=== PATIENT | female | born 1975 | race Caucasian/White ===

== ENCOUNTER 2022-04-11 17:15 | Observation (INO) | payer BC, SELFPAY ==
[2022-04-08 12:44] LABS: Magnesium 2.2 mg/dL (1.6-2.6)
--- NOTE | 2022-04-10 22:09 | PCM.HP.BLA ---
History and Physical Date of Admission: 04/11/22 HISTORY OF PRESENT ILLNESS 46 year old woman presents for evaluation of her breasts after having genetic testing done in 2019.? The testing was done because of a family history of breast cancer (Grandmother and Aunt).? The genes tested were DEISY, BRCA1, BRCA2, CDH1, CHEK2, PALB2, PTEN, and TP53.? The testing was done by [employer] 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 The conclusion was high risk for female breast cancer and elevated risk for pancreatic cancer.? Before deciding on having any surgery to her breasts, she wanted to due her own due diligence.? Then COVID hit.? Earlier this year she was told she was at high risk for ovarian cancer due to this mutation and she underwent removal of both ovaries.? She already had a hysterectomy.? Because of this, she is concerned about getting breast cancer and has developed cancerphobia.? She comes in today to further discuss her genetic testing results and to discuss surgical options for treatment.? Her last mammogram was in May,, in [place].? Patient states it was normal.? It showed very dense breast parenchyma bilaterally.? No obvious mass lesion.? Palpable nodule left breast 2 olock position in subcutaneous tissue such as sebaceous cyst.? Benign, no evidence malignancy.? We have received medical approval for her breast reconstruction surgery.? She has decided on proceeding with bilateral prophylactic mastectomy with prepectoral breast implant reconstruction possible placement saline tissue street railway line installer and acellular dermal matrix graft.? Initially she wanted simple mastectomies which would include the nipple because of the higher risk of developing breast cancer.? After thinking it over, she would like to proceed with subcutaneous mastectomies which would keep the nipples.? Some breast tissue is needed to preserve the blood supply to the nipple.? She would need to get mammograms because of that.? Patient voiced understanding. PAST MEDICAL HISTORY Acquired absence of bilateral breasts and nipples Alcohol use Cancer phobia Disproportion of reconstructed breast Family history of breast cancer Former smoker Frequent headaches Gastric reflux Genetic 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 Migraine headache Monoallelic mutation of DEISY gene Pneumonia Prophylactic ovary removal Ptosis of both breasts Wears contact lenses Wears glasses PAST SURGICAL HISTORY History of bilateral oophorectomy History of bladder surgery History of hysterectomy ALLERGIES Penicillins [PCN] MEDICATIONS ibuprofen omeprazole sumatriptan succinate valacyclovir FAMILY HISTORY Grandmother - Breast cancer Aunt - Breast cancer Father - Diabetes SOCIAL HISTORY Smoking Status:? Former smoker alcohol intake:? current substance use type:? does not use REVIEW OF SYSTEMS General - Denies fever, fatigue, and weight loss. Eyes - Denies cataracts and glaucoma. ENT - Denies nasal congestion and sore throat. Endocrine - Denies excessive thirst and urination.? Has family history of breast cancer (Grandmother and Aunt).? She had genetic testing which showed an abnormal DEISY mutation.? Had hysterectomy and earlier this year, she had bilateral oophorectomy. Skin - Denies suspicious lesions and skin cancer. Musculoskeletal - Denies joint pain, joint stiffness, weakness of muscles and joints, back pain, and arthritis. Neuro - Has headaches. Cardiovascular - Denies chest pain, fatigue, and shortness of breath with exertion. Psych - Denies anxiety and depression. Respiratory - Denies chronic cough and shortness of breath.? Patient is a former smoker. Gastrointestinal - Denies nausea, vomiting, diarrhea.? Has constipation. Hematologic - Denies abnormal bruising and bleeding. Genitourinary - Denies hematuria and urinary frequency. PHYSICAL EXAMINATION General - Alert and Oriented.? Her bra size is 36 D. HEENT - PERRL. EOMI.? Throat is clear. Neck - Supple and nontender.? No cervical adenopathy. Breasts - soft and symmetrical.? No breast masses palpable.? No axillary adenopathy.? She has decreased superior pole fullness bilaterally.? ? Nipple is located at the inframammary fold.? She states the decreased superior pole fullness started after her .? The also decreased her shape as well with decreased projection.? She has pseudoptosis with the breast tissue ptotic but the nipple is not.? The horizontal width of the breasts are 15 cm bilaterally.? The distance from the nipple to the inframammary fold is 8 cm on the left and 7 cm on the right.? She has good skin elasticity.? There are no stretch ferro.? The nipple areolar complex diameter is 5 cm bilaterally. Lungs - Clear to auscultation. Heart - Regular rate and rhythm. Abdomen - Soft and nondistended. Extremities - FROM. No axillary adenopathy.? Radial pulses are palpable. Neuro - CN II-XII grossly intact. Psych - Normal mood and affect. ASSESSMENT 1.? 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 2.? Genetic susceptibility to breast cancer. 3.? Cancer phobia. 4.? Family history of breast cancer. 5.? History of prophylactic bilateral oophorectomy. 6.? Planned acquired absence bilateral breasts and nipples. 7.? Planned disproportion reconstructed breasts. 8.? Planned prophylactic bilateral breast removal. 9.? Pseudoptosis bilateral breasts. 10.? Former smoker. PLAN Genetic testing result reviewed.? It states she is at high risk for developing breast cancer.? High risk is defined as the absolute risk of cancer is approximately 5% or higher and the increase in risk over the general population is approximately 3-fold or higher and there is significant data from multiple studies supporting this cancer risk estimate.? For patients up to age 50 (she is 46), the cancer risk is up to 9% and the cancer risk for the general population is 1.9%.? After her recent prophylactic bilateral oophorectomy, she started to become nervous about the increased risk of developing breast cancer.? This led to her developing cancer phobia. With this degree of high risk severity for developing breast cancer, I recommend prophylactic mastectomy followed by reconstruction.? Prophylactic mastectomy can be either simple or subcutaneous (which includes the nipple).? Because of this high risk, I recommended simple mastectomies.? We can reconstruct her nipples later.? If we leave the nipples there will be more breast tissue preserved to maintain blood supply to the nipple.? Therefore she would still need mammograms and she would still be at higher risk.? Initially she was in agreement to proceed with the simple mastectomies.? After further thought, she has decided to keep the nipples, so would proceed with subcutaneous mastectomies.? She understands that some breast tissue is still present and mammograms would be necessary.? She voiced understanding and wishes to proceed. She is interested in a one stage breast reconstruction if possible. The two stage breast reconstruction is a two stage placement of a saline tissue street railway line installer (smooth) followed by removal of the street railway line installer with replacement cohesive gel implant and placement of acellular dermal matrix graft. The timing for the second procedure is about 3 months.? This option is safer because at the time of the implant replacement, the breast skin flaps have already healed so there is much less risk of a wound healing problem that could lead to exposure of the implant. A single stage placement of a cohesive gel implant is also possible which would be done on top of the muscle (prepectoral position) and covered completely by acellular dermal matrix graft.? The benefit is the patient wakes up with a breast.? She would be flat if a tissue street railway line installer was placed.? For a single stage procedure, we sometimes combine the mastectomy incision into a breast lift incision if there is some ptosis because the nipple is excised with the specimen.? This usually entails a horizontal and vertical incision and the creation of the Tzone.? This is a weak spot that can cause wound healing issues especially if a implant is placed at the same time since in order to have projection, there will be some pressure from the implant on the Tzone area.? One way to minimize this risk is to decide what the best size implant is based on the breast pocket, then go down to the next smallest implant for the final size.? The smaller implant would have less pressure on the Tzone area.? That decision is made in the operating room.? The patient is a D cup and would like to stay as a D cup. ? The mastopexy, if needed, would help to shape the skin around the implant.? However, she is now wishing to keep the nipples with a subcutaneous mastectomy.? Moving the nipple in a breast lift would increase the risk of vascular issues with the nipple.? So during surgery, I will place the biggest sizer that fits the pocket until the maximize size is reached.? If there is good draping of the skin around the implant, then there would be no need for a breast lift as well.? If it appears that there is residual loose skin draping that would benefit from a breast lift, then would proceed with the placement of a saline tissue street railway line installer.? With the expansion, the nipple may elevate enough that? no breast lift would be necessary when the final cohesive gel implant is placed.? A breast lift mastectomy incision removes some loose skin thus making the skin envelope smaller and leading to a less ptotic, perkier breast.? Before surgery, when the patient states her bra size, a lot of that is excess skin filling the bra.? A breast lift makes the breast firmer and elevates the breast giving it better shape and contour.? This sometimes leads to a smaller bra size but a better looking breast.? So at the time of surgery, if the largest implant placed doesn't give her a D cup when she is sat upright, then I would proceed with placement of a saline tissue street railway line installer.? This would expand the skin and breast pocket so a larger implant can be placed after the street railway line installer is removed. She understands that she may or may not wake up with a breast mound.? If a saline tissue street railway line installer is placed, then additional surgery would be necessary to replace the street railway line installer with a cohesive gel implant.? The chance of waking up with a breast mound is higher if the nipple is excised with the mastectomy since there would be no worries about the vascularity of the nipple.? The major change in her decision making is the desire to keep the nipples.? We have received medical approval for the bilateral prophylactic mastectomies followed by reconstruction with prepectoral cohesive gel implants or placement of a saline tissue street railway line installer and subsequent tissue street railway line installer removal with replacement cohesive gel implant.? It is scheduled for 04/11/22. Surgery would be done under general anesthesia with a surgical observation overnight stay in the hospital. She will have drains in for 10-14 days and be maintained on antibiotics until the drains are removed. Tissue that is removed at surgery will be sent to Pathology for analysis to rule out carcinoma. Her last mammogram was done in [place] in May,.? It showed dense breast parenchyma bilaterally.? No obvious mass lesion.? Palpable nodule left breast 2 oclock position in subcutaneous tissue such as sebaceous cyst.? Benign, no evidence malignancy. I thought she was receiving mammograms every 6 months, but it was every 12 months.? Instead she was having PAP smears every 6 months because of abnormal cells. Patient was informed of the risks and complications of the procedure including alternatives to surgery.? These were discussed with the patient personally.? Patient voices understanding and wishes to proceed. Some of the risks and complications were included in a form from the [employer]. Potential risks and complications included but not inclusive of bleeding, infection seroma, hematoma, bruising, swelling, prolonged need for drains, loss of sensation to skin, partial or complete loss of skin flap and/or nipple graft, wound breakdown, need for wound care, poor scarring, poor aesthetic outcome, intra operative cardiac or neurologic events, DVT, PE, and reaction to anesthesia. After further thought, I had another discussion with the patient a few days ago. The patient's biggest priority is one stage procedure. This priority can be more easily achieved if the nipples are removed. Reshaping the breast over the implant is easier especially using a mastopexy type incision for the mastectomy because there is no worry where the nipple is located after the placement of the implant since the nipples would be removed. The breast tissue would be removed from the undersurface of the nipple, and the nipple can be placed back on the breast in the appropriate position as a free nipple graft. The healed nipple graft would look more real because of the texture difference between the smooth skin and the rougher areolar complex. The patient may be interested in the free nipple graft and will let me know the morning of surgery. And if there is some healing discoloration, then intradermal tattooing can be done to help smooth out the coloration. Assessment & Plan Assessment/Plan (1) Monoallelic mutation of DEISY gene: (2) Genetic 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: (3) Cancer phobia: (4) Family history of breast cancer: (5) Prophylactic ovary removal: (6) Acquired absence of bilateral breasts and nipples: (7) Disproportion of reconstructed breast: (8) Prophylactic breast removal: (9) Ptosis of both breasts: (10) Former smoker:
[2022-04-11] VITALS (9 sets, daily range): BP systolic 104–133; BP diastolic 44–76; PULSE 81–106; RESP 16–18; TEMP 36.4–37.3; O2SAT 92–98; BMI 27.3
[2022-04-11] MEDS: Scopolamine 1mg/72hr Patch 1 PATCH TD (06:51)
[2022-04-11] MEDS: Lactated Ringers 1,000 ML 40 ML IV ×3 (06:51→10:36)
[2022-04-11] MEDS: Gabapentin 600 MG Tablet PO (06:52)
[2022-04-11] MEDS: Acetaminophen 500 MG Tablet 1000 MG PO ×2 (06:52→19:05)
[2022-04-11 07:20] LABS: Bedside Glucose 105 mg/dL (74-106)
--- NOTE | 2022-04-11 07:30 | BR_PTH ---
PATIENT: SANG MAIN LOC: MS3 U#:[id number] AGE/SX: 46/F ROOM: [facility] [place] RE04/11/[address]: Dr. Jarret Barrett MD : 1975 BED: 1 DIS: 04/14/2022 SPEC #: [id number] RECD: 04/11/22 19:06 STATUS: RYLAND GREY #: [id number] SHIRA: 04/11/22 07:[address]: Jarret Barrett DEPT: SURGICAL PATHOLOGY RECD BY: Swathi Altman ENTERED: 04/14/22 08:43 SP TYPE: MAMOPLASTY OTHR DR: Dr. Amanda Hyatt MD Tissues: A - Right breast, NOS B - Left breast, NOS Procedures: Surgery Specimen Level V HEADER OPERATION: Prophylactic mastectomy, immediate breast reconstruction PRE-OP DIAGNOSIS: DEISY mutation from breast genetic testing TISSUE SUBMITTED: A ? Right breast tissue, B ? Left breast tissue MICROSCOPIC DIAGNOSIS A. Right breast, partial mastectomy: Involutional change. Mild non-proliferative fibrocystic change. B. Left breast, partial mastectomy: Involutional change. Mild non-proliferative fibrocystic change. Focal benign microcalcifications. AM:daylin 04/15/2022 MICROSCOPIC DESCRIPTION Slides are reviewed. GROSS DESCRIPTION A - Received in fixative is one container labeled with the patient's name and designated right breast tissue. The specimen consists of multiple irregular fragments of bagley-yellow fatty tissue ranging in size from 1 to 18 cm and in aggregate weighing 810 gm. Unremarkable fragments of skin are present on several pieces. Serial sections reveal yellow to white cut surfaces. No distinct mass lesion is identified. Learning Support Assistant sections are submitted in five cassettes. B - Received in fixative is one container labeled with the patient's name and designated left breast tissue. The specimen consists of multiple irregular fragments of bagley-yellow fatty tissue ranging in size from 1 to 12 cm and in aggregate weighing 430 gm. Unremarkable fragments of skin are present on several pieces. Serial sections reveal yellow to white cut surfaces. No distinct mass lesion is identified. Learning Support Assistant sections are submitted in five cassettes. / AM:daylin 04/14/2022 TC:5 CPT: 73485 x2
[2022-04-11] MEDS: Cefazolin 2 GM in 0.9% Normal Saline 100 ML IV (07:44)
[2022-04-11] MEDS: Lidocaine 1% /Epi 1:100 (20ml) 20 ML Vial (08:23)
[2022-04-11] MEDS: Lactated Ringers 1,000 ML 60 ML IV ×2 (16:00→20:26)
[2022-04-11] MEDS: Mupirocin Ointment 22gm Tube 1 APPLIC (16:22)
--- NOTE | 2022-04-11 16:36 | OP.PCM_ITS ---
Problems Associated Problem List Diagnoses (1) Monoallelic mutation of DEISY gene: (2) Genetic 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: (3) Cancer phobia: (4) Family history of breast cancer: (5) Prophylactic ovary removal: (6) Acquired absence of bilateral breasts and nipples: (7) Disproportion of reconstructed breast: (8) Prophylactic breast removal: (9) Ptosis of both breasts: (10) Former smoker: Report of Operation Date of Procedure: 04/11/22 Pre-Operative Diagnosis: 1. 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 2. Genetic susceptibility to breast cancer. 3. Cancer phobia. 4. Family history of breast cancer. 5. History of prophylactic bilateral oophorectomy. 6. Planned acquired absence bilateral breasts and nipples. 7. Planned disproportion reconstructed breasts. 8. Planned prophylactic bilateral breast removal. 9. Pseudoptosis bilateral breasts. 10. Former smoker. Post-Operative Diagnosis: Same. Surgery/Procedure Performed:: 1. Prophylactic mastectomy right breast. 2. Immediate right breast reconstruction with placement prepectoral cohesive gel implant (700 ml) and placement FlexHD acellular dermal matrix graft (23 x 26 cm) and mastopexy. 3. Right nipple reconstruction with placement of free nipple graft. 4. Prophylactic mastectomy left breast. 5. Immediate left breast reconstruction with placement prepectoral cohesive gel implant (700 ml) and placement FlexHD acellular dermal matrix graft (23 x 26 cm) and mastopexy. 6. Left nipple reconstruction with placement of free nipple graft. Description of Surgical Findings:: 46 year old woman presents for evaluation of her breasts after having genetic testing done in 2019.? The testing was done because of a family history of breast cancer (Grandmother and Aunt).? The genes tested were DEISY, BRCA1, BRCA2, CDH1, CHEK2, PALB2, PTEN, and TP53.? The testing was done by [email or web address] 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 The conclusion was high risk for female breast cancer and elevated risk for pancreatic cancer.? Before deciding on having any surgery to her breasts, she wanted to due her own due diligence.? Then COVID hit.? Earlier this year she was told she was at high risk for ovarian cancer due to this mutation and she underwent removal of both ovaries.? She already had a hysterectomy.? Because of this, she is concerned about getting breast cancer and has developed cancerphobia.? She comes in today to further discuss her genetic testing results and to discuss surgical options for treatment.? Her last mammogram was in May,, in [place].? Patient states it was normal.? It showed very dense breast parenchyma bilaterally.? No obvious mass lesion.? Palpable nodule left breast 2 olock position in subcutaneous tissue such as sebaceous cyst.? Benign, no evidence malignancy.? We have received medical approval for her breast reconstruction surgery.? She has decided on proceeding with bilateral prophylactic mastectomy with pre pectoral breast implant reconstruction possible placement saline tissue flexographic press set up operator and acellular dermal matrix graft.? Initially she wanted simple mastectomies which would include the nipple because of the higher risk of developing breast cancer.? After thinking it over, she would like to proceed with subcutaneous mastectomies which would keep the nipples.? Some breast tissue is needed to preserve the blood supply to the nipple.? She would need to get mammograms because of that.? Patient voiced understanding. She understands that if a mastopexy is needed for shape and contour of the breast, then the nipples would be removed with the mastectomy. Free nipple grafts can then be placed. She voiced understanding and wished to proceed. Patient was informed of the risks and complications of the procedure including alternatives to surgery. These were discussed with the patient personally. Patient voices understanding and wishes to proceed. Some of the risks and complications were included in a form from the [employer]. Potential risks and complications included but not inclusive of bleeding, infection, seroma, hematoma, bruising, swelling, prolonged need for drains, loss of sensation to skin, partial or complete loss of skin flap and/or nipple graft, wound breakdown, need for wound care, poor scarring, poor aesthetic outcome, intra operative cardiac or neurologic events, DVT, PE, and reaction to anesthesia. IV Fluids - 3500 ml. Urine Output - 1300 ml. I used [place] MemoryGel Smooth High Profile Xtra Breast Implant, (700 ml). Reference Number - [id number]. Lot Number - [id number]. Serial Number - [id number]. Expiration - September 08, 2023, (in the Right Breast). I used [place] MemoryGel Smooth High Profile Xtra Breast Implant, (700 ml). Reference Number - [id number]. Lot Number - [id number]. Serial Number - [id number]. Expiration - December 28, 2026, (in the Left Breast). I used MTF FlexHD Acellular Dermal Matrix Graft, Pliable PRE, X-Large, Thin (23 x 26 cm, one in each breast) Catalog Number - [id number]. Serial Number - [id number]. Expiration - May 15, 2023, (in the Right Breast). Catalog Number - [id number]. Serial Number - [id number]. Expiration - August 01, 2024, (in the Left Breast). I used AxioFill Placental Connective Tissue Powder, (500 mg x2, one in each breast). Catalog Number - [id number]. Lot Number - [id number]. Expiration - November 14, 2026, (in the Right Breast). Catalog Number - [id number]. Lot Number - [id number]. Expiration - November 14, 2026, (in the Left Breast). I used Maryana absorbable hemostat, (I used 4 vials, 2 in each breast). Reference Number - [id number]. Lot Number - [id number]. Expiration - November 10, 2026, (in the Right Breast). Reference Number - [id number]. Lot Number - [id number]. Expiration - October 10, 2026, (one in the Right Breast and 2 in the Left Breast). Surgeon: Jarret Barrett MD selling specialist: Frank Maher RNFA. selling specialist: Anne-Marie Andino RNFA Type of Anesthesia: General Anesthesiologist: Giancarlo Reece MD and Manuel Fuller MD and Yani Gramajo CRNA Specimen's removed: 1. Left breast tissue to Pathology. 2. Right breast tissue to Pathology. Drains: Anjel x4 (2 in each breast). Estimated Blood Loss (mL): 150. Fluids Replaced: 4800 ml (IV fluids 3500 ml, Urine Output 1300 ml). Description of Procedure: In the preop area, the patient was placed in the sitting position and preoperative markings were made.? The sternum midline was marked down to the umbilicus.? The inframammary folds were marked bilaterally.? The midclavicular line was then marked down to the nipple, then from the nipple to the inframammary fold.?? The patient was then placed in the supine position and taken to the operating room and placed under general anesthesia and her breasts were prepped and draped in usual fashion.? Ioban draping was also used.? SCDs were placed for DVT prophylaxis.? Perioperative antibiotics were given intravenously.? A White catheter was also placed. The preoperative markings were tattooed with Methylene Blue and a 25 gauge needle. Using Xylocaine with epinephrine, the horizontal marking 1 cm above the inframammary folds were infiltrated. I started on the right breast and then went to the left breast. I made an incision into the subcutaneous tissue. Putting the breast skin flap on stretch, I proceeded with the prophylactic mastectomy by dissecting the breast tissue superiorly at the clavicle and medially at the sternum and inferiorly at the inframammary fold and laterally at the anterior axillary line. A small cuff of breast tissue was left underneath the nipple to maintain viability. I then placed an 800 ml [place] Ultra High Profile sizer into the right breast pocket and temporarily sutured the incision with 3-0 Vicryl running suture. I sat the patient up and the right breast showed good shape and contour with the nipple in a good position. The patient was placed back in the supine position. I then proceeded with the prophylactic mastectomy on the left. I made an incision into the subcutaneous tissue. Putting the breast skin flap on stretch, I proceeded with the prophylactic mastectomy by dissecting the breast tissue superiorly at the clavicle and medially at the sternum and inferiorly at the inframammary fold and laterally at the anterior axillary line. A small cuff of breast tissue was left underneath the nipple to maintain viability. I then placed an 800 ml [place] Ultra High Profile sizer into the left breast pocket and temporarily sutured the incision with 3-0 Vicryl running suture. I sat the patient up and the left breast showed more ptosis as the breast pocket was bigger. The left breast looked larger than the right. I then placed a 750 ml [place] Ultra High Profile sizer into the left breast pocket and temporarily sutured the incision with 3-0 Vicryl running suture. The patient was placed in the sitting position again, and the ptosis looked worse with the smaller sizer. It was decided that a mastopexy would be needed on the left breast. The patient was placed back in the supine position and the sizer was removed. A 45 mm template was placed on the nipple and two circular incisions were made around the nipple's edge and around the inner template marking. The nipple was sharply removed from the breast as a full thickness free nipple graft. It was placed in saline. A vertical incision was made down to the horizontal incision. The underlying cuff of breast tissue that was left to supply vascularity to the nipple was then excised and sent with the rest of the left breast to Pathology. I temporarily closed the vertical incision with 3-0 Vicryl interrupted sutures. A 3-0 Vicryl suture was used to secure the medial and lateral breast flaps to the midline of the horizontal incision. The excess skin from the breast flaps were excised and the horizontal incision was then temporarily closed with 3-0 Vicryl simple running suture. Markings were made to aid in wound closure at the end of the procedure. The sutures were removed from the horizontal incision and I first place [place] High Profile sizers and then [place] High Profile Xtra sizers into the left breast pocket and temporarily closed the incision with 3-0 Vicryl suture. Sitting the patient up, the 750 ml sizer was too tight and the 650 ml sizer was a good fit without too much tension. I then tried the 700 ml High Profile Xtra sizer which was also a good fit without too much tension and provi ded slightly more projection. It was decided that the 700 ml High Profile Xtra cohesive gel implant would be used. The High Profile sizers were a little flatter with a little more fullness laterally and slightly less projection. I then went to the right breast to do the mastopexy. A 45 mm template was placed on the nipple and two circular incisions were made around the nipple's edge and around the inner template marking. The nipple was sharply removed from the breast as a full thickness free nipple graft. It was placed in saline. A vertical incision was made down to the horizontal incision. The underlying cuff of breast tissue that was left to supply vascularity to the nipple was then excised and sent with the rest of the right breast to Pathology. I temporarily closed the vertical incision with 3-0 Vicryl interrupted sutures. A 3-0 Vicryl suture was used to secure the medial and lateral breast flaps to the midline of the horizontal incision. The excess skin from the breast flaps were excised and the horizontal incision was then temporarily closed with 3-0 Vicryl simple running suture. Markings were made to aid in wound closure at the end of the procedure. The sutures were removed from the horizontal incision and I placed the 700 ml High Profile Xtra sizer into the right breast and temporarily closed the horizontal incision with 3-0 Vicryl suture. I marked out a vertical pedicle of 5 cm and placed the new location of the nipple with the 45 mm template. The patient was placed in the sitting position. Good breast shape and contour was noted. Good placement of the nipple location was noted. Patient was placed back in supine position. The sutures were removed and the sizers were removed. The breast wounds were irrigated with Irrisept 0.05% Chlorhexidine followed by saline irrigation. Hemostasis was obtained with electrocautery. I sprayed Maryana absorbable hemostat into both breast pockets to minimize seroma formation. I used 2 vials in each breast. I then placed two size 15 Anjel drains into each breast through separate stab incisions laterally and secured to the skin with 3-0 Nylon suture. The vertical incision was then closed with 3-0 Monocryl interrupted sutures. I changed my gloves and the [place] MemoryGel Smooth Round High Profile Xtra breast implant, 700 ml, was placed on the back table and covered with Betadine. The FlexHD acellular dermal matrix graft Pliable PRE, X-Large, Thin, sized 23 x 26 cm was placed on the back table. I covered the implant with the biologic graft and secured with a 3-0 Vicryl purse string suture using a malleable to protect the implant. This was done for both the left breast implant and the right breast implant. I placed the implants back in the Betadine. I placed 3-0 Vicryl sutures in the biologic graft to secure to the chest wall, 4 in each biologic graft. The implant and biologic graft covering were placed in the breast pockets bilaterally in a prepectoral position. The 3-0 Vicryl sutures were then secured to the chest wall inferiorly and laterally. The horizontal incision was then closed by using 2-0 Vicryl from the vertical incision to the midline of the horizontal incision in the deep subcutaneous tissue and Carlyn's fascia for added support. I also placed a few deeper sutures on either side of the Tzone area as well. I then placed AxioFill placental connective tissue powder into the Tzone area of each breast to aid in wound healing. I used 500 mg in each breast. I then closed the deep dermis and subcutaneous tissue with 3-0 Monocryl interrupted sutures. The horizontal incision was then closed with 4-0 V lock unidirectional barbed running subcuticular suture. The vertical incision skin was approximated with 4-0 Prolene simple interrupted sutures. 4-0 Prolene vertical mattress interrupted sutures were also placed next to ther Tzone area on the horizontal incision. Using a vertical limb length of 5 cm, I marked out the new location for the nipple grafts. Incisions were made and the skin was de-epithelialized to maintain a vascular dermal bed for the free nipple grafts. The free nipple grafts were then placed on the dermal beds and secured to the skin edge with 4-0 Chromic simple interrupted sutures. 4-0 Chromic sutures were also used for central quilting stabilization. The needle was placed into the dermal bed superficially under direct visualization. The patient was placed in the sitting position and good shape and contour was noted. Good breast symmetry was noted. No vascular compromise was noted on the breast skin flaps. Good positioning of the nipples were noted. The patient was placed back down in the supine position. Antibiotic ointment was placed on the nipple grafts followed by Xeroform gauze and cotton balls soaked in saline and secured to the skin edge with 4-0 Nylon tie over stent suture dressing. Histoacryl skin tissue adhesive was then placed on the vertical and horizontal incisions. Kerlix gauze was placed on the breasts followed by a surgical bra. Patient tolerated the procedure well and was sent to PACU in satisfactory condition. Patient will be sent upstairs for continued postop care. Grafts/Implants Used: [place] MemoryGel implants x2, FlexHD ADM graft x2, AxioFill x2, Maryana x4 Procedure Start Time: 08:23 Procedure Stop Time: 16:33 Complications None. Admit VTE Documentation VTE Present on Admission: No VTE Mechan Device Prophylaxis: SCD's VTE Pharm Prophylaxis ordered?: Yes Addendum Addendum: Surgery Charges CPT - 32981 ICD-10 - Z15.89, Z15.01, F40.298, Z80.3, Z40.02, Z90.13, N65.1, Z40.01, N64.81, Z87.891 [id number] Z15.89, Z15.01, F40.298, Z80.3, Z40.02, Z90.13, N65.1, Z40.01, N64.81, Z87.891 [id number] Z15.89, Z15.01, F40.298, Z80.3, Z40.02, Z90.13, N65.1, Z40.01, N64.81, Z87.891 [id number] Z15.89, Z15.01, F40.298, Z80.3, Z40.02, Z90.13, N65.1, Z40.01, N64.81, Z87.891 13773 Z15.89, Z15.01, F40.298, Z80.3, Z40.02, Z90.13, N65.1, Z40.01, N64.81, Z87.891 [id number] Z15.89, Z15.01, F40.298, Z80.3, Z40.02, Z90.13, N65.1, Z40.01, N64.81, Z87.891 [id number] Z15.89, Z15.01, F40.298, Z80.3, Z40.02, Z90.13, N65.1, Z40.01, N64.81, Z87.891 [id number] Z15.89, Z15.01, F40.298, Z80.3, Z40.02, Z90.13, N65.1, Z40.01, N64.81, Z87.891
[2022-04-11] MEDS: oxyCODONE 5 MG Tablet PO (20:52)
[2022-04-11] MEDS: Cefazolin 1 GM/50 ML BAG IV (20:53)
[2022-04-11] MEDS: Acyclovir 200 MG Capsule 400 MG PO (20:53)
[2022-04-11] MEDS: Docusate Sodium 100 MG Capsule PO (20:53)
[2022-04-11] MEDS: Heparin Injection (Vial) 5,000 UNIT/ML VIAL 5000 UNIT SC (20:53)
[2022-04-12] VITALS (8 sets, daily range): BP systolic 95–126; BP diastolic 53–75; PULSE 61–93; RESP 14–18; TEMP 36.8–37.3; O2SAT 94–98
[2022-04-12] MEDS: Acetaminophen 500 MG Tablet 1000 MG PO ×5 (00:22→23:38)
[2022-04-12] MEDS: Cefazolin 1 GM/50 ML BAG IV ×3 (05:36→22:29)
[2022-04-12 06:51] LABS: Hematocrit 28.7 % (37-47); Hemoglobin 9.4 g/dL (12.0-15.0); Mean Corp Hgb Conc 32.8 g/dL (32-36); Mean Corpuscular Hgb 32.2 pg (27.0-32.0); Mean Corpuscular Volume 98.3 fL (81-99); Mean Platelet Vol. 10.3 fl (6.2-12.0); Platelet Count 158 K/mm3 (150-450); RBC Distribution Width CV 12.9 % (11.6-14.6); RBC Distribution Width SD 46.1 fl (35.1-43.9); Red Blood Count 2.92 M/mm3 (4.2-5.4)
[2022-04-12] MEDS: oxyCODONE 5 MG Tablet PO ×3 (07:40→16:19)
[2022-04-12] MEDS: Gabapentin 100 MG Capsule 200 MG PO ×3 (08:23→16:19)
[2022-04-12] MEDS: Acyclovir 200 MG Capsule 400 MG PO ×2 (08:23→21:03)
[2022-04-12] MEDS: Docusate Sodium 100 MG Capsule PO ×2 (08:23→21:03)
[2022-04-12] MEDS: Pantoprazole Sodium 40 MG Tablet PO (08:23)
[2022-04-12] MEDS: Heparin Injection (Vial) 5,000 UNIT/ML VIAL 5000 UNIT SC ×2 (08:24→21:02)
[2022-04-12] MEDS: Ensure Surgery 237 ML LIQUID PO ×3 (08:25→16:24)
[2022-04-12 08:35] LABS: Anion Gap 4 (5-15); BUN 10 mg/dL (7-18); BUN/Creat Ratio 13.3 RATIO (10-20); Calcium,Total 8.4 mg/dL (8.5-10.1); Chloride 108 mmol/L (98-107); Creatinine, Serum 0.75 mg/dL (0.55-1.02); EST Glomerular Filtration Rate 87 mL/min (>60); Est Glom Filt Rate - Afr Amer 106 mL/min (>60); Estimated Creatinine Clearance 85.88 ml/min; Glucose 123 mg/dL (74-106); Potassium 4.1 mmol/L (3.5-5.1); Prealbumin 18.4 mg/dL (20.0-40.0); Sodium Level 143 mmol/L (136-145)
[2022-04-12] MEDS: Lactated Ringers 1,000 ML 60 ML IV (14:07)
[2022-04-12] MEDS: diazePAM 5 MG Tablet PO (16:19)
--- NOTE | 2022-04-12 20:24 | PCM.PN.SRG ---
Subjective Subjective Postop #1 Patient has incisional pain. White catheter was removed. She is voiding without difficulty. Objective Data Objective Data Vital Signs: Vital Signs Temp Pulse Resp BP Pulse Ox O2 Del Method O2 Flow Rate 98.2 F 82 18 126/75 H 95 Nasal Cannula 3 04/12/22 16:35 04/12/22 16:35 04/12/22 16:35 04/12/22 16:35 04/12/22 16:35 04/12/22 16:35 04/12/22 16:35 Oxygen Flow Rate (L/min) 3 Oxygen Delivery Method Nasal Cannula Weight: 169 lb 12.095 oz Body Mass Index (BMI) 27.3 Intake & Output: Intake and Output for Last 24 Hours 04/10/22 04/11/22 04/12/22 23:59 23:59 23:59 Intake Total 3442 / 3442 1800 / 1800 Output Total 1650 / 2415 1582 / 1582 Balance 1792 / 1027 218 / 218 Drainage 130 ml yesterday, 60 ml today. Prealbumin is 18.4. Encourage nutritional supplementation with protein to help the healing process. Lab / Micro Data Attestation: I reviewed the patient's lab results. Result Diagrams: 04/12/22 06:30 04/12/22 06:30 Labs: Laboratory Results - last 24 hr 04/12/22 06:30: WBC 10.0, RBC 2.92 L, Hgb 9.4 L, Hct 28.7 L, MCV 98.3, MCH 32.2 H, MCHC 32.8, RDW Std Deviation 46.1 H, RDW Coeff of Khushi 12.9, Plt Count 158, MPV 10.3 04/12/22 06:30: Sodium 143, Potassium 4.1, Chloride 108 H, Carbon Dioxide 31.0, Anion Gap 4 L, BUN 10, Creatinine 0.75, Estim Creat Clear Calc 85.88, Est GFR (MDRD) Af Amer 106, Est GFR (MDRD) Non-Af 87, BUN/Creatinine Ratio 13.3, Glucose 123 H, Calcium 8.4 L, Prealbumin 18.4 L Physical Exam Narrative General - Alert and Oriented HEENT - PERRL. EOMI. Neck - Supple and nontender. Breasts - Incisions are dry and intact. Breasts are symmetrical. No vascular compromise on the breast skin flaps. No clinical evidence of hematoma. Abdomen - Soft and nondistended. Neuro - CN II-XII grossly intact. Psych - Normal mood and affect. Assessment & Plan Assessment/Plan (1) Monoallelic mutation of DEISY gene: (2) Genetic 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: (3) Cancer phobia: (4) History of bilateral oophorectomy: (5) Acquired absence of bilateral breasts and nipples: (6) Disproportion of reconstructed breast: (7) Prophylactic breast removal: (8) Acute postoperative anemia due to expected blood loss: (9) Ptosis of both breasts: (10) Family history of breast cancer: (11) Former smoker: PLAN: Plan Patient has incisional pain. Breasts are symmetrical. No clinical evidence of hematoma. Incisions are dry and intact. Hgb is 9.4. She has anemia due to expected blood loss. Had 150 ml operative blood loss. Also has IV fluid dilution with I's/O's positive 2 liters. Will recheck a Hgb. Will start Iron supplementation. Prealbumin 18.4. Encourage nutritional supplementation with protein to help the healing process. White was removed. She is voiding without difficulty. Still needs occasional IV analgesia. Will have her stay another day until she is tolerating po analgesia. Ambulate with assist.
[2022-04-12] MEDS: HYDROmorphone 1 MG/ML Syringe IV (21:03)
[2022-04-13 04:00] VITALS: BP 120/57; PULSE 93; RESP 16; TEMP 37.2; O2SAT 92
[2022-04-13] MEDS: oxyCODONE 5 MG Tablet PO ×2 (04:24→08:33)
[2022-04-13] MEDS: Lactated Ringers 1,000 ML 40 ML IV (04:25)
[2022-04-13] MEDS: Ondansetron ODT 4 MG Tablet PO ×2 (04:48→12:43)
[2022-04-13] MEDS: Acetaminophen 500 MG Tablet 1000 MG PO ×3 (05:00→18:41)
[2022-04-13] MEDS: Cefazolin 1 GM/50 ML BAG IV ×3 (05:00→20:30)
[2022-04-13 07:45] VITALS: O2SAT 93
[2022-04-13] MEDS: Gabapentin 100 MG Capsule 200 MG PO ×3 (08:01→18:40)
[2022-04-13] MEDS: Ensure Surgery 237 ML LIQUID PO ×2 (08:01→12:10)
[2022-04-13] MEDS: Pantoprazole Sodium 40 MG Tablet PO (08:01)
[2022-04-13] MEDS: Acyclovir 200 MG Capsule 400 MG PO ×2 (08:01→21:38)
[2022-04-13] MEDS: Docusate Sodium 100 MG Capsule PO ×2 (08:02→21:38)
[2022-04-13] MEDS: Heparin Injection (Vial) 5,000 UNIT/ML VIAL 5000 UNIT SC ×2 (08:02→21:38)
[2022-04-13 10:00] VITALS: BP 113/55; PULSE 90; RESP 18; TEMP 36.6; O2SAT 96
--- NOTE | 2022-04-13 13:01 | NURSING ---
pt nauseated given zofran. pt had approx. 200 mls emesis about 5 min after taking zofran.
[2022-04-13] MEDS: 0.9% Saline Lock 10 ML Syringe IV ×2 (13:04→17:48)
[2022-04-13] MEDS: HYDROmorphone 1 MG/ML Syringe IV ×2 (13:05→18:36)
[2022-04-13 17:30] VITALS: BP 130/70; PULSE 90; RESP 18; TEMP 37.1; O2SAT 94
[2022-04-13] MEDS: proCHLORPERazine 10 MG/2 ML Vial IV (17:48)
[2022-04-13] MEDS: Rizatriptan Benzoate 10 MG Tablet PO (18:43)
[2022-04-13 20:19] VITALS: BP 106/57; PULSE 71; RESP 16; TEMP 37.1; O2SAT 95
[2022-04-13 20:37] VITALS: O2SAT 95
--- NOTE | 2022-04-13 20:38 | PN.SURG_ITS ---
Subjective Subjective Postop #2 Patient having some nausea and vomiting today. Also has a headache. Objective Data Objective Data Vital Signs: Vital Signs Temp Pulse Resp BP Pulse Ox O2 Del Method O2 Flow Rate 98.7 F 71 16 106/57 L 95 Nasal Cannula 2 04/13/22 20:19 04/13/22 20:19 04/13/22 20:19 04/13/22 20:19 04/13/22 20:19 04/13/22 20:19 04/13/22 20:19 Oxygen Flow Rate (L/min) 2 Oxygen Delivery Method Nasal Cannula Weight: 169 lb 12.095 oz Body Mass Index (BMI) 27.3 Intake & Output: Intake and Output for Last 24 Hours 04/11/22 04/12/22 04/13/22 23:59 23:59 23:59 Intake Total 3442 / 3442 1850 / 2110 1958 / 1958 Output Total 1650 / 2415 1612 / 1642 115 / 115 DrBalance 1792 / 1027 238 / 468 1844 / 1844 Drainage 247 ml yesterday, 115 ml today Lab / Micro Data Attestation: I reviewed the patient's lab results. Result Diagrams: 04/12/22 06:30 04/12/22 06:30 Physical Exam Narrative General - Alert and Oriented. HEENT - PERRL. EOMI. Neck - Supple and nontender. Breasts - Incisions are dry and intact. Breasts are symmetrical. No clinical evidence of hematoma. No vascular compromise noted on the breast skin flaps. Abdomen - Soft and nondistended. Neuro - CN II-XII grossly intact. Psych - Normal mood and affect. Assessment & Plan Assessment/Plan (1) Monoallelic mutation of DEISY gene: (2) Genetic 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: (3) Cancer phobia: (4) Acquired absence of bilateral breasts and nipples: (5) Disproportion of reconstructed breast: (6) Ptosis of both breasts: (7) Acute postoperative anemia due to expected blood loss: (8) Prophylactic breast removal: (9) Family history of breast cancer: (10) Former smoker: (11) History of bilateral oophorectomy: (12) PONV (postoperative nausea and vomiting): PLAN: Plan Patient having postop nausea and vomiting today. Will add Compazine IV along with Zofran IV if necessary. Breasts are symmetrical. Incisions are dry and intact. No clinical evidence of hematoma. No vascular compromise noted on the breast skin flaps. Hgb is 9.4. She has anemia due to expected blood loss. Had 150 ml operative blood loss. Also has IV Fluid dilution with I's/O's positive 3.8 liters. Will recheck a Hgb in the morning. On Iron supplementation. Prealbumin was 18.4. Encourage nutritional supplementation with protein to help the healing process. Will keep her one more day to get her PONV under better control with po anti- emetics. She takes Imitrex at home for her headaches. Will order a triptan equivalent. Ambulate with assist.
[2022-04-14] MEDS: Acetaminophen 500 MG Tablet 1000 MG PO ×3 (00:09→11:46)
[2022-04-14] MEDS: oxyCODONE 5 MG Tablet PO ×3 (00:11→16:13)
[2022-04-14 02:19] VITALS: BP 105/66; PULSE 64; RESP 16; TEMP 36.8; O2SAT 96
[2022-04-14] MEDS: HYDROmorphone 1 MG/ML Syringe IV (04:24)
[2022-04-14] MEDS: Lactated Ringers 1,000 ML 40 ML IV (04:28)
[2022-04-14] MEDS: Cefazolin 1 GM/50 ML BAG IV ×2 (04:55→14:09)
[2022-04-14] MEDS: Gabapentin 100 MG Capsule 200 MG PO ×3 (07:40→17:01)
[2022-04-14] MEDS: Ensure Surgery 237 ML LIQUID PO ×3 (07:42→17:00)
[2022-04-14 08:01] VITALS: BP 93/48; PULSE 68; RESP 18; TEMP 36.8; O2SAT 97
[2022-04-14] MEDS: Docusate Sodium 100 MG Capsule PO (09:09)
[2022-04-14] MEDS: Acyclovir 200 MG Capsule 400 MG PO (09:10)
[2022-04-14] MEDS: Pantoprazole Sodium 40 MG Tablet PO (09:10)
[2022-04-14] MEDS: Heparin Injection (Vial) 5,000 UNIT/ML VIAL 5000 UNIT SC (09:10)
[2022-04-14 11:21] LABS: Hematocrit 27.7 % (37-47); Hemoglobin 8.6 g/dL (12.0-15.0); Mean Corpuscular Hgb 31.6 pg (27.0-32.0); Mean Corpuscular Volume 101.8 fL (81-99); Mean Platelet Vol. 9.9 fl (6.2-12.0); Platelet Count 156 K/mm3 (150-450); RBC Distribution Width CV 12.6 % (11.6-14.6); Red Blood Count 2.72 M/mm3 (4.2-5.4); White Blood Count 6.5 K/mm3 (4.4-11.0)
[2022-04-14 11:25] LABS: Scan Indicated on CBC? Y/N NO
[2022-04-14 11:41] LABS: Anion Gap 3 (5-15); BUN 13 mg/dL (7-18); BUN/Creat Ratio 19.1 RATIO (10-20); Calcium,Total 8.6 mg/dL (8.5-10.1); Chloride 105 mmol/L (98-107); Creatinine, Serum 0.68 mg/dL (0.55-1.02); EST Glomerular Filtration Rate 98 mL/min (>60); Est Glom Filt Rate - Afr Amer 119 mL/min (>60); Estimated Creatinine Clearance 94.72 ml/min; Glucose 171 mg/dL (74-106); Potassium 4.2 mmol/L (3.5-5.1); Sodium Level 141 mmol/L (136-145)
[2022-04-14] MEDS: Iron Polysaccharide Complex 150 MG CAPSULE PO (11:46)
[2022-04-14 14:06] VITALS: BP 108/46; PULSE 75; RESP 18; TEMP 36.9; O2SAT 95
--- NOTE | 2022-04-14 15:47 | CHAPLAIN ---
Type of Pastoral Visit _x__ Initial Visit ___ Follow-up Visit ___ On-call Visit ___ General Patient Visit ___ Spiritual Assessment ___ Family Conference ___ Bereavement ___ Rapid Response ___ Code Blue ___ Other (describe below) Pastoral Care Referral From _x__ Patient ___ Family ___ Nurse ___ Physician ___ Telephony Engineer ___ Back Wedger ___ Other (describe below) Sacrament/Intervention _x__ Active listening ___ Anointing ___ Jew ___ Bereavement ___ Communion ___ Gracie exploration ___ ___ Life review _x__ Prayer ___ Reconciliation ___ Sacrament of Sick ___ Supportive presence ___ Wedding ___ Other (describe below) Pastoral Comments patient states she is starting to feel better; pt has support from a man with unknown relationship to pt; pt states that I am Synagogue but don't have a particular druze and welcomes a prayer with we all can use a prayer; pt goal is to get through recovery and states she has no other worries at this time
--- NOTE | 2022-04-14 16:36 | DCINST_ITS ---
Discharge Instructions Diet Discharge Diet: No restrictions Activity Discharge Activity: May Not Drive May resume sexual activity in: 10-14 days Dressing / Incision Call your doctor if your incision/area has: Continuous Slow Oozing, Sudden Increased Bleeding, Increased Pain/ Swelling, Increased Redness, Foul Smelling Discharge and Swelling at the incision site Call your doctor if you observe: Fever of 101 or Higher, Inability to urinate, Inability to have a bowel movement, Shortness of breath, Dizziness, Chest pain, Calf discomfort and Uncontrolled pain Change Dressing in: do not change dressing Remove Dressing in: do not remove dressing Drain: Suction Additional Dressing/Incision Instructions:: Keep track of drainage from drains and bring into office Follow Up Care Please Follow Up With: Jarret Barrett MD When: Thursday04/15/22 at 4:00 pm at [facility] [phone]. Test Results: Test results from this visit will be discussed in further detail at your follow- up appointment, if applicable. Discharge Plan Admission Admit Date/Time: 04/11/22 17:15 Primary Reason for Your Visit: bilateral prophylactic mastectomy with reconstruction Attending Provider: Jarret Barrett Primary Care Provider: Amanda Hyatt Discharge Orders/Prescriptions Prescriptions: New polysaccharide iron complex [Ferrex 150] 150 mg iron Capsule 150 mg PO DAILY 30 Days Qty: 30 1RF docusate sodium [Colace] 100 mg capsule 100 mg PO DAILY 30 Days Qty: 30 0RF ondansetron 4 mg tablet,disintegrating 4 mg PO Q8H PRN (Reason: nausea and vomiting) 5 Days Qty: 15 0RF oxycodone-acetaminophen [Percocet] 5-325 mg tablet 1 tab PO Q4H PRN (Reason: pain (scale score 7-10)) 7 Days Qty: 40 0RF diazepam [Valium] 5 mg tablet 5 mg PO BID PRN (Reason: muscle spasm) 7 Days Qty: 14 0RF cefadroxil 500 mg capsule 500 mg PO BID 14 Days Qty: 28 0RF L.acidoph,saliva-B.bif-S.therm [Acidophilus Probiotic Blend] 175 mg capsule 1 cap PO DAILY 14 Days Qty: 14 0RF Continued ibuprofen 800 mg tablet 800 mg PO Q12H PRN PRN (Reason: Migraine Headache) Label Comments: TAKE 1 TABLET BY MOUTH THREE TIMES A DAY NEEDED sumatriptan succinate 100 mg tablet 100 mg PO PRN PRN (Reason: MIGRAINE) Label Comments: TAKE 1 TABLET FOR MIGRAINE RELIEF. MAY REPEAT 2 HOURS LATER. MAXIMUM 200MG/DAY. valacyclovir 500 mg tablet 500 mg PO DAILY Label Comments: TAKE 1 TABLET BY MOUTH EVERY DAY omeprazole 40 mg capsule,delayed release(DR/EC) 40 mg PO DAILY Label Comments: TAKE 1 CAPSULE BY MOUTH EVERY DAY Referrals / Follow Up: Amanda Hyatt MD [Primary Care Provider] - Disposition Disposition (needs filled in before D/C Order can be placed): Home, Self Care
--- NOTE | 2022-04-14 19:26 | PCM.DC.SUM ---
Providers Date of Admission: 04/11/22 Date of Discharge: 04/14/22 Primary Care Physician: Dr. 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 Code(s): Z15.89 - Genetic susceptibility to other disease; Z15.01 - Genetic 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; Z15.09 - Genetic susceptibility to other malignant neoplasm (2) 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 Code(s): Z15.01 - Genetic 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 (3) Cancer phobia: Status: Chronic Code(s): F40.298 - Other specified phobia (4) Acquired absence of bilateral breasts and nipples: Status: Acute Code(s): Z90.13 - Acquired absence of bilateral breasts and nipples (5) Disproportion of reconstructed breast: Status: Acute Code(s): N65.1 - Disproportion of reconstructed breast (6) Ptosis of both breasts: Status: Chronic Code(s): N64.81 - Ptosis of breast (7) Acute postoperative anemia due to expected blood loss: Status: Acute Code(s): D62 - Acute posthemorrhagic anemia (8) Prophylactic breast removal: Status: Acute Code(s): Z40.01 - Encounter for prophylactic removal of breast (9) Family history of breast cancer: Status: Chronic Code(s): Z80.3 - Family history of malignant neoplasm of breast (10) Former smoker: Status: Chronic Code(s): Z87.891 - Personal history of nicotine dependence (11) History of bilateral oophorectomy: Status: Chronic Code(s): Z90.722 - Acquired absence of ovaries, bilateral (12) PONV (postoperative nausea and vomiting): Status: Resolved Code(s): R11.2 - Nausea with vomiting, unspecified; Z98.890 - Other specified postprocedural states Medications at Discharge Home Medications ibuprofen 800 mg tablet 800 mg PO Q12H PRN PRN Migraine Headache 03/28/22 omeprazole 40 mg capsule,delayed release 40 mg PO DAILY 03/28/22 sumatriptan succinate 100 mg tablet 100 mg PO PRN PRN MIGRAINE 03/28/22 valacyclovir 500 mg tablet 500 mg PO DAILY 03/28/22 L.acidophil,salivari-Bifido bifidum-Strep thermoph 175 mg capsule (Acidophilus Probiotic Blend) 1 cap PO DAILY 14 days #14 caps 04/14/22 cefadroxil 500 mg capsule 500 mg PO BID 14 days #28 caps 04/14/22 diazepam 5 mg tablet (Valium) 5 mg PO BID PRN muscle spasm 7 days #14 tabs 04/14/22 docusate sodium 100 mg capsule (Colace) 100 mg PO DAILY 30 days #30 caps 04/14/22 ondansetron 4 mg disintegrating tablet 4 mg PO Q8H PRN nausea and vomiting 5 days #15 tabs 04/14/22 oxycodone-acetaminophen 5 mg-325 mg tablet (Percocet) 1 tab PO Q4H PRN pain (scale score 7-10) 7 days #40 tabs 04/14/22 polysaccharide iron complex 150 mg iron capsule (Ferrex) 150 mg PO DAILY 30 days #30 caps 04/14/22 Hospital Course Operations - (04/11/22 - 1. Prophylactic mastectomy right breast. 2. Immediate right breast reconstruction with placement prepectoral cohesive gel implant (700 ml) and placement FlexHD acellular dermal matrix graft (23 x 26 cm) and mastopexy. 3. Right nipple reconstruction with placement of free nipple graft. 4) Procedures None Summary of Care Provided Minutes Spent on Discharge: 35 Hospital Course: 46 year old woman presents for evaluation of her breasts after having genetic testing done in 2019.? The testing was done because of a family history of breast cancer (Grandmother and Aunt).? The genes tested were DEISY, BRCA1, BRCA2, CDH1, CHEK2, PALB2, PTEN, and TP53.? The testing was done by [employer] 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 The conclusion was high risk for female breast cancer and elevated risk for pancreatic cancer.? Before deciding on having any surgery to her breasts, she wanted to due her own due diligence.? Then COVID hit.? Earlier this year she was told she was at high risk for ovarian cancer due to this mutation and she underwent removal of both ovaries.? She already had a hysterectomy.? Because of this, she is concerned about getting breast cancer and has developed cancerphobia.? She comes in today to further discuss her genetic testing results and to discuss surgical options for treatment.? Her last mammogram was in May,, in [place].? Patient states it was normal.? It showed very dense breast parenchyma bilaterally.? No obvious mass lesion.? Palpable nodule left breast 2 olock position in subcutaneous tissue such as sebaceous cyst.? Benign, no evidence malignancy.? We have received medical approval for her breast reconstruction surgery.? She has decided on proceeding with bilateral prophylactic mastectomy with prepectoral breast implant reconstruction possible placement saline tissue pressure testing technician and acellular dermal matrix graft.? Initially she wanted simple mastectomies which would include the nipple because of the higher risk of developing breast cancer.? After thinking it over, she would like to proceed with subcutaneous mastectomies which would keep the nipples.? Some breast tissue is needed to preserve the blood supply to the nipple.? She would need to get mammograms because of that.? Patient voiced understanding. After further discussion with the patient, if a breast lift becomes necessary because of nipple placement too low and loose skin inferiorly, then would proceed with mastectomy including the nipple. We can then put the nipples back on as a free nipple graft after determining the best placement for the nipple graft after the implants have been placed. She is aware of that possibility and wished to proceed. On 04/11/22, the patient was taken to the operating room where she underwent prophylactic mastectomy right breast and immediate right breast reconstruction with placement prepectoral cohesive gel implant (700 ml) and placement FlexHD acellular dermal matrix graft (23 x 26 cm) and mastopexy and right nipple reconstruction with placement of free nipple graft. She also underwent prophylactic mastectomy left breast and immediate left breast reconstruction with placement prepectoral cohesive gel implant (700 ml) and placement FlexHD acellular dermal matrix graft (23 x 26 cm) and mastopexy and left nipple reconstruction with placement of free nipple graft. She tolerated the procedure well. On the first postoperative day, she had incisional pain and still needed IV analgesia. Her breasts were soft and symmetrical during her hospital stay. There was no clinical evidence of hematoma. There was no vascular compromise with the breast skin flaps except for a small area (about 1 cm) of epidermolysis just beneath the nipple on the right. The underlying dermis appeared healthy. Antibiotic ointment was applied. The Tzones were intact during her hospital stay. We kept her one more day in order to wean to po analgesia in preparation for discharge. On the second postoperative day, patient had postop nausea and vomiting (PONV). The oral antiemetics were not effective, and we changed to IV dose. I think what triggered the PONV was developing a headache probably from the IV Dilaudid. She has a history of migraines and this then triggered the PONV. She was given Maxalt for her headache and the PONV resolved. Because of the PONV, she stayed one more day and on the third postoperative day, she felt much better. Her drainage from her Anjel drains ranged from 312 ml on the first day to 58 ml at discharge. Hgb was 9.4 after surgery and decreased to 8.6 at discharge. She had anemia due to expected blood loss. Her operative blood loss was 150 ml. She also had IV fluid dilution as well. She was started on Iron supplementation. Will recheck another Hgb after discharge in a week. Prealbumin was 18.4 after surgery. Encouraged nutritional supplementation with protein to help the healing process. On the third postoperative day, she felt better with no more nausea and vomiting. She was stable on her feet with ambulation. She was discharged home in satisfactory condition. She will apply dry dressings every day or every other day. Will apply antibiotic ointment to the small area of epidermolysis just beneath the nipple on the right breast. She will followup on 04/15/22 to remove the free nipple graft dressings. Drains will be removed in 10-14 days. She will be able to shower after the drains are removed. Scripts were written for Cefadroxil and Acidophilus Probiotic, Percocet for pain (40 tabs), Valium for spasm (14 tabs), and Zofran for nausea, and Colace for constipation, and Iron supplementation. She will have repeat CBC in one week after discharge. Physical Exam Narrative General - Alert and Oriented. Feeling much better with the IV antiemetic and the migraine medication, Maxalt. HEENT - PERRL. EOMI. Neck - Supple and nontender. Breasts - Symmetrical. Good shape and contour. Incisions dry and intact. No clinical evidence of hematoma. No vascular compromise noted on the breast skin flaps except for small area (1cm) of epidermolysis just beneath the nipple on the right breast. The underlying dermis appears healthy. Abdomen - Soft and nondistended. Neuro - CN II-XII grossly intact. Psych - Normal mood and affect. Weight / BMI Weight Weight: 169 lb 12.095 oz Body Mass Index (BMI) 27.3 ABG / Lab / Microbiology Data Attestation: I reviewed the patient's lab results. Results Narrative: Patient will be discharged on Iron supplement. Will recheck a Hgb in the office in a week. Result Diagrams: 04/14/22 11:07 04/14/22 11:07 Laboratory: Laboratory Results - last 24 hr 04/14/22 11:07: WBC 6.5, RBC 2.72 L, Hgb 8.6 L, Hct 27.7 L, MCV 101.8 H, MCH 31.6, MCHC 31.0 L D, RDW Std Deviation 47.0 H, RDW Coeff of Khushi 12.6, Plt Count 156, MPV 9.9 04/14/22 11:07: Sodium 141, Potassium 4.2, Chloride 105, Carbon Dioxide 33.0 H, Anion Gap 3 L, BUN 13, Creatinine 0.68, Estim Creat Clear Calc 94.72, Est GFR (MDRD) Af Amer 119, Est GFR (MDRD) Non-Af 98, BUN/Creatinine Ratio 19.1, Glucose 171 H, Calcium 8.6 D/C Instructions Discharge Diet: No restrictions Discharge Activity: May Not Shower (until the drains are removed.) May shower in (days): 14 (after the drains are removed.) May resume sexual activity in: 10-14 days Weight Bearing Status: Weight bearing as tolerated Lifting Restricted to (Lbs): 20 Keep extremity elevated above heart level: - (elevate head.) Call your doctor if your incision/area has: Continuous Slow Oozing, Sudden Increased Bleeding, Increased Pain/ Swelling, Increased Redness, Foul Smelling Discharge and Swelling at the incision site Call your doctor if you observe: Fever of 101 or Higher, Inability to urinate, Inability to have a bowel movement, Shortness of breath, Dizziness, Chest pain, Calf discomfort and Uncontrolled pain Change Dressing in: 2 days (dry dressings every day or every other day.) Cleanse incision/area with: Keep Dressing Clean & Dry (may get incisions wet in the shower after the drains are removed.) Drain: Suction (Anjel drains x4 to bulb suction. Empty and record output daily.) Additional Dressing/Incision Instructions: Keep track of drainage from drains and bring into office Please Follow Up With: Jarret Barrett MD When: Thursday04/15/22 at 4:00 pm at [facility] [phone]. Meaningful Use Info Meaningful Use Diagnoses (Choose all that apply): None applicable Discharge Plan Admission Admit Date/Time: 04/11/22 17:15 Primary Reason for Your Visit: bilateral prophylactic mastectomy with reconstruction Attending Provider: Jarret Barrett Primary Care Provider: Amanda Hyatt Discharge Orders/Prescriptions Prescriptions: New polysaccharide iron complex [Ferrex 150] 150 mg iron Capsule 150 mg PO DAILY 30 Days Qty: 30 1RF docusate sodium [Colace] 100 mg capsule 100 mg PO DAILY 30 Days Qty: 30 0RF ondansetron 4 mg tablet,disintegrating 4 mg PO Q8H PRN (Reason: nausea and vomiting) 5 Days Qty: 15 0RF oxycodone-acetaminophen [Percocet] 5-325 mg tablet 1 tab PO Q4H PRN (Reason: pain (scale score 7-10)) 7 Days Qty: 40 0RF diazepam [Valium] 5 mg tablet 5 mg PO BID PRN (Reason: muscle spasm) 7 Days Qty: 14 0RF cefadroxil 500 mg capsule 500 mg PO BID 14 Days Qty: 28 0RF L.acidoph,saliva-B.bif-S.therm [Acidophilus Probiotic Blend] 175 mg capsule 1 cap PO DAILY 14 Days Qty: 14 0RF Continued ibuprofen 800 mg tablet 800 mg PO Q12H PRN PRN (Reason: Migraine Headache) Label Comments: TAKE 1 TABLET BY MOUTH THREE TIMES A DAY NEEDED sumatriptan succinate 100 mg tablet 100 mg PO PRN PRN (Reason: MIGRAINE) Label Comments: TAKE 1 TABLET FOR MIGRAINE RELIEF. MAY REPEAT 2 HOURS LATER. MAXIMUM 200MG/DAY. valacyclovir 500 mg tablet 500 mg PO DAILY Label Comments: TAKE 1 TABLET BY MOUTH EVERY DAY omeprazole 40 mg capsule,delayed release(DR/EC) 40 mg PO DAILY Label Comments: TAKE 1 CAPSULE BY MOUTH EVERY DAY Other Ambulatory Orders: CBC-Complete Blood Cnt No Diff (Routine) Timeframe: 1 Week Facility: [facility] - Location: Laboratory Ordered By: Dr. Jarret Barrett Referrals / Follow Up: Jarret Barrett MD [Med Staff - Active Staff] - (followup tomorrow 04/15/22) Amanda Hyatt MD [Primary Care Provider] - Disposition Disposition (needs filled in before D/C Order can be placed): Home, Self Care
== END 2022-04-14 18:10 | disposition home or self-care (01) ==
LOC: SDC 17:57 → MS3 17:57
PROVIDERS: Anesthesiology; Admitting Provider Surgery; PCP Family Medicine; Referring Provider Surgery; Visit Provider Surgery
PROC: (CPT 19303; principal; 2022-04-11 07:10)
DX: Z40.01 Encounter for prophylactic removal of breast (principal); R11.2 Nausea with vomiting, unspecified; Z87.891 Personal history of nicotine dependence; Z15.01 Genetic susceptibility to malignant neoplasm of breast; N64.81 Ptosis of breast; Z90.722 Acquired absence of ovaries, bilateral; R51.9 Headache, unspecified; Z15.89 Genetic susceptibility to other disease; Z15.09 Genetic susceptibility to other malignant neoplasm; F40.298 Other specified phobia; N65.1 Disproportion of reconstructed breast
CPT/HCPCS: 19303; 19316; 15777; 19340; 36415; 80048; 82962; 83735; 84134; 85027; 88305; 88307; 94668; 94762; 96365; 96366; 96372; 96375; 96376; 99221; 99252; J7120; A4216; G0378; G0463; J2405; J3475; Q9968

== ENCOUNTER → 2022-04-23 | Outpatient (CLI) | payer BC, SELFPAY ==
[2022-04-23 15:37] LABS: Hematocrit 34.9 % (37-47); Hemoglobin 11.5 g/dL (12.0-15.0); Mean Corpuscular Hgb 32.2 pg (27.0-32.0); Mean Corpuscular Volume 97.8 fL (81-99); Mean Platelet Vol. 10.4 fl (6.2-12.0); Platelet Count 279 K/mm3 (150-450); RBC Distribution Width CV 12.9 % (11.6-14.6); RBC Distribution Width SD 46.1 fl (35.1-43.9); Red Blood Count 3.57 M/mm3 (4.2-5.4); White Blood Count 7.9 K/mm3 (4.4-11.0)
== END | disposition home or self-care (01) ==
LOC: LAB 14:13
PROVIDERS: PCP Family Medicine; Referring Provider Surgery; Visit Provider Surgery
DX: D62 Acute posthemorrhagic anemia (principal)
CPT/HCPCS: 36415; 85027

== ENCOUNTER 2022-05-13 09:00 | Outpatient (RCR) | payer BC, SELFPAY ==
[2022-04-28 08:25] VITALS: BP 131/85; PULSE 71; RESP 16; TEMP 36.3
--- NOTE | 2022-04-28 11:41 | HBO.CON.PC_ITS ---
Assessment & Plan Assessment/Plan (1) Other complications of skin graft (allograft) (autograft): (2) Status post bilateral mastectomy: (3) Status post bilateral breast reconstruction: (4) Prophylactic breast removal: (5) Acquired absence of bilateral breasts and nipples: (6) Genetic 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: (7) Monoallelic mutation of DEISY gene: (8) Cancer phobia: (9) Family history of breast cancer: (10) Disproportion of reconstructed breast: (11) Acute postoperative anemia due to expected blood loss: (12) Former smoker: PLAN: Plan Patient evaluated at the wound healing center for hyperbaric oxygen therapy for her compromised nipple skin grafts bilaterally after mastectomy with breast reconstruction. She wound benefit from HBOT to help prevent further compromise at 2 SHARIF for 20 sessions. Will obtain a chest x-ray and EKG. Her tympanic membranes bilaterally are clear with no erythema or effusion. The treatment with HBO has been reviewed with her and she has been educated on the procedure of the treatments. Continue to keep head elevated and continue lifting restriction. Continue to wear compression bra/surgical bra or DORENE wraps. Continue antibiotic ointment to the nipple grafts daily. At discharge, her Hgb was 8.6.?Her recheck Hgb 11.5 on 04/23/22. ? Continue Iron supplementation. ? Removed the majority of the sutures from the vertical incision. Will consider removing the ones in the T[place] at her next visit. ? History of Present Illness Date of Service: 04/28/22 Chief Complaint: Compromised bilateral nipple skin grafts after mastectomy with immediate reconstruction and placement of free nipple graft. History of Wound: 46 year old female who had a recent surgery on 04/11/22 where she underwent Prophylactic mastectomy right breast and Immediate right breast reconstruction with placement prepectoral cohesive gel implant (700 ml) and placement FlexHD acellular dermal matrix graft (23 x 26 cm) and mastopexy and Right nipple reconstruction with placement of free nipple graft and Prophylactic mastectomy left breast and Immediate left breast reconstruction with placement prepectoral cohesive gel implant (700 ml) and placement FlexHD acellular dermal matrix graft (23 x 26 cm) and mastopexy and Left nipple reconstruction with placement of free nipple graft. She was discharged from the hospital on 04/14/22. Pathology of the right breast showed involutional change with mild non- proliferative fibrocystic change. Left breast showed involutional change with mild non-proliferative fibrocystic change and focal benign microcalcifications. She has developed some compromise of the nipple grafts, the right being worse than the left. Nipples show good adherence but the color has darkened. Right nipple with 60 % take and the left nipple with 80% take, both with good adherence and some vascular ingrowth. Her incisions are dry and intact. Progress of Wound: Right and left nipple grafts with compromise. The areas of compromise are dark in color. No drainage. She has and area on the right vertical incision with a small area of epidermolysis that is approximately 1 cm with dry scab in place and is stable with healthy dermis is note. Incisions are dry and intact. [facility] Medical History Acquired absence of bilateral breasts and nipples Alcohol use Allergies Cancer phobia Cancer phobia Disproportion of reconstructed breast Family history of breast cancer Former smoker Former smoker Frequent headaches Gastric reflux Genetic 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 Migraine headache Monoallelic mutation of DEISY gene Pneumonia PONV (postoperative nausea and vomiting) Prophylactic ovary removal Ptosis of both breasts Wears contact lenses Wears glasses Home Medications ibuprofen 800 mg tablet 800 mg PO Q12H PRN PRN Migraine Headache 03/28/22 [History Last Taken Unknown] omeprazole 40 mg capsule,delayed release 40 mg PO DAILY 03/28/22 [History Last Taken Unknown] sumatriptan succinate 100 mg tablet 100 mg PO PRN PRN MIGRAINE 03/28/22 [History Last Taken Unknown] valacyclovir 500 mg tablet 500 mg PO DAILY 03/28/22 [History Last Taken Unknown] L.acidophil,salivari-Bifido bifidum-Strep thermoph 175 mg capsule (Acidophilus Probiotic Blend) 1 cap PO DAILY 14 days #14 caps 04/14/22 [Rx Last Taken Unknown] cefadroxil 500 mg capsule 500 mg PO BID 14 days #28 caps 04/14/22 [Rx Last Taken Unknown] diazepam 5 mg tablet (Valium) 5 mg PO BID PRN muscle spasm 7 days #14 tabs 04/14/22 [Rx Last Taken Unknown] docusate sodium 100 mg capsule (Colace) 100 mg PO DAILY 30 days #30 caps 01/30/23 [Rx Last Taken Unknown] ondansetron 4 mg disintegrating tablet 4 mg PO Q8H PRN nausea and vomiting 5 days #15 tabs 04/14/22 [Rx Last Taken Unknown] oxycodone-acetaminophen 5 mg-325 mg tablet (Percocet) 1 tab PO Q4H PRN pain (scale score 7-10) 7 days #40 tabs 04/14/22 [Rx Last Taken Unknown] polysaccharide iron complex 150 mg iron capsule (Ferrex) 150 mg PO DAILY 30 days #30 caps 04/14/22 [Rx Last Taken Unknown] Allergy/AdvReac Type Severity Reaction Status Date / Time Penicillins [PCN] Allergy Hives, RASH Verified 04/25/22 09:04 Family History Grandmother Breast cancer Aunt Breast cancer Father Diabetes Surgical History History of bilateral breast implants History of bilateral oophorectomy History of bladder surgery History of hysterectomy Status post bilateral breast reconstruction Status post bilateral mastectomy Social History Smoking Status: Former smoker alcohol intake: current substance use type: does not use additional social history: Does Not Take Aspirin Does Take Ibuprofen As Needed ROS Constitutional Constitutional: Reports headache(s); Denies chills or fever(s) Eyes Eyes: Reports none ENT HEENT: Reports none Cardiovascular Cardiovascular: Denies chest pain, dyspnea or leg edema Respiratory/Chest Respiratory/Chest: Reports none Gastrointestinal Gastrointestinal: Denies abdominal pain, constipation, diarrhea, nausea or vomiting Genitourinary Genitourinary: Reports systems reviewed and no addt'l complaints, except as documented Musculoskeletal Musculoskeletal: Reports systems reviewed and no addt'l complaints, except as documented Integumentary Integumentary: Reports systems reviewed and no addt'l complaints, except as documented Neurologic Neurologic: Reports none Psychiatric Psychiatric: Reports none Endocrine Endocrinology: Reports none Hematologic/Lymphatic Hematologic/Lymphatic: Reports none Physical Exam Physical Exam Const alert, oriented x3 and no apparent distress HEENT normocephalic Face and Sinus: normal facial exam Tympanic Membrane: TM's normal bilaterally Eyes General Eye: normal appearance of both eyes Neck full ROM Resp normal respiratory effort, normal air movement and clear to auscultation aki aterally Effort and Inspection: able to speak in complete sentences Cardio regular rate and regular rhythm GI normal to inspection, nondistended, normoactive bowel sounds, soft to palpation and non-tender Back/Spine normal ROM Extremity full ROM, normal capillary refill and no pedal edema Skin Skin Narrative: Incisions and sutures are dry and intact. She has developed some compromise of the nipple grafts, the right being worse than the left.? Nipples show good adherence but the color has darkened.? Right nipple with 60 % take and the left nipple with 80% take, both with good adherence and some vascular ingrowth. No drainage present. She has an area on the right vertical incision with a small area of epidermolysis that is approximately 1 cm with dry scab in place and is stable with healthy dermis is present. Incisions and sutures are dry and intact. Removed some of the sutures on the vertical incision without difficulty. Neuro oriented x3, CN's II-XII intact bilaterally and moves all extremities Speech: speech normal Psych mental status grossly normal, thought process normal, cooperative and affect normal Nursing Assessment and Debridement Post-Debridement Measurements and Additional Note: Post-Debridement Measurements/Treatment WC - Nurse 1 - General Ulcer Assessment Start: 04/28/22 08:19 Freq: Status: Active Protocol: HERNANDEZ Activity Type Activity Date Activity User E-sign Co-sign Detail Recorded Client Recorded Date Recorded By Document 04/28/22 08:25 ML [id number] 04/28/22 08:30 ML 04/28/22 08:25 - Today's Visit Information Type of service Initial Visit Arrival Mode Ambulatory Transfer Assistance None Patient Identification Verified (Name & Yes ) Patient Requires Transmission-Based No Precautions Safety Precautions NA Vital Signs Temperature (97.8 F-99.1 F) 97.4 F L Temperature Source Temporal Pulse Rate (60-100 beats/min) 71 Pulse Location Monitor Respiratory Rate (12-18 breaths/min) 16 Respiratory rate source Observation Blood Pressure (90/60-120/80 mm Hg) 131/85 H Blood Pressure Mean (mm Hg) 100 Source Monitor Position Sitting Blood Pressure Location Left Arm History Since Last Visit- (Skip if this is Patient's initial visit) Have you changed medications since your No last visit? Any new allergies or adverse reactions No Had a fall/change in ADL's that may No increase risk of falls Signs or symptoms of abuse and/or No neglect since last visit Have you been in the hospital since your No last visit? Has dressing in place as prescribed Yes Has compression in place as prescribed N/A Has offloadiing in place as prescribed N/A Experienced any changes in pain level or No management Left Footwear Regular Shoe Right Footwear Regular Shoe Pain Scale: 0-10 Numeric Is Patient Pain Free? Yes WC - Nurse 1 - General Ulcer Measurement Start: 04/28/22 08:19 Freq: Status: Active Protocol: Activity Type Activity Date Activity User E-sign Co-sign Detail Recorded Client Recorded Date Recorded By Document 04/28/22 08:25 ML [id number] 04/28/22 08:30 ML 04/28/22 08:25 Wound Center Nurse 1 #2 L BREAST -Current Size (cm) - Length 0.1 -Current Size (cm) - Width 0.1 -Current Size (cm) - Depth 0.1 -Total Square Cm 0.01 -Exudate Amt Small -Exudate Type Sanguineous -Wound Margin Distinct, Outline Attached -Granulation Amt None Present (0 %) -Necrotic Tissue Type Adherent Slough -Texture (Clare-wound Skin Appearance) Assessed -Moisture (Clare-wound Skin Appearance) Assessed -Color (Clare-wound Skin Appearance) Assessed -Temperature (Clare-wound Skin No Abnormality Appearance) (Pt Warm) -Tenderness on Palpation (Clare-wound Yes Skin Appearance) -Ulcer Cleansing Soap and Water -Foul Odor after Cleansing No -Anesthetic Used 4% Lidocaine Solution #1 R BREAST -Current Size (cm) - Length 0.1 -Current Size (cm) - Width 0.1 -Current Size (cm) - Depth 0.1 -Total Square Cm 0.01 -Exudate Amt Small -Exudate Type Serosanguineous -Wound Margin Distinct, Outline Attached -Necrosis Amt None Present (0 %) -Texture (Clare-wound Skin Appearance) Assessed -Moisture (Clare-wound Skin Appearance) Assessed -Color (Clare-wound Skin Appearance) Assessed -Temperature (Clare-wound Skin No Abnormality Appearance) (Pt Warm) -Tenderness on Palpation (Clare-wound Yes Skin Appearance) -Ulcer Cleansing Soap and Water -Foul Odor after Cleansing No -Anesthetic Used 4% Lidocaine Solution WC - Nurse 2 - General Ulcer CM Notes Start: 04/28/22 08:19 Freq: Status: Active Protocol: Activity Type Activity Date Activity User E-sign Co-sign Detail Recorded Client Recorded Date Recorded By Document 04/28/22 08:45 JF [id number] 04/28/22 08:47 FÉLIX 04/28/22 08:45 Pain Scale: 0-10 Numeric Is Patient Pain Free? Yes Charges/Coding Procedures Integumentary [id number]: [id number] Global Visit
--- NOTE | 2022-04-29 06:56 | EKG12_ITS ---
Test Reason : PRE WOUND TX Blood Pressure : / mmHG Vent. Rate : 062 BPM Atrial Rate : 062 BPM P-R Int : 122 ms QRS Dur : 076 ms QT Int : 406 ms P-R-T Axes : 061 048 034 degrees QTc Int : 412 ms Normal sinus rhythm Normal ECG Confirmed by MODESTA ROBERTO, NADIA ([id number]), editor in chief JOVANNI PARKINSON ([id number]) on 04/29/2022 10:03:06 AM Referred By: Rachel Beard Confirmed By:NADIA BYERS MD
--- NOTE | 2022-04-29 07:01 | RAD_ITS ---
STUDY: X-RAY CHEST REASON FOR EXAM: Female, 46 years old. HYPERBARIC O2 THERAPY TECHNIQUE: PA and lateral views of the chest. COMPARISON: None. FINDINGS: Hyperinflation. Lungs are clear. There is no demonstrated pleural abnormality. Normal size heart. Normal mediastinum and bhanu. Normal visualized pulmonary arteries. Normal visualized aortic arch and descending thoracic aorta. Normal visualized thoracic spine. Normal visualized ribs, clavicles, and shoulders. There is no demonstrated abnormality of the visualized soft tissue structures of the upper abdomen. RAD/Chest PA and Lateral IMPRESSION: Hyperinflation. The lungs are clear. Electronically Signed: Stanley Sharp MD at 10:03 [facility] ,
[2022-05-05 08:37] VITALS: BP 118/49; PULSE 69; RESP 18; TEMP 36.4
--- NOTE | 2022-05-05 10:20 | PN.PCM_ITS ---
History of Present Illness Date of Service: 05/05/22 Chief Complaint: Compromised bilateral nipple skin grafts after mastectomy with immediate reconstruction and placement of free nipple graft. History of Wound: 46 year old female who had a recent surgery on 04/11/22 where she underwent Prophylactic mastectomy right breast and Immediate right breast reconstruction with placement prepectoral cohesive gel implant (700 ml) and placement FlexHD acellular dermal matrix graft (23 x 26 cm) and mastopexy and Right nipple reconstruction with placement of free nipple graft and Prophylactic mastectomy left breast and Immediate left breast reconstruction with placement prepectoral cohesive gel implant (700 ml) and placement FlexHD acellular dermal matrix graft (23 x 26 cm) and mastopexy and Left nipple reconstruction with placement of free nipple graft. She was discharged from the hospital on 04/14/22 . Pathology of the right breast showed involutional change with mild non- proliferative fibrocystic change. Left breast showed involutional change with mild non-proliferative fibrocystic change and focal benign microcalcifications. She has developed some compromise of the nipple grafts, the right being worse than the left. Nipples show good adherence but the color has darkened. Right nipple with 60 % take and the left nipple with 80% take, both with good adherence and some vascular ingrowth. Her incisions are dry and intact. Progress of Wound: Right and left nipple grafts with compromise. The areas of compromise are dark in color. No drainage. She has an area on the right vertical incision with a small area of epidermolysis that is approximately 1 cm with dry scab in place and is stable with healthy dermis is note. Removed the remaining sutures. Right Tzone has a small area of separation. Still waiting for HBO to be approved. Objective Data Objective Data Vital Signs: Vital Signs Temp Pulse Resp BP 97.5 F L 69 18 118/49 L 05/05/22 08:37 05/05/22 08:37 05/05/22 08:37 05/05/22 08:37 Charges/Coding Procedures Integumentary [id number]: [id number] Global Visit Physical Exam Const alert, oriented x3 and no apparent distress HEENT normocephalic Face and Sinus: normal facial exam Eyes General Eye: normal appearance of both eyes Neck full ROM Resp normal respiratory effort and normal air movement Effort and Inspection: able to speak in complete sentences Cardio regular rate Back/Spine normal ROM Extremity full ROM, normal capillary refill and no pedal edema Skin Skin Narrative: Incisions and sutures are dry and intact. She has developed some compromise of the nipple grafts, the right being worse than the left.? Nipples show good adherence but the color has darkened.? Right nipple with 60 % take and the left nipple with 80% take, both with good adherence and some vascular ingrowth. No drainage present. She has an area on the right vertical incision with a small area of epidermolysis that is approximately 1 cm with dry scab in place and is stable with healthy dermis is present. Removed remaining sutures. She has a small area of separation on the right Tzone. Neuro oriented x3 and moves all extremities Speech: speech normal Psych mental status grossly normal, thought process normal, cooperative and affect normal Debridement Note Debridement Note No debridement was completed: No debridement was completed today Post-Debridement Measurements and Additional Note: Post-Debridement Measurements/Treatment ANGY - Nurse 1 - General Ulcer Assessment Start: 04/28/22 08:19 Freq: Status: Active Protocol: HERNANDEZ Activity Type Activity Date Activity User E-sign Co-sign Detail Recorded Client Recorded Date Recorded By Document 04/28/22 08:25 ML [id number] 04/28/22 08:30 ML Document 05/05/22 08:37 DL [id number] 05/05/22 08:40 DL 04/28/22 05/05/22 08:25 08:37 WC - Today's Visit Information Type of service Initial Visit Follow-up Visit (Physician/[employer]ON[employer] ) Arrival Mode Ambulatory Ambulatory Transfer Assistance None None Patient Identification Verified (Name & Yes Yes ) Patient Requires Transmission-Based No No Precautions Safety Precautions NA Vital Signs Temperature (97.8 F-99.1 F) 97.4 F L 97.5 F L Temperature Source Temporal Temporal Pulse Rate (60-100) 71 69 Pulse Location Monitor Monitor Respiratory Rate (12-18) 16 18 Respiratory rate source Observation Observation Blood Pressure (90/60-120/80) 131/85 H 118/49 L Blood Pressure Mean (mm Hg) 100 72 Source Monitor Monitor Position Sitting Blood Pressure Location Left Arm History Since Last Visit- (Skip if this is Patient's initial visit) Have you changed medications since your No No last visit? Any new allergies or adverse reactions No No Had a fall/change in ADL's that may No No increase risk of falls Signs or symptoms of abuse and/or No No neglect since last visit Have you been in the hospital since your No No last visit? Has dressing in place as prescribed Yes Yes Has compression in place as prescribed N/A N/A Has offloadiing in place as prescribed N/A N/A Experienced any changes in pain level or No No management Left Footwear Regular Shoe Right Footwear Regular Shoe Pain Scale: 0-10 Numeric Is Patient Pain Free? Yes Yes WC - Nurse 1 - General Ulcer Measurement Start: 04/28/22 08:19 Freq: Status: Active Protocol: Activity Type Activity Date Activity User E-sign Co-sign Detail Recorded Client Recorded Date Recorded By Document 04/28/22 08:25 ML [id number] 04/28/22 08:30 ML Document 05/05/22 08:37 DL [id number] 05/05/22 08:40 DL 04/28/22 05/05/22 08:25 08:37 Wound Center Nurse 1 #2 L BREAST -Current Size (cm) - Length 0.1 8.5 -Current Size (cm) - Width 0.1 2.6 -Current Size (cm) - Depth 0.1 0.1 -Total Square Cm 0.01 22.10 -Photo Taken Yes -Exudate Amt Small Medium -Exudate Type Sanguineous Serosanguineous -Wound Margin Distinct, Distinct, Outline Outline Attached Attached -Granulation Amt None Present (0 None Present (0 %) %) -Necrosis Amt Large (67-100%) -Necrotic Tissue Type Adherent Slough Eschar -Structure Exposed N/A -Texture (Clare-wound Skin Appearance) Assessed Scarring -Moisture (Clare-wound Skin Appearance) Assessed Dry/Scaly -Color (Clare-wound Skin Appearance) Assessed No Abnormality -Temperature (Clare-wound Skin No Abnormality No Abnormality Appearance) (Pt Warm) (Pt Warm) -Tenderness on Palpation (Clare-wound Yes No Skin Appearance) -Ulcer Cleansing Soap and Water Soap and Water -Foul Odor after Cleansing No No -Anesthetic Used 4% Lidocaine 5% Lidocaine Solution Gel #1 R BREAST -Current Size (cm) - Length 0.1 9.5 -Current Size (cm) - Width 0.1 4 -Current Size (cm) - Depth 0.1 0.1 -Total Square Cm 0.01 38.0 -Photo Taken Yes -Exudate Amt Small Medium -Exudate Type Serosanguineous -Wound Margin Distinct, Distinct, Outline Outline Attached Attached -Granulation Amt None Present (0 %) -Necrosis Amt None Present (0 Large (67-100%) %) -Necrotic Tissue Type Adherent Slough -Structure Exposed N/A -Texture (Clare-wound Skin Appearance) Assessed Scarring -Moisture (Clare-wound Skin Appearance) Assessed No Abnormality -Color (Clare-wound Skin Appearance) Assessed No Abnormality -Temperature (Clare-wound Skin No Abnormality No Abnormality Appearance) (Pt Warm) (Pt Warm) -Tenderness on Palpation (Clare-wound Yes No Skin Appearance) -Ulcer Cleansing Soap and Water Soap and Water -Foul Odor after Cleansing No No -Anesthetic Used 4% Lidocaine 5% Lidocaine Solution Gel WC - Nurse 2 - General Ulcer CM Notes Start: 04/28/22 08:19 Freq: Status: Active Protocol: Activity Type Activity Date Activity User E-sign Co-sign Detail Recorded Client Recorded Date Recorded By Document 04/28/22 08:45 [id number] 04/28/22 08:47 Document 05/05/22 08:54 [id number] 05/05/22 09:06 04/28/22 05/05/22 08:45 08:54 Wound Center Nurse 2 #2 L BREAST -Correct Patient No -Correct Side, Site, Position No -Correct Procedure No -Procedure Performed No #1 R BREAST -Time 09:05 -Correct Patient Yes -Correct Side, Site, Position Yes -Correct Procedure Yes -Procedure Performed Yes -Type of Procedure Debridement -Clinical Debridement Subcutaneous -Tissue Removed Subcutaneous -Post Debridement (cm) - Length 0.5 -Post Debridement (cm) - Width 1.0 -Post Debridement (cm) - Depth 0.5 -Total Square (Post) (cm) 0.50 -Area of Debridement (cm) - Length 0.5 -Area of Debridement (cm) - Width 1.0 -Total Square (Area) (cm) 0.50 -Tunneling No -Undermining/Tunneling No -Circular Undermining No -Wound/Ulcer Outcome Not Healed -Ulcer Cleansing Rinsed/ Irrigated with Saline -Foul Odor after Cleansing No -Bioengineered Tissue No -Bleeding Controlled with Pressure -Treatment Response Procedure Tolerated Well -Offloading No -Debridement - Subq, 1st 20sq cm Yes Pain Scale: 0-10 Numeric Is Patient Pain Free? Yes Yes - Nurse 3 - General Ulcer D/C NN Start: 04/28/22 08:19 Freq: Status: Active Protocol: Activity Type Activity Date Activity User E-sign Co-sign Detail Recorded Client Recorded Date Recorded By Document 05/05/22 09:16 [facility] [id number] 05/05/22 09:16 [facility] 05/05/22 09:16 Wound Care Center Nurse 3 #1 R BREAST -Ulcer Cleansing Rinsed/ Irrigated with Saline -Foul Odor after Cleansing No -Primary Dressing Applied Aquacel AG 4x4 -Other Dressing abd -Aquacel AG 4x4 1 Treatment Response Procedure Tolerated Well Pain Scale: 0-10 Numeric Is Patient Pain Free? Yes WC - Visit Discharge Discharge Condition Stable Ambulatory Status Ambulatory Transportation Private Auto Notes: atb oint to nipple area Assessment/Plan Assessment/Plan (1) Other complications of skin graft (allograft) (autograft): CODE(S): T86.828 - Other complications of skin graft (allograft) (autograft) (2) Status post bilateral mastectomy: CODE(S): Z90.13 - Acquired absence of bilateral breasts and nipples (3) Status post bilateral breast reconstruction: CODE(S): Z98.890 - Other specified postprocedural states (4) History of bilateral breast implants: CODE(S): Z98.82 - Breast implant status (5) Prophylactic breast removal: CODE(S): Z40.01 - Encounter for prophylactic removal of breast (6) Acquired absence of bilateral breasts and nipples: CODE(S): Z90.13 - Acquired absence of bilateral breasts and nipples (7) Genetic 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: CODE(S): Z15.01 - 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: CODE(S): Z15.89 - Genetic susceptibility to other disease; Z15.01 - Genetic 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; Z15.09 - Genetic susceptibility to other malignant neoplasm (9) Cancer phobia: CODE(S): F40.298 - Other specified phobia (10) Family history of breast cancer: CODE(S): Z80.3 - Family history of malignant neoplasm of breast (11) Disproportion of reconstructed breast: CODE(S): N65.1 - Disproportion of reconstructed breast (12) Acute postoperative anemia due to expected blood loss: CODE(S): D62 - Acute posthemorrhagic anemia (13) Former smoker: CODE(S): Z87.891 - Personal history of nicotine dependence PLAN: Plan Patient evaluated at the wound healing center for hyperbaric oxygen therapy for her compromised nipple skin grafts bilaterally after mastectomy with breast reconstruction. Waiting for insurance approval. Her chest x-ray and EKG were both normal. Removed remaining sutures without difficulty. She has a small incision separation on the right Tzone. Will start Silver dressing daily to the area to help keep it dry.? Continue to keep head elevated and continue lifting restriction. Continue to wear compression bra/surgical bra or DORENE wraps. Continue antibiotic ointment to the nipple grafts daily. At discharge, her Hgb was 8.6.?Her recheck Hgb 11.5 on 04/23/22. ? Continue Iron supplementation. ? Once HBOT is approve will start her treatment. Follow up one week to see me. Call or come in sooner if develop any concerns. ??
[2022-05-12 08:46] VITALS: BP 124/73; PULSE 71; TEMP 36.3
--- NOTE | 2022-05-12 14:40 | PN.PCM_ITS ---
History of Present Illness Date of Service: 05/12/22 Chief Complaint: Compromised bilateral nipple skin grafts after mastectomy with immediate reconstruction and placement of free nipple graft. History of Wound: 46 year old female who had a recent surgery on 04/11/22 where she underwent Prophylactic mastectomy right breast and Immediate right breast reconstruction with placement prepectoral cohesive gel implant (700 ml) and placement FlexHD acellular dermal matrix graft (23 x 26 cm) and mastopexy and Right nipple reconstruction with placement of free nipple graft and Prophylactic mastectomy left breast and Immediate left breast reconstruction with placement prepectoral cohesive gel implant (700 ml) and placement FlexHD acellular dermal matrix graft (23 x 26 cm) and mastopexy and Left nipple reconstruction with placement of free nipple graft. She was discharged from the hospital on 04/14/22 . Pathology of the right breast showed involutional change with mild non- proliferative fibrocystic change. Left breast showed involutional change with mild non-proliferative fibrocystic change and focal benign microcalcifications. She has developed some compromise of the nipple grafts, the right being worse than the left. Nipples show good adherence but the color has darkened. Right nipple with 60 % take and the left nipple with 80% take, both with good adherence and some vascular ingrowth. Her incisions are dry and intact. Progress of Wound: Right and left nipple grafts with compromise. The areas of compromise are dark in color. She started to have drainage from the right Tzone over the past couple days. Left Tzone has a small separation. She has been approved for HBO and starts tomorrow. She has an area on the right vertical incision with a small area of epidermolysis that is approximately 1 cm with dry scab in place and is stable with healthy dermis is note. Sutures from around the nipple removed that have not dissolved. Objective Data Objective Data Vital Signs: Vital Signs Temp Pulse Resp BP 97.3 F L 71 18 124/73 H 05/12/22 08:46 05/12/22 08:46 05/05/22 08:37 05/12/22 08:46 Lab / Micro Data Micro: Microbiology 05/12/22 09:00 Wound Abcess - Breast Gram Stain - Final Charges/Coding Procedures Integumentary [id number]: [id number] Global Visit Debridement Note Debridement Note No debridement was completed: No debridement was completed today Post-Debridement Measurements and Additional Note: Post-Debridement Measurements/Treatment WC - Nurse 1 - General Ulcer Assessment Start: 04/28/22 08:19 Freq: Status: Active Protocol: HERNANDEZ Activity Type Activity Date Activity User E-sign Co-sign Detail Recorded Client Recorded Date Recorded By Document 04/28/22 08:25 ML [id number] 04/28/22 08:30 ML Document 05/05/22 08:37 DL [id number] 05/05/22 08:40 DL Document 05/12/22 08:46 AK [id number] 05/12/22 08:48 AK 04/28/22 05/05/22 05/12/22 08:25 08:37 08:46 WC - Today's Visit Information Type of service Initial Visit Follow-up Visit Follow-up Visit (Physician/PUBLIC POLICY MEDIATOR (Physician/PUBLIC POLICY MEDIATOR ) ) Arrival Mode Ambulatory Ambulatory Ambulatory Transfer Assistance None None Patient Identification Verified (Name & Yes Yes Yes ) Patient Requires Transmission-Based No No No Precautions Safety Precautions NA NA Vital Signs Temperature (97.8 F-99.1 F) 97.4 F L 97.5 F L 97.3 F L Temperature Source Temporal Temporal Temporal Pulse Rate (60-100) 71 69 71 Pulse Location Monitor Monitor Monitor Respiratory Rate (12-18) 16 18 Respiratory rate source Observation Observation Blood Pressure (90/60-120/80) 131/85 H 118/49 L 124/73 H Blood Pressure Mean (mm Hg) 100 72 90 Source Monitor Monitor Monitor Position Sitting Blood Pressure Location Left Arm History Since Last Visit- (Skip if this is Patient's initial visit) Have you changed medications since your No No No last visit? Any new allergies or adverse reactions No No No Had a fall/change in ADL's that may No No No increase risk of falls Signs or symptoms of abuse and/or No No No neglect since last visit Have you been in the hospital since your No No No last visit? Has dressing in place as prescribed Yes Yes Yes Has compression in place as prescribed N/A N/A N/A Has offloadiing in place as prescribed N/A N/A N/A Experienced any changes in pain level or No No No management Left Footwear Regular Shoe Regular Shoe Right Footwear Regular Shoe Regular Shoe Pain Scale: 0-10 Numeric Is Patient Pain Free? Yes Yes No WC - Nurse 1 - General Ulcer Measurement Start: 04/28/22 08:19 Freq: Status: Active Protocol: Activity Type Activity Date Activity User E-sign Co-sign Detail Recorded Client Recorded Date Recorded By Document 04/28/22 08:25 ML [id number] 04/28/22 08:30 ML Document 05/05/22 08:37 DL [id number] 05/05/22 08:40 DL Document 05/12/22 08:46 AK [id number] 05/12/22 08:48 AK 04/28/22 05/05/22 05/12/22 08:25 08:37 08:46 Wound Center Nurse 1 #2 L BREAST -Current Size (cm) - Length 0.1 8.5 -Current Size (cm) - Width 0.1 2.6 -Current Size (cm) - Depth 0.1 0.1 -Total Square Cm 0.01 22.10 -Photo Taken Yes -Exudate Amt Small Medium -Exudate Type Sanguineous Serosanguineous -Wound Margin Distinct, Distinct, Outline Outline Attached Attached -Granulation Amt None Present (0 None Present (0 %) %) -Necrosis Amt Large (67-100%) -Necrotic Tissue Type Adherent Slough Eschar -Structure Exposed N/A -Texture (Clare-wound Skin Appearance) Assessed Scarring -Moisture (Clare-wound Skin Appearance) Assessed Dry/Scaly -Color (Clare-wound Skin Appearance) Assessed No Abnormality -Temperature (Clare-wound Skin No Abnormality No Abnormality Appearance) (Pt Warm) (Pt Warm) -Tenderness on Palpation (Clare-wound Yes No Skin Appearance) -Ulcer Cleansing Soap and Water Soap and Water -Foul Odor after Cleansing No No -Anesthetic Used 4% Lidocaine 5% Lidocaine Solution Gel #1 R BREAST -Combined with other wound No -Current Size (cm) - Length 0.1 9.5 2.2 -Current Size (cm) - Width 0.1 4 4.2 -Current Size (cm) - Depth 0.1 0.1 0.1 -Total Square Cm 0.01 38.0 9.24 -Date of Last Picture (Recall this 05/12/22 field) -Photo Taken Yes Yes -Tunneling No -Undermining/Tunneling No -Circular Undermining No -Change in Wound Grade/Stage No -Exudate Amt Small Medium Large -Exudate Type Serosanguineous Serosanguineous -Wound Margin Distinct, Distinct, Distinct, Outline Outline Outline Attached Attached Attached -Granulation Amt None Present (0 None Present (0 %) %) -Granulation Quality N/A -Slough/Fibrin Yes -Necrosis Amt None Present (0 Large (67-100%) Large (67-100%) %) -Necrotic Tissue Type Adherent Slough Adherent Slough -Structure Exposed N/A N/A -Texture (Clare-wound Skin Appearance) Assessed Scarring No Abnormality, Assessed -Moisture (Clare-wound Skin Appearance) Assessed No Abnormality No Abnormality, Assessed -Color (Clare-wound Skin Appearance) Assessed No Abnormality No Abnormality, Assessed -Temperature (Clare-wound Skin No Abnormality No Abnormality No Abnormality Appearance) (Pt Warm) (Pt Warm) (Pt Warm) -Tenderness on Palpation (Clare-wound Yes No No Skin Appearance) -Ulcer Cleansing Soap and Water Soap and Water Soap and Water -Foul Odor after Cleansing No No No -Anesthetic Used 4% Lidocaine 5% Lidocaine 4% Lidocaine Solution Gel Solution WC - Nurse 2 - General Ulcer CM Notes Start: 04/28/22 08:19 Freq: Status: Active Protocol: Activity Type Activity Date Activity User E-sign Co-sign Detail Recorded Client Recorded Date Recorded By Document 04/28/22 08:45 [id number] 04/28/22 08:47 Document 05/05/22 08:54 [id number] 05/05/22 09:06 Document 05/12/22 09:04 [id number] 05/12/22 09:07 Edit Result 05/12/22 09:04 FÉLIX (1) [id number] 05/12/22 09:09 (1) #2 L BREAST - Correct Patient => No - Correct Side, Site, Position => No - Correct Procedure => No - Procedure Performed => No - Post Debridement (cm) - Length => 1.5 - Post Debridement (cm) - Width => 1.5 - Post Debridement (cm) - Depth => 0.1 - Total Square (Post) (cm) => 2.25 - Area of Debridement (cm) - Length => 1.5 - Area of Debridement (cm) - Width => 1.5 - Total Square (Area) (cm) => 2.25 - Wound/Ulcer Outcome => Not Healed - Debridement - Subq, 20sq cm => No #1 R BREAST - Post Debridement (cm) - Length => 2.5 - Post Debridement (cm) - Width => 4.2 - Post Debridement (cm) - Depth => 0.3 - Total Square (Post) (cm) => 10.50 - Area of Debridement (cm) - Length => 2.5 - Area of Debridement (cm) - Width => 4.2 - Total Square (Area) (cm) => 10.50 - Debridement - Subq, 20sq cm => No 04/28/22 05/05/22 05/12/22 08:45 08:54 09:04 Wound Center Nurse 2 #2 L BREAST -Correct Patient No No -Correct Side, Site, Position No No -Correct Procedure No No -Procedure Performed No No -Post Debridement (cm) - Length 1.5 -Post Debridement (cm) - Width 1.5 -Post Debridement (cm) - Depth 0.1 -Total Square (Post) (cm) 2.25 -Area of Debridement (cm) - Length 1.5 -Area of Debridement (cm) - Width 1.5 -Total Square (Area) (cm) 2.25 -Wound/Ulcer Outcome Not Healed -Debridement - Subq, 20sq cm No #1 R BREAST -Time 09:05 -Correct Patient Yes No -Correct Side, Site, Position Yes No -Correct Procedure Yes No -Procedure Performed Yes No -Type of Procedure Debridement -Clinical Debridement Subcutaneous -Tissue Removed Subcutaneous -Post Debridement (cm) - Length 0.5 2.5 -Post Debridement (cm) - Width 1.0 4.2 -Post Debridement (cm) - Depth 0.5 0.3 -Total Square (Post) (cm) 0.50 10.50 -Area of Debridement (cm) - Length 0.5 2.5 -Area of Debridement (cm) - Width 1.0 4.2 -Total Square (Area) (cm) 0.50 10.50 -Tunneling No -Undermining/Tunneling No -Circular Undermining No -Wound/Ulcer Outcome Not Healed Not Healed -Ulcer Cleansing Rinsed/ Irrigated with Saline -Foul Odor after Cleansing No -Bioengineered Tissue No -Bleeding Controlled with Pressure -Treatment Response Procedure Tolerated Well -Offloading No -Debridement - Subq, 1st 20sq cm Yes No Pain Scale: 0-10 Numeric Is Patient Pain Free? Yes Yes Yes - Nurse 3 - General Ulcer D/C NN Start: 04/28/22 08:19 Freq: Status: Active Protocol: Activity Type Activity Date Activity User E-sign Co-sign Detail Recorded Client Recorded Date Recorded By Document 05/05/22 09:[address] [facility] [id number] 05/05/22 09:16 BMF Document 05/12/22 09:16 ML [id number] 05/12/22 09:17 ML 05/05/22 05/12/22 09:16 09:16 Wound Care Center Nurse 3 #2 L BREAST -Ulcer Cleansing Rinsed/ Irrigated with Saline -Primary Dressing Applied Aquacel AG 4x4 -Primary Dressing Covered/Secured with Dry Gauze & Roll Gauze, Secured with Tape -Aquacel AG 4x4 1 #1 R BREAST -Ulcer Cleansing Rinsed/ Rinsed/ Irrigated with Irrigated with Saline Saline -Foul Odor after Cleansing No No -Primary Dressing Applied Aquacel AG 4x4 Aquacel AG 4x4 -Other Dressing abd -Primary Dressing Covered/Secured with Dry Gauze & Roll Gauze, Secured with Tape -Aquacel AG 4x4 1 0 Treatment Response Procedure Tolerated Well Pain Scale: 0-10 Numeric Is Patient Pain Free? Yes Yes - Visit Discharge Discharge Condition Stable Ambulatory Status Ambulatory Transportation Private Auto Notes: atb oint to nipple area Assessment/Plan Assessment/Plan (1) Other complications of skin graft (allograft) (autograft): CODE(S): T86.828 - Other complications of skin graft (allograft) (autograft) (2) Status post bilateral mastectomy: CODE(S): Z90.13 - Acquired absence of bilateral breasts and nipples (3) Status post bilateral breast reconstruction: CODE(S): Z98.890 - Other specified postprocedural states (4) History of bilateral breast implants: CODE(S): Z98.82 - Breast implant status (5) Prophylactic breast removal: CODE(S): Z40.01 - Encounter for prophylactic removal of breast (6) Acquired absence of bilateral breasts and nipples: CODE(S): Z90.13 - Acquired absence of bilateral breasts and nipples (7) Genetic 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: CODE(S): Z15.01 - 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: CODE(S): Z15.89 - Genetic susceptibility to other disease; Z15.01 - Genetic 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; Z15.09 - Genetic susceptibility to other malignant neoplasm (9) Cancer phobia: CODE(S): F40.298 - Other specified phobia (10) Family history of breast cancer: CODE(S): Z80.3 - Family history of malignant neoplasm of breast (11) Disproportion of reconstructed breast: CODE(S): N65.1 - Disproportion of reconstructed breast (12) Acute postoperative anemia due to expected blood loss: CODE(S): D62 - Acute posthemorrhagic anemia (13) Former smoker: CODE(S): Z87.891 - Personal history of nicotine dependence PLAN: Plan Patient evaluated at the wound healing center. She has been approved for HBOT which starts tomorrow. She had some drainage from the right breast Tzone over the weekend. There is minor separation at the left tzone. Wound care - Place silver alginate dressing to the tzones bilaterally daily. A wound culture was obtained today.? Will start her on Levaquin today because of her having implants. We may need to change the antibiotic once the culture sensitivities are back. Her chest x-ray and EKG were both normal. Continue to keep head elevated and continue lifting restriction. Continue to wear compression bra/surgical bra or DORENE wraps. Continue antibiotic ointment to the nipple grafts daily. At discharge, her Hgb was 8.6.?Her recheck Hgb 11.5 on 04/23/22. ? Continue Iron supplementation. ? Follow up one week to see me. Call or come in sooner if develop any concerns. ??
[2022-05-13 10:10] VITALS: BP 111/68; PULSE 73; RESP 16; TEMP 36.1
--- NOTE | 2022-05-13 15:25 | HP.PCM_ITS ---
History of Present Illness Date of Service: 05/13/22 Chief Complaint: Compromised bilateral nipple skin grafts after mastectomy with immediate reconstruction and placement of free nipple graft. History of Wound: 46 year old female who had a recent surgery on 04/11/22 where she underwent Prophylactic mastectomy right breast and Immediate right breast reconstruction with placement prepectoral cohesive gel implant (700 ml) and placement FlexHD acellular dermal matrix graft (23 x 26 cm) and mastopexy and Right nipple reconstruction with placement of free nipple graft and Prophylactic mastectomy left breast and Immediate left breast reconstruction with placement prepectoral cohesive gel implant (700 ml) and placement FlexHD acellular dermal matrix graft (23 x 26 cm) and mastopexy and Left nipple reconstruction with placement of free nipple graft. She was discharged from the hospital on 04/14/22 . Pathology of the right breast showed involutional change with mild non- proliferative fibrocystic change. Left breast showed involutional change with mild non-proliferative fibrocystic change and focal benign microcalcifications. She has developed some compromise of the nipple grafts, the right being worse than the left. Nipples show good adherence but the color has darkened. Right nipple with 60 % take and the left nipple with 80% take, both with good adherence and some vascular ingrowth. Her incisions are dry and intact. [facility] Medical History Acquired absence of bilateral breasts and nipples Alcohol use Allergies Cancer phobia Cancer phobia Disproportion of reconstructed breast Family history of breast cancer Former smoker Former smoker Frequent headaches Gastric reflux Genetic 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 Migraine headache Monoallelic mutation of DEISY gene Pneumonia PONV (postoperative nausea and vomiting) Prophylactic ovary removal Ptosis of both breasts Wears contact lenses Wears glasses Home Medications ibuprofen 800 mg tablet 800 mg PO Q12H PRN PRN Migraine Headache 03/28/22 [History Last Taken Unknown] omeprazole 40 mg capsule,delayed release 40 mg PO DAILY 03/28/22 [History Last Taken Unknown] sumatriptan succinate 100 mg tablet 100 mg PO PRN PRN MIGRAINE 03/28/22 [History Last Taken Unknown] valacyclovir 500 mg tablet 500 mg PO DAILY 03/28/22 [History Last Taken Unknown] L.acidophil,salivari-Bifido bifidum-Strep thermoph 175 mg capsule (Acidophilus Probiotic Blend) 1 cap PO DAILY 14 days #14 caps 04/14/22 [Rx Last Taken Unknown] cefadroxil 500 mg capsule 500 mg PO BID 14 days #28 caps 04/14/22 [Rx Last Taken Unknown] diazepam 5 mg tablet (Valium) 5 mg PO BID PRN muscle spasm 7 days #14 tabs 04/14/22 [Rx Last Taken Unknown] docusate sodium 100 mg capsule (Colace) 100 mg PO DAILY 30 days #30 caps 04/14/22 [Rx Last Taken Unknown] ondansetron 4 mg disintegrating tablet 4 mg PO Q8H PRN nausea and vomiting 5 days #15 tabs 04/14/22 [Rx Last Taken Unknown] oxycodone-acetaminophen 5 mg-325 mg tablet (Percocet) 1 tab PO Q4H PRN pain (scale score 7-10) 7 days #40 tabs 04/14/22 [Rx Last Taken Unknown] polysaccharide iron complex 150 mg iron capsule (Ferrex) 150 mg PO DAILY 30 days #30 caps 04/14/22 [Rx Last Taken Unknown] levofloxacin 500 mg tablet 500 mg PO DAILY 20 days #20 tabs 05/12/22 [Rx Last Taken Unknown] Allergy/AdvReac Type Severity Reaction Status Date / Time Penicillins [PCN] Allergy Hives, RASH Verified 04/25/22 09:04 Family History Grandmother Breast cancer Aunt Breast cancer Father Diabetes Surgical History History of bilateral breast implants History of bilateral oophorectomy History of bladder surgery History of hysterectomy Status post bilateral breast reconstruction Status post bilateral mastectomy Social History Smoking Status: Former smoker alcohol intake: current substance use type: does not use additional social history: Does Not Take Aspirin Does Take Ibuprofen As Needed Vital Signs Vital Signs Vital Signs: 05/13/22 10:10 Temperature [Post Treatment] 97.0 F L Temperature [Pre Treatment] 97.0 F L Pulse Rate [Post Treatment] 73 Pulse Rate [Pre Treatment] 73 Respiratory Rate [Post Treatment] 16 Respiratory Rate [Pre Treatment] 16 Blood Pressure [Post Treatment] 111/68 Blood Pressure [Pre Treatment] 111/68 Physical Exam Const alert, oriented x3, no apparent distress and well nourished General Appearance: cooperative, comfortable, well kempt and well developed Orientation / Consciousness: awake, oriented to person, oriented to place and oriented to time HEENT normocephalic and head/scalp atraumatic Head and Scalp: normal to inspection, normocephalic and atraumatic External Ear: external ears normal Eyes PERRL and EOMs intact bilaterally General Eye: normal appearance of both eyes Resp normal respiratory effort, normal air movement, no retractions and no use of accessory muscles Effort and Inspection: able to speak in complete sentences Extremity no calf tenderness General Extremity: Negative for clubbing or cyanosis Neuro oriented x3, CN's II-XII intact bilaterally and moves all extremities Sensorium / Orientation: awake, alert, oriented to person, oriented to place and oriented to time Speech: speech normal Psych Appearance: grossly normal and appropriate Attitude: calm Activity / Motor Behavior: appropriate eye contact Speech: normal speech Mood & Affect: euthymic mood Thought Process: normal thought process Thought Content: normal thought content Attention / Concentration: attention grossly intact Debridement Note Debridement Note Post-Debridement Measurements and Additional Note: Post-Debridement Measurements/Treatment - Nurse 1 - General Ulcer Assessment Start: 04/28/22 08:19 Freq: Status: Active Protocol: HERNANDEZ Activity Type Activity Date Activity User E-sign Co-sign Detail Recorded Client Recorded Date Recorded By Document 04/28/22 08:25 ML [id number] 04/28/22 08:30 ML Document 05/05/22 08:37 DL [id number] 05/05/22 08:40 DL Document 05/12/22 08:46 AK [id number] 05/12/22 08:48 AK 04/28/22 05/05/22 05/12/22 08:25 08:37 08:46 - Today's Visit Information Type of service Initial Visit Follow-up Visit Follow-up Visit (Physician/OCCUPATIONAL HEALTH AND SAFETY OFFICER (Physician/OCCUPATIONAL HEALTH AND SAFETY OFFICER ) ) Arrival Mode Ambulatory Ambulatory Ambulatory Transfer Assistance None None Patient Identification Verified (Name & Yes Yes Yes ) Patient Requires Transmission-Based No No No Precautions Safety Precautions NA NA Vital Signs Temperature (97.8 F-99.1 F) 97.4 F L 97.5 F L 97.3 F L Temperature Source Temporal Temporal Temporal Pulse Rate (60-100) 71 69 71 Pulse Location Monitor Monitor Monitor Respiratory Rate (12-18) 16 18 Respiratory rate source Observation Observation Blood Pressure (90/60-120/80) 131/85 H 118/49 L 124/73 H Blood Pressure Mean 100 72 90 Source Monitor Monitor Monitor Position Sitting Blood Pressure Location Left Arm History Since Last Visit- (Skip if this is Patient's initial visit) Have you changed medications since your No No No last visit? Any new allergies or adverse reactions No No No Had a fall/change in ADL's that may No No No increase risk of falls Signs or symptoms of abuse and/or No No No neglect since last visit Have you been in the hospital since your No No No last visit? Has dressing in place as prescribed Yes Yes Yes Has compression in place as prescribed N/A N/A N/A Has offloadiing in place as prescribed N/A N/A N/A Experienced any changes in pain level or No No No management Left Footwear Regular Shoe Regular Shoe Right Footwear Regular Shoe Regular Shoe Pain Scale: 0-10 Numeric Is Patient Pain Free? Yes Yes No WC - Nurse 1 - General Ulcer Measurement Start: 04/28/22 08:19 Freq: Status: Active Protocol: Activity Type Activity Date Activity User E-sign Co-sign Detail Recorded Client Recorded Date Recorded By Document 04/28/22 08:25 ML [id number] 04/28/22 08:30 ML Document 05/05/22 08:37 DL [id number] 05/05/22 08:40 DL Document 05/12/22 08:46 AK [id number] 05/12/22 08:48 AK 04/28/22 05/05/22 05/12/22 08:25 08:37 08:46 Wound Center Nurse 1 #2 L BREAST -Current Size (cm) - Length 0.1 8.5 -Current Size (cm) - Width 0.1 2.6 -Current Size (cm) - Depth 0.1 0.1 -Total Square Cm 0.01 22.10 -Photo Taken Yes -Exudate Amt Small Medium -Exudate Type Sanguineous Serosanguineous -Wound Margin Distinct, Distinct, Outline Outline Attached Attached -Granulation Amt None Present (0 None Present (0 %) %) -Necrosis Amt Large (67-100%) -Necrotic Tissue Type Adherent Slough Eschar -Structure Exposed N/A -Texture (Clare-wound Skin Appearance) Assessed Scarring -Moisture (Clare-wound Skin Appearance) Assessed Dry/Scaly -Color (Clare-wound Skin Appearance) Assessed No Abnormality -Temperature (Clare-wound Skin No Abnormality No Abnormality Appearance) (Pt Warm) (Pt Warm) -Tenderness on Palpation (Clare-wound Yes No Skin Appearance) -Ulcer Cleansing Soap and Water Soap and Water -Foul Odor after Cleansing No No -Anesthetic Used 4% Lidocaine 5% Lidocaine Solution Gel #1 R BREAST -Combined with other wound No -Current Size (cm) - Length 0.1 9.5 2.2 -Current Size (cm) - Width 0.1 4 4.2 -Current Size (cm) - Depth 0.1 0.1 0.1 -Total Square Cm 0.01 38.0 9.24 -Date of Last Picture (Recall this 05/12/22 field) -Photo Taken Yes Yes -Tunneling No -Undermining/Tunneling No -Circular Undermining No -Change in Wound Grade/Stage No -Exudate Amt Small Medium Large -Exudate Type Serosanguineous Serosanguineous -Wound Margin Distinct, Distinct, Distinct, Outline Outline Outline Attached Attached Attached -Granulation Amt None Present (0 None Present (0 %) %) -Granulation Quality N/A -Slough/Fibrin Yes -Necrosis Amt None Present (0 Large (67-100%) Large (67-100%) %) -Necrotic Tissue Type Adherent Slough Adherent Slough -Structure Exposed N/A N/A -Texture (Clare-wound Skin Appearance) Assessed Scarring No Abnormality, Assessed -Moisture (Clare-wound Skin Appearance) Assessed No Abnormality No Abnormality, Assessed -Color (Clare-wound Skin Appearance) Assessed No Abnormality No Abnormality, Assessed -Temperature (Clare-wound Skin No Abnormality No Abnormality No Abnormality Appearance) (Pt Warm) (Pt Warm) (Pt Warm) -Tenderness on Palpation (Clare-wound Yes No No Skin Appearance) -Ulcer Cleansing Soap and Water Soap and Water Soap and Water -Foul Odor after Cleansing No No No -Anesthetic Used 4% Lidocaine 5% Lidocaine 4% Lidocaine Solution Gel Solution WC - Nurse 2 - General Ulcer CM Notes Start: 04/28/22 08:19 Freq: Status: Active Protocol: Activity Type Activity Date Activity User E-sign Co-sign Detail Recorded Client Recorded Date Recorded By Document 04/28/22 08:45 [id number] 04/28/22 08:47 JF Document 05/05/22 08:54 JF [id number] 05/05/22 09:06 JF Document 05/12/22 09:04 [id number] 05/12/22 09:07 Edit Result 05/12/22 09:04 JF (1) [id number] 05/12/22 09:09 JF (1) #2 L BREAST - Correct Patient => No - Correct Side, Site, Position => No - Correct Procedure => No - Procedure Performed => No - Post Debridement (cm) - Length => 1.5 - Post Debridement (cm) - Width => 1.5 - Post Debridement (cm) - Depth => 0.1 - Total Square (Post) (cm) => 2.25 - Area of Debridement (cm) - Length => 1.5 - Area of Debridement (cm) - Width => 1.5 - Total Square (Area) (cm) => 2.25 - Wound/Ulcer Outcome => Not Healed - Debridement - Subq, 1st 20sq cm => No #1 R BREAST - Post Debridement (cm) - Length => 2.5 - Post Debridement (cm) - Width => 4.2 - Post Debridement (cm) - Depth => 0.3 - Total Square (Post) (cm) => 10.50 - Area of Debridement (cm) - Length => 2.5 - Area of Debridement (cm) - Width => 4.2 - Total Square (Area) (cm) => 10.50 - Debridement - Subq, 1st 20sq cm => No 04/28/22 05/05/22 05/12/22 08:45 08:54 09:04 Wound Center Nurse 2 #2 L BREAST -Correct Patient No No -Correct Side, Site, Position No No -Correct Procedure No No -Procedure Performed No No -Post Debridement (cm) - Length 1.5 -Post Debridement (cm) - Width 1.5 -Post Debridement (cm) - Depth 0.1 -Total Square (Post) (cm) 2.25 -Area of Debridement (cm) - Length 1.5 -Area of Debridement (cm) - Width 1.5 -Total Square (Area) (cm) 2.25 -Wound/Ulcer Outcome Not Healed -Debridement - Subq, 1st 20sq cm No #1 R BREAST -Time 09:05 -Correct Patient Yes No -Correct Side, Site, Position Yes No -Correct Procedure Yes No -Procedure Performed Yes No -Type of Procedure Debridement -Clinical Debridement Subcutaneous -Tissue Removed Subcutaneous -Post Debridement (cm) - Length 0.5 2.5 -Post Debridement (cm) - Width 1.0 4.2 -Post Debridement (cm) - Depth 0.5 0.3 -Total Square (Post) (cm) 0.50 10.50 -Area of Debridement (cm) - Length 0.5 2.5 -Area of Debridement (cm) - Width 1.0 4.2 -Total Square (Area) (cm) 0.50 10.50 -Tunneling No -Undermining/Tunneling No -Circular Undermining No -Wound/Ulcer Outcome Not Healed Not Healed -Ulcer Cleansing Rinsed/ Irrigated with Saline -Foul Odor after Cleansing No -Bioengineered Tissue No -Bleeding Controlled with Pressure -Treatment Response Procedure Tolerated Well -Offloading No -Debridement - Subq, 1st 20sq cm Yes No Pain Scale: 0-10 Numeric Is Patient Pain Free? Yes Yes Yes WC - Nurse 3 - General Ulcer D/C NN Start: 04/28/22 08:19 Freq: Status: Active Protocol: Activity Type Activity Date Activity User E-sign Co-sign Detail Recorded Client Recorded Date Recorded By Document 05/05/22 09:16 [facility] [id number] 05/05/22 09:16 BMF Document 05/12/22 09:16 ML [id number] 05/12/22 09:17 ML 05/05/22 05/12/22 09:16 09:16 Wound Care Center Nurse 3 #2 L BREAST -Ulcer Cleansing Rinsed/ Irrigated with Saline -Primary Dressing Applied Aquacel AG 4x4 -Primary Dressing Covered/Secured with Dry Gauze & Roll Gauze, Secured with Tape -Aquacel AG 4x4 1 #1 R BREAST -Ulcer Cleansing Rinsed/ Rinsed/ Irrigated with Irrigated with Saline Saline -Foul Odor after Cleansing No No -Primary Dressing Applied Aquacel AG 4x4 Aquacel AG 4x4 -Other Dressing abd -Primary Dressing Covered/Secured with Dry Gauze & Roll Gauze, Secured with Tape -Aquacel AG 4x4 1 0 Treatment Response Procedure Tolerated Well Pain Scale: 0-10 Numeric Is Patient Pain Free? Yes Yes WC - Visit Discharge Discharge Condition Stable Ambulatory Status Ambulatory Transportation Private Auto Notes: atb oint to nipple area Lab / Micro Data Micro: Microbiology 05/12/22 09:00 Wound Abcess - Breast Gram Stain - Final 05/12/22 09:00 Wound Abcess - Breast Wound Culture - Preliminary Coag Negative Staph Assessment/Plan Assessment/Plan (1) Other complications of skin graft (allograft) (autograft): CODE(S): T86.828 - Other complications of skin graft (allograft) (autograft) (2) Status post bilateral mastectomy: CODE(S): Z90.13 - Acquired absence of bilateral breasts and nipples (3) Status post bilateral breast reconstruction: CODE(S): Z98.890 - Other specified postprocedural states (4) History of bilateral breast implants: CODE(S): Z98.82 - Breast implant status (5) Prophylactic breast removal: CODE(S): Z40.01 - Encounter for prophylactic removal of breast (6) Acquired absence of bilateral breasts and nipples: CODE(S): Z90.13 - Acquired absence of bilateral breasts and nipples (7) Genetic 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: CODE(S): Z15.01 - 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: CODE(S): Z15.89 - Genetic susceptibility to other disease; Z15.01 - Genetic 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; Z15.09 - Genetic susceptibility to other malignant neoplasm (9) Cancer phobia: CODE(S): F40.298 - Other specified phobia (10) Family history of breast cancer: CODE(S): Z80.3 - Family history of malignant neoplasm of breast (11) Disproportion of reconstructed breast: CODE(S): N65.1 - Disproportion of reconstructed breast (12) Acute postoperative anemia due to expected blood loss: CODE(S): D62 - Acute posthemorrhagic anemia (13) Former smoker: CODE(S): Z87.891 - Personal history of nicotine dependence PLAN: Plan This 46-year-old female presented today for her initial hyperbaric oxygen therapy session. She has been approved for hyperbaric oxygen treatments due to compromise of bilateral nipple skin grafts following prophylactic mastectomies with immediate reconstruction. A discussion was undertaken with the patient prior to entry into the hyperbaric oxygen chamber. The indications and risks of hyperbaric oxygen therapy were discussed with the patient, and it was ascertained that she has been thoroughly briefed on the indications and risks of the hyperbaric session, as well as the expected benefits. The patient was placed within the hyperbaric oxygen chamber, and hyperbaric oxygen therapy was initiated. In less than 10 minutes, and prior to full pressurization, the patient developed severe left ear pain. As result, the hyperbaric oxygen therapy session was discontinued, and the patient was brought to normal atmosphere. Upon removal from the hyperbaric chamber, otoscopy revealed erythema of the tympanic membranes. A discussion was undertaken with the patient, and the decision was made to arrange for an ENT consultation where it is anticipated that she will benefit from placement of myringotomy tubes. Once placed, hyperbaric oxygen therapy sessions will be recommenced. The patient was discharged in good condition. Total time: 15 minutes
== END 2022-05-13 23:59 | disposition home or self-care (01) ==
LOC: WC 09:00
PROVIDERS: PCP Family Medicine; Referring Provider Nurse Practitioner Family; Visit Provider Nurse Practitioner Family
DX: T86.828 Other complications of skin graft (allograft) (autograft) (principal); N65.1 Disproportion of reconstructed breast; Z48.02 Encounter for removal of sutures; Z15.89 Genetic susceptibility to other disease; Z15.01 Genetic susceptibility to malignant neoplasm of breast; Z90.13 Acquired absence of bilateral breasts and nipples; Z87.891 Personal history of nicotine dependence
CPT/HCPCS: 11042; 71046; 87070; 87075; 87077; 87186; 87205; 93005; 99214; G0463

== ENCOUNTER 2022-05-27 08:00 | Outpatient (RCR) | payer BC, SELFPAY ==
[2022-05-14 00:35] VITALS: BP 111/68; PULSE 73; RESP 16; TEMP 36.1
[2022-05-16 12:18] VITALS: BP 105/52; BP 124/74; PULSE 65; PULSE 67; RESP 16; RESP 17; TEMP 36.2
[2022-05-19 08:38] VITALS: BP 118/65; PULSE 71; RESP 18; TEMP 35.9
[2022-05-19 09:45] VITALS: BP 109/64; BP 118/65; PULSE 60; PULSE 71; RESP 17; RESP 18; TEMP 35.9; TEMP 36.1
--- NOTE | 2022-05-19 11:23 | PCM.WC.PN ---
History of Present Illness Date of Service: 05/19/22 Chief Complaint: Compromised bilateral nipple skin grafts after mastectomy with immediate reconstruction and placement of free nipple graft. History of Wound: 46 year old female who had a recent surgery on 04/11/22 where she underwent Prophylactic mastectomy right breast and Immediate right breast reconstruction with placement prepectoral cohesive gel implant (700 ml) and placement FlexHD acellular dermal matrix graft (23 x 26 cm) and mastopexy and Right nipple reconstruction with placement of free nipple graft and Prophylactic mastectomy left breast and Immediate left breast reconstruction with placement prepectoral cohesive gel implant (700 ml) and placement FlexHD acellular dermal matrix graft (23 x 26 cm) and mastopexy and Left nipple reconstruction with placement of free nipple graft. She was discharged from the hospital on 04/14/22. Pathology of the right breast showed involutional change with mild non-proliferative fibrocystic change. Left breast showed involutional change with mild non-proliferative fibrocystic change and focal benign microcalcifications. She has developed some compromise of the nipple grafts, the right being worse than the left. Nipples show good adherence but the color has darkened. Right nipple with 60 % take and the left nipple with 80% take, both with good adherence and some vascular ingrowth. Her incisions are dry and intact. Progress of Wound: Right and left nipple grafts with compromise. The areas of compromise are dark in color. The left nipple is showing good improvement. She has separation on her right breast at the Tzone and on the vertical incision. She does have exposure of the biologic graft but no exposure of her right implant. She has dry, black scabbing present on the right nipple and on the vertical incision which is acting like a biologic dressing. She is tolerating HBO well. Objective Data Objective Data Vital Signs: Vital Signs Temp Pulse Resp BP 96.7 F L 71 18 118/65 05/19/22 09:45 05/19/22 09:45 05/19/22 09:45 05/19/22 09:45 Charges/Coding Procedures Integumentary [id number]: [id number] Global Visit Debridement Note Debridement Note Wound debrided: breast Laterality: Right Type of Debridement: Selective debridement Depth: in the subcutaneous layer Percentage of wound debrided: 100 Severity: Limited To Skin Breakdown Amount of bleeding with debridement: None Debridement Free Text: Moistened saline gauze wiped on the right breast wound to gently remove any non viable tissue. No aggressive debridement performed. Post-Debridement Measurements and Additional Note: Post-Debridement Measurements/Treatment - Nurse 1 - General Ulcer Assessment Start: 05/16/22 12:18 Freq: Status: Active Protocol: HERNANDEZ Activity Type Activity Date Activity User E-sign Co-sign Detail Recorded Client Recorded Date Recorded By Document 05/19/22 08:38 DL [id number] 05/19/22 08:44 DL 05/19/22 08:38 WC - Today's Visit Information Type of service Follow-up Visit (Physician/TECHNOLOGY INFUSION SPECIALIST ) Arrival Mode Ambulatory Transfer Assistance None Patient Identification Verified (Name & Yes ) Patient Requires Transmission-Based No Precautions Safety Precautions NA Vital Signs Temperature (97.8 F-99.1 F) 96.7 F L Temperature Source Temporal Pulse Rate (60-100) 71 Pulse Location Monitor Respiratory Rate (12-18) 18 Respiratory rate source Observation Blood Pressure (90/60-120/80) 118/65 Blood Pressure Mean (mm Hg) 82 Source Monitor Position Sitting Blood Pressure Location Left Arm History Since Last Visit- (Skip if this is Patient's initial visit) Have you changed medications since your No last visit? Any new allergies or adverse reactions No Had a fall/change in ADL's that may No increase risk of falls Signs or symptoms of abuse and/or No neglect since last visit Have you been in the hospital since your No last visit? Has dressing in place as prescribed Yes Has compression in place as prescribed N/A Has offloadiing in place as prescribed N/A Experienced any changes in pain level or No management Left Footwear Regular Shoe Right Footwear Regular Shoe Pain Scale: 0-10 Numeric Is Patient Pain Free? Yes - Nurse 1 - General Ulcer Measurement Start: 05/16/22 12:18 Freq: Status: Active Protocol: Activity Type Activity Date Activity User E-sign Co-sign Detail Recorded Client Recorded Date Recorded By Document 05/19/22 08:38 DL [id number] 05/19/22 08:44 DL 05/19/22 08:38 Wound Center Nurse 1 #2 L BREAST -Current Size (cm) - Length 9 -Current Size (cm) - Width 2 -Current Size (cm) - Depth 0.1 -Total Square Cm 18 -Exudate Amt Small -Exudate Type Serosanguineous -Wound Margin Distinct, Outline Attached -Granulation Amt Medium (34-66%) -Granulation Quality [place] -Slough/Fibrin Yes -Necrosis Amt Large (67-100%) -Necrotic Tissue Type Eschar -Texture (Clare-wound Skin Appearance) Assessed -Moisture (Clare-wound Skin Appearance) Assessed -Color (Clare-wound Skin Appearance) Assessed -Temperature (Clare-wound Skin No Abnormality Appearance) (Pt Warm) -Tenderness on Palpation (Clare-wound Yes Skin Appearance) -Ulcer Cleansing Rinsed/ Irrigated with Saline -Foul Odor after Cleansing No -Anesthetic Used 4% Lidocaine Solution #1 R BREAST -Current Size (cm) - Length 10.8 -Current Size (cm) - Width 4.6 -Current Size (cm) - Depth 0.2 -Total Square Cm 49.68 -Exudate Amt Medium -Exudate Type Serosanguineous -Wound Margin Distinct, Outline Attached -Granulation Amt Small (1-33%) -Necrosis Amt Large (67-100%) -Necrotic Tissue Type Eschar -Texture (Clare-wound Skin Appearance) Assessed -Moisture (Clare-wound Skin Appearance) Assessed -Color (Clare-wound Skin Appearance) Assessed -Temperature (Clare-wound Skin No Abnormality Appearance) (Pt Warm) -Tenderness on Palpation (Clare-wound Yes Skin Appearance) -Ulcer Cleansing Rinsed/ Irrigated with Saline -Anesthetic Used 4% Lidocaine Solution Assessment/Plan Assessment/Plan (1) Other complications of skin graft (allograft) (autograft): CODE(S): T86.828 - Other complications of skin graft (allograft) (autograft) (2) Status post bilateral mastectomy: CODE(S): Z90.13 - Acquired absence of bilateral breasts and nipples (3) Status post bilateral breast reconstruction: CODE(S): Z98.890 - Other specified postprocedural states (4) History of bilateral breast implants: CODE(S): Z98.82 - Breast implant status (5) Prophylactic breast removal: CODE(S): Z40.01 - Encounter for prophylactic removal of breast (6) Acquired absence of bilateral breasts and nipples: CODE(S): Z90.13 - Acquired absence of bilateral breasts and nipples (7) Genetic 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: CODE(S): Z15.01 - 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: CODE(S): Z15.89 - Genetic susceptibility to other disease; Z15.01 - Genetic 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; Z15.09 - Genetic susceptibility to other malignant neoplasm (9) Cancer phobia: CODE(S): F40.298 - Other specified phobia (10) Family history of breast cancer: CODE(S): Z80.3 - Family history of malignant neoplasm of breast (11) Disproportion of reconstructed breast: CODE(S): N65.1 - Disproportion of reconstructed breast (12) Acute postoperative anemia due to expected blood loss: CODE(S): D62 - Acute posthemorrhagic anemia (13) Former smoker: CODE(S): Z87.891 - Personal history of nicotine dependence PLAN: Plan Patient evaluated at the wound healing center. She has been approved for HBOT, she ended up needing Tympanostomy tubes. She is now tolerating HBO well. She has a separation on her right breast. No implant is exposed. The biologic graft is exposed at the Tzone. Wound care - Place moistened silver alginate dressing to the tzones bilaterally daily. Place antibiotic ointment to the nipple grafts daily after HBO. Wound culture obtained on 05/12/22 which was positive for MRSE. She is taking Levaquin and tolerating it well. ? Her chest x-ray and EKG were both normal. Continue to keep head elevated and continue lifting restriction. Continue to wear compression bra/surgical bra or DORENE wraps. Continue antibiotic ointment to the nipple grafts daily. At discharge, her Hgb was 8.6.?Her recheck Hgb 11.5 on 04/23/22. ? Continue Iron supplementation. ? I discussed the right breast wound separation with Dr. Barrett. He agrees with treatment plans at this time. Follow up one week to see me. Call or come in sooner if develop any concerns. ??
[2022-05-20 09:50] VITALS: BP 107/58; BP 108/54; PULSE 61; PULSE 72; RESP 16; RESP 17; TEMP 36.2
--- NOTE | 2022-05-20 14:02 | HBO.PN.PCM_ITS ---
History of Present Illness Date of Service: 05/20/22 Chief Complaint: Compromised bilateral nipple skin grafts after mastectomy with immediate reconstruction and placement of free nipple graft. History of Wound: 46 year old female who had a recent surgery on 04/11/22 where she underwent Prophylactic mastectomy right breast and Immediate right breast reconstruction with placement prepectoral cohesive gel implant (700 ml) and placement FlexHD acellular dermal matrix graft (23 x 26 cm) and mastopexy and Right nipple reconstruction with placement of free nipple graft and Prophylactic mastectomy left breast and Immediate left breast reconstruction with placement prepectoral cohesive gel implant (700 ml) and placement FlexHD acellular dermal matrix graft (23 x 26 cm) and mastopexy and Left nipple reconstruction with placement of free nipple graft. She was discharged from the hospital on 04/14/22 . Pathology of the right breast showed involutional change with mild non- proliferative fibrocystic change. Left breast showed involutional change with mild non-proliferative fibrocystic change and focal benign microcalcifications. She has developed some compromise of the nipple grafts, the right being worse than the left. Nipples show good adherence but the color has darkened. Right nipple with 60 % take and the left nipple with 80% take, both with good adherence and some vascular ingrowth. Her incisions are dry and intact. She would benefit from having hyperbaric oxygen therapy to help salvage her nipple grafts. She has been approved for 20 treatments. She now has bilateral tympanostomy tubes placed. Progress of Wound: Today is the 3rd treatment of hyperbaric oxygen therapy.? The patient is scheduled for 20 treatments total. Tolerance of hyperbaric oxygen therapy: Hyperbaric oxygen therapy was administered as per the facility's protocol.? Hyperbaric oxygen therapy was administered at 2.0 SHARIF in 100% oxygen for 90 minutes without air breaks.? The patient tolerated hyperbaric oxygen therapy well, without complications or complaints. Upon emergence of the hyperbaric chamber, the patient's vital signs remained stable.? She was discharged in good condition. Objective Data Objective Data Vital Signs: Vital Signs Temp Pulse Resp BP 97.2 F L 72 17 107/58 L 05/20/22 09:50 05/20/22 09:50 05/20/22 09:50 05/20/22 09:50 Exam Physical Exam Const alert, oriented x3, no apparent distress and well nourished General Appearance: cooperative and well developed HEENT normocephalic HEENT Narrative: Bilateral TM clear with bilateral tympanostomy tubes in place. No erythema or bleeding. Head and Scalp: atraumatic Eyes PERRL and EOMs intact bilaterally Resp normal respiratory effort and no use of accessory muscles Effort and Inspection: able to speak in complete sentences Psych affect normal Appearance: grossly normal and well kempt Speech: normal speech Nursing Assessment and Debridement Post-Debridement Measurements and Additional Note: Post-Debridement Measurements/Treatment - Nurse 1 - General Ulcer Assessment Start: 05/16/22 12:18 Freq: Status: Active Protocol: HERNANDEZ Activity Type Activity Date Activity User E-sign Co-sign Detail Recorded Client Recorded Date Recorded By Document 05/19/22 08:38 DL [id number] 05/19/22 08:44 DL 05/19/22 08:38 WC - Today's Visit Information Type of service Follow-up Visit (Physician/ENTERPR[employer] APPLICATION ANALYST ) Arrival Mode Ambulatory Transfer Assistance None Patient Identification Verified (Name & Yes ) Patient Requires Transmission-Based No Precautions Safety Precautions NA Vital Signs Temperature (97.8 F-99.1 F) 96.7 F L Temperature Source Temporal Pulse Rate (60-100) 71 Pulse Location Monitor Respiratory Rate (12-18) 18 Respiratory rate source Observation Blood Pressure (90/60-120/80) 118/65 Blood Pressure Mean (mm Hg) 82 Source Monitor Position Sitting Blood Pressure Location Left Arm History Since Last Visit- (Skip if this is Patient's initial visit) Have you changed medications since your No last visit? Any new allergies or adverse reactions No Had a fall/change in ADL's that may No increase risk of falls Signs or symptoms of abuse and/or No neglect since last visit Have you been in the hospital since your No last visit? Has dressing in place as prescribed Yes Has compression in place as prescribed N/A Has offloadiing in place as prescribed N/A Experienced any changes in pain level or No management Left Footwear Regular Shoe Right Footwear Regular Shoe Pain Scale: 0-10 Numeric Is Patient Pain Free? Yes - Nurse 1 - General Ulcer Measurement Start: 05/16/22 12:18 Freq: Status: Active Protocol: Activity Type Activity Date Activity User E-sign Co-sign Detail Recorded Client Recorded Date Recorded By Document 05/19/22 08:38 DL [id number] 05/19/22 08:44 DL 05/19/22 08:38 Wound Center Nurse 1 #2 L BREAST -Current Size (cm) - Length 9 -Current Size (cm) - Width 2 -Current Size (cm) - Depth 0.1 -Total Square Cm 18 -Exudate Amt Small -Exudate Type Serosanguineous -Wound Margin Distinct, Outline Attached -Granulation Amt Medium (34-66%) -Granulation Quality [place] -Slough/Fibrin Yes -Necrosis Amt Large (67-100%) -Necrotic Tissue Type Eschar -Texture (Clare-wound Skin Appearance) Assessed -Moisture (Clare-wound Skin Appearance) Assessed -Color (Clare-wound Skin Appearance) Assessed -Temperature (Clare-wound Skin No Abnormality Appearance) (Pt Warm) -Tenderness on Palpation (Clare-wound Yes Skin Appearance) -Ulcer Cleansing Rinsed/ Irrigated with Saline -Foul Odor after Cleansing No -Anesthetic Used 4% Lidocaine Solution #1 R BREAST -Current Size (cm) - Length 10.8 -Current Size (cm) - Width 4.6 -Current Size (cm) - Depth 0.2 -Total Square Cm 49.68 -Exudate Amt Medium -Exudate Type Serosanguineous -Wound Margin Distinct, Outline Attached -Granulation Amt Small (1-33%) -Necrosis Amt Large (67-100%) -Necrotic Tissue Type Eschar -Texture (Clare-wound Skin Appearance) Assessed -Moisture (Clare-wound Skin Appearance) Assessed -Color (Clare-wound Skin Appearance) Assessed -Temperature (Clare-wound Skin No Abnormality Appearance) (Pt Warm) -Tenderness on Palpation (Clare-wound Yes Skin Appearance) -Ulcer Cleansing Rinsed/ Irrigated with Saline -Anesthetic Used 4% Lidocaine Solution WC - Nurse 2 - General Ulcer CM Notes Start: 05/16/22 12:18 Freq: Status: Active Protocol: Activity Type Activity Date Activity User E-sign Co-sign Detail Recorded Client Recorded Date Recorded By Document 05/19/22 08:50 [id number] 05/19/22 15:45 JF 05/19/22 08:50 Wound Center Nurse 2 #2 L BREAST -Time 15:44 -Correct Patient Yes -Correct Side, Site, Position Yes -Correct Procedure Yes -Procedure Performed Yes -Type of Procedure Debridement -Clinical Debridement Epidermis / Dermis -Tissue Removed Epidermis, Dermis -Post Debridement (cm) - Length 3.3 -Post Debridement (cm) - Width 1.5 -Post Debridement (cm) - Depth 0.1 -Total Square (Post) (cm) 4.95 -Area of Debridement (cm) - Length 3.3 -Area of Debridement (cm) - Width 1.5 -Total Square (Area) (cm) 4.95 -Tunneling No -Undermining/Tunneling No -Circular Undermining No -Wound/Ulcer Outcome Not Healed -Ulcer Cleansing Rinsed/ Irrigated with Saline -Foul Odor after Cleansing No -Bioengineered Tissue No -Bleeding Controlled with Pressure -Treatment Response Procedure Tolerated Well -Offloading No -Debridement - Open, 1st 20sq cm Yes #1 R BREAST -Correct Patient No -Correct Side, Site, Position No -Correct Procedure No -Procedure Performed No -Post Debridement (cm) - Length 10.8 -Post Debridement (cm) - Width 5.0 -Post Debridement (cm) - Depth 0.1 -Total Square (Post) (cm) 54.00 -Area of Debridement (cm) - Length 10.8 -Area of Debridement (cm) - Width 5.0 -Total Square (Area) (cm) 54.00 -Wound/Ulcer Outcome Not Healed -Offloading No -Debridement - Open, 1st 20sq cm No -Debridement - Subq, 1st 20sq cm No Pain Scale: 0-10 Numeric Is Patient Pain Free? Yes Assessment/Plan Assessment/Plan (1) Other complications of skin graft (allograft) (autograft): CODE(S): T86.828 - Other complications of skin graft (allograft) (autograft) (2) Failed skin graft: CODE(S): T86.821 - Skin graft (allograft) (autograft) failure (3) Failure of flap graft: CODE(S): T86.821 - Skin graft (allograft) (autograft) failure (4) Nonhealing surgical wound: CODE(S): T81.89XA - Other complications of procedures, not elsewhere classified, initial encounter (5) History of bilateral breast implants: CODE(S): Z98.82 - Breast implant status (6) Status post bilateral breast reconstruction: CODE(S): Z98.890 - Other specified postprocedural states (7) Status post bilateral mastectomy: CODE(S): Z90.13 - Acquired absence of bilateral breasts and nipples (8) Acquired absence of bilateral breasts and nipples: CODE(S): Z90.13 - Acquired absence of bilateral breasts and nipples (9) Monoallelic mutation of DEISY gene: CODE(S): Z15.89 - Genetic susceptibility to other disease; Z15.01 - Genetic 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; Z15.09 - Genetic susceptibility to other malignant neoplasm (10) History of bilateral oophorectomy: CODE(S): Z90.722 - Acquired absence of ovaries, bilateral PLAN: Plan The patient appears to be tolerating hyperbaric oxygen therapy well, without complaints or complications. The ear barotrauma she experienced initially has now resolved as result of the placement of myringotomy tubes. The patient's hyperbaric oxygen therapy sessions are to continue as per her medical plan.
[2022-05-21 11:38] VITALS: BP 105/49; BP 146/67; PULSE 61; PULSE 62; RESP 16; RESP 17; TEMP 36.3; TEMP 36.4
--- NOTE | 2022-05-21 11:47 | PCM.HBO.PN ---
History of Present Illness Date of Service: 05/21/22 Chief Complaint: Compromised bilateral nipple skin grafts after mastectomy with immediate reconstruction and placement of free nipple graft. History of Wound: 46 year old female who had a recent surgery on 04/11/22 where she underwent Prophylactic mastectomy right breast and Immediate right breast reconstruction with placement prepectoral cohesive gel implant (700 ml) and placement FlexHD acellular dermal matrix graft (23 x 26 cm) and mastopexy and Right nipple reconstruction with placement of free nipple graft and Prophylactic mastectomy left breast and Immediate left breast reconstruction with placement prepectoral cohesive gel implant (700 ml) and placement FlexHD acellular dermal matrix graft (23 x 26 cm) and mastopexy and Left nipple reconstruction with placement of free nipple graft. She was discharged from the hospital on 04/14/22. Pathology of the right breast showed involutional change with mild non-proliferative fibrocystic change. Left breast showed involutional change with mild non-proliferative fibrocystic change and focal benign microcalcifications. She has developed some compromise of the nipple grafts, the right being worse than the left. Nipples show good adherence but the color has darkened. Right nipple with 60 % take and the left nipple with 80% take, both with good adherence and some vascular ingrowth. Her incisions are dry and intact. She would benefit from having hyperbaric oxygen therapy to help salvage her nipple grafts. She has been approved for 20 treatments. She now has bilateral tympanostomy tubes placed. Progress of Wound: Today is the 4th treatment of hyperbaric oxygen therapy.? The patient is scheduled for 20 treatments total. Tolerance of hyperbaric oxygen therapy: Hyperbaric oxygen therapy was administered as per the facility's protocol.? Hyperbaric oxygen therapy was administered at 2.0 SHARIF in 100% oxygen for 90 minutes without air breaks.? The patient tolerated hyperbaric oxygen therapy well, without complications or complaints. Upon emergence of the hyperbaric chamber, the patient's vital signs remained stable.? She was discharged in good condition. Subjective Subjective Patient is having issues with her breast implants exposing Objective Data Objective Data Tolerating treatments well we will continue with scheduled . Practitioner Kailey went in to look at her implant Vital Signs: Vital Signs Temp Pulse Resp BP 97.4 F L 62 16 105/49 L 05/21/22 11:38 05/21/22 11:38 05/21/22 11:38 05/21/22 11:38 Lab / Micro Data Attestation: I reviewed the patient's lab results. Exam Nursing Assessment and Debridement Post-Debridement Measurements and Additional Note: Post-Debridement Measurements/Treatment - Nurse 1 - General Ulcer Assessment Start: 05/16/22 12:18 Freq: Status: Active Protocol: HERNANDEZ Activity Type Activity Date Activity User E-sign Co-sign Detail Recorded Client Recorded Date Recorded By Document 05/19/22 08:38 DL [id number] 05/19/22 08:44 DL 05/19/22 08:38 WC - Today's Visit Information Type of service Follow-up Visit (Physician/HOSPITALITY AMBASSADOR ) Arrival Mode Ambulatory Transfer Assistance None Patient Identification Verified (Name & Yes ) Patient Requires Transmission-Based No Precautions Safety Precautions NA Vital Signs Temperature (97.8 F-99.1 F) 96.7 F L Temperature Source Temporal Pulse Rate (60-100) 71 Pulse Location Monitor Respiratory Rate (12-18) 18 Respiratory rate source Observation Blood Pressure (90/60-120/80) 118/65 Blood Pressure Mean (mm Hg) 82 Source Monitor Position Sitting Blood Pressure Location Left Arm History Since Last Visit- (Skip if this is Patient's initial visit) Have you changed medications since your No last visit? Any new allergies or adverse reactions No Had a fall/change in ADL's that may No increase risk of falls Signs or symptoms of abuse and/or No neglect since last visit Have you been in the hospital since your No last visit? Has dressing in place as prescribed Yes Has compression in place as prescribed N/A Has offloadiing in place as prescribed N/A Experienced any changes in pain level or No management Left Footwear Regular Shoe Right Footwear Regular Shoe Pain Scale: 0-10 Numeric Is Patient Pain Free? Yes - Nurse 1 - General Ulcer Measurement Start: 05/16/22 12:18 Freq: Status: Active Protocol: Activity Type Activity Date Activity User E-sign Co-sign Detail Recorded Client Recorded Date Recorded By Document 05/19/22 08:38 DL [id number] 05/19/22 08:44 DL 05/19/22 08:38 Wound Center Nurse 1 #2 L BREAST -Current Size (cm) - Length 9 -Current Size (cm) - Width 2 -Current Size (cm) - Depth 0.1 -Total Square Cm 18 -Exudate Amt Small -Exudate Type Serosanguineous -Wound Margin Distinct, Outline Attached -Granulation Amt Medium (34-66%) -Granulation Quality [place] -Slough/Fibrin Yes -Necrosis Amt Large (67-100%) -Necrotic Tissue Type Eschar -Texture (Clare-wound Skin Appearance) Assessed -Moisture (Clare-wound Skin Appearance) Assessed -Color (Clare-wound Skin Appearance) Assessed -Temperature (Clare-wound Skin No Abnormality Appearance) (Pt Warm) -Tenderness on Palpation (Clare-wound Yes Skin Appearance) -Ulcer Cleansing Rinsed/ Irrigated with Saline -Foul Odor after Cleansing No -Anesthetic Used 4% Lidocaine Solution #1 R BREAST -Current Size (cm) - Length 10.8 -Current Size (cm) - Width 4.6 -Current Size (cm) - Depth 0.2 -Total Square Cm 49.68 -Exudate Amt Medium -Exudate Type Serosanguineous -Wound Margin Distinct, Outline Attached -Granulation Amt Small (1-33%) -Necrosis Amt Large (67-100%) -Necrotic Tissue Type Eschar -Texture (Clare-wound Skin Appearance) Assessed -Moisture (Clare-wound Skin Appearance) Assessed -Color (Clare-wound Skin Appearance) Assessed -Temperature (Clare-wound Skin No Abnormality Appearance) (Pt Warm) -Tenderness on Palpation (Clare-wound Yes Skin Appearance) -Ulcer Cleansing Rinsed/ Irrigated with Saline -Anesthetic Used 4% Lidocaine Solution WC - Nurse 2 - General Ulcer CM Notes Start: 05/16/22 12:18 Freq: Status: Active Protocol: Activity Type Activity Date Activity User E-sign Co-sign Detail Recorded Client Recorded Date Recorded By Document 05/19/22 08:50 FÉLIX [id number] 05/19/22 15:45 FÉLIX 05/19/22 08:50 Wound Center Nurse 2 #2 L BREAST -Time 15:44 -Correct Patient Yes -Correct Side, Site, Position Yes -Correct Procedure Yes -Procedure Performed Yes -Type of Procedure Debridement -Clinical Debridement Epidermis / Dermis -Tissue Removed Epidermis, Dermis -Post Debridement (cm) - Length 3.3 -Post Debridement (cm) - Width 1.5 -Post Debridement (cm) - Depth 0.1 -Total Square (Post) (cm) 4.95 -Area of Debridement (cm) - Length 3.3 -Area of Debridement (cm) - Width 1.5 -Total Square (Area) (cm) 4.95 -Tunneling No -Undermining/Tunneling No -Circular Undermining No -Wound/Ulcer Outcome Not Healed -Ulcer Cleansing Rinsed/ Irrigated with Saline -Foul Odor after Cleansing No -Bioengineered Tissue No -Bleeding Controlled with Pressure -Treatment Response Procedure Tolerated Well -Offloading No -Debridement - Open, 1st 20sq cm Yes #1 R BREAST -Correct Patient No -Correct Side, Site, Position No -Correct Procedure No -Procedure Performed No -Post Debridement (cm) - Length 10.8 -Post Debridement (cm) - Width 5.0 -Post Debridement (cm) - Depth 0.1 -Total Square (Post) (cm) 54.00 -Area of Debridement (cm) - Length 10.8 -Area of Debridement (cm) - Width 5.0 -Total Square (Area) (cm) 54.00 -Wound/Ulcer Outcome Not Healed -Offloading No -Debridement - Open, 1st 20sq cm No -Debridement - Subq, 1st 20sq cm No Pain Scale: 0-10 Numeric Is Patient Pain Free? Yes Assessment/Plan Assessment/Plan (1) Other complications of skin graft (allograft) (autograft): CODE(S): T86.828 - Other complications of skin graft (allograft) (autograft) (2) Failed skin graft: CODE(S): T86.821 - Skin graft (allograft) (autograft) failure (3) Failure of flap graft: CODE(S): T86.821 - Skin graft (allograft) (autograft) failure (4) Nonhealing surgical wound: CODE(S): T81.89XA - Other complications of procedures, not elsewhere classified, initial encounter (5) History of bilateral breast implants: CODE(S): Z98.82 - Breast implant status (6) Status post bilateral breast reconstruction: CODE(S): Z98.890 - Other specified postprocedural states (7) Status post bilateral mastectomy: CODE(S): Z90.13 - Acquired absence of bilateral breasts and nipples (8) Acquired absence of bilateral breasts and nipples: CODE(S): Z90.13 - Acquired absence of bilateral breasts and nipples (9) Monoallelic mutation of DEISY gene: CODE(S): Z15.89 - Genetic susceptibility to other disease; Z15.01 - Genetic 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; Z15.09 - Genetic susceptibility to other malignant neoplasm (10) History of bilateral oophorectomy: CODE(S): Z90.722 - Acquired absence of ovaries, bilateral PLAN: Plan The patient appears to be tolerating hyperbaric oxygen therapy well, without complaints or complications. The ear barotrauma she experienced initially has now resolved as result of the placement of myringotomy tubes. The patient's hyperbaric oxygen therapy sessions are to continue as per her medical plan.
--- NOTE | 2022-05-22 09:21 | PCM.HBO.PN ---
History of Present Illness Date of Service: 05/22/22 Chief Complaint: Compromised bilateral nipple skin grafts after mastectomy with immediate reconstruction and placement of free nipple graft. History of Wound: 46 year old female who had a recent surgery on 04/11/22 where she underwent Prophylactic mastectomy right breast and Immediate right breast reconstruction with placement prepectoral cohesive gel implant (700 ml) and placement FlexHD acellular dermal matrix graft (23 x 26 cm) and mastopexy and Right nipple reconstruction with placement of free nipple graft and Prophylactic mastectomy left breast and Immediate left breast reconstruction with placement prepectoral cohesive gel implant (700 ml) and placement FlexHD acellular dermal matrix graft (23 x 26 cm) and mastopexy and Left nipple reconstruction with placement of free nipple graft. She was discharged from the hospital on 04/14/22. Pathology of the right breast showed involutional change with mild non-proliferative fibrocystic change. Left breast showed involutional change with mild non-proliferative fibrocystic change and focal benign microcalcifications. She has developed some compromise of the nipple grafts, the right being worse than the left. Nipples show good adherence but the color has darkened. Right nipple with 60 % take and the left nipple with 80% take, both with good adherence and some vascular ingrowth. Her incisions are dry and intact. She would benefit from having hyperbaric oxygen therapy to help salvage her nipple grafts. She has been approved for 20 treatments. She now has bilateral tympanostomy tubes placed. Progress of Wound: Today is the 5th treatment of hyperbaric oxygen therapy.? The patient is scheduled for 20 treatments total. Tolerance of hyperbaric oxygen therapy: Hyperbaric oxygen therapy was administered as per the facility's protocol.? Hyperbaric oxygen therapy was administered at 2.0 SHARIF in 100% oxygen for 90 minutes without air breaks.? The patient tolerated hyperbaric oxygen therapy well, without complications or complaints. Upon emergence of the hyperbaric chamber, the patient's vital signs remained stable.? She was discharged in good condition. Objective Data Objective Data Vital Signs: Vital Signs Temp Pulse Resp BP 97.4 F L 62 16 105/49 L 05/21/22 11:38 05/21/22 11:38 05/21/22 11:38 05/21/22 11:38 Exam Physical Exam Const alert, oriented x3, no apparent distress and well nourished General Appearance: cooperative and well developed HEENT normocephalic HEENT Narrative: Bilateral TM clear with bilateral tympanostomy tubes in place. No erythema or bleeding. Head and Scalp: atraumatic Eyes PERRL and EOMs intact bilaterally Resp normal respiratory effort and no use of accessory muscles Effort and Inspection: able to speak in complete sentences Psych affect normal Appearance: grossly normal and well kempt Speech: normal speech Nursing Assessment and Debridement Post-Debridement Measurements and Additional Note: Post-Debridement Measurements/Treatment - Nurse 1 - General Ulcer Assessment Start: 05/16/22 12:18 Freq: Status: Active Protocol: HERNANDEZ Activity Type Activity Date Activity User E-sign Co-sign Detail Recorded Client Recorded Date Recorded By Document 05/19/22 08:38 DL [id number] 05/19/22 08:44 DL 05/19/22 08:38 WC - Today's Visit Information Type of service Follow-up Visit (Physician/OYSTER BUYER ) Arrival Mode Ambulatory Transfer Assistance None Patient Identification Verified (Name & Yes ) Patient Requires Transmission-Based No Precautions Safety Precautions NA Vital Signs Temperature (97.8 F-99.1 F) 96.7 F L Temperature Source Temporal Pulse Rate (60-100) 71 Pulse Location Monitor Respiratory Rate (12-18) 18 Respiratory rate source Observation Blood Pressure (90/60-120/80) 118/65 Blood Pressure Mean (mm Hg) 82 Source Monitor Position Sitting Blood Pressure Location Left Arm History Since Last Visit- (Skip if this is Patient's initial visit) Have you changed medications since your No last visit? Any new allergies or adverse reactions No Had a fall/change in ADL's that may No increase risk of falls Signs or symptoms of abuse and/or No neglect since last visit Have you been in the hospital since your No last visit? Has dressing in place as prescribed Yes Has compression in place as prescribed N/A Has offloadiing in place as prescribed N/A Experienced any changes in pain level or No management Left Footwear Regular Shoe Right Footwear Regular Shoe Pain Scale: 0-10 Numeric Is Patient Pain Free? Yes - Nurse 1 - General Ulcer Measurement Start: 05/16/22 12:18 Freq: Status: Active Protocol: Activity Type Activity Date Activity User E-sign Co-sign Detail Recorded Client Recorded Date Recorded By Document 05/19/22 08:38 DL [id number] 05/19/22 08:44 DL 05/19/22 08:38 Wound Center Nurse 1 #2 L BREAST -Current Size (cm) - Length 9 -Current Size (cm) - Width 2 -Current Size (cm) - Depth 0.1 -Total Square Cm 18 -Exudate Amt Small -Exudate Type Serosanguineous -Wound Margin Distinct, Outline Attached -Granulation Amt Medium (34-66%) -Granulation Quality [place] -Slough/Fibrin Yes -Necrosis Amt Large (67-100%) -Necrotic Tissue Type Eschar -Texture (Clare-wound Skin Appearance) Assessed -Moisture (Clare-wound Skin Appearance) Assessed -Color (Clare-wound Skin Appearance) Assessed -Temperature (Clare-wound Skin No Abnormality Appearance) (Pt Warm) -Tenderness on Palpation (Clare-wound Yes Skin Appearance) -Ulcer Cleansing Rinsed/ Irrigated with Saline -Foul Odor after Cleansing No -Anesthetic Used 4% Lidocaine Solution #1 R BREAST -Current Size (cm) - Length 10.8 -Current Size (cm) - Width 4.6 -Current Size (cm) - Depth 0.2 -Total Square Cm 49.68 -Exudate Amt Medium -Exudate Type Serosanguineous -Wound Margin Distinct, Outline Attached -Granulation Amt Small (1-33%) -Necrosis Amt Large (67-100%) -Necrotic Tissue Type Eschar -Texture (Clare-wound Skin Appearance) Assessed -Moisture (Clare-wound Skin Appearance) Assessed -Color (Clare-wound Skin Appearance) Assessed -Temperature (Clare-wound Skin No Abnormality Appearance) (Pt Warm) -Tenderness on Palpation (Clare-wound Yes Skin Appearance) -Ulcer Cleansing Rinsed/ Irrigated with Saline -Anesthetic Used 4% Lidocaine Solution WC - Nurse 2 - General Ulcer CM Notes Start: 05/16/22 12:18 Freq: Status: Active Protocol: Activity Type Activity Date Activity User E-sign Co-sign Detail Recorded Client Recorded Date Recorded By Document 05/19/22 08:50 FÉLIX [id number] 05/19/22 15:45 JF 05/19/22 08:50 Wound Center Nurse 2 #2 L BREAST -Time 15:44 -Correct Patient Yes -Correct Side, Site, Position Yes -Correct Procedure Yes -Procedure Performed Yes -Type of Procedure Debridement -Clinical Debridement Epidermis / Dermis -Tissue Removed Epidermis, Dermis -Post Debridement (cm) - Length 3.3 -Post Debridement (cm) - Width 1.5 -Post Debridement (cm) - Depth 0.1 -Total Square (Post) (cm) 4.95 -Area of Debridement (cm) - Length 3.3 -Area of Debridement (cm) - Width 1.5 -Total Square (Area) (cm) 4.95 -Tunneling No -Undermining/Tunneling No -Circular Undermining No -Wound/Ulcer Outcome Not Healed -Ulcer Cleansing Rinsed/ Irrigated with Saline -Foul Odor after Cleansing No -Bioengineered Tissue No -Bleeding Controlled with Pressure -Treatment Response Procedure Tolerated Well -Offloading No -Debridement - Open, 1st 20sq cm Yes #1 R BREAST -Correct Patient No -Correct Side, Site, Position No -Correct Procedure No -Procedure Performed No -Post Debridement (cm) - Length 10.8 -Post Debridement (cm) - Width 5.0 -Post Debridement (cm) - Depth 0.1 -Total Square (Post) (cm) 54.00 -Area of Debridement (cm) - Length 10.8 -Area of Debridement (cm) - Width 5.0 -Total Square (Area) (cm) 54.00 -Wound/Ulcer Outcome Not Healed -Offloading No -Debridement - Open, 1st 20sq cm No -Debridement - Subq, 1st 20sq cm No Pain Scale: 0-10 Numeric Is Patient Pain Free? Yes Charges/Coding Wound Center CF Procedures HBO Supervision: [id number] Hyperbaric Oxygen; supervision Assessment/Plan Assessment/Plan (1) Other complications of skin graft (allograft) (autograft): CODE(S): T86.828 - Other complications of skin graft (allograft) (autograft) (2) Failed skin graft: CODE(S): T86.821 - Skin graft (allograft) (autograft) failure (3) Failure of flap graft: CODE(S): T86.821 - Skin graft (allograft) (autograft) failure (4) Nonhealing surgical wound: CODE(S): T81.89XA - Other complications of procedures, not elsewhere classified, initial encounter (5) History of bilateral breast implants: CODE(S): Z98.82 - Breast implant status (6) Status post bilateral breast reconstruction: CODE(S): Z98.890 - Other specified postprocedural states (7) Status post bilateral mastectomy: CODE(S): Z90.13 - Acquired absence of bilateral breasts and nipples (8) Acquired absence of bilateral breasts and nipples: CODE(S): Z90.13 - Acquired absence of bilateral breasts and nipples (9) Monoallelic mutation of DEISY gene: CODE(S): Z15.89 - Genetic susceptibility to other disease; Z15.01 - Genetic 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; Z15.09 - Genetic susceptibility to other malignant neoplasm PLAN: Plan The patient appears to be tolerating hyperbaric oxygen therapy well which will be continued as per her medical plan. This note was generated with [employer] software. It may contain incorrect words, spelling, and punctuation that were not noted in checking the note before signing.
[2022-05-22 10:09] VITALS: BP 113/65; BP 114/62; PULSE 58; PULSE 64; RESP 16; RESP 17; TEMP 36.1; TEMP 36.6
[2022-05-26 09:10] VITALS: BP 110/52; BP 122/69; PULSE 61; PULSE 65; RESP 16; RESP 17; TEMP 36.4; TEMP 36.5
--- NOTE | 2022-05-26 09:17 | PCM.HBO.PN ---
History of Present Illness Date of Service: 05/22/22 Chief Complaint: Compromised bilateral nipple skin grafts after mastectomy with immediate reconstruction and placement of free nipple graft. History of Wound: 46 year old female who had a recent surgery on 04/11/22 where she underwent Prophylactic mastectomy right breast and Immediate right breast reconstruction with placement prepectoral cohesive gel implant (700 ml) and placement FlexHD acellular dermal matrix graft (23 x 26 cm) and mastopexy and Right nipple reconstruction with placement of free nipple graft and Prophylactic mastectomy left breast and Immediate left breast reconstruction with placement prepectoral cohesive gel implant (700 ml) and placement FlexHD acellular dermal matrix graft (23 x 26 cm) and mastopexy and Left nipple reconstruction with placement of free nipple graft. She was discharged from the hospital on 04/14/22. Pathology of the right breast showed involutional change with mild non-proliferative fibrocystic change. Left breast showed involutional change with mild non-proliferative fibrocystic change and focal benign microcalcifications. She has developed some compromise of the nipple grafts, the right being worse than the left. Nipples show good adherence but the color has darkened. Right nipple with 60 % take and the left nipple with 80% take, both with good adherence and some vascular ingrowth. Her incisions are dry and intact. She would benefit from having hyperbaric oxygen therapy to help salvage her nipple grafts. She has been approved for 20 treatments. She now has bilateral tympanostomy tubes placed. Progress of Wound: Today is the 6th treatment of hyperbaric oxygen therapy.? The patient is scheduled for 20 treatments total. Tolerance of hyperbaric oxygen therapy: Hyperbaric oxygen therapy was administered as per the facility's protocol.? Hyperbaric oxygen therapy was administered at 2.0 SHARIF in 100% oxygen for 90 minutes without air breaks.? The patient tolerated hyperbaric oxygen therapy well, without complications or complaints. Upon emergence of the hyperbaric chamber, the patient's vital signs remained stable.? She was discharged in good condition. Objective Data Objective Data Vital Signs: Vital Signs Temp Pulse Resp BP 97.6 F L 65 16 122/69 H 05/26/22 09:10 05/26/22 09:10 05/26/22 09:10 05/26/22 09:10 Exam Physical Exam Const alert, oriented x3 and no apparent distress General Appearance: cooperative HEENT normocephalic HEENT Narrative: Bilateral TM clear with bilateral tympanostomy tubes in place. Eyes General Eye: normal appearance of both eyes Resp normal respiratory effort and clear to auscultation bilaterally Effort and Inspection: able to speak in complete sentences Cardio regular rate and regular rhythm Psych affect normal Speech: normal speech Assessment/Plan Assessment/Plan (1) Other complications of skin graft (allograft) (autograft): CODE(S): T86.828 - Other complications of skin graft (allograft) (autograft) (2) Failed skin graft: CODE(S): T86.821 - Skin graft (allograft) (autograft) failure (3) Failure of flap graft: CODE(S): T86.821 - Skin graft (allograft) (autograft) failure (4) Nonhealing surgical wound: CODE(S): T81.89XA - Other complications of procedures, not elsewhere classified, initial encounter (5) History of bilateral breast implants: CODE(S): Z98.82 - Breast implant status (6) Status post bilateral breast reconstruction: CODE(S): Z98.890 - Other specified postprocedural states (7) Status post bilateral mastectomy: CODE(S): Z90.13 - Acquired absence of bilateral breasts and nipples (8) Acquired absence of bilateral breasts and nipples: CODE(S): Z90.13 - Acquired absence of bilateral breasts and nipples (9) Monoallelic mutation of DEISY gene: CODE(S): Z15.89 - Genetic susceptibility to other disease; Z15.01 - Genetic 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; Z15.09 - Genetic susceptibility to other malignant neoplasm PLAN: Plan The patient appears to be tolerating hyperbaric oxygen therapy well which will be continued as per her medical plan. This note was generated with [employer] software. It may contain incorrect words, spelling, and punctuation that were not noted in checking the note before signing.
[2022-05-27 09:30] VITALS: BP 106/64; BP 117/48; PULSE 59; PULSE 67; RESP 17; RESP 18; TEMP 36.3
== END 2022-06-13 23:59 | disposition home or self-care (01) ==
LOC: WC 08:00
PROVIDERS: PCP Family Medicine; Referring Provider Nurse Practitioner Family; Visit Provider Nurse Practitioner Family
DX: T86.828 Other complications of skin graft (allograft) (autograft) (principal); T81.89XA Other complications of procedures, not elsewhere classified, initial encounter; Y83.2 Surgical operation with anastomosis, bypass or graft as the cause of abnormal reaction of the patient, or of later complication, without mention of misadventure at the time of the procedure; N65.1 Disproportion of reconstructed breast; Z79.899 Other long term (current) drug therapy; Z15.01 Genetic susceptibility to malignant neoplasm of breast; Z15.09 Genetic susceptibility to other malignant neoplasm; Z15.89 Genetic susceptibility to other disease; Z90.13 Acquired absence of bilateral breasts and nipples; Z90.722 Acquired absence of ovaries, bilateral; Z87.891 Personal history of nicotine dependence
CPT/HCPCS: 97597; 99183; G0277

== ENCOUNTER 2022-05-30 15:40 | Observation (INO) | payer BC, SELFPAY ==
[2022-05-27 10:58] LABS: Magnesium 2.2 mg/dL (1.6-2.6)
--- NOTE | 2022-05-27 14:03 | HBO.PN.PCM_ITS ---
History of Present Illness Date of Service: 05/27/22 Chief Complaint: Compromised bilateral nipple skin grafts after mastectomy with immediate reconstruction and placement of free nipple graft. History of Wound: 46 year old female who had a recent surgery on 04/11/22 where she underwent Prophylactic mastectomy right breast and Immediate right breast reconstruction with placement prepectoral cohesive gel implant (700 ml) and placement FlexHD acellular dermal matrix graft (23 x 26 cm) and mastopexy and Right nipple reconstruction with placement of free nipple graft and Prophylactic mastectomy left breast and Immediate left breast reconstruction with placement prepectoral cohesive gel implant (700 ml) and placement FlexHD acellular dermal matrix graft (23 x 26 cm) and mastopexy and Left nipple reconstruction with placement of free nipple graft. She was discharged from the hospital on 04/14/22 . Pathology of the right breast showed involutional change with mild non- proliferative fibrocystic change. Left breast showed involutional change with mild non-proliferative fibrocystic change and focal benign microcalcifications. She has developed some compromise of the nipple grafts, the right being worse than the left. Nipples show good adherence but the color has darkened. Right nipple with 60 % take and the left nipple with 80% take, both with good adherence and some vascular ingrowth. Her incisions are dry and intact. She would benefit from having hyperbaric oxygen therapy to help salvage her nipple grafts. She has been approved for 20 treatments. She now has bilateral tympanostomy tubes placed. Subjective Subjective The patient presented today for hyperbaric oxygen therapy. Today's session represents the seventh session of a planned 20 such sessions. Hyperbaric oxygen therapy was administered as per the facility's protocol. Hyperbaric oxygen therapy was administered at 2 roseann for 90 minutes with no air breaks. Patient tolerated hyperbaric oxygen therapy well, without complaints or complications. Upon emergence from the hyperbaric chamber, the patient's vital signs remained stable. She was discharged in good condition. Objective Data Lab / Micro Data Labs: Laboratory Results - last 24 hr 05/27/22 10:29: Magnesium 2.2 Exam Physical Exam Const alert, oriented x3, no apparent distress and well nourished General Appearance: cooperative and well developed HEENT normocephalic Head and Scalp: atraumatic Eyes PERRL and EOMs intact bilaterally Neck no JVD General: trachea midline Resp normal respiratory effort and no use of accessory muscles Effort and Inspection: able to speak in complete sentences Psych affect normal Appearance: grossly normal and well kempt Speech: normal speech Assessment/Plan Assessment/Plan (1) Other complications of skin graft (allograft) (autograft): CODE(S): T86.828 - Other complications of skin graft (allograft) (autograft) (2) Failed skin graft: CODE(S): T86.821 - Skin graft (allograft) (autograft) failure (3) Failure of flap graft: CODE(S): T86.821 - Skin graft (allograft) (autograft) failure (4) Nonhealing surgical wound: CODE(S): T81.89XA - Other complications of procedures, not elsewhere classified, initial encounter (5) History of bilateral breast implants: CODE(S): Z98.82 - Breast implant status (6) Status post bilateral breast reconstruction: CODE(S): Z98.890 - Other specified postprocedural states (7) Status post bilateral mastectomy: CODE(S): Z90.13 - Acquired absence of bilateral breasts and nipples (8) Acquired absence of bilateral breasts and nipples: CODE(S): Z90.13 - Acquired absence of bilateral breasts and nipples (9) Monoallelic mutation of ROSEANN gene: CODE(S): Z15.89 - Genetic susceptibility to other disease; Z15.01 - Genetic 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; Z15.09 - Genetic susceptibility to other malignant neoplasm PLAN: Plan The patient appears to be tolerating hyperbaric oxygen therapy well, which will be continued as per her medical plan. This note was generated with [employer] software. It may contain incorrect words, spelling, and punctuation that were not noted in checking the note before signing.
[2022-05-30] VITALS (12 sets, daily range): BP systolic 98–122; BP diastolic 49–65; PULSE 70–118; RESP 16–18; TEMP 36.5–36.9; O2SAT 94–100; BMI 27.3
[2022-05-30] MEDS: Lactated Ringers 1,000 ML 40 ML IV ×2 (07:35→10:31)
[2022-05-30] MEDS: Magnesium 1 GM over 15 mins IV (07:36)
[2022-05-30] MEDS: Scopolamine 1mg/72hr Patch 1 PATCH TD (07:38)
[2022-05-30] MEDS: Gabapentin 600 MG Tablet PO (07:39)
[2022-05-30] MEDS: Acetaminophen 500 MG Tablet 1000 MG PO ×2 (07:39→17:29)
[2022-05-30 07:55] LABS: Bedside Glucose 88 mg/dL (74-106)
--- NOTE | 2022-05-30 08:10 | HP.PCM_ITS ---
History and Physical Date of Admission: 05/30/22 HISTORY OF PRESENT ILLNESS Patient had surgery on 04/11/22 where she underwent prophylactic mastectomy right breast and immediate right breast reconstruction with placement prepectoral cohesive gel implant (700 ml) and placement FlexHD acellular dermal matrix graft (23 x 26 cm) and mastopexy and right nipple reconstruction with placement of free nipple graft and prophylactic mastectomy left breast and immediate left breast reconstruction with placement prepectoral cohesive gel implant (700 ml) and placement FlexHD acellular dermal matrix graft (23 x 26 cm) and mastopexy and left nipple reconstruction with placement of free nipple graft.? She was discharged from the hospital on 04/14/22. Initially the incisions were healing satisfactory. There was some nipple graft compromise and she was started on HBO treatments. About a month postop she started developing some incisional breakdown at the Tzone area on the right. Silver dressing changes were started. A wound culture was obtained on 05/12/22. It was positive for MRSE. She was started on Levaquin and Doxycycline was added. The Tzone wound on the right extended up toward the nipple. Initially the implant was not exposed, but eventually became exposed on the right. The left breast Tzone is superficial and much smaller. Earlier this week she came to the office with concerns that the left breast Tzone wound is enlarging.? The right breast implant is already exposed at the Tzone.? ? The left breast Tzone area shows superficial separation with no exposed breast implant at this time.? There is the chance that the left breast Tzone area will stabilize and not continue to enlarge.? There is also the chance that the left breast implant will not become exposed.? However, there is the chance (even low chance) that the left breast implant will become exposed.? I want to minimize the amount of surgeries this patient has.? Will make the decision at the time of surgery.? If the left breast Tzone wound continues to slowly increase, then i would debride both breast wounds with removal of the cohesive gel implants.? If the breast pocket wounds close easily without evidence of residual infection, then would place saline tissue expanders into the breast pocket wounds.? If the wound edges still appear swollen and there is concern that the sutures may not ultimately hold, then would hold off on placement of the saline tissue expanders.? After healing has occurred and any residual infection treated, can return to the operating room for placement of the saline tissue expanders with acellular dermal matrix grafts.? Tentative time frame would be around 3 months. She [facility] and was approved for HBO treatments.? After the first treatment on 05/13/22, she developed left ear pain and had ear tubes placed.? She is now tolerating the HBO treatments. She initially presented for evaluation of her breasts after having genetic testing done in 2019.? The testing was done because of a family history of breast cancer (Grandmother and Aunt).? The genes tested were DEISY, BRCA1, BRCA2, CDH1, CHEK2, PALB2, PTEN, and TP53.? The testing was done by [employer] 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 The conclusion was high risk for female breast cancer and elevated risk for pancreatic cancer.? Before deciding on having any surgery to her breasts, she wanted to due her own due diligence.? Then COVID hit.? Earlier this year she was told she was at high risk for ovarian cancer due to this mutation and she underwent removal of both ovaries.? She already had a hysterectomy.? Because of this, she is concerned about getting breast cancer and has developed cancerphobia.? She comes in today to further discuss her genetic testing results and to discuss surgical options for treatment.? Her last mammogram was in May,, in [place].? Patient states it was normal.? It showed very dense breast parenchyma bilaterally.? No obvious mass lesion.? Palpable nodule left breast 2 olock position in subcutaneous tissue such as sebaceous cyst.? Benign, no evidence malignancy.? We have received medical approval for her breast reconstruction surgery.? She has decided on proceeding with bilateral prophylactic mastectomy with pr epectoral breast implant reconstruction possible placement saline tissue airport operations coordinator and acellular dermal matrix graft.? Initially she wanted simple mastectomies which would include the nipple because of the higher risk of developing breast cancer. PAST MEDICAL HISTORY Acquired absence of bilateral breasts and nipples Alcohol use Cancer phobia Disproportion of reconstructed breast Family history of breast cancer Former smoker Frequent headaches Gastric reflux Genetic 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 Migraine headache Monoallelic mutation of DEISY gene Pneumonia Prophylactic ovary removal Ptosis of both breasts Wears contact lenses Wears glasses PAST SURGICAL HISTORY prophylactic mastectomy right breast and immediate right breast reconstruction with placement prepectoral cohesive gel implant (700 ml) and placement FlexHD acellular dermal matrix graft (23 x 26 cm) and mastopexy and right nipple reconstruction with placement of free nipple graft and prophylactic mastectomy left breast and immediate left breast reconstruction with placement prepectoral cohesive gel implant (700 ml) and placement FlexHD acellular dermal matrix graft (23 x 26 cm) and mastopexy and left nipple reconstruction with placement of free nipple graft - 04/11/22 History of bilateral oophorectomy History of bladder surgery History of hysterectomy ALLERGIES Penicillins [PCN] MEDICATIONS ibuprofen omeprazole sumatriptan succinate valacyclovir Levaquin Doxycycline FAMILY HISTORY Grandmother -?Breast cancer Aunt -?Breast cancer Father -?Diabetes SOCIAL HISTORY Smoking Status:? Former smoker alcohol intake:? current substance use type:? does not use REVIEW OF SYSTEMS General - Denies fever, fatigue, and weight loss. Eyes - Denies cataracts and glaucoma. ENT - Denies nasal congestion and sore throat. Endocrine - Denies excessive thirst and urination.? Has family history of breast cancer (Grandmother and Aunt).? She had genetic testing which showed an abnormal DEISY mutation.? Had hysterectomy and earlier this year, she had bilateral oophorectomy. Skin - Denies suspicious lesions and skin cancer. Musculoskeletal - Denies joint pain, joint stiffness, weakness of muscles and joints, back pain, and arthritis. Neuro - Has headaches. Cardiovascular - Denies chest pain, fatigue, and shortness of breath with exertion. Psych - Denies anxiety and depression. Respiratory - Denies chronic cough and shortness of breath.? Patient is a former smoker. Gastrointestinal - Denies nausea, vomiting, diarrhea.? Has constipation. Hematologic - Denies abnormal bruising and bleeding. Genitourinary - Denies hematuria and urinary frequency. PHYSICAL EXAMINATION General - Alert and Oriented.? Her bra size was 36 D before the mastectomies. HEENT - PERRL. EOMI.? Throat is clear. Neck - Supple and nontender.? No cervical adenopathy. Breasts - There are areas of compromised nipple grafts, worse on the right.? Some eschar is present.? The outer edges of the nipple grafts are healing satisfactory with good adherence and good vascular ingrowth. ? The central areas are showing some compromise with eschar formation.? It is dry without drainage.? There is no evidence of infection. ? The right nipple graft shows 60% take.? The left nipple graft shows 85% take.? Today the right breast Tzone wound extends up toward the nipple areolar complex.? Measures 7 x 5 cm.? The proximal 2/3 of the wound shows exposed subcutaneous tissue.? The distal 1/3 of the wound shows exposed acellular dermal matrix graft.? Within one corner of the exposed acellular dermal matrix graft is exposed right breast implant.? The left breast Tzone wound measures 1.5 x 0.7 cm.? Granulation tissue is present. ? The left breast implant is not exposed at this time.? The rest of her incisions are dry and intact. Lungs - Clear to auscultation. Heart - Regular rate and rhythm. Abdomen - Soft and nondistended. Extremities - FROM. No axillary adenopathy.? Radial pulses are palpable. Neuro - CN II-XII grossly intact. Psych - Normal mood and affect. ASSESSMENT 1.? 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 2.? Genetic susceptibility to breast cancer. 3.? Cancer phobia. 4.? Family history of breast cancer. 5.? History of prophylactic bilateral oophorectomy. 6.? Planned acquired absence bilateral breasts and nipples. 7.? Planned disproportion reconstructed breasts. 8.? Planned prophylactic bilateral breast removal. 9.? Pseudoptosis bilateral breasts. 10.? Former smoker. 11. Nonhealing wounds bilateral breasts at the Tzone areas. 12. Exposed implant right breast with infection. 13. Compromised nipple grafts. 14. MRSE. PLAN ?Patient has an exposed implant on the right.? Discussed with the patient that the exposed implant needs to be removed.? Will obtain cultures at the time of surgery.? A positive culture will necessitate antibiotic therapy.? IV antibiotics may be needed based on the culture results as well.? Also at the time of surgery, I will decide if the left breast needs to be debrided with removal of the implant as well. At the time of surgery, if there is pus present, then will hold off on placement of an airport operations coordinator at this time.? Will debride the wound and proceed with complex secondary wound closure.? After healing has occurred and the infection has been treated, will return to the operating room for placement of a tissue airport operations coordinator in a delayed fashion, tentatively 6 months.? If there is no pus after removing the implant, then I would decide about placing a tissue airport operations coordinator at that time or just closing the wound and allowing healing to occur and then placing a tissue airport operations coordinator in a delayed fashion, tentatively 3 months. The surgery is scheduled later on this week on May 30, 2022.? The expanders and acellular dermal matrix grafts have been ordered.? Surgery will be done under general anesthesia with a surgical observation overnight stay in the hospital. Patient was informed of the risks and complications of the procedure including alternatives to surgery.? These were discussed with the patient personally.? Patient voices understanding and wishes to proceed. Some of the risks and complications were included in a form from the [employer]. Potential risks and complications included but not inclusive of bleeding, infection, seroma, hematoma, bruising, swelling, prolonged need for drains, loss of sensation to skin, partial or complete loss of skin flap and/or nipple graft, wound breakdown, need for wound care, poor scarring, poor aesthetic outcome, intra operative cardiac or neurologic events, DVT, PE, and reaction to anesthesia. Continue to keep head elevated and continue lifting restriction. Continue to wear compression bra or anai wraps. At discharge, her Hgb was 8.6.? Her repeat Hgb on 04/23/22 was 11.5.? Continue iron supplementation. Continue HBO treatments until the surgery.? Can continue them after the surgery after the drains are removed. During these discussions about the need for further surgery with revision of the breast reconstruction, she became a little tearful. ? It was recommended to the patient that in times of overwhelming stressors, low dose antidepressants can be helpful in the patient's ability to maintain an even keel and be able to function on a daily basis.? Patient was in agreement and we sent a script for Lexapro into her Pharmacy. After the implants have been placed and healing has occurred, can then assess the status of the nipple grafts to determine if further nipple reconstruction needs to be done with skin grafting and/or intradermal tattooing. Genetic testing result reviewed.? It states she is at high risk for developing breast cancer.? High risk is defined as the absolute risk of cancer is approximately 5% or higher and the increase in risk over the general population is approximately 3-fold or higher and there is significant data from multiple studies supporting this cancer risk estimate.? For patients up to age 50 (she is 46), the cancer risk is up to 9% and the cancer risk for the general population is 1.9%.? After her recent prophylactic bilateral oophorectomy, she started to become nervous about the increased risk of developing breast cancer.? This led to her developing cancer phobia. With this degree of high risk severity for developing breast cancer, I recommend prophylactic mastectomy followed by reconstruction.? Prophylactic mastectomy can be either simple or subcutaneous (which includes the nipple).? Because of this high risk, I recommended simple mastectomies.? We can reconstruct her nipples later.? If we leave the nipples there will be more breast tissue preserved to maintain blood supply to the nipple.? Therefore she would still need mammograms and she would still be at higher risk.? Initially she was in agreement to proceed with the simple mastectomies.? After further thought, she has decided to keep the nipples, so would proceed with subcutaneous mastectomies.? She understands that some breast tissue is still present and mammograms would be necessary.? She voiced understanding and wishes to proceed. She is interested in a one stage breast reconstruction if possible. The two stage breast reconstruction is a two stage placement of a saline tissue airport operations coordinator (smooth) followed by removal of the airport operations coordinator with replacement cohesive gel implant and placement of acellular dermal matrix graft. The timing for the second procedure is about 3 months.? This option is safer because at the time of the implant replacement, the breast skin flaps have already healed so there is much less risk of a wound healing problem that could lead to exposure of the implant. A single stage placement of a cohesive gel implant is also possible which would be done on top of the muscle (prepectoral position) and covered completely by acellular dermal matrix graft.? The benefit is the patient wakes up with a breast.? She would be flat if a tissue airport operations coordinator was placed.? For a single stage procedure, we sometimes combine the mastectomy incision into a breast lift incision if there is some ptosis because the nipple is excised with the specimen.? This usually entails a horizontal and vertical incision and the creation of the Tzone.? This is a weak spot that can cause wound healing issues especially if a implant is placed at the same time since in order to have projection, there will be some pressure from the implant on the Tzone area.? One way to minimize this risk is to decide what the best size implant is based on the breast pocket, then go down to the next smallest implant for the final size.? The smaller implant would have less pressure on the Tzone area.? That decision is made in the operating room.? The patient is a D cup and would like to stay as a D cup. ? The mastopexy, if needed, would help to shape the skin around the implant.? However, she is now wishing to keep the nipples with a subcutaneous mastectomy.? Moving the nipple in a breast lift would increase the risk of vascular issues with the nipple.? So during surgery, I will place the biggest sizer that fits the pocket until the maximize size is reached.? If there is good draping of the skin around the implant, then there would be no need for a breast lift as well.? If it appears that there is residual loose skin draping that would benefit from a breast lift, then would proceed with the placement of a saline tissue airport operations coordinator.? With the expansion, the nipple may elevate enough that? no breast lift would be necessary when the final cohesive gel implant is placed.? A breast lift mastectomy incision removes some loose skin thus making the skin envelope smaller and leading to a less ptotic, perkier breast.? Before surgery, when the patient states her bra size, a lot of that is excess skin filling the bra.? A breast lift makes the breast firmer and elevates the breast giving it better shape and contour.? This sometimes leads to a smaller bra size but a better looking breast.? So at the time of surgery, if the largest implant placed doesn't give her a D cup when she is sat upright, then I would proceed with placement of a saline tissue airport operations coordinator.? This would expand the skin and breast pocket so a larger implant can be placed after the airport operations coordinator is removed. She understands that she may or may not wake up with a breast mound.? If a saline tissue airport operations coordinator is placed, then additional surgery would be necessary to replace the airport operations coordinator with a cohesive gel implant.? The chance of waking up with a breast mound is higher if the nipple is excised with the mastectomy since there would be no worries about the vascularity of the nipple.? The major change in her decision making is the desire to keep the nipples.? We have received medical approval for the bilateral prophylactic mastectomies followed by reconstruction with prepectoral cohesive gel implants or placement of a saline tissue airport operations coordinator and subsequent tissue airport operations coordinator removal with replacement cohesive gel implant.? It is scheduled for 04/11/22. Surgery would be done under general anesthesia with a surgical observation overnight stay in the hospital. She will have drains in for 10-14 days and be maintained on antibiotics until the drains are removed. Tissue that is removed at surgery will be sent to Pathology for analysis to rule out carcinoma. Her last mammogram was done in [place] in May,.? It showed dense breast parenchyma bilaterally.? No obvious mass lesion.? Palpable nodule left breast 2 oclock position in subcutaneous tissue such as sebaceous cyst.? Benign, no evidence malignancy. I thought she was receiving mammograms every 6 months, but it was every 12 months.? Instead she was having PAP smears every 6 months because of abnormal cells. Patient was informed of the risks and complications of the procedure including alternatives to surgery.? These were discussed with the patient personally.? Patient voices understanding and wishes to proceed. Some of the risks and complications were included in a form from the [employer]. Potential risks and complications included but not inclusive of bleeding, infection seroma, hematoma, bruising, swelling, prolonged need for drains, loss of sensation to skin, partial or complete loss of skin flap and/or nipple graft, wound breakdown, need for wound care, poor scarring, poor aesthetic outcome, intra operative cardiac or neurologic events, DVT, PE, and reaction to anesthesia. After further thought, I had another discussion with the patient a few days ago.? The patient's biggest priority is one stage procedure.? This priority can be more easily achieved if the nipples are removed.? Reshaping the breast over the implant is easier especially using a mastopexy type incision for the mastectomy because there is no worry where the nipple is located after the placement of the implant since the nipples would be removed.? The breast tissue would be removed from the undersurface of the nipple, and the nipple can be placed back on the breast in the appropriate position as a free nipple graft.? The healed nipple graft would look more real because of the texture difference between the smooth skin and the rougher areolar complex.? The patient may be interested in the free nipple graft and will let me know the morning of surgery.? And if there is some healing discoloration, then intradermal tattooing can be done to help smooth out the coloration. Assessment & Plan Assessment/Plan (1) Monoallelic mutation of DEISY gene: (2) Genetic 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: (3) Acquired absence of bilateral breasts and nipples: (4) Disproportion of reconstructed breast: (5) Exposed breast implant: (6) Cancer phobia: (7) Family history of breast cancer: (8) Former smoker: (9) Ptosis of both breasts: (10) History of bilateral oophorectomy: (11) Prophylactic ovary removal: (12) Nonhealing surgical wound: (13) Methicillin resistant Staphylococcus epidermidis infection: (14) Other complications of skin graft (allograft) (autograft): (15) Infection of breast implant: (16) Acute postoperative anemia due to expected blood loss:
--- NOTE | 2022-05-30 09:00 | BR_PTH ---
PATIENT: SANG MAIN LOC: MS3 U#:[id number] AGE/SX: 46/F ROOM: [facility] [place] RE05/30/[address]: Dr. Jarret Barrett MD : 1975 BED: 1 DIS: 06/02/2022 SPEC #: [id number] RECD: 05/30/22 14:12 STATUS: RYLAND COOKMark Anthony #: [id number] SHIRA: 05/30/22 09:[address]: Jarret Barrett DEPT: SURGICAL PATHOLOGY RECD BY: Swathi Altman ENTERED: 06/02/22 09:32 SP TYPE: MAMOPLASTY OTHR DR: Dr. Amanda Hyatt MD Tissues: A - Right breast, NOS B - Left breast, NOS Procedures: Surgery Specimen Level IV HEADER OPERATION: ERAS, revision breast reconstruction with excisional debridement PRE-OP DIAGNOSIS: Monoallelic mutation of DEISY gene, ptosis of both breasts, TISSUE SUBMITTED: A ? Right breast tissue, B ? Left breast tissue MICROSCOPIC DIAGNOSIS A. Right breast capsule and tissue, excision: Granulation with acute and chronic inflammation and fibrinopurulent material. Benign histiocytic reaction and fibrosis. Focal fat necrosis. B. Left breast capsule and tissue, excision: Skin with ulceration and associated with acute and chronic inflammation and granulation. Benign histiocytic reaction to polarizable material suggestive of suture. Fibrosis and fat necrosis. AM:daylin 06/03/2022 MICROSCOPIC DESCRIPTION Slides are reviewed. GROSS DESCRIPTION A - Received in fixative is one container labeled with the patient's name and designated debrided right breast tissue and capsule. The specimen consists of four irregular fragments of bagley-white capsular tissue ranging in size from 2.5 to 14.3 cm. The capsule contains adherent fragments of bagley-yellow soft tissue ranging in size from 1.0 to 13.0 cm. Serial sections do not reveal mass lesions. Foot Doctor sections are submitted in four cassettes. B - Received in fixative is one container labeled with the patient's name and designated debrided left breast tissue and capsule. The specimen consists of nine irregular fragments of bagley-white capsular tissue ranging in size from 1.0 to 14.0 cm. One fragment contains a portion of bagley skin with possible ulceration measuring 7.0 x 5.0 cm. The capsule contains adherent fragments of bagley-yellow soft tissue ranging in size from 1.0 to 13.0 cm. Serial sections do not reveal mass lesions. Foot Doctor sections are submitted in four cassettes. / AM:daylin 06/02/2022 TC:2 CPT: 95705 x2
[2022-05-30] MEDS: Lidocaine 1% /Epi 1:100 (20ml) 20 ML Vial (10:00)
[2022-05-30] MEDS: levoFLOXacin IV 500 MG/100 ML BAG 100 MG IV (10:00)
[2022-05-30] MEDS: Mupirocin Ointment 22gm Tube 1 APPLIC (14:05)
--- NOTE | 2022-05-30 14:08 | OP.PCM_ITS ---
Problems Associated Problem List Diagnoses (1) Exposed breast implant: (2) Infection of breast implant: (3) Methicillin resistant Staphylococcus epidermidis infection: (4) Other complications of skin graft (allograft) (autograft): (5) Nonhealing surgical wound: (6) History of bilateral breast implants: (7) Status post bilateral breast reconstruction: (8) Acquired absence of bilateral breasts and nipples: (9) Disproportion of reconstructed breast: (10) Genetic 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: (11) Monoallelic mutation of DEISY gene: (12) Cancer phobia: (13) Family history of breast cancer: (14) Former smoker: Report of Operation Date of Procedure: 05/30/22 Pre-Operative Diagnosis: 1. Exposed implant right breast with infection. 2. MRSE. 3. Nonhealing wounds bilateral breasts at the Tzone areas. 4. Compromised nipple grafts. 5. 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 6. Genetic susceptibility to breast cancer. 7. Cancer phobia. 8. Planned acquired absence bilateral breasts and nipples. 9. Disproportion reconstructed breasts. 10. Prophylactic bilateral breast removal. 11. Family history of breast cancer. 12. History of prophylactic bilateral oophorectomy. 13. Former smoker. Post-Operative Diagnosis: Same. Surgery/Procedure Performed:: 1. Revision left breast reconstruction with excisional debridement nonhealing infected wound and removal exposed cohesive gel implant with capsulectomy and complex secondary wound closure. 2. Revision right breast reconstruction with excisional debridement nonhealing infected wound and removal cohesive gel implant with capsulectomy and complex secondary wound closure. Description of Surgical Findings:: Patient had surgery on 04/11/22 where she underwent prophylactic mastectomy right breast and immediate right breast reconstruction with placement prepectoral cohesive gel implant (700 ml) and placement FlexHD acellular dermal matrix graft (23 x 26 cm) and mastopexy and right nipple reconstruction with placement of free nipple graft and prophylactic mastectomy left breast and immediate left breast reconstruction with placement prepectoral cohesive gel implant (700 ml) and placement FlexHD acellular dermal matrix graft (23 x 26 cm) and mastopexy and left nipple reconstruction with placement of free nipple graft.? She was discharged from the hospital on 04/14/22.? Initially the incisions were healing satisfactory.? There was some nipple graft compromise and she was started on HBO treatments.? About a month postop she started developing some incisional break down at the Tzone area on the right.? Silver dressing changes were started.? A wound culture was obtained on 05/12/22.? It was positive for MAYELA.? She was started on Levaquin and Doxycycline was added. The Tzone wound on the right extended up toward the nipple.? Initially the implant was not exposed, but eventually became exposed on the right.? The left breast Tzone is superficial and much smaller. ? Earlier this week she came to the office with concerns that the left breast Tzone wound is enlarging.? The right breast implant is already exposed at the Tzone.? ? The left breast Tzone area shows superficial separation with no exposed breast implant at this time.? There is the chance that the left breast Tzone area will stabilize and not continue to enlarge.? There is also the chance that the left breast implant will not become exposed.? However, there is the chance (even low chance) that the left breast implant will become exposed.? I want to minimize the amount of surgeries this patient has.? Will make the decision at the time of surgery.? If the left breast Tzone wound continues to slowly increase, then i would debride both breast wounds with removal of the cohesive gel implants.? If the breast pocket wounds close easily without evidence of residual infection, then would place saline tissue expanders into the breast pocket wounds.? If the wound edges still appear swollen and there is concern that the sutures may not ultimately hold, then would hold off on placement of the saline tissue expanders.? After healing has occurred and any residual infection treated, can return to the operating room for placement of the saline tissue expanders with acellular dermal matrix grafts.? Tentative time frame would be around 3 months. Patient was informed of the risks and complications of the procedure including alternatives to surgery. These were discussed with the patient personally. Patient voices understanding and wishes to proceed. Some of the risks and complications were included in a form from the [employer]. Potential risks and complications included but not inclusive of bleeding, infection, seroma, hematoma, bruising, swelling, prolonged need for drains, loss of sensation to skin, partial or complete loss of skin flap and/or nipple graft, wound breakdown, need for wound care, poor scarring, poor aesthetic outcome, intra operative cardiac or neurologic events, DVT, PE, and reaction to anesthesia. IV Fluids - 2500 ml. Urine Output - 1100 ml. I used Maryana absorbable hemostat, (I used 4 vials, 2 in each breast). Reference Number - [id number]. Lot Number - [id number]. Expiration - February 10, 2027. Surgeon: Jarret Barrett MD tripoler: Anne-Marie Andino RNFA tripoler: Pamela Berman RNFA Type of Anesthesia: General Anesthesiologist: Giancarlo Reece MD and Faith Mccartney CRNA Specimen's removed: 1. Left breast tissue and capsule to Pathology and Microbiology. 2. Right breast tissue and capsule to Pathology and Microbiology. Drains: Anjel x2 (one in each breast). Estimated Blood Loss (mL): 250. Fluids Replaced: 3600 ml (IV Fluids 2500 ml, Urine Output 1100 ml). Description of Procedure: Patient was taken to OR in supine position and was placed under general anesthesia. The breasts were prepped and draped in the usual fashion. SCD's were placed for DVT prophylaxis. Perioperative antibiotics were given intravenously. A bartlett catheter was placed. The Tzone wounds bilateral breasts were marked. Using Xylocaine with epinephrine, the central markings around the wound were infiltrated bilaterally, worse on the right. The Tzone wound on the left breast was smaller. After waiting 5 minutes for the anesthetic to take effect, I started with the revision reconstructed breasts by first excising and debriding the nonhealing infected wound with exposed implant on the right Tzone area and then proceeding with excision and debridement of the nonhealing wound on the left Tzone area. On the right there was some eschar present on the central aspect of the nipple graft that was excised and debrided. It was a full thickness excision as the compromise was full thickness. The small area of compromise on the left nipple graft was sharply debrided tangentially. Good bleeding tissue was seen underneath as it was a partial thickness debridement. Small amount of pus was seen in the right breast pocket. There was a lot of fat necrosis present and the liquid drainage could be customer retention representative of liquefying fat necrosis which can lead to an acute suppurative process. A lot of exudate was present on the right which was also excised and debrided. The amount of tissue and exudate that was present on the left and excised and debrided was smaller as compared to the right breast. Both cohesive gel implants were removed from the breast pockets and both appeared clinically intact. I then proceeded with capsulectomy in both breast pockets. After the capsulectomies, breast tissue and capsule were sent from each breast to Pathology for analysis to rule out carcinoma and to Microbiology for culture. A positive culture may necessitate antibiotic modification. Perioperatively she has been on Vancomycin and Levaquin. The capsule was more thickened on the right which is consistent with the infection present. More bleeding was seen in the right breast. Hemostasis was obtained with electrocautery. The wounds were irrigated with Irrisept 0.05% Chlorhexidine solution which was followed by Saline irrigation. The wound was much bigger on the right. I proceeded with undermining of the medial and lateral breast flaps to aid in advancement of the flaps with wound closure with minimal tension. Because of the amount of undermining required to allow the right breast wound to close, there is increased risk of further wound healing problems if a foreign body tissue tower equipment repairer is placed at this time. I felt it would be safer to close the wounds and allow the wounds to heal and then schedule the placement of a saline tissue tower equipment repairer and acellular dermal matrix graft in approximately 3 months to allow time for adequate healing and allow more swelling and edema to subside, before returning to surgery for placement of the tissue tower equipment repairer. I placed two size 15 Anjel drains, one in each breast, through separate stab incisions laterally and secured to the skin with 3-0 Nylon purse string suture. I then proceeded with complex secondary wound closure on the bilateral breast wounds. Using a 2-0 Vicryl suture, I secured the leading edge of the medial and lateral breast skin flaps to the midline of the inframammary incision. For the horizontal and vertical incisions I placed 3-0 Monocryl interrupted sutures for the deep dermis and subcutaneous tissue. The skin was approximated with 3-0 Prolene simple interrupted and vertical mattress interrupted sutures. On the right breast there remained a small full thickness wound centrally in the nipple graft. I brought the inferior nipple graft together with 3-0 Monocryl figure of eight interrupted sutures for the deep dermis and subcutaneous tissue. The nipple graft was then approximated with 3-0 Prolene simple interrupted suture. A superior bulge was present so I made an incision on the lateral pillar of nipple graft and rotated the inferior lateral pillar of nipple graft toward the central of the nipple graft wound. The superior lateral pillar of nipple graft was advanced downward toward the base of the nipple graft . They were secured with 3-0 Monocryl figure of eight interrupted sutures for the deep dermis and subcutaneous tissue. The nipple graft was then approximated with 3-0 Prolene simple interrupted sutures. Antibiotic ointment was applied to the suture lines followed by Kerlix gauze and a compression anai wrap. Patient tolerated the procedure well and was sent to PACU in satisfactory condition. Patient will be sent upstairs for continued postop care with a surgical observation overnight stay in the hospital. She can be discharged when tolerating po analgesia and when steady on her feet with ambulation. She will continue Vancomycin and Levaquin postoperatively. A positive culture may necessitate antibiotic modification. Will tentatively plan on continuing the breast reconstruction process with placement of saline tissue expanders in 3 months. Grafts/Implants Used: Maryana. Procedure Start Time: 09:57 Procedure Stop Time: 14:14 Complications None. Admit VTE Documentation VTE Present on Admission: No VTE Mechan Device Prophylaxis: SCD's VTE Pharm Prophylaxis ordered?: Yes Addendum Addendum: Surgery Charges CPT - 93054 -50 ICD-10 - T81.89xA, A49.8, T85.79xA, T85.49xA, T86.828, Z98.890, Z98.82, Z90.13, N65.1, Z15.01, Z15.89, F40.298, Z80.3, Z87.891 [id number] T81.89xA, A49.8, T85.79xA, T85.49xA, T86.828, Z98.890, Z98.82, Z90.13, N65.1, Z15.01, Z15.89, F40.298, Z80.3, Z87.891 [id number] T85.79xA, T85.49xA, T81.89xA, A49.8, T86.828, Z98.890, Z98.82, Z90.13, N65.1, Z15.01, Z15.89, F40.298, Z80.3, Z87.891 [id number] T85.79xA, T85.49xA, T81.89xA, A49.8, T86.828, Z98.890, Z98.82, Z90.13, N65.1, Z15.01, Z15.89, F40.298, Z80.3, Z87.891 [id number] T81.89xA, A49.8, T85.79xA, T85.49xA, T86.828, Z98.890, Z98.82, Z90.13, N65.1, Z15.01, Z15.89, F40.298, Z80.3, Z87.891 [id number] T81.89xA, A49.8, T85.79xA, T85.49xA, T86.828, Z98.890, Z98.82, Z90.13, N65.1, Z15.01, Z15.89, F40.298, Z80.3, Z87.891
[2022-05-30] MEDS: Lactated Ringers 1,000 ML 60 ML IV (16:14)
[2022-05-30] MEDS: Ensure Surgery 237 ML LIQUID PO (17:28)
[2022-05-30] MEDS: Gabapentin 100 MG Capsule 200 MG PO (17:29)
[2022-05-30] MEDS: proMETHazine 25 MG Tablet PO (17:29)
[2022-05-30] MEDS: Vancomycin IV 1,000 MG/200 ML BAG 200 MG IV (20:23)
[2022-05-30] MEDS: oxyCODONE 5 MG Tablet PO (20:23)
[2022-05-30] MEDS: Docusate Sodium 100 MG Capsule PO (20:24)
[2022-05-30] MEDS: Acyclovir 200 MG Capsule 400 MG PO (20:25)
[2022-05-31] MEDS: Acetaminophen 500 MG Tablet 1000 MG PO ×5 (00:12→23:14)
[2022-05-31] MEDS: proMETHazine 25 MG Tablet PO ×5 (00:12→23:13)
[2022-05-31 00:49] VITALS: BP 98/55; PULSE 77; RESP 16; TEMP 37.1; O2SAT 99
[2022-05-31 04:49] VITALS: BP 98/51; PULSE 67; RESP 16; TEMP 37; O2SAT 98
[2022-05-31] MEDS: oxyCODONE 5 MG Tablet PO ×3 (04:56→17:23)
[2022-05-31 07:42] LABS: Hematocrit 31.4 % (37-47); Mean Corp Hgb Conc 31.8 g/dL (32-36); Mean Corpuscular Volume 97.2 fL (81-99); Mean Platelet Vol. 11.2 fl (6.2-12.0); Platelet Count 204 K/mm3 (150-450); RBC Distribution Width CV 12.6 % (11.6-14.6); RBC Distribution Width SD 44.9 fl (35.1-43.9); Red Blood Count 3.23 M/mm3 (4.2-5.4); White Blood Count 9.3 K/mm3 (4.4-11.0)
[2022-05-31 08:04] LABS: Anion Gap 7 (5-15); BUN 13 mg/dL (7-18); BUN/Creat Ratio 18.9 RATIO (10-20); Calcium,Total 8.7 mg/dL (8.5-10.1); Chloride 107 mmol/L (98-107); Creatinine, Serum 0.69 mg/dL (0.55-1.02); EST Glomerular Filtration Rate 97 mL/min (>60); Est Glom Filt Rate - Afr Amer 117 mL/min (>60); Estimated Creatinine Clearance 93.34 ml/min; Glucose 113 mg/dL (74-106); Potassium 4.3 mmol/L (3.5-5.1); Prealbumin 18.7 mg/dL (20.0-40.0); Sodium Level 142 mmol/L (136-145)
[2022-05-31 08:32] VITALS: BP 88/53; PULSE 60; RESP 16; TEMP 36.8; O2SAT 100
[2022-05-31] MEDS: Gabapentin 100 MG Capsule 200 MG PO ×3 (08:51→17:21)
[2022-05-31] MEDS: Lactated Ringers 1,000 ML 60 ML IV (08:51)
[2022-05-31] MEDS: Vancomycin IV 1,000 MG/200 ML BAG 200 MG IV ×2 (08:51→20:35)
[2022-05-31] MEDS: Ensure Surgery 237 ML LIQUID PO ×3 (08:51→17:21)
--- NOTE | 2022-05-31 09:54 | PCM.PN.SRG ---
Subjective Subjective Postop #1 Patient has incisional pain, worse on the right. Patient is a little unsteady on her feet with ambulation. Patient still needs IV analgesia. Objective Data Objective Data Vital Signs: Vital Signs Temp Pulse Resp BP Pulse Ox O2 Del Method O2 Flow Rate 98.2 F 60 16 88/53 L 100 Room Air 4 05/31/22 08:32 05/31/22 08:32 05/31/22 08:32 05/31/22 08:32 05/31/22 08:32 05/31/22 08:32 05/30/22 16:00 Oxygen Flow Rate (L/min) 4 Oxygen Delivery Method Room Air Weight: 169 lb 3.2 oz Body Mass Index (BMI) 27.3 Intake & Output: Intake and Output for Last 24 Hours 05/29/22 05/30/22 05/31/22 23:59 23:59 23:59 Intake Total 2677 / 2677 1198 / 1198 Output Total 1610 / 1610 1420 / 1420 Balance 1067 / 1067 -222 / -222 Drainage 110 ml yesterday, 95 ml today. Prealbumin was 18.7. Encourage nutritional supplementation with protein to help the healing process. Lab / Micro Data Result Diagrams: 06/02/22 08:30 05/31/22 07:00 Labs: Laboratory Results - last 24 hr 05/31/22 07:00: WBC 9.3, RBC 3.23 L, Hgb 10.0 L, Hct 31.4 L, MCV 97.2, MCH 31.0, MCHC 31.8 L, RDW Std Deviation 44.9 H, RDW Coeff of Khushi 12.6, Plt Count 204, MPV 11.2 05/31/22 07:00: Sodium 142, Potassium 4.3, Chloride 107, Carbon Dioxide 28.0, Anion Gap 7, BUN 13, Creatinine 0.69, Estim Creat Clear Calc 93.34, Est GFR (MDRD) Af Amer 117, Est GFR (MDRD) Non-Af 97, BUN/Creatinine Ratio 18.9, Glucose 113 H, Calcium 8.7, Prealbumin 18.7 L Micro: Microbiology 05/30/22 10:57 Tissue - Breast Wound Culture - Preliminary GPC Poss Enterococcus sp Pathology - pending. Physical Exam Narrative General - Alert and Oriented HEENT - PERRL. EOMI. Neck - Supple and nontender. Breasts - Incisions are dry and intact. No vascular compromise noted on the breast skin flaps. No clinical evidence of hematoma. Nipple grafts continue to heal. The black eschar was debrided off the nipple areolar complex. On the left side, there is a superficial wound in the area of the nipple. The base of the nipple is viable. No more black eschar seen after its debridement. I narrowed the right nipple areolar complex because the wound underneath the black eschar was full-thickness. So approximated the inferior aspect of the nipple areolar complex. The superior aspect showed some bulging. So I took the lateral nipple graft pillar and made an incision through the nipple graft as a full thickness incision. I then rotated the inferior aspect of the lateral nipple graft pillar toward the center. I then brought down the superior nipple graft pillar and incised it through the nipple graft/ skin junction. I was able to advance it inferiorly. This made it easier to flatten out the bulge at the superior aspect of the nipple graft. Can revise the nipple reconstruction at a later date with skin grafting of the edges of the nipple graft to give it a more circular shape. After healing of the skin graft, can consider intradermal tattooing to help with maintaining a uniform coloration of the nipple areolar complex. Abdomen - Soft and nondistended. Extremities - FROM. No axillary adenopathy. Radial pulses are palpable. Neuro - CN II-XII grossly intact. Psych - Normal mood and affect. Assessment & Plan Assessment/Plan (1) Exposed breast implant: (2) Infection of breast implant: (3) Methicillin resistant Staphylococcus epidermidis infection: (4) Nonhealing surgical wound: (5) Other complications of skin graft (allograft) (autograft): (6) History of bilateral removal of breast implants: (7) Monoallelic mutation of DEISY gene: (8) Genetic 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: (9) Acquired absence of bilateral breasts and nipples: (10) Disproportion of reconstructed breast: (11) Cancer phobia: (12) Prophylactic breast removal: (13) Family history of breast cancer: (14) History of bilateral oophorectomy: (15) Prophylactic ovary removal: (16) Former smoker: (17) History of bilateral breast implants: PLAN: Plan Patient's incisions are dry and intact. No clinical evidence of hematoma. Nipple grafts after debridement are viable and healing satisfactory. Patient has incisional pain and still needs IV analgesia. Some of the increased pain could also be related to muscle spasm bruising from the capsulectomy. Will start Valium for spasms prn. She has been unsteady on her feet with ambulation. Encourage ambulation in preparation for discharge. She also has to be tolerating po analgesia. Anticipate one more day. Her bartlett was removed and she was able to void without difficulty. Hgb was 10.0. She had been on Iron supplementation after her last surgery in March,. Prealbumin was 18.7. Encourage nutritional supplementation with protein to help the healing process. Operative culture shows Gram positive cocci possible Enterococcus in the right breast wound. Left breast wound culture is negative thus far. She is currently on Vancomycin and Levaquin. Continue head elevation and lifting restriction and anai wrap compression.
[2022-05-31] MEDS: Enoxaparin 40 MG/0.4 ML Syringe SC (10:53)
[2022-05-31] MEDS: Docusate Sodium 100 MG Capsule PO ×2 (10:53→20:37)
[2022-05-31] MEDS: Acyclovir 200 MG Capsule 400 MG PO ×2 (10:53→20:38)
[2022-05-31] MEDS: Pantoprazole Sodium 40 MG Tablet PO (10:53)
[2022-05-31] MEDS: levoFLOXacin IV 500 MG/100 ML BAG 100 MG IV (11:05)
[2022-05-31] MEDS: FLU VACC QS2022-23(6MOS UP)/PF 60 MCG/0.5 ML SYRINGE IM (11:06)
[2022-05-31 16:19] VITALS: BP 110/55; PULSE 68; RESP 16; TEMP 37.2; O2SAT 100
[2022-05-31 20:29] LABS: Vancomycin, Trough Level 9.8 ug/mL (5.0-15.0)
--- NOTE | 2022-05-31 20:38 | PHA.PHARE_ITS ---
Consult Pharmacy has been consulted to manage selected antiobiotic: Vancomycin Type of Consult: Follow-up Prior Doses of Antibiotics Received/Current Regimen: Medications Vancomycin HCl (Vancomycin) 1,000 mg in 200 mls @ 200 mls/hr IV Q12H DINORAH Last Admin: 05/31/22 20:35 Dose: 200 mls/hr Labs: Sodium 142 mmol/L (136-145) 05/31/22 07:00 Potassium 4.3 mmol/L (3.5-5.1) 05/31/22 07:00 Chloride 107 mmol/L (98-107) 05/31/22 07:00 Carbon Dioxide 28.0 mmol/L (21.0-32.0) 05/31/22 07:00 Anion Gap 7 (5-15) 05/31/22 07:00 BUN 13 mg/dL (7-18) 05/31/22 07:00 Creatinine 0.69 mg/dL (0.55-1.02) 05/31/22 07:00 Est GFR (MDRD) Af Amer 117 mL/min (>60) 05/31/22 07:00 Est GFR (MDRD) Non-Af 97 mL/min (>60) 05/31/22 07:00 BUN/Creatinine Ratio 18.9 RATIO (10-20) 05/31/22 07:00 Glucose 113 mg/dL (74-106) H 05/31/22 07:00 Vancomycin Trough 9.8 ug/mL (5.0-15.0) 05/31/22 19:30 Microbiology: Microbiology 05/30/22 11:45 Tissue - Breast Gram Stain - Final 05/30/22 11:45 Tissue - Breast Wound Culture - Preliminary Staphylococcus species 05/30/22 10:57 Tissue - Breast Gram Stain - Final 05/30/22 10:57 Tissue - Breast Wound Culture - Preliminary GPC Poss Enterococcus sp Weight used for dosin.7 kg Estimated Creatinine Clearance: 93 Goal Trough: 10-15 mcg/mL Pharmacy Plan for Drug Dosing: Vancomycin trough level of 9.8 was just slightly below the target range of 10- 15. Will continue dosing at 1000mg q12h, and re-draw a trough in two days. Pharmacy Service will continue to monitor and adjust dosing as required. Follow-Up Labs: Trough Vancomycin Labs to be done on [date and time ordered]: 06/02/22 @1930
[2022-05-31 22:00] VITALS: BP 112/56; PULSE 68; RESP 16; TEMP 36.9; O2SAT 99
[2022-06-01] MEDS: proMETHazine 25 MG Tablet PO ×3 (04:55→17:53)
[2022-06-01] MEDS: Lactated Ringers 1,000 ML 60 ML IV (04:55)
[2022-06-01] MEDS: Acetaminophen 500 MG Tablet 1000 MG PO ×3 (04:55→17:53)
[2022-06-01 05:01] VITALS: BP 100/53; PULSE 54; RESP 16; TEMP 36.4; O2SAT 100
[2022-06-01] MEDS: Ensure Surgery 237 ML LIQUID PO ×3 (08:42→16:45)
[2022-06-01] MEDS: Vancomycin IV 1,000 MG/200 ML BAG 200 MG IV ×2 (08:42→20:17)
[2022-06-01] MEDS: Gabapentin 100 MG Capsule 200 MG PO ×3 (08:42→16:45)
[2022-06-01 08:49] VITALS: BP 99/59; PULSE 63; RESP 16; TEMP 36.8; O2SAT 95
[2022-06-01] MEDS: Enoxaparin 40 MG/0.4 ML Syringe SC (09:47)
[2022-06-01] MEDS: Acyclovir 200 MG Capsule 400 MG PO ×2 (09:47→19:28)
[2022-06-01] MEDS: Docusate Sodium 100 MG Capsule PO ×2 (09:47→19:28)
[2022-06-01] MEDS: Pantoprazole Sodium 40 MG Tablet PO (09:47)
[2022-06-01] MEDS: levoFLOXacin IV 500 MG/100 ML BAG 100 MG IV (10:17)
[2022-06-01] MEDS: oxyCODONE 5 MG Tablet PO ×2 (12:15→19:27)
[2022-06-01 17:00] VITALS: BP 103/50; PULSE 74; RESP 16; TEMP 37.1; O2SAT 96
--- NOTE | 2022-06-01 20:07 | PCM.PN.SRG ---
Subjective Subjective Postop #2 Patient has incisional pain. Still needs IV analgesia. Getting more steady on her feet with ambulation. Objective Data Objective Data Vital Signs: Vital Signs Temp Pulse Resp BP Pulse Ox O2 Del Method O2 Flow Rate 98.4 F 66 14 104/51 L 94 Room Air 4 06/02/22 05:00 06/02/22 05:00 06/02/22 05:00 06/02/22 05:00 06/02/22 05:00 06/02/22 05:00 05/30/22 16:00 Oxygen Flow Rate (L/min) 4 Oxygen Delivery Method Room Air Weight: 169 lb 3.2 oz Body Mass Index (BMI) 27.3 Intake & Output: Intake and Output for Last 24 Hours 05/31/22 06/01/22 06/02/22 23:59 23:59 23:59 Intake Total 1698 / 1698 1730 / 1730 Output Total 1900 / 1900 30 / 30 Balance -202 / -202 1700 / 1700 Drainage 175 ml yesterday. Lab / Micro Data Attestation: I reviewed the patient's lab results. Result Diagrams: 06/02/22 08:30 05/31/22 07:00 Micro: Microbiology 05/30/22 11:45 Tissue - Breast Gram Stain - Final 05/30/22 11:45 Tissue - Breast Wound Culture - Final Staphylococcus epidermidis 05/30/22 11:45 Tissue - Breast Anaerobic Culture - Preliminary 05/30/22 10:57 Tissue - Breast Gram Stain - Final 05/30/22 10:57 Tissue - Breast Wound Culture - Final Enterococcus faecalis 05/30/22 10:57 Tissue - Breast Anaerobic Culture - Preliminary Physical Exam Narrative General - Alert and Oriented HEENT - PERRL. EOMI. Neck - Supple and nontender. Breasts - Incisions are dry and intact. No vascular compromise noted on the breast skin flaps. No clinical evidence of hematoma. Nipple grafts are healing satisfactory. Abdomen - Soft and nondistended. Neuro - CN II-XII grossly intact. Psych - Normal mood and affect. Assessment & Plan Assessment/Plan (1) Exposed breast implant: (2) Infection of breast implant: (3) Methicillin resistant Staphylococcus epidermidis infection: (4) Nonhealing surgical wound: (5) Other complications of skin graft (allograft) (autograft): (6) History of bilateral removal of breast implants: (7) Monoallelic mutation of DEISY gene: (8) Genetic 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: (9) Acquired absence of bilateral breasts and nipples: (10) Disproportion of reconstructed breast: (11) Prophylactic breast removal: (12) Family history of breast cancer: (13) History of bilateral oophorectomy: (14) Prophylactic ovary removal: (15) Former smoker: (16) History of bilateral breast implants: PLAN: Plan Patient's incisions are dry and intact. No clinical evidence of hematoma. Nipple grafts after debridement are viable and healing satisfactory. Patient has incisional pain and still needs IV analgesia. Some of the increased pain could also be related to muscle spasm bruising from the capsulectomy. She was started on Valium for spasms prn and it has helped. I will discharge her on Valium. She is less unsteady on her feet with ambulation. Encourage ambulation in preparation for discharge. She also has to be tolerating po analgesia. Anticipate one more day. Her bartlett was removed and she was able to void without difficulty. Hgb was 10.4. She had been on Iron supplementation after her last surgery in March,. Prealbumin was 18.7. Encourage nutritional supplementation with protein to help the healing process. Operative culture shows Enterococcus in the right breast wound. Left breast wound culture shows MRSE. She is currently on Vancomycin and Levaquin. Will discharge her on po Levaquin and Erythromycin. Continue head elevation and lifting restriction and anai wrap compression.
[2022-06-01 23:00] VITALS: BP 110/64; PULSE 70; RESP 16; TEMP 36.9; O2SAT 98
[2022-06-02] MEDS: Acetaminophen 500 MG Tablet 1000 MG PO ×3 (00:26→15:18)
[2022-06-02] MEDS: proMETHazine 25 MG Tablet PO ×3 (00:26→11:51)
[2022-06-02 05:00] VITALS: BP 104/51; PULSE 66; RESP 14; TEMP 36.9; O2SAT 94
[2022-06-02 08:42] LABS: Hematocrit 33.3 % (37-47); Hemoglobin 10.4 g/dL (12.0-15.0); Mean Corp Hgb Conc 31.2 g/dL (32-36); Mean Corpuscular Volume 99.4 fL (81-99); Mean Platelet Vol. 10.4 fl (6.2-12.0); Platelet Count 210 K/mm3 (150-450); RBC Distribution Width CV 12.8 % (11.6-14.6); RBC Distribution Width SD 46.2 fl (35.1-43.9); Red Blood Count 3.35 M/mm3 (4.2-5.4); White Blood Count 6.1 K/mm3 (4.4-11.0)
[2022-06-02] MEDS: Vancomycin IV 1,000 MG/200 ML BAG 200 MG IV (08:48)
[2022-06-02] MEDS: Gabapentin 100 MG Capsule 200 MG PO ×2 (08:48→11:51)
[2022-06-02] MEDS: 0.9% Saline Lock 10 ML Syringe IV (08:53)
[2022-06-02] MEDS: Pantoprazole Sodium 40 MG Tablet PO (08:54)
[2022-06-02] MEDS: Acyclovir 200 MG Capsule 400 MG PO (08:54)
[2022-06-02] MEDS: Enoxaparin 40 MG/0.4 ML Syringe SC (08:54)
[2022-06-02] MEDS: Docusate Sodium 100 MG Capsule PO (08:58)
[2022-06-02] MEDS: Ensure Surgery 237 ML LIQUID PO ×2 (09:02→15:20)
[2022-06-02 11:00] VITALS: BP 101/58; PULSE 71; RESP 18; TEMP 36.8; O2SAT 96
[2022-06-02] MEDS: levoFLOXacin IV 500 MG/100 ML BAG 100 MG IV (11:44)
[2022-06-02 13:00] VITALS: O2SAT 96
--- NOTE | 2022-06-02 14:18 | DCINST_ITS ---
Discharge Instructions Diet Discharge Diet: No restrictions and - (encourage nutritional supplementation with protein to help the healing process.) Activity Discharge Activity: May Not Shower (until the drains are removed.) May shower in (days): 14 ((tentative) she may shower after the drains are removed.) May resume sexual activity in: 10-14 days (after the drains are removed. Wear anai compression during sexual activity.) Weight Bearing Status: Weight bearing as tolerated Keep extremity elevated above heart level: - (elevate head) Dressing / Incision Call your doctor if your incision/area has: Continuous Slow Oozing, Sudden Increased Bleeding, Increased Pain/ Swelling, Increased Redness, Foul Smelling Discharge and Swelling at the incision site Call your doctor if you observe: Fever of 101 or Higher, Coldness, Increased Pain, Shortness of breath, Chest pain, Calf discomfort and Uncontrolled pain Suture Line Care: - (apply antibiotic ointment to suture lines followed by dry gauze every 1-2 days.) Change Dressing in: 2 days (may change daily based on drainage on the gauze dressing) Remove Dressing in: 2 days (dressing changes to the bilateral breasts along with antibiotic ointment every day or every other day based on the amount of drainage on the incisions.) Cleanse incision/area with: Keep Dressing Clean & Dry (may wash around the incisions with soap and water.) and - (once operative drains are removed, patient may shower.) Drain: Suction (Anjel drains x2 (one in each breast) to bulb suction. Empty and record output daily.) Follow Up Care Please Follow Up With: Jarret Barrett MD When: one week. call [phone] for appt Test Results: Test results from this visit will be discussed in further detail at your follow- up appointment, if applicable. Discharge Plan Admission Admit Date/Time: 05/30/22 15:40 Primary Reason for Your Visit: revision breast reconstruction with removal exposed infected implants Attending Provider: Jarret Barrett Primary Care Provider: Amanda Hyatt Discharge Orders/Prescriptions Prescriptions: New erythromycin ethylsuccinate [E.E.S. 400] 400 mg tablet 400 mg PO Q6H 21 Days Qty: 84 1RF L.acidoph,saliva-B.bif-S.therm [Acidophilus Probiotic Blend] 175 mg capsule 1 cap PO DAILY Qty: 30 1RF oxycodone-acetaminophen [Percocet] 5-325 mg tablet 1 tab PO Q4H PRN (Reason: pain (scale score 7-10)) 7 Days Qty: 40 0RF Rx Instructions: 40 tabs (forty) diazepam [Valium] 5 mg tablet 5 mg PO TID PRN (Reason: spasms) 10 Days Qty: 30 0RF Rx Instructions: 30 tabs (thirty) Continued sumatriptan succinate 100 mg tablet 100 mg PO PRN PRN (Reason: MIGRAINE) Label Comments: TAKE 1 TABLET FOR MIGRAINE RELIEF. MAY REPEAT 2 HOURS LATER. MAXIMUM 200MG/DAY. valacyclovir 500 mg tablet 500 mg PO DAILY Label Comments: TAKE 1 TABLET BY MOUTH EVERY DAY omeprazole 40 mg capsule,delayed release(DR/EC) 40 mg PO DAILY Label Comments: TAKE 1 CAPSULE BY MOUTH EVERY DAY levofloxacin 500 mg tablet 500 mg PO DAILY 20 Days Qty: 21 1RF Held ibuprofen 800 mg tablet 800 mg PO Q12H PRN PRN (Reason: Migraine Headache) Hold Instructions: Resume on 06/06/22. Label Comments: TAKE 1 TABLET BY MOUTH THREE TIMES A DAY NEEDED Discontinued doxycycline hyclate 100 mg capsule 100 mg PO BID 14 Days Qty: 28 1RF Referrals / Follow Up: Jarret Barrett MD [Med Staff - Active Staff] - (followup one week) Amanda Hyatt MD [Primary Care Provider] - Disposition Disposition (needs filled in before D/C Order can be placed): Home, Self Care
[2022-06-02 15:24] VITALS: BP 117/68; PULSE 72; RESP 18; TEMP 37.1; O2SAT 97
--- NOTE | 2022-06-02 22:12 | DS.PCM_ITS ---
Providers Date of Admission: 05/30/22 Date of Discharge: 06/02/22 Primary Care Physician: Dr. Amanda Hyatt MD Reason For Visit: REMOVAL BREAST IMPLANT CAPSULECTOMY BILATERAL Diagnosis Discharge Diagnosis (1) Exposed breast implant: Status: Acute Code(s): T85.49XA - Other mechanical complication of breast prosthesis and implant, ini tial encounter (2) Infection of breast implant: Status: Acute Code(s): T85.79XA - Infection and inflammatory reaction due to other internal prosthetic devices, implants and grafts, initial encounter (3) Methicillin resistant Staphylococcus epidermidis infection: Status: Acute Code(s): A49.8 - Other bacterial infections of unspecified site; Z16.29 - Resistance to other single specified antibiotic (4) Nonhealing surgical wound: Status: Acute Code(s): T81.89XA - Other complications of procedures, not elsewhere classified, initial encounter (5) Other complications of skin graft (allograft) (autograft): Status: Acute Code(s): T86.828 - Other complications of skin graft (allograft) (autograft) (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 Code(s): Z15.89 - Genetic susceptibility to other disease; Z15.01 - Genetic 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; Z15.09 - Genetic susceptibility to other malignant neoplasm (7) 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 Code(s): Z15.01 - Genetic 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 (8) Acquired absence of bilateral breasts and nipples: Status: Acute Code(s): Z90.13 - Acquired absence of bilateral breasts and nipples (9) Disproportion of reconstructed breast: Status: Acute Code(s): N65.1 - Disproportion of reconstructed breast (10) History of bilateral removal of breast implants: Status: Acute Code(s): Z98.86 - Personal history of breast implant removal (11) Cancer phobia: Status: Chronic Code(s): F40.298 - Other specified phobia (12) Family history of breast cancer: Status: Chronic Code(s): Z80.3 - Family history of malignant neoplasm of breast (13) Former smoker: Status: Chronic Code(s): Z87.891 - Personal history of nicotine dependence (14) Ptosis of both breasts: Status: Resolved Code(s): N64.81 - Ptosis of breast (15) History of bilateral oophorectomy: Status: Chronic Code(s): Z90.722 - Acquired absence of ovaries, bilateral (16) Prophylactic ovary removal: Status: Chronic Code(s): Z40.02 - Encounter for prophylactic removal of ovary(s) (17) Prophylactic breast removal: Status: Acute Code(s): Z40.01 - Encounter for prophylactic removal of breast (18) History of bilateral breast implants: Status: Acute Code(s): Z98.82 - Breast implant status Medications at Discharge Home Medications ibuprofen 800 mg tablet 800 mg PO Q12H PRN PRN Migraine Headache 03/28/22 omeprazole 40 mg capsule,delayed release 40 mg PO DAILY 03/28/22 sumatriptan succinate 100 mg tablet 100 mg PO PRN PRN MIGRAINE 03/28/22 valacyclovir 500 mg tablet 500 mg PO DAILY 03/28/22 L.acidophil,salivari-Bifido bifidum-Strep thermoph 175 mg capsule (Acidophilus Probiotic Blend) 1 cap PO DAILY #30 caps 06/02/22 diazepam 5 mg tablet (Valium) 5 mg PO TID PRN spasms 10 days #30 tabs 06/02/22 erythromycin ethylsuccinate 400 mg tablet (E.E.S.) 400 mg PO Q6H 21 days #84 tabs 06/02/22 levofloxacin 500 mg tablet 500 mg PO DAILY 20 days #21 tabs 06/02/22 oxycodone-acetaminophen 5 mg-325 mg tablet (Percocet) 1 tab PO Q4H PRN pain (scale score 7-10) 7 days #40 tabs 06/02/22 Hospital Course Operations - (05/30/22 - 1. Revision left breast reconstruction with excisional debridement nonhealing infected wound and removal exposed cohesive gel implant with capsulectomy and complex secondary wound closure. 2. Revision right breast reconstruction with excisional debridement nonhealing infected wound and ) Procedures None Summary of Care Provided Minutes Spent on Discharge: 35 Hospital Course: Patient had surgery on 04/11/22 where she underwent prophylactic mastectomy right breast and immediate right breast reconstruction with placement prepectoral cohesive gel implant (700 ml) and placement FlexHD acellular dermal matrix graft (23 x 26 cm) and mastopexy and right nipple reconstruction with placement of free nipple graft and prophylactic mastectomy left breast and immediate left breast reconstruction with placement prepectoral cohesive gel implant (700 ml) and placement FlexHD acellular dermal matrix graft (23 x 26 cm) and mastopexy and left nipple reconstruction with placement of free nipple graft.? She was discharged from the hospital on 04/14/22.? Initially the incisions were healing satisfactory.? There was some nipple graft compromise and she was started on HBO treatments.? About a month postop she started developing some incisional breakdown at the Tzone area on the right.? Silver dressing changes were started.? A wound culture was obtained on 05/12/22.? It was positive for MRSE.? She was started on Levaquin and Doxycycline was added. The Tzone wound on the right extended up toward the nipple.? Initially the implant was not exposed, but eventually became exposed on the right.? The left breast Tzone is superficial and much smaller. ? Earlier this week she came to the office with concerns that the left breast Tzo ne wound is enlarging.? The right breast implant is already exposed at the Tzone.? ? The left breast Tzone area shows superficial separation with no exposed breast implant at this time.? There is the chance that the left breast Tzone area will stabilize and not continue to enlarge.? There is also the chance that the left breast implant will not become exposed.? However, there is the chance (even low chance) that the left breast implant will become exposed.? I want to minimize the amount of surgeries this patient has.? Will make the decision at the time of surgery.? If the left breast Tzone wound continues to slowly increase, then i would debride both breast wounds with removal of the cohesive gel implants.? If the breast pocket wounds close easily without evidence of residual infection, then would place saline tissue expanders into the breast pocket wounds.? If the wound edges still appear swollen and there is concern that the sutures may not ultimately hold, then would hold off on skye cement of the saline tissue expanders.? After healing has occurred and any residual infection treated, can return to the operating room for placement of the saline tissue expanders with acellular dermal matrix grafts.? Tentative time frame would be around 3 months. She was taken to surgery on 05/30/22 where she underwent revision left breast reconstruction with excisional debridement nonhealing infected wound and removal exposed cohesive gel implant with capsulectomy and? complex secondary wound closure and revision right breast reconstruction with excisional debridement nonhealing infected wound and removal cohesive gel implant with capsulectomy and complex secondary wound closure. Perioperatively she was treated with Vancomycin and Levaquin. She had postoperative pain that required IV analgesia for a few days. She was also unsteady on her feet with ambulation and needed and extra couple of days to become more steady on her feet with ambulation before discharge. Her operative cultures showed Enterococcus faecalis on the right and MRSE on the left. At the time of discharge, her antibiotics were changed to Erythromycin and Levaquin. By the 3rd postop day she was tolerating po analgesia and was steady on her feet with ambulation. She was also given Valium for spasm which helped her painful symptomatology as well. She will followup in the office in one week. She will continue anai wrap compression and head elevation and lifting restriction. Condition upon discharge is good. Wrote scripts for Percocet for pain (40 tabs), Valium for spasm (30 tabs), Erythromycin, and Levaquin. Physical Exam Const Constitutional Narrative: General - Alert and Oriented HEENT - PERRL. EOMI. Neck - Supple and nontender. Breasts - incisions are dry and intact. No clinical evidence of vascular compromise to the breast skin flaps. No clinical evidence of hematoma. The nipple grafts after debridement are healing satisfactory. Abdomen - Soft and nondistended. Neuro - CN II-XII grossly intact. Psych - Normal mood and affect. Weight / BMI Weight Weight: 169 lb 3.2 oz Body Mass Index (BMI) 27.3 ABG / Lab / Microbiology Data Attestation: I reviewed the patient's lab results. Result Diagrams: 06/02/22 08:30 05/31/22 07:00 Laboratory: Laboratory Results - last 24 hr 06/02/22 08:30: WBC 6.1, RBC 3.35 L, Hgb 10.4 L, Hct 33.3 L, MCV 99.4 H, MCH 31.0, MCHC 31.2 L, RDW Std Deviation 46.2 H, RDW Coeff of Khushi 12.8, Plt Count 210, MPV 10.4 Microbiology: Microbiology 05/30/22 11:45 Tissue - Breast Gram Stain - Final 05/30/22 11:45 Tissue - Breast Wound Culture - Final Staphylococcus epidermidis 05/30/22 11:45 Tissue - Breast Anaerobic Culture - Final No anaerobic bacteria isolated. 05/30/22 10:57 Tissue - Breast Gram Stain - Final 05/30/22 10:57 Tissue - Breast Wound Culture - Final Enterococcus faecalis 05/30/22 10:57 Tissue - Breast Anaerobic Culture - Final No anaerobic bacteria isolated. D/C Instructions Discharge Diet: No restrictions and - (encourage nutritional supplementation with protein to help the healing process.) May shower in (days): 14 ((tentative) she may shower after the drains are removed.) May resume sexual activity in: 10-14 days (after the drains are removed. Wear anai compression during sexual activity.) Weight Bearing Status: Weight bearing as tolerated Keep extremity elevated above heart level: - (elevate head) Call your doctor if your incision/area has: Continuous Slow Oozing, Sudden Increased Bleeding, Increased Pain/ Swelling, Increased Redness, Foul Smelling Discharge and Swelling at the incision site Call your doctor if you observe: Fever of 101 or Higher, Coldness, Increased Pain, Shortness of breath, Chest pain, Calf discomfort and Uncontrolled pain Suture Line Care: - (apply antibiotic ointment to suture lines followed by dry gauze every 1-2 days.) Cleanse incision/area with: Keep Dressing Clean & Dry (may wash around the incisions with soap and water.) and - (once operative drains are removed, patient may shower.) Drain: Suction (Anjel drains x2 (one in each breast) to bulb suction. Empty and record output daily.) Please Follow Up With: Jarret Barrett MD When: one week. call [phone] for appt Meaningful Use Info Meaningful Use Diagnoses (Choose all that apply): None applicable Discharge Plan Admission Admit Date/Time: 05/30/22 15:40 Primary Reason for Your Visit: revision breast reconstruction with removal exposed infected implants Attending Provider: Jarret Barrett Primary Care Provider: Amanda Hyatt Discharge Orders/Prescriptions Prescriptions: New erythromycin ethylsuccinate [E.E.S. 400] 400 mg tablet 400 mg PO Q6H 21 Days Qty: 84 1RF L.acidoph,saliva-B.bif-S.therm [Acidophilus Probiotic Blend] 175 mg capsule 1 cap PO DAILY Qty: 30 1RF oxycodone-acetaminophen [Percocet] 5-325 mg tablet 1 tab PO Q4H PRN (Reason: pain (scale score 7-10)) 7 Days Qty: 40 0RF Rx Instructions: 40 tabs (forty) diazepam [Valium] 5 mg tablet 5 mg PO TID PRN (Reason: spasms) 10 Days Qty: 30 0RF Rx Instructions: 30 tabs (thirty) Continued sumatriptan succinate 100 mg tablet 100 mg PO PRN PRN (Reason: MIGRAINE) Label Comments: TAKE 1 TABLET FOR MIGRAINE RELIEF. MAY REPEAT 2 HOURS LATER. MAXIMUM 200MG/DAY. valacyclovir 500 mg tablet 500 mg PO DAILY Label Comments: TAKE 1 TABLET BY MOUTH EVERY DAY omeprazole 40 mg capsule,delayed release(DR/EC) 40 mg PO DAILY Label Comments: TAKE 1 CAPSULE BY MOUTH EVERY DAY levofloxacin 500 mg tablet 500 mg PO DAILY 20 Days Qty: 21 1RF Held ibuprofen 800 mg tablet 800 mg PO Q12H PRN PRN (Reason: Migraine Headache) Hold Instructions: Resume on 06/06/22. Label Comments: TAKE 1 TABLET BY MOUTH THREE TIMES A DAY NEEDED Discontinued doxycycline hyclate 100 mg capsule 100 mg PO BID 14 Days Qty: 28 1RF Referrals / Follow Up: Jarret Barrett MD [Med Staff - Active Staff] - (followup one week) Amanda Hyatt MD [Primary Care Provider] - Disposition Disposition (needs filled in before D/C Order can be placed): Home, Self Care
== END 2022-06-02 16:45 | disposition home or self-care (01) ==
LOC: SDC 16:00 → MS3 16:00
PROVIDERS: Anesthesiology; Admitting Provider Surgery; PCP Family Medicine; Referring Provider Surgery; Visit Provider Surgery
PROC: (CPT 19371; principal; 2022-05-30 08:45)
DX: T85.79XA Infection and inflammatory reaction due to other internal prosthetic devices, implants and grafts, initial encounter (principal); N64.81 Ptosis of breast; Z15.01 Genetic susceptibility to malignant neoplasm of breast; Z87.891 Personal history of nicotine dependence; B95.7 Other staphylococcus as the cause of diseases classified elsewhere; N65.1 Disproportion of reconstructed breast; Y81.2 Prosthetic and other implants, materials and accessory general- and plastic-surgery devices associated with adverse incidents; Z16.29 Resistance to other single specified antibiotic; F45.29 Other hypochondriacal disorders; K21.9 Gastro-esophageal reflux disease without esophagitis; Z80.3 Family history of malignant neoplasm of breast; T86.821 Skin graft (allograft) (autograft) failure; T85.49XA Other mechanical complication of breast prosthesis and implant, initial encounter; Z23 Encounter for immunization
CPT/HCPCS: 19380; 19371; 13160; 00402; 36415; 80048; 80202; 82962; 83735; 84134; 85027; 87070; 87075; 87077; 87102; 87186; 87205; 87206; 88305; 94668; 94762; 96365; 96366; 96367; 96372; 99221; 99252; J7050; J7120; 90686; A4216; G0378; G0463; J2405; J3475

== ENCOUNTER → 2022-07-24 | Outpatient (CLI) | payer BC, SELFPAY ==
[2022-07-24 12:27] LABS: Hemoglobin 12.5 g/dL (12.0-15.0); Mean Corp Hgb Conc 32.9 g/dL (32-36); Mean Corpuscular Hgb 31.2 pg (27.0-32.0); Mean Corpuscular Volume 94.8 fL (81-99); Platelet Count 218 K/mm3 (150-450); RBC Distribution Width CV 12.7 % (11.6-14.6); RBC Distribution Width SD 43.9 fl (35.1-43.9); Red Blood Count 4.01 M/mm3 (4.2-5.4); White Blood Count 7.3 K/mm3 (4.4-11.0)
[2022-07-24 13:09] LABS: ALB/GLOB Ratio 1.1 RATIO (0.9-2.4); AST(SGOT) 17 U/L (15-37); Alanine Aminotransfer ALT/SGPT 23 U/L (13-56); Albumin, Serum 3.9 g/dL (3.2-5.0); Alkaline Phosphatase 114 U/L (45-117); Anion Gap 7 (5-15); BUN 20 mg/dL (7-18); BUN/Creat Ratio 27.4 RATIO (10-20); Calcium,Total 9.3 mg/dL (8.5-10.1); Chloride 107 mmol/L (98-107); Creatinine, Serum 0.73 mg/dL (0.55-1.02); EST Glomerular Filtration Rate 90 mL/min (>60); Est Glom Filt Rate - Afr Amer 109 mL/min (>60); Globulin 3.4 g/dL (2.2-4.2); Glucose 103 mg/dL (74-106); Potassium 4.1 mmol/L (3.5-5.1); Protein, Total 7.3 g/dL (6.4-8.2); Sodium Level 140 mmol/L (136-145)
== END | disposition home or self-care (01) ==
LOC: LAB 12:03
PROVIDERS: PCP Family Medicine; Visit Provider Nurse Practitioner Family
DX: D64.9 Anemia, unspecified (principal); T85.79XA Infection and inflammatory reaction due to other internal prosthetic devices, implants and grafts, initial encounter; Z98.86 Personal history of breast implant removal; Z98.890 Other specified postprocedural states
CPT/HCPCS: 36415; 80053; 85027

== ENCOUNTER → 2022-09-23 | Outpatient (CLI) | payer BC, SELFPAY ==
[2022-09-23 16:52] LABS: Hematocrit 37.7 % (37-47); Hemoglobin 13.1 g/dL (12.0-15.0); Mean Corp Hgb Conc 34.7 g/dL (32-36); Mean Corpuscular Hgb 32.4 pg (27.0-32.0); Mean Corpuscular Volume 93.3 fL (81-99); Mean Platelet Vol. 11.5 fl (6.2-12.0); Platelet Count 223 K/mm3 (150-450); RBC Distribution Width CV 12.6 % (11.6-14.6); RBC Distribution Width SD 43.1 fl (35.1-43.9); Red Blood Count 4.04 M/mm3 (4.2-5.4); White Blood Count 6.6 K/mm3 (4.4-11.0)
[2022-09-23 18:46] LABS: AST(SGOT) 25 U/L (15-37); Alanine Aminotransfer ALT/SGPT 21 U/L (13-56); Albumin, Serum 3.7 g/dL (3.2-5.0); Alkaline Phosphatase 113 U/L (45-117); Anion Gap 5 (5-15); BUN 20 mg/dL (7-18); Calcium,Total 8.4 mg/dL (8.5-10.1); Chloride 110 mmol/L (98-107); Creatinine, Serum 0.91 mg/dL (0.55-1.02); EST Glomerular Filtration Rate 70 mL/min (>60); Est Glom Filt Rate - Afr Amer 85 mL/min (>60); Globulin 3.7 g/dL (2.2-4.2); Glucose 137 mg/dL (74-106); Potassium 3.9 mmol/L (3.5-5.1); Protein, Total 7.4 g/dL (6.4-8.2); Sodium Level 140 mmol/L (136-145)
== END | disposition home or self-care (01) ==
LOC: LAB 16:12
PROVIDERS: PCP Family Medicine; Referring Provider Nurse Practitioner Family; Visit Provider Nurse Practitioner Family
DX: Z40.01 Encounter for prophylactic removal of breast (principal); D64.9 Anemia, unspecified; Z98.890 Other specified postprocedural states; Z98.86 Personal history of breast implant removal; B36.9 Superficial mycosis, unspecified
CPT/HCPCS: 36415; 80053; 85027

== ENCOUNTER 2022-10-03 15:47 | Observation (INO) | payer BC, SELFPAY ==
[2022-10-03] VITALS (11 sets, daily range): BP systolic 92–129; BP diastolic 45–77; PULSE 57–95; RESP 16–18; TEMP 36.3–37.1; O2SAT 94–99; BMI 27.8
[2022-10-03] MEDS: Acetaminophen 500 MG Tablet 1000 MG PO ×3 (06:21→23:28)
[2022-10-03] MEDS: Gabapentin 600 MG Tablet PO (06:22)
[2022-10-03] MEDS: Lactated Ringers 1,000 ML 40 ML IV (06:22)
[2022-10-03] MEDS: Magnesium 1 GM over 15 mins IV (06:39)
[2022-10-03 07:17] LABS: Bedside Glucose 83 mg/dL (74-106)
[2022-10-03] MEDS: Methylene Blue 1% 100 MG/10 ML VIAL (08:40)
[2022-10-03] MEDS: Lidocaine 1% /Epi 1:100 (20ml) 20 ML Vial (08:43)
--- NOTE | 2022-10-03 13:01 | OP.PCM_ITS ---
Problems Associated Problem List Diagnoses (1) Monoallelic mutation of DEISY gene: (2) Genetic 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: (3) Cancer phobia: (4) Family history of breast cancer: (5) History of prophylactic mastectomy of both breasts: (6) Acquired absence of bilateral breasts and nipples: (7) Disproportion of reconstructed breast: (8) Former smoker: (9) Status post implant removal from both breasts: (10) Methicillin resistant Staphylococcus epidermidis infection: (11) Resistance to other single specified antibiotic: Report of Operation Date of Procedure: 10/03/22 Pre-Operative Diagnosis: 1. 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 2. Genetic susceptibility to breast cancer. 3. Cancer phobia. 4. Family history of breast cancer. 5. History of prophylactic mastectomy bilateral breasts. 6. Acquired absence bilateral breasts and nipples. 7. Disproportion reconstructed breasts. 8. Former smoker. 9. Status post implant removal from both breasts. 10. MRSE. Post-Operative Diagnosis: Same. Surgery/Procedure Performed:: 1. First stage revision right breast reconstruction with placement of submuscular saline tissue vertical mill operator (650 ml) and placement MTF FlexHD acellular dermal matrix graft (23 x 26 cm). 2. First stage revision left breast reconstruction with placement of submuscular saline tissue vertical mill operator (650 ml) and placement MTF FlexHD acellular dermal matrix graft (23 x 26 cm ). Description of Surgical Findings:: Comes in with no complaints. She has no breast pain. She denies fever. She is ready for the next stage in her breast reconstruction process. Her last surgery was on 05/30/22 where she underwent revision left breast reconstruction with excisional debridement nonhealing infected wound and removal exposed cohesive gel implant with capsulectomy and complex secondary wound closure and revision right breast reconstruction with excisional debridement nonhealing infected wound and removal cohesive gel implant with capsulectomy and complex secondary wound closure. She was discharged from the hospital on 06/02/22. Her initial surgery was on 04/11/22 where she underwent prophylactic mastectomy right breast and immediate right breast reconstruction with placement prepectoral cohesive gel implant (700 ml) and placement FlexHD acellular dermal matrix graft (23 x 26 cm) and mastopexy and right nipple reconstruction with placement of free nipple graft and prophylactic mastectomy left breast and immediate left breast reconstruction with placement prepectoral cohesive gel implant (700 ml) and placement FlexHD acellular dermal matrix graft (23 x 26 cm) and mastopexy and left nipple reconstruction with placement of free nipple graft. She was discharged from the hospital on 04/14/22. She presents today to continue her breast reconstruction process which is placement of saline tissue expanders and placement FlexHD acellular dermal matrix graft. Patient was informed of the risks and complications of the procedure including alternatives to surgery. These were discussed with the patient personally. Patient voices understanding and wishes to proceed. Some of the risks and complications were included in a form from the [employer]. Potential risks and complications included but not inclusive of bleeding, infection, seroma, hematoma, bruising, swelling, prolonged need for drains, loss of sensation to skin, partial or complete loss of skin flap and/or nipple graft, wound breakdown, need for wound care, poor scarring, poor aesthetic outcome, intra operative cardiac or neurologic events, DVT, PE, and reaction to anesthesia. Urine Output - 800 ml. I used [place] Artoura Plus Smooth Ultra High Breast Tissue Phone Banker, (650 ml, one in each breast). Catalog Number - [id number]. Lot Number - [id number]. Serial Number - [id number]. Expiration - March 31, 2026, (Left Breast). Catalog Number - [id number]. Lot Number - [id number]. Serial Number - [id number]. Expiration - May 12, 2025, (Right Breast). I used MTF FlexHD Acellular Dermal Matrix Graft, Pliable Pre, X-Large, Thick, (23 x 26 cm, one in each breast). Catalog Number - [id number]. Serial Number - [id number]. Expiration - June 16, 2025, (Left Breast). Catalog Number - [id number]. Serial Number - [id number]. Expiration - June 03, 2025, (Right Breast). Surgeon: Jarret Barrett MD grocery store associate: Anne-Marie Andino RNFA grocery store associate: SUJIT Diaz. Type of Anesthesia: Epidural and General Anesthesiologist: Giancarlo Reece MD and Kayla Peres CRNA. Specimen's removed: None. Drains: Anjel x 2, one in each breast. Estimated Blood Loss (mL): 50. Description of Procedure: Patient was taken to OR in supine position and was placed under general anesthesia. The bilateral breasts were prepped and draped in the usual fashion. SCD's were placed for DVT prophylaxis. Perioperative antibiotics were given intravenously. A bartlett catheter was placed. Using xylocaine with epinephrine, the horizontal mastectomy scars were infiltrated. The plan is to leave the vertical incisions alone to minimize healing issues. After waiting 5 minutes for the anesthetic to take effect, I first started on the right breast and then followed on the left breast. Using a scalpel I made an incision through the horizontal mastectomy scar down through the subcutaneous tissue until the chest wall was seen. The mastectomy skin on the right is thinner than on the left because the mastectomy skin on the right had to be stretched to close the wound after the infection. Therefore I decided to place the expanders underneath the muscle. My dissection went superiorly until the inferomedial border of the pectoralis muscle was seen. Dissection continued underneath the pectoralis major muscle creating the submuscular breast pocket superiorly to the clavicle, medially to the sternum, laterally to the anterior axillary line, and inferiorly at the inframammary crease. Hemostasis obtained with electrocautery. I then moved to the left breast and made an incision through the horizontal mastectomy scar down through the subcutaneous tissue until the chest wall was seen. My dissection continued superiorly until the inferomedial border of the pectoralis muscle was seen. Dissection continued underneath the pectoralis major muscle creating the submuscular breast pocket superiorly to the clavicle, medially to the sternum, laterally to the anterior axillary line, and inferiorly at the inframammary crease. Hemostasis obtained with electrocautery. I measured the horizontal width of both breast pockets which was 13.5 cm. I decided on Ultra High [place] Artoura Plus, Smooth, Breast Tissue Phone Banker with a size of 650 ml to fill the submuscular breast pocket. I removed the air from the expanders and then instilled 50 ml of saline and squeezed the expanders to look for any leaks, .and there weren't any. I placed the expanders in Betadine and placed it on the back table. I then covered the vertical mill operator with MTF Flex HD acellular dermal matrix graft, Pliable Pre, X-Large, Thick. Using a 3-0 Vicryl suture I placed them at the edges of the Flex HD all the way around as a purse string closure. I was able to bring out some of the suture tabs through the perforations already placed in the FlexHD. The suture tabs were kept in place with a couple of 3-0 Vicryl sutures. I irrigated out the breast pockets with Betadine. This was followed with irrigation with Irrisept 0.05% Chlorhexidine and then saline irrigation. It was a snug pocket and I felt there was no need at this time to place Maryana absorbable hemostat to minimize seroma formation. I then place size 15 Anjel drains through separate stab incisions laterally and secured to the skin with 3-0 Nylon purse string suture. I used one drain in each breast pocket. The expanders were then placed in the submuscular pocket first on the right and then on the left. I secured the expanders to the chest wall using 3-0 Vicry suture through the suture tabs. 3 sutures were placed (lateral and medial and inferior) as I could not get exposure superiorly to place any sutures there. I then closed the horizontal mastectomy wounds first on the right and then on the left. I used 3-0 Monocryl figure of eight interrupted sutures for the muscle and deep subcutaneous tissue and Carlyn's fascia. I used a malleable to protect the vertical mill operator from needle injury. I followed the needle from start to finish under direct vision. The deep dermis and subcutaneous tissue was approximated with 3-0 Monocryl interrupted sutures. The skin was approximated with 3-0 V lock unidirectional barbed running subcuticular suture. I also placed 4-0 Prolene vertical mattress sutures. This was followed by Histoacryl skin tissue adhesive. Kerlix gauze was applied followed by compression anai wrap. Patient tolerated the procedure well and was sent to PACU in satisfactory condition. Patient will be sent upstairs for continued postop care. Grafts/Implants Used: [place]r Artoura Plus Smooth Breast Tissue Phone Banker x2, MTF FlexHD x2 Procedure Start Time: 08:44 Procedure Stop Time: 12:20 Complications None. Admit VTE Documentation VTE Present on Admission: No VTE Mechan Device Prophylaxis: SCD's VTE Pharm Prophylaxis ordered?: Yes Addendum Addendum: Surgery Charges CPT - 10080-67 ICD-10 - Z15.01, F40.298, Z80.3, Z90.13, N65.1, Z87.891, Z98.86, A49.8, Z16.29 80263 Z15.01, F40.298, Z80.3, Z90.13, N65.1, Z87.891, Z98.86, A49.8, Z16.29 19645 Z15.01, F40.298, Z80.3, Z90.13, N65.1, Z87.891, Z98.86, A49.8, Z16.29 52490 Z15.01, F40.298, Z80.3, Z90.13, N65.1, Z87.891, Z98.86, A49.8, Z16.29
[2022-10-03] MEDS: Lactated Ringers 1,000 ML 60 ML IV (15:28)
[2022-10-03] MEDS: Ondansetron 4 MG/2 ML Vial IV (15:33)
[2022-10-03] MEDS: oxyCODONE 5 MG Tablet 10 MG PO ×2 (15:33→19:52)
[2022-10-03 17:02] LABS: Creatinine, Serum 0.78 mg/dL (0.55-1.02); EST Glomerular Filtration Rate 84 mL/min (>60); Est Glom Filt Rate - Afr Amer 101 mL/min (>60); Estimated Creatinine Clearance 82.57 ml/min
[2022-10-03] MEDS: Ensure Surgery 237 ML LIQUID PO (17:19)
[2022-10-03] MEDS: Gabapentin 100 MG Capsule 200 MG PO (17:19)
--- NOTE | 2022-10-03 17:21 | PCM.RX.CS ---
Consult Antibiotic Management Pharmacy has been consulted to manage selected antiobiotic: Vancomycin Type of Intervention Type of Consult: New start Suspected Infection Suspected Infection: Skin/Soft tissue Labs Labs: Creatinine 0.78 mg/dL (0.55-1.02) 10/03/22 05:58 Est GFR (MDRD) Af Amer 101 mL/min (>60) 10/03/22 05:58 Est GFR (MDRD) Non-Af 84 mL/min (>60) 10/03/22 05:58 Pharmacy Plan for Drug Dosing Pharmacy Plan for Drug Dosing: NEW START IV VANCOMYCIN Consulting Physician: MARIO Indication: SSTI/POST-OP Goal Trough: 10-15 MG/DL SrCr: 0.78 MG/DL CrCl: 82.6 ML/MIN Comments: RECEIVED PRE-OP DOSE OF 1250MG 10/03 @ 0627 Vancomycin Dose: WILL START 1000MG Q12 @ 1800 AND GET A TROUGH PRIOR TO 4TH TOTAL DOSE Pending Level: 10/04/22 @ 1736 Pharmacy Service will continue to monitor and adjust dosing as required.
[2022-10-03] MEDS: Vancomycin IV 1,000 MG/200 ML BAG 200 MG IV (18:22)
[2022-10-03] MEDS: Heparin Injection (Vial) 5,000 UNIT/ML VIAL 5000 UNIT SC (23:27)
[2022-10-03] MEDS: Docusate Sodium 100 MG Capsule PO (23:27)
[2022-10-03] MEDS: oxyCODONE 5 MG Tablet PO (23:55)
[2022-10-03] MEDS: Ondansetron ODT 4 MG Tablet PO (23:55)
[2022-10-04] MEDS: Rizatriptan Benzoate 10 MG Tablet PO (00:09)
[2022-10-04 03:13] VITALS: BP 103/55; PULSE 62; RESP 16; TEMP 36.6; O2SAT 95
[2022-10-04] MEDS: oxyCODONE 5 MG Tablet 10 MG PO ×3 (05:19→22:27)
[2022-10-04] MEDS: Lactated Ringers 1,000 ML 40 ML IV (05:19)
[2022-10-04] MEDS: Vancomycin IV 1,000 MG/200 ML BAG 200 MG IV ×2 (05:19→17:52)
[2022-10-04] MEDS: Acetaminophen 500 MG Tablet 1000 MG PO ×3 (05:20→17:53)
[2022-10-04 06:02] LABS: Hematocrit 35.6 % (37-47); Hemoglobin 11.5 g/dL (12.0-15.0); Mean Corp Hgb Conc 32.3 g/dL (32-36); Mean Corpuscular Hgb 31.7 pg (27.0-32.0); Mean Corpuscular Volume 98.1 fL (81-99); Mean Platelet Vol. 12.1 fl (6.2-12.0); Platelet Count 189 K/mm3 (150-450); RBC Distribution Width CV 12.4 % (11.6-14.6); Red Blood Count 3.63 M/mm3 (4.2-5.4); White Blood Count 13.5 K/mm3 (4.4-11.0)
[2022-10-04 07:07] LABS: Anion Gap 5 (5-15); BUN 15 mg/dL (7-18); BUN/Creat Ratio 16.6 RATIO (10-20); Chloride 107 mmol/L (98-107); EST Glomerular Filtration Rate 71 mL/min (>60); Est Glom Filt Rate - Afr Amer 86 mL/min (>60); Estimated Creatinine Clearance 71.56 ml/min; Glucose 142 mg/dL (74-106); Potassium 5.1 mmol/L (3.5-5.1); Prealbumin 25.3 mg/dL (20.0-40.0); Sodium Level 139 mmol/L (136-145)
[2022-10-04] MEDS: Gabapentin 100 MG Capsule 200 MG PO ×3 (09:35→17:52)
[2022-10-04] MEDS: Ensure Surgery 237 ML LIQUID PO ×2 (09:35→12:51)
[2022-10-04 09:38] VITALS: BP 114/54; PULSE 59; RESP 16; TEMP 36.9; O2SAT 98
[2022-10-04] MEDS: Pantoprazole Sodium 40 MG Tablet PO (09:49)
[2022-10-04] MEDS: Docusate Sodium 100 MG Capsule PO ×2 (09:49→22:25)
[2022-10-04] MEDS: Acyclovir 200 MG Capsule 400 MG PO ×2 (09:49→22:24)
[2022-10-04] MEDS: Fluconazole 100 MG Tablet 400 MG PO (09:50)
[2022-10-04] MEDS: Heparin Injection (Vial) 5,000 UNIT/ML VIAL 5000 UNIT SC ×2 (09:51→22:28)
[2022-10-04 15:44] VITALS: BP 111/48; PULSE 71; RESP 16; TEMP 36.7; O2SAT 94
[2022-10-04 17:51] LABS: Vancomycin, Trough Level 9.6 ug/mL (5.0-15.0)
--- NOTE | 2022-10-04 18:23 | PCM.RX.CS ---
Consult Antibiotic Management Pharmacy has been consulted to manage selected antiobiotic: Vancomycin Type of Intervention Type of Consult: Follow-up Suspected Infection Suspected Infection: Skin/Soft tissue Prior Doses of Antibiotics Prior Doses of Antibiotics Received/Current Regimen: Currently on 1000mg iv q12h Labs Labs: Sodium 139 mmol/L (136-145) 10/04/22 05:28 Potassium 5.1 mmol/L (3.5-5.1) 10/04/22 05:28 Chloride 107 mmol/L (98-107) 10/04/22 05:28 Carbon Dioxide 27.0 mmol/L (21.0-32.0) 10/04/22 05:28 Anion Gap 5 (5-15) 10/04/22 05:28 BUN 15 mg/dL (7-18) 10/04/22 05:28 Creatinine 0.90 mg/dL (0.55-1.02) 10/04/22 05:28 Est GFR (MDRD) Af Amer 86 mL/min (>60) 10/04/22 05:28 Est GFR (MDRD) Non-Af 71 mL/min (>60) 10/04/22 05:28 BUN/Creatinine Ratio 16.6 RATIO (10-20) 10/04/22 05:28 Glucose 142 mg/dL (74-106) H 10/04/22 05:28 Vancomycin Trough 9.6 ug/mL (5.0-15.0) 10/04/22 17:07 Dosing Weight Weight used for dosin.3 kg Estimated Creatinine Clearance Estimated Creatinine Clearance: 72 ml/min Pharmacy Plan for Drug Dosing Pharmacy Plan for Drug Dosing: Trough reported as 9.6 (12 hrs post dose) with goal of 10-15mcg/ml. Order will be changed to 1250mg iv q12h starting with next dose. New trough ordered for before 4th dose of new regimen. Pharmacy Service will continue to monitor and adjust dosing as required.
[2022-10-04 20:38] VITALS: BP 128/65; PULSE 70; RESP 16; TEMP 36.8; O2SAT 93
--- NOTE | 2022-10-04 21:55 | PN.SURG_ITS ---
Subjective Subjective Postop #1 Patient is resting comfortably. Has some incisional pain, worse on the left. Needed occasional IV analgesia for pain control. Objective Data Objective Data Vital Signs: Vital Signs Temp Pulse Resp BP Pulse Ox O2 Del Method O2 Flow Rate 98.2 F 70 16 128/65 H 93 Room Air 4 10/04/22 20:38 10/04/22 20:38 10/04/22 20:38 10/04/22 20:38 10/04/22 20:38 10/04/22 20:38 10/03/22 13:15 Oxygen Flow Rate (L/min) 4 Oxygen Delivery Method Room Air Weight: 172 lb 9.951 oz Body Mass Index (BMI) 27.8 Intake & Output: Intake and Output for Last 24 Hours 10/02/22 10/03/22 10/04/22 23:59 23:59 23:59 Intake Total 1110.33 / 1110.33 2750 / 2750 Output Total 1989 / 1989 2495 / 2495 Balance -879.67 / -879.67 255 / 255 Drainage 90 ml yesterday, 95 ml today Prealbumin was 25.3. Encourage nutritional supplementation with protein to help the healing process. Lab / Micro Data Attestation: I reviewed the patient's lab results. 10/05/22 08:35 10/05/22 08:35 Labs: Laboratory Results - last 24 hr 10/04/22 05:28: WBC 13.5 H, RBC 3.63 L, Hgb 11.5 L, Hct 35.6 L, MCV 98.1, MCH 3 1.7, MCHC 32.3, RDW Std Deviation 45.0 H, RDW Coeff of Khushi 12.4, Plt Count 189, MPV 12.1 H, Sodium 139, Potassium 5.1, Chloride 107, Carbon Dioxide 27.0, Anion Gap 5, BUN 15, Creatinine 0.90, Estim Creat Clear Calc 71.56, Est GFR (MDRD) Af Amer 86, Est GFR (MDRD) Non-Af 71, BUN/Creatinine Ratio 16.6, Glucose 142 H, Calcium 9.0, Prealbumin 25.3 10/04/22 17:07: Vancomycin Trough 9.6 Physical Exam Narrative General - Alert and Oriented HEENT - PERRL. EOMI. Neck - Supple and nontender. Breasts - Incisions dry and intact. No clinical evidence of hematoma. No vascular compromise noted on the breast skin flaps. Abdomen - Soft and nondistended. Neuro - CN II-XII grossly intact. Psych - Normal mood and affect. Assessment & Plan Assessment/Plan (1) Monoallelic mutation of DEISY gene: (2) Genetic 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: (3) Cancer phobia: (4) Family history of breast cancer: (5) History of prophylactic mastectomy of both breasts: (6) Acquired absence of bilateral breasts and nipples: (7) Disproportion of reconstructed breast: (8) Former smoker: (9) Status post implant removal from both breasts: (10) Methicillin resistant Staphylococcus epidermidis infection: PLAN: Plan Patient has incisional pain, worse on the left. Incisions are dry and intact. No clinical evidence of hematoma. Continue Vancomycin for previous MRSE infection. After discharge, will be placed on Linezolid for a couple of weeks until the drains are removed. Prealbumin is 25.3. Encourage nutritional supplementation with protein to help the healing process. She is a little unsteady on her feet with ambulation. Will wait until tomorrow for discharge to give her time to get more steady on her feet. Still needs occasional IV analgesia. Will wean to po analgesia in preparation for discharge tomorrow.
[2022-10-04] MEDS: diazePAM 5 MG Tablet PO (22:27)
[2022-10-05] MEDS: Acetaminophen 500 MG Tablet 1000 MG PO ×2 (00:01→06:22)
[2022-10-05 00:10] VITALS: BP 107/58; PULSE 68; RESP 16; TEMP 36.7; O2SAT 96
[2022-10-05 06:13] VITALS: BP 105/46; PULSE 71; RESP 16; TEMP 36.8; O2SAT 96
[2022-10-05] MEDS: oxyCODONE 5 MG Tablet 10 MG PO (06:22)
[2022-10-05] MEDS: diazePAM 5 MG Tablet PO (06:23)
[2022-10-05] MEDS: Lactated Ringers 1,000 ML 40 ML IV (06:47)
[2022-10-05 07:18] VITALS: O2SAT 98
--- NOTE | 2022-10-05 07:57 | DCINST_ITS ---
Discharge Instructions Diet Discharge Diet: No restrictions and - (encourage nutritional supplementation with protein to help the healing process) Activity Discharge Activity: May Not Drive, May Not Shower (until the drains are removed) and - (keep head elevated. no heavy lifting.) May shower in (days): 14 May resume sexual activity in: 10-14 days Weight Bearing Status: Weight bearing as tolerated Lifting Restrictions: 20 lbs. Keep extremity elevated above heart level: - (elevate head) Dressing / Incision Call your doctor if your incision/area has: Continuous Slow Oozing, Sudden Increased Bleeding, Increased Pain/ Swelling, Increased Redness, Foul Smelling Discharge and Swelling at the incision site Call your doctor if you observe: Fever of 101 or Higher, Coldness, Increased Pain, Shortness of breath, Chest pain, Calf discomfort and Uncontrolled pain Suture Line Care: - (dry dressing every day or every other day) Change Dressing in: 1 day Cleanse incision/area with: - (may get incisions wet in the shower after the drains are removed.) Drain: Suction (britany drain x2 to bulb suction. empty and record output daily.) Follow Up Care Please Follow Up With: Jarret Barrett MD When: one week ( or Thursday). call [phone] for appt. Test Results: Test results from this visit will be discussed in further detail at your follow- up appointment, if applicable. Discharge Plan Admission Admit Date/Time: 10/03/22 15:47 Primary Reason for Your Visit: bilateral breast reconstruction with saline tissue expanders Attending Provider: Jarret Barrett Primary Care Provider: Amanda Hyatt Discharge Orders/Prescriptions Prescriptions: New linezolid 600 mg tablet 600 mg PO Q12H 14 Days Qty: 28 0RF L.acidoph,saliva-B.bif-S.therm [Acidophilus Probiotic Blend] 175 mg capsule 1 cap PO DAILY Qty: 30 0RF oxycodone-acetaminophen [Percocet] 5-325 mg tablet 1 tab PO Q6H PRN (Reason: pain (scale score 7-10)) 7 Days Qty: 28 0RF Rx Instructions: 28 tabs (twenty-eight) docusate sodium [Colace] 100 mg capsule 100 mg PO BID Qty: 60 0RF diazepam [Valium] 5 mg tablet 5 mg PO 4X/DAY PRN PRN (Reason: spasms) Qty: 28 0RF Rx Instructions: 28 tabs (twenty-eight) Continued sumatriptan succinate 100 mg tablet 100 mg PO PRN PRN (Reason: MIGRAINE) Patient Comments: TAKE 1 TABLET FOR MIGRAINE RELIEF. MAY REPEAT 2 HOURS LATER. MAXIMUM 200MG/DAY. valacyclovir 500 mg tablet 500 mg PO DAILY Patient Comments: TAKE 1 TABLET BY MOUTH EVERY DAY omeprazole 40 mg capsule,delayed release(DR/EC) 40 mg PO DAILY Patient Comments: TAKE 1 CAPSULE BY MOUTH EVERY DAY fluconazole [Diflucan] 200 mg tablet 400 mg PO DAILY 28 Days Qty: 56 1RF Held ibuprofen 800 mg tablet 800 mg PO Q12H PRN PRN (Reason: Migraine Headache) Hold Instructions: Resume on 10/08/22. Patient Comments: TAKE 1 TABLET BY MOUTH THREE TIMES A DAY NEEDED Referrals / Follow Up: Amanda Hyatt MD [Primary Care Provider] - Disposition Disposition (needs filled in before D/C Order can be placed): Home, Self Care
[2022-10-05] MEDS: Ensure Surgery 237 ML LIQUID PO (08:53)
[2022-10-05] MEDS: Gabapentin 100 MG Capsule 200 MG PO (08:53)
[2022-10-05 08:54] LABS: Hemoglobin 11.1 g/dL (12.0-15.0); Mean Corp Hgb Conc 32.6 g/dL (32-36); Mean Corpuscular Hgb 32.3 pg (27.0-32.0); Mean Corpuscular Volume 98.8 fL (81-99); Mean Platelet Vol. 11.6 fl (6.2-12.0); Platelet Count 194 K/mm3 (150-450); RBC Distribution Width CV 12.9 % (11.6-14.6); Red Blood Count 3.44 M/mm3 (4.2-5.4); White Blood Count 10.7 K/mm3 (4.4-11.0)
[2022-10-05 09:13] LABS: Anion Gap 5 (5-15); BUN 16 mg/dL (7-18); Calcium,Total 8.4 mg/dL (8.5-10.1); Chloride 106 mmol/L (98-107); Creatinine, Serum 0.76 mg/dL (0.55-1.02); EST Glomerular Filtration Rate 86 mL/min (>60); Est Glom Filt Rate - Afr Amer 104 mL/min (>60); Estimated Creatinine Clearance 84.75 ml/min; Glucose 107 mg/dL (74-106); Sodium Level 140 mmol/L (136-145)
[2022-10-05 10:18] VITALS: BP 116/55; PULSE 60; RESP 16; TEMP 36.8; O2SAT 95
[2022-10-05] MEDS: Acyclovir 200 MG Capsule 400 MG PO (10:19)
[2022-10-05] MEDS: Fluconazole 100 MG Tablet 400 MG PO (10:20)
[2022-10-05] MEDS: Pantoprazole Sodium 40 MG Tablet PO (10:20)
[2022-10-05] MEDS: Heparin Injection (Vial) 5,000 UNIT/ML VIAL 5000 UNIT SC (10:21)
[2022-10-05] MEDS: Docusate Sodium 100 MG Capsule PO (10:23)
--- NOTE | 2022-10-05 19:00 | PCM.DC.SUM ---
Providers Date of Admission: 10/03/22 Date of Discharge: 10/05/22 Primary Care Physician: Dr. Amanda Hyatt MD Attending Physician: Dr. Jarret Barrett MD Consultations None. 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 Code(s): Z15.89 - Genetic susceptibility to other disease; Z15.01 - Genetic 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; Z15.09 - Genetic susceptibility to other malignant neoplasm (2) 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 Code(s): Z15.01 - Genetic 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 (3) Cancer phobia: Status: Chronic Code(s): F40.298 - Other specified phobia (4) Family history of breast cancer: Status: Chronic Code(s): Z80.3 - Family history of malignant neoplasm of breast (5) Acquired absence of bilateral breasts and nipples: Status: Acute Code(s): Z90.13 - Acquired absence of bilateral breasts and nipples (6) Disproportion of reconstructed breast: Status: Acute Code(s): N65.1 - Disproportion of reconstructed breast (7) History of prophylactic mastectomy of both breasts: Status: Chronic Code(s): Z90.13 - Acquired absence of bilateral breasts and nipples (8) Status post implant removal from both breasts: Status: Chronic Code(s): Z98.86 - Personal history of breast implant removal (9) Methicillin resistant Staphylococcus epidermidis infection: Status: Acute Code(s): A49.8 - Other bacterial infections of unspecified site; Z16.29 - Resistance to other single specified antibiotic (10) Resistance to other single specified antibiotic: Status: Chronic Code(s): Z16.29 - Resistance to other single specified antibiotic (11) Former smoker: Status: Chronic Code(s): Z87.891 - Personal history of nicotine dependence Medications at Discharge Home Medications ibuprofen 800 mg tablet 800 mg PO Q12H PRN PRN Migraine Headache 03/28/22 omeprazole 40 mg capsule,delayed release 40 mg PO DAILY 03/28/22 sumatriptan succinate 100 mg tablet 100 mg PO PRN PRN MIGRAINE 03/28/22 valacyclovir 500 mg tablet 500 mg PO DAILY 03/28/22 fluconazole 200 mg tablet (Diflucan) 400 mg (2 x 200 mg) PO DAILY 4 weeks #56 tabs 07/29/22 L.acidophil,salivari-Bifido bifidum-Strep thermoph 175 mg capsule (Acidophilus Probiotic Blend) 1 cap PO DAILY #30 caps 10/05/22 diazepam 5 mg tablet (Valium) 5 mg PO 4X/DAY PRN PRN spasms #28 tabs 10/05/22 docusate sodium 100 mg capsule (Colace) 100 mg PO BID #60 caps 10/05/22 linezolid 600 mg tablet 600 mg PO Q12H 14 days #28 tabs 10/05/22 oxycodone-acetaminophen 5 mg-325 mg tablet (Percocet) 1 tab PO Q6H PRN pain (scale score 7-10) 7 days #28 tabs 10/05/22 Hospital Course Operations None (10/03/22 - 1. First stage revision right breast reconstruction with placement of submuscular saline tissue pebble mill operator (650 ml) and placement MTF FlexHD acellular dermal matrix graft (23 x 26 cm). ) and - (2. First stage revision left breast reconstruction with placement of submuscular saline tissue pebble mill operator (650 ml) and placement MTF FlexHD acellular dermal matrix graft (23 x 26 cm ). ) Procedures None Summary of Care Provided Minutes Spent on Discharge: 35 Hospital Course: Patient presented to the office last week to discuss further breast reconstruction. Comes in with no complaints. She has no breast pain. She denies fever. She is ready for the next stage in her breast reconstruction process which is placement of saline tissue expanders and placement acellular dermal matrix graft. Her last surgery was on 05/30/22 where she underwent revision left breast reconstruction with excisional debridement nonhealing infected wound and removal exposed cohesive gel implant with capsulectomy and complex secondary wound closure and revision right breast reconstruction with excisional debridement nonhealing infected wound and removal cohesive gel implant with capsulectomy and complex secondary wound closure. She was discharged from the hospital on 06/02/22. Her initial surgery was on 04/11/22 where she underwent prophylactic mastectomy right breast and immediate right breast reconstruction with placement prepectoral cohesive gel implant (700 ml) and placement FlexHD acellular dermal matrix graft (23 x 26 cm) and mastopexy and right nipple reconstruction with placement of free nipple graft and prophylactic mastectomy left breast and immediate left breast reconstruction with placement prepectoral cohesive gel implant (700 ml) and placement FlexHD acellular dermal matrix graft (23 x 26 cm) and mastopexy and left nipple reconstruction with placement of free nipple graft. She was discharged from the hospital on 04/14/22. On 10/03/22, patient went to surgery where she underwent first stage revision right breast reconstruction with placement of submuscular saline tissue pebble mill operator (650 ml) and placement MTF FlexHD acellular dermal matrix graft (23 x 26 cm) and first stage revision left breast reconstruction with placement of submuscular saline tissue pebble mill operator (650 ml) and placement MTF FlexHD acellular dermal matrix graft (23 x 26 cm). Her hospital course was unremarkable. She was afebrile. Her drainage ranged from 147 ml on the first postop day to 20 ml on the day of discharge. Her Hgb was stable at 11.1 on the day of discharge. Her Prealbumin was 25.3. Encourage nutritional supplementation with protein to help the healing process. On the first postop day, she had incisional pain worse on the left. She needed occasional IV analgesia so we weaned her to po analgesia by the second postop day in preparation for discharge. Also on the first postop day, she was a little unsteady on her feet with ambulation. She worked on getting more stable with ambulation by the second postop day in preparation for discharge. Her breast incisions were dry and intact. No clinical evidence of hematoma. No vascular compromise was seen on her breast skin flaps. On the second postop day she was discharged home in satisfactory condition. Scripts were sent to her Pharmacy for Linezolid because of her history of MRSE, Acidophilus Probiotic until she has finished her antibiotics, Percocet for pain (28 tabs), Valium for spasm (28 tabs), and Colace for constipation. Condition upon discharge is good. Keep head elevated. Continue lifting restriction (20 lbs). Will remove the drains in the office (14 days). No showering until the drains are removed. Followup office later in the week ( or Thursday). Physical Exam Narrative General - Alert and Oriented HEENT - PERRL. EOMI. Neck - Supple and nontender. Breasts - incisions are dry and intact. breasts are soft and symmetrical. no clinical evidence of hematoma. Abdomen - Soft and nondistended. Extremities - FROM. No axillary adenopathy. Radial pulses are palpable. Neuro - CN II-XII grossly intact. Psych - Normal mood and affect. Medical Records Data Attestation: I reviewed the patient's medical records Prealbumin was 25.3. Encourage nutritional supplementation with protein to help the healing process. Weight / BMI Weight Weight: 172 lb 9.951 oz Body Mass Index (BMI) 27.8 ABG / Lab / Microbiology Data 10/05/22 08:35 10/05/22 08:35 Laboratory: Laboratory Results - last 24 hr 10/05/22 08:35: WBC 10.7, RBC 3.44 L, Hgb 11.1 L, Hct 34.0 L, MCV 98.8, MCH 32.3 H, MCHC 32.6, RDW Std Deviation 46.0 H, RDW Coeff of Khushi 12.9, Plt Count 194, MPV 11.6, Sodium 140, Potassium 4.0, Chloride 106, Carbon Dioxide 29.0, Anion Gap 5, BUN 16, Creatinine 0.76, Estim Creat Clear Calc 84.75, Est GFR (MDRD) Af Amer 104, Est GFR (MDRD) Non-Af 86, BUN/Creatinine Ratio 21.0 H, Glucose 107 H, Calcium 8.4 L D/C Instructions Discharge Diet: No restrictions and - (encourage nutritional supplementation with protein to help the healing process) Discharge Activity: May Not Drive, May Not Shower (until the drains are removed..) and - May shower in (days): 14 May resume sexual activity in: 10-14 days Weight Bearing Status: Weight bearing as tolerated Lifting Restricted to (Lbs): 20 Keep extremity elevated above heart level: - (elevate head) Call your doctor if your incision/area has: Continuous Slow Oozing, Sudden Increased Bleeding, Increased Pain/ Swelling, Increased Redness, Foul Smelling Discharge and Swelling at the incision site Call your doctor if you observe: Fever of 101 or Higher, Coldness, Increased Pain, Shortness of breath, Chest pain, Calf discomfort and Uncontrolled pain Suture Line Care: - (dry dressing every day or every other day) Change Dressing in: 2 days Cleanse incision/area with: - (may get incisions wet in the shower after the drains are removed.) Drain: Suction (britany drain x2 to bulb suction. empty and record output daily.) Please Follow Up With: Jarret Barrett MD When: one week ( or Thursday). call [phone] for appt. Meaningful Use Info Meaningful Use Diagnoses (Choose all that apply): None applicable Discharge Plan Admission Admit Date/Time: 10/03/22 15:47 Primary Reason for Your Visit: bilateral breast reconstruction with saline tissue expanders Attending Provider: Jarret Barrett Primary Care Provider: Amanda Hyatt Discharge Orders/Prescriptions Prescriptions: New linezolid 600 mg tablet 600 mg PO Q12H 14 Days Qty: 28 0RF L.acidoph,saliva-B.bif-S.therm [Acidophilus Probiotic Blend] 175 mg capsule 1 cap PO DAILY Qty: 30 0RF oxycodone-acetaminophen [Percocet] 5-325 mg tablet 1 tab PO Q6H PRN (Reason: pain (scale score 7-10)) 7 Days Qty: 28 0RF Rx Instructions: 28 tabs (twenty-eight) docusate sodium [Colace] 100 mg capsule 100 mg PO BID Qty: 60 0RF diazepam [Valium] 5 mg tablet 5 mg PO 4X/DAY PRN PRN (Reason: spasms) Qty: 28 0RF Rx Instructions: 28 tabs (twenty-eight) Continued sumatriptan succinate 100 mg tablet 100 mg PO PRN PRN (Reason: MIGRAINE) Patient Comments: TAKE 1 TABLET FOR MIGRAINE RELIEF. MAY REPEAT 2 HOURS LATER. MAXIMUM 200MG/DAY. valacyclovir 500 mg tablet 500 mg PO DAILY Patient Comments: TAKE 1 TABLET BY MOUTH EVERY DAY omeprazole 40 mg capsule,delayed release(DR/EC) 40 mg PO DAILY Patient Comments: TAKE 1 CAPSULE BY MOUTH EVERY DAY fluconazole [Diflucan] 200 mg tablet 400 mg PO DAILY 28 Days Qty: 56 1RF Held ibuprofen 800 mg tablet 800 mg PO Q12H PRN PRN (Reason: Migraine Headache) Hold Instructions: Resume on 10/08/22. Patient Comments: TAKE 1 TABLET BY MOUTH THREE TIMES A DAY NEEDED Referrals / Follow Up: Amanda Hyatt MD [Primary Care Provider] - Disposition Disposition (needs filled in before D/C Order can be placed): Home, Self Care
== END 2022-10-05 11:15 | disposition home or self-care (01) ==
LOC: SDC 16:11 → MS3 16:11
PROVIDERS: Anesthesiology; Admitting Provider Surgery; PCP Family Medicine; Referring Provider Surgery; Visit Provider Surgery
PROC: (CPT 19357; principal; 2022-10-03 07:15)
DX: N65.1 Disproportion of reconstructed breast (principal); Z15.01 Genetic susceptibility to malignant neoplasm of breast; Z90.13 Acquired absence of bilateral breasts and nipples; Z87.891 Personal history of nicotine dependence; Z79.899 Other long term (current) drug therapy; N64.81 Ptosis of breast; F40.298 Other specified phobia; Z80.3 Family history of malignant neoplasm of breast; Z16.29 Resistance to other single specified antibiotic; K21.9 Gastro-esophageal reflux disease without esophagitis
CPT/HCPCS: 19357; 15777; 00402; 36415; 80048; 80202; 82565; 82962; 83735; 84134; 85027; 94668; 96365; 96366; 96372; 96375; 99221; 99252; J7050; J7120; A4216; G0378; G0463; J2405; J3475

== ENCOUNTER → 2022-10-23 | Outpatient (CLI) | payer BC, SELFPAY ==
[2022-10-23 11:53] LABS: ALB/GLOB Ratio 0.9 RATIO (0.9-2.4); AST(SGOT) 16 U/L (15-37); Alanine Aminotransfer ALT/SGPT 21 U/L (13-56); Albumin, Serum 3.5 g/dL (3.2-5.0); Alkaline Phosphatase 130 U/L (45-117); Anion Gap 6 (5-15); BUN 22 mg/dL (7-18); BUN/Creat Ratio 28.3 RATIO (10-20); Calcium,Total 9.2 mg/dL (8.5-10.1); Chloride 105 mmol/L (98-107); Creatinine, Serum 0.78 mg/dL (0.55-1.02); EST Glomerular Filtration Rate 84 mL/min (>60); Est Glom Filt Rate - Afr Amer 102 mL/min (>60); Glucose 151 mg/dL (74-106); Potassium 3.9 mmol/L (3.5-5.1); Protein, Total 7.5 g/dL (6.4-8.2); Sodium Level 138 mmol/L (136-145)
== END | disposition home or self-care (01) ==
LOC: LAB 11:00
PROVIDERS: PCP Family Medicine; Referring Provider Nurse Practitioner Family; Visit Provider Nurse Practitioner Family
DX: B36.9 Superficial mycosis, unspecified (principal)
CPT/HCPCS: 36415; 80053

== ENCOUNTER 2023-01-21 16:10 | Observation (INO) | payer BC, SELFPAY ==
[2023-01-16 14:20] LABS: Magnesium 2.3 mg/dL (1.6-2.6)
--- NOTE | 2023-01-20 21:46 | HP.PCM_ITS ---
History and Physical Date of Admission: 01/21/23 HISTORY OF PRESENT ILLNESS Comes in today with no complaints. She had some discomfort after her last expansion and it has improved. She denies fever. She is ready for the next stage in her breast reconstruction process. Her initial surgery was on 04/11/22 where she underwent prophylactic mastectomy right breast and immediate right breast reconstruction with placement prepectoral cohesive gel implant (700 ml) and placement FlexHD acellular dermal matrix graft (23 x 26 cm) and mastopexy and right nipple reconstruction with placement of free nipple graft and prophylactic mastectomy left breast and immediate left breast reconstruction with placement prepectoral cohesive gel implant (700 ml) and placement FlexHD acellular dermal matrix graft (23 x 26 cm) and mastopexy and left nipple reconstruction with placement of free nipple graft. Postop she developed wound breakdown at the Tzone area which exposed the implants. She returned to surgery on 05/30/22 where she underwent revision left breast reconstruction with excisional debridement nonhealing infected wound and removal exposed cohesive gel implant with capsulectomy and?complex secondary wound closure and revision right breast reconstruction with excisional debridement nonhealing infected wound and removal cohesive gel implant with capsulectomy and complex secondary wound closure.?Postop she had no healing issues. She returned to surgery on 10/03/22 where she underwent first stage revision right breast reconstruction with placement of submuscular saline tissue cardiac monitor technician (650 ml) and placement MTF FlexHD acellular dermal matrix graft (23 x 26 cm) and first stage revision left breast reconstruction with placement of submuscular saline tissue cardiac monitor technician (650 ml) and placement MTF FlexHD acellular dermal matrix graft (23 x 26 cm ). She tolerated the surgery and had no healing problems and also tolerated the saline tissue expansion. We are ready for the next stage in the breast reconstruction process which is placement of cohesive gel implants, and it is scheduled for January 21, 2023. ? PAST MEDICAL HISTORY Acquired absence of bilateral breasts and nipples Cancer phobia Disproportion of reconstructed breast Exposed breast implant Failed skin graft Failure of flap graft Family history of breast cancer Former smoker Frequent headaches Gastric reflux Genetic 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 History of bilateral removal of breast implants Infection of breast implant Methicillin resistant Staphylococcus epidermidis infection Migraine headache Monoallelic mutation of DEISY gene Nonhealing surgical wound Pneumonia PONV (postoperative nausea and vomiting) Prophylactic breast removal Prophylactic ovary removal Ptosis of both breasts PAST SURGICAL HISTORY History of bilateral breast implants History of bilateral oophorectomy History of bladder surgery History of hysterectomy History of placement of ear tubes History of prophylactic mastectomy of both breasts History of reconstruction of both breasts Hx of bilateral mastectomy Status post bilateral breast reconstruction Status post bilateral mastectomy Status post implant removal from both breasts First stage revision right breast reconstruction with placement of submuscular saline tissue cardiac monitor technician (650 ml) and placement MTF FlexHD acellular dermal matrix graft (23 x 26 cm) and first stage revision left breast reconstruction with placement of submuscular saline tissue cardiac monitor technician (650 ml) and placement MTF FlexHD acellular dermal matrix graft (23 x 26 cm ) - 10/03/22 ALLERGIES Penicillins [PCN] MEDICATIONS ibuprofen omeprazole sumatriptan succinate valacyclovir fluconazole (Diflucan) FAMILY HISTORY Grandmother Breast cancerAunt Breast cancerFather Diabetes SOCIAL HISTORY Smoking Status: Former smoker alcohol intake: current substance use type: does not use REVIEW OF SYSTEMS General - Denies fever, fatigue, and weight loss. Eyes - Denies cataracts and glaucoma. ENT - Denies nasal congestion and sore throat. Endocrine - Denies excessive thirst and urination.? Has family history of breast cancer (Grandmother and Aunt).? She had genetic testing which showed an abnormal DEISY mutation.? Had hysterectomy and earlier this year, she had bilateral oophorectomy. Skin - Denies suspicious lesions and skin cancer. Musculoskeletal - Denies joint pain, joint stiffness, weakness of muscles and joints, back pain, and arthritis. Neuro - Has headaches. Cardiovascular - Denies chest pain, fatigue, and shortness of breath with exertion. Psych - Denies anxiety and depression. Respiratory - Denies chronic cough and shortness of breath.? Patient is a former smoker. Gastrointestinal - Denies nausea, vomiting, diarrhea.? Has constipation. Hematologic - Denies abnormal bruising and bleeding. Genitourinary - Denies hematuria and urinary frequency. PHYSICAL EXAMINATION General - Alert and Oriented.? Her bra size was 36 D before the mastectomies. HEENT - PERRL. EOMI.? Throat is clear. Neck - Supple and nontender.? No cervical adenopathy. Breasts - Her breast Tzone incisions are well healed. No vascular compromise noted on the breast skin flaps.? No clinical evidence of hematoma.? Nipple grafts are well healed. The expanders show good shape and contour and good breast symmetry. The expanders have caused asymmetry of the inframammary folds with the left one being more inferior as compared to the right. On the right breast, the nipple areolar complex has irregular borders from debridement of the eschar. The irregular borders can be revised with nipple reconstruction with skin grafting. Later on after healing of the skin graft, can proceed with further bilateral nipple reconstruction with intradermal nipple tattooing. On the lateral aspect of both breasts are excess mastectomy skin contour defor mity. Lungs - Clear to auscultation. Heart - Regular rate and rhythm. Abdomen - Soft and nondistended. Extremities - FROM. No axillary adenopathy.? Radial pulses are palpable. Neuro - CN II-XII grossly intact. Psych - Normal mood and affect. ASSESSMENT 1.? 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 2.? Genetic susceptibility to breast cancer. 3.? Cancer phobia. 4.? Family history of breast cancer. 5.? History of prophylactic bilateral oophorectomy. 6. History of prophylactic mastectomy bilateral breasts. 7.? Acquired absence bilateral breasts and nipples. 8.? Disproportion reconstructed breasts with asymmetric inframammary folds. 9. Deformity reconstructed breasts with excess mastectomy skin contour deformity laterally. 10. Former smoker. 11. MRSE. PLAN Patient is ready to continue with the next stage in the bilateral breast reconstruction process which is removal of the submuscular saline tissue expanders with replacement cohesive gel implants and placement acellular dermal matrix grafts. Depending on the shape of the breast pockets, capsulotomies may be necessary. To improve the asymmetric inframammary folds, I will elevate and reinforce the inframammary folds with intracapsular plication. There is some excess mastectomy skin contour deformity laterally that will be excised in both breasts reconstruction. Depending on how long the surgery takes I may or may not have time to revise the right nipple reconstruction with skin grafting the areola to make it more symmetrical with the left nipple.? After healing has oc curred, if there are coloration issues with the skin graft, then additional nipple reconstruction with intradermal tattooing can be done. The implants part of the procedure needs to take less than 6 hours in order to consider an additional elective procedure such as nipple reconstruction. If it takes more than 6 hours, then any additional procedures can be done at a later date. Surgeries that last longer than 6 hours have an increased risk of a complication, such as developing a blood clot. Surgery will be done under general anesthesia with a surgical observation overnight stay in the hospital. Patient was informed of the risks and complications of the procedure including alternatives to surgery.? These were discussed with the patient personally.? Patient voices understanding and wishes to proceed. Some of the risks and complications were included in a form from the [employer]. Potential risks and complications included but not inclusive of bleeding, infect ion, seroma, hematoma, bruising, swelling, prolonged need for drains, loss of sensation to skin, partial or complete loss of skin flap and/or nipple graft, wound breakdown, need for wound care, poor scarring, poor aesthetic outcome, intra operative cardiac or neurologic events, DVT, PE, and reaction to anesthesia. She had cultures done during her previous surgeries. They grew out MRSE and Enterococcus faecalis. Will treat her perioperatively with Vancomycin. She will have drains in for 10-14 days. She will be maintained on antibiotics until the drains are removed. Assessment & Plan Assessment/Plan (1) Monoallelic mutation of DEISY gene: (2) Genetic 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: (3) Cancer phobia: (4) History of prophylactic mastectomy of both breasts: (5) Acquired absence of bilateral breasts and nipples: (6) Disproportion of reconstructed breast: (7) Family history of breast cancer: (8) History of bilateral oophorectomy: (9) Former smoker: (10) Methicillin resistant Staphylococcus epidermidis infection: (11) Deformity of reconstructed breast:
[2023-01-21] VITALS (12 sets, daily range): BP systolic 95–126; BP diastolic 54–73; PULSE 65–107; RESP 16–18; TEMP 36.7–37.6; O2SAT 88–98; BMI 28.8
[2023-01-21] MEDS: Magnesium 1 GM over 15 mins IV (06:45)
[2023-01-21] MEDS: Vancomycin HCl 1,250 MG in 0.9% Normal Saline (250mL Bag) 250 ML 167 MG IV (06:46)
[2023-01-21] MEDS: Lactated Ringers 1,000 ML 40 ML IV (06:46)
[2023-01-21] MEDS: Gabapentin 600 MG Tablet PO (06:47)
[2023-01-21] MEDS: Scopolamine 1mg/72hr Patch 1 PATCH TD (06:47)
[2023-01-21] MEDS: Acetaminophen 500 MG Tablet 1000 MG PO ×3 (06:47→23:27)
[2023-01-21 07:58] LABS: Bedside Glucose 83 mg/dL (74-106)
--- NOTE | 2023-01-21 08:00 | BRBX_PTH ---
PATIENT: SANG MAIN LOC: MS3 U#:[id number] AGE/SX: 47/F ROOM: [facility] [place] RE01/21/[address]: Dr. Jarret Barrett MD : 1975 BED: 1 DIS: 01/23/2023 SPEC #: [id number] RECD: 01/22/23 07:53 STATUS: RYLAND COOKMark Anthony #: [id number] SHIRA: 01/21/23 08:[address]: Jarret Barrett DEPT: SURGICAL PATHOLOGY RECD BY: Heather Swanson ENTERED: 01/22/23 07:55 SP TYPE: BREAST BX OTHR DR: Dr. Amanda Hyatt MD Tissues: A - FOREIGN BODY B - Left breast, NOS C - Right breast, NOS Procedures: Surgery Specimen Level I Surgery Specimen Level IV HEADER OPERATION: ERAS, revision bilateral breast reconstruction PRE-OP DIAGNOSIS: History of prophylactic mastectomy of both breasts TISSUE SUBMITTED: A. Right and left expanders, B. Left breast and capsule, C. Right breast and capsule MICROSCOPIC DIAGNOSIS A. Right and left expanders: Bilateral breast implants (gross only). B. Left breast and capsule, revision: Skin and underlying tissue with focal foreign body giant cell reaction. C. Right breast and capsule, revision: Skin and underlying tissue with focal foreign body giant cell reaction. SJ: 01/23/2023 MICROSCOPIC DESCRIPTION Slides are reviewed. GROSS DESCRIPTION A. Received is one container labeled with the patient's name and designated right and left breast expanders. The specimen consists of two breast implants with the inscriptions: [place] [id number], [id number] and [place] [id number], [id number]. no leaks noted on one and the other is slightly flattened. B: Received in fixative is one container labeled with the patient's name and designated left breast and capsule. The specimen consists of a triangular piece of bagley-white skin measuring 1.8 x 1.5 x 0.5 cm and is serially sectioned and is totally submitted in once cassette. C. Received in fixative is one container labeled with the patient's name and designated right breast and capsule. The specimen consists of an irregular piece of bagley-white skin measuring 2 x 1 x 0.5 cm and is serially sectioned and is totally submitted in once cassette. /RUSTY:cc:darcy 01/22/23 TC: 5 CPT: 78542 x2, 91377 x2
[2023-01-21] MEDS: Lactated Ringers 1,000 ML 15 ML IV (09:16)
[2023-01-21] MEDS: Lidocaine 1% /Epi 1:100 (20ml) 20 ML Vial (10:00)
[2023-01-21] MEDS: Lactated Ringers 1,000 ML 60 ML IV ×2 (14:05→18:13)
--- NOTE | 2023-01-21 17:08 | PCM.HP.BLA ---
History and Physical Date of Admission: 01/21/23 HISTORY OF PRESENT ILLNESS Comes in today with no complaints.? She had some discomfort after her last expansion and it has improved.? She denies fever.? She is ready for the next stage in her breast reconstruction process.? Her initial surgery was on 04/11/22 where she underwent prophylactic mastectomy right breast and immediate right breast reconstruction with placement prepectoral cohesive gel implant (700 ml) and placement FlexHD acellular dermal matrix graft (23 x 26 cm) and mastopexy and right nipple reconstruction with placement of free nipple graft and prophylactic mastectomy left breast and immediate left breast reconstruction with placement prepectoral cohesive gel implant (700 ml) and placement FlexHD acellular dermal matrix graft (23 x 26 cm) and mastopexy and left nipple reconstruction with placement of free nipple graft.? Postop she developed wound breakdown at the Tzone area which exposed the implants. She returned to surgery on 05/30/22 where she underwent revision left breast reconstruction with excisional debridement nonhealing infected wound and removal exposed cohesive gel implant with capsulectomy and complex secondary wound closure and revision right breast reconstruction with excisional debridement nonhealing infected wound and removal cohesive gel implant with capsulectomy and complex secondary wound closure. Postop she had no healing issues. She returned to surgery on 10/03/22 where she underwent first stage revision right breast reconstruction with placement of submuscular saline tissue anchor tacker (650 ml) and placement MTF FlexHD acellular dermal matrix graft (23 x 26 cm) and first stage revision left breast reconstruction with placement of submuscular saline tissue anchor tacker (650 ml) and placement MTF FlexHD acellular dermal matrix graft (23 x 26 cm ). She tolerated the surgery and had no healing problems and also tolerated the saline tissue expansion.? We are ready for the next stage in the breast reconstruction process which is placement of cohesive gel implants, and it is scheduled for January 21, 2023. PAST MEDICAL HISTORY Acquired absence of bilateral breasts and nipples Cancer phobia Disproportion of reconstructed breast Exposed breast implant Failed skin graft Failure of flap graft Family history of breast cancer Former smoker Frequent headaches Gastric reflux Genetic 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 History of bilateral removal of breast implants Infection of breast implant Methicillin resistant Staphylococcus epidermidis infection Migraine headache Monoallelic mutation of DEISY gene Nonhealing surgical wound Pneumonia PONV (postoperative nausea and vomiting) Prophylactic breast removal Prophylactic ovary removal Ptosis of both breasts PAST SURGICAL HISTORY History of bilateral breast implants History of bilateral oophorectomy History of bladder surgery History of hysterectomy History of placement of ear tubes History of prophylactic mastectomy of both breasts History of reconstruction of both breasts Hx of bilateral mastectomy Status post bilateral breast reconstruction Status post bilateral mastectomy Status post implant removal from both breasts First stage revision right breast reconstruction with placement of submuscular saline tissue anchor tacker (650 ml) and placement MTF FlexHD acellular dermal matrix graft (23 x 26 cm) and first stage revision left breast reconstruction with placement of submuscular saline tissue anchor tacker (650 ml) and placement MTF FlexHD acellular dermal matrix graft (23 x 26 cm ) - 10/03/22 ALLERGIES Penicillins [PCN] MEDICATIONS ibuprofen omeprazole sumatriptan succinate valacyclovir fluconazole (Diflucan) FAMILY HISTORY Grandmother Breast cancerAunt Breast cancerFather Diabetes SOCIAL HISTORY Smoking Status: Former smoker alcohol intake: current substance use type: does not use REVIEW OF SYSTEMS General - Denies fever, fatigue, and weight loss. Eyes - Denies cataracts and glaucoma. ENT - Denies nasal congestion and sore throat. Endocrine - Denies excessive thirst and urination.? Has family history of breast cancer (Grandmother and Aunt).? She had genetic testing which showed an abnormal DEISY mutation.? Had hysterectomy and earlier this year, she had bilateral oophorectomy. Skin - Denies suspicious lesions and skin cancer. Musculoskeletal - Denies joint pain, joint stiffness, weakness of muscles and joints, back pain, and arthritis. Neuro - Has headaches. Cardiovascular - Denies chest pain, fatigue, and shortness of breath with exertion. Psych - Denies anxiety and depression. Respiratory - Denies chronic cough and shortness of breath.? Patient is a former smoker. Gastrointestinal - Denies nausea, vomiting, diarrhea.? Has constipation. Hematologic - Denies abnormal bruising and bleeding. Genitourinary - Denies hematuria and urinary frequency. PHYSICAL EXAMINATION General - Alert and Oriented.? Her bra size was 36 D before the mastectomies. HEENT - PERRL. EOMI.? Throat is clear. Neck - Supple and nontender.? No cervical adenopathy. Breasts - Her breast Tzone incisions are well healed. No vascular compromise noted on the breast skin flaps.? No clinical evidence of hematoma.? Nipple grafts are well healed. The expanders show good shape and contour and good breast symmetry. The expanders have caused asymmetry of the inframammary folds with the left one being more inferior as compared to the right. On the right breast, the nipple areolar complex has irregular borders from debridement of the eschar. The irregular borders can be revised with nipple reconstruction with skin grafting. Later on after healing of the skin graft, can proceed with further bilateral nipple reconstruction with intradermal nipple tattooing. On the lateral aspect of both breasts are excess mastectomy skin contour deformity. Lungs - Clear to auscultation. Heart - Regular rate and rhythm. Abdomen - Soft and nondistended. Extremities - FROM. No axillary adenopathy.? Radial pulses are palpable. Neuro - CN II-XII grossly intact. Psych - Normal mood and affect. ASSESSMENT 1.? 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 2.? Genetic susceptibility to breast cancer. 3.? Cancer phobia. 4.? Family history of breast cancer. 5.? History of prophylactic mastectomy bilateral breasts. 6.? Acquired absence bilateral breasts and nipples. 7. History of bilateral removal of breast implants. 8.? Disproportion reconstructed breasts with asymmetric inframammary folds. 9. Deformity reconstructed breasts with excess mastectomy skin contour deformity laterally. 10. Former smoker. 11. MRSE. PLAN Patient is ready to continue with the next stage in the bilateral breast reconstruction process which is removal of the submuscular saline tissue expanders with replacement cohesive gel implants and placement acellular dermal matrix grafts. Depending on the shape of the breast pockets, capsulotomies may be necessary. To improve the asymmetric inframammary folds, I will elevate and reinforce the inframammary folds with intracapsular plication. There is some excess mastectomy skin contour deformity laterally that will be excised in both breasts reconstruction. Depending on how long the surgery takes I may or may not have time to revise the right nipple reconstruction with skin grafting the areola to make it more symmetrical with the left nipple.? After healing has occurred, if there are coloration issues with the skin graft, then additional nipple reconstruction with intradermal tattooing can be done. The implants part of the procedure needs to take less than 6 hours in order to consider an additional elective procedure such as nipple reconstruction. If it takes more than 6 hours, then any additional procedures can be done at a later date. Surgeries that last longer than 6 hours have an increased risk of a complication, such as developing a blood clot. Surgery will be done under general anesthesia with a surgical observation overnight stay in the hospital. Patient was informed of the risks and complications of the procedure including alternatives to surgery.? These were discussed with the patient personally.? Patient voices understanding and wishes to proceed. Some of the risks and complications were included in a form from the [employer]. Potential risks and complications included but not inclusive of bleeding, infection, seroma, hematoma, bruising, swelling, prolonged need for drains, loss of sensation to skin, partial or complete loss of skin flap and/or nipple graft, wound breakdown, need for wound care, poor scarring, poor aesthetic outcome, intra operative cardiac or neurologic events, DVT, PE, and reaction to anesthesia. She had cultures done during her previous surgeries. They grew out MRSE and Enterococcus faecalis. Will treat her perioperatively with Vancomycin. She will have drains in for 10-14 days. She will be maintained on antibiotics until the drains are removed. Assessment & Plan Assessment/Plan (1) Monoallelic mutation of DEIYS gene: (2) Genetic 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: (3) Cancer phobia: (4) Family history of breast cancer: (5) History of prophylactic mastectomy of both breasts: (6) Acquired absence of bilateral breasts and nipples: (7) History of bilateral removal of breast implants: (8) Disproportion of reconstructed breast: (9) Deformity of reconstructed breast: (10) Former smoker: (11) Methicillin resistant Staphylococcus epidermidis infection:
--- NOTE | 2023-01-21 18:00 | OP.PCM_ITS ---
Problems Associated Problem List Diagnoses (1) Monoallelic mutation of DEISY gene: (2) Genetic 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: (3) Cancer phobia: (4) Family history of breast cancer: (5) Acquired absence of bilateral breasts and nipples: (6) History of prophylactic mastectomy of both breasts: (7) Disproportion of reconstructed breast: (8) Deformity of reconstructed breast: (9) Status post implant removal from both breasts: (10) Former smoker: (11) Methicillin resistant Staphylococcus epidermidis infection: (12) Resistance to other single specified antibiotic: Report of Operation Date of Procedure: 01/21/23 Pre-Operative Diagnosis: 1. 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 2. Genetic susceptibility to breast cancer. 3. Cancer phobia. 4. Family history of breast cancer. 5. History of prophylactic mastectomy bilateral breasts. 6. Acquired absence bilateral breasts and nipples. 7. History of bilateral removal of breast implants. 8. Disproportion reconstructed breasts with asymmetric inframammary folds. 9. Deformity reconstructed breasts with excess mastectomy skin contour deformity laterally. 10. Former smoker. 11. MRSE. Post-Operative Diagnosis: Same. Surgery/Procedure Performed:: 1. Left breast reconstruction with removal of saline tissue nature photographer with replacement cohesive gel implant (630 ml) and placement of MTF FlexHD acellular dermal matrix graft, (Pliable Shaped Perforated, Large, Thick, 13x22 cm, 2 pieces). 2. Revision reconstructed left breast with superior capsulotomy and excision excess mastectomy skin contour deformity laterally and revision asymmetric inframammary fold with internal capsular plication. 3. Right breast reconstruction with removal of saline tissue nature photographer with replacement cohesive gel implant (630 ml) and placement of MTF FlexHD acellular dermal matrix graft, (Pliable Shaped Perforated, Large, Thick, 13x22 cm, 2 pieces). 4. Revision reconstructed right breast with superior capsulotomy and excision excess mastectomy skin contour deformity laterally and revision asymmetric inframammary fold with internal capsular plication. Description of Surgical Findings:: Comes in today with no complaints.? She had some discomfort after her last expansion and it has improved.? She denies fever.? She is ready for the next stage in her breast reconstruction process.? Her initial surgery was on 04/11/22 where she underwent prophylactic mastectomy right breast and immediate right breast reconstruction with placement prepectoral cohesive gel implant (700 ml) and placement FlexHD acellular dermal matrix graft (23 x 26 cm) and mastopexy and right nipple reconstruction with placement of free nipple graft and prophylactic mastectomy left breast and immediate left breast reconstruction with placement prepectoral cohesive gel implant (700 ml) and placement FlexHD acellular dermal matrix graft (23 x 26 cm) and mastopexy and left nipple reconstruction with placement of free nipple graft.? Postop she developed wound breakdown at the Tzone area which exposed the implants. She returned to surgery on 05/30/22 where she underwent revision left breast reconstruction with excisional debridement nonhealing infected wound and removal exposed cohesive gel implant with capsulectomy and complex secondary wound closure and revision right breast reconstruction with excisional debridement nonhealing infected wound and removal cohesive gel implant with capsulectomy and complex secondary wound closure. Postop she had no healing issues. She returned to surgery on 10/03/22 where she underwent first stage revision right breast reconstruction with placement of submuscular saline tissue nature photographer (650 ml) and placement MTF FlexHD acellular dermal matrix graft (23 x 26 cm) and first stage revision left breast reconstruction with placement of submuscular saline tissue nature photographer (650 ml) and placement MTF FlexHD acellular dermal matrix graft (23 x 26 cm ). She tolerated the surgery and had no healing problems and also tolerated the saline tissue expansion.? We are ready for the next stage in the breast reconstruction process which is placement of cohesive gel implants and placement of MTF FlexHD acellular dermal matrix grafts. Patient was informed of the risks and complications of the procedure including alternatives to surgery. These were discussed with the patient personally. Pa tient voices understanding and wishes to proceed. Some of the risks and complications were included in a form from the [employer]. Potential risks and complications included but not inclusive of bleeding, infection, seroma, hematoma, bruising, swelling, prolonged need for drains, loss of sensation to skin, partial or complete loss of skin flap and/or nipple graft, wound breakdown, need for wound care, poor scarring, poor aesthetic outcome, intra operative cardiac or neurologic events, DVT, PE, and reaction to anesthesia. IV Fluids - 2800 ml Urine Output - 1000 ml I used [place] MemoryGel BOOST Breast Implants, Moderate Plus Profile, (630 ml in each breast). Catalog Number - [id number]. Lot Number - [id number]. Serial Number - [id number]. Device ID Number - [id number]. Expiration - November 02, 2027, (Left Breast). Catalog Number - [id number]. Lot Number - [id number]. Serial Number - [id number]. Device ID Number - [id number]. Expiration - November 02, 2027, (Right Breast). I used MTF FlexHD Pliable Shaped Perforated, Large, Thick, (13x22 cm , 2 pieces in each breast). Catalog Number - [id number]. Serial Number - [id number]. Expiration - July 01, 2025, (Left Breast). Catalog Number - [id number]. Serial Number - [id number]. Expiration - July 02, 2025, (Left Breast). Catalog Number - [id number]. Serial Number - [id number]. Expiration - August 22, 2025, (Right Breast). Catalog Number - [id number]. Serial Number - [id number]. Expiration - July 23, 2025, (Right Breast). I used Maryana absorbable hemostat, (I used 4 vials, 2 in each breast). Reference Number - [id number]. Lot Number - [id number]. Device ID Number - [id number]. Expiration - July 12, 2027. Surgeon: Jarret Barrett MD paper and prints restorer: Ritesh Gambino RNFA paper and prints restorer: Mirza Lanza RNFA Type of Anesthesia: General Anesthesiologist: Giancarlo Reece MD and Maisha Corea CRNA Specimen's removed: 1. Tissue nature photographer left breast to Pathology. 2. Tissue nature photographer right breast to Pathology. 3. Left breast tissue and capsule to Pathology and Microbiology. 4. Right breast tissue and capsule to Pathology and Microbiology. Drains: Anjel x2 (one in each breast). Estimated Blood Loss (mL): 50. Fluids Replaced: 3800 ml (IV Fluids 2800 ml, Urine Output 1000 ml). Description of Procedure: In the preop area, the patient was marked. The inframammary folds were marked with the left breast being a little lower. I marked out the lateral aspect of the breast pocket, the superior aspect, and the medial aspect. I also marked out some excess mastectomy skin contour deformity laterally in both breasts. Patient was then taken to OR in supine position and was placed under general anesthesia. The breasts were prepped and draped in the usual fashion. Ioban draping was also used. SCD's were placed for DVT prophylaxis. Perioperative antibiotics were given intravenously. Using xylocaine with epinephrine, the horizontal breast incisions were infiltrated. After waiting 5 minutes for the anesthetic to take effect, I first started on the left breast and then went to the right breast. I made an incision through the previous horizontal incision down into the subcutaneous tissue until the breast capsule was seen. A capsulotomy was performed and the saline tissue nature photographer was removed. No abnormal fluid was seen in the breast pocket. I then made an incision on the right breast through the previous horizontal incision down into the subcutaneous tissue until the breast capsule was seen. A capsulotomy was performed and the saline tissue nature photographer was removed. No abnormal fluid was seen in the breast pocket. I then placed sizers into each breast to see what would be the best shape and contour without putting too much tension on the incision. I placed a 750 ml sizer and I closed the incision temporarily with 3-0 Vicryl running suture. I sat the patient up and it looked to tight as there was blanching on the breast skin flap. I then removed that sizer and went with smaller sizes until I got to 630 ml. When I sat the patient up there was good breast shape and contour without too much tension. I did notice that there was a cutoff superiorly so I made a superior capsulotomy to improve that contour to make it look more natural. Also when I sat the patient up I noticed the nipples were higher than usual. In order to lower the nipple grafts placement, I improved the asymmetry of the inframammary folds with the left fold increasing by 1 cm and the right fold increasing by 0.6 mm. This was done with internal capsular plication using 2-0 Vicryl figure of eight interrupted sutures. When I sat the patient back up with the [address] and the inframammary folds improved, the nipples were now located in a good position looking straight ahead. While in the sitting position, the excess mastectomy skin contour deformity laterally was still present. I was hoping that the placement of the implants would smooth out that contour deformity laterally. After placing the patient supine, I made elliptical incisions laterally to excise the excess mastectomy skin. In the capsular tissue, I made zig zags to give more stretch to the breast pocket. The capsular tissue removed along with the breast tissue was sent to Pathology as well as to Microbiology. The sizers were then removed. I irrigated both breast pockets with Irrisept 0.05% chlorhexidine and then followed with saline irrigation. I placed a size 15 Anjel drain through separate stab incisions laterally and secured to the skin with 3-0 Nylon purse string suture. I then sprayed Maryana absorbable hemostat into each breast to minimize seroma formation. (i used 2 vials in each breast). I then took out MTF FlexHD acellular dermal matrix graft size 13x22 cm. I used 2 pieces for each breast. I sutured them together and then placed the [place] Me moryGel Boost Breast Implant, moderate plus profile on top of the FlexHD. I made a pursestring suture using 3-0 Monocryl suture to secure the graft onto the implant. I placed the implant and graft into Betadine and then placed them into each breast pocket. I then closed the breasts in a layered fashion with 3-0 Vicryl interrupted sutures for the capsular layer. I placed 3-0 Monocryl suture into the deep dermis and subcutaneous tissue. The skin was approximated with 3- 0 V lock unidirectional barbed running subcuticular suture. Histoacryl skin tissue adhesive was applied followed by Kerlix gauze and a compression surgical bra. I used moderate plus profile breast implants because the high profile and ultra high profile implants would have put too much tension on the skin envelope and the suture line. Patient tolerated the procedure well and was sent to PACU in satisfactory condition. Patient will be sent upstairs for continued postop care. She will be discharged when she is steady on her feet with ambulation and also tolerating po analgesia. She will be discharged with the drains in place for 10-14 days. Grafts/Implants Used: [place] MemoryGel implants x2, MTF FlexHD acellular dermal grafts x4, Maryana Procedure Start Time: 10:00 Procedure Stop Time: 14:49 Complications None. Admit VTE Documentation VTE Present on Admission: No VTE Mechan Device Prophylaxis: SCD's VTE Pharm Prophylaxis ordered?: Yes Addendum Addendum: Surgery Charges CPT - 64164-55 ICD-10 - Z15.89, Z15.01, F40.298, Z80.3, Z90.13, N65.1, N65.0, Z98.86, Z87.891, A49.8, Z16.29 53208 Z15.89, Z15.01, F40.298, Z80.3, Z90.13, N65.1, N65.0, Z98.86, Z87.891, A49.8, Z16.29 [id number] Z15.89, Z15.01, F40.298, Z80.3, Z90.13, N65.1, N65.0, Z98.86, Z87.891, A49.8, Z16.29 51822 Z15.89, Z15.01, F40.298, Z80.3, Z90.13, N65.1, N65.0, Z98.86, Z87.891, A49.8, Z16.29 13303 Z15.89, Z15.01, F40.298, Z80.3, Z90.13, N65.1, N65.0, Z98.86, Z87.891, A49.8, Z16.29 72418 Z15.89, Z15.01, F40.298, Z80.3, Z90.13, N65.1, N65.0, Z98.86, Z87.891, A49.8, Z16.29
[2023-01-21] MEDS: Gabapentin 100 MG Capsule 200 MG PO (18:08)
[2023-01-21] MEDS: oxyCODONE 5 MG Tablet 10 MG PO ×2 (18:08→23:27)
[2023-01-21] MEDS: Ensure Surgery 237 ML LIQUID PO (18:08)
[2023-01-21] MEDS: Ondansetron 4 MG/2 ML Vial IV (18:47)
[2023-01-21 19:25] LABS: Anion Gap 7 (5-15); BUN 12 mg/dL (7-18); Calcium,Total 8.6 mg/dL (8.5-10.1); Chloride 105 mmol/L (98-107); EST Glomerular Filtration Rate 63 mL/min (>60); Est Glom Filt Rate - Afr Amer 76 mL/min (>60); Estimated Creatinine Clearance 63.71 ml/min; Glucose 217 mg/dL (74-106); Potassium 4.7 mmol/L (3.5-5.1); Sodium Level 137 mmol/L (136-145)
--- NOTE | 2023-01-21 19:58 | PCM.RX.CS ---
Consult Antibiotic Management Pharmacy has been consulted to manage selected antiobiotic: Vancomycin Type of Intervention Type of Consult: New start Suspected Infection Suspected Infection: Other Labs Labs: Sodium 137 mmol/L (136-145) 01/21/23 18:45 Potassium 4.7 mmol/L (3.5-5.1) 01/21/23 18:45 Chloride 105 mmol/L (98-107) 01/21/23 18:45 Carbon Dioxide 25.0 mmol/L (21.0-32.0) 01/21/23 18:45 Anion Gap 7 (5-15) 01/21/23 18:45 BUN 12 mg/dL (7-18) 01/21/23 18:45 Creatinine 1.00 mg/dL (0.55-1.02) 01/21/23 18:45 Est GFR (MDRD) Af Amer 76 mL/min (>60) 01/21/23 18:45 Est GFR (MDRD) Non-Af 63 mL/min (>60) 01/21/23 18:45 BUN/Creatinine Ratio 12.0 RATIO (10-20) 01/21/23 18:45 Glucose 217 mg/dL (74-106) H 01/21/23 18:45 Goal Trough Goal Trough: 10-15 mcg/mL Pharmacy Plan for Drug Dosing Pharmacy Plan for Drug Dosing: IV VANCOMYCIN Consulting Physician: Dr. Barrett Indication: post-op Goal Trough: 10-15 SrCr: 1 CrCl: 64 mL/min Comments: Patient had pre-op dose of 1250mg IV x1 on 01/21/23 @0646 Vancomycin Dose: 750mg IV Q12hr to start 01/21/23 @2000 (Note: second dose delayed d/t waiting on SCr labs to result to determine frequency) Pending Level: 01/22/23 @1930, prior to 4th total dose of vancomycin per protocol Pharmacy Service will continue to monitor and adjust dosing as required.
[2023-01-21] MEDS: HYDROmorphone 1 MG/ML Syringe IV (20:12)
[2023-01-21] MEDS: Vancomycin HCl 750 MG in 0.9% Normal Saline (250mL Bag) 250 ML 250 MG IV (20:28)
[2023-01-21] MEDS: proMETHazine 25 MG/ML Syringe 12.5 MG IM (20:28)
[2023-01-21] MEDS: Acyclovir 200 MG Capsule 400 MG PO (23:27)
[2023-01-21] MEDS: Docusate Sodium 100 MG Capsule PO (23:28)
[2023-01-21] MEDS: Heparin Injection (Vial) 5,000 UNIT/ML VIAL 5000 UNIT SC (23:28)
[2023-01-22] VITALS (8 sets, daily range): BP systolic 98–126; BP diastolic 49–67; PULSE 51–87; RESP 16–18; TEMP 36.6–37.1; O2SAT 92–97
--- NOTE | 2023-01-22 00:32 | CPS ---
Patient unable to perform IS/PEP at this time due to upset stomach
[2023-01-22] MEDS: Acetaminophen 500 MG Tablet 1000 MG PO ×4 (06:00→23:20)
[2023-01-22] MEDS: oxyCODONE 5 MG Tablet 10 MG PO ×4 (06:00→20:17)
[2023-01-22 07:56] LABS: Hematocrit 36.9 % (37-47); Hemoglobin 11.7 g/dL (12.0-15.0); Mean Corp Hgb Conc 31.7 g/dL (32-36); Mean Corpuscular Hgb 31.4 pg (27.0-32.0); Mean Corpuscular Volume 98.9 fL (81-99); Mean Platelet Vol. 11.2 fl (6.2-12.0); Platelet Count 193 K/mm3 (150-450); RBC Distribution Width CV 12.9 % (11.6-14.6); RBC Distribution Width SD 46.1 fl (35.1-43.9); Red Blood Count 3.73 M/mm3 (4.2-5.4); White Blood Count 11.6 K/mm3 (4.4-11.0)
[2023-01-22] MEDS: Ensure Surgery 237 ML LIQUID PO ×3 (08:31→17:21)
[2023-01-22] MEDS: Gabapentin 100 MG Capsule 200 MG PO ×3 (08:31→17:21)
[2023-01-22] MEDS: Vancomycin HCl 750 MG in 0.9% Normal Saline (250mL Bag) 250 ML 250 MG IV (08:31)
[2023-01-22 08:40] LABS: Anion Gap 6 (5-15); BUN 14 mg/dL (7-18); BUN/Creat Ratio 18.2 RATIO (10-20); Calcium,Total 8.7 mg/dL (8.5-10.1); Chloride 105 mmol/L (98-107); Creatinine, Serum 0.77 mg/dL (0.55-1.02); EST Glomerular Filtration Rate 85 mL/min (>60); Est Glom Filt Rate - Afr Amer 102 mL/min (>60); Estimated Creatinine Clearance 82.74 ml/min; Glucose 130 mg/dL (74-106); Potassium 3.9 mmol/L (3.5-5.1); Prealbumin 20.8 mg/dL (20.0-40.0); Sodium Level 139 mmol/L (136-145)
[2023-01-22] MEDS: Acyclovir 200 MG Capsule 400 MG PO ×2 (09:48→20:39)
[2023-01-22] MEDS: Heparin Injection (Vial) 5,000 UNIT/ML VIAL 5000 UNIT SC ×2 (09:49→20:39)
[2023-01-22] MEDS: Pantoprazole Sodium 40 MG Tablet PO (09:49)
[2023-01-22] MEDS: Docusate Sodium 100 MG Capsule PO ×2 (09:49→20:39)
--- NOTE | 2023-01-22 12:20 | PCM.PN.SRG ---
Subjective Subjective Postop #1 Patient sitting in chair. She states her pain is being controlled. Objective Data Objective Data Vital Signs: Vital Signs Temp Pulse Resp BP Pulse Ox O2 Del Method O2 Flow Rate 98.7 F 87 16 126/67 H 94 Room Air 2 01/22/23 20:16 01/22/23 20:16 01/22/23 20:16 01/22/23 20:16 01/22/23 20:16 01/22/23 20:20 01/22/23 01:51 Oxygen Flow Rate (L/min) 2 Oxygen Delivery Method Room Air Weight: 178 lb 9.191 oz Body Mass Index (BMI) 28.8 Intake & Output: Intake and Output for Last 24 Hours 01/20/23 01/21/23 01/22/23 23:59 23:59 23:59 Intake Total 3940 / 3940 1315 / 1315 Output Total 1974 1665 / 1665 Balance 1964 / 1964 -350 / -350 Lab / Micro Data Attestation: I reviewed the patient's lab results. 01/22/23 07:10 01/22/23 07:10 Labs: Laboratory Results - last 24 hr 01/22/23 07:10: WBC 11.6 H, RBC 3.73 L, Hgb 11.7 L, Hct 36.9 L, MCV 98.9, MCH 31.4, MCHC 31.7 L, RDW Std Deviation 46.1 H, RDW Coeff of Khushi 12.9, Plt Count 193, MPV 11.2, Sodium 139, Potassium 3.9, Chloride 105, Carbon Dioxide 28.0, Anion Gap 6, BUN 14, Creatinine 0.77, Estim Creat Clear Calc 82.74, Est GFR (MDRD) Af Amer 102, Est GFR (MDRD) Non-Af 85, BUN/Creatinine Ratio 18.2, Glucose 130 H, Calcium 8.7, Prealbumin 20.8 01/22/23 19:22: Vancomycin Trough 8.0 Micro: Microbiology 01/21/23 11:21 Tissue - Breast Gram Stain - Final 01/21/23 11:21 Tissue - Breast Wound Culture - Preliminary No growth-Final to follow 01/21/23 11:17 Tissue - Breast Gram Stain - Final 01/21/23 11:17 Tissue - Breast Wound Culture - Preliminary No growth-Final to follow Physical Exam Const alert, oriented x3 and no apparent distress Constitutional Narrative: Patient sitting up in chair. General Appearance: cooperative HEENT normocephalic Head and Scalp: atraumatic Eyes General Eye: normal appearance of both eyes Resp normal respiratory effort and normal air movement Effort and Inspection: able to speak in complete sentences Cardio regular rate GI soft to palpation and non-tender Back/Spine normal ROM Extremity normal capillary refill Skin Skin Narrative: Operative dressing removed. Incisions dry and intact. Breasts are soft and symmetrical. Good breast contour. Nipples viable. Anjel drains with minimal drainage present. Neuro oriented x3 Psych mental status grossly normal, thought process normal and cooperative Assessment & Plan Assessment/Plan (1) Status post bilateral mastectomy: (2) Status post bilateral breast reconstruction: (3) Disproportion of reconstructed breast: (4) Acquired absence of bilateral breasts and nipples: (5) Genetic 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: (6) History of reconstruction of both breasts: (7) History of bilateral removal of breast implants: (8) Resistance to other single specified antibiotic: (9) Infection of breast implant: PLAN: Plan Patient is sitting up in chair. She states her pain has been fairly controlled. Operative dressing removed. Incisions dry and intact. Breasts are soft and symmetrical. Good breast contour. Nipples viable. No redness, minimal bruising. Anjel drains with minimal drainage present. Placed dry dressing over incisions and applied double 6 inch anai wrap for compression. Anjel drains have had minimal drainage present. She is receiving IV Vancomycin. Pharmacy consulted to dose. She has a history of infected implant that needed to be removed. Will monitor her closely. Hgb 11.7. Will recheck in the morning due to her history of anemia. Prealbumin 20.8. Encouraged increase protein intake with supplementation to help with wound healing. Remove her White today. Encourage her to ambulate and to use incentive spirometer. Will plan on her being discharged tomorrow.
[2023-01-22] MEDS: 0.9% Saline Lock 10 ML Syringe IV (15:35)
[2023-01-22] MEDS: Rizatriptan Benzoate 10 MG Tablet PO (17:21)
--- NOTE | 2023-01-22 20:28 | PCM.RX.CS ---
Consult Antibiotic Management Pharmacy has been consulted to manage selected antiobiotic: Vancomycin Type of Intervention Type of Consult: Follow-up Suspected Infection Suspected Infection: Other (WOUND INFECTION) Prior Doses of Antibiotics Prior Doses of Antibiotics Received/Current Regimen: vancomycin 750 mg IV given 01/21 @ 2027, and 01/22 @ 830 Labs Labs: Sodium 139 mmol/L (136-145) 01/22/23 07:10 Potassium 3.9 mmol/L (3.5-5.1) 01/22/23 07:10 Chloride 105 mmol/L (98-107) 01/22/23 07:10 Carbon Dioxide 28.0 mmol/L (21.0-32.0) 01/22/23 07:10 Anion Gap 6 (5-15) 01/22/23 07:10 BUN 14 mg/dL (7-18) 01/22/23 07:10 Creatinine 0.77 mg/dL (0.55-1.02) 01/22/23 07:10 Est GFR (MDRD) Af Amer 102 mL/min (>60) 01/22/23 07:10 Est GFR (MDRD) Non-Af 85 mL/min (>60) 01/22/23 07:10 BUN/Creatinine Ratio 18.2 RATIO (10-20) 01/22/23 07:10 Glucose 130 mg/dL (74-106) H 01/22/23 07:10 Vancomycin Trough 8.0 ug/mL (5.0-15.0) 01/22/23 19:22 Microbiology Microbiology: Microbiology 01/21/23 11:21 Tissue - Breast Gram Stain - Final 01/21/23 11:21 Tissue - Breast Wound Culture - Preliminary No growth-Final to follow 01/21/23 11:17 Tissue - Breast Gram Stain - Final 01/21/23 11:17 Tissue - Breast Wound Culture - Preliminary No growth-Final to follow Dosing Weight Weight used for dosin lb 9.191 oz Estimated Creatinine Clearance Estimated Creatinine Clearance: ~83 Goal Trough Goal Trough: 10-15 mcg/mL Pharmacy Plan for Drug Dosing Pharmacy Plan for Drug Dosing: Vancomycin trough = 8.0, will increase to 1250 mg IV Q12H with a trough prior to the 4th dose Pharmacy Service will continue to monitor and adjust dosing as required. Follow-Up Labs Follow-Up Labs: Trough: Vancomycin Date/Time Labs Ordered Labs to be done on [date and time ordered]: 01/24/23 @ 1681
[2023-01-22] MEDS: Vancomycin HCl 1,250 MG in 0.9% Normal Saline (250mL Bag) 250 ML 167 MG IV (20:38)
[2023-01-23 04:26] VITALS: BP 110/58; PULSE 72; RESP 18; TEMP 36.8; O2SAT 94
[2023-01-23] MEDS: oxyCODONE 5 MG Tablet 10 MG PO (04:34)
[2023-01-23 05:08] LABS: Hemoglobin 11.5 g/dL (12.0-15.0); Mean Corp Hgb Conc 31.1 g/dL (32-36); Mean Corpuscular Hgb 31.3 pg (27.0-32.0); Mean Corpuscular Volume 100.5 fL (81-99); Mean Platelet Vol. 11.3 fl (6.2-12.0); Platelet Count 189 K/mm3 (150-450); RBC Distribution Width CV 12.9 % (11.6-14.6); RBC Distribution Width SD 47.8 fl (35.1-43.9); Red Blood Count 3.68 M/mm3 (4.2-5.4); White Blood Count 9.3 K/mm3 (4.4-11.0)
[2023-01-23 05:30] LABS: Anion Gap 5 (5-15); BUN 15 mg/dL (7-18); Calcium,Total 8.4 mg/dL (8.5-10.1); Chloride 106 mmol/L (98-107); Creatinine, Serum 0.75 mg/dL (0.55-1.02); EST Glomerular Filtration Rate 87 mL/min (>60); Est Glom Filt Rate - Afr Amer 105 mL/min (>60); Estimated Creatinine Clearance 84.94 ml/min; Glucose 114 mg/dL (74-106); Potassium 4.1 mmol/L (3.5-5.1); Sodium Level 141 mmol/L (136-145)
[2023-01-23] MEDS: Acetaminophen 500 MG Tablet 1000 MG PO ×2 (06:13→12:55)
[2023-01-23] MEDS: Heparin Injection (Vial) 5,000 UNIT/ML VIAL 5000 UNIT SC (08:05)
[2023-01-23] MEDS: Pantoprazole Sodium 40 MG Tablet PO (08:05)
[2023-01-23] MEDS: Gabapentin 100 MG Capsule 200 MG PO ×2 (08:05→12:56)
[2023-01-23] MEDS: Acyclovir 200 MG Capsule 400 MG PO (08:05)
[2023-01-23] MEDS: Rizatriptan Benzoate 10 MG Tablet PO (08:05)
[2023-01-23] MEDS: Docusate Sodium 100 MG Capsule PO (08:05)
[2023-01-23 08:15] VITALS: BP 114/60; PULSE 80; RESP 16; TEMP 36.6; O2SAT 93
[2023-01-23] MEDS: Vancomycin HCl 1,250 MG in 0.9% Normal Saline (250mL Bag) 250 ML 167 MG IV (08:28)
[2023-01-23] MEDS: 0.9% Saline Lock 10 ML Syringe IV (08:29)
--- NOTE | 2023-01-23 13:17 | PCM.DC ---
Discharge Instructions Diet Discharge Diet: No restrictions (encouraged increase protein intake and supplementation for wound healing.) Activity Discharge Activity: May Not Shower Lifting Restrictions: 10-15 lb weight lifting restriction. No repeatative arm movement/lifting. Dressing / Incision Call your doctor if your incision/area has: Continuous Slow Oozing, Sudden Increased Bleeding, Increased Pain/ Swelling, Increased Redness, Foul Smelling Discharge and Swelling at the incision site Call your doctor if you observe: Fever of 101 or Higher, Coldness, Increased Pain, Inability to urinate, Inability to have a bowel movement, Shortness of breath, Chest pain, Calf discomfort and Uncontrolled pain Change Dressing in: leave in place till F/U Drain: Suction Additional Dressing/Incision Instructions:: Keep dressing dry and intact. Change only if needed. Keep track of Anjel drainage amount and bring with you to your follow up. Follow Up Care Please Follow Up With: Jarret Barrett MD When: [facility] will call you Thursday to set up your appointment on Thursday. If you have any questions call [phone] Test Results: Test results from this visit will be discussed in further detail at your follow-up appointment, if applicable. Discharge Plan Admission Admit Date/Time: 01/21/23 16:10 Attending Provider: Jarret Barrett Primary Care Provider: Amanda Hyatt Discharge Orders/Prescriptions Prescriptions: New docusate sodium 100 mg Capsule 100 mg PO DAILY PRN PRN (Reason: constipation) 30 Days Qty: 30 0RF levofloxacin 500 mg tablet 500 mg PO DAILY 14 Days Qty: 14 0RF oxycodone-acetaminophen [Percocet] 5-325 mg tablet 1 tab PO Q6H PRN (Reason: pain (scale score 7-10)) 7 Days Qty: 28 0RF ondansetron 4 mg tablet,disintegrating 4 mg PO Q8H PRN (Reason: nausea and vomiting) 5 Days Qty: 10 0RF Continued diazepam [Valium] 5 mg tablet 5 mg PO BID PRN (Reason: spasm) Qty: 14 0RF ibuprofen 800 mg tablet 800 mg PO Q12H PRN PRN (Reason: Migraine Headache) Hold Instructions: Resume on 10/08/22. Patient Comments: TAKE 1 TABLET BY MOUTH THREE TIMES A DAY NEEDED sumatriptan succinate 100 mg tablet 100 mg PO PRN PRN (Reason: MIGRAINE) Patient Comments: TAKE 1 TABLET FOR MIGRAINE RELIEF. MAY REPEAT 2 HOURS LATER. MAXIMUM 200MG/DAY. valacyclovir 500 mg tablet 500 mg PO DAILY Patient Comments: TAKE 1 TABLET BY MOUTH EVERY DAY omeprazole 40 mg capsule,delayed release(DR/EC) 40 mg PO DAILY Patient Comments: TAKE 1 CAPSULE BY MOUTH EVERY DAY Referrals / Follow Up: Amanda Hyatt MD [Primary Care Provider] - Disposition Disposition (needs filled in before D/C Order can be placed): Home, Self Care
--- NOTE | 2023-01-23 14:29 | PCM.PN.SRG ---
Subjective Subjective Postop #2 Patient is complaining of a headache. She states incisional discomfort is manageable. Objective Data Objective Data Vital Signs: Vital Signs Temp Pulse Resp BP Pulse Ox O2 Del Method O2 Flow Rate 98 F 80 16 114/60 93 Room Air 2 01/23/23 08:15 01/23/23 08:15 01/23/23 08:15 01/23/23 08:15 01/23/23 08:15 01/23/23 08:15 01/22/23 01:51 Oxygen Flow Rate (L/min) 2 Oxygen Delivery Method Room Air Weight: 178 lb 9.191 oz Body Mass Index (BMI) 28.8 Intake & Output: Intake and Output for Last 24 Hours 01/21/23 01/22/23 01/23/23 23:59 23:59 23:59 Intake Total 3940 / 3940 3190 / 3190 975.00 / 975.00 Output Total 1974 / 1974 1665 / 1665 116 / 116 Balance 1964 / 1964 1525 / 1525 859.00 / 859.00 Left Anjel drain 48 ml Right Anjel drain 75 ml Lab / Micro Data Attestation: I reviewed the patient's lab results. 01/23/23 04:35 01/23/23 04:35 Labs: Laboratory Results - last 24 hr 01/22/23 19:22: Vancomycin Trough 8.0 01/23/23 04:35: WBC 9.3, RBC 3.68 L, Hgb 11.5 L, Hct 37.0, MCV 100.5 H, MCH 31.3, MCHC 31.1 L, RDW Std Deviation 47.8 H, RDW Coeff of Khushi 12.9, Plt Count 189, MPV 11.3, Sodium 141, Potassium 4.1, Chloride 106, Carbon Dioxide 30.0, Anion Gap 5, BUN 15, Creatinine 0.75, Estim Creat Clear Calc 84.94, Est GFR (MDRD) Af Amer 105, Est GFR (MDRD) Non-Af 87, BUN/Creatinine Ratio 20.0, Glucose 114 H, Calcium 8.4 L Micro: Microbiology 01/21/23 11:17 Tissue - Breast Gram Stain - Final 01/21/23 11:17 Tissue - Breast Wound Culture - Preliminary No growth-Final to follow 01/21/23 11:17 Tissue - Breast Anaerobic Culture - Preliminary No growth in 48 hours. 01/21/23 11:21 Tissue - Breast Gram Stain - Final 01/21/23 11:21 Tissue - Breast Wound Culture - Preliminary No growth-Final to follow 01/21/23 11:21 Tissue - Breast Anaerobic Culture - Preliminary No growth in 48 hours. Physical Exam Const alert, oriented x3 and no apparent distress Constitutional Narrative: Patient sitting up in chair. General Appearance: cooperative HEENT normocephalic Head and Scalp: atraumatic Eyes General Eye: normal appearance of both eyes Resp normal respiratory effort and normal air movement Effort and Inspection: able to speak in complete sentences Cardio regular rate GI soft to palpation and non-tender Back/Spine normal ROM Extremity normal capillary refill Skin Skin Narrative: Dressing dry and intact. Anjel drains draining serosanguineous drainage. Neuro oriented x3 Psych mental status grossly normal, thought process normal and cooperative Assessment & Plan Assessment/Plan (1) Status post bilateral mastectomy: (2) Status post bilateral breast reconstruction: (3) Disproportion of reconstructed breast: (4) Acquired absence of bilateral breasts and nipples: (5) Genetic 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: (6) History of reconstruction of both breasts: (7) History of bilateral removal of breast implants: (8) Resistance to other single specified antibiotic: (9) Infection of breast implant: PLAN: Plan She states her incisional pain is controlled. She is complaining of a headache/migraine. Dressing dry and intact. DORENE wrap for compression. Anjel drains have a small amount of serosanguineous drainage. She is receiving IV Vancomycin. Upon discharge will send her home on Levaquin until her drains are removed. Hgb 11.5, is stable. Prealbumin 20.8. Encouraged increase protein intake with supplementation to help with wound healing. She is voiding without difficulty since the White catheter was removed. She states she has had some nausea, and has not had a BM yet. Will discharge her home with Percocet (28 tabs) for pain. PDMP reviewed. Zofran prn for nausea. Colace prn for constipation. She will follow up on Thursday in our office for follow up.
--- NOTE | 2023-01-23 15:04 | CASEMGMT ---
RASHID CM into pt room, pt sitting up in chair. Pt denies any issues going home with drains or in general. Pt states she has done this three times. Pt denies any homegoing needs and is ready for dc.
[2023-01-23 15:27] VITALS: BP 120/54; PULSE 80; RESP 16; TEMP 36.6; O2SAT 94
--- NOTE | 2023-01-23 15:32 | PHA.DC.MC.R ---
Pharmacy [facility] Pharmacy Service has performed discharge medication reconciliation and counseling for this patient. The patient's discharge medication list was reviewed for discrepancies and discrepancies were resolved. The patient was counseled on the following discharge medications and changes in medications for homegoing were reviewed. The Reason for Use, instructions for use, and potential side effects were reviewed for all new medications. The patient's questions regarding all of their medications were answered. 1. Docusate 100 mg PO daily PRN constipation 2. Levofloxacin 500 mg PO daily X 14 days 3. Ondansetron 4 mg Q8H PRN N/V 4. Oxycodone/acetaminophen 5/325 Q6H PRN pain 7-10 The patient was able to verbally demonstrate an understanding of their discharge medications. The patient was counselled on new medications by pharmacy technician instructor Hunter. Medications at Discharge Home Medications ibuprofen 800 mg tablet 800 mg PO Q12H PRN PRN Migraine Headache 03/28/22 omeprazole 40 mg capsule,delayed release 40 mg PO DAILY 03/28/22 sumatriptan succinate 100 mg tablet 100 mg PO PRN PRN MIGRAINE 03/28/22 valacyclovir 500 mg tablet 500 mg PO DAILY 03/28/22 diazepam 5 mg tablet (Valium) 5 mg PO BID PRN spasm #14 tabs 12/25/22 docusate sodium 100 mg capsule 100 mg PO DAILY PRN PRN constipation 30 days #30 caps 01/23/23 levofloxacin 500 mg tablet 500 mg PO DAILY 14 days #14 tabs 01/23/23 ondansetron 4 mg disintegrating tablet 4 mg PO Q8H PRN nausea and vomiting 5 days #10 tabs 01/23/23 oxycodone-acetaminophen 5 mg-325 mg tablet (Percocet) 1 tab PO Q6H PRN pain (scale score 7-10) 7 days #28 tabs 01/23/23
== END 2023-01-23 16:30 | disposition home or self-care (01) ==
LOC: SDC 17:04 → MS3 17:04
PROVIDERS: Nurse Practitioner Family; Admitting Provider Surgery; PCP Family Medicine; Referring Provider Surgery; Visit Provider Surgery
PROC: (CPT 19371; principal; 2023-01-21 07:45)
DX: N65.0 Deformity of reconstructed breast (principal); Z87.891 Personal history of nicotine dependence; Z90.13 Acquired absence of bilateral breasts and nipples; Z15.01 Genetic susceptibility to malignant neoplasm of breast; Z15.89 Genetic susceptibility to other disease; F40.298 Other specified phobia; N65.1 Disproportion of reconstructed breast; Z86.19 Personal history of other infectious and parasitic diseases; K21.9 Gastro-esophageal reflux disease without esophagitis; Z79.899 Other long term (current) drug therapy
CPT/HCPCS: 19380; 15777; 11970; 00402; 36415; 80048; 80202; 82962; 83735; 84134; 85027; 87070; 87075; 87102; 87205; 87206; 88300; 88305; 94762; 96365; 96366; 96372; 96375; 99221; J7050; J7120; A4216; G0378; J2405; J3475; Q9968

== ENCOUNTER → 2024-01-04 | Outpatient (CLI) | payer BC, SELFPAY ==
--- NOTE | 2024-01-04 07:05 | CT_ITS ---
INDICATION: MAKENNA procedure for Abdominal wall perforators EXAMINATION: CTA abdomen and pelvis - TECHNIQUE: Routine abdominal CT angiogram protocol was performed with IV contrast. MIP images provided. The protocol utilizes one or more of the following dose reduction techniques: automated exposure control, adjustment of mA and/or kV according to patient size,and/or use of iterative reconstruction technique. IV Contrast dosage and agent: 100 cc of Isovue-370 RADIATION DOSAGE (If Supplied By Facility): CTDIvol = ( 30.9 ) mGy, DLP = ( 954.91 ) mGycm COMPARISON: No relevant prior comparison study available FINDINGS: Lung bases: Partially visualized bilateral breast implants. Lower lungs are essentially clear. Liver: Prominent right lobe of the liver could be due to hepatomegaly or Lauryn''s lobe. Simple cyst in the left lobe of the liver measuring about 3.2 cm. Smaller cyst in the right lobe. Gallbladder: No evidence of gallstones. Spleen: Heterogeneously enhancing due to arterial phase of scanning. No splenomegaly. Adrenal gland: Normal. Kidneys: Unremarkable. No hydronephrosis or stone formation. Pancreas:Unremarkable. Bowel gas pattern: Normal caliber small bowel loops. Fecal retention. Unremarkable appendix. No evidence of acute diverticulitis. Peritoneum/retroperitoneum: No evidence of free air free fluid. Pelvis: Pelvic organs: Absent uterus consistent with previous hysterectomy. Bone survey: No aggressive bony lesions. No acute fractures. Degenerative changes at the level of L5-S1 Adenopathy: No significant pathologic adenopathy detected. Vascular: Unremarkable abdominal aorta without evidence of aneurysm. Patent celiac axis, SMA, bilateral renal arteries, SAMRA and bilateral common iliac arteries without evidence of stenosis. CT/CTA Abd/Pelvis W/WO Contrast IMPRESSION: 1. Hepatomegaly and liver cyst. 2. No focal acute inflammatory process. 3. No evidence of vascular stenosis. Electronically Signed: William Sheffield MD at 10:15 EDT ,
--- OUTSIDE RECORDS SUMMARY | 2024-01-04 07:07 | XMS RPT_ITS | CCD ---
Author Organization [facility] Care Team Providers Care Floor Inspector Name Role Phone REBEKA HE Unavailable Unavailable AMANDA OSBORNE Unavailable Amanda Carpenter Unavailable Unavailable Unavailable Amanda Osborne MD Primary Care Provider Amanda Osborne Unavailable Linda, Fanny Unavailable Unavailable Zenaida Silva Unavailable Sean Malagon Unavailable OSMIN PORTILLO Attending Unavailable AMANDA OSBORNE Primary Care Unavailable SELF, SELF Referring Unavailable AMANDA OSBORNE Primary Care Unavailable SELF, SELF Referring Unavailable MONICA KWAN Attending Unavailable Amanda Osborne Primary Care Flip Silva, Dr. Zenaida Hsu Attending Dr. Zenaida Jones Referring Amanda Carpenter Primary Care Fanny Echavarria Attending Unavailable Dr. Sean Malagon Attending Unavail able Amanda Osborne Primary Care MD AMANDA Carpenter Attending Monica MD AMANDA Cuevas Referring Monica vaMD AMANDA Horne Primary Care Monica MD ZENAIDA Coates Attending Unavail able MD ZENAIDA SILVA Referring Unavail able MD AMANDA OSBORNE Primary Care Monica MD ZENAIDA Coates Attending MD AMANDA Sauceda Primary Care Monica MD ZENAIDA Coates Attending Unavail MD AMANDA Pisano Primary Care Monica MD AMANDA Cuevas Primary Care Monica vailajosette Finley, Ms. Irene Raeann Attending Amanda Carpenter MD Primary Care Provider Amanda Osborne MD Unavailable ZENAIDA SILVA Attending AMANDA Campbell Primary Care Unavailab AMANDA Tobin Attending Dianaab AMANDA Tobin Primary Care Unavailab AMANDA Tobin Primary Care Unavailab AB Goldberg Attending Unavailable Allergies Allergy Classification Reported Allergen(s) Allergy Type Date of Onset Reaction(s) Facility Penicillins (antibiotic) (2 sources) Penicillins; Translations: [Penicillins] Drug Allergy [facility] Work Phone: (20 sources) Penicillins; Translations: [Penicillins] Allergy to drug (finding) 2 [facility] (3 sources) Penicillins Drug Intolerance 2 [facility] Work Phone: Medications Current Medications Medication Drug Class(es) Dates Sig (Normalized) Sig (Original) [id number] 200 actuat albuterol 0.09 mg/actuat metered dose inhaler (1 source) beta2-Adrenergic Agonist Start: 03-16-2021 End: 03-23-2021 take 2 puff(s) by inhalation every four hours as needed albuterol 108 (90 Base) MCG/ACT Aero Soln inhaler Inhale 2 puffs every 4 hours as needed for up to 7 days. 18 g 0 03/16/2021 03/23/2021 Active azithromycin 250 mg oral tablet (1 source) Macrolide Antimicrobial Start: 03-16-2021 End: 03-20-2021 azithromycin 250 MG tablet Take 500 mg X1 then 250 mg PO Once Daily X 4 days 6 tablet 0 03/16/2021 03/20/2021 Active diazePAM 5 mg oral tablet (3 sources) Benzodiazepine Start: 12-26-2022 take 1 tablet by mouth every eight hours as needed diazePAM (Valium) 5 mg tablet Take 1 tablet (5 mg) by mouth every 8 hours if needed for muscle spasms. 12/26/2022 Active doxycycline monohydrate 100 mg oral tablet (1 source) Tetracycline-class Drug Start: 08-04-2023 End: 08-14-2023 take 1 tablet by mouth twice daily doxycycline (Adoxa) 100 mg tablet Indications: Cutaneous abscess of left axilla Take 1 tablet (100 mg) by mouth 2 times a day for 10 days. Take with a full glass of water and do not lie down for at least 30 minutes after 20 tablet 08/04/2023 08/14/2023 Active fluticasone propionate 0.05 mg/actuat metered dose nasal spray (8 sources) Corticosteroid Start: 12-22-2022 take 2 spray(s) nasal route twice daily fluticasone (Flonase) 50 mcg/actuation nasal spray Indications: Allergic rhinitis, unspecified seasonality, unspecified trigger USE 2 SPRAY(S) IN EACH NOSTRIL TWICE DAILY 48 mL 1 12/22/2022 Active Start: 03-05-2022 take 2 spray(s) nasa l route twice daily Fluticasone Propionate 50 MCG/ACT Nasal Suspension USE 2 SPRAY(S) IN EACH NOSTRIL TWICE DAILY Quantity: 48 Refills: 1 Ordered: 05-Mar-2022 Amanda Osborne MD Start : 05-Mar-2022 Active ibuprofen 800 mg oral tablet (20 sources) Nonsteroidal Anti-inflammatory Drug Start: 04-17-2023 End: 04-17-2023 take 1 tablet by mouth every eight hours for pain ibuprofen 800 mg tablet Indications: Migraine without status migrainosus, not intractable, unspecified migraine type Take 1 tablet (800 mg) by mouth every 8 hours if needed for mild pain (1 - 3). 90 tablet 11 04/17/2023 Active Start: 03-02-2022 take 1 tablet by viola th three times daily at mealtime ibuprofen 800 mg oral tablet ; 1 tab(s) orally 3 times a day Quantity: 20 Refills: 0 Ordered: 02-Mar-2022 Fanny Mckeon Start: 02-Mar-2022 Generic Substitution Allowed Comments: Do not take this drug if you are .It is very important that you take or use this exactly as directed. Do not skip doses or discontinue unless directed by your doctor.May cause drowsiness or dizziness.Obtain medical advice before taking any non-prescription drugs as some may affect the action of this medication.Take with food or milk. Start: 01-02-2019 End: 01-31-2019 take 1 tablet by mouth every six hours as needed ibuprofen 600 mg oral tablet ; 1 tab(s) orally every 6 hours, As needed, PainPRN Reason: Pain - Mild (1-3) Quantity: 40 Refills: 0 Ordered: 02-Jan-2019 Nelson Ware Start: 02-Jan-2019 End: 31-Jan-2019 Generic Substitution Allowed Comment on above: Do not take this sherry g if you are .It is very important that you take or use this exactly as directed. Do not skip doses or discontinue unless directed by your doctor.May cause drowsiness or dizziness.Obtain medical advice before taking any non-prescription drugs as some may affect the action of this medication.Take with food or milk. levoFLOXacin 500 mg oral tablet (3 sources) Quinolone Antimicrobial Start: 02-18-20 take 1 tablet by mouth once daily levoFLOXacin (Levaquin) 500 mg tablet Take 1 tablet (500 mg) by mouth once daily. 02/17/2023 Active omeprazole 40 mg delayed release oral capsule (9 sources) Proton Pump Inhibitor Start: 04-10-19 24 End: 04-17-19 24 take 1 capsule by mouth once daily omeprazole (PriLOSEC) [address] capsule Indications: Esophagitis, unspecified without bleeding Take 1 capsule (40 mg) by mouth once daily. 90 capsule 04/17/2023 Active Start: 03-05-2022 take 1 capsule by [facility] once daily Omeprazole 40 MG Oral Capsule Delayed Release TAKE 1 CAPSULE Daily Quantity: 90 Refills: 3 Ordered: 06-Mar-2022 Amanda Osborne MD Start : 05-Mar-2022 Active predniSONE 20 mg oral tablet (1 source) Start: 03-16-2021 End: 03-22-2021 take 2 tablets by mouth once daily, then take 1 tablet by mouth once daily predniSONE 20 MG tablet Take 2 tablets by mouth daily for 3 days, THEN 1 tablet daily for 3 days. 40,40,40,20,20,20. 9 tablet 0 03/16/2021 03/22/2021 Active sulfamethoxazole 800 mg / trimethoprim 160 mg oral tablet (3 sources) Dihydrofolate Reductase Inhibitor Antibacterial, Sulfonamide Antimicrobial Start: 08-04-2023 End: 08-14-2023 take 1 tablet by mouth twice daily sulfamethoxazole-trime thoprim (Bactrim DS) 800-160 mg tablet Indications: Cutaneous abscess of left axilla Take 1 tablet by mouth 2 times a day for 10 days. 20 tablet 08/04/2023 08/14/2023 Active Start: 01-04-2021 take 1 tablet by viola th twice daily Sulfamethoxazole-Trimethoprim 800-160 MG Oral Tablet TAKE 1 TABLET TWICE DAILY. Quantity: 14 Refills: 0 Ordered: 04-Jan-2021 Mayra Kennedy DO Start : 04-Jan-2021 Active SUMAtriptan 100 mg oral tablet (20 sources) Serotonin-1b and Serotonin-1d Receptor Agonist Start: 04-17-2023 End: 04-17-2023 take 1 tablet by mouth once SUMAtriptan (Imitrex) 100 mg tablet Indications: Migraine without status migrainosus, not intractable, unspecified migraine type Take 1 tablet (100 mg) by mouth 1 time if needed for migraine (TAKE 1 TABLET EVERY 2 HOURS NEEDED FOR MIGRAINE. DO NOT EXCEED 200 MG). 9 tablet 11 04/17/2023 Active take 1 tablet by mouth every two hours SUMAtriptan Succinate 100 MG Oral Tablet TAKE 1 TABLET FOR MIGRAINE RELIEF. MAY REPEAT 2 HOURS LATER. MAXIMUM 200MG/DAY. Quantity: 9 Refills: 11 Ordered: 05-Mar-2022 Amanda Osborne MD Active valACYclovir 500 mg oral tablet (20 sources) Herpesvirus Nucleoside Analog DNA Polymerase Inhibitor, Herpes Simplex Virus Nucleoside Analog DNA Polymerase Inhibitor, Herpes Zoster Virus Nucleoside Analog DNA Polymerase Inhibitor Start: 06-13-2019 End: 04-17-2023 take 1 tablet by mouth once daily valACYclovir (Valtrex) 500 mg tablet Indications: Herpes Take 1 tablet (500 mg) by mouth once daily. 90 tablet 3 04/17/2023 Active Completed/Discontinued Medications Medication Drug Class(es) Dates Sig (Normalized) Sig (Original) acetaminophen 325 mg / HYDROcodone bitartrate 5 mg oral tablet (1 source) Opioid Agonist Start: 06-03-2019 End: 06-05-2019 take 1 tablet by mouth every four hours hydrocodone-acetam inophen 5 mg-325 mg oral tablet ; 1 tab(s) orally every 4 hours Quantity: 18 Refills: 0 Ordered: 03-Jun-2019 Fuentes Mario Start: 03-Jun-2019 End: 05-Jun-2019 Generic Substitution Allowed Comments: Caution federal law prohibits the transfer of this drug to any person other than the person for whom it was prescribed.May cause drowsiness. Alcohol may intensify this effect. Use care when operating dangerous machinery.This product contains acetaminophen. Do not use with any other product containing acetaminophen to prevent possible liver damage.Using more of this medication than prescribed may cause serious breathing problems. Comment on above: Caution [employer] law prohibits the transfer of this drug to any person other than the person for whom it was prescribed.May cause drowsiness. Alcohol may intensify this effect. Use care when operating dangerous machinery.This product contains acetaminophen. Do not use with any other product containing acetaminophen to prevent possible liver damage.Using more of this medication than prescribed may cause serious breathing problems. cetirizine hydrochloride 10 mg oral tablet (5 sources) Histamine-1 Receptor Antagonist Start: 03-05-2022 take 1 tablet by mouth once daily Cetirizine HCl - 10 MG Oral Tablet TAKE 1 TABLET DAILY DIRECTED. Quantity: 90 Refills: 3 Ordered: 05-Mar-2022 Amanda Osborne MD Start : 05-Mar-2022 Active clindamycin 300 mg oral capsule (7 sources) Lincosamide Antibacterial Start: 03-02-2022 Clindamycin HCl - 300 MG Oral Capsule Quantity: 30 Refills: 0 Ordered: 02-Mar-2022 DO Start : 02-Mar-2022 Active Start: 03-02-2022 End: 03-11-2022 take 1 capsule by mouth three times daily Cleocin HCl 300 mg oral capsule ; 1 cap(s) orally 3 times a day Quantity: 30 Refills: 0 Ordered: 02-Mar-2022 Fanny Mckeon Start: 02-Mar-2022 End: 11-Mar-2022 Generic Substitution Allowed Comments: Finish all this medication unless otherwise directed by prescriber.Medication should be taken with plenty of water. Comment on above: Finish all this medi cation unless otherwise directed by prescriber.Medication should be taken with plenty of water. lidocaine hydrochloride 20 mg/ml mucous membrane topical solution (6 sources) Antiarrhythmic, Amide Local Anesthetic Start: 03-02-2022 Lidocaine Viscous HCl - 2 % Mouth/Throat Solution Quantity: 200 Refills: 0 Ordered: 02-Mar-2022 DO Start : 02-Mar-2022 Active Start: 03-02-2022 Lidocaine Visc ous 2% mucous membrane solution ; Apply topically to affected area 3 times a day Quantity: 180 Refills: 0 Ordered: 02-Mar-2022 Fanny Mckeon Start: 02-Mar-2022 Generic Substitution Allowed oxyCODONE hydrochloride 5 mg oral tablet (1 source) Opioid Agonist Start: 01-02-2019 End: 01-03-2019 take 1 tablet by mouth every six hours oxyCODONE 5 mg oral tablet ; 1 tab(s) orally every 6 hours Quantity: 5 Refills: 0 Ordered: 02-Jan-2019 Nelson Ware Start: 02-Jan-2019 End: 03-Jan-2019 Generic Substitution Allowed Comments: Caution federal law prohibits the transfer of this drug to any person other than the person for whom it was prescribed.It is very important that you take or use this exactly as directed. Do not skip doses or discontinue unless directed by your doctor.May cause drowsiness. Alcohol may intensify this effect. Use care when operating dangerous machinery.This prescription cannot be refilled.Using more of this medication than prescribed may cause serious breathing problems. Comment on above: Caution federal law prohibits the transfer of this drug to any person other than the person for whom it was prescribed.It is very important that you take or use this exactly as directed. Do not skip doses or discontinue unless directed by your doctor.May cause drowsiness. Alcohol may intensify this effect. Use care when operating dangerous machinery.This prescription cannot be refilled.Using more of this medication than prescribed may cause serious breathing problems. Problems Active Problems Problem Classification Problem Date Documented Date Episodic/Chronic Allergic reactions (1 source) Allergy status to penicillin; Translations: [Allergy status to penicillin] Onset: 03-10-2022 Episodic Cancer of cervix (6 sources) Low grade squamous intraepithelial lesion on cervical Papanicolaou smear; Translations: [Papanicolaou smear of cervix with low grade squamous intraepithelial lesion (LGSIL)] Episodic Cancer of other female genital organs (14 sources) Low grade squamous intraepithelial lesion on vaginal Papanicolaou smear; Translations: [Papanicolaou smear of vagina with low grade squamous intraepithelial lesion (LGSIL)] Onset: 02-24-2023 02-24-2023 Episodic Conditions associated with dizziness or vertigo (1 source) Dizziness and giddiness; Translations: [Dizziness and giddiness] Onset: 03-10-2022 Episodic Diseases of mouth; excluding dental (2 sources) Glossitis; Translations: [Other diseases of tongue] Onset: 03-02-2022 Episodic Disorders of lipid metabolism (1 source) Pure hypercholesterolemia, unspecified; Translations: [Pure hypercholesterolemia, unspecified] Onset: 03-10-2022 Chronic Esophageal disorders (6 sources) Esophagitis; Translations: [Esophagitis, unspecified] 04-17-2023 Episodic Fever of unknown origin (1 source) Fever, unspecified; Translations: [Fever, unspecified] Onset: 03-10-2022 Episodic Fluid and electrolyte disorders (3 sources) Hypokalemia; Translations: [Hypopotassemia] Onset: 03-10-2022 03-10-2022 Episodic Headache; including migraine (20 sources) Migraine; Translations: [Migraine, unspecified, without mention of intractable migraine without mention of status migrainosus] Onset: 04-17-2023 04-17-2023 Chronic Influenza (2 sources) Influenza 03-10-2022 Comment on above: FLU SYMPTOMS, SOB Menopausal disorders (20 sources) Menopausal symptom; Translations: [Symptomatic menopausal or female climacteric states] Chronic Nonmalignant breast conditions (20 sources) Pain of breast; Translations: [Mastodynia] Episodic Other aftercare (15 sources) Surgical follow-up; Translations: [Follow-up examination, following surgery, unspecified] Episodic Other aftercare (1 source) Other terminal operations manager (current) drug therapy; Translations: [Other terminal operations manager (current) drug therapy] Onset: 03-10-2022 Episodic Other connective tissue disease (1 source) Swelling of left lower limb; Translations: [Other specified soft tissue disorders] 04-17-2023 Episodic Other connective tissue disease (2 sources) Other specified soft tissue disorders; Translations: [Other specified soft tissue disorders] Onset: 04-17-2023 Episodic Other female genital disorders (14 sources) Vaginal mass; Translations: [Other specified symptoms associated with female genital organs] Episodic Other female genital disorders (14 sources) Lesion of vulva; Translations: [Other specified noninflammatory disorders of vulva and perineum] Episodic Other infections; including parasitic (1 source) H/O: viral illness; Translations: [Personal history of other infectious and parasitic diseases] Episodic Other lower respiratory disease (14 sources) Cough; Translations: [Cough] Episodic Other lower respiratory disease (1 source) Shortness of breath; Translations: [Shortness of breath] Onset: 03-10-2022 Episodic Other and delivery including normal (20 sources) Delivery normal; Translations: [Normal delivery] Episodic Comment on above: [id number]; Other screening for suspected conditions (not mental disorders or infectious disease) (20 sources) Patient encounter status; Translations: [Special screening for malignant neoplasms of vagina] Onset: 06-12-2021 Episodic Other upper respiratory disease (1 source) Congestion of nasal sinus; Translations: [Nasal congestion] Episodic Other upper respiratory infections (8 sources) Acute maxillary sinusitis; Translations: [Acute maxillary sinusitis, unspecified] Onset: 03-16-2021 Episodic Residual codes; unclassified (20 sources) Finding of menstrual bleeding; Translations: [Other specified conditions influencing health status] Episodic Residual codes; unclassified (20 sources) Past history of procedure; Translations: [Other specified personal history presenting hazards to health] Episodic Comment on above: 06/09/2018; Residual codes; unclassified (8 sources) Genetic mutation; Translations: [Genetic susceptibility to other disease] Episodic Residual codes; unclassified (2 sources) Chills (without fever); Translations: [Chills (without fever)] Onset: 03-02-2022 Episodic Skin and subcutaneous tissue infections (3 sources) Abscess of axilla; Translations: [Cutaneous abscess of left axilla] Onset: 08-04-2023 08-04-2023 Episodic Unclassified (2 sources) SORE THROAT, PAIN GOING RIGHT EAR, PAIN UNDER RIGHT SIDE ON TONGUE 03-02-2022 Comment on above: SORE THROAT, PAIN GO ING RIGHT EAR, PAIN UNDER RIGHT SIDE ON TONGUE Unclassified (2 sources) 6 MO REPEAT PAP 10-29-2021 Comment on above: 6 MO REPEAT PAP Unclassified (1 source) MED REFILLS 02-28-2022 Comment on above: MED REFILLS Unclassified (1 source) Pharyngitis, acute 03-02-2022 Unclassified (1 source) Viral illness 03-10-2022 Unclassified (1 source) Acute cough; Translations: [Acute cough] Onset: 03-11-2022 Unclassified (1 source) Cough, unspecified; Translations: [Cough, unspecified] Onset: 03-16-2021 Unclassified (1 source) Contact with and (suspected) exposure to COVID-19; Translations: [Contact with and (suspected) exposure to COVID-19] Onset: 03-10-2022 Unclassified (1 source) Esophagitis, unspecified without bleeding; Translations: [Esophagitis, unspecified without bleeding] Onset: 04-17-2023 Viral infection (20 sources) Herpes simplex; Translations: [Herpes simplex without mention of complication] Onset: 03-10-2022 03-10-2022 Episodic Past or Other Problems Problem Classification Problem Date Documented Da te Episodic/Chronic Other upper respiratory disease (2 sources) Nasal congestion; Translations: [Nasal congestion] Onset: 03-16-2021 Episodic Unclassified (1 source) Acute cough; Translations: [Acute cough] Onset: 03-11-2022 Unclassified (1 source) Cough, unspecified; Translations: [Cough, unspecified] Onset: 03-16-2021 Unclassified (1 source) Esophagitis, unspecified without bleeding; Translations: [Esophagitis, unspecified without bleeding] Onset: 04-17-2023 Results Test Name Value Interpretation Reference Range Facility Cervical AND or Vaginal cyto logy studyon 02-24-2023 Cytology Cervical or vaginal smear or scraping study Pathology report.total SEE COMMENT Gynecologic Cytology Case: [id number] Authorizing Provider: Zenaida Silva MD Collected: 02/24/2023906 Ordering Location: [facility] Received: 02/24/2023906 Office Building First Screen: Lynette Simons, CT Rescreen: JUDY Husain Specimen: ThinPrep Liquid-Based Pap-Imaging System Screen, VAGINA, DIAGNOSTIC Cytology study comment SEE COMMENT A. THINPREP PAP VAGINA, DIAGNOSTIC - Specimen Adequacy Satisfactory for evaluation General Categorization Negative for intraepithelial lesion or malignancy. Descriptive Interpretation Negative for intraepithelial lesion or malignancy Specimen does not meet the requisition-stated criteria for HPV testing. See Pap test interpretation above. Laboratory comment SEE COMMENT Slide(s) initially screened by JUDY Krueger at [facility] [id number] [facility] [id number] QC review performed by JUDY Husain at [id number] [facility] [id number] By the signature on this report, the individual or group listed as making the Final Interpretation/Diagnosis certifies that they have reviewed this case. This specimen has been analyzed by the Room[employer]Prep Imaging System ([employer] an automated imaging and review system, which assists the laboratory in evaluating cells on ThinPrep Pap tests. Following automated imaging, selected pierce from every slide were reviewed by a mold filler plastic dolls and/or pathologist. Cervical cytology is a screening procedure primarily for squamous cancers and precursors and has associated false-negative and false-positives results as evidenced by published data. Your patient's test should be interpreted in this context, together with the patient's history and clinical findings. Regular sampling and follow-up of unexplained clinical signs and symptoms are recommended to minimize false negative results. 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 Annual 2. History of mild dysplasia of the vagina Follow-up in 6 months for repeat Pap. Chief Complaint Patient is here for her yearly exam and pap test. Hysterectomy in 2019. Patient had bilateral mastectomy with reconstruction on 04/11/22. Patient has no concerns at this time. History of Present IllnessPresents for annual exam. She voices no complaints and is doing well. Denies any bowel or bladder problems. Denies any breast problems. Previous hysterectomy. She had bilateral mastectomy with reconstruction in March 2022. 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) Breast cancer screening, high risk patient (V76.10) (Z12.39) Breast pain in female (611.71) (N64.4) Dense breast tissue (793.82) (R92.2) Encounter for screening mammogram for breast cancer (V76.12) (Z12.31) Esophagitis (530.10) (K20.90) Herpes simplex virus (HSV) infection (054.9) (B00.9) LGSIL Pap smear of vagina (795.13) (R87.622) Menopausal symptoms (627.2) (N95.1) Migraines (346.90) (G43.909) Pap test, as part of routine gynecological examination (V76.2) (Z01.419) 10/29/2021: LGSIL 04/02/2021: LGSIL 02/06/2020:Negative 03/15/2018; WNL Vaginal mass (625.8) (N89.8) Vaginal Papanicolaou smear (V76.47) (Z12.72) Vulvar lesion (624.8) (N90.89) Past Medical History Problems History of Date of last menstrual period (LMP) unknown (V49.89) (Z78.9) History of Examination of eyes and vision (V72.0) (Z01.00) History of dental examination (V15.89) (Z92.89) History of screening mammography (V15.89) (Z92.89) 06/09/2018 History of Normal vaginal delivery (650) (O80) 1998_40weeks 1999_40weeks 2002_40weeks Surgical History Problems History of Mastectomy bilateral 04/11/2022: with reconstruction History of Tooth extraction History of Total hysterectomy abdominal 12/30/2018 Family History Mother Family history of migraine headaches (V17.2) (Z82.0) Father Family history of diabetes mellitus (V18.0) (Z83.3) Diabetes Mellitus Type 2 Family history of hypertension (V17.49) (Z82.49) Sister Family history of migraine headaches (V17.2) (Z82.0) Grandparent Family history of migraine headaches (V17.2) (Z82.0) Paternal Grandmother Family history of Primary malignant neoplasm of female breast Aunt x2 Unknown of onset age Paternal Aunt Family history of Primary malignant neoplasm of female breast Aunt x2 Unknown of onset age Uncle Family history of Aneurysm Social History Problems Consumes alcohol (V49.89) (Z78.9) Occationally Does not have living will Does not use illicit drugs (V49.89) (Z78.9) Former smoker (V15.82) (Z87.891) No No Living Will Sexually active Allergies Medication Penicillins Hives;; Updated By: Irene Lacy; 01/28/2019 10:22:10 AM Current Meds Medication NameInstruction Cetirizine HCl - 10 MG Oral TabletTAKE 1 TABLET DAILY DIRECTED. Clindamycin HCl - 300 MG Oral Capsule Fluticasone Propionate 50 MCG/ACT Nasal SuspensionUSE 2 SPRAY(S) IN EACH NOSTRIL TWICE DAILY IBU 800 MG Oral TabletTAKE 1 TABLET 3 times daily PRN Lidocaine Viscous HCl - 2 % Mouth/Throat Solution Omeprazole 40 MG Oral Capsule Delayed ReleaseTAKE 1 CAPSULE Daily SUMAtriptan Succinate 100 MG Oral TabletTAKE 1 TABLET FOR MIGRAINE RELIEF. MAY REPEAT 2 HOURS LATER. MAXIMUM 200MG/DAY. valACYclovir HCl - 500 MG Oral TabletTAKE 1 TABLET DAILY. Vitals Vital Signs Recorded: [id number] 08:45AM Asqnymnn832 Wfenuebjn10 Height5 ft 5 in Azjuqc45.3 kg BMI Cdzbkqjbsw54.99 kg/m2 BSA Calculated1.84 Tobacco Useb) No PHQ-2 #1. Over the last 2 weeks have you felt down, depressed or hopeless? (If yes, answer PHQ-9 below)No PHQ-2 #2. Over the last 2 weeks have you felt little interest or pleasure in doing things? (If yes, answer PHQ-9 below)No Falls Screening (Age 18+)a) No falls within the last year LMPHysterectomy 2019 Physical Exam PHYSICAL EXAMINATION (more content not included)... Normal [facility] Tobacco Screening.on 023 Adult depression screening assessment No [facility] [address] Phone: Fall risk assessment a) No falls within the last year [facility] [address] Phone: Last menstrual period start date Hysterectomy 2018 [facility] [address] [employer] Work Phone: Tobacco use status CPHS b) No [facility] [address] [employer] Work Phone: NOVEL CORONAVIRUSon 03-11-20 22 PERFORMED BY [facility] Normal [facility] Comment on above: Performed By: #### C COVID #### [place] [address] SARS-CoV-2 (COVID-19) RNA WILEY+probe Ql (Unsp spec) Not detected Normal NOT DETECTED [facility] Comment on above: Result Comment: Nega tive results do not preclude SARS-CoV-2 infection and should not be used as the sole basis for treatment or other patient management decisions. Optimum specimen types and timing for peak viral levels during infections caused by SARS-CoV-2 has not been determined. The possibility of a false negative result should especially be considered if the patient's recent exposures or clinical presentation suggest that SARS-CoV-2 infection is probable, and diagnostic tests for other causes of illness (e.g., other respiratory illness) are negative. Collection of a new specimen and re-testing may be necessary if the patient is critically ill or clinically deteriorating. Performed By: #### C COVID #### Testing performed at [address] [address] NARRATIVE This test was perfor med using isothermal WILEY and has been approved as Emergency Use Authorization (EUA) for the qualitative detection [id number] nucleic acid. Normal [facility] Comment on above: Performed By: #### C COVID #### Testing performed at [place] [id number] BLOOD CULTURE, BACTERIALon 1 05-11-2021 BLOOD CULTURE, BACTERIAL Only 1 bottle drawn PATIENT: IRENE MAIN LOCATION: [facility]#: [id number] : 71 AGE: SEX: F ORDERED BY: SEAN MALAGON SOURCE: Blood COLLECTED: 03/09/22 23:35 ANTIBIOTICS AT [facility].: RECEIVED : 03/10/22 14:06 SITE: R E S U L T S BLOOD CULTURE, BACTERIAL FINAL 03/14/22 15:42 No Growth at 1 days No Growth at 2 days No Growth at 3 days NO GROWTH at 4 days - FINAL REPORT [facility] Comment on above: Performed By: #### B LDC #### [facility] [address] [place] [address] BLOOD CULTURE, BACTERIAL Only 1 bottle drawn PATIENT: IRENE MAIN LOCATION: [facility]#: [id number] : 71 AGE: SEX: F ORDERED BY: SEAN MALAGON SOURCE: Blood COLLECTED: 03/09/22 23:35 ANTIBIOTICS AT [facility].: RECEIVED : 03/10/22 14:08 SITE: ANTECUBITAL PERIPHERAL R E S U L T S BLOOD CULTURE, BACTERIAL FINAL 03/14/22 15:42 No Growth at 1 days No Growth at 2 days No Growth at 3 days NO GROWTH at 4 days - FINAL REPORT [facility] Comment on above: Performed By: #### B LDC #### [facility] [address] [place] [id number] CBC AND DIFFERENTIALon 03-10 % AUTOMATED IMMATURE GRAN 0.9 % Normal 0.0 - 0.9 [facility] Comment on above: Result Comment: Erika ture Granulocyte Count (IG) includes promyelocytes, myelocytes and metamyelocytes but does not include bands. Percent differential counts (%) should be interpreted in the context of the absolute cell counts (cells/L). Performed By: #### T RP #### [place] [id number] DIFFERENTIAL SEE MANUAL DIFF Normal [facility] Comment on above: Performed By: #### T RPHS #### [place] [id number] Erythrocyte distribution width (RBC) [Ratio] 12.1 % Normal 11.5 - 14.5 [facility] Comment on above: Performed By: #### T RP #### [place] [id number] Hematocrit (Bld) [Volume fraction] 34.9 % Low 36.0 - 46.0 [facility] Comment on above: Performed By: #### T RP #### [address] [address] Hemoglobin (Bld) [Mass/Vol] 11.7 g/dL Low 12.0 - 16.0 [facility] Comment on above: Performed By: #### T RPHS #### [place] [id number] MCHC (RBC) [Mass/Vol] 33.5 g/dL Normal 32.0 - 36.0 [facility] Comment on above: Performed By: #### T RPHS #### [address] [address] MCV (RBC) [Entitic vol] 94 fL Normal 80 - 100 [facility] Comment on above: Performed By: #### T RPHS #### [address] [address] Platelets (Bld) [#/Vol] 176 10*3/uL Normal 150 - 450 [facility] Comment on above: Performed By: #### T RP #### [address] [address] RBC 3.71 x10E12/L Low 4.00 - 5.20 [facility] Comment on above: Performed By: #### T RP #### [address] [address] WBC (Bld) [#/Vol] 9.4 10*3/uL Normal 4.4 - 11.3 [facility] Comment on above: Performed By: #### T RP #### [place] [id number] COMPREHENSIVE PANELon 2021 Albumin [Mass/Vol] 3.9 g/dL Normal 3.4 - 5.0 [facility] Comment on above: Performed By: #### C MP #### [address] [address] ALP [Catalytic activity/Vol] 98 U/L Normal 33 - 110 [facility] Comment on above: Performed By: #### C MP #### [address] [address] ALT [Catalytic activity/Vol] 33 U/L Normal 7 - 45 [facility] Comment on above: Result Comment: Andria ents treated with Sulfasalazine may generate falsely decreased results for ALT. Performed By: #### C MP #### [address] [address] Anion gap [Moles/Vol] 14 mmol/L Normal 10 - 20 [facility] Comment on above: Performed By: #### C MP #### [address] [address] AST [Catalytic activity/Vol] 55 U/L High 9 - 39 [facility] Comment on above: Performed By: #### C MP #### [address] [address] Bilirubin [Mass/Vol] 0.7 mg/dL Normal 0.0 - 1.2 [facility] Comment on above: Performed By: #### C MP #### [address] [address] Calcium [Mass/Vol] 8.9 mg/dL Normal 8.6 - 10.3 [facility] Comment on above: Performed By: #### C MP #### [address] [address] Chloride [Moles/Vol] 104 mmol/L Normal 98 - 107 [facility] Comment on above: Performed By: #### C MP #### [address] [address] Creatinine [Mass/Vol] 0.86 mg/dL Normal 0.50 - 1.05 [facility] Comment on above: Performed By: #### C MP #### [address] [address] GFR/1.73 sq M.predicted among non-blacks MDRD (S/P/Bld) [Vol rate/Area] 83 mL/min/{1.73_m2} Normal >90 [facility] Comment on above: Result Comment: CALC ULATIONS OF ESTIMATED GFR ARE PERFORMED USING THE 2020 CKD-EPI STUDY REFIT EQUATION WITHOUT THE RACE VARIABLE FOR THE IDMS-TRACEABLE CREATININE METHODS. https://jasn.asnjournals.org/content//ASN.71761823 88 Performed By: #### C MP #### [address] [address] Glucose [Mass/Vol] 129 mg/dL High 74 - 99 [facility] Comment on above: Performed By: #### C MP #### [address] [address] HCO3 (Bld) [Moles/Vol] 21 mmol/L Normal 21 - 32 [facility] Comment on above: Performed By: #### C MP #### [address] [address] Potassium [Moles/Vol] 3.1 mmol/L Low 3.5 - 5.3 [facility] Comment on above: Performed By: #### C MP #### [address] [address] Protein [Mass/Vol] 6.8 g/dL Normal 6.4 - 8.2 [facility] Comment on above: Performed By: #### C MP #### [address] [address] Sodium [Moles/Vol] 136 mmol/L Normal 136 - 145 [facility] Comment on above: Performed By: #### C MP #### [address] [address] Urea nitrogen [Mass/Vol] 12 mg/dL Normal 6 - 23 [facility] Comment on above: Performed By: #### C MP #### [address] [address] [address] ANGIO CHEST FOR PEon 02-14 CT ANGIO CHEST FOR PE Patient Name: IRENE MAIN STUDY: CT ANGIO CHEST FOR PE; 03/10/2022 12:34 am INDICATION: Dyspnea/elevated D-dimer . COMPARISON: 06/03/2019. ACCESSION NUMBER(S): [id number] ORDERING CLINICIAN: SEAN MALAGON TECHNIQUE: Helical data acquisition of the chest was obtained after the administration of 90 milliliterOMNIPAQUE 350. Images were reformatted in axial, coronal, and sagittal planes. MIP reconstructions were performed on a separate workstation and provided for interpretation. FINDINGS: LOWER NECK AND SUPERFICIAL SOFT TISSUES: Within normal limits. MEDIASTINUM/DANDRE: No lymphadenopathy. Esophagus is unremarkable. Small hiatal hernia. CARDIOVASCULAR: Cardiac chamber size within normal limits. No pericardial effusion. Aortic caliber normal. Normal caliber of main pulmonary artery. UPPER ABDOMEN: Splenomegaly measuring 13.9 cm. Hepatic cysts measuring up to 3.1 cm. LUNGS, AIRWAYS, AND PLEURA: There is mild dependent subsegmental atelectasis and air trapping. The trachea and central airways are patent. MUSCULOSKELETAL: No acute osseous abnormality or suspicious osseous lesions. IMPRESSION: 1. No pulmonary embolism. No acute cardiopulmonary abnormality. 2. Splenomegaly, new from 06/03/2019. Electronically signed by: MARTIN AJ, DO Normal [facility] Covid 19 Resultson 2 SARS-CoV-2 (COVID-19) RNA WILEY+probe Ql (Unsp spec) NEGATIVE COVID-19 Test Coronaviruses are common world-wide and are the cause of many common colds. SARS-COV2 is a new coronavirus that began circulating worldwide in 2019 so we are calling it COVID-19. It has been estimated that four out of five patients with COVID-19 will recover at home without the need for medical attention. Symptoms of COVID-19 may include cough, fever, shortness of breath, loss of taste or smell and other flu-like symptoms including chills, sore muscles, sore throat, and headache. Severe illness is more common in older people and people with other health problems such as high blood pressure, obesity, and immune system problems. If the test is positive, you have COVID-19. You will be contacted by the ordering physicians office and instructed to remain on home isolation, in accordance with CDC guidelines. You may also be contacted by the [facility] to see if any of your close contacts may have been exposed to the virus and need to quarantine. If the test is negative, you likely do not have COVID-19 at this time, but you still may have a different illness that can spread to other people (like Influenza, or the Flu) and could still be at risk for getting COVID-19. We recommend that you stay away from other people to limit the spread of illness until your symptoms are improving and you are fever-free for 24 hours without the use of fever lowering medications such as acetaminophen or ibuprofen. No test is 100% accurate so if you are still concerned you may have COVID-19, talk to your doctor about the need to continue to stay away from others. Medicines Unless your provider told you not to use the following: Acetaminophen (Tylenol and others) is generally safe. Anti-inflammatory medications, such as Ibuprofen (Advil or Motrin) or Naproxen (Aleve) can also be used. Xpbt-bwi-pbuznkz cough and cold medicines can be used according to the instructions on the package. Some tjuv-rtj-sabrbro medicines also contain acetaminophen. Make sure you are not taking more than your recommended dose. For those not hospitalized, there is no specific treatment available for this illness. Antibiotics do not treat Coronaviruses. Follow-Up Follow up with your doctor by scheduling a virtual visit or consider follow-up at one of our urgent care fever clinics. If you are having difficulty breathing, or are very weak and having difficulty standing, this is a medical emergency. Call 911 or have someone take you to the nearest emergency room immediately. If possible, wear a facemask. Additional guidance from the CDC for patients who tested POSITIVE for COVID-19 How to isolate: Isolate yourself in a specific room at home and limit your contact with others. Use a separate bathroom from other members of the household, when possible. Leave home only to get essential medical care. Do not go to work, school or public areas. Avoid using public transportation, ride-sharing, or taxis. Restrict contact with pets and other animals. If you must care for your pet or be around animals while you are sick, wash your hands before and after your interaction and wear a facemask. Make sure that shared spaces in the home have good airflow, such as by an air conditioner or an opened window, weather permitting. Personal Hygiene Procedures: Wear a face mask when in the same room as other people or pets. If a face mask interferes with your breathing, others should wear a mask when sharing space with you. Frequent hand-washing: wash your hands with soap and water for at least 20 seconds. If soap and water are not available, use alcohol-based hand terminal operations manager. Avoid touching your eyes, nose, and mouth with unwashed hands. Household Hygiene Procedures: Avoid sharing personal household items such as dishes, glassware, cups, eating utensils, towels or bedding with other people or pets in your home. After use, these items should be washed with soap and hot water. Disinfect all high-touch surfaces every day with antibacterial cleaning solutions such as Lysol wipes, bleach, cleansers, etc. High-touch surfaces include tabletops, doorknobs, bathroom fixtures, toilets, phones, keyboards, tablets and bedside tables. Immediately clean any surfaces that may have blood, poop or body fluids on them, using antibacterial cleaning solutions such as Lysol wipes, bleach, cleansers, etc. If clothing or bedding come into contact with blood, poop or body fluids, they should be washed immediately. Follow the directions on the laundry detergent and clothing labels but hot water is recommended when possible. Stopping home isolation precautions: If possible, consult your doctor before stopping home isolation precautions. According to the CDC, you can discontinue home isolation precautions when you have met both of these criteria: Your fever and respiratory symptoms have been gone for 24 sang (more content not included)... Normal [facility] D-DIMER, VTE EXCLUSIONon D-DIMER, VTE EXCLUSION 2499 ng/mL FEU Abnormal < or = 500 [facility] Comment on above: Result Comment: The VTE Exclusion D-Dimer assay is reported in ng/mL Fibrinogen Equivalent Units (FEU). Per manufacturers instructions for use, a value of less than 500 ng/mL (FEU) may help to exclude DVT or PE in outpatients when the assay is used with a clinical pretest probability assessment. ([facility] must utilize and document eCalc Wells Score Deep Vein Thrombosis Risk for DVT exclusion only; Emergency Department should utilize Guidelines for Emergency Department Use of the VTE Exclusion D-Dimer and Clinical Pretest probability assessment model for DVT or PE exclusion.) Performed By: #### T [facility] #### [place] [address] INFLUENZA A/B, COVID 2019 PC R,SYMPTOMATICon 03-10-2022 INFLUENZA A, PCR Not detected Normal Not Detected [facility] Comment on above: Result Comment: Resp iratory virus testing is performed routinely by PCR for Influenza A/B and RSV. Not Detected results do not preclude Influenza A/B or RSV infections since the adequacy of sample collection or low viral burden may impact the clinical sensitivity of this test method. Performed By: #### B MP #### [place] [address] INFLUENZA B, PCR Not detected Normal Not Detected [facility] Comment on above: Result Comment: Resp iratory virus testing is performed routinely by PCR for Influenza A/B and RSV. Not Detected results do not preclude Influenza A/B or RSV infections since the adequacy of sample collection or low viral burden may impact the clinical sensitivity of this test method. Performed By: #### B MP #### [place] [address] SARS-CoV-2 (COVID-19) RNA WILEY+probe Ql (Unsp spec) Not detected Normal Not Detected [facility] Comment on above: Result Comment: . This test has received FDA Emergency Use Authorization (EUA) and has been verified by [facility]. This test is only authorized for the duration of time that circumstances exist to justify the authorization of the emergency use of in vitro diagnostic tests for the detection of SARS-CoV-2 virus and/or diagnosis of COVID-19 infection under section 564(b)(1) of the Act, 21 U.S.C. 360bbb-3(b)(1), unless the authorization is terminated or revoked sooner. [facility] is certified under CLIA-88 as qualified to perform high complexity testing. Testing is performed in the [facility] laboratory located at [address] [place] [address]. SARS-CoV-2/Flu/RSV Multiplex Test: Fact sheet for providers: https://www.fda.gov/media/622635/download Fact sheet for patients: https://www.fda.gov/media/010611/download Performed By: #### B MP #### [address] [address] MANUAL DIFFERENTIALon 2021 % BASOPHIL 0.0 % Normal 0.0 - 2.0 [facility] Comment on above: Performed By: #### M DIFF #### [address] [address] % EOSINOPHIL 1.0 % Normal 0.0 - 6.0 [facility] Comment on above: Performed By: #### M DIFF #### [address] [address] % LYMPH-ATYPICAL 8.0 % Normal 0.0 - 2.0 [facility] Comment on above: Performed By: #### M DIFF #### [address] [address] % LYMPHOCYTE 36.0 % Normal 13.0 - 44.0 [facility] Comment on above: Performed By: #### M DIFF #### [address] [address] % MONOCYTE 4.0 % Normal 2.0 - 10.0 [facility] Comment on above: Performed By: #### M DIFF #### [address] [address] % SEG NEUTROPHIL 51.0 % Normal 40.0 - 80.0 [facility] Comment on above: Result Comment: Perc ent differential counts (%) should be interpreted in the context of the absolute cell counts (cells/L). Performed By: #### M DIFF #### [place] [id number] ANC 4.79 x10E9/L Normal 1.20 - 7.70 [facility] Comment on above: Performed By: #### M DIFF #### [place] [address] BASOPHIL 0.00 x10E9/L Normal 0.00 - 0.10 [facility] Comment on above: Performed By: #### M DIFF #### [place] [address] EOSINOPHIL 0.09 x10E9/L Normal 0.00 - 0.70 [facility] Comment on above: Performed By: #### M DIFF #### [place] [address] LYMPH-ATYPICAL 0.75 x10E9/L High 0.00 - 0.50 [facility] Comment on above: Performed By: #### M DIFF #### [place] [address] LYMPHOCYTE 3.38 x10E9/L Normal 1.20 - 4.80 [facility] Comment on above: Performed By: #### M DIFF #### [place] [id number] MONOCYTE 0.38 x10E9/L Normal 0.10 - 1.00 [facility] Comment on above: Performed By: #### M DIFF #### [place] [id number] SEG NEUTROPHIL 4.79 x10E9/L Normal 1.20 - 7.00 [facility] Comment on above: Performed By: #### M DIFF #### [place] [address] Provider Note - ED v3on 12-2 Provider Note - ED v3 Provider Note: Chart Review: ED NOTES ED NOTES: HPI: Patient is a 46-year-old female presents with about a 10-day history of symptoms. Earlier her primary complaint was a sore throat. CT was performed then of the neck which was negative. Now she presents more with respiratory symptoms. She feels short of breath, labored breathing. Feels dizzy and is hyperventilating. Also with intermittent fevers and chills. Denies any chest pain. But does have a cough. No radiating symptoms to the extremities neck or jaw. ROS: Constitution: Denies Eyes: Fernando Ears: Denies Nose: Denies Mouth/Teeth: Denies Throat/Neck: Denies Cardiovascular: Denies Respiratory: Denies Gastrointestinal: Denies Musculoskeletal: Denies Integumentary: Denies Endocrine: Denies Neuro: Denies Psychiatric: Denies Heme/Lymph: Denies Allergic/Immunologic: Denies Physical Exam I have reviewed the triage vital signs. Const: Well nourished, well developed, appears stated age, no acute distress Eyes: PERRL, EOM intact, no conjunctival injection, vision grossly normal HENT: Neck supple without meningismus , Moist mucous membranes, no pharyengeal swelling or exudate CV: Tachypnea, Warm, well-perfused extremities. Chest non tender RESP: Lungs clear bilaterally, Unlabored respiratory effort GI: soft, non-tender, non-distended, no masses : MSK: No gross deformities appreciated Back: Non tender, no pain with ROM Skin: Warm, dry. No rashes Neuro: Alert and oriented x4, GCS 15 , escort blind II-XII grossly intact. Sensation and motor function of extremities grossly intact. Psych: Appropriate mood and affect. I have reviewed and confirmed nurses/medics notes for patient past, social and family history. Portions of this note were dictated by speech recognition. An attempt at proof reading was made to minimize errors. Minor errors in avionics technician may be present. HISTORY OF PRESENTING ILLNESS IRENE is a 46 year old Female and was seen by me at 09-Mar-2022 23:00 for a chief complaint of other (Pt arrived from home per triage. States was here 1 week ago for the same problems. Feeling dizzy and hyperventilating. C/O Rt earache and headache and fever. [place] 200 mg motrin and 500 mg Tylenol at 2119.)(1). Triage Information: Most recent Vital Sign Value Date Temp (F): 99.2 03-09-2022 22:58 Temp (C): 37.3 03-09-2022 22:58 Heart Rate (beats/min): 83 03-09-2022 22:58 Respirations (breaths/min): 22 03-09-2022 22:58 SpO2 (%): 93 03-09-2022 22:58 BP Systolic (mm Hg): 119 03-09-2022 22:58 BP Diastolic (mm Hg): 69 03-09-2022 22:58 PAST MEDICAL HISTORY ALLERGIES/INTOLERANCES: Allergy Allergen: penicillin Type: Drug Reaction: Hives/Urticaria HEALTH HISTORY: Medical History Name:Hypercholesterolemia Code:E78.00 Name:Migraines Code:G43.909 Name:Menorrhagia Code:N92.0 OUTPATIENT MEDICATIONS: Home Medications Review Status for Reconciliation: Complete Med Status: Patient Currently Takes Medications Drug Name: Imitrex 100 mg oral tablet Instructions: 1 tab(s) orally once, As Needed Drug Name: ibuprofen 600 mg oral tablet Instructions: 1 tab(s) orally every 6 hours, As needed, Pain Drug Name: Cleocin HCl 300 mg oral capsule Instructions: 1 cap(s) orally 3 times a day Drug Name: ibuprofen 800 mg oral tablet Instructions: 1 tab(s) orally 3 times a day SIGNIFICANT EVENTS: Clinical Events Description:Surgical Procedure Additional Notes:1. Total abdominal hysterectomy, bilateral salpingo-oophorectomy;2. ;3. ;4. ;5. Past Medical History Description:pneumonia Past Surgical History Description:hysterectomy Description:bladder sling CRITICAL CARE RESULTS: Recent Lab Results: I have reviewed these laboratory results: Urinalysis with Culture if Indicated 10-Mar-2022 01:17:00 ResultValue Color, Urine STRAW Reference Range: STRAW,YELLOW Appearance, Urine CLEAR Specific [place], Urine 1.010 pH, Urine 6.5 Protein, Urine NEGATIVE Glucose, Urine NEGATIVE Blood, Urine TRACE A Ketones, Urine NEGATIVE Bilirubin, Urine NEGATIVE Urobilinogen, Urine <2.0 Nitrite, Urine NEGATIVE Leukocyte Esterase, Urine NEGATIVE Urinalysis, Microscopic 10-Mar-2022 01:17:00 ResultValue White Cells 3 Red Blood Cells <1 Epithelial Cells, Squamous 1 Complete Blood Count + Differential 09-Mar-2022 23:35:00 ResultValue White Blood Cell Count 9.4 Red Blood Cell Count 3.71 L HGB 11.7 L HCT 34.9 L MCV 94 MCHC 33.5 PLT 176 RDW-CV 12.1 Immature Granulocytes % 0.9 Differential Comment SEE MANUAL DIFF Comprehensive Metabolic Panel 09-Mar-2022 23:35:00 ResultValue Glucose, Serum 129 H NA 136 K 3.1 L CL 104 Bicarbonate, Serum 21 Anion Gap, Serum 14 BUN 12 CREAT 0.86 GFR Female 83 Calcium, Serum 8.9 ALB 3.9 ALKP 98 T Pro 6.8 T Bili 0.7 Alanine Aminotransferase, Serum 33 (more content not included)... [facility] RED CELL MORPHOLOGYon 2021 POLYCHROMASIA Mild Normal [facility] Comment on above: Performed By: #### B MP #### [place] [address] RBC morphology finding Nom (Bld) See Below [facility] Comment on above: Performed By: #### B MP #### [place] [address] STOMATOCYTES Few Normal [facility] Comment on above: Performed By: #### B MP #### [place] [address] RSV PCRon 03-10-2022 RSV,PCR Not detected Normal Not Detected [facility] Comment on above: Result Comment: Resp iratory virus testing is performed routinely by PCR for Influenza A/B and RSV. Not Detected results do not preclude Influenza A/B or RSV infections since the adequacy of sample collection or low viral burden may impact the clinical sensitivity of this test method. Performed By: #### R SVPC #### [place] [address] Lab Specimen Source Nasal, Nasopharyngeal [facility] Comment on above: Performed By: #### R SV[facility] #### [place] [address] Performed By: #### B MP #### [place] [address] Risk Screen - Adult Emergenc yon 03-10-2022 Risk Screen - Adult Emergency Preferred Language: Preferred Language: Preferred Language for Discussing Health Care (patient/designee)Maltese Patient Preferred Pharmacy: Patient Preferred Pharmacy Statement: I have reviewed and updated the patient's preferred pharmacy selection for today's visit. Advanced Directives: Advance Directive/DNRno Family Violence Adult: Abuse Screen: Are you or have you been threatened or abused physically, emotionally, or sexually by anyoneno Learning Assessment (Patient): Learning Assessment (Patient): Patient is Able to be Assessed for Learningyes Factors Influencing Readiness to Learnpain Factors that Impact Ability to Learnnone Devices/Methods Used to Communicatenone Learning Preferenceswritten material Cultural Considerationsnone Developmental Considerationsnone Congregational Considerationsnone Other Learnersnone Learning Assessment (Other Learner): Learning Assessment (Other Learner): Other learner availableno Pressure Injury/TB/Substance: Pressure Injury: Pressure Injury Present on Admissionno Do you have a coughno Smoking Statusformer smoker Alcohol Usedenies Drug Usedenies Drug 2 Usedenies Admission Risk Screen: Significant IndicatorsComplete CAGE: CAGE: Is this an injured patient at a Trauma Center [place] [place]Shauna/Tyro/Farrah/Chrsitian Antunez/Chantel): no Electronic Signatures: Gladys Webster (SUPV) (Signed 09-Mar-2022 23:07) Authored: Preferred Language, Patient Preferred Pharmacy, Advanced Directives, Family Violence Adult, Learning Assessment (Patient), Learning Assessment (Other Learner), Pressure Injury/TB/Substance, Pressure Injury, CAGE Last Updated: 09-Mar-2022 23:07 by Gladys Webster (SUPV) [facility] TH CT Angio Chest For PEon 1 05-11-2021 CT Angio Chest For PE [facility] Work Phone: TROPONIN I, HIGH SENSITIVITY on 03-10-2022 TROPONIN I, HIGH SENSITIVITY 7 ng/L Normal 0 - 13 [facility] Comment on above: Result Comment: . Less than 99th percentile of normal range cutoff- Female and children under 18 years old <14 ng/L; Male <21 ng/L: Negative Repeat testing should be performed if clinically indicated. . Female and children under 18 years old 14-50 ng/L; Male 21-50 ng/L: Consistent with possible cardiac damage and possible increased clinical risk. Serial measurements may help to assess extent of myocardial damage. . >50 ng/L: Consistent with cardiac damage, increased clinical risk and myocardial infarction. Serial measurements may help assess extent of myocardial damage. . NOTE: Children less than 1 year old may have higher baseline troponin levels and results should be interpreted in conjunction with the overall clinical context. . NOTE: Troponin I testing is performed using a different testing methodology at [facility] than at other [facility]. Direct result comparisons should only be made within the same method. Performed By: #### T [facility] #### [facility] [address] [place] [address] Triage - EDon 03-10-2022 Triage - ED Quick Triage: Are You no Have You Given In The Last 6 Weeksno Are You Currently Breastfeedingno The patient and/or guardian verbally acknowledges placement for services into the following (when Urgent Care Service hours are operating):emergency department Chart Review: ARRIVAL INFORMATION Mode of Arrival: private vehicle CHIEF COMPLAINT IRENE MAIN is a Female patient with a chief complaint of other (Pt arrived from home per triage. States was here 1 week ago for the same problems. Feeling dizzy and hyperventilating. C/O Rt earache and headache and fever. [place] 200 mg motrin and 500 mg Tylenol at 2120.). Onset of the Complaint: 09-Mar-2022 Triage Date/Time: 09-Mar-2022 22:58 THELMA: 3 Pain Rating (0-10): 5 = Moderate Vital Signs: Temperature: 99.2F ( 37.3C) taken temporal Blood Pressure: 119/69 Mean: Heart Rate: 83 Respiratory Rate: 22 Pulse Oximetry: 93% on room air, no respiratory support. 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 Patient has homicidal thoughts: no Last Known Well: unknown Risk Screens Suicide Risk Screen In the Past Month: Have you wished you were or wished you could go to sleep and not wake up no In the Past Month: Have you had any actual thoughts of killing yourself no In Your Lifetime: Have you ever done anything, started to do anything, or prepared to do anything to end your life no Lyons Fall Scale Screening Has the patient fallen before (or is the patient in the ED as a result of a fall) has not had a fall Does the patient have an impaired gait does not have impaired gait Is the patient cognitively impaired not cognitively impaired Interventions: Lyons Fall Interventions: LOW INTERVENTIONS: *patient oriented to surroundings and call system, * patient/family falls education completed and documented, *patients fall status communicated during bedside handoff, *whiteboard updated, *mode of toileting discussed with patient, *bed in low position with brakes locked, *call light in reach, * non-skid footwearlow interventions except: patient oriented to surroundings and call systemlow interventions except: patient/family falls education completed and documentedlow interventions except: patients fall status communicated during bedside handoff, whiteboard updatedlow interventions except: mode of toileting discussed with patientlow interventions except: bed in low position with brakes lockedlow interventions except: call light in reach and low interventions except: non-skid footwear TRAVEL HISTORY Travel History Coronavirus Screening: no exposure or symptoms Travel Exposure History: NO travel to International locations in the past 30 days PAIN Pain Scale Used: ARPITA Pain Rating (0-10): 5 = Moderate Past Medical History: Past Medical History Reviewedyes Electronic Signatures: Gladys Webster (SUPV) (Signed 09-Mar-2022 23:05) Entered: Risk Screens, Pain, Travel History, Chart Review, Scores, Past Medical History Authored: Quick Triage, Risk Screens, Pain, Travel History, Chart Review, Scores, Past Medical History Last Updated: 09-Mar-2022 23:05 by Gladys Webster (SUPV) [facility] UA MICROSCOPICon 03-10-2022 RBC (U) [#/Vol] /uL Normal 0-5 [facility] Comment on above: Performed By: #### U AMIC #### [place] [address] SQUAMOUS EPITH. CELLS 1 /HPF [facility] Comment on above: Performed By: #### U AMIC #### [place] [address] WBC 3 /HPF Normal 0-5 [facility] Comment on above: Performed By: #### U AMIC #### [address] [address] URINALYSIS WITH CULTURE IF I NDICATEDon 03-10-2022 Appearance (U) CLEAR Normal CLEAR [facility] Comment on above: Performed By: #### B MP #### [address] [address] Bilirubin Ql (U) Negative Normal NEGATIVE [facility] Comment on above: Performed By: #### B MP #### [address] [address] Color (U) STRAW Normal STRAW,YELLO W [facility] Comment on above: Performed By: #### B MP #### [address] [address] Glucose Ql (U) Negative Normal NEGATIVE [facility] Comment on above: Performed By: #### B MP #### [address] [address] Hemoglobin Ql (U) TRACE Abnormal NEGATIVE [facility] Comment on above: Performed By: #### B MP #### [address] [address] Ketones Ql (U) Negative Normal NEGATIVE [facility] Comment on above: Performed By: #### B MP #### [address] [address] Leukocyte esterase Test strip Ql (U) Negative Normal NEGATIVE [facility] Comment on above: Performed By: #### B MP #### [address] [address] Nitrite Ql (U) Negative Normal NEGATIVE [facility] Comment on above: Performed By: #### B MP #### [address] [address] pH (U) 6.5 [pH] Normal 5.0 - 8.0 [facility] Comment on above: Performed By: #### B MP #### [address] [address] Protein Ql (U) Negative Normal NEGATIVE [facility] Comment on above: Performed By: #### B MP #### [address] [address] Specific gravity (U) [Rel density] 1.010 Normal 1.005 - 1.035 [facility] Comment on above: Performed By: #### B MP #### [address] [address] Urobilinogen (U) [Mass/Vol] mg/dL Normal 0.0 - 1.9 [facility] Comment on above: Performed By: #### B MP #### [address] [address] Color (U) STRAW See Below [facility] Work Phone: [phone] Comment on above: Reference Range: STR AW,YELLOW Glucose Ql (U) Negative NEGATIVE [facility] Work Phone: Ketones Ql (U) Negative NEGATIVE [facility] Work Phone: Leukocyte esterase Test strip Ql (U) Negative NEGATIVE [facility] Work Phone: pH (U) 6.5 [pH] 5.0 - 8.0 [facility] Work Phone: [phone] Protein (U) [Mass/Vol] Negative NEGATIVE [facility] Work Phone: RBC (U) [#/Vol] TRACE Abnormal NEGATIVE [facility] Work Phone: [phone] Specific gravity (U) [Rel density] 1.010 1 See Below [facility] Work Phone: Comment on above: Reference Range: 1.0 05 - 1.035 URINALYSIS WITH CULTURE IF INDICATED Negative NEGATIVE [facility] Work Phone: [phone] URINALYSIS WITH CULTURE IF INDICATED <2.0 0.0 - 1.9 [facility] Work Phone: URINALYSIS WITH CULTURE IF INDICATED CLEAR CLEAR [facility] Work Phone: [phone] Urinalysis, Microscopicon Urinalysis, Microscopic 1 {/HPF} [facility] Work Phone: Urinalysis, Microscopic <1 0-5 [facility] Work Phone: [phone] Urinalysis, Microscopic 3 {/HPF} 0-5 [facility] Work Phone: Complete Blood Count + Diffe rentialon 03-09-2022 Erythrocyte distribution width (RBC) [Ratio] 12.1 % See Below [facility] Work Phone: Comment on above: Reference Range: 11. 5 - 14.5 Hematocrit (Bld) [Volume fraction] 34.9 % below low threshold See Below [facility] Work Phone: Comment on above: Reference Range: 36. 0 - 46.0 Hemoglobin (Bld) [Mass/Vol] 11.7 g/dL below low threshold See Below [facility] Work Phone: Comment on above: Reference Range: 12. 0 - 16.0 MCHC (RBC) [Mass/Vol] 33.5 g/dL See Below [facility] Work Phone: Comment on above: Reference Range: 32. 0 - 36.0 MCV (RBC) [Entitic vol] 94 fL 80 - 100 [facility] Work Phone: Platelets (Bld) [#/Vol] 176 10*3/uL 150 - 450 [facility] Work Phone: RBC (Bld) [#/Vol] 3.71 {x10E12/L} below low threshold See Below [facility] Work Phone: Comment on above: Reference Range: 4.0 0 - 5.20 WBC (Bld) [#/Vol] 9.4 10*3/uL 4.4 - 11.3 [facility] Work Phone: [phone] Complete Blood Count + Differential SEE MANUAL DIFF [facility] Work Phone: Complete Blood Count + Differential 0.9 % 0.0 - 0.9 [facility] Work Phone: Comment on above: Immature Granulocyte Count (IG) includes promyelocytes, myelocytes and metamyelocytes but does not include bands. Percent differential counts (%) should be interpreted in the context of the absolute cell counts (cells/L). Cult, Bloodon 03-09-2022 Bacteria identified Cx Nom (Bld) [facility] Work Phone: INFLUENZA A/B, COVID 2019 PC R,SYMPTOMATICon 03-09-2022 INFLUENZA A/B, COVID 2019 PCR,SYMPTOMATIC Not detected See Below [facility] Work Phone: Comment on above: Reference Range: Not Detected.This test has received [facility] Emergency Use Authorization (EUA) and has been verified by [facility]. This test is only authorized for the duration of time that circumstances exist to justify the authorization of the emergency use of in vitro diagnostic tests for the detection of SARS-CoV-2 virus and/or diagnosis of COVID-19 infection under section 564(b)(1) of the Act, 21 U.S.C. 360bbb-3(b)(1), unless the authorization is terminated or revoked sooner. [facility] is certified under CLIA-88 as qualified to perform high complexity testing. Testing is performed in the [facility] laboratory located at [address] [place] [address].SARS-CoV-2/Flu/RSV Multiplex Test: Fact sheet for providers: https://www.fda.gov/media/470271/downloadFact sheet for patients: https://www.fda.gov/media/573707/download Reference Range: Not Detected Respiratory virus testing is performed routinely by PCR for Influenza A/B and RSV. Not Detected results do not preclude Influenza A/B or RSV infections since the adequacy of sample collection or low viral burden may impact the clinical sensitivity of this test method. SOURCE: Nasal, Nasop haryngealReference Range: Not Detected Respiratory virus testing is performed routinely by PCR for Influenza A/B and RSV. Not Detected results do not preclude Influenza A/B or RSV infections since the adequacy of sample collection or low viral burden may impact the clinical sensitivity of this test method. Laboratory - Chemistry and C hemistry - challengeon 03-09-2022 Albumin BCP dye [Mass/Vol] 3.9 g/dL 3.4 - 5.0 [facility] Work Phone: ALP [Catalytic activity/Vol] 98 U/L 33 - 110 [facility] Work Phone: [phone] ALT With P-5'-P [Catalytic activity/Vol] 33 U/L 7 - 45 [facility] Work Phone: [phone] Comment on above: Patients treated wit h Sulfasalazine may generate falsely decreased results for ALT. Anion gap [Moles/Vol] 14 mmol/L 10 - 20 [facility] Work Phone: [phone] AST With P-5'-P [Catalytic activity/Vol] 55 U/L above high threshold 9 - 39 [facility] Work Phone: [phone] Bilirubin [Mass/Vol] 0.7 mg/dL 0.0 - 1.2 [facility] Work Phone: [phone] Calcium [Mass/Vol] 8.9 mg/dL 8.6 - 10.3 [facility] Work Phone: [phone] Chloride [Moles/Vol] 104 mmol/L 98 - 107 [facility] Work Phone: [phone] CO2 [Moles/Vol] 21 mmol/L 21 - 32 [facility] Work Phone: [phone] Creatinine [Mass/Vol] 0.86 mg/dL See Below [facility] Work Phone: [phone] Comment on above: Reference Range: 0.5 0 - 1.05 Glucose [Mass/Vol] 129 mg/dL above high threshold 74 - 99 [facility] Work Phone: [phone] Potassium [Moles/Vol] 3.1 mmol/L below low threshold 3.5 - 5.3 [facility] Work Phone: [phone] Protein [Mass/Vol] 6.8 g/dL 6.4 - 8.2 [facility] Work Phone: [phone] Sodium [Moles/Vol] 136 mmol/L 136 - 145 [facility] Work Phone: [phone] Urea nitrogen [Mass/Vol] 12 mg/dL 6 - 23 [facility] Work Phone: [phone] Laboratory - Hematology and Cell countson 03-09-2022 Basophils/100 WBC (Bld) 0.0 % 0.0 - 2.0 [facility] Work Phone: Lymphocytes/100 WBC (Bld) 36.0 % See Below [facility] Work Phone: Comment on above: Reference Range: 13. 0 - 44.0 Monocytes/100 WBC (Bld) 4.0 % 2.0 - 10.0 [facility] Work Phone: Laboratory - Microbiology an d Antimicrobial susceptibilityon 03-09-2022 RSV RNA WILEY+probe Ql (Unsp spec) Not detected See Below [facility] Work Phone: Comment on above: SOURCE: Nasal, Nasop haryngealReference Range: Not Detected Respiratory virus testing is performed routinely by PCR for Influenza A/B and RSV. Not Detected results do not preclude Influenza A/B or RSV infections since the adequacy of sample collection or low viral burden may impact the clinical sensitivity of this test method. No Panel Informationon 03-09 83 {mL/min/1.73m2} >90 [facility] Work Phone: Comment on above: CALCULATIONS OF ASHLEY MATED GFR ARE PERFORMED USING THE 2020 CKD-EPI STUDY REFIT EQUATION WITHOUT THE RACE VARIABLE FOR THE IDMS-TRACEABLE CREATININE METHODS.https://jasn.asnjournals.org/content/early/ASN. 2100994033 0.75 {x10E9/L} above high threshold See Below [facility] Work Phone: Comment on above: Reference Range: 0.0 0 - 0.50 0.00 {x10E9/L} See Below [facility] Work Phone: Comment on above: Reference Range: 0.0 0 - 0.10 0.09 {x10E9/L} See Below [facility] Work Phone: Comment on above: Reference Range: 0.0 0 - 0.70 0.38 {x10E9/L} See Below [facility] Work Phone: Comment on above: Reference Range: 0.1 0 - 1.00 3.38 {x10E9/L} See Below [facility] Work Phone: [phone] Comment on above: Reference Range: 1.2 0 - 4.80 4.79 {x10E9/L} See Below [facility] Work Phone: [phone] Comment on above: Reference Range: 1.2 0 - 7.00 Reference Range: 1.2 0 - 7.70 8.0 % 0.0 - 2.0 [facility] Work Phone: [phone] 1.0 % 0.0 - 6.0 [facility] Work Phone: [phone] 51.0 % See Below [facility] Work Phone: [phone] Comment on above: Reference Range: 40. 0 - 80.0 Percent differential counts (%) should be interpreted in the context of the absolute cell counts (cells/L). Few [facility] Work Phone: [phone] [facility] Work Phone: [phone] See Below [facility] Work Phone: [phone] {ng/mL_FEU} Abnormal < or = 500 [facility] Work Phone: [phone] Comment on above: The VTE Exclusion D- Dimer assay is reported in ng/mL Fibrinogen Equivalent Units (FEU). Per manufacturers instructions for use, a value of less than 500 ng/mL (FEU) may help to exclude DVT or PE in outpatients when the assay is used with a clinical pretest probability assessment. (AE must utilize and document eCalc Wells Score Deep Vein Thrombosis Risk for DVT exclusion only; Emergency Department should utilize Guidelines for Emergency Department Use of the VTE Exclusion D-Dimer and Clinical Pretest probability assessment model for DVT or PE exclusion.) TROPONIN I, HIGH SENSITIVITY on 03-09-2022 Tropinin I.cardiac panel High sensitivity method 7 ng/L 0 - 13 [facility] Work Phone: Comment on above: .Less than 99th perc entile of normal range cutoff-Female and children under 18 years old <14 ng/L; Male <21 ng/L: NegativeRepeat testing should be performed if clinically indicated. .Female and children under 18 years old 14-50 ng/L; Male 21-50 ng/L:Consistent with possible cardiac damage and possible increased clinical risk. Serial measurements may help to assess extent of myocardial damage. .>50 ng/L: Consistent with cardiac damage, increased clinical risk andmyocardial infarction. Serial measurements may help assess extent of myocardial damage. . NOTE: Children less than 1 year old may have higher baseline troponin levels and results should be interpreted in conjunction with the overall clinical context. .NOTE: Troponin I testing is performed using a different testing methodology at [facility] than at other [facility]. Direct result comparisons should only be made within the same method. Office Visiton 03-05-2022 Follow-up visit Diagnoses/Problems Encounter for preventive health examination (V70.0) (Z00.00) Esophagitis (530.10) (K20.90) Abnormal CT scan, esophagus (793.4) (R93.3) Orders Abnormal CT scan, esophagus, Esophagitis Gastroenterology Referral Evaluation and Treatment Evaluate AND Treat Status: Hold For - Scheduling Requested for: 05Mar2022 Esophagitis Start: Omeprazole 40 MG Oral Capsule Delayed Release; TAKE 1 CAPSULE Daily Health Maintenance Start: Cetirizine HCl - 10 MG Oral Tablet; TAKE 1 TABLET DAILY DIRECTED Complete Blood Count + Differential; Status:Active; Requested for:05Mar2022; Start: Fluticasone Propionate 50 MCG/ACT Nasal Suspension (Flonase Allergy Relief); USE 2 SPRAY(S) IN EACH NOSTRIL TWICE DAILY Comprehensive Metabolic Panel; Status:Active; Requested for:05Mar2022; Renew: IBU 800 MG Oral Tablet; TAKE 1 TABLET 3 times daily PRN Lipid Panel; Status:Active; Requested for:05Mar2022; TSH WITH REFLEX TO FREE T4 IF ABNORMAL; Status:Active; Requested for:05Mar2022; Vitamin B12, Serum; Status:Active; Requested for:05Mar2022; Herpes simplex virus (HSV) infection Renew: valACYclovir HCl - 500 MG Oral Tablet; TAKE 1 TABLET DAILY Migraines Renew: SUMAtriptan Succinate 100 MG Oral Tablet (Imitrex); TAKE 1 TABLET FOR MIGRAINE RELIEF. MAY REPEAT 2 HOURS LATER. MAXIMUM 200MG/DAY Provider Impressions Check labs at her convenience. Continue current medications, will add omeprazole, discussed that ibuprofen is likely to aggravate esophagitis symptoms and she should only take that as needed. Chief Complaint ckup, ER f/u, Tor 03/01/22, states infection to throat, but was not told what kind of infection, states today she has nasal congestion, yellow drainage, cough, x2 teeth extracted 01/29/22. History of Present IllnessHere for routine f/u migraines. She was seen in the ER on 03/01 for sore throat/tongue pain - she was treated with steroids, antibiotics and viscous lidocaine. She was negative for strep, covid, influenza. She had a CT that was negative for infection/abscess in the neck. It did show esophagitis. She is now having cough, sinus congestion. She is on clindamycin. Overall she states that she is feeling better today than she had been feeling. She has taken OTC omeprazole 20 mg daily and felt that was somewhat helpful. We will start her on 40 mg daily and will refer for EGD/GI evaluation. Review of Systems Constitutional: Negative except as documented in history of present illness. Respiratory: Negative except as documented in history of present illness. Cardiovascular: Negative except as documented in history of present illness. 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) Breast cancer screening, high risk patient (V76.10) (Z12.39) Breast pain in female (611.71) (N64.4) Dense breast tissue (793.82) (R92.2) Encounter for screening mammogram for breast cancer (V76.12) (Z12.31) Herpes simplex virus (HSV) infection (054.9) (B00.9) LGSIL Pap smear of vagina (795.13) (R87.622) Menopausal symptoms (627.2) (N95.1) Migraines (346.90) (G43.909) Vaginal mass (625.8) (N89.8) Vaginal Papanicolaou smear (V76.47) (Z12.72) Vulvar lesion (624.8) (N90.89) Past Medical History History of Date of last menstrual period (LMP) unknown (V49.89) (Z78.9) History of Examination of eyes and vision (V72.0) (Z01.00) History of dental examination (V15.89) (Z92.89) History of screening mammography (V15.) (Z92.89) 06/09/2018 History of Normal vaginal delivery (650) (O80) 1998_40weeks 1999_40weeks 2002_40weeks History of Pap test, as part of routine gynecological examination (V76.2) (Z01.419) 10/29/2021: LGSIL 04/02/2021: LGSIL 02/06/2020:Negative 03/15/2018; WNL Surgical History History of Tooth extraction History of Total hysterectomy abdominal 12/30/2018 Social History Consumes alcohol (V49.89) (Z78.9) Occationally Does not have living will Does not use illicit drugs (V49.89) (Z78.9) Former smoker (V15.82) (Z87.891) No No Living Will Sexually active Allergies Penicillins Hives;; Updated By: Irene Lacy; 01/28/2019 10:22:10 AM Current Meds Medication NameInstruction Clindamycin HCl - 300 MG Oral Capsule IBU 800 MG Oral TabletTAKE 1 TABLET 3 times daily PRN Lidocaine Viscous HCl - 2 % Mouth/Throat Solution SUMAtriptan Succinate 100 MG Oral TabletTAKE 1 TABLET FOR MIGRAINE RELIEF. MAY REPEAT 2 HOURS LATER. MAXIMUM 200MG/DAY. valACYclovir HCl - 500 MG Oral TabletTAKE 1 TABLET DAILY. Vitals Vital Signs Recorded: [id number] 11:39AM Heart Rate78 Dyngzqsk331, LUE, Sitting Kdfzqxfbf75, LUE, Sitting Height5 ft 5 in Fqivmz249 lb 2 oz BMI Ojzlxejsqi38.64 kg/m2 BSA Calculated1.86 Tobacco Useb) No Falls Screening (Age 18+)a) No falls within the last year O2 Yqxsjahvty27 Physical Exam General: Alert and oriented, No acute distress. Respiratory: Lungs are clear to auscultation, Respirations are non-labored, Breath sounds (more content not included)... Normal [employer] Tobacco Screening.on 022 Fall risk assessment a) No falls within the last year [employer] Phone: Tobacco use status [facility] b) No -[employer] Phone: Clinical Event Note-Incident al Findings Follow-up 03/02/2203-03-2022 Clinical Event Note-Incidental Findings Follow-up 03/02/22 Clinical Event: Clinical Event Note: TopicIncidental Findings Follow-up 03/02/22 Details 03/03/22 1254 Reviewed incidental finding of: Findings There is fluid in the visible esophagus, with mild associated circumferential wall thickening compatible with reflux esophagitis. Endoscopic correlation is suggested Patient notified of finding by ED Provider and advised to follow-up with PCP. Task sent to PCP Olena for follow-up. No further Post Discharge Follow-Up needed. WILFRIDO Rodríguez, RN Post Discharge Registered Nurse Contact # [phone] Electronic Signatures: Kailey Aguilar (RN) (Signed 03-Mar-2022 14:22) Authored: Clinical Event Note Last Updated: 03-Mar-2022 14:22 by Kailey Aguilar (RN) [facility] BASIC METABOLIC PANELon 02-13 Anion gap [Moles/Vol] 13 mmol/L Normal 10 - 20 [facility] Comment on above: Performed By: #### B MP #### [address] [address] Calcium [Mass/Vol] 9.4 mg/dL Normal 8.6 - 10.3 [facility] Comment on above: Performed By: #### B MP #### [address] [address] Chloride [Moles/Vol] 101 mmol/L Normal 98 - 107 [facility] Comment on above: Performed By: #### B MP #### [address] [address] Creatinine [Mass/Vol] 0.81 mg/dL Normal 0.50 - 1.05 [facility] Comment on above: Performed By: #### B MP #### [address] [address] GFR/1.73 sq M.predicted among non-blacks MDRD (S/P/Bld) [Vol rate/Area] 89 mL/min/{1.73_m2} Normal >90 [facility] Comment on above: Result Comment: CALC ULATIONS OF ESTIMATED GFR ARE PERFORMED USING THE 2020 CKD-EPI STUDY REFIT EQUATION WITHOUT THE RACE VARIABLE FOR THE IDMS-TRACEABLE CREATININE METHODS. https://jasn.asnjournals.org/content//ASN.72593334 88 Performed By: #### B MP #### [address] [address] Glucose [Mass/Vol] 105 mg/dL High 74 - 99 [facility] Comment on above: Performed By: #### B MP #### [address] [address] HCO3 (Bld) [Moles/Vol] 26 mmol/L Normal 21 - 32 [facility] Comment on above: Performed By: #### B MP #### [address] [address] Potassium [Moles/Vol] 4.0 mmol/L Normal 3.5 - 5.3 [facility] Comment on above: Result Comment: MILD HEMOLYSIS DETECTED. The result may be falsely elevated due to hemolysis or other interferents. Clinical correlation is recommended. Repeat testing may be considered. Performed By: #### B MP #### [address] [address] Sodium [Moles/Vol] 136 mmol/L Normal 136 - 145 [facility] Comment on above: Performed By: #### B MP #### [address] [address] Urea nitrogen [Mass/Vol] 13 mg/dL Normal 6 - 23 [facility] Comment on above: Performed By: #### B MP #### [address] [address] CBCon 03-02-2022 Erythrocyte distribution width (RBC) [Ratio] 12.1 % Normal 11.5 - 14.5 [facility] Comment on above: Performed By: #### B MP #### [address] [address] Hematocrit (Bld) [Volume fraction] 38.4 % Normal 36.0 - 46.0 [facility] Comment on above: Performed By: #### B MP #### [address] [address] Hemoglobin (Bld) [Mass/Vol] 12.9 g/dL Normal 12.0 - 16.0 [facility] Comment on above: Performed By: #### B MP #### [address] [address] MCHC (RBC) [Mass/Vol] 33.6 g/dL Normal 32.0 - 36.0 [facility] Comment on above: Performed By: #### B MP #### [address] [address] MCV (RBC) [Entitic vol] 96 fL Normal 80 - 100 [facility] Comment on above: Performed By: #### B MP #### [place] [id number] Platelets (Bld) [#/Vol] 164 10*3/uL Normal 150 - 450 [facility] Comment on above: Performed By: #### B MP #### [place] [id number] RBC 3.99 x10E12/L Low 4.00 - 5.20 [facility] Comment on above: Performed By: #### B MP #### [place] [id number] WBC (Bld) [#/Vol] 7.2 10*3/uL Normal 4.4 - 11.3 [facility] Comment on above: Performed By: #### B MP #### [place] [id number] CORONAVIRUS 2019 BY PCRon SARS-CoV-2 (COVID-19) RNA WILEY+probe Ql (Unsp spec) Not detected Normal Not Detected [facility] Comment on above: Result Comment: . This test has received FDA Emergency Use Authorization (EUA) and has been verified by [facility]. This test is only authorized for the duration of time that circumstances exist to justify the authorization of the emergency use of in vitro diagnostic tests for the detection of SARS-CoV-2 virus and/or diagnosis of COVID-19 infection under section 564(b)(1) of the Act, 21 U.S.C. 360bbb-3(b)(1), unless the authorization is terminated or revoked sooner. [facility] is certified under CLIA-88 as qualified to perform high complexity testing. Testing is performed in the [facility] laboratory located at [address] [place] [address]. SARS-CoV-2/Flu/RSV Multiplex Test: Fact sheet for providers: https://www.fda.gov/media/762510/download Fact sheet for patients: https://www.fda.gov/media/181928/download Performed By: #### C OV19 #### [place] [address] Lab Specimen Source Nasal, Nasopharyngeal [facility] Comment on above: Performed By: #### C OV19 #### [place] [address] CT Neck with Contraston 02-13 CT Neck W contrast IV Normal -[employer] Work Phone: Covid 19 Resultson 2 SARS-CoV-2 (COVID-19) RNA WILEY+probe Ql (Unsp spec) NEGATIVE COVID-19 Test Coronaviruses are common world-wide and are the cause of many common colds. SARS-COV2 is a new coronavirus that began circulating worldwide in 2019 so we are calling it COVID-19. It has been estimated that four out of five patients with COVID-19 will recover at home without the need for medical attention. Symptoms of COVID-19 may include cough, fever, shortness of breath, loss of taste or smell and other flu-like symptoms including chills, sore muscles, sore throat, and headache. Severe illness is more common in older people and people with other health problems such as high blood pressure, obesity, and immune system problems. If the test is positive, you have COVID-19. You will be contacted by the ordering physicians office and instructed to remain on home isolation, in accordance with CDC guidelines. You may also be contacted by the [facility] to see if any of your close contacts may have been exposed to the virus and need to quarantine. If the test is negative, you likely do not have COVID-19 at this time, but you still may have a different illness that can spread to other people (like Influenza, or the Flu) and could still be at risk for getting COVID-19. We recommend that you stay away from other people to limit the spread of illness until your symptoms are improving and you are fever-free for 24 hours without the use of fever lowering medications such as acetaminophen or ibuprofen. No test is 100% accurate so if you are still concerned you may have COVID-19, talk to your doctor about the need to continue to stay away from others. Medicines Unless your provider told you not to use the following: Acetaminophen (Tylenol and others) is generally safe. Anti-inflammatory medications, such as Ibuprofen (Advil or Motrin) or Naproxen (Aleve) can also be used. Skuz-suu-qtbkrxl cough and cold medicines can be used according to the instructions on the package. Some tejz-taf-hcxrxqb medicines also contain acetaminophen. Make sure you are not taking more than your recommended dose. For those not hospitalized, there is no specific treatment available for this illness. Antibiotics do not treat Coronaviruses. Follow-Up Follow up with your doctor by scheduling a virtual visit or consider follow-up at one of our urgent care fever clinics. If you are having difficulty breathing, or are very weak and having difficulty standing, this is a medical emergency. Call 911 or have someone take you to the nearest emergency room immediately. If possible, wear a facemask. Additional guidance from the CDC for patients who tested POSITIVE for COVID-19 How to isolate: Isolate yourself in a specific room at home and limit your contact with others. Use a separate bathroom from other members of the household, when possible. Leave home only to get essential medical care. Do not go to work, school or public areas. Avoid using public transportation, ride-sharing, or taxis. Restrict contact with pets and other animals. If you must care for your pet or be around animals while you are sick, wash your hands before and after your interaction and wear a facemask. Make sure that shared spaces in the home have good airflow, such as by an air conditioner or an opened window, weather permitting. Personal Hygiene Procedures: Wear a face mask when in the same room as other people or pets. If a face mask interferes with your breathing, others should wear a mask when sharing space with you. Frequent hand-washing: wash your hands with soap and water for at least 20 seconds. If soap and water are not available, use alcohol-based hand terminal operations manager. Avoid touching your eyes, nose, and mouth with unwashed hands. Household Hygiene Procedures: Avoid sharing personal household items such as dishes, glassware, cups, eating utensils, towels or bedding with other people or pets in your home. After use, these items should be washed with soap and hot water. Disinfect all high-touch surfaces every day with antibacterial cleaning solutions such as Lysol wipes, bleach, cleansers, etc. High-touch surfaces include tabletops, doorknobs, bathroom fixtures, toilets, phones, keyboards, tablets and bedside tables. Immediately clean any surfaces that may have blood, poop or body fluids on them, using antibacterial cleaning solutions such as Lysol wipes, bleach, cleansers, etc. If clothing or bedding come into contact with blood, poop or body fluids, they should be washed immediately. Follow the directions on the laundry detergent and clothing labels but hot water is recommended when possible. Stopping home isolation precautions: If possible, consult your doctor before stopping home isolation precautions. According to the CDC, you can discontinue home isolation precautions when you have met both of these criteria: Your fever and respiratory symptoms have been gone for 24 sang (more content not included)... [facility] GROUP A STREP,PCRon 03-02-20 22 GROUP A STREP,PCR Not detected Normal Not Detected [facility] Comment on above: Result Comment: This test was performed utilizing an FDA- cleared rapid nucleic acid amplification by PCR to qualitatively detect Group A Streptococci from throat swab specimens without the need for culture confirmation of negative results. Performed By: #### B MP #### [address] [address] Lab Specimen Source Throat Normal [facility] Comment on above: Performed By: #### B MP #### [address] [address] HCG, Beta Quantitativeon HCG.beta subunit Qn 2 m[IU]/mL MP-Cl [facility] Work Phone: Comment on above: .Total HCG measureme nt is performed using the [employer] AccessImmunoassay which detects intact HCG and free beta HCG subunit. .This test is not indicated for use as a tumor marker.HCG testing is performed using a different test methodology at [facility] than other [facility]. Direct result comparisonshould only be made within the same method. REF VALUESNON FEMALE <5MALES <5 HCG,BETA-QUANTITATIVEon 02-13 HCG,BETA-QUANTITATI VE 2 mIU/mL [facility] Comment on above: Result Comment: . Total HCG measurement is performed using the [employer] Access Immunoassay which detects intact HCG and free beta HCG subunit. . This test is not indicated for use as a tumor marker. HCG testing is performed using a different test methodology at [facility] than other [facility]. Direct result comparison should only be made within the same method. REF VALUES NON FEMALE <5 MALES <5 Performed By: #### B MP #### [place] [address] INFLUENZA A + B PCRon 2021 INFLUENZA A, PCR Not detected Normal Not Detected [facility] Comment on above: Result Comment: Resp iratory virus testing is performed routinely by PCR for Influenza A/B and RSV. Not Detected results do not preclude Influenza A/B or RSV infections since the adequacy of sample collection or low viral burden may impact the clinical sensitivity of this test method. Performed By: #### I NFLP #### [place] [address] INFLUENZA B, PCR Not detected Normal Not Detected [facility] Comment on above: Result Comment: Resp iratory virus testing is performed routinely by PCR for Influenza A/B and RSV. Not Detected results do not preclude Influenza A/B or RSV infections since the adequacy of sample collection or low viral burden may impact the clinical sensitivity of this test method. Performed By: #### I NFLP #### [place] [address] Lab Specimen Source Nasal, Nasopharyngeal Normal [facility] Comment on above: Performed By: #### I NFLP #### [place] [address] INFLUENZA A/B, COVID 2019 PC R,SYMPTOMATICon 03-02-2022 INFLUENZA A, PCR Canceled [facility] Comment on above: Order Comment: TEST INFLUENZA A/B, COVID 2019 PCR,SYMPTOMATIC WAS CANCELLED, 200:21 NEEDS FLU ONLY. Result Comment: Resp iratory virus testing is performed routinely by PCR for Influenza A/B and RSV. Not Detected results do not preclude Influenza A/B or RSV infections since the adequacy of sample collection or low viral burden may impact the clinical sensitivity of this test method. Performed By: #### B MP #### [address] [address] INFLUENZA B, PCR Canceled [facility] Comment on above: Order Comment: TEST INFLUENZA A/B, COVID 2019 PCR,SYMPTOMATIC WAS CANCELLED, 200:21 NEEDS FLU ONLY. Result Comment: Resp iratory virus testing is performed routinely by PCR for Influenza A/B and RSV. Not Detected results do not preclude Influenza A/B or RSV infections since the adequacy of sample collection or low viral burden may impact the clinical sensitivity of this test method. Performed By: #### B MP #### [address] [address] SARS-CoV-2 (COVID-19) RNA WILEY+probe Ql (Unsp spec) Canceled [facility] Comment on above: Order Comment: TEST INFLUENZA A/B, COVID 2019 PCR,SYMPTOMATIC WAS CANCELLED, 200:21 NEEDS FLU ONLY. Result Comment: . This test has received FDA Emergency Use Authorization (EUA) and has been verified by [facility]. This test is only authorized for the duration of time that circumstances exist to justify the authorization of the emergency use of in vitro diagnostic tests for the detection of SARS-CoV-2 virus and/or diagnosis of COVID-19 infection under section 564(b)(1) of the Act, 21 U.S.C. 360bbb-3(b)(1), unless the authorization is terminated or revoked sooner. [facility] is certified under CLIA-88 as qualified to perform high complexity testing. Testing is performed in the [facility] laboratory located at [address] [place] [address]. SARS-CoV-2/Flu/RSV Multiplex Test: Fact sheet for providers: https://www.fda.gov/media/770532/download Fact sheet for patients: https://www.fda.gov/media/536418/download Performed By: #### B MP #### [place] [address] Lab Specimen Source Nasal, Nasopharyngeal [facility] Comment on above: Order Comment: TEST INFLUENZA A/B, COVID 2019 PCR,SYMPTOMATIC WAS CANCELLED, 200:21 NEEDS FLU ONLY. Performed By: #### B MP #### [place] [id number] Laboratory - Chemistry and C hemistry - challengeon 03-02-2022 Anion gap [Moles/Vol] 13 mmol/L 10 - 20 [facility] [employer] Work Phone: Calcium [Mass/Vol] 9.4 mg/dL 8.6 - 10.3 [facility] [employer] Work Phone: Chloride [Moles/Vol] 101 mmol/L 98 - 107 [facility] Work Phone: CO2 [Moles/Vol] 26 mmol/L 21 - 32 [facility] [employer] Work Phone: Creatinine [Mass/Vol] 0.81 mg/dL See Below [facility] Work Phone: Comment on above: Reference Range: 0.5 0 - 1.05 Glucose [Mass/Vol] 105 mg/dL above high threshold 74 - 99 [facility] Work Phone: Potassium [Moles/Vol] 4.0 mmol/L 3.5 - 5.3 [facility] Work Phone: Comment on above: MILD HEMOLYSIS DETEC HOLLY. The result may be falsely elevated due tohemolysis or other interferents. Clinical correlation is recommended.Repeat testing may be considered. Sodium [Moles/Vol] 136 mmol/L 136 - 145 [facility]: Urea nitrogen [Mass/Vol] 13 mg/dL 6 - 23 [facility] Phone: Laboratory - Hematology and Cell countson 03-02-2022 Erythrocyte distribution width (RBC) [Ratio] 12.1 % See Below [facility] [employer] Phone: Comment on above: Reference Range: 11. 5 - 14.5 Hematocrit (Bld) [Volume fraction] 38.4 % See Below [facility] [employer] Phone: Comment on above: Reference Range: 36. 0 - 46.0 Hemoglobin (Bld) [Mass/Vol] 12.9 g/dL See Below [facility] [employer] Phone: Comment on above: Reference Range: 12. 0 - 16.0 MCHC (RBC) [Mass/Vol] 33.6 g/dL See Below [facility] Phone: Comment on above: Reference Range: 32. 0 - 36.0 MCV (RBC) [Entitic vol] 96 fL 80 - 100 [facility] [employer] Phone: Platelets (Bld) [#/Vol] 164 10*3/uL 150 - 450 [facility] [employer] Phone: RBC (Bld) [#/Vol] 3.99 {x10E12/L} below low threshold See Below [facility] Phone: Comment on above: Reference Range: 4.0 0 - 5.20 WBC (Bld) [#/Vol] 7.2 10*3/uL 4.4 - 11.3 [facility] NR CT NECK WITH CONTRASTon 1 05-03-[address] NECK WITH CONTRAST Patient Name: IRENE MAIN STUDY: CT NECK WITH CONTRAST; 03/02/2022 2:20 am INDICATION: sore throat, fever, rule out abscess . COMPARISON: None. ACCESSION NUMBER(S): [id number] ORDERING CLINICIAN: FANNY MCKEON TECHNIQUE: Axial CT images of the neck were obtained. The patient received 90 cc Omnipaque 350 intravenous contrast agent. The images were reformatted in angled axial, coronal and sagittal planes. FINDINGS: Oral Cavity, Pharynx and Larynx: Evaluation oral cavity is limited by streak artifact from dental hardware. The nasopharyngeal and oropharyngeal structures are unremarkable. The hypopharyngeal and laryngeal structures are unremarkable. Retropharyngeal and Prevertebral Soft Tissues: Unremarkable. Lymph nodes: There are few non specific bilateral neck nodes, probably reactive in etiology. Neck vessels: Bilateral neck vessels are normal in course and caliber and appear patent. Thyroid gland: The thyroid gland is unremarkable in size and appearance. Parotid and submandibular glands: Bilateral parotid and submandibular glands are unremarkable in appearance. Paranasal Sinuses and Mastoids: Mucous retention cyst or polyp in the left maxillary sinus. Visualized paranasal sinuses and bilateral mastoids are otherwise clear. Visualized orbital structures are unremarkable. Visualized upper lungs are clear. Positional straightening of the normal cervical lordosis moderate discogenic degeneration and uncovertebral hypertrophy at C6-C7 greater than C5-C6. There is fluid in the visible esophagus, with mild associated circumferential wall thickening compatible with reflux esophagitis. IMPRESSION: No evidence of acute process, significant cervical adenopathy or a soft tissue mass in the neck. There is suspected pharyngeal mucosal hyperemia compatible with pharyngitis. There is fluid in the visible esophagus, with mild associated circumferential wall thickening compatible with reflux esophagitis. Endoscopic correlation is suggested. PURPLE ALERT: An alert notification was sent to the emergency department regarding incidental or unexpected imaging finding(s) in the radiology examination. Electronically signed by: MINNIE AVERY MD [facility] No Panel Informationon 03-02 89 {mL/min/1.73m2} >90 -[facility] [employer] Phone: Comment on above: CALCULATIONS OF ASHLEY MATED GFR ARE PERFORMED USING THE 2020 CKD-EPI STUDY REFIT EQUATION WITHOUT THE RACE VARIABLE FOR THE IDMS-TRACEABLE CREATININE METHODS.https://jasn.asnjournals.org/content//ASN. 5024057870 Not detected See Below -[facility] Work Phone: Comment on above: Reference Range: Not Detected Respiratory virus testing is performed routinely by PCR for Influenza A/B and RSV. Not Detected results do not preclude Influenza A/B or RSV infections since the adequacy of sample collection or low viral burden may impact the clinical sensitivity of this test method. SOURCE: Nasal, Nasop haryngealReference Range: Not Detected Respiratory virus testing is performed routinely by PCR for Influenza A/B and RSV. Not Detected results do not preclude Influenza A/B or RSV infections since the adequacy of sample collection or low viral burden may impact the clinical sensitivity of this test method. Provider Note - ED v3on - Provider Note - ED v3 Provider Note: Chart Review: ED NOTES ED NOTES: History of Present Illness: Patient presenting to emergency department with sore throat for the past few days. She states that she has had pain in the right side of her throat. She states it is worse with swallowing and talking. She did have some teeth pulled a few weeks ago. Patient states she also had noticed a white ulcer on the bottom of her tongue. She has had chills. She states that tonight she started coughing, but not before this. She denies any shortness of breath. Patient denies any rash, chest pain, leg swelling, or any other complaints. She has no dental pain. Past Medical History: denies Past surgical History: hysterectomy Family history: Reviewed and not pertinent to complaint Social history: Denies EtOH or drug use REVIEW OF SYSTEMS: Pertinent negatives and positives noted in the HPI. Otherwise, a complete review of system was negative. PHYSICAL EXAM: Appearance: Alert, oriented , cooperative, in no acute distress. Skin: Intact, dry skin, no lesions, rash, petechiae or purpura. Eyes: PERRLA, EOMs intact, Conjunctiva pink with no redness or exudates. HENT: Normocephalic, atraumatic. Nares patent. no uvular swelling, 1 mm white ulceration on inferior R lateral tongue; no submandibular swelling or trismus Neck: Supple, without meningismus. Trachea at midline. No lymphadenopathy. Pulmonary: Clear bilaterally with good chest wall excursion. No rales, rhonchi or wheezing. No accessory muscle use or stridor. Cardiac: Regular rate and rhythm, Abdomen: Abdomen is soft, nontender, and nondistended. Genitourinary: Exam deferred. Musculoskeletal: No cyanosis, clubbing, or edema. Neurological: grossly normal sensation, no weakness, no focal findings identified. Psychiatric: Appropriate mood and affect. HISTORY OF PRESENTING ILLNESS IRENE is a 46 year old Female and was seen by me at 01-Mar-2022 23:08 for a chief complaint of sore throat ( patient tongue was sore and then thursday it became swollen. patient states now her throat hurts to talk and swallow. denies new food or medications. patient also has right side ear pain.)(1). Triage Information: Most recent Vital Sign Value Date Temp (F): 100.8 03-01-2022 23:03 Temp (C): 38.2 03-01-2022 23:03 Heart Rate (beats/min): 92 03-01-2022 23:03 Respirations (breaths/min): 18 03-01-2022 23:03 SpO2 (%): 95 03-01-2022 23:03 BP Systolic (mm Hg): 157 03-01-2022 23:03 BP Diastolic (mm Hg): 71 03-01-2022 23:03 PAST MEDICAL HISTORY ALLERGIES/INTOLERANCES: Allergy Allergen: penicillin Type: Drug Reaction: Hives/Urticaria HEALTH HISTORY: Medical History Name:Hypercholesterolemia Code:E78.00 Name:Migraines Code:G43.909 Name:Menorrhagia Code:N92.0 OUTPATIENT MEDICATIONS: Home Medications Review Status for Reconciliation: Incomplete Med Status: Patient Currently Takes Medications Drug Name: Imitrex 100 mg oral tablet Instructions: 1 tab(s) orally once, As Needed Drug Name: ibuprofen 600 mg oral tablet Instructions: 1 tab(s) orally every 6 hours, As needed, Pain Drug Name: oxyCODONE 5 mg oral tablet Instructions: 1 tab(s) orally every 6 hours Drug Name: hydrocodone-acetaminophen 5 mg-325 mg oral tablet Instructions: 1 tab(s) orally every 4 hours Drug Name: Cleocin HCl 300 mg oral capsule Instructions: 1 cap(s) orally 3 times a day Drug Name: Lidocaine Viscous 2% mucous membrane solution Instructions: Apply topically to affected area 3 times a day Drug Name: ibuprofen 800 mg oral tablet Instructions: 1 tab(s) orally 3 times a day SIGNIFICANT EVENTS: Clinical Events Description:Surgical Procedure Additional Notes:1. Total abdominal hysterectomy, bilateral salpingo-oophorectomy;2. ;3. ;4. ;5. Past Medical History Description:pneumonia Past Surgical History Description:hysterectomy Description:bladder sling CRITICAL CARE RESULTS: Recent Lab Results: I have reviewed these laboratory results: Complete Blood Count 02-Mar-2022 01:28:00 ResultValue White Blood Cell Count 7.2 Red Blood Cell Count 3.99 L HGB 12.9 HCT 38.4 MCV 96 MCHC 33.6 PLT 164 RDW-CV 12.1 Basic Metabolic Panel 02-Mar-2022 01:28:00 ResultValue Glucose, Serum 105 H NA 136 K 4.0 CL 101 Bicarbonate, Serum 26 Anion Gap, Serum 13 BUN 13 CREAT 0.81 GFR Female 89 Calcium, Serum 9.4 HCG, Beta Quantitative 02-Mar-2022 01:28:00 ResultValue HCG, Beta Quantitative 2 Influenza A + B, PCR 02-Mar-2022 00:23:00 ResultValue Influenza A PCR NOT DETECTED Reference Range: Not Detected Respiratory virus testing is performed routinely by PCR for Influenza A/B and RSV. Not Detected results do not preclude Influenza (more content not included)... [facility] Risk Screen - Adult Emergenc yon 03-02-2022 Risk Screen - Adult Emergency Preferred Language: Preferred Language: Preferred Language for Discussing Health Care (patient/designee)Maltese Patient Preferred Pharmacy: Patient Preferred Pharmacy Statement: I have reviewed and updated the patient's preferred pharmacy selection for today's visit. Advanced Directives: Advance Directive/DNRno Family Violence Adult: Abuse Screen: Are you or have you been threatened or abused physically, emotionally, or sexually by anyoneno Learning Assessment (Patient): Learning Assessment (Patient): Patient is Able to be Assessed for Learningyes Factors Influencing Readiness to Learninterest in learning Factors that Impact Ability to Learnnone Devices/Methods Used to Communicatenone Learning Preferencesverbal instruction; written material Cultural Considerationsnone Developmental Considerationsnone Congregational Considerationsnone Learning Assessment (Other Learner): Learning Assessment (Other Learner): Other learner availableno Pressure Injury/TB/Substance: Pressure Injury: Do you have a coughno Smoking Statusformer smoker Alcohol Useoccasionally Drug Usedenies Drug 2 Usedenies Admission Risk Screen: Significant IndicatorsComplete CAGE: CAGE: Is this an injured patient at a Trauma Center ([facility] [place]auna/Chapin/Farrah/Christian Antunez/Chantel): no Electronic Signatures: Virgen Doty (RASHID PRN) (Signed 01-Mar-2022 23:53) Authored: Preferred Language, Patient Preferred Pharmacy, Advanced Directives, Family Violence Adult, Learning Assessment (Patient), Learning Assessment (Other Learner), Pressure Injury/TB/Substance, Pressure Injury, CAGE Last Updated: 01-Mar-2022 23:53 by Virgen Doty (RASHID PRN) [facility] Triage - EDon 03-02-2022 Triage - ED Quick Triage: Are You no Are You Currently Breastfeedingno Chart Review: ARRIVAL INFORMATION Mode of Arrival: private vehicle CHIEF COMPLAINT IRENE MAIN is a Female patient with a chief complaint of sore throat ( patient tongue was sore and then thursday it became swollen. patient states now her throat hurts to talk and swallow. denies new food or medications. patient also has right side ear pain.). Onset of the Complaint: 27-Feb-2022 Triage Date/Time: 01-Mar-2022 23:03 THELMA: 4 Pain Rating (0-10): 10 = Severe Vital Signs: Temperature: 100.8F ( 38.2C) taken oral Blood Pressure: 157/71 Mean: Heart Rate: 92 Respiratory Rate: 18 Pulse Oximetry: 95% on room air, no respiratory support. Height: 5 feet 0.50 inches. 153.6 CM Weight: 170.4 pounds. Calculated 77.3 kg. 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 Symptoms Are Negative For: anorexia, congestion, cough, FB sensation, laryngitis, mouth sores (surgery to remove two teeth, jan 29) and postnasal drip. Risk Screens Suicide Risk Screen In the Past Month: Have you wished you were or wished you could go to sleep and not wake up no In the Past Month: Have you had any actual thoughts of killing yourself no In Your Lifetime: Have you ever done anything, started to do anything, or prepared to do anything to end your life no Interventions: Lyons Fall Interventions: LOW INTERVENTIONS: *patient oriented to surroundings and call system, * patient/family falls education completed and documented, *patients fall status communicated during bedside handoff, *whiteboard updated, *mode of toileting discussed with patient, *bed in low position with brakes locked, *call light in reach, * non-skid footwearMODERATE INTERVENTIONS: *Low Interventions Plus: * falls risk band/sticker applied to patient, *yellow non-skid footwear, *instruct to call for assistance before getting out of bed, *bed/chair/bedside commode/toilet alarms, *sensory devices/ambulatory aides available and in reach, *medications reviewed for potential side effects and care planning. and strongly recommended: gait belts with ambulation TRAVEL HISTORY Travel History Coronavirus Screening: no exposure or symptoms Travel Exposure History: NO travel to International locations in the past 30 days PAIN Pain Scale Used: ARPITA Pain Rating (0-10): 10 = Severe Past Medical History: Past Medical History Reviewedyes Electronic Signatures: Virgen Doty) (Signed 02-Mar-2022 01:27) Authored: Quick Triage, Risk Screens, Pain, Travel History, Chart Review, Scores, Past Medical History Last Updated: 02-Mar-2022 01:27 by Virgen Doty (RN PRN) [facility] Coronavirus 2019 RNA by PCR, Symptomaticon 03-01-2022 Coronavirus 2019 RNA by PCR, Symptomatic Not detected Normal See Below [facility] Work [facility]: Comment on above: SOURCE: Nasal, Nasop haryngealReference Range: Not Detected.This test has received FDA Emergency Use Authorization (EUA) and has been verified by [facility]. This test is only authorized for the duration of time that circumstances exist to justify the authorization of the emergency use of in vitro diagnostic tests for the detection of SARS-CoV-2 virus and/or diagnosis of COVID-19 infection under section 564(b)(1) of the Act, 21 U.S.C. 360bbb-3(b)(1), unless the authorization is terminated or revoked sooner. [facility] is certified under CLIA-88 as qualified to perform high complexity testing. Testing is performed in the [facility] laboratory located at [address] [place] [address].SARS-CoV-2/Flu/RSV Multiplex Test: Fact sheet for providers: https://www.fda.gov/media/395566/downloadFact sheet for patients: https://www.fda.gov/media/937418/download GROUP A STREP, PCRon 022 S. pyogenes Ag Ql (Throat) Not detected See Below [facility] Work Phone: Comment on above: SOURCE: ThroatRefere nce Range: Not Detected This test was performed utilizing an FDA-cleared rapid nucleic acid amplification by PCR to qualitatively detect Group A Streptococci from throat swab specimens without the need for culture confirmation of negative results. Follow Up (Breast Surgery)on 11-14-2021 Follow Up (Breast Surgery) No report was sent [facility] LMPon 10-29-2021 Last menstrual period start date Hysterectomy 2019 [facility] [address] Work Phone: Laboratory - Cytologyon 10-14 Cytology report Cyto stain.thin prep Doc (Cvx/Vag) [facility] [address] Work Phone: DRYING RACK CHANGER - Office Visiton 10-14 DRYING RACK CHANGER - Office Visit Diagnoses/Problems Assessed LGSIL Pap smear of vagina (795.13) (R87.622) Orders PAP HOUSE OFFICER, Cytology; Status:In Progress - Specimen/Data Collected,Retrospective Authorization; Done: [id number] Last Menstrual Period (LMP): : Hysterectomy 2019 PAP - Site : VAGINAL Cytology Order : ThinPrep PAP, Diagnostic, HPV CoTest - Include Genotyping Provider Impressions 1. History of Pap showing mild dysplasia 2. Repeat Pap performed today Follow-up in 6 months for annual exam and Pap. Chief Complaint Patient is here for repeat pap. Last pap showed LGSIL. Patient has a OSCAR in 2019. History of Present IllnessPatient presents for repeat Pap smear due to mild dysplasia. Patient had previous hysterectomy. 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) Breast cancer screening, high risk patient (V76.10) (Z12.39) Breast pain in female (611.71) (N64.4) Cough (786.2) (R05.9) Dense breast tissue (793.82) (R92.2) Encounter for screening mammogram for breast cancer (V76.12) (Z12.31) Herpes simplex virus (HSV) infection (054.9) (B00.9) LGSIL on Pap smear of cervix (795.03) (R87.612) LGSIL Pap smear of vagina (795.13) (R87.622) Menopausal symptoms (627.2) (N95.1) Migraines (346.90) (G43.909) Postoperative follow-up (V67.00) (Z09) Vaginal mass (625.8) (N89.8) Vaginal Papanicolaou smear (V76.47) (Z12.72) Vulvar lesion (624.8) (N90.89) Past Medical History Problems History of Date of last menstrual period (LMP) unknown (V49.89) (Z78.9) History of Examination of eyes and vision (V72.0) (Z01.00) History of dental examination (V15.89) (Z92.89) History of screening mammography (V15.89) (Z92.89) 06/09/2018 History of Normal vaginal delivery (650) (O80) 1998_40weeks 1999_40weeks 2002_40weeks History of Pap test, as part of routine gynecological examination (V76.2) (Z01.419) 04/02/2021: LGSIL 02/06/2020:Negative 03/15/2018; WNL Surgical History Problems History of Tooth extraction History of Total hysterectomy abdominal 12/30/2018 Family History Mother Family history of migraine headaches (V17.2) (Z82.0) Father Family history of diabetes mellitus (V18.0) (Z83.3) Diabetes Mellitus Type 2 Family history of hypertension (V17.49) (Z82.49) Sister Family history of migraine headaches (V17.2) (Z82.0) Grandparent Family history of migraine headaches (V17.2) (Z82.0) Paternal Grandmother Family history of Primary malignant neoplasm of female breast Aunt x2 Unknown of onset age Paternal Aunt Family history of Primary malignant neoplasm of female breast Aunt x2 Unknown of onset age Uncle Family history of Aneurysm Social History Problems Consumes alcohol (V49.89) (Z72.89) Occationally Does not have living will Does not use illicit drugs (V49.89) (Z78.9) Former smoker (V15.82) (Z87.891) No No Living Will Sexually active Allergies Medication Penicillins Hives;; Updated By: Irene Lacy; 01/28/2019 10:22:10 AM Current Meds Medication NameInstruction IBU 800 MG Oral TabletTAKE 1 TABLET 3 times daily PRN SUMAtriptan Succinate 100 MG Oral TabletTAKE 1 TABLET FOR MIGRAINE RELIEF. MAY REPEAT 2 HOURS LATER. MAXIMUM 200MG/DAY. valACYclovir HCl - 500 MG Oral TabletTAKE 1 TABLET DAILY. Vitals Vital Signs Recorded: 29Oct2021 03:36PM Ahnlzlhp109 Gcumfsmzp03 Height5 ft 5 in Nhnodm51.1 kg BMI Nhksvpatcd06.55 kg/m2 BSA Calculated1.83 LMPHysterectomy 2019 Physical Exam PHYSICAL EXAMINATION: Well-developed, well nourished, in no acute distress, alert and oriented x three, is pleasant and cooperative. HEENT: Clear. Pupils equal, round and reactive to light and accommodation. Extraocular muscles are intact. Oral mucosa pink without exudate. NECK: No lymphadenopathy, no thyromegaly. LUNGS: Clear bilaterally. HEART: Regular rate and rhythm without murmurs. ABDOMEN: Normoactive bowel sounds, soft and nontender, no guarding or rebound tenderness, no CVA tenderness. EXTREMITIES: No clubbing, cyanosis or edema. NEUROLOGIC: Cranial nerves II-XII grossly intact. : Normal external female genitalia. Normal vulva and vagina. Normal urethral meatus, urethra and bladder. Noted surgical absence of the cervix and uterus. Well-healed vaginal cuff. Pap smear performed today. 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) Orders Breast cancer screening, high risk patient, Dense breast tissue MRI Breast Bilateral with contrast fast screening (SELF PAY); Status:Hold For - Scheduling; Requested for:[id number]; Perform:[facility]; Due:[id number];Ordered; For:Breast cancer screening, high risk patient, Dense breast tissue; Ordered By:Kathleen Gardner; Radiologist to Determine Optimal Study : Y Does the patient have a Cochlear Implant, Pacemaker, Defibrilator, Pacing Wire, Brain Aneurysm Clip, Implanted Nerve or Bone Graft Simulator, Implanted Breast Tissue Patient Financial Rep, Glucose Monitor, or Neulasta Device? : No Is the patient or breast feeding? : No What are the patient's signs and symptoms? : DEISY gene mutation, dense breasts Patient Discussion/Summary Ms. Main presents today to discuss management of her breasts with her DEISY pathogenic variant. I shared with her the risk calculator from [employer] utilizing her age of 45, her history of hysterectomy/oophorectomy, and her DEISY variant. She has a lifetime risk (up to age 85) of breast cancer of 36.78% compared to 12.35% for an average risk woman. Her 5 year risk is 5.9% and her 10 year risk is 14.69%. She understands she is also at risk for colorectal cancer, pancreatic cancer, and gastric cancer, though these risks are quite low. We discussed that while her risk is elevated above the general population, it is not significantly elevated to where we would generally recommend risk reducing mastectomy. She has not been seen by a high-risk provider up until this point and had not discussed details of high risk screening and chemoprevention. She is highly motivated to lower her risk if possible. We discussed that typically alternating imaging every six months with mammogram and MRI would be recommended for screening, which will not lower her risk of breast cancer, but will allow us to identify a breast cancer at its earliest stage if it would occur. We then discussed that oophorectomy has lowered her cancer risk by minimizing her estrogen exposure. In addition to this, she may be an appropriate candidate for chemoprevention. We discussed that taking tamoxifen can continue to lower her risk by half. She would be very interested in discussing this further. We then discussed that risk-reducing mastectomy would lower her risk by 90-95%, but that it does not eliminate the risk for future breast cancer. We discussed the risks of mastectomy including asymmetry, loss of sensation, nipple and/or skin necrosis, need for multiple surgeries for revisions, infection and reconstruction loss. She does not feel she is ready to proceed with mastectomy at this time and I agree as there is insufficient evidence to recommend risk-reducing mastectomy for DEISY pathogenic variants. She would like to proceed with augmentation/mastopexy to correct her asymmetry and ptosis,which I think would be very appropriate for her and does not increase her cancer risk or prevent us from being able to screen her breast tissue. I provided her with names of plastic surgeons to discuss this further. She would be interested in doing this in the winter after pool/motorcycle season. She will be due for her next screening imaging in November. I have recommended she see our workforce investment act career manager in our high risk prevention clinic at this time and have ordered FAST MRI for screening. She will contact me with questions or concerns in the meantime. I would be happy to see her back at any time should a surgical need arise. 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 for surgical consultation for risk reducing bilateral breast mastectomies. 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 She denies breast pain, palpable mass, skin changes or nipple discharge. She has family history of breast cancer in a paternal aunt, paternal grandmother and paternal great aunt. BREAST IMAGIN06/12/2021 Screening mammogram demonstrates heterogeneously dense tissue, BI-RADS Category 1, negative. No breast MRI's performed. Current screening recommendations have been for q6 month mammogram. REPRODUCTIVE HEALTH: menarche at 11, surgical menopause at age 43, s/p OSCAR-BSO for fibroids and menorrhagia with benign pathology, with first at 22, with no hormone exposure such (more content not included)... [facility] M[facility] - Screening Mammogram w / Tomosynthesison 06-12-2021 MG Breast Screening [facility] [address] Work Phone: [phone] LMPon 04-17-2021 Last menstrual period start date 2018 [facility] [address] Work Phone: Laboratory - Cytologyon 03-16 Cytology report Cyto stain.thin prep Doc (Cvx/Vag) [facility] [address] Work Phone: Tobacco Screening.on 022 Last menstrual period start date 2018 [facility] [address] Work Phone: Tobacco use status CPHS b) No [facility] [address] Work Phone: NOVEL CORONAVIRUSon 03-16-19 22 PERFORMED BY PAPITO [facility] Comment on above: Performed By: #### C COVID #### [place] [address] SARS-CoV-2 (COVID-19) RNA WILEY+probe Ql (Unsp spec) Not detected Normal NOT DETECTED [facility] Comment on above: Result Comment: Nega tive results do not preclude SARS-CoV-2 infection and should not be used as the sole basis for treatment or other patient management decisions. Optimum specimen types and timing for peak viral levels during infections caused by SARS-CoV-2 has not been determined. The possibility of a false negative result should especially be considered if the patient's recent exposures or clinical presentation suggest that SARS-CoV-2 infection is probable, and diagnostic tests for other causes of illness (e.g., other respiratory illness) are negative. Collection of a new specimen and re-testing may be necessary if the patient is critically ill or clinically deteriorating. Performed By: #### C COVID #### [place] [address] NARRATIVE This test was perfor med using isothermal WILEY and has been approved as Emergency Use Authorization (EUA) for the qualitative detection [id number] nucleic acid. [facility] Comment on above: Performed By: #### C COVID #### [place] [address] SARS-COV-2 RAPIDon 2 Glass Deposition Tender Cyto stain Nom (Cvx/Vag) [ID] [facility] NARRATIVE -1 This test was perfor med using isothermal WILEY and has been approved as Emergency Use Authorization (EUA) for the qualitative detection [id number] nucleic acid. [facility] SARS-CoV-2 (COVID-19) RNA WILEY+probe Ql (Unsp spec) Not detected NOT DETECTED [facility] Comment on above: Negative results do not preclude SARS-CoV-2 infection and should not be used as the sole basis for treatment or other patient management decisions. Optimum specimen types and timing for peak viral levels during infections caused by SARS-CoV-2 has not been determined. The possibility of a false negative result should especially be considered if the patient's recent exposures or clinical presentation suggest that SARS-CoV-2 infection is probable, and diagnostic tests for other causes of illness (e.g., other respiratory illness) are negative. Collection of a new specimen and re-testing may be necessary if the patient is critically ill or clinically deteriorating. [employer] LMPon 01-04-2021 Last menstrual period start date HYSTER [facility] [address] Work Phone: [phone] No Panel Informationon 01-04 [facility] [address] Work Phone: [phone] Coronavirus 2019 RNA by PCR, Symptomaticon 11-14-2020 Date and time of symptom onset 20201112 1 [employer] Work Phone: Coronavirus 2019 RNA by PCR, Symptomatic Detected Abnormal See Below [employer] Work Phone: Comment on above: SOURCE: Nasal, Nasop haryngealReference Range: Not Detected.This assay is designed to detect the N, ORF1ab and/or S genes of SARS-CoV-2 via nucleic acid amplification. A Negative (NOT DETECTED) result does not preclude 2019-nCoV infection since the adequacy of sample collection and/or low viral burden may result in presence of viral nucleic acids below the clinical sensitivity of this test method. Negative (NOT DETECTED) result should not be used as the sole basis for treatment or other patient management decisions. Rather negative results should be combined with clinical observations, patient history, and epidemiological information to make patient management decisions.Fact sheet for providers: https://www.fda.gov/media/377641/downloadFact sheet for patients: https://www.fda.gov/media/010412/downloadThis test has received FDA Emergency Use Authorization (EUA) and has been verified by [facility] ([facility]). This test is only authorized for the duration of time that circumstances exist to justify the authorization of the emergency use of in vitro diagnostic tests for the detection of SARS-CoV-2 virus and/or diagnosis of COVID-19 infection under section 564(b)(1) of the Act, 21 U.S.C. 360bbb-3(b)(1), unless the authorization is terminated or revoked sooner. [facility] is certified under CLIA-88 as qualified to perform high complexity testing. Testing is performed in the [facility] laboratories located at [address] [place] [address].COVID CALLED TO CARRIE ARROYO, 11/15/2020 11:18 Tobacco Screening.on 021 Tobacco use status [facility] b) No [employer] Phone: [place] Mamm Screen w/CAD if perf and 3D Bilon 06-10-2018 Bilirubin.direct [Mass/Vol] Exam Date/Time: 06/09/2018 13:30 EDT Reason for Exam: PELVIC PAIN BASELINE SCREENING 3D/PRANAV;Screening Report STUDY: Digital mammography screening with pranav; 06/09/2018 1:30 pm ACCESSION NUMBER(S): [id number] ORDERING CLINICIAN: Laura Phelps INDICATION: Screening. COMPARISON: Comparison is made to prior digital mammograms dated04/06/2017 FINDINGS: CC and MLO 2D digital mammograms and digital breast tomosynthesis images were obtained of the bilateral breasts. 3-D volume images were reconstructed in 4 views at an independent workstation as 1 mm slices through the breasts in both the CC and MLO projections. The breast tissue is heterogeneously dense, which may obscure small masses. No discrete mass or focal asymmetry is identified. No suspicious microcalcifications or foci of architectural distortion are seen. There has been no significant change. This study was interpreted with CAD. IMPRESSION: No mammographic evidence of malignancy. BI-RADS CATEGORY: Category: 1 - Negative. Recommendation: Normal Interval Follow-up, Over Age 40. Recall Interval: 12 Months. Breast Density: Heterogeneous. FINAL REPORT Dictated: 06/10/2018 8:25 am Valdo Calero MD Signed (Electronic Signature): 06/10/2018 8:25 am Signed by: Valdo Calero MD Technologist: CHRISTIAN Assessment: BI-RADS Category 1-Negative Recommendation: Normal interval follow-up [facility] US Pelvis Non-OB Completeon 06-09-2018 US Pelvis Non-OB Complete Exam Date/Time: 06/09/2018 13:35 EDT Reason for Exam: PELVIC PAIN BASELINE SCREENING 3D/PRANAV;Other (please specify) Report STUDY: US Pelvis Non-OB Complete; US Transvaginal Non-OB; 06/09/2018 1:35 pm INDICATION: Menometrorrhagia COMPARISON: None. ACCESSION NUMBER(S): [id number]; [id number] ORDERING CLINICIAN: Laura Phelps TECHNIQUE: Multiple multiplanar static hinkle scale, color and spectral waveform sonographic images of the pelvis were obtained. Transabdominal and endovaginal ultrasound was performed. FINDINGS: UTERUS: The uterus is diffusely heterogeneous in appearance, with multiple large fibroids identified. The largest measures at 4.9 x 5.5 x 4.0 cm. The uterus measures at 11.7 cm in length and 7.1 x 8.7 cm in AP and transverse diameters. ENDOMETRIUM: The endometrium is not well visualized secondary to multiple large fibroids RIGHT ADNEXA: The right ovary is not well visualized. LEFT ADNEXA: The left ovary measures at 5.1 x 2.7 x 3.9 cm. A cyst is seen within the left ovary, measuring at up to 2.8 x 2.7 x 3.4 cm in diameter. Normal-appearing color Doppler flow is seen in the left ovary. No left adnexal masses identified. CUL DE SAC: No free fluid is identified. IMPRESSION: 1. Diffusely heterogeneous uterus with multiple large fibroids, as above. 2. Endometrium not well visualized secondary to multiple large fibroids. Exam Date/Time: 06/09/2018 13:35 EDT Report 3. Cyst in the left ovary, likely physiological in nature. FINAL REPORT Dictated: 06/09/2018 1:55 pm Valdo Calero MD Signed (Electronic Signature): 06/09/2018 1:55 pm Signed by: Valdo Calero MD Technologist: MATT [facility] US Transvaginal Non-OBon US Transvaginal Non-OB Exam Date/Time: 06/09/2018 13:35 EDT Reason for Exam: PELVIC PAIN;Other (please specify) Report STUDY: US Pelvis Non-OB Complete; US Transvaginal Non-OB; 06/09/2018 1:35 pm INDICATION: Menometrorrhagia COMPARISON: None. ACCESSION NUMBER(S): [id number]; [id number] ORDERING CLINICIAN: Laura Phelps TECHNIQUE: Multiple multiplanar static hinkle scale, color and spectral waveform sonographic images of the pelvis were obtained. Transabdominal and endovaginal ultrasound was performed. FINDINGS: UTERUS: The uterus is diffusely heterogeneous in appearance, with multiple large fibroids identified. The largest measures at 4.9 x 5.5 x 4.0 cm. The uterus measures at 11.7 cm in length and 7.1 x 8.7 cm in AP and transverse diameters. ENDOMETRIUM: The endometrium is not well visualized secondary to multiple large fibroids RIGHT ADNEXA: The right ovary is not well visualized. LEFT ADNEXA: The left ovary measures at 5.1 x 2.7 x 3.9 cm. A cyst is seen within the left ovary, measuring at up to 2.8 x 2.7 x 3.4 cm in diameter. Normal-appearing color Doppler flow is seen in the left ovary. No left adnexal masses identified. CUL DE SAC: No free fluid is identified. IMPRESSION: 1. Diffusely heterogeneous uterus with multiple large fibroids, as above. 2. Endometrium not well visualized secondary to multiple large fibroids. Exam Date/Time: 06/09/2018 13:35 EDT Report 3. Cyst in the left ovary, likely physiological in nature. FINAL REPORT Dictated: 06/09/2018 1:55 pm Valdo Calero MD Signed (Electronic Signature): 06/09/2018 1:55 pm Signed by: Valdo Calero MD Technologist: MATT [facility] IGP W/hpv Rfx [id number] 03-24 Diagnosis: See Ref Lab Report [facility] Comment on above: Performed By: #### [id number] #### [place] [address] Lab Miscellaneouson 03-15-20 18 Status See Ref Lab Report [facility] Comment on above: Order Comment: famil y h/o breast cancer, pt linh bring the kit Performed By: #### [id number] #### [facility] [address] [place] [address] Test Name myriad lab draw Normal [facility] Comment on above: Order Comment: famil y h/o breast cancer, pt linh bring the kit Performed By: #### [id number] #### [facility] [employer] [address] [address] [place] [address] Pathology ([facility])on 03-15-2018 Pathology ([facility]) FINAL GYNECOLOGIC CY TOLOGY [id number] ADEQUACYSatisfactory for Evaluation. Endocervical cells/transformation zone componentpresent.Sample is obscured by blood.Squamous metaplastic cells are identified.GENERAL CATEGORIZATIONNegative for Intraepithelial Lesion or MalignancyCOMMENTSample has been treated with glacial acetic acid for excessive blood, debris,inflammation and/or lubricant.CLINICAL HISTORYLMP: 03/15/2018SPECIMEN(A) SCREENING CERVICAL/ENDOCERVICAL THIN PREP VIALPerformed at [facility], [address] [place], [place] [address]Screened by: Signed Out by: DAVID PATEL [employer] Reported: 03/23/2018 Normal [facility] Comment on above: Performed By: #### G YN ####[facility] [address] [place] [address] Vital Signs Date Time Vital Sign Value Performing Clinician Facility 08-04-2023 09:29040 Body height 165.1 cm Ab Puri APRN-UNIFORM DESIGNER Work Phone: [facility] 08-04-2023 09:290400 Body mass index (BMI) [Ratio] 29.12 kg/m2 Ab Puri APRN-[employer]IFORM DESIGNER Work Phone: [facility] 08-04-2023 09:29040 Body weight 79.38 kg Ab Puri APRN-UNIFORM DESIGNER Work Phone: [facility] 08-04-2023 09:29040 Diastolic blood pressure 74 mm[Hg] Ab Puri APRN-UNIFORM DESIGNER Work Phone: [facility] 08-04-2023 09:29-0400 Heart rate 71 /min Ab Puri DIRECTOR OF STRATEGIC SOURCING-[employer]IFORM DESIGNER Work Phone: [facility] 08-04-2023 09:29-0400 Respiratory rate 18 /min Ab Puri DIRECTOR OF STRATEGIC SOURCING-[employer]ORM DESIGNER Work Phone: [facility] 08-04-2023 09:29-0400 SaO2% (BldA) [Mass fraction] 94 % Ab Puri DIRECTOR OF STRATEGIC SOURCING-[employer]ORM DESIGNER Work Phone: [facility] 08-04-2023 09:29-0400 Systolic blood pressure 134 mm[Hg] Ab Puri DIRECTOR OF STRATEGIC SOURCING-[employer]ORM DESIGNER Work Phone: [facility] 04-17-2023 15:17-0500 Body height 165.1 cm Amanda Osborne MD Work Phone: [facility] 04-17-2023 15:17-0500 Body mass index (BMI) [Ratio] 29.27 kg/m2 Amanda Osborne MD Work Phone: [facility] 04-17-2023 15:17-0500 Body weight 79.79 kg Amanda Osborne MD Work Phone: [facility] 04-17-2023 15:17-0500 Diastolic blood pressure 76 mm[Hg] Amanda Osborne MD Work Phone: [facility] 04-17-2023 15:17-0500 Heart rate 52 /min Amanda Osborne MD Work Phone: [facility] 04-17-2023 15:17-0500 SaO2% (BldA) [Mass fraction] 98 % Amanda Osborne MD Work Phone: [facility] 04-17-2023 15:17-0500 Systolic blood pressure 110 mm[Hg] Amanda Osborne MD Work Phone: [facility] 02-24-2023 08:43-0500 Body height 165.1 cm Zenaida Silva MD Work Phone: [facility] 02-24-2023 08:43-0500 Body mass index (BMI) [Ratio] 29.82 kg/m2 Zenaida Silva MD Work Phone: [facility] 02-24-2023 08:43-0500 Body weight 81.28 kg Zenaida Silva MD Work Phone: [facility] 02-24-2023 08:43-0500 Diastolic blood pressure 72 mm[Hg] Zenaida Silva MD Work Phone: [facility] 02-24-2023 08:43-0500 Systolic blood pressure 136 mm[Hg] Zenaida Silva MD Work Phone: [facility] 05-07-2022 08:45-0500 Body height 165.1 cm Amanda Osborne Work Phone: [place] [address] [employer] Work Phone: 05-07-2022 08:45-0500 Body mass index (BMI) [Ratio] 27.99 kg/m2 Amanda Osborne Work Phone: [place] [address] [employer] Work Phone: 05-07-2022 08:45-0500 Body surface area Derived from formula 1.84 m2 Amanda Osborne Work Phone: [facility] [address] [address] Work Phone: 05-07-2022 08:45-0500 Body weight 76.3 kg Amanda Osborne Work Phone: [facility] [address] Work Phone: 05-07-2022 08:45-0500 Diastolic blood pressure 66 mm[Hg] Amanda Osborne Work Phone: [place] [address] [employer] Work Phone: 05-07-2022 08:45-0500 Systolic blood pressure 108 mm[Hg] Amanda Osborne Work Phone: [address] Work Phone: 03-10-2022 04:13-0500 Diastolic blood pressure 69 mm[Hg] Amanda Osborne Other Phone: [facility] 03-10-2022 04:13-0500 Heart rate 79 /min Amanda Osborne Other Phone: [facility] 03-10-2022 04:13-0500 Respiratory rate 18 /min Amanda Osborne Other Phone: [facility] 03-10-2022 04:13-0500 SaO2% (BldA) [Mass fraction] 94 % Amanda Osborne Other Phone: [facility] 03-10-2022 04:13-0500 Systolic blood pressure 110 mm[Hg] Amanda Osborne Other Phone: [facility] 03-05-2022 11:39-0500 Body height 165.1 cm Amanda Osborne Work Phone: [facility] Work Phone: 03-05-2022 11:39-0500 Body mass index (BMI) [Ratio] 28.64 kg/m2 Amanda Osborne Work Phone: [facility] Work Phone: 03-05-2022 11:39-0500 Body surface area Derived from formula 1.86 m2 Amanda Osborne Work Phone: [facility] Work Phone: 03-05-2022 11:39-0500 Body weight 78.08 kg Amanda Osborne Work Phone: [facility] Work Phone: 03-05-2022 11:39-0500 Diastolic blood pressure 68 mm[Hg] Amanda Osborne Work Phone: [facility] Work Phone: 03-05-2022 11:39-0500 Heart rate 78 /min Amanda Osborne Work Phone: [facility] Work Phone: 03-05-2022 11:39-0500 SaO2% (BldA) [Mass fraction] 93 % Amanda Osborne Work Phone: [facility] Work Phone: 03-05-2022 11:39-0500 Systolic blood pressure 100 mm[Hg] Amanda Osborne Work Phone: [facility] [employer] Phone: 03-02-2022 05:03-0500 Body temperature 99.5 [degF] Amanda Osborne Other Phone: [facility] 03-02-2022 05:03-0500 Diastolic blood pressure 62 mm[Hg] Amanda Longsdorf Other Phone: [facility] 03-02-2022 05:03-0500 Heart rate 100 /min Amanda Longsdorf Other Phone: [facility] 03-02-2022 05:03-0500 Respiratory rate 16 /min Amanda Longsdorf Other Phone: [facility] 03-02-2022 05:03-0500 SaO2% (BldA) [Mass fraction] 93 % Amanda Lisdorf Other Phone: [facility] 03-02-2022 05:03-0500 Systolic blood pressure 117 mm[Hg] Amanda Longsdorf Other Phone: [facility] 10-29-2021 15:36-0400 Body height 165.1 cm Amanda Osborne Work Phone: [place] [address] [employer] Work Phone: 10-29-2021 15:36-0400 Body mass index (BMI) [Ratio] 27.55 kg/m2 Amanda Núñezorf Work Phone: [place] [address] [employer] Work Phone: 10-29-2021 15:36-0400 Body surface area Derived from formula 1.83 m2 Amanda Osborne Work Phone: [place] [address] [employer] Work Phone: 10-29-2021 15:36-0400 Body weight 75.1 kg Amanda Osborne Work Phone: [place] [address] [employer] Work Phone: 10-29-2021 15:36-0400 Diastolic blood pressure 76 mm[Hg] Amanda Osborne Work Phone: [place] [address] [employer] Work Phone: 10-29-2021 15:36-0400 Systolic blood pressure 124 mm[Hg] Amanda Osborne Work Phone: [place] [address] [employer] Work Phone: 07-01-2021 12:55-0400 Body height 165.1 cm Amanda Núñezorf Work Phone: [facility] Work Phone: 07-01-2021 12:55-0400 Body temperature 98.2 [degF] Amanda Lisdorf Work Phone: ZY-Eysxrri[facility]hfvfbp[facility] Work Phone: 07-01-2021 12:55-0400 Diastolic blood pressure 78 mm[Hg] Amanda Osborne Work Phone: JW-Wxkejcq-ArskjxuSt[facility] [address] Work Phone: 07-01-2021 12:55-0400 Heart rate 66 /min Amanda Osborne Work Phone: BY-Htlrrzr-Iabfspl[facility] [address] Work Phone: 07-01-2021 12:55-0400 Systolic blood pressure 127 mm[Hg] Amanda Osborne Work Phone: TV-Onraidx-HgvflzsSt[facility] [address] Work Phone: 04-17-2021 13:16-0500 Body height 165.1 cm Amanda Osborne Work Phone: [place] [address] [employer] Work Phone: 04-17-2021 13:16-0500 Body mass index (BMI) [Ratio] 25.31 kg/m2 Amanda Osborne Work Phone: [place] [address] [employer] Work Phone: 04-17-2021 13:16-0500 Body surface area Derived from formula 1.76 m2 Amanda Osborne Work Phone: [place] [address] [employer] Work Phone: 04-17-2021 13:16-0500 Body temperature 97.7 [degF] Amanda Osborne Work Phone: [place] [address] [employer] Work Phone: 04-17-2021 13:16-0500 Body weight 69 kg Amanda Osborne Work Phone: [place] [address] [employer] Work Phone: 04-17-2021 13:16-0500 Diastolic blood pressure 64 mm[Hg] Amanda Osborne Work Phone: [place] [address] [employer] Work Phone: 04-17-2021 13:16-0500 Systolic blood pressure 110 mm[Hg] Amanda NúñezSwagapalooza Work Phone: [place] [address] [employer] Work Phone: 04-02-2021 08:44-0500 Body height 165.1 cm Amanda Osbrone Work Phone: [place] [address] [employer] Work Phone: 04-02-2021 08:44-0500 Body mass index (BMI) [Ratio] 25.17 kg/m2 Amanda NúñezSwagapalooza Work Phone: [place] [address] [employer] Work Phone: 04-02-2021 08:44-0500 Body surface area Derived from formula 1.76 m2 Amanda Osborne Work Phone: [place] [address] [employer] Work Phone: 04-02-2021 08:44-0500 Body temperature 98.2 [degF] Amanda Osborne Work Phone: [place] [address] [employer] Work Phone: 04-02-2021 08:44-0500 Body weight 68.59 kg Amanda Osborne Work Phone: [place] [address] [employer] Work Phone: 04-02-2021 08:44-0500 Diastolic blood pressure 64 mm[Hg] Amanda Lisdorf Work Phone: [place] [address] [employer] Work Phone: 04-02-2021 08:44-0500 Systolic blood pressure 112 mm[Hg] Amanda Lisdorf Work Phone: [place] [address] [employer] Work Phone: 03-16-2021 14:44-0500 Body height 165.1 cm Monica Kwan PA Work Phone: [facility] 03-16-2021 14:44-0500 Body mass index (BMI) [Ratio] 25.14 kg/m2 Monica Bullardner PA Work Phone: [facility] 03-16-2021 14:44-0500 Body temperature 99.3 [degF] Monica Bullardner PA Work Phone: [facility] 03-16-2021 14:44-0500 Body weight 68.54 kg Monica Bullardner PA Work Phone: [facility] 03-16-2021 14:44-0500 Diastolic blood pressure 70 mm[Hg] Monica Bullardner PA Work Phone: [facility] 03-16-2021 14:44-0500 Heart rate 77 /min Monica Kwan PA Work Phone: [facility] 03-16-2021 14:44-0500 Respiratory rate 16 /min Monica Bullardner PA Work Phone: [facility] 03-16-2021 14:44-0500 SaO2% (BldA) [Mass fraction] 96 % Monica Bullardner PA Work Phone: [facility] 03-16-2021 14:44-0500 Systolic blood pressure 116 mm[Hg] Monica Bullardner PA Work Phone: [facility] 01-04-2021 08:38-0400 Body height 165.1 cm Amanda Osborne Work Phone: [facility] [employer] Work Phone: 01-04-2021 08:38-0400 Body mass index (BMI) [Ratio] 23.96 kg/m2 Amanda Núñezcuate Work Phone: [facility] [employer] Work Phone: 01-04-2021 08:38-0400 Body surface area Derived from formula 1.72 m2 Amanda Osborne Work Phone: [address] Work Phone: 01-04-2021 08:38-0400 Body temperature 97.3 [degF] Amanda Osborne Work Phone: [address] Work Phone: 01-04-2021 08:38-0400 Body weight 65.32 kg Amanda Osborne Work Phone: [address] Work Phone: 01-04-2021 08:38-0400 Diastolic blood pressure 74 mm[Hg] Amanda Osborne Work Phone: [address] Work Phone: 01-04-2021 08:38-0400 Systolic blood pressure 120 mm[Hg] Amanda Osborne Work Phone: [address] Work Phone: 10-30-2020 16:38-0400 Body height 165.1 cm Amanda Osborne Work Phone: [facility] Work Phone: 10-30-2020 16:38-0400 Body mass index (BMI) [Ratio] 24.37 kg/m2 Amanda Osborne Work Phone: [facility] Work Phone: 10-30-2020 16:38-0400 Body surface area Derived from formula 1.73 m2 Amanda Osborne Work Phone: [facility] Work Phone: 10-30-2020 16:38-0400 Body temperature 98.2 [degF] Amanda Osborne Work Phone: [facility] Work Phone: 10-30-2020 16:38-0400 Body weight 66.43 kg Amanda Blair Olena Work Phone: [facility] Work Phone: 10-30-2020 16:38-0400 Diastolic blood pressure 70 mm[Hg] Amanda Blair Olena Work Phone: [facility] Work Phone: 10-30-2020 16:38-0400 Heart rate 66 /min Amandafox Osborne Work Phone: [facility] Work Phone: 10-30-2020 16:38-0400 SaO2% (BldA) [Mass fraction] 96 % Amandaviola Osborne Work Phone: [facility] Work Phone: 10-30-2020 16:38-0400 Systolic blood pressure 116 mm[Hg] Amanda Osborne Work Phone: [facility] Work Phone: Encounters Encounter Date Encounter Type Care Provider Facility Start: 08-04-2023 End: [facility]04[facility] Start: 08-04-2023 End: 08-04-2023 Patient encounter procedure Ab Puri DIRECTOR OF STRATEGIC SOURCING-UNIFORM DESIGNER Work Phone: [facility] Comment on above: Cutaneous abscess of left axilla (Primary Dx) Start: 04-17-2023 End: 04-17-2023 ambulatory AMANDA Blair [facility] Start: 04-17-2023 End: 04-17-2023 Office outpatient visit 25 minutes Amanda Osborne MD Work Phone: [facility] Comment on above: Left leg swelling (P rimary Dx); Esophagitis, unspecified without bleeding; Herpes; Migraine without status migrainosus, not intractable, unspecified migraine type Start: 02-24-2023 End: 02-24-2023 ambulatory ZENAIDA SILVA [facility] Ambulatory Start: 02-24-2023 End: 02-24-2023 Office outpatient visit 15 minutes Zenaida Silva MD Work Phone: [facility] Comment on above: Vaginal Pap smear; Vaginal Pap smear with LGSIL Start: 11-04-2022 ambulatory MD ZENAIDA SILVA Facility:[id number] Start: 05-16-2022 Chart Update Amanda cardona Work Phone: [address] Work Phone: Start: 05-07-2022 Encounter for gynecological examination (general) (routine) without abnormal findings MD ZENAIDA SILVA [facility] Start: 05-07-2022 Encounter for gynecological examination (general) (routine) without abnormal findings MD ZENAIDA SILVA Facility:[facility] Start: 05-07-2022 Periodic preventive med est patient 40-64yrs Amanda Osborne Work Phone: [address] Work Phone: Start: 05-07-2022 ambulatory MD ZENAIDA SILVA Facility:[facility] Start: 03-11-2022 ambulatory OSMIN [facility] Start: 03-10-2022 End: 03-10-2022 Emergency department patient visit Sean Malagon [facility] Emergency 15 Start: 03-06-2022 AUDIT Amanda cardona Work Phone: [facility] Work Phone: Start: 03-05-2022 Office outpatient vi sit 15 minutes Amanda Osborne Work Phone[facility] Work Phone: Start: 03-05-2022 ambulatory MD AMANDA OSBORNE Facility:[id number] Start: 03-02-2022 End: 12-18-2022 Emergency department patient visit Fanny Mckeon [facility] Emergency 14 Start: 11-14-2021 ambulatory MD AMANDA OSBORNE Facility:[id number] Start: 11-14-2021 FUV, Provider: Irene Finley, Status: Pen, Time: 1:00 PM Amanda Osborne Work Phone: [facility] [employer] Work Phone: Start: 11-12-2021 Chart Update Amanda Schneider dulce Work Phone: [facility] [employer] Work Phone: Start: 11-11-2021 Chart Update Amanda Schneider dulce Work Phone: [facility] [employer] Work Phone: Start: 07-01-2021 Office consultation new/estab patient 60 min Amanda Osborne Work Phone: [facility] Work Phone: Start: 07-01-2021 Patient encounter procedure Amanda Osborne Work Phone: [facility] Work Phone: Start: 06-12-2021 Chart Update Amanda Schneider dulce Work Phone: [facility] [employer] Work Phone: Start: 06-12-2021 ambulatory Amanda Osborne Facility:[id number] Start: 04-17-2021 Patient encounter procedure Amanda Osborne Work Phone: [facility] [employer] Work Phone: Start: 04-05-2021 Chart Update Amanda Schneider dulce Work Phone: [facility] [employer] Work Phone: Start: 03-16-2021 ambulatory AMANDA OSBORNE [facility] Start: 03-16-2021 End: 03-16-2021 Office outpatient new 30 minutes Monica ROGERS Work Phone: [facility] [place] Comment on above: Congestion of nasal sinus (Primary Dx); Acute maxillary sinusitis, recurrence not specified; Cough Start: 01-08-2021 Chart Update Amanda cardona Work Phone: [facility] [employer] Work Phone: Start: 01-04-2021 Patient encounter procedure Amanda Osborne Work Phone: [place] [address] [employer] Work Phone: Start: 11-15-2020 AUDIT Amanda Rossy Jennie yeseniadorf Work Phone: -[facility] Work Phone: Start: 11-15-2020 Chart Update Amanda Rossy Jennie blainerf Work Phone: -[facility] Work Phone: Start: 11-14-2020 Office outpatient vi sit 15 minutes Amanda Rossy Benjamindrew Work Phone: [facility] Work Phone: Start: 11-14-2020 Patient encounter procedure Amanda Blair Benjamindrew Work Phone: [facility] Work Phone: Start: 10-30-2020 Office outpatient vi sit 15 minutes Amanda Rossy Benjamindrew Work Phone: -[facility] Work Phone: Start: 10-24-2020 AUDIT Amanda Rossy Jennie yeseniadorf Work Phone: [facility] Work Phone: Start: 05-15-[address] [facility] Ambulatory Cancer cervix - scre ening done Amanda Núñezcuate Work Phone: [facility] Work Phone: Comment on above: 02/06/2020:Negative1 ; WNL; Encounter for gynecological examination (general) (routine) without abnormal findings Amanda Blair Benjamindrew Work Phone: [address] [address] Work Phone: Comment on above: 02/06/2020:Negative1 ; WNL; 04/02/2021: LGSIL:Yeltnmnn00/31/2018; WNL; 10/29/2021: LGSIL01: LGSIL02/06/2020:Cnhirrha31/31/2018; WNL; 05/07/2022; COTEST NE G010/29/2021: LGSIL04/02/2021: LGSIL02/06/2020:Hacklxxj28/31/2018; WNL; Patient encounter status Jorge Alberto Blair Olena Work Phone: [facility] Work Phone: Procedures Date Procedure Procedure Detail Performing Clinician Start: 03-10-2022 End: 03-10-2022 EKG impression Sean Malagon Start: 06-12-2021 Mammography Zenaida kim MD Work Phone: Start: 03-16-2021 SARS-COV-2 RAPID Monica ROGERS Work Phone: Bilateral mastectomy Jorge Alberto Osborne Work Phone: Comment on above: 04/11/2022: with rec onstruction; Tooth extraction Amanda Blair Olena Work Phone: Total abdominal hysterectomy Amanda Blair Olena Work Phone: Comment on above: 12/30/2018; Plan of Treatment Date Care Activity Detail Author Start: 01-23-2024 Diabetes mellitus screening Diabetes Screening [facility] Start: 12-29-2023 Zoster Vaccines (1 of 2) Zoste r Vaccines (1 of 2) [facility] Start: 11-15-2023 Influenza vaccination Influenz a Vaccine (Season Ended) [facility] Start: 09-02-2023 End: 09-02-2023 Patient encounter procedure 09/02/2023 8:30 AM EDT Office Visit [facility] Building [address] [place] [id number] Zenaida Silva MD [address] [facility], [address] [address] [facility] Start: 04-21-2023 End: 04-21-2023 Patient encounter procedure 04/21/2023 10:00 AM EST Appointment [facility] [address] [id number] [facility] Start: 04-17-2023 End: 04-17-2025 Vascular US Lower Extremity Venous Duplex Left Vascular US Lower Extremity Venous Duplex Left Vascular Ultrasound Routine Left leg swelling Expected: 04/17/2023 (Approximate), Expires: 04/17/2025 [facility] Service Area Work Phone: Comment on above: Expected: 04/17/2023 (Approximate), Expires: 04/17/2025 Start: 03-04-2023 EPV, Provider: Amanda Osborne, Status: Pen, Time: 11:00 AM EPV, Provider: Amanda Osborne, Status: Pen, Time: 11:00 AM [facility] Work Phone: Start: 03-04-2023 End: 03-04-2023 Patient encounter procedure [facility] [place] Start: 02-24-2023 End: 02-25-2024 Cytology Cervical or vaginal smear or scraping study THINPREP PAP TEST Pathology and Cytology Routine Vaginal Pap smear Vaginal Pap smear with LGSIL Expected: 02/24/2023 (Approximate), Expires: 02/25/2024 [facility] Service Area Work Phone: Comment on above: Expected: 02/24/2023 (Approximate), Expires: 02/25/2024 Start: 11-14-2022 COVID-19 Vaccine ( season) COVID-19 Vaccine ( season) [facility] Start: 11-14-2022 Influenza vaccination Influenza Vacc ine (#1) [facility] Start: 11-04-2022 PAPREPEAT, Provider: Zenaida Silva, Status: Pen, Time: 8:30 AM PAPREPEAT, Provider: Zenaida Silva, Status: Pen, Time: 8:30 AM [facility] Work Phone: Start: 06-12-2022 Screening for malign ant neoplasm of breast Mammogram [facility] Start: 05-07-2022 PAPREPEAT, Provider: Zenaida Silva, Status: Pen, Time: 8:30 AM PAPREPEAT, Provider: Zenaida Silva, Status: Pen, Time: 8:30 AM [facility] Work Phone: Start: 05-07-2022 Patient encounter procedure [facility] Start: 04-07-2022 Patient encounter procedure ANNUAL, Provider: Zenaida Silva, Status: Pen, Time: 8:30 AM [facility] Work Phone: Start: 03-05-2022 Patient encounter procedure [facility] Start: 11-14-2021 FUV, Provider: Irene Finley, Status: Pen, Time: 1:00 PM FUV, Provider: Irene Finley, Status: Pen, Time: 1:00 PM [facility] [address] Work Phone: Start: 10-16-2021 PAPREPEAT, Provider: Zenaida Silva, Status: Pen, Time: 3:30 PM PAPREPEAT, Provider: Zenaida Silva, Status: Pen, Time: 3:30 PM [facility] Work Phone: Start: 07-12-2021 COVID-19 Vaccine (2 - Booster for Lalo series) COVID-19 Vaccine (2 - Booster for Lalo series) [facility] Start: 02-06-2021 Patient encounter procedure ANNUAL, Provider: Zenaida Silva, Status: Pen, Time: 9:00 AM [facility] Work Phone: Start: 01-14-2021 FUV, Provider: Mayra Kennedy, Status: Pen, Time: 8:30 AM FUV, Provider: Mayra Kennedy, Status: Pen, Time: 8:[address] Work Phone: Start: 11-14-2020 Influenza vaccination INFLUENZA VACC INE (#1) [facility] Start: 10-30-2020 EPV, Provider: Amanda Osborne, Status: Pen, Time: 4:40 PM EPV, Provider: Amanda sOborne, Status: Pen, Time: 4:40 PM [facility] Work Phone: Start: 2018 Colonoscopy COLORECTAL CAN CER SCREENING DISCUSSION [facility] Start: 2013 Fasting lipid profile LIPID SCREENIN G [facility] Start: 2013 Screening mammography MAMMOGRA M SCREENING DISCUSSION [facility] Start: 12-29-1995 DTaP/Tdap/Td Vaccine s (1 - Tdap) DTaP/Tdap/Td Vaccines (1 - Tdap) [facility] Start: 1994 Screening for malign ant neoplasm of cervix CERVICAL CANCER SCREENING DISCUSSION [facility] Start: 1992 Hepatitis B Vaccines (1 of 3 - 19+ 3-dose series) Hepatitis B Vaccines (1 of 3 - 19+ 3-dose series) [facility] Start: 1992 Third diphtheria, tetanus and acellular pertussis (DTaP) vaccination TDAP (ADULT) [facility] Start: 12-29-1991 Hepatitis C screening Hepatitis C Sc reening [facility] Start: 12-29-1991 Tetanus vaccination TETANUS [facility] Start: 1988 HIV screening HIV SCREENING DISCUSSION [facility] Start: 1978 COVID-19 VACCINE (1) COVID-19 VACCIN E (1) [facility] Start: 1974 MMR Vaccines (1 of 1 - Standard series) MMR Vaccines (1 of 1 - Standard series) [facility] Start: 1973 Hepatitis B Vaccines (1 of 3 - 3-dose series) Hepatitis B Vaccines (1 of 3 - 3-dose series) [facility] Start: 1973 Hepatitis C antibody , confirmatory test HEPATITIS C VIRUS SCREENING [facility] Start: 1973 HIV screening HIV Screening [facility] Start: 1973 Lipid panel Lipid Panel [facility] Start: 1973 Screening for malign ant neoplasm of colon [facility] Start: 1973 Yearly Adult Physical Yearly Adult P hysical [facility] H/O: surgery History of bladd er surgery [facility] History of tonsillectomy History of tonsillectomy and adenoidectomy [facility] Immunizations Immunization Date Immunization Notes Care Provider Fa cility 05-31-2022 influenza, seasonal, injectable Amanda Osborne MD Work Phone: [facility] Work Phone: 05-31-2022 influenza virus vaccine, unspecified formulation Zenaida Silva MD Work Phone: [facility] Work Phone: Payers Date Payer Category Payer Unknown 2021 Unknown [employer] [id number] 2021-Present [address] [place] [address] [id number] 2021 Unknown [id number] 2021 Unknown [id number] 2017 Unknown [id number] 1973 Unknown [id number] 1973 Unknown [id number] 1973 Unknown [id number] 1973 Unknown [id number] 1973 Unknown [id number] [id number] 1973 Unknown [id number] [id number] 1973 Unknown [id number] [id number] 1973 Unknown [id number] [id number] 1973 Unknown [id number] [id number] 1973 Unknown [id number] [id number] 1973 Unknown [id number] [id number] 1973 Unknown [id number] [id number] 1973 Unknown [id number] Social History Date Type Detail Facility Start: 02-24-2023 End: 04-17-2023 Sexually active Sexually active [facility] Work Phone: Comment on above: No Living Will; Occationally; Start: 03-16-2021 End: 02-24-2023 Tobacco smoking status NHIS Ex-smoker [facility] Start: 03-16-2021 End: 02-24-2023 Tobacco use and exposure Smokeless tobacco non-user [facility] Start: 03-16-2021 End: 08-04-2023 Alcohol intake Current drinker of alcohol (finding) [facility] Start: 03-16-2021 History SDOH Alcohol Comment SOCIAL [facility] Start: 03-16-2021 Tobacco Comment QUIT 7 YEARS AGO [facility] Start: 1973 Sex Assigned At Not on file [facility] Tobacco smoking consumption unknown [facility] History of tobacco use Current smoker [facility] Work Phone: History of tobacco use Cigarette Smoker [facility] Work Phone: Start: 02-24-2023 End: 04-17-2023 Tobacco use panel [facility] Work Phone: Start: 02-24-2023 Alcohol Comment Occasionally [facility] Work Phone: Start: 02-14-2023 End: 08-04-2023 Exposure to SARS-CoV-2 (event) Not sure [facility] Start: 1973 Sex Assigned At Female [facility] Start: 03-26-2023 Gender identity Identifies as female gender (finding) [facility] Work Phone: Start: 03-26-2023 Sexual orientation Heterosexual (fin ding) [facility] Work Phone: Clinical Notes 01-04-2017 to 08-04-2023 Ab Puri APRN-UNIFORM DESIGNER - 08/04/2023 9:25 AM My Osullivan MA - 04/17/2023 3:20 PM Becki Osborne MD - 04/17/2023 3:20 PM ESTPatient InstructionsPatient Instructions Note Date & Type Note Facility 08-04-2023 History of Present illness Narrative 47 y.o. female presents for evaluation of abscess to left axilla that began 10 days ago. Denies any history of abscess. Denies fever, drainage, streaking or any other associated symptom or complaint. Patient did notice inflammation past few days. No OTC meds used for symptom management. No other complaints. Vitals: 08/04/23 0929 BP: 134/74 Pulse: 71 Resp: 18 SpO2: 94% Allergies Allergen Reactions Penicillins Hives Medication Documentation Review Audit Reviewed by Geno Esquivel MA (Can Machine Operator) on 08/04/23 at 0927 Medication Order Taking? Sig Documenting Provider Last Dose Status diazePAM (Valium) 5 mg tablet [id number] Yes Take 1 tablet (5 mg) by mouth every 8 hours if needed for muscle spasms. Historical ProviderMD Taking Active fluticasone (Flonase) 50 mcg/actuation nasal spray [id number] Yes USE 2 SPRAY(S) IN EACH NOSTRIL TWICE DAILY Amanda Osborne MD Taking Active ibuprofen 800 mg tablet [id number] Yes Take 1 tablet (800 mg) by mouth every 8 hours if needed for mild pain (1 - 3). Amanda Osborne MD Taking Active levoFLOXacin (Levaquin) 500 mg tablet [id number] Yes Take 1 tablet (500 mg) by mouth once daily. Historical Provider, Unknown Active omeprazole (PriLOSEC) [address] capsule [id number] Yes Take 1 capsule (40 mg) by mouth once daily. Amanda Osborne MD Taking Active SUMAtriptan (Imitrex) 100 mg tablet [id number] Yes Take 1 tablet (100 mg) by mouth 1 time if needed for migraine (TAKE 1 TABLET EVERY 2 HOURS NEEDED FOR MIGRAINE. DO NOT EXCEED 200 MG). Amanda Osborne MD Taking Active valACYclovir (Valtrex) 500 mg tablet [id number] Yes Take 1 tablet (500 mg) by mouth once daily. Amanda Osborne MD Taking Active Past Medical History: Diagnosis Date Encounter for examination of eyes and vision without abnormal findings Examination of eyes and vision Encounter for full-term uncomplicated delivery ([facility]) Normal vaginal delivery Encounter for gynecological examination (general) (routine) without abnormal findings 04/02/2021 Pap test, as part of routine gynecological examination LGSIL Pap smear of vagina 04/02/2021 Other specified health status Date of last menstrual period (LMP) unknown Personal history of other medical treatment History of dental examination Personal history of other medical treatment History of screening mammography Past Surgical History: Procedure Laterality Date MASTECTOMY MODIFIED RADICAL / SIMPLE / COMPLETE Bilateral OTHER SURGICAL HISTORY 02/06/2020 Tooth extraction TOTAL ABDOMINAL HYSTERECTOMY 2019 ROS See HPI Physical Exam Vitals and nursing note reviewed. Constitutional: Appearance: Normal appearance. Cardiovascular: Rate and Rhythm: Normal rate and regular rhythm. Skin: General: Skin is warm and dry. Findings: Abscess (3 cm abscess without significant erythema, had formation present without drainage.) present. Neurological: General: No focal deficit present. Mental Status: She is alert and oriented to person, place, and time. Psychiatric: Mood and Affect: Mood normal. Behavior: Behavior normal. Thought Content: Thought content normal. Judgment: Judgment normal. Assessment/Plan/MDM Irene Schultz was seen today for abscess. Diagnoses and all orders for this visit: Cutaneous abscess of left axilla (Primary) - sulfamethoxazole-trimethoprim (Bactrim DS) 800-160 mg tablet; Take 1 tablet by mouth 2 times a day for 10 days. - doxycycline (Adoxa) 100 mg tablet; Take 1 tablet (100 mg) by mouth 2 times a day for 10 days. Take with a full glass of water and do not lie down for at least 30 minutes after Encouraged warm compresses, cleanse with betadine PRN, otc analgesics. Patient's clinical presentation is otherwise unremarkable at this time. Patient is discharged with instructions to follow-up with primary care or seek emergency medical attention for worsening symptoms or any new concerns. I did personally review Irene's past medical history, surgical history, social history, as well as family history (when relevant). In this case, I also oversaw the her drug management by reviewing her medication list, allergy list, as well as the medications that I prescribed during the UC course and/or recommended as an out-patient (including possible OTC medications such as acetaminophen, NSAIDs , etc). After reviewing the items above, I did not look at previous medical documentation, such as recent hospitalizations, office visits, and/or recent consultations with PCP/specialist. SDOH: Another factor that I considered in Irene's care was her Social Determinants of Health (SDOH). During this UC encounter, she did not have social determinants of health. Those SDOH influencing Irene's care are: none Ab Puri CNP [facility] [phone] documented in this encounter [facility] Work Phone: 04-17-2023 History of Present illness Narrative Subjective Patient ID: Crystal Main is a 47 y.o. female who presents for yearly check up and medication refill. Patient would like to discuss the swelling in the left leg that starts from the ankle up (patient notices it in the ankle first) HPI Review of Systems Objective There were no vitals taken for this visit. Physical Exam Assessment/Plan Subjective Irene Schultz is a 47 y.o. female who presents for No chief complaint on file.. Here for check up. 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 She has been having issues with left leg swelling for the past year, no pain but it feels tight. Not related to activity. Objective Visit Vitals BP 110/76 (BP Location: Left arm, Patient Position: Sitting, BP Cuff Size: Adult) Pulse 52 Physical Exam Vitals reviewed. Constitutional: General: She is not in acute distress. Cardiovascular: Rate and Rhythm: Normal rate and regular rhythm. Heart sounds: No murmur heard. Pulmonary: Effort: Pulmonary effort is normal. No respiratory distress. Breath sounds: Normal breath sounds. Musculoskeletal: Comments: Left lower leg has mild-mod swelling Skin: General: Skin is warm and dry. Neurological: General: No focal deficit present. Mental Status: She is alert. Mental status is at baseline. Assessment/Plan Problem List Items Addressed This Visit None Visit Diagnoses Left leg swelling - Primary Relevant Orders Vascular US Lower Extremity Venous Duplex Left Esophagitis, unspecified without bleeding Relevant Medications omeprazole (PriLOSEC) [address] capsule Herpes Relevant Medications valACYclovir (Valtrex) 500 mg tablet Migraine without status migrainosus, not intractable, unspecified migraine type Relevant Medications SUMAtriptan (Imitrex) 100 mg tablet ibuprofen 800 mg tablet Amanda Osborne MD documented in this encounter [facility] Work Phone: 04-17-2023 Instructions Amanda Osborne MD - 04/17/2023 3:20 PM EST Will check a doppler of the leg, continue other current medications. Follow up based on results and symptoms. documented in this encounter [facility] Work Phone: 02-24-2023 History of Present illness Narrative Irene Main is 47 y.o. 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 Patient has history of LGSIL. OSACR in 2019. Review of Systems: Constitutional: No fever or chills Respiratory: No shortness of breath, or cough Cardiovascular: No chest pain or syncope Breasts: No breast pain, no masses, no nipple discharge Gastrointestinal: No nausea, vomiting, or diarrhea, no abdominal pain Genitourinary: No dysuria or frequency Gynecology: Negative except as noted in history of present illness All other: All other systems reviewed and negative for complaint BP 136/72 Ht 1.651 m (5' 5 ) Wt 81.3 kg (179 lb 3.2 oz) BMI 29.82 kg/m OBGyn Exam Physical Exam: Well-developed, well nourished, in no acute distress, alert and oriented x three, is pleasant and cooperative. HEENT: Clear. Pupils equal, round and reactive to light and accommodation. Extraocular muscles are intact. Oral mucosa pink without exudate. NECK: No lymphadenopathy, no thyromegaly. LUNGS: Clear bilaterally. HEART: Regular rate and rhythm without murmurs. ABDOMEN: Normoactive bowel sounds, soft and nontender, no guarding or rebound tenderness, no CVA tenderness. EXTREMITIES: No clubbing, cyanosis or edema. NEUROLOGIC: Cranial nerves II-XII grossly intact. : Normal external female genitalia, normal vulva, normal vagina. Normal urethral meatus, urethra and bladder. Noted surgical absence of the cervix and uterus. Well-healed vaginal cuff. No adnexal masses or tenderness. Pap smear performed today. Assessment/ Plan: @ASSESSMENTANDPLANTEXT@ 1. History of mild dysplasia 2. Repeat Pap performed today Follow-up in 6 months for yearly documented in this encounter [facility] Work Phone: 05-07-2022 Note 6 Date of Procedure: 05/07/2022 Pathologist: [facility], Cytology Date Reported: 05/15/2022 Date Received: 05/07/2022 Submitting Physician: ZENAIDA SILVA MD Attending Physician: ZENAIDA SILVA MD FINAL CYTOLOGICAL INTERPRETATION A. THINPREP PAP VAGINAL: Specimen Adequacy: SATISFACTORY FOR EVALUATION. General Categorization: NEGATIVE FOR INTRAEPITHELIAL LESION OR MALIGNANCY. HIGH RISK HPV TEST RESULT: HPV GENOTYPE 16 NEGATIVE HPV GENOTYPE 18 NEGATIVE HPV GENOTYPE OTHER NEGATIVE Reference Range: Negative QC review performed at [facility], [address] [place] [address] Testing for high-risk (HR) type of human papilloma virus (HPV) is performed by the [employer] sidra HPV Test. The sidra HPV Test is a qualitative polymerase chain reaction that amplifies DNA of HPV16, HPV18 and 12 other high-risk HPV types (31, 33, 35, 39, 45, 51, 52, 56, 58, 59, 66, and 68) associated with cervical cancer and its precursor lesions. A positive result indicates the presence of HPV DNA due to one or more of the 14 genotypes: 16, 18, 31, 33, 35, 39, 45, 51, 52, 56, 58, 59, 66, and 68. Negative results indicate HPV DNA concentrations are undetectable or below the pre-set threshold for detection. False negative results may be associated with unoptimized sampling. A negative HR HPV result does not exclude the possibility of future cytologic HSIL or underlying CIN2-3 or cancer. This test is approved for cervical specimens by the US Food and Drug Administration. Results of this test should be interpreted in conjunction with the patient?s Pap test results. Please refer to ASCCP current guidelines for the use of HPV DNA testing, result interpretation, and patient management. The performance of this test was verified by the Molecular Diagnostic Laboratory at [facility]. The lab is certified under the Clinical Laboratory Amendments of 1988 (CLIA 88) as qualified to perform high complexity clinical laboratory testing. This specimen has been analyzed by the [employer] Imaging System ([employer] an automated imaging and review system, which assists the laboratory in evaluating cells on ThinPrep Pap tests. Following automated imaging, selected pierce from every slide were reviewed by a mold filler plastic dolls and/or pathologist. Electronically Signed Out By [facility], Cytology//IK/JMZoey By the signature on this report, the individual or group listed as making the Final Interpretation/Diagnosis certifies that they have reviewed this case. Diagnostic interpretation performed at [facility] [address] [place] [address] Educational Note: Cervical cytology is a screening procedure primarily for squamous cancers and precursors and has associated false-negative and false-positive results as evidenced by published data. Your patient?s test should be interpreted in this context, together with patient?s history and clinical findings. Regular sampling and follow-up of unexplained clinical signs and symptoms are recommended to minimize false negative results. Clinical History Date of Last Menstrual Period: Hysterectomy 2018 Other Clinical Conditions: COTEST HPV(Genotype) except for ASC-H, HSIL, Carcinoma - Include HPV Genotype testing Annual Clinical Diagnosis History: Pap test, as part of routine gynecological examination - (Z01.419); Vaginal Papanicolaou smear - (Z12.72) Source of Specimen A: THINPREP PAP VAGINAL [facility] Department of Pathology [id number] Comment on above: Performed By: #### C #### [facility] Cytology [id number] [address] [id number] 03-16-2022 History of Present illness Narrative Presents for annual exam. She voices no complaints and is doing well. Denies any bowel or bladder problems. Denies any breast problems. Previous hysterectomy. She had bilateral mastectomy with reconstruction in March 2022. [place] [address] [employer] Work Phone: 03-01-2022 History of Present illness Narrative Here for routine f/u migraines. She was seen in the ER on 03/01 for sore throat/tongue pain - she was treated with steroids, antibiotics and viscous lidocaine. She was negative for strep, covid, influenza. She had a CT that was negative for infection/abscess in the neck. It did show esophagitis. She is now having cough, sinus congestion.She is on clindamycin. Overall she states that she is feeling better today than she had been feeling. She has taken OTC omeprazole 20 mg daily and felt that was somewhat helpful. We will start her on 40 mg daily and will refer for EGD/GI evaluation. [facility] Work Phone: 03-01-2022 History of Present illness Narrative Here for routine f/u migraines. She was seen in the ER on 03/01 for sore throat/tongue pain - she was treated with steroids, antibiotics and viscous lidocaine. She was negative for strep, covid, influenza. She had a CT that was negative for infection/abscess in the neck. It did show esophagitis. She is now having cough, sinus congestion.She is on clindamycin. Overall she states that she is feeling better today than she had been feeling. She has taken OTC omeprazole 20 mg daily and felt that was somewhat helpful. We will start her on 40 mg daily and will refer for EGD/GI evaluation. [facility] Work Phone: 03-16-2021 History of Present illness Narrative URGENT CARE eNCOUnter CHIEF COMPLAINT Sinus Congestion (FOR A WEEK) HPI Irene Main is a 45 y.o. female who presents today for Complaining of cough and sinus congestion for the past week. Patient states she has tried many [id number] cold medications with little relief. Denies fever. Denies shortness of breath or chest pain. REVIEW OF SYSTEMS Review of Systems As documented in HPI. A thorough 12 point review of systems was evaluated including Constitutional and general appearance, Head, Face, Ears, Eyes, Nose, Throat, Cardiovascular, Pulmonary, GI, , Skin, and Psychiatric and was found to be negative without symptoms or signs consistent with acute pathology with the exception of that specifically documented in the HPI section of this documentation. PAST MEDICAL HISTORY No past medical history on file. SURGICAL HISTORY No past surgical history on file. CURRENT MEDICATIONS Current Outpatient Medications Medication Sig Dispense Refill albuterol 108 (90 Base) MCG/ACT Aero Soln inhaler Inhale 2 puffs every 4 hours as needed for up to 7 days. 18 g 0 azithromycin 250 MG tablet Take 500 mg X1 then 250 mg PO Once Daily X 4 days 6 tablet 0 predniSONE 20 MG tablet Take 2 tablets by mouth daily for 3 days, THEN 1 tablet daily for 3 days. 40,40,40,20,20,20. 9 tablet 0 No current facility-administered medications for this visit. ALLERGIES Allergies Allergen Reactions Penicillins FAMILY HISTORY History reviewed. No pertinent family history. SOCIAL HISTORY Social History Socioeconomic History Marital status: Single Spouse name: Not on file Number of children: Not on file Years of education: Not on file Highest education level: Not on file Occupational History Not on file Tobacco Use Smoking status: Former Smoker Smokeless tobacco: Never Used Tobacco comment: QUIT 7 YEARS AGO Vaping Use Vaping Use: Never used Substance and Sexual Activity Alcohol use: Yes Comment: SOCIAL Drug use: Never Sexual activity: Not on file Other Topics Concern Service Not Asked Blood Transfusions Not Asked Caffeine Concern Not Asked Occupational Exposure Not Asked Hobby Hazards Not Asked Sleep Concern Not Asked Stress Concern Not Asked Weight Concern Not Asked Special Diet Not Asked Back Care Not Asked Exercise Not Asked Bike Helmet Not Asked Seat Belt Not Asked Domestic Violence No Social History Narrative Not on file Social Determinants of Health Financial Resource Strain: Not on file Food Insecurity: Not on file Transportation Needs: Not on file Physical Activity: Not on file Stress: Not on file Social Connections: Not on file Intimate Partner Violence: Not on file Housing Stability: Not on file PHYSICAL EXAM BP 116/70 (BP Location: Left arm, BP Position: Sitting) Pulse 77 Temp 99.3 F (37.4 C) (Temporal) Resp 16 Ht 1.651 m (5' 5 ) Wt 68.5 kg (151 lb 1.6 oz) SpO2 96% BMI 25.14 kg/m Smoking Status Former Smoker Physical Exam General exam: Patient is well-developed and well-nourished in no distress. Patient does not appear acutely ill or toxic. Eye exam: Lids and conjunctivae are normal ENT exam: masked Pulmonary exam: No respiratory distress. Respiratory rate is normal. No stridor. Breath sounds are equal bilaterally. + wheezing on exam. Cardiac exam: The cardiac rate and rhythm are normal. No significant murmurs, rubs, or gallops. Peripheral pulses are normal. Skin and soft tissue: Skin is warm and dry, without significant abnormality. Good color. Musculoskeletal exam: There is no peripheral edema. Musculoskeletal exam of the lower extremities is normal without significant focal tenderness or spasm. Neurologic: Patient is alert and appropriate. Normal speech. Normal symmetric strength and tone in all extremities. Psychiatric: Normal adult with appropriate demeanor and interpersonal interaction. Is oriented to person, place, and time. Diagnosis, Assessment & Plan: Irene was seen today for sinus congestion. Diagnoses and all orders for this visit: Congestion of nasal sinus - SARS-COV-2 RAPID; Future - SARS-COV-2 RAPID Acute maxillary sinusitis, recurrence not specified Cough Other orders - azithromycin 250 MG tablet; Take 500 mg X1 then 250 mg PO Once Daily X 4 days - predniSONE 20 MG tablet; Take 2 tablets by mouth daily for 3 days, THEN 1 tablet daily for 3 days. 40,40,40,20,20,20. - albuterol 108 (90 Base) MCG/ACT Aero Soln inhaler; Inhale 2 puffs every 4 hours as needed for up to 7 days. 45-year-old female presents today with cough and congestion x 1 week. COVID test is negative. Advised to follow-up with primary care physician. Advised to return or be re-seen immediately if any new or worsening symptoms. Discussed supportive care. -Patient started on azithromycin, prednisone, albuterol inhaler. Advised to follow-up with PCP. SUE Lopez 03/16/2021 documented in this encounter [facility] 03-16-2021 Instructions SUE Lopez - 03/16/2021 2:10 PM EST Images from the original note were not included. Cough: Care Instructions Your Care Instructions A cough is your body's response to something that bothers your throat or airways. Many things can cause a cough. You might cough because of a cold or the flu, bronchitis, or asthma. Smoking, postnasal drip, allergies, and stomach acid that backs up into your throat also can cause coughs. A cough is a symptom, not a disease. Most coughs stop when the cause, such as a cold, goes away. You can take a few steps at home to cough less and feel better. Follow-up care is a merritt part of your treatment and safety. Be sure to make and go to all appointments, and call your doctor if you are having problems. It's also a good idea to know your test results and keep a list of the medicines you take. How can you care for yourself at home? Drink lots of water and other fluids. This helps thin the mucus and soothes a dry or sore throat. Honey or lemon juice in hot water or tea may ease a dry cough. Take cough medicine as directed by your doctor. Prop up your head on pillows to help you breathe and ease a dry cough. Try cough drops to soothe a dry or sore throat. Cough drops don't stop a cough. Medicine-flavored cough drops are no better than candy-flavored drops or hard candy. Do not smoke. Avoid secondhand smoke. If you need help quitting, talk to your doctor about stop-smoking programs and medicines. These can increase your chances of quitting for good. When should you call for help? Call 911 anytime you think you may need emergency care. For example, call if: You have severe trouble breathing. Call your doctor now or seek immediate medical care if: You cough up blood. You have new or worse trouble breathing. You have a new or higher fever. You have a new rash. Watch closely for changes in your health, and be sure to contact your doctor if: You cough more deeply or more often, especially if you notice more mucus or a change in the color of your mucus. You have new symptoms, such as a sore throat, an earache, or sinus pain. You do not get better as expected. Where can you learn more? Go to http://www.[email or web address] /patiented. Enter D279 in the search box to learn more about 'Cough: Care Instructions.' Interested in seeing a video go to [email or web address]/vi joseline to see all video content. Current as of: September 18, 2020 Content Version: 13.1 [employer]. Care instructions adapted under license by your healthcare professional. If you have questions about a medical condition or this instruction, always ask your healthcare professional. [employer] disclaims any warranty or liability for your use of this information. Sinusitis: Care Instructions Your Care Instructions Sinusitis is an infection of the lining of the sinus cavities in your head. Sinusitis often follows a cold. It causes pain and pressure in your head and face. In most cases, sinusitis gets better on its own in 1 to 2 weeks. But some mild symptoms may last for several weeks. Sometimes antibiotics are needed. Follow-up care is a merritt part of your treatment and safety. Be sure to make and go to all appointments, and call your doctor if you are having problems. It's also a good idea to know your test results and keep a list of the medicines you take. How can you care for yourself at home? Take an zclh-mvw-ecxtkno pain medicine, such as acetaminophen (Tylenol), ibuprofen (Advil, Motrin), or naproxen (Aleve). Read and follow all instructions on the label. If the doctor prescribed antibiotics, take them as directed. Do not stop taking them just because you feel better. You need to take the full course of antibiotics. Be careful when taking ojje-hgp-ssgkmvg cold or flu medicines and Tylenol at the same time. Many of these medicines have acetaminophen, which is Tylenol. Read the labels to make sure that you are not taking more than the recommended dose. Too much acetaminophen (Tylenol) can be harmful. Breathe warm, moist air from a steamy shower, a hot bath, or a sink filled with hot water. Avoid cold, dry air. Using a humidifier in your home may help. Follow the directions for cleaning the machine. Use saline (saltwater) nasal washes. This can help keep your nasal passages open and wash out mucus and bacteria. You can buy saline nose drops at a grocery store or drugstore. Or you can make your own at home by adding 1 teaspoon of salt and 1 teaspoon of baking soda to 2 cups of distilled water. If you make your own, fill a bulb syringe with the solution, insert the tip into your nostril, and squeeze gently. Blow your nose. Put a hot, wet towel or a warm gel pack on your face 3 or 4 times a day for 5 to 10 minutes each time. Try a decongestant nasal spray like oxymetazoline (Afrin). Do not use it for more than 3 days in a row. Using it for more than 3 days can make your congestion worse. When should you call for help? Call your doctor now or seek immediate medical care if: You have new or worse swelling or redness in your face or around your eyes. You have a new or higher fever. Watch closely for changes in your health, and be sure to contact your doctor if: You have new or worse facial pain. The mucus from your nose becomes thicker (like pus) or has new blood in it. You are not getting better as expected. Where can you learn more? Go to http://www.[email or web address] /patiented. Enter I933 in the search box to learn more about 'Sinusitis: Care Instructions.' Interested in seeing a video go to [email or web address]/vi anaolibrajessica to see all video content. Current as of: November 21, 2020 Content Version: 13.1 [employer]. Care instructions adapted under license by your healthcare professional. If you have questions about a medical condition or this instruction, always ask your healthcare professional. [employer] disclaims any warranty or liability for your use of this information. documented in this encounter [facility] 04-16-2018 History of Present illness Narrative Irene Main is a pleasant 45- yo female self-referred to the [facility] for surgical consultation for risk reducing bilateral breast mastectomies. 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 She denies breast pain, palpable mass, skin changes or nipple discharge. She has family history of breast cancer in a paternal aunt, paternal grandmother and paternal great aunt.BREAST IMAGIN06/12/2021 Screening mammogram demonstrates heterogeneously dense tissue, BI-RADS Category 1, negative. No breast MRI's performed.REPRODUCTIVE HEALTH: menarche at , surgical menopause at age 43, s/p OSCAR-BSO for fibroids and menorrhagia with begin pathology, with first at 23, with no hormone exposure such as control pills, post menopausal estrogen, or history of breast feeding.MEDICAL HISTORY: MigrainesFAMILY CANCER HISTORY. Paternal aunt diagnosed with breast cancer in late 50's/early 60's. Paternal grandmother diagnosed with breast cancer in 80's. Paternal great aunt diagnosed with breast cancer at unknown age. Maternal half-niece with cervical cancer at 19-20. [facility] [address] Work Phone: 04-16-2018 History of Present illness Narrative Irene Main is a pleasant 45- yo female self-referred to the [facility] [place] for surgical consultation for risk reducing bilateral breast mastectomies. 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 She denies breast pain, palpable mass, skin changes or nipple discharge. She has family history of breast cancer in a paternal aunt, paternal grandmother and paternal great aunt.BREAST IMAGIN06/12/2021 Screening mammogram demonstrates heterogeneously dense tissue, BI-RADS Category 1, negative. No breast MRI's performed. Current screening recommendations have been for q6 month mammogram.REPRODUCTIVE HEALTH: menarche at 11, surgical menopause at age 43, s/p OSCAR-BSO for fibroids and menorrhagia with benign pathology, with first at 22, with no hormone exposure such as control pills, post menopausal estrogen, or history of breast feeding.MEDICAL HISTORY: MigrainesFAMILY CANCER HISTORY. Paternal aunt diagnosed with breast cancer in late 50's/early 60's. Paternal grandmother diagnosed with breast cancer in 80's. Paternal great aunt diagnosed with breast cancer at unknown age. Maternal half-niece with cervical cancer at 19-20. [facility] Work Phone: 01-04-2017 History of Present illness Narrative Is thatPatient is a 45-year-old who comes in with a complaint of a vulvar lump. About 3 or 4 years ago in the same area she had a boil that grew very slowly over several weeks and eventually came to ahead which was very tender eventually it drained. Since that time that area had been nonproblematic and the boil had not recurred. However for approximately a year she has noted a growth on her right vulva that has slowly progressed to now about the size of a pea. She reports that it is nonerythematous and nontender but rather it is just an annoyance. She is concerned because she has a family history of colon cancer uterine cancer breast cancer and she is positive for a breast cancer gene. She wishes to have this lesion removed and sent to pathology to rule out malignancy [address] Work Phone: Chief complaint Narrative - Reported Patient is here for colp procedure. Vaginal pap showed LGSIL. Patient had OSCAR due to uterine fibroids. [address] Work Phone: Evaluation note Diagnosis Congestion of nasal sinus- Primary Other diseases of nasal cavity and sinuses Acute maxillary sinusitis, recurrence not specified [facility]ough [facility] Vaginal Pap smear Special screening for malignant neoplasms, vagina Vaginal Pap smear with LGSIL Papanicolaou smear of vagina with low grade squamous intraepithelial lesion (LGSIL) documented in this encounter [facility] Work Phone: Evaluation note* Diagnosis Left leg swelling- Primary Esophagitis, unspecified without bleeding Herpes Herpes simplex without mention of complication Migraine without status migrainosus, not intractable, unspecified migraine type documented in this encounter [facility] Work Phone: Evaluation note* Diagnosis Cutaneous abscess of left axilla- Primary documented in this encounter [facility] Work Phone: History of Present illness NarrativeHere for routine f/u migraines. She states that she is doing well, no specific concerns at this time.[facility] Work Phone: History of Present illness NarrativePatient presents for colposcopy due to mild dysplasia noted on recent Pap smear. Patient had previous hysterectomy.[address] Work Phone: Summary Purpose Family History No Family History Records FoundUnknown Family Member Name Dates Details Family history of migraine h eadaches: Mother, Sister, Grandparent(V17.2, Z82.0) Status:Active Family history of diabetes m ellitus: Father(V18.0, Z83.3) Comments:Diabetes Mellitus T ype 2; Status:Active Family history of hypertensi on: Father(V17.49, Z82.49) Status:Active Primary malignant neoplasm: Aunt Status:Active Primary malignant neoplasm o f female breast: Grandparent Status:Active Aneurysm: Uncle Status:Active Unknown Family Member Name Dates Details Family history of migraine h eadaches: Mother, Sister, Grandparent(V17.2, Z82.0) Status:Active Family history of diabetes m ellitus: Father(V18.0, Z83.3) Comments:Diabetes Mellitus T ype 2; Status:Active Family history of hypertensi on: Father(V17.49, Z82.49) Status:Active Primary malignant neoplasm: Aunt Status:Active Primary malignant neoplasm o f female breast: Grandparent Status:Active Aneurysm: Uncle Status:Active Unknown Family Member Name Dates Details Family history of migraine h eadaches: Mother, Sister, Grandparent(V17.2, Z82.0) Status:Active Family history of diabetes m ellitus: Father(V18.0, Z83.3) Comments:Diabetes Mellitus T ype 2; Status:Active Family history of hypertensi on: Father(V17.49, Z82.49) Status:Active Primary malignant neoplasm: Aunt Status:Active Primary malignant neoplasm o f female breast: Grandparent Status:Active Aneurysm: Uncle Status:Active Unknown Family Member Name Dates Details Family history of migraine h eadaches: Mother, Sister, Grandparent(V17.2, Z82.0) Status:Active Family history of diabetes m ellitus: Father(V18.0, Z83.3) Comments:Diabetes Mellitus T ype 2; Status:Active Family history of hypertensi on: Father(V17.49, Z82.49) Status:Active Primary malignant neoplasm: Aunt Status:Active Primary malignant neoplasm o f female breast: Grandparent Status:Active Aneurysm: Uncle Status:Active Unknown Family Member Name Dates Details Family history of migraine h eadaches: Mother, Sister, Grandparent(V17.2, Z82.0) Status:Active Family history of diabetes m ellitus: Father(V18.0, Z83.3) Comments:Diabetes Mellitus T ype 2; Status:Active Family history of hypertensi on: Father(V17.49, Z82.49) Status:Active Primary malignant neoplasm: Aunt Status:Active Primary malignant neoplasm o f female breast: Grandparent Status:Active Aneurysm: Uncle Status:Active Unknown Family Member Name Dates Details Family history of migraine h eadaches: Mother, Sister, Grandparent(V17.2, Z82.0) Status:Active Family history of diabetes m ellitus: Father(V18.0, Z83.3) Comments:Diabetes Mellitus T ype 2; Status:Active Family history of hypertensi on: Father(V17.49, Z82.49) Status:Active Primary malignant neoplasm: Aunt Status:Active Primary malignant neoplasm o f female breast: Grandparent Status:Active Aneurysm: Uncle Status:Active Unknown Family Member Name Dates Details Family history of migraine h eadaches: Mother, Sister, Grandparent(V17.2, Z82.0) Status:Active Family history of diabetes m ellitus: Father(V18.0, Z83.3) Comments:Diabetes Mellitus T ype 2; Status:Active Family history of hypertensi on: Father(V17.49, Z82.49) Status:Active Primary malignant neoplasm: Aunt Status:Active Primary malignant neoplasm o f female breast: Grandparent Status:Active Aneurysm: Uncle Status:Active Unknown Family Member Name Dates Details Family history of migraine h eadaches: Mother, Sister, Grandparent(V17.2, Z82.0) Status:Active Family history of diabetes m ellitus: Father(V18.0, Z83.3) Comments:Diabetes Mellitus T ype 2; Status:Active Family history of hypertensi on: Father(V17.49, Z82.49) Status:Active Primary malignant neoplasm: Aunt Status:Active Primary malignant neoplasm o f female breast: Grandparent Status:Active Aneurysm: Uncle Status:Active Unknown Family Member Name Dates Details Primary malignant neoplasm o f female breast: Paternal Grandmother, Paternal Aunt Comments:Aunt [id number] of o nset age; Status:Active Aneurysm: Uncle Status:Active Family history of hypertensi on: Father(V17.49, Z82.49) Status:Active Family history of diabetes m ellitus: Father(V18.0, Z83.3) Comments:Diabetes Mellitus T ype 2; Status:Active Family history of migraine h eadaches: Mother, Sister, Grandparent(V17.2, Z82.0) Status:Active Unknown Family Member Name Dates Details Family history of migraine h eadaches: Mother, Sister, Grandparent(V17.2, Z82.0) Status:Active Family history of diabetes m ellitus: Father(V18.0, Z83.3) Comments:Diabetes Mellitus T ype 2; Status:Active Family history of hypertensi on: Father(V17.49, Z82.49) Status:Active Aneurysm: Uncle Status:Active Primary malignant neoplasm o f female breast: Paternal Grandmother, Paternal Aunt Comments:Aunt [id number] of o nset age; Status:Active Unknown Family Member Name Dates Details Family history of migraine h eadaches: Mother, Sister, Grandparent(V17.2, Z82.0) Status:Active Family history of diabetes m ellitus: Father(V18.0, Z83.3) Comments:Diabetes Mellitus T ype 2; Status:Active Family history of hypertensi on: Father(V17.49, Z82.49) Status:Active Aneurysm: Uncle Status:Active Primary malignant neoplasm o f female breast: Paternal Grandmother, Paternal Aunt Comments:Aunt b4Yeciljg of o nset age; Status:Active Unknown Family Member Name Dates Details Family history of migraine h eadaches: Mother, Sister, Grandparent(V17.2, Z82.0) Status:Active Family history of diabetes m ellitus: Father(V18.0, Z83.3) Comments:Diabetes Mellitus T ype 2; Status:Active Family history of hypertensi on: Father(V17.49, Z82.49) Status:Active Aneurysm: Uncle Status:Active Primary malignant neoplasm o f female breast: Paternal Grandmother, Paternal Aunt Comments:Aunt u6Itphspb of o nset age; Status:Active Unknown Family Member Name Dates Details Family history of migraine h eadaches: Mother, Sister, Grandparent(V17.2, Z82.0) Status:Active Family history of diabetes m ellitus: Father(V18.0, Z83.3) Comments:Diabetes Mellitus T ype 2; Status:Active Family history of hypertensi on: Father(V17.49, Z82.49) Status:Active Aneurysm: Uncle Status:Active Primary malignant neoplasm o f female breast: Paternal Grandmother, Paternal Aunt Comments:Aunt c6Tdgrkqf of o nset age; Status:Active Unknown Family Member Name Dates Details Family history of migraine h eadaches: Mother, Sister, Grandparent(V17.2, Z82.0) Status:Active Family history of diabetes m ellitus: Father(V18.0, Z83.3) Comments:Diabetes Mellitus T ype 2; Status:Active Family history of hypertensi on: Father(V17.49, Z82.49) Status:Active Aneurysm: Uncle Status:Active Primary malignant neoplasm o f female breast: Paternal Grandmother, Paternal Aunt Comments:Aunt m1Vdxwtgg of o nset age; Status:Active Unknown Family Member Name Dates Details Family history of migraine h eadaches: Mother, Sister, Grandparent(V17.2, Z82.0) Status:Active Family history of diabetes m ellitus: Father(V18.0, Z83.3) Comments:Diabetes Mellitus T ype 2; Status:Active Family history of hypertensi on: Father(V17.49, Z82.49) Status:Active Aneurysm: Uncle Status:Active Primary malignant neoplasm o f female breast: Paternal Grandmother, Paternal Aunt Comments:Aunt y3Qygfmvq of o nset age; Status:Active Unknown Family Member Name Dates Details Family history of diabetes m ellitus: Father(V18.0, Z83.3) Comments:Diabetes Mellitus T ype 2; Status:Active Family history of migraine h eadaches: Mother, Sister, Grandparent(V17.2, Z82.0) Status:Active Family history of hypertensi on: Father(V17.49, Z82.49) Status:Active Aneurysm: Uncle Status:Active Primary malignant neoplasm o f female breast: Paternal Grandmother, Paternal Aunt Comments:Aunt x5Xbtaaap of o nset age; Status:Active Unknown Family Member Name Dates Details Family history of diabetes m ellitus: Father(V18.0, Z83.3) Comments:Diabetes Mellitus T ype 2; Status:Active Family history of migraine h eadaches: Mother, Sister, Grandparent(V17.2, Z82.0) Status:Active Family history of hypertensi on: Father(V17.49, Z82.49) Status:Active Aneurysm: Uncle Status:Active Primary malignant neoplasm o f female breast: Paternal Grandmother, Paternal Aunt Comments:Aunt y4Pebvbir of o nset age; Status:Active Unknown Family Member Name Dates Details Family history of diabetes m ellitus: Father(V18.0, Z83.3) Comments:Diabetes Mellitus T ype 2; Status:Active Family history of migraine h eadaches: Mother, Sister, Grandparent(V17.2, Z82.0) Status:Active Family history of hypertensi on: Father(V17.49, Z82.49) Status:Active Aneurysm: Uncle Status:Active Primary malignant neoplasm o f female breast: Paternal Grandmother, Paternal Aunt Comments:Aunt c6Gfqjefj of o nset age; Status:Active Unknown Family Member Name Dates Details Family history of migraine h eadaches: Mother, Sister, Grandparent(V17.2, Z82.0) Status:Active Family history of diabetes m ellitus: Father(V18.0, Z83.3) Comments:Diabetes Mellitus T ype 2; Status:Active Family history of hypertensi on: Father(V17.49, Z82.49) Status:Active Aneurysm: Uncle Status:Active Primary malignant neoplasm o f female breast: Paternal Grandmother, Paternal Aunt Comments:Aunt x7[place] of o nset age; Status:Active Unknown Family Member Name Dates Details Family history of migraine h eadaches: Mother, Sister, Grandparent(V17.2, Z82.0) Status:Active Family history of diabetes m ellitus: Father(V18.0, Z83.3) Comments:Diabetes Mellitus T ype 2; Status:Active Family history of hypertensi on: Father(V17.49, Z82.49) Status:Active Aneurysm: Uncle Status:Active Primary malignant neoplasm o f female breast: Paternal Grandmother, Paternal Aunt Comments:Aunt [id number] of o nset age; Status:Active Advance Directives No Advanced Directives Records FoundNo Advanced Directives Records FoundNo Advanced Directives Records FoundNo Advanced Directives Records FoundNo Advanced Directives Records FoundNo Advanced Directives Records FoundNo Advanced Directives Records FoundNo Advanced Directives Records FoundNo Advanced Directives Records Found Chief Complaint Med refillsPatient presents today stating she has a boil in her groin area that will pop and then come back. Patient would like to discuss how to get rid of this boil. lmp hysterSelf referred for discussion of risk reducing bilateral mastectomiesSelf referred for discussion of risk reducing bilateral mastectomies ckup, ER f/u, [facility] 03/01/22, states infection to throat, but was not told what kind of infection, states today she has nasal congestion, yellow drainage, cough, x2 teeth extracted 01/29/22.ckup, ER f/u, [facility] 03/01/22, states infection to throat, but was not told what kind of infection, states today she has nasal congestion, yellow drainage, cough, x2 teeth extracted 01/29/22.Patient is here for her yearly exam and pap test. Hysterectomy in 2019. Patient had bilateral mastectomy with reconstruction on 04/11/22. Patient has no concerns at this time. Reason for Referral Specialty Diagnoses / Procedures Referred By Harvey martinez Referred To Contact Cardiology Diagnoses Left leg swelling Procedures Vascular US Lower Extremity Venous Duplex Left Amanda Osborne MD [address] [facility] [place] [address] Referral ID Status Reason Start Date Expiration Date Visits Requested Visits Authorized [id number] Pending Review Perform Procedure 04/17/2023 04/16/2024 1 1 Additional Source Comments INFORMATION SOURCE (unrecogn ized section and content) DATE CREATED AUTHOR 09/04/2017 [facility] DATE CREATED AUTHOR AUTHOR'S ORGANIZ ATION 03/24/2018 [facility] DATE CREATED AUTHOR AUTHOR'S ORGANIZ ATION 12/15/2018 [facility] DATE CREATED AUTHOR AUTHOR'S ORGANIZ ATION 03/11/2022 [facility] DATE CREATED AUTHOR AUTHOR'S ORGANIZ ATION 03/15/2022 [facility] DATE CREATED AUTHOR AUTHOR'S ORGANIZ ATION 05/08/2022 [employer] DATE CREATED AUTHOR AUTHOR'S ORGANIZ ATION 11/05/2022 [facility] DATE CREATED AUTHOR AUTHOR'S ORGANIZ ATION 04/19/2023 [facility] DATE CREATED AUTHOR AUTHOR'S ORGANIZ ATION 08/06/2023 [facility] Reason for Visit (unrecogniz ed section and content) Reason Comments Sinus Congestion FOR A WEEK Reason Comments Repeat pap Patient is here for repeat pap. Patient has history of LGSIL. OSCAR in 2019. Reason Comments Abscess Left axillary absces s X 4 days Care Teams (unrecognized sec tion and content) Floor Inspector Relationship Specialty Start Date End Date Amanda Osborne MD [address] [phone] PCP - General Family Medicine 03/16/21 Floor Inspector Relationship Specialty Start Date End Date Amanda Osborne MD [address] [facility] [place] [address] PCP - General 12/14/18 Amanda Osborne MD [address] [facility] [place] [address] PCP - [facility] PCP 05/14/22 Floor Inspector Relationship Specialty Start Date End Date Amanda Osborne MD [address] [facility] [place] [id number] PCP - General 12/14/18 Amanda Osborne MD [address] [facility] [place] [id number] PCP - [facility] PCP 05/14/22 Floor Inspector Relationship Specialty Start Date End Date Amanda Osborne MD [address] [facility] [place] [address] PCP - General 12/14/18 Amanda Osborne MD [address] [facility] [place] [address] PCP - [facility] PCP 05/14/22 <item><item> Privacy Markings (unrecogniz ed section and content) Section Author: Eden Culver PROHIBITION ON REDISCLOSURE OF CONFIDENTIAL INFORMATION This notice accompanies a disclosure of information concerning a client made to you with the consent of such client. Section Author: Eden Culver PROHIBITION ON REDISCLOSURE OF CONFIDENTIAL INFORMATION This notice accompanies a disclosure of information concerning a client made to you with the consent of such client. FOR RECORDS PERTAINING TO PATIENTS WHO ARE OR HAVE BEEN ENROLLED IN A CHEMICAL DEPENDENCY/SUBSTANCEABUSE PROGRAM, SOME INFORMATION MAY BE OMITTED. This clinical summary was aggregated from multiple sources. Caution should be exercised in using it in the provision of clinical care. This summary normalizes information from multiple sources, and as a consequence, information in this document may materially change the coding, format and clinical context of patient data. In addition, data may be omitted in some cases. CLINICAL DECISIONS SHOULD BE BASED ON THE PRIMARY CLINICAL RECORDS. [employer] [facility]. provides no warranty or guarantee of the accuracy or completeness of information in this document.
== END | disposition home or self-care (01) ==
LOC: CT 07:04
PROVIDERS: PCP Family Medicine; Referring Provider Nurse Practitioner Family; Visit Provider Nurse Practitioner Family
DX: N65.0 Deformity of reconstructed breast (principal); Z98.890 Other specified postprocedural states; Z98.86 Personal history of breast implant removal; Z90.13 Acquired absence of bilateral breasts and nipples
CPT/HCPCS: 74174; Q9967

== ENCOUNTER 2024-03-31 20:00 | Inpatient (IN) | payer BC, SELFPAY ==
[2024-03-31] VITALS (10 sets, daily range): BP systolic 115–167; BP diastolic 62–95; PULSE 81–102; RESP 14–24; TEMP 36–36.8; O2SAT 90–99; BMI 30.4; BMI 31.9
--- NOTE | 2024-03-31 | FORE_PTH ---
PATIENT: SANG MAIN LOC: [facility] U#:[id number] AGE/SX: 48/F ROOM: [facility]03 RE03/31/[address]: Dr. Marlon Allen MD : 1975 BED: 1 DIS: 04/03/2024 SPEC #: [id number] RECD: 04/01/24 10:19 STATUS: RYLAND REMark Anthony #: [id number] SHIRA: 03/31/24 00:[address]: Marlon Allen DEPT: SURGICAL PATHOLOGY RECD BY: Cristiana Sifuentes ENTERED: 04/01/24 11:08 SP TYPE: FOREIGN B OTHR DR: Dr. Amanda Hyatt MD Tissues: A - FOREIGN BODY B - FOREIGN BODY C - FOREIGN BODY D - FOREIGN BODY Procedures: Surgery Specimen Level IV HEADER OPERATION: Reconstruction using deep inferior epigastric perforation PRE-OP DIAGNOSIS: Deformity of reconstructed breast, history of prophylactic mastectomy of both breasts, prophylactic breast removal TISSUE SUBMITTED: A- Left capsule, B- Left implant, C- Right implant, D- Right capsule MICROSCOPIC DIAGNOSIS A. Left capsule, excision: Pieces of dense fibroconnective tissue, fibroadipose and skeletal muscle consistent with capsule with focal foreign body giant cell reaction. B. Left implant: Implant (gross only). C. Right implant: Implant (gross only). D. Right capsule, excision: Pieces of dense fibroconnective and fibroadipose tissue consistent with capsule with focal foreign body giant cell reaction. 04/04/2024 MICROSCOPIC DESCRIPTION Slides are reviewed. GROSS DESCRIPTION A. Received in fixative is one container labeled with the patient's name and designated Left capsule. The specimen consists of a piece of bagley-pink congested tissue consisting of capsule measuring 13 x 10 x 1cm. Also present in the container are multiple pieces of bagley indurated tissue consistent of portion of capsule measuring in aggregate 7.5 x 3.5 x 0.5cm. Dynamite Cartridge Crimper sections are submitted in one cassette. B. Received in fixative is one container labeled with the patient's name and designated Left implant. The specimen consists of a ovoid gel implant measuring 17cm in diameter and up to 5cm in depth. Implant appears to be intact. Inscription on the implant says [place] [id number] M+D 630cc. The specimen is for gross identification only. C. Received in fixative is one container labeled with the patient's name and designated Right implant. The specimen consists of a ovoid gel implant measuring 17cm in diameter and up to 5cm in depth. Implant appears to be intact. Inscription on the implant says [place] [id number] M+D 630cc. The specimen is for gross identification only. D. Received in fixative is one container labeled with the patient's name and designated Right capsule. The specimen consists of a piece of bagley-pink congested tissue consisting of capsule measuring 13 x 12 x 1cm. Also present in the container are multiple pieces of bagley indurated tissue consistent of portion of capsule measuring in aggregate 7 x 6 x 1.5cm. Dynamite Cartridge Crimper sections are submitted in one cassette. 04/01/2024 TC:5 CPT:42203h8, 16318p1
--- NOTE | 2024-03-31 06:19 | EKG12_ITS ---
Test Reason : PRE-OP Blood Pressure : */* mmHG Vent. Rate : 62 BPM Atrial Rate : 62 BPM P-R Int : 136 ms QRS Dur : 92 ms QT Int : 420 ms P-R-T Axes : 60 54 42 degrees QTcB Int : 426 ms Normal sinus rhythm Normal ECG When compared with ECG of 29-Apr-2022 07:05, No significant change was found Confirmed by VIOLET ROBERTO, YAHIR ([id number]), sports editor TRUDY YATES ([id number]) on 04/11/2024 2:20:42 PM Referred By: Marlon Allen Confirmed By: YAHIR LAZO MD
[2024-03-31] MEDS: Lactated Ringers 1,000 ML 40 ML IV (06:23)
[2024-03-31] MEDS: Acetaminophen 500 MG Tablet 1000 MG PO (06:24)
[2024-03-31] MEDS: Gabapentin 600 MG Tablet PO (06:24)
[2024-03-31] MEDS: Scopolamine 1mg/72hr Patch 1 PATCH TD (06:24)
[2024-03-31 06:56] LABS: Magnesium 2.2 mg/dL (1.6-2.6)
--- NOTE | 2024-03-31 06:59 | PRE.ANES_ITS ---
ASA Classification* ASA Classification ASA Classification: 2 Assessment & Plan Anesthesia* Anesthesia Assessment Anesthesia Assessment: Discussed sedation and/or anesthesia options, risks, benefits, and alternatives with patient/parents/legal guardian/POA. Questions invited. The patient/parents/legal guardian/POA seems to understand and agrees to proceed with anesthesia plan. Reviewed the physical assessment, medical history, allergy history and patient home medications list prior to surgery/procedure/anesthetic and documented any changes. Performed airway and anesthesia risk assessments. Anesthesia Type Anesthesia Type: General Anesthesia Focused Assessment* Temperature: 97.5 F Blood Pressure: 115/62 Respiratory Rate: 16 Pulse Ox: 96 Airway Assessment Mouth opens: >3 cm Mallampati Score: II Focused Labs Anesthesia Preop lab: CBC WBC 9.3 K/mm3 (4.4-11.0) 01/23/23 04:35 RBC 3.68 M/mm3 (4.2-5.4) L 01/23/23 04:35 Hgb 11.5 g/dL (12.0-15.0) L 01/23/23 04:35 Hct 37.0 % (37-47) 01/23/23 04:35 Plt Count 189 K/mm3 (150-450) 01/23/23 04:35 CHEMISTRY Potassium 4.1 mmol/L (3.5-5.1) 01/23/23 04:35 Sodium 141 mmol/L (136-145) 01/23/23 04:35 Magnesium 2.2 mg/dL (1.6-2.6) 03/31/24 05:55 BUN 15 mg/dL (7-18) 01/23/23 04:35 Creatinine 0.75 mg/dL (0.55-1.02) 01/23/23 04:35 Glucose 114 mg/dL (74-106) H 01/23/23 04:35 POC Glucose 83 mg/dL (74-106) 01/21/23 06:30 COAG Pre-Assessment Diagnosis/Proposed Procedure Planned Operative Procedure(s): (B) Implant removal and capsulectomy bilateral, with reconstruction using deep inferior epigastric pelota maker flap Anesthesia History 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 When Was Last Pacemaker Check QUESTION #4 FULL TEXT: You/Your Family Experience fever (hyperthermia) with Anesthesia Last Oral Intake Last Oral intake: Last Oral Intake NPO since 03:30 03/31/24 06:13 Meds taken in AM with sips of Yes 03/31/24 06:13 water? Meds patient instructed to take am of surgery PONV PONV - science education professor: PONV - science education professor Female Yes 03/29/24 10:47 HX of Motion Sickness Yes 03/29/24 10:47 HX of N/V After Surgery No 03/29/24 10:47 Non-Smoker Yes 03/29/24 10:47 Duration of Surgery greater Yes 03/29/24 10:47 than 60 minutes Number of Risk Factors 4 03/29/24 10:47 PONV Score Severe Risk 03/29/24 10:47 Height & Weight Height & Weight: Anesthesia: Height & Weight Height 5 ft 5 in 03/31/24 06:13 Weight: 83.098 kg 03/31/24 06:13 Body Mass Index (BMI) 30.4 03/31/24 06:13 Respiratory Assessment Respiratory Assessment - science education professor: Respiratory Tract Infection Hx - science education professor Hx Respiratory Tract Infection No 03/29/24 10:47 STOP Sleep Apnea STOP Sleep Apnea - science education professor: STOP Sleep Apnea - science education professor Hx Hypertension No 03/29/24 10:47 Hx Sleep Apnea No 03/29/24 10:47 CPAP BIPAP Do you snore loudly (louder No 03/29/24 10:47 than talking or can be heard Do you often feel tired/ No 03/29/24 10:47 fatigued/ sleepy during daytime? Has anyone observed you stop No 03/29/24 10:47 breathing during sleep? STOP Results Negative 03/29/24 10:47 QUESTION #5 FULL TEXT : Do you snore loudly (louder than talking or can be heard through closed doors)? Tobacco Use History Tobacco Use History - science education professor: Tobacco Use History - science education professor Tobacco Use Smoking Status Former smoker 03/29/24 10:47 Hx Tobacco Use No 03/29/24 10:47 Years Smoking Packs Smoked per Day Smoking Cessation Date was Yes - quit smoking within 15 03/29/24 10:47 within the last 15 years years Hx Smoking Cessation Date 03/16/12 03/29/24 10:47 Hx Smoking Cessation No 03/29/24 10:47 Counseling Hematologic Medial History Hematologic Hx - science education professor: Hematologic Medical Hx - internal controls specialist Hx of Blood Transfusion No 03/29/24 10:47 Hx of Transfusion in last 3 No 03/29/24 10:47 Months Date of Last Transfusion (if within last 3 months) Ever experience any problems No 03/29/24 10:47 with transfusion(s)? Specify any problems Hx of Preganancy in last 3 No 03/29/24 10:47 Months Nurse Filling Out Transfusion DSCHRIBER 03/29/24 10:47 & Questions: Date: 03/29/24 03/29/24 10:47 Time: 10:47 03/29/24 10:47 Patient unable to answer at this time (ie. confused, unrespo /Reproduction History /Reproductive History - science education professor: /Reproductive Hx- science education professor Hx Now No 03/29/24 10:47 Gestational Age (in weeks): EDC: Hx Hx Para Hx Section SAB No 03/29/24 10:47 Active Medications Active Medications: Current Medications Generic Name Dose Route Start Last Admin Trade Name Gill PRN Reason Stop Dose Admin Acetaminophen 1,000 mg 03/31/24 07:30 03/31/24 06:24 Acetaminophen 500 Mg Tablet PO 03/31/24 07:31 1,000 mg X1 ONE Administration Gabapentin 600 mg 03/31/24 07:30 03/31/24 06:24 Gabapentin 600 Mg Tablet PO 03/31/24 07:31 600 mg X1 ONE Administration Heparin Sodium (Porcine) 5,000 units 03/31/24 07:30 Heparin Injection 5,000 Units/Ml Syringe SC 03/31/24 07:31 X1 ONE Clindamycin Phosphate 900 mg in 50 mls @ 75 mls/hr 03/31/24 07:30 Cleocin IV 03/31/24 08:09 PREOP ONE Lactated Ringer's 1,000 mls @ 40 mls/hr 03/31/24 07:30 03/31/24 06:23 IV 40 mls/hr .Q25H DINORAH Administration Lactated Ringer's 1,000 mls @ 60 mls/hr 03/31/24 08:30 IV .[id number] DINORAH Insulin Human Lispro 1 - 6 unit 03/31/24 07:30 Insulin Lispro 100 Unit/Ml Insuln.Pen SC 03/31/24 13:30 Q4H PRN PRN BG>/= 180, SEE PROTOCOL Protocol Scopolamine HBr 1 patch 03/31/24 07:30 03/31/24 06:24 Scopolamine 1mg/72hr Patch TD 03/31/24 07:31 1 patch X1 ONE Administration PFSH Medical History Deformity of reconstructed breast GERD (gastroesophageal reflux disease) Resistance to other single specified antibiotic History of bilateral removal of breast implants Infection of breast implant Exposed breast implant Failed skin graft Failure of flap graft Methicillin resistant Staphylococcus epidermidis infection Nonhealing surgical wound PONV (postoperative nausea and vomiting) Cancer phobia Wears contact lenses Wears glasses Alcohol use Migraine headache Prophylactic ovary removal Prophylactic breast removal 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 Genetic 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 Cancer phobia Monoallelic mutation of DEISY gene Family history of breast cancer Former smoker Ptosis of both breasts Pneumonia Frequent headaches Allergies Home Medications ?Medication ?Instructions ?Recorded ?Last Taken ?Type ibuprofen 800 mg tablet 800 mg PO Q12H PRN PRN Migraine 03/28/22 03/24/24 History Headache omeprazole 40 mg capsule,delayed 40 mg PO DAILY gerd 03/28/22 03/31/24 04:00 History release sumatriptan succinate 100 mg tablet 100 mg PO PRN PRN MIGRAINE 03/28/22 Unknown History valacyclovir 500 mg tablet 500 mg PO DAILY PRN cold sores 03/28/22 03/30/24 06:30 History Allergy/AdvReac Type Severity Reaction Status Date / Time Penicillins (PCN) Allergy Hives, RASH Verified 03/31/24 06:10 Family History Grandmother Breast cancer Aunt Breast cancer Father Diabetes Surgical History Hx of breast reconstruction History of prophylactic mastectomy of both breasts Status post implant removal from both breasts History of reconstruction of both breasts Hx of bilateral mastectomy History of placement of ear tubes History of bilateral breast implants Status post bilateral breast reconstruction Status post bilateral mastectomy History of bilateral oophorectomy History of bladder surgery History of hysterectomy Social History Smoking Status: Former smoker alcohol intake: current substance use type: does not use additional social history: Does Not Take Aspirin Does Take Ibuprofen As Needed Review of Systems (Anesthesia) ROS Narrative System reviewed and no additional complaints, except as documented.
[2024-03-31] MEDS: Magnesium 1 GM over 15 mins IV (07:08)
--- NOTE | 2024-03-31 07:09 | PCM.HP.STD ---
[facility] - General General Date of Admission: 03/31/24 [facility] Narrative Irene Lopez is a 47-year-old female that presents today for follow-up following her breast reconstruction with Dr. Barrett who is her plastic surgeon previously at our practice. Side of Diagnosis: Gene mutation, underwent prophylactic mastectomies and reconstruction (no history of chemo or radiation) Prior Abdominal Surgery: Hysterectomy (prophylactic related to the gene mutations, through a transverse Pfannenstiel incision) Bra Size: Would like to be at least a D cup. Feels like her breasts are currently too small. Per chart review, patient had had her last surgery with Dr. Barrett on 21 January 2023 where she underwent the fall: left breast reconstruction with removal of saline tissue expanders and placement of cohesive gel implant (630 ml) with MTF FlexHD acellular dermal matrix graft, (Pliable Shaped Perforated, Large, Thick, 13x22 cm, 2 pieces) and revision reconstructed left breast with superior capsulotomy and excision excess mastectomy skin contour deformity laterally and revision asymmetric inframammary fold with internal capsular plication and right breast reconstruction with removal of saline tissue under trimmer with replacement cohesive gel implant (630 ml) and placement of MTF FlexHD acellular dermal matrix graft, (Pliable Shaped Perforated, Large, Thick, 13x22 cm, 2 pieces) and revision reconstructed right breast with superior capsulotomy and excision excess mastectomy skin contour deformity laterally and revision asymmetric inframammary fold with internal capsular plication She has concerns about the shape of her breasts and she does not like where her nipples are located over the scar. She has noticed wrinkling of the implants on both sides, worse on the right. She would like to discuss options of fat grafting versus a bigger implant versus autologous reconstruction. Of note she wanted to keep her nipples through the reconstructive process but is now disappointed with the results of the nipples. She had wound healing problems on the nipples and there is significant scarring and total loss of projection. She had a total of 4 surgeries thus far for her breasts, including the following: (1) mastectomy with tissue under trimmer placement, (2) explantation of the tissue expanders from infection, (3) placement of new tissue expanders, (4)exchange for permanent implants. 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 She is overall healthy. She does not smoke. The patient reports that they do not have any personal or family history of bleeding or clotting disorders. She had 3 children through vaginal 18 December 2023: Patient presents today with chief complaint of unhappiness with implant-based reconstruction. She reports significant rippling as well as tight/uncomfortable scarring around the implant that is most noticeable when she is moving her upper extremities/lifting. She would like to have a more natural look and feel with autologous tissue. She has decided that she wants to pursue autologous breast reconstruction. She is also unhappy with upper pole fullness. She would like to eventually get tattoos for nipples. 03 Mar 2024: Continues to report significant rippling and contour deformities in her breasts. She has persistent tight/uncomfortable scarring around the implants on both sides that is most noticeable when she is moving her upper extremities/lifting. She would like to have a more natural look and feel with autologous tissue (continues to want a MAKENNA flap). When I talked to her about implants today (and the option of just doing implant revisions and fat grafting), she said I've already had 4 surgeries and I'm not happy with my implants and my reconstruction, I would like to be at least a little happy after all of these surgeries. I've researched the MAKENNA flap since we've talked and I want to try this. Of note, she lost her son since our last visit (he 1 month ago). She is doing remarkably well with the terrible adjustment that she has had to make, and reports that she's still in a good place mentally and can handle a big surgery (would like to proceed with surgery in March). 30 Mar 2024: Here for preoperative markings/discussion. Doing well overall. No significant changes. Current Encounter (DATE OF SURGERY H&P UPDATE): I saw and examined the patient this morning in pre-operative holding. We discussed risks and benefits of today's surgery and they would like to proceed. NO CHANGE in health history since last seen and evaluated. Ready to proceed with surgery. [facility] Medical History Deformity of reconstructed breast GERD (gastroesophageal reflux disease) Resistance to other single specified antibiotic History of bilateral removal of breast implants Infection of breast implant Exposed breast implant Failed skin graft Failure of flap graft Methicillin resistant Staphylococcus epidermidis infection Nonhealing surgical wound PONV (postoperative nausea and vomiting) Cancer phobia Wears contact lenses Wears glasses Alcohol use Migraine headache Prophylactic ovary removal Prophylactic breast removal 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 Genetic 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 Cancer phobia Monoallelic mutation of DEISY gene Family history of breast cancer Former smoker Ptosis of both breasts Pneumonia Frequent headaches Allergies Home Medications ?Medication ?Instructions ?Recorded ?Last Taken ?Type ibuprofen 800 mg tablet 800 mg PO Q12H PRN PRN Migraine 03/28/22 03/24/24 History Headache omeprazole 40 mg capsule,delayed 40 mg PO DAILY gerd 03/28/22 03/31/24 04:00 History release sumatriptan succinate 100 mg tablet 100 mg PO PRN PRN MIGRAINE 03/28/22 Unknown History valacyclovir 500 mg tablet 500 mg PO DAILY PRN cold sores 03/28/22 03/30/24 06:30 History Allergy/AdvReac Type Severity Reaction Status Date / Time Penicillins (PCN) Allergy Hives, RASH Verified 03/31/24 06:10 Family History Grandmother Breast cancer Aunt Breast cancer Father Diabetes Surgical History Hx of breast reconstruction History of prophylactic mastectomy of both breasts Status post implant removal from both breasts History of reconstruction of both breasts Hx of bilateral mastectomy History of placement of ear tubes History of bilateral breast implants Status post bilateral breast reconstruction Status post bilateral mastectomy History of bilateral oophorectomy History of bladder surgery History of hysterectomy Social History Smoking Status: Former smoker alcohol intake: current substance use type: does not use additional social history: Does Not Take Aspirin Does Take Ibuprofen As Needed Vital Signs Vital Signs Vital Signs: 03/31/24 06:12 03/31/24 06:13 03/31/24 06:59 Temperature 97.5 F L 97.5 F L Temperature Source Temporal Respiratory Rate 16 16 Respiratory Pattern Normal Blood Pressure 115/62 115/62 Blood Pressure Mean 79 Blood Pressure Source Monitor Blood Pressure Position Semi-Fowlers Blood Pressure Location Left Arm Pulse Ox 96 96 Oxygen Delivery Method Room Air Weight Weight: 183 lb 3.2 oz Body Mass Index (BMI) 30.4 Physical Exam Narrative EXAM: A&O x3, NAD A female manager 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 Back Exam: No scar; latissimus dorsi muscle function appears to be intact Abdominal Exam: soft, non-tender, no palpable hernias, non-distended, transverse Pfannenstiel scar, potential donor site for relatively large breast. She has a wide diastases. Some of the excess adipose tissue on her abdomen is definitely intra-abdominal. Gluteal Exam: Deferred Deferred examination of medial thigh potential donor site. Breast Exam: Asymmetry: Yes Masses: No Axillary Lymphadenopathy: None Scars: Hitchcock pattern scars from previous reconstruction and scarring around her [place] nipples with loss of projection. Ptosis: No ptosis Nipples are high on the most projecting portion of the breast mound Significant contour abnormalities and rippling around the breast implants bilaterally, with a large divot/contour on the right lateral breast mound. Grade 2 capsules bilaterally. Note: measurements are in centimeters SN to NIPPLE:? L: 22 ? ?R: 21 IMF to NIPPLE: ? ? ? L: 10? ? R: 8 WIDTH: ? L: 16 ? R: 15.5 Const General: cooperative Resp Effort & Inspection: normal respiratory effort Auscultation: clear to auscultation bilaterally Cardio Rate: regular rate Rhythm: regular rhythm Extrem Other: No varicosities Psych Appearance: grossly normal and well kempt Results Lab / Micro Data Labs: Laboratory Results - last 24 hr 03/31/24 05:55: Magnesium 2.2 Assessment & Plan Assessment/Plan (1) Deformity of reconstructed breast: (2) History of prophylactic mastectomy of both breasts: (3) Prophylactic breast removal: PLAN: Plan This is a 47-year-old woman with history of prophylactic mastectomy and reconstruction. An extensive discussion was undertaken with the patient detailing the risks, benefits and alternatives to further implant-based reconstruction versus autologous reconstruction. She was never offered autologous reconstruction with a denitrator operator flap until now. We talked about a potential donor site from her abdomen for reconstruction in which case she would no longer need to monitor implants or deal with the effects of implants including rippling or capsular contracture. We also talked about the risk of flap failure, donor site complications (including bulging/hernia and poor scaring/high scar and belly button deformities/healing problems), and need for repeat surgeries, need to be flat for a while if the reconstruction fails followed by potential reconstruction with implant-based options. She is a good candidate for bilateral MAKENNA flap after implant removal. I told her that stage 1 of the surgery would be the implant removal/MAKENNA, and stage 2 would be revision (removal of the skin paddle/soft tissue rearrangement to improve breast aesthetic as well as possibly multiple rounds of fat grafting/small revisions). She was accepting of this plan. She does not want any further operations on her nipples and is actually happy that she does not have any projection as she can wear clothing without worrying about nipple projection, she would like to get a tattoo in the future. She is O.K. with any scaring around the nipples, beneath them, or even through them (remove them) as they are flat, scarred and without sensation. She is accepting of hitchcock pattern scars ultimately for the breast mound following reconstruction. Finally, she understands that the size is dependent on the abdominal flap, and we can fat graft afterwards, but are limited by the flap size. I talked the patient extensively about bleeding (hematoma risks, intra-operative bleeding/blood loss), infection, damage to surrounding structures, surgical site dehiscence and wound formation, need for wound care, need for repeat operations, failure to obtain the desired result, DVT/PE, and the risks of anesthesia including . The benefits and alternatives of this surgery were thoroughly discussed. All of their questions were answered, and they agreed to proceed with surgery. My partner, Dr. Haywood, will be assisting with the surgery. I talked to Ms. CandelariaSaragosa about this today and she is in agreement and appreciative. Photographs taken again today. 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 We discussed planned incisions. Patient understands. If flap not able to be successfully completed, then she understands we will close flat and plan further reconstruction at a later time. Reiterated the above noted risks and the benefits and alternatives to autologous breast reconstruction. INTERVAL H&P PLAN, DATE OF SURGERY: We will proceed with surgery today. Also discussed mesh (possible), vein grafts (possible) and possible nerve repairs/nerve grafts.
[2024-03-31] MEDS: Clindamycin 900 MG/50 ML BAG 75 MG IV ×2 (08:10→14:11)
[2024-03-31] MEDS: Lidocaine 1% /Epi 1:100 (20ml) 20 ML Vial (08:15)
[2024-03-31] MEDS: Heparin Injection 5,000 UNITS/ML Syringe 5000 UNITS SC (08:23)
[2024-03-31 08:28] LABS: Bedside Glucose 109 mg/dL (74-106)
[2024-03-31] MEDS: Heparin 10,000 UNITS/10 ML Vial 10000 UNITS (14:57)
[2024-03-31] MEDS: Heparin Injection (Vial) 5,000 UNIT/ML VIAL 5000 UNIT ×2 (14:58→18:34)
[2024-03-31] MEDS: Methylene Blue 1% 100 MG/10 ML VIAL (17:51)
[2024-03-31] MEDS: Lidocaine 2% (20 ml mdv) 20 ML Vial (18:32)
[2024-03-31] MEDS: Bupivacaine 0.25% 30 ML Vial (19:00)
[2024-03-31] MEDS: BUPIVACAINE LIPOSOME/PF 20 ML VIAL OPERA.SITE (19:00)
--- NOTE | 2024-03-31 20:06 | PCM.POST.ANE ---
Anesthesia: Postop Eval I Current Vital Signs Temperature: 96.8 F Pulse Rate: 92 Blood Pressure: 167/91 Respiratory Rate: 14 Pulse Ox: 99 Oxygen Delivery Method: Simple Mask Oxygen Flow Rate (L/min): 8 Assessment Airway patent: Yes Spontaneous unlabored respirations: Yes Mental status: Awake and Calm nausea: No Vomiting: No Anesthesia Complication: No Fluid Hydration Crystalloid volume administer (ml): 7,280 Total IV fluid infused: 7,280 Progress Note Post-operative progress note: Patient extubated. Spontaneously breathing. Transport to ICU with oxygen and monitors for close monitoring of the perfusion in the flap. Anesthesia document: Postop Eval 1 completed: Yes
--- NOTE | 2024-03-31 20:39 | POSTOPAN2_ITS ---
Anesthesia Postop Eval I Sum Postop Eval Completion status Anesthesia document: Postop Eval 1 completed: Yes Anesthesia Postop Eval I Summary Anesthesia Postop Eval I Summary: Anesthesia Postop Eval I: Assessment Summary Airway patent Yes 03/31/24 20:24 ECHOCARDIOGRAPHY TECHNOLOGIST.GDOTT Spontaneous unlabored Yes 03/31/24 20:24 ECHOCARDIOGRAPHY TECHNOLOGIST.GDOTT respirations Mental status Awake,Calm 03/31/24 20:24 ECHOCARDIOGRAPHY TECHNOLOGIST.GDOTT nausea No 03/31/24 20:24 ECHOCARDIOGRAPHY TECHNOLOGIST.GDOTT Vomiting No 03/31/24 20:24 ECHOCARDIOGRAPHY TECHNOLOGIST.GDOTT Anesthesia Postop Eval I: Fluid Summary Crystalloid volume administer 7,280 03/31/24 20:24 ECHOCARDIOGRAPHY TECHNOLOGIST.GDOTT (ml) Colloids volume administered ( ml) Blood Product volume administered (ml) Total IV fluid infused 7,280 03/31/24 20:24 ECHOCARDIOGRAPHY TECHNOLOGIST.GDOTT Anesthesia Postop Eval I: Summary Notes Anesthesia Complication No 03/31/24 20:24 ECHOCARDIOGRAPHY TECHNOLOGIST.GDOTT Anesthesia Complication Comment: Post-operative progress note Patient extubated. 03/31/24 20:31 ECHOCARDIOGRAPHY TECHNOLOGIST.GDOTT Spontaneously breathing. Transport to ICU with oxygen and monitors for close monitoring of the perfusion in the flap. Anesthesia: Postop Eval II Evaluation Mental status: Awake and Calm Pain Level: 1 nausea: No Vomiting: No Complications Anesthesia Complication: No
--- NOTE | 2024-03-31 20:39 | PCM.POSTANE2 ---
Anesthesia Postop Eval I Sum Postop Eval Completion status Anesthesia document: Postop Eval 1 completed: Yes Anesthesia Postop Eval I Summary Anesthesia Postop Eval I Summary: Anesthesia Postop Eval I: Assessment Summary Airway patent Yes 03/31/24 20:24 CALENDAR CONTROL CLERK BLOOD BANK.[email or web address] Spontaneous unlabored Yes 03/31/24 20:24 CALENDAR CONTROL CLERK BLOOD BANK.GDOTT respirations Mental status Awake,Calm 03/31/24 20:24 CALENDAR CONTROL CLERK BLOOD BANK.GDOTT nausea No 03/31/24 20:24 CALENDAR CONTROL CLERK BLOOD BANK.GDOTT Vomiting No 03/31/24 20:24 CALENDAR CONTROL CLERK BLOOD BANK.GDOTT Anesthesia Postop Eval I: Fluid Summary Crystalloid volume administer 7,280 03/31/24 20:24 CALENDAR CONTROL CLERK BLOOD BANK.GDOTT (ml) Colloids volume administered ( ml) Blood Product volume administered (ml) Total IV fluid infused 7,280 03/31/24 20:24 CALENDAR CONTROL CLERK BLOOD BANK.GDOTT Anesthesia Postop Eval I: Summary Notes Anesthesia Complication No 03/31/24 20:24 CALENDAR CONTROL CLERK BLOOD BANK.GDOTT Anesthesia Complication Comment: Post-operative progress note Patient extubated. 03/31/24 20:31 CALENDAR CONTROL CLERK BLOOD BANK.GDOTT Spontaneously breathing. Transport to ICU with oxygen and monitors for close monitoring of the perfusion in the flap. Anesthesia: Postop Eval II Evaluation Mental status: Awake and Calm Pain Level: 1 nausea: No Vomiting: No Complications Anesthesia Complication: No
[2024-03-31] MEDS: Ondansetron 4 MG/2 ML Vial IV (21:36)
--- NOTE | 2024-03-31 23:04 | PN.SURG_ITS ---
Subjective Subjective Post op day 0 (post op check) Doing well. Pain controlled. Objective Data Objective Data Vital Signs: Vital Signs Temp Pulse Resp BP Pulse Ox O2 Del Method O2 Flow Rate 98.3 F 86 16 153/92 H 96 Nasal Cannula 2 03/31/24 20:33 03/31/24 22:00 03/31/24 22:00 03/31/24 22:00 03/31/24 22:00 03/31/24 22:00 03/31/24 22:00 Oxygen Flow Rate (L/min) 2 Oxygen Delivery Method Nasal Cannula Weight: 183 lb 3.2 oz Body Mass Index (BMI) 30.4 Intake & Output: Intake and Output for Last 24 Hours 03/29/24 03/30/24 03/31/24 23:59 23:59 23:59 Intake Total 100 / 100 Output Total 1480 / 1480 Balance -1380 / -1380 Lab / Micro Data Labs: Laboratory Results - last 24 hr 03/31/24 05:55: Magnesium 2.2 03/31/24 06:09: POC Glucose 109 H 03/31/24 07:35: Blood Type O POSITIVE, Antibody Screen NEGATIVE Physical Exam Narrative Female manager metal present during my exam CHEST: Flaps warm and well perfused. No signs of bleeding/hematoma. Drains appropriate. Skin paddles with good capillary refill. Vioptix acceptable and consistent. No signs of congestion. Const alert and oriented x3 Resp normal respiratory effort Cardio Rate: regular rate GI GI Narrative: Abdomen flat, healthy appearing. Incisions c/d/i. Drains appropriate Assessment & Plan Assessment/Plan (1) History of reconstruction of both breasts: PLAN: Expected course Continue NPO in ICU with q1 hour flap checks.
[2024-03-31] MEDS: HYDROmorphone 0.5 MG/0.5 ML SYRINGE IV (23:08)
[2024-03-31] MEDS: Phenol/Sodium Phenolate 180ML 3 SPRAY MUCOUS MEM (23:52)
[2024-03-31] MEDS: Clindamycin 600 MG/50 ML BAG 100 MG IV (23:53)
[2024-04-01] VITALS (13 sets, daily range): BP systolic 101–150; BP diastolic 61–96; PULSE 77–100; RESP 15–21; TEMP 37.1–38.5; O2SAT 93–98; BMI 31.9
[2024-04-01] MEDS: Phenol/Sodium Phenolate 180ML 3 SPRAY MUCOUS MEM (02:18)
[2024-04-01] MEDS: Acetaminophen 325 MG Tablet 650 MG PO ×4 (02:18→21:39)
[2024-04-01] MEDS: HYDROmorphone 0.5 MG/0.5 ML SYRINGE IV ×3 (02:18→07:43)
[2024-04-01] MEDS: Lactated Ringers 1,000 ML 75 ML IV (02:19)
[2024-04-01] MEDS: 0.9% Saline Lock 10 ML Syringe IV (04:29)
[2024-04-01 04:32] LABS: Absolute Lymphocyte Count 1.75 X10^3/uL (0.83-4.51); Basophil# 0.06 X10^3/uL; Basophil% 0.5 % (0-1); Eosinophil# 0.09 X10^3/uL; Eosinophils% 0.7 % (0-5); Hematocrit 33.8 % (37-47); Hemoglobin 11.2 g/dL (12.0-15.0); Lymphocyte # 1.75 X10^3/ul (0.83-4.51); Lymphocyte % 13.5 % (19-41); Mean Corp Hgb Conc 33.1 g/dL (32-36); Mean Corpuscular Hgb 32.4 pg (27.0-32.0); Mean Corpuscular Volume 97.7 fL (81-99); Mean Platelet Vol. 11.1 fl (6.2-12.0); Monocyte# 0.97 X10^3/uL; Monocyte% 7.5 % (0-10); NRBC Flagged by Analyzer 0 % (0-5); Neutrophil # 10.02 X10^3/uL (2.7-7.7); Neutrophil % 77.2 % (47-70); Platelet Count 188 K/mm3 (150-450); RBC Distribution Width CV 12.6 % (11.6-14.6); RBC Distribution Width SD 44.9 fl (35.1-43.9); Red Blood Count 3.46 M/mm3 (4.2-5.4)
[2024-04-01 04:45] LABS: Anion Gap 5 (5-15); BUN 9 mg/dL (7-18); BUN/Creat Ratio 12.1 RATIO (10-20); Calcium,Total 8.1 mg/dL (8.5-10.1); Chloride 107 mmol/L (98-107); Creatinine, Serum 0.74 mg/dL (0.55-1.02); EST Glomerular Filtration Rate 88 mL/min (>60); Est Glom Filt Rate - Afr Amer 106 mL/min (>60); Estimated Creatinine Clearance 99.13 ml/min; Glucose 130 mg/dL (74-106); Potassium 4.2 mmol/L (3.5-5.1); Sodium Level 138 mmol/L (136-145)
[2024-04-01] MEDS: oxyCODONE 5 MG Tablet PO ×3 (05:15→17:01)
[2024-04-01] MEDS: Clindamycin 600 MG/50 ML BAG 100 MG IV ×3 (05:16→18:19)
--- NOTE | 2024-04-01 07:48 | NURSING ---
this RN performed hourly vascular checks of bilateral breast flaps and hourly monitoring of the vioptix machine 2015: bilateral breast flaps: warm, pink, capillary refill < 3 seconds Vioptix: right breast 68%, left breast 51% 2100: bilateral breast flaps: warm, pink, capillary refill < 3 seconds Vioptix: right breast 68%, left breast 48% 0: bilateral breast flaps: warm, pink, capillary refill < 3 seconds Vioptix: right breast 72%, left breast 50% 2300: bilateral breast flaps: warm, pink, capillary refill < 3 seconds Vioptix: right breast 72%, left breast 54% 0000: bilateral breast flaps: warm, pink, capillary refill < 3 seconds Vioptix: right breast 71%, left breast 53% 0100: bilateral breast flaps: warm, pink, capillary refill < 3 seconds Vioptix: right breast 71%, left breast 50% 0200: bilateral breast flaps: warm, pink, capillary refill < 3 seconds Vioptix: right breast 70%, left breast 50% 0300: bilateral breast flaps: warm, pink, capillary refill < 3 seconds Vioptix: right breast 70%, left breast 50% 0400: bilateral breast flaps: warm, pink, capillary refill < 3 seconds Vioptix: right breast 71%, left breast 46% 0500: bilateral breast flaps: warm, pink, capillary refill < 3 seconds Vioptix: right breast 70%, left breast 44% 0600: bilateral breast flaps: warm, pink, capillary refill < 3 seconds Vioptix: right breast 69%, left breast 43% 0700: bilateral breast flaps: warm, pink, capillary refill < 3 seconds Vioptix: right breast 68%, left breast 41%
--- NOTE | 2024-04-01 08:30 | PN.SURG_ITS ---
Subjective Subjective Post op day 1 from bilateral MAKENNA flaps. Doing well. Pain controlled overall with current pain regimen. Discussed right upper pole breast Objective Data Objective Data Vital Signs: Vital Signs Temp Pulse Resp BP Pulse Ox O2 Del Method O2 Flow Rate 101.0 F H 99 21 H 101/69 95 Nasal Cannula 3 04/01/24 08:00 04/01/24 08:00 04/01/24 08:00 04/01/24 08:00 04/01/24 08:00 04/01/24 08:00 04/01/24 08:00 Oxygen Flow Rate (L/min) 3 Oxygen Delivery Method Nasal Cannula Weight: 192 lb 0.362 oz Body Mass Index (BMI) 31.9 Intake & Output: Intake and Output for Last 24 Hours 03/30/24 03/31/24 04/01/24 23:59 23:59 23:59 Intake Total 783.33 / 783.33 100 / 100 Output Total 1530 / 2780 1940 / 1940 Balance -746.67 / -1996.67 -1840 / -1840 Lab / Micro Data 04/01/24 04:20 04/01/24 04:20 Labs: Laboratory Results - last 24 hr 03/31/24 07:35: Blood Type O POSITIVE, Antibody Screen NEGATIVE 04/01/24 04:20: WBC 13.0 H, RBC 3.46 L, Hgb 11.2 L, Hct 33.8 L, MCV 97.7, MCH 32.4 H, MCHC 33.1, RDW Std Deviation 44.9 H, RDW Coeff of Khushi 12.6, Plt Count 188, MPV 11.1, Immature Gran % (Auto) 0.600, Neut % (Auto) 77.2 H, Lymph % (Auto) 13.5 L, [place] % (Auto) 7.5, Eos % (Auto) 0.7, Baso % (Auto) 0.5, Absolute Neuts (auto) 10.0 H, Absolute Lymphs (auto) 1.75, Nucleated RBC % 0, Sodium 138, Potassium 4.2, Chloride 107, Carbon Dioxide 26.0, Anion Gap 5, BUN 9, Creatinine 0.74, Estim Creat Clear Calc 99.13, Est GFR (MDRD) Af Amer 106, Est GFR (MDRD) Non-Af 88, BUN/Creatinine Ratio 12.1, Glucose 130 H, Calcium 8.1 L Physical Exam Narrative Female manager installation present during my exam CHEST: Flaps warm and well perfused. No signs of bleeding/hematoma. Drains appropriate. Skin paddles with good capillary refill. Vioptix acceptable and consistent. No signs of congestion. Triphasic signal on skin paddles bilaterally. Const alert and oriented x3 Resp normal respiratory effort Cardio Rate: regular rate GI GI Narrative: Abdomen flat, healthy appearing. Incisions c/d/i. Drains appropriate Narrative: Urine clear Extremity Extremity Narrative: SCDs on and activated No lower extremity swelling. Assessment & Plan Assessment/Plan (1) History of reconstruction of both breasts: PLAN: Neuro: Pain controlled, but will try to get off of IV pain medications today by adding Neurontin and Celebrex Cardiovascular: No concerns at this time, DC telemetry Resp: Incentive Spirometer consistently (discussed) Abdomen: Miralax for constipation FEN: Clears until afternoon flap check, then regular diet. Electrolytes stable. Hem: Hgb 11.2 (11.5 preop). SCDs and Hep 5K TID for DVT prophylaxis Plan for chair today (3 hours) and DC Cindy Continue Q1 hour flap checks in the ICU Charges/Coding Procedures Integumentary [id number]: [id number] Global Visit
[2024-04-01] MEDS: Gabapentin 100 MG Capsule PO ×3 (09:21→21:39)
--- NOTE | 2024-04-01 10:15 | CASEMGMT ---
RN CM Face to Face with patient for initial transition planning/care coordination assessment. RN CM introduced self and role at [facility]. Patient lying in bed, alert and oriented. Patient willing to participate in assessment and is able to answer all questions appropriately. Care providers, pharmacy, and demographics verified. Strata: 1 PCP: Olena Specialists: cezar Allen Preferred Pharmacy: [facility] [place] Insurance: [place] Prescription Benefit: yes Living Will/HPOA: none LNOK: significant other Living Arrangements: Patient lives with significant other in a single story home with 4 steps to enter. Patient is independent at home. Transportation: self, significant other DME/HHC: Patient denies DME in the home. No previous HHC or SNF. Patient states she will be able to manage drains on her own. Will monitor for home oxygen at discharge, prefers [employer]. Patient wishes to discharge home, denies need for home health at this time. Patient states she has no further needs or concerns at this time. CM to follow for discharge planning needs that may arise. Disposition Plan: Patient to discharge home with family support and follow-up plans in place. Claudia ANNA, RN, CM
--- NOTE | 2024-04-01 10:20 | OP.PCM_ITS ---
Operative Report (Standard) Operative Information Date of Procedure: 03/31/24 Pre-Operative Diagnosis: History of breast reconstruction with capsular contracture/pain Post-Operative Diagnosis: Same Surgery/Procedure Performed: 1. Removal of right partial submuscular breast implant and acellular dermal matrix with capsulectomy (CPT 20689) 2. Removal of left partial submuscular breast implant and acellular dermal matrix with capsulectomy (CPT 83827 - 50 modifier) 3. Reconstruction of right breast with abdominally-based free tissue transfer via MAKENNA flap with one medial row and one lateral row data capture specialist from the left abdomen Couple size 3 mm (CPT: 06873) 4. Reconstruction of left breast with abdominally-based free tissue transfer via MAKENNA flap with two lateral row perforators from the right abdomen Timers Inspector size 3 mm (CPT: 36024-85 modifier) 5. Use of fluorescence angiography for assessment of the flaps intra-operatively (using SPY machine), (CPT: 13839) 6. Nerve reconstruction with oxygen allograft and nerve wrap to the third intercostal nerve, left chest, from nerve on the right MAKENNA flap, (CPT: 21850) concrete analyst: Yes Precision Dyer: Mirza Lanza Tasks completed by purchasing assistant: Retracting Additional care management assistant?: Yes Additional Machining Manager #2: Pamela Berman Tasks completed by care management assistant #2: Retracting Type of Anesthesia: General/Supplemental (20 cc of Exparel mixed with 0.25% Marcaine and 200 cc of injectable saline ) RN Documented Start/Stop Times: Operation Date: 03/31/24 07:30 Case Time Into Pre-Op 03/31/24 05:38 Out of Pre-Op 03/31/24 07:51 Anesthesia Start 03/31/24 07:52 Into Room 03/31/24 07:52 Procedure Start 03/31/24 08:34 Procedure End 03/31/24 19:24 Anesthesia End 03/31/24 19:59 Out of Room 03/31/24 19:59 Procedure Start Time: 08:34 Procedure Stop Time: 19:24 Select all DRAINS/GRAFTS/IMPLANTS that apply: Drains (Four 19 Fr Anjel drains ) Drain details: Two in the abdomen and one in each breast Estimated Blood Loss: 200 cc Specimen collected: Yes Description of specimen(s) removed: Breast implants and capsules (bilateral) Description of surgery: Primary Surgeon: Marlon Allen MD Co-surgeon/assisting surgeon: Abby Haywood MD (assisted with capsulectomies/implant removal, closure of the abdomen). Ischemia times: * Right breast 14:09 - 15:16 * Left breast 15:45 - 16:49. 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 She had several complications with her implant-based reconstruction, most notably pain and contracture, worse on the right side than the left. She requested autologous reconstruction with a deep inferior epigastric data capture specialist flap as she reported that she had not been offered this option during initial review and consultation. She understands the risks, benefits, and alternatives to the procedures, and would like to proceed. Procedure Details: Consent was obtained preoperatively.? The patient was brought the operating room placed on table in supine position.? A sign in was completed and general anesthesia was induced.? The patient was prepped and draped with chlorhexidine in the usual sterile fashion.? A timeout was completed. The right and left sides were completed in a similar fashion unless otherwise noted. We began by removing the breast tissue expanders.? This was accomplished by incising the previous horizontal incision used for mastectomy.? We dissected down to the skin subcutaneous tissue until we encountered the capsule.? We then evaluated the capsule and performed a capsulectomy as required to achieve a favorable outcome. The capsule and the implant were removed together and sent for pathologic evaluation. During the right capsulectomy implant removal, a buttonhole unfortunately occurred on the right upper pole of the mastectomy flap laterally where there was an area of tethered scar. The wound was excised full- thickness with a 15 blade scalpel and closed with 3-0 Vicryl deep dermal interrupted sutures and a 4-0 Monocryl running subcuticular suture. We then began vessel exposure by incising the pectoralis major over the third intercostal cartilage.? We dissected down through the the muscle along its fibers until we identified the medial cartilaginous portion of the third rib.? The perichondrium was incised with a [place] elevator and the rib was removed with a rongeur.? The posterior perichondrium was also excised thus exposing the int ernal mammary vessels.? A 19 [place] Anjel drain was then placed within the breast pocket and secured to the skin with a 2-0 Monocryl.? A field block was completed with Exparel and Marcaine. We then turned our attention to elevation of the abdominally-based free tissue transfers.? A fusiform abdominal incision was used to transfer the right hemiabdomen to the left chest and left hemiabdomen to the right chest.? We dissected down to the skin subcutaneous tissue and did not see any remnant of the superficial inferior epigastric veins (previous hysterectomy Pfannenstiel incision). We facilitated dissection lateral to medial trajectory identifying the medial and lateral Row perforators.? We then designed a flap including one medial row and one lateral row data capture specialist from the left abdomen and two lateral row perforators from the right abdomen. Care was taken to preserve the motor nerves, especially when dissecting the lateral. We incised the abdominal fascia and performed a muscle and nerve sparing approach essentially isolating the flap on the above perforators on the deep inferior epigastric vessel essentially to its origin past the H-branches of the veins.? A sensory nerve at approximately the T10-T11 level was preserved with the right flap.? Fluorescence angiography was then performed with 3 cc of ICG followed by 10 cc flush and adequate perfusion of the flaps was confirmed. At that time the flap was rendered ischemic and transferred to the contralateral chest. We then performed microsurgical portion of procedure by performing an end-to-end anastomosis of the internal mammary vein using a surgical microscope and a 3 mm purchasing assistant for the right flap and 3 mm purchasing assistant for the left chest? The arterial anastomoses was accomplished in end-to-end fashion with a 9-0 nylon.? Flow was restored and demonstrated adequate perfusion.??Fluorescence angiography was then performed with 3 cc of ICG followed by 10 cc flush and adequate perfusion of the flaps was confirmed. We then performed a nerve coaptation using an accident nerve allograft followed by a nerve connector coapting the previously spared sensory nerve to the third intercostal nerve in end-to-end fashion with a nerve wrap on the left side (there was no adequate donor nerve on the right). The flaps continued to demonstrate adequate perfusion and the skin for the buried portion of the flap on the left was removed full-thickness (given nerve repair) and de-epithelialized on the right. The flaps were tailored in the appropriate fashion in order to facilitate inset.? The flap was inset with a deep layer of 3-0 Monocryl in a deep dermal fashion followed by 3-0 Monocryl in a running subcuticular fashion.? Cutaneous Doppler was marked with a 5-0 Prolene. We then facilitated closure of the abdominal wall.? We infiltrated Exparel with Marcaine in the subfascial plane.? The fasciotomy was reapproximated with 0 PDS in a running fashion and reinforced with 2-0 PDS in a horizontal mattress fashion.? 19 Australian Anjel drains were placed in the abdominal cavity and brought out through 2 separate incisions in the mons and secured to the skin with 2-0 nylon. The supraumbilical diastases was then assessed and repaired with a diastases repair with a running 0 PDS. Hemostasis was achieved electrocautery.? We then reflexed the patient and facilitated closure of the abdomen with a 2-0 Vicryl in Carlyn's fascia followed by INSORB stapler followed by 3-0 Monocryl in a running subcuticular fashion followed by Prineo tape.? The umbilicus was externalized and brought out through a new opening and secured with 4-0 Monocryl in a deep dermal fashion followed by 5-0 Monocryl running subcuticular. The breast incisions were dressed with Xeroform and a bioptic.? The free tissue transfer continued to demonstrate good perfusion.? Ms. Lopez was then extubated and transferred to the ICU for monitoring and stable condition.? Surgical Findings: Thick capsule on both sides, but worse on the right with significant scar. Complications Complications: Yes Complication Details: Right upper pole unplanned incision/button hole during capsulectomy requiring excision of the bovie burn and closure. Admit VTE Documentation VTE Present on Admission: No VTE Mechan Device Prophylaxis: SCD's VTE Pharm Prophylaxis ordered?: Yes
[2024-04-01] MEDS: Heparin Injection (Vial) 5,000 UNIT/ML VIAL 5000 UNIT SC ×2 (10:21→21:38)
[2024-04-01] MEDS: Pantoprazole Sodium 40 MG Tablet PO (10:21)
[2024-04-01] MEDS: Celecoxib 100 MG Capsule PO ×2 (10:24→21:39)
[2024-04-01] MEDS: Ondansetron 4 MG/2 ML Vial IV (13:12)
--- NOTE | 2024-04-01 15:20 | RAD_ITS ---
STUDY: X-RAY CHEST REASON FOR EXAM: Female, 48 years old. Postop, low O2 sat on room air -- portable TECHNIQUE: Single AP portable view of the chest. COMPARISON: Comparison is made with prior study dated April 29, 2022. FINDINGS: Drainage catheters are seen overlying both lower hemithoraces most likely secondary to recent breast surgery. Blunting of the left costophrenic angle with left basilar atelectasis. Normal size heart. Normal mediastinum and bhanu. Normal visualized pulmonary arteries. Normal visualized aortic arch and descending thoracic aorta. Normal visualized thoracic spine. Normal visualized ribs, clavicles, and shoulders. There is no demonstrated abnormality of the visualized soft tissue structures of the upper abdomen. RAD/Chest 1 View (Portable) IMPRESSION: There is blunting of the left costophrenic angle with left basilar atelectasis. Electronically Signed: Stanley Sharp MD at 15:56 EST ,
--- NOTE | 2024-04-01 15:21 | NURSING ---
Addendum entered by Di Deng 04/01/24 18:33: Post op checks 04/01/24 1600: B/L breast flaps <3sec capillary refill, warm and pink in color. Pulses located with doppler 1700: B/L breast flaps <3sec capillary refill, warm and pink in color. Pulses located with doppler 1800: B/L breast flaps <3sec capillary refill, warm and pink in color. Pulses located with doppler 0800: Vioptix monitor readings: Right 68%, Left 41%. Monitor D/C'd by Dr. Allen at 0815. Original Note: Post op checks: 04/01/24 0800: B/L breast flaps <3sec capillary refill, warm and pink in color. Pulses located with doppler. 0900: B/L breast flaps <3sec capillary refill, warm and pink in color. Pulses located with doppler 1000: B/L breast flaps <3sec capillary refill, warm and pink in color. Pulses located with doppler 1100: B/L breast flaps <3sec capillary refill, warm and pink in color. Pulses located with doppler 1200: B/L breast flaps <3sec capillary refill, warm and pink in color. Pulses located with doppler 1300: B/L breast flaps <3sec capillary refill, warm and pink in color. Pulses located with doppler 1400: B/L breast flaps <3sec capillary refill, warm and pink in color. Pulses located with doppler 1500: B/L breast flaps <3sec capillary refill, warm and pink in color. Pulses located with doppler
--- NOTE | 2024-04-01 15:24 | RAD_ITS ---
STUDY: X-RAY - ABDOMEN/PELVIS REASON FOR EXAM: Female, 48 years old. Abdominal bloating after surgery -- portable TECHNIQUE: Single AP view of the abdomen / pelvis. COMPARISON: None. FINDINGS: Drainage catheters are seen overlying both lower hemithoraces. Surgical clips are seen overlying the lower hemithoraces suggestive of possible breast surgery. Post surgical drainage catheters are seen overlying the pelvis bilaterally with multiple metallic clips. The gas pattern is unremarkable. RAD/Abdomen Single View (Portable) IMPRESSION: Postoperative changes. The gas pattern is unremarkable. Electronically Signed: Stanley Sharp MD at 15:55 EST ,
[2024-04-01] MEDS: Magnesium Hydroxide 30 ML UDC PO (18:19)
[2024-04-02] VITALS: BP 114/65; PULSE 75; RESP 14; TEMP 37.2; O2SAT 95
[2024-04-02] MEDS: Clindamycin 600 MG/50 ML BAG 100 MG IV ×3 (00:01→12:08)
[2024-04-02 04:00] VITALS: BP 109/65; PULSE 79; RESP 17; TEMP 37.4; O2SAT 96
[2024-04-02] MEDS: Acetaminophen 325 MG Tablet 650 MG PO (04:08)
[2024-04-02 05:35] VITALS: BMI 31.1
--- NOTE | 2024-04-02 06:00 | NURSING ---
04/01/24 post op checks 2000: B/L breast flaps <3sec capillary refill, warm and pink in color. Pulses located with doppler. 2200: B/L breast flaps <3sec capillary refill, warm and pink in color. Pulses located with doppler 04/02/24 post op checks 0000: B/L breast flaps <3sec capillary refill, warm and pink in color. Pulses located with doppler 0200: B/L breast flaps <3sec capillary refill, warm and pink in color. Pulses located with doppler 0400: B/L breast flaps <3sec capillary refill, warm and pink in color. Pulses located with doppler. 0600: B/L breast flaps <3sec capillary refill, warm and pink in color. Pulses located with doppler
[2024-04-02] MEDS: Gabapentin 100 MG Capsule PO ×3 (06:06→20:55)
--- NOTE | 2024-04-02 06:09 | PN.SURG_ITS ---
Subjective Subjective POD 2 from BL MAKENNA. Doing well. Walking to bathroom, voiding O.K. No SOB. Working on IS. Objective Data Objective Data Vital Signs: Vital Signs Temp Pulse Resp BP Pulse Ox O2 Del Method O2 Flow Rate 99.4 F H 79 17 109/65 96 Nasal Cannula 2 04/02/24 04:00 04/02/24 04:00 04/02/24 04:00 04/02/24 04:00 04/02/24 04:00 04/02/24 04:00 04/02/24 04:00 Oxygen Flow Rate (L/min) 2 Oxygen Delivery Method Nasal Cannula Weight: 187 lb 2.759 oz Body Mass Index (BMI) 31.1 Intake & Output: Intake and Output for Last 24 Hours 03/31/24 04/01/24 04/02/24 23:59 23:59 23:59 Intake Total 783.33 / 783.33 1302.00 / 1302.00 50 / 50 Output Total 1530 / 2780 2986 / 2995 35 / 35 Balance -746.67 / -1996.67 -1684.00 / -1693.00 Lab / Micro Data 04/01/24 04:20 04/01/24 04:20 Radiography Diagnostic Testing: Radiology Impression Chest X-Ray 04/01/24 15:20 IMPRESSION: There is blunting of the left costophrenic angle with left basilar atelectasis. Electronically Signed: Stanley Sharp MD at 15:56 EST , KUB X-Ray 04/01/24 15:24 IMPRESSION: Postoperative changes. The gas pattern is unremarkable. 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 No signs of bleeding/hematoma. Drains appropriate. Skin paddles with good capillary refill. No signs of congestion. Triphasic signal on skin paddles bilaterally. Good venous signals as well bilaterally. Drains functioning and have appropriate output. Const alert and oriented x3 Resp normal respiratory effort Resp Narrative: 1200 on IS this morning Cardio Rate: regular rate GI GI Narrative: Abdomen flat, healthy appearing. Incisions c/d/i. Drains appropriate and strip well, no clot. Soft. Umbilicus with some dark discoloration. Narrative: White is out Extremity Extremity Narrative: SCDs on and activated No lower extremity swelling. Assessment & Plan Assessment/Plan (1) History of reconstruction of both breasts: PLAN: Neuro: Pain controlled, oral pain meds (DC IV pain medication) Cardiovascular: No concerns at this time Resp: Incentive Spirometer consistently (discussed) Abdomen: Miralax for constipation. SSD twice daily to umbilicus. FEN: Regular diet. Electrolytes stable on POD 1 labs. No further labs unless indication Hem: Hgb 11.2 pod 1 (11.5 preop). SCDs and Hep 5K TID for DVT prophylaxis Plan to walk with PT assistance today OK to transfer to the floor for Q4 hour flap checks No pressure on flaps Charges/Coding Procedures Integumentary [id number]: [id number] Global Visit
[2024-04-02] MEDS: oxyCODONE 5 MG Tablet PO (08:38)
[2024-04-02 09:55] VITALS: O2SAT 83
[2024-04-02 10:00] VITALS: BP 108/60; PULSE 81; RESP 18; TEMP 37.2; O2SAT 94
[2024-04-02] MEDS: Heparin Injection (Vial) 5,000 UNIT/ML VIAL 5000 UNIT SC ×2 (10:23→20:56)
[2024-04-02] MEDS: Pantoprazole Sodium 40 MG Tablet PO (10:23)
[2024-04-02] MEDS: Celecoxib 100 MG Capsule PO ×2 (10:23→20:55)
[2024-04-02] MEDS: Silver Sulfadiazine 1% Crm 50 gm Bottle 1 APPLIC TOPICAL ×2 (10:23→20:56)
[2024-04-02 16:00] VITALS: BP 127/64; PULSE 89; RESP 16; TEMP 37.3; O2SAT 94
[2024-04-02] MEDS: Magnesium Hydroxide 30 ML UDC PO ×2 (17:08→20:55)
--- NOTE | 2024-04-02 18:56 | NURSING ---
04/02/24 post op checks 0800: B/L breast flaps <3sec capillary refill, warm and pink in color. Pulses located with doppler 1200: B/L breast flaps <3sec capillary refill, warm and pink in color. Pulses located with doppler 1600: B/L breast flaps <3sec capillary refill, warm and pink in color. Pulses located with doppler.
[2024-04-02] MEDS: 0.9% Saline Lock 10 ML Syringe IV (20:55)
[2024-04-02 21:00] VITALS: BP 125/59; PULSE 93; RESP 18; TEMP 37.4; O2SAT 95
[2024-04-03 02:45] VITALS: BP 92/76; PULSE 84; RESP 16; TEMP 37.2; O2SAT 94
[2024-04-03 04:10] VITALS: BP 131/61; PULSE 78; RESP 16; TEMP 36.8; O2SAT 94
[2024-04-03 04:13] VITALS: BMI 30.7
[2024-04-03] MEDS: Gabapentin 100 MG Capsule PO (04:55)
[2024-04-03 05:54] VITALS: O2SAT 93
--- NOTE | 2024-04-03 06:31 | NURSING ---
04/02/24-04/03/24 post op checks 2000: B/L breast flaps <3 sec capillary refill, warm and pink in color. Pulses located with doppler 0000: B/L breast flaps <3 sec capillary refill, warm and pink in color. Pulses located with doppler 0400: B/L breast flaps <3 sec capillary refill, warm and pink in color. Pulses located with doppler.
[2024-04-03 08:32] VITALS: O2SAT 90
[2024-04-03 10:10] VITALS: BP 126/73; PULSE 80; RESP 18; TEMP 37.1; O2SAT 95
[2024-04-03] MEDS: Celecoxib 100 MG Capsule PO (10:13)
[2024-04-03] MEDS: Pantoprazole Sodium 40 MG Tablet PO (10:13)
[2024-04-03] MEDS: Silver Sulfadiazine 1% Crm 50 gm Bottle 1 APPLIC TOPICAL (10:14)
[2024-04-03] MEDS: Heparin Injection (Vial) 5,000 UNIT/ML VIAL 5000 UNIT SC (10:23)
--- NOTE | 2024-04-03 10:32 | DS.PCM_ITS ---
Providers Date of Admission: 03/31/24 Primary Care Physician: Dr. Amanda Hyatt MD Reason For Visit: Breast Implant removal and capsulectomy bilateral, Diagnosis Discharge Diagnosis (1) History of reconstruction of both breasts: Status: Acute Code(s): Z98.890 - Other specified postprocedural states Plan: Neuro: Pain controlled, oral pain meds (DC IV pain medication) Cardiovascular: No concerns at this time Resp: Incentive Spirometer consistently (discussed) Abdomen: Miralax for constipation. SSD twice daily to umbilicus. FEN: Regular diet. Electrolytes stable on POD 1 labs. No further labs unless indication Hem: Hgb 11.2 pod 1 (11.5 preop). SCDs and Hep 5K TID for DVT prophylaxis Plan to walk with PT assistance today OK to transfer to the floor for Q4 hour flap checks No pressure on flaps Medications at Discharge Home Medications ibuprofen 800 mg tablet 800 mg PO Q12H PRN PRN Migraine Headache 03/28/22 omeprazole 40 mg capsule,delayed release 40 mg PO DAILY gerd 03/28/22 sumatriptan succinate 100 mg tablet 100 mg PO PRN PRN MIGRAINE 03/28/22 valacyclovir 500 mg tablet 500 mg PO DAILY PRN cold sores 03/28/22 celecoxib 100 mg capsule (Celebrex) 100 mg PO BID 5 days #10 caps 04/03/24 clindamycin HCl 300 mg capsule 300 mg PO Q8H 7 days #21 caps 04/03/24 gabapentin 100 mg capsule (Neurontin) 100 mg PO TID 5 days #15 caps 04/03/24 ondansetron 4 mg disintegrating tablet 4 mg PO Q8H PRN nausea and vomiting #10 tabs 04/03/24 oxycodone 5 mg tablet 5 mg PO Q8H PRN pain 7 days #20 tabs 04/03/24 silver sulfadiazine 1 % topical cream 1 applic topical BID #50 grams 04/03/24 Hospital Course Summary of Care Provided Hospital Course: Irene Lopez is a 48-year-old female who underwent bilateral implant removal/capsulectomy with bilateral breast reconstruction using Deep Inferior Epigastric Security Officer (MAKENNA) flaps on 31 Mar 2024. She went to the ICU for 2 nights for flap monitoring (q1 hour checks). Her VS were stable and she had viable flaps (no concerns for ischemia). Her Hgb was stable (11.2 from 11.5) on post-op day 1. Her White was removed and she was able to void without issues. On POD 2 she was able to have two bowel movements. She continued to have a re- assuring flap examination and was transferred to floor status for q4 hour checks. On the date of discharge, POD3, patient's pain is controlled on non-narcotic PO medications (Tylenol, Neurontin, Celebrex). She is doing 1300 on IS and saturating consistently between 95 and 96% on room air. No SOB or lower extremity swelling. She was fitted for a binder at bedside today that does not put pressure on the flaps but keeps her belly supported. She reports some tingling sensation/numbness in the median nerve distribution of her left hand (not over the thenar eminence, but just on the finger tips of the thumb, index and long fingers). She reports that she noticed it involving the radial border of the ring yesterday, but this has since gone away. No other problems with hand function or sensation, or LUE sensation or movement. I talked to the patient about plan to monitor her symptoms of carpal tunnel syndrome (post op) and she was happy with that plan. She reports that she thinks it's getting better. Patient endorsed an understanding of drain care and concerning signs/symptoms of flap ischemia/congestion as well as signs/symptoms of infection. On the morning of discharge, I walked with her and the nursing staff around the entire castelan and she had no problems. She has several family members at home to assist her. I reiterated to her the need to keep pressure off of her chest/the flaps. 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 No signs of bleeding/hematoma. Drains appropriate. Skin paddles with good capillary refill. No signs of congestion. Triphasic signal on skin paddles bilaterally. Good venous signals as well bilaterally. Drains functioning and have appropriate output. Const alert and oriented x3 HEENT normocephalic Eyes EOMs intact bilaterally Neck full ROM Resp normal respiratory effort Resp Narrative: Able to do 1300 on IS this morning consistently. Cardio regular rate GI GI Narrative: Abdomen is soft, no signs of fluid collection. Umbilicus with slight dark/dusky discoloration. SSD applied Extremity full ROM and no calf tenderness Extremity Narrative: No lower extremity swelling. No signs of fluid overload. Left Upper Extremity Inspection:No signs of injury Palpation: No tenderness. Motor: Able to bend and extend all MP, PIP, and DIP joints. Able to bend/extend wrist and elbow. Thenar eminence fires with opposition between thumb and small finger. 5+ APB Sensory: Intact to light touch on the radial and ulnar borders, except endorses some numbness/tingling along distal fingers/tips of the thumb, index and long fingers. Vascular: Finger tips are warm and well perfused with <2 second capillary refill. Weight / BMI Weight Weight: 184 lb 8.43 oz Body Mass Index (BMI) 30.7 ABG / Lab / Microbiology Data 04/01/24 04:20 04/01/24 04:20 D/C Instructions DC O2, CPAP, BIPAP Needs Home O2 Discharge instructions: No Meaningful Use Info Meaningful Use Meaningful Use Diagnoses (Choose all that apply): None applicable Ischemic Stroke Statin Dosing Therapy Reference: STATIN DOSE THERAPY REFERENCE: * Patients > 75 years receive moderate or high dose statin therapy. * Patients 75 years or YOUNGER should receive HIGH intensity statin dose unless contraindicated. You will be required to document reason for non-treatment if statin daily dose does not meet guidelines. HIGH DOSE STATIN THERAPY DAILY Atorvastatin > than or = to 40 mg Rosuvastatin > than or = to 20 mg Amlodipine + Atorvastatin > than or = to 2.5/40 mg Ezetimibe + Simvastatin 10/80 mg Simvastatin 80mg Discharge Plan Admission Admit Date/Time: 03/31/24 20:00 Attending Provider: Marlon Allen Primary Care Provider: Amanda Hyatt Instructions Additional Instructions / Restrictions: Department of Plastic Surgery Dear John Thank you for choosing our team to perform your Microsurgical Breast Reconstruction. We are here to help with your recovery throughout your hospital stay and following discharge. We kindly ask you (your partner, family and / or friends) to read through these post-discharge instructions during your hospital stay.? We would like to ensure that all questions and concerns that you may have about your surgery are addressed. Your Plastic Surgery Team Contact your Surgeon if: * Watch for signs of infection:? redness extending beyond the incision, increased pain or tenderness, foul smelling odor, purulent drainage, swelling, and/or fever >101?F (38.3?C). Note that a low-grade temperature (less than 101?F) is normal after surgery.? You may take Tylenol alone for fever.? Continue deep breathing exercises and walking frequently.? Contact the office for a consistent temperature above 101?F. * Observe surgical areas for signs of excessive bleeding:? slow oozing that saturates the dressing or sudden increase in size of reconstructed breast or abdomen. * Observe color of breast skin island (area on reconstructed breast which plastic surgery team checks in the hospital) for problems with blood flow to flap:? Increasing purple discoloration or change to pale white may signal a problem. * If you notice any of these signs or other concerning symptoms after discharge, please notify the office immediately. Contact Dr. Allen's office or [facility] immediately * If you experience difficulty breathing and/or shortness of breath, seek immediate medical attention. Pain Management/Medications: * Narcotic Pain medication may be taken as instructed. * Do not drive or operate heavy machinery while taking narcotic pain medications (Percocet, Vicodin, Oxycodone, Hydrocodone). * Note that all narcotic pain medication increase problems with constipation.? Stool softeners and mild laxatives may be helpful. * If you no longer choose to take narcotic pain medications, you may take a non- prescription medication such as acetaminophen (Tylenol) or ibuprofen (Motrin). Do not take acetaminophen together with narcotic pain medications (i.e. Percocet or Vicodin). Do not take Motrin/Advil if you have a history of ulcer or stomach problems). * If you are no longer taking narcotic pain medications, you may operate a vehicle if you feel comfortable maneuvering the vehicle.?? * If prescribed oral antibiotics (Keflex, Clindamycin, or others), please take prescription for full duration as instructed. You should not have any pills remaining once completed. * Some women experience problems with vaginal discomfort while taking antibiotics.? If you are prone to recurrent ?yeast infections? you may use over- the- counter creams or take a prescription medication by mouth.? Please let us know prior to discharge if you may need this. * If you were previously taking Tamoxifen, or any anti-estrogen therapy prior to surgery, you may resume these medications 2 weeks following surgery. If you take Aspirin, you may resume this medication in the hospital. If you take Plavix (clopidogrel) or other anticoagulants (e.g. warfarin) please contact your surgeon prior to resuming. * Please consult your surgeon prior to resuming medication for migraine or cluster headaches. Wound Care: Breast Area * Wearing a brassiere:? Wear a loose t-shirt/garment for now. No pressure on the flaps * You may shower 48 hours after your surgery. You may get the surgical site and drain site wet in the shower by allowing soapy water to run over the incisions; pat the areas dry.? Before your shower, the yellow gauze over your incision, if present, should be removed and discarded. Yellow gauze does not need to be re-applied.? Incisions may be covered with the SSD cream as with your umbilicus * Do not tub bathe. * You may place gauze pads around drain site. * Your surgeon may instruct you to apply silver-sulfadiazine cream to one or more portions of surgical site. This should be done twice daily. Residual cream should be removed prior to new application. * It is normal to experience a small amount of clear, fernandez colored drainage on the gauze pads. Abdomen/Umbilicus * Abdominal dressing are usually first removed 48 hours after surgery * There is tape over the incision that can get wet and will fall ff on its own * Your surgeon may instruct you to apply silver-sulfadiazine cream to one or more portions of surgical site. This should be done twice daily. Residual cream should be removed prior to new application. * Wear loose fitting clothing. * Binder:? You may be placed in a postoperative binder.? The binder should be worn at all times for the first 4-6 weeks following surgery unless otherwise instructed by your surgeon.? It is important that the binder be worn low on the abdomen to prevent compression of the bottom of the breast flap(s). * Do not apply a heating pad to any surgical site.? You may have decreased sensation and could easily get a burn without realizing it. Drain Care: * You may be discharged home with two or more drains.? The nursing staff will instruct you and your family on the care and recording of drainage.?? * You may shower with them.?? * You should empty the drainage and record the output one to two times a day, or when the drainage exceeds ? of the bulb while under suction.? Please keep daily amounts of drainage separate for each drain for a 24-hour period (for example drain #1 put out 40 cc for 24 hours). * Drains will be removed when total is <30 cc per day over two consecutive days. Please refer to the drain care instruction sheet provided upon discharge for additional instructions. * In the event of accidental drain removal, place a piece of dry gauze over the drain site and contact your surgeon. * If your drain bulb loses suction or your drain has migrated out from the drain site, do not attempt to push the drain back into your skin. Cover the area with dry gauze. You may be asked by your surgeon to place a piece of semi occlusive dressing (tegaderm) over the drain site to keep the site clean and drain in place until you are seen in the office. * You may drive with drains in place if you are no longer taking narcotic pain medications and are able to maneuver a vehicle comfortably. Diet: * You may resume your normal diet while in the hospital unless otherwise instructed by your surgeon. Carbonated beverages often cause bloating.? If you are experiencing these types of problems, try juices or other non-carbonated beverages until symptoms subside. Travel: * It is advisable to make frequent stops for walking (every hour) for those patient who require an extended car trip home and for postoperative appointments. * Please discuss air travel restrictions with your surgeon. Activity Restrictions/Exercise: * No restrictions on walking.? It is encouraged. * Avoid heavy lifting >5 lb, bending, pushing, pulling, or straining until otherwise directed by your surgeon. This is very important when you are first learning to get out of bed without using your abdominal muscles.? It is easier to position the bed in an upright position then use your legs to roll over on your side and push up on the ?non-reconstructed? side or have someone help push from behind. * Please refer to the exercise instructions you received with your pre-operative packet regarding exercises you should begin after hospital discharge. * Do not perform exercises that require you to raise your arms above shoulder level until instructed by your surgeon. * No sleeping on your abdomen for 6 weeks.? You may turn on your side as long as there is no pressure on the breast or under arm. Smoking * Avoid all nicotine including secondary smoke and smokeless tobacco for 6 weeks. Follow-Up: * If a follow up appointment has not been scheduled for you, or you need to change your scheduled appointment, please call our office * You should be seen within 5-10 days after surgery.? For drain removal appointment, please call your doctors office directly to schedule. * Post Op Appointment:, 07 Apr 2024, with Dr. Allen in clinic If you have any questions or concerns, please call the office of Dr. Allen.? If after hours, please call [facility] and ask for plastics section gang. In the event of an emergency, or if you an unable to reach the office/on-call plastics, you should go to the nearest emergency room. Discharge Orders/Prescriptions Prescriptions: New oxycodone 5 mg tablet 5 mg PO Q8H PRN (Reason: pain) 7 Days Qty: 20 0RF ondansetron 4 mg tablet,disintegrating 4 mg PO Q8H PRN (Reason: nausea and vomiting) Qty: 10 0RF clindamycin HCl 300 mg capsule 300 mg PO Q8H 7 Days Qty: 21 0RF silver sulfadiazine 1 % cream 1 applic topical BID Qty: 50 0RF Rx Instructions: apply a 1.5 mm thickness to the umbilicus and to the breast incisions twice daily gabapentin [Neurontin] 100 mg capsule 100 mg PO TID 5 Days Qty: 15 0RF celecoxib [Celebrex] 100 mg capsule 100 mg PO BID 5 Days Qty: 10 0RF Continued sumatriptan succinate 100 mg tablet 100 mg PO PRN PRN (Reason: MIGRAINE) Patient Comments: TAKE 1 TABLET FOR MIGRAINE RELIEF. MAY REPEAT 2 HOURS LATER. MAXIMUM 200MG/DAY. valacyclovir 500 mg tablet 500 mg PO DAILY PRN (Reason: cold sores) Patient Comments: TAKE 1 TABLET BY MOUTH EVERY DAY omeprazole 40 mg capsule,delayed release(DR/EC) 40 mg PO DAILY Patient Comments: TAKE 1 CAPSULE BY MOUTH EVERY DAY Held ibuprofen 800 mg tablet 800 mg PO Q12H PRN PRN (Reason: Migraine Headache) Hold Instructions: Resume on 04/11/24. Patient Comments: TAKE 1 TABLET BY MOUTH THREE TIMES A DAY NEEDED Other Ambulatory Orders: 12 Lead EKG (Routine) Timeframe: [id number] Facility: [facility] - Location: Cardiovascular Services Ordered By: Dr. Manuel Fuller Referrals / Follow Up: Amanda Hyatt MD [Primary Care Provider] - Disposition Disposition (needs filled in before D/C Order can be placed): Home, Self Care Charges/Coding Procedures Integumentary [id number]: [id number] Global Visit
== END 2024-04-03 13:00 | disposition home or self-care (01) | DRG 584 ==
LOC: ICU 04-01 09:43
PROVIDERS: Anesthesiology; Admitting Provider Surgery Plastic and Reconstructive Surgery; PCP Family Medicine; Referring Provider Surgery Plastic and Reconstructive Surgery; Visit Provider Surgery Plastic and Reconstructive Surgery
PROC: 0HRV077 Replacement of Bilateral Breast using Deep Inferior Epigastric Artery Perforator Flap, Open Approach (ICD-10-PCS; CPT 19364; principal; 2024-03-31 07:15)
DX: T85.44XA Capsular contracture of breast implant, initial encounter (principal); L76.12 Accidental puncture and laceration of skin and subcutaneous tissue during other procedure; K21.9 Gastro-esophageal reflux disease without esophagitis; T85.848A Pain due to other internal prosthetic devices, implants and grafts, initial encounter; N65.0 Deformity of reconstructed breast; Y65.8 Other specified misadventures during surgical and medical care; Y92.234 Operating room of hospital as the place of occurrence of the external cause; Z15.01 Genetic susceptibility to malignant neoplasm of breast; Z90.710 Acquired absence of both cervix and uterus; Z90.13 Acquired absence of bilateral breasts and nipples; Z87.891 Personal history of nicotine dependence
CPT/HCPCS: 71045; 74018; 80048; 82962; 83735; 85025; 86850; 86900; 86901; 88305; 93005; 94668; 97116; 97162; 97166; 97530; 97535; A4648; A4216; J0666; J2405; J3475

== ENCOUNTER 2024-06-06 08:45 | Outpatient (RCR) | payer BC, SELFPAY ==
[2024-05-16 10:22] VITALS: BP 159/75; PULSE 78; RESP 18; TEMP 36.2; BMI 28.6
--- NOTE | 2024-05-16 13:20 | HP.PCM_ITS ---
History of Present Illness Date of Service: 05/16/24 History of Wound: Patient underwent MAKENNA flaps for bilateral breast reconstruction on 31 Mar 2024. There is an upper pole right breast wound that contained some fat necrosis from thin mastectomy flap dissection during capsulectomy/preparation for the flaps. There is healthy granulation tissue over the flap at the base of the wound. Also has had some small wounds on the medial aspect of her donor site, all of which are being treated with mepilex Ag. CURRENT ENCOUTNER, 16 May 2024: Less drainage today. No fevers chills. Doing well with wound care. 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 Headache Instructions: Resume on 04/11/24. omeprazole 40 mg capsule,delayed 40 mg PO DAILY gerd 0 03/28/22 03/31/24 04:00 History release sumatriptan succinate 100 mg tablet 100 mg PO PRN PRN MIGRAINE 03/28/22 Unknown History valacyclovir 500 mg tablet 500 mg PO DAILY PRN cold so res 03/28/22 03/30/24 06:30 History celecoxib 100 mg capsule (Celebrex) 100 mg PO BID 5 da ys #10 caps 04/03/24 Unknown Rx gabapentin 100 mg capsule 100 mg PO TID 5 days #15 cap s 04/03/24 Unknown Rx (Neurontin) ondansetron 4 mg disintegrating 4 mg PO Q8H PRN nausea and 04/03/24 Unknown Rx tablet vomiting #10 tabs silver sulfadiazine 1 % topical 1 applic topical BID # 50 grams 04/03/24 Unknown Rx cream Allergy/AdvReac Type Severity Reaction Status Date / Time Penicillins (PCN) Allergy Hives, RASH Verified 05/16/24 10:37 Family History Grandmother Breast cancer Aunt Breast cancer Father Diabetes Surgical History Hx of breast reconstruction History of prophylactic mastectomy of both breasts Status post implant removal from both breasts History of reconstruction of both breasts Hx of bilateral mastectomy History of placement of ear tubes History of bilateral breast implants Status post bilateral breast reconstruction Status post bilateral mastectomy History of bilateral oophorectomy History of bladder surgery History of hysterectomy Social History Smoking Status: Former smoker alcohol intake: current substance use type: does not use additional social history: Does Not Take Aspirin Does Take Ibuprofen As Needed Vital Signs Vital Signs Vital Signs: 05/16/24 10:22 Temperature 97.1 F L Temperature Source Temporal Pulse Rate 78 Respiratory Rate 18 Blood Pressure 159/75 H Blood Pressure Mean 103 Blood Pressure Source Monitor Blood Pressure Position Sitting Blood Pressure Location Right Arm Oxygen Delivery Method Room Air Weight Weight: 172 lb Body Mass Index (BMI) 28.6 Physical Exam Narrative Right breast wound healing well, granulating. No drainage. Central abdomen with some spitting suture (N sorb) which were removed and the wound cleaned with curette (1 x 0.5 cm). The umbilicus is granulating and healing well. Debridement Note Debridement Note Wound debrided: Central abdomen from donor site Wound Grade/Stage: 3 Type of Debridement: Excisional debridement Anesthesia Used: 4% Lidocaine Solution Depth: in the subcutaneous layer Percentage of wound debrided: 100 Instrument Used: 3mm curette Severity: Fat Layer Exposed Amount of bleeding with debridement: Mild Bleeding Controlled with: Compression and gauze Patient tolerated procedure: Patient tolerated procedure well Post-Debridement Measurements and Additional Note: Post-Debridement Measurements/Treatment WC - Nurse 1 - General Ulcer Assessment Start: 05/16/24 10:22 Freq: Status: Active Protocol: HERNANDEZ Activity Type Activity Date Activity User E-sign Co-sign Detail Recorded Client Recorded Date Recorded By Document 05/16/24 10:22 [facility] [id number] 05/16/24 10:35 [facility] 05/16/24 10:22 - Today's Visit Information Type of service Initial Visit Arrival Mode Ambulatory Transfer Assistance None Patient Identification Verified (Name & Yes ) Patient Requires Transmission-Based No Precautions Height and Weight Height 5 ft 5 in Weight 172 lb Weight in Pounds 172.0 lbs Weight Measurement Method Stated by Patient Body Mass Index (BMI) 28.6 BMI Classification Overweight Vital Signs Temperature (97.8 F-99.1 F) 97.1 F L Temperature Source Temporal Pulse Rate (60-100) 78 Pulse Location Monitor Respiratory Rate (12-18) 18 Respiratory rate source Observation Oxygen Delivery Method Room Air Blood Pressure (90/60-120/80) 159/75 H Blood Pressure Mean 103 Source Monitor Position Sitting Blood Pressure Location Right Arm History Since Last Visit- (Skip if this is Patient's initial visit) Left Footwear Regular Shoe Right Footwear Regular Shoe Pain Scale: 0-10 Numeric Is Patient Pain Free? Yes Teaching Assessment Preferences Verbal,Written, Audio/Visual, Demonstration Barriers to Learning None Readiness To Learn Excellent Willingness to Engage in Self Management High Activies Readiness to Engage in Self Management High Activities Anxiety Level Calm Cooperation Cooperative Perception Coherent Interest in Health Problem Asks Questions Education Importance Acknowledges Need Does Patient Smoke tobacco or other No substances Smoking Status Former smoker Is Patient Diabetic No Functional Assessment Recent Decline in Ability to Perform Denies Any Declines Culture/Baptism/Armhole Baster Hand Cultural/Baptism Needs that may affect No Treatment Plan Teaching: Wound Center *Welcome to the Wound Center -Person Taught Patient -Teaching Method Discussion -Response to teaching Verbalize Understanding - Nurse 1 - General Ulcer Measurement Start: 05/16/24 10:22 Freq: Status: Active Protocol: Activity Type Activity Date Activity User E-sign Co-sign Detail Recorded Client Recorded Date Recorded By Document 05/16/24 10:22 [facility] [id number] 05/16/24 10:35 [facility] 05/16/24 10:22 Wound Center Nurse 1 #5 Abd Cluster -Current Size (cm) - Length 0.9 -Current Size (cm) - Width 14.3 -Current Size (cm) - Depth 0.2 -Total Square Cm 12.87 -Date of Last Picture (Recall this 05/16/24 field) -Photo Taken Yes -Tunneling No -Undermining/Tunneling No -Circular Undermining No -Exudate Amt Medium -Exudate Type Serosanguineous -Wound Margin Distinct, Outline Attached -Granulation Amt None Present (0 %) -Necrosis Amt Large (67-100%) -Necrotic Tissue Type Adherent Slough -Structure Exposed N/A -Texture (Clare-wound Skin Appearance) Scarring -Moisture (Clare-wound Skin Appearance) No Abnormality -Color (Clare-wound Skin Appearance) No Abnormality -Temperature (Clare-wound Skin No Abnormality Appearance) (Pt Warm) -Ulcer Cleansing Soap and Water -Foul Odor after Cleansing No -Anesthetic Used 5% Lidocaine Gel #4 Umbilicus -Combined with other wound No -Current Size (cm) - Length 0.1 -Current Size (cm) - Width 0.6 -Current Size (cm) - Depth 0.1 -Total Square Cm 0.06 -Date of Last Picture (Recall this 05/16/24 field) -Photo Taken Yes -Tunneling No -Undermining/Tunneling No -Circular Undermining No -Exudate Amt Small -Exudate Type Serosanguineous -Wound Margin Distinct, Outline Attached -Granulation Amt Large (67-100%) -Granulation Quality [place] -Necrosis Amt Small (1-33%) -Necrotic Tissue Type Adherent Slough -Structure Exposed N/A -Texture (Clare-wound Skin Appearance) Scarring -Moisture (Clare-wound Skin Appearance) No Abnormality -Color (Clare-wound Skin Appearance) No Abnormality -Temperature (Clare-wound Skin No Abnormality Appearance) (Pt Warm) -Tenderness on Palpation (Clare-wound No Skin Appearance) -Ulcer Cleansing Soap and Water -Foul Odor after Cleansing No -Anesthetic Used 5% Lidocaine Gel #3 R Breast -Combined with other wound No -Current Size (cm) - Length 0.5 -Current Size (cm) - Width 1.4 -Current Size (cm) - Depth 1.9 -Total Square Cm 0.70 -Photo Taken Yes -Tunneling Yes -Tunneling Position (O'clock) 3 -Tunneling Distance (cm) 4.7 -Undermining/Tunneling No -Circular Undermining No -Exudate Amt Medium -Exudate Type Serosanguineous -Wound Margin Distinct, Outline Attached -Granulation Amt Large (67-100%) -Granulation Quality Red -Necrosis Amt None Present (0 %) -Structure Exposed N/A -Texture (Clare-wound Skin Appearance) No Abnormality, Scarring -Moisture (Clare-wound Skin Appearance) No Abnormality -Color (Clare-wound Skin Appearance) No Abnormality -Temperature (Clare-wound Skin No Abnormality Appearance) (Pt Warm) -Ulcer Cleansing Soap and Water -Foul Odor after Cleansing No -Anesthetic Used 5% Lidocaine Gel WC - Nurse 2 - General Ulcer CM Notes Start: 05/16/24 10:22 Freq: Status: Active Protocol: Activity Type Activity Date Activity User E-sign Co-sign Detail Recorded Client Recorded Date Recorded By Document 05/16/24 11:02 DS [id number] 05/16/24 11:12 DS 05/16/24 11:02 Wound Center Nurse 2 #5 Abd Cluster -Time 11:00 -Correct Patient Yes -Correct Side, Site, Position Yes -Correct Procedure Yes -Procedure Performed Yes -Type of Procedure Debridement -Clinical Debridement Subcutaneous -Tissue Removed Subcutaneous -Post Debridement (cm) - Length 0.9 -Post Debridement (cm) - Width 14 -Post Debridement (cm) - Depth 0.7 -Total Square (Post) (cm) 12.6 -Area of Debridement (cm) - Length 0.9 -Area of Debridement (cm) - Width 14 -Total Square (Area) (cm) 12.6 -Tunneling No -Undermining/Tunneling No -Circular Undermining No -Wound/Ulcer Outcome Not Healed -Ulcer Cleansing Rinsed/ Irrigated with Saline -Foul Odor after Cleansing No -Bioengineered Tissue No -Bleeding Controlled with Pressure -Treatment Response Procedure Tolerated Well -Debridement - Subq, 1st 20sq cm Yes #4 Umbilicus -Time 11:00 -Correct Patient Yes -Procedure Performed No #3 R Breast -Time 11:00 -Correct Patient Yes -Procedure Performed No -Post Debridement (cm) - Length 1.0 -Post Debridement (cm) - Width 0.5 -Post Debridement (cm) - Depth 1.0 -Total Square (Post) (cm) 0.50 -Area of Debridement (cm) - Length 1.0 -Area of Debridement (cm) - Width 0.5 -Total Square (Area) (cm) 0.50 -Tunneling No -Undermining/Tunneling No -Circular Undermining No -Wound/Ulcer Outcome Not Healed Pain Scale: 0-10 Numeric Is Patient Pain Free? Yes WC - Nurse 3 - General Ulcer D/C NN Start: 05/16/24 10:22 Freq: Status: Active Protocol: Activity Type Activity Date Activity User E-sign Co-sign Detail Recorded Client Recorded Date Recorded By Document 05/16/24 11:20 [facility] [id number] 05/16/24 11:22 [facility] 05/16/24 11:20 Wound Care Center Nurse 3 #5 Abd Cluster -Ulcer Cleansing Rinsed/ Irrigated with Saline -Foul Odor after Cleansing No -Primary Dressing Applied Aquacel AG 4x4 -Other Dressing abd -Primary Dressing Covered/Secured with Secured with Tape -Aquacel AG 4x4 1 #4 Umbilicus -Ulcer Cleansing Rinsed/ Irrigated with Saline -Foul Odor after Cleansing No -Primary Dressing Applied Aquacel AG 4x4 -Other Dressing abd -Primary Dressing Covered/Secured with Secured with Tape -Aquacel AG 4x4 0 #3 R Breast -Ulcer Cleansing Rinsed/ Irrigated with Saline -Foul Odor after Cleansing No -Primary Dressing Applied Aquacel AG 4x4 -Primary Dressing Covered/Secured with Dry Gauze, Secured with Tape -Aquacel AG 4x4 0 Pain Scale: 0-10 Numeric Is Patient Pain Free? Yes WC - Visit Discharge Discharge Condition Stable Ambulatory Status Ambulatory Transportation Private Auto Charges/Coding Procedures Integumentary 111xxx-113xx: 04530 Global Visit Assessment/Plan Assessment/Plan (1) History of reconstruction of both breasts: CODE(S): Z98.890 - Other specified postprocedural states PLAN: Central abdomen with with some break down centrally. Debrided and cleaned today. Umbilicus and right breast healing well. Continue Aquacel Ag dressings twice daily. F/u in 1 week
--- NOTE | 2024-05-18 14:22 | WC ---
PHOTO 05/16/24 ABD CLUSTER
--- NOTE | 2024-05-18 14:23 | WC ---
PHOTO 05/16/24 RIGHT BREAST
--- NOTE | 2024-05-23 08:46 | PCM.WC.PN ---
History of Present Illness Date of Service: 05/23/24 Chief Complaint: Compromised bilateral nipple skin grafts after mastectomy with immediate reconstruction and placement of free nipple graft. History of Wound: Patient underwent MAKENNA flaps for bilateral breast reconstruction on 31 Mar 2024. There is an upper pole right breast wound that contained some fat necrosis from thin mastectomy flap dissection during capsulectomy/preparation for the flaps. There is healthy granulation tissue over the flap at the base of the wound. Also has had some small wounds on the medial aspect of her donor site, all of which are being treated with Aquacel Ag. 16 May 2024: Less drainage today. No fevers chills. Doing well with wound care. CURRENT ENCOUNTER, 23 May 2024: Doing well overall with dressing changes. Making progress. Objective Data Objective Data Vital Signs: Vital Signs Temp Pulse Resp BP O2 Del Method 97.1 F L 78 18 159/75 H Room Air 05/16/24 10:22 05/16/24 10:22 05/16/24 10:22 05/16/24 10:22 05/16/24 10:22 Oxygen Delivery Method Room Air Weight: 172 lb Body Mass Index (BMI) 28.6 Charges/Coding Procedures Integumentary 111xxx-113xx: 09812 Global Visit Physical Exam Narrative Right breast wound healing well, granulating. No drainage. 1 x 0.5 cm and 1 cm deep. Re-packed today. Central abdomen with some spitting suture (N sorb) which were removed and the wound cleaned with curette (1 x 0.5 cm). The umbilicus has healed. Debridement Note Debridement Note Wound debrided: Gentle currette to the right chest and abdominal incision wounds Laterality: Right (right chest and central abdomen ) Type of Debridement: Excisional debridement Anesthesia Used: 4% Lidocaine Solution Depth: in the subcutaneous layer Percentage of wound debrided: 100 Instrument Used: 5mm curette Severity: Fat Layer Exposed Amount of bleeding with debridement: Mild Bleeding Controlled with: Compression and gauze Patient tolerated procedure: Patient tolerated procedure well Post-Debridement Measurements and Additional Note: Post-Debridement Measurements/Treatment WC - Nurse 1 - General Ulcer Assessment Start: 05/16/24 10:22 Freq: Status: Active Protocol: TASNEEMEXT Activity Type Activity Date Activity User E-sign Co-sign Detail Recorded Client Recorded Date Recorded By Document 05/16/24 10:22 [facility] [id number] 05/16/24 10:35 [facility] 05/16/24 10:22 - Today's Visit Information Type of service Initial Visit Arrival Mode Ambulatory Transfer Assistance None Patient Identification Verified (Name & Yes ) Patient Requires Transmission-Based No Precautions Height and Weight Height 5 ft 5 in Weight 172 lb Weight in Pounds 172.0 lbs Weight Measurement Method Stated by Patient Body Mass Index (BMI) 28.6 BMI Classification Overweight Vital Signs Temperature (97.8 F-99.1 F) 97.1 F L Temperature Source Temporal Pulse Rate (60-100) 78 Pulse Location Monitor Respiratory Rate (12-18) 18 Respiratory rate source Observation Oxygen Delivery Method Room Air Blood Pressure (90/60-120/80) 159/75 H Blood Pressure Mean (mm Hg) 103 Source Monitor Position Sitting Blood Pressure Location Right Arm History Since Last Visit- (Skip if this is Patient's initial visit) Left Footwear Regular Shoe Right Footwear Regular Shoe Pain Scale: 0-10 Numeric Is Patient Pain Free? Yes Teaching Assessment Preferences Verbal,Written, Audio/Visual, Demonstration Barriers to Learning None Readiness To Learn Excellent Willingness to Engage in Self Management High Activies Readiness to Engage in Self Management High Activities Anxiety Level Calm Cooperation Cooperative Perception Coherent Interest in Health Problem Asks Questions Education Importance Acknowledges Need Does Patient Smoke tobacco or other No substances Smoking Status Former smoker Is Patient Diabetic No Functional Assessment Recent Decline in Ability to Perform Denies Any Declines Culture/Tenriism/Ham Doctor Cultural/Tenriism Needs that may affect No Treatment Plan Teaching: Wound Center *Welcome to the Wound Center -Person Taught Patient -Teaching Method Discussion -Response to teaching Verbalize Understanding - Nurse 1 - General Ulcer Measurement Start: 05/16/24 10:22 Freq: Status: Active Protocol: Activity Type Activity Date Activity User E-sign Co-sign Detail Recorded Client Recorded Date Recorded By Document 05/16/24 10:22 [facility] [id number] 05/16/24 10:35 [facility] 05/16/24 10:22 Wound Center Nurse 1 #5 Abd Cluster -Current Size (cm) - Length 0.9 -Current Size (cm) - Width 14.3 -Current Size (cm) - Depth 0.2 -Total Square Cm 12.87 -Date of Last Picture (Recall this 05/16/24 field) -Photo Taken Yes -Tunneling No -Undermining/Tunneling No -Circular Undermining No -Exudate Amt Medium -Exudate Type Serosanguineous -Wound Margin Distinct, Outline Attached -Granulation Amt None Present (0 %) -Necrosis Amt Large (67-100%) -Necrotic Tissue Type Adherent Slough -Structure Exposed N/A -Texture (Clare-wound Skin Appearance) Scarring -Moisture (Clare-wound Skin Appearance) No Abnormality -Color (Clare-wound Skin Appearance) No Abnormality -Temperature (Clare-wound Skin No Abnormality Appearance) (Pt Warm) -Ulcer Cleansing Soap and Water -Foul Odor after Cleansing No -Anesthetic Used 5% Lidocaine Gel #4 Umbilicus -Combined with other wound No -Current Size (cm) - Length 0.1 -Current Size (cm) - Width 0.6 -Current Size (cm) - Depth 0.1 -Total Square Cm 0.06 -Date of Last Picture (Recall this 05/16/24 field) -Photo Taken Yes -Tunneling No -Undermining/Tunneling No -Circular Undermining No -Exudate Amt Small -Exudate Type Serosanguineous -Wound Margin Distinct, Outline Attached -Granulation Amt Large (67-100%) -Granulation Quality [place] -Necrosis Amt Small (1-33%) -Necrotic Tissue Type Adherent Slough -Structure Exposed N/A -Texture (Clare-wound Skin Appearance) Scarring -Moisture (Clare-wound Skin Appearance) No Abnormality -Color (Clare-wound Skin Appearance) No Abnormality -Temperature (Clare-wound Skin No Abnormality Appearance) (Pt Warm) -Tenderness on Palpation (Clare-wound No Skin Appearance) -Ulcer Cleansing Soap and Water -Foul Odor after Cleansing No -Anesthetic Used 5% Lidocaine Gel #3 R Breast -Combined with other wound No -Current Size (cm) - Length 0.5 -Current Size (cm) - Width 1.4 -Current Size (cm) - Depth 1.9 -Total Square Cm 0.70 -Photo Taken Yes -Tunneling Yes -Tunneling Position (O'clock) 3 -Tunneling Distance (cm) 4.7 -Undermining/Tunneling No -Circular Undermining No -Exudate Amt Medium -Exudate Type Serosanguineous -Wound Margin Distinct, Outline Attached -Granulation Amt Large (67-100%) -Granulation Quality Red -Necrosis Amt None Present (0 %) -Structure Exposed N/A -Texture (Clare-wound Skin Appearance) No Abnormality, Scarring -Moisture (Clare-wound Skin Appearance) No Abnormality -Color (Clare-wound Skin Appearance) No Abnormality -Temperature (Clare-wound Skin No Abnormality Appearance) (Pt Warm) -Ulcer Cleansing Soap and Water -Foul Odor after Cleansing No -Anesthetic Used 5% Lidocaine Gel WC - Nurse 2 - General Ulcer CM Notes Start: 05/16/24 10:22 Freq: Status: Active Protocol: Activity Type Activity Date Activity User E-sign Co-sign Detail Recorded Client Recorded Date Recorded By Document 05/16/24 11:02 DS [id number] 05/16/24 11:12 DS 05/16/24 11:02 Wound Center Nurse 2 #5 Abd Cluster -Time 11:00 -Correct Patient Yes -Correct Side, Site, Position Yes -Correct Procedure Yes -Procedure Performed Yes -Type of Procedure Debridement -Clinical Debridement Subcutaneous -Tissue Removed Subcutaneous -Post Debridement (cm) - Length 0.9 -Post Debridement (cm) - Width 14 -Post Debridement (cm) - Depth 0.7 -Total Square (Post) (cm) 12.6 -Area of Debridement (cm) - Length 0.9 -Area of Debridement (cm) - Width 14 -Total Square (Area) (cm) 12.6 -Tunneling No -Undermining/Tunneling No -Circular Undermining No -Wound/Ulcer Outcome Not Healed -Ulcer Cleansing Rinsed/ Irrigated with Saline -Foul Odor after Cleansing No -Bioengineered Tissue No -Bleeding Controlled with Pressure -Treatment Response Procedure Tolerated Well -Debridement - Subq, 1st 20sq cm Yes #4 Umbilicus -Time 11:00 -Correct Patient Yes -Procedure Performed No #3 R Breast -Time 11:00 -Correct Patient Yes -Procedure Performed No -Post Debridement (cm) - Length 1.0 -Post Debridement (cm) - Width 0.5 -Post Debridement (cm) - Depth 1.0 -Total Square (Post) (cm) 0.50 -Area of Debridement (cm) - Length 1.0 -Area of Debridement (cm) - Width 0.5 -Total Square (Area) (cm) 0.50 -Tunneling No -Undermining/Tunneling No -Circular Undermining No -Wound/Ulcer Outcome Not Healed Pain Scale: 0-10 Numeric Is Patient Pain Free? Yes WC - Nurse 3 - General Ulcer D/C NN Start: 05/16/24 10:22 Freq: Status: Active Protocol: Activity Type Activity Date Activity User E-sign Co-sign Detail Recorded Client Recorded Date Recorded By Document 05/16/24 11:20 [facility] [id number] 05/16/24 11:22 [facility] 05/16/24 11:20 Wound Care Center Nurse 3 #5 Abd Cluster -Ulcer Cleansing Rinsed/ Irrigated with Saline -Foul Odor after Cleansing No -Primary Dressing Applied Aquacel AG 4x4 -Other Dressing abd -Primary Dressing Covered/Secured with Secured with Tape -Aquacel AG 4x4 1 #4 Umbilicus -Ulcer Cleansing Rinsed/ Irrigated with Saline -Foul Odor after Cleansing No -Primary Dressing Applied Aquacel AG 4x4 -Other Dressing abd -Primary Dressing Covered/Secured with Secured with Tape -Aquacel AG 4x4 0 #3 R Breast -Ulcer Cleansing Rinsed/ Irrigated with Saline -Foul Odor after Cleansing No -Primary Dressing Applied Aquacel AG 4x4 -Primary Dressing Covered/Secured with Dry Gauze, Secured with Tape -Aquacel AG 4x4 0 Pain Scale: 0-10 Numeric Is Patient Pain Free? Yes WC - Visit Discharge Discharge Condition Stable Ambulatory Status Ambulatory Transportation Private Auto Assessment/Plan Assessment/Plan (1) History of reconstruction of both breasts: CODE(S): Z98.890 - Other specified postprocedural states PLAN: Debrided gently and cleaned today. Umbilicus healed, abdomen and right breast healing. OK for bra Continue Aquacel Ag dressings twice daily. F/u in 1 week Patient happy with the plan
[2024-05-23 08:52] VITALS: BP 145/80; PULSE 80; RESP 16; TEMP 36.1; BMI 28.6
--- NOTE | 2024-05-23 15:41 | WC ---
PHOTO 05/23/24 ABD CLUSTER AND UMBILICUS
--- NOTE | 2024-05-23 15:41 | WC ---
PHOTO 05/23/24 RIGHT BREAST
--- NOTE | 2024-06-06 06:46 | PCM.WC.PN ---
History of Present Illness Date of Service: 06/06/24 Chief Complaint: Compromised bilateral nipple skin grafts after mastectomy with immediate reconstruction and placement of free nipple graft. History of Wound: Patient underwent MAKENNA flaps for bilateral breast reconstruction on 31 Mar 2024. There is an upper pole right breast wound that contained some fat necrosis from thin mastectomy flap dissection during capsulectomy/preparation for the flaps. There is healthy granulation tissue over the flap at the base of the wound. Also has had some small wounds on the medial aspect of her donor site, all of which are being treated with Aquacel Ag. 16 May 2024: Less drainage today. No fevers chills. Doing well with wound care. 23 May 2024: Doing well overall with dressing changes. Making progress. Subjective Subjective CURRENT ENCOUNTER, 06 June 2024: Doing well. Feels like she's making progress with right upper pole breast wound, and the abdominal incision is nearly healed. Objective Data Objective Data Vital Signs: Vital Signs Temp Pulse Resp BP O2 Del Method 96.9 F L 80 16 145/80 H Room Air 05/23/24 08:52 05/23/24 08:52 05/23/24 08:52 05/23/24 08:52 05/23/24 08:52 Oxygen Delivery Method Room Air Weight: 172 lb Body Mass Index (BMI) 28.6 Charges/Coding Procedures Integumentary 111xxx-113xx: 93207 Global Visit Physical Exam Narrative Right breast wound healing well, granulating. No drainage. 0.5 x 1.1 cm and 1 cm deep. Re-packed today. Beafy red granulation at the base over the MAKENNA flap Central abdomen Re-epithelialized. Healthy umbilicus. Debridement Note Debridement Note Post-Debridement Measurements and Additional Note: Post-Debridement Measurements/Treatment - Nurse 1 - General Ulcer Assessment Start: 05/16/24 10:22 Freq: Status: Active Protocol: HERNANDEZ Activity Type Activity Date Activity User E-sign Co-sign Detail Recorded Client Recorded Date Recorded By Document 05/16/24 10:22 [facility] [id number] 05/16/24 10:35 [facility] Document 05/23/24 08:52 KW [id number] 05/23/24 08:57 KW 05/16/24 05/23/24 10:22 08:52 - Today's Visit Information Type of service Initial Visit Follow-up Visit (Physician/CURRICULUM AND INSTRUCTION SPECIALIST ) Arrival Mode Ambulatory Ambulatory Transfer Assistance None Patient Identification Verified (Name & Yes Yes ) Patient Requires Transmission-Based No Precautions Height and Weight Height 5 ft 5 in Weight 172 lb Weight in Pounds 172.0 lbs Weight Measurement Method Stated by Patient Body Mass Index (BMI) 28.6 28.6 BMI Classification Overweight Overweight Vital Signs Temperature (97.8 F-99.1 F) 97.1 F L 96.9 F L Temperature Source Temporal Temporal Pulse Rate (60-100) 78 80 Pulse Location Monitor Monitor Respiratory Rate (12-18) 18 16 Respiratory rate source Observation Observation Oxygen Delivery Method Room Air Room Air Blood Pressure (90/60-120/80) 159/75 H 145/80 H Blood Pressure Mean (mm Hg) 103 101 Source Monitor Monitor Position Sitting Sitting Blood Pressure Location Right Arm Left Arm History Since Last Visit- (Skip if this is Patient's initial visit) Have you changed medications since your No last visit? Any new allergies or adverse reactions No Had a fall/change in ADL's that may No increase risk of falls Signs or symptoms of abuse and/or No neglect since last visit Have you been in the hospital since your No last visit? Has dressing in place as prescribed Yes Has compression in place as prescribed Yes Has offloadiing in place as prescribed N/A Experienced any changes in pain level or No management Left Footwear Regular Shoe Regular Shoe Right Footwear Regular Shoe Regular Shoe Pain Scale: 0-10 Numeric Is Patient Pain Free? 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 Cultural/Mormon Needs that may affect No Treatment Plan Teaching: Wound Center *Welcome to the Wound Center -Person Taught Patient -Teaching Method Discussion -Response to teaching Verbalize Understanding WC - Nurse 1 - General Ulcer Measurement Start: 05/16/24 10:22 Freq: Status: Active Protocol: Activity Type Activity Date Activity User E-sign Co-sign Detail Recorded Client Recorded Date Recorded By Document 05/16/24 10:22 [facility] [id number] 05/16/24 10:35 [facility] Document 05/23/24 08:52 KW [id number] 05/23/24 08:57 KW 05/16/24 05/23/24 10:22 08:52 Wound Center Nurse 1 #5 Abd Cluster -Current Size (cm) - Length 0.9 0.8 -Current Size (cm) - Width 14.3 13.5 -Current Size (cm) - Depth 0.2 0.6 -Total Square Cm 12.87 10.80 -Date of Last Picture (Recall this 05/16/24 05/23/24 field) -Photo Taken Yes -Tunneling No -Undermining/Tunneling No -Circular Undermining No -Exudate Amt Medium Medium -Exudate Type Serosanguineous Serosanguineous -Wound Margin Distinct, Distinct, Outline Outline Attached Attached -Granulation Amt None Present (0 Large (67-100%) %) -Granulation Quality Red -Necrosis Amt Large (67-100%) -Necrotic Tissue Type Adherent Slough -Structure Exposed N/A -Texture (Calre-wound Skin Appearance) Scarring Assessed -Moisture (Clare-wound Skin Appearance) No Abnormality Assessed -Color (Clare-wound Skin Appearance) No Abnormality Assessed -Temperature (Clare-wound Skin No Abnormality No Abnormality Appearance) (Pt Warm) (Pt Warm) -Tenderness on Palpation (Clare-wound No Skin Appearance) -Ulcer Cleansing Soap and Water Rinsed/ Irrigated with Saline -Foul Odor after Cleansing No No -Anesthetic Used 5% Lidocaine 4% Lidocaine Gel Solution #4 Umbilicus -Combined with other wound No -Current Size (cm) - Length 0.1 0.1 -Current Size (cm) - Width 0.6 0.1 -Current Size (cm) - Depth 0.1 0 -Total Square Cm 0.06 0.01 -Date of Last Picture (Recall this 05/16/24 05/23/24 field) -Photo Taken Yes -Tunneling No -Undermining/Tunneling No -Circular Undermining No -Exudate Amt Small None Present -Exudate Type Serosanguineous -Wound Margin Distinct, Distinct, Outline Outline Attached Attached -Granulation Amt Large (67-100%) -Granulation Quality [place] -Necrosis Amt Small (1-33%) -Necrotic Tissue Type Adherent Slough -Structure Exposed N/A -Texture (Clare-wound Skin Appearance) Scarring Assessed -Moisture (Clare-wound Skin Appearance) No Abnormality Assessed,Dry/ Scaly -Color (Clare-wound Skin Appearance) No Abnormality Assessed -Temperature (Clare-wound Skin No Abnormality No Abnormality Appearance) (Pt Warm) (Pt Warm) -Tenderness on Palpation (Clare-wound No No Skin Appearance) -Ulcer Cleansing Soap and Water Rinsed/ Irrigated with Saline -Foul Odor after Cleansing No No -Anesthetic Used 5% Lidocaine Gel #3 R Breast -Combined with other wound No -Current Size (cm) - Length 0.5 0.6 -Current Size (cm) - Width 1.4 1.3 -Current Size (cm) - Depth 1.9 1 -Total Square Cm 0.70 0.78 -Date of Last Picture (Recall this 05/23/24 field) -Photo Taken Yes -Tunneling Yes -Tunneling Position (O'clock) 3 -Tunneling Distance (cm) 4.7 -Undermining/Tunneling No -Circular Undermining No -Exudate Amt Medium Small -Exudate Type Serosanguineous Serosanguineous -Wound Margin Distinct, Distinct, Outline Outline Attached Attached -Granulation Amt Large (67-100%) -Granulation Quality Red -Necrosis Amt None Present (0 %) -Structure Exposed N/A -Texture (Clare-wound Skin Appearance) No Abnormality, Assessed Scarring -Moisture (Clare-wound Skin Appearance) No Abnormality Assessed -Color (Clare-wound Skin Appearance) No Abnormality Assessed -Temperature (Clare-wound Skin No Abnormality No Abnormality Appearance) (Pt Warm) (Pt Warm) -Tenderness on Palpation (Clare-wound No Skin Appearance) -Ulcer Cleansing Soap and Water Rinsed/ Irrigated with Saline -Foul Odor after Cleansing No No -Anesthetic Used 5% Lidocaine 4% Lidocaine Gel Solution WC - Nurse 2 - General Ulcer CM Notes Start: 05/16/24 10:22 Freq: Status: Active Protocol: Activity Type Activity Date Activity User E-sign Co-sign Detail Recorded Client Recorded Date Recorded By Document 05/16/24 11:02 DS [id number] 05/16/24 11:12 DS Document 05/23/24 09:02 DS [id number] 05/23/24 09:07 DS 03/03/25 03/10/25 11:02 09:02 Wound Center Nurse 2 #5 Abd Cluster -Time 11:00 09:02 -Correct Patient Yes Yes -Correct Side, Site, Position Yes Yes -Correct Procedure Yes Yes -Procedure Performed Yes Yes -Type of Procedure Debridement Debridement -Clinical Debridement Subcutaneous Subcutaneous -Tissue Removed Subcutaneous Subcutaneous -Post Debridement (cm) - Length 0.9 0.5 -Post Debridement (cm) - Width 14 14.0 -Post Debridement (cm) - Depth 0.7 0.7 -Total Square (Post) (cm) 12.6 7.00 -Area of Debridement (cm) - Length 0.9 0.5 -Area of Debridement (cm) - Width 14 14.0 -Total Square (Area) (cm) 12.6 7.00 -Tunneling No No -Undermining/Tunneling No No -Circular Undermining No No -Wound/Ulcer Outcome Not Healed Not Healed -Ulcer Cleansing Rinsed/ Rinsed/ Irrigated with Irrigated with Saline Saline -Foul Odor after Cleansing No No -Bioengineered Tissue No No -Bleeding Controlled with Pressure Pressure -Treatment Response Procedure Procedure Tolerated Well Tolerated Well -Offloading No -Debridement - Subq, 1st 20sq cm Yes No #4 Umbilicus -Time 11:00 09:03 -Correct Patient Yes Yes -Procedure Performed No No -Wound/Ulcer Outcome Healed- Epithelialized #3 R Breast -Time 11:00 09:03 -Correct Patient Yes Yes -Correct Side, Site, Position Yes -Correct Procedure Yes -Procedure Performed No Yes -Type of Procedure Debridement -Clinical Debridement Subcutaneous -Tissue Removed Subcutaneous -Post Debridement (cm) - Length 1.0 0.7 -Post Debridement (cm) - Width 0.5 1.5 -Post Debridement (cm) - Depth 1.0 1.0 -Total Square (Post) (cm) 0.50 1.05 -Area of Debridement (cm) - Length 1.0 0.7 -Area of Debridement (cm) - Width 0.5 1.5 -Total Square (Area) (cm) 0.50 1.05 -Tunneling No No -Undermining/Tunneling No No -Circular Undermining No No -Wound/Ulcer Outcome Not Healed Not Healed -Ulcer Cleansing Wound Cleanser -Foul Odor after Cleansing No -Bioengineered Tissue No -Bleeding Controlled with Pressure -Treatment Response Procedure Tolerated Well -Debridement - Subq, 1st 20sq cm Yes Pain Scale: 0-10 Numeric Is Patient Pain Free? Yes Yes - Nurse 3 - General Ulcer D/C NN Start: 05/16/24 10:22 Freq: Status: Active Protocol: Activity Type Activity Date Activity User E-sign Co-sign Detail Recorded Client Recorded Date Recorded By Document 05/16/24 11:20 [facility] [id number] 05/16/24 11:22 [facility] Document 05/23/24 09:23 [facility] [id number] 05/23/24 09:24 [facility] 05/16/24 05/23/24 11:20 09:23 Wound Care Center Nurse 3 #5 Abd Cluster -Ulcer Cleansing Rinsed/ Rinsed/ Irrigated with Irrigated with Saline Saline -Foul Odor after Cleansing No No -Primary Dressing Applied Aquacel AG 4x4 Aquacel AG 4x4 -Other Dressing abd abd -Primary Dressing Covered/Secured with Secured with Secured with Tape Tape -Aquacel AG 4x4 1 2 #4 Umbilicus -Ulcer Cleansing Rinsed/ Rinsed/ Irrigated with Irrigated with Saline Saline -Foul Odor after Cleansing No No -Primary Dressing Applied Aquacel AG 4x4 Aquacel AG 4x4 -Other Dressing abd abd -Primary Dressing Covered/Secured with Secured with Secured with Tape Tape -Aquacel AG 4x4 0 0 #3 R Breast -Ulcer Cleansing Rinsed/ Rinsed/ Irrigated with Irrigated with Saline Saline -Foul Odor after Cleansing No No -Primary Dressing Applied Aquacel AG 4x4 Aquacel AG 4x4 -Primary Dressing Covered/Secured with Dry Gauze, Dry Gauze, Secured with Secured with Tape Tape -Aquacel AG 4x4 0 0 Pain Scale: 0-10 Numeric Is Patient Pain Free? Yes Yes - Visit Discharge Discharge Condition Stable Stable Ambulatory Status Ambulatory Ambulatory Transportation Private Auto Private Auto Assessment/Plan Assessment/Plan (1) History of reconstruction of both breasts: CODE(S): Z98.890 - Other specified postprocedural states PLAN: Debrided gently and cleaned today. Umbilicus/abdomen healed. Continue Aquacel Ag dressings twice daily to the right breast wound F/u in 2 weeks Patient happy with the plan
[2024-06-06 08:57] VITALS: BP 131/70; PULSE 61; RESP 18; TEMP 36.1; BMI 28.6
--- NOTE | 2024-06-06 14:36 | WC ---
PHOTO 06/06/24 RIGHT BREAST
--- NOTE | 2024-06-06 14:39 | WC ---
PHOTO 06/06/24 ABD CLUSTER
== END 2024-06-13 23:59 | disposition home or self-care (01) ==
LOC: WC 08:45
PROVIDERS: PCP Family Medicine; Referring Provider Nurse Practitioner Family; Visit Provider Surgery Plastic and Reconstructive Surgery
DX: S21.001A Unspecified open wound of right breast, initial encounter (principal); Y83.8 Other surgical procedures as the cause of abnormal reaction of the patient, or of later complication, without mention of misadventure at the time of the procedure; Z79.899 Other long term (current) drug therapy; Z87.891 Personal history of nicotine dependence; Z90.13 Acquired absence of bilateral breasts and nipples; Z98.890 Other specified postprocedural states
CPT/HCPCS: 11042

== ENCOUNTER 2024-06-20 08:11 | Outpatient (RCR) | payer BC, SELFPAY ==
[2024-06-14 00:38] VITALS: BP 131/70; PULSE 61; RESP 18; TEMP 36.1; BMI 28.6
[2024-06-20 08:31] VITALS: BP 134/65; PULSE 72; RESP 18; TEMP 36.1; BMI 28.6
--- NOTE | 2024-06-20 09:04 | PCM.PN.SRG ---
Subjective Subjective CURRENT ENCOUNTER, 20 June 2024: Doing well. Recently went on a cruise and was happy with the breast reconstruction size overall while wearing a bathing suit. She feels like she's making progress with right upper pole breast wound. It has been getting much smaller. She is looking forward to excision of the excess skin with fat grafting. Objective Data Objective Data Vital Signs: Vital Signs Temp Pulse Resp BP 97 F L 72 18 134/65 H 06/20/24 08:31 06/20/24 08:31 06/20/24 08:31 06/20/24 08:31 Weight: 172 lb Body Mass Index (BMI) 28.6 Physical Exam Narrative Right breast wound healing well, granulating. No drainage. 0.5 x 0.5 cm and 1 cm deep. Re-packed today. Beafy red granulation at the base over the MAKENNA flap Deep flaps warm well-perfused Abdominal incision with some hypertrophic central scarring, but otherwise is healed Assessment & Plan Assessment/Plan (1) Non-pressure chronic ulcer of skin of other sites limited to breakdown of skin: PLAN: Right upper pole breast wound healing well Continue Aquacel Ag dressing changes twice daily Follow-up in plastic surgery clinic in 2 weeks (discharged from wound care center) Charges/Coding Procedures Integumentary 111xxx-113xx: 13889 Global Visit
== END 2024-07-13 23:59 | disposition home or self-care (01) ==
LOC: WC 08:11
PROVIDERS: PCP Family Medicine; Referring Provider Nurse Practitioner Family; Visit Provider Surgery Plastic and Reconstructive Surgery
DX: L98.491 Non-pressure chronic ulcer of skin of other sites limited to breakdown of skin (principal); Z79.899 Other long term (current) drug therapy; Z98.890 Other specified postprocedural states
CPT/HCPCS: 97597

== ENCOUNTER 2024-08-17 06:00 | Day surgery (SDC) | payer BC, SELFPAY ==
[2024-08-17] VITALS (15 sets, daily range): BP systolic 95–124; BP diastolic 49–69; PULSE 56–80; RESP 16–18; TEMP 36.1–36.9; O2SAT 92–96; BMI 29.7
--- OUTSIDE RECORDS SUMMARY | 2024-08-17 06:04 | XMS RPT_ITS | CCD ---
Author Organization [facility] Care Team Providers Care It Service Continuity Supervisor Name Role Phone REBEKA HE Unavailable Unavailable AMANDA OSBORNE Unavailable Amanda Carpneter Unavailable Unavailable Unavailable Amanda Osborne MD Primary Care Provider Amanda Osborne Unavailable Linda, Fanny Unavailable Unavailable Zenaida Silva Unavailable Sean Malagon Unavailable OSMIN PORTILLO Attending Unavailable AMANDA OSBORNE Primary Care Unavailable SELF, SELF Referring Unavailable AMANDA OSBORNE Primary Care Unavailable SELF, SELF Referring Unavailable MONICA KWAN Attending Unavailable Amanda Osborne Primary Care Flip Silva, Dr. Zenaida Hsu Attending Flip Silva, Dr. Zenaida Hsu Referring Amanda Carpenter Primary Care Fanny Echavarria Attending Unavailable Dr. Sean Malagon Attending Unavail able Amanda Osborne Primary Care Dr. Zenaida Shaffer Attending Provider Dr. Zenaida Barrett Referring Provider Dr. Zenaida Barrett Other Provider [phone] Amanda Osborne Primary Care Provider Dr. Zenaida Kelsey Admit Provider Dr. Amanda Osborne Referring Provider Kisha BUILDING MAINTENANCE CUSTODIAN, BUILDING MAINTENANCE CUSTODIAN-C Rachel E Attending Provider Kisha BUILDING MAINTENANCE CUSTODIAN, BUILDING MAINTENANCE CUSTODIAN-C Rachel E Referring Provider [phone] Kisha BUILDING MAINTENANCE CUSTODIAN, BUILDING MAINTENANCE CUSTODIAN-C Rachel E Other Provider Dr. Dustin Shore Attending Provider Dr. Zenaida Barrett Attending Provider Arnold, Dr. Zenaida Blair Attending Provider [phone] Arnold, Dr. Zenaida Blair Referring Provider [phone] Arnold, Dr. Zenaida Blair Other Provider [place], Dr. Patel Primary Care Provider Arnold, Dr. Zenaida Blair Admit Provider Dr. Amanda Osborne Referring Provider Kisha BUILDING MAINTENANCE CUSTODIAN, BUILDING MAINTENANCE CUSTODIAN-C Rachel E Attending Provider [phone] Kisha BUILDING MAINTENANCE CUSTODIAN, BUILDING MAINTENANCE CUSTODIAN-C Rachel E Referring Provider Kisha BUILDING MAINTENANCE CUSTODIAN, BUILDING MAINTENANCE CUSTODIAN-C Rachel E Other Provider Dr. Dustin Shore Attending Provider Dr. Robby Castellon Attending Provider Erica BUILDING MAINTENANCE CUSTODIAN, BUILDING MAINTENANCE CUSTODIAN-C Sarah Beth Attending Provider [phone] Dr. Amanda Osborne Primary Care Provider Dr. Amanda Osborne Referring Provider Dr. Zenaida Barrett Attending Provider Kisha BUILDING MAINTENANCE CUSTODIAN, BUILDING MAINTENANCE CUSTODIAN-C Rachel E Attending Provider Dr. Amanda Osborne Primary Care Provider Dr. Amanda Osborne Referring Provider Dr. Zenaida Barrett Attending Provider Dr. Zenaida Barrett Admit Provider [phone] Zenaida Barrett Referring Provider [phone] Dr. Zenaida Barrett Other Provider [phone] MD AMANDA OSBORNE Attending Monica MD AMANDA Cuevas Referring Monica MD AMANDA Cuevas Primary Care Monica vailable MD ZENAIDA SILVA Attending Unavail able MD ZENAIDA SILVA Referring Unavail able MD AMANDA OSBORNE Primary Care Monica MD ZENAIDA Coates Attending Unavail able MD AMANDA OSBORNE Primary Care Monica vailable MD ZENAIDA SILVA Attending Unavail able MD AMANDA OSBORNE Primary Care Monica MD AMANDA Cuevas Primary Care Monica vailable Malia, MsVanna Irene Raeann Attending Monicavai Dr. Amanda Salinas Primary Care Provider Dr. Zenaida Barrett Admit Provider [phone] Zenaida Barrett Attending Provider [phone] Dr. Zenaida Barrett Referring Provider [phone] Dr. Zenaida Barrett Other Provider [phone] Amanda Osborne Referring Provider [phone] Kisha BUILDING MAINTENANCE CUSTODIAN, BUILDING MAINTENANCE CUSTODIAN-C Rachel Zarate Attending Provider Amanda Osborne MD Primary Care Provider Amanda Osborne MD Unavailable AMANDA OSBORNE Primary Care Unavailab AB Goldberg Attending Unavailable Amanda Osborne MD Primary Care Provider Amanda Osborne MD Unavailable AMANDA OSBORNE Attending Unavailab AMANDA Tobin Primary Care Unavailab AMANDA Tobin Attending Unavailab AMANDA Tobin Primary Care Unavailab ZENAIDA Eden Attending Unavailable LONGSDORF, AMANDA A Primary Care Unavailab le LONGMEGAN, AMANDA A Attending Unavailab le [place], AMANDA A Primary Care Unavailab le [place], AMANDA A Primary Care Unavailab lázaro Osborne MD, Dr. Patel Primary Care Provide r [place] ROBERTO, Dr. Patel Referring Provider Tiffany ROBERTO, Dr. Mason Attending Provider Gordon ROBERTO, Dr. Smith Attending Provider Tiffany ROBERTO, Dr. Mason Referring Provider Tiffany ROBERTO, Dr. Mason Admit Provider Tiffany ROBERTO, Dr. Mason Other Provider Kisha BUILDING MAINTENANCE CUSTODIAN-C, Rachel E Attending Provider Kisha BUILDING MAINTENANCE CUSTODIAN-C, Rachel E Referring Provider [place] ROBERTO, Dr. Patel Primary Care Provide r [place] ROBERTO, Dr. Patel Referring Provider Tiffany ROBERTO, Dr. Mason Attending Provider Kisha BUILDING MAINTENANCE CUSTODIAN, Rachel E Referring Unavailabl e Kisha BUILDING MAINTENANCE CUSTODIAN, Rachel E Attending Unavailabl e Longsdorf, Amanda Primary Care Unavailable Marlon Allen Attending Unavailable Marlon Allen Referring Unavailable Marlon Allen Admitting Unavailable Longsdorf, Amanda Primary Care Unavailable Marlon Allen Attending Unavailable Kisha BUILDING MAINTENANCE CUSTODIAN, Rachel E Referring Unavailabl e [place]sdorf, Amanda Primary Care Unavailable Marlon Allen Attending Unavailable Kisha BUILDING MAINTENANCE CUSTODIAN, Rachel E Referring Unavailabl e [place]sdorf, Amanda Primary Care Unavailable Marlon Allen Attending Unavailable [place]sdorf, Amanda Primary Care Unavailable Longsdorf, Amanda Referring Unavailable Marlon Allen Consulting Unavailable Kisha BUILDING MAINTENANCE CUSTODIAN, Rachel E Referring Unavailabl e [place]sdorf, Amanda Primary Care Unavailable Marlon Allen Attending Unavailable Marlon Allen Consulting Unavailable Kisha BUILDING MAINTENANCE CUSTODIAN, Rachel E Referring Unavailabl e Longsdorf, Amanda Primary Care Unavailable Siska, Marlon Attending Unavailable [place]sdorf, Amanda Primary Care Unavailable Marlon Allen Consulting Unavailable Kisha BUILDING MAINTENANCE CUSTODIAN, Rachel E Referring Unavailabl e Marlon Allen Attending Unavailable [place]sdorf, Amanda Primary Care Unavailable Longsdorf, Amanda Referring Unavailable Kisha BUILDING MAINTENANCE CUSTODIAN, Rachel E Attending Unavailabl e Longsdorf, Amanda Referring Unavailable Marlon Allen Attending Unavailable [place]sdorf, Amanda Primary Care Unavailable Longsdorf, Amanda Referring Unavailable Marlon Allen Attending Unavailable [place]sdorf, Amanda Primary Care Unavailable Longsdorf, Amanda Primary Care Unavailable Marlon Allen Referring Unavailable Sarah Leyva Attending Unavailabl e [place]sdorf, Amanda Referring Unavailable Marlon Allen Attending Unavailable [place]sdorf, Amanda Primary Care Unavailable Longsdorf, Amanda Primary Care Unavailable Marlon Allen Referring Unavailable Marlon Allen Attending Unavailable Marlon Allen Consulting Unavailable Tiffany Marlon Admitting Unavailable Longsdorf, Amanda Referring Unavailable Marlon Allen Attending Unavailable Longsdorf, Amanda Primary Care Unavailable Longsdorf, Amanda Primary Care Unavailable Longsdorf, Amanda Referring Unavailable Kisha BUILDING MAINTENANCE CUSTODIAN, Rachel Zarate Attending Unavailabl e Marlon Allen Attending Unavailable Longsdorf, Amanda Primary Care Unavailable Longsdorf, Amanda Referring Unavailable Longsdorf, Amanda Primary Care Unavailable Marlon Allen Attending Unavailable Longsdorf, Amanda Referring Unavailable Longsdorf, Amanda Primary Care Unavailable Longsdorf, Amanda Referring Unavailable Kisha BUILDING MAINTENANCE CUSTODIAN, Rachel Zarate Attending Unavailabl e Longsdorf, Amanda Referring Unavailable SisMarlon strong Attending Unavailable Longsdorf, Amanda Primary Care Unavailable Longsdorf, Amanda Referring Unavailable Kisha BUILDING MAINTENANCE CUSTODIAN, Rachel E Attending Unavailabl e [place]sdorf, Amanda Primary Care Unavailable Rodrigo Abraham Referring Unavailable Rodrigo Abraham Attending Unavailable Longsdorf, Amanda Primary Care Unavailable Longsdorf, Amanda Primary Care Unavailable Longsdorf, Amanda Referring Unavailable Kisha BUILDING MAINTENANCE CUSTODIAN, Rachel E Attending Unavailabl e Marlon Allen Attending Unavailable Longsdorf, Amanda Primary Care Unavailable Longsdorf, Amanda Referring Unavailable Marlon Allen Attending Unavailable [place]sdorf, Amanda Primary Care Unavailable Marlon Allen Referring Unavailable Tiffany, Marlon Attending Unavailable Marlon Allen Consulting Unavailable Marlon Allen Admitting Unavailable Longcathieorf, Amanda Primary Care Unavailable Marlon Allen Attending Unavailable Marlon Allen Consulting Unavailable Kisha BUILDING MAINTENANCE CUSTODIAN, Rachel Zarate Referring Unavailabl e Longsdorf, Amanda Primary Care Unavailable Longsdorf, Amanda Primary Care Unavailable Marlon Allen Attending Unavailable Wiltonorf, Amanda Referring Unavailable Longcaorf, Amanda Primary Care Unavailable Kisha BUILDING MAINTENANCE CUSTODIAN, Rachel Zarate Referring Unavailabl e Marlon Allen Attending Unavailable Allergies Allergy Classification Reported Allergen(s) Allergy Type Date of Onset Reaction(s) Facility Penicillins (antibiotic) (2 sources) Penicillins; Translations: [Penicillins] Drug Allergy [facility] Work Phone: (20 sources) Penicillins; Translations: [Penicillins] Allergy to drug (finding) 2 [facility] (10 sources) Penicillins Allergy to substance 3 [facility] (6 sources) Penicillins Drug Intolerance 2 [facility] Work Phone: (1 source) Penicillins Drug allergy (disorder) 5 [facility] Repository Medications Current Medications Medication Drug Class(es) Dates Sig (Normalized) Sig (Original) [id number] 200 actuat albuterol 0.09 mg/actuat metered dose [...] days 6 tablet 0 03/16/2021 03/20/2021 Active cefadroxil 500 mg oral capsule (3 sources) Cephalosporin Antibacterial Start: 04-14-2022 take 500 mg by mouth twice daily Cefadroxil Active 500 MG PO TWICE A DAY 28 April 14, 2022 12:00am celecoxib 100 mg oral capsule (2 sources) Nonsteroidal Anti-inflammatory Drug Start: 04-03-2024 take 1 capsule by mouth twice daily Celecoxib (Celebrex) 100 mg capsule Active 100 mg PO TWICE A DAY 10 April 03, 2024 1:00am erythromycin ethylsuccinate 400 mg oral tablet (2 sources) Macrolide, Macrolide Antimicrobial Start: 06-02-2022 Erythromycin Ethylsuccinate (E.E.S. 400) 400 mg tablet Active 400 MG PO EVERY 6 HOURS 84 June 02, 2022 12:00am fluticasone propionate 0.05 mg/actuat metered dose nasal spray (11 sources) Corticosteroid Start: 08-28-2023 take 2 spray(s) nasal route twice daily fluticasone (Flonase) 50 mcg/actuation nasal spray Indications: Allergic rhinitis, unspecified seasonality, unspecified trigger USE 2 SPRAY(S) IN EACH NOSTRIL TWICE DAILY 48 mL 1 08/28/2023 Active Start: 12-22-2022 take 2 spray(s) nasa l route twice daily fluticasone (Flonase) 50 mcg/actuation [...] Amanda Osborne MD Start : 05-Mar-2022 Active gabapentin 100 mg oral capsule (2 sources) Anti-epileptic Agent Start: 04-03-2024 take 1 capsule by mouth three times daily Gabapentin (Neurontin) 100 mg capsule Active 100 mg PO THREE TIMES A DAY 15 April 03, 2024 12:00pm ibuprofen 800 mg oral tablet (20 sources) Nonsteroidal Anti-inflammatory Drug Start: 04-17-2023 End: 04-17-2023 take 1 tablet by mouth every eight hours for pain ibuprofen 800 mg tablet Indications: Migraine without status migrainosus, not intractable, unspecified migraine type Take 1 tablet (800 mg) by mouth every 8 hours if needed for mild pain (1 - 3). 90 tablet 11 04/17/2023 Active Start: 03-28-2022 take 1 tablet by viola th every twelve hours as needed for headache Ibuprofen 800 mg tablet Active 800 mg PO EVERY 12 HOURS NEEDED as needed for Migraine Headache March 28, 2022 1:00am On Hold: Resume on 04/11/24. Start: 03-02-2022 take 1 tablet by viola [...] of this medication.Take with food or milk. omeprazole 40 mg delayed release oral capsule (20 sources) Proton Pump Inhibitor Start: 025 take 1 capsule by mouth once daily omeprazole (PriLOSEC) [address] capsule Indications: Gastroesophageal reflux disease, unspecified whether esophagitis present Take 1 capsule (40 mg) by mouth once daily. 90 capsule 3 03/21/2024 Active Start: 01-11-2024 End: 03-21-2024 take 1 capsule by mouth once daily omeprazole (PriLOSEC) [address] capsule Indications: Esophagitis, unspecified without bleeding TAKE 1 CAPSULE BY MOUTH EVERY DAY 90 capsule 01/11/2024 03/21/2024 Discontinued (Reorder) Start: 03-05-2022 End: 04-17-2023 take 1 capsule by mouth once daily omeprazole (PriLOSEC) [address] capsule Indications: Esophagitis, unspecified without bleeding TAKE 1 CAPSULE BY MOUTH ONCE DAILY 90 capsule 10/02/2023 Active ondansetron 4 mg disintegrating oral tablet (15 sources) Serotonin-3 Receptor Antagonist Start: 04-03-2024 take 1 tablet by mouth every eight hours as needed for nausea and vomiting Ondansetron 4 mg tablet,disintegrating Active 4 mg PO Q8H as needed for nausea and vomiting April 03, 2024 1:00am Start: 01-23-2023 End: 01-04-2024 take 1 tablet by mouth every eight hours as needed for nausea and vomiting Ondansetron 4 mg tablet,disintegrating Discontinued 4 mg PO Q8H as needed for nausea and vomiting 10 January 23, 2023 1:00am January 04, 2024 8:23am Start: 04-14-2022 End: 05-22-2022 take 1 tablet by mouth every eight hours as needed for nausea and vomiting Ondansetron 4 mg tablet,disintegrating Discontinued 4 mg PO Q8H as needed for nausea and vomiting 28 07April 14, 2022 1:00am May 22, 2022 1:56pm polysaccharide iron complex 150 mg oral capsule (3 sources) Start: 04-14-2022 Polysaccharide Iron Complex (Ferrex 150) 150 mg iron Capsule Active 150 MG PO DAILY April 14, 2022 12:00am predniSONE 20 mg oral tablet (1 source) Start: 03-16-2021 End: 03-22-2021 take 2 tablets by mouth once daily, then take 1 tablet by mouth once daily predniSONE 20 MG tablet Take 2 tablets by mouth daily for 3 days, THEN 1 tablet daily for 3 days. 40,40,40,20,20,20. 9 tablet 0 03/16/2021 03/22/2021 Active silver sulfADIAZINE 10 mg/ml topical cream (2 sources) Sulfonamide Antibacterial Start: 04-03-2024 Silver Sulfadiazine 1 % cream Active 1 NMA TOPICAL TWICE A DAY 50 April 03, 2024 1:00am apply a 1.5 mm thickness to the umbilicus and to the breast incisions twice daily sulfamethoxazole 800 mg / trimethoprim 160 mg oral tablet (3 sources) Dihydrofolate Reductase Inhibitor Antibacterial, Sulfonamide Antimicrobial Start: 08-04-2023 End: 08-14-2023 take 1 tablet by mouth twice daily sulfamethoxazole-tr imethoprim (Bactrim DS) 800-160 mg tablet Indications: Cutaneous [...] sources) Serotonin-1b and Serotonin-1d Receptor Agonist Start: 03-21-2024 take 1 tablet by mouth once SUMAtriptan (Imitrex) 100 mg tablet Indications: Migraine without status migrainosus, not intractable, unspecified migraine type Take 1 tablet (100 mg) by mouth 1 time if needed for migraine (TAKE 1 TABLET EVERY 2 HOURS NEEDED FOR MIGRAINE. DO NOT EXCEED 200 MG). 9 tablet 11 03/21/2024 Active Start: 04-17-2023 End: 03-21-2024 take 1 tablet by mouth once SUMAtriptan (Imitrex) 100 mg tablet Indications: Migraine without status migrainosus, not intractable, unspecified migraine type Take 1 tablet (100 mg) by mouth 1 time if needed for migraine (TAKE 1 TABLET EVERY 2 HOURS NEEDED FOR MIGRAINE. DO NOT EXCEED 200 MG). 9 tablet 11 04/17/2023 03/21/2024 Discontinued (Reorder) Start: 03-28-2022 Sumatriptan Bean ccinate 100 mg tablet Active 100 mg PO NEEDED as needed for MIGRAINE March 28, 2022 1:00am valACYclovir 500 mg oral tablet (20 sources) Herpesvirus Nucleoside Analog DNA Polymerase Inhibitor, Herpes Simplex Virus Nucleoside Analog DNA Polymerase Inhibitor, Herpes Zoster Virus Nucleoside Analog DNA Polymerase Inhibitor Start: 03-21-2024 take 1 tablet by mouth once daily valACYclovir (Valtrex) 500 mg tablet Indications: Herpes Take 1 tablet (500 mg) by mouth once daily. 90 tablet 3 03/21/2024 Active Start: 06-13-2019 End: 03-21-2024 take 1 tablet by mouth once daily as needed Valacyclovir 500 mg tablet Active 500 mg PO DAILY as needed for cold sores March 28, 2022 1:00am Completed/Discontinued Medications Medication Drug Class(es) Dates Sig [...] End: 05-Jun-2019 Generic Substitution Allowed Comments: [employer] law prohibits the transfer of this drug [...] serious breathing problems. Comment on above: [employer] law prohibits the transfer of this drug to any person other than the person for whom it was prescribed.May cause drowsiness. Alcohol may intensify this effect. Use care when operating dangerous machinery.This product contains acetaminophen. Do not use with any other product containing acetaminophen to prevent possible liver damage.Using more of this medication than prescribed may cause serious breathing problems. acetaminophen 325 mg / oxyCODONE hydrochloride 5 mg oral tablet (13 sources) Opioid Agonist Start: 01-23-2023 End: 01-04-2024 Oxycodone-Acetamin ophen (Percocet) 5-325 mg tablet Discontinued 1 {tbl} PO EVERY 6 HOURS as needed for pain (scale score 7-10) 10 10January 23, 2023 January 04, 2024 8:23am Start: 12-25-2022 End: 01-01-2023 Oxycodone-Acetaminophen (Per cocet) 5-325 mg tablet Discontinued 1 {tbl} PO TWICE A DAY as needed for pain (scale score 7-10) 14 December 25, 2022 December 31, 2022 12:00am January 01, 2023 12:04am 14 tabs (fourteen) Start: 10-05-2022 take 1 tablet by viola th every six hours Oxycodone-Acetaminophen (Percocet) 5-325 mg tablet Active 1 TABLET PO EVERY 6 HOURS 28 October 05, 2022 28 tabs (twenty-eight) Start: 06-02-2022 take 1 tablet by viola th every four hours Oxycodone-Acetaminophen (Percocet) 5-325 mg tablet Active 1 TABLET PO Q4H 40 June 02, 2022 40 tabs (forty) Start: 04-14-2022 take 1 tablet by viola th every four hours Oxycodone-Acetaminophen (Percocet) 5-325 mg tablet Active 1 TABLET PO Q4H 40 April 14, 2022 cetirizine hydrochloride 10 mg oral tablet (5 sources) Histamine-1 Receptor Antagonist Start: 03-05-2022 take 1 tablet by mouth once daily Cetirizine HCl - 10 MG Oral Tablet TAKE 1 TABLET DAILY DIRECTED. Quantity: 90 Refills: 3 Ordered: 05-Mar-2022 Amanda Osborne MD Start : 05-Mar-2022 Active clindamycin 300 mg oral capsule (9 sources) Lincosamide Antibacterial Start: 04-03-2024 End: 04-11-2024 take 1 capsule by mouth every eight hours Clindamycin Hcl 300 mg capsule Discontinued 300 mg PO Q8H 03 10April 03, 2024 1:00am April 11, 2024 4:08pm Start: 03-02-2022 Clindamycin HC l - 300 MG Oral Capsule Quantity: 30 [...] water. Comment on above: Finish all this medication unless otherw ise directed by prescriber.Medication should be taken with plenty of water. diazePAM 5 mg oral tablet (20 sources) Benzodiazepine Start: 12-27-19 End: 01-05-20 take 1 tablet by mouth every eight hours as needed diazePAM (Valium) 5 mg tablet Take 1 tablet (5 mg) by mouth every 8 hours if needed for muscle spasms. 12/26/2022 01/05/2024 Discontinued (Med List Cleanup) Start: 12-25-2022 End: 01-04-2024 take 1 tablet by mouth twice daily as needed for muscle spasms Diazepam (Valium) 5 mg tablet Discontinued 5 mg PO TWICE A DAY as needed for spasm December 25, 2022 12:00am January 04, 2024 8:23am Start: 10-05-2022 End: 01-13-2023 take 1 tablet by mouth four times daily as needed for muscle spasms Diazepam (Valium) 5 mg tablet Discontinued 5 mg PO 4 TIMES DAILY NEEDED as needed for spasms November 24, 2022 4:56pm January 13, 2023 11:38am 28 tabs (twenty-eight) Start: 06-02-2022 take 1 tablet by viola th three times daily Diazepam (Valium) 5 mg tablet Active 5 MG PO THREE TIMES A DAY 12 01June 02, 2022 12:00am 30 tabs (thirty) Start: 04-14-2022 take 1 tablet by viola th twice daily Diazepam (Valium) 5 mg tablet Active 5 MG PO TWICE A DAY 14 April 14, 2022 12:00am docusate sodium 100 mg oral capsule (11 sources) Start: 01-23-2023 End: 01-04-2024 take 1 capsule by mouth once daily as needed for constipation Docusate Sodium 100 mg Capsule Discontinued 100 mg PO DAILY NEEDED as needed for constipation January 23, 2023 3:18pm January 04, 2024 8:23am Start: 10-05-2022 End: 12-23-2022 take 1 capsule by mouth twice daily Docusate Sodium (Colace) 100 mg capsule Discontinued 100 mg PO TWICE A DAY October 05, 2022 12:00am December 23, 2022 1:14pm Start: 04-14-2022 take 1 capsule by mo [facility] once daily Docusate Sodium (Colace) 100 mg capsule Active 100 MG PO DAILY April 14, 2022 12:00am doxycycline hyclate 100 mg oral capsule (10 sources) Tetracycline-class Drug Start: 05-03-2024 End: 05-10-2024 take 1 capsule by mouth twice daily Doxycycline Hyclate 100 mg capsule Discontinued 100 mg PO TWICE A DAY 14 May 03, 2024 1:00am May 09, 2024 1:00am May 10, 2024 1:12am Start: 08-04-2023 End: 08-14-2023 take 1 tablet by mouth twice daily doxycycline (Adoxa) 100 mg tablet Indications: Cutaneous abscess of left axilla Take 1 tablet (100 mg) by mouth 2 times a day for 10 days. Take with a full glass of water and do not lie down for at least 30 minutes after 20 tablet 08/04/2023 08/14/2023 Active Start: 05-22-2022 End: 06-02-2022 take 1 capsule by mouth twice daily Doxycycline Hyclate 100 mg capsule Discontinued 100 mg PO TWICE A DAY May 22, 2022 1:00am June 02, 2022 3:38pm fluconazole 200 mg oral tablet (5 sources) Azole Antifungal Start: 07-29-2022 End: 10-23-2022 take 2 tablets by mouth once daily Fluconazole (Diflucan) 200 mg tablet Discontinued 400 mg PO DAILY 56 July 29, 2022 12:00am October 23, 2022 10:20am L.Acidoph,Saliva-B .Bif-S.Therm (Acidophilus Probiotic Blend) 175 mg capsule (10 sources) Start: 10-05-2022 End: 10-23-2022 take 1 capsule by mouth once daily L.Acidoph,Saliva-B. Bif-S.Therm (Acidophilus Probiotic Blend) 175 mg capsule Discontinued 1 NMA PO DAILY October 05, 2022 12:00am October 23, 2022 10:20am Start: 10-05-2022 End: 10-23-2022 take 1 capsule by mouth once daily L.Acidoph,Saliva-B.Bif-S.Therm (Acidophi heath Probiotic Blend) 175 mg capsule Discontinued 1 CAP PO DAILY October 04, 2022 11:00pm October 23, 2022 9:20am Start: 10-05-2022 End: 10-23-2022 take 1 capsule by mouth once daily L.Acidoph,Saliva-B.Bif-S.Therm (Acidophi heath Probiotic Blend) 175 mg capsule Discontinued 1 CAP PO DAILY October 05, 2022 12:00am October 23, 2022 10:20am Start: 10-05-2022 take 1 capsule by mouth once daily L.Acidoph,Saliva-B.Bif-S.Therm (Acidophi heath Probiotic Blend) 175 mg capsule Active 1 CAP PO DAILY October 05, 2022 12:00am Start: 06-02-2022 take 1 capsule by mouth once daily L.Acidoph,Saliva-B.Bif-S.Therm (Acidophi heath Probiotic Blend) 175 mg capsule Active 1 CAP PO DAILY June 02, 2022 12:00am Start: 04-14-2022 take 1 capsule by mouth once daily L.Acidoph,Saliva-B.Bif-S.Therm (Acidophi heath Probiotic Blend) 175 mg capsule Active 1 CAP PO DAILY April 14, 2022 12:00am levoFLOXacin 500 mg oral tablet (20 sources) Quinolone Antimicrobial Start: 01-23-2023 End: 01-05-2024 take 1 tablet by mouth once daily Levofloxacin 500 mg tablet Discontinued 500 mg PO DAILY March 02, 2023 1:00am March 26, 2023 11:19pm Start: 05-12-2022 End: 06-02-2022 take 1 tablet by mouth once daily Levofloxacin 500 mg tablet Discontinued 500 mg PO DAILY May 12, 2022 1:00am June 02, 2022 3:46pm lidocaine hydrochloride 20 mg/ml mucous membrane topical solution (6 sources) Antiarrhythmic, Amide Local Anesthetic Start: 03-02-2022 Lidocaine Viscous HCl - 2 % Mouth/Throat Solution Quantity: 200 Refills: 0 Ordered: 02-Mar-2022 DO Start : 02-Mar-2022 Active Start: 12-18-2022 Lidocaine Visc ous 2% mucous membrane solution ; Apply topically to affected area 3 times a day Quantity: 180 Refills: 0 Ordered: 02-Mar-2022 Fanny Mckeon Start: 02-Mar-2022 Generic Substitution Allowed linezolid 600 mg oral tablet (8 sources) Oxazolidinone Antibacterial Start: 10-05-2022 End: 11-13-2022 take 1 tablet by mouth every twelve hours Linezolid 600 mg tablet Discontinued 600 mg PO Q12H 24 November 01, 2022 9:25pm November 12, 2022 12:00am November 13, 2022 12:04am oxyCODONE hydrochloride 5 mg oral tablet (3 sources) Opioid Agonist Start: 04-03-2024 End: 05-03-2024 take 1 tablet by mouth every eight hours as needed for pain Oxycodone 5 mg tablet Discontinued 5 mg PO Q8H as needed for pain 02 10April 03, 2024 May 03, 2024 9:42am Start: 01-02-2019 End: 01-03-2019 take 1 tablet [...] Problem Classification Problem Date Documented Date Episodic/Chronic Acute posthemorrhagic anemia (20 sources) Anemia following acute postoperative blood loss; Translations: [Acute posthemorrhagic anemia] 04-12-2022 Episodic Allergic reactions (11 sources) Allergy status to penicillin; Translations: [Allergic condition] Onset: 03-10-2004-22-2021 Episodic Anxiety disorders (20 sources) Fear of getting cancer; Translations: [Other specified phobia] 01-11-2022 Chronic Bacterial infection; unspecified site (20 sources) Infection due to resistant bacteria; Translations: [Other bacterial infections of unspecified site] 05-16-2022 Episodic Comment on above: MRSE Cancer of cervix (6 sources) Low grade squamous intraepithelial lesion on cervical Papanicolaou smear; Translations: [Papanicolaou smear of cervix with low grade squamous intraepithelial lesion (LGSIL)] Episodic Cancer of other female genital organs (12 sources) Low grade squamous intraepithelial lesion on vaginal Papanicolaou smear; Translations: [Papanicolaou smear of vagina with low grade squamous intraepithelial lesion (LGSIL)] 02-24-2023 Episodic Chronic ulcer of skin (7 sources) Chronic ulcer of skin; Translations: [Non-pressure chronic ulcer of skin of other sites limited to breakdown of skin] Onset: 07-19-1905-23-2024 Chronic Complications of surgical procedures or medical care (20 sources) Non-healing surgical wound; Translations: [Other complications of procedures, not elsewhere classified, initial encounter] 05-28-2022 Episodic Comment on above: bilateral breast Tzo ne areas worse on the right Conditions associated with dizziness or vertigo (1 source) Dizziness and giddiness; Translations: [Dizziness and giddiness] Onset: 03-10-20 Episodic Deficiency and other anemia (5 sources) Anemia; Translations: [Anemia, unspecified] 07-03-2022 Episodic Deficiency and other anemia (4 sources) Anemia, unspecified; Translations: [Anemia, unspecified] 07-01-2022 Episodic Diseases of mouth; excluding dental (2 sources) Glossitis; Translations: [Other diseases of tongue] Onset: 03-02-20 Episodic Disorders of lipid metabolism (1 source) Pure hypercholesterolemia, unspecified; Translations: [Pure hypercholesterolemia, unspecified] Onset: 03-10-20 Chronic Esophageal disorders (5 sources) Gastroesophageal reflux disease without esophagitis; Translations: [Gastro-esophageal reflux disease without esophagitis] Onset: 01-05-2001-05-2024 Chronic Esophageal disorders (6 sources) Esophagitis; Translations: [Esophagitis, unspecified] 04-17-2023 Episodic Fever of unknown origin (1 source) Fever, unspecified; Translations: [Fever, unspecified] Onset: 03-10-20 Episodic Fluid and electrolyte disorders (3 sources) Hypokalemia; Translations: [Hypopotassemia] Onset: 03-10-2003-10-2022 Episodic Headache; including migraine (20 sources) Migraine; Translations: [Migraine, unspecified, without mention of intractable migraine without mention of status migrainosus] Onset: 01-05-2004-17-2023 Chronic Headache; including migraine (10 sources) Frequent headache; Translations: [Frequent headaches] 04-22-2021 Episodic Influenza (2 sources) Influenza 03-10-2022 Comment on above: FLU SYMPTOMS, SOB Menopausal disorders (20 sources) Menopausal symptom; Translations: [Symptomatic menopausal or female climacteric states] Chronic Mycoses (9 sources) Dermal mycosis; Translations: [Superficial mycosis, unspecified] 07-03-2022 Episodic Nausea and vomiting (20 sources) Postoperative nausea and vomiting; Translations: [Nausea with vomiting, unspecified] 04-14-2022 Episodic Open wounds of head; neck; and trunk (1 source) Unspecified open wound of right breast, initial encounter; Translations: [Unspecified open wound of right breast, initial encounter] Onset: 07-17-19 Episodic Other aftercare (15 sources) Surgical follow-up; Translations: [Follow-up examination, following surgery, unspecified] Episodic Other aftercare (1 source) Other halfway (current) drug therapy; Translations: [Other halfway (current) drug therapy] Onset: 03-10-20 Episodic Other connective tissue disease (1 source) Swelling of left lower limb; Translations: [Other specified soft tissue disorders] 04-17-2023 Episodic Other female genital disorders (14 [...] of breath; Translations: [Shortness of breath] Onset: 03-10-20 Episodic Other nervous system disorders (12 sources) Acute postoperative pain; Translations: [Other acute postprocedural pain] 04-14-2022 Episodic Other and delivery including normal (20 sources) Delivery normal; Translations: [Normal delivery] Episodic Comment on above: [id number]; Other screening for suspected conditions (not mental disorders or infectious disease) (20 sources) Patient encounter status; Translations: [Special screening for malignant neoplasms of vagina] Onset: 06-13-19 Episodic Other upper respiratory disease (1 source) Congestion of nasal sinus; Translations: [Nasal congestion] Episodic Other upper respiratory infections (8 sources) Acute maxillary sinusitis; Translations: [Acute maxillary sinusitis, unspecified] Onset: 03-16-19 Episodic Residual codes; unclassified (9 sources) History of bilateral breast implants; Translations: [Breast implant status] 04-16-2022 Chronic Comment on above: 1. Prophylactic mast ectomy right breast.2. Immediate right breast reconstruction with placement prepectoral cohesive gel implant (700 ml) and placement FlexHD acellular dermal matrix graft (23 x 26 cm) and mastopexy.3. Right nipple reconstruction with placement of free nipple graft.4. Prophylactic mastectomy left breast.5. Immediate left breast reconstruction with placement prepectoral cohesive gel implant (700 ml) and placement FlexHD acellular dermal matrix graft (23 x 26 cm) and mastopexy.6. Left nipple reconstruction with placement of free nipple graft - 04/11/22 Residual codes; unclassified (14 sources) Breast implant status; Translations: [Breast replacement] 05-13-2022 Chronic Residual codes; unclassified (20 sources) Finding of menstrual bleeding; Translations: [Other specified conditions influencing health status] Episodic Residual codes; unclassified (20 sources) Past history of procedure; Translations: [Other specified personal history presenting hazards to health] Episodic Comment on above: 06/09/2018; Residual codes; unclassified (18 sources) Genetic mutation; Translations: [Genetic susceptibility to other disease] 01-11-2022 Episodic Residual codes; unclassified (2 sources) Chills (without fever); Translations: [Chills (without fever)] Onset: 03-02-20 Episodic Residual codes; unclassified (20 sources) Prevention status; Translations: [Encounter for prophylactic removal of breast] 01-11-2022 Episodic Comment on above: planned prophylactic bilateral breast removal earlier in the 2021 Residual codes; unclassified (10 sources) Bilateral acquired absence of breast; Translations: [Acquired absence of bilateral breasts and nipples] 01-11-2022 Episodic Comment on above: planned acquired abs ence bilateral breasts and nipples Residual codes; unclassified (10 sources) Procedure related finding; Translations: [Encounter for cosmetic surgery] 01-11-2022 Episodic Residual codes; unclassified (10 sources) Family history of breast cancer; Translations: [Family history of malignant neoplasm of breast] 05-11-2021 Episodic Residual codes; unclassified (10 sources) Genetic susceptibility to cancer; Translations: [Genetic 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] 01-11-2022 Episodic Residual codes; unclassified (20 sources) Family history of malignant neoplasm of breast; Translations: [Family history of malignant neoplasm of breast] 01-09-2022 Episodic Residual codes; unclassified (20 sources) Genetic 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; Translations: [Genetic 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] 01-09-2022 Episodic Residual codes; unclassified (20 sources) Acquired absence of ovaries, bilateral; Translations: [Acquired absence of organ, genital organs] 01-09-2022 Episodic Residual codes; unclassified (20 sources) Genetic susceptibility to other disease; Translations: [Genetic susceptibility to other disease] 01-09-2022 Episodic Residual codes; unclassified (14 sources) Encounter for prophylactic removal of ovary(s); Translations: [Prophylactic ovary removal] 01-09-2022 Episodic Residual codes; unclassified (10 sources) History of breast reconstruction; Translations: [Other specified postprocedural states] 04-16-2022 Episodic Comment on above: 1. Prophylactic mast ectomy right breast.2. Immediate right breast reconstruction with placement prepectoral cohesive gel implant (700 ml) and placement FlexHD acellular dermal matrix graft (23 x 26 cm) and mastopexy.3. Right nipple reconstruction with placement of free nipple graft.4. Prophylactic mastectomy left breast.5. Immediate left breast reconstruction with placement prepectoral cohesive gel implant (700 ml) and placement FlexHD acellular dermal matrix graft (23 x 26 cm) and mastopexy.6. Left nipple reconstruction with placement of free nipple graft - 04/11/22 1. Prophylactic mast ectomy right breast.2. Immediate right breast reconstruction with placement prepectoral cohesive gel implant (700 ml) and placement FlexHD acellular dermal matrix graft (23 x 26 cm) and mastopexy.3. Right nipple reconstruction with placement of free nipple graft.4. Prophylactic mastectomy left breast.5. Immediate left breast reconstruction with placement prepectoral cohesive gel implant (700 ml) and placement FlexHD acellular dermal matrix graft (23 x 26 cm) and mastopexy.6. Left nipple reconstruction with placement of free nipple graft - . Bilateral MAKENNA flaps Mar 2024. Residual codes; unclassified (17 sources) Other specified postprocedural states; Translations: [Breast replacement] Onset: 05-04-1904-29-2022 Episodic Residual codes; unclassified (20 sources) History of bilateral breast reconstruction; Translations: [Other specified postprocedural states] 06-12-2022 Episodic Comment on above: left breast reconstr uction with removal of saline tissue marketing underwriter with replacement cohesive gel implant (630 ml) and placement of MTF FlexHD acellular dermal matrix graft, (Pliable Shaped Perforated, Large, Thick, 13x22 cm, 2 pieces) and revisionreconstructed left breast with superior capsulotomy and excision excess mastectomy skin contour deformity laterally and revision asymmetric inframammary fold with internal capsular plication and right breast reconstruction with removal of saline tissue marketing underwriter with replacement cohesive gel implant (630 ml) and placement of MTF FlexHD acellular dermal matrix graft, (Pliable Shaped Perforated, Large, Thick, 13x22 cm, 2 pieces) and revision reconstructed right breast with superior capsulotomy and excision excess mastectomy skin contour deformity laterally and revision asymmetric inframammary fold with internal capsular plication - . First stage revision right breast reconstruction with placement of submuscular saline tissue marketing underwriter (650 ml) and placement MTF FlexHD acellular dermal matrix graft (23 x 26 cm). 2. First stage revision left breast reconstruction with placement of submuscular saline tissue marketing underwriter (650 ml) and placement MTF FlexHD acellular dermal matrix graft (23 x 26 cm ) - 10/03/22Revision left breast reconstruction with excisional debridement nonhealing infected wound and removal exposed cohesive gel implant with capsulectomy and complex secondary wound closure and revision right breast reconstruction with excisional debridement nonhealing infected wound and removal cohesive gel implant with capsulectomy and complex secondary wound closure - 05/30/22 Residual codes; unclassified (13 sources) History of removal of breast implant; Translations: [Personal history of breast implant removal] 06-02-2022 Episodic Comment on above: 1. Revision left justice ast reconstruction with excisional debridement nonhealing infected wound and removal exposed cohesive gel implant with capsulectomy and complex secondary wound closure.2. Revision right breast reconstruction with excisional debridement nonhealing infected wound and removal cohesive gel implant with capsulectomy and complex secondary wound closure - 05/30/22 Residual codes; unclassified (20 sources) Personal history of breast implant removal; Translations: [Breast replacement] 06-02-2022 Episodic Residual codes; unclassified (14 sources) History of bilateral prophylactic mastectomy; Translations: [Acquired absence of bilateral breasts and nipples] Onset: 01-05-20 24 09-25-2022 Episodic Screening and history of mental health and substance abuse codes (20 sources) Ex-smoker; Translations: [Personal history of nicotine dependence] 05-11-2021 Episodic Skin and subcutaneous tissue infections (3 sources) Abscess of axilla; Translations: [Cutaneous abscess of left axilla] Onset: 08-04-19 24 08-04-2023 Episodic Unclassified (2 sources) SORE THROAT, [...] source) Acute cough; Translations: [Acute cough] Onset: 03-11-20 Unclassified (1 source) Cough, unspecified; Translations: [Cough, unspecified] Onset: 03-16-19 Unclassified (1 source) Contact with and (suspected) exposure to COVID-19; Translations: [Contact with and (suspected) exposure to COVID-19] Onset: 03-10-20 Unclassified (1 source) Esophagitis, unspecified without bleeding; Translations: [Esophagitis, unspecified without bleeding] Onset: 04-17-19 Viral infection (20 sources) Herpes simplex; Translations: [Herpes simplex without mention of complication] Onset: 03-10-2003-10-2022 Episodic Past or Other Problems Problem Classification Problem Date Documented Date Episodic/Chronic Complication of device; implant or graft (20 sources) Graft complications; Translations: [Other complications of skin graft (allograft) (autograft)] Onset: 05-04-2024 04-25-2022 Episodic Comment on above: right breast Nonmalignant breast conditions (20 sources) Pain of breast; Translations: [Mastodynia] Onset: 03-31-2024 05-11-2021 Episodic Comment on above: pseudoptosis excess mastectomy sk in contour deformity lateral aspects both breasts reconstruction planned disproportio n of reconstructed breasts Other connective tissue disease (2 sources) Other specified soft tissue disorders; Translations: [Other specified soft tissue disorders] Onset: 04-17-2023 Episodic Other upper respiratory disease (2 sources) Nasal congestion; Translations: [Nasal congestion] Onset: 03-16-2021 Episodic Residual codes; unclassified (20 sources) Acquired absence of bilateral breasts and nipples; Translations: [Acquired absence of breast and nipple] Onset: 05-04-2024 01-09-2022 Episodic Residual codes; unclassified (20 sources) Encounter for prophylactic removal of breast; Translations: [Prophylactic breast removal] Onset: 05-04-2024 01-09-2022 Episodic Unclassified (1 source) Acute cough; Translations: [Acute cough] Onset: 03-11-2022 Unclassified (1 source) Cough, unspecified; Translations: [Cough, unspecified] Onset: 03-16-2021 Unclassified (2 sources) Onset: 03-01-2024 03-01-2024 Unclassified (1 source) Esophagitis, unspecified without bleeding; Translations: [Esophagitis, unspecified without bleeding] Onset: 04-17-2023 Results Test Name Value Interpretation Reference Range Facility Plastic Surgery Visit Report on 07-28-2024 Plastic Surgery Visit Report [facility] [address], [address] [place] [address] OFFICE VISIT Date of Service: 07/28/24 MR#: [id number] Acct: [id number] Name: IRENE LOPEZ Rep #: [id number] : 1975 Provider: Dr. Marlon Allen MD Age/Sex: 48/F [place] [facility] [email or web address] Status: Signed Intake Vital Signs 05/16/24 10:22 07/28/24 15:03 Height 5 ft 5 in 5 ft 5 in BP 105/69 Blood Pressure Location Lt brachial Position Sitting Respiration 18 Pulse 96 Temp 97.8 F Temp Source Temporal Pulse Oximetry (%) 93 Oxygen Delivery Method room air Intake Visit Reasons: 3 W FU Chief Complaint: post op breast reconstruction f/u Is patient in pain?: No Allergies Penicillins (PCN) Allergy (Verified 07/28/24 15:04) Hives, RASH Medications ???Medication ???Instructions ???Recorded ???Confirmed ???Type ibuprofen 800 mg tablet 800 mg PO Q12H PRN PRN Migraine 07/07/24 History Held on 04/03/24. Headache Instructions: Resume on 04/11/24. omeprazole 40 mg capsule,delayed 40 mg PO DAILY gerd 03/28/2207/07 History release sumatriptan succinate 100 mg tablet 100 mg PO PRN PRN MIGRAINE 03/1607/07/24 History valacyclovir 500 mg tablet 500 mg PO DAILY PRN cold sores 07/07/24 History celecoxib 100 mg capsule (Celebrex) 100 mg PO BID 5 days #10 caps 0 04/03/24 07/28/24 Rx gabapentin 100 mg capsule 100 mg PO TID 5 days #15 caps 03/1607/28/24 Rx (Neurontin) ondansetron 4 mg disintegrating 4 mg PO Q8H PRN nausea and 5 07/28/24 Rx tablet vomiting #10 tabs silver sulfadiazine 1 % topical 1 applic topical BID #50 grams 07/28/24 Rx cream Nurse's Note: pt here follow up, wound looks great. Subjective Details: HPI Irene Lopez is a 47-year-old female that presents today for follow-up following her breast reconstruction with Dr. Barrett who is her plastic surgeon previously at our practice. Side of Diagnosis: Gene mutation, underwent prophylactic mastectomies and reconstruction (no history of chemo or radiation) Prior Abdominal Surgery: Hysterectomy (prophylactic related to the gene mutations, through a transverse Pfannenstiel incision) Bra Size: Would like to be at least a D cup. Feels like her breasts are currently too small. Per chart review, patient had had her last surgery with Dr. Barrett on 21 January 2023 where she underwent the fall: left breast reconstruction with removal of saline tissue expanders and placement of cohesive gel implant (630 ml) with MTF FlexHD acellular dermal matrix graft, (Pliable Shaped Perforated, Large, Thick, 13x22 cm, 2 pieces) and revision reconstructed left breast with superior capsulotomy and excision excess mastectomy skin contour deformity laterally and revision asymmetric inframammary fold with internal capsular plication and right breast reconstruction with removal of saline tissue marketing underwriter with replacement cohesive gel implant (630 ml) and placement of MTF FlexHD acellular dermal matrix graft, (Pliable Shaped Perforated, Large, Thick, 13x22 cm, 2 pieces) and revision reconstructed right breast with superior capsulotomy and excision excess mastectomy skin contour deformity laterally and revision asymmetric inframammary fold with internal capsular plication She has concerns about the shape of her breasts and she does not like where her nipples are located over the scar. She has noticed wrinkling of the implants on both sides, worse on the right. She would like to discuss options of fat grafting versus a bigger implant versus autologous reconstruction. Of note she wanted to keep her nipples through the reconstructive process but is now disappointed with the results of the nipples. She had wound healing problems on the nipples and there is significant scarring and total loss of projection. She had a total of 4 surgeries thus far for her breasts, including the following: (1) mastectomy with tissue marketing underwriter placement, (2) explantation of the tissue expanders from infection, (3) placement of new tissue expanders, (4)exchange for permanent implants. 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 She is overall healthy. She does not smoke. The patient reports that they do not have any personal or family history of bleeding or clotting disorders. She had 3 children through vaginal PROCEDURE Date of Procedure: 03/31/24 Pre-Operative Diagnosis: History of breast reconstruction with capsular contracture/pain Post-Operative Diagnosis: Same Surgery/Procedure Performed: 1. Removal of right partial submuscular breast implant and acellular dermal matrix with capsulectomy (CPT 84410) 2. Removal of left partial submuscular breast implant and acellular dermal matrix with ca (more content not included)... Normal [facility] Plastic Surgery Visit Report on 07-07-2024 Plastic Surgery Visit Report [facility] [address], [address] [place] [address] OFFICE VISIT Date of Service: 07/07/24 MR#: [id number] Acct: [id number] Name: IRENE LOPEZ Rep #: [id number] : 1975 Provider: Dr. Marlon Allen MD Age/Sex: 48/F Location: [facility] Status: Signed Intake Vital Signs 05/16/24 10:22 07/07/24 15:45 Height 5 ft 5 in BP 121/78 H Blood Pressure Location Rt brachial Position Sitting Respiration 18 Pulse 82 Pulse Source Monitor Pulse Oximetry (%) 94 Oxygen Delivery Method room air Intake Visit Reasons: FOLLOW UP Chief Complaint: post op breast reconstruction f/u Allergies Penicillins (PCN) Allergy (Verified 07/07/24 15:30) Hives, RASH Medications ???Medication ???Instructions ???Recorded ???Confirmed ???Type ibuprofen 800 mg tablet 800 mg PO Q12H PRN PRN Migraine 07/07/24 History Held on 04/03/24. Headache Instructions: Resume on 04/11/24. omeprazole 40 mg capsule,delayed 40 mg PO DAILY gerd 03/28/2207/07 History release sumatriptan succinate 100 mg tablet 100 mg PO PRN PRN MIGRAINE 03/1607/07/24 History valacyclovir 500 mg tablet 500 mg PO DAILY PRN cold sores 07/07/24 History celecoxib 100 mg capsule (Celebrex) 100 mg PO BID 5 days #10 caps 0 04/03/24 07/07/24 Rx gabapentin 100 mg capsule 100 mg PO TID 5 days #15 caps 03/1607/07/24 Rx (Neurontin) ondansetron 4 mg disintegrating 4 mg PO Q8H PRN nausea and 5 07/07/24 Rx tablet vomiting #10 tabs silver sulfadiazine 1 % topical 1 applic topical BID #50 grams 07/07/24 Rx cream PFSH Medical History Deformity of reconstructed breast GERD (gastroesophageal reflux disease) Resistance to other single specified antibiotic History of bilateral removal of breast implants Infection of breast implant Exposed breast implant Failed skin graft Failure of flap graft Methicillin resistant Staphylococcus epidermidis infection Nonhealing surgical wound PONV (postoperative nausea and vomiting) Cancer phobia Wears contact lenses Wears glasses Alcohol use Migraine headache Prophylactic ovary removal Prophylactic breast removal 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 Genetic 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 Cancer phobia Monoallelic mutation of DEISY gene Family history of breast cancer Former smoker Ptosis of both breasts Pneumonia Frequent headaches Allergies Surgical History (Updated 07/07/24 @ 18:[address] Marlon Allen MD) Hx of breast reconstruction History of prophylactic mastectomy of both breasts Status post implant removal from both breasts History of reconstruction of both breasts Hx of bilateral mastectomy History of placement of ear tubes History of bilateral breast implants Status post bilateral breast reconstruction Status post bilateral mastectomy History of bilateral oophorectomy History of bladder surgery History of hysterectomy Family History Grandmother Breast cancer Aunt Breast cancer Father Diabetes Social History Smoking Status: Former smoker alcohol intake: current substance use type: does not use additional social history: Does Not Take Aspirin Does Take Ibuprofen As Needed HPI FOLLOW UP Details: BOB Irene Lopez is a 47-year-old female that presents today for follow-up following her breast reconstruction with Dr. Barrett who is her plastic surgeon previously at our practice. Side of Diagnosis: Gene mutation, underwent prophylactic mastectomies and reconstruction (no history of chemo or radiation) Prior Abdominal Surgery: Hysterectomy (prophylactic related to the gene mutations, through a transverse Pfannenstiel incision) Bra Size: Would like to be at least a D cup. Feels like her breasts are currently too small. Per chart review, patient had had her last surgery with Dr. Barrett on 21 January 2023 where she underwent the fall: left breast reconstruction with removal of saline tissue expanders and placement of cohesive gel implant (630 ml) with MTF FlexHD acellular dermal matrix graft, (Pliable Shaped Perforated, Large, Thick, 13x22 cm, 2 pieces) and revision reconstructed left breast with superior capsulotomy and excision excess mastectomy skin contour deformity laterally and revision asymmetric inframammary fold with internal capsular plication and right breast reconstruction with removal of saline tissue marketing underwriter with replacement cohesive gel implant (630 ml) and placement of MTF FlexHD acellular dermal matrix graft, (Pliable Shaped Perforate (more content not included)... Normal [facility] History AND Physic damien 05-16-2024 Wound Ctr History & Physical [facility] [address] [place] [address] H P Exam - Wound Care 05/16/24 1320 MR#: [id number] Acct: [id number] Name: IRENE LOPEZ Rep #: [id number] : 1975 48 From: Marlon Allen MD PCP: Dr. Amanda Osborne MD Status:REG RCR Location: History of Present Illness Date of Service: 05/16/24 History of Wound: Patient underwent MAKENNA flaps for bilateral breast reconstruction on 31 Mar 2024. There is an upper pole right breast wound that contained some fat necrosis from thin mastectomy flap dissection during capsulectomy/preparation for the flaps. There is healthy granulation tissue over the flap at the base of the wound. Also has had some small wounds on the medial aspect of her donor site, all of which are being treated with mepilex Ag. CURRENT ENCOUTNER, 16 May 2024: Less drainage today. No fevers chills. Doing well with wound care. 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 Headache Instructions: Resume on 04/11/24. omeprazole 40 mg capsule,delayed 40 mg PO DAILY gerd 03/28/2203/31 04:00 History release sumatriptan succinate 100 mg tablet 100 mg PO PRN PRN MIGRAINE 03/16 06/05 Unknown History valacyclovir 500 mg tablet 500 mg PO DAILY PRN cold sores 03/30/24 06:30 History celecoxib 100 mg capsule (Celebrex) 100 mg PO BID 5 days #10 caps 0 04/03/24 Unknown Rx gabapentin 100 mg capsule 100 mg PO TID 5 days #15 caps 03/16 12/08 Unknown Rx (Neurontin) ondansetron 4 mg disintegrating 4 mg PO Q8H PRN nausea and 5 Unknown Rx tablet vomiting #10 tabs silver sulfadiazine 1 % topical 1 applic topical BID #50 grams Unknown Rx cream Allergy/AdvReac Type Severity Reaction Status Date / Time Penicillins (PCN) Allergy Hives, RASH Verified 05/16/24 10:37 Family History Grandmother Breast cancer Aunt Breast cancer Father Diabetes Surgical History Hx of breast reconstruction History of prophylactic mastectomy of both breasts Status post implant removal from both breasts History of reconstruction of both breasts Hx of bilateral mastectomy History of placement of ear tubes History of bilateral breast implants Status post bilateral breast reconstruction Status post bilateral mastectomy History of bilateral oophorectomy History of bladder surgery History of hysterectomy Social History Smoking Status: Former smoker alcohol intake: current substance use type: does not use additional social history: Does Not Take Aspirin Does Take Ibuprofen As Needed Vital Signs Vital Signs Vital Signs: 05/16/24 10:22 Temperature 97.1 F L Temperature Source Temporal Pulse Rate 78 Respiratory Rate 18 Blood Pressure 159/75 H Blood Pressure Mean 103 Blood Pressure Source Monitor Blood Pressure Position Sitting Blood Pressure Location Right Arm Oxygen Delivery Method Room Air Weight Weight: 172 lb Body Mass Index (BMI) 28.6 Physical Exam Narrative Right breast wound healing well, granulating. No drainage. Central abdomen with some spitting suture (N sorb) which were removed and the wound cleaned with curette (1 x 0.5 cm). The umbilicus is granulating and healing well. Debridement Note Debridement Note Wound debrided: Central abdomen from donor site Wound Grade/Stage: 3 Type of Debridement: Excisional debridement Anesthesia Used: 4% Lidocaine Solution Depth: in the subcutaneous layer Percentage of wound debrided: 100 Instrument Used: 3mm curette Severity: Fat Layer Expos (more content not included)... Normal [facility] Visit Report on 05-10-2024 Plastic Surgery Visit Report [facility] [address], [address] [place] [address] OFFICE VISIT Date of Service: 05/10/24 MR#: [id number] Acct: [id number] Name: IRENE LOPEZ Rep #: [id number] : 1975 Provider: FLETCHER vázquez Age/Sex: 48/F [place] [facility] [place] Status: Signed I have personally performed a face to face assessment of the patient and have reviewed the UDAY Note. Intake Vital Signs 3 05/02/24 08:22 05/10/24 15:28 Height 5 ft 5 in 5 ft 5 in BP 157/76 H Blood Pressure Location Rt brachial Position Sitting Respiration 18 Pulse 82 Temp 98.3 F Temp Source Oral Pulse Oximetry (%) 97 Oxygen Delivery Method room air Intake Visit Reasons: 1 W FU Chief Complaint: post op breast reconstruction f/u Is patient in pain?: No Allergies Penicillins (PCN) Allergy (Verified 05/10/24 15:29) Hives, RASH Medications 3 ???Medication ???Instructions ???Recorded ???Confirmed ???Type ibuprofen 800 mg tablet 800 mg PO Q12H PRN PRN Migraine 05/10/24 History Held on 04/03/24. Headache Instructions: Resume on 04/11/24. omeprazole 40 mg capsule,delayed 40 mg PO DAILY gerd 03/28/2205/10 History release sumatriptan succinate 100 mg tablet 100 mg PO PRN PRN MIGRAINE 03/1605/10/24 History valacyclovir 500 mg tablet 500 mg PO DAILY PRN cold sores 05/10/24 History celecoxib 100 mg capsule (Celebrex) 100 mg PO BID 5 days #10 caps 0 04/03/24 05/10/24 Rx gabapentin 100 mg capsule 100 mg PO TID 5 days #15 caps 03/1605/10/24 Rx (Neurontin) ondansetron 4 mg disintegrating 4 mg PO Q8H PRN nausea and 5 05/10/24 Rx tablet vomiting #10 tabs silver sulfadiazine 1 % topical 1 applic topical BID #50 grams 05/10/24 Rx cream Nurse's Note: pt here for post op, still having drainage at wound right upper breast area Subjective Details: Patient is doing ok. She denies any fever, chills, nausea, vomiting, or any other signs of infection. She states that the right breast wound care causes her some stress but she is doing ok with the dressing changes. Left wrist pain has improved with splinting at night. Objective Details: Right upper pole wound with drainage. No signs of infection. Granulation tissue is starting to form in the wound with the Aquacel-Ag dressing changes. Flap skin paddles are warm and well perfused. No congestion. Umbilical wound is healing well. No necrosis present. Lower abdominal incision with some dry scabbing present. Stable in appearance. No erythema. No drainage. No signs of infection. Right breast, upper pole wound. Granulation tissue present. Coding Level of Care Code Global Post Op Diagnoses Fat necrosis (segmental) of breast N64.1 Seroma History of reconstruction of both breasts Z98.890 Status post implant removal from both breasts Z98.86 History of prophylactic mastectomy of both breasts Z90.13 [facility] Medical History Deformity of reconstructed breast GERD (gastroesophageal reflux disease) Resistance to other single specified antibiotic History of bilateral removal of breast implants Infection of breast implant Exposed breast implant Failed skin graft Failure of flap graft Methicillin resistant Staphylococcus epidermidis infection Nonhealing surgical wound PONV (postoperative nausea and vomiting) Cancer phobia Wears contact lenses Wears glasses Alcohol use Migraine headache Prophylactic ovary removal Prophylactic breast removal 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 Genetic 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 Cancer phobia Monoallelic mutation of DEISY gene Family history of breast cancer Former smoker Ptosis of both breasts Pneumonia Frequent headaches Allergies Surgical History Hx of breast reconstruction History of prophylactic mastectomy of both breasts Status post implant removal from both breasts History of reconstruction of both breasts Hx of bilateral mastectomy History of placement of ear tubes History of bilateral breast implants Status post bilateral breast reconstruction Status post bilateral mastectomy History of bilateral oophorectomy History of bladder surgery History of hysterectomy Family History Grandmother Breast cancer Aunt Breast cancer Father Diabetes Social History Smoking Status: Former smoker alcohol intake: current substance use type: does not use additional social history: Does Not Take Aspirin Does Take Ibuprofen As Needed Assessment (more content not included)... Normal [facility] Visit Report on 05-06-2024 Plastic Surgery Visit Report [facility] [address], [address] [place] [address] OFFICE VISIT Date of Service: 05/06/24 MR#: [id number] Acct: [id number] Name: ETELVINAIRENE KUHN DOMO Rep #: [id number] : 1975 Provider: Dr. Marlon Allen MD Age/Sex: 48/F [place] [facility] Status: Signed with Addenda ADDENDUM by Dr. Marlon Allen MD on 05/06/24 at 1604 Assessment and Plan (No Qualifiers) Assessment and Plan (1) Fat necrosis (segmental) of breast: Status: Acute Plan: 05/06/24 1604 Date Marlon Allen MD cc: * Signed Intake Vital Signs 3 04/19/24 16:05 05/02/24 08:22 05/06/24 14:36 Height 5 ft 5 in 5 ft 5 in BP 148/82 H Blood Pressure Location Rt brachial Position Sitting Respiration 18 Pulse 100 Pulse Source Monitor Pulse Oximetry (%) 94 Oxygen Delivery Method room air Intake Visit Reasons: 1 W FU Chief Complaint: post op breast reconstruction f/u Is patient in pain?: No Allergies Penicillins (PCN) Allergy (Verified 05/06/24 14:36) Hives, RASH Medications 3 ???Medication ???Instructions ???Recorded ???Confirmed ???Type ibuprofen 800 mg tablet 800 mg PO Q12H PRN PRN Migraine 05/06/24 History Held on 04/03/24. Headache Instructions: Resume on 04/11/24. omeprazole 40 mg capsule,delayed 40 mg PO DAILY gerd 03/28/2205/06 History release sumatriptan succinate 100 mg tablet 100 mg PO PRN PRN MIGRAINE 03/1605/06/24 History valacyclovir 500 mg tablet 500 mg PO DAILY PRN cold sores 05/06/24 History celecoxib 100 mg capsule (Celebrex) 100 mg PO BID 5 days #10 caps 0 04/03/24 05/06/24 Rx gabapentin 100 mg capsule 100 mg PO TID 5 days #15 caps 03/1605/06/24 Rx (Neurontin) ondansetron 4 mg disintegrating 4 mg PO Q8H PRN nausea and 5 05/06/24 Rx tablet vomiting #10 tabs silver sulfadiazine 1 % topical 1 applic topical BID #50 grams 05/06/24 Rx cream doxycycline hyclate 100 mg capsule 100 mg PO BID 7 days #14 caps 05/06/24 Rx Subjective Details: Doing well with wound care. No drainage since Thursday. CT much better with the left wrist bracing at night. Objective Details: CHEST: Female prosthodontist present for my exam Right upper pole scar with small hole with above noted drainage. No signs of infection. Flap skin paddles are warm and well perfused. No congestion. Good Doppler signals bilaterally over the paddle. Abdomen: Umbilicus scaring in, no further eschar. Necrosis was partial thickness. Healing. Coding Level of Care Code Global Post Op Diagnoses Fat necrosis (segmental) of breast N64.1 [facility] Medical History Deformity of reconstructed breast GERD (gastroesophageal reflux disease) Resistance to other single specified antibiotic History of bilateral removal of breast implants Infection of breast implant Exposed breast implant Failed skin graft Failure of flap graft Methicillin resistant Staphylococcus epidermidis infection Nonhealing surgical wound PONV (postoperative nausea and vomiting) Cancer phobia Wears contact lenses Wears glasses Alcohol use Migraine headache Prophylactic ovary removal Prophylactic breast removal 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 Genetic 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 Cancer phobia Monoallelic mutation of DEISY gene Family history of breast cancer Former smoker Ptosis of both breasts Pneumonia Frequent headaches Allergies Surgical History Hx of breast reconstruction History of prophylactic mastectomy of both breasts Status post implant removal from both breasts History of reconstruction of both breasts Hx of bilateral mastectomy History of placement of ear tubes History of bilateral breast implants Status post bilateral breast reconstruction Status post bilateral mastectomy History of bilateral oophorectomy History of bladder surgery History of hysterectomy Family History Grandmother Breast cancer Aunt Breast cancer Father Diabetes Social History Smoking Status: Former smoker alcohol intake: current substance use type: does not use additional social history: Does Not Take Aspirin Does Take Ibuprofen As Needed Assessment and Plan (No Qualifiers) Assessment and Plan (1) Fat necrosis (segmental) of breast: Status: Acute Plan: Continue dressing changes We are going to switch to Aquacel Ag daily to the wound. Given strict return precautions. She has my roberta (more content not included)... Normal [facility] Visit Report on 05-02-2024 Plastic Surgery Visit Report [facility] [address], [address] [place], [place] [address] OFFICE VISIT Date of Service: 05/03/24 MR#: [id number] Acct: [id number] Name: IRENE LOPEZ Rep #: [id number] : 1975 Provider: Dr. Marlon Allen MD Age/Sex: 48/F Location: [facility] Status: Signed with Addenda ADDENDUM by Dr. Marlon Allen MD on 05/03/24 at 0939 Assessment and Plan (No Qualifiers) Assessment and Plan (1) Seroma: Status: Acute (2) Fat necrosis (segmental) of breast: Status: Acute Plan Of note carpal tunnel symptoms have vastly improved with splinting. I offered her EMG studies and she does not want them at this time (like to focus on continuing to heal her reconstruction, and reports that it is improved enough with the bracing and her numbness and tingling are gone during the day). 05/03/24 0939 Date Marlon Allen MD cc: * Signed Intake Vital Signs 3 04/19/24 16:05 05/02/24 08:22 Height 5 ft 5 in 5 ft 5 in BP 144/78 H Blood Pressure Location Lt brachial Position Sitting Respiration 18 Pulse 86 Temp 98.5 F Temp Source Oral Pulse Oximetry (%) 94 Oxygen Delivery Method room air Intake Visit Reasons: INCISION CHECK Chief Complaint: post op breast reconstruction f/u Is patient in pain?: No Allergies Penicillins (PCN) Allergy (Verified 05/03/24 08:42) Hives, RASH Medications 3 ???Medication ???Instructions ???Recorded ???Confirmed ???Type ibuprofen 800 mg tablet 800 mg PO Q12H PRN PRN Migraine 05/03/24 History Held on 04/03/24. Headache Instructions: Resume on 04/11/24. omeprazole 40 mg capsule,delayed 40 mg PO DAILY gerd 03/28/2205/03 History release sumatriptan succinate 100 mg tablet 100 mg PO PRN PRN MIGRAINE 03/1605/03/24 History valacyclovir 500 mg tablet 500 mg PO DAILY PRN cold sores 05/03/24 History celecoxib 100 mg capsule (Celebrex) 100 mg PO BID 5 days #10 caps 0 04/03/24 05/03/24 Rx gabapentin 100 mg capsule 100 mg PO TID 5 days #15 caps 03/1605/03/24 Rx (Neurontin) ondansetron 4 mg disintegrating 4 mg PO Q8H PRN nausea and 5 05/03/24 Rx tablet vomiting #10 tabs silver sulfadiazine 1 % topical 1 applic topical BID #50 grams 05/03/24 Rx cream Subjective Details: Here today because some drainage from the right upper pole of the breast from previous scar from button holed skin. I was in contact with the patient over the weekend when some fluid drained (it was brown/dark and appeared to be seroma fluid). Fluid today is yellow/slightly opaque. The residual fluid was expressed today in clinic. Objective Details: CHEST: Female prosthodontist present for my exam Right upper pole scar with small pin hole with above noted drainage. No signs of infection. Flap skin paddles are warm and well perfused. No congestion. Good Doppler signals bilaterally over the paddle. Abdomen: Umbilicus scaring in, no further eschar. Necrosis was partial thickness. Healing. Coding Level of Care Code Global Post Op Diagnoses Seroma Fat necrosis (segmental) of breast N64.1 [facility] Medical History Deformity of reconstructed breast GERD (gastroesophageal reflux disease) Resistance to other single specified antibiotic History of bilateral removal of breast implants Infection of breast implant Exposed breast implant Failed skin graft Failure of flap graft Methicillin resistant Staphylococcus epidermidis infection Nonhealing surgical wound PONV (postoperative nausea and vomiting) Cancer phobia Wears contact lenses Wears glasses Alcohol use Migraine headache Prophylactic ovary removal Prophylactic breast removal 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 Genetic 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 Cancer phobia Monoallelic mutation of DEISY gene Family history of breast cancer Former smoker Ptosis of both breasts Pneumonia Frequent headaches Allergies Surgical History Hx of breast reconstruction History of prophylactic mastectomy of both breasts Status post implant removal from both breasts History of reconstruction of both breasts Hx of bilateral mastectomy History of placement of ear tubes History of bilateral breast implants Status post bilateral breast reconstruction Status post bilateral mastectomy History of bilateral oophorectomy History of bladder surgery History of hysterectomy Family History Grandmother Breast cancer Aunt Breast cancer Father Diabetes Social Histo (more content not included)... Normal [facility] Visit Report on 04-26-2024 Plastic Surgery Visit Report [facility] [address], [address] [place] [address] OFFICE VISIT Date of Service: 04/26/24 MR#: [id number] Acct: [id number] Name: IRENE LOPEZ Rep #: [id number] : 1975 Provider: FLETCHER vázquez Age/Sex: 48/F [place] [facility] [place] Status: Signed I have personally performed a face to face assessment of the patient and have reviewed the UDAY Note. Intake Vital Signs 04/19/24 16:05 04/26/24 14:59 Height 5 ft 5 in BP 144/78 H 126/77 H Blood Pressure Location Lt brachial Rt brachial Position Sitting Sitting Respiration 18 18 Pulse 86 73 Pulse Source Monitor Temp 98.5 F 98.3 F Temp Source Oral Oral Pulse Oximetry (%) 94 94 Oxygen Delivery Method room air room air Intake Visit Reasons: postop surgery 04/01/24 Chief Complaint: post op breast reconstruction Is patient in pain?: No Allergies Penicillins (PCN) Allergy (Verified 04/26/24 14:59) Hives, RASH Medications ???Medication ???Instructions ???Recorded ???Confirmed ???Type ibuprofen 800 mg tablet 800 mg PO Q12H PRN PRN Migraine 04/26/24 History Held on 04/03/24. Headache Instructions: Resume on 04/11/24. omeprazole 40 mg capsule,delayed 40 mg PO DAILY gerd 03/28/2204/26 History release sumatriptan succinate 100 mg tablet 100 mg PO PRN PRN MIGRAINE 03/1604/26/24 History valacyclovir 500 mg tablet 500 mg PO DAILY PRN cold sores 04/26/24 History celecoxib 100 mg capsule (Celebrex) 100 mg PO BID 5 days #10 caps 0 04/03/24 04/26/24 Rx gabapentin 100 mg capsule 100 mg PO TID 5 days #15 caps 03/1604/26/24 Rx (Neurontin) ondansetron 4 mg disintegrating 4 mg PO Q8H PRN nausea and 5 04/26/24 Rx tablet vomiting #10 tabs oxycodone 5 mg tablet 5 mg PO Q8H PRN pain 7 days #20 04/26/24 Rx tabs silver sulfadiazine 1 % topical 1 applic topical BID #50 grams 04/26/24 Rx cream Subjective Details: Patient states she is feeling well. She has been wearing a carpal tunnel wrist splint on her left wrist and states she has noticed a significant improvement in the discomfort she has been feeling. She denies any issues with her dressing changes. She states that some of the Prineo tape has pealed off on her abdomen. Objective Details: Breast flaps are warm and well-perfused and are soft. No signs of any tissue loss or ischemia. Healing well. The medial right breast incision where she has been placing Silvadene cream is smaller and improving in appearance. It no longer is moist. No erythema or drainage noted. Umbilicus with some superficial, dry necrosis. Excised a little bit of the eschar today and there is healthy umbilicus beneath the eschar. Lower abdominal incision is dry and intact and healing nicely. She still has some Prineo tape in place on the left part of the incision, the rest of it has peeled off. She has some dry scabbing on the central portion of the abdominal incision that is intact. No erythema. No moisture or drainage present. Her abdomen is nice and soft. No signs of seroma. Coding Level of Care Code Global Post Op Diagnoses History of reconstruction of both breasts Z98.890 [facility] Medical History Deformity of reconstructed breast GERD (gastroesophageal reflux disease) Resistance to other single specified antibiotic History of bilateral removal of breast implants Infection of breast implant Exposed breast implant Failed skin graft Failure of flap graft Methicillin resistant Staphylococcus epidermidis infection Nonhealing surgical wound PONV (postoperative nausea and vomiting) Cancer phobia Wears contact lenses Wears glasses Alcohol use Migraine headache Prophylactic ovary removal Prophylactic breast removal 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 Genetic 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 Cancer phobia Monoallelic mutation of DEISY gene Family history of breast cancer Former smoker Ptosis of both breasts Pneumonia Frequent headaches Allergies Surgical History Hx of breast reconstruction History of prophylactic mastectomy of both breasts Status post implant removal from both breasts History of reconstruction of both breasts Hx of bilateral mastectomy History of placement of ear tubes History of bilateral breast implants Status post bilateral breast reconstruction Status post bilateral mastectomy History of bilateral oophorectomy History of bladder surgery History of hysterectomy Family History Grandmother Breast cancer Aunt Breast c (more content not included)... Normal [facility] Visit Report on 04-19-2024 Plastic Surgery Visit Report [facility] [address], [address] [place] [address] OFFICE VISIT Date of Service: 04/19/24 MR#: [id number] Acct: [id number] Name: IRENE LOPEZ Rep #: [id number] : 1975 Provider: FLETCHER vázquez Age/Sex: 48/F [place] [facility] [place] Status: Signed Pt seen evaluated w/UDAY. I personally interviewed exam the pt. I was involved in all aspects of pt's orders, interpretation of results treatment. Breast flaps are warm and well-perfused and are soft. No signs of any tissue loss or ischemia. Healing well. Umbilicus with some superficial necrosis that continues to demarcate and slough off. Patient should continue local wound care with silver sulfadiazine. I excised a little bit of the eschar in clinic today and there is healthy umbilicus beneath the eschar. Anticipate the umbilicus scarring and healing. Final abdominal drain removed today. No signs of any fluid collections. Patient can planing of persistent left hand carpal tunnel symptoms since the surgery, with numbness and tingling worse on the radial 3 digits near the fingertips. She has no other signs of upper extremity neuropathy, and her motor function is completely intact including the thenar eminence. During the case her wrist was in a neutral, safe position and appropriately padded. She did have an infiltrated dorsal hand IV with significant swelling, and there is still some bruising on the dorsum of her hand. I talked her about the possibility that she had underlying carpal tunnel and this was exacerbated by the swelling from fluids given during the surgery as well as the IV infiltrate. She reports that the tingling is getting better. We will continue to monitor but in the meantime I will have her wear a carpal tunnel splint and attempt a course of NSAIDs. Follow-up with me in 1 week or earlier as needed. Intake Vital Signs 04/11/24 15:07 04/19/24 16:05 Height 5 ft 5 in 5 ft 5 in BP 144/79 H 144/78 H Blood Pressure Location Rt brachial Lt brachial Position Sitting Sitting Respiration 18 18 Pulse 75 86 Temp 98.5 F 98.5 F Temp Source Oral Oral Pulse Oximetry (%) 91 94 Oxygen Delivery Method room air room air Intake Visit Reasons: 1 W F/U Chief Complaint: post op breast reconstruction Accompanied by: Is patient in pain?: Yes (hand numb) Allergies Penicillins (PCN) Allergy (Verified 04/19/24 16:06) Hives, RASH Medications ???Medication ???Instructions ???Recorded ???Confirmed ???Type ibuprofen 800 mg tablet 800 mg PO Q12H PRN PRN Migraine 04/19/24 History Held on 04/03/24. Headache Instructions: Resume on 04/11/24. omeprazole 40 mg capsule,delayed 40 mg PO DAILY gerd 03/28/2204/19 History release sumatriptan succinate 100 mg tablet 100 mg PO PRN PRN MIGRAINE 03/1604/19/24 History valacyclovir 500 mg tablet 500 mg PO DAILY PRN cold sores 04/19/24 History celecoxib 100 mg capsule (Celebrex) 100 mg PO BID 5 days #10 caps 0 04/03/24 04/19/24 Rx gabapentin 100 mg capsule 100 mg PO TID 5 days #15 caps 03/1604/19/24 Rx (Neurontin) ondansetron 4 mg disintegrating 4 mg PO Q8H PRN nausea and 5 04/19/24 Rx tablet vomiting #10 tabs oxycodone 5 mg tablet 5 mg PO Q8H PRN pain 7 days #20 04/19/24 Rx tabs silver sulfadiazine 1 % topical 1 applic topical BID #50 grams 04/19/24 Rx cream Nurse's Note: pt here post breast reconstruction, hand still numb and tingly Subjective Details: Patient is doing well. She is not having any complaints about her incisions. She states she is having about 5-7 ml drainage from the remaining abdominal drain. She continues to have numbness and tingling of left thumb, index finger and long finger distal to where she had an IV infiltrate after surgery. She states that warm compresses help with the discomfort. Objective Details: Bilateral breast incision flaps an pink with capillary refill <2 seconds. Incision are dry and intact. On the right medial breast incision, most medial portion, there is a scant amount of moisture. Lower abdominal incision intact. She still has prineo tape on the later portions of incision bilaterally. There is dry scabbing on the medial portion of the incision. Remaining drain with small amount of serous drainage. Drain was easily removed. Umbilicus with less scabbing. There is an improvement in the overall appearance. There is healthy tissue present on the left side of the umbilicus. Coding Level of Care Code Global Post Op Diagnoses History of reconstruction of both breasts Z98.890 [facility] Medical History (Reviewed 04/19/24 @ 16:44 by Rachel Beard BUILDING MAINTENANCE CUSTODIAN, BUILDING MAINTENANCE CUSTODIAN-C) Deformity of reconstructed breast GERD (gastroeso (more content not included)... Normal [facility] Plastic Surgery Visit Report on 04-11-2024 Plastic Surgery Visit Report [facility] [address], [address] [place] [address] OFFICE VISIT Date of Service: 04/11/24 MR#: [id number] Acct: [id number] Name: IRENE LOPEZ Rep #: [id number] : 1975 Provider: FLETCHER vázquez Age/Sex: 48/F Location: [facility] Status: Signed Pt seen evaluated w/UDAY. I personally interviewed exam the pt. I was involved in all aspects of pt's orders, interpretation of results treatment Flaps warm with good blood supply and color, and they are soft. Her umbilicus has some partial-thickness necrosis that is begining to slough off with twice daily SSD and gauze changes. I will continue to monitor this problem closely. Patient happy thus far overall. One drain left. Plan to follow up with me on Thursday for possible drain removal and for a wound check. Intake Vital Signs 3 04/07/24 11:07 04/11/24 15:07 Height 5 ft 5 in 5 ft 5 in BP 125/85 H 144/79 H Blood Pressure Location Rt brachial Rt brachial Position Sitting Sitting Respiration 18 18 Pulse 80 75 Pulse Source Monitor Temp 98.1 F 98.5 F Temp Source Oral Oral Pulse Oximetry (%) 91 91 Oxygen Delivery Method room air room air Intake Visit Reasons: postop surgery 04/01/24 Chief Complaint: post op breast reconstruction Is patient in pain?: No (hand still feeling numb) Allergies Penicillins (PCN) Allergy (Verified 04/11/24 15:08) Hives, RASH Medications 3 ???Medication ???Instructions ???Recorded ???Confirmed ???Type ibuprofen 800 mg tablet 800 mg PO Q12H PRN PRN Migraine 03/28/22 04/11/24 History Headache omeprazole 40 mg capsule,delayed 40 mg PO DAILY gerd 03/28/22 04/11/24 History release sumatriptan succinate 100 mg tablet 100 mg PO PRN PRN MIGRAINE 03/28/22 04/11/24 History valacyclovir 500 mg tablet 500 mg PO DAILY PRN cold sores 03/28/22 04/11/24 History celecoxib 100 mg capsule (Celebrex) 100 mg PO BID 5 days #10 caps 04/03/24 04/11/24 Rx gabapentin 100 mg capsule 100 mg PO TID 5 days #15 caps 04/03/24 04/11/24 Rx (Neurontin) ondansetron 4 mg disintegrating 4 mg PO Q8H PRN nausea and 04/03/24 04/11/24 Rx tablet vomiting #10 tabs oxycodone 5 mg tablet 5 mg PO Q8H PRN pain 7 days #20 04/03/24 04/11/24 Rx tabs silver sulfadiazine 1 % topical 1 applic topical BID #50 grams 04/03/24 04/11/24 Rx cream Nurse's Note: pt here post op , no pain, still numbness in left hand Subjective Details: Patient states that she is doing well. She is having minimal discomfort. She denies any issues with drainage from any of her incisions. She has been keeping track of her her RODOLFO drainage amounts (1-3 ml on right breast, 2-5 ml on left breast, abdominal drains combined draining 10-20 ml. She continues to have some numbness and tingling in her left hand, especially in her thumb, index and long fingers. 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 Objective Details: Breast incisions dry and intact. Lower abdominal incision dry and intact with prineo dressing is in place. Breast flap sites pink with capillary refill < 2 seconds. Removed right breast, left breast and right abdominal drains with no issues. Umbilicus with small amount of drainage. Less non viable tissue present today and pink tissue present. Coding Level of Care Code Global Post Op Diagnoses History of reconstruction of both breasts Z98.890 [facility] Medical History (Reviewed 04/12/24 @ 10:06 by Rachel Beard BUILDING MAINTENANCE CUSTODIAN, BUILDING MAINTENANCE CUSTODIAN-C) Deformity of reconstructed breast GERD (gastroesophageal reflux disease) Resistance to other single specified antibiotic History of bilateral removal of breast implants Infection of breast implant Exposed breast implant Failed skin graft Failure of flap graft Methicillin resistant Staphylococcus epidermidis infection Nonhealing surgical wound PONV (postoperative nausea and vomiting) Cancer phobia Wears contact lenses Wears glasses Alcohol use Migraine headache Prophylactic ovary removal Prophylactic breast removal 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 Genetic 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 Cancer phobia Monoallelic mutation of DEISY gene Family history of breast cancer Former smoker Ptosis of both breasts Pneumonia Frequent headaches Allergies Surgical History (Reviewed 04/12/24 @ 10:06 by Rachel Beard BUILDING MAINTENANCE CUSTODIAN, BUILDING MAINTENANCE CUSTODIAN-C) Hx of breast reconstruction History of prophylactic mastectomy of both breasts Status post implant removal from both breasts History of reconstruction of both breasts Hx of bilateral mastectomy History of placement of ear tubes History of bilateral breast implants Status post bilateral breast reconstruction Status po (more content not included)... Normal [facility] Plastic Surgery Visit Report on 04-07-2024 Plastic Surgery Visit Report [facility] [address], [address] [place] [address] OFFICE VISIT Date of Service: 04/07/24 MR#: [id number] Acct: [id number] Name: IRENE LOPEZ Rep #: [id number] : 1975 Provider: Dr. Marlon Allen MD Age/Sex: 48/F [place] [facility] [place] Status: Signed with Addenda ADDENDUM by Dr. Marlon Allen MD on 04/08/24 at 0815 Assessment and Plan (No Qualifiers) Assessment and Plan (1) History of reconstruction of both breasts: Status: Acute Plan Patient was reporting some carpal tunnel-like symptoms on the Thursday of discharge in the left hand. Reports that there was an IV infiltrate (bruising seen in clinic visit on dorsum of the hand). She reports normal sensation but some intermittent tingling in the radial three digits, but on the front and the back of the digits. Her thenar eminence fires and there is no concern for a brachial plexus injury from position (no other symptoms, and hand and upper extremity in safe neutral position and padded the entire case). I discussed with her that sometimes some baseline carpal tunnel can be worsened during long surgeries 2/2 swelling from fluids given. The IV infiltrate may have worsened it as well, brining in more extracellular fluid to the region (albeit the dorsum). Since she is improving, we will continue with conservative management and bracing. Patient happy with the plan. 04/08/24 0815 Date Marlon Allen MD cc: * Signed Intake Vital Signs 3 04/01/24 11:25 04/06/24 10:53 04/07/24 11:07 Height 5 ft 5 in 5 ft 5 in 5 ft 5 in BP 125/85 H Blood Pressure Location Rt brachial Position Sitting Respiration 18 Pulse 80 Pulse Source Monitor Temp 98.1 F Temp Source Oral Pulse Oximetry (%) 91 Oxygen Delivery Method room air Intake Visit Reasons: POST OP Chief Complaint: post op breast Is patient in pain?: Yes Pain scale (1-10): 1 Allergies Penicillins (PCN) Allergy (Verified 04/07/24 11:05) Hives, RASH Medications 3 ???Medication ???Instructions ???Recorded ???Confirmed ???Type ibuprofen 800 mg tablet 800 mg PO Q12H PRN PRN Migraine 03/28/22 04/07/24 History Headache omeprazole 40 mg capsule,delayed 40 mg PO DAILY gerd 03/28/22 04/07/24 History release sumatriptan succinate 100 mg tablet 100 mg PO PRN PRN MIGRAINE 03/28/22 04/07/24 History valacyclovir 500 mg tablet 500 mg PO DAILY PRN cold sores 03/28/22 04/07/24 History celecoxib 100 mg capsule (Celebrex) 100 mg PO BID 5 days #10 caps 04/03/24 04/07/24 Rx clindamycin HCl 300 mg capsule 300 mg PO Q8H 7 days #21 caps 04/03/24 04/07/24 Rx gabapentin 100 mg capsule 100 mg PO TID 5 days #15 caps 04/03/24 04/07/24 Rx (Neurontin) ondansetron 4 mg disintegrating 4 mg PO Q8H PRN nausea and 04/03/24 04/07/24 Rx tablet vomiting #10 tabs oxycodone 5 mg tablet 5 mg PO Q8H PRN pain 7 days #20 04/03/24 04/07/24 Rx tabs silver sulfadiazine 1 % topical 1 applic topical BID #50 grams 04/03/24 04/07/24 Rx cream Nurse's Note: pt states she is doing well other than her left hand, brusing noted and states since surgery she has had numbness and throbbing in that hand. Subjective Details: Doing well post op day 7 from bilateral MAKENNA. Took one roxicodone last night, but otherwise minimal pain. She is walking. No SOB or lower extremity swelling. Has been compliant with SSD dressings to the breast flap incisions and the umbilicus. Objective Details: CHEST: Female prosthodontist present for my exam Flap skin paddles are warm and well perfused. No congestion. Good Doppler signals bilaterally over the paddle. There is some slight reactive erythema/pink skin on the medial aspect of the left flap and on the kaguyuk mastectomy flap skin in the same location, but no signs of congestion and no induration. Breasts are soft bilaterally. Drains SS. Abdomen: Drains SS. Incision c/d/i underneath Prineo. Umbilicus with some dusky skin/eschar forming. Coding Level of Care Code Global Post Op Diagnoses History of reconstruction of both breasts Z98.890 [facility] Medical History Deformity of reconstructed breast GERD (gastroesophageal reflux disease) Resistance to other single specified antibiotic History of bilateral removal of breast implants Infection of breast implant Exposed breast implant Failed skin graft Failure of flap graft Methicillin resistant Staphylococcus epidermidis infection Nonhealing surgical wound PONV (postoperative nausea and vomiting) Cancer phobia Wears contact lenses Wears glasses Alcohol use Migraine headache Prophylactic ovary removal Prophylactic breast removal Disproportion of reconstructed breast (more content not included)... Normal [facility] Abdomen Single View (Portabl e)on 04-01-2024 Abdomen Single View (Portable) [facility] Imaging Services [address] [place] [id number] Abdomen Single View (Portable) MR#: [id number] Acct: [id number] Name: IRENE LOPEZ Rep #: [id number] : 1975 F 48 From: Stanley lyons MD PCP: Dr. Amanda Osborne MD Status: ADM IN Study: Abdomen Single View (Portable) Date of Exam: 0 04/01/24 Exam# [id number] Ordering Dr: Rachel Beard BUILDING MAINTENANCE CUSTODIAN BUILDING MAINTENANCE CUSTODIAN-C [id number] STUDY: X-RAY - ABDOMEN/PELVIS REASON FOR EXAM: Female, 48 years old. Abdominal bloating after surgery -- portable TECHNIQUE: Single AP view of the abdomen / pelvis. COMPARISON: None. FINDINGS: Drainage catheters are seen overlying both lower hemithoraces. Surgical clips are seen overlying the lower hemithoraces suggestive of possible breast surgery. Post surgical drainage catheters are seen overlying the pelvis bilaterally with multiple metallic clips. The gas pattern is unremarkable. RAD/Abdomen Single View (Portable) IMPRESSION: Postoperative changes. The gas pattern is unremarkable. Electronically Signed: Stanley Sharp MD at 15:55 EST Reading Location ID and State: [address] [place] [address] , Service support , CC: FLETCHER Beard; Dr. Amanda Osborne MD Ladle Handler: Signed Normal [facility] Absolute lymphocyte countOrd ered By: Marlon Allen on 04-01-2024 Lymphocytes Auto (Unsp spec) [#/Vol] 1.75 10*3/uL 0.83-4.51 [facility] Absolute neutrophil countOrd ered By: Marlon Allen on 04-01-2024 Neutrophils (Bld) [#/Vol] 10.0 10*3/uL High 2.0-7.7 [facility] Automated lymphocyte count a s percentage of total leukocytesOrdered By: Marlon Allen on 04-01-2024 Lymphocytes/100 WBC Auto (Unsp spec) 13.5 % Low 19-41 [facility] Basic Metabolic Profile (BMP )on 04-01-2024 BUN/CRE 12.1 RATIO Normal 10-20 [facility] Comment on above: Performed By: #### L 100.0100, L500.2500 ####[facility] [address] [place], [address] CA,Total 8.1 mg/dL Low 8.5-10.1 [facility] Comment on above: Performed By: #### L 100.0100, L500.2500 ####[facility] [address] [place], [address] Chloride [Moles/Vol] 107 mmol/L Normal 98-107 [facility] Comment on above: Performed By: #### L 100.0100, L500.2500 ####[facility] [address] [place], [address] CO2 [Moles/Vol] 26.0 mmol/L Normal 21.0-32.0 [facility] Comment on above: Performed By: #### L 100.0100, L500.2500 ####[facility] [address] [place], [address] Creatinine [Mass/Vol] 0.74 mg/dL Normal 0.55-1.02 [facility] Comment on above: Result Comment: The validity of the calculated GFR GFRAA in patients over 70 years has not been determined. Clinical correlation is essential. Performed By: #### L 100.0100, L500.2500 ####[facility] [address] [place], [address] ECRCL 99.13 ml/min Normal [facility] Comment on above: Performed By: #### L 100.0100, L500.2500 ####[facility] [address] [place], [address] EST GFR - AA 106 mL/min Normal >60 [facility] Comment on above: Result Comment: Afri can Faroese GFR Calc Performed By: #### L 100.0100, L500.2500 ####[facility] [address] [place], [address] GAP 5 Normal 5-15 [facility] Comment on above: Performed By: #### L 100.0100, L500.2500 ####[facility] [address] [place], [address] GFR/1.73 sq M.predicted among non-blacks MDRD (S/P/Bld) [Vol rate/Area] 88 mL/min/{1.73_m2} Normal >60 [facility] Comment on above: Result Comment: Non- GFR Calc Performed By: #### L 100.0100, L500.2500 ####[facility] [address] [place], [address] Glucose [Mass/Vol] 130 mg/dL High 74-106 [facility] Comment on above: Result Comment: Fast ing Glucose result greater than or equal to 126 mg/dL suggests DIABETES MELLITUS per A.D.A. criteria. Performed By: #### L 100.0100, L500.2500 ####[facility] [address], [address] Potassium [Moles/Vol] 4.2 mmol/L Normal 3.5-5.1 [facility] Comment on above: Performed By: #### L 100.0100, L500.2500 ####[facility] [address] [place], [address] Sodium [Moles/Vol] 138 mmol/L Normal 136-145 [facility] Comment on above: Performed By: #### L 100.0100, L500.2500 ####[facility] [address] [place], [address] Urea nitrogen [Mass/Vol] 9 mg/dL Normal 7-18 [facility] Comment on above: Performed By: #### L 100.0100, L500.2500 ####[facility] [address] [place], [address] Basophil percentageOrdered B y: Marlon Allen on 04-01-2024 Basophils/100 WBC (Bld) 0.5 % 0-1 [facility] Blood urea nitrogen (BUN)/cr eatinine ratioOrdered By: Marlon Allen on 04-01-2024 Urea nitrogen/Creatinine [Mass ratio] 12.1 mg/mg 10-20 [facility] CBC W/Diff, Automatedon 03-16 Absolute Lymph 1.75 X10 3/uL Normal 0.83-4.51 [facility] Comment on above: Performed By: #### L 100.0100, L500.2500 ####[facility] [address] [place], [address] Absolute Neut 10.0 X10 3/uL High 2.0-7.7 [facility] Comment on above: Performed By: #### L 100.0100, L500.2500 ####[facility] [address] [place], [address] Basophils/100 WBC (Bld) 0.5 % Normal 0-1 [facility] Comment on above: Performed By: #### L 100.0100, L500.2500 ####[facility] [address] [place], [address] Eosinophils/100 WBC (Bld) 0.7 % Normal 0-5 [facility] Comment on above: Performed By: #### L 100.0100, L500.2500 ####[facility] [address] [place], [address] Erythrocyte distribution width (RBC) [Ratio] 12.6 % Normal 11.6-14.6 [facility] Comment on above: Performed By: #### L 100.0100, L500.2500 ####[facility] [address] [place], [address] Hematocrit (Bld) [Volume fraction] 33.8 % Low 37-47 [facility] Comment on above: Performed By: #### L 100.0100, L500.2500 ####[facility] [address] [place], [address] Hemoglobin (Bld) [Mass/Vol] 11.2 g/dL Low 12.0-15.0 [facility] Comment on above: Performed By: #### L 100.0100, L500.2500 ####[facility] [address] [place], [address] IG% 0.600 Normal 0.0-0.9 [facility] Comment on above: Result Comment: IG% - Immature Granulocytes (promyelocytes, myelocytes and metamyelocytes) > 1% indicates that a LEFT SHIFT is Present. Performed By: #### L 100.0100, L500.2500 ####[facility] [address] [place], [address] Lymphocytes/100 WBC (Bld) 13.5 % Low 19-41 [facility] Comment on above: Performed By: #### L 100.0100, L500.2500 ####[facility] [address] [place], [address] MCH (RBC) [Entitic mass] 32.4 pg High 27.0-32.0 [facility] Comment on above: Performed By: #### L 100.0100, L500.2500 ####[facility] [address] [place], [address] MCHC (RBC) [Mass/Vol] 33.1 g/dL Normal 32-36 [facility] Comment on above: Performed By: #### L 100.0100, L500.2500 ####[facility] [address] [place], [address] MCV (RBC) [Entitic vol] 97.7 fL Normal 81-99 [facility] Comment on above: Performed By: #### L 100.0100, L500.2500 ####[facility] [address] [place], [address] Monocytes/100 WBC (Bld) 7.5 % Normal 0-10 [facility] Comment on above: Performed By: #### L 100.0100, L500.2500 ####[facility] [address] [place], [address] Neutrophils/100 WBC (Bld) 77.2 % High 47-70 [facility] Comment on above: Performed By: #### L 100.0100, L500.2500 ####[facility] [address] [place], [address] Nucleated RBC (Bld) [#/Vol] 0 10*3/uL Normal 0-5 [facility] Comment on above: Performed By: #### L 100.0100, L500.2500 ####[facility] [address] [place], [address] Platelet mean volume (Bld) [Entitic vol] 11.1 fL Normal 6.2-12.0 [facility] Comment on above: Performed By: #### L 100.0100, L500.2500 ####[facility] [address] [place], [address] Platelets (Bld) [#/Vol] 188 10*3/uL Normal 150-450 [facility] Comment on above: Performed By: #### L 100.0100, L500.2500 ####[facility] [address] [place], [address] RBC (Bld) [#/Vol] 3.46 10*6/uL Low 4.2-5.4 [facility] Comment on above: Performed By: #### L 100.0100, L500.2500 ####[facility] [address] [place], [address] RDW SD 44.9 fl High 35.1-43.9 [facility] Comment on above: Performed By: #### L 100.0100, L500.2500 ####[facility] [address] [place], [address] WBC (Bld) [#/Vol] 13.0 10*3/uL High 4.4-11.0 [facility] Comment on above: Performed By: #### L 100.0100, L500.2500 ####[facility] [address] [place], [place], [address] Carbon dioxide measurementOr dered By: Marlon Allen on 04-01-2024 CO2 [Moles/Vol] 26.0 mmol/L 21.0-32.0 [facility] Chest 1 View (Portable)on Chest 1 View (Portable) [facility] Imaging Services [address] [place], [place] [id number] Chest 1 View (Portable) MR#: [id number] Acct: [id number] Name: IRENE LOPEZ Rep #: [id number] : 1975 F 48 From: Stanley lyons MD PCP: Dr. Amanda Osborne MD Status: ADM IN Study: Chest 1 View (Portable) Date of Exam: 04/01/24 Exam# [id number] Ordering Dr: Rachel Beard NP BUILDING MAINTENANCE CUSTODIAN-C [id number] STUDY: X-RAY CHEST REASON FOR EXAM: Female, 48 years old. Postop, low O2 sat on room air -- portable TECHNIQUE: Single AP portable view of the chest. COMPARISON: Comparison is made with prior study dated April 29, 2022. FINDINGS: Drainage catheters are seen overlying both lower hemithoraces most likely secondary to recent breast surgery. Blunting of the left costophrenic angle with left basilar atelectasis. Normal size heart. Normal mediastinum and bhanu. Normal visualized pulmonary arteries. Normal visualized aortic arch and descending thoracic aorta. Normal visualized thoracic spine. Normal visualized ribs, clavicles, and shoulders. There is no demonstrated abnormality of the visualized soft tissue structures of the upper abdomen. RAD/Chest 1 View (Portable) IMPRESSION: There is blunting of the left costophrenic angle with left basilar atelectasis. Electronically Signed: Stanley Sharp MD at 15:56 EST , CC: FLETCHER Beard; Dr. Amanda Osborne MD Ladle Handler: Signed Normal [facility] Chloride measurementOrdered By: Marlon Allen on 04-01-2024 Chloride [Moles/Vol] 107 mmol/L 98-107 [facility] Eosinophil percentageOrdered By: Marlon Allen on 04-01-2024 Eosinophils/100 WBC (Bld) 0.7 % 0-5 [facility] Erythrocyte distribution wid th ratioOrdered By: Marlon Allen on 04-01-2024 Erythrocyte distribution width (RBC) [Ratio] 12.6 % 11.6-14.6 [facility] Erythrocyte distribution wid th standard deviationOrdered By: Marlon Allen on 04-01-2024 Erythrocyte distribution width (RBC) [Entitic vol] 44.9 fL High 35.1-43.9 [facility] Erythrocyte distribution width (RBC) [Ratio] 44.9 fl High 35.1-43.9 [facility] Estimated glomerular filtrat ion rate (GFR) AmericanOrdered By: Marlon Allen on 04-01-2024 Estimated GFR (MDRD) Amer 106 mL/min >60 [facility] Comment on above: GFR Calc Estimation of creatinine matias aranceOrdered By: Marlon Allen on 04-01-2024 Estimated Creatinine Clearance Calc 99.13 ml/min [facility] Glomerular filtration rate ( GFR) estimationOrdered By: Marlon Allen on 04-01-2024 Estimated GFR (MDRD) Non-Af Amer 88 mL/min >60 [facility] Comment on above: Non- GFR Calc GFR/1.73 sq M.predicted among non-blacks MDRD (S/P/Bld) [Vol rate/Area] 88 mL/min/{1.73_m2} >60 [facility] Comment on above: Non- GFR Calc Glucose measurementOrdered B y: Marlon Allen on 04-01-2024 Glucose [Mass/Vol] 130 mg/dL High 74-106 [facility] Comment on above: Fasting Glucose resu lt greater than or equal to 126 mg/dL suggests DIABETES MELLITUS per A.D.A. criteria. Hematocrit Auto (Bld) [Volum e fraction]Ordered By: Marlon Allen on 04-01-2024 Hematocrit (Bld) [Volume fraction] 33.8 % Low 37-47 [facility] Hemoglobin measurementOrdere d By: Marlon Allen on 04-01-2024 Hemoglobin (Bld) [Mass/Vol] 11.2 g/dL Low 12.0-15.0 [facility] Immature granulocytes/100 WB C Auto (Bld)Ordered By: Marlon Allen on 04-01-2024 Immature granulocytes/100 WBC (Bld) 0.600 % 0.0-0.9 [facility] Comment on above: IG% - Immature Granu locytes (promyelocytes, myelocytes and metamyelocytes) > 1% indicates that a LEFT SHIFT is Present. Lymphocytes Auto (Unsp spec) [#/Vol]Ordered By: Marlon Allen on 04-01-2024 Lymphocytes (Bld) [#/Vol] 1.75 10*3/uL 0.83-4.51 [facility] Lymphocytes/100 WBC Auto (Un sp spec)Ordered By: Marlon Allen on 04-01-2024 Lymphocytes/100 WBC (Bld) 13.5 % Low 19-41 [facility] MCV (mean corpuscular volume ) determinationOrdered By: Marlon Allen on 04-01-2024 MCV (RBC) [Entitic vol] 97.7 fL 81-99 [facility] Mean corpuscular hemoglobin (MCH) determinationOrdered By: Marlon Allen on 04-01-2024 MCH (RBC) [Entitic mass] 32.4 pg High 27.0-32.0 [facility] Mean corpuscular hemoglobin concentration (MCHC) determinationOrdered By: Marlon Allen on 01-17-2025 MCHC (RBC) [Mass/Vol] 33.1 g/dL 32-36 [facility] Mean platelet volume determi nationOrdered By: Marlon Allen on 04-01-2024 Platelet mean volume (Bld) [Entitic vol] 11.1 fL 6.2-12.0 [facility] Monocyte percentageOrdered B y: Marlon Allen on 04-01-2024 Monocytes/100 WBC (Bld) 7.5 % 0-10 [facility] Neutrophil percentageOrdered By: Marlon Allen on 04-01-2024 Neutrophils/100 WBC (Bld) 77.2 % High 47-70 [facility] Nucleated red blood cell per centageOrdered By: Marlon Allen on 04-01-2024 Nucleated RBC/100 WBC (Bld) [Ratio] 0 % 0-5 [facility] Operative Reporton 5 Operative Report [facility] Medical Records Department [address] [place] [address] Operative Report 04/01/24 1020 MR#: [id number] Acct: [id number] Name: IRENE LOPEZ Rep #: [id number] : 1975 48 From: Marlon Allen MD PCP: Dr. Amanda Osborne MD Status:ADM IN Location: ICU ICU03-1 Operative Report (Standard) Operative Information Date of Procedure: 03/31/24 Pre-Operative Diagnosis: History of breast reconstruction with capsular contracture/pain Post-Operative Diagnosis: Same Surgery/Procedure Performed: 1. Removal of right partial submuscular breast implant and acellular dermal matrix with capsulectomy (CPT 30552) 2. Removal of left partial submuscular breast implant and acellular dermal matrix with capsulectomy (CPT 28466 - 48 modifier) 3. Reconstruction of right breast with abdominally-based free tissue transfer via MAKENNA flap with one medial row and one lateral row brusher operator from the left abdomen Couple size 3 mm (CPT: 81279) 4. Reconstruction of left breast with abdominally-based free tissue transfer via MAKENNA flap with two lateral row perforators from the right abdomen Pool Hand size 3 mm (CPT: 59144-32 modifier) 5. Use of fluorescence angiography for assessment of the flaps intra-operatively (using SPY machine), (CPT: 51889) 6. Nerve reconstruction with oxygen allograft and nerve wrap to the third intercostal nerve, left chest, from nerve on the right MAKENNA flap, (CPT: 09058) poultry eviscerator: Yes Clean Energy Policy Analyst: Mirza Lanza Tasks completed by acute care certified nursing assistant: Retracting Additional assistant manager/embalmer?: Yes Additional Electronic Specialist #2: Pamela Berman Tasks completed by assistant manager/embalmer #2: Retracting Type of Anesthesia: General/Supplemental (20 cc of Exparel mixed with 0.25% Marcaine and 200 cc of injectable saline ) RN Documented Start/Stop Times: Operation Date: 03/31/24 07:30 Case Time Into Pre-Op 03/31/24 05:38 Out of Pre-Op 03/31/24 07:51 Anesthesia Start 03/31/24 07:52 Into Room 03/31/24 07:52 Procedure Start 03/31/24 08:34 Procedure End 03/31/24 19:24 Anesthesia End 03/31/24 19:59 Out of Room 03/31/24 19:59 Procedure Start Time: 08:34 Procedure Stop Time: 19:24 Select all DRAINS/GRAFTS/IMPLANTS that apply: Drains (Four 19 Fr Britany drains ) Drain details: Two in the abdomen and one in each breast Estimated Blood Loss: 200 cc Specimen collected: Yes Description of specimen(s) removed: Breast implants and capsules (bilateral) Description of surgery: Primary Surgeon: Marlon Allen MD Co-surgeon/assisting surgeon: Abby Haywood MD (assisted with capsulectomies/implant removal, closure of the abdomen). Ischemia times: * Right breast 14:09 - 15:16 * Left breast 15:45 - 16:49. 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 She had several complications with her implant-based reconstruction, most notably pain and contracture, worse on the right side than the left. She requested autologous reconstruction with a deep inferior epigastric brusher operator flap as she reported that she had not been offered this option during initial review and consultation. She understands the risks, benefits, and alternatives to the procedures, and would like to proceed. Procedure Details: Consent was obtained preoperatively.??? The patient was brought the operating room placed on table in supine position.??? A sign in was completed and general anesthesia was induced.??? The patient was prepped and draped with chlorhexidine in the usual sterile fashion.??? A timeout was completed. The right and left sides were completed in a similar fashion unless otherwise noted. We began by removing the breast tissue expanders.??? This was accomplished by incising the previous horizontal incision used for mastectomy.??? We dissected down to the skin subcutaneous tissue until we encountered the capsule.??? We then evaluated the capsule and performed a capsulectomy as required to achieve a favorable outcome. The capsule and the implant were removed together and sent for pathologic evaluation. During the right capsulectomy implant removal, a buttonhole unfortunately occurred on the right upper pole of the mastectomy flap laterally where there was an area of tethered scar. The wound was excised full-thickness with a 15 blade scalpel and closed with 3-0 Vicryl deep dermal interrupted sutures and a 4-0 Monocryl running subcuticular suture. We then began vessel exposure by incising the pectoralis major over the third intercostal cartilage.??? We dissected down through the the muscle along its fibers until we identified the medial cartilaginous portion of the third rib.??? The perichondrium was incised with a [place] elevator and the rib was removed with a rongeur.??? The posterior perich (more content not included)... Normal [facility] Platelet countOrdered By: Margaret Allen on 04-01-2024 Platelets (Bld) [#/Vol] 188 10*3/uL 150-450 [facility] Potassium measurementOrdered By: Marlon Allen on 04-01-2024 Potassium [Moles/Vol] 4.2 mmol/L 3.5-5.1 [facility] RBC Auto (Bld) [#/Vol]Ordere d By: Marlon Allen on 04-01-2024 RBC (Bld) [#/Vol] 3.46 10*6/uL Low 4.2-5.4 [facility] Serum anion gap measurementO rdered By: Marlon Allen on 04-01-2024 Anion gap [Moles/Vol] 5 mmol/L 5-15 [facility] Serum or plasma calcium deneen urement (mass/volume)Ordered By: Marlon Allen on 04-01-2024 Calcium [Mass/Vol] 8.1 mg/dL Low 8.5-10.1 [facility] Serum or plasma creatinine m easurement (mass/volume)Ordered By: Marlon Allen on 04-01-2024 Creatinine [Mass/Vol] 0.74 mg/dL 0.55-1.02 [facility] Comment on above: The validity of the calculated GFR & GFRAA in patients over 70 years has not been determined. Clinical correlation is essential. Serum or plasma urea nitroge n measurement (mass/volume)Ordered By: Marlon Allen on 04-01-2024 Urea nitrogen [Mass/Vol] 9 mg/dL 7-18 [facility] Sodium levelOrdered By: Candelario Allen on 04-01-2024 Sodium [Moles/Vol] 138 mmol/L 136-145 [facility] White blood cell (WBC) count Ordered By: Marlon Allen on 04-01-2024 WBC (Bld) [#/Vol] 13.0 10*3/uL High 4.4-11.0 [facility] 12 Lead EKGon 03-31-2024 12 Lead EKG [facility] [address] [place] [address] 12 Lead EKG 03/31/24 0553 MR#: [id number] Acct: [id number] Name: IRENE LOPEZ Rep #: [id number] : 1975 48 From: Sarah Leyva MD Attending Dr: Dr. Marlon Allen MD Status: DIS IN Ordering Dr: Roberto Guan MD Date: 03/31/24 Location: ICU Sex: F C Admitted: 03/31/24 Test Reason : PRE-OP Blood Pressure : */* mmHG Vent. Rate : 62 BPM Atrial Rate : 62 BPM P-R Int : 136 ms QRS Dur : 92 ms QT Int : 420 ms P-R-T Axes : 60 54 42 degrees QTcB Int : 426 ms Normal sinus rhythm Normal ECG When compared with ECG of 29-Apr-2022 07:05, No significant change was found Confirmed by GORDON ROBERTO, YAHIR ([id number]), slot editor TRUDY YATES ([id number]) on 04/11/2024 2:20:42 PM Referred By: Marlon Allen Confirmed By: YAHIR LEYVA MD 04/11/24 1420 Date Sarah Leyva MD CC: Dr. Roberto Guan MD; Dr. Amanda Osborne MD; Dr. Marlon Allen MD Signed Normal [facility] Bedside Glucoseon 03-31-2024 FINGERSTICK GLU 109 mg/dL High 74-106 [facility] Comment on above: Result Comment: [place] GEMENT OF PATIENT CARE PER NURSING PROTOCOL Performed By: #### L 501.080 #### [facility] [address] [place], [address] [facility] deOrdered By: Marlon Allen on 03-31-2024 Bedside Glucose (Misc Panel) 109 mg/dL High 74-106 [facility] Comment on above: MANAGEMENT OF PATIEN T CARE PER NURSING PROTOCOL Glucose [Mass/Vol] 109 mg/dL High [address] [facility] Comment on above: MANAGEMENT OF PATIEN T CARE PER NURSING PROTOCOL H AND P Exam - Surgicalon H&P Exam - Surgical [facility] Medical Records Department [address] [place] [address] H P Exam - Surgical 03/31/24 0709 MR#: [id number] Acct: [id number] Name: IRENE LOPEZ Rep #: [id number] : 1975 48 From: Marlon Allen MD PCP: Dr. Amanda Osborne MD Status:ADM IN Location: [place] [address] HPI - General General Date of Admission: 03/31/24 HPI Narrative Irene Lopez is a 47-year-old female that presents today for follow-up following her breast reconstruction with Dr. Barrett who is her plastic surgeon previously at our practice. Side of Diagnosis: Gene mutation, underwent prophylactic mastectomies and reconstruction (no history of chemo or radiation) Prior Abdominal Surgery: Hysterectomy (prophylactic related to the gene mutations, through a transverse Pfannenstiel incision) Bra Size: Would like to be at least a D cup. Feels like her breasts are currently too small. Per chart review, patient had had her last surgery with Dr. Barrett on 21 January 2023 where she underwent the fall: left breast reconstruction with removal of saline tissue expanders and placement of cohesive gel implant (630 ml) with MTF FlexHD acellular dermal matrix graft, (Pliable Shaped Perforated, Large, Thick, 13x22 cm, 2 pieces) and revision reconstructed left breast with superior capsulotomy and excision excess mastectomy skin contour deformity laterally and revision asymmetric inframammary fold with internal capsular plication and right breast reconstruction with removal of saline tissue marketing underwriter with replacement cohesive gel implant (630 ml) and placement of MTF FlexHD acellular dermal matrix graft, (Pliable Shaped Perforated, Large, Thick, 13x22 cm, 2 pieces) and revision reconstructed right breast with superior capsulotomy and excision excess mastectomy skin contour deformity laterally and revision asymmetric inframammary fold with internal capsular plication She has concerns about the shape of her breasts and she does not like where her nipples are located over the scar. She has noticed wrinkling of the implants on both sides, worse on the right. She would like to discuss options of fat grafting versus a bigger implant versus autologous reconstruction. Of note she wanted to keep her nipples through the reconstructive process but is now disappointed with the results of the nipples. She had wound healing problems on the nipples and there is significant scarring and total loss of projection. She had a total of 4 surgeries thus far for her breasts, including the following: (1) mastectomy with tissue marketing underwriter placement, (2) explantation of the tissue expanders from infection, (3) placement of new tissue expanders, (4)exchange for permanent implants. 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 She is overall healthy. She does not smoke. The patient reports that they do not have any personal or family history of bleeding or clotting disorders. She had 3 children through vaginal 18 December 2023: Patient presents today with chief complaint of unhappiness with implant-based reconstruction. She reports significant rippling as well as tight/uncomfortable scarring around the implant that is most noticeable when she is moving her upper extremities/lifting. She would like to have a more natural look and feel with autologous tissue. She has decided that she wants to pursue autologous breast reconstruction. She is also unhappy with upper pole fullness. She would like to eventually get tattoos for nipples. 03 Mar 2024: Continues to report significant rippling and contour deformities in her breasts. She has persistent tight/uncomfortable scarring around the implants on both sides that is most noticeable when she is moving her upper extremities/lifting. She would like to have a more natural look and feel with autologous tissue (continues to want a MAKENNA flap). When I talked to her about implants today (and the option of just doing implant revisions and fat grafting), she said I've already had 4 surgeries and I'm not happy with my implants and my reconstruction, I would like to be at least a little happy after all of these surgeries. I've researched the MAKENNA flap since we've talked and I want to try this. Of note, she lost her son since our last visit (he 1 month ago). She is doing remarkably well with the terrible adjustment that she has had to make, and reports that she's still in a good place mentally and can handle a big surgery (would like to proceed with surgery in March). 30 Mar 2024: Here for preoperative markings/discussion. Doing well overall. No significant changes. Current Encounter (DATE OF SURGERY H P UPDATE): I saw and examined the patient this morning in pre- operative holding. We discussed risks and benefits of today's surgery and they would like to proceed. NO CHANGE i (more content not included)... Normal [facility] MR/POSTOP.ANEon 03-31-2024 MR/POSTOP.ANE [facility] Medical Records Department [address] [place] [address] Anesthesia Postop Eval I 03/31/242005 MR#: [id number] Acct: [id number] Name: IRENE LOPEZ Rep #: [id number] : 1975 48 From: Maisha Corea PCP: Dr. Amanda Osborne MD Status:DIS IN Y Race: C Location: ICU ICU03-1 Anesthesia: Postop Eval I Current Vital Signs Temperature: 96.8 F Pulse Rate: 92 Blood Pressure: 167/91 Respiratory Rate: 14 Pulse Ox: 99 Oxygen Delivery Method: Simple Mask Oxygen Flow Rate (L/min): 8 Assessment Airway patent: Yes Spontaneous unlabored respirations: Yes Mental status: Awake and Calm nausea: No Vomiting: No Anesthesia Complication: No Fluid Hydration Crystalloid volume administer (ml): 7,280 Total IV fluid infused: 7,280 Progress Note Post-operative progress note: Patient extubated. Spontaneously breathing. Transport to ICU with oxygen and monitors for close monitoring of the perfusion in the flap. Anesthesia document: Postop Eval 1 completed: Yes 03/31/242030 Date Maisha Angeladary Cosigner Signature: Date CC: Signed Normal [facility] MR/[id number] 03-31-2024 [facility] Medical Records Department [address] [place] [address] Anesthesia Postop Eval II 03/31/242038 MR#: [id number] Acct: [id number] Name: IRENE LOPEZ Rep #: [id number] : 1975 48 From: Roberto Guan MD PCP: Dr. Amanda Osborne MD Status:ADM IN Y Race: C Location: ICU ICU03- Anesthesia Postop Eval I Sum Postop Eval Completion status Anesthesia document: Postop Eval 1 completed: Yes Anesthesia Postop Eval I Summary Anesthesia Postop Eval I Summary: Anesthesia Postop Eval I: Assessment Summary Airway patent Yes 03/31/24 20:24 RENAL DIETITIAN.GDOTT Spontaneous unlabored Yes 03/31/24 20:24 RENAL DIETITIAN.GDOTT respirations Mental status Awake,Calm 03/31/24 20:24 RENAL DIETITIAN.GDOTT nausea No 03/31/24 20:24 RENAL DIETITIAN.GDOTT Vomiting No 03/31/24 20:24 RENAL DIETITIAN.GDOTT Anesthesia Postop Eval I: Fluid Summary Crystalloid volume administer ,280 03/31/24 20:24 RENAL DIETITIAN.GDOTT (ml) Colloids volume administered ( ml) Blood Product volume administered (ml) Total IV fluid infused 280 03/31/24 20:24 RENAL DIETITIAN.GDOTT Anesthesia Postop Eval I: Summary Notes Anesthesia Complication No 03/31/24 20:24 RENAL DIETITIAN.GDOTT Anesthesia Complication Comment: Post-operative progress note Patient extubated. 03/31/24 20:31 RENAL DIETITIAN.GDOTT Spontaneously breathing. Transport to ICU with oxygen and monitors for close monitoring of the perfusion in the flap. Anesthesia: Postop Eval II Evaluation Mental status: Awake and Calm Pain Level: 1 nausea: No Vomiting: No Complications Anesthesia Complication: No 03/31/242039 Date Roberto Guan MD Cosigner Signature: Date CC: Signed Normal [facility] Magnesiumon 03-31-2024 Magnesium [Mass/Vol] 2.2 mg/dL Normal 1.6-2.6 [facility] Comment on above: Performed By: #### L [id number] #### [facility] [address] [place] [address], [address] Magnesium measurementOrdered By: Roberto Guan on 03-31-2024 Magnesium [Mass/Vol] 2.2 mg/dL 1.6-2.6 [facility] Surgery Specimen Level Randal 03-31-2024 Surgery Specimen Level IV Patient Age/Sex Location Account Attending Physician ETELVINARIENE DOMO 48/F ICU [id number] Dr. Marlon Allen MD Specimen: [id number] Received: 04/01/24 Status: RYLAND Breenrashawn Num: [id number] Spec Type: FOREIGN B Subm Dr: Dr. Marlon Allen MD HEADER OPERATION: Reconstruction using deep inferior epigastric perforation PRE-OP DIAGNOSIS: Deformity of reconstructed breast, history of prophylactic mastectomy of both breasts, prophylactic breast removal TISSUE SUBMITTED: A- Left capsule, B- Left implant, C- Right implant, D- Right capsule MICROSCOPIC DIAGNOSIS A. Left capsule, excision: Pieces of dense fibroconnective tissue, fibroadipose and skeletal muscle consistent with capsule with focal foreign body giant cell reaction. B. Left implant: Implant (gross only). C. Right implant: Implant (gross only). D. Right capsule, excision: Pieces of dense fibroconnective and fibroadipose tissue consistent with capsule with focal foreign body giant cell reaction. SJ.mr 04/04/2024 MICROSCOPIC DESCRIPTION Slides are reviewed. GROSS DESCRIPTION A. Received in fixative is one container labeled with the patient's name and designated Left capsule. The specimen consists of a piece of bagley-pink congested tissue consisting of capsule measuring 13 x 10 x 1cm. Also present in the container are multiple pieces of bagley indurated tissue consistent of portion of capsule measuring in aggregate 7.5 x 3.5 x 0.5cm. Human Resources District Manager sections are submitted in one cassette. B. Received in fixative is one container labeled with the patient's name and designated Left implant. The specimen consists of a ovoid gel implant measuring 17cm in diameter and up to 5cm in depth. Implant appears to be intact. Inscription on the implant says [place] [id number] M+D 630cc. The specimen is for gross identification only. C. Received in fixative is one container labeled with the patient's name and designated Right implant. The specimen consists of a ovoid gel implant measuring 17cm in diameter and up to 5cm in depth. Implant appears to be intact. Inscription on the implant says [place] [id number] M+D 630cc. The specimen is for gross identification only. D. Received in fixative is one container labeled with the patient's name and designated Right capsule. The specimen consists of a piece of bagley-pink congested tissue consisting of capsule measuring 13 x 12 x 1cm. Also present in the container are multiple pieces of bagley indurated tissue consistent of portion of capsule measuring in aggregate 7 x 6 x 1.5cm. Human Resources District Manager sections are submitted in one cassette. RUSTY. 04/01/2024 TC:5 [facility]:[id number], [id number] Patient Age/Sex Location Account Attending Physician IRENE LOPEZ 48/F ICU [id number] Dr. Marlon Allen MD Signed (signature on file) Dr. Vasyl Spivey MD 04/04/24 1306 Normal [facility] Comment on above: Performed By: #### P SUIV ####[facility] [address] [place], [place], [address] Type AND Screenon 03-31-2024 ABO and Rh group Nom (Bld) Blood group O Rh(D) positive Normal [facility] Comment on above: Order Comment: S Performed By: #### B TS ####[facility] [facility] [id number] [place], [place], [address] Plastic Surgery Visit Report on 03-30-2024 Plastic Surgery Visit Report [facility] [address], [address] [place], [place] [address] OFFICE VISIT Date of Service: 03/30/24 MR#: [id number] Acct: [id number] Name: IRENE LOPEZ Rep #: [id number] : 1975 Provider: Dr. Marlon Allen MD Age/Sex: 48/F [place] [facility] Status: Signed with Addenda ADDENDUM by Dr. Marlon Allen MD on 03/30/24 at 1701 Assessment and Plan (No Qualifiers) Assessment and Plan (1) History of reconstruction of both breasts: Status: Acute Plan: Discussed nipples as well. 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 She understands that incisions will be next to nipples and could compromise blood flow to them. She has no concerns about this. (2) Deformity of reconstructed breast: Status: Chronic Comment: excess mastectomy skin contour deformity lateral aspects both breasts reconstruction 03/30/24 1701 Date Marlon Allen MD cc: * Signed Intake Vital Signs 03/03/24 15:02 03/30/24 15:33 Height 5 ft 6 in 5 ft 6 in Weight: 184 lb 184 lb BMI 29.7 29.7 BP 120/77 114/76 Blood Pressure Location Rt brachial Rt brachial Position Sitting Sitting Respiration 18 18 Pulse 71 75 Pulse Source Monitor Temp 98.3 F 98.9 F Temp Source Oral Oral Pulse Oximetry (%) 91 91 Oxygen Delivery Method room air room air Intake Visit Reasons: PRE OP Chief Complaint: Preop Breast Is patient in pain?: No Allergies Penicillins (PCN) Allergy (Verified 03/30/24 15:31) Hives, RASH Medications ???Medication ???Instructions ???Recorded ???Confirmed ???Type ibuprofen 800 mg tablet 800 mg PO Q12H PRN PRN Migraine 03/28/22 03/30/24 History Headache omeprazole 40 mg capsule,delayed 40 mg PO DAILY gerd 03/28/22 03/30/24 History release sumatriptan succinate 100 mg tablet 100 mg PO PRN PRN MIGRAINE 03/28/22 03/30/24 History valacyclovir 500 mg tablet 500 mg PO DAILY PRN cold sores 03/28/22 03/30/24 History PFSH Medical History Deformity of reconstructed breast GERD (gastroesophageal reflux disease) Resistance to other single specified antibiotic History of bilateral removal of breast implants Infection of breast implant Exposed breast implant Failed skin graft Failure of flap graft Methicillin resistant Staphylococcus epidermidis infection Nonhealing surgical wound PONV (postoperative nausea and vomiting) Cancer phobia Wears contact lenses Wears glasses Alcohol use Migraine headache Prophylactic ovary removal Prophylactic breast removal 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 Genetic 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 Cancer phobia Monoallelic mutation of DEISY gene Family history of breast cancer Former smoker Ptosis of both breasts Pneumonia Frequent headaches Allergies Surgical History Hx of breast reconstruction History of prophylactic mastectomy of both breasts Status post implant removal from both breasts History of reconstruction of both breasts Hx of bilateral mastectomy History of placement of ear tubes History of bilateral breast implants Status post bilateral breast reconstruction Status post bilateral mastectomy History of bilateral oophorectomy History of bladder surgery History of hysterectomy Family History Grandmother Breast cancer Aunt Breast cancer Father Diabetes Social History Smoking Status: Former smoker alcohol intake: current substance use type: does not use additional social history: Does Not Take Aspirin Does Take Ibuprofen As Needed HPI PRE OP Details: HPI: Irene Lopez is a 47-year-old female that presents today for follow-up following her breast reconstruction with Dr. Barrett who is her plastic surgeon previously at our practice. Side of Diagnosis: Gene mutation, underwent prophylactic mastectomies and reconstruction (no history of chemo or radiation) Prior Abdominal Surgery: Hysterectomy (prophylactic related to the gene mutations, through a transverse Pfannenstiel incision) Bra Size: Would like to be at least a D cup. Feels like her breasts are currently too small. Per chart review, patient had had her last surgery with Dr. Barrett on 21 January 2023 where she underwent the fall: left breast reconstruction with removal of saline tissue expanders and pl acement of cohesive gel implant (630 ml) with MTF FlexHD acellular dermal matrix graft, (Pliable Shaped Perforated, Large, Thick, 13x22 cm (more content not included)... Normal [facility] Basic metabolic 2000 panelon 03-21-2024 Anion gap [Moles/Vol] 13 mmol/L Normal 10-20 [facility] Comment on above: Performed By: #### 2 4321-2 #### JONAH ANDERSON ([id number]) [facility] ([facility]) [address] [place] [address]75 Calcium [Mass/Vol] 9.8 mg/dL Normal 8.6-10.3 [facility] Comment on above: Performed By: #### 2 4321-2 #### JONAH ANDERSON ([id number]) [facility] ([facility]) [facility] [place] [address] Chloride [Moles/Vol] 102 mmol/L Normal 98-107 [facility] Comment on above: Performed By: #### 2 4321-2 #### JONAH ANDERSON ([id number]) [facility] ([facility]) [address] [place] [address] CO2 [Moles/Vol] 28 mmol/L Normal 21-32 [facility] Comment on above: Performed By: #### 2 4321-2 #### JONAH ANDERSON ([id number]) [facility] ([facility]) [facility] [place] [address] Creatinine [Mass/Vol] 0.68 mg/dL Normal 0.50-1.05 [facility] Comment on above: Performed By: #### 2 4321-2 #### JONAH ANDERSON ([id number]) [facility] ([facility]) [address] [place] [address] GFR/1.73 sq M.predicted MDRD (S/P/Bld) [Vol rate/Area] mL/min/{1.73_m2} Normal >60 [facility] Comment on above: Result Comment: Calc ulations of estimated GFR are performed using the 2020 CKD-EPI Study Refit equation without the race variable for the IDMS-Traceable creatinine methods. https://jasn.asnjournals.org/content//ASN.83068 55736 Performed By: #### 2 4321-2 #### JONAH ANDERSON ([id number]) [facility] ([facility]) [address] [place] [address] 15604 Glucose [Mass/Vol] 99 mg/dL Normal 74-99 [facility] Comment on above: Performed By: #### 2 4321-2 #### JONAH ANDERSON ([id number]) [facility] ([facility]) [address] [place] [address] 42444 Potassium [Moles/Vol] 4.4 mmol/L Normal 3.5-5.3 [facility] Comment on above: Performed By: #### 2 4321-2 #### JONAH ANDERSON ([id number]) [facility] ([facility]) [address] [place] [address] 22488 Sodium [Moles/Vol] 139 mmol/L Normal 136-145 [facility] Comment on above: Performed By: #### 2 4321-2 #### JONAH ANDERSON ([id number]) [facility] ([facility]) [address] [place] [address] 23259 Urea nitrogen [Mass/Vol] 15 mg/dL Normal 6-23 [facility] Comment on above: Performed By: #### 2 4321-2 #### JONAH ANDERSON ([id number]) [facility] ([facility]) [address] [place] [address] 18648 CBC W Auto Differential pane l (Bld)on 03-21-2024 Basophils (Bld) [#/Vol] 0.06 x10*3/uL Normal 0.00-0.10 [facility] Comment on above: Performed By: #### 5 7021-8 #### JONAH ANDERSON ([id number]) [facility] ([facility]) [address] [place] [address] 91108 Basophils/100 WBC (Bld) 0.7 % Normal 0.0-2.0 [facility] Comment on above: Performed By: #### 5 7021-8 #### JONAH ANDERSON ([id number]) [facility] ([facility]) [address] [place] [address] 39704 Eosinophils (Bld) [#/Vol] 0.36 x10*3/uL Normal 0.00-0.70 [facility] Comment on above: Performed By: #### 7021-8 #### JONAH ANDERSON ([id number]) [facility] ([facility]) [address] [place] [address] 66015 Eosinophils/100 WBC (Bld) 4.1 % Normal 0.0-6.0 [facility] Comment on above: Performed By: #### 7021-8 #### JONAH ANDERSON ([id number]) [facility] ([facility]) [address] [place] [address] 24427 Erythrocyte distribution width (RBC) [Ratio] 12.0 % Normal 11.5-14.5 [facility] Comment on above: Performed By: #### 7021-8 #### JONAH ANDERSON ([id number]) [facility] ([facility]) [address] [place] [address] 79990 Hematocrit (Bld) [Volume fraction] 39.9 % Normal 36.0-46.0 [facility] Comment on above: Performed By: #### 5 7021-8 #### JONAH ANDERSON ([id number]) [facility] ([facility]) [address] [place] [address] 68611 Hemoglobin (Bld) [Mass/Vol] 13.3 g/dL Normal 12.0-16.0 [facility] Comment on above: Performed By: #### 5 7021-8 #### JONAH ANEDRSON ([id number]) [facility] ([facility]) [address] [place] [address] 13416 Immature granulocytes (Bld) [#/Vol] 0.06 x10*3/uL Normal 0.00-0.70 [facility] Comment on above: Performed By: #### 5 7021-8 #### JONAH ANDERSON ([id number]) [facility] ([facility]) [address] [place] [address] 49501 Immature granulocytes/100 WBC (Bld) 0.7 % Normal 0.0-0.9 [facility] Comment on above: Result Comment: Erika ture Granulocyte Count (IG) includes promyelocytes, myelocytes and metamyelocytes but does not include bands. Percent differential counts (%) should be interpreted in the context of the absolute cell counts (cells/UL). Performed By: #### 5 7021-8 #### JONAH ANDERSON ([id number]) [facility] ([facility]) [address] [place] [address] Lymphocytes (Bld) [#/Vol] 2.06 x10*3/uL Normal 1.20-4.80 [facility] Comment on above: Performed By: #### 5 7021-8 #### JONAH ANDERSON ([id number]) [facility] ([facility]) [address] [place] [address] 73061 Lymphocytes/100 WBC (Bld) 23.3 % Normal 13.0-44.0 [facility] Comment on above: Performed By: #### 5 7021-8 #### JONAH ANDERSON ([id number]) [facility] ([facility]) [address] [place] [address] 28920 MCH (RBC) [Entitic mass] 31.9 pg Normal 26.0-34.0 [facility] Comment on above: Performed By: #### 5 7021-8 #### JONAH ANDERSON ([id number]) [facility] ([facility]) [address] [place] [address] 38828 MCHC (RBC) [Mass/Vol] 33.3 g/dL Normal 32.0-36.0 [facility] Comment on above: Performed By: #### 5 7021-8 #### JONAH ANDERSON ([id number]) [facility] ([facility]) [address] [place] [address] 70779 MCV (RBC) [Entitic vol] 96 fL Normal 80-100 [facility] Comment on above: Performed By: #### 5 7021-8 #### JONAH ANDERSON ([id number]) [facility] ([facility]) [address] [place] [address] 56578 Monocytes (Bld) [#/Vol] 0.70 x10*3/uL Normal 0.10-1.00 [facility] Comment on above: Performed By: #### 5 7021-8 #### JONAH ANDERSON ([id number]) [facility] ([facility]) [address] [place] [address] 17834 Monocytes/100 WBC (Bld) 7.9 % Normal 2.0-10.0 [facility] Comment on above: Performed By: #### 5 7021-8 #### JONAH ANDERSON ([id number]) [facility] ([facility]) [address] [place] [address] 00958 Neutrophils (Bld) [#/Vol] 5.60 x10*3/uL Normal 1.20-7.70 [facility] Comment on above: Result Comment: Perc ent differential counts (%) should be interpreted in the context of the absolute cell counts (cells/uL). Performed By: #### 5 7021-8 #### JONAH ANDERSON ([id number]) [facility] ([facility]) [address] [place] [address] 47865 Neutrophils/100 WBC (Bld) 63.3 % Normal 40.0-80.0 [facility] Comment on above: Performed By: #### 5 7021-8 #### JONAH ANDERSON ([id number]) [facility] ([facility]) [address] [place] [address] 14760 Nucleated RBC/100 WBC (Bld) [Ratio] 0.0 /100 WBCs Normal 0.0-0.0 [facility] Comment on above: Performed By: #### 5 7021-8 #### JONAH ANDERSON ([id number]) [facility] ([facility]) [address] [place] [address] 21924 Platelets (Bld) [#/Vol] 201 x10*3/uL Normal 150-450 [facility] Comment on above: Performed By: #### 5 7021-8 #### JONAH ANDERSON ([id number]) [facility] ([facility]) [address] [place] [address] 51617 RBC (Bld) [#/Vol] 4.17 x10*6/uL Normal 4.00-5.20 [facility] Comment on above: Performed By: #### 5 7021-8 #### JONAH ANDERSON ([id number]) [facility] ([facility]) [address] [place] [address] 91620 WBC (Bld) [#/Vol] 8.8 x10*3/uL Normal 4.4-11.3 [facility] Comment on above: Performed By: #### 5 7021-8 #### JONAH ANDERSON ([id number]) [facility] ([facility]) [address] [place] [address] 99878 HbA1c (Bld) [Mass fraction]o n 03-21-2024 Average glucose Estimated from glycated hemoglobin (Bld) [Mass/Vol] 111 mg/dL Normal Not Established [facility] Comment on above: Order Comment: Diagn osis of Diabetes-Adults Non-Diabetic: < or = 5.6% Increased risk for developing diabetes: 5.7-6.4% Diagnostic of diabetes: > or = 6.5% Performed By: #### 4 548-4 #### TREVON Marie ([id number]) [facility] ([facility]) [address] [place] [address] Hemoglobin A1c/Hemoglobin.to goran 03-21-2024 HbA1c (Bld) [Mass fraction] 5.5 % Normal See comment [facility] Comment on above: Order Comment: Diagn osis of Diabetes-Adults Non-Diabetic: < or = 5.6% Increased risk for developing diabetes: 5.7-6.4% Diagnostic of diabetes: > or = 6.5% Performed By: #### 4 548-4 #### TREVON Marie ([id number]) [facility] ([facility]) [address] [place] [address] Plastic Surgery Visit Report on 03-03-2024 Plastic Surgery Visit Report [facility] [address], [address] [place], [place] [id number] OFFICE VISIT Date of Service: 03/03/24 MR#: [id number] Acct: [id number] Name: IRENE LOPEZ Rep #: [id number] : 1975 Provider: Dr. Marlon Allen MD Age/Sex: 48/F [place] [facility] Status: Signed Intake Vital Signs 12/03/23 16:17 03/03/24 15:02 Height 5 ft 6 in 5 ft 6 in Weight: 182 lb 184 lb BMI 29.3 29.7 BP 132/77 H 120/77 Blood Pressure Location Rt brachial Rt brachial Position Sitting Sitting Respiration 16 18 Pulse 74 71 Pulse Source Monitor Monitor Temp 98.0 F 98.3 F Temp Source Temporal Oral Pulse Oximetry (%) 98 91 Oxygen Delivery Method room air room air Intake Visit Reasons: pre op Chief Complaint: Preop Breast Allergies Penicillins (PCN) Allergy (Verified 03/03/24 14:59) Hives, RASH Medications ???Medication ???Instructions ???Recorded ???Confirmed ???Type ibuprofen 800 mg tablet 800 mg PO Q12H PRN PRN Migraine 03/28/22 03/03/24 History Headache omeprazole 40 mg capsule,delayed 40 mg PO DAILY gerd 03/28/22 03/03/24 History release sumatriptan succinate 100 mg tablet 100 mg PO PRN PRN MIGRAINE 03/28/22 03/03/24 History valacyclovir 500 mg tablet 500 mg PO DAILY cold sores 03/28/22 03/03/24 History Nurse's Note: [facility] Medical History Deformity of reconstructed breast GERD (gastroesophageal reflux disease) Resistance to other single specified antibiotic History of bilateral removal of breast implants Infection of breast implant Exposed breast implant Failed skin graft Failure of flap graft Methicillin resistant Staphylococcus epidermidis infection Nonhealing surgical wound PONV (postoperative nausea and vomiting) Cancer phobia Wears contact lenses Wears glasses Alcohol use Migraine headache Gastric reflux Prophylactic ovary removal Prophylactic breast removal 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 Genetic 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 Cancer phobia Monoallelic mutation of DEISY gene Family history of breast cancer Former smoker Ptosis of both breasts Pneumonia Frequent headaches Allergies Surgical History Hx of breast reconstruction History of prophylactic mastectomy of both breasts Status post implant removal from both breasts History of reconstruction of both breasts Hx of bilateral mastectomy History of placement of ear tubes History of bilateral breast implants Status post bilateral breast reconstruction Status post bilateral mastectomy History of bilateral oophorectomy History of bladder surgery History of hysterectomy Family History Grandmother Breast cancer Aunt Breast cancer Father Diabetes Social History Smoking Status: Former smoker alcohol intake: current substance use type: does not use additional social history: Does Not Take Aspirin Does Take Ibuprofen As Needed HPI pre op Details: HPI: Irene Lopez is a 47-year-old female that presents today for follow-up following her breast reconstruction with Dr. Barrett who is her plastic surgeon previously at our practice. Side of Diagnosis: Gene mutation, underwent prophylactic mastectomies and reconstruction (no history of chemo or radiation) Prior Abdominal Surgery: Hysterectomy (prophylactic related to the gene mutations, through a transverse Pfannenstiel incision) Bra Size: Would like to be at least a D cup. Feels like her breasts are currently too small. Per chart review, patient had had her last surgery with Dr. Barrett on 21 January 2023 where she underwent the fall: left breast reconstruction with removal of saline tissue expanders and placement of cohesive gel implant (630 ml) with MTF FlexHD acellular dermal matrix graft, (Pliable Shaped Perforated, Large, Thick, 13x22 cm, 2 pieces) and revision reconstructed left breast with superior capsulotomy and excision excess mastectomy skin contour deformity laterally and revision asymmetric inframammary fold with internal capsular plication and right breast reconstruction with removal of saline tissue marketing underwriter with replacement cohesive gel implant (630 ml) and placement of MTF FlexHD acellular dermal matrix graft, (Pliable Shaped Perforated, Large, Thick, 13x22 cm, 2 pieces) and revision reconstructed right breast with superior capsulotomy and excision excess mastectomy skin contour deformity laterally and revision asymmetric inframammary fold with internal capsular plication She has concerns about the (more content not included)... Normal [facility] Cervical AND or Vaginal cyto logy studyon 03-01-2024 Cytology Cervical or vaginal smear or scraping study Pathology report.total SEE COMMENT Gynecologic Cytology Case: [id number] Authorizing Provider: Zenaida Silva MD Collected: 03/01/20241541 Ordering Location: [facility] Received: 03/01/2024 [address] First Screen: JUDY Krueger Rescreen: JUDY Amin Specimen: ThinPrep Liquid-Based Pap-Imaging System Screen, VAGINA, SCREENING Cytology study comment SEE COMMENT A. THINPREP PAP VAGINA, SCREENING - Specimen Adequacy Satisfactory for evaluation General Categorization Negative for intraepithelial lesion or malignancy. Descriptive Interpretation Negative for intraepithelial lesion or malignancy Specimen does not meet the requisition-stated criteria for HPV testing. See Pap test interpretation above. Laboratory comment SEE COMMENT Slide(s) initially screened by JUDY Krueger at [facility] [id number] [place] [phone] QC review performed by JUDY Amin at [address] [address] By the signature on this report, the individual or group listed as making the Final Interpretation/Diagnosis certifies that they have reviewed this case. This specimen has been analyzed by the ThinPrep Imaging System ([employer] an automated imaging and review system, which assists the laboratory in evaluating cells on ThinPrep Pap tests. Following automated imaging, selected pierce from every slide were reviewed by a gripper installer and/or pathologist. Cervical cytology is a screening [...] LAB AP PREVIOUS ABNORMAL HISTORY LSIL Normal [facility] CTA Abd/Pelvis W/WO Contrast on 01-04-2024 CTA Abd/Pelvis W/WO Contrast [facility] [address] [place] [address] CTA Abd/Pelvis W/WO Contrast MR#: [id number] Acct: [id number] Name: IRENE LOPEZ Rep #: [id number] : 1975 F 48 From: [facility] PCP: Dr. Amanda Osborne MD Status: REG CL Study: CTA Abd/Pelvis W/WO Contrast Date of Exam: Exam# [id number] Ordering Dr: Rachel Beard NP BUILDING MAINTENANCE CUSTODIAN-C [id number] INDICATION: MAKENNA procedure for Abdominal wall perforators EXAMINATION: CTA abdomen and pelvis - TECHNIQUE: Routine abdominal CT angiogram protocol was performed with IV contrast. MIP images provided. The protocol utilizes one or more of the following dose reduction techniques: automated exposure control, adjustment of mA and/or kV according to patient size,and/or use of iterative reconstruction technique. IV Contrast dosage and agent: 100 cc of Isovue-370 RADIATION DOSAGE (If Supplied By Facility): CTDIvol = ( 30.9 ) mGy, DLP = ( 954.91 ) mGycm COMPARISON: No relevant prior comparison study available FINDINGS: Lung bases: Partially visualized bilateral breast implants. Lower lungs are essentially clear. Liver: Prominent right lobe of the liver could be due to hepatomegaly or Lauryn''s lobe. Simple cyst in the left lobe of the liver measuring about 3.2 cm. Smaller cyst in the right lobe. Gallbladder: No evidence of gallstones. Spleen: Heterogeneously enhancing due to arterial phase of scanning. No splenomegaly. Adrenal gland: Normal. Kidneys: Unremarkable. No hydronephrosis or stone formation. Pancreas:Unremarkable. Bowel gas pattern: Normal caliber small bowel loops. Fecal retention. Unremarkable appendix. No evidence of acute diverticulitis. Peritoneum/retroperitoneu m: No evidence of free air free fluid. Pelvis: Pelvic organs: Absent uterus consistent with previous hysterectomy. Bone survey: No aggressive bony lesions. No acute fractures. Degenerative changes at the level of L5-S1 Adenopathy: No significant pathologic adenopathy detected. Vascular: Unremarkable abdominal aorta without evidence of aneurysm. Patent celiac axis, SMA, bilateral renal arteries, SAMRA and bilateral common iliac arteries without evidence of stenosis. CT/CTA Abd/Pelvis W/WO Contrast IMPRESSION: 1. Hepatomegaly and liver cyst. 2. No focal acute inflammatory process. 3. No evidence of vascular stenosis. Electronically Signed: William Sheffield MD at 10:15 EDT , CC: FLETCHER Beard; Dr. Amanda Osborne MD Ladle Handler: Signed Normal [facility] Plastic Surgery Visit Report on 12-17-2023 Plastic Surgery Visit Report [facility] [address] [facility], [address] [place] [address] OFFICE VISIT Date of Service: 12/17/23 MR#: [id number] Acct: [id number] Name: IRENE LOPEZ Rep #: [id number] : 1975 Provider: Dr. Marlon Allen MD Age/Sex: 47/F [place] [facility] [place] Status: Signed Intake Vital Signs 12/03/23 16:17 12/17/23 15:20 Height 5 ft 6 in Weight: 182 lb BMI 29.3 BP 132/77 H 118/69 Blood Pressure Location Rt brachial Rt brachial Position Sitting Sitting Respiration 16 18 Pulse 74 91 Pulse Source Monitor Monitor Temp 98.0 F 98 F Temp Source Temporal Oral Pulse Oximetry (%) 98 92 Oxygen Delivery Method room air room air Intake Visit Reasons: 2 W FU Chief Complaint: 2w FU small areas of indentation bilateral breasts Is patient in pain?: No Allergies Penicillins (PCN) Allergy (Verified 12/17/23 15:19) Hives, RASH Medications ???Medication ???Instructions ???Recorded ???Confirmed ???Type ibuprofen 800 mg tablet 800 mg PO Q12H PRN PRN Migraine 03/28/22 12/17/23 History Headache omeprazole 40 mg capsule,delayed 40 mg PO DAILY 03/28/22 12/17/23 History release sumatriptan succinate 100 mg tablet 100 mg PO PRN PRN MIGRAINE 03/28/22 12/17/23 History valacyclovir 500 mg tablet 500 mg PO DAILY 03/28/22 12/17/23 History diazepam 5 mg tablet (Valium) 5 mg PO BID PRN spasm #14 tabs 12/25/22 12/17/23 Rx docusate sodium 100 mg capsule 100 mg PO DAILY PRN PRN 01/23/23 12/17/23 Rx constipation 30 days #30 caps ondansetron 4 mg disintegrating 4 mg PO Q8H PRN nausea and 01/23/23 12/17/23 Rx tablet vomiting 5 days #10 tabs oxycodone-acetaminophen 5 mg-325 1 tab PO Q6H PRN pain (scale score 01/23/23 12/17/23 Rx mg tablet (Percocet) 7-10) 7 days #28 tabs levofloxacin 500 mg tablet 500 mg PO DAILY #30 tabs 03/26/23 12/17/23 Rx Have you fallen in the past year?: No Nurse's Note: FU to discuss breast reconstruction PFSH Medical History Deformity of reconstructed breast GERD (gastroesophageal reflux disease) Resistance to other single specified antibiotic History of bilateral removal of breast implants Infection of breast implant Exposed breast implant Failed skin graft Failure of flap graft Methicillin resistant Staphylococcus epidermidis infection Nonhealing surgical wound PONV (postoperative nausea and vomiting) Cancer phobia Wears contact lenses Wears glasses Alcohol use Migraine headache Gastric reflux Prophylactic ovary removal Prophylactic breast removal 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 Genetic 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 Cancer phobia Monoallelic mutation of DEISY gene Family history of breast cancer Former smoker Ptosis of both breasts Pneumonia Frequent headaches Allergies Surgical History History of prophylactic mastectomy of both breasts Status post implant removal from both breasts History of reconstruction of both breasts Hx of bilateral mastectomy History of placement of ear tubes History of bilateral breast implants Status post bilateral breast reconstruction Status post bilateral mastectomy History of bilateral oophorectomy History of bladder surgery History of hysterectomy Family History Grandmother Breast cancer Aunt Breast cancer Father Diabetes Social History Smoking Status: Former smoker alcohol intake: current substance use type: does not use additional social history: Does Not Take Aspirin Does Take Ibuprofen As Needed HPI 2 W FU Details: HPI: Irene Lopez is a 47-year-old female that presents today for follow-up following her breast reconstruction with Dr. Barrett who is her plastic surgeon previously at our practice. Side of Diagnosis: Gene mutation, underwent prophylactic mastectomies and reconstruction (no history of chemo or radiation) Prior Abdominal Surgery: Hysterectomy (prophylactic related to the gene mutations, through a transverse Pfannenstiel incision) Bra Size: Would like to be at least a D cup. Feels like her breasts are currently too small. Per chart review, patient had had her last surgery with Dr. Barrett on 21 January 2023 where she underwent the fall: left breast reconstruction with removal of saline tissue expanders and skye cement of cohesive gel implant (630 ml) with MTF FlexHD acellular dermal matrix graft, (Pliable Shaped Perforated, Large, Thick, 13x22 cm, 2 pieces) and revision reconstructed left breast with superior capsulotomy and excision excess mastect (more content not included)... Normal [facility] Plastic Surgery Visit Report on 12-03-2023 Plastic Surgery Visit Report [facility] [address], [address] [place] [address] OFFICE VISIT Date of Service: 12/03/23 MR#: [id number] Acct: [id number] Name: IRENE LOPEZ Rep #: [id number] : 1975 Provider: Dr. Marlon Allen MD Age/Sex: 47/F [place] [facility] [place] Status: Signed with Addenda ADDENDUM by Dr. Marlon Allen MD on 12/16/23 at 0910 Assessment and Plan (No Qualifiers) Assessment and Plan (1) History of reconstruction of both breasts: Status: Acute 12/16/23 0910 Date Marlon Allen MD cc: * Signed Intake Vital Signs 05/19/23 15:21 12/03/23 15:45 12/03/23 16:17 Height 5 ft 6 in 5 ft 6 in 5 ft 6 in Weight: 182 lb BMI 29.3 BP 132/77 H Blood Pressure Location Rt brachial Position Sitting Respiration 16 16 Pulse 88 74 Pulse Source Monitor Monitor Temp 97.4 F L 98.0 F Temp Source Temporal Temporal Pulse Oximetry (%) 96 98 Oxygen Delivery Method room air room air Intake Visit Reasons: 6 M FU Chief Complaint: small areas of indentation bilateral breasts Allergies Penicillins (PCN) Allergy (Verified 05/19/23 15:21) Hives, RASH PFSH Medical History Deformity of reconstructed breast GERD (gastroesophageal reflux disease) Resistance to other single specified antibiotic History of bilateral removal of breast implants Infection of breast implant Exposed breast implant Failed skin graft Failure of flap graft Methicillin resistant Staphylococcus epidermidis infection Nonhealing surgical wound PONV (postoperative nausea and vomiting) Cancer phobia Wears contact lenses Wears glasses Alcohol use Migraine headache Gastric reflux Prophylactic ovary removal Prophylactic breast removal 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 Genetic 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 Cancer phobia Monoallelic mutation of DEISY gene Family history of breast cancer Former smoker Ptosis of both breasts Pneumonia Frequent headaches Allergies Surgical History History of prophylactic mastectomy of both breasts Status post implant removal from both breasts History of reconstruction of both breasts Hx of bilateral mastectomy History of placement of ear tubes History of bilateral breast implants Status post bilateral breast reconstruction Status post bilateral mastectomy History of bilateral oophorectomy History of bladder surgery History of hysterectomy Family History Grandmother Breast cancer Aunt Breast cancer Father Diabetes Social History Smoking Status: Former smoker alcohol intake: current substance use type: does not use additional social history: Does Not Take Aspirin Does Take Ibuprofen As Needed HPI 6 M FU Details: HPI: Irene Lopez is a 47-year-old female that presents today for follow-up following her breast reconstruction with Dr. Barrett who is her plastic surgeon previously at our practice. Side of Diagnosis: Gene mutation, underwent prophylactic mastectomies and reconstruction (no history of chemo or radiation) Prior Abdominal Surgery: Hysterectomy (prophylactic related to the gene mutations, through a transverse Pfannenstiel incision) Bra Size: Would like to be at least a D cup. Feels like her breasts are currently too small. Per chart review, patient had had her last surgery with Dr. 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 She has noticed wrinkling of the implants on both sides, worse on the right. She (more content not included)... Normal [facility] Basophil percentageOrdered B y: Rachel Beard on 01-23-2023 Chloride [Moles/Vol] 106 mmol/L 98-107 [facility] Glucose [Mass/Vol] 114 mg/dL 74-106 [facility] Comment on above: Fasting Glucose resu lt from 100 to 125 mg/dL suggests IMPAIRED HOMEOSTASIS per A.D.A. criteria. Potassium [Moles/Vol] 4.1 mmol/L 3.5-5.1 [facility] Sodium [Moles/Vol] 141 mmol/L 136-145 [facility] WBC (Bld) [#/Vol] 9.3 10*3/uL 4.4-11.0 [facility] Blood erythrocytes count (nu mber/volume)Ordered By: Rachel Beard on 01-23-2023 RBC (Bld) [#/Vol] 3.68 10*6/uL 4.2-5.4 [facility] Blood hemoglobin measurement (mass/volume)Ordered By: Rachel Beard on 01-23-2023 Hemoglobin (Bld) [Mass/Vol] 11.5 g/dL 12.0-15.0 [facility] Blood platelet mean volumeOr dered By: Rachel Beard on 01-23-2023 Platelet mean volume (Bld) [Entitic vol] 11.3 fL 6.2-12.0 [facility] Determination of erythrocyte mean corpuscular volume (MCV)Ordered By: Rachel Beard on 01-23-2023 MCV (RBC) [Entitic vol] 100.5 fL 81-99 [facility] Hematocrit Auto (Bld) [Volum e fraction]Ordered By: Rachel Beard on 01-23-2023 Hematocrit (Bld) [Volume fraction] 37.0 % 37-47 [facility] Laboratory - Chemistry and C hemistry - challengeOrdered By: Rachel Beard on 01-23-2023 CO2 [Moles/Vol] 30.0 mmol/L 21.0-32.0 [facility] Urea nitrogen/Creatinine [Mass ratio] 20.0 mg/mg 10-20 [facility] Laboratory - Hematology and Cell countsOrdered By: Rachel Beard on 01-23-2023 Erythrocyte distribution width (RBC) [Entitic vol] 47.8 fL 35.1-43.9 [facility] Erythrocyte distribution width (RBC) [Ratio] 12.9 % 11.6-14.6 [facility] MCH (RBC) [Entitic mass] 31.3 pg 27.0-32.0 [facility] MCHC Auto (RBC) [Mass/Vol]Or dered By: Rachel Beard on 01-23-2023 MCHC (RBC) [Mass/Vol] 31.1 g/dL 32-36 [facility] No Panel InformationOrdered By: Rachel Beard on 01-23-2023 Estimated Creatinine Clearance Calc 84.94 ml/min [facility] Estimated GFR (MDRD) Amer 105 mL/min >60 [facility] Comment on above: GFR Calc Estimated GFR (MDRD) Non-Af Amer 87 mL/min >60 [facility] Comment on above: Non- GFR Calc Platelets bldOrdered By: Iggy Beard on 01-23-2023 Platelets (Bld) [#/Vol] 189 10*3/uL 150-450 [facility] Serum or plasma calcium deneen urement (mass/volume)Ordered By: Rachel Beard on 01-23-2023 Calcium [Mass/Vol] 8.4 mg/dL 8.5-10.1 [facility] Serum or plasma creatinine m easurement (mass/volume)Ordered By: Rachel Beard on 01-23-2023 Creatinine [Mass/Vol] 0.75 mg/dL 0.55-1.02 [facility] Comment on above: The validity of the calculated GFR & GFRAA in patients over 70 years has not been determined. Clinical correlation is essential. Serum or plasma urea nitroge n measurement (mass/volume)Ordered By: Rachel Beard on 01-23-2023 Urea nitrogen [Mass/Vol] 15 mg/dL 7-18 [facility] Thin prep Papanicolaou smear with manual screeningOrdered By: Rachel Beard on 01-23-2023 Thin prep Papanicolaou smear with manual screening 5 5-15 [facility] Serum or plasma transthyreti n measurement (mass/volume)Ordered By: Zenaida Barrett on 01-22-2023 Prealbumin [Mass/Vol] 20.8 mg/dL 20.0-40.0 [facility] Serum or plasma trough vanco mycin levelOrdered By: Zenadia Barrett on 01-22-2023 Vancomycin trough [Mass/Vol] 8.0 ug/mL 5.0-15.0 [facility] Comment on above: VANCOMYCIN STANDARED DRUG THERAPY TROUGH LEVEL: 5.0 - 15.0 mg/L VANCOMYCIN HIGH INTENSITY THERAPY TROUGH LEVEL: 15.0 - 20.0 mg/L High Intensity therapy recommended for serious lifethreatening infections include:- Ojootcujna-Suipukyxxnwl-Fpqxezxfy (Ventilator/Healtcare Associated)-Sepsis PLEASE CONTACT PHARMACY SERVICES (#0126) FOR INTERPRETATIONOF RESULTS. Glucose Glucometer (BldC) [M ass/Vol]Ordered By: Zenaida Barrett on 01-21-2023 Glucose [Mass/Vol] 83 mg/dL 74-106 [facility] Comment on above: MANAGEMENT OF PATIEN T CARE PER NURSING PROTOCOL Gram stain for investigation of transfusion reactionOrdered By: Zenaida Barrett on 01-21-2023 Microscopic observation Gram stain Nom (Unsp spec) [facility] Laboratory - Chemistry and C hemistry - challengeOrdered By: Zenaida Barrett on 01-16-2023 Magnesium [Mass/Vol] 2.3 mg/dL 1.6-2.6 [facility] Basophil percentageOrdered B y: Rachel Beard on 10-23-2022 Bilirubin [Mass/Vol] 0.20 mg/dL 0.20-1.00 [facility] Comment on above: For patients on eltr ombopag therapy, use of Dimension [place] TBIL is not recommended. Chloride [Moles/Vol] 105 mmol/L 98-107 [facility] Glucose [Mass/Vol] 151 mg/dL 74-106 [facility] Comment on above: Fasting Glucose resu lt greater than or equal to 126 mg/dL suggests DIABETES MELLITUS per A.D.A. criteria. Potassium [Moles/Vol] 3.9 mmol/L 3.5-5.1 [facility] Comment on above: Slight Hemolysis, Re sult may be falsely increased. Protein [Mass/Vol] 7.5 g/dL 6.4-8.2 [facility] Sodium [Moles/Vol] 138 mmol/L 136-145 [facility] Laboratory - Chemistry and C hemistry - challengeOrdered By: Rachel Beard on 10-23-2022 ALP [Catalytic activity/Vol] 130 U/L 45-117 [facility] ALT [Catalytic activity/Vol] 21 U/L 13-56 [facility] CO2 [Moles/Vol] 27.0 mmol/L 21.0-32.0 [facility] Globulin (S) [Mass/Vol] 4.0 g/dL 2.2-4.2 [facility] Urea nitrogen/Creatinine [Mass ratio] 28.3 mg/mg 10-20 [facility] No Panel InformationOrdered By: Rachel Beard on 10-23-2022 Estimated GFR (MDRD) Amer 102 mL/min >60 [facility] Comment on above: GFR Calc Estimated GFR (MDRD) Non-Af Amer 84 mL/min >60 [facility] Comment on above: Non- GFR Calc Serum or plasma albumin deneen urement (mass/volume)Ordered By: Rachel Beard on 10-23-2022 Albumin [Mass/Vol] 3.5 g/dL 3.2-5.0 [facility] Serum or plasma albumin/glob ulin mass ratioOrdered By: Rachel Beard on 10-23-2022 Albumin/Globulin [Mass ratio] 0.9 {ratio} 0.9-2.4 [facility] Serum or plasma calcium deneen urement (mass/volume)Ordered By: Rachel Beard on 10-23-2022 Calcium [Mass/Vol] 9.2 mg/dL 8.5-10.1 [facility] Serum or plasma creatinine m easurement (mass/volume)Ordered By: Rachel Beard on 10-23-2022 Creatinine [Mass/Vol] 0.78 mg/dL 0.55-1.02 [facility] Comment on above: The validity of the calculated GFR & GFRAA in patients over 70 years has not been determined. Clinical correlation is essential. Serum or plasma urea nitroge n measurement (mass/volume)Ordered By: Rachel Beard on 10-23-2022 Urea nitrogen [Mass/Vol] 22 mg/dL 7-18 [facility] Thin prep Papanicolaou smear with manual screeningOrdered By: Rachel Beard on 10-23-2022 Thin prep Papanicolaou smear with manual screening 16 U/L 15-37 [facility] Comment on above: Slight Hemolysis, Re sult may be falsely increased. Thin prep Papanicolaou smear with manual screening 6 5-15 [facility] Basophil percentageOrdered B y: Zenaida Barrett on 10-05-2022 Chloride [Moles/Vol] 106 mmol/L 98-107 [facility] Glucose [Mass/Vol] 107 mg/dL 74-106 [facility] Comment on above: Slight Lipemia, Resu lt may be falsely increased.Fasting Glucose result from 100 to 125 mg/dL suggests IMPAIRED HOMEOSTASIS per A.D.A. criteria. Potassium [Moles/Vol] 4.0 mmol/L 3.5-5.1 [facility] Comment on above: Slight Hemolysis, Re sult may be falsely increased.-Slight Lipemia, Result may be falsely increased. Sodium [Moles/Vol] 140 mmol/L 136-145 [facility] WBC (Bld) [#/Vol] 10.7 10*3/uL 4.4-11.0 [facility] Blood erythrocytes count (nu mber/volume)Ordered By: Zenaida Barrett on 10-05-2022 RBC (Bld) [#/Vol] 3.44 10*6/uL 4.2-5.4 [facility] Blood hemoglobin measurement (mass/volume)Ordered By: Zenaida Barrett on 10-05-2022 Hemoglobin (Bld) [Mass/Vol] 11.1 g/dL 12.0-15.0 [facility] Blood platelet mean volumeOr dered By: Zenaida Barrett on 10-05-2022 Platelet mean volume (Bld) [Entitic vol] 11.6 fL 6.2-12.0 [facility] Determination of erythrocyte mean corpuscular volume (MCV)Ordered By: Zenaida Barrett on 10-05-2022 MCV (RBC) [Entitic vol] 98.8 fL 81-99 [facility] Hematocrit Auto (Bld) [Volum e fraction]Ordered By: Zenaida Barrett on 10-05-2022 Hematocrit (Bld) [Volume fraction] 34.0 % 37-47 [facility] Laboratory - Chemistry and C hemistry - challengeOrdered By: Zenaida Barrett on 10-05-2022 CO2 [Moles/Vol] 29.0 mmol/L 21.0-32.0 [facility] Comment on above: Slight Lipemia, Resu lt may be falsely increased. Urea nitrogen/Creatinine [Mass ratio] 21.0 mg/mg 10-20 [facility] Laboratory - Hematology and Cell countsOrdered By: Zenaida Barrett on 10-05-2022 Erythrocyte distribution width (RBC) [Entitic vol] 46.0 fL 35.1-43.9 [facility] Erythrocyte distribution width (RBC) [Ratio] 12.9 % 11.6-14.6 [facility] MCH (RBC) [Entitic mass] 32.3 pg 27.0-32.0 [facility] MCHC Auto (RBC) [Mass/Vol]Or dered By: Zenaida Barrett on 10-05-2022 MCHC (RBC) [Mass/Vol] 32.6 g/dL 32-36 [facility] No Panel InformationOrdered By: Zenaida Barrett on 10-05-2022 Estimated Creatinine Clearance Calc 84.75 ml/min [facility] Estimated GFR (MDRD) Amer 104 mL/min >60 [facility] Comment on above: GFR Calc Estimated GFR (MDRD) Non-Af Amer 86 mL/min >60 [facility] Comment on above: Non- GFR Calc Platelets bldOrdered By: Dominik Barrett on 10-05-2022 Platelets (Bld) [#/Vol] 194 10*3/uL 150-450 [facility] Serum or plasma calcium deneen urement (mass/volume)Ordered By: Zenaida Barrett on 10-05-2022 Calcium [Mass/Vol] 8.4 mg/dL 8.5-10.1 [facility] Comment on above: Slight Lipemia, Resu lt may be falsely increased. Serum or plasma creatinine m easurement (mass/volume)Ordered By: Zenaida Barrett on 10-05-2022 Creatinine [Mass/Vol] 0.76 mg/dL 0.55-1.02 [facility] Comment on above: Slight Lipemia, Resu lt may be falsely increased.The validity of the calculated GFR & GFRAA in patients over 70 years has not been determined. Clinical correlation is essential. Serum or plasma urea nitroge n measurement (mass/volume)Ordered By: Zenaida Barrett on 10-05-2022 Urea nitrogen [Mass/Vol] 16 mg/dL 7-18 [facility] Comment on above: Slight Lipemia, Resu lt may be falsely increased. Thin prep Papanicolaou smear with manual screeningOrdered By: Zenaida Barrett on 10-05-2022 Thin prep Papanicolaou smear with manual screening 5 5-15 [facility] Serum or plasma transthyreti n measurement (mass/volume)Ordered By: Zenaida Barrett on 10-04-2022 Prealbumin [Mass/Vol] 25.3 mg/dL 20.0-40.0 [facility] Vancomycin troughOrdered By: Zenaida Barrett on 10-04-2022 Vancomycin trough [Mass/Vol] 9.6 ug/mL 5.0-15.0 [facility] Comment on above: VANCOMYCIN STANDARED DRUG THERAPY TROUGH LEVEL: 5.0 - 15.0 mg/L VANCOMYCIN HIGH INTENSITY THERAPY TROUGH LEVEL: 15.0 - 20.0 mg/L High Intensity therapy recommended for serious lifethreatening infections include:- Wkmkrhnqbo-Gjzyvfuspqhh-Iryihajfi (Ventilator/Healtcare Associated)-Sepsis PLEASE CONTACT PHARMACY SERVICES (#6136) FOR INTERPRETATIONOF RESULTS. Glucose Glucometer (BldC) [M ass/Vol]Ordered By: Zenaida Barrett on 10-03-2022 Glucose [Mass/Vol] 83 mg/dL 74-106 [facility] Comment on above: MANAGEMENT OF PATIEN T CARE PER NURSING PROTOCOL Laboratory - Chemistry and C hemistry - challengeOrdered By: Manuel Fuller on 10-03-2022 Magnesium [Mass/Vol] 2.0 mg/dL 1.6-2.6 [facility] Basophil percentageOrdered B y: Rachel Beard on 09-23-2022 Bilirubin [Mass/Vol] 0.40 mg/dL 0.20-1.00 [facility] Comment on above: For patients on eltr ombopag therapy, use of Dimension [place] TBIL is not recommended. Chloride [Moles/Vol] 110 mmol/L 98-107 [facility] Glucose [Mass/Vol] 137 mg/dL 74-106 [facility] Comment on above: Fasting Glucose resu lt greater than or equal to 126 mg/dL suggests DIABETES MELLITUS per A.D.A. criteria. Potassium [Moles/Vol] 3.9 mmol/L 3.5-5.1 [facility] Comment on above: Slight Hemolysis, Re sult may be falsely increased. Protein [Mass/Vol] 7.4 g/dL 6.4-8.2 [facility] Sodium [Moles/Vol] 140 mmol/L 136-145 [facility] WBC (Bld) [#/Vol] 6.6 10*3/uL 4.4-11.0 [facility] Blood erythrocytes count (nu mber/volume)Ordered By: Rachel Beard on 09-23-2022 RBC (Bld) [#/Vol] 4.04 10*6/uL 4.2-5.4 [facility] Blood hemoglobin measurement (mass/volume)Ordered By: Rachel Beard on 09-23-2022 Hemoglobin (Bld) [Mass/Vol] 13.1 g/dL 12.0-15.0 [facility] Blood platelet mean volumeOr dered By: Rachel Beard on 09-23-2022 Platelet mean volume (Bld) [Entitic vol] 11.5 fL 6.2-12.0 [facility] Determination of erythrocyte mean corpuscular volume (MCV)Ordered By: Rachel Beard on 09-23-2022 MCV (RBC) [Entitic vol] 93.3 fL 81-99 [facility] Hematocrit Auto (Bld) [Volum e fraction]Ordered By: Rachel Beard on 09-23-2022 Hematocrit (Bld) [Volume fraction] 37.7 % 37-47 [facility] Laboratory - Chemistry and C hemistry - challengeOrdered By: Rachel Beard on 09-23-2022 ALP [Catalytic activity/Vol] 113 U/L 45-117 [facility] ALT [Catalytic activity/Vol] 21 U/L 13-56 [facility] CO2 [Moles/Vol] 25.0 mmol/L 21.0-32.0 [facility] Globulin (S) [Mass/Vol] 3.7 g/dL 2.2-4.2 [facility] Urea nitrogen/Creatinine [Mass ratio] 22.0 mg/mg 10-20 [facility] Laboratory - Hematology and Cell countsOrdered By: Rachle Beard on 09-23-2022 Erythrocyte distribution width (RBC) [Entitic vol] 43.1 fL 35.1-43.9 [facility] Erythrocyte distribution width (RBC) [Ratio] 12.6 % 11.6-14.6 [facility] MCH (RBC) [Entitic mass] 32.4 pg 27.0-32.0 [facility] [Mass/Vol]Or dered By: Rachel Beard on 09-23-2022 MCHC (RBC) [Mass/Vol] 34.7 g/dL 32-36 [facility] No Panel InformationOrdered By: Rachel Beard on 09-23-2022 Estimated GFR (MDRD) Amer 85 mL/min >60 [facility] Comment on above: GFR Calc Estimated GFR (MDRD) Non-Af Amer 70 mL/min >60 [facility] Comment on above: Non- GFR Calc Platelets bldOrdered By: Iggy Beard on 09-23-2022 Platelets (Bld) [#/Vol] 223 10*3/uL 150-450 [facility] Serum or plasma albumin deneen urement (mass/volume)Ordered By: Rachel Beard on 09-23-2022 Albumin [Mass/Vol] 3.7 g/dL 3.2-5.0 [facility] Serum or plasma albumin/glob ulin mass ratioOrdered By: Rachel Beard on 09-23-2022 Albumin/Globulin [Mass ratio] 1.0 {ratio} 0.9-2.4 [facility] Serum or plasma calcium deneen urement (mass/volume)Ordered By: Rachel Beard on 09-23-2022 Calcium [Mass/Vol] 8.4 mg/dL 8.5-10.1 [facility] Serum or plasma creatinine m easurement (mass/volume)Ordered By: Rachel Beard on 09-23-2022 Creatinine [Mass/Vol] 0.91 mg/dL 0.55-1.02 [facility] Comment on above: The validity of the calculated GFR & GFRAA in patients over 70 years has not been determined. Clinical correlation is essential. Serum or plasma urea nitroge n measurement (mass/volume)Ordered By: Rachel Beard on 09-23-2022 Urea nitrogen [Mass/Vol] 20 mg/dL 7-18 [facility] Thin prep Papanicolaou smear with manual screeningOrdered By: Rachel Beard on 09-23-2022 Thin prep Papanicolaou smear with manual screening 25 U/L 15-37 [facility] Comment on above: Slight Hemolysis, Re sult may be falsely increased. Thin prep Papanicolaou smear with manual screening 5 5-15 [facility] Basophil percentageOrdered B y: Rachel Beard on 07-24-2022 Bilirubin [Mass/Vol] 0.30 mg/dL 0.20-1.00 [facility] Comment on above: For patients on eltr ombopag therapy, use of Dimension [place] TBIL is not recommended. Chloride [Moles/Vol] 107 mmol/L 98-107 [facility] Glucose [Mass/Vol] 103 mg/dL 74-106 [facility] Comment on above: Fasting Glucose resu lt from 100 to 125 mg/dL suggests IMPAIRED HOMEOSTASIS per A.D.A. criteria. Potassium [Moles/Vol] 4.1 mmol/L 3.5-5.1 [facility] Protein [Mass/Vol] 7.3 g/dL 6.4-8.2 [facility] Sodium [Moles/Vol] 140 mmol/L 136-145 [facility] WBC (Bld) [#/Vol] 7.3 10*3/uL 4.4-11.0 [facility] Blood erythrocytes count (nu mber/volume)Ordered By: Rachel Beard on 07-24-2022 RBC (Bld) [#/Vol] 4.01 10*6/uL 4.2-5.4 [facility] Blood hemoglobin measurement (mass/volume)Ordered By: Rachel Beard on 07-24-2022 Hemoglobin (Bld) [Mass/Vol] 12.5 g/dL 12.0-15.0 [facility] Blood platelet mean volumeOr dered By: Rachel Beard on 07-24-2022 Platelet mean volume (Bld) [Entitic vol] 11.0 fL 6.2-12.0 [facility] Determination of erythrocyte mean corpuscular volume (MCV)Ordered By: Rachel Beard on 07-24-2022 MCV (RBC) [Entitic vol] 94.8 fL 81-99 [facility] Hematocrit Auto (Bld) [Volum e fraction]Ordered By: Rachel Beard on 07-24-2022 Hematocrit (Bld) [Volume fraction] 38.0 % 37-47 [facility] Laboratory - Chemistry and C hemistry - challengeOrdered By: Rachel Beard on 07-24-2022 ALP [Catalytic activity/Vol] 114 U/L 45-117 [facility] ALT [Catalytic activity/Vol] 23 U/L 13-56 [facility] CO2 [Moles/Vol] 26.0 mmol/L 21.0-32.0 [facility] Globulin (S) [Mass/Vol] 3.4 g/dL 2.2-4.2 [facility] Urea nitrogen/Creatinine [Mass ratio] 27.4 mg/mg 10-20 [facility] Laboratory - Hematology and Cell countsOrdered By: Rachel Beard on 07-24-2022 Erythrocyte distribution width (RBC) [Entitic vol] 43.9 fL 35.1-43.9 [facility] Erythrocyte distribution width (RBC) [Ratio] 12.7 % 11.6-14.6 [facility] MCH (RBC) [Entitic mass] 31.2 pg 27.0-32.0 [facility] MCHC Auto (RBC) [Mass/Vol]Or dered By: Rachel Beard on 07-24-2022 MCHC (RBC) [Mass/Vol] 32.9 g/dL 32-36 [facility] No Panel InformationOrdered By: Rachel Beard on 07-24-2022 Estimated GFR (MDRD) Amer 109 mL/min >60 [facility] Comment on above: GFR Calc Estimated GFR (MDRD) Non-Af Amer 90 mL/min >60 [facility] Comment on above: Non- GFR Calc Platelets bldOrdered By: Iggy Beard on 07-24-2022 Platelets (Bld) [#/Vol] 218 10*3/uL 150-450 [facility] Serum or plasma albumin deneen urement (mass/volume)Ordered By: Rachel Beard on 07-24-2022 Albumin [Mass/Vol] 3.9 g/dL 3.2-5.0 [facility] Serum or plasma albumin/glob ulin mass ratioOrdered By: Rachel Beard on 07-24-2022 Albumin/Globulin [Mass ratio] 1.1 {ratio} 0.9-2.4 [facility] Serum or plasma calcium deneen urement (mass/volume)Ordered By: Rachel Beard on 07-24-2022 Calcium [Mass/Vol] 9.3 mg/dL 8.5-10.1 [facility] Serum or plasma creatinine m easurement (mass/volume)Ordered By: Rachel Beard on 07-24-2022 Creatinine [Mass/Vol] 0.73 mg/dL 0.55-1.02 [facility] Comment on above: The validity of the calculated GFR & GFRAA in patients over 70 years has not been determined. Clinical correlation is essential. Serum or plasma urea nitroge n measurement (mass/volume)Ordered By: Rachel Beard on 07-24-2022 Urea nitrogen [Mass/Vol] 20 mg/dL 7-18 [facility] Thin prep Papanicolaou smear with manual screeningOrdered By: Rachel Beard on 07-24-2022 Thin prep Papanicolaou smear with manual screening 17 U/L 15-37 [facility] Thin prep Papanicolaou smear with manual screening 7 5-15 [facility] Fungus stainOrdered By: Dr. Barrett on 06-11-2022 Fungus identified Fungus stain Nom (Unsp spec) [facility] Fungus identified Fungus stain Nom (Unsp spec) [facility] Anaerobic cultureOrdered By: Dr. Barrett on 06-02-2022 Bacteria identified Anaer cx Nom (Unsp spec) No anaerobic bacteria isolated. [facility] Basophil percentageOrdered B y: Dr. Barrett on 06-02-2022 WBC (Bld) [#/Vol] 6.1 10*3/uL 4.4-11.0 [facility] Blood erythrocytes count (nu mber/volume)Ordered By: Dr. Barrett on 06-02-2022 RBC (Bld) [#/Vol] 3.35 10*6/uL 4.2-5.4 [facility] Blood hemoglobin measurement (mass/volume)Ordered By: Dr. Barrett on 06-02-2022 Hemoglobin (Bld) [Mass/Vol] 10.4 g/dL 12.0-15.0 [facility] Blood platelet mean volumeOr dered By: Dr. Barrett on 06-02-2022 Platelet mean volume (Bld) [Entitic vol] 10.4 fL 6.2-12.0 [facility] Determination of erythrocyte mean corpuscular volume (MCV)Ordered By: Dr. Barrett on 06-02-2022 MCV (RBC) [Entitic vol] 99.4 fL 81-99 [facility] Hematocrit Auto (Bld) [Volum e fraction]Ordered By: Dr. Barrett on 06-02-2022 Hematocrit (Bld) [Volume fraction] 33.3 % 37-47 [facility] Laboratory - Hematology and Cell countsOrdered By: Dr. Barrett on 06-02-2022 Erythrocyte distribution width (RBC) [Entitic vol] 46.2 fL 35.1-43.9 [facility] Erythrocyte distribution width (RBC) [Ratio] 12.8 % 11.6-14.6 [facility] MCH (RBC) [Entitic mass] 31.0 pg 27.0-32.0 [facility] MCHC Auto (RBC) [Mass/Vol]Or dered By: Dr. Barrett on 06-02-2022 MCHC (RBC) [Mass/Vol] 31.2 g/dL 32-36 [facility] Platelets bldOrdered By: Dr. Barrett on 06-02-2022 Platelets (Bld) [#/Vol] 210 10*3/uL 150-450 [facility] Bacteria identified Cx Nom ( Wound)Ordered By: Dr. Barrett on 06-01-2022 Wound Culture Staphylococcus epidermidis [facility] Basophil percentageOrdered B y: Dr. Barrett on 05-31-2022 Chloride [Moles/Vol] 107 mmol/L 98-107 [facility] Glucose [Mass/Vol] 113 mg/dL 74-106 [facility] Comment on above: Fasting Glucose resu lt from 100 to 125 mg/dL suggests IMPAIRED HOMEOSTASIS per A.D.A. criteria. Potassium [Moles/Vol] 4.3 mmol/L 3.5-5.1 [facility] Sodium [Moles/Vol] 142 mmol/L 136-145 [facility] Gram stain for investigation of transfusion reactionOrdered By: Dr. Barrett on 05-31-2022 Microscopic observation Gram stain Nom (Unsp spec) [facility] Laboratory - Chemistry and C hemistry - challengeOrdered By: Dr. Barrett on 05-31-2022 CO2 [Moles/Vol] 28.0 mmol/L 21.0-32.0 [facility] Urea nitrogen/Creatinine [Mass ratio] 18.9 mg/mg 10-20 [facility] No Panel InformationOrdered By: Dr. Barrett on 05-31-2022 Estimated Creatinine Clearance Calc 93.34 ml/min [facility] Estimated GFR (MDRD) Amer 117 mL/min >60 [facility] Comment on above: GFR Calc Estimated GFR (MDRD) Non-Af Amer 97 mL/min >60 [facility] Comment on above: Non- GFR Calc Serum or plasma calcium deneen urement (mass/volume)Ordered By: Dr. Barrett on 05-31-2022 Calcium [Mass/Vol] 8.7 mg/dL 8.5-10.1 [facility] Serum or plasma creatinine m easurement (mass/volume)Ordered By: Dr. Barrett on 05-31-2022 Creatinine [Mass/Vol] 0.69 mg/dL 0.55-1.02 [facility] Comment on above: The validity of the calculated GFR & GFRAA in patients over 70 years has not been determined. Clinical correlation is essential. Serum or plasma transthyreti n measurement (mass/volume)Ordered By: Dr. Barrett on 05-31-2022 Prealbumin [Mass/Vol] 18.7 mg/dL 20.0-40.0 [facility] Serum or plasma urea nitroge n measurement (mass/volume)Ordered By: Dr. Barrett on 05-31-2022 Urea nitrogen [Mass/Vol] 13 mg/dL 7-18 [facility] Thin prep Papanicolaou smear with manual screeningOrdered By: Dr. Barrett on 05-31-2022 Thin prep Papanicolaou smear with manual screening 7 5-15 [facility] Vancomycin troughOrdered By: Dr. Barrett on 05-31-2022 Vancomycin trough [Mass/Vol] 9.8 ug/mL 5.0-15.0 [facility] Comment on above: VANCOMYCIN STANDARED DRUG THERAPY TROUGH LEVEL: 5.0 - 15.0 mg/L VANCOMYCIN HIGH INTENSITY THERAPY TROUGH LEVEL: 15.0 - 20.0 mg/L High Intensity therapy recommended for serious lifethreatening infections include:- Fqjkcauarh-Avloklndzvha-Gbdiptszf (Ventilator/Healtcare Associated)-Sepsis PLEASE CONTACT PHARMACY SERVICES (#[id number]) FOR INTERPRETATIONOF RESULTS. Glucose Glucometer (BldC) [M ass/Vol]Ordered By: Dr. Barrett on 05-30-2022 Glucose [Mass/Vol] 88 mg/dL 74-106 [facility] Comment on above: MANAGEMENT OF PATIEN T CARE PER NURSING PROTOCOL Laboratory - Chemistry and C hemistry - challengeOrdered By: Dr. Guan on 05-27-2022 Magnesium [Mass/Vol] 2.2 mg/dL 1.6-2.6 [facility] Anaerobic cultureOrdered By: Rachel Beard on 05-16-2022 Bacteria identified Anaer cx Nom (Unsp spec) No anaerobic bacteria isolated. [facility] Bacteria identified Cx Nom ( Wound)Ordered By: Rachel Beard on 05-14-2022 Wound Culture Staphylococcus epidermidis [facility] Gram stain for investigation of transfusion reactionOrdered By: Rachel Beard on 05-12-2022 Microscopic observation Gram stain Nom (Unsp spec) [facility] Laboratory - Cytologyon 04-17 Cytology report Cyto stain.thin prep Doc (Cvx/Vag) [facility] [employer] Work Phone: [employer]ST[employer]ER - Office Visiton 04-17 [employer] INST[employer]ER - Office Visit Diagnoses/Problems Assessed Vaginal Papanicolaou smear (V76.47) (Z12.72) Pap test, as part of routine gynecological examination (V76.2) (Z01.419) 10/29/2021: LGSIL 04/02/2021: LGSIL 02/06/2020:Negative 03/15/2018; WNL 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 Annual 2. History of mild dysplasia of the vagina Follow-up in 6 months for repeat Pap. Chief Complaint Patient is here for her yearly exam and pap test. Hysterectomy in 2018. Patient had bilateral mastectomy with reconstruction on [...] 1 TABLET DAILY. Vitals Vital Signs Recorded: 07May2022 08:45AM [id number] Kzreaklnj14 Height5 ft 5 in Haucvm30.3 kg BMI Jeskxzjddc43.99 kg/m2 BSA Calculated1.84 Tobacco Useb) No PHQ-2 [...] PHYSICAL EXAMINATION (more content not included)... Normal [facility] Tobacco Screening.on 023 Adult depression screening assessment No [facility] [employer] Phone: Fall risk assessment a) No falls within the last year [employer] Phone: Last menstrual period start date Hysterectomy 2019 [facility] Work Phone: Tobacco use status CPHS b) No [facility] Work Phone: Basophil percentageOrdered B y: Dr. Barrett on 04-23-2022 WBC (Bld) [#/Vol] 7.9 10*3/uL 4.4-11.0 [facility] Blood erythrocytes count (nu mber/volume)Ordered By: Dr. Barrett on 04-23-2022 RBC (Bld) [#/Vol] 3.57 10*6/uL 4.2-5.4 [facility] Blood hemoglobin measurement (mass/volume)Ordered By: Dr. Barrett on 04-23-2022 Hemoglobin (Bld) [Mass/Vol] 11.5 g/dL 12.0-15.0 [facility] Blood platelet mean volumeOr dered By: Dr. Barrett on 04-23-2022 Platelet mean volume (Bld) [Entitic vol] 10.4 fL 6.2-12.0 [facility] Determination of erythrocyte mean corpuscular volume (MCV)Ordered By: Dr. Barrett on 04-23-2022 MCV (RBC) [Entitic vol] 97.8 fL 81-99 [facility] Hematocrit Auto (Bld) [Volum e fraction]Ordered By: Dr. Barrett on 04-23-2022 Hematocrit (Bld) [Volume fraction] 34.9 % 37-47 [facility] Laboratory - Hematology and Cell countsOrdered By: Dr. Barrett on 04-23-2022 Erythrocyte distribution width (RBC) [Entitic vol] 46.1 fL 35.1-43.9 [facility] Erythrocyte distribution width (RBC) [Ratio] 12.9 % 11.6-14.6 [facility] MCH (RBC) [Entitic mass] 32.2 pg 27.0-32.0 [facility] MCHC Auto (RBC) [Mass/Vol]Or dered By: Dr. Barrett on 04-23-2022 MCHC (RBC) [Mass/Vol] 33.0 g/dL 32-36 [facility] Platelets bldOrdered By: Dr. Barrett on 04-23-2022 Platelets (Bld) [#/Vol] 279 10*3/uL 150-450 [facility] Basophil percentageOrdered B y: Dr. Barrett on 04-14-2022 Chloride [Moles/Vol] 105 mmol/L 98-107 [facility] Glucose [Mass/Vol] 171 mg/dL 74-106 [facility] Comment on above: Fasting Glucose resu lt greater than or equal to 126 mg/dL suggests DIABETES MELLITUS per A.D.A. criteria. Potassium [Moles/Vol] 4.2 mmol/L 3.5-5.1 [facility] Sodium [Moles/Vol] 141 mmol/L 136-145 [facility] WBC (Bld) [#/Vol] 6.5 10*3/uL 4.4-11.0 [facility] Blood erythrocytes count (nu mber/volume)Ordered By: Dr. Barrett on 04-14-2022 RBC (Bld) [#/Vol] 2.72 10*6/uL 4.2-5.4 [facility] Blood hemoglobin measurement (mass/volume)Ordered By: Dr. Barrett on 04-14-2022 Hemoglobin (Bld) [Mass/Vol] 8.6 g/dL 12.0-15.0 [facility] Blood platelet mean volumeOr dered By: Dr. Barrett on 04-14-2022 Platelet mean volume (Bld) [Entitic vol] 9.9 fL 6.2-12.0 [facility] Determination of erythrocyte mean corpuscular volume (MCV)Ordered By: Dr. Barrett on 04-14-2022 MCV (RBC) [Entitic vol] 101.8 fL 81-99 [facility] Hematocrit Auto (Bld) [Volum e fraction]Ordered By: Dr. Barrett on 04-14-2022 Hematocrit (Bld) [Volume fraction] 27.7 % 37-47 [facility] Laboratory - Chemistry and C hemistry - challengeOrdered By: Dr. Barrett on 04-14-2022 CO2 [Moles/Vol] 33.0 mmol/L 21.0-32.0 [facility] Urea nitrogen/Creatinine [Mass ratio] 19.1 mg/mg 10-20 [facility] Laboratory - Hematology and Cell countsOrdered By: Dr. Barrett on 04-14-2022 Erythrocyte distribution width (RBC) [Entitic vol] 47.0 fL 35.1-43.9 [facility] Erythrocyte distribution width (RBC) [Ratio] 12.6 % 11.6-14.6 [facility] MCH (RBC) [Entitic mass] 31.6 pg 27.0-32.0 [facility] MCHC Auto (RBC) [Mass/Vol]Or dered By: Dr. Barrett on 04-14-2022 MCHC (RBC) [Mass/Vol] 31.0 g/dL 32-36 [facility] Comment on above: Delta: 32.8 on 04/12 No Panel InformationOrdered By: Dr. Barrett on 04-14-2022 Estimated Creatinine Clearance Calc 94.72 ml/min [facility] Estimated GFR (MDRD) Amer 119 mL/min >60 [facility] Comment on above: GFR Calc Estimated GFR (MDRD) Non-Af Amer 98 mL/min >60 [facility] Comment on above: Non- GFR Calc Platelets bldOrdered By: Dr. Barrett on 01-30-2023 Platelets (Bld) [#/Vol] 156 10*3/uL 150-450 [facility] Serum or plasma calcium deneen urement (mass/volume)Ordered By: Dr. Barrett on 04-14-2022 Calcium [Mass/Vol] 8.6 mg/dL 8.5-10.1 [facility] Serum or plasma creatinine m easurement (mass/volume)Ordered By: Dr. Barrett on 04-14-2022 Creatinine [Mass/Vol] 0.68 mg/dL 0.55-1.02 [facility] Comment on above: The validity of the calculated GFR & GFRAA in patients over 70 years has not been determined. Clinical correlation is essential. Serum or plasma urea nitroge n measurement (mass/volume)Ordered By: Dr. Barrett on 04-14-2022 Urea nitrogen [Mass/Vol] 13 mg/dL 7-18 [facility] Thin prep Papanicolaou smear with manual screeningOrdered By: Dr. Barrett on 04-14-2022 Thin prep Papanicolaou smear with manual screening 3 5-15 [facility] Serum or plasma transthyreti n measurement (mass/volume)Ordered By: Dr. Barrett on 04-12-2022 Prealbumin [Mass/Vol] 18.4 mg/dL 20.0-40.0 [facility] Glucose Glucometer (BldC) [M ass/Vol]Ordered By: Dr. Barrett on 04-11-2022 Glucose [Mass/Vol] 105 mg/dL 74-106 [facility] Comment on above: MANAGEMENT OF PATIEN T CARE PER NURSING PROTOCOL Laboratory - Chemistry and C hemistry - challengeOrdered By: Dr. Reece on 04-08-2022 Magnesium [Mass/Vol] 2.2 mg/dL 1.6-2.6 [facility] Comment on above: Slight Hemolysis, Re sult may be falsely increased. NOVEL CORONAVIRUSon 03-11-20 PERFORMED BY [facility] Normal [facility] Comment on above: Performed By: #### C COVID #### Testing performed at [address] [address] SARS-CoV-2 (COVID-19) RNA WILEY+probe Ql (Unsp spec) Not detected Normal NOT DETECTED [facility] Comment on above: Result Comment: Nega tive [...] #### C COVID #### [place] [address] NARRATIVE This test was perfor med using isothermal WILEY and has been approved as Emergency Use Authorization (EUA) for the qualitative detection [id number] nucleic acid. Normal [facility] Comment on above: Performed By: #### C COVID #### Testing performed at [place] [id number] BLOOD CULTURE, BACTERIALon 1 05-11-2021 BLOOD CULTURE, BACTERIAL Only 1 bottle drawn PATIENT: IRENE LOPEZ LOCATION: [facility]#: [id number] : 71 AGE: SEX: F ORDERED BY: SEAN MALAGON SOURCE: Blood COLLECTED: 03/09/22 23:35 ANTIBIOTICS AT [facility].: RECEIVED : 03/10/22 14:06 SITE: R E S U L T S BLOOD CULTURE, BACTERIAL FINAL 03/14/22 15:42 No Growth at 1 days No Growth at 2 days No Growth at 3 days NO GROWTH at 4 days - FINAL REPORT [facility] Comment on above: Performed By: #### B C #### [facility] [address] [address] [facility] [place] [address] BLOOD CULTURE, BACTERIAL Only 1 bottle drawn PATIENT: IRENE LOPEZ LOCATION: [facility] BILL#: [id number] : 71 AGE: SEX: F ORDERED BY: SEAN MALAGON SOURCE: Blood COLLECTED: 03/09/22 23:35 ANTIBIOTICS AT [facility].: RECEIVED : 03/10/22 14:08 SITE: ANTECUBITAL PERIPHERAL R E S U L T S BLOOD CULTURE, BACTERIAL FINAL 03/14/22 15:42 No Growth at 1 days No Growth at 2 days No Growth at 3 days NO GROWTH at 4 days - FINAL REPORT Normal [facility] Comment on above: Performed By: #### B [facility] #### [facility] [address] [place] [address] CBC AND DIFFERENTIALon 03-10 % AUTOMATED IMMATURE GRAN 0.9 % Normal 0.0 - 0.9 [facility] Comment on above: Result Comment: Erika ture Granulocyte Count (IG) includes promyelocytes, myelocytes and metamyelocytes but does not include bands. Percent differential counts (%) should be interpreted in the context of the absolute cell counts (cells/L). Performed By: #### T RPHS #### [place] [address] DIFFERENTIAL SEE MANUAL DIFF Normal [facility] Comment on above: Performed By: #### T RPHS #### [address] [address] Erythrocyte distribution width (RBC) [Ratio] 12.1 % Normal 11.5 - 14.5 [facility] Comment on above: Performed By: #### T RPHS #### [address] [address] Hematocrit (Bld) [Volume fraction] 34.9 % Low 36.0 - 46.0 [facility] Comment on above: Performed By: #### T RPHS #### [address] [address] Hemoglobin (Bld) [Mass/Vol] 11.7 g/dL Low 12.0 - 16.0 [facility] Comment on above: Performed By: #### T RPHS #### [address] [address] MCHC (RBC) [Mass/Vol] 33.5 g/dL Normal 32.0 - 36.0 [facility] Comment on above: Performed By: #### T RP #### [address] [address] MCV (RBC) [Entitic vol] 94 fL Normal 80 - 100 [facility] Comment on above: Performed By: #### T RP #### [address] [address] Platelets (Bld) [#/Vol] 176 10*3/uL Normal 150 - 450 [facility] Comment on above: Performed By: #### T RP #### [place] [id number] RBC 3.71 x10E12/L Low 4.00 - 5.20 [facility] Comment on above: Performed By: #### T RP #### [address] [address] WBC (Bld) [#/Vol] 9.4 10*3/uL Normal 4.4 - 11.3 [facility] Comment on above: Performed By: #### T RP #### [place] [address] COMPREHENSIVE PANELon 2021 Albumin [Mass/Vol] 3.9 g/dL Normal 3.4 - 5.0 [facility] Comment on above: Performed By: #### C MP #### [address] [address] ALP [Catalytic activity/Vol] 98 U/L Normal 33 - 110 [facility] Comment on above: Performed By: #### C MP #### [address] [address] ALT [Catalytic activity/Vol] 33 U/L Normal 7 - 45 [facility] Comment on above: Result Comment: Andria ents treated with Sulfasalazine may generate falsely decreased results for ALT. Performed By: #### C MP #### [address] [address] Anion gap [Moles/Vol] 14 mmol/L Normal 10 - 20 [facility] Comment on above: Performed By: #### C MP #### [address] [address] AST [Catalytic activity/Vol] 55 U/L High 9 - 39 [facility] Comment on above: Performed By: #### C MP #### [address] [address] Bilirubin [Mass/Vol] 0.7 mg/dL Normal 0.0 - 1.2 [facility] Comment on above: Performed By: #### C MP #### [address] [address] Calcium [Mass/Vol] 8.9 mg/dL Normal 8.6 - 10.3 [facility] Comment on above: Performed By: #### C MP #### [address] [address] Chloride [Moles/Vol] 104 mmol/L Normal 98 - 107 [facility] Comment on above: Performed By: #### C MP #### [address] [address] Creatinine [Mass/Vol] 0.86 mg/dL Normal 0.50 - 1.05 [facility] Comment on above: Performed By: #### C MP #### [address] [address] GFR/1.73 sq M.predicted among non-blacks MDRD (S/P/Bld) [Vol rate/Area] 83 mL/min/{1.73_m2} Normal >90 [facility] Comment on above: Result Comment: CALC ULATIONS OF ESTIMATED GFR ARE PERFORMED USING THE 2020 CKD-EPI STUDY REFIT EQUATION WITHOUT THE RACE VARIABLE FOR THE IDMS-TRACEABLE CREATININE METHODS. https://jasn.asnjournals.org/content//ASN.[id number] Performed By: #### C MP #### [address] [address] Glucose [Mass/Vol] 129 mg/dL High 74 - 99 [facility] Comment on above: Performed By: #### C MP #### [address] [address] HCO3 (Bld) [Moles/Vol] 21 mmol/L Normal 21 - 32 [facility] Comment on above: Performed By: #### C MP #### [address] [address] Potassium [Moles/Vol] 3.1 mmol/L Low 3.5 - 5.3 [facility] Comment on above: Performed By: #### C MP #### [address] [address] Protein [Mass/Vol] 6.8 g/dL Normal 6.4 - 8.2 [facility] Comment on above: Performed By: #### C MP #### [address] [address] Sodium [Moles/Vol] 136 mmol/L Normal 136 - 145 [facility] Comment on above: Performed By: #### C MP #### [address] [address] Urea nitrogen [Mass/Vol] 12 mg/dL Normal 6 - 23 [facility] Comment on above: Performed By: #### C MP #### [address] [address] [address] ANGIO CHEST FOR PEon 12-2 CT ANGIO CHEST FOR PE Patient Name: IRENE LOPEZ STUDY: CT ANGIO CHEST FOR PE; 03/10/2022 12:34 am INDICATION: Dyspnea/elevated D-dimer . COMPARISON: 06/03/2019. ACCESSION NUMBER(S): [id number] ORDERING CLINICIAN: SEAN MALAGON TECHNIQUE: Helical data acquisition of the chest was obtained after the administration of 90 milliliterOMNIPAQUE 350. Images were reformatted in axial, coronal, and sagittal planes. MIP reconstructions were performed on a separate workstation and provided for interpretation. FINDINGS: LOWER NECK AND SUPERFICIAL SOFT TISSUES: Within normal limits. MEDIASTINUM/BHANU: No lymphadenopathy. Esophagus is unremarkable. Small hiatal [...] Electronically signed by: MARTIN AJ, DO Normal [facility] Covid 19 Resultson 2 SARS-CoV-2 (COVID-19) [...] You may also be contacted by the [facility] to see if any of [...] or Naproxen (Aleve) can also be used. Afvy-zap-pcpriky cough and cold medicines can be used according to the instructions on the package. Some bgus-jis-hxlrhce medicines also contain acetaminophen. Make sure you [...] water are not available, use alcohol-based hand color technician. Avoid touching your eyes, nose, and mouth [...] 24 sang (more content not included)... [facility] D-DIMER, VTE EXCLUSIONon D-DIMER, VTE EXCLUSION 2499 ng/mL FEU Abnormal < or = 50 0 [facility] Comment on above: Result Comment: The [...] or PE exclusion.) Performed By: #### T [facility] #### [place] [address] INFLUENZA A/B, COVID 2019 PC R,SYMPTOMATICon 03-10-2022 INFLUENZA A, PCR Not detected Normal Not Detected [facility] Comment on above: Result Comment: Resp iratory virus testing is performed routinely by PCR for Influenza A/B and RSV. Not Detected results do not preclude Influenza A/B or RSV infections since the adequacy of sample collection or low viral burden may impact the clinical sensitivity of this test method. Performed By: #### B #### [place] [id number] INFLUENZA B, PCR Not detected Normal Not Detected [facility] Comment on above: Result Comment: Resp iratory virus testing is performed routinely by PCR for Influenza A/B and RSV. Not Detected results do not preclude Influenza A/B or RSV infections since the adequacy of sample collection or low viral burden may impact the clinical sensitivity of this test method. Performed By: #### B MP #### [place] [address] SARS-CoV-2 (COVID-19) RNA WILEY+probe Ql (Unsp spec) Not detected Normal Not Detected [facility] Comment on above: Result Comment: . This test has received FDA Emergency Use Authorization (EUA) and has been verified by [facility]. This test is only authorized for the duration of time that circumstances exist to justify the authorization of the emergency use of in vitro diagnostic tests for the detection of SARS-CoV-2 virus and/or diagnosis of COVID-19 infection under section 564(b)(1) of the Act, 21 U.S.C. 360bbb-3(b)(1), unless the authorization is terminated or revoked sooner. [facility] is certified under CLIA-88 as qualified to perform high complexity testing. Testing is performed in the [facility] laboratory located at [address] [place] [address]. SARS-CoV-2/Flu/RSV Multiplex Test: Fact sheet for providers: https://www.fda.gov/media/735906/download Fact sheet for patients: https://www.fda.gov/media/496499/download Performed By: #### B MP #### [place] [address] MANUAL DIFFERENTIALon 2021 % BASOPHIL 0.0 % Normal 0.0 - 2.0 [facility] Comment on above: Performed By: #### M DIFF #### [address] [address] % EOSINOPHIL 1.0 % Normal 0.0 - 6.0 [facility] Comment on above: Performed By: #### M DIFF #### [address] [address] % LYMPH-ATYPICAL 8.0 % Normal 0.0 - 2.0 [facility] Comment on above: Performed By: #### M DIFF #### [address] [address] % LYMPHOCYTE 36.0 % Normal 13.0 - 44.0 [facility] Comment on above: Performed By: #### M DIFF #### [address] [address] % MONOCYTE 4.0 % Normal 2.0 - 10.0 [facility] Comment on above: Performed By: #### M DIFF #### [address] [address] % SEG NEUTROPHIL 51.0 % Normal 40.0 - 80.0 [facility] Comment on above: Result Comment: Perc ent differential counts (%) should be interpreted in the context of the absolute cell counts (cells/L). Performed By: #### M DIFF #### [place] [id number] ANC 4.79 x10E9/L Normal 1.20 - 7.70 [facility] Comment on above: Performed By: #### M DIFF #### [address] [address] BASOPHIL 0.00 x10E9/L Normal 0.00 - 0.10 [facility] Comment on above: Performed By: #### M DIFF #### [address] [address] EOSINOPHIL 0.09 x10E9/L Normal 0.00 - 0.70 [facility] Comment on above: Performed By: #### M DIFF #### [address] [address] LYMPH-ATYPICAL 0.75 x10E9/L High 0.00 - 0.50 [facility] Comment on above: Performed By: #### M DIFF #### [address] [address] LYMPHOCYTE 3.38 x10E9/L Normal 1.20 - 4.80 [facility] Comment on above: Performed By: #### M DIFF #### [address] [address] MONOCYTE 0.38 x10E9/L Normal 0.10 - 1.00 [facility] Comment on above: Performed By: #### M DIFF #### [place] [address] [place] [address] SEG NEUTROPHIL 4.79 x10E9/L Normal 1.20 - 7.00 [facility] Comment on above: Performed By: #### M DIFF #### [address] [address] Provider Note - ED v3on - Provider [...] Alert and oriented x4, 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 Sensation and motor function of extremities grossly intact. Psych: Appropriate mood and affect. I have reviewed and confirmed nurses/medics notes for patient past, social and family history. Portions of this note were dictated by speech recognition. An attempt at proof reading was made to minimize errors. Minor errors in banking specialist may be present. HISTORY OF PRESENTING ILLNESS [...] mg motrin and 500 mg Tylenol at 2120.)(1). Triage Information: Most recent Vital Sign Value [...] Reference Range: STRAW,YELLOW Appearance, Urine CLEAR Specific [place], Urine 1.010 pH, Urine 6.5 Protein, Urine [...] Serum 33 (more content not included)... [facility] RED CELL MORPHOLOGYon 2021 POLYCHROMASIA Mild Normal [facility] Comment on above: Performed By: #### B MP #### [place] [address] RBC morphology finding Nom (Bld) See Below Normal [facility] Comment on above: Performed By: #### B MP #### [place] [id number] STOMATOCYTES Few Normal [facility] Comment on above: Performed By: #### B MP #### [place] [address] RSV PCRon 03-10-2022 RSV,PCR Not detected Normal Not Detected [facility] Comment on above: Result Comment: Resp iratory virus testing is performed routinely by PCR for Influenza A/B and RSV. Not Detected results do not preclude Influenza A/B or RSV infections since the adequacy of sample collection or low viral burden may impact the clinical sensitivity of this test method. Performed By: #### R [facility] #### [place] [address] Lab Specimen Source Nasal, Nasopharyngeal [facility] Comment on above: Performed By: #### R [facility] #### [place] [id number] Performed By: #### B MP #### [place] [id number] Risk Screen - Adult Emergenc yon 03-10-2022 Risk Screen - Adult Emergency Preferred Language: Preferred Language: Preferred Language for Discussing Health Care (patient/designee)Peruvian Patient Preferred Pharmacy: Patient Preferred Pharmacy Statement: [...] Learning Preferenceswritten material Cultural Considerationsnone Developmental Considerationsnone Confucianist Considerationsnone Other Learnersnone Learning Assessment (Other Learner): Learning Assessment (Other Learner): Other learner availableno Pressure Injury/TB/Substance: Pressure Injury: Pressure Injury Present on Admissionno Do you have a coughno Smoking Statusformer smoker Alcohol Usedenies Drug Usedenies Drug 2 Usedenies Admission Risk Screen: Significant IndicatorsComplete CAGE: CAGE: Is this an injured patient at a Tra[place] Center [place]/[place]/ [place]): no Electronic Signatures: Gladys Webster (SUPV) (Signed 09-Mar-2022 23:07) Authored: Preferred Language, Patient Preferred Pharmacy, Advanced Directives, Family Violence Adult, Learning Assessment (Patient), Learning Assessment (Other Learner), Pressure Injury/TB/Substance, Pressure Injury, CAGE Last Updated: 09-Mar-2022 23:07 by Gladys Webster (SUPV) [facility] CT Angio Chest For PEon 1 05-11-2021 CT Angio Chest For PE [facility] Work Phone: TROPONIN I, HIGH SENSITIVITY on 03-10-2022 TROPONIN I, HIGH SENSITIVITY 7 ng/L Normal 0 - 13 [facility] Comment on above: Result Comment: . [...] performed using a different testing methodology at [facility] than at other [facility]. Direct result comparisons should only be made within the same method. Performed By: #### T [facility] #### [place] [address] [place] [address] Triage - EDon 03-10-2022 Triage - ED Quick Triage: Are You no Have You Given In The Last 6 Weeksno Are You Currently Breastfeedingno The patient and/or guardian verbally acknowledges placement for services into the following (when Urgent Care Service hours are operating):emergency department Chart Review: ARRIVAL INFORMATION Mode of Arrival: private vehicle CHIEF COMPLAINT IRENE LOPEZ is a Female patient with a chief [...] 93% on room air, no respiratory support. 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 CELLS 1 /HPF Normal [facility] Comment on above: Performed By: #### U AMIC #### [place] [id number] WBC 3 /HPF Normal 0-5 [facility] Comment on above: Performed By: #### U AMIC #### [place] [address] URINALYSIS WITH CULTURE IF I NDICATEDon 03-10-2022 Appearance (U) CLEAR Normal CLEAR [facility] Comment on above: Performed By: #### B MP #### [place] [address] Bilirubin Ql (U) Negative Normal NEGATIVE [facility] Comment on above: Performed By: #### B MP #### [place] [address] Color (U) STRAW Normal STRAW,YELLOW [facility] Comment on above: Performed By: #### B MP #### [place] [address] Glucose Ql (U) Negative Normal NEGATIVE [facility] Comment on above: Performed By: #### B MP #### [place] [address] Hemoglobin Ql (U) TRACE Abnormal NEGATIVE [facility] Comment on above: Performed By: #### B MP #### [address] [address] Ketones Ql (U) Negative Normal NEGATIVE [facility] Comment on above: Performed By: #### B MP #### [place] [id number] Leukocyte esterase Test strip Ql (U) Negative Normal NEGATIVE [facility] Comment on above: Performed By: #### B MP #### [place] [id number] Nitrite Ql (U) Negative Normal NEGATIVE [facility] Comment on above: Performed By: #### B MP #### [address] [address] pH (U) 6.5 [pH] Normal 5.0 - 8.0 [facility] Comment on above: Performed By: #### B MP #### [address] [address] Protein Ql (U) Negative Normal NEGATIVE [facility] Comment on above: Performed By: #### B MP #### [address] [address] Specific gravity (U) [Rel density] 1.010 Normal 1.005 - 1.035 [facility] Comment on above: Performed By: #### B MP #### [address] [address] Urobilinogen (U) [Mass/Vol] mg/dL Normal 0.0 - 1.9 [facility] Comment on above: Performed By: #### B MP #### [address] [address] Color (U) STRAW See Below [facility] Work Phone: Comment on above: Reference Range: STR AW,YELLOW Glucose Ql (U) Negative NEGATIVE [facility] Work Phone: [phone] Ketones Ql (U) Negative NEGATIVE [facility] Work Phone: [phone] Leukocyte esterase Test strip Ql (U) Negative NEGATIVE [facility] Work Phone: [phone] pH (U) 6.5 [pH] 5.0 - 8.0 [facility] Work Phone: [phone] Protein (U) [Mass/Vol] Negative NE[facility]IVE [facility] Work Phone: [phone] RBC (U) [#/Vol] TRACE Abnormal NEGATIVE [facility] Work Phone: [phone] Specific gravity (U) [Rel density] 1.010 1 See Below [facility] Work Phone: Comment on above: Reference Range: 1.0 05 - 1.035 URINALYSIS WITH CULTURE IF INDICATED Negative NEGATIVE [facility] Work Phone: [phone] URINALYSIS WITH CULTURE IF INDICATED <2.0 0.0 - 1.9 [facility] Work Phone: [phone] URINALYSIS WITH CULTURE IF INDICATED CLEAR CLEAR [facility] Work Phone: [phone] Urinalysis, Microscopicon Urinalysis, Microscopic 1 {/HPF} [facility] Work Phone: [phone] Urinalysis, Microscopic <1 0-5 [facility] Work Phone: [phone] Urinalysis, Microscopic 3 {/HPF} 0-5 [facility] Work Phone: [phone] Complete Blood Count + Diffe rentialon 03-09-2022 Erythrocyte distribution width (RBC) [Ratio] 12.1 % See Below [facility] Work Phone: [phone] Comment on above: Reference Range: 11. 5 - 14.5 Hematocrit (Bld) [Volume fraction] 34.9 % below low threshold See Below [facility] Work Phone: [phone] Comment on above: Reference Range: 36. 0 - 46.0 Hemoglobin (Bld) [Mass/Vol] 11.7 g/dL below low threshold See Below [facility] Work Phone: [phone] Comment on above: Reference Range: 12. 0 - 16.0 MCHC (RBC) [Mass/Vol] 33.5 g/dL See Below [facility] Work Phone: [phone] Comment on above: Reference Range: 32. 0 - 36.0 MCV (RBC) [Entitic vol] 94 fL 80 - 100 [facility] Work Phone: [phone] Platelets (Bld) [#/Vol] 176 10*3/uL 150 - 450 [facility] Work Phone: [phone] RBC (Bld) [#/Vol] 3.71 {x10E12/L} below low threshold See Below [facility] Work Phone: Comment on above: Reference Range: 4.0 0 - 5.20 WBC (Bld) [#/Vol] 9.4 10*3/uL 4.4 - 11.3 [facility] Work Phone: Complete Blood Count + Differential SEE MANUAL DIFF [facility] Work Phone: Complete Blood Count + Differential 0.9 % 0.0 - 0.9 [facility] Work Phone: Comment on above: Immature Granulocyte Count (IG) includes promyelocytes, myelocytes and metamyelocytes but does not include bands. Percent differential counts (%) should be interpreted in the context of the absolute cell counts (cells/L). Cult, Bloodon 03-09-2022 Bacteria identified Cx Nom (Bld) [facility] Work Phone: INFLUENZA A/B, COVID 2019 PC R,SYMPTOMATICon 03-09-2022 INFLUENZA A/B, COVID 2019 PCR,SYMPTOMATIC Not detected See Below [facility] Work Phone: Comment on above: Reference Range: Not Detected.This test has received [facility] Emergency Use Authorization (EUA) and has been verified by [facility]. This test is only authorized for the duration of time that circumstances exist to justify the authorization of the emergency use of in vitro diagnostic tests for the detection of SARS-CoV-2 virus and/or diagnosis of COVID-19 infection under section 564(b)(1) of the Act, 21 U.S.C. 360bbb-3(b)(1), unless the authorization is terminated or revoked sooner. [facility] is certified under CLIA-88 as qualified to perform high complexity testing. Testing is performed in the [facility] laboratory located at [address] [place] [address].SARS-CoV-2/Flu/RSV Multiplex Test: Fact sheet for providers: https://www.fda.gov/media/251458/downloadFact sheet for patients: https://www.fda.gov/media/278316/download Reference Range: Not Detected Respiratory virus testing [...] dye [Mass/Vol] 3.9 g/dL 3.4 - 5.0 [facility] Work Phone: ALP [Catalytic activity/Vol] 98 U/L 33 - 110 [facility] Work Phone: [phone] ALT With P-5'-P [Catalytic activity/Vol] 33 U/L 7 - 45 [facility] Work Phone: Comment on above: Patients treated wit h Sulfasalazine may generate falsely decreased results for ALT. Anion gap [Moles/Vol] 14 mmol/L 10 - 20 [facility] Work Phone: [phone] AST With P-5'-P [Catalytic activity/Vol] 55 U/L above high threshold 9 - 39 [facility] Work Phone: [phone] Bilirubin [Mass/Vol] 0.7 mg/dL 0.0 - 1.2 [facility] Work Phone: Calcium [Mass/Vol] 8.9 mg/dL 8.6 - 10.3 [facility] Work Phone: Chloride [Moles/Vol] 104 mmol/L 98 - 107 [facility] Work Phone: [phone] CO2 [Moles/Vol] 21 mmol/L 21 - 32 [facility] Work Phone: Creatinine [Mass/Vol] 0.86 mg/dL See Below [facility] Work Phone: Comment on above: Reference Range: 0.5 0 - 1.05 Glucose [Mass/Vol] 129 mg/dL above high threshold 74 - 99 [facility] Work Phone: Potassium [Moles/Vol] 3.1 mmol/L below low threshold 3.5 - 5.3 [facility] Work Phone: Protein [Mass/Vol] 6.8 g/dL 6.4 - 8.2 [facility] Work Phone: Sodium [Moles/Vol] 136 mmol/L 136 - 145 [facility] Work Phone: Urea nitrogen [Mass/Vol] 12 mg/dL 6 - 23 [facility] Work Phone: Laboratory - Hematology and Cell countson 03-09-2022 Basophils/100 WBC (Bld) 0.0 % 0.0 - 2.0 [facility] Work Phone: Lymphocytes/100 WBC (Bld) 36.0 % See Below [facility] Work Phone: Comment on above: Reference Range: 13. 0 - 44.0 Monocytes/100 WBC (Bld) 4.0 % 2.0 - 10.0 [facility] Work Phone: Laboratory - Microbiology an d Antimicrobial susceptibilityon 03-09-2022 RSV RNA WILEY+probe Ql (Unsp spec) Not detected See Below [facility] Work Phone: Comment on above: SOURCE: Nasal, Nasop haryngealReference Range: Not Detected Respiratory virus testing is performed routinely by PCR for Influenza A/B and RSV. Not Detected results do not preclude Influenza A/B or RSV infections since the adequacy of sample collection or low viral burden may impact the clinical sensitivity of this test method. No Panel Informationon 03-09 83 {mL/min/1.73m2} >90 [facility] Work Phone: Comment on above: CALCULATIONS OF ASHLEY MATED GFR ARE PERFORMED USING THE 2020 CKD-EPI STUDY REFIT EQUATION WITHOUT THE RACE VARIABLE FOR THE IDMS-TRACEABLE CREATININE METHODS.https://jasn.asnjournals.org/content/early//A SN.4448142368 0.75 {x10E9/L} above high threshold See Below [facility] Work Phone: Comment on above: Reference Range: 0.0 0 - 0.50 0.00 {x10E9/L} See Below [facility] Work Phone: Comment on above: Reference Range: 0.0 0 - 0.10 0.09 {x10E9/L} See Below [facility] Work Phone: Comment on above: Reference Range: 0.0 0 - 0.70 0.38 {x10E9/L} See Below [facility] Work Phone: Comment on above: Reference Range: 0.1 0 - 1.00 3.38 {x10E9/L} See Below [facility] Work Phone: Comment on above: Reference Range: 1.2 0 - 4.80 4.79 {x10E9/L} See Below [facility] Work Phone: Comment on above: Reference Range: 1.2 0 - 7.00 Reference Range: 1.2 0 - 7.70 8.0 % 0.0 - 2.0 [facility] Work Phone: 1.0 % 0.0 - 6.0 [facility] Work Phone: 51.0 % See Below [facility] Work Phone: Comment on above: Reference Range: 40. 0 - 80.0 Percent differential counts (%) should be interpreted in the context of the absolute cell counts (cells/L). Few [facility] Work Phone: Mild [facility] Work Phone: See Below [facility] Work Phone: [phone] {ng/mL_FEU} Abnormal < or = 500 [facility] Work Phone: Comment on above: The VTE Exclusion D- [...] sensitivity method 7 ng/L 0 - 13 [facility] Work Phone: Comment on above: .Less than [...] performed using a different testing methodology at [facility] than at other [facility]. [...] TO FREE T4 IF ABNORMAL; Status:Active; Requested for:[id number]; Vitamin B12, Serum; Status:Active; Requested for:[id number]; Herpes simplex virus (HSV) infection Renew: valACYclovir [...] as needed. Chief Complaint ckup, ER f/u, [facility] 03/01/22, states infection to throat, but [...] 1 TABLET DAILY. Vitals Vital Signs Recorded: [id number] 11:39AM Heart Rate78 [id number], LUE, Sitting Hucisqoms28, LUE, Sitting Height5 ft 5 in Kkwjot297 lb 2 oz BMI Kdzhmtmgti32.64 kg/m2 BSA Calculated1.86 Tobacco Useb) No Falls Screening (Age 18+)a) No falls within the last year O2 [id number] Physical Exam General: Alert and oriented, No acute distress. Respiratory: Lungs are clear to auscultation, Respirations are non-labored, Breath sounds (more content not included)... Normal [facility] Tobacco Screening.on 022 Fall risk assessment a) No falls within the last year [facility] Work Phone: Tobacco use status [facility] b) No [facility] Work Phone: Clinical Event Note-Incident al Findings Follow-up 03/02/22on 03-03-2022 Clinical Event Note-Incidental Findings Follow-up 03/02/22 Clinical Event: Clinical Event Note: TopicIncidental Findings Follow-up 03/02/22 Details 03/03/22 1254 Reviewed incidental finding of: Findings There is fluid in the visible esophagus, with mild associated circumferential wall thickening compatible with reflux esophagitis. Endoscopic correlation is suggested Patient notified of finding by ED Provider and advised to follow-up with PCP. Task sent to PCP [place] for follow-up. No further Post Discharge Follow-Up needed. WILFRIDO Rodríguez, RN Post Discharge Registered Nurse Contact # [phone] Electronic Signatures: Kailey Aguilar (RN) (Signed 03-Mar-2022 14:22) Authored: Clinical Event Note Last Updated: 03-Mar-2022 14:22 by Kailey Aguilar (RN) Normal [facility] BASIC METABOLIC PANELon 02-13 Anion gap [Moles/Vol] 13 mmol/L Normal 10 - 20 [facility] Comment on above: Performed By: #### B MP #### [address] [address] Calcium [Mass/Vol] 9.4 mg/dL Normal 8.6 - 10.3 [facility] Comment on above: Performed By: #### B MP #### [address] [address] Chloride [Moles/Vol] 101 mmol/L Normal 98 - 107 [facility] Comment on above: Performed By: #### B MP #### [address] [address] Creatinine [Mass/Vol] 0.81 mg/dL Normal 0.50 - 1.05 [facility] Comment on above: Performed By: #### B MP #### [address] [address] GFR/1.73 sq M.predicted among non-blacks MDRD (S/P/Bld) [Vol rate/Area] 89 mL/min/{1.73_m2} Normal >90 [facility] Comment on above: Result Comment: CALC ULATIONS OF ESTIMATED GFR ARE PERFORMED USING THE 2020 CKD-EPI STUDY REFIT EQUATION WITHOUT THE RACE VARIABLE FOR THE IDMS-TRACEABLE CREATININE METHODS. https://jasn.asnjournals.org/content//ASN.47664 [address] Performed By: #### B MP #### [address] [address] Glucose [Mass/Vol] 105 mg/dL High 74 - 99 [facility] Comment on above: Performed By: #### B MP #### [address] [address] HCO3 (Bld) [Moles/Vol] 26 mmol/L Normal 21 - 32 [facility] Comment on above: Performed By: #### B MP #### [address] [address] Potassium [Moles/Vol] 4.0 mmol/L Normal 3.5 - 5.3 [facility] Comment on above: Result Comment: MILD HEMOLYSIS DETECTED. The result may be falsely elevated due to hemolysis or other interferents. Clinical correlation is recommended. Repeat testing may be considered. Performed By: #### B MP #### [address] [address] Sodium [Moles/Vol] 136 mmol/L Normal 136 - 145 [facility] Comment on above: Performed By: #### B MP #### [address] [address] Urea nitrogen [Mass/Vol] 13 mg/dL Normal 6 - 23 [facility] Comment on above: Performed By: #### B MP #### [address] [address] CBCon 03-02-2022 Erythrocyte distribution width (RBC) [Ratio] 12.1 % Normal 11.5 - 14.5 [facility] Comment on above: Performed By: #### B MP #### [address] [address] Hematocrit (Bld) [Volume fraction] 38.4 % Normal 36.0 - 46.0 [facility] Comment on above: Performed By: #### B MP #### [address] [address] Hemoglobin (Bld) [Mass/Vol] 12.9 g/dL Normal 12.0 - 16.0 [facility] Comment on above: Performed By: #### B MP #### [address] [address] MCHC (RBC) [Mass/Vol] 33.6 g/dL Normal 32.0 - 36.0 [facility] Comment on above: Performed By: #### B MP #### [address] [address] MCV (RBC) [Entitic vol] 96 fL Normal 80 - 100 [facility] Comment on above: Performed By: #### B MP #### [address] [address] Platelets (Bld) [#/Vol] 164 10*3/uL Normal 150 - 450 [facility] Comment on above: Performed By: #### B MP #### [address] [address] RBC 3.99 x10E12/L Low 4.00 - 5.20 [facility] Comment on above: Performed By: #### B MP #### [address] [address] WBC (Bld) [#/Vol] 7.2 10*3/uL Normal 4.4 - 11.3 [facility] Comment on above: Performed By: #### B MP #### [address] [address] CORONAVIRUS 2019 BY PCRon SARS-CoV-2 (COVID-19) RNA WILEY+probe Ql (Unsp spec) Not detected Normal Not Detected [facility] Comment on above: Result Comment: . This test has received FDA Emergency Use Authorization (EUA) and has been verified by [facility]. This test is only authorized for the duration of time that circumstances exist to justify the authorization of the emergency use of in vitro diagnostic tests for the detection of SARS-CoV-2 virus and/or diagnosis of COVID-19 infection under section 564(b)(1) of the Act, 21 U.S.C. 360bbb-3(b)(1), unless the authorization is terminated or revoked sooner. [facility] is certified under CLIA-88 as qualified to perform high complexity testing. Testing is performed in the [facility] laboratory located at [address] [place] [address]. SARS-CoV-2/Flu/RSV Multiplex Test: Fact sheet for providers: https://www.fda.gov/media/493652/download Fact sheet for patients: https://www.fda.gov/media/243163/download Performed By: #### C OV19 #### [place] [address] Lab Specimen Source Nasal, Nasopharyngeal Normal [facility] Comment on above: Performed By: #### C OV19 #### [place] [address] CT Neck with Contraston 02-13 CT Neck W contrast IV Normal - [employer] Work Phone: Covid 19 Resultson 2 SARS-CoV-2 [...] You may also be contacted by the [facility] to see if any of your close [...] or Naproxen (Aleve) can also be used. Ogpd-eub-taxmwmz cough and cold medicines can be used according to the instructions on the package. Some iqhk-riv-rseervn medicines also contain acetaminophen. Make sure you [...] water are not available, use alcohol-based hand color technician. Avoid touching your eyes, nose, and mouth [...] 24 sang (more content not included)... Normal [facility] GROUP A STREP,PCRon 03-02-20 22 GROUP A STREP,PCR Not detected Normal Not Detected [facility] Comment on above: Result Comment: This test was performed utilizing an FDA-cleared rapid nucleic acid amplification by PCR to qualitatively detect Group A Streptococci from throat swab specimens without the need for culture confirmation of negative results. Performed By: #### B MP #### [address] [address] Lab Specimen Source Throat Normal [facility] Comment on above: Performed By: #### B MP #### [address] [address] HCG, Beta Quantitativeon HCG.beta subunit Qn 2 m[IU]/mL [facility] [employer] Work Phone: Comment on above: .Total HCG measureme nt is performed using the Mary Riner AccessImmunoassay which detects intact HCG and free beta HCG subunit. .This test is not indicated for use as a tumor marker.HCG testing is performed using a different test methodology at [facility] than other [facility]. Direct result comparisonshould only be made within the same method. REF VALUESNON FEMALE <5MALES <5 HCG,BETA-QUANTITATIVEon 02-13 HCG,BETA-QUANTITATIVE 2 mIU/mL Normal [facility] Comment on above: Result Comment: . Total HCG measurement is performed using the Mary Riner Access Immunoassay which detects intact HCG and free beta HCG subunit. . This test is not indicated for use as a tumor marker. HCG testing is performed using a different test methodology at [facility] than other [facility]. Direct result comparison should only be made within the same method. REF VALUES NON FEMALE <5 MALES <5 Performed By: #### B MP #### [address] [address] INFLUENZA A + B PCRon 2021 INFLUENZA A, PCR Not detected Normal Not Detected [facility] Comment on above: Result Comment: Resp iratory virus testing is performed routinely by PCR for Influenza A/B and RSV. Not Detected results do not preclude Influenza A/B or RSV infections since the adequacy of sample collection or low viral burden may impact the clinical sensitivity of this test method. Performed By: #### I NFLP #### [place] [id number] INFLUENZA B, PCR Not detected Normal Not Detected [facility] Comment on above: Result Comment: Resp iratory virus testing is performed routinely by PCR for Influenza A/B and RSV. Not Detected results do not preclude Influenza A/B or RSV infections since the adequacy of sample collection or low viral burden may impact the clinical sensitivity of this test method. Performed By: #### I NFLP #### [place] [address] Lab Specimen Source Nasal, Nasopharyngeal Normal [facility] Comment on above: Performed By: #### I NFLP #### [place] [address] INFLUENZA A/B, COVID 2019 PC R,SYMPTOMATICon 03-02-2022 INFLUENZA A, PCR Canceled [facility] Comment on above: Order Comment: TEST [...] method. Performed By: #### B MP #### [place] [address] INFLUENZA B, PCR Canceled [facility] Comment on above: Order Comment: TEST [...] method. Performed By: #### B MP #### [place] [id number] SARS-CoV-2 (COVID-19) RNA WILEY+probe Ql (Unsp spec) Canceled [facility] Comment on above: Order Comment: TEST INFLUENZA A/B, COVID 2019 PCR,SYMPTOMATIC WAS CANCELLED, 200:21 NEEDS FLU ONLY. Result Comment: . This test has received FDA Emergency Use Authorization (EUA) and has been verified by [facility]. This test is only authorized for the duration of time that circumstances exist to justify the authorization of the emergency use of in vitro diagnostic tests for the detection of SARS-CoV-2 virus and/or diagnosis of COVID-19 infection under section 564(b)(1) of the Act, 21 U.S.C. 360bbb-3(b)(1), unless the authorization is terminated or revoked sooner. [facility] is certified under CLIA-88 as qualified to perform high complexity testing. Testing is performed in the [facility] laboratory located at [address] [place] [address]. SARS-CoV-2/Flu/RSV Multiplex Test: Fact sheet for providers: https://www.fda.gov/media/821781/download Fact sheet for patients: https://www.fda.gov/media/270553/download Performed By: #### B MP #### [place] [address] Lab Specimen Source Nasal, Nasopharyngeal Normal [facility] Comment on above: Order Comment: TEST INFLUENZA A/B, COVID 2019 PCR,SYMPTOMATIC WAS CANCELLED, 200:21 NEEDS FLU ONLY. Performed By: #### B MP #### [place] [address] Laboratory - Chemistry and C hemistry - challengeon 03-02-2022 Anion gap [Moles/Vol] 13 mmol/L 10 - 20 [facility] Work Phone: Calcium [Mass/Vol] 9.4 mg/dL 8.6 - 10.3 [facility] Work Phone: Chloride [Moles/Vol] 101 mmol/L 98 - 107 [facility] Work Phone: CO2 [Moles/Vol] 26 mmol/L 21 - 32 [facility] Work Phone: Creatinine [Mass/Vol] 0.81 mg/dL See Below [facility] Work Phone: Comment on above: Reference Range: 0.5 0 - 1.05 Glucose [Mass/Vol] 105 mg/dL above high threshold 74 - 99 [facility] Work Phone: Potassium [Moles/Vol] 4.0 mmol/L 3.5 - 5.3 - [facility] [address] [facility] Work Phone: Comment on above: MILD HEMOLYSIS DETEC HOLLY. The result may be falsely elevated due tohemolysis or other interferents. Clinical correlation is recommended.Repeat testing may be considered. Sodium [Moles/Vol] 136 mmol/L 136 - 145 [facility] Work Phone: Urea nitrogen [Mass/Vol] 13 mg/dL 6 - 23 -[facility] [address] [facility] Work Phone: Laboratory - Hematology and Cell countson 03-02-2022 Erythrocyte distribution width (RBC) [Ratio] 12.1 % See Below [facility] Work Phone: Comment on above: Reference Range: 11. 5 - 14.5 Hematocrit (Bld) [Volume fraction] 38.4 % See Below [facility] Work Phone: Comment on above: Reference Range: 36. 0 - 46.0 Hemoglobin (Bld) [Mass/Vol] 12.9 g/dL See Below [facility] Work Phone: Comment on above: Reference Range: 12. 0 - 16.0 MCHC (RBC) [Mass/Vol] 33.6 g/dL See Below - [facility] Work Phone: Comment on above: Reference Range: 32. 0 - 36.0 MCV (RBC) [Entitic vol] 96 fL 80 - 100 [facility] Work Phone: Platelets (Bld) [#/Vol] 164 10*3/uL 150 - 450 [facility] Work Phone: RBC (Bld) [#/Vol] 3.99 {x10E12/L} below low threshold See Below [facility] Work Phone: Comment on above: Reference Range: 4.0 0 - 5.20 WBC (Bld) [#/Vol] 7.2 10*3/uL 4.4 - 11.3 [facility] Work Phone: NR CT NECK WITH CONTRASTon 1 05-03-[address] NECK WITH CONTRAST Patient Name: IRENE LOPEZ STUDY: CT NECK WITH CONTRAST; 03/02/2022 2:20 am INDICATION: sore throat, fever, rule out abscess . COMPARISON: None. ACCESSION NUMBER(S): [id number] ORDERING CLINICIAN: FANNY MCKEON TECHNIQUE: Axial CT [...] examination. Electronically signed by: MINNIE AVERY MD [facility] No Panel Informationon 03-02 89 {mL/min/1.73m2} >90 [employer] Work Phone: Comment on above: CALCULATIONS OF ASHLEY MATED GFR ARE PERFORMED USING THE 2020 CKD-EPI STUDY REFIT EQUATION WITHOUT THE RACE VARIABLE FOR THE IDMS-TRACEABLE CREATININE METHODS.https://jasn.asnjournals.org/content//A SN.6635290174 Not detected See Below [employer] [facility] Work Phone: Comment on above: Reference Range: [...] preclude Influenza (more content not included)... Normal [facility] Risk Screen - Adult Emergenc yon 03-02-2022 Risk Screen - Adult Emergency Preferred Language: Preferred Language: Preferred Language for Discussing Health Care (patient/designee)Peruvian Patient Preferred Pharmacy: Patient Preferred Pharmacy Statement: [...] instruction; written material Cultural Considerationsnone Developmental Considerationsnone Confucianist Considerationsnone Learning Assessment (Other Learner): Learning Assessment (Other Learner): Other learner availableno Pressure Injury/TB/Substance: Pressure Injury: Do you have a coughno Smoking Statusformer smoker Alcohol Useoccasionally Drug Usedenies Drug 2 Usedenies Admission Risk Screen: Significant IndicatorsComplete CAGE: CAGE: Is this an injured patient at a Trauma Center [place]/[place]/ [place]): no Electronic Signatures: Virgen Doty (RN PRN) (Signed 01-Mar-2022 23:53) Authored: Preferred Language, Patient Preferred Pharmacy, Advanced Directives, Family Violence Adult, Learning Assessment (Patient), Learning Assessment (Other Learner), Pressure Injury/TB/Substance, Pressure Injury, CAGE Last Updated: 01-Mar-2022 23:53 by Virgen Doty (RN PRN) [facility] Triage - EDon 03-02-2022 Triage - ED Quick Triage: Are You no Are You Currently Breastfeedingno Chart Review: ARRIVAL INFORMATION Mode of Arrival: private vehicle CHIEF COMPLAINT IRENE LOPEZ is a Female patient with a chief [...] BMI (kg/m2): 32.764 Calculated BSA (m2) 1.82 Arjay Coma Scale: Best Eye Response: (E4) spontaneous Best Motor Response: (M6) obeys commands Best Verbal Response: (V5) oriented Mahesh Score: 15 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 Patient has homicidal thoughts: no [...] past 30 days PAIN Pain Scale Used: RAPITA Pain Rating (0-10): 10 = Severe Past Medical History: Past Medical History Reviewedyes Electronic Signatures: Virgen Doty (RASHID PRN) (Signed 02-Mar-2022 01:27) Authored: Quick Triage, Risk Screens, Pain, Travel History, Chart Review, Scores, Past Medical History Last Updated: 02-Mar-2022 01:27 by Virgen Doty (RASHID PRN) Normal [facility] Coronavirus 2019 RNA by PCR, Symptomaticon 03-01-2022 Coronavirus 2019 RNA by PCR, Symptomatic Not detected Normal See Below -[facility] Work Phone: Comment on above: SOURCE: Nasal, Nasop haryngealReference Range: Not Detected.This test has received FDA Emergency Use Authorization (EUA) and has been verified by [facility]. This test is only authorized for the duration of time that circumstances exist to justify the authorization of the emergency use of in vitro diagnostic tests for the detection of SARS-CoV-2 virus and/or diagnosis of COVID-19 infection under section 564(b)(1) of the Act, 21 U.S.C. 360bbb-3(b)(1), unless the authorization is terminated or revoked sooner. [facility] is certified under CLIA-88 as qualified to perform high complexity testing. Testing is performed in the [facility] laboratory located at [address] [place] [address].SARS-CoV-2/Flu/RSV Multiplex Test: Fact sheet for providers: https://www.fda.gov/media/220287/downloadFact sheet for patients: https://www.fda.gov/media/449528/download GROUP A STREP, PCRon 022 S. pyogenes Ag Ql (Throat) Not detected See Below -[employer] Work Phone: Comment on above: SOURCE: ThroatRefere nce Range: Not Detected This test was performed utilizing an FDA-cleared rapid nucleic acid amplification by PCR to qualitatively detect Group A Streptococci from throat swab specimens without the need for culture confirmation of negative results. 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 Vitals Vital Signs Recorded: [id number] 03:36PM Lirmnqjf521 Zylemxrfg91 Height5 ft 5 in Ypgyaj93.1 kg BMI Wmzwrypdmc63.55 kg/m2 BSA Calculated1.83 LMPHysterectomy 2019 Physical Exam [...] (SELF PAY); Status:Hold For - Scheduling; Requested for:[id number]; Perform:[facility]; Due:[id number];Ordered; For:Breast cancer screening, high risk patient, Dense breast tissue; Ordered By:Kathleen Gardner; Radiologist to Determine Optimal Study : Y Does the patient have a Cochlear Implant, Pacemaker, Defibrilator, Pacing Wire, Brain Aneurysm Clip, Implanted Nerve or Bone Graft Simulator, Implanted Breast Tissue Elastic Attacher Coverstitch, Glucose Monitor, or Neulasta Device? : No Is the patient or breast feeding? : No What are the patient's signs and symptoms? : DEISY gene mutation, dense breasts Patient Discussion/Summary Ms. 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 I shared with her the risk calculator from [employer] utilizing her age of 45, her history of hysterectomy/oophorectomy , and her DEISY variant. She has a [...] November. I have recommended she see our customer service technician in our high risk prevention clinic at [...] reducing bilateral mastectomies History of Present IllnessIrene Lopez is a pleasant 45- yo female self-referred to the [facility] for surgical consultation for risk [...] exposure such (more content not included)... Normal [facility] Mamm - Screening Mammogram w / Tomosynthesison 06-12-2021 MG Breast Screening Normal [facility] [employer] Work Phone: LMPon 04-17-2021 Last menstrual period start date 2018 [employer] Work Phone: Laboratory - Cytologyon 03-16 Cytology report Cyto stain.thin prep Doc (Cvx/Vag) [facility] [place] [facility] [employer] Work Phone: Tobacco Screening.on Last menstrual period start date 2018 [employer] Work Phone: Tobacco use status CPHS b) No [facility] [employer] Work Phone: NOVEL CORONAVIRUSon 03-16-19 PERFORMED BY PAPITO Diaz [facility] Comment on above: Performed By: #### C COVID #### [place] [address] SARS-CoV-2 (COVID-19) RNA WILEY+probe Ql (Unsp spec) Not detected Normal NOT DETECTED [facility] Comment on above: Result Comment: Nega tive [...] #### C COVID #### Testing performed at [address] [place] [address] NARRATIVE This test was perfor med using isothermal WILEY and has been approved as Emergency Use Authorization (EUA) for the qualitative detection nyLOBL-IpG-6 nucleic acid. Normal [facility] Comment on above: Performed By: #### C COVID #### Testing performed at [address] [place] [address] SARS-COV-2 RAPIDon 2 Mill [employer] Cyto stain Nom (Cvx/Vag) [ID] OWIC [facility] NARRATIVE -1 This test was perfor med using isothermal WILEY and has been approved as Emergency Use Authorization (EUA) for the qualitative detection [id number] nucleic acid. [facility] SARS-CoV-2 (COVID-19) RNA WILEY+probe Ql (Unsp spec) Not detected NOT DETECTED [facility] Comment on above: Negative results do not [...] patient is critically ill or clinically deteriorating. [facility] LMPon 01-04-2021 Last menstrual period start date HYSTER [facility] [employer] Work Phone: No Panel Informationon 01-04 [facility] [employer] Work Phone: Coronavirus 2019 RNA by PCR, Symptomaticon 11-14-2020 Date and time of symptom onset [id number] -[employer] Work Phone: Coronavirus 2019 RNA by PCR, Symptomatic Detected Abnormal See Below -[employer] [facility] Work Phone: Comment on above: SOURCE: Nasal, [...] make patient management decisions.Fact sheet for providers: https://www.fda.gov/media/715721/downloadFact sheet for patients: https://www.fda.gov/media/768304/downloadThis test has received FDA Emergency Use Authorization (EUA) and has been verified by [facility] ([facility]). This test is only authorized for the duration of time that circumstances exist to justify the authorization of the emergency use of in vitro diagnostic tests for the detection of SARS-CoV-2 virus and/or diagnosis of COVID-19 infection under section 564(b)(1) of the Act, 21 U.S.C. 360bbb-3(b)(1), unless the authorization is terminated or revoked sooner. [facility] is certified under CLIA-88 as qualified to perform high complexity testing. Testing is performed in the [facility] laboratories located at [address] [place] [address].COVID CALLED TO CARRIE ARROYO, 11/15/2020 11:18 Tobacco Screening.on 021 Tobacco use status CPHS b) No [facility] Work Phone: FC Mamm Screen w/CAD if perf and 3D Bilon 06-10-2018 Bilirubin.direct [Mass/Vol] Exam Date/Time: 06/09/2018 13:30 EDT Reason for Exam: PELVIC PAIN BASELINE SCREENING 3D/PRANAV;Screening Report STUDY: Digital mammography screening with pranav; 06/09/2018 1:30 pm ACCESSION NUMBER(S): [id number] ORDERING CLINICIAN: Laura Phelps INDICATION: Screening. COMPARISON: [...] BI-RADS Category 1-Negative Recommendation: Normal interval follow-up Normal [facility] US Pelvis Non-OB Completeon 06-09-2018 US Pelvis Non-OB Complete Exam Date/Time: 06/09/2018 13:35 EDT Reason for Exam: PELVIC PAIN BASELINE SCREENING 3D/PRANAV;Other (please specify) Report STUDY: US Pelvis Non-OB Complete; US Transvaginal Non-OB; 06/09/2018 1:35 pm INDICATION: Menometrorrhagia COMPARISON: None. ACCESSION NUMBER(S): [id number]; [id number] ORDERING CLINICIAN: Laura Phelps TECHNIQUE: Multiple multiplanar [...] Signed by: Valdo Calero MD Technologist: MATT [facility] US Transvaginal Non-OBon US Transvaginal Non-OB Exam Date/Time: 06/09/2018 13:35 EDT Reason for Exam: PELVIC PAIN;Other (please specify) Report STUDY: US Pelvis Non-OB Complete; US Transvaginal Non-OB; 06/09/2018 1:35 pm INDICATION: Menometrorrhagia COMPARISON: None. ACCESSION NUMBER(S): [id number]; [id number] ORDERING CLINICIAN: Laura Phelps TECHNIQUE: Multiple multiplanar [...] Signed by: Valdo Calero MD Technologist: MATT [facility] IGP W/hpv Rfx [id number] 03-24 Diagnosis: See Ref Lab Report [facility] Comment on above: Performed By: #### 1 [id number] #### JM Send Outs Subsection [facility] [place] [address] Lab Miscellaneouson 03-15-20 18 Status See Ref Lab Report [facility] Comment on above: Order Comment: famil y h/o breast cancer, pt linh bring the kit Performed By: #### 1 [id number] #### JM Send Outs Subsection [address] [place] [address] Test Name myriad lab draw [facility] Comment on above: Order Comment: famil y h/o breast cancer, pt linh bring the kit Performed By: #### 1 [id number] #### JM Send Outs Subsection [facility] [place] [id number] Pathology ([facility])on 03-15-2018 Pathology ([facility]) FINAL GYNECOLOGIC CYTOLOGY [id number] ADEQUACYSatisfactory for Evaluation. Endocervical cells/transformation zone componentpresent.Sample is obscured by blood.Squamous metaplastic cells are identified.GENERAL CATEGORIZATIONNegative for Intraepithelial Lesion or MalignancyCOMMENTSample has been treated with glacial acetic acid for excessive blood, debris,inflammation and/or lubricant.CLINICAL HISTORYLMP: 03/15/2018SPECIMEN(A) SCREENING CERVICAL/ENDOCERVICAL THIN PREP VIALPerformed at [facility], [address] [place], [place] [address]Screened by: Signed Out by: DAVID PATEL Back Grinder Reported: 03/23/2018 Normal [facility] Healthcare Comment on above: Performed By: #### G YN ####[facility] [place] [address] Vital Signs Date Time Vital Sign Value Performing Clinician Facility 07-28-2024 15:03-0400 Body height 165.[address] Amanda Osborne MD Work Phone: 2(616)185-037827 [place] [address] 07-28-2024 15:03-0400 Body temperature 97.8 [degF] Dr. Amanda Osborne MD Work Phone: 8(532)926-782578 [place] [address] 07-28-2024 15:03-0400 Diastolic blood pressure 69 mm[Hg] Dr. Amanda Osborne MD Work Phone: 9(517)928-013778 [place] [address] 07-28-2024 15:03-0400 Heart rate 96 /min Dr. Amanda Osborne MD Work Phone: 3(665)170-278978 [place] [address] 07-28-2024 15:03-0400 Respiratory rate 18 /min Dr. Amanda Osborne MD Work Phone: 0(374)291-588678 [place] [address] 07-28-2024 15:03-0400 SaO2% (BldA) [Mass fraction] 93 % Dr. Amanda Osborne MD Work Phone: 3(759)986-945478 [place] [address] 07-28-2024 15:03-0400 Systolic blood pressure 105 mm[Hg] Dr. Amanda Osborne MD Work Phone: 6(249)053-323678 [place] [address] 07-07-2024 15:45-0400 Diastolic blood pressure 78 mm[Hg] Dr. Amanda Osborne MD Work Phone: 9(403)212-181278 [place] [address] 07-07-2024 15:45-0400 Heart rate 82 /min Dr. Amanda Osborne MD Work Phone: 6(873)607-965478 [place] [address] 07-07-2024 15:45-0400 Respiratory rate 18 /min Dr. Amanda Osborne MD Work Phone: 9(006)800-394978 [place] [address] 07-07-2024 15:45-0400 SaO2% (BldA) [Mass fraction] 94 % Dr. Amanda Osborne MD Work Phone: 6(242)288-785827 [place] [address] 07-07-2024 15:45-0400 Systolic blood pressure 121 mm[Hg] Dr. Amanda Osborne MD Work Phone: 7(752)275-141478 [place] [address] 06-20-2024 08:31-0400 Body mass index (BMI) [Ratio] 28.6 kg/m2 Dr. Amanda Osborne MD Work Phone: 5(673)404-139127 [place] [address] 06-20-2024 08:31-0400 Body temperature 97 [degF] Dr. Amanda Osborne MD Work Phone: 4(594)807-131378 [place] [address] 06-20-2024 08:31-0400 Diastolic blood pressure 65 mm[Hg] Dr. Amanda Osborne MD Work Phone: 7(642)479-960678 [place] [address] 06-20-2024 08:31-0400 Heart rate 72 /min Dr. Amanda Osborne MD Work Phone: 4(200)836-082378 [place] [address] 06-20-2024 08:31-0400 Respiratory rate 18 /min Dr. Amanda Osborne MD Work Phone: 1(761)130-149878 [place] [address] 06-20-2024 08:31-0400 Systolic blood pressure 134 mm[Hg] Dr. Amanda Osborne MD Work Phone: 0(430)969-544478 [place] [address] 06-14-2024 00:38-0400 Body weight 78.[address] Amanda Osborne MD Work Phone: 1(836)602-238878 [place] [address] 06-06-2024 08:57-0400 Body mass index (BMI) [Ratio] 28.6 kg/m2 Dr. Amanda Osborne MD Work Phone: 2(914)466-240278 [place] [address] 06-06-2024 08:57-0400 Body temperature 97 [degF] Dr. Amanda Osborne MD Work Phone: 3(893)871-368578 [place] [address] 06-06-2024 08:57-0400 Diastolic blood pressure 70 mm[Hg] Dr. Amanda Osborne MD Work Phone: [facility] 06-06-2024 08:57-0400 Heart rate 61 /min Dr. Amanda Osborne MD Work Phone: 9(528)659-548927 [place] [address] 06-06-2024 08:57-0400 Respiratory rate 18 /min Dr. Amanda Osborne MD Work Phone: 8(134)921-956427 [place] [address] 06-06-2024 08:57-0400 Systolic blood pressure 131 mm[Hg] Dr. Amanda Osborne MD Work Phone: 5(409)452-192127 [place] [address] 05-16-2024 10:22-0500 Body height 165.[address] Amanda Osborne MD Work Phone: 3(434)367-736027 [place] [address] 05-16-2024 10:22-0500 Body weight 78.[address] Amanda Osborne MD Work Phone: 0(901)452-428127 [place] [address] 05-10-2024 15:28-0500 Body temperature 98.3 [degF] Dr. Amanda Osborne MD Work Phone: 9(205)394-268027 [place] [address] 05-10-2024 15:28-0500 Diastolic blood pressure 76 mm[Hg] Dr. Amanda Osborne MD Work Phone: 4(733)197-502027 [place] [address] 05-10-2024 15:28-0500 Heart rate 82 /min Dr. Amanda Osborne MD Work Phone: 6(100)040-914627 [place] [address] 05-10-2024 15:28-0500 Respiratory rate 18 /min Dr. Amanda Osborne MD Work Phone: 7(785)962-368627 [place] [address] 05-10-2024 15:28-0500 SaO2% (BldA) [Mass fraction] 97 % Dr. Amanda Osborne MD Work Phone: 5(300)601-183927 [place] [address] 05-10-2024 15:28-0500 Systolic blood pressure 157 mm[Hg] Dr. Amanda Osborne MD Work Phone: 2(901)744-812127 [place] [address] 05-06-2024 14:36-0500 Diastolic blood pressure 82 mm[Hg] Dr. Amanda Osborne MD Work Phone: 0(563)566-474127 [place] [address] 05-06-2024 14:36-0500 Heart rate 100 /min Dr. Amanda Osborne MD Work Phone: 0(862)611-629678 [place] [address] 05-06-2024 14:36-0500 Respiratory rate 18 /min Dr. Amanda Osborne MD Work Phone: 7(762)055-341878 [place] [address] 05-06-2024 14:36-0500 SaO2% (BldA) [Mass fraction] 94 % Dr. Amanda Osborne MD Work Phone: 8(929)169-252378 [place] [address] 05-06-2024 14:36-0500 Systolic blood pressure 148 mm[Hg] Dr. Amanda Osborne MD Work Phone: 6(926)191-184178 [place] [address] 04-26-2024 14:59-0500 Body temperature 98.3 [degF] Dr. Amanda Osborne MD Work Phone: 2(419)803-584478 [place] [address] 04-26-2024 14:59-0500 Diastolic blood pressure 77 mm[Hg] Dr. Amanda Osborne MD Work Phone: 1(464)591-426678 [place] [address] 04-26-2024 14:59-0500 Heart rate 73 /min Dr. Amanda Osborne MD Work Phone: 6(177)014-367827 [place] [address] 04-26-2024 14:59-0500 Respiratory rate 18 /min Dr. Amanda Osborne MD Work Phone: 6(077)596-039878 [place] [address] 04-26-2024 14:59-0500 SaO2% (BldA) [Mass fraction] 94 % Dr. Amanda Osborne MD Work Phone: 7(456)274-995278 [place] [address] 04-26-2024 14:59-0500 Systolic blood pressure 126 mm[Hg] Dr. Amanda Osborne MD Work Phone: 5(196)677-038678 [place] [address] 04-19-2024 16:05-0500 Body temperature 98.5 [degF] Dr. Amanda Osborne MD Work Phone: 5(308)972-526327 [place] [address] 04-19-2024 16:05-0500 Diastolic blood pressure 78 mm[Hg] Dr. Amanda Osborne MD Work Phone: 1(769)697-646327 [place] [address] 04-19-2024 16:05-0500 Heart rate 86 /min Dr. Amanda Osborne MD Work Phone: 7(424)835-187127 [place] [address] 04-19-2024 16:05-0500 Respiratory rate 18 /min Dr. Amanda Osborne MD Work Phone: 1(864)468-771727 [place] [address] 04-19-2024 16:05-0500 SaO2% (BldA) [Mass fraction] 94 % Dr. Amanda Osborne MD Work Phone: 4(290)562-544127 [place] [address] 04-19-2024 16:05-0500 Systolic blood pressure 144 mm[Hg] Dr. Amanda Osborne MD Work Phone: 2(922)154-898127 [place] [address] 04-11-2024 15:07-0500 Body temperature 98.5 [degF] Dr. Amanda Osborne MD Work Phone: 9(326)654-432727 [place] [address] 04-11-2024 15:07-0500 Diastolic blood pressure 79 mm[Hg] Dr. Amanda Osborne MD Work Phone: 4(236)861-488878 [place] [address] 04-11-2024 15:07-0500 Heart rate 75 /min Dr. Amanda Osborne MD Work Phone: 8(475)178-943227 [place] [address] 04-11-2024 15:07-0500 Respiratory rate 18 /min Dr. Amanda Osborne MD Work Phone: 0(355)834-306927 [place] [address] 04-11-2024 15:07-0500 SaO2% (BldA) [Mass fraction] 91 % Dr. Amanda Osborne MD Work Phone: 4(070)295-354127 [place] [address] 04-11-2024 15:07-0500 Systolic blood pressure 144 mm[Hg] Dr. Amanda Osborne MD Work Phone: 2(264)307-053327 [place] [address] 04-07-2024 11:07-0500 Body temperature 98.1 [degF] Dr. Amanda Osborne MD Work Phone: 5(789)184-614827 [place] [address] 04-07-2024 11:07-0500 Diastolic blood pressure 85 mm[Hg] Dr. Amanda Osborne MD Work Phone: 3(903)320-316627 [place] [address] 04-07-2024 11:07-0500 Heart rate 80 /min Dr. Amanda Osborne MD Work Phone: 1(724)218-408727 [place] [address] 04-07-2024 11:07-0500 Respiratory rate 18 /min Dr. Amanda Osborne MD Work Phone: 5(369)805-339678 [place] [address] 04-07-2024 11:07-0500 SaO2% (BldA) [Mass fraction] 91 % Dr. Amanda Osborne MD Work Phone: 5(757)151-772378 [place] [address] 04-07-2024 11:07-0500 Systolic blood pressure 125 mm[Hg] Dr. Amanda Osborne MD Work Phone: 1(921)063-582578 [place] [address] 04-03-2024 10:10-0500 Body temperature 98.8 [degF] Dr. Amanda Osborne MD Work Phone: 0(629)247-132378 [place] [address] 04-03-2024 10:10-0500 Diastolic blood pressure 73 mm[Hg] Dr. Amanda Osborne MD Work Phone: 6(331)691-225678 [place] [address] 04-03-2024 10:10-0500 Heart rate 80 /min Dr. Amanda Osborne MD Work Phone: 0(070)994-191478 [place] [address] 04-03-2024 10:10-0500 Respiratory rate 18 /min Dr. Amanda Osborne MD Work Phone: 7(644)055-909527 [place] [address] 04-03-2024 10:10-0500 SaO2% (BldA) [Mass fraction] 95 % Dr. Amanda Osborne MD Work Phone: 5(609)715-866827 [place] [address] 04-03-2024 10:10-0500 Systolic blood pressure 126 mm[Hg] Dr. Amanda Osborne MD Work Phone: 6(648)301-384127 [place] [address] 04-03-2024 04:13-0500 Body mass index (BMI) [Ratio] 30.7 kg/m2 Dr. Amanda Osborne MD Work Phone: 0(484)302-544627 [place] [address] 04-03-2024 04:13-0500 Body weight 83.[address] Amanda Osborne MD Work Phone: 3(420)614-994227 [place] [address] 04-03-2024 04:10-0500 Inhaled oxygen flow rate 1 L/min Dr. Amanda Osborne MD Work Phone: 5(811)870-425078 [place] [address] 03-30-2024 15:33-0500 Body mass index (BMI) [Ratio] 29.7 kg/m2 Dr. Amanda Osborne MD Work Phone: 1(531)295-148778 [place] [address] 03-30-2024 15:33-0500 Body temperature 98.9 [degF] Dr. Amanda Osborne MD Work Phone: 8(653)509-381378 [place] [address] 03-30-2024 15:33-0500 Body weight 83.[address] Amanda Osborne MD Work Phone: 0(516)083-438927 [place] [address] 03-30-2024 15:33-0500 Diastolic blood pressure 76 mm[Hg] Dr. Amanda Osborne MD Work Phone: 0(736)062-190127 [place] [address] 03-30-2024 15:33-0500 Heart rate 75 /min Dr. Amanda Osborne MD Work Phone: 0(773)883-737827 [place] [address] 03-30-2024 15:33-0500 Respiratory rate 18 /min Dr. Amanda Osborne MD Work Phone: 9(792)908-609378 [place] [address] 03-30-2024 15:33-0500 SaO2% (BldA) [Mass fraction] 91 % Dr. Amanda Osborne MD Work Phone: 4(282)874-007627 [place] [address] 03-30-2024 15:33-0500 Systolic blood pressure 114 mm[Hg] Dr. Amanda Osborne MD Work Phone: [facility] 03-21-2024 08:23-0500 Body height 165.1 cm Amanda Osborne MD Work Phone: [facility] 03-21-2024 08:23-0500 Body mass index (BMI) [Ratio] 30.79 kg/m2 Amanda Osborne MD Work Phone: [facility] 03-21-2024 08:23-0500 Body weight 83.92 kg Amanda Osborne MD Work Phone: [facility] 03-21-2024 08:23-0500 Diastolic blood pressure 78 mm[Hg] Amanda Osborne MD Work Phone: [facility] 03-21-2024 08:23-0500 Heart rate 98 /min Amanda Osborne MD Work Phone: [facility] 03-21-2024 08:23-0500 SaO2% (BldA) [Mass fraction] 95 % Amnada Osborne MD Work Phone: [facility] 03-21-2024 08:23-0500 Systolic blood pressure 138 mm[Hg] Amanda Osborne MD Work Phone: [facility] 03-03-2024 15:02-0500 Body mass index (BMI) [Ratio] 29.7 kg/m2 Dr. Amanda Osborne MD Work Phone: [facility] 03-03-2024 15:02-0500 Body temperature 98.3 [degF] Dr. Amanda Osborne MD Work Phone: [facility] 03-03-2024 15:02-0500 Body weight 83.[address] Amanda Osborne MD Work Phone: [facility] 03-03-2024 15:02-0500 Diastolic blood pressure 77 mm[Hg] Dr. Amanda Osborne MD Work Phone: [facility] 03-03-2024 15:02-0500 Heart rate 71 /min Dr. Amanda Osborne MD Work Phone: [facility] 03-03-2024 15:02-0500 Respiratory rate 18 /min Dr. Amanda Osborne MD Work Phone: [facility] 03-03-2024 15:02-0500 SaO2% (BldA) [Mass fraction] 91 % Dr. Amanda Osborne MD Work Phone: [facility] 03-03-2024 15:02-0500 Systolic blood pressure 120 mm[Hg] Dr. Amanda Osborne MD Work Phone: [facility] 03-01-2024 15:40-0500 Body height 165.1 cm Zenaida Silva MD Work Phone: [facility] 03-01-2024 15:40-0500 Body mass index (BMI) [Ratio] 30.65 kg/m2 Zenaida Silva MD Work Phone: [facility] 03-01-2024 15:40-0500 Body weight 83.55 kg Zenaida Silva MD Work Phone: [facility] 03-01-2024 15:40-0500 Diastolic blood pressure 76 mm[Hg] Zenaida Silva MD Work Phone: [facility] 03-01-2024 15:40-0500 Systolic blood pressure 132 mm[Hg] Zenaida Silva MD Work Phone: [facility] 01-05-2024 08:31-0400 Body height 165.1 cm Amanda Osborne MD Work Phone: [facility] 01-05-2024 08:31-0400 Body mass index (BMI) [Ratio] 30.6 kg/m2 Amanda Osborne MD Work Phone: [facility] 01-05-2024 08:31-0400 Body weight 83.42 kg Amanda Osborne MD Work Phone: [facility] 01-05-2024 08:31-0400 Diastolic blood pressure 76 mm[Hg] Amanda Osborne MD Work Phone: [facility] 01-05-2024 08:31-0400 Heart rate 65 /min Amanda Osborne MD Work Phone: [facility] 01-05-2024 08:31-0400 SaO2% (BldA) [Mass fraction] 96 % Amanda Osborne MD Work Phone: [facility] 01-05-2024 08:31-0400 Systolic blood pressure 110 mm[Hg] Amanda Osborne MD Work Phone: [facility] 08-04-2023 09:29-0400 Body height 165.1 cm Ab Puri KITCHEN CLERK-TESTS SUPERINTENDENT Work Phone: [facility] 08-04-2023 09:29-0400 Body mass index (BMI) [Ratio] 29.12 kg/m2 Ab Puri KITCHEN CLERK-TESTS SUPERINTENDENT Work Phone: [facility] 08-04-2023 09:29-0400 Body weight 79.38 kg Ab Puri KITCHEN CLERK-TESTS SUPERINTENDENT Work Phone: [facility] 08-04-2023 09:29-0400 Diastolic blood pressure 74 mm[Hg] Ab Puri KITCHEN CLERK-TESTS SUPERINTENDENT Work Phone: [facility] 08-04-2023 09:29-0400 Heart rate 71 /min Ab Puri KITCHEN CLERK-TESTS SUPERINTENDENT Work Phone: [facility] 08-04-2023 09:29-0400 Respiratory rate 18 /min Ab Puri KITCHEN CLERK-TESTS SUPERINTENDENT Work Phone: [facility] 08-04-2023 09:29-0400 SaO2% (BldA) [Mass fraction] 94 % Ab Puri KITCHEN CLERK-TESTS SUPERINTENDENT Work Phone: [facility] 08-04-2023 09:29-0400 Systolic blood pressure 134 mm[Hg] Ab Puri KITCHEN CLERK-TESTS SUPERINTENDENT Work Phone: [facility] 04-17-2023 15:17-0500 Body height 165.1 cm Amanda Osborne MD Work Phone: [facility] 04-17-2023 15:17-0500 Body mass index (BMI) [Ratio] 29.27 kg/m2 Amanda Osborne MD Work Phone: [facility] 04-17-2023 15:17-0500 Body weight 79.79 kg Amanda Osborne MD Work Phone: [facility] 04-17-2023 15:17-0500 Diastolic blood pressure 76 mm[Hg] Amanda Osborne MD Work Phone: [facility] 04-17-2023 15:17-0500 Heart rate 52 /min Amanda Osborne MD Work Phone: [facility] 04-17-2023 15:17-0500 SaO2% (BldA) [Mass fraction] 98 % Amanda Osborne MD Work Phone: [facility] 04-17-2023 15:17-0500 Systolic blood pressure 110 mm[Hg] Amanda Osborne MD Work Phone: [facility] 02-24-2023 08:43-0500 Body height 165.1 cm Zenaida Silva MD Work Phone: [facility] 02-24-2023 08:43-0500 Body mass index (BMI) [Ratio] 29.82 kg/m2 Zenaida Silva MD Work Phone: [facility] 02-24-2023 08:43-0500 Body weight 81.28 kg Zenaida Silva MD Work Phone: [facility] 02-24-2023 08:43-0500 Diastolic blood pressure 72 mm[Hg] Zenaida Silva MD Work Phone: [facility] 02-24-2023 08:43-0500 Systolic blood pressure 136 mm[Hg] Zenaida Silva MD Work Phone: [facility] 01-23-2023 15:27-0500 Body temperature 97.9 [degF] Dr. Amanda Osborne Work Phone: [facility] 01-23-2023 15:27-0500 Diastolic blood pressure 54 mm[Hg] Dr. Amanda Osborne Work Phone: [facility] 01-23-2023 15:27-0500 Heart rate 80 /min Dr. Amanda Osborne Work Phone: [facility] 01-23-2023 15:27-0500 Respiratory rate 16 /min Dr. Amnada Osborne Work Phone: [facility] 01-23-2023 15:27-0500 SaO2% (BldA) [Mass fraction] 94 % Dr. Amanda Osborne Work Phone: [facility] 01-23-2023 15:27-0500 Systolic blood pressure 120 mm[Hg] Dr. Amanda Osborne Work Phone: [facility] 01-22-2023 01:51-0500 Inhaled oxygen flow rate 2 L/min Dr. Amanda Osborne Work Phone: [facility] 01-21-2023 18:18-0500 Body height 167.[address] Amanda Osborne Work Phone: [facility] 01-21-2023 18:18-0500 Body mass index (BMI) [Ratio] 28.8 kg/m2 Dr. Amanda Osborne Work Phone: [facility] 01-21-2023 18:18-0500 Body weight [address] Amanda Osborne Work Phone: [facility] 01-13-2023 11:38-0400 Body temperature 98.2 [degF] Dr. Amanda Osborne Work Phone: [facility] 01-13-2023 11:38-0400 Heart rate 74 /min Dr. Amanda Osborne Work Phone: [facility] 01-13-2023 11:38-0400 Respiratory rate 16 /min Dr. Amanda Osborne Work Phone: [facility] 01-13-2023 11:38-0400 SaO2% (BldA) [Mass fraction] 96 % Dr. Amanda Osborne Work Phone: [facility] 12-23-2022 13:14-0400 Body temperature 98.6 [degF] Dr. Amanda Osborne Work Phone: 8(890)219-787849 [place] [address] 12-23-2022 13:14-0400 Heart rate 107 /min Dr. Amanda Osborne Work Phone: [facility] 12-23-2022 13:14-0400 Respiratory rate 16 /min Dr. Amanda Osborne Work Phone: [facility] 12-23-2022 13:14-0400 SaO2% (BldA) [Mass fraction] 97 % Dr. Amanda Osborne Work Phone: [facility] 12-10-2022 15:23-0400 Body temperature 98.4 [degF] Dr. Amanda Osborne Work Phone: [facility] 12-10-2022 15:23-0400 Diastolic blood pressure 76 mm[Hg] Dr. Amanda Osborne Work Phone: [facility] 12-10-2022 15:23-0400 Heart rate 76 /min Dr. Amanda Osborne Work Phone: [facility] 12-10-2022 15:23-0400 Respiratory rate 16 /min Dr. Amanda Osborne Work Phone: [facility] 12-10-2022 15:23-0400 SaO2% (BldA) [Mass fraction] 92 % Dr. Amanda Osborne Work Phone: [facility] 12-10-2022 15:23-0400 Systolic blood pressure 130 mm[Hg] Dr. Amanda Osborne Work Phone: [facility] 11-24-2022 16:51-0400 Body temperature 98.7 [degF] Dr. Amanda Osborne Work Phone: [facility] 11-24-2022 16:51-0400 Heart rate 90 /min Dr. Amanda Osborne Work Phone: 5(518)984-662627 [place] [address] 11-24-2022 16:51-0400 Respiratory rate 18 /min Dr. Amanda Osborne Work Phone: [facility] 11-24-2022 16:51-0400 SaO2% (BldA) [Mass fraction] 94 % Dr. Amanda Osborne Work Phone: [facility] 11-13-2022 13:36-0400 Body temperature 98.4 [degF] Dr. Amanda Osborne Work Phone: [facility] 11-13-2022 13:36-0400 Heart rate 84 /min Dr. Amanda Osborne Work Phone: [facility] 11-13-2022 13:36-0400 Respiratory rate 16 /min Dr. Amanda Osborne Work Phone: [facility] 11-13-2022 13:36-0400 SaO2% (BldA) [Mass fraction] 95 % Dr. Amanda Osborne Work Phone: [facility] 10-30-2022 13:28-0400 Body temperature 98.5 [degF] Dr. Amanda Osborne Work Phone: [facility] 10-30-2022 13:28-0400 Heart rate 83 /min Dr. Amanda Osborne Work Phone: [facility] 10-30-2022 13:28-0400 Respiratory rate 16 /min Dr. Amanda Osborne Work Phone: [facility] 10-30-2022 13:28-0400 SaO2% (BldA) [Mass fraction] 95 % Dr. Amanda Osborne Work Phone: [facility] 10-23-2022 10:21-0400 Body height 167.[address] Amanda Osborne Work Phone: [facility] 10-23-2022 10:21-0400 Body temperature 98.1 [degF] Dr. Amanda Osborne Work Phone: [facility] 10-23-2022 10:21-0400 Heart rate 94 /min Dr. Amanda Osborne Work Phone: [facility] 10-23-2022 10:21-0400 Respiratory rate 16 /min Dr. Amanda Osborne Work Phone: [facility] 10-23-2022 10:21-0400 SaO2% (BldA) [Mass fraction] 94 % Dr. Amanda Osborne Work Phone: [facility] 10-16-2022 11:27-0400 Body temperature 98.2 [degF] Dr. Amanda Osborne Work Phone: [facility] 10-16-2022 11:27-0400 Heart rate 60 /min Dr. Amanda Osborne Work Phone: [facility] 10-16-2022 11:27-0400 Respiratory rate 16 /min Dr. Amanda Osborne Work Phone: [facility] 10-16-2022 11:27-0400 SaO2% (BldA) [Mass fraction] 96 % Dr. Amanda Osborne Work Phone: 2(440)466-626178 [place] [address] 10-09-2022 11:51-0400 Body temperature 98.2 [degF] Dr. Amanda Osborne Work Phone: 5(759)785-860627 [place] [address] 10-09-2022 11:51-0400 Heart rate 86 /min Dr. Amanda Osborne Work Phone: 5(913)455-743178 [place] [address] 10-09-2022 11:51-0400 Respiratory rate 16 /min Dr. Amanda Osborne Work Phone: 7(075)876-699678 [place] [address] 10-09-2022 11:51-0400 SaO2% (BldA) [Mass fraction] 92 % Dr. Amanda Osborne Work Phone: 2(995)627-943378 [place] [address] 10-05-2022 10:18-0400 Body temperature 98.2 [degF] Dr. Amanda Osborne Work Phone: 3(423)407-558878 [place] [address] 10-05-2022 10:18-0400 Diastolic blood pressure 55 mm[Hg] Dr. Amanda Osborne Work Phone: 1(227)436-583578 [place] [address] 10-05-2022 10:18-0400 Heart rate 60 /min Dr. Amanda Osborne Work Phone: 2(482)730-682878 [place] [address] 10-05-2022 10:18-0400 Respiratory rate 16 /min Dr. Amanda Osborne Work Phone: 1(707)936-659378 [place] [address] 10-05-2022 10:18-0400 SaO2% (BldA) [Mass fraction] 95 % Dr. Amanda Osborne Work Phone: 0(704)965-796978 [place] [address] 10-05-2022 10:18-0400 Systolic blood pressure 116 mm[Hg] Dr. Amanda Osborne Work Phone: 9(093)076-601878 [place] [address] 10-03-2022 15:13-0400 Body height 167.[address] Amanda Osborne Work Phone: 6(914)893-221878 [place] [address] 10-03-2022 15:13-0400 Body mass index (BMI) [Ratio] 27.8 kg/m2 Dr. Amnada Osborne Work Phone: [facility] 10-03-2022 15:13-0400 Body weight 78.[address] Amanda Osborne Work Phone: [facility] 10-03-2022 13:15-0400 Inhaled oxygen flow rate 4 L/min Dr. Amanda Osborne Work Phone: [facility] 09-23-2022 08:32-0400 Body mass index (BMI) [Ratio] 27.6 kg/m2 Dr. Amanda Osborne Work Phone: 9(141)553-184527 [place] [address] 09-23-2022 08:32-0400 Body temperature 97.7 [degF] Dr. Amanda Osborne Work Phone: 5(295)208-204078 [place] [address] 09-23-2022 08:32-0400 Body weight 77.[address] Amanda Osborne Work Phone: 0(332)071-157927 [place] [address] 09-23-2022 08:32-0400 Diastolic blood pressure 72 mm[Hg] Dr. Amanda Osborne Work Phone: 9(716)276-496327 [place] [address] 09-23-2022 08:32-0400 Heart rate 60 /min Dr. Amanda Osborne Work Phone: 6(945)896-024327 [place] [address] 09-23-2022 08:32-0400 Respiratory rate 16 /min Dr. Amanda Osborne Work Phone: 0(205)418-091327 [place] [address] 09-23-2022 08:32-0400 SaO2% (BldA) [Mass fraction] 96 % Dr. Amanda Osborne Work Phone: 1(566)911-315527 [place] [address] 09-23-2022 08:32-0400 Systolic blood pressure 115 mm[Hg] Dr. Amanda Osborne Work Phone: 1(378)517-936527 [place] [address] 07-29-2022 14:54-0400 Body temperature 98.6 [degF] Dr. Amanda Osborne Work Phone: 8(665)503-992427 [place] [address] 07-29-2022 14:54-0400 Heart rate 87 /min Dr. Amanda Osborne Work Phone: [facility] 07-29-2022 14:54-0400 Respiratory rate 18 /min Dr. Amanda Osborne Work Phone: [facility] 07-29-2022 14:54-0400 SaO2% (BldA) [Mass fraction] 95 % Dr. Amanda Osborne Work Phone: 7(163)112-129527 [place] [address] 07-01-2022 14:51-0400 Body temperature 97.1 [degF] Dr. Amanda Osborne Work Phone: 2(790)904-490427 [place] [address] 07-01-2022 14:51-0400 Heart rate 75 /min Dr. Amanda Osborne Work Phone: 7(383)636-190127 [place] [address] 07-01-2022 14:51-0400 Respiratory rate 17 /min Dr. Amanda Osborne Work Phone: 3(363)166-280627 [place] [address] 07-01-2022 14:51-0400 SaO2% (BldA) [Mass fraction] 93 % Dr. Amanda Osborne Work Phone: [facility] 06-16-2022 15:11-0400 Body temperature 98.4 [degF] Dr. Amanda Osborne Work Phone: 5(541)028-006827 [place] [address] 06-16-2022 15:11-0400 Heart rate 77 /min Dr. Amanda Osborne Work Phone: [facility] 06-16-2022 15:11-0400 Respiratory rate 18 /min Dr. Amanda Osborne Work Phone: [facility] 06-16-2022 15:11-0400 SaO2% (BldA) [Mass fraction] 96 % Dr. Amanda Osborne Work Phone: [facility] 06-10-2022 13:47-0400 Body temperature 98.5 [degF] Dr. Zenaida Barrett Work Phone: [facility] 06-10-2022 13:47-0400 Heart rate 93 /min Dr. Zenaida Barrett Work Phone: [facility] 06-10-2022 13:47-0400 Respiratory rate 18 /min Dr. Zenaida Barrett Work Phone: [facility] 06-10-2022 13:47-0400 SaO2% (BldA) [Mass fraction] 96 % Dr. Zenaida Barrett Work Phone: [facility] 06-02-2022 15:24-0400 Body temperature 98.7 [degF] Dr. Zenaida Barrett Work Phone: [facility] 06-02-2022 15:24-0400 Diastolic blood pressure 68 mm[Hg] Dr. Zenaida Barrett Work Phone: [facility] 06-02-2022 15:24-0400 Heart rate 72 /min Dr. Zenaida Barrett Work Phone: [facility] 06-02-2022 15:24-0400 Respiratory rate 18 /min Dr. Zenaida Barrett Work Phone: [facility] 06-02-2022 15:24-0400 SaO2% (BldA) [Mass fraction] 97 % Dr. Zenaida Barrett Work Phone: [facility] 06-02-2022 15:24-0400 Systolic blood pressure 117 mm[Hg] Dr. Zenaida Barrett Work Phone: [facility] 05-30-2022 16:49-0400 Body height 167.[address] Zenaida Barrett Work Phone: [facility] 05-30-2022 16:49-0400 Body mass index (BMI) [Ratio] 27.3 kg/m2 Dr. Zenaida Barrett Work Phone: [facility] 05-30-2022 16:49-0400 Body weight 76.[address] Zenaida Barrett Work Phone: [facility] 05-30-2022 16:00-0400 Inhaled oxygen flow rate 4 L/min Dr. Zenaida Barrett Work Phone: [facility] 05-27-2022 09:30-0400 Body temperature 97.4 [degF] Dr. Zenaida Barrett Work Phone: [facility] 05-27-2022 09:30-0400 Diastolic blood pressure 64 mm[Hg] Dr. Zenaida Barrett Work Phone: [facility] 05-27-2022 09:30-0400 Heart rate 59 /min Dr. Zenaida Barrett Work Phone: [facility] 05-27-2022 09:30-0400 Respiratory rate 17 /min Dr. Zenaida Barrett Work Phone: [facility] 05-27-2022 09:30-0400 Systolic blood pressure 106 mm[Hg] Dr. Zenaida Barrett Work Phone: [facility] 05-22-2022 11:43-0500 Body temperature 97.8 [degF] Dr. Zenaida Barrett Work Phone: [facility] 05-22-2022 11:43-0500 Heart rate 85 /min Dr. Zenaida Barrett Work Phone: [facility] 05-22-2022 11:43-0500 Respiratory rate 17 /min Dr. Zenaida Barrett Work Phone: [facility] 05-22-2022 11:43-0500 SaO2% (BldA) [Mass fraction] 92 % Dr. Zenaida Barrett Work Phone: [facility] 05-14-2022 08:28-0500 Body temperature 98.1 [degF] Dr. Zenaida Barrett Work Phone: [facility] 05-14-2022 08:28-0500 Heart rate 68 /min Dr. Zenaida Barrett Work Phone: [facility] 05-14-2022 08:28-0500 Respiratory rate 16 /min Dr. Zenaida Barrett Work Phone: [facility] 05-14-2022 08:28-0500 SaO2% (BldA) [Mass fraction] 90 % Dr. Zenaida Barrett Work Phone: [facility] 05-13-2022 10:10-0500 Body temperature 97 [degF] Dr. Zenaida Barrett Work Phone: [facility] 05-13-2022 10:10-0500 Diastolic blood pressure 68 mm[Hg] Dr. Zenaida Barrett Work Phone: [facility] 05-13-2022 10:10-0500 Heart rate 73 /min Dr. Zenaida Barrett Work Phone: [facility] 05-13-2022 10:10-0500 Respiratory rate 16 /min Dr. Zenaida Barrett Work Phone: [facility] 05-13-2022 10:10-0500 Systolic blood pressure 111 mm[Hg] Dr. Zenaida Barrett Work Phone: [facility] 05-07-2022 08:45-0500 Body height 165.1 cm Amanda Osborne Work Phone: [place] [address] [employer] Work Phone: 05-07-2022 08:45-0500 Body mass index (BMI) [Ratio] 27.99 kg/m2 Amanda Osborne Work Phone: [place] [address] [employer] Work Phone: 05-07-2022 08:45-0500 Body surface area Derived from formula 1.84 m2 Amanda Núñezcuate Work Phone: [place] [address] [employer] Work Phone: 05-07-2022 08:45-0500 Body weight 76.3 kg Amanda Osborne Work Phone: [place] [address] [employer] Work Phone: 05-07-2022 08:45-0500 Diastolic blood pressure 66 mm[Hg] Amanda Osborne Work Phone: [address] Work Phone: 05-07-2022 08:45-0500 Systolic blood pressure 108 mm[Hg] Amanda Osborne Work Phone: [address] Work Phone: 04-28-2022 08:25-0500 Body temperature 97.4 [degF] Dr. Zenaida Barrett Work Phone: [facility] 04-28-2022 08:25-0500 Diastolic blood pressure 85 mm[Hg] Dr. Zenaida Barrett Work Phone: [facility] 04-28-2022 08:25-0500 Heart rate 71 /min Dr. Zenaida Barrett Work Phone: [facility] 04-28-2022 08:25-0500 Respiratory rate 16 /min Dr. Zenaida Barrett Work Phone: [facility] 04-28-2022 08:25-0500 Systolic blood pressure 131 mm[Hg] Dr. Zenaida Barrett Work Phone: [facility] 04-25-2022 09:04-0500 Body height 167.[address] Zenaida Barrett Work Phone: [facility] 04-25-2022 09:04-0500 Body temperature 97.3 [degF] Dr. Zenaida Barrett Work Phone: [facility] 04-25-2022 09:04-0500 Heart rate 66 /min Dr. Zenaida Barrett Work Phone: [facility] 04-25-2022 09:04-0500 Respiratory rate 17 /min Dr. Zenaida Barrett Work Phone: [facility] 04-25-2022 09:04-0500 SaO2% (BldA) [Mass fraction] 96 % Dr. Zenaida Barrett Work Phone: [facility] 04-18-2022 14:00-0500 Body temperature 97.6 [degF] Dr. Zenaida Barrett Work Phone: [facility] 04-18-2022 14:00-0500 Heart rate 65 /min Dr. Zenaida Barrett Work Phone: [facility] 04-18-2022 14:00-0500 Respiratory rate 18 /min Dr. Zenaida Barrett Work Phone: [facility] 04-18-2022 14:00-0500 SaO2% (BldA) [Mass fraction] 96 % Dr. Zenaida Barrett Work Phone: [facility] 04-15-2022 16:20-0500 Body temperature 98.5 [degF] Dr. Zenaida Barrett Work Phone: [facility] 04-15-2022 16:20-0500 Heart rate 77 /min Dr. Zenaida Barrett Work Phone: [facility] 04-15-2022 16:20-0500 Respiratory rate 18 /min Dr. Zenaida Barrett Work Phone: [facility] 04-15-2022 16:20-0500 SaO2% (BldA) [Mass fraction] 93 % Dr. Zenaida Barrett Work Phone: [facility] 04-14-2022 14:06-0500 Body temperature 98.5 [degF] Dr. Zenaida Barrett Work Phone: [facility] 04-14-2022 14:06-0500 Diastolic blood pressure 46 mm[Hg] Dr. Zenaida Barrett Work Phone: [facility] 04-14-2022 14:06-0500 Heart rate 75 /min Dr. Zenaida Barrett Work Phone: [facility] 04-14-2022 14:06-0500 Respiratory rate 18 /min Dr. Zenaida Barrett Work Phone: [facility] 04-14-2022 14:06-0500 SaO2% (BldA) [Mass fraction] 95 % Dr. Zenaida Barrett Work Phone: [facility] 04-14-2022 14:06-0500 Systolic blood pressure 108 mm[Hg] Dr. Zenaida Barrett Work Phone: [facility] 04-13-2022 20:37-0500 Inhaled oxygen flow rate 2 L/min Dr. Zenaida Barrett Work Phone: [facility] 04-11-2022 06:47-0500 Body height 167.[address] Zenaida Barrett Work Phone: [facility] 04-11-2022 06:47-0500 Body mass index (BMI) [Ratio] 27.3 kg/m2 Dr. Zenaida Barrett Work Phone: [facility] 04-11-2022 06:47-0500 Body weight [address] Zenaida Barrett Work Phone: [facility] 04-01-2022 11:16-0500 Body mass index (BMI) [Ratio] 28.1 kg/m2 Dr. Zenaida Barrett Work Phone: [facility] 04-01-2022 11:16-0500 Body temperature 98.3 [degF] Dr. Zenaida Barrett Work Phone: [facility] 04-01-2022 11:16-0500 Body weight 77.[address] Zenaida Barrett Work Phone: [facility] 04-01-2022 11:16-0500 Diastolic blood pressure 76 mm[Hg] Dr. Zenaida Barrett Work Phone: [facility] 04-01-2022 11:16-0500 Heart rate 79 /min Dr. Zenaida Barrett Work Phone: [facility] 04-01-2022 11:16-0500 Respiratory rate 16 /min Dr. Zenaida Barrett Work Phone: [facility] 04-01-2022 11:16-0500 SaO2% (BldA) [Mass fraction] 95 % Dr. Zenaida Barrett Work Phone: [facility] 04-01-2022 11:16-0500 Systolic blood pressure 124 mm[Hg] Dr. Zenaida Barrett Work Phone: [facility] 03-10-2022 04:13-0500 Diastolic blood pressure 69 mm[Hg] Amanda Osborne Other Phone: [facility] 03-10-2022 04:13-0500 Heart rate 79 /min Amanda Osborne Other Phone: [facility] 03-10-2022 04:13-0500 Respiratory rate 18 /min Amanda Osborne Other Phone: [facility] 03-10-2022 04:13-0500 SaO2% (BldA) [Mass fraction] 94 % Amanda Osborne Other Phone: [facility] 03-10-2022 04:13-0500 Systolic blood pressure 110 mm[Hg] Amanda Osborne Other Phone: [facility] 03-05-2022 11:39-0500 Body height 165.1 cm Amanda Osborne Work Phone: [facility] Work Phone: 03-05-2022 11:39-0500 Body mass index (BMI) [Ratio] 28.64 kg/m2 Amanda Osborne Work Phone: [facility] Work Phone: 03-05-2022 11:39-0500 Body surface area Derived from formula 1.86 m2 Amanda Osborne Work Phone: [facility] Work Phone: 03-05-2022 11:39-0500 Body weight 78.08 kg Amanda Osborne Work Phone: [facility] Work Phone: 03-05-2022 11:39-0500 Diastolic blood pressure 68 mm[Hg] Amanda Osborne Work Phone: [facility] Work Phone: 03-05-2022 11:39-0500 Heart rate 78 /min Amanda Osborne Work Phone: [facility] Work Phone: 03-05-2022 11:39-0500 SaO2% (BldA) [Mass fraction] 93 % Amanda Osborne Work Phone: [facility] Work Phone: 03-05-2022 11:39-0500 Systolic blood pressure 100 mm[Hg] Amanda Osborne Work Phone: [facility] Work Phone: 03-02-2022 05:03-0500 Body temperature 99.5 [degF] Amanda Osborne Other Phone: [facility] 03-02-2022 05:03-0500 Diastolic blood pressure 62 mm[Hg] Amanda Núñezorf Other Phone: [facility] 03-02-2022 05:03-0500 Heart rate 100 /min Amanda Núñezorf Other Phone: [facility] 03-02-2022 05:03-0500 Respiratory rate 16 /min Amanda Núñezorf Other Phone: [facility] 03-02-2022 05:03-0500 SaO2% (BldA) [Mass fraction] 93 % Amanda Núñezorf Other Phone: [facility] 03-02-2022 05:03-0500 Systolic blood pressure 117 mm[Hg] Amanda Longsdorf Other Phone: [facility] 01-09-2022 16:02-0400 Body mass index (BMI) [Ratio] 28.3 kg/m2 Dr. Zenaida Barrett Work Phone: [facility] 01-09-2022 16:02-0400 Body temperature 98.4 [degF] Dr. Zenaida Barrett Work Phone: [facility] 01-09-2022 16:02-0400 Body weight 78.[address] Zenaida Barrett Work Phone: [facility] 01-09-2022 16:02-0400 Diastolic blood pressure 79 mm[Hg] Dr. Zenaida Barrett Work Phone: [facility] 01-09-2022 16:02-0400 Heart rate 81 /min Dr. Zenaida Barrett Work Phone: [facility] 01-09-2022 16:02-0400 Respiratory rate 16 /min Dr. Zenaida Barrett Work Phone: [facility] 01-09-2022 16:02-0400 SaO2% (BldA) [Mass fraction] 94 % Dr. Zenaida Barertt Work Phone: [facility] 01-09-2022 16:02-0400 Systolic blood pressure 127 mm[Hg] Dr. Zenaida Barrett Work Phone: [facility] 10-29-2021 15:36-0400 Body height 165.1 cm Amanda Osborne Work Phone: [place] [address] [employer] Work Phone: 10-29-2021 15:36-0400 Body mass index (BMI) [Ratio] 27.55 kg/m2 Amanda Osborne Work Phone: [place] [address] [employer] Work Phone: 10-29-2021 15:36-0400 Body surface area Derived from formula 1.83 m2 Amanda Osbrone Work Phone: [place] [address] [employer] Work Phone: 10-29-2021 15:36-0400 Body weight 75.1 kg Amanda Osborne Work Phone: [address] Work Phone: 10-29-2021 15:36-0400 Diastolic blood pressure 76 mm[Hg] Amanda Osborne Work Phone: [address] Work Phone: 10-29-2021 15:36-0400 Systolic blood pressure 124 mm[Hg] Amanda Osborne Work Phone: [address] Work Phone: 07-01-2021 12:55-0400 Body height 165.1 cm Amanda Osborne Work Phone: [facility] Work Phone: 07-01-2021 12:55-0400 Body temperature 98.2 [degF] Amanda Osborne Work Phone: [facility] Work Phone: 07-01-2021 12:55-0400 Diastolic blood pressure 78 mm[Hg] Amanda Osborne Work Phone: [facility] Work Phone: 07-01-2021 12:55-0400 Heart rate 66 /min Amanda Osborne Work Phone: [facility] Work Phone: 07-01-2021 12:55-0400 Systolic blood pressure 127 mm[Hg] Amanda Osborne Work Phone: [facility] Work Phone: 04-17-2021 13:16-0500 Body height 165.1 cm Amanda Osborne Work Phone: [place] [address] [place] Work Phone: 04-17-2021 13:16-0500 Body mass index (BMI) [Ratio] 25.31 kg/m2 Amanda Núñezorf Work Phone: [place] [address] [place] Work Phone: 04-17-2021 13:16-0500 Body surface area Derived from formula 1.76 m2 Amanda Núñezorf Work Phone: [place] [address] [place] Work Phone: 04-17-2021 13:16-0500 Body temperature 97.7 [degF] Amanda NúñezEnsygnia Work Phone: [place] [address] [place] Work Phone: 04-17-2021 13:16-0500 Body weight 69 kg Amanda Osborne Work Phone: [place] [address] [place] Work Phone: 04-17-2021 13:16-0500 Diastolic blood pressure 64 mm[Hg] Amanda Osborne Work Phone: [place] [address] [place] Work Phone: 04-17-2021 13:16-0500 Systolic blood pressure 110 mm[Hg] Amanda Osborne Work Phone: [place] [address] [place] Work Phone: 04-02-2021 08:44-0500 Body height 165.1 cm Amanda Núñezorf Work Phone: [place] [address] [place] Work Phone: 04-02-2021 08:44-0500 Body mass index (BMI) [Ratio] 25.17 kg/m2 Amanda Núñezorf Work Phone: [place] [address] [place] Work Phone: 04-02-2021 08:44-0500 Body surface area Derived from formula 1.76 m2 Amanda Osborne Work Phone: [place] [address] [place] Work Phone: 04-02-2021 08:44-0500 Body temperature 98.2 [degF] Amanda Lisdorf Work Phone: [place] [address] [place] Work Phone: 04-02-2021 08:44-0500 Body weight 68.59 kg Amanda Lisdorf Work Phone: [place] [address] [place] Work Phone: 04-02-2021 08:44-0500 Diastolic blood pressure 64 mm[Hg] Amanda Lisdcuate Work Phone: [place] [address] [place] Work Phone: 04-02-2021 08:44-0500 Systolic blood pressure 112 mm[Hg] Amanda Lisdorf Work Phone: [address] Work Phone: 03-16-2021 14:44-0500 Body height 165.1 cm Monica Kwan PA Work Phone: [facility] 03-16-2021 14:44-0500 Body mass index (BMI) [Ratio] 25.14 kg/m2 Monica Kwan PA Work Phone: [facility] 03-16-2021 14:44-0500 Body temperature 99.3 [degF] Monica Kwan PA Work Phone: [facility] 03-16-2021 14:44-0500 Body weight 68.54 kg Monica Kwan PA Work Phone: [facility] 03-16-2021 14:44-0500 Diastolic blood pressure 70 mm[Hg] Monica Kwan PA Work Phone: [facility] 03-16-2021 14:44-0500 Heart rate 77 /min Monicarossy Kwan PA Work Phone: [facility] 03-16-2021 14:44-0500 Respiratory rate 16 /min Monicarossy Kwan PA Work Phone: [facility] 03-16-2021 14:44-0500 SaO2% (BldA) [Mass fraction] 96 % Monicarossy Kwan PA Work Phone: [facility] 03-16-2021 14:44-0500 Systolic blood pressure 116 mm[Hg] Monicaessie Kwan PA Work Phone: [facility] 01-04-2021 08:38-0400 Body height 165.1 cm Amanda Osborne Work Phone: [employer] [address] [employer] Work Phone: 01-04-2021 08:38-0400 Body mass index (BMI) [Ratio] 23.96 kg/m2 Amanda Osborne Work Phone: [employer] [address] [employer] Work Phone: 01-04-2021 08:38-0400 Body surface area Derived from formula 1.72 m2 Amanda Osborne Work Phone: [employer] [address] [place] Work Phone: 01-04-2021 08:38-0400 Body temperature 97.3 [degF] Amanda Osborne Work Phone: [place] [address] [place] Work Phone: 01-04-2021 08:38-0400 Body weight 65.32 kg Amandafox Osborne Work Phone: [place] [address] [place] Work Phone: 01-04-2021 08:38-0400 Diastolic blood pressure 74 mm[Hg] Amanda Rossy Osborne Work Phone: [address] Work Phone: 01-04-2021 08:38-0400 Systolic blood pressure 120 mm[Hg] Amanda Osborne Work Phone: [address] Work Phone: 10-30-2020 16:38-0400 Body height 165.1 cm Amanda Osborne Work Phone: [facility] Work Phone: 10-30-2020 16:38-0400 Body mass index (BMI) [Ratio] 24.37 kg/m2 Amanda Osborne Work Phone: [facility] Work Phone: 10-30-2020 16:38-0400 Body surface area Derived from formula 1.73 m2 Amanda Osborne Work Phone: [facility] Work Phone: 10-30-2020 16:38-0400 Body temperature 98.2 [degF] Amanda Osborne Work Phone: [facility] Work Phone: 10-30-2020 16:38-0400 Body weight 66.43 kg Amanda Osborne Work Phone: [facility] Work Phone: 10-30-2020 16:38-0400 Diastolic blood pressure 70 mm[Hg] Amanda Osborne Work Phone: [facility] Work Phone: 10-30-2020 16:38-0400 Heart rate 66 /min Amanda Osborne Work Phone: [facility] Work Phone: 10-30-2020 16:38-0400 SaO2% (BldA) [Mass fraction] 96 % Amanda Rossy Osborne Work Phone: [facility] Work Phone: 10-30-2020 16:38-0400 Systolic blood pressure 116 mm[Hg] Amanda Osborne Work Phone: [facility] Work Phone: Encounters Encounter Date Encounter Type Care Provider Facility Start: 08-17-2024 ambulatory [facility] Facility:[facility] Start: 07-28-2024 End: 07-28-[address] Marlon Allen MD -[facility] Work Phone: Start: 07-28-2024 End: 07-28-[address] Amanda Osborne MD Work Phone: [facility] Work Phone: Start: 07-24-2024 ambulatory [facility] Facility:[facility] Start: 07-07-2024 End: 07-07-[address] Marlon Allen MD -[facility] Work Phone: Start: 07-07-2024 End: 07-07-2024 ambulatory [facility] Facility[facility] Start: 06-20-2024 Non-patient / Non-visit Dr. Marlon jansen MD -[facility] Start: 06-20-2024 End: 07-13-[address] [facility] Work Phone: Start: 06-20-2024 End: 07-13-2024 ambulatory [facility] Facility:[facility] Start: 06-06-2024 End: 06-13-[address] Amanda Osborne MD Work Phone: [facility] Work Phone: Start: 06-06-2024 End: 06-13-[address] [facility] Work Phone: Start: [facility] Start: 06-06-2024 Non-patient / Non-visit Dr. Marlon jasnen MD -[facility] Start: 05-23-2024 ambulatory Marlon Tiffany Facility:[facility] Start: 05-23-2024 Non-patient / Non-visit Dr. Marlon jansen MD -[facility] Start: 05-16-2024 [facility] Start: 05-16-2024 Non-patient / Non-visit Dr. Marlon jansen MD -[facility] Start: 05-10-2024 End: 05-10-2024 Patient encounter procedure Rachel Beard BUILDING MAINTENANCE CUSTODIAN-C -[facility] Work Phone: Start: 05-10-2024 End: 05-10-2024 ambulatory [facility] Start: 05-06-2024 End: 05-06-[address] Marlon Allen MD -[facility] Work Phone: Start: 05-06-2024 End: 05-06-2024 [facility] Start: 05-04-2024 Encounter for other preprocedural examination [facility] Start: 05-03-2024 End: 05-03-[address] Marlon Allen MD -[facility] Work Phone: Start: 05-03-2024 End: 05-03-2024 ambulatory [facility] Facility:[facility] Start: 04-26-2024 End: 04-26-2024 Patient encounter procedure Rachel Beard BUILDING MAINTENANCE CUSTODIAN-C -[facility] Work Phone: Start: 04-26-2024 End: 04-26-2024 [facility] Start: 04-19-2024 End: 04-19-2024 Patient encounter procedure Rachel Beard BUILDING MAINTENANCE CUSTODIAN-C -[facility] Work Phone: Start: 04-19-2024 End: 04-19-2024 [facility] Start: 04-11-2024 End: 04-11-2024 Patient encounter procedure Rachel BYNUM -[facility] Work Phone: Start: 04-11-2024 End: 04-11-2024 [facility] Start: 04-07-2024 End: 04-07-[address] Marlon Allen MD -[facility] Work Phone: Start: 04-07-2024 End: 04-07-2024 ambulatory [facility] Start: 04-03-2024 Non-patient / Non-visit Dr. Marlon jansen MD -[facility] Start: 04-02-2024 Non-patient / Non-visit Dr. Marlon jansen MD -[facility] Start: 04-01-2024 Non-patient / Non-visit Dr. Marlon jansen MD -[facility] Start: 03-31-2024 End: 04-03-2024 Evaluation and management of inpatient Dr. Marlon Allen MD -Intensive Care Unit Work Phone: Start: 03-31-2024 Non-patient / Non-visit Dr. Marlon jansen MD -[facility] Start: 03-31-2024 End: 03-31-2024 Non-patient / Non-visit Dr. Sarah Leyva MD -[facility] Work Phone: Start: 03-31-2024 End: 03-31-2024 [facility] Start: 03-30-2024 End: 03-30-[address] Marlon Allen MD -[facility] Work Phone: Start: 03-30-2024 End: 03-30-2024 [facility] Start: 03-21-2024 End: 03-21-2024 Encounter for preprocedural laboratory examination AMANDA Blair [facility] Start: 03-21-2024 End: 03-21-2024 Office outpatient visit 25 minutes Amanda Osborne MD Work Phone: [facility] Comment on above: Preop examination (P rimary Dx); Gastroesophageal reflux disease, unspecified whether esophagitis present; Migraine without status migrainosus, not intractable, unspecified migraine type; Herpes; History of prophylactic mastectomy of both breasts Start: 03-21-2024 End: 03-21-2024 Preprocedural examination done Amanda Osborne MD Work Phone: [facility] Work Phone: Start: 03-21-2024 End: 03-21-2024 ambulatory AMANDA OSBORNE [facility] Start: 03-03-2024 Encounter for preprocedural laboratory examination Marlon Allen [facility] Start: 03-03-2024 End: 03-03-[address] Marlon Allen MD -[facility] Work Phone: Start: 03-03-2024 End: 03-03-2024 ambulatory Amanda Osborne Facility:[facility] Start: 03-01-2024 End: 03-01-2024 Patient encounter status Zenaida Silva MD Work Phone: [facility] Work Phone: Start: 03-01-2024 End: 03-01-2024 Periodic preventive med est patient 40-64yrs Zenaida Silva MD Work Phone: [facility] Comment on above: Vaginal Pap smear; Encounter for gynecological examination without abnormal finding Start: 03-01-2024 End: 03-01-2024 ambulatory ZENAIDA Gaytan [facility] Start: 03-01-2024 End: 03-01-2024 Encounter for gynecological examination (general) (routine) without abnormal findings ZENAIDA Gaytan [facility] Start: 01-11-2024 ambulatory Amanda Osborne Fac ility:[facility] Start: 01-05-2024 End: 01-05-2024 [facility] Start: 01-05-2024 End: 01-05-2024 Office outpatient visit 25 minutes Amanda Osborne MD Work Phone: [facility] Comment on above: History of prophylac tic mastectomy of both breasts (Primary Dx); Preop examination; Migraine without status migrainosus, not intractable, unspecified migraine type; Gastroesophageal reflux disease without esophagitis; Herpes Start: 01-05-2024 End: 01-05-2024 Preprocedural examination done Amanda Osborne MD Work Phone: [facility] Work Phone: Start: 01-04-2024 End: 01-04-2024 ambulatory Rachel Beard NP Facility:[facility] Start: 12-17-2023 End: 12-17-2023 ambulatory [facility] Start: 12-03-2023 End: 12-03-2023 ambulatory [facility] Facility:[facility] Start: 08-19-2023 ambulatory Rodrigo Abraham Facility:[facility] Start: 08-04-2023 End: 08-04-2023 ambulatory [facility] Start: 08-04-2023 End: 08-04-2023 Patient encounter procedure Ab Puri KITCHEN CLERK-TESTS SUPERINTENDENT Work Phone: [facility] Comment on above: Cutaneous abscess of left axilla (Primary Dx) Start: 04-17-2023 End: 04-17-2023 Office outpatient visit 25 minutes Amanda Osborne MD Work Phone: [facility] Comment on above: Left leg swelling (P rimary Dx); Esophagitis, unspecified without bleeding; Herpes; Migraine without status migrainosus, not intractable, unspecified migraine type Start: 04-17-2023 End: 04-17-2023 amb[facility] Start: 02-24-2023 End: 02-24-2023 Office outpatient visit 15 minutes Zenaida Silva MD Work Phone: [facility] Comment on above: Vaginal Pap smear; Vaginal Pap smear with LGSIL Start: 01-23-2023 Non-patient / Non-visit Dr. Jolly Osborne Work Phone: [facility] Start: 01-22-2023 Non-patient / Non-visit Dr. Jolly Osborne Work Phone: [facility] Start: 01-21-2023 End: 01-23-2023 Evaluation and management of inpatient Dr. Amanda [facility] Work [facility]: Start: 01-21-2023 End: 01-23-[address] Amanda Osborne Work Phone: [facility] Work Phone: Start: 01-13-2023 End: 01-13-[address] Amanda Osborne Work Phone: [facility] Work Phone: Start: 12-23-2022 End: 12-23-[address] Amanda Osborne Work Phone: [facility] Work Phone: Start: 12-10-2022 End: 12-10-[address] Amanda Osborne Work Phone: [facility] Work Phone: Start: 11-24-2022 End: 11-24-[address] Amanda Osborne Work Phone: [facility] Work Phone: Start: 11-13-2022 End: 11-13-[address] Amanda Osborne Work Phone: [facility] Work Phone: Start: 11-04-2022 ambulatory MD ZENAIDA SALINAS RD [facility] Facility:[id number] Start: 10-30-2022 End: 10-30-[address] Amanda Osborne Work Phone: [facility] Work Phone: Start: 10-23-2022 End: 10-23-[address] Amanda Osborne Work Phone: [facility] Work Phone: Start: 10-23-2022 End: 10-23-[address] Amanda Osborne Work Phone: [facility] Work Phone: Start: 10-16-2022 End: 10-16-[address] Amanda Osborne Work Phone: [facility] Work Phone: Start: 10-09-2022 End: 10-09-[address] Amanda Osborne Work Phone: [facility] Work Phone: Start: 10-05-2022 Non-patient / Non-visit Dr. Jolly Osborne Work Phone: [facility] Start: 10-04-2022 Non-patient / Non-visit Dr. Jolly Osborne Work Phone: [facility] Start: 10-03-2022 End: 10-05-2022 Evaluation and management of inpatient Dr. Amanda Osborne Work Phone: [facility] Work Phone: Start: 10-03-2022 End: 10-05-[address] Amanda Osborne Work Phone: [facility] Work Phone: Start: 09-23-2022 End: 09-23-[address] Amanda Osborne Work Phone: [facility] Work Phone: Start: 09-23-2022 End: 09-23-[address] Amanda Osborne Work Phone: [facility] Work Phone: Start: 07-29-2022 End: 07-29-[address] Amanda Osborne Work Phone: [facility] Work Phone: Start: 07-24-2022 End: 07-24-[address] Amanda Osborne Work Phone: [facility] Work Phone: Start: 07-01-2022 End: 07-01-[address] Amanda Osborne Work Phone: [facility] Work Phone: Start: 06-16-2022 End: 06-16-[address] Amanda Osborne Work Phone: [facility] Work Phone: Start: 06-10-2022 End: 06-10-[address] Zenaida Barrett Work Phone: [facility] Start: 06-02-2022 Non-patient / Non-visit Dr. Stewart Barrett Work Phone: [facility] Start: 06-01-2022 Non-patient / Non-visit Dr. Stewart Barrett Work Phone: [facility] Start: 05-31-2022 Non-patient / Non-visit Dr. Stewart Barrett Work Phone: [facility] Start: 05-30-2022 End: 06-02-2022 Evaluation and management of inpatient Dr. Zenaida Barrett Work Phone: [facility] 3 Start: 05-30-2022 End: 06-02-[address] Zenaida Barrett Work Phone: [facility] Work Phone: Start: 05-30-2022 Non-patient / Non-[facility]. [facility] Start: 05-27-2022 End: 06-13-[address] Zenaida Barrett Work Phone: [facility] Work Phone: Start: 05-27-2022 End: 06-13-[address] Zeanida Barrett [facility] Start: 05-27-[address] Zenaida Barrett Work Phone: [facility] Start: 05-26-2022 End: 05-26-[address] Zenaida Brarett Work Phone: [facility] Start: 05-26-2022 Non-patient / Non-visit Dr. Stewart Barrett Work Phone: [facility] Start: 05-22-2022 End: 05-22-[address] Zenaida Barrett Work Phone: [facility] Start: 05-22-2022 Non-patient / Non-visit Dr. Stewart Barrett Work Phone: [facility] Start: 05-21-2022 Non-patient / Non-visit Dr. Stewart Barrett Work Phone: [facility] Start: 05-19-2022 Non-patient / Non-visit Dr. Stewart Barrett Work Phone: [facility] Start: 05-16-2022 Chart Update Amanda Rossy cardona Work Phone: [place] [address] [employer] Work Phone: Start: 05-14-2022 End: 05-14-[address] Zenaida Barrett Work Phone: [facility] Start: 05-13-2022 End: 05-13-[address] Zenaida Barrett Work Phone: [facility] Work Phone: Start: 05-13-2022 End: 05-13-[address] [facility]enaida Barrett [facility] Start: 05-12-2022 Non-patient / Non-visit Dr. Stewart Barrett Work Phone: [facility] Start: 05-07-2022 Encounter for gynecological examination (general) (routine) without abnormal findings MD ZENAIDA SILVA [facility] Start: 05-07-2022 Encounter for gynecological examination (general) (routine) without abnormal findings MD ZENAIDA SILVA Facility:[facility] Start: 05-07-2022 Periodic preventive med est patient 40-64yrs Amanda Osborne Work Phone: [place] [address] [employer] Work Phone: Start: 05-07-2022 ambulatory MD ZENAIDA SILVA Facility:[facility] Start: 05-05-2022 Non-patient / Non-visit Dr. Stewart Barrett Work Phone: [facility] Start: 04-29-2022 End: 04-29-2022 Non-patient / Non-visit Dr. Zenaida Barrett Work Phone: [facility] Start: 04-29-[address] Zenaida Barrett Work Phone: [facility] Start: 04-28-2022 Non-patient / Non-visit Dr. Stewart Barrett Work Phone: [facility] Start: 04-25-2022 End: 04-25-[address] Zenaida Barrett Work Phone: [facility] Start: 04-23-2022 End: 04-23-[address] Zenaida Barrett Work Phone: [facility] Work Phone: Start: 04-23-2022 End: 04-23-[address] Zenaida Barrett Work Phone: [facility] Start: 04-18-2022 End: 04-18-[address] Zenaida Barrett Work Phone: [facility] Start: 04-15-2022 End: 04-15-[address] Zenaida Barrett Work Phone: [facility] Start: 04-14-2022 Non-patient / Non-visit Dr. Stewart Barrett Work Phone: [facility] Start: 04-13-2022 Non-patient / Non-visit Dr. Stewart Barrett Work Phone: [facility] Start: 04-12-2022 Non-patient / Non-visit Dr. Stewart Barrett Work Phone: [facility] Start: 04-11-2022 End: 04-14-2022 Evaluation and management of inpatient Dr. Zenaida Barrett Work Phone: [facility] 3 Start: 04-11-2022 End: 04-14-[address] Zenaida Barrett Work Phone: [facility] Work Phone: Start: 04-10-2022 Non-patient / Non-visit Dr. Stewart Barrett Work Phone: [facility] Start: 04-01-2022 End: 04-01-[address] Zenaida Barrett Work Phone: [facility] Start: 03-11-2022 ambulatory OSMIN PORTILLO [facility] Start: 03-10-2022 End: 03-10-2022 Emergency department patient visit Sean Malagon [facility] Emergency 15 Start: 03-06-2022 AUDIT Amanda [employer] [facility]: Start: 03-05-2022 Office outpatient vi sit 15 minutes Amanda Osborne [facility]: Start: 03-05-2022 ambulatory MD AMANDA OSBORNE Facility:[id number] Start: 03-02-2022 End: 03-02-2022 Emergency department patient visit Fanny Mckeon [facility] Emergency 14 Start: 01-09-2022 End: 01-09-[address] Zenaida Barrett Work Phone: [facility] Start: 11-14-2021 ambulatory MD AMANDA OSBORNE Facility:[id number] Start: 11-14-2021 FUV, Provider: Irene Finley, Status: Pen, Time: 1:00 PM Amanda Osborne Work Phone: [facility] [employer] Work Phone: Start: 11-12-2021 Chart Update Amanda cardona Work Phone: [facility] [employer] Work Phone: Start: 11-11-2021 Chart Update Amanda cardona Work Phone: [employer] [address] [employer] Work Phone: Start: 07-01-2021 Office consultation new/estab patient 60 min Amanda Osborne Work Phone: [facility] Work Phone: Start: 07-01-2021 Patient encounter procedure Amanda Osborne Work Phone: [facility] Work Phone: Start: 06-12-2021 Chart Update Amanda cardona Work Phone: [facility] [employer] Work Phone: Start: 06-12-2021 ambulatory Amanda Osborne Facility:[id number] Start: 04-17-2021 Patient encounter procedure Amanda Osborne Work Phone: [place] [address] [employer] Work Phone: Start: 04-05-2021 Chart Update Amanda cardona Work Phone: [facility] [employer] Work Phone: Start: 03-16-[address] [facility] Start: 03-16-2021 End: 03-16-2021 Office outpatient new 30 minutes Monica ROGERS Work Phone: [facility] Comment on above: Congestion of nasal sinus (Primary Dx); Acute maxillary sinusitis, recurrence not specified; Cough Start: 01-08-2021 Chart Update Amanda cardona Work Phone: [facility] [employer] Work Phone: Start: 01-04-2021 Patient encounter procedure Amanda A Benjaminmegan Work Phone: [place] [address] [place] Work Phone: Start: 11-15-2020 AUDIT Amanda cardona Work Phone: [facility] Work Phone: Start: 11-15-2020 Chart Update Amanda cardona Work Phone: [facility] Work Phone: Start: 11-14-2020 Office outpatient vi sit 15 minutes Amanda Osborne Work Phone: [facility] Work Phone: Start: 11-14-2020 Patient encounter procedure Amanda Osborne Work Phone: [facility] Work Phone: Start: 10-30-2020 Office outpatient vi sit 15 minutes Amanda Osborne Work Phone: [facility] Work Phone: Start: 10-24-2020 AUDIT Amanda cardona Work Phone: [facility] Work Phone: Start: 05-15-[address] [facility] Ambulatory Cancer cervix - screening done Amanda Osborne Work Phone: [facility] Work Phone: Comment on above: 02/06/2020:Negative1 ; WNL; Encounter for gynecological examination (general) (routine) without abnormal findings Amanda Osborne Work Phone: [address] Work Phone: Comment on above: 02/06/2020:Negative1 ; WNL; 04/02/2021: LGSIL:Rqoznsre96/31/2018; WNL; 10/29/2021: LGSIL01/ : LGSIL02/06/2020:Yuvpoqjs04/31/2018; WNL; 05/07/2022; COTEST NE G010/29/2021: LGSIL01: LGSIL02/06/2020:Tbojqcyz24/31/2018; WNL; Patient encounter status Jorge Alberto Blair [place] Work Phone: [facility] Work Phone: Procedures Date Procedure Procedure Detail Performing Clinician Start: 04-01-2024 Plain X-ray abdomen Dr. Amanda Osborne MD Work Phone: Start: 04-01-2024 Plain chest X-ray Dr. Sasha Osborne MD Work Phone: Start: 04-01-[address] Amanda Osborne MD Work Phone: Start: 04-01-2024 Measurement of renal function Dr. Amanda Osborne MD Work Phone: Comment on above: GFR Calc Start: 03-31-2024 Breast reconstructio n with deep inferior epigastric brusher operator skin flap Dr. Amanda Osborne MD Work Phone: Start: 01-21-2023 Investigation of transfusion reaction Dr. Amanda Osborne Work Phone: Start: 01-21-2023 Per[address] capsu[address]omy of breast Dr. Amanda Osborne Work Phone: Start: 10-03-2022 Reconstruction of br east with marketing underwriter or prosthesis Dr. Amanda Osborne Work Phone: Start: 05-30-2022 Perip[address] capsulectomy of breast Dr. Zenaida Barrett Work Phone: Start: 04-29-2022 Plain chest X-ray Dr. Carmela Barrett Work Phone: Start: 04-11-2022 Insertion of prosthe sis for breast Dr. Zenaida Barrett Work Phone: Start: 03-10-2022 End: 03-10-2022 EKG impression Sean Malagon Start: 06-12-2021 Mammography Zenaida kim MD Work Phone: Start: 03-16-2021 SARS-COV-2 RAPID Monica Daniel ROGERS Work Phone: Anaerobic microbial culture Dr. Zenaida Barrett Work Phone: Anaerobic microbial culture Dr. Zenaida Barrett Work Phone: Bilateral mastectomy Jorge Alberto Blair [place] Work Phone: Comment on above: 04/11/2022: with rec onstruction; Fungus stain method Dr. Isaac Barrett Work Phone: H/O: bilateral oophorectomy History of bilateral oophorectomy Dr. Zenaida Barrett Work Phone: Comment on above: Earlier in 2021. History of bilateral mastectomy Status post bilateral mastectomy Dr. Zenaida Barrett Work Phone: Comment on above: 1. Prophylactic mast ectomy right breast.2. Immediate right breast reconstruction with placement prepectoral cohesive gel implant (700 ml) and placement FlexHD acellular dermal matrix graft (23 x 26 cm) and mastopexy.3. Right nipple reconstruction with placement of free nipple graft.4. Prophylactic mastectomy left breast.5. Immediate left breast reconstruction with placement prepectoral cohesive gel implant (700 ml) and placement FlexHD acellular dermal matrix graft (23 x 26 cm) and mastopexy.6. Left nipple reconstruction with placement of free nipple graft - 04/11/22 Investigation of transfusion reaction Dr. Zenaida Barrett Work Phone: Investigation of transfusion reaction Dr. Zenaida Barrett Work Phone: Microbial culture, routine Dr. Zeanida Barrett Work Phone: Microbial culture, routine Dr. Zenaida Barrett Work Phone: Tooth extraction Amanda Rossy [place] Work Phone: Total abdominal hysterectomy Amandaviola Osborne Work Phone: Comment on above: 12/30/2018; Plan of Treatment Date Care Activity Detail Author Start: 03-24-2025 End: 03-24-2025 Patient encounter procedure 03/24/2025 8:30 AM EST Office Visit [facility] [address] [place] [address] Zenaida Silva MD [address] [facility], [address] [place], [place] [id number] [facility] Start: 03-02-2025 Yearly Adult Physical Yearly Adult Physical [facility] Start: 04-03-2024 Patient discharge [facility] Start: 04-02-2024 Oxygen therapy [facility] Start: 04-02-2024 End: 04-02-2024 [facility] Start: 04-02-2024 Care planning and problem solving actions [facility] Start: 04-02-2024 Wound care [facility] Start: 04-01-2024 [facility] Start: 04-01-2024 Removal of urinary catheter [facility] Start: 04-01-2024 Wound care [facility] Start: 04-01-2024 Referral to service [facility] Start: 04-01-2024 Referral to occupational therapist [facility] Start: 04-01-2024 End: 04-01-2024 [facility] Start: 03-31-2024 Continuous pulse oximetry [facility] Start: 03-31-2024 Insertion of catheter into peripheral vein [facility] Start: 03-31-2024 Measuring intake and output [facility] Start: 03-31-2024 Providing care according to standard [facility] Start: 03-31-2024 Vital signs measurements [facility] Start: 03-31-2024 [facility] Start: 03-31-2024 Application of intermittent pneumatic compression device [facility] Start: 03-31-2024 Following clinical pathway protocol [facility] Start: 03-31-2024 Admission procedure [facility] Start: 03-31-2024 Maintenance of drainage tube [facility] Start: 03-31-2024 Vascular disease risk assessment [facility] Start: 03-01-2024 End: 03-01-2025 Cytology Cervical or vaginal smear or scraping study [facility] Service Area Work Phone: Comment on above: Expected: 03/01/2024 (Approximate), Expi res: 03/01/2025 Start: 02-08-2024 End: 02-08-2024 Patient encounter procedure 02/08/2024 8:30 AM EST Office Visit [facility] [address] [place] [id number] Zenaida Silva MD [address] [facility], [address] [place] [address] [facility] Start: 01-23-2024 Diabetes mellitus screening Diabetes Screening [facility] Start: 12-29-2023 Pneumococcal vaccination Pneumococcal Vaccine (1 of 1 - PCV) [facility] Start: 12-29-2023 Zoster Vaccines (1 of 2) Zoster Vaccines (1 of 2) [facility] Start: 11-15-2023 COVID-19 Vaccine ( - season) COVID-19 Vaccine ( season) [facility] Start: 11-15-2023 Influenza vaccination [facility] Start: 09-02-2023 End: 09-02-2023 Patient encounter procedure 09/02/2023 8:30 AM EDT Office Visit [facility] [address] [place] [address] Zenaida Silva MD [address] [facility], [address] [place], [place] [phone] [facility] Start: 04-21-2023 End: 04-21-2023 Patient encounter procedure 04/21/2023 10:00 AM EST Appointment [facility] [address] [place] [address] [facility] Start: 04-17-2023 End: 04-17-2025 Vascular US Lower Extremity Venous Duplex Left Vascular US Lower Extremity Venous Duplex Left Vascular Ultrasound Routine Left leg swelling Expected: 04/17/2023 (Approximate), Expires: 04/17/[address] [facility] Service Area Work Phone: Comment on above: Expected: 04/17/2023 (Approximate), Expi res: 04/17/2025 Start: 03-04-2023 EPV, Provider: Amanda Osborne, Status: Pen, Time: 11:00 AM EPV, Provider: Amanda Osborne, Status: Pen, Time: 11:00 AM [facility] Work Phone: Start: 03-04-2023 End: 03-04-2023 Patient encounter procedure [facility] Medicine [place] Start: 02-24-2023 End: 02-25-2024 Cytology Cervical or vaginal smear or scraping study THINPREP PAP TEST Pathology and Cytology Routine Vaginal Pap smear Vaginal Pap smear with LGSIL Expected: 02/24/2023 (Approximate), Expires: 02/25/2024 [facility] Work Phone: Comment on above: Expected: 02/24/2023 (Approximate), Expi res: 02/25/2024 Start: 01-23-2023 Patient discharge [facility] Start: 01-22-2023 Introduction of urinary catheter [facility] Start: 01-22-2023 Removal of urinary catheter [facility] Start: 01-22-2023 [facility] Start: 01-21-2023 [facility] Start: 01-21-2023 Following clinical pathway protocol [facility] Start: 01-21-2023 Application of intermittent pneumatic compression device [facility] Start: 01-21-2023 Elevation of head of bed [facility] Start: 01-21-2023 Introduction of urinary catheter [facility] Start: 01-21-2023 Ambulation therapy management [facility] Start: 01-21-2023 Application of intermittent pneumatic compression device [facility] Start: 01-21-2023 Incentive spirometry [facility] Start: 01-21-2023 Measuring intake and output [facility] Start: 01-21-2023 Notification of physician [facility] Start: 01-21-2023 Oxygen therapy [facility] Start: 01-21-2023 Patient education [facility] Start: 01-21-2023 Taking patient vital signs [facility] Start: 01-21-2023 Wound care [facility] Start: 01-21-2023 [facility] Start: 01-21-2023 Admission procedure [facility] Start: 01-21-2023 Assessment of risk of venous thromboembolism [facility] Start: 01-21-2023 Anaerobic microbial culture Anaerobic Culture [facility] Start: 01-21-2023 Microbial culture, routine Wound Culture [facility] Start: 11-14-2022 COVID-19 Vaccine () COVID-19 Vaccine () [facility] Start: 11-14-2022 Influenza vaccination Influenza Vaccine (#1) [facility] Start: 11-04-2022 PAPREPEAT, Provider: Zenaida Silva, Status: Pen, Time: 8:30 AM PAPREPEAT, Provider: Zenaida Silva, Status: Pen, Time: 8:30 AM [employer] Work Phone: Start: 10-05-2022 Patient discharge [facility] Start: 10-04-2022 Application of intermittent pneumatic compression device [facility] Start: 10-04-2022 Introduction of urinary catheter [facility] Start: 10-03-2022 Admission procedure [facility] Start: 10-03-2022 Following clinical pathway protocol [facility] Start: 10-03-2022 Anesthesia reconstruction breast ANESTH SURGERY OF BREAST [facility] Start: 10-03-2022 Brst rcnstj immt/dlyd w/tiss marketing underwriter sbsq xpnsj TISS XPNDR PLMT BRST RCNSTJ [facility] Start: 10-03-2022 Implnt bio implnt for soft tissue reinforcement ACELLULAR DERM MATRIX IMPLT [facility] Start: 10-03-2022 End: 10-03-2022 [facility] Start: 10-03-2022 Introduction of urinary catheter [facility] Start: 10-03-2022 Elevation of head of bed [facility] Start: 10-03-2022 Wound care [facility] Start: 10-03-2022 Ambulation therapy management [facility] Start: 10-03-2022 Application of intermittent pneumatic compression device [facility] Start: 10-03-2022 Continuous pulse oximetry [facility] Start: 10-03-2022 Measuring intake and output [facility] Start: 10-03-2022 Notification of physician [facility] Start: 10-03-2022 Oxygen therapy [facility] Start: 10-03-2022 Patient education [facility] Start: 10-03-2022 Taking patient vital signs [facility] Start: 10-03-2022 Assessment of risk of venous thromboembolism [facility] Start: 06-12-2022 Screening for malignant neoplasm of breast Mammogram [facility] Start: 06-02-2022 Patient discharge [facility] Start: 05-31-2022 Introduction of urinary catheter [facility] Start: 05-30-2022 Application of intermittent pneumatic compression device [facility] Start: 05-30-2022 End: 05-30-2022 Following clinical pathway protocol [facility] Start: 05-30-2022 Introduction of urinary catheter [facility] Start: 05-30-2022 End: 05-30-2022 [facility] Start: 05-30-2022 Elevation of head of bed [facility] Start: 05-30-2022 Ambulation therapy management [facility] Start: 05-30-2022 Application of intermittent pneumatic compression device [facility] Start: 05-30-2022 Continuous pulse oximetry [facility] Start: 05-30-2022 Measuring intake and output [facility] Start: 05-30-2022 Notification of physician [facility] Start: 05-30-2022 Oxygen therapy [facility] Start: 05-30-2022 Patient education [facility] Start: 05-30-2022 Taking patient vital signs [facility] Start: 05-30-2022 Wound care [facility] Start: 05-30-2022 Admission procedure [facility] Start: 05-30-2022 Assessment of risk of venous thromboembolism [facility] Start: 05-30-2022 Anesthesia reconstruction breast ANESTH SURGERY OF BREAST [facility] Start: 05-30-2022 Periprosthetic capsulectomy breast TARAH-IMPLT CAPSLC BRST COMPL [facility] Start: 05-30-2022 Revision reconstructed breast REVJ RECONSTRUCTED BREAST [facility] Start: 05-30-2022 Secondary closure surg wound/dehsn extsv/complic LATE CLOSURE OF WOUND [facility] Start: 05-30-2022 [facility] Start: 05-12-2022 [facility] Start: 05-07-2022 PAPREPEAT, Provider: Zenaida Silva, Status: Pen, Time: 8:30 AM PAPREPEAT, Provider: Zenaida Silva, Status: Pen, Time: 8:30 AM [employer] Work Phone: Start: 05-07-2022 Patient encounter procedure [facility] Start: 04-14-2022 Patient discharge [facility] Start: 04-12-2022 Introduction of urinary catheter [facility] Start: 04-11-2022 Following clinical pathway protocol [facility] Start: 04-11-2022 Application of intermittent pneumatic compression device [facility] Start: 04-11-2022 Introduction of urinary catheter [facility] Start: 04-11-2022 End: 04-11-2022 [facility] Start: 04-11-2022 Elevation of head of bed [facility] Start: 04-11-2022 Wound care [facility] Start: 04-11-2022 Ambulation therapy management [facility] Start: 04-11-2022 Application of intermittent pneumatic compression device [facility] Start: 04-11-2022 Continuous pulse oximetry [facility] Start: 04-11-2022 Incentive spirometry [facility] Start: 04-11-2022 Measuring intake and output [facility] Start: 04-11-2022 Notification of physician [facility] Start: 04-11-2022 Oxygen therapy [facility] Start: 04-11-2022 Patient education [facility] Start: 04-11-2022 Taking patient vital signs [facility] Start: 04-11-2022 Admission procedure [facility] Start: 04-11-2022 Assessment of risk of venous thromboembolism [facility] Start: 04-11-2022 Verification routine [facility] Start: 04-11-2022 Anes integ extremities ant trunk & perineum nos ANESTH SKIN EXT/PER/ATRUNK [facility] Start: 04-11-2022 Immt insj brst prosth flwg mastopexy mast/rcnstj INSJ BREAST IMPLT SM D MAST [facility] Start: 04-11-2022 Implnt bio implnt for soft tissue reinforcement ACELLULAR DERM MATRIX IMPLT [facility] Start: 04-11-2022 Mastectomy simple complete MAST SIMPLE COMPLETE [facility] Start: 04-11-2022 Mastopexy SUSPENSION OF BREAST [facility] Start: 04-07-2022 Patient encounter procedure ANNUAL, Provider: Zenaida Silva, Status: Pen, Time: 8:30 AM [employer] [facility] [employer] Work Phone: Start: 03-05-[address] [facility] Start: 11-14-2021 FUV, Provider: Irene Finley, Status: Pen, Time: 1:00 PM FUV, Provider: Irene Finley, Status: Pen, Time: 1:00 [facility] Work Phone: Start: 10-16-2021 PAPREPEAT, Provider: Zenaida Silva, Status: Pen, Time: 3:30 PM PAPREPEAT, Provider: Zenaida Silva, Status: Pen, Time: 3:30 PM [facility] [employer] Work Phone: Start: 07-12-2021 COVID-19 Vaccine (2 - Booster for Lalo series) COVID-19 Vaccine (2 - Booster for Lalo series) [facility] Start: 02-06-2021 Patient encounter procedure ANNUAL, Provider: Zenaida Silva, Status: Pen, Time: 9:00 AM [facility] Work Phone: Start: 01-14-2021 FUV, Provider: Mayra Kennedy, Status: Pen, Time: 8:30 AM FUV, Provider: Mayra Kennedy, Status: Pen, Time: 8:[address] Work Phone: Start: 11-14-2020 Influenza vaccination INFLUENZA VACCINE (#1) [facility] Start: 10-30-2020 EPV, Provider: Amanda Osborne, Status: Pen, Time: 4:40 PM EPV, Provider: Amanda Osborne, Status: Pen, Time: 4:40 PM [facility] Work Phone: Start: 2018 Colonoscopy COLORECTAL CANCER SCREENING DISCUSSION [facility] Start: 2013 Fasting lipid profile LIPID SCREENING [facility] Start: 2013 Screening mammography MAMMOGRAM SCREENING DISCUSSION [facility] Start: 12-29-1995 DTaP/Tdap/Td Vaccines (1 - Tdap) DTaP/Tdap/Td Vaccines (1 - Tdap) [facility] Start: 1994 Screening for malignant neoplasm of cervix CERVICAL CANCER SCREENING DISCUSSION [facility] Start: 1992 Hepatitis B Vaccines (1 of 3 - 19+ 3-dose series) Hepatitis B Vaccines (1 of 3 - 19+ 3-dose series) [facility] Start: 1992 Third diphtheria, tetanus and acellular pertussis (DTaP) vaccination TDAP (ADULT) [facility] Start: 12-29-1991 Hepatitis C screening Hepatitis C Screening [facility] Start: 12-29-1991 Tetanus vaccination TETANUS [facility] Start: 1988 HIV screening HIV SCREENING DISCUSSION [facility] Start: 1978 COVID-19 VACCINE (1) COVID-19 VACCINE (1) [facility] Start: 1974 MMR Vaccines (1 of 1 - Standard series) MMR Vaccines (1 of 1 - Standard series) [facility] Start: 1973 Hepatitis B Vaccines (1 of 3 - 3-dose series) Hepatitis B Vaccines (1 of 3 - 3-dose series) [facility] Start: 1973 Hepatitis C antibody, confirmatory test HEPATITIS C VIRUS SCREENING [facility] Start: 1973 HIV screening HIV Screening [facility] Start: 1973 Lipid panel Lipid Panel [facility] Start: 1973 Screening for malignant neoplasm of colon [facility] Start: 1973 Yearly Adult Physical Yearly Adult Physical [facility] Anaerobic Culture Anaerobic Culture [facility] Bacteria identified in Unspecified specimen by Anaerobe culture [facility] Basic metabolic 2008 panel with ionized calcium - Serum or Plasma [facility] CBC W Auto Different ial panel - Blood [facility] Electrocardiographic procedure [facility] Fungal Culture Fungal Culture [facility] H/O: surgery History of bladd er surgery [facility] Hemoglobin A1c/Hemoglobin.total in Blood [facility] History of tonsillectomy History of tonsillectomy and adenoidectomy [facility] Microbial culture, routine Wound Culture [facility] Patient referral [facility] Work Phone: [facility] Immunizations Immunization Date Immunization Notes Care Provider Fa cili 05-31-2022 influenza, injectabl e, quadrivalent, preservative free Dr. Amanda Osborne Work Phone: [facility] 05-31-2022 influenza, seasonal, injectable Dr. Zenaida Barrett Work Phone: [facility] 05-31-2022 influenza virus vaccine, unspecified formulation Zenaida Silva MD Work Phone: [facility] Work Phone: Payers Date Payer Category Payer Self-pay [id number] 2022 [employer]ot [facility] [id number] 2021 Unknown 2021 Unknown ANTHEM ANTHEM TR ADITIONAL [id number] 2021-Present [address] [place] [address] [id number]. [id number] 2021 Unknown [id number] 2021 Unknown [id number] 2017 Unknown [id number] 1973 Unknown [id number] 2.16840.1.017629.3.579.2. 983 1973 Unknown [id number] 2.16840.1.232918.3.579.2. 983 1973 Unknown [id number] 2.16840.1.281980.3.579.2. 1069 1973 Unknown [id number] 2.16840.1.572909.3.579.2. 1069 1973 Unknown [id number] 2.16840.1.895686.3.579.2. 1069 1973 Unknown [id number] 2.16840.1.185405.3.579.2. 356 1973 Unknown [id number] 2.16840.1.826403.3.579.2. 356 1973 Unknown [id number] 2.16.840.1.142351.3.579.2. 356 1973 Unknown [id number] 2.16840.1.782808.3.579.2. 356 1973 Unknown [id number] 2.16.840.1.861616.3.579.2. 356 1973 Unknown [id number] 2.840.1.300370.3.579.2. 1243 1973 Unknown [id number] .840.1.940311.3.579.2. 1244 1973 Unknown [id number] 2.840.1.032813.3.579.2. 1244 1973 Unknown [id number] .840.1.425268.3.579.2. 1244 1973 Unknown [id number] 2.840.1.890663.3.579.2. 1244 1973 Unknown [id number] 840.1.820967.3.579.2. 1245 Unknown [id number] 840.1.749773.3.579.2. 462 Unknown [id number] 840.1.038364.3.579.2. 462 Unknown [id number] 840.1.093136.3.579.2. 462 Unknown [id number] 2840.1.927119.3.579.2. 462 Unknown [id number] 2.840.1.660212.3.579.2. 462 Unknown [id number] 840.1.282436.3.579.2. 462 Unknown [id number] 840.1.968456.3.579.2. 462 Unknown [id number] 840.1.616467.3.579.2. 462 Unknown [id number] .840.1.791598.3.579.2. 462 Unknown [id number] 2.840.1.663778.3.579.2. 462 Unknown [id number] 2.840.1.973153.3.579.2. 462 Unknown [id number] 840.1.787904.3.579.2. 462 Unknown [id number] 2.16.840.1.553236.3.579.2. 462 Unknown [id number] 2.16.840.1.903827.3.579.2. 462 Unknown [id number] 2.16840.1.970045.3.579.2. 462 Unknown [id number] 2.16840.1.656700.3.579.2. 462 Unknown [id number] 2..840.1.609637.3.579.2. 462 Unknown [id number] 2.840.1.412914.3.579.2. 462 Unknown [id number] 2.840.1.695377.3.579.2. 462 Unknown [id number] 2.840.1.820488.3.579.2. 462 Unknown [id number] 2.840.1.437872.3.579.2. 462 Unknown [id number] 2.840.1.834834.3.579.2. 462 Unknown [id number] 2.840.1.232291.3.579.2. 462 Unknown [id number] 2.840.1.575162.3.579.2. 462 Unknown [id number] 2.840.1.334766.3.579.2. 462 Unknown [id number] 2.840.1.395484.3.579.2. 462 Unknown [id number] 2.840.1.131882.3.579.2. 462 Unknown [id number] 2.840.1.220955.3.579.2. 462 Unknown [id number] 2.840.1.367693.3.579.2. 462 Unknown [id number] 2.840.1.975499.3.579.2. 462 Unknown [id number] 2.840.1.761065.3.579.2. 462 Social History Date Type Detail Facility Start: 02-24-2023 End: 03-01-2024 Sexually active Sexually active [facility] Work Phone: Comment on above: No Living Will; Occationally; Start: 03-16-2021 End: 05-16-2024 Tobacco smoking status NHIS Ex-smoker [facility] Start: 03-16-2021 End: 02-24-2023 Tobacco use and exposure Smokeless tobacco non-user [facility] Start: 03-16-2021 End: 03-21-2024 Alcohol intake Current drinker of alcohol (finding) [facility] Start: 03-16-2021 History SDOH Alcohol Comment SOCIAL [facility] Start: 03-16-2021 Tobacco Comment QUIT 7 YEARS AGO [facility] Start: 1975 Sex Assigned At Not on file A [facility] Start: 04-01-2022 End: 01-13-2023 Tobacco smoking consumption unknown [facility] Start: 1975 Sex Assigned At Female [facility] History of tobacco use Current smoker [facility] Work Phone: History of tobacco use Cigarette Smoker [facility] Work Phone: Start: 02-24-2023 End: 03-01-2024 Tobacco use panel [facility] Work Phone: Start: 02-24-2023 Alcohol Comment Occasionally [facility] Work Phone: Start: 02-14-2023 End: 03-21-2024 Exposure to SARS-CoV-2 (event) Not sure [facility] Start: 03-26-2023 Gender identity Identifies as female gender (finding) [facility] Work Phone: Start: 03-26-2023 Sexual orientation Heterosexual (fin ding) [facility] Work Phone: Start: 06-14-2024 Sex Female (finding) [facility] NEGATED: Highlighted row [facility] NEGATED: Highlighted row Not [facility] Medical Equipment Procedure Code Equipment Code Equipment Origin al Text Equipment Identifier Dates Reconstruction, breast, with tissue marketing underwriter FLEXHD PLIABLE [id number]-XL-[id number] 26CM FDA Start: 10-03-2022 Reconstruction, breast, with tissue marketing underwriter FLEXHD PLIABLE [id number]-XL-[id number] 26CM FDA Start: 10-03-2022 Reconstruction, breast, with tissue marketing underwriter Plant polysaccharide haemostatic agent, bioabsorbable [id number] FDA Start: 10-03-2022 Reconstruction, breast, with tissue marketing underwriter Skin-port tissue marketing underwriter [id number] FDA Start: 10-03-2022 Reconstruction, breast, with tissue marketing underwriter [employer] tissue marketing underwriter [id number] FDA Start: 10-03-2022 Reconstruction, breast, with tissue marketing underwriter FLEXHD PLIABLE [id number]-[id number] 26CM FDA Start: 10-03-2022 Reconstruction, breast, with tissue marketing underwriter FLEXHD PLIABLE [id number]-XL-[id number] 26CM FDA Start: 10-03-2022 Reconstruction, breast, with tissue marketing underwriter FLEXHD PLIABLE [id number]-XL-[id number] 26CM FDA Start: 10-03-2022 Reconstruction, breast, with tissue marketing underwriter FLEXHD PLIABLE [id number]-XL-[id number] 26CM FDA Start: 10-03-2022 Reconstruction, breast, with tissue marketing underwriter FLEXHD PLIABLE [id number]-[id number] 26CM FDA Start: 10-03-2022 Reconstruction, breast, with tissue marketing underwriter FLEXHD PLIABLE [id number]-XL-[id number] 26CM FDA Start: 10-03-2022 Reconstruction, breast, bilateral, using MAKENNA free flap 3.0MM HYDRO PLANT TECHNICIAN FDA Start: 03-31-2024 Reconstruction, breast, bilateral, using MAKENNA free flap SUPERFINE MICROCLIPS TITANIUM FDA Start: 03-31-2024 Reconstruction, breast, bilateral, using MAKENNA free flap SUPERFINE MICROCLIPS TITANIUM FDA Start: 03-31-2024 Reconstruction, breast, bilateral, using MAKENNA free flap SUTURE,LIGA CLIP MED [id number] FDA Start: 03-31-2024 Reconstruction, breast, bilateral, using MAKENNA free flap SUTURE,LIGA CLIP MED [id number] FDA Start: 03-31-2024 Reconstruction, breast, bilateral, using MAKENNA free flap SUTURE,LIGA CLIP MED [id number] FDA Start: 03-31-2024 Reconstruction, breast, bilateral, using MAKENNA free flap SUTURE,LIGA CLIP MED [id number] FDA Start: 03-31-2024 Reconstruction, breast, bilateral, using MAKENNA free flap SUTURE,LIGA CLIP MED [id number] FDA Start: 03-31-2024 Reconstruction, breast, bilateral, using MAKENNA free flap SUTURE,LIGA CLIP MED [id number] FDA Start: 03-31-2024 Reconstruction, breast, bilateral, using MAKENNA free flap SUTURE,LIGA CLIP MED [id number] FDA Start: 03-31-2024 Reconstruction, breast, bilateral, using MAKENNA free flap SUTURE,LIGA CLIP MED [id number] FDA Start: 03-31-2024 Reconstruction, breast, bilateral, using MAKENNA free flap 3.0MM HYDRO PLANT TECHNICIAN FDA Start: 03-31-2024 Reconstruction, breast, bilateral, using MAKENNA free flap SUTURE,LIGA CLIP MED [id number] FDA Start: 03-31-2024 Reconstruction, breast, bilateral, using MAKENNA free flap SUTURE,LIGA CLIP MED [id number] FDA Start: 03-31-2024 Reconstruction, breast, bilateral, using MAKENNA free flap SUTURE,LIGA CLIP MED [id number] FDA Start: 03-31-2024 Reconstruction, breast, bilateral, using MAKENNA free flap SUTURE,LIGA CLIP MED [id number] FDA Start: 03-31-2024 Reconstruction, breast, bilateral, using MAKENNA free flap SUTURE,LIGA CLIP MED [id number] FDA Start: 03-31-2024 Reconstruction, breast, bilateral, using MAKENNA free flap SUTURE,LIGA CLIP MED [id number] FDA Start: 03-31-2024 Reconstruction, breast, bilateral, using MAKENNA free flap SUTURE,LIGA CLIP MED [id number] FDA Start: 03-31-2024 Reconstruction, breast, bilateral, using MAKENNA free flap SUTURE,LIGA CLIP MED [id number] FDA Start: 03-31-2024 Reconstruction, breast, bilateral, using MAKENNA free flap SUTURE,LIGA CLIP MED [id number] FDA Start: 03-31-2024 Reconstruction, breast, bilateral, using MAKENNA free flap SUTURE,LIGA CLIP MED [id number] FDA Start: 03-31-2024 Reconstruction, breast, bilateral, using MAKENNA free flap 3.0MM HYDRO PLANT TECHNICIAN FDA Start: 03-31-2024 Reconstruction, breast, bilateral, using MAKENNA free flap SUTURE,LIGA CLIP SM LT-100 FDA Start: 03-31-2024 Reconstruction, breast, bilateral, using MAKENNA free flap SUTURE,LIGA CLIP SM LT-100 FDA Start: 03-31-2024 Reconstruction, breast, bilateral, using MAKENNA free flap SUTURE,LIGA CLIP SM LT-100 FDA Start: 03-31-2024 Reconstruction, breast, bilateral, using MAKENNA free flap SUTURE,LIGA CLIP SM LT-100 FDA Start: 03-31-2024 Reconstruction, breast, bilateral, using MAKENNA free flap SUTURE,LIGA CLIP SM LT-100 FDA Start: 03-31-2024 Reconstruction, breast, bilateral, using MAKENNA free flap SUTURE,LIGA CLIP SM LT-100 FDA Start: 03-31-2024 Reconstruction, breast, bilateral, using MAKENNA free flap SUTURE,LIGA CLIP SM LT-100 FDA Start: 03-31-2024 Reconstruction, breast, bilateral, using MAKENNA free flap SUTURE,LIGA CLIP SM LT-100 FDA Start: 03-31-2024 Reconstruction, breast, bilateral, using MAKENNA free flap SUTURE,LIGA CLIP SM LT-100 FDA Start: 03-31-2024 Reconstruction, breast, bilateral, using MAKENNA free flap SUTURE,LIGA CLIP SM LT-100 FDA Start: 03-31-2024 Reconstruction, breast, bilateral, using MAKENNA free flap MICRO CLIP TITANIUM FDA Start: 03-31-2024 Reconstruction, breast, bilateral, using MAKENNA free flap SUTURE,LIGA CLIP SM LT-100 FDA Start: 03-31-2024 Reconstruction, breast, bilateral, using MAKENNA free flap SUTURE,LIGA CLIP SM LT-100 FDA Start: 03-31-2024 Reconstruction, breast, bilateral, using MAKENNA free flap MICRO CLIP TITANIUM FDA Start: 03-31-2024 Reconstruction, breast, bilateral, using MAKENNA free flap MICRO CLIP TITANIUM FDA Start: 03-31-2024 Reconstruction, breast, bilateral, using MAKENNA free flap NERVE CONNECTOR 2MM X 10MM FDA Start: 03-31-2024 Reconstruction, breast, bilateral, using MAKENNA free flap NERVE GRAFT 1-2MM X 70MM FDA Start: 03-31-2024 Reconstruction, breast, bilateral, using MAKENNA free flap SUPERFINE MICROCLIPS TITANIUM FDA Start: 03-31-2024 Reconstruction, breast, bilateral, using MAKENNA free flap 3.0MM HYDRO PLANT TECHNICIAN FDA Start: 03-31-2024 Reconstruction, breast, bilateral, using MAKENNA free flap SUPERFINE MICROCLIPS TITANIUM FDA Start: 03-31-2024 Reconstruction, breast, bilateral, using MAKENNA free flap SUPERFINE MICROCLIPS TITANIUM FDA Start: 03-31-2024 Reconstruction, breast, bilateral, using MAKENNA free flap SUTURE,LIGA CLIP MED LT200 FDA Start: 03-31-2024 Reconstruction, breast, bilateral, using MAKENNA free flap SUTURE,LIGA CLIP MED LT200 FDA Start: 03-31-2024 Reconstruction, breast, bilateral, using MAKENNA free flap SUTURE,LIGA CLIP MED LT200 FDA Start: 03-31-2024 Reconstruction, breast, bilateral, using MAKENNA free flap SUTURE,LIGA CLIP MED LT200 FDA Start: 03-31-2024 Reconstruction, breast, bilateral, using MAKENNA free flap SUTURE,LIGA CLIP MED LT200 FDA Start: 03-31-2024 Reconstruction, breast, bilateral, using MAKENNA free flap SUTURE,LIGA CLIP MED LT200 FDA Start: 03-31-2024 Reconstruction, breast, bilateral, using MAKENNA free flap SUTURE,LIGA CLIP MED LT200 FDA Start: 03-31-2024 Reconstruction, breast, bilateral, using MAKENNA free flap SUTURE,LIGA CLIP MED LT200 FDA Start: 03-31-2024 Reconstruction, breast, bilateral, using MAKENNA free flap 3.0MM HYDRO PLANT TECHNICIAN FDA Start: 03-31-2024 Reconstruction, breast, bilateral, using MAKENNA free flap SUTURE,LIGA CLIP MED LT200 FDA Start: 03-31-2024 Reconstruction, breast, bilateral, using MAKENNA free flap SUTURE,LIGA CLIP MED LT200 FDA Start: 03-31-2024 Reconstruction, breast, bilateral, using MAKENNA free flap SUTURE,LIGA CLIP MED LT200 FDA Start: 03-31-2024 Reconstruction, breast, bilateral, using MAKENNA free flap SUTURE,LIGA CLIP MED LT200 FDA Start: 03-31-2024 Reconstruction, breast, bilateral, using MAKENNA free flap SUTURE,LIGA CLIP MED LT200 FDA Start: 03-31-2024 Reconstruction, breast, bilateral, using MAKENNA free flap SUTURE,LIGA CLIP MED LT200 FDA Start: 03-31-2024 Reconstruction, breast, bilateral, using MAKENNA free flap SUTURE,LIGA CLIP MED LT200 FDA Start: 03-31-2024 Reconstruction, breast, bilateral, using MAKENNA free flap SUTURE,LIGA CLIP MED LT200 FDA Start: 03-31-2024 Reconstruction, breast, bilateral, using MAKENNA free flap SUTURE,LIGA CLIP MED LT200 FDA Start: 03-31-2024 Reconstruction, breast, bilateral, using MAKENNA free flap SUTURE,LIGA CLIP MED LT200 FDA Start: 03-31-2024 Reconstruction, breast, bilateral, using MAKENNA free flap 3.0MM HYDRO PLANT TECHNICIAN FDA Start: 03-31-2024 Reconstruction, breast, bilateral, using MAKENNA free flap SUTURE,LIGA CLIP SM LT-100 FDA Start: 03-31-2024 Reconstruction, breast, bilateral, using MAKENNA free flap SUTURE,LIGA CLIP SM LT-100 FDA Start: 03-31-2024 Reconstruction, breast, bilateral, using MAKENNA free flap SUTURE,LIGA CLIP SM LT-100 FDA Start: 03-31-2024 Reconstruction, breast, bilateral, using MAKENNA free flap SUTURE,LIGA CLIP SM LT-100 FDA Start: 03-31-2024 Reconstruction, breast, bilateral, using MAKENNA free flap SUTURE,LIGA CLIP SM LT-100 FDA Start: 03-31-2024 Reconstruction, breast, bilateral, using MAKENNA free flap SUTURE,LIGA CLIP SM LT-100 FDA Start: 03-31-2024 Reconstruction, breast, bilateral, using MAKENNA free flap SUTURE,LIGA CLIP SM LT-100 FDA Start: 03-31-2024 Reconstruction, breast, bilateral, using MAKENNA free flap SUTURE,LIGA CLIP SM LT-100 FDA Start: 03-31-2024 Reconstruction, breast, bilateral, using MAKENNA free flap SUTURE,LIGA CLIP SM LT-100 FDA Start: 03-31-2024 Reconstruction, breast, bilateral, using MAKENNA free flap SUTURE,LIGA CLIP SM LT-100 FDA Start: 03-31-2024 Reconstruction, breast, bilateral, using MAKENNA free flap MICRO CLIP TITANIUM FDA Start: 03-31-2024 Reconstruction, breast, bilateral, using MAKENNA free flap SUTURE,LIGA CLIP SM LT-100 FDA Start: 03-31-2024 Reconstruction, breast, bilateral, using MAKENNA free flap SUTURE,LIGA CLIP SM LT-100 FDA Start: 03-31-2024 Reconstruction, breast, bilateral, using MAKENNA free flap MICRO CLIP TITANIUM FDA Start: 03-31-2024 Reconstruction, breast, bilateral, using MAKENNA free flap MICRO CLIP TITANIUM FDA Start: 03-31-2024 Reconstruction, breast, bilateral, using MAKENNA free flap NERVE CONNECTOR 2MM X 10MM FDA Start: 03-31-2024 Reconstruction, breast, bilateral, using MAKENNA free flap NERVE GRAFT 1-2MM X 70MM FDA Start: 03-31-2024 Reconstruction, breast, bilateral, using MAKENNA free flap SUPERFINE MICROCLIPS TITANIUM FDA Start: 03-31-2024 Insertion, implant, breast AXIOFILL,500MG FDA Start: 04-11-2022 Insertion, implant, breast flexHD pliable PRE-XL- 23x26 cm FDA Start: 04-11-2022 Insertion, implant, breast flexHD pliable pre-XL 23x 26 cm FDA Start: 04-11-2022 Insertion, implant, breast memorygel xtra breast implant smooth high profile xtra FDA Start: 04-11-2022 Insertion, implant, breast mentor memorygel xtra breast implant smooth high profile xtra FDA Start: 04-11-2022 Insertion, implant, breast Plant polysaccharide haemostatic agent, bioabsorbable ()[id number] FDA Start: 04-11-2022 Insertion, implant, breast Plant polysaccharide haemostatic agent, bioabsorbable ()[id number] FDA Start: 04-11-2022 Insertion, implant, breast AXIOFILL,500MG FDA Start: 04-11-2022 Insertion, implant, breast flexHD pliable PRE-XL- 23x26 cm FDA Start: 04-11-2022 Insertion, implant, breast flexHD pliable pre-XL 23x 26 cm FDA Start: 04-11-2022 Insertion, implant, breast memorygel xtra breast implant smooth high profile xtra FDA Start: 04-11-2022 Insertion, implant, breast mentor memorygel xtra breast implant smooth high profile xtra FDA Start: 04-11-2022 Insertion, implant, breast AXIOFILL,500MG FDA Start: 04-11-2022 Insertion, implant, breast flexHD pliable PRE-XL- 23x26 cm FDA Start: 04-11-2022 Insertion, implant, breast flexHD pliable pre-XL 23x 26 cm FDA Start: 04-11-2022 Insertion, implant, breast memorygel xtra breast implant smooth high profile xtra FDA Start: 04-11-2022 Insertion, implant, breast mentor memorygel xtra breast implant smooth high profile xtra FDA Start: 04-11-2022 Insertion, implant, breast AXIOFILL,500MG FDA Start: 04-11-2022 Insertion, implant, breast flexHD pliable PRE-XL- 23x26 cm FDA Start: 04-11-2022 Insertion, implant, breast flexHD pliable pre-XL 23x 26 cm FDA Start: 04-11-2022 Insertion, implant, breast memorygel xtra breast implant smooth high profile xtra FDA Start: 04-11-2022 Insertion, implant, breast mentor memorygel xtra breast implant smooth high profile xtra FDA Start: 04-11-2022 Insertion, implant, breast AXIOFILL,500MG FDA Start: 04-11-2022 Insertion, implant, breast flexHD pliable PRE-XL- 23x26 cm FDA Start: 04-11-2022 Insertion, implant, breast flexHD pliable pre-XL 23x 26 cm FDA Start: 04-11-2022 Insertion, implant, breast memorygel xtra breast implant smooth high profile xtra FDA Start: 04-11-2022 Insertion, implant, breast mentor memorygel xtra breast implant smooth high profile xtra FDA Start: 04-11-2022 Insertion, implant, breast AXIOFILL,500MG FDA Start: 04-11-2022 Insertion, implant, breast flexHD pliable PRE-XL- 23x26 cm FDA Start: 04-11-2022 Insertion, implant, breast flexHD pliable pre-XL 23x 26 cm FDA Start: 04-11-2022 Insertion, implant, breast memorygel xtra breast implant smooth high profile xtra FDA Start: 04-11-2022 Insertion, implant, breast mentor memorygel xtra breast implant smooth high profile xtra FDA Start: 04-11-2022 Insertion, implant, breast AXIOFILL,500MG FDA Start: 04-11-2022 Insertion, implant, breast flexHD pliable PRE-XL- 23x26 cm FDA Start: 04-11-2022 Insertion, implant, breast flexHD pliable pre-XL 23x 26 cm FDA Start: 04-11-2022 Insertion, implant, breast memorygel xtra breast implant smooth high profile xtra FDA Start: 04-11-2022 Insertion, implant, breast mentor memorygel xtra breast implant smooth high profile xtra FDA Start: 04-11-2022 Insertion, implant, breast AXIOFILL,500MG FDA Start: 04-11-2022 Insertion, implant, breast flexHD pliable PRE-XL- 23x26 cm FDA Start: 04-11-2022 Insertion, implant, breast flexHD pliable pre-XL 23x 26 cm FDA Start: 04-11-2022 Insertion, implant, breast memorygel xtra breast implant smooth high profile xtra FDA Start: 04-11-2022 Insertion, implant, breast mentor memorygel xtra breast implant smooth high profile xtra FDA Start: 04-11-2022 Insertion, implant, breast AXIOFILL,500MG FDA Start: 04-11-2022 Insertion, implant, breast flexHD pliable PRE-XL- 23x26 cm FDA Start: 04-11-2022 Insertion, implant, breast flexHD pliable pre-XL 23x 26 cm FDA Start: 04-11-2022 Insertion, implant, breast memorygel xtra breast implant smooth high profile xtra FDA Start: 04-11-2022 Insertion, implant, breast mentor memorygel xtra breast implant smooth high profile xtra FDA Start: 04-11-2022 Insertion, implant, breast AXIOFILL,500MG FDA Start: 04-11-2022 Insertion, implant, breast flexHD pliable PRE-XL- 23x26 cm FDA Start: 04-11-2022 Insertion, implant, breast flexHD pliable pre-XL 23x 26 cm FDA Start: 04-11-2022 Insertion, implant, breast memorygel xtra breast implant smooth high profile xtra FDA Start: 04-11-2022 Insertion, implant, breast mentor memorygel xtra breast implant smooth high profile xtra FDA Start: 04-11-2022 Capsulectomy, breast, with implant removal Plant polysaccharide haemostatic agent, bioabsorbable [id number] FDA Start: 05-30-2022 Capsulectomy, breast, with implant removal PLIABLE SHAPED PERF LARGE 13 X 22CM FDA Start: 01-21-2023 Capsulectomy, breast, with implant removal Plant polysaccharide haemostatic agent, bioabsorbable ()[id number])[facility] 0052 FDA Start: 01-21-2023 Capsulectomy, breast, with implant removal PLLABLE SHAPED PERF-LRG- [id number] FDA Start: 01-21-2023 Capsulectomy, breast, with implant removal PLLABLE SHAPED PERF-LRG- [id number] FDA Start: 01-21-2023 Capsulectomy, breast, with implant removal PLLABLE SHAPED [id number] FDA Start: 01-21-2023 Capsulectomy, breast, with implant removal Silicone gel-filled breast implant, smooth-surface [id number] FDA Start: 01-21-2023 Capsulectomy, breast, with implant removal Silicone gel-filled breast implant, smooth-surface ()[id number] FDA Start: 01-21-2023 Capsulectomy, breast, with implant removal PLIABLE SHAPED PERF LARGE 13 X 22CM FDA Start: 01-21-2023 Capsulectomy, breast, with implant removal PLIABLE SHAPED [id number] FDA Start: 01-21-2023 Capsulectomy, breast, with implant removal PLLABLE SHAPED PERF-LRG- [id number] FDA Start: 01-21-2023 Capsulectomy, breast, with implant removal PLLABLE SHAPED PERF-LRG- [id number] FDA Start: 01-21-2023 Capsulectomy, breast, with implant removal PLIABLE SHAPED PERF LARGE 13 X 22CM FDA Start: 01-21-2023 Capsulectomy, breast, with implant removal PLIABLE SHAPED [id number] FDA Start: 01-21-2023 Capsulectomy, breast, with implant removal PLLABLE SHAPED PERF-LRG- [id number] FDA Start: 01-21-2023 Capsulectomy, breast, with implant removal PLLABLE SHAPED PERF-LRG- [id number] FDA Start: 01-21-2023 Goals Date Patient Goal Desired Activity /State Functional Status Date Assessment Result Facility 04-03-2024 Functional status Bedside Commode [facility] Work Phone: 04-03-2024 Functional status Activity Abili ty With Assist of 1 [facility] Work Phone: 01-23-2023 Functional status Up ad willy [facility] Work Phone: 10-05-2022 Functional status Ambulates [facility] Work Phone: 06-02-2022 Functional status Ambulates;Up ad willy [facility] Work Phone: 06-01-2022 Functional status Assistive Devices None [facility] Work Phone: 05-30-2022 Functional status Tolerates Activity Fair [facility] Work Phone: 04-14-2022 Functional status Bedrest [facility] Work Phone: Mental Status Date Assessment Result Facility 04-03-2024 Cognitive function Voice/Name [facility] Work Phone: 01-23-2023 Cognitive function Voice/Name [facility] Work Phone: 10-05-2022 Cognitive function Voice/Name [facility] Work Phone: 06-02-2022 Cognitive function Voice/Name [facility] Work Phone: 04-14-2022 Cognitive function Voice/Name [facility] Work Phone: Clinical Notes 01-04-2017 to 06-06-2024 Note Date & Type Note Facility 06-06-2024 Progress note Note Date/Time June 06, 2024 9:26am [facility] [address] [place] [address] Progress Note - Wound Care 06/06/24 0646 MR#: [id number] Acct: [id number] Name: IRENE LOPEZ Rep #:[id number] : 1975 48 From: Marlon Allen MD PCP: Dr. 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 History of Wound: Patient underwent MAKENNA flaps for bilateral breast reconstruction on 31 Mar 2024. There is an upper pole right breast wound that contained some fat necrosis from thin mastectomy flap dissection during capsulectomy/preparation for the flaps. There is healthy granulation tissue overthe flap at the base of the wound. Also has had some small wounds on the medialaspect of her donor site, all of which are being treated with Aquacel Ag. 16 May 2024: Less drainage today. No fevers chills. Doing well with wound care. 23 May 2024: Doing well overall with dressing changes. Making progress. Subjective Subjective CURRENT ENCOUNTER, 06 June 2024: Doing well. Feels like she's making progress with right upper pole breast wound,and the abdominal incision is nearly healed. Objective Data Objective Data Vital Signs: Vital Signs Temp Pulse Resp BP O2 Del Method 96.9 F L 80 16 145/80 H Room Air 05/23/24 08:52 05/23/24 08:52 05/23/24 08:52 05/23/24 08:52 05/23/24 08:52 Oxygen Delivery Method Room Air Weight: 172 lb Body Mass Index (BMI) 28.6 Charges/Coding Procedures Integumentary 111xxx-113xx: 25660 Global Visit Physical Exam Narrative Right breast wound healing well, granulating. No drainage. 0.5 x 1.1 cm and 1 cm deep. Re-packed today. Beafy red granulation at the base over the MAKENNA flap Central abdomen Re-epithelialized. Healthy umbilicus. Debridement Note Debridement Note Post-Debridement Measurements and Additional Note: Post-Debridement Measurements/Treatment WC - Nurse 1 - General Ulcer Assessment Start: 05/16/24 10:22 Freq: Status: Active Protocol: WC.LOWEXT Activity Type Activity Date Activity User E-sign Co-sign Detail Recorded Client Recorded Date Recorded By Document 05/16/24 10:22 [facility] [id number] 05/16/24 10:35 [facility] Document 05/23/24 08:52 KW [id number] 05/23/24 08:57 KW 05/16/24 05/23/24 10:22 08:52 WC - Today's Visit Information Type of service Initial Visit Follow-up Visit (Physician/TESTS SUPERINTENDENT ) Arrival Mode Ambulatory Ambulatory Transfer Assistance None Patient Identification Verified (Name & Yes Yes ) Patient Requires Transmission-Based No Precautions Height and Weight Height 5 ft 5 in Weight 172 lb Weight in Pounds 172.0 lbs Weight Measurement Method Stated by Patient Body Mass Index (BMI) 28.6 28.6 BMI Classification Overweight Overweight Vital Signs Temperature (97.8 F-99.1 F) 97.1 F L 96.9 F L Temperature Source Temporal Temporal Pulse Rate (60-100) 78 80 Pulse Location Monitor Monitor Respiratory Rate (12-18) 18 16 Respiratory rate source Observation Observation Oxygen Delivery Method Room Air Room Air Blood Pressure (90/60-120/80) 159/75 H 145/80 H Blood Pressure Mean (mm Hg) 103 101 Source Monitor Monitor Position Sitting Sitting Blood Pressure Location Right Arm Left Arm History Since Last Visit- (Skip if this is Patient's initial visit) Have you changed medications since your No last visit? Any new allergies or adverse reactions No Had a fall/change in ADL's that may No increase risk of falls Signs or symptoms of abuse and/or No neglect since last visit Have you been in the hospital since your No last visit? Has dressing in place as prescribed Yes Has compression in place as prescribed Yes Has offloadiing in place as prescribed N/A Experienced any changes in pain level or No management Left Footwear Regular Shoe Regular Shoe Right Footwear Regular Shoe Regular Shoe Pain Scale: 0-10 Numeric Is Patient Pain Free? 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/Confucianist Needs that may affect No Treatment Plan Teaching: Wound Center *Welcome to the Wound Center -Person Taught Patient -Teaching Method Discussion -Response to teaching Verbalize Understanding WC - Nurse 1 - General Ulcer Measurement Start: 05/16/24 10:22 Freq: Status: Active Protocol: Activity Type Activity Date Activity User E-sign Co-sign Detail Recorded Client Recorded Date Recorded By Document 05/16/24 10:22 BM [id number] 05/16/24 10:35 BM Document 05/23/24 08:52 KW [id number] 05/23/24 08:57 KW 05/16/24 05/23/24 10:22 08:52 Wound Center Nurse 1 #5 Abd Cluster -Current Size (cm) - Length 0.9 0.8 -Current Size (cm) - Width 14.3 13.5 -Current Size (cm) - Depth 0.2 0.6 -Total Square Cm 12.87 10.80 -Date of Last Picture (Recall this 05/16/24 05/23/24 field) -Photo Taken Yes -Tunneling No -Undermining/Tunneling No -Circular Undermining No -Exudate Amt Medium Medium -Exudate Type Serosanguineous Serosanguineous -Wound Margin Distinct, Distinct, Outline Outline Attached Attached -Granulation Amt None Present (0 Large (67-100%) %) -Granulation Quality Red -Necrosis Amt Large (67-100%) -Necrotic Tissue Type Adherent Slough -Structure Exposed N/A -Texture (Tarah-wound Skin Appearance) Scarring Assessed -Moisture (Tarah-wound Skin Appearance) No Abnormality Assessed -Color (Tarah-wound Skin Appearance) No Abnormality Assessed -Temperature (Tarah-wound Skin No Abnormality No Abnormality Appearance) (Pt Warm) (Pt Warm) -Tenderness on Palpation (Tarah-wound No Skin Appearance) -Ulcer Cleansing Soap and Water Rinsed/ Irrigated with Saline -Foul Odor after Cleansing No No -Anesthetic Used 5% Lidocaine 4% Lidocaine Gel Solution #4 Umbilicus -Combined with other wound No -Current Size (cm) - Length 0.1 0.1 -Current Size (cm) - Width 0.6 0.1 -Current Size (cm) - Depth 0.1 0 -Total Square Cm 0.06 0.01 -Date of Last Picture (Recall this 05/16/24 05/23/24 field) -Photo Taken Yes -Tunneling No -Undermining/Tunneling No -Circular Undermining No -Exudate Amt Small None Present -Exudate Type Serosanguineous -Wound Margin Distinct, Distinct, Outline Outline Attached Attached -Granulation Amt Large (67-100%) -Granulation Quality [place] -Necrosis Amt Small (1-33%) -Necrotic Tissue Type Adherent Slough -Structure Exposed N/A -Texture (Tarah-wound Skin Appearance) Scarring Assessed -Moisture (Tarah-wound Skin Appearance) No Abnormality Assessed,Dry/ Scaly -Color (Tarah-wound Skin Appearance) No Abnormality Assessed -Temperature (Tarah-wound Skin No Abnormality No Abnormality Appearance) (Pt Warm) (Pt Warm) -Tenderness on Palpation (Tarah-wound No No Skin Appearance) -Ulcer Cleansing Soap and Water Rinsed/ Irrigated with Saline -Foul Odor after Cleansing No No -Anesthetic Used 5% Lidocaine Gel #3 R Breast -Combined with other wound No -Current Size (cm) - Length 0.5 0.6 -Current Size (cm) - Width 1.4 1.3 -Current Size (cm) - Depth 1.9 1 -Total Square Cm 0.70 0.78 -Date of Last Picture (Recall this 05/23/24 field) -Photo Taken Yes -Tunneling Yes -Tunneling Position (O'clock) 3 -Tunneling Distance (cm) 4.7 -Undermining/Tunneling No -Circular Undermining No -Exudate Amt Medium Small -Exudate Type Serosanguineous Serosanguineous -Wound Margin Distinct, Distinct, Outline Outline Attached Attached -Granulation Amt Large (67-100%) -Granulation Quality Red -Necrosis Amt None Present (0 %) -Structure Exposed N/A -Texture (Tarah-wound Skin Appearance) No Abnormality, Assessed Scarring -Moisture (Tarah-wound Skin Appearance) No Abnormality Assessed -Color (Tarah-wound Skin Appearance) No Abnormality Assessed -Temperature (Tarah-wound Skin No Abnormality No Abnormality Appearance) (Pt Warm) (Pt Warm) -Tenderness on Palpation (Tarah-wound No Skin Appearance) -Ulcer Cleansing Soap and Water Rinsed/ Irrigated with Saline -Foul Odor after Cleansing No No -Anesthetic Used 5% Lidocaine 4% Lidocaine Gel Solution WC - Nurse 2 - General Ulcer CM Notes Start: 05/16/24 10:22 Freq: Status: Active Protocol: Activity Type Activity Date Activity User E-sign Co-sign Detail Recorded Client Recorded Date Recorded By Document 05/16/24 11:02 DS [id number] 05/16/24 11:12 DS Document 05/23/24 09:02 DS [id number] 05/23/24 09:07 DS 05/16/24 05/23/24 11:02 09:02 Wound Center Nurse 2 #5 Abd Cluster -Time 11: 09:02 -Correct Patient Yes Yes -Correct Side, Site, Position Yes Yes -Correct Procedure Yes Yes -Procedure Performed Yes Yes -Type of Procedure Debridement Debridement -Clinical Debridement Subcutaneous Subcutaneous -Tissue Removed Subcutaneous Subcutaneous -Post Debridement (cm) - Length 0.9 0.5 -Post Debridement (cm) - Width 14 14.0 -Post Debridement (cm) - Depth 0.7 0.7 -Total Square (Post) (cm) 12.6 7.00 -Area of Debridement (cm) - Length 0.9 0.5 -Area of Debridement (cm) - Width 14 14.0 -Total Square (Area) (cm) 12.6 7.00 -Tunneling No No -Undermining/Tunneling No No -Circular Undermining No No -Wound/Ulcer Outcome Not Healed Not Healed -Ulcer Cleansing Rinsed/ Rinsed/ Irrigated with Irrigated with Saline Saline -Foul Odor after Cleansing No No -Bioengineered Tissue No No -Bleeding Controlled with Pressure Pressure -Treatment Response Procedure Procedure Tolerated Well Tolerated Well -Offloading No -Debridement - Subq, 1st 20sq cm Yes No #4 Umbilicus -Time 11: 09:03 -Correct Patient Yes Yes -Procedure Performed No No -Wound/Ulcer Outcome Healed- Epithelialized #3 R Breast -Time 11:00 09:03 -Correct Patient Yes Yes -Correct Side, Site, Position Yes -Correct Procedure Yes -Procedure Performed No Yes -Type of Procedure Debridement -Clinical Debridement Subcutaneous -Tissue Removed Subcutaneous -Post Debridement (cm) - Length 1.0 0.7 -Post Debridement (cm) - Width 0.5 1.5 -Post Debridement (cm) - Depth 1.0 1.0 -Total Square (Post) (cm) 0.50 1.05 -Area of Debridement (cm) - Length 1.0 0.7 -Area of Debridement (cm) - Width 0.5 1.5 -Total Square (Area) (cm) 0.50 1.05 -Tunneling No No -Undermining/Tunneling No No -Circular Undermining No No -Wound/Ulcer Outcome Not Healed Not Healed -Ulcer Cleansing Wound Cleanser -Foul Odor after Cleansing No -Bioengineered Tissue No -Bleeding Controlled with Pressure -Treatment Response Procedure Tolerated Well -Debridement - Subq, 1st 20sq cm Yes Pain Scale: 0-10 Numeric Is Patient Pain Free? Yes Yes - Nurse 3 - General Ulcer D/C NN Start: 05/16/24 10:22 Freq: Status: Active Protocol: Activity Type Activity Date Activity User E-sign Co-sign Detail Recorded Client Recorded Date Recorded By Document 05/16/24 11:20 [facility] [id number] 05/16/24 11:22 [facility] Document 05/23/24 09:23 [facility] [id number] 05/23/24 09:24 [facility] 05/16/24 05/23/24 11:20 09:23 Wound Care Center Nurse 3 #5 Abd Cluster -Ulcer Cleansing Rinsed/ Rinsed/ Irrigated with Irrigated with Saline Saline -Foul Odor after Cleansing No No -Primary Dressing Applied Aquacel AG 4x4 Aquacel AG 4x4 -Other Dressing abd abd -Primary Dressing Covered/Secured with Secured with Secured with Tape Tape -Aquacel AG 4x4 1 2 #4 Umbilicus -Ulcer Cleansing Rinsed/ Rinsed/ Irrigated with Irrigated with Saline Saline -Foul Odor after Cleansing No No -Primary Dressing Applied Aquacel AG 4x4 Aquacel AG 4x4 -Other Dressing abd abd -Primary Dressing Covered/Secured with Secured with Secured with Tape Tape -Aquacel AG 4x4 0 0 #3 R Breast -Ulcer Cleansing Rinsed/ Rinsed/ Irrigated with Irrigated with Saline Saline -Foul Odor after Cleansing No No -Primary Dressing Applied Aquacel AG 4x4 Aquacel AG 4x4 -Primary Dressing Covered/Secured with Dry Gauze, Dry Gauze, Secured with Secured with Tape Tape -Aquacel AG 4x4 0 0 Pain Scale: 0-10 Numeric Is Patient Pain Free? Yes Yes - Visit Discharge Discharge Condition Stable Stable Ambulatory Status Ambulatory Ambulatory Transportation Private Auto Private Auto Assessment/Plan Assessment/Plan (1) History of reconstruction of both breasts: CODE(S): Z98.890 - Other specified postprocedural states PLAN: Debrided gently and cleaned today. Umbilicus/abdomen healed. Continue Aquacel Ag dressings twice daily to the right breast wound F/u in 2 weeks Patient happy with the plan 06/06/24 09 <Electronically signed by Marlon Allen MD> Cosigner Signature (if applicable): CC: ~ Signed [facility] Work Phone: [phone] Progress note [facility] [address] [place] [address] Progress Note - Wound Care 06/06/24 0646 MR#: [id number] Acct: [id number] Name: IRENE LOPEZ Rep #:[id number] : 1975 48 From: Marlon Allen MD PCP: Dr. 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 History of Wound: Patient underwent MAKENNA flaps for bilateral breast reconstruction on 31 Mar 2024. There is an upper pole right breast wound that contained some fat necrosis from thin mastectomy flapdissection during capsulectomy/preparation for the flaps. There is healthy granulation tissue overthe flap at the base of the wound. Also has had some small wounds on the medialaspect of her donor site, all of which are being treated with Aquacel Ag. 16 May 2024: Less drainage today. No fevers chills. Doing well with wound care. 23 May 2024: Doing well overall with dressing changes. Making progress. Subjective Subjective CURRENT ENCOUNTER, 06 June 2024: Doing well. Feels like she's making progress with right upper pole breast wound,and the abdominal incision is nearly healed. Objective Data Objective Data Vital Signs: Vital Signs Temp Pulse Resp BP O2 Del Method 96.9 F L 80 16 145/80 H Room Air 05/23/24 08:52 05/23/24 08:52 05/23/24 08:52 05/23/24 08:52 05/23/24 08:52 Oxygen Delivery Method Room Air Weight: 172 lb Body Mass Index (BMI) 28.6 Charges/Coding Procedures Integumentary 111xxx-113xx: 99980 Global Visit Physical Exam Narrative Right breast wound healing well, granulating. No drainage. 0.5 x 1.1 cm and 1 cm deep. Re-packed today. Beafy red granulation at the base over the MAKENNA flap Central abdomen Re-epithelialized. Healthy umbilicus. Debridement Note Debridement Note Post-Debridement Measurements and Additional Note: Post-Debridement Measurements/Treatment - Nurse 1 - General Ulcer Assessment Start: 05/16/24 10:22 Freq: Status: Active Protocol: ANGY.LOWEXT Activity Type Activity Date Activity User E-sign Co-sign Detail Recorded Client Recorded Date Recorded By Document 05/16/24 10:22 [facility] [id number] 05/16/24 10:35 [facility] Document 05/23/24 08:52 KW [id number] 05/23/24 08:57 KW 05/16/24 05/23/24 10:22 08:52 - Today's Visit Information Type of service Initial Visit Follow-up Visit (Physician/TESTS SUPERINTENDENT ) Arrival Mode Ambulatory Ambulatory Transfer Assistance None Patient Identification Verified (Name & Yes Yes ) Patient Requires Transmission-Based No Precautions Height and Weight Height 5 ft 5 in Weight 172 lb Weight in Pounds 172.0 lbs Weight Measurement Method Stated by Patient Body Mass Index (BMI) 28.6 28.6 BMI Classification Overweight Overweight Vital Signs Temperature (97.8 F-99.1 F) 97.1 F L 96.9 F L Temperature Source Temporal Temporal Pulse Rate (60-100) 78 80 Pulse Location Monitor Monitor Respiratory Rate (12-18) 18 16 Respiratory rate source Observation Observation Oxygen Delivery Method Room Air Room Air Blood Pressure (90/60-120/80) 159/75 H 145/80 H Blood Pressure Mean (mm Hg) 103 101 Source Monitor Monitor Position Sitting Sitting Blood Pressure Location Right Arm Left Arm History Since Last Visit- (Skip if this is Patient's initial visit) Have you changed medications since your No last visit? Any new allergies or adverse reactions No Had a fall/change in ADL's that may No increase risk of falls Signs or symptoms of abuse and/or No neglect since last visit Have you been in the hospital since your No last visit? Has dressing in place as prescribed Yes Has compression in place as prescribed Yes Has offloadiing in place as prescribed N/A Experienced any changes in pain level or No management Left Footwear Regular Shoe Regular Shoe Right Footwear Regular Shoe Regular Shoe Pain Scale: 0-10 Numeric Is Patient Pain Free? 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/Confucianist Needs that may affect No Treatment Plan Teaching: Wound Center *Welcome to the Wound Center -Person Taught Patient -Teaching Method Discussion -Response to teaching Verbalize Understanding WC - Nurse 1 - General Ulcer Measurement Start: 05/16/24 10:22 Freq: Status: Active Protocol: Activity Type Activity Date Activity User E-sign Co-sign Detail Recorded Client Recorded Date Recorded By Document 05/16/24 10:22 [facility] [id number] 05/16/24 10:35 [facility] Document 05/23/24 08:52 [id number] 05/23/24 08:57 KW 05/16/24 05/23/24 10:22 08:52 Wound Center Nurse 1 #5 Abd Cluster -Current Size (cm) - Length 0.9 0.8 -Current Size (cm) - Width 14.3 13.5 -Current Size (cm) - Depth 0.2 0.6 -Total Square Cm 12.87 10.80 -Date of Last Picture (Recall this 05/16/24 05/23/24 field) -Photo Taken Yes -Tunneling No -Undermining/Tunneling No -Circular Undermining No -Exudate Amt Medium Medium -Exudate Type Serosanguineous Serosanguineous -Wound Margin Distinct, Distinct, Outline Outline Attached Attached -Granulation Amt None Present (0 Large (67-100%) %) -Granulation Quality Red -Necrosis Amt Large (67-100%) -Necrotic Tissue Type Adherent Slough -Structure Exposed N/A -Texture (Tarah-wound Skin Appearance) Scarring Assessed -Moisture (Tarah-wound Skin Appearance) No Abnormality Assessed -Color (Tarah-wound Skin Appearance) No Abnormality Assessed -Temperature (Tarah-wound Skin No Abnormality No Abnormality Appearance) (Pt Warm) (Pt Warm) -Tenderness on Palpation (Tarah-wound No Skin Appearance) -Ulcer Cleansing Soap and Water Rinsed/ Irrigated with Saline -Foul Odor after Cleansing No No -Anesthetic Used 5% Lidocaine 4% Lidocaine Gel Solution #4 Umbilicus -Combined with other wound No -Current Size (cm) - Length 0.1 0.1 -Current Size (cm) - Width 0.6 0.1 -Current Size (cm) - Depth 0.1 0 -Total Square Cm 0.06 0.01 -Date of Last Picture (Recall this 05/16/24 05/23/24 field) -Photo Taken Yes -Tunneling No -Undermining/Tunneling No -Circular Undermining No -Exudate Amt Small None Present -Exudate Type Serosanguineous -Wound Margin Distinct, Distinct, Outline Outline Attached Attached -Granulation Amt Large (67-100%) -Granulation Quality [place] -Necrosis Amt Small (1-33%) -Necrotic Tissue Type Adherent Slough -Structure Exposed N/A -Texture (Tarah-wound Skin Appearance) Scarring Assessed -Moisture (Tarah-wound Skin Appearance) No Abnormality Assessed,Dry/ Scaly -Color (Tarah-wound Skin Appearance) No Abnormality Assessed -Temperature (Tarah-wound Skin No Abnormality No Abnormality Appearance) (Pt Warm) (Pt Warm) -Tenderness on Palpation (Tarah-wound No No Skin Appearance) -Ulcer Cleansing Soap and Water Rinsed/ Irrigated with Saline -Foul Odor after Cleansing No No -Anesthetic Used 5% Lidocaine Gel #3 R Breast -Combined with other wound No -Current Size (cm) - Length 0.5 0.6 -Current Size (cm) - Width 1.4 1.3 -Current Size (cm) - Depth 1.9 1 -Total Square Cm 0.70 0.78 -Date of Last Picture (Recall this 05/23/24 field) -Photo Taken Yes -Tunneling Yes -Tunneling Position (O'clock) 3 -Tunneling Distance (cm) 4.7 -Undermining/Tunneling No -Circular Undermining No -Exudate Amt Medium Small -Exudate Type Serosanguineous Serosanguineous -Wound Margin Distinct, Distinct, Outline Outline Attached Attached -Granulation Amt Large (67-100%) -Granulation Quality Red -Necrosis Amt None Present (0 %) -Structure Exposed N/A -Texture (Tarah-wound Skin Appearance) No Abnormality, Assessed Scarring -Moisture (Tarah-wound Skin Appearance) No Abnormality Assessed -Color (Tarah-wound Skin Appearance) No Abnormality Assessed -Temperature (Tarah-wound Skin No Abnormality No Abnormality Appearance) (Pt Warm) (Pt Warm) -Tenderness on Palpation (Tarah-wound No Skin Appearance) -Ulcer Cleansing Soap and Water Rinsed/ Irrigated with Saline -Foul Odor after Cleansing No No -Anesthetic Used 5% Lidocaine 4% Lidocaine Gel Solution WC - Nurse 2 - General Ulcer CM Notes Start: 05/16/24 10:22 Freq: Status: Active Protocol: Activity Type Activity Date Activity User E-sign Co-sign Detail Recorded Client Recorded Date Recorded By Document 05/16/24 11:02 DS [id number] 05/16/24 11:12 DS Document 05/23/24 09:02 DS [id number] 05/23/24 09:07 DS 05/16/24 05/23/24 11:02 09:02 Wound Center Nurse 2 #5 Abd Cluster -Time 11: 09:02 -Correct Patient Yes Yes -Correct Side, Site, Position Yes Yes -Correct Procedure Yes Yes -Procedure Performed Yes Yes -Type of Procedure Debridement Debridement -Clinical Debridement Subcutaneous Subcutaneous -Tissue Removed Subcutaneous Subcutaneous -Post Debridement (cm) - Length 0.9 0.5 -Post Debridement (cm) - Width 14 14.0 -Post Debridement (cm) - Depth 0.7 0.7 -Total Square (Post) (cm) 12.6 7.00 -Area of Debridement (cm) - Length 0.9 0.5 -Area of Debridement (cm) - Width 14 14.0 -Total Square (Area) (cm) 12.6 7.00 -Tunneling No No -Undermining/Tunneling No No -Circular Undermining No No -Wound/Ulcer Outcome Not Healed Not Healed -Ulcer Cleansing Rinsed/ Rinsed/ Irrigated with Irrigated with Saline Saline -Foul Odor after Cleansing No No -Bioengineered Tissue No No -Bleeding Controlled with Pressure Pressure -Treatment Response Procedure Procedure Tolerated Well Tolerated Well -Offloading No -Debridement - Subq, 1st 20sq cm Yes No #4 Umbilicus -Time 11:00 09:03 -Correct Patient Yes Yes -Procedure Performed No No -Wound/Ulcer Outcome Healed- Epithelialized #3 R Breast -Time 11:00 09:03 -Correct Patient Yes Yes -Correct Side, Site, Position Yes -Correct Procedure Yes -Procedure Performed No Yes -Type of Procedure Debridement -Clinical Debridement Subcutaneous -Tissue Removed Subcutaneous -Post Debridement (cm) - Length 1.0 0.7 -Post Debridement (cm) - Width 0.5 1.5 -Post Debridement (cm) - Depth 1.0 1.0 -Total Square (Post) (cm) 0.50 1.05 -Area of Debridement (cm) - Length 1.0 0.7 -Area of Debridement (cm) - Width 0.5 1.5 -Total Square (Area) (cm) 0.50 1.05 -Tunneling No No -Undermining/Tunneling No No -Circular Undermining No No -Wound/Ulcer Outcome Not Healed Not Healed -Ulcer Cleansing Wound Cleanser -Foul Odor after Cleansing No -Bioengineered Tissue No -Bleeding Controlled with Pressure -Treatment Response Procedure Tolerated Well -Debridement - Subq, 1st 20sq cm Yes Pain Scale: 0-10 Numeric Is Patient Pain Free? Yes Yes - Nurse 3 - General Ulcer D/C NN Start: 05/16/24 10:22 Freq: Status: Active Protocol: Activity Type Activity Date Activity User E-sign Co-sign Detail Recorded Client Recorded Date Recorded By Document 05/16/24 11:20 [facility] [id number] 05/16/24 11:22 [facility] Document 05/23/24 09:23 [facility] [id number] 05/23/24 09:24 [facility] 05/16/24 05/23/24 11:20 09:23 Wound Care Center Nurse 3 #5 Abd Cluster -Ulcer Cleansing Rinsed/ Rinsed/ Irrigated with Irrigated with Saline Saline -Foul Odor after Cleansing No No -Primary Dressing Applied Aquacel AG 4x4 Aquacel AG 4x4 -Other Dressing abd abd -Primary Dressing Covered/Secured with Secured with Secured with Tape Tape -Aquacel AG 4x4 1 2 #4 Umbilicus -Ulcer Cleansing Rinsed/ Rinsed/ Irrigated with Irrigated with Saline Saline -Foul Odor after Cleansing No No -Primary Dressing Applied Aquacel AG 4x4 Aquacel AG 4x4 -Other Dressing abd abd -Primary Dressing Covered/Secured with Secured with Secured with Tape Tape -Aquacel AG 4x4 0 0 #3 R Breast -Ulcer Cleansing Rinsed/ Rinsed/ Irrigated with Irrigated with Saline Saline -Foul Odor after Cleansing No No -Primary Dressing Applied Aquacel AG 4x4 Aquacel AG 4x4 -Primary Dressing Covered/Secured with Dry Gauze, Dry Gauze, Secured with Secured with Tape Tape -Aquacel AG 4x4 0 0 Pain Scale: 0-10 Numeric Is Patient Pain Free? Yes Yes WC - Visit Discharge Discharge Condition Stable Stable Ambulatory Status Ambulatory Ambulatory Transportation Private Auto Private Auto Assessment/Plan Assessment/Plan (1) History of reconstruction of both breasts: CODE(S): Z98.890 - Other specified postprocedural states PLAN: Debrided gently and cleaned today. Umbilicus/abdomen healed. Continue Aquacel Ag dressings twice daily to the right breast wound F/u in 2 weeks Patient happy with the plan 06/06/24 09 Cosigner Signature (if applicable): CC: ~ Signed [facility]03-10-2025 Progress note Author Marlon Allen [facility] Note Date/Time May 23, 2024 9:4 8am [facility] [address] [place] [id number] Progress Note - Wound Care 05/23/24 0846 MR#: [id number] Acct: [id number] Name: IRENE LOPEZ Rep #:[id number] : 1975 48 From: Marlon Allen MD PCP: Dr. Amanda Osborne MD Statu s:REG RCR Location: ADDENDUM by Dr. Marlon Allen MD on 05/23/24 at 0948 Assessment & Plan (1) Non-pressure chronic ulcer of skin of other sites limited to breakdown of skin: 05/23/24 0948<Electronically signed by Marlon Allen MD> Cosigner Signature (if applicable): cc: ~* Signed History of Present Illness Date of Service: 05/23/24 Chief Complaint: Compromised bilateral nipple skin grafts after mastectomy with immediate reconstruction and placement of free nipple graft. History of Wound: Patient underwent MAKENNA flaps for bilateral breast reconstruction on 31 Mar 2024. There is an upper pole right breast wound that contained some fat necrosis from thin mastectomy flap dissection during capsulectomy/preparation for the flaps. There is healthy granulation tissue overthe flap at the base of the wound. Also has had some small wounds on the medialaspect of her donor site, all of which are being treated with Aquacel Ag. 16 May 2024: Less drainage today. No fevers chills. Doing well with wound care. CURRENT ENCOUNTER, 23 May 2024: Doing well overall with dressing changes. Making progress. Objective Data Objective Data Vital Signs: Vital Signs Temp Pulse Resp BP O2 Del Method 97.1 F L 78 18 159/75 H Room Air 05/16/24 10:22 05/16/24 10:22 05/16/24 10:22 05/16/24 10:22 05/16/24 10:22 Oxygen Delivery Method Room Air Weight: 172 lb Body Mass Index (BMI) 28.6 Charges/Coding Procedures Integumentary 111xxx-113xx: 47087 Global Visit Physical Exam Narrative Right breast wound healing well, granulating. No drainage. 1 x 0.5 cm and 1 cm deep. Re-packed today. Central abdomen with some spitting suture (N sorb) which were removed and the wound cleaned with curette (1 x 0.5 cm). The umbilicus has healed. Debridement Note Debridement Note Wound debrided: Gentle currette to the right chest and abdominal incision wounds Laterality: Right (right chest and central abdomen ) Type of Debridement: Excisional debridement Anesthesia Used: 4% Lidocaine Solution Depth: in the subcutaneous layer Percentage of wound debrided: 100 Instrument Used: 5mm curette Severity: Fat Layer Exposed Amount of bleeding with debridement: Mild Bleeding Controlled with: Compression and gauze Patient tolerated procedure: Patient tolerated procedure well Post-Debridement Measurements and Additional Note: Post-Debridement Measurements/Treatment - Nurse 1 - General Ulcer Assessment Start: 05/16/24 10:22 Freq: Status: Active Protocol: HERNANDEZ Activity Type Activity Date Activity User E-sign Co-sign Detail Recorded Client Recorded Date Recorded By Document 05/16/24 10:22 [facility] [id number] 05/16/24 10:35 [facility] 05/16/24 10:22 - Today's Visit Information Type of service Initial Visit Arrival Mode Ambulatory Transfer Assistance None Patient Identification Verified (Name & Yes ) Patient Requires Transmission-Based No Precautions Height and Weight Height 5 ft 5 in Weight 172 lb Weight in Pounds 172.0 lbs Weight Measurement Method Stated by Patient Body Mass Index (BMI) 28.6 BMI Classification Overweight Vital Signs Temperature (97.8 F-99.1 F) 97.1 F L Temperature Source Temporal Pulse Rate (60-100) 78 Pulse Location Monitor Respiratory Rate (12-18) 18 Respiratory rate source Observation Oxygen Delivery Method Room Air Blood Pressure (90/60-120/80) 159/75 H Blood Pressure Mean (mm Hg) 103 Source Monitor Position Sitting Blood Pressure Location Right Arm History Since Last Visit- (Skip if this is Patient's initial visit) Left Footwear Regular Shoe Right Footwear Regular Shoe Pain Scale: 0-10 Numeric Is Patient Pain Free? 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/Confucianist Needs that may affect No Treatment Plan Teaching: Wound Center *Welcome to the Wound Center -Person Taught Patient -Teaching Method Discussion -Response to teaching Verbalize Understanding WC - Nurse 1 - General Ulcer Measurement Start: 05/16/24 10:22 Freq: Status: Active Protocol: Activity Type Activity Date Activity User E-sign Co-sign Detail Recorded Client Recorded Date Recorded By Document 05/16/24 10:22 [facility] [id number] 05/16/24 10:35 [facility] 05/16/24 10:22 Wound Center Nurse 1 #5 Abd Cluster -Current Size (cm) - Length 0.9 -Current Size (cm) - Width 14.3 -Current Size (cm) - Depth 0.2 -Total Square Cm 12.87 -Date of Last Picture (Recall this 05/16/24 field) -Photo Taken Yes -Tunneling No -Undermining/Tunneling No -Circular Undermining No -Exudate Amt Medium -Exudate Type Serosanguineous -Wound Margin Distinct, Outline Attached -Granulation Amt None Present (0 %) -Necrosis Amt Large (67-100%) -Necrotic Tissue Type Adherent Slough -Structure Exposed N/A -Texture (Tarah-wound Skin Appearance) Scarring -Moisture (Tarah-wound Skin Appearance) No Abnormality -Color (Tarah-wound Skin Appearance) No Abnormality -Temperature (Tarah-wound Skin No Abnormality Appearance) (Pt Warm) -Ulcer Cleansing Soap and Water -Foul Odor after Cleansing No -Anesthetic Used 5% Lidocaine Gel #4 Umbilicus -Combined with other wound No -Current Size (cm) - Length 0.1 -Current Size (cm) - Width 0.6 -Current Size (cm) - Depth 0.1 -Total Square Cm 0.06 -Date of Last Picture (Recall this 05/16/24 field) -Photo Taken Yes -Tunneling No -Undermining/Tunneling No -Circular Undermining No -Exudate Amt Small -Exudate Type Serosanguineous -Wound Margin Distinct, Outline Attached -Granulation Amt Large (67-100%) -Granulation Quality [place] -Necrosis Amt Small (1-33%) -Necrotic Tissue Type Adherent Slough -Structure Exposed N/A -Texture (Tarah-wound Skin Appearance) Scarring -Moisture (Tarah-wound Skin Appearance) No Abnormality -Color (Tarah-wound Skin Appearance) No Abnormality -Temperature (Tarah-wound Skin No Abnormality Appearance) (Pt Warm) -Tenderness on Palpation (Tarah-wound No Skin Appearance) -Ulcer Cleansing Soap and Water -Foul Odor after Cleansing No -Anesthetic Used 5% Lidocaine Gel #3 R Breast -Combined with other wound No -Current Size (cm) - Length 0.5 -Current Size (cm) - Width 1.4 -Current Size (cm) - Depth 1.9 -Total Square Cm 0.70 -Photo Taken Yes -Tunneling Yes -Tunneling Position (O'clock) 3 -Tunneling Distance (cm) 4.7 -Undermining/Tunneling No -Circular Undermining No -Exudate Amt Medium -Exudate Type Serosanguineous -Wound Margin Distinct, Outline Attached -Granulation Amt Large (67-100%) -Granulation Quality Red -Necrosis Amt None Present (0 %) -Structure Exposed N/A -Texture (Tarah-wound Skin Appearance) No Abnormality, Scarring -Moisture (Tarah-wound Skin Appearance) No Abnormality -Color (Tarah-wound Skin Appearance) No Abnormality -Temperature (Tarah-wound Skin No Abnormality Appearance) (Pt Warm) -Ulcer Cleansing Soap and Water -Foul Odor after Cleansing No -Anesthetic Used 5% Lidocaine Gel WC - Nurse 2 - General Ulcer CM Notes Start: 05/16/24 10:22 Freq: Status: Active Protocol: Activity Type Activity Date Activity User E-sign Co-sign Detail Recorded Client Recorded Date Recorded By Document 05/16/24 11:02 DS [id number] 05/16/24 11:12 DS 05/16/24 11:02 Wound Center Nurse 2 #5 Abd Cluster -Time 11:00 -Correct Patient Yes -Correct Side, Site, Position Yes -Correct Procedure Yes -Procedure Performed Yes -Type of Procedure Debridement -Clinical Debridement Subcutaneous -Tissue Removed Subcutaneous -Post Debridement (cm) - Length 0.9 -Post Debridement (cm) - Width 14 -Post Debridement (cm) - Depth 0.7 -Total Square (Post) (cm) 12.6 -Area of Debridement (cm) - Length 0.9 -Area of Debridement (cm) - Width 14 -Total Square (Area) (cm) 12.6 -Tunneling No -Undermining/Tunneling No -Circular Undermining No -Wound/Ulcer Outcome Not Healed -Ulcer Cleansing Rinsed/ Irrigated with Saline -Foul Odor after Cleansing No -Bioengineered Tissue No -Bleeding Controlled with Pressure -Treatment Response Procedure Tolerated Well -Debridement - Subq, 1st 20sq cm Yes #4 Umbilicus -Time 11:00 -Correct Patient Yes -Procedure Performed No #3 R Breast -Time 11:00 -Correct Patient Yes -Procedure Performed No -Post Debridement (cm) - Length 1.0 -Post Debridement (cm) - Width 0.5 -Post Debridement (cm) - Depth 1.0 -Total Square (Post) (cm) 0.50 -Area of Debridement (cm) - Length 1.0 -Area of Debridement (cm) - Width 0.5 -Total Square (Area) (cm) 0.50 -Tunneling No -Undermining/Tunneling No -Circular Undermining No -Wound/Ulcer Outcome Not Healed Pain Scale: 0-10 Numeric Is Patient Pain Free? Yes ANGY - Nurse 3 - General Ulcer D/C NN Start: 05/16/24 10:22 Freq: Status: Active Protocol: Activity Type Activity Date Activity User E-sign Co-sign Detail Recorded Client Recorded Date Recorded By Document 05/16/24 11:20 [facility] [id number] 05/16/24 11:22 [facility] 05/16/24 11:20 Wound Care Center Nurse 3 #5 Abd Cluster -Ulcer Cleansing Rinsed/ Irrigated with Saline -Foul Odor after Cleansing No -Primary Dressing Applied Aquacel AG 4x4 -Other Dressing abd -Primary Dressing Covered/Secured with Secured with Tape -Aquacel AG 4x4 1 #4 Umbilicus -Ulcer Cleansing Rinsed/ Irrigated with Saline -Foul Odor after Cleansing No -Primary Dressing Applied Aquacel AG 4x4 -Other Dressing abd -Primary Dressing Covered/Secured with Secured with Tape -Aquacel AG 4x4 0 #3 R Breast -Ulcer Cleansing Rinsed/ Irrigated with Saline -Foul Odor after Cleansing No -Primary Dressing Applied Aquacel AG 4x4 -Primary Dressing Covered/Secured with Dry Gauze, Secured with Tape -Aquacel AG 4x4 0 Pain Scale: 0-10 Numeric Is Patient Pain Free? Yes WC - Visit Discharge Discharge Condition Stable Ambulatory Status Ambulatory Transportation Private Auto Assessment/Plan Assessment/Plan (1) History of reconstruction of both breasts: CODE(S): Z98.890 - Other specified postprocedural states PLAN: Debrided gently and cleaned today. Umbilicus healed, abdomen and right breast healing. OK for bra Continue Aquacel Ag dressings twice daily. F/u in 1 week Patient happy with the plan 05/23/24921 <Electronically signed by Marlon Allen MD> Cosigner Signature (if applicable): CC: ~ Signed [facility] Work Phone: [phone] Progress note [facility] [address] [place] [id number] Progress Note - Wound Care 05/23/24 0846 MR#: [id number] Acct: [id number] Name: IRENE LOPEZ Rep #:[id number] : 1975 48 From: Marlon Allen MD PCP: Dr. Amanda Osborne MD Statu s:REG RCR Location: ADDENDUM by Dr. Marlon Allen MD on 05/23/24 at 0948 Assessment & Plan (1) Non-pressure chronic ulcer of skin of other sites limited to breakdown of skin: 05/23/24 0948 Cosigner Signature (if applicable): cc: ~* Signed History of Present Illness Date of Service: 05/23/24 Chief Complaint: Compromised bilateral nipple skin grafts after mastectomy with immediate reconstruction and placement of free nipple graft. History of Wound: Patient underwent MAKENNA flaps for bilateral breast reconstruction on 31 Mar 2024. There is an upper pole right breast wound that contained some fat necrosis from thin mastectomy flapdissection during capsulectomy/preparation for the flaps. There is healthy granulation tissue overthe flap at the base of the wound. Also has had some small wounds on the medialaspect of her donor site, all of which are being treated with Aquacel Ag. 16 May 2024: Less drainage today. No fevers chills. Doing well with wound care. CURRENT ENCOUNTER, 23 May 2024: Doing well overall with dressing changes. Making progress. Objective Data Objective Data Vital Signs: Vital Signs Temp Pulse Resp BP O2 Del Method 97.1 F L 78 18 159/75 H Room Air 05/16/24 10:22 05/16/24 10:22 05/16/24 10:22 05/16/24 10:22 05/16/24 10:22 Oxygen Delivery Method Room Air Weight: 172 lb Body Mass Index (BMI) 28.6 Charges/Coding Procedures Integumentary 111xxx-113xx: 65996 Global Visit Physical Exam Narrative Right breast wound healing well, granulating. No drainage. 1 x 0.5 cm and 1 cm deep. Re-packed today. Central abdomen with some spitting suture (N sorb) which were removed and the wound cleaned with curette (1 x 0.5 cm). The umbilicus has healed. Debridement Note Debridement Note Wound debrided: Gentle currette to the right chest and abdominal incision wounds Laterality: Right (right chest and central abdomen ) Type of Debridement: Excisional debridement Anesthesia Used: 4% Lidocaine Solution Depth: in the subcutaneous layer Percentage of wound debrided: 100 Instrument Used: 5mm curette Severity: Fat Layer Exposed Amount of bleeding with debridement: Mild Bleeding Controlled with: Compression and gauze Patient tolerated procedure: Patient tolerated procedure well Post-Debridement Measurements and Additional Note: Post-Debridement Measurements/Treatment ANGY - Nurse 1 - General Ulcer Assessment Start: 05/16/24 10:22 Freq: Status: Active Protocol: HERNANDEZ Activity Type Activity Date Activity User E-sign Co-sign Detail Recorded Client Recorded Date Recorded By Document 05/16/24 10:22 [facility] [id number] 05/16/24 10:35 [facility] 05/16/24 10:22 - Today's Visit Information Type of service Initial Visit Arrival Mode Ambulatory Transfer Assistance None Patient Identification Verified (Name & Yes ) Patient Requires Transmission-Based No Precautions Height and Weight Height 5 ft 5 in Weight 172 lb Weight in Pounds 172.0 lbs Weight Measurement Method Stated by Patient Body Mass Index (BMI) 28.6 BMI Classification Overweight Vital Signs Temperature (97.8 F-99.1 F) 97.1 F L Temperature Source Temporal Pulse Rate (60-100) 78 Pulse Location Monitor Respiratory Rate (12-18) 18 Respiratory rate source Observation Oxygen Delivery Method Room Air Blood Pressure (90/60-120/80) 159/75 H Blood Pressure Mean (mm Hg) 103 Source Monitor Position Sitting Blood Pressure Location Right Arm History Since Last Visit- (Skip if this is Patient's initial visit) Left Footwear Regular Shoe Right Footwear Regular Shoe Pain Scale: 0-10 Numeric Is Patient Pain Free? 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/Confucianist Needs that may affect No Treatment Plan Teaching: Wound Center *Welcome to the Wound Center -Person Taught Patient -Teaching Method Discussion -Response to teaching Verbalize Understanding - Nurse 1 - General Ulcer Measurement Start: 05/16/24 10:22 Freq: Status: Active Protocol: Activity Type Activity Date Activity User E-sign Co-sign Detail Recorded Client Recorded Date Recorded By Document 05/16/24 10:22 [facility] [id number] 05/16/24 10:35 [facility] 05/16/24 10:22 Wound Center Nurse 1 #5 Abd Cluster -Current Size (cm) - Length 0.9 -Current Size (cm) - Width 14.3 -Current Size (cm) - Depth 0.2 -Total Square Cm 12.87 -Date of Last Picture (Recall this 05/16/24 field) -Photo Taken Yes -Tunneling No -Undermining/Tunneling No -Circular Undermining No -Exudate Amt Medium -Exudate Type Serosanguineous -Wound Margin Distinct, Outline Attached -Granulation Amt None Present (0 %) -Necrosis Amt Large (67-100%) -Necrotic Tissue Type Adherent Slough -Structure Exposed N/A -Texture (Tarah-wound Skin Appearance) Scarring -Moisture (Tarah-wound Skin Appearance) No Abnormality -Color (Tarah-wound Skin Appearance) No Abnormality -Temperature (Tarah-wound Skin No Abnormality Appearance) (Pt Warm) -Ulcer Cleansing Soap and Water -Foul Odor after Cleansing No -Anesthetic Used 5% Lidocaine Gel #4 Umbilicus -Combined with other wound No -Current Size (cm) - Length 0.1 -Current Size (cm) - Width 0.6 -Current Size (cm) - Depth 0.1 -Total Square Cm 0.06 -Date of Last Picture (Recall this 05/16/24 field) -Photo Taken Yes -Tunneling No -Undermining/Tunneling No -Circular Undermining No -Exudate Amt Small -Exudate Type Serosanguineous -Wound Margin Distinct, Outline Attached -Granulation Amt Large (67-100%) -Granulation Quality [place] -Necrosis Amt Small (1-33%) -Necrotic Tissue Type Adherent Slough -Structure Exposed N/A -Texture (Tarah-wound Skin Appearance) Scarring -Moisture (Tarah-wound Skin Appearance) No Abnormality -Color (Tarah-wound Skin Appearance) No Abnormality -Temperature (Tarah-wound Skin No Abnormality Appearance) (Pt Warm) -Tenderness on Palpation (Tarah-wound No Skin Appearance) -Ulcer Cleansing Soap and Water -Foul Odor after Cleansing No -Anesthetic Used 5% Lidocaine Gel #3 R Breast -Combined with other wound No -Current Size (cm) - Length 0.5 -Current Size (cm) - Width 1.4 -Current Size (cm) - Depth 1.9 -Total Square Cm 0.70 -Photo Taken Yes -Tunneling Yes -Tunneling Position (O'clock) 3 -Tunneling Distance (cm) 4.7 -Undermining/Tunneling No -Circular Undermining No -Exudate Amt Medium -Exudate Type Serosanguineous -Wound Margin Distinct, Outline Attached -Granulation Amt Large (67-100%) -Granulation Quality Red -Necrosis Amt None Present (0 %) -Structure Exposed N/A -Texture (Tarah-wound Skin Appearance) No Abnormality, Scarring -Moisture (Tarah-wound Skin Appearance) No Abnormality -Color (Tarah-wound Skin Appearance) No Abnormality -Temperature (Tarah-wound Skin No Abnormality Appearance) (Pt Warm) -Ulcer Cleansing Soap and Water -Foul Odor after Cleansing No -Anesthetic Used 5% Lidocaine Gel WC - Nurse 2 - General Ulcer CM Notes Start: 05/16/24 10:22 Freq: Status: Active Protocol: Activity Type Activity Date Activity User E-sign Co-sign Detail Recorded Client Recorded Date Recorded By Document 05/16/24 11:02 DS [id number] 05/16/24 11:12 DS 05/16/24 11:02 Wound Center Nurse 2 #5 Abd Cluster -Time 11:00 -Correct Patient Yes -Correct Side, Site, Position Yes -Correct Procedure Yes -Procedure Performed Yes -Type of Procedure Debridement -Clinical Debridement Subcutaneous -Tissue Removed Subcutaneous -Post Debridement (cm) - Length 0.9 -Post Debridement (cm) - Width 14 -Post Debridement (cm) - Depth 0.7 -Total Square (Post) (cm) 12.6 -Area of Debridement (cm) - Length 0.9 -Area of Debridement (cm) - Width 14 -Total Square (Area) (cm) 12.6 -Tunneling No -Undermining/Tunneling No -Circular Undermining No -Wound/Ulcer Outcome Not Healed -Ulcer Cleansing Rinsed/ Irrigated with Saline -Foul Odor after Cleansing No -Bioengineered Tissue No -Bleeding Controlled with Pressure -Treatment Response Procedure Tolerated Well -Debridement - Subq, 1st 20sq cm Yes #4 Umbilicus -Time 11:00 -Correct Patient Yes -Procedure Performed No #3 R Breast -Time 11:00 -Correct Patient Yes -Procedure Performed No -Post Debridement (cm) - Length 1.0 -Post Debridement (cm) - Width 0.5 -Post Debridement (cm) - Depth 1.0 -Total Square (Post) (cm) 0.50 -Area of Debridement (cm) - Length 1.0 -Area of Debridement (cm) - Width 0.5 -Total Square (Area) (cm) 0.50 -Tunneling No -Undermining/Tunneling No -Circular Undermining No -Wound/Ulcer Outcome Not Healed Pain Scale: 0-10 Numeric Is Patient Pain Free? Yes WC - Nurse 3 - General Ulcer D/C NN Start: 05/16/24 10:22 Freq: Status: Active Protocol: Activity Type Activity Date Activity User E-sign Co-sign Detail Recorded Client Recorded Date Recorded By Document 05/16/24 11:20 [facility] [id number] 05/16/24 11:22 [facility] 05/16/24 11:20 Wound Care Center Nurse 3 #5 Abd Cluster -Ulcer Cleansing Rinsed/ Irrigated with Saline -Foul Odor after Cleansing No -Primary Dressing Applied Aquacel AG 4x4 -Other Dressing abd -Primary Dressing Covered/Secured with Secured with Tape -Aquacel AG 4x4 1 #4 Umbilicus -Ulcer Cleansing Rinsed/ Irrigated with Saline -Foul Odor after Cleansing No -Primary Dressing Applied Aquacel AG 4x4 -Other Dressing abd -Primary Dressing Covered/Secured with Secured with Tape -Aquacel AG 4x4 0 #3 R Breast -Ulcer Cleansing Rinsed/ Irrigated with Saline -Foul Odor after Cleansing No -Primary Dressing Applied Aquacel AG 4x4 -Primary Dressing Covered/Secured with Dry Gauze, Secured with Tape -Aquacel AG 4x4 0 Pain Scale: 0-10 Numeric Is Patient Pain Free? Yes WC - Visit Discharge Discharge Condition Stable Ambulatory Status Ambulatory Transportation Private Auto Assessment/Plan Assessment/Plan (1) History of reconstruction of both breasts: CODE(S): Z98.890 - Other specified postprocedural states PLAN: Debrided gently and cleaned today. Umbilicus healed, abdomen and right breast healing. OK for bra Continue Aquacel Ag dressings twice daily. F/u in 1 week Patient happy with the plan 05/23/24 0922 Cosigner Signature (if applicable): CC: ~ Signed [facility]03-03-2025 History and physical note Author Marlon Allen [facility] Note Date/Time May 16, 2024 3:40 pm [facility] [address] [place] [address] H&P Exam - Wound Care 05/16/24 1320 MR#: [id number] Acct: [id number] Name: IRENE LOPEZ Rep #:[id number] : 1975 48 From: Marlon Allen MD PCP: Dr. Amanda Osborne MD Statu s:REG RCR Location: History of Present Illness Date of Service: 05/16/24 History of Wound: Patient underwent MAKENNA flaps for bilateral breast reconstruction on 31 Mar 2024. There is an upper pole right breast wound that contained some fat necrosis from thin mastectomy flap dissection during capsulectomy/preparation for the flaps. There is healthy granulation tissue overthe flap at the base of the wound. Also has had some small wounds on the medialaspect of her donor site, all of which are being treated with mepilex Ag. CURRENT ENCOUTNER, 16 May 2024: Less drainage today. No fevers chills. Doing well with wound care. 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 Headache Instructions: Resume on 04/11/24. omeprazole 40 mg capsule,delayed 40 mg PO DAILY gerd 0 03/28/22 03/31/24 04:00 History release sumatriptan succinate 100 mg tablet 100 mg PO PRN PRN MIGRAINE 03/28/22 Unknown History valacyclovir 500 mg tablet 500 mg PO DAILY PRN cold so res 03/28/22 03/30/24 06:30 History celecoxib 100 mg capsule (Celebrex) 100 mg PO BID 5 da ys #10 caps 04/03/24 Unknown Rx gabapentin 100 mg capsule 100 mg PO TID 5 days #15 cap s 04/03/24 Unknown Rx (Neurontin) ondansetron 4 mg disintegrating 4 mg PO Q8H PRN nausea and 04/03/24 Unknown Rx tablet vomiting #10 tabs silver sulfadiazine 1 % topical 1 applic topical BID # 50 grams 04/03/24 Unknown Rx cream Allergy/AdvReac Type Severity Reaction Status Date / Time Penicillins (PCN) Allergy Hives, RASH Verified 05/16/24 10:37 Family History Grandmother Breast cancer Aunt Breast cancer Father Diabetes Surgical History Hx of breast reconstruction History of prophylactic mastectomy of both breasts Status post implant removal from both breasts History of reconstruction of both breasts Hx of bilateral mastectomy History of placement of ear tubes History of bilateral breast implants Status post bilateral breast reconstruction Status post bilateral mastectomy History of bilateral oophorectomy History of bladder surgery History of hysterectomy Social History Smoking Status: Former smoker alcohol intake: current substance use type: does not use additional social history: Does Not Take Aspirin Does Take Ibuprofen As Needed Vital Signs Vital Signs Vital Signs: 05/16/24 10:22 Temperature 97.1 F L Temperature Source Temporal Pulse Rate 78 Respiratory Rate 18 Blood Pressure 159/75 H Blood Pressure Mean 103 Blood Pressure Source Monitor Blood Pressure Position Sitting Blood Pressure Location Right Arm Oxygen Delivery Method Room Air Weight Weight: 172 lb Body Mass Index (BMI) 28.6 Physical Exam Narrative Right breast wound healing well, granulating. No drainage. Central abdomen with some spitting suture (N sorb) which were removed and the wound cleaned with curette (1 x 0.5 cm). The umbilicus is granulating and healing well. Debridement Note Debridement Note Wound debrided: Central abdomen from donor site Wound Grade/Stage: 3 Type of Debridement: Excisional debridement Anesthesia Used: 4% Lidocaine Solution Depth: in the subcutaneous layer Percentage of wound debrided: 100 Instrument Used: 3mm curette Severity: Fat Layer Exposed Amount of bleeding with debridement: Mild Bleeding Controlled with: Compression and gauze Patient tolerated procedure: Patient tolerated procedure well Post-Debridement Measurements and Additional Note: Post-Debridement Measurements/Treatment WC - Nurse 1 - General Ulcer Assessment Start: 05/16/24 10:22 Freq: Status: Active Protocol: HERNANDEZ Activity Type Activity Date Activity User E-sign Co-sign Detail Recorded Client Recorded Date Recorded By Document 05/16/24 10:22 [facility] [id number] 05/16/24 10:35 [facility] 05/16/24 10:22 - Today's Visit Information Type of service Initial Visit Arrival Mode Ambulatory Transfer Assistance None Patient Identification Verified (Name & Yes ) Patient Requires Transmission-Based No Precautions Height and Weight Height 5 ft 5 in Weight 172 lb Weight in Pounds 172.0 lbs Weight Measurement Method Stated by Patient Body Mass Index (BMI) 28.6 BMI Classification Overweight Vital Signs Temperature (97.8 F-99.1 F) 97.1 F L Temperature Source Temporal Pulse Rate (60-100) 78 Pulse Location Monitor Respiratory Rate (12-18) 18 Respiratory rate source Observation Oxygen Delivery Method Room Air Blood Pressure (90/60-120/80) 159/75 H Blood Pressure Mean 103 Source Monitor Position Sitting Blood Pressure Location Right Arm History Since Last Visit- (Skip if this is Patient's initial visit) Left Footwear Regular Shoe Right Footwear Regular Shoe Pain Scale: 0-10 Numeric Is Patient Pain Free? 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/Confucianist Needs that may affect No Treatment Plan Teaching: Wound Center *Welcome to the Wound Center -Person Taught Patient -Teaching Method Discussion -Response to teaching Verbalize Understanding - Nurse 1 - General Ulcer Measurement Start: 05/16/24 10:22 Freq: Status: Active Protocol: Activity Type Activity Date Activity User E-sign Co-sign Detail Recorded Client Recorded Date Recorded By Document 05/16/24 10:22 [facility] [id number] 05/16/24 10:35 [facility] 05/16/24 10:22 Wound Center Nurse 1 #5 Abd Cluster -Current Size (cm) - Length 0.9 -Current Size (cm) - Width 14.3 -Current Size (cm) - Depth 0.2 -Total Square Cm 12.87 -Date of Last Picture (Recall this 05/16/24 field) -Photo Taken Yes -Tunneling No -Undermining/Tunneling No -Circular Undermining No -Exudate Amt Medium -Exudate Type Serosanguineous -Wound Margin Distinct, Outline Attached -Granulation Amt None Present (0 %) -Necrosis Amt Large (67-100%) -Necrotic Tissue Type Adherent Slough -Structure Exposed N/A -Texture (Tarah-wound Skin Appearance) Scarring -Moisture (Tarah-wound Skin Appearance) No Abnormality -Color (Tarah-wound Skin Appearance) No Abnormality -Temperature (Tarah-wound Skin No Abnormality Appearance) (Pt Warm) -Ulcer Cleansing Soap and Water -Foul Odor after Cleansing No -Anesthetic Used 5% Lidocaine Gel #4 Umbilicus -Combined with other wound No -Current Size (cm) - Length 0.1 -Current Size (cm) - Width 0.6 -Current Size (cm) - Depth 0.1 -Total Square Cm 0.06 -Date of Last Picture (Recall this 05/16/24 field) -Photo Taken Yes -Tunneling No -Undermining/Tunneling No -Circular Undermining No -Exudate Amt Small -Exudate Type Serosanguineous -Wound Margin Distinct, Outline Attached -Granulation Amt Large (67-100%) -Granulation Quality [place] -Necrosis Amt Small (1-33%) -Necrotic Tissue Type Adherent Slough -Structure Exposed N/A -Texture (Tarah-wound Skin Appearance) Scarring -Moisture (Tarah-wound Skin Appearance) No Abnormality -Color (Tarah-wound Skin Appearance) No Abnormality -Temperature (Tarah-wound Skin No Abnormality Appearance) (Pt Warm) -Tenderness on Palpation (Tarah-wound No Skin Appearance) -Ulcer Cleansing Soap and Water -Foul Odor after Cleansing No -Anesthetic Used 5% Lidocaine Gel #3 R Breast -Combined with other wound No -Current Size (cm) - Length 0.5 -Current Size (cm) - Width 1.4 -Current Size (cm) - Depth 1.9 -Total Square Cm 0.70 -Photo Taken Yes -Tunneling Yes -Tunneling Position (O'clock) 3 -Tunneling Distance (cm) 4.7 -Undermining/Tunneling No -Circular Undermining No -Exudate Amt Medium -Exudate Type Serosanguineous -Wound Margin Distinct, Outline Attached -Granulation Amt Large (67-100%) -Granulation Quality Red -Necrosis Amt None Present (0 %) -Structure Exposed N/A -Texture (Tarah-wound Skin Appearance) No Abnormality, Scarring -Moisture (Tarah-wound Skin Appearance) No Abnormality -Color (Tarah-wound Skin Appearance) No Abnormality -Temperature (Tarah-wound Skin No Abnormality Appearance) (Pt Warm) -Ulcer Cleansing Soap and Water -Foul Odor after Cleansing No -Anesthetic Used 5% Lidocaine Gel WC - Nurse 2 - General Ulcer CM Notes Start: 05/16/24 10:22 Freq: Status: Active Protocol: Activity Type Activity Date Activity User E-sign Co-sign Detail Recorded Client Recorded Date Recorded By Document 05/16/24 11:02 DS [id number] 05/16/24 11:12 DS 05/16/24 11:02 Wound Center Nurse 2 #5 Abd Cluster -Time 11:00 -Correct Patient Yes -Correct Side, Site, Position Yes -Correct Procedure Yes -Procedure Performed Yes -Type of Procedure Debridement -Clinical Debridement Subcutaneous -Tissue Removed Subcutaneous -Post Debridement (cm) - Length 0.9 -Post Debridement (cm) - Width 14 -Post Debridement (cm) - Depth 0.7 -Total Square (Post) (cm) 12.6 -Area of Debridement (cm) - Length 0.9 -Area of Debridement (cm) - Width 14 -Total Square (Area) (cm) 12.6 -Tunneling No -Undermining/Tunneling No -Circular Undermining No -Wound/Ulcer Outcome Not Healed -Ulcer Cleansing Rinsed/ Irrigated with Saline -Foul Odor after Cleansing No -Bioengineered Tissue No -Bleeding Controlled with Pressure -Treatment Response Procedure Tolerated Well -Debridement - Subq, 1st 20sq cm Yes #4 Umbilicus -Time 11:00 -Correct Patient Yes -Procedure Performed No #3 R Breast -Time 11:00 -Correct Patient Yes -Procedure Performed No -Post Debridement (cm) - Length 1.0 -Post Debridement (cm) - Width 0.5 -Post Debridement (cm) - Depth 1.0 -Total Square (Post) (cm) 0.50 -Area of Debridement (cm) - Length 1.0 -Area of Debridement (cm) - Width 0.5 -Total Square (Area) (cm) 0.50 -Tunneling No -Undermining/Tunneling No -Circular Undermining No -Wound/Ulcer Outcome Not Healed Pain Scale: 0-10 Numeric Is Patient Pain Free? Yes - Nurse 3 - General Ulcer D/C NN Start: 05/16/24 10:22 Freq: Status: Active Protocol: Activity Type Activity Date Activity User E-sign Co-sign Detail Recorded Client Recorded Date Recorded By Document 05/16/24 11:20 [facility] [id number] 05/16/24 11:22 [facility] 05/16/24 11:20 Wound Care Center Nurse 3 #5 Abd Cluster -Ulcer Cleansing Rinsed/ Irrigated with Saline -Foul Odor after Cleansing No -Primary Dressing Applied Aquacel AG 4x4 -Other Dressing abd -Primary Dressing Covered/Secured with Secured with Tape -Aquacel AG 4x4 1 #4 Umbilicus -Ulcer Cleansing Rinsed/ Irrigated with Saline -Foul Odor after Cleansing No -Primary Dressing Applied Aquacel AG 4x4 -Other Dressing abd -Primary Dressing Covered/Secured with Secured with Tape -Aquacel AG 4x4 0 #3 R Breast -Ulcer Cleansing Rinsed/ Irrigated with Saline -Foul Odor after Cleansing No -Primary Dressing Applied Aquacel AG 4x4 -Primary Dressing Covered/Secured with Dry Gauze, Secured with Tape -Aquacel AG 4x4 0 Pain Scale: 0-10 Numeric Is Patient Pain Free? Yes WC - Visit Discharge Discharge Condition Stable Ambulatory Status Ambulatory Transportation Private Auto Charges/Coding Procedures Integumentary 111xxx-113xx: 54355 Global Visit Assessment/Plan Assessment/Plan (1) History of reconstruction of both breasts: CODE(S): Z98.890 - Other specified postprocedural states PLAN: Central abdomen with with some break down centrally. Debrided and cleaned today. Umbilicus and right breast healing well. Continue Aquacel Ag dressings twice daily. F/u in 1 week 05/16/24 1640 <Electronically signed by Marlon Allen MD> Cosigner Signature (if applicable): CC: ~ Signed [facility] Work Phone: [phone]) 360-994703-03-2025 History and physical note [facility] [address] [place] [address] H&P Exam - Wound Care 05/16/24 1320 MR#: [id number] Acct: [id number] Name: IRENE LOPEZ Rep #:[id number] : 1975 48 From: Marlon Allen MD PCP: Dr. Amanda Osborne MD Statu s:REG RCR Location: History of Present Illness Date of Service: 05/16/24 History of Wound: Patient underwent MAKENNA flaps for bilateral breast reconstruction on 31 Mar 2024. There is an upper pole right breast wound that contained some fat necrosis from thin mastectomy flapdissection during capsulectomy/preparation for the flaps. There is healthy granulation tissue overthe flap at the base of the wound. Also has had some small wounds on the medialaspect of her donor site, all of which are being treated with mepilex Ag. CURRENT ENCOUTNER, 16 May 2024: Less drainage today. No fevers chills. Doing well with wound care. 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 Headache Instructions: Resume on 04/11/24. omeprazole 40 mg capsule,delayed 40 mg PO DAILY gerd 0 03/28/22 03/31/24 04:00 History release sumatriptan succinate 100 mg tablet 100 mg PO PRN PRN MIGRAINE 03/28/22 Unknown History valacyclovir 500 mg tablet 500 mg PO DAILY PRN cold so res 03/28/22 03/30/24 06:30 History celecoxib 100 mg capsule (Celebrex) 100 mg PO BID 5 da ys #10 caps 04/03/24 Unknown Rx gabapentin 100 mg capsule 100 mg PO TID 5 days #15 cap s 04/03/24 Unknown Rx (Neurontin) ondansetron 4 mg disintegrating 4 mg PO Q8H PRN nausea and 04/03/24 Unknown Rx tablet vomiting #10 tabs silver sulfadiazine 1 % topical 1 applic topical BID # 50 grams 04/03/24 Unknown Rx cream Allergy/AdvReac Type Severity Reaction Status Date / Time Penicillins (PCN) Allergy Hives, RASH Verified 05/16/24 10:37 Family History Grandmother Breast cancer Aunt Breast cancer Father Diabetes Surgical History Hx of breast reconstruction History of prophylactic mastectomy of both breasts Status post implant removal from both breasts History of reconstruction of both breasts Hx of bilateral mastectomy History of placement of ear tubes History of bilateral breast implants Status post bilateral breast reconstruction Status post bilateral mastectomy History of bilateral oophorectomy History of bladder surgery History of hysterectomy Social History Smoking Status: Former smoker alcohol intake: current substance use type: does not use additional social history: Does Not Take Aspirin Does Take Ibuprofen As Needed Vital Signs Vital Signs Vital Signs: 05/16/24 10:22 Temperature 97.1 F L Temperature Source Temporal Pulse Rate 78 Respiratory Rate 18 Blood Pressure 159/75 H Blood Pressure Mean 103 Blood Pressure Source Monitor Blood Pressure Position Sitting Blood Pressure Location Right Arm Oxygen Delivery Method Room Air Weight Weight: 172 lb Body Mass Index (BMI) 28.6 Physical Exam Narrative Right breast wound healing well, granulating. No drainage. Central abdomen with some spitting suture (N sorb) which were removed and the wound cleaned with curette (1 x 0.5 cm). The umbilicus is granulating and healing well. Debridement Note Debridement Note Wound debrided: Central abdomen from donor site Wound Grade/Stage: 3 Type of Debridement: Excisional debridement Anesthesia Used: 4% Lidocaine Solution Depth: in the subcutaneous layer Percentage of wound debrided: 100 Instrument Used: 3mm curette Severity: Fat Layer Exposed Amount of bleeding with debridement: Mild Bleeding Controlled with: Compression and gauze Patient tolerated procedure: Patient tolerated procedure well Post-Debridement Measurements and Additional Note: Post-Debridement Measurements/Treatment WC - Nurse 1 - General Ulcer Assessment Start: 05/16/24 10:22 Freq: Status: Active Protocol: HERNANDEZ Activity Type Activity Date Activity User E-sign Co-sign Detail Recorded Client Recorded Date Recorded By Document 05/16/24 10:22 [facility] [id number] 05/16/24 10:35 [facility] 05/16/24 10:22 - Today's Visit Information Type of service Initial Visit Arrival Mode Ambulatory Transfer Assistance None Patient Identification Verified (Name & Yes ) Patient Requires Transmission-Based No Precautions Height and Weight Height 5 ft 5 in Weight 172 lb Weight in Pounds 172.0 lbs Weight Measurement Method Stated by Patient Body Mass Index (BMI) 28.6 BMI Classification Overweight Vital Signs Temperature (97.8 F-99.1 F) 97.1 F L Temperature Source Temporal Pulse Rate (60-100) 78 Pulse Location Monitor Respiratory Rate (12-18) 18 Respiratory rate source Observation Oxygen Delivery Method Room Air Blood Pressure (90/60-120/80) 159/75 H Blood Pressure Mean 103 Source Monitor Position Sitting Blood Pressure Location Right Arm History Since Last Visit- (Skip if this is Patient's initial visit) Left Footwear Regular Shoe Right Footwear Regular Shoe Pain Scale: 0-10 Numeric Is Patient Pain Free? 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/Confucianist Needs that may affect No Treatment Plan Teaching: Wound Center *Welcome to the Wound Center -Person Taught Patient -Teaching Method Discussion -Response to teaching Verbalize Understanding ANGY Brown Nurse 1 - General Ulcer Measurement Start: 05/16/24 10:22 Freq: Status: Active Protocol: Activity Type Activity Date Activity User E-sign Co-sign Detail Recorded Client Recorded Date Recorded By Document 05/16/24 10:22 [facility] [id number] 05/16/24 10:35 [facility] 05/16/24 10:22 Wound Center Nurse 1 #5 Abd Cluster -Current Size (cm) - Length 0.9 -Current Size (cm) - Width 14.3 -Current Size (cm) - Depth 0.2 -Total Square Cm 12.87 -Date of Last Picture (Recall this 05/16/24 field) -Photo Taken Yes -Tunneling No -Undermining/Tunneling No -Circular Undermining No -Exudate Amt Medium -Exudate Type Serosanguineous -Wound Margin Distinct, Outline Attached -Granulation Amt None Present (0 %) -Necrosis Amt Large (67-100%) -Necrotic Tissue Type Adherent Slough -Structure Exposed N/A -Texture (Tarah-wound Skin Appearance) Scarring -Moisture (Tarah-wound Skin Appearance) No Abnormality -Color (Tarah-wound Skin Appearance) No Abnormality -Temperature (Tarah-wound Skin No Abnormality Appearance) (Pt Warm) -Ulcer Cleansing Soap and Water -Foul Odor after Cleansing No -Anesthetic Used 5% Lidocaine Gel #4 Umbilicus -Combined with other wound No -Current Size (cm) - Length 0.1 -Current Size (cm) - Width 0.6 -Current Size (cm) - Depth 0.1 -Total Square Cm 0.06 -Date of Last Picture (Recall this 05/16/24 field) -Photo Taken Yes -Tunneling No -Undermining/Tunneling No -Circular Undermining No -Exudate Amt Small -Exudate Type Serosanguineous -Wound Margin Distinct, Outline Attached -Granulation Amt Large (67-100%) -Granulation Quality [place] -Necrosis Amt Small (1-33%) -Necrotic Tissue Type Adherent Slough -Structure Exposed N/A -Texture (Tarah-wound Skin Appearance) Scarring -Moisture (Tarah-wound Skin Appearance) No Abnormality -Color (Tarah-wound Skin Appearance) No Abnormality -Temperature (Tarah-wound Skin No Abnormality Appearance) (Pt Warm) -Tenderness on Palpation (Tarah-wound No Skin Appearance) -Ulcer Cleansing Soap and Water -Foul Odor after Cleansing No -Anesthetic Used 5% Lidocaine Gel #3 R Breast -Combined with other wound No -Current Size (cm) - Length 0.5 -Current Size (cm) - Width 1.4 -Current Size (cm) - Depth 1.9 -Total Square Cm 0.70 -Photo Taken Yes -Tunneling Yes -Tunneling Position (O'clock) 3 -Tunneling Distance (cm) 4.7 -Undermining/Tunneling No -Circular Undermining No -Exudate Amt Medium -Exudate Type Serosanguineous -Wound Margin Distinct, Outline Attached -Granulation Amt Large (67-100%) -Granulation Quality Red -Necrosis Amt None Present (0 %) -Structure Exposed N/A -Texture (Tarah-wound Skin Appearance) No Abnormality, Scarring -Moisture (Tarah-wound Skin Appearance) No Abnormality -Color (Tarah-wound Skin Appearance) No Abnormality -Temperature (Tarah-wound Skin No Abnormality Appearance) (Pt Warm) -Ulcer Cleansing Soap and Water -Foul Odor after Cleansing No -Anesthetic Used 5% Lidocaine Gel WC - Nurse 2 - General Ulcer CM Notes Start: 05/16/24 10:22 Freq: Status: Active Protocol: Activity Type Activity Date Activity User E-sign Co-sign Detail Recorded Client Recorded Date Recorded By Document 05/16/24 11:02 DS [id number] 05/16/24 11:12 DS 05/16/24 11:02 Wound Center Nurse 2 #5 Abd Cluster -Time 11:00 -Correct Patient Yes -Correct Side, Site, Position Yes -Correct Procedure Yes -Procedure Performed Yes -Type of Procedure Debridement -Clinical Debridement Subcutaneous -Tissue Removed Subcutaneous -Post Debridement (cm) - Length 0.9 -Post Debridement (cm) - Width 14 -Post Debridement (cm) - Depth 0.7 -Total Square (Post) (cm) 12.6 -Area of Debridement (cm) - Length 0.9 -Area of Debridement (cm) - Width 14 -Total Square (Area) (cm) 12.6 -Tunneling No -Undermining/Tunneling No -Circular Undermining No -Wound/Ulcer Outcome Not Healed -Ulcer Cleansing Rinsed/ Irrigated with Saline -Foul Odor after Cleansing No -Bioengineered Tissue No -Bleeding Controlled with Pressure -Treatment Response Procedure Tolerated Well -Debridement - Subq, 1st 20sq cm Yes #4 Umbilicus -Time 11:00 -Correct Patient Yes -Procedure Performed No #3 R Breast -Time 11:00 -Correct Patient Yes -Procedure Performed No -Post Debridement (cm) - Length 1.0 -Post Debridement (cm) - Width 0.5 -Post Debridement (cm) - Depth 1.0 -Total Square (Post) (cm) 0.50 -Area of Debridement (cm) - Length 1.0 -Area of Debridement (cm) - Width 0.5 -Total Square (Area) (cm) 0.50 -Tunneling No -Undermining/Tunneling No -Circular Undermining No -Wound/Ulcer Outcome Not Healed Pain Scale: 0-10 Numeric Is Patient Pain Free? Yes - Nurse 3 - General Ulcer D/C NN Start: 05/16/24 10:22 Freq: Status: Active Protocol: Activity Type Activity Date Activity User E-sign Co-sign Detail Recorded Client Recorded Date Recorded By Document 05/16/24 11:20 [facility] [id number] 05/16/24 11:22 [facility] 05/16/24 11:20 Wound Care Center Nurse 3 #5 Abd Cluster -Ulcer Cleansing Rinsed/ Irrigated with Saline -Foul Odor after Cleansing No -Primary Dressing Applied Aquacel AG 4x4 -Other Dressing abd -Primary Dressing Covered/Secured with Secured with Tape -Aquacel AG 4x4 1 #4 Umbilicus -Ulcer Cleansing Rinsed/ Irrigated with Saline -Foul Odor after Cleansing No -Primary Dressing Applied Aquacel AG 4x4 -Other Dressing abd -Primary Dressing Covered/Secured with Secured with Tape -Aquacel AG 4x4 0 #3 R Breast -Ulcer Cleansing Rinsed/ Irrigated with Saline -Foul Odor after Cleansing No -Primary Dressing Applied Aquacel AG 4x4 -Primary Dressing Covered/Secured with Dry Gauze, Secured with Tape -Aquacel AG 4x4 0 Pain Scale: 0-10 Numeric Is Patient Pain Free? Yes - Visit Discharge Discharge Condition Stable Ambulatory Status Ambulatory Transportation Private Auto Charges/Coding Procedures Integumentary [id number]: [id number] Global Visit Assessment/Plan Assessment/Plan (1) History of reconstruction of both breasts: CODE(S): Z98.890 - Other specified postprocedural states PLAN: Central abdomen with with some break down centrally. Debrided and cleaned today. Umbilicus and right breast healing well. Continue Aquacel Ag dressings twice daily. F/u in 1 week 05/16/24 1640 Cosigner Signature (if applicable): CC: ~ Signed [place] 42915-19-2025 [facility] Medical Records Department [address] [place] [address] Discharge Summary 04/03/24 1032 MR#: [id number] Acct: [id number] Name: IRENE LOPEZ Rep #: [id number] : 1975 48 From: Marlon Allen MD PCP: Dr. Amanda Osborne MD Status:ADM IN Location: ICU ICU03-1 Providers Date of Admission: 03/31/24 Primary Care Physician: Dr. Amanda Osborne MD Reason For Visit: Breast Implant removal and capsulectomy bilateral, Diagnosis Discharge Diagnosis (1) History of reconstruction of both breasts: Status: Acute Code(s): Z98.890 - Other specified postprocedural states Plan: Neuro: Pain controlled, oral pain meds (DC IV pain medication) Cardiovascular: No concerns at this time Resp: Incentive Spirometer consistently (discussed) Abdomen: Miralax for constipation. SSD twice daily to umbilicus. FEN: Regular diet. Electrolytes stable on POD 1 labs. No further labs unless indication Hem: Hgb 11.2 pod 1 (11.5 preop). SCDs and Hep 5K TID for DVT prophylaxis Plan to walk with PT assistance today OK to transfer to the floor for Q4 hour flap checks No pressure on flaps Medications at Discharge Home Medications ibuprofen 800 mg tablet 800 mg PO Q12H PRN PRN Migraine Headache 03/28/22 omeprazole 40 mg capsule,delayed release 40 mg PO DAILY gerd 03/28/22 sumatriptan succinate 100 mg tablet 100 mg PO PRN PRN MIGRAINE 03/28/22 valacyclovir 500 mg tablet 500 mg PO DAILY PRN cold sores 03/28/22 celecoxib 100 mg capsule (Celebrex) 100 mg PO BID 5 days #10 caps 04/03/24 clindamycin HCl 300 mg capsule 300 mg PO Q8H 7 days #21 caps 04/03/24 gabapentin 100 mg capsule (Neurontin) 100 mg PO TID 5 days #15 caps 04/03/24 ondansetron 4 mg disintegrating tablet 4 mg PO Q8H PRN nausea and vomiting #10 tabs 04/03/24 oxycodone 5 mg tablet 5 mg PO Q8H PRN pain 7 days #20 tabs 04/03/24 silver sulfadiazine 1 % topical cream 1 applic topical BID #50 grams 04/03/24 Hospital Course Summary of Care Provided Hospital Course: Irene Lopez is a 48-year-old female who underwent bilateral implant removal/capsulectomy with bilateral breast reconstruction using Deep Inferior Epigastric Software Engineer Mobile (MAKENNA) flaps on 31 Mar 2024. She went to the ICU for 2 nights for flap monitoring (q1 hour checks). Her VS were stable and she had viable flaps (no concerns for ischemia). Her Hgb was stable (11.2 from 11.5) on post-op day 1. Her White was removed and she was able to void without issues. On POD 2 she was able to have two bowel movements. She continued to have a re-assuring flap examination and was transferred to floor status for q4 hour checks. On the date of discharge, POD3, patient's pain is controlled on non-narcotic PO medications (Tylenol, Neurontin, Celebrex). She is doing 1300 on IS and saturating consistently between 95 and 96% on room air. No SOB or lower extremity swelling. She was fitted for a binder at bedside today that does not put pressure on the flaps but keeps her belly supported. She reports some tingling sensation/numbness in the median nerve distribution of her left hand (not over the thenar eminence, but just on the finger tips of the thumb, index and long fingers). She reports that she noticed it involving the radial border of the ring yesterday, but this has since gone away. No other problems with hand function or sensation, or LUE sensation or movement. I talked to the patient about plan to monitor her symptoms of carpal tunnel syndrome (post op) and she was happy with that plan. She reports that she thinks it's getting better. Patient endorsed an understanding of drain care and concerning signs/symptoms of flap ischemia/congestion as well as signs/symptoms of infection. On the morning of discharge, I walked with her and the nursing staff around the entire castelan and she had no problems. She has several family members at home to assist her. I reiterated to her the need to keep pressure off of her chest/the flaps. 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 No signs of bleeding/hematoma. Drains appropriate. Skin paddles with good capillary refill. No signs of congestion. Triphasic signal on skin paddles bilaterally. Good venous signals as well bilaterally. Drains functioning and have appropriate output. Const alert and oriented x3 HEENT normocephalic Eyes EOMs intact bilaterally Neck full ROM Resp normal respiratory effort Resp Narrative: Able to do 1300 on IS this morning consistently. Cardio regular rate GI GI Narrative: Abdomen is soft, no signs of fluid collection. Umbilicus with slight dark/dusky discoloration. SSD applied Extremity full ROM and no calf tenderness Extremity Narrative: No lower extremity swelling. No signs of fluid overload. Left Upper Extremity Inspection:N (more content not included)...[facility]01-15-2025 Evaluation note* Diagnosis Onset Date Resolution Status Admit Date History of reconstruction of both breasts acute March 30 3:17pm Deformity of reconstructed breast chronic March 30 3:17pm History of reconstruction of both breasts acute March 31 8:00pm Deformity of reconstructed breast chronic March 31 8:00pm History of prophylactic mastectomy of both breasts chronic Janua 2024 8:00pm Prophylactic breast removal inactive March 31, 2024 8:00pm History of reconstruction of both breasts acute April 07 10:22am History of reconstruction of both breasts acute April 11 2:59pm History of reconstruction of both breasts acute April 19 4:00pm History of reconstruction of both breasts acute April 26, 2 025 2:51pm Fat necrosis (segmental) of breast acute May 03, 2 025 8:19am Seroma acute May 03, 2024 8:19am Fat necrosis (segmental) of breast acute May 06, 2 025 1:30pm Fat necrosis (segmental) of breast acute May 10, 2 025 3:22pm History of reconstruction of both breasts acute May 10, 2 025 3:22pm Seroma acute May 10, 2024 3:22pm History of prophylactic mastectomy of both breasts chronic Febru [email or web address] 3:22pm Status post implant removal from both breasts chronic May 10, 2024 3:22pm History of reconstruction of both breasts acute June 06, 2024 8:45am 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 female who presents for PREOP CONSULT . Here for pre-op evaluation. We had done pre-op visit in the fall but her surgery got cancelled due to the IV fluid shortage. She has had multiple previous surgeries, no issues with anesthesia in the past. She has a h/o mastectomy with MRSA complicating healing. She has been otherwise healthy with h/o migraines reasonably well controlled on medication, GERD onomeprazole, seasonal allergies on zyrtec, herpes on valtrex daily. Objective Visit Vitals BP 138/78 (BP Location: Left arm) Pulse 98 Physical Exam Vitals reviewed. Constitutional: General: She is not in acute distress. Cardiovascular: Rate and Rhythm: Normal rate and regular rhythm. Heart sounds: No murmur heard. Pulmonary: Effort: Pulmonary effort is normal. No respiratory distress. Breath sounds: Normal breath sounds. Skin: General: Skin is warm and dry. Neurological: General: No focal deficit present. Mental Status: She is alert. Mental status is at baseline. Assessment/Plan Problem List Items Addressed This Visit Migraine headache Relevant Medications SUMAtriptan (Imitrex) 100 mg tablet History of prophylactic mastectomy of both breasts Gastroesophageal reflux disease Relevant Medications omeprazole (PriLOSEC) [address] capsule Herpes Relevant Medications valACYclovir (Valtrex) 500 mg tablet Preop examination - Primary Amanda Osborne MD documented in this [facility] Work Phone: 1(915) 458-340501-06-2025 Instructions* Patient Instructions* Amanda Osborne MD - 03/21/2024 8:20 AM EST She is medically stable for surgery. Follow up here as needed. documented in this [facility] Work Phone: 1(383) 341-180312-19-2024 Evaluation note* Diagnosis Onset Date Resolution Status Admit Date History of reconstruction of both breasts acute March 03, 2 024 2:47pm Deformity of reconstructed breast chronic March 03 024 2:47pm History of reconstruction of both breasts acute March 30 3:17pm Deformity of reconstructed breast chronic March 30 3:17pm History of reconstruction of both breasts acute March 31 8:00pm Deformity of reconstructed breast chronic March 31 8:00pm History of prophylactic mastectomy of both breasts chronic 2024 8:00pm Prophylactic breast removal inactive March 31, 2024 8:00pm History of reconstruction of both breasts acute April 07 10:22am History of reconstruction of both breasts acute April 11 2:59pm History of reconstruction of both breasts acute April 19 4:00pm History of reconstruction of both breasts acute April 26, 2 025 2:51pm Fat necrosis (segmental) of breast acute May 03, 2 025 8:19am Seroma acute May 03, 2024 8:19am Fat necrosis (segmental) of breast acute May 06, 2 025 1:30pm Fat necrosis (segmental) of breast acute May 10, 2 025 3:22pm History of reconstruction of both breasts acute May 10, 2 025 3:22pm Seroma acute May 10, 2024 3:22pm History of prophylactic mastectomy of both breasts chronic 2024 3:22pm Status post implant removal from both breasts chronic May 10, 2024 3:22pm History of reconstruction of both breasts acute June 06, 2024 8:45am 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 female who is here for a routine exam. PCP = Amanda Osborne MD Chief Complaint Patient presents with Gynecologic Exam Patient is here for yearly exam and pap test. Patient has no concerns at this time. LMP: OSCAR. Presents for annual exam. She voices no complaints and is doing well. Denies any bowel or bladder problems. Denies any breast problems. She had a previous hysterectomy. She had bilateral mastectomy with reconstruction in March 2022. She is scheduled for revision of the reconstruction next month. OB History 3 Para 3 Term 3 0 AB 0 Living 3 SAB 0 IAB 0 Ectopic 0 Multiple 0 Live Births 3 Past Medical History: Diagnosis Date Encounter for examination of eyes and vision without abnormal findings Examination of eyes and vision Encounter for full-term uncomplicated delivery Normal vaginal delivery Encounter for gynecological examination [...] 02/06/2020 Tooth extraction TOTAL ABDOMINAL HYSTERECTOMY 2019 Past med hx and past surg hx reviewed and notable for: none Review of Systems: Constitutional: No fever or [...] other systems reviewed and negative for complaint Objective BP 132/76 Ht 1.651 m (5' 5) Wt 83.6 kg (184 lb 3.2 oz) BMI 30.65 kg/m PHYSICAL EXAMINATION: Hotel Front Office Manager present for exam: Ierne Lacy LPN Well-developed, well nourished, in no acute distress, alert and oriented x three, is pleasant and cooperative. HEENT: Clear. Pupils equal, round and reactive to light and accommodation. Extraocular muscles are intact. Oral mucosa pink without exudate. NECK: No lymphadenopathy, no thyromegaly. BREASTS: Not performed since she had bilateral mastectomy with reconstruction. LUNGS: Clear bilaterally. HEART: Regular rate and [...] Well-healed vaginal cuff. Pap smear performed today. Actions performed during this visit include: - Clinical breast exam - Clinical pelvic exam - No orders of the defined types were placed in this encounter. Problem List Items Addressed This Visit None Visit Diagnoses Vaginal Pap smear Relevant Orders THINPREP PAP TEST Encounter for gynecological examination without abnormal finding Relevant Orders THINPREP PAP TEST Provider Impression: 1. Annual Thank you for coming to your annual exam. Your findings during the exam were normal. Please return for your next visit in 1 year. [facility] Work Phone: 1(588) 470-806510-22-2024 History of Present illness Narrative* Judith Osullivan MA - 01/05/2024 8:20 AM EDT Subjective Patient ID: Crystal Lopez is a 48 y.o. female who presents for PRE OP testing. HPI Review of Systems Objective There were no vitals taken for this visit. Physical Exam Assessment/Plan * Amanda Osborne MD - 01/05/2024 8:20 AM EDT Subjective Irene Rojas is a 48 y.o. female who presents for No chief complaint on file.. Here for pre-op evaluation. She is going to be having deep inferior epigastric artery brusher operator flap for breast reconstruction after her mastectomy. She has had multiple previous surgeries, no issues with anesthesia in the past. She has a h/o mastectomy with MRSA complicating healing. She has been otherwise healthy with h/o migraines reasonably well controlled on medication, GERD onomeprazole, seasonal allergies on zyrtec, herpes on valtrex daily. She had CT already, will be having EKG and labs done next week. Objective Visit Vitals BP 110/76 (BP Location: Left arm, Patient Position: Sitting, BP Cuff Size: Adult) Pulse 65 Physical Exam Vitals reviewed. Constitutional: General: She is not in acute distress. Cardiovascular: Rate and Rhythm: Normal rate and regular rhythm. Heart sounds: No murmur heard. Pulmonary: Effort: Pulmonary effort is normal. No respiratory distress. Breath sounds: Normal breath sounds. Skin: General: Skin is warm and dry. Neurological: General: No focal deficit present. Mental Status: She is alert. Mental status is at baseline. Assessment/Plan Problem List Items Addressed This Visit Migraine headache History of prophylactic mastectomy of both breasts - Primary Gastroesophageal reflux disease without esophagitis Herpes Preop examination Amanda Osborne MD documented in [facility] Work Phone: 1(430) 144-913810-22-2024 Instructions* Patient Instructions* Amanda Osborne MD - 01/05/2024 8:20 AM EDT She is medically stable for surgery. documented in [facility] Work Phone: 1(196) 233-896005-21-2024 History of Present illness Narrative* Ab Puri APRN-ÓSCAR - 08/04/2023 9:25 AM EDT 47 y.o. female presents for evaluation of abscess to left axilla that began 10 days ago. Denies anyhistory of abscess. Denies fever, drainage, streaking or any other associated symptom or complaint.Patient did notice inflammation past few days. No OTC meds used for symptom management. No other complaints. Vitals: 08/04/23 0929 BP: 134/74 Pulse: 71 Resp: 18 SpO2: 94% Allergies Allergen Reactions Penicillins Hives Medication Documentation Review Audit Reviewed by Geno Esquivel MA (Toe Sewer) on 08/04/23 at 0927 Medication Order Taking? Sig Documenting Provider Last Dose Status diazePAM (Valium) 5 mg tablet [id number] Yes Take 1 tablet (5 mg) by mouth every 8 hours if needed for muscle spasms. Historical ProviderMD Taking Active fluticasone (Flonase) 50 mcg/actuation nasal spray [id number] Yes USE 2 SPRAY(S) IN EACH NOSTRIL TWICE DAILY Amanda Osborne MD Taking Active ibuprofen 800 mg tablet [id number] Yes Take 1 tablet (800 mg) by mouth every 8 hours if needed for mild pain (1 - 3). Amanda Osborne MD Taking Active levoFLOXacin (Levaquin) 500 mg tablet [id number] Yes Take 1 tablet (500 mg) by mouth once daily. Historical Provider, Unknown Active omeprazole (PriLOSEC) [address] capsule [id number] Yes Take 1 capsule (40 mg) by mouth once daily. Amanda Osborne MD Taking Active SUMAtriptan (Imitrex) 100 mg tablet [id number] Yes Take 1 tablet (100 mg) by mouth 1 time if needed for migraine (TAKE 1 TABLET EVERY 2 HOURS NEEDED FOR MIGRAINE. DO NOT EXCEED 200 MG). Amanda Martinez MD Taking Active valACYclovir (Valtrex) 500 mg tablet [id number] Yes Take 1 tablet (500 mg) by mouth once daily. Amanda Osborne MD Taking Active Past Medical History: Diagnosis Date Encounter for examination of eyes and vision without abnormal findings Examination of eyes and vision Encounter for full-term uncomplicated delivery ([facility]) Normal vaginal delivery Encounter for gynecological examination [...] content normal. Judgment: Judgment normal. Assessment/Plan/MDM Irene Rojas was seen today for abscess. Diagnoses and [...] also oversaw the her drug management by reviewingher medication list, allergy list, as well as [...] Irene's care are: none Ab Puri CNP [facility] [phone] documented in this [facility] Work Phone: 1(209) 542-908302-02-2024 History of Present illness Narrative* Judith Osullivan MA - 04/17/2023 3:20 PM EST Subjective Patient ID: Crystal Lopez is a 47 y.o. female who presents for yearly check up and medication refill. Patient would like to discuss the swelling in the left leg that starts from the ankle up (patient notices it in the ankle first) HPI Review of Systems Objective There were no vitals taken for this visit. Physical Exam Assessment/Plan * Amanda Osborne MD - 04/17/2023 3:20 PM EST Subjective Irene Rojas is a 47 y.o. female who presents [...] tablet Amanda Osborne MD documented in [facility]Bl[facility] Work Phone: 1(216) 458-104902-02-2024 Instructions* Patient Instructions* Amanda Osborne MD - 04/17/2023 3:20 PM EST Will check a doppler of the leg, continue other current medications. Follow up based on results andsymptoms. documented in this encounterBl[facility] Work Phone: 1([phone]) 291-143612-12-2023 History of Present illness Narrative* Zenaida Silva MD - 02/24/2023 8:30 AM EST Irene Lopez is 47 y.o. 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 Patient has history of LGSIL. OSCAR in 2019. Review of Systems: Constitutional: No [...] complaint BP 136/72 Ht 1.651 m (5' 5) Wt 81.3 kg (179 lb 3.2 oz) [...] 6 months for yearly documented in this [facility] Work Phone: 1(930) 662-869611-10-2023 Discharge summary Author Rachel Beard [facility] January 23, 2023 2:29pm Note Date/Time January 23, 2023 2:05pm [facility] Medical Records Department [address] [place] [address] Instructions for Home/Discharge Instructions 01/23/23 1317 MR#: [id number] Acct: [id number] Name: IRENE LOPEZ Rep #:[id number] : 1975 47 From: Rachel gibson BUILDING MAINTENANCE CUSTODIAN BUILDING MAINTENANCE CUSTODIAN-C PCP: Dr. Amanda Osborne MD Statu s:ADM ALEX Discharge Instructions Diet Discharge Diet: No restrictions (encouraged increase protein intake and supplementation for wound healing.) Activity Discharge Activity: May Not Shower Lifting Restrictions: 10-15 lb weight lifting restriction. No repeatative arm movement/lifting. Dressing / Incision Call your doctor if your incision/area has: Continuous Slow Oozing, Sudden Increased Bleeding, Increased Pain/ Swelling, Increased Redness, Foul Smelling Discharge and Swelling at the incision site Call your doctor if you observe: Fever of 101 or Higher, Coldness, Increased Pain, Inability to urinate, Inability to have a bowel movement, Shortness of breath, Chest pain, Calf discomfort and Uncontrolled pain Change Dressing in: leave in place till F/U Drain: Suction Additional Dressing/Incision Instructions:: Keep dressing dry and intact. Change only if needed. Keep track of Britany drainage amount and bring with you to your follow up. Follow Up Care Please Follow Up With: Zenaida Barrett MD When: [facility] will call you Thursday to set up your appointment on Thursday. If you have any questions call [phone] Test Results: Test results from this visit will be discussed in further detail at your follow- up appointment, if applicable. Discharge Plan Admission Admit Date/Time: 01/21/23 16:10 Attending Provider: Zenaida Barrett Primary Care Provider: Amanda Osborne Discharge Orders/Prescriptions Prescriptions: New docusate sodium 100 mg Capsule 100 mg PO DAILY PRN PRN (Reason: constipation) 30 Days Qty: 30 0RF levofloxacin 500 mg tablet 500 mg PO DAILY 14 Days Qty: 14 0RF oxycodone-acetaminophen [Percocet] 5-325 mg tablet 1 tab PO Q6H PRN (Reason: pain (scale score 7-10)) 7 Days Qty: 28 0RF ondansetron 4 mg tablet,disintegrating 4 mg PO Q8H PRN (Reason: nausea and vomiting) 5 Days Qty: 10 0RF Continued diazepam [Valium] 5 mg tablet 5 mg PO BID PRN (Reason: spasm) Qty: 14 0RF ibuprofen 800 mg tablet 800 mg PO Q12H PRN PRN (Reason: Migraine Headache) Hold Instructions: Resume on 10/08/22. Patient Comments: TAKE 1 TABLET BY MOUTH THREE TIMES A DAY NEEDED sumatriptan succinate 100 mg tablet 100 mg PO PRN PRN (Reason: MIGRAINE) Patient Comments: TAKE 1 TABLET FOR MIGRAINE RELIEF. MAY REPEAT 2 HOURS LATER. MAXIMUM 200MG/DAY. valacyclovir 500 mg tablet 500 mg PO DAILY Patient Comments: TAKE 1 TABLET BY MOUTH EVERY DAY omeprazole 40 mg capsule,delayed release(DR/EC) 40 mg PO DAILY Patient Comments: TAKE 1 CAPSULE BY MOUTH EVERY DAY Referrals / Follow Up: Amanda Osborne MD [Primary Care Provider] - Disposition Disposition (needs filled in before D/C Order can be placed): Home, Self Care 01/23/23 4558<Electronically signed by Rachel Beard NP BUILDING MAINTENANCE CUSTODIAN-C>Rachel Beard NP BUILDING MAINTENANCE CUSTODIAN-C CC: Dr. Amanda Osborne MD ~ Signed [facility] Work Phone: [phone]) 319-293911-10-2023 Progress note Author Rachel Beard [facility] January 23, 2023 2:49pm Note Date/Time January 23, 2023 2:36pm [facility] Medical Records Department [address] [place] [address] Progress Note - Surgery 01/23/23 1429 MR#: [id number] Acct: [id number] Name: IRENE LOPEZ Rep #:[id number] : 1975 47 From: Rachel Cabrera BUILDING MAINTENANCE CUSTODIAN BUILDING MAINTENANCE CUSTODIAN-C PCP: Dr. Amanda Osborne MD Statu s:ADM ALEX Location: [place] [id number] Subjective Subjective Postop #2 Patient is complaining of a headache. She states incisional discomfort is manageable. Objective Data Objective Data Vital Signs: Vital Signs Temp Pulse Resp BP Pulse Ox O2 Del Method O2 Flow Rate 98 F 80 16 114/60 93 Room Air 2 01/23/23 08:15 01/23/23 08:15 01/23/23 08:15 01/23/23 08:15 01/23/23 08:15 01/23/23 08:15 01/22/23 01:51 Oxygen Flow Rate (L/min) 2 Oxygen Delivery Method Room Air Weight: 178 lb 9.191 oz Body Mass Index (BMI) 28.8 Intake & Output: Intake and Output for Last 24 Hours 01/21/23 01/22/23 01/23/23 23:59 23:59 23:59 Intake Total 3940 / 3940 3190 / 3190 975.00 / 975.00 Output Total 1974 1665 / 1665 116 / 116 Balance 1964 / 1964 1525 / 1525 859.00 / 859.00 Left Britany drain 48 ml Right Britany drain 75 ml Lab / Micro Data Attestation: I reviewed the patient's lab results. 01/23/23 04:35 01/23/23 04:35 Labs: Laboratory Results - last 24 hr 01/22/23 19:22: Vancomycin Trough 8.0 01/23/23 04:35: WBC 9.3, RBC 3.68 L, Hgb 11.5 L, Hct 37.0, MCV 100.5 H, MCH 31.3, MCHC 31.1 L, RDW Std Deviation 47.8 H, RDW Coeff of Khushi 12.9, Plt Count 189, MPV 11.3, Sodium 141, Potassium 4.1, Chloride 106, Carbon Dioxide 30.0, Anion Gap 5, BUN 15, Creatinine 0.75, Estim Creat Clear Calc 84.94, Est GFR (MDRD) Af Amer 105, Est GFR (MDRD) Non-Af 87, BUN/Creatinine Ratio 20.0, [id number] H, Calcium 8.4 L Micro: Microbiology 01/21/23 11:17 Tissue - Breast Gram Stain - Final 01/21/23 11:17 Tissue - Breast Wound Culture - Preliminary No growth-Final to follow 01/21/23 11:17 Tissue - Breast Anaerobic Culture - Preliminary No growth in 48 hours. 01/21/23 11:21 Tissue - Breast Gram Stain - Final 01/21/23 11:21 Tissue - Breast Wound Culture - Preliminary No growth-Final to follow 01/21/23 11:21 Tissue - Breast Anaerobic Culture - Preliminary No growth in 48 hours. Physical Exam Const alert, oriented x3 and no apparent distress Constitutional Narrative: Patient sitting up in chair. General Appearance: cooperative HEENT normocephalic Head and Scalp: atraumatic Eyes General Eye: normal appearance of both eyes Resp normal respiratory effort and normal air movement Effort and Inspection: able to speak in complete sentences Cardio regular rate GI soft to palpation and non-tender Back/Spine normal ROM Extremity normal capillary refill Skin Skin Narrative: Dressing dry and intact. Britany drains draining serosanguineous drainage. Neuro oriented x3 Psych mental status grossly normal, thought process normal and cooperative Assessment & Plan Assessment/Plan (1) Status post bilateral mastectomy: (2) Status post bilateral breast reconstruction: (3) Disproportion of reconstructed breast: (4) Acquired absence of bilateral breasts and nipples: (5) Genetic 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: (6) History of reconstruction of both breasts: (7) History of bilateral removal of breast implants: (8) Resistance to other single specified antibiotic: (9) Infection of breast implant: PLAN: Plan She states her incisional pain is controlled. She is complaining of a headache/migraine. Dressing dry and intact. ANAI wrap for compression. Britany drains have a small amount of serosanguineous drainage. She is receiving IV Vancomycin. Upon discharge will send her home on Levaquin until her drains are removed. Hgb 11.5, is stable. Prealbumin 20.8. Encouraged increase protein intake with supplementation to help with wound healing. She is voiding without difficulty since the White catheter was removed. She states she has had some nausea, and has not had a BM yet. Will discharge her home with Percocet (28 tabs) for pain. PDMP reviewed. Zofran prn for nausea. Colace prn for constipation. She will follow up on Thursday in our office for follow up. 01/23/23 1449 <Electronically signed by Rachel Beard BUILDING MAINTENANCE CUSTODIAN BUILDING MAINTENANCE CUSTODIAN-C> Cosigner Signature (if applicable): CC: ~ Signed [facility] Work Phone: 1(638) 817-303911-10-2023 Progress note Author Rachel Kisha [facility] January 22, 2023 10:24pm Note Date/Time January 22, 2023 1 0:06pm [facility] Medical Records Department [address] [place] [address] Progress Note - Surgery 01/22/23 1220 MR#: [id number] Acct: [id number] Name: IRENE LOPEZ Rep #:[id number] : 1975 47 From: Rachel gibson BUILDING MAINTENANCE CUSTODIAN BUILDING MAINTENANCE CUSTODIAN-C PCP: Dr. Amanda Osborne MD Statu s:ADM ALEX Location: [place] [address] Subjective Subjective Postop #1 Patient sitting in chair. She states her pain is being controlled. Objective Data Objective Data Vital Signs: Vital Signs Temp Pulse Resp BP Pulse Ox O2 Del Method O2 Flow Rate 98.7 F 87 16 126/67 H 94 Room Air 2 01/22/23 20:16 01/22/23 20:16 01/22/23 20:16 01/22/23 20:16 01/22/23 20:16 01/22/23 20:20 01/22/23 01:51 Oxygen Flow Rate (L/min) 2 Oxygen Delivery Method Room Air Weight: 178 lb 9.191 oz Body Mass Index (BMI) 28.8 Intake & Output: Intake and Output for Last 24 Hours 01/20/23 01/21/23 01/22/23 23:59 23:59 23:59 Intake Total 3940 / 3940 1315 / 1315 Output Total 1974 1665 / 1665 Balance 1964 / 1964 -350 / -350 Lab / Micro Data Attestation: I reviewed the patient's lab results. 01/22/23 07:10 01/22/23 07:10 Labs: Laboratory Results - last 24 hr 01/22/23 07:10: WBC 11.6 H, RBC 3.73 L, Hgb 11.7 L, Hct 36.9 L, MCV 98.9, MCH 31.4, MCHC 31.7 L, RDW Std Deviation 46.1 H, RDW Coeff of Khushi 12.9, Plt Count 193, MPV 11.2, Sodium 139, Potassium 3.9, Chloride 105, Carbon Dioxide 28.0, Anion Gap 6, BUN 14, Creatinine 0.77, Estim Creat Clear Calc 82.74, Est GFR (MDRD) Af Amer 102, Est GFR (MDRD) Non-Af 85, BUN/Creatinine Ratio 18.2, [id number] H, Calcium 8.7, Prealbumin 20.8 01/22/23 19:22: Vancomycin Trough 8.0 Micro: Microbiology 01/21/23 11:21 Tissue - Breast Gram Stain - Final 01/21/23 11:21 Tissue - Breast Wound Culture - Preliminary No growth-Final to follow 01/21/23 11:17 Tissue - Breast Gram Stain - Final 01/21/23 11:17 Tissue - Breast Wound Culture - Preliminary No growth-Final to follow Physical Exam Const alert, oriented x3 and no apparent distress Constitutional Narrative: Patient sitting up in chair. General Appearance: cooperative HEENT normocephalic Head and Scalp: atraumatic Eyes General Eye: normal appearance of both eyes Resp normal respiratory effort and normal air movement Effort and Inspection: able to speak in complete sentences Cardio regular rate GI soft to palpation and non-tender Back/Spine normal ROM Extremity normal capillary refill Skin Skin Narrative: Operative dressing removed. Incisions dry and intact. Breasts are soft and symmetrical. Good breast contour. Nipples viable. Britany drains with minimal drainage present. Neuro oriented x3 Psych mental status grossly normal, thought process normal and cooperative Assessment & Plan Assessment/Plan (1) Status post bilateral mastectomy: (2) Status post bilateral breast reconstruction: (3) Disproportion of reconstructed breast: (4) Acquired absence of bilateral breasts and nipples: (5) Genetic 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: (6) History of reconstruction of both breasts: (7) History of bilateral removal of breast implants: (8) Resistance to other single specified antibiotic: (9) Infection of breast implant: PLAN: Plan Patient is sitting up in chair. She states her pain has been fairly controlled. Operative dressing removed. Incisions dry and intact. Breasts are soft and symmetrical. Good breast contour. Nipples viable. No redness, minimal bruising. Britany drains with minimal drainage present. Placed dry dressing over incisions and applied double 6 inch anai wrap for compression. Britany drains have had minimal drainage present. She is receiving IV Vancomycin. Pharmacy consulted to dose. She has a history of infected implant that needed to be removed. Will monitor her closely. Hgb 11.7. Will recheck in the morning due to her history of anemia. Prealbumin 20.8. Encouraged increase protein intake with supplementation to help with wound healing. Remove her White today. Encourage her to ambulate and to use incentive spirometer. Will plan on her being discharged tomorrow. 01/22/232223 <Electronically signed by Rachel Beard NP BUILDING MAINTENANCE CUSTODIAN-C> Cosigner Signature (if applicable): CC: ~ Signed [facility] Work Phone: 1(775) 849-362111-08-2023 Consult note Author Meredith Brandt [facility] January 21, 2023 7:59pm Note Date/Time January 21, 2023 7 :59pm [facility] Medical Records Department [address] [place] [address] Pharmacokinetic/Renal -Consult 01/21/231957 MR#: [id number] Acct: [id number] Name: IRENE LOPEZ Rep #:[id number] : 1975 47 From: Meredith Brandt PCP: Dr. Amanda Osborne MD Statu s:ADM ALEX Y Location: [place] [address] Consult Antibiotic Management Pharmacy has been consulted to manage selected antiobiotic: Vancomycin Type of Intervention Type of Consult: New start Suspected Infection Suspected Infection: Other Labs Labs: Sodium 137 mmol/L (136-145) 01/21/23 18:45 Potassium 4.7 mmol/L (3.5-5.1) 01/21/23 18:45 Chloride 105 mmol/L (98-107) 01/21/23 18:45 Carbon Dioxide 25.0 mmol/L (21.0-32.0) 01/21/23 18:45 Anion Gap 7 (5-15) 01/21/23 18:45 BUN 12 mg/dL (7-18) 01/21/23 18:45 Creatinine 1.00 mg/dL (0.55-1.02) 01/21/23 18:45 Est GFR (MDRD) Af Amer 76 mL/min (>60) 01/21/23 18:45 Est GFR (MDRD) Non-Af 63 mL/min (>60) 01/21/23 18:45 BUN/Creatinine Ratio 12.0 RATIO (10-20) 01/21/23 18:45 Glucose 217 mg/dL (74-106) H 01/21/23 18:45 Goal Trough Goal Trough: 10-15 mcg/mL Pharmacy Plan for Drug Dosing Pharmacy Plan for Drug Dosing: NEW START IV VANCOMYCIN Consulting Physician: Dr. Barrett Indication: post-op Goal Trough: 10-15 SrCr: 1 CrCl: 64 mL/min Comments: Patient had pre-op dose of 1250mg IV x1 on 01/21/23 @0646 Vancomycin Dose: 750mg IV Q12hr to start 01/21/23 @2000 (Note: second dose delayed d/t waiting on SCr labs to result to determine frequency) Pending Level: 01/22/23 @1930, prior to 4th total dose of vancomycin per protocol Pharmacy Service will continue to monitor and adjust dosing as required. 01/21/231958 <Electronically signed by Meredith Brandt > Date _ Meredith Brandt Cosigner Signature (if applicable): Date CC: ~ Signed [facility] Work Phone: 1(186) 589-998407-23-2023 Discharge summary Author Zenaida Barrett [facility] October 05, 2022 10:48am Note Date/Time October 05, 2022 7:58 am [facility] Medical Records Department [address] [place] [address] Instructions for Home/Discharge Instructions 10/05/22 0757 MR#: [id number] Acct: [id number] Name: IRENE LOPEZ Rep #:[id number] : 1975 46 From: Zenaida Greer PCP: Dr. Amanda Osborne MD Statu s:ADM ALEX Discharge Instructions Diet Discharge Diet: No restrictions and - (encourage nutritional supplementation with protein to help the healing process) Activity Discharge Activity: May Not Drive, May Not Shower (until the drains are removed)and - (keep head elevated. no heavy lifting.) May shower in (days): 14 May resume sexual activity in: 10-14 days Weight Bearing Status: Weight bearing as tolerated Lifting Restrictions: 20 lbs. Keep extremity elevated above heart level: - (elevate head) Dressing / Incision Call your doctor if your incision/area has: Continuous Slow Oozing, Sudden Increased Bleeding, Increased Pain/ Swelling, Increased Redness, Foul Smelling Discharge and Swelling at the incision site Call your doctor if you observe: Fever of 101 or Higher, Coldness, Increased Pain, Shortness of breath, Chest pain, Calf discomfort and Uncontrolled pain Suture Line Care: - (dry dressing every day or every other day) Change Dressing in: 1 day Cleanse incision/area with: - (may get incisions wet in the shower after the drains are removed.) Drain: Suction (britany drain x2 to bulb suction. empty and record output daily.) Follow Up Care Please Follow Up With: Zenaida Barrett MD When: one week ( or Thursday). call [phone] for appt. Test Results: Test results from this visit will be discussed in further detail at your follow- up appointment, if applicable. Discharge Plan Admission Admit Date/Time: 10/03/22 15:47 Primary Reason for Your Visit: bilateral breast reconstruction with saline tissue expanders Attending Provider: Zenaida Barrett Primary Care Provider: Amanda Osborne Discharge Orders/Prescriptions Prescriptions: New linezolid 600 mg tablet 600 mg PO Q12H 14 Days Qty: 28 0RF L.acidoph,saliva-B.bif-S.therm [Acidophilus Probiotic Blend] 175 mg capsule 1 cap PO DAILY Qty: 30 0RF oxycodone-acetaminophen [Percocet] 5-325 mg tablet 1 tab PO Q6H PRN (Reason: pain (scale score 7-10)) 7 Days Qty: 28 0RF Rx Instructions: 28 tabs (twenty-eight) docusate sodium [Colace] 100 mg capsule 100 mg PO BID Qty: 60 0RF diazepam [Valium] 5 mg tablet 5 mg PO 4X/DAY PRN PRN (Reason: spasms) Qty: 28 0RF Rx Instructions: 28 tabs (twenty-eight) Continued sumatriptan succinate 100 mg tablet 100 mg PO PRN PRN (Reason: MIGRAINE) Patient Comments: TAKE 1 TABLET FOR MIGRAINE RELIEF. MAY REPEAT 2 HOURS LATER. MAXIMUM 200MG/DAY. valacyclovir 500 mg tablet 500 mg PO DAILY Patient Comments: TAKE 1 TABLET BY MOUTH EVERY DAY omeprazole 40 mg capsule,delayed release(DR/EC) 40 mg PO DAILY Patient Comments: TAKE 1 CAPSULE BY MOUTH EVERY DAY fluconazole [Diflucan] 200 mg tablet 400 mg PO DAILY 28 Days Qty: 56 1RF Held ibuprofen 800 mg tablet 800 mg PO Q12H PRN PRN (Reason: Migraine Headache) Hold Instructions: Resume on 10/08/22. Patient Comments: TAKE 1 TABLET BY MOUTH THREE TIMES A DAY NEEDED Referrals / Follow Up: Amanda Osborne MD [Primary Care Provider] - Disposition Disposition (needs filled in before D/C Order can be placed): Home, Self Care 10/05/22 1048<Electronically signed by Zenaida Barrett MD>Zenaida Barrett MD CC: Dr. Amanda Osborne MD ~ Signed [facility] Work Phone: 1(532) 351-850907-23-2023 Consult note Author Zenaida Barrett [facility] October 05, 2022 7:35am Note Date/Time October 03, 2022 5:22 pm [facility] Medical Records Department [address] [place] [address] [place] [address] Pharmacokinetic/Renal -Consult 10/03/221720 MR#: [id number] Acct: [id number] Name: IRENE LOPEZ Rep #:[id number] : 1975 46 From: Shira Grissom PCP: Dr. Amanda Osborne MD Statu s:ADM ALEX Y Location: [place] [address] Consult Antibiotic Management Pharmacy has been consulted to manage selected antiobiotic: Vancomycin Type of Intervention Type of Consult: New start Suspected Infection Suspected Infection: Skin/Soft tissue Labs Labs: Creatinine 0.78 mg/dL (0.55-1.02) 10/03/22 05:58 Est GFR (MDRD) Af Amer 101 mL/min (>60) 10/03/22 05:58 Est GFR (MDRD) Non-Af 84 mL/min (>60) 10/03/22 05:58 Pharmacy Plan for Drug Dosing Pharmacy Plan for Drug Dosing: NEW START IV VANCOMYCIN Consulting Physician: ARNOLD Indication: SSTI/POST-OP Goal Trough: 10-15 MG/DL SrCr: 0.78 MG/DL CrCl: 82.6 ML/MIN Comments: RECEIVED PRE-OP DOSE OF 1250MG 10/03 @ 0627 Vancomycin Dose: WILL START 1000MG Q12 @ 1800 AND GET A TROUGH PRIOR TO 4TH TOTAL DOSE Pending Level: 10/04/22 @ 1730 Pharmacy Service will continue to monitor and adjust dosing as required. 10/03/221721 <Electronically signed by Shira Grissom> Date _ Shira Grissom 10/05/22 0735 <Electronically signed by Zenaida Barrett MD> Cosigner Signature (if applicable): Date Zenaida Barrett MD CC: ~ Signed [facility] Work Phone: 1(282) 548-685607-22-2023 Consult note Author Marlon Hightower [facility] October 04, 2022 6:27pm Note Date/Time October 04, 2022 6:27 pm [facility] Medical Records Department [address] [place] [address] Pharmacokinetic/Renal -Consult 10/04/221822 MR#: [id number] Acct: [id number] Name: IRENE LOPEZ Rep #:[id number] : 1975 46 From: Marlon Hightower PCP: Dr. Amanda Osborne MD Statu s:ADM ALEX Y Location: [place] [address] Consult Antibiotic Management Pharmacy has been consulted to manage selected antiobiotic: Vancomycin Type of Intervention Type of Consult: Follow-up Suspected Infection Suspected Infection: Skin/Soft tissue Prior Doses of Antibiotics Prior Doses of Antibiotics Received/Current Regimen: Currently on 1000mg iv q12h Labs Labs: Sodium 139 mmol/L (136-145) 10/04/22 05:28 Potassium 5.1 mmol/L (3.5-5.1) 10/04/22 05:28 Chloride 107 mmol/L (98-107) 10/04/22 05:28 Carbon Dioxide 27.0 mmol/L (21.0-32.0) 10/04/22 05:28 Anion Gap 5 (5-15) 10/04/22 05:28 BUN 15 mg/dL (7-18) 10/04/22 05:28 Creatinine 0.90 mg/dL (0.55-1.02) 10/04/22 05:28 Est GFR (MDRD) Af Amer 86 mL/min (>60) 10/04/22 05:28 Est GFR (MDRD) Non-Af 71 mL/min (>60) 10/04/22 05:28 BUN/Creatinine Ratio 16.6 RATIO (10-20) 10/04/22 05:28 Glucose 142 mg/dL (74-106) H 10/04/22 05:28 Vancomycin Trough 9.6 ug/mL (5.0-15.0) 10/04/22 17:07 Dosing Weight Weight used for dosin.3 kg Estimated Creatinine Clearance Estimated Creatinine Clearance: 72 ml/min Pharmacy Plan for Drug Dosing Pharmacy Plan for Drug Dosing: Trough reported as 9.6 (12 hrs post dose) with goal of 10-15mcg/ml. Order will be changed to 1250mg iv q12h starting with next dose. New trough ordered for before 4th dose of new regimen. Pharmacy Service will continue to monitor and adjust dosing as required. 10/04/221826 <Electronically signed by Marlon Hightower> Date _ Marlon Hightower Cosigner Signature (if applicable): Date CC: ~ Signed [facility] Work Phone: 1(336) 302-354503-21-2023 Progress note Author Rachel Beard [facility] June 03, 2022 9:23am Note Date/Time May 19, 2022 11:2 4am [facility] [address] [place] [address] Progress Note - Wound Care HBO 05/19/22 1124 MR#: [id number] Acct: [id number] Name: IRENE LOPEZ Rep #:[id number] : 1975 46 From: Rachel Cabrera SRIDEVI LAUREANO-C PCP: Dr. Amanda Osborne MD Statu s:REG RCR Location: ADDENDUM by BUILDING MAINTENANCE CUSTODIANKevinC Rachel Beard on 06/03/22 at 0923 Addendum Addendum: [id number] Modifier 24 06/03/22 0923<Electronically signed by Rachel Beard BUILDING MAINTENANCE CUSTODIAN IVYC> Cosigner Signature (if applicable): cc: ~* Signed History of Present Illness Date of Service: 05/19/22 Chief Complaint: Compromised bilateral nipple skin grafts after mastectomy with immediate reconstruction and placement of free nipple graft. History of Wound: 46 year old female who had a recent surgery on 04/11/22 where she underwent Prophylactic mastectomy right breast and Immediate right breast reconstruction with placement prepectoral cohesive gel implant (700 ml) and placement FlexHD acellular dermal matrix graft (23 x 26 cm) and mastopexy and Right nipple reconstruction with placement of free nipple graft and Prophylacticmastectomy left breast and Immediate left breast reconstruction with placement prepectoral cohesive gel implant (700 ml) and placement FlexHD acellular dermal matrix graft (23 x 26 cm) and mastopexy and Left nipple reconstruction with placement of free nipple graft. She was discharged from the hospital on 04/14/22. Pathology of the right breast showed involutional change with mild non- proliferative fibrocystic change. Left breast showed involutional change withmild non-proliferative fibrocystic change and focal benign microcalcifications. She has developed some compromise of the nipple grafts, the right being worse than the left. Nipples show good adherence but the color has darkened. Right nipple with 60 % take and the left nipple with 80% take, both with good adherence and some vascular ingrowth. Her incisions are dry and intact. She would benefit from having hyperbaric oxygen therapy to help salvage her nipple grafts. She has been approved for 20 treatments. She now has bilateral tympanostomy tubes placed. Progress of Wound: Today is the 2nd treatment of hyperbaric oxygen therapy.? The patient is scheduled for 20 treatments total. Tolerance of hyperbaric oxygen therapy: Hyperbaric oxygen therapy was administered as per the facility's protocol.? Hyperbaric oxygen therapy was administered at 2.0 SHARIF in 100% oxygen for 90 minutes without air breaks.? The patient tolerated hyperbaric oxygen therapy well, without complications or complaints. Upon emergence of the hyperbaric chamber, the patient's vital signs remained stable.? She was discharged in good condition. Objective Data Objective Data Vital Signs: Vital Signs Temp Pulse Resp BP 96.7 F L 71 18 118/65 05/19/22 09:45 05/19/22 09:45 05/19/22 09:45 05/19/22 09:45 Exam Physical Exam Const alert, oriented x3 and no apparent distress General Appearance: cooperative HEENT normocephalic HEENT Narrative: Bilateral TM clear with bilateral tympanostomy tubes in place. No erythema or bleeding. Eyes PERRL Resp normal respiratory effort and clear to auscultation bilaterally Effort and Inspection: able to speak in complete sentences Cardio regular rate and regular rhythm Psych affect normal Speech: normal speech Nursing Assessment and Debridement Post-Debridement Measurements and Additional Note: Post-Debridement Measurements/Treatment WC - Nurse 1 - General Ulcer Assessment Start: 05/16/22 12:18 Freq: Status: Active Protocol: HERNANDEZ Activity Type Activity Date Activity User E-sign Co-sign Detail Recorded Client Recorded Date Recorded By Document 05/19/22 08:38 DL [id number] 05/19/22 08:44 DL 05/19/22 08:38 WC - Today's Visit Information Type of service Follow-up Visit (Physician/TESTS SUPERINTENDENT ) Arrival Mode Ambulatory Transfer Assistance None Patient Identification Verified (Name & Yes ) Patient Requires Transmission-Based No Precautions Safety Precautions NA Vital Signs Temperature (97.8 F-99.1 F) 96.7 F L Temperature Source Temporal Pulse Rate (60-100) 71 Pulse Location Monitor Respiratory Rate (12-18) 18 Respiratory rate source Observation Blood Pressure (90/60-120/80) 118/65 Blood Pressure Mean (mm Hg) 82 Source Monitor Position Sitting Blood Pressure Location Left Arm History Since Last Visit- (Skip if this is Patient's initial visit) Have you changed medications since your No last visit? Any new allergies or adverse reactions No Had a fall/change in ADL's that may No increase risk of falls Signs or symptoms of abuse and/or No neglect since last visit Have you been in the hospital since your No last visit? Has dressing in place as prescribed Yes Has compression in place as prescribed N/A Has offloadiing in place as prescribed N/A Experienced any changes in pain level or No management Left Footwear Regular Shoe Right Footwear Regular Shoe Pain Scale: 0-10 Numeric Is Patient Pain Free? Yes - Nurse 1 - General Ulcer Measurement Start: 05/16/22 12:18 Freq: Status: Active Protocol: Activity Type Activity Date Activity User E-sign Co-sign Detail Recorded Client Recorded Date Recorded By Document 05/19/22 08:38 DL [id number] 05/19/22 08:44 DL 05/19/22 08:38 Wound Center Nurse 1 #2 L BREAST -Current Size (cm) - Length 9 -Current Size (cm) - Width 2 -Current Size (cm) - Depth 0.1 -Total Square Cm 18 -Exudate Amt Small -Exudate Type Serosanguineous -Wound Margin Distinct, Outline Attached -Granulation Amt Medium (34-66%) -Granulation Quality [place] -Slough/Fibrin Yes -Necrosis Amt Large (67-100%) -Necrotic Tissue Type Eschar -Texture (Tarah-wound Skin Appearance) Assessed -Moisture (Tarah-wound Skin Appearance) Assessed -Color (Tarah-wound Skin Appearance) Assessed -Temperature (Tarah-wound Skin No Abnormality Appearance) (Pt Warm) -Tenderness on Palpation (Tarah-wound Yes Skin Appearance) -Ulcer Cleansing Rinsed/ Irrigated with Saline -Foul Odor after Cleansing No -Anesthetic Used 4% Lidocaine Solution #1 R BREAST -Current Size (cm) - Length 10.8 -Current Size (cm) - Width 4.6 -Current Size (cm) - Depth 0.2 -Total Square Cm 49.68 -Exudate Amt Medium -Exudate Type Serosanguineous -Wound Margin Distinct, Outline Attached -Granulation Amt Small (1-33%) -Necrosis Amt Large (67-100%) -Necrotic Tissue Type Eschar -Texture (Tarah-wound Skin Appearance) Assessed -Moisture (Tarah-wound Skin Appearance) Assessed -Color (Tarah-wound Skin Appearance) Assessed -Temperature (Tarah-wound Skin No Abnormality Appearance) (Pt Warm) -Tenderness on Palpation (Tarah-wound Yes Skin Appearance) -Ulcer Cleansing Rinsed/ Irrigated with Saline -Anesthetic Used 4% Lidocaine Solution Charges/Coding Wound Center CF Procedures HBO Supervision: [id number] Hyperbaric Oxygen; supervision (modifier 25) Assessment/Plan Assessment/Plan (1) Other complications of skin graft (allograft) (autograft): CODE(S): T86.828 - Other complications of skin graft (allograft) (autograft) (2) Status post bilateral mastectomy: CODE(S): Z90.13 - Acquired absence of bilateral breasts and nipples (3) Status post bilateral breast reconstruction: CODE(S): Z98.890 - Other specified postprocedural states (4) History of bilateral breast implants: CODE(S): Z98.82 - Breast implant status (5) Prophylactic breast removal: CODE(S): Z40.01 - Encounter for prophylactic removal of breast (6) Acquired absence of bilateral breasts and nipples: CODE(S): Z90.13 - Acquired absence of bilateral breasts and nipples (7) Genetic 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: CODE(S): Z15.01 - 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: CODE(S): Z15.89 - Genetic susceptibility to other disease; Z15.01 - Genetic 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; Z15.09 - Genetic susceptibility to other malignant neoplasm (9) Cancer phobia: CODE(S): F40.298 - Other specified phobia (10) Family history of breast cancer: CODE(S): Z80.3 - Family history of malignant neoplasm of breast (11) Disproportion of reconstructed breast: CODE(S): N65.1 - Disproportion of reconstructed breast (12) Acute postoperative anemia due to expected blood loss: CODE(S): D62 - Acute posthemorrhagic anemia (13) Former smoker: CODE(S): Z87.891 - Personal history of nicotine dependence PLAN: Plan The patient appears to be tolerating hyperbaric oxygen therapy well, which will be continued as per her medical plan. 05/19/22 1322 <Electronically signed by Rachel Beard NP BUILDING MAINTENANCE CUSTODIAN-C> Cosigner Signature (if applicable): CC: ~ Signed [facility] Work Phone: 1(677) 915-829003-20-[address] Barrett [facility] June 02, 2022 3:52pm Note Date/Time June 02, 2022 2:1 9pm [facility] Medical Records Department [address] [place] [address] Instructions for Home/Discharge Instructions 06/02/22 1418 MR#: [id number] Acct: [id number] Name: IRENE LOPEZ Rep #:[id number] : 1975 46 From: Zenaida Greer PCP: Dr. Amanda Osborne MD Statu s:ADM ALEX Discharge Instructions Diet Discharge Diet: No restrictions and - (encourage nutritional supplementation with protein to help the healing process.) Activity Discharge Activity: May Not Shower (until the drains are removed.) May shower in (days): 14 ((tentative) she may shower after the drains are removed.) May resume sexual activity in: 10-14 days (after the drains are removed. Wear anai compression during sexual activity.) Weight Bearing Status: Weight bearing as tolerated Keep extremity elevated above heart level: - (elevate head) Dressing / Incision Call your doctor if your incision/area has: Continuous Slow Oozing, Sudden Increased Bleeding, Increased Pain/ Swelling, Increased Redness, Foul Smelling Discharge and Swelling at the incision site Call your doctor if you observe: Fever of 101 or Higher, Coldness, Increased Pain, Shortness of breath, Chest pain, Calf discomfort and Uncontrolled pain Suture Line Care: - (apply antibiotic ointment to suture lines followed by dry gauze every 1-2 days.) Change Dressing in: 2 days (may change daily based on drainage on the gauze dressing) Remove Dressing in: 2 days (dressing changes to the bilateral breasts along withantibiotic ointment every day or every other day based on the amount of drainageon the incisions.) Cleanse incision/area with: Keep Dressing Clean & Dry (may wash around the incisions with soap and water.) and - (once operative drains are removed, patient may shower.) Drain: Suction (Britany drains x2 (one in each breast) to bulb suction. Empty andrecord output daily.) Follow Up Care Please Follow Up With: Zenaida Barrett MD When: one week. call [phone] for appt Test Results: Test results from this visit will be discussed in further detail at your follow- up appointment, if applicable. Discharge Plan Admission Admit Date/Time: 05/30/22 15:40 Primary Reason for Your Visit: revision breast reconstruction with removal exposed infected implants Attending Provider: Zenaida Barrett Primary Care Provider: Amanda Osborne Discharge Orders/Prescriptions Prescriptions: New erythromycin ethylsuccinate [E.E.S. 400] 400 mg tablet 400 mg PO Q6H 21 Days Qty: 84 1RF L.acidoph,saliva-B.bif-S.therm [Acidophilus Probiotic Blend] 175 mg capsule 1 cap PO DAILY Qty: 30 1RF oxycodone-acetaminophen [Percocet] 5-325 mg tablet 1 tab PO Q4H PRN (Reason: pain (scale score 7-10)) 7 Days Qty: 40 0RF Rx Instructions: 40 tabs (forty) diazepam [Valium] 5 mg tablet 5 mg PO TID PRN (Reason: spasms) 10 Days Qty: 30 0RF Rx Instructions: 30 tabs (thirty) Continued sumatriptan succinate 100 mg tablet 100 mg PO PRN PRN (Reason: MIGRAINE) Label Comments: TAKE 1 TABLET FOR MIGRAINE RELIEF. MAY REPEAT 2 HOURS LATER. MAXIMUM 200MG/DAY. valacyclovir 500 mg tablet 500 mg PO DAILY Label Comments: TAKE 1 TABLET BY MOUTH EVERY DAY omeprazole 40 mg capsule,delayed release(DR/EC) 40 mg PO DAILY Label Comments: TAKE 1 CAPSULE BY MOUTH EVERY DAY levofloxacin 500 mg tablet 500 mg PO DAILY 20 Days Qty: 21 1RF Held ibuprofen 800 mg tablet 800 mg PO Q12H PRN PRN (Reason: Migraine Headache) Hold Instructions: Resume on 06/06/22. Label Comments: TAKE 1 TABLET BY MOUTH THREE TIMES A DAY NEEDED Discontinued doxycycline hyclate 100 mg capsule 100 mg PO BID 14 Days Qty: 28 1RF Referrals / Follow Up: Zenaida Barrett MD [Med Staff - Active Staff] - (followup one week) Amanda Osborne MD [Primary Care Provider] - Disposition Disposition (needs filled in before D/C Order can be placed): Home, Self Care 06/02/22 1552<Electronically signed by Zenaida Barrett MD>Zenaida Barrett MD CC: Dr. Amanda Osborne MD ~ Signed [facility] Work Phone: 1(427) 656-118703-18-2023 Consult note Author Giancarlo Omalley [facility] May 31, 2022 8:40pm Note Date/Time May 31, 2022 8:4 0pm [facility] Medical Records Department [address] [place] [address] Pharmacokinetic/Renal -Consult 05/31/222037 MR#: [id number] Acct: [id number] Name: IRENE LOPEZ Rep #:[id number] : 1975 46 From: Giancarlo Omalley PCP: Dr. Amanda Osborne MD Statu s:ADM ALEX Y Location: [place] [address] Consult Pharmacy has been consulted to manage selected antiobiotic: Vancomycin Type of Consult: Follow-up Prior Doses of Antibiotics Received/Current Regimen: Medications Vancomycin HCl (Vancomycin) 1,000 mg in 200 mls @ 200 mls/hr IV Q12H DINORAH Last Admin: 05/31/22 20:35 Dose: 200 mls/hr Labs: Sodium 142 mmol/L (136-145) 05/31/22 07:00 Potassium 4.3 mmol/L (3.5-5.1) 05/31/22 07:00 Chloride 107 mmol/L (98-107) 05/31/22 07:00 Carbon Dioxide 28.0 mmol/L (21.0-32.0) 05/31/22 07:00 Anion Gap 7 (5-15) 05/31/22 07:00 BUN 13 mg/dL (7-18) 05/31/22 07:00 Creatinine 0.69 mg/dL (0.55-1.02) 05/31/22 07:00 Est GFR (MDRD) Af Amer 117 mL/min (>60) 05/31/22 07:00 Est GFR (MDRD) Non-Af 97 mL/min (>60) 05/31/22 07:00 BUN/Creatinine Ratio 18.9 RATIO (10-20) 05/31/22 07:00 Glucose 113 mg/dL (74-106) H 05/31/22 07:00 Vancomycin Trough 9.8 ug/mL (5.0-15.0) 05/31/22 19:30 Microbiology: Microbiology 05/30/22 11:45 Tissue - Breast Gram Stain - Final 05/30/22 11:45 Tissue - Breast Wound Culture - Preliminary Staphylococcus species 05/30/22 10:57 Tissue - Breast Gram Stain - Final 05/30/22 10:57 Tissue - Breast Wound Culture - Preliminary GPC Poss Enterococcus sp Weight used for dosin.7 kg Estimated Creatinine Clearance: 93 Goal Trough: 10-15 mcg/mL Pharmacy Plan for Drug Dosing: Vancomycin trough level of 9.8 was just slightly below the target range of 10- 15. Will continue dosing at 1000mg q12h, and re-draw a trough in two days. Pharmacy Service will continue to monitor and adjust dosing as required. Follow-Up Labs: Trough Vancomycin Labs to be done on [date and time ordered]: 06/02/22 @1930 05/31/222039 <Electronically signed by Giancarlo vogt > Date _ Giancarlo Smiley Signature (if applicable): Date CC: ~ Signed [facility] Work Phone: [phone]) 587-327903-17-2023 History and physical note Author Dr. Barrett [facility] May 30, 2022 8:26am Note Date/Time May 30, 2022 8:1 1am [facility] Medical Records Department [address] [place] [address] History & Physical Exam 05/30/22 0810 MR#: [id number] Acct: [id number] Name: IRENE LOPEZ Rep #:[id number] : 1975 46 From: Zenaida Greer PCP: Dr. Amanda Osborne MD Statu s:[facility] [place] Location: [place] [address] History and Physical Date of Admission: 05/30/22 HISTORY OF PRESENT ILLNESS Patient had surgery on 04/11/22 where she underwent prophylactic mastectomy rightbreast and immediate right breast reconstruction with placement prepectoral cohesive gel implant (700 ml) and placement FlexHD acellular dermal matrix graft(23 x 26 cm) and mastopexy and right nipple reconstruction with placement of free nipple graft and prophylactic mastectomy left breast and immediate left breast reconstruction with placement prepectoral cohesive gel implant (700 ml) and placement FlexHD acellular dermal matrix graft (23 x 26 cm) and mastopexy and left nipple reconstruction with placement of free nipple graft.? She was discharged from the hospital on 04/14/22. Initially the incisions were healing satisfactory. There was some nipple graft compromise and she was started on HBOtreatments. About a month postop she started developing some incisional breakdown at the Tzone area on the right. Silver dressing changes were started. A wound culture was obtained on 05/12/22. It was positive for MRSE. She was started on Levaquin and Doxycycline was added. The Tzone wound on the right extended up toward the nipple. Initially the implant was not exposed, but eventually became exposed on the right. The left breast Tzone is superficial and much smaller. Earlier this week she came to the office with concerns that the left breast Tzone wound is enlarging.? The right breast implant is already exposed at the Tzone.? ? The left breast Tzone area shows superficial separation with no exposed breast implant at this time.? There is the chance that the left breast Tzone area will stabilize and not continue to enlarge.? There is also the chancethat the left breast implant will not become exposed.? However, there is the chance (even low chance) that the left breast implant will become exposed.? I want to minimize the amount of surgeries this patient has.? Will make the decision at the time of surgery.? If the left breast Tzone wound continues to slowly increase, then i would debride both breast wounds with removal of the cohesive gel implants.? If the breast pocket wounds close easily without evidence of residual infection, then would place saline tissue expanders into the breast pocket wounds.? If the wound edges still appear swollen and there is concern that the sutures may not ultimately hold, then would hold off on placement of the saline tissue expanders.? After healing has occurred and any residual infection treated, can return to the operating room for placement of the saline tissue expanders with acellular dermal matrix grafts.? Tentative time frame would be around 3 months. She is also being seen at the [facility] for compromised nipple grafts and wasapproved for HBO treatments.? After the first treatment on 05/13/22, she developed left ear pain and had ear tubes placed.? She is now tolerating the HBOtreatments. She initially presented for evaluation of her breasts after having genetic testing done in 2019.? The testing was done because of a family history of breast cancer (Grandmother and Aunt).? The genes tested were DEISY, BRCA1, BRCA2, CDH1, CHEK2, PALB2, PTEN, and TP53.? The testing was done by [employer] 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 The conclusion was high risk for female breast cancer and elevated risk for pancreatic cancer.? Before deciding on having any surgery to her breasts, she wanted to due her own due diligence.? Then COVID hit.? Earlier this year she was told she was at high riskfor ovarian cancer due to this mutation and she underwent removal of both ovaries.? She already had a hysterectomy.? Because of this, she is concerned about getting breast cancer and has developed cancerphobia.? She comes in today to further discuss her genetic testing results and to discuss surgical options for treatment.? Her last mammogram was in May,, in [place].? Patient states it was normal.? It showed very dense breast parenchyma bilaterally.? No obvious mass lesion.? Palpable nodule left breast 2 olock position in subcutaneous tissue such as sebaceous cyst.? Benign, no evidence malignancy.? We have received medical approval for her breast reconstruction surgery.? She has decided on proceeding with bilateral prophylactic mastectomy with prepectoral breast implant reconstruction possible placement saline tissue marketing underwriter and acellular dermal matrix graft.? Initially she wanted simple mastectomies which would include the nipple because of the higher risk of developing breast cancer. PAST MEDICAL HISTORY Acquired absence of bilateral breasts and nipples Alcohol use Cancer phobia Disproportion of reconstructed breast Family history of breast cancer Former smoker Frequent headaches Gastric reflux Genetic 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 Migraine headache Monoallelic mutation of DEISY gene Pneumonia Prophylactic ovary removal Ptosis of both breasts Wears contact lenses Wears glasses PAST SURGICAL HISTORY prophylactic mastectomy right breast and immediate right breast reconstruction with placement prepectoral cohesive gel implant (700 ml) and placement FlexHD acellular dermal matrix graft (23 x 26 cm) and mastopexy and right nipple reconstruction with placement of free nipple graft and prophylactic mastectomy left breast and immediate left breast reconstruction with placement prepectoral cohesive gel implant (700 ml) and placement FlexHD acellular dermal matrix graft(23 x 26 cm) and mastopexy and left nipple reconstruction with placement of freenipple graft - 04/11/22 History of bilateral oophorectomy History of bladder surgery History of hysterectomy ALLERGIES Penicillins [PCN] MEDICATIONS ibuprofen omeprazole sumatriptan succinate valacyclovir Levaquin Doxycycline FAMILY HISTORY Grandmother -?Breast cancer Aunt -?Breast cancer Father -?Diabetes SOCIAL HISTORY Smoking Status:? Former smoker alcohol intake:? current substance use type:? does not use REVIEW OF SYSTEMS General - Denies fever, fatigue, and weight loss. Eyes - Denies cataracts and glaucoma. ENT - Denies nasal congestion and sore throat. Endocrine - Denies excessive thirst and urination.? Has family history of breast cancer (Grandmother and Aunt).? She had genetic testing which showed an abnormal DEISY mutation.? Had hysterectomy and earlier this year, she had bilateral oophorectomy. Skin - Denies suspicious lesions and skin cancer. Musculoskeletal - Denies joint pain, joint stiffness, weakness of muscles and joints, back pain, and arthritis. Neuro - Has headaches. Cardiovascular - Denies chest pain, fatigue, and shortness of breath with exertion. Psych - Denies anxiety and depression. Respiratory - Denies chronic cough and shortness of breath.? Patient is a former smoker. Gastrointestinal - Denies nausea, vomiting, diarrhea.? Has constipation. Hematologic - Denies abnormal bruising and bleeding. Genitourinary - Denies hematuria and urinary frequency. PHYSICAL EXAMINATION General - Alert and Oriented.? Her bra size was 36 D before the mastectomies. HEENT - PERRL. EOMI.? Throat is clear. Neck - Supple and nontender.? No cervical adenopathy. Breasts - There are areas of compromised nipple grafts, worse on the right.? Some eschar is present.? The outer edges of the nipple grafts are healing satisfactory with good adherence and good vascular ingrowth. ? The central areas are showing some compromise with eschar formation.? It is dry without drainage.? There is no evidence of infection. ? The right nipple graft shows 60% take.? The left nipple graft shows 85% take.? Today the right breast Tzone wound extends up toward the nipple areolar complex.? Measures 7 x 5 cm.? The proximal 2/3 of the wound shows exposed subcutaneous tissue.? The distal 1/3 of the wound shows exposed acellular dermal matrix graft.? Within one corner of the exposed acellular dermal matrix graft is exposed right breast implant.? The left breast Tzone wound measures 1.5 x 0.7 cm.? Granulation tissue is present. ? The left breast implant is not exposed at this time.? The rest of her incisions are dry and intact. Lungs - Clear to auscultation. Heart - Regular rate and rhythm. Abdomen - Soft and nondistended. Extremities - FROM. No axillary adenopathy.? Radial pulses are palpable. Neuro - CN II-XII grossly intact. Psych - Normal mood and affect. ASSESSMENT 1.? 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 2.? Genetic susceptibility to breast cancer. 3.? Cancer phobia. 4.? Family history of breast cancer. 5.? History of prophylactic bilateral oophorectomy. 6.? Planned acquired absence bilateral breasts and nipples. 7.? Planned disproportion reconstructed breasts. 8.? Planned prophylactic bilateral breast removal. 9.? Pseudoptosis bilateral breasts. 10.? Former smoker. 11. Nonhealing wounds bilateral breasts at the Tzone areas. 12. Exposed implant right breast with infection. 13. Compromised nipple grafts. 14. MRSE. PLAN ?Patient has an exposed implant on the right.? Discussed with the patient that the exposed implant needs to be removed.? Will obtain cultures at the time of surgery.? A positive culture will necessitate antibiotic therapy.? IV antibiotics may be needed based on the culture results as well.? Also at the time of surgery, I will decide if the left breast needs to be debrided with removal of the implant as well. At the time of surgery, if there is pus present, then will hold off on placement of an marketing underwriter at this time.? Will debride the wound and proceed with complex secondary wound closure.? After healing has occurred and the infection has been treated, will return to the operating room for placement of a tissue marketing underwriter in a delayed fashion, tentatively 6 months.? If there is no pus after removing the implant, then I would decide about placing a tissue marketing underwriter at that time or just closing the wound and allowing healing to occur and then placing a tissue marketing underwriter in a delayed fashion, tentatively 3 months. The surgery is scheduled later on this week on May 30, 2022.? The expanders and acellular dermal matrix grafts have been ordered.? Surgery will be done under general anesthesia with a surgical observation overnight stay in the hospital. Patient was informed of the risks and complications of the procedure including alternatives to surgery.? These were discussed with the patient personally.? Patient voices understanding and wishes to proceed. Some of the risks and complications were included in a form from the [employer]. Potential risks and complications included but not inclusive of bleeding, infection, seroma, hematoma, bruising, swelling, prolonged need for drains, loss of sensation to skin, partial or complete loss of skin flap and/or nipple graft, wound breakdown, need for wound care, poor scarring, poor aesthetic outcome, intra operative cardiac or neurologic events, DVT, PE, and reaction to anesthesia. Continue to keep head elevated and continue lifting restriction. Continue to wear compression bra or anai wraps. At discharge, her Hgb was 8.6.? Her repeat Hgb on 04/23/22 was 11.5.? Continue iron supplementation. Continue HBO treatments until the surgery.? Can continue them after the surgery after the drains are removed. During these discussions about the need for further surgery with revision of the breast reconstruction, she became a little tearful. ? It was recommended to the patient that in times of overwhelming stressors, low dose antidepressants can be helpful in the patient's ability to maintain an even keel and be able to function on a daily basis.? Patient was in agreement and we sent a script for Lexapro into her Pharmacy. After the implants have been placed and healing has occurred, can then assess the status of the nipple grafts to determine if further nipple reconstruction needs to be done with skin grafting and/or intradermal tattooing. Genetic testing result reviewed.? It states she is at high risk for developing breast cancer.? High risk is defined as the absolute risk of cancer is approximately 5% or higher and the increase in risk over the general population is approximately 3- fold or higher and there is significant data from multiple studies supporting this cancer risk estimate.? For patients up to age 50 (she is 46), the cancer risk is up to 9% and the cancer risk for the general population is 1.9%.? After her recent prophylactic bilateral oophorectomy, she started to become nervous about the increased risk of developing breast cancer.? This led to her developing cancer phobia. With this degree of high risk severity for developing breast cancer, I recommend prophylactic mastectomy followed by reconstruction.? Prophylactic mastectomy can be either simple or subcutaneous (which includes the nipple).? Because of this high risk, I recommended simple mastectomies.? We can reconstruct her nipples later.? If we leave the nipples there will be more breast tissue preserved to maintain blood supply to the nipple.? Therefore she would still need mammograms and she would still be at higher risk.? Initially she was in agreement to proceed with the simple mastectomies.? After further thought, she has decided to keep the nipples, so would proceed with subcutaneous mastectomies.? She understands that some breast tissue is still present and mammograms would be necessary.? She voiced understanding and wishes to proceed. She is interested in a one stage breast reconstruction if possible. The two stage breast reconstruction is a two stage placement of a saline tissue marketing underwriter (smooth) followed by removal of the marketing underwriter with replacement cohesive gel implant and placement of acellular dermal matrix graft. The timing for the second procedure is about 3 months.? This option is safer because at the time of the implant replacement, the breast skin flaps have already healed so there is much less risk of a wound healing problem that could lead to exposure of the implant. A single stage placement of a cohesive gel implant is also possible which would be done on top of the muscle (prepectoral position) and covered completely by acellular dermal matrix graft.? The benefit is the patient wakes up with a breast.? She would be flat if a tissue marketing underwriter was placed.? For a single stage procedure, we sometimes combine the mastectomy incision into a breast lift incision if there is some ptosis because the nipple is excised with the specimen.? This usually entails a horizontal and vertical incision and the creation of the Tzone.? This is a weak spot that can cause wound healing issues especially if a implant is placed at the same time since in order to have projection, there will be some pressure from the implant on the Tzone area.? One way to minimize this risk is to decide what the best size implant is based on the breast pocket, then go down to the next smallest implant for the final size.? The smaller implant would have less pressure on the Tzone area.? That decision is made in the operating room.? The patient is a D cup and would like to stay as a D cup. ? The mastopexy, if needed, would help to shape the skin around the implant.? However, she is now wishing to keep the nipples with a subcutaneous mastectomy.? Moving the nipple in a breast lift would increase the risk of vascular issues with the nipple.? So during surgery, I will place the biggest sizer that fits the pocket until the maximize size is reached.? If there is good draping of the skin around the implant, then there would be no need for a breast lift as well.? If it appears that there is residual loose skin draping that would benefit from a breast lift, then would proceed with the placement of a saline tissue marketing underwriter.? With the expansion, the nipple may elevate enough that? no breast lift would be necessary when the final cohesive gel implant is placed.? A breast lift mastectomy incision removes some loose skin thus making the skin envelope smaller and leading to a less ptotic, perkier breast.? Before surgery, when the patient states her bra size, a lot of that is excess skin filling the bra.? A breast lift makes the breast firmer and elevates the breast giving it better shape and contour.? This sometimes leads to a smaller bra size but a better looking breast.? So at the time of surgery, if the largest implant placed doesn't give her a D cup when she is sat upright, then I would proceed with placement of a saline tissue marketing underwriter.? This would expand the skin and breast pocket so a larger implant can be placed after the marketing underwriter is removed. She understands that she may or may not wake up with a breast mound.? If a saline tissue marketing underwriter is placed, then additional surgery would be necessary to replace the marketing underwriter with a cohesive gel implant.? The chance of waking up with a breast mound is higher if the nipple is excised with the mastectomy since there would be no worries about the vascularity of the nipple.? The major change in her decision making is the desire to keep the nipples.? We have received medical approval for the bilateral prophylactic mastectomies followed by reconstruction with prepectoral cohesive gel implants or placement of a saline tissue marketing underwriter and subsequent tissue marketing underwriter removal with replacement cohesive gel implant.? It is scheduled for 04/11/22. Surgery would be done under general anesthesia with a surgical observation overnight stay in the hospital. She will have drains in for 10-14 days and be maintained on antibiotics until the drains are removed. Tissue that is removed at surgery will be sent to Pathology for analysis to rule out carcinoma. Her last mammogram was done in [place] in May,.? It showed dense breast parenchyma bilaterally.? No obvious mass lesion.? Palpable nodule left breast 2 oclock position in subcutaneous tissue such as sebaceous cyst.? Benign, no evidence malignancy. I thought she was receiving mammograms every 6 months, but it was every 12 months.? Instead she was having PAP smears every 6 months because of abnormal cells. Patient was informed of the risks and complications of the procedure including alternatives to surgery.? These were discussed with the patient personally.? Patient voices understanding and wishes to proceed. Some of the risks and complications were included in a form from the [employer]. Potential risks and complications included but not inclusive of bleeding, infection seroma, hematoma, bruising, swelling, prolonged need for drains, loss of sensation to skin, partial or complete loss of skin flap and/or nipple graft, wound breakdown, need for wound care, poor scarring, poor aesthetic outcome, intra operative cardiac or neurologic events, DVT, PE, and reaction to anesthesia. After further thought, I had another discussion with the patient a few days ago.? The patient's biggest priority is one stage procedure.? This priority can be more easily achieved if the nipples are removed.? Reshaping the breast over the implant is easier especially using a mastopexy type incision for the mastectomy because there is no worry where the nipple is located after the placement of the implant since the nipples would be removed.? The breast tissue would be removed from the undersurface of the nipple, and the nipple can be placed back on the breast in the appropriate position as a free nipple graft.? The healed nipple graft would look more real because of the texture difference between the smooth skin and the rougher areolar complex.? The patient may be interested in the free nipple graft and will let me know the morning of surgery.? And if there is some healing discoloration, then intradermal tattooing can be done to help smooth out the coloration. Assessment & Plan Assessment/Plan (1) Monoallelic mutation of DEISY gene: (2) Genetic 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: (3) Acquired absence of bilateral breasts and nipples: (4) Disproportion of reconstructed breast: (5) Exposed breast implant: (6) Cancer phobia: (7) Family history of breast cancer: (8) Former smoker: (9) Ptosis of both breasts: (10) History of bilateral oophorectomy: (11) Prophylactic ovary removal: (12) Nonhealing surgical wound: (13) Methicillin resistant Staphylococcus epidermidis infection: (14) Other complications of skin graft (allograft) (autograft): (15) Infection of breast implant: (16) Acute postoperative anemia due to expected blood loss: 05/30/22 2124 <Electronically signed by Zenaida Barrett MD> Cosigner Signature (if applicable): CC: Dr. Zenaida Barrett MD; Dr. Amanda Osborne MD~ Signed [facility] Work Phone: [phone]) 497-305403-14-[address] Alvarez [facility] May 27, 2022 2:07pm Note Date/Time May 27, 2022 2:0 7pm [facility] [address] [place] [address] Progress Note - Wound Care HBO 05/27/22 1403 MR#: [id number] Acct: [id number] Name: IRENE LOPEZ Rep #:[id number] : 1975 46 From: Edd Greer PCP: Dr. Amanda Osborne MD Statu s[place] [facility] [place] [facility] [place] of Present Illness Date of Service: 05/27/22 Chief Complaint: Compromised bilateral nipple skin grafts after mastectomy with immediate reconstruction and placement of free nipple graft. History of Wound: 46 year old female who had a recent surgery on 04/11/22 where she underwent Prophylactic mastectomy right breast and Immediate right breast reconstruction with placement prepectoral cohesive gel implant (700 ml) and placement FlexHD acellular dermal matrix graft (23 x 26 cm) and mastopexy and Right nipple reconstruction with placement of free nipple graft and Prophylacticmastectomy left breast and Immediate left breast reconstruction with placement prepectoral cohesive gel implant (700 ml) and placement FlexHD acellular dermal matrix graft (23 x 26 cm) and mastopexy and Left nipple reconstruction with placement of free nipple graft. She was discharged from the hospital on 04/14/22. Pathology of the right breast showed involutional change with mild non- proliferative fibrocystic change. Left breast showed involutional change withmild non-proliferative fibrocystic change and focal benign microcalcifications. She has developed some compromise of the nipple grafts, the right being worse than the left. Nipples show good adherence but the color has darkened. Right nipple with 60 % take and the left nipple with 80% take, both with good adherence and some vascular ingrowth. Her incisions are dry and intact. She would benefit from having hyperbaric oxygen therapy to help salvage her nipple grafts. She has been approved for 20 treatments. She now has bilateral tympanostomy tubes placed. Subjective Subjective The patient presented today for hyperbaric oxygen therapy. Today's session represents the seventh session of a planned 20 such sessions. Hyperbaric oxygentherapy was administered as per the facility's protocol. Hyperbaric oxygen therapy was administered at 2 deisy for 90 minutes with no air breaks. Patient tolerated hyperbaric oxygen therapy well, without complaints or complications. Upon emergence from the hyperbaric chamber, the patient's vital signs remained stable. She was discharged in good condition. Objective Data Lab / Micro Data Labs: Laboratory Results - last 24 hr 05/27/22 10:29: Magnesium 2.2 Exam Physical Exam Const alert, oriented x3, no apparent distress and well nourished General Appearance: cooperative and well developed HEENT normocephalic Head and Scalp: atraumatic Eyes PERRL and EOMs intact bilaterally Neck no JVD General: trachea midline Resp normal respiratory effort and no use of accessory muscles Effort and Inspection: able to speak in complete sentences Psych affect normal Appearance: grossly normal and well kempt Speech: normal speech Assessment/Plan Assessment/Plan (1) Other complications of skin graft (allograft) (autograft): CODE(S): T86.828 - Other complications of skin graft (allograft) (autograft) (2) Failed skin graft: CODE(S): T86.821 - Skin graft (allograft) (autograft) failure (3) Failure of flap graft: CODE(S): T86.821 - Skin graft (allograft) (autograft) failure (4) Nonhealing surgical wound: CODE(S): T81.89XA - Other complications of procedures, not elsewhere classified, initial encounter (5) History of bilateral breast implants: CODE(S): Z98.82 - Breast implant status (6) Status post bilateral breast reconstruction: CODE(S): Z98.890 - Other specified postprocedural states (7) Status post bilateral mastectomy: CODE(S): Z90.13 - Acquired absence of bilateral breasts and nipples (8) Acquired absence of bilateral breasts and nipples: CODE(S): Z90.13 - Acquired absence of bilateral breasts and nipples (9) Monoallelic mutation of DEISY gene: CODE(S): Z15.89 - Genetic susceptibility to other disease; Z15.01 - Genetic 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; Z15.09 - Genetic susceptibility to other malignant neoplasm PLAN: Plan The patient appears to be tolerating hyperbaric oxygen therapy well, which will be continued as per her medical plan. This note was generated with [employer] dictation software. It may contain incorrectwords, spelling, and punctuation that were not noted in checking the note beforesigning. 05/27/22 1407 <Electronically signed by Edd Alvarez MD> Cosigner Signature (if applicable): CC: ~ Signed [facility] Work Phone: 1(666) 128-405303-13-2023 Progress note Author Sarah Beth Maldonado [facility] May 26, 2022 10:12am Note Date/Time May 26, 2022 9:1 9am [facility] [address] [place] [id number] Progress Note - Wound Care HBO 05/26/22 0917 MR#: [id number] Acct: [id number] Name: IRENE LOPEZ Rep #:[id number] : 1975 46 From: Sarah Beth gaytan NP [employer]ILDING [employer]INTENANCE CUSTODIAN[employer] PCP: Dr. Amanda Osobrne MD Statu s:REG [facility] Location: History of Present Illness Date of Service: 05/22/22 Chief Complaint: Compromised bilateral nipple skin grafts after mastectomy with immediate reconstruction and placement of free nipple graft. History of Wound: 46 year old female who had a recent surgery on 04/11/22 where she underwent Prophylactic mastectomy right breast and Immediate right breast reconstruction with placement prepectoral cohesive gel implant (700 ml) and placement FlexHD acellular dermal matrix graft (23 x 26 cm) and mastopexy and Right nipple reconstruction with placement of free nipple graft and Prophylacticmastectomy left breast and Immediate left breast reconstruction with placement prepectoral cohesive gel implant (700 ml) and placement FlexHD acellular dermal matrix graft (23 x 26 cm) and mastopexy and Left nipple reconstruction with placement of free nipple graft. She was discharged from the hospital on 04/14/22. Pathology of the right breast showed involutional change with mild non- proliferative fibrocystic change. Left breast showed involutional change withmild non-proliferative fibrocystic change and focal benign microcalcifications. She has developed some compromise of the nipple grafts, the right being worse than the left. Nipples show good adherence but the color has darkened. Right nipple with 60 % take and the left nipple with 80% take, both with good adherence and some vascular ingrowth. Her incisions are dry and intact. She would benefit from having hyperbaric oxygen therapy to help salvage her nipple grafts. She has been approved for 20 treatments. She now has bilateral tympanostomy tubes placed. Progress of Wound: Today is the 6th treatment of hyperbaric oxygen therapy.? The patient is scheduled for 20 treatments total. Tolerance of hyperbaric oxygen therapy: Hyperbaric oxygen therapy was administered as per the facility's protocol.? Hyperbaric oxygen therapy was administered at 2.0 SHARIF in 100% oxygen for 90 minutes without air breaks.? The patient tolerated hyperbaric oxygen therapy well, without complications or complaints. Upon emergence of the hyperbaric chamber, the patient's vital signs remained stable.? She was discharged in good condition. Objective Data Objective Data Vital Signs: Vital Signs Temp Pulse Resp BP 97.6 F L 65 16 122/69 H 05/26/22 09:10 05/26/22 09:10 05/26/22 09:10 05/26/22 09:10 Exam Physical Exam Const alert, oriented x3 and no apparent distress General Appearance: cooperative HEENT normocephalic HEENT Narrative: Bilateral TM clear with bilateral tympanostomy tubes in place. Eyes General Eye: normal appearance of both eyes Resp normal respiratory effort and clear to auscultation bilaterally Effort and Inspection: able to speak in complete sentences Cardio regular rate and regular rhythm Psych affect normal Speech: normal speech Assessment/Plan Assessment/Plan (1) Other complications of skin graft (allograft) (autograft): CODE(S): T86.828 - Other complications of skin graft (allograft) (autograft) (2) Failed skin graft: CODE(S): T86.821 - Skin graft (allograft) (autograft) failure (3) Failure of flap graft: CODE(S): T86.821 - Skin graft (allograft) (autograft) failure (4) Nonhealing surgical wound: CODE(S): T81.89XA - Other complications of procedures, not elsewhere classified, initial encounter (5) History of bilateral breast implants: CODE(S): Z98.82 - Breast implant status (6) Status post bilateral breast reconstruction: CODE(S): Z98.890 - Other specified postprocedural states (7) Status post bilateral mastectomy: CODE(S): Z90.13 - Acquired absence of bilateral breasts and nipples (8) Acquired absence of bilateral breasts and nipples: CODE(S): Z90.13 - Acquired absence of bilateral breasts and nipples (9) Monoallelic mutation of DEISY gene: CODE(S): Z15.89 - Genetic susceptibility to other disease; Z15.01 - Genetic 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; Z15.09 - Genetic susceptibility to other malignant neoplasm PLAN: Plan The patient appears to be tolerating hyperbaric oxygen therapy well which will be continued as per her medical plan. This note was generated with [employer]oom[employer] software. It may contain incorrectwords, spelling, and punctuation that were not noted in checking the note beforesigning. 05/26/22 1012 <Electronically signed by Sarah Beth Maldonado NP BUILDING MAINTENANCE CUSTODIAN-C> Cosigner Signature (if applicable): CC: ~ Signed [facility] Work Phone: 1(692) 253-569903-10-2023 Progress note Author Rachel Beard [facility] May 23, 2022 3:57pm Note Date/Time May 19, 2022 11:2 4am [facility] [address] [place] [id number] Progress Note - Wound Care 05/19/22 1123 MR#: [id number] Acct: [id number] Name: IRENE LOPEZ Rep #:[id number] : 1975 46 From: Rachel gibson NP BUILDING MAINTENANCE CUSTODIAN-C PCP: Dr. Amanda Osborne MD Statu s:REG RCR Location: History of Present Illness Date of Service: 05/19/22 Chief Complaint: Compromised bilateral nipple skin grafts after mastectomy with immediate reconstruction and placement of free nipple graft. History of Wound: 46 year old female who had a recent surgery on 04/11/22 where she underwent Prophylactic mastectomy right breast and Immediate right breast reconstruction with placement prepectoral cohesive gel implant (700 ml) and placement FlexHD acellular dermal matrix graft (23 x 26 cm) and mastopexy and Right nipple reconstruction with placement of free nipple graft and Prophylacticmastectomy left breast and Immediate left breast reconstruction with placement prepectoral cohesive gel implant (700 ml) and placement FlexHD acellular dermal matrix graft (23 x 26 cm) and mastopexy and Left nipple reconstruction with placement of free nipple graft. She was discharged from the hospital on 04/14/22. Pathology of the right breast showed involutional change with mild non- proliferative fibrocystic change. Left breast showed involutional change withmild non-proliferative fibrocystic change and focal benign microcalcifications. She has developed some compromise of the nipple grafts, the right being worse than the left. Nipples show good adherence but the color has darkened. Right nipple with 60 % take and the left nipple with 80% take, both with good adherence and some vascular ingrowth. Her incisions are dry and intact. Progress of Wound: Right and left nipple grafts with compromise. The areas of compromise are dark in color. The left nipple is showing good improvement. She has separation on herright breast at the Tzone and on the vertical incision. She does have exposure of the biologic graft but no exposure of her right implant. She has dry, black scabbing present on the right nipple and on the vertical incision which is acting like a biologic dressing. She is tolerating HBO well. Objective Data Objective Data Vital Signs: Vital Signs Temp Pulse Resp BP 96.7 F L 71 18 118/65 05/19/22 09:45 05/19/22 09:45 05/19/22 09:45 05/19/22 09:45 Charges/Coding Procedures Integumentary [id number]: [id number] Global Visit Debridement Note Debridement Note Wound debrided: breast Laterality: Right Type of Debridement: Selective debridement Depth: in the subcutaneous layer Percentage of wound debrided: 100 Severity: Limited To Skin Breakdown Amount of bleeding with debridement: None Debridement Free Text: Moistened saline gauze wiped on the right breast wound togently remove any non viable tissue. No aggressive debridement performed. Post-Debridement Measurements and Additional Note: Post-Debridement Measurements/Treatment WC - Nurse 1 - General Ulcer Assessment Start: 05/16/22 12:18 Freq: Status: Active Protocol: .DARIANEXMagnus Activity Type Activity Date Activity User E-sign Co-sign Detail Recorded Client Recorded Date Recorded By Document 05/19/22 08:38 DL [id number] 05/19/22 08:44 DL 05/19/22 08:38 WC - Today's Visit Information Type of service Follow-up Visit (Physician/TESTS SUPERINTENDENT ) Arrival Mode Ambulatory Transfer Assistance None Patient Identification Verified (Name & Yes ) Patient Requires Transmission-Based No Precautions Safety Precautions NA Vital Signs Temperature (97.8 F-99.1 F) 96.7 F L Temperature Source Temporal Pulse Rate (60-100) 71 Pulse Location Monitor Respiratory Rate (12-18) 18 Respiratory rate source Observation Blood Pressure (90/60-120/80) 118/65 Blood Pressure Mean (mm Hg) 82 Source Monitor Position Sitting Blood Pressure Location Left Arm History Since Last Visit- (Skip if this is Patient's initial visit) Have you changed medications since your No last visit? Any new allergies or adverse reactions No Had a fall/change in ADL's that may No increase risk of falls Signs or symptoms of abuse and/or No neglect since last visit Have you been in the hospital since your No last visit? Has dressing in place as prescribed Yes Has compression in place as prescribed N/A Has offloadiing in place as prescribed N/A Experienced any changes in pain level or No management Left Footwear Regular Shoe Right Footwear Regular Shoe Pain Scale: 0-10 Numeric Is Patient Pain Free? Yes - Nurse 1 - General Ulcer Measurement Start: 05/16/22 12:18 Freq: Status: Active Protocol: Activity Type Activity Date Activity User E-sign Co-sign Detail Recorded Client Recorded Date Recorded By Document 05/19/22 08:38 DL [id number] 05/19/22 08:44 DL 05/19/22 08:38 Wound Center Nurse 1 #2 L BREAST -Current Size (cm) - Length 9 -Current Size (cm) - Width 2 -Current Size (cm) - Depth 0.1 -Total Square Cm 18 -Exudate Amt Small -Exudate Type Serosanguineous -Wound Margin Distinct, Outline Attached -Granulation Amt Medium (34-66%) -Granulation Quality [place] -Slough/Fibrin Yes -Necrosis Amt Large (67-100%) -Necrotic Tissue Type Eschar -Texture (Tarah-wound Skin Appearance) Assessed -Moisture (Tarah-wound Skin Appearance) Assessed -Color (Tarah-wound Skin Appearance) Assessed -Temperature (Tarah-wound Skin No Abnormality Appearance) (Pt Warm) -Tenderness on Palpation (Tarah-wound Yes Skin Appearance) -Ulcer Cleansing Rinsed/ Irrigated with Saline -Foul Odor after Cleansing No -Anesthetic Used 4% Lidocaine Solution #1 R BREAST -Current Size (cm) - Length 10.8 -Current Size (cm) - Width 4.6 -Current Size (cm) - Depth 0.2 -Total Square Cm 49.68 -Exudate Amt Medium -Exudate Type Serosanguineous -Wound Margin Distinct, Outline Attached -Granulation Amt Small (1-33%) -Necrosis Amt Large (67-100%) -Necrotic Tissue Type Eschar -Texture (Tarah-wound Skin Appearance) Assessed -Moisture (Tarah-wound Skin Appearance) Assessed -Color (Tarah-wound Skin Appearance) Assessed -Temperature (Tarah-wound Skin No Abnormality Appearance) (Pt Warm) -Tenderness on Palpation (Tarah-wound Yes Skin Appearance) -Ulcer Cleansing Rinsed/ Irrigated with Saline -Anesthetic Used 4% Lidocaine Solution Assessment/Plan Assessment/Plan (1) Other complications of skin graft (allograft) (autograft): CODE(S): T86.828 - Other complications of skin graft (allograft) (autograft) (2) Status post bilateral mastectomy: CODE(S): Z90.13 - Acquired absence of bilateral breasts and nipples (3) Status post bilateral breast reconstruction: CODE(S): Z98.890 - Other specified postprocedural states (4) History of bilateral breast implants: CODE(S): Z98.82 - Breast implant status (5) Prophylactic breast removal: CODE(S): Z40.01 - Encounter for prophylactic removal of breast (6) Acquired absence of bilateral breasts and nipples: CODE(S): Z90.13 - Acquired absence of bilateral breasts and nipples (7) Genetic 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: CODE(S): Z15.01 - 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: CODE(S): Z15.89 - Genetic susceptibility to other disease; Z15.01 - Genetic 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; Z15.09 - Genetic susceptibility to other malignant neoplasm (9) Cancer phobia: CODE(S): F40.298 - Other specified phobia (10) Family history of breast cancer: CODE(S): Z80.3 - Family history of malignant neoplasm of breast (11) Disproportion of reconstructed breast: CODE(S): N65.1 - Disproportion of reconstructed breast (12) Acute postoperative anemia due to expected blood loss: CODE(S): D62 - Acute posthemorrhagic anemia (13) Former smoker: CODE(S): Z87.891 - Personal history of nicotine dependence PLAN: Plan Patient evaluated at the wound healing center. She has been approved for HBOT, she ended up needing Tympanostomy tubes. She isnow tolerating HBO well. She has a separation on her right breast. No implant is exposed. The biologic graft is exposed at the Tzone. Wound care - Place moistened silver alginate dressing to the tzones bilaterally daily. Place antibiotic ointment to the nipple grafts daily after HBO. Wound culture obtained on 05/12/22 which was positive for MRSE. She is taking Levaquin and tolerating it well. ? Her chest x-ray and EKG were both normal. Continue to keep head elevated and continue lifting restriction. Continue to wear compression bra/surgical bra or ANAI wraps. Continue antibiotic ointment to the nipple grafts daily. At discharge, her Hgb was 8.6.?Her recheck Hgb 11.5 on 04/23/22. ? Continue Iron supplementation. ? I discussed the right breast wound separation with Dr. Barrett. He agrees with treatment plans at this time. Follow up one week to see me. Call or come in sooner if develop any concerns. ?? 05/23/22 0502 <Electronically signed by Rachel Beard NP BUILDING MAINTENANCE CUSTODIAN-C> Cosigner Signature (if applicable): CC: ~ Signed [facility] Work Phone: 1(722) 720-444103-09-[address] Castellon [facility] May 22, 2022 12:57pm Note Date/Time May 22, 2022 9:23 am [facility] [address] [place], [place] [address] [place] [address] Progress Note - Wound Care HBO 05/22/22 0921 MR#: [id number] Acct: [id number] Name: IRENE LOPEZ Rep #:[id number] : 1975 46 From: Robby zarate MD PCP: Dr. Amanda Osborne MD Statu s:REG RCR Location: History of Present Illness Date of Service: 05/22/22 Chief Complaint: Compromised bilateral nipple skin grafts after mastectomy with immediate reconstruction and placement of free nipple graft. History of Wound: 46 year old female who had a recent surgery on 04/11/22 where she underwent Prophylactic mastectomy right breast and Immediate right breast reconstruction with placement prepectoral cohesive gel implant (700 ml) and placement FlexHD acellular dermal matrix graft (23 x 26 cm) and mastopexy and Right nipple reconstruction with placement of free nipple graft and Prophylacticmastectomy left breast and Immediate left breast reconstruction with placement prepectoral cohesive gel implant (700 ml) and placement FlexHD acellular dermal matrix graft (23 x 26 cm) and mastopexy and Left nipple reconstruction with placement of free nipple graft. She was discharged from the hospital on 04/14/22. Pathology of the right breast showed involutional change with mild non- proliferative fibrocystic change. Left breast showed involutional change withmild non-proliferative fibrocystic change and focal benign microcalcifications. She has developed some compromise of the nipple grafts, the right being worse than the left. Nipples show good adherence but the color has darkened. Right nipple with 60 % take and the left nipple with 80% take, both with good adherence and some vascular ingrowth. Her incisions are dry and intact. She would benefit from having hyperbaric oxygen therapy to help salvage her nipple grafts. She has been approved for 20 treatments. She now has bilateral tympanostomy tubes placed. Progress of Wound: Today is the 5th treatment of hyperbaric oxygen therapy.? The patient is scheduled for 20 treatments total. Tolerance of hyperbaric oxygen therapy: Hyperbaric oxygen therapy was administered as per the facility's protocol.? Hyperbaric oxygen therapy was administered at 2.0 SHARIF in 100% oxygen for 90 minutes without air breaks.? The patient tolerated hyperbaric oxygen therapy well, without complications or complaints. Upon emergence of the hyperbaric chamber, the patient's vital signs remained stable.? She was discharged in good condition. Objective Data Objective Data Vital Signs: Vital Signs Temp Pulse Resp BP 97.4 F L 62 16 105/49 L 05/21/22 11:38 05/21/22 11:38 05/21/22 11:38 05/21/22 11:38 Exam Physical Exam Const alert, oriented x3, no apparent distress and well nourished General Appearance: cooperative and well developed HEENT normocephalic HEENT Narrative: Bilateral TM clear with bilateral tympanostomy tubes in place. No erythema or bleeding. Head and Scalp: atraumatic Eyes PERRL and EOMs intact bilaterally Resp normal respiratory effort and no use of accessory muscles Effort and Inspection: able to speak in complete sentences Psych affect normal Appearance: grossly normal and well kempt Speech: normal speech Nursing Assessment and Debridement Post-Debridement Measurements and Additional Note: Post-Debridement Measurements/Treatment - Nurse 1 - General Ulcer Assessment Start: 05/16/22 12:18 Freq: Status: Active Protocol: HERNANDEZ Activity Type Activity Date Activity User E-sign Co-sign Detail Recorded Client Recorded Date Recorded By Document 05/19/22 08:38 DL [id number] 05/19/22 08:44 DL 05/19/22 08:38 - Today's Visit Information Type of service Follow-up Visit (Physician/TESTS SUPERINTENDENT ) Arrival Mode Ambulatory Transfer Assistance None Patient Identification Verified (Name & Yes ) Patient Requires Transmission-Based No Precautions Safety Precautions NA Vital Signs Temperature (97.8 F-99.1 F) 96.7 F L Temperature Source Temporal Pulse Rate (60-100) 71 Pulse Location Monitor Respiratory Rate (12-18) 18 Respiratory rate source Observation Blood Pressure (90/60-120/80) 118/65 Blood Pressure Mean (mm Hg) 82 Source Monitor Position Sitting Blood Pressure Location Left Arm History Since Last Visit- (Skip if this is Patient's initial visit) Have you changed medications since your No last visit? Any new allergies or adverse reactions No Had a fall/change in ADL's that may No increase risk of falls Signs or symptoms of abuse and/or No neglect since last visit Have you been in the hospital since your No last visit? Has dressing in place as prescribed Yes Has compression in place as prescribed N/A Has offloadiing in place as prescribed N/A Experienced any changes in pain level or No management Left Footwear Regular Shoe Right Footwear Regular Shoe Pain Scale: 0-10 Numeric Is Patient Pain Free? Yes - Nurse 1 - General Ulcer Measurement Start: 05/16/22 12:18 Freq: Status: Active Protocol: Activity Type Activity Date Activity User E-sign Co-sign Detail Recorded Client Recorded Date Recorded By Document 05/19/22 08:38 DL [id number] 05/19/22 08:44 DL 05/19/22 08:38 Wound Center Nurse 1 #2 L BREAST -Current Size (cm) - Length 9 -Current Size (cm) - Width 2 -Current Size (cm) - Depth 0.1 -Total Square Cm 18 -Exudate Amt Small -Exudate Type Serosanguineous -Wound Margin Distinct, Outline Attached -Granulation Amt Medium (34-66%) -Granulation Quality [place] -Slough/Fibrin Yes -Necrosis Amt Large (67-100%) -Necrotic Tissue Type Eschar -Texture (Tarah-wound Skin Appearance) Assessed -Moisture (Tarah-wound Skin Appearance) Assessed -Color (Tarah-wound Skin Appearance) Assessed -Temperature (Tarah-wound Skin No Abnormality Appearance) (Pt Warm) -Tenderness on Palpation (Tarah-wound Yes Skin Appearance) -Ulcer Cleansing Rinsed/ Irrigated with Saline -Foul Odor after Cleansing No -Anesthetic Used 4% Lidocaine Solution #1 R BREAST -Current Size (cm) - Length 10.8 -Current Size (cm) - Width 4.6 -Current Size (cm) - Depth 0.2 -Total Square Cm 49.68 -Exudate Amt Medium -Exudate Type Serosanguineous -Wound Margin Distinct, Outline Attached -Granulation Amt Small (1-33%) -Necrosis Amt Large (67-100%) -Necrotic Tissue Type Eschar -Texture (Tarah-wound Skin Appearance) Assessed -Moisture (Tarah-wound Skin Appearance) Assessed -Color (Tarah-wound Skin Appearance) Assessed -Temperature (Tarah-wound Skin No Abnormality Appearance) (Pt Warm) -Tenderness on Palpation (Tarah-wound Yes Skin Appearance) -Ulcer Cleansing Rinsed/ Irrigated with Saline -Anesthetic Used 4% Lidocaine Solution WC - Nurse 2 - General Ulcer CM Notes Start: 05/16/22 12:18 Freq: Status: Active Protocol: Activity Type Activity Date Activity User E-sign Co-sign Detail Recorded Client Recorded Date Recorded By Document 05/19/22 08:50 [email or web address] [id number] 05/19/22 15:45 FÉLIX 05/19/22 08:50 Wound Center Nurse 2 #2 L BREAST -Time 15:44 -Correct Patient Yes -Correct Side, Site, Position Yes -Correct Procedure Yes -Procedure Performed Yes -Type of Procedure Debridement -Clinical Debridement Epidermis / Dermis -Tissue Removed Epidermis, Dermis -Post Debridement (cm) - Length 3.3 -Post Debridement (cm) - Width 1.5 -Post Debridement (cm) - Depth 0.1 -Total Square (Post) (cm) 4.95 -Area of Debridement (cm) - Length 3.3 -Area of Debridement (cm) - Width 1.5 -Total Square (Area) (cm) 4.95 -Tunneling No -Undermining/Tunneling No -Circular Undermining No -Wound/Ulcer Outcome Not Healed -Ulcer Cleansing Rinsed/ Irrigated with Saline -Foul Odor after Cleansing No -Bioengineered Tissue No -Bleeding Controlled with Pressure -Treatment Response Procedure Tolerated Well -Offloading No -Debridement - Open, 1st 20sq cm Yes #1 R BREAST -Correct Patient No -Correct Side, Site, Position No -Correct Procedure No -Procedure Performed No -Post Debridement (cm) - Length 10.8 -Post Debridement (cm) - Width 5.0 -Post Debridement (cm) - Depth 0.1 -Total Square (Post) (cm) 54.00 -Area of Debridement (cm) - Length 10.8 -Area of Debridement (cm) - Width 5.0 -Total Square (Area) (cm) 54.00 -Wound/Ulcer Outcome Not Healed -Offloading No -Debridement - Open, 1st 20sq cm No -Debridement - Subq, 1st 20sq cm No Pain Scale: 0-10 Numeric Is Patient Pain Free? Yes Charges/Coding Wound Center CF Procedures HBO Supervision: [id number] Hyperbaric Oxygen; supervision Assessment/Plan Assessment/Plan (1) Other complications of skin graft (allograft) (autograft): CODE(S): T86.828 - Other complications of skin graft (allograft) (autograft) (2) Failed skin graft: CODE(S): T86.821 - Skin graft (allograft) (autograft) failure (3) Failure of flap graft: CODE(S): T86.821 - Skin graft (allograft) (autograft) failure (4) Nonhealing surgical wound: CODE(S): T81.89XA - Other complications of procedures, not elsewhere classified, initial encounter (5) History of bilateral breast implants: CODE(S): Z98.82 - Breast implant status (6) Status post bilateral breast reconstruction: CODE(S): Z98.890 - Other specified postprocedural states (7) Status post bilateral mastectomy: CODE(S): Z90.13 - Acquired absence of bilateral breasts and nipples (8) Acquired absence of bilateral breasts and nipples: CODE(S): Z90.13 - Acquired absence of bilateral breasts and nipples (9) Monoallelic mutation of DEISY gene: CODE(S): Z15.89 - Genetic susceptibility to other disease; Z15.01 - Genetic 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; Z15.09 - Genetic susceptibility to other malignant neoplasm PLAN: Plan The patient appears to be tolerating hyperbaric oxygen therapy well which will be continued as per her medical plan. This note was generated with [employer] dictation software. It may contain incorrectwords, spelling, and punctuation that were not noted in checking the note beforesigning. 05/22/22 1257 <Electronically signed by Robby Castellon MD> Cosigner Signature (if applicable): CC: ~ Signed [facility] Work Phone: 1(240) 709-507603-08-2023 Progress note Author [place] [facility] May 21, 2022 11:49am Note Date/Time May 21, 2022 11:4 9am [facility] [address] [place] [id number] Progress Note - Wound Care HBO 05/21/22 1147 MR#: [id number] Acct: [id number] Name: IRENE LOPEZ Rep #:[id number] : 1975 46 From: [place] BUILDING MAINTENANCE CUSTODIAN BUILDING MAINTENANCE CUSTODIAN-C PCP: Dr. Amanda Osborne MD Statu s:REG RCR Location: History of Present Illness Date of Service: 05/21/22 Chief Complaint: Compromised bilateral nipple skin grafts after mastectomy with immediate reconstruction and placement of free nipple graft. History of Wound: 46 year old female who had a recent surgery on 04/11/22 where she underwent Prophylactic mastectomy right breast and Immediate right breast reconstruction with placement prepectoral cohesive gel implant (700 ml) and placement FlexHD acellular dermal matrix graft (23 x 26 cm) and mastopexy and Right nipple reconstruction with placement of free nipple graft and Prophylacticmastectomy left breast and Immediate left breast reconstruction with placement prepectoral cohesive gel implant (700 ml) and placement FlexHD acellular dermal matrix graft (23 x 26 cm) and mastopexy and Left nipple reconstruction with placement of free nipple graft. She was discharged from the hospital on 04/14/22. Pathology of the right breast showed involutional change with mild non- proliferative fibrocystic change. Left breast showed involutional change withmild non-proliferative fibrocystic change and focal benign microcalcifications. She has developed some compromise of the nipple grafts, the right being worse than the left. Nipples show good adherence but the color has darkened. Right nipple with 60 % take and the left nipple with 80% take, both with good adherence and some vascular ingrowth. Her incisions are dry and intact. She would benefit from having hyperbaric oxygen therapy to help salvage her nipple grafts. She has been approved for 20 treatments. She now has bilateral tympanostomy tubes placed. Progress of Wound: Today is the 4th treatment of hyperbaric oxygen therapy.? The patient is scheduled for 20 treatments total. Tolerance of hyperbaric oxygen therapy: Hyperbaric oxygen therapy was administered as per the facility's protocol.? Hyperbaric oxygen therapy was administered at 2.0 SHARIF in 100% oxygen for 90 minutes without air breaks.? The patient tolerated hyperbaric oxygen therapy well, without complications or complaints. Upon emergence of the hyperbaric chamber, the patient's vital signs remained stable.? She was discharged in good condition. Subjective Subjective Patient is having issues with her breast implants exposing Objective Data Objective Data Tolerating treatments well we will continue with scheduled . Practitioner Kailey went in to look at her implant Vital Signs: Vital Signs Temp Pulse Resp BP 97.4 F L 62 16 105/49 L 05/21/22 11:38 05/21/22 11:38 05/21/22 11:38 05/21/22 11:38 Lab / Micro Data Attestation: I reviewed the patient's lab results. Exam Nursing Assessment and Debridement Post-Debridement Measurements and Additional Note: Post-Debridement Measurements/Treatment - Nurse 1 - General Ulcer Assessment Start: 05/16/22 12:18 Freq: Status: Active Protocol: HERNANDEZ Activity Type Activity Date Activity User E-sign Co-sign Detail Recorded Client Recorded Date Recorded By Document 05/19/22 08:38 DL [id number] 05/19/22 08:44 DL 05/19/22 08:38 WC - Today's Visit Information Type of service Follow-up Visit (Physician/TESTS SUPERINTENDENT ) Arrival Mode Ambulatory Transfer Assistance None Patient Identification Verified (Name & Yes ) Patient Requires Transmission-Based No Precautions Safety Precautions NA Vital Signs Temperature (97.8 F-99.1 F) 96.7 F L Temperature Source Temporal Pulse Rate (60-100) 71 Pulse Location Monitor Respiratory Rate (12-18) 18 Respiratory rate source Observation Blood Pressure (90/60-120/80) 118/65 Blood Pressure Mean (mm Hg) 82 Source Monitor Position Sitting Blood Pressure Location Left Arm History Since Last Visit- (Skip if this is Patient's initial visit) Have you changed medications since your No last visit? Any new allergies or adverse reactions No Had a fall/change in ADL's that may No increase risk of falls Signs or symptoms of abuse and/or No neglect since last visit Have you been in the hospital since your No last visit? Has dressing in place as prescribed Yes Has compression in place as prescribed N/A Has offloadiing in place as prescribed N/A Experienced any changes in pain level or No management Left Footwear Regular Shoe Right Footwear Regular Shoe Pain Scale: 0-10 Numeric Is Patient Pain Free? Yes - Nurse 1 - General Ulcer Measurement Start: 05/16/22 12:18 Freq: Status: Active Protocol: Activity Type Activity Date Activity User E-sign Co-sign Detail Recorded Client Recorded Date Recorded By Document 05/19/22 08:38 DL [id number] 05/19/22 08:44 DL 05/19/22 08:38 Wound Center Nurse 1 #2 L BREAST -Current Size (cm) - Length 9 -Current Size (cm) - Width 2 -Current Size (cm) - Depth 0.1 -Total Square Cm 18 -Exudate Amt Small -Exudate Type Serosanguineous -Wound Margin Distinct, Outline Attached -Granulation Amt Medium (34-66%) -Granulation Quality [place] -Slough/Fibrin Yes -Necrosis Amt Large (67-100%) -Necrotic Tissue Type Eschar -Texture (Tarah-wound Skin Appearance) Assessed -Moisture (Tarah-wound Skin Appearance) Assessed -Color (Tarah-wound Skin Appearance) Assessed -Temperature (Tarah-wound Skin No Abnormality Appearance) (Pt Warm) -Tenderness on Palpation (Tarah-wound Yes Skin Appearance) -Ulcer Cleansing Rinsed/ Irrigated with Saline -Foul Odor after Cleansing No -Anesthetic Used 4% Lidocaine Solution #1 R BREAST -Current Size (cm) - Length 10.8 -Current Size (cm) - Width 4.6 -Current Size (cm) - Depth 0.2 -Total Square Cm 49.68 -Exudate Amt Medium -Exudate Type Serosanguineous -Wound Margin Distinct, Outline Attached -Granulation Amt Small (1-33%) -Necrosis Amt Large (67-100%) -Necrotic Tissue Type Eschar -Texture (Tarah-wound Skin Appearance) Assessed -Moisture (Tarah-wound Skin Appearance) Assessed -Color (Tarah-wound Skin Appearance) Assessed -Temperature (Tarah-wound Skin No Abnormality Appearance) (Pt Warm) -Tenderness on Palpation (Tarah-wound Yes Skin Appearance) -Ulcer Cleansing Rinsed/ Irrigated with Saline -Anesthetic Used 4% Lidocaine Solution WC - Nurse 2 - General Ulcer CM Notes Start: 05/16/22 12:18 Freq: Status: Active Protocol: Activity Type Activity Date Activity User E-sign Co-sign Detail Recorded Client Recorded Date Recorded By Document 05/19/22 08:50 FÉLIX [id number] 05/19/22 15:45 FÉLIX 05/19/22 08:50 Wound Center Nurse 2 #2 L BREAST -Time 15:44 -Correct Patient Yes -Correct Side, Site, Position Yes -Correct Procedure Yes -Procedure Performed Yes -Type of Procedure Debridement -Clinical Debridement Epidermis / Dermis -Tissue Removed Epidermis, Dermis -Post Debridement (cm) - Length 3.3 -Post Debridement (cm) - Width 1.5 -Post Debridement (cm) - Depth 0.1 -Total Square (Post) (cm) 4.95 -Area of Debridement (cm) - Length 3.3 -Area of Debridement (cm) - Width 1.5 -Total Square (Area) (cm) 4.95 -Tunneling No -Undermining/Tunneling No -Circular Undermining No -Wound/Ulcer Outcome Not Healed -Ulcer Cleansing Rinsed/ Irrigated with Saline -Foul Odor after Cleansing No -Bioengineered Tissue No -Bleeding Controlled with Pressure -Treatment Response Procedure Tolerated Well -Offloading No -Debridement - Open, 1st 20sq cm Yes #1 R BREAST -Correct Patient No -Correct Side, Site, Position No -Correct Procedure No -Procedure Performed No -Post Debridement (cm) - Length 10.8 -Post Debridement (cm) - Width 5.0 -Post Debridement (cm) - Depth 0.1 -Total Square (Post) (cm) 54.00 -Area of Debridement (cm) - Length 10.8 -Area of Debridement (cm) - Width 5.0 -Total Square (Area) (cm) 54.00 -Wound/Ulcer Outcome Not Healed -Offloading No -Debridement - Open, 1st 20sq cm No -Debridement - Subq, 1st 20sq cm No Pain Scale: 0-10 Numeric Is Patient Pain Free? Yes Assessment/Plan Assessment/Plan (1) Other complications of skin graft (allograft) (autograft): CODE(S): T86.828 - Other complications of skin graft (allograft) (autograft) (2) Failed skin graft: CODE(S): T86.821 - Skin graft (allograft) (autograft) failure (3) Failure of flap graft: CODE(S): T86.821 - Skin graft (allograft) (autograft) failure (4) Nonhealing surgical wound: CODE(S): T81.89XA - Other complications of procedures, not elsewhere classified, initial encounter (5) History of bilateral breast implants: CODE(S): Z98.82 - Breast implant status (6) Status post bilateral breast reconstruction: CODE(S): Z98.890 - Other specified postprocedural states (7) Status post bilateral mastectomy: CODE(S): Z90.13 - Acquired absence of bilateral breasts and nipples (8) Acquired absence of bilateral breasts and nipples: CODE(S): Z90.13 - Acquired absence of bilateral breasts and nipples (9) Monoallelic mutation of DEISY gene: CODE(S): Z15.89 - Genetic susceptibility to other disease; Z15.01 - Genetic 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; Z15.09 - Genetic susceptibility to other malignant neoplasm (10) History of bilateral oophorectomy: CODE(S): Z90.722 - Acquired absence of ovaries, bilateral PLAN: Plan The patient appears to be tolerating hyperbaric oxygen therapy well, without complaints or complications. The ear barotrauma she experienced initially has now resolved as result of the placement of myringotomy tubes. The patient's hyperbaric oxygen therapy sessions are to continue as per her medical plan. 05/21/22 1149 <Electronically signed by Soco Tipton NP BUILDING MAINTENANCE CUSTODIAN-C> Cosigner Signature (if applicable): CC: ~ Signed [facility] Work Phone: [phone]) 224-736203-07-2023 Progress note Author Edd Alvarez [facility] May 20, 2022 2:11pm Note Date/Time May 20, 2022 2:05 pm [facility] [address] [place] [address] Progress Note - Wound Care HBO 05/20/22 1402 MR#: [id number] Acct: [id number] Name: IRENE LOPEZ Rep #:[id number] : 1975 46 From: Edd Greer PCP: Dr. Amanda Osborne MD Statu s:REG RCR Location: History of Present Illness Date of Service: 05/20/22 Chief Complaint: Compromised bilateral nipple skin grafts after mastectomy with immediate reconstruction and placement of free nipple graft. History of Wound: 46 year old female who had a recent surgery on 04/11/22 where she underwent Prophylactic mastectomy right breast and Immediate right breast reconstruction with placement prepectoral cohesive gel implant (700 ml) and placement FlexHD acellular dermal matrix graft (23 x 26 cm) and mastopexy and Right nipple reconstruction with placement of free nipple graft and Prophylacticmastectomy left breast and Immediate left breast reconstruction with placement prepectoral cohesive gel implant (700 ml) and placement FlexHD acellular dermal matrix graft (23 x 26 cm) and mastopexy and Left nipple reconstruction with placement of free nipple graft. She was discharged from the hospital on 04/14/22. Pathology of the right breast showed involutional change with mild non- proliferative fibrocystic change. Left breast showed involutional change withmild non-proliferative fibrocystic change and focal benign microcalcifications. She has developed some compromise of the nipple grafts, the right being worse than the left. Nipples show good adherence but the color has darkened. Right nipple with 60 % take and the left nipple with 80% take, both with good adherence and some vascular ingrowth. Her incisions are dry and intact. She would benefit from having hyperbaric oxygen therapy to help salvage her nipple grafts. She has been approved for 20 treatments. She now has bilateral tympanostomy tubes placed. Progress of Wound: Today is the 3rd treatment of hyperbaric oxygen therapy.? The patient is scheduled for 20 treatments total. Tolerance of hyperbaric oxygen therapy: Hyperbaric oxygen therapy was administered as per the facility's protocol.? Hyperbaric oxygen therapy was administered at 2.0 SHARIF in 100% oxygen for 90 minutes without air breaks.? The patient tolerated hyperbaric oxygen therapy well, without complications or complaints. Upon emergence of the hyperbaric chamber, the patient's vital signs remained stable.? She was discharged in good condition. Objective Data Objective Data Vital Signs: Vital Signs Temp Pulse Resp BP 97.2 F L 72 17 107/58 L 05/20/22 09:50 05/20/22 09:50 05/20/22 09:50 05/20/22 09:50 Exam Physical Exam Const alert, oriented x3, no apparent distress and well nourished General Appearance: cooperative and well developed HEENT normocephalic HEENT Narrative: Bilateral TM clear with bilateral tympanostomy tubes in place. No erythema or bleeding. Head and Scalp: atraumatic Eyes PERRL and EOMs intact bilaterally Resp normal respiratory effort and no use of accessory muscles Effort and Inspection: able to speak in complete sentences Psych affect normal Appearance: grossly normal and well kempt Speech: normal speech Nursing Assessment and Debridement Post-Debridement Measurements and Additional Note: Post-Debridement Measurements/Treatment WC - Nurse 1 - General Ulcer Assessment Start: 05/16/22 12:18 Freq: Status: Active Protocol: ANGY.LOWEXT Activity Type Activity Date Activity User E-sign Co-sign Detail Recorded Client Recorded Date Recorded By Document 05/19/22 08:38 DL [id number] 05/19/22 08:44 DL 05/19/22 08:38 - Today's Visit Information Type of service Follow-up Visit (Physician/TESTS SUPERINTENDENT ) Arrival Mode Ambulatory Transfer Assistance None Patient Identification Verified (Name & Yes ) Patient Requires Transmission-Based No Precautions Safety Precautions NA Vital Signs Temperature (97.8 F-99.1 F) 96.7 F L Temperature Source Temporal Pulse Rate (60-100) 71 Pulse Location Monitor Respiratory Rate (12-18) 18 Respiratory rate source Observation Blood Pressure (90/60-120/80) 118/65 Blood Pressure Mean (mm Hg) 82 Source Monitor Position Sitting Blood Pressure Location Left Arm History Since Last Visit- (Skip if this is Patient's initial visit) Have you changed medications since your No last visit? Any new allergies or adverse reactions No Had a fall/change in ADL's that may No increase risk of falls Signs or symptoms of abuse and/or No neglect since last visit Have you been in the hospital since your No last visit? Has dressing in place as prescribed Yes Has compression in place as prescribed N/A Has offloadiing in place as prescribed N/A Experienced any changes in pain level or No management Left Footwear Regular Shoe Right Footwear Regular Shoe Pain Scale: 0-10 Numeric Is Patient Pain Free? Yes - Nurse 1 - General Ulcer Measurement Start: 05/16/22 12:18 Freq: Status: Active Protocol: Activity Type Activity Date Activity User E-sign Co-sign Detail Recorded Client Recorded Date Recorded By Document 05/19/22 08:38 DL [id number] 05/19/22 08:44 DL 05/19/22 08:38 Wound Center Nurse 1 #2 L BREAST -Current Size (cm) - Length 9 -Current Size (cm) - Width 2 -Current Size (cm) - Depth 0.1 -Total Square Cm 18 -Exudate Amt Small -Exudate Type Serosanguineous -Wound Margin Distinct, Outline Attached -Granulation Amt Medium (34-66%) -Granulation Quality [place] -Slough/Fibrin Yes -Necrosis Amt Large (67-100%) -Necrotic Tissue Type Eschar -Texture (Tarah-wound Skin Appearance) Assessed -Moisture (Tarah-wound Skin Appearance) Assessed -Color (Tarah-wound Skin Appearance) Assessed -Temperature (Tarah-wound Skin No Abnormality Appearance) (Pt Warm) -Tenderness on Palpation (Tarah-wound Yes Skin Appearance) -Ulcer Cleansing Rinsed/ Irrigated with Saline -Foul Odor after Cleansing No -Anesthetic Used 4% Lidocaine Solution #1 R BREAST -Current Size (cm) - Length 10.8 -Current Size (cm) - Width 4.6 -Current Size (cm) - Depth 0.2 -Total Square Cm 49.68 -Exudate Amt Medium -Exudate Type Serosanguineous -Wound Margin Distinct, Outline Attached -Granulation Amt Small (1-33%) -Necrosis Amt Large (67-100%) -Necrotic Tissue Type Eschar -Texture (Tarah-wound Skin Appearance) Assessed -Moisture (Tarah-wound Skin Appearance) Assessed -Color (Tarah-wound Skin Appearance) Assessed -Temperature (Tarah-wound Skin No Abnormality Appearance) (Pt Warm) -Tenderness on Palpation (Tarah-wound Yes Skin Appearance) -Ulcer Cleansing Rinsed/ Irrigated with Saline -Anesthetic Used 4% Lidocaine Solution WC - Nurse 2 - General Ulcer CM Notes Start: 05/16/22 12:18 Freq: Status: Active Protocol: Activity Type Activity Date Activity User E-sign Co-sign Detail Recorded Client Recorded Date Recorded By Document 05/19/22 08:50 [id number] 05/19/22 15:45 05/19/22 08:50 Wound Center Nurse 2 #2 L BREAST -Time 15:44 -Correct Patient Yes -Correct Side, Site, Position Yes -Correct Procedure Yes -Procedure Performed Yes -Type of Procedure Debridement -Clinical Debridement Epidermis / Dermis -Tissue Removed Epidermis, Dermis -Post Debridement (cm) - Length 3.3 -Post Debridement (cm) - Width 1.5 -Post Debridement (cm) - Depth 0.1 -Total Square (Post) (cm) 4.95 -Area of Debridement (cm) - Length 3.3 -Area of Debridement (cm) - Width 1.5 -Total Square (Area) (cm) 4.95 -Tunneling No -Undermining/Tunneling No -Circular Undermining No -Wound/Ulcer Outcome Not Healed -Ulcer Cleansing Rinsed/ Irrigated with Saline -Foul Odor after Cleansing No -Bioengineered Tissue No -Bleeding Controlled with Pressure -Treatment Response Procedure Tolerated Well -Offloading No -Debridement - Open, 1st 20sq cm Yes #1 R BREAST -Correct Patient No -Correct Side, Site, Position No -Correct Procedure No -Procedure Performed No -Post Debridement (cm) - Length 10.8 -Post Debridement (cm) - Width 5.0 -Post Debridement (cm) - Depth 0.1 -Total Square (Post) (cm) 54.00 -Area of Debridement (cm) - Length 10.8 -Area of Debridement (cm) - Width 5.0 -Total Square (Area) (cm) 54.00 -Wound/Ulcer Outcome Not Healed -Offloading No -Debridement - Open, 1st 20sq cm No -Debridement - Subq, 1st 20sq cm No Pain Scale: 0-10 Numeric Is Patient Pain Free? Yes Assessment/Plan Assessment/Plan (1) Other complications of skin graft (allograft) (autograft): CODE(S): T86.828 - Other complications of skin graft (allograft) (autograft) (2) Failed skin graft: CODE(S): T86.821 - Skin graft (allograft) (autograft) failure (3) Failure of flap graft: CODE(S): T86.821 - Skin graft (allograft) (autograft) failure (4) Nonhealing surgical wound: CODE(S): T81.89XA - Other complications of procedures, not elsewhere classified, initial encounter (5) History of bilateral breast implants: CODE(S): Z98.82 - Breast implant status (6) Status post bilateral breast reconstruction: CODE(S): Z98.890 - Other specified postprocedural states (7) Status post bilateral mastectomy: CODE(S): Z90.13 - Acquired absence of bilateral breasts and nipples (8) Acquired absence of bilateral breasts and nipples: CODE(S): Z90.13 - Acquired absence of bilateral breasts and nipples (9) Monoallelic mutation of DEISY gene: CODE(S): Z15.89 - Genetic susceptibility to other disease; Z15.01 - Genetic 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; Z15.09 - Genetic susceptibility to other malignant neoplasm (10) History of bilateral oophorectomy: CODE(S): Z90.722 - Acquired absence of ovaries, bilateral PLAN: Plan The patient appears to be tolerating hyperbaric oxygen therapy well, without complaints or complications. The ear barotrauma she experienced initially has now resolved as result of the placement of myringotomy tubes. The patient's hyperbaric oxygen therapy sessions are to continue as per her medical plan. 05/20/22 1411 <Electronically signed by Edd Alvarez MD> Cosigner Signature (if applicable): CC: ~ Signed [facility] Work Phone: [phone]) 516-744402-28-2023 History and physical note Author Edd Alvarez [facility] May 13, 2022 3:32pm Note Date/Time May 13, 2022 3:32pm [facility] [address] [place] [id number] H&P Exam - Wound Care 05/13/22 1525 MR#: [id number] Acct: [id number] Name: IRENE LOPEZ Rep #:[id number] : 1975 46 From: Edd Greer PCP: Dr. Amanda Osborne MD Statu s:REG RCR Location: History of Present Illness Date of Service: 05/13/22 Chief Complaint: Compromised bilateral nipple skin grafts after mastectomy with immediate reconstruction and placement of free nipple graft. History of Wound: 46 year old female who had a recent surgery on 04/11/22 where she underwent Prophylactic mastectomy right breast and Immediate right breast reconstruction with placement prepectoral cohesive gel implant (700 ml) and placement FlexHD acellular dermal matrix graft (23 x 26 cm) and mastopexy and Right nipple reconstruction with placement of free nipple graft and Prophylacticmastectomy left breast and Immediate left breast reconstruction with placement prepectoral cohesive gel implant (700 ml) and placement FlexHD acellular dermal matrix graft (23 x 26 cm) and mastopexy and Left nipple reconstruction with placement of free nipple graft. She was discharged from the hospital on 04/14/22. Pathology of the right breast showed involutional change with mild non- proliferative fibrocystic change. Left breast showed involutional change withmild non-proliferative fibrocystic change and focal benign microcalcifications. She has developed some compromise of the nipple grafts, the right being worse than the left. Nipples show good adherence but the color has darkened. Right nipple with 60 % take and the left nipple with 80% take, both with good adherence and some vascular ingrowth. Her incisions are dry and intact. [facility] Medical History Acquired absence of bilateral breasts and nipples Alcohol use Allergies Cancer phobia Cancer phobia Disproportion of reconstructed breast Family history of breast cancer Former smoker Former smoker Frequent headaches Gastric reflux Genetic 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 Migraine headache Monoallelic mutation of DEISY gene Pneumonia PONV (postoperative nausea and vomiting) Prophylactic ovary removal Ptosis of both breasts Wears contact lenses Wears glasses Home Medications ibuprofen 800 mg tablet 800 mg PO Q12H PRN PRN Migraine Headache 03/28/22 [History Last Taken Unknown] omeprazole 40 mg capsule,delayed release 40 mg PO DAILY 03/28/22 [History Last Taken Unknown] sumatriptan succinate 100 mg tablet 100 mg PO PRN PRN MIGRAINE 03/28/22 [History Last Taken Unknown] valacyclovir 500 mg tablet 500 mg PO DAILY 03/28/22 [History Last Taken Unknown] L.acidophil,salivari-Bifido bifidum-Strep thermoph 175 mg capsule (Acidophilus Probiotic Blend) 1 cap PO DAILY 14 days #14 caps 04/14/22 [Rx Last Taken Unknown] cefadroxil 500 mg capsule 500 mg PO BID 14 days #28 caps 04/14/22 [Rx Last Taken Unknown] diazepam 5 mg tablet (Valium) 5 mg PO BID PRN muscle spasm 7 days #14 tabs 04/14/22 [Rx Last Taken Unknown] docusate sodium 100 mg capsule (Colace) 100 mg PO DAILY 30 days #30 caps 04/14/22 [Rx Last Taken Unknown] ondansetron 4 mg disintegrating tablet 4 mg PO Q8H PRN nausea and vomiting 5 days #15 tabs 04/14/22 [Rx Last Taken Unknown] oxycodone-acetaminophen 5 mg-325 mg tablet (Percocet) 1 tab PO Q4H PRN pain (scale score 7-10) 7 days #40 tabs 04/14/22 [Rx Last Taken Unknown] polysaccharide iron complex 150 mg iron capsule (Ferrex) 150 mg PO DAILY 30 days#30 caps 04/14/22 [Rx Last Taken Unknown] levofloxacin 500 mg tablet 500 mg PO DAILY 20 days #20 tabs 05/12/22 [Rx Last Taken Unknown] Allergy/AdvReac Type Severity Reaction Status Date / Time Penicillins [PCN] Allergy Hives, RASH Verified 04/25/22 09:04 Family History Grandmother Breast cancer Aunt Breast cancer Father Diabetes Surgical History History of bilateral breast implants History of bilateral oophorectomy History of bladder surgery History of hysterectomy Status post bilateral breast reconstruction Status post bilateral mastectomy Social History Smoking Status: Former smoker alcohol intake: current substance use type: does not use additional social history: Does Not Take Aspirin Does Take Ibuprofen As Needed Vital Signs Vital Signs Vital Signs: 05/13/22 10:10 Temperature [Post Treatment] 97.0 F L Temperature [Pre Treatment] 97.0 F L Pulse Rate [Post Treatment] 73 Pulse Rate [Pre Treatment] 73 Respiratory Rate [Post Treatment] 16 Respiratory Rate [Pre Treatment] 16 Blood Pressure [Post Treatment] 111/68 Blood Pressure [Pre Treatment] 111/68 Physical Exam Const alert, oriented x3, no apparent distress and well nourished General Appearance: cooperative, comfortable, well kempt and well developed Orientation / Consciousness: awake, oriented to person, oriented to place and oriented to time HEENT normocephalic and head/scalp atraumatic Head and Scalp: normal to inspection, normocephalic and atraumatic External Ear: external ears normal Eyes PERRL and EOMs intact bilaterally General Eye: normal appearance of both eyes Resp normal respiratory effort, normal air movement, no retractions and no use of accessory muscles Effort and Inspection: able to speak in complete sentences Extremity no calf tenderness General Extremity: Negative for clubbing or cyanosis Neuro oriented x3, CN's II-XII intact bilaterally and moves all extremities Sensorium / Orientation: awake, alert, oriented to person, oriented to place andoriented to time Speech: speech normal Psych Appearance: grossly normal and appropriate Attitude: calm Activity / Motor Behavior: appropriate eye contact Speech: normal speech Mood & Affect: euthymic mood Thought Process: normal thought process Thought Content: normal thought content Attention / Concentration: attention grossly intact Debridement Note Debridement Note Post-Debridement Measurements and Additional Note: Post-Debridement Measurements/Treatment - Nurse 1 - General Ulcer Assessment Start: 04/28/22 08:19 Freq: Status: Active Protocol: JEANT Activity Type Activity Date Activity User E-sign Co-sign Detail Recorded Client Recorded Date Recorded By Document 04/28/22 08:25 ML [id number] 04/28/22 08:30 ML Document 05/05/22 08:37 DL [id number] 05/05/22 08:40 DL Document 05/12/22 08:46 AK [id number] 05/12/22 08:48 AK 04/28/22 05/05/22 05/12/22 08:25 08:37 08:46 - Today's Visit Information Type of service Initial Visit Follow-up Visit Follow-up Visit (Physician/TESTS SUPERINTENDENT (Physician/TESTS SUPERINTENDENT ) ) Arrival Mode Ambulatory Ambulatory Ambulatory Transfer Assistance None None Patient Identification Verified (Name & Yes Yes Yes ) Patient Requires Transmission-Based No No No Precautions Safety Precautions NA NA Vital Signs Temperature (97.8 F-99.1 F) 97.4 F L 97.5 F L 97.3 F L Temperature Source Temporal Temporal Temporal Pulse Rate (60-100) 71 69 71 Pulse Location Monitor Monitor Monitor Respiratory Rate (12-18) 16 18 Respiratory rate source Observation Observation Blood Pressure (90/60-120/80) 131/85 H 118/49 L 124/73 H Blood Pressure Mean 100 72 90 Source Monitor Monitor Monitor Position Sitting Blood Pressure Location Left Arm History Since Last Visit- (Skip if this is Patient's initial visit) Have you changed medications since your No No No last visit? Any new allergies or adverse reactions No No No Had a fall/change in ADL's that may No No No increase risk of falls Signs or symptoms of abuse and/or No No No neglect since last visit Have you been in the hospital since your No No No last visit? Has dressing in place as prescribed Yes Yes Yes Has compression in place as prescribed N/A N/A N/A Has offloadiing in place as prescribed N/A N/A N/A Experienced any changes in pain level or No No No management Left Footwear Regular Shoe Regular Shoe Right Footwear Regular Shoe Regular Shoe Pain Scale: 0-10 Numeric Is Patient Pain Free? Yes Yes No WC - Nurse 1 - General Ulcer Measurement Start: 04/28/22 08:19 Freq: Status: Active Protocol: Activity Type Activity Date Activity User E-sign Co-sign Detail Recorded Client Recorded Date Recorded By Document 04/28/22 08:25 ML [id number] 04/28/22 08:30 ML Document 05/05/22 08:37 DL [id number] 05/05/22 08:40 DL Document 05/12/22 08:46 AK [id number] 05/12/22 08:48 AK 04/28/22 05/05/22 05/12/22 08:25 08:37 08:46 Wound Center Nurse 1 #2 L BREAST -Current Size (cm) - Length 0.1 8.5 -Current Size (cm) - Width 0.1 2.6 -Current Size (cm) - Depth 0.1 0.1 -Total Square Cm 0.01 22.10 -Photo Taken Yes -Exudate Amt Small Medium -Exudate Type Sanguineous Serosanguineous -Wound Margin Distinct, Distinct, Outline Outline Attached Attached -Granulation Amt None Present (0 None Present (0 %) %) -Necrosis Amt Large (67-100%) -Necrotic Tissue Type Adherent Slough Eschar -Structure Exposed N/A -Texture (Tarah-wound Skin Appearance) Assessed Scarring -Moisture (Tarah-wound Skin Appearance) Assessed Dry/Scaly -Color (Tarah-wound Skin Appearance) Assessed No Abnormality -Temperature (Tarah-wound Skin No Abnormality No Abnormality Appearance) (Pt Warm) (Pt Warm) -Tenderness on Palpation (Tarah-wound Yes No Skin Appearance) -Ulcer Cleansing Soap and Water Soap and Water -Foul Odor after Cleansing No No -Anesthetic Used 4% Lidocaine 5% Lidocaine Solution Gel #1 R BREAST -Combined with other wound No -Current Size (cm) - Length 0.1 9.5 2.2 -Current Size (cm) - Width 0.1 4 4.2 -Current Size (cm) - Depth 0.1 0.1 0.1 -Total Square Cm 0.01 38.0 9.24 -Date of Last Picture (Recall this 05/12/22 field) -Photo Taken Yes Yes -Tunneling No -Undermining/Tunneling No -Circular Undermining No -Change in Wound Grade/Stage No -Exudate Amt Small Medium Large -Exudate Type Serosanguineous Serosanguineous -Wound Margin Distinct, Distinct, Distinct, Outline Outline Outline Attached Attached Attached -Granulation Amt None Present (0 None Present (0 %) %) -Granulation Quality N/A -Slough/Fibrin Yes -Necrosis Amt None Present (0 Large (67-100%) Large (67-100%) %) -Necrotic Tissue Type Adherent Slough Adherent Slough -Structure Exposed N/A N/A -Texture (Tarah-wound Skin Appearance) Assessed Scarring No Abnormality, Assessed -Moisture (Tarah-wound Skin Appearance) Assessed No Abnormality No Abnormality, Assessed -Color (Tarah-wound Skin Appearance) Assessed No Abnormality No Abnormality, Assessed -Temperature (Tarah-wound Skin No Abnormality No Abnormality No Abnormality Appearance) (Pt Warm) (Pt Warm) (Pt Warm) -Tenderness on Palpation (Tarah-wound Yes No No Skin Appearance) -Ulcer Cleansing Soap and Water Soap and Water Soap and Water -Foul Odor after Cleansing No No No -Anesthetic Used 4% Lidocaine 5% Lidocaine 4% Lidocaine Solution Gel Solution WC - Nurse 2 - General Ulcer CM Notes Start: 04/28/22 08:19 Freq: Status: Active Protocol: Activity Type Activity Date Activity User E-sign Co-sign Detail Recorded Client Recorded Date Recorded By Document 04/28/22 08:45 [id number] 04/28/22 08:47 Document 05/05/22 08:54 [id number] 05/05/22 09:06 Document 05/12/22 09:04 [id number] 05/12/22 09:07 Edit Result 05/12/22 09:04 (1) [id number] 05/12/22 09:09 (1) #2 L BREAST - Correct Patient => No - Correct Side, Site, Position => No - Correct Procedure => No - Procedure Performed => No - Post Debridement (cm) - Length => 1.5 - Post Debridement (cm) - Width => 1.5 - Post Debridement (cm) - Depth => 0.1 - Total Square (Post) (cm) => 2.25 - Area of Debridement (cm) - Length => 1.5 - Area of Debridement (cm) - Width => 1.5 - Total Square (Area) (cm) => 2.25 - Wound/Ulcer Outcome => Not Healed - Debridement - Subq, 20sq cm => No #1 R BREAST - Post Debridement (cm) - Length => 2.5 - Post Debridement (cm) - Width => 4.2 - Post Debridement (cm) - Depth => 0.3 - Total Square (Post) (cm) => 10.50 - Area of Debridement (cm) - Length => 2.5 - Area of Debridement (cm) - Width => 4.2 - Total Square (Area) (cm) => 10.50 - Debridement - Subq, 20sq cm => No 04/28/22 05/05/22 05/12/22 08:45 08:54 09:04 Wound Center Nurse 2 #2 L BREAST -Correct Patient No No -Correct Side, Site, Position No No -Correct Procedure No No -Procedure Performed No No -Post Debridement (cm) - Length 1.5 -Post Debridement (cm) - Width 1.5 -Post Debridement (cm) - Depth 0.1 -Total Square (Post) (cm) 2.25 -Area of Debridement (cm) - Length 1.5 -Area of Debridement (cm) - Width 1.5 -Total Square (Area) (cm) 2.25 -Wound/Ulcer Outcome Not Healed -Debridement - Subq, 20sq cm No #1 R BREAST -Time 09:05 -Correct Patient Yes No -Correct Side, Site, Position Yes No -Correct Procedure Yes No -Procedure Performed Yes No -Type of Procedure Debridement -Clinical Debridement Subcutaneous -Tissue Removed Subcutaneous -Post Debridement (cm) - Length 0.5 2.5 -Post Debridement (cm) - Width 1.0 4.2 -Post Debridement (cm) - Depth 0.5 0.3 -Total Square (Post) (cm) 0.50 10.50 -Area of Debridement (cm) - Length 0.5 2.5 -Area of Debridement (cm) - Width 1.0 4.2 -Total Square (Area) (cm) 0.50 10.50 -Tunneling No -Undermining/Tunneling No -Circular Undermining No -Wound/Ulcer Outcome Not Healed Not Healed -Ulcer Cleansing Rinsed/ Irrigated with Saline -Foul Odor after Cleansing No -Bioengineered Tissue No -Bleeding Controlled with Pressure -Treatment Response Procedure Tolerated Well -Offloading No -Debridement - Subq, 1st 20sq cm Yes No Pain Scale: 0-10 Numeric Is Patient Pain Free? Yes Yes Yes - Nurse 3 - General Ulcer D/C NN Start: 04/28/22 08:19 Freq: Status: Active Protocol: Activity Type Activity Date Activity User E-sign Co-sign Detail Recorded Client Recorded Date Recorded By Document 05/05/22 09:16 [facility] [id number] 05/05/22 09:16 BMF Document 05/12/22 09:16 ML [id number] 05/12/22 09:17 ML 05/05/22 05/12/22 09:16 09:16 Wound Care Center Nurse 3 #2 L BREAST -Ulcer Cleansing Rinsed/ Irrigated with Saline -Primary Dressing Applied Aquacel AG 4x4 -Primary Dressing Covered/Secured with Dry Gauze & Roll Gauze, Secured with Tape -Aquacel AG 4x4 1 #1 R BREAST -Ulcer Cleansing Rinsed/ Rinsed/ Irrigated with Irrigated with Saline Saline -Foul Odor after Cleansing No No -Primary Dressing Applied Aquacel AG 4x4 Aquacel AG 4x4 -Other Dressing abd -Primary Dressing Covered/Secured with Dry Gauze & Roll Gauze, Secured with Tape -Aquacel AG 4x4 1 0 Treatment Response Procedure Tolerated Well Pain Scale: 0-10 Numeric Is Patient Pain Free? Yes Yes - Visit Discharge Discharge Condition Stable Ambulatory Status Ambulatory Transportation Private Auto Notes: atb oint to nipple area Lab / Micro Data Micro: Microbiology 05/12/22 09:00 Wound Abcess - Breast Gram Stain - Final 05/12/22 09:00 Wound Abcess - Breast Wound Culture - Preliminary Coag Negative Staph Assessment/Plan Assessment/Plan (1) Other complications of skin graft (allograft) (autograft): CODE(S): T86.828 - Other complications of skin graft (allograft) (autograft) (2) Status post bilateral mastectomy: CODE(S): Z90.13 - Acquired absence of bilateral breasts and nipples (3) Status post bilateral breast reconstruction: CODE(S): Z98.890 - Other specified postprocedural states (4) History of bilateral breast implants: CODE(S): Z98.82 - Breast implant status (5) Prophylactic breast removal: CODE(S): Z40.01 - Encounter for prophylactic removal of breast (6) Acquired absence of bilateral breasts and nipples: CODE(S): Z90.13 - Acquired absence of bilateral breasts and nipples (7) Genetic 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: CODE(S): Z15.01 - 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: CODE(S): Z15.89 - Genetic susceptibility to other disease; Z15.01 - Genetic 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; Z15.09 - Genetic susceptibility to other malignant neoplasm (9) Cancer phobia: CODE(S): F40.298 - Other specified phobia (10) Family history of breast cancer: CODE(S): Z80.3 - Family history of malignant neoplasm of breast (11) Disproportion of reconstructed breast: CODE(S): N65.1 - Disproportion of reconstructed breast (12) Acute postoperative anemia due to expected blood loss: CODE(S): D62 - Acute posthemorrhagic anemia (13) Former smoker: CODE(S): Z87.891 - Personal history of nicotine dependence PLAN: Plan This 46-year-old female presented today for her initial hyperbaric oxygen therapy session. She has been approved for hyperbaric oxygen treatments due to compromise of bilateral nipple skin grafts following prophylactic mastectomies with immediate reconstruction. A discussion was undertaken with the patient prior to entry into the hyperbaric oxygen chamber. The indications and risks ofhyperbaric oxygen therapy were discussed with the patient, and it was ascertained that she has been thoroughly briefed on the indications and risks ofthe hyperbaric session, as well as the expected benefits. The patient was placed within the hyperbaric oxygen chamber, and hyperbaric oxygen therapy was initiated. In less than 10 minutes, and prior to full pressurization, the patient developed severe left ear pain. As result, the hyperbaric oxygen therapy session was discontinued, and the patient was brought to normal atmosphere. Upon removal from the hyperbaric chamber, otoscopy revealed erythema of the tympanic membranes. A discussion was undertaken with the patient, and the decision was made to arrange for an ENT consultation where it is anticipated that she will benefit from placement of myringotomy tubes. Once placed, hyperbaric oxygen therapy sessions will be recommenced. The patient wasdischarged in good condition. Total time: 15 minutes 05/13/22 1532 <Electronically signed by Edd Alvarez MD> Cosigner Signature (if applicable): CC: ~ Signed [facility] Work Phone: [phone] Progress note Author Rachel Beard [facility] May 12, 2022 4:56pm Note Date/Time May 12, 2022 2:41pm [facility] [address] [place] [address] Progress Note - Wound Care 05/12/22 1440 MR#: [id number] Acct: [id number] Name: IRENE LOPEZ Rep #:[id number] : 1975 46 From: Rachel gibson BUILDING MAINTENANCE CUSTODIAN BUILDING MAINTENANCE CUSTODIAN-C PCP: Dr. Amanda Osborne MD Statu s:REG RCR Location: History of Present Illness Date of Service: 05/12/22 Chief Complaint: Compromised bilateral nipple skin grafts after mastectomy with immediate reconstruction and placement of free nipple graft. History of Wound: 46 year old female who had a recent surgery on 04/11/22 where she underwent Prophylactic mastectomy right breast and Immediate right breast reconstruction with placement prepectoral cohesive gel implant (700 ml) and placement FlexHD acellular dermal matrix graft (23 x 26 cm) and mastopexy and Right nipple reconstruction with placement of free nipple graft and Prophylacticmastectomy left breast and Immediate left breast reconstruction with placement prepectoral cohesive gel implant (700 ml) and placement FlexHD acellular dermal matrix graft (23 x 26 cm) and mastopexy and Left nipple reconstruction with placement of free nipple graft. She was discharged from the hospital on 04/14/22. Pathology of the right breast showed involutional change with mild non- proliferative fibrocystic change. Left breast showed involutional change withmild non-proliferative fibrocystic change and focal benign microcalcifications. She has developed some compromise of the nipple grafts, the right being worse than the left. Nipples show good adherence but the color has darkened. Right nipple with 60 % take and the left nipple with 80% take, both with good adherence and some vascular ingrowth. Her incisions are dry and intact. Progress of Wound: Right and left nipple grafts with compromise. The areas of compromise are dark in color. She started to have drainage from the right Tzone over the past couple days. Left Tzone has a small separation. She has been approved for HBO and starts tomorrow. She has an area on the right vertical incision with a small area of epidermolysis that is approximately 1 cm with dry scab in place and is stable with healthy dermis is note. Sutures from around the nipple removed that have not dissolved. Objective Data Objective Data Vital Signs: Vital Signs Temp Pulse Resp BP 97.3 F L 71 18 124/73 H 05/12/22 08:46 05/12/22 08:46 05/05/22 08:37 05/12/22 08:46 Lab / Micro Data Micro: Microbiology 05/12/22 09:00 Wound Abcess - Breast Gram Stain - Final Charges/Coding Procedures Integumentary 111xxx-113xx: 87850 Global Visit Debridement Note Debridement Note No debridement was completed: No debridement was completed today Post-Debridement Measurements and Additional Note: Post-Debridement Measurements/Treatment WC - Nurse 1 - General Ulcer Assessment Start: 04/28/22 08:19 Freq: Status: Active Protocol: HERNANDEZ Activity Type Activity Date Activity User E-sign Co-sign Detail Recorded Client Recorded Date Recorded By Document 04/28/22 08:25 ML [id number] 04/28/22 08:30 ML Document 05/05/22 08:37 DL [id number] 05/05/22 08:40 DL Document 05/12/22 08:46 AK [id number] 05/12/22 08:48 AK 04/28/22 05/05/22 05/12/22 08:25 08:37 08:46 - Today's Visit Information Type of service Initial Visit Follow-up Visit Follow-up Visit (Physician/TESTS SUPERINTENDENT (Physician/TESTS SUPERINTENDENT ) ) Arrival Mode Ambulatory Ambulatory Ambulatory Transfer Assistance None None Patient Identification Verified (Name & Yes Yes Yes ) Patient Requires Transmission-Based No No No Precautions Safety Precautions NA NA Vital Signs Temperature (97.8 F-99.1 F) 97.4 F L 97.5 F L 97.3 F L Temperature Source Temporal Temporal Temporal Pulse Rate (60-100) 71 69 71 Pulse Location Monitor Monitor Monitor Respiratory Rate (12-18) 16 18 Respiratory rate source Observation Observation Blood Pressure (90/60-120/80) 131/85 H 118/49 L 124/73 H Blood Pressure Mean (mm Hg) 100 72 90 Source Monitor Monitor Monitor Position Sitting Blood Pressure Location Left Arm History Since Last Visit- (Skip if this is Patient's initial visit) Have you changed medications since your No No No last visit? Any new allergies or adverse reactions No No No Had a fall/change in ADL's that may No No No increase risk of falls Signs or symptoms of abuse and/or No No No neglect since last visit Have you been in the hospital since your No No No last visit? Has dressing in place as prescribed Yes Yes Yes Has compression in place as prescribed N/A N/A N/A Has offloadiing in place as prescribed N/A N/A N/A Experienced any changes in pain level or No No No management Left Footwear Regular Shoe Regular Shoe Right Footwear Regular Shoe Regular Shoe Pain Scale: 0-10 Numeric Is Patient Pain Free? Yes Yes No WC - Nurse 1 - General Ulcer Measurement Start: 04/28/22 08:19 Freq: Status: Active Protocol: Activity Type Activity Date Activity User E-sign Co-sign Detail Recorded Client Recorded Date Recorded By Document 04/28/22 08:25 ML [id number] 04/28/22 08:30 ML Document 05/05/22 08:37 DL [id number] 05/05/22 08:40 DL Document 05/12/22 08:46 AK [id number] 05/12/22 08:48 AK 04/28/22 05/05/22 05/12/22 08:25 08:37 08:46 Wound Center Nurse 1 #2 L BREAST -Current Size (cm) - Length 0.1 8.5 -Current Size (cm) - Width 0.1 2.6 -Current Size (cm) - Depth 0.1 0.1 -Total Square Cm 0.01 22.10 -Photo Taken Yes -Exudate Amt Small Medium -Exudate Type Sanguineous Serosanguineous -Wound Margin Distinct, Distinct, Outline Outline Attached Attached -Granulation Amt None Present (0 None Present (0 %) %) -Necrosis Amt Large (67-100%) -Necrotic Tissue Type Adherent Slough Eschar -Structure Exposed N/A -Texture (Atrah-wound Skin Appearance) Assessed Scarring -Moisture (Tarah-wound Skin Appearance) Assessed Dry/Scaly -Color (Tarah-wound Skin Appearance) Assessed No Abnormality -Temperature (Tarah-wound Skin No Abnormality No Abnormality Appearance) (Pt Warm) (Pt Warm) -Tenderness on Palpation (Tarah-wound Yes No Skin Appearance) -Ulcer Cleansing Soap and Water Soap and Water -Foul Odor after Cleansing No No -Anesthetic Used 4% Lidocaine 5% Lidocaine Solution Gel #1 R BREAST -Combined with other wound No -Current Size (cm) - Length 0.1 9.5 2.2 -Current Size (cm) - Width 0.1 4 4.2 -Current Size (cm) - Depth 0.1 0.1 0.1 -Total Square Cm 0.01 38.0 9.24 -Date of Last Picture (Recall this 05/12/22 field) -Photo Taken Yes Yes -Tunneling No -Undermining/Tunneling No -Circular Undermining No -Change in Wound Grade/Stage No -Exudate Amt Small Medium Large -Exudate Type Serosanguineous Serosanguineous -Wound Margin Distinct, Distinct, Distinct, Outline Outline Outline Attached Attached Attached -Granulation Amt None Present (0 None Present (0 %) %) -Granulation Quality N/A -Slough/Fibrin Yes -Necrosis Amt None Present (0 Large (67-100%) Large (67-100%) %) -Necrotic Tissue Type Adherent Slough Adherent Slough -Structure Exposed N/A N/A -Texture (Tarah-wound Skin Appearance) Assessed Scarring No Abnormality, Assessed -Moisture (Tarah-wound Skin Appearance) Assessed No Abnormality No Abnormality, Assessed -Color (Tarah-wound Skin Appearance) Assessed No Abnormality No Abnormality, Assessed -Temperature (Tarah-wound Skin No Abnormality No Abnormality No Abnormality Appearance) (Pt Warm) (Pt Warm) (Pt Warm) -Tenderness on Palpation (Tarah-wound Yes No No Skin Appearance) -Ulcer Cleansing Soap and Water Soap and Water Soap and Water -Foul Odor after Cleansing No No No -Anesthetic Used 4% Lidocaine 5% Lidocaine 4% Lidocaine Solution Gel Solution WC - Nurse 2 - General Ulcer CM Notes Start: 04/28/22 08:19 Freq: Status: Active Protocol: Activity Type Activity Date Activity User E-sign Co-sign Detail Recorded Client Recorded Date Recorded By Document 04/28/22 08:45 [id number] 04/28/22 08:47 Document 05/05/22 08:54 [id number] 05/05/22 09:06 JF Document 05/12/22 09:04 [id number] 05/12/22 09:07 JF Edit Result 05/12/22 09:04 JF (1) [id number] 05/12/22 09:09 JF (1) #2 L BREAST - Correct Patient => No - Correct Side, Site, Position => No - Correct Procedure => No - Procedure Performed => No - Post Debridement (cm) - Length => 1.5 - Post Debridement (cm) - Width => 1.5 - Post Debridement (cm) - Depth => 0.1 - Total Square (Post) (cm) => 2.25 - Area of Debridement (cm) - Length => 1.5 - Area of Debridement (cm) - Width => 1.5 - Total Square (Area) (cm) => 2.25 - Wound/Ulcer Outcome => Not Healed - Debridement - Subq, 20sq cm => No #1 R BREAST - Post Debridement (cm) - Length => 2.5 - Post Debridement (cm) - Width => 4.2 - Post Debridement (cm) - Depth => 0.3 - Total Square (Post) (cm) => 10.50 - Area of Debridement (cm) - Length => 2.5 - Area of Debridement (cm) - Width => 4.2 - Total Square (Area) (cm) => 10.50 - Debridement - Subq, 20sq cm => No 0205/05/22 05/12/22 08:45 08:54 09:04 Wound Center Nurse 2 #2 L BREAST -Correct Patient No No -Correct Side, Site, Position No No -Correct Procedure No No -Procedure Performed No No -Post Debridement (cm) - Length 1.5 -Post Debridement (cm) - Width 1.5 -Post Debridement (cm) - Depth 0.1 -Total Square (Post) (cm) 2.25 -Area of Debridement (cm) - Length 1.5 -Area of Debridement (cm) - Width 1.5 -Total Square (Area) (cm) 2.25 -Wound/Ulcer Outcome Not Healed -Debridement - Subq, 1st 20sq cm No #1 R BREAST -Time 09:05 -Correct Patient Yes No -Correct Side, Site, Position Yes No -Correct Procedure Yes No -Procedure Performed Yes No -Type of Procedure Debridement -Clinical Debridement Subcutaneous -Tissue Removed Subcutaneous -Post Debridement (cm) - Length 0.5 2.5 -Post Debridement (cm) - Width 1.0 4.2 -Post Debridement (cm) - Depth 0.5 0.3 -Total Square (Post) (cm) 0.50 10.50 -Area of Debridement (cm) - Length 0.5 2.5 -Area of Debridement (cm) - Width 1.0 4.2 -Total Square (Area) (cm) 0.50 10.50 -Tunneling No -Undermining/Tunneling No -Circular Undermining No -Wound/Ulcer Outcome Not Healed Not Healed -Ulcer Cleansing Rinsed/ Irrigated with Saline -Foul Odor after Cleansing No -Bioengineered Tissue No -Bleeding Controlled with Pressure -Treatment Response Procedure Tolerated Well -Offloading No -Debridement - Subq, 1st 20sq cm Yes No Pain Scale: 0-10 Numeric Is Patient Pain Free? Yes Yes Yes WC - Nurse 3 - General Ulcer D/C NN Start: 04/28/22 08:19 Freq: Status: Active Protocol: Activity Type Activity Date Activity User E-sign Co-sign Detail Recorded Client Recorded Date Recorded By Document 05/05/22 09:16 [facility] [id number] 05/05/22 09:16 BMF Document 05/12/22 09:16 ML [id number] 05/12/22 09:17 ML 05/05/22 05/12/22 09:16 09:16 Wound Care Center Nurse 3 #2 L BREAST -Ulcer Cleansing Rinsed/ Irrigated with Saline -Primary Dressing Applied Aquacel AG 4x4 -Primary Dressing Covered/Secured with Dry Gauze & Roll Gauze, Secured with Tape -Aquacel AG 4x4 1 #1 R BREAST -Ulcer Cleansing Rinsed/ Rinsed/ Irrigated with Irrigated with Saline Saline -Foul Odor after Cleansing No No -Primary Dressing Applied Aquacel AG 4x4 Aquacel AG 4x4 -Other Dressing abd -Primary Dressing Covered/Secured with Dry Gauze & Roll Gauze, Secured with Tape -Aquacel AG 4x4 1 0 Treatment Response Procedure Tolerated Well Pain Scale: 0-10 Numeric Is Patient Pain Free? Yes Yes WC - Visit Discharge Discharge Condition Stable Ambulatory Status Ambulatory Transportation Private Auto Notes: atb oint to nipple area Assessment/Plan Assessment/Plan (1) Other complications of skin graft (allograft) (autograft): CODE(S): T86.828 - Other complications of skin graft (allograft) (autograft) (2) Status post bilateral mastectomy: CODE(S): Z90.13 - Acquired absence of bilateral breasts and nipples (3) Status post bilateral breast reconstruction: CODE(S): Z98.890 - Other specified postprocedural states (4) History of bilateral breast implants: CODE(S): Z98.82 - Breast implant status (5) Prophylactic breast removal: CODE(S): Z40.01 - Encounter for prophylactic removal of breast (6) Acquired absence of bilateral breasts and nipples: CODE(S): Z90.13 - Acquired absence of bilateral breasts and nipples (7) Genetic 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: CODE(S): Z15.01 - 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: CODE(S): Z15.89 - Genetic susceptibility to other disease; Z15.01 - Genetic 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; Z15.09 - Genetic susceptibility to other malignant neoplasm (9) Cancer phobia: CODE(S): F40.298 - Other specified phobia (10) Family history of breast cancer: CODE(S): Z80.3 - Family history of malignant neoplasm of breast (11) Disproportion of reconstructed breast: CODE(S): N65.1 - Disproportion of reconstructed breast (12) Acute postoperative anemia due to expected blood loss: CODE(S): D62 - Acute posthemorrhagic anemia (13) Former smoker: CODE(S): Z87.891 - Personal history of nicotine dependence PLAN: Plan Patient evaluated at the wound healing center. She has been approved for HBOT which starts tomorrow. She had some drainage from the right breast Tzone over the weekend. There is minor separation at the left tzone. Wound care - Place silver alginate dressing to the tzones bilaterally daily. A wound culture was obtained today.? Will start her on Levaquin today because of her having implants. We may need tochange the antibiotic once the culture sensitivities are back. Her chest x-ray and EKG were both normal. Continue to keep head elevated and continue lifting restriction. Continue to wear compression bra/surgical bra or ANAI wraps. Continue antibiotic ointment to the nipple grafts daily. At discharge, her Hgb was 8.6.?Her recheck Hgb 11.5 on 04/23/22. ? Continue Iron supplementation. ? Follow up one week to see me. Call or come in sooner if develop any concerns. ?? 05/12/22 9146 <Electronically signed by Rachel Beard NP BUILDING MAINTENANCE CUSTODIAN-C> Cosigner Signature (if applicable): CC: ~ Signed [facility] Work Phone: 1(184) 845-580302-22-2023 NoteAccession #: [id number] Date of Procedure: 05/07/2022 Pathologist: [facility], Cytology Date Reported: 05/15/2022 Date Received: 05/07/2022 Submitting Physician: ZENAIDA SILVA MD Attending Physician: ZEANIDA SILVA MD FINAL CYTOLOGICAL INTERPRETATION A. THINPREP PAP VAGINAL: Specimen Adequacy: SATISFACTORY FOR EVALUATION. General Categorization: NEGATIVE FOR INTRAEPITHELIAL LESION OR MALIGNANCY. HIGH RISK HPV TEST RESULT: HPV GENOTYPE 16 NEGATIVE HPV GENOTYPE 18 NEGATIVE HPV GENOTYPE OTHER NEGATIVE Reference Range: Negative QC review performed at [facility], [address] [place] [address] Testing for high-risk (HR) type of human [...] verified by the Molecular Diagnostic Laboratory at [facility]. The lab is certified under the Clinical Laboratory Amendments of 1988 (CLIA 88) as qualified to perform high complexity clinical laboratory testing. This specimen has been analyzed by the ThinPrep Imaging System ([employer] an automated imaging and review system, which assists the laboratory in evaluating cells on ThinPrep Pap tests. Following automated imaging, selected pierce from every slide were reviewed by a gripper installer and/or pathologist. Electronically Signed Out By [facility], Cytology//IK/JMD By the signature on this report, the individual or group listed as making the Final Interpretation/Diagnosis certifies that they have reviewed this case. Diagnostic interpretation performed at [facility] [address] [place] [address] Educational Note: Cervical cytology is a screening [...] History Date of Last Menstrual Period: Hysterectomy 2019 Other Clinical Conditions: COTEST HPV(Genotype) except for ASC-H, HSIL, Carcinoma - Include HPV Genotype testing Annual Clinical Diagnosis History: Pap test, as part of routine gynecological examination - (Z01.419); Vaginal Papanicolaou smear - (Z12.72) Source of Specimen A: THINPREP PAP VAGINAL [facility] Department of Pathology [address] [place], [place] [address]RRPascack Valley Medical CenterComment on above:Performed By: #### C #### [facility] Cytology [address] [facility] [id number] Progress note Author Rachel Beard [facility] May 06, 2022 11:19am Note Date/Time May 05, 2022 10:20am [facility] [address] [place] [address] Progress Note - Wound Care 05/05/22 1020 MR#: [id number] Acct: [id number] Name: IRENE LOPEZ Rep #:[id number] : 1975 46 From: Rachel gibson BUILDING MAINTENANCE CUSTODIAN BUILDING MAINTENANCE CUSTODIAN-C PCP: Dr. Amanda Osborne MD Statu s:REG RCR Location: History of Present Illness Date of Service: 05/05/22 Chief Complaint: Compromised bilateral nipple skin grafts after mastectomy with immediate reconstruction and placement of free nipple graft. History of Wound: 46 year old female who had a recent surgery on 04/11/22 where she underwent Prophylactic mastectomy right breast and Immediate right breast reconstruction with placement prepectoral cohesive gel implant (700 ml) and placement FlexHD acellular dermal matrix graft (23 x 26 cm) and mastopexy and Right nipple reconstruction with placement of free nipple graft and Prophylacticmastectomy left breast and Immediate left breast reconstruction with placement prepectoral cohesive gel implant (700 ml) and placement FlexHD acellular dermal matrix graft (23 x 26 cm) and mastopexy and Left nipple reconstruction with placement of free nipple graft. She was discharged from the hospital on 04/14/22. Pathology of the right breast showed involutional change with mild non- proliferative fibrocystic change. Left breast showed involutional change withmild non-proliferative fibrocystic change and focal benign microcalcifications. She has developed some compromise of the nipple grafts, the right being worse than the left. Nipples show good adherence but the color has darkened. Right nipple with 60 % take and the left nipple with 80% take, both with good adherence and some vascular ingrowth. Her incisions are dry and intact. Progress of Wound: Right and left nipple grafts with compromise. The areas of compromise are dark in color. No drainage. She has an area on the right vertical incision with a small area of epidermolysis that is approximately 1 cm with dry scab in place and is stable with healthy dermis is note. Removed the remaining sutures. Right Tzone has a small area of separation. Still waiting for HBO to be approved. Objective Data Objective Data Vital Signs: Vital Signs Temp Pulse Resp BP 97.5 F L 69 18 118/49 L 05/05/22 08:37 05/05/22 08:37 05/05/22 08:37 05/05/22 08:37 Charges/Coding Procedures Integumentary 111xxx-113xx: [id number] Global Visit Physical Exam Const alert, oriented x3 and no apparent distress HEENT normocephalic Face and Sinus: normal facial exam Eyes General Eye: normal appearance of both eyes Neck full ROM Resp normal respiratory effort and normal air movement Effort and Inspection: able to speak in complete sentences Cardio regular rate Back/Spine normal ROM Extremity full ROM, normal capillary refill and no pedal edema Skin Skin Narrative: Incisions and sutures are dry and intact. She has developed some compromise of the nipple grafts, the right being worse than the left.? Nipples show good adherence but the color has darkened.? Right nipple with 60 % take and the left nipple with 80% take, both with good adherence and some vascular ingrowth. No drainage present. She has an area on the right vertical incision with a small area of epidermolysis that is approximately 1 cm with dry scab in place and is stable with healthy dermis is present. Removed remaining sutures. She has a small area of separation on the right Tzone. Neuro oriented x3 and moves all extremities Speech: speech normal Psych mental status grossly normal, thought process normal, cooperative and affect normal Debridement Note Debridement Note No debridement was completed: No debridement was completed today Post-Debridement Measurements and Additional Note: Post-Debridement Measurements/Treatment ANGY - Nurse 1 - General Ulcer Assessment Start: 04/28/22 08:19 Freq: Status: Active Protocol: WC.LOWEXT Activity Type Activity Date Activity User E-sign Co-sign Detail Recorded Client Recorded Date Recorded By Document 04/28/22 08:25 ML [id number] 04/28/22 08:30 ML Document 05/05/22 08:37 DL [id number] 05/05/22 08:40 DL 04/28/22 05/05/22 08:25 08:37 WC - Today's Visit Information Type of service Initial Visit Follow-up Visit (Physician/TESTS SUPERINTENDENT ) Arrival Mode Ambulatory Ambulatory Transfer Assistance None None Patient Identification Verified (Name & Yes Yes ) Patient Requires Transmission-Based No No Precautions Safety Precautions NA Vital Signs Temperature (97.8 F-99.1 F) 97.4 F L 97.5 F L Temperature Source Temporal Temporal Pulse Rate (60-100) 71 69 Pulse Location Monitor Monitor Respiratory Rate (12-18) 16 18 Respiratory rate source Observation Observation Blood Pressure (90/60-120/80) 131/85 H 118/49 L Blood Pressure Mean (mm Hg) 100 72 Source Monitor Monitor Position Sitting Blood Pressure Location Left Arm History Since Last Visit- (Skip if this is Patient's initial visit) Have you changed medications since your No No last visit? Any new allergies or adverse reactions No No Had a fall/change in ADL's that may No No increase risk of falls Signs or symptoms of abuse and/or No No neglect since last visit Have you been in the hospital since your No No last visit? Has dressing in place as prescribed Yes Yes Has compression in place as prescribed N/A N/A Has offloadiing in place as prescribed N/A N/A Experienced any changes in pain level or No No management Left Footwear Regular Shoe Right Footwear Regular Shoe Pain Scale: 0-10 Numeric Is Patient Pain Free? Yes Yes - Nurse 1 - General Ulcer Measurement Start: 04/28/22 08:19 Freq: Status: Active Protocol: Activity Type Activity Date Activity User E-sign Co-sign Detail Recorded Client Recorded Date Recorded By Document 04/28/22 08:25 ML [id number] 04/28/22 08:30 ML Document 05/05/22 08:37 DL [id number] 05/05/22 08:40 DL 04/28/22 05/05/22 08:25 08:37 Wound Center Nurse 1 #2 L BREAST -Current Size (cm) - Length 0.1 8.5 -Current Size (cm) - Width 0.1 2.6 -Current Size (cm) - Depth 0.1 0.1 -Total Square Cm 0.01 22.10 -Photo Taken Yes -Exudate Amt Small Medium -Exudate Type Sanguineous Serosanguineous -Wound Margin Distinct, Distinct, Outline Outline Attached Attached -Granulation Amt None Present (0 None Present (0 %) %) -Necrosis Amt Large (67-100%) -Necrotic Tissue Type Adherent Slough Eschar -Structure Exposed N/A -Texture (Tarah-wound Skin Appearance) Assessed Scarring -Moisture (Tarah-wound Skin Appearance) Assessed Dry/Scaly -Color (Tarah-wound Skin Appearance) Assessed No Abnormality -Temperature (Tarah-wound Skin No Abnormality No Abnormality Appearance) (Pt Warm) (Pt Warm) -Tenderness on Palpation (Tarah-wound Yes No Skin Appearance) -Ulcer Cleansing Soap and Water Soap and Water -Foul Odor after Cleansing No No -Anesthetic Used 4% Lidocaine 5% Lidocaine Solution Gel #1 R BREAST -Current Size (cm) - Length 0.1 9.5 -Current Size (cm) - Width 0.1 4 -Current Size (cm) - Depth 0.1 0.1 -Total Square Cm 0.01 38.0 -Photo Taken Yes -Exudate Amt Small Medium -Exudate Type Serosanguineous -Wound Margin Distinct, Distinct, Outline Outline Attached Attached -Granulation Amt None Present (0 %) -Necrosis Amt None Present (0 Large (67-100%) %) -Necrotic Tissue Type Adherent Slough -Structure Exposed N/A -Texture (Tarah-wound Skin Appearance) Assessed Scarring -Moisture (Tarah-wound Skin Appearance) Assessed No Abnormality -Color (Tarah-wound Skin Appearance) Assessed No Abnormality -Temperature (Tarah-wound Skin No Abnormality No Abnormality Appearance) (Pt Warm) (Pt Warm) -Tenderness on Palpation (Tarah-wound Yes No Skin Appearance) -Ulcer Cleansing Soap and Water Soap and Water -Foul Odor after Cleansing No No -Anesthetic Used 4% Lidocaine 5% Lidocaine Solution Gel WC - Nurse 2 - General Ulcer CM Notes Start: 04/28/22 08:19 Freq: Status: Active Protocol: Activity Type Activity Date Activity User E-sign Co-sign Detail Recorded Client Recorded Date Recorded By Document 04/28/22 08:45 [id number] 04/28/22 08:47 Document 05/05/22 08:54 [id number] 05/05/22 09:06 04/28/22 05/05/22 08:45 08:54 Wound Center Nurse 2 #2 L BREAST -Correct Patient No -Correct Side, Site, Position No -Correct Procedure No -Procedure Performed No #1 R BREAST -Time 09:05 -Correct Patient Yes -Correct Side, Site, Position Yes -Correct Procedure Yes -Procedure Performed Yes -Type of Procedure Debridement -Clinical Debridement Subcutaneous -Tissue Removed Subcutaneous -Post Debridement (cm) - Length 0.5 -Post Debridement (cm) - Width 1.0 -Post Debridement (cm) - Depth 0.5 -Total Square (Post) (cm) 0.50 -Area of Debridement (cm) - Length 0.5 -Area of Debridement (cm) - Width 1.0 -Total Square (Area) (cm) 0.50 -Tunneling No -Undermining/Tunneling No -Circular Undermining No -Wound/Ulcer Outcome Not Healed -Ulcer Cleansing Rinsed/ Irrigated with Saline -Foul Odor after Cleansing No -Bioengineered Tissue No -Bleeding Controlled with Pressure -Treatment Response Procedure Tolerated Well -Offloading No -Debridement - Subq, 1st 20sq cm Yes Pain Scale: 0-10 Numeric Is Patient Pain Free? Yes Yes - Nurse 3 - General Ulcer D/C NN Start: 04/28/22 08:19 Freq: Status: Active Protocol: Activity Type Activity Date Activity User E-sign Co-sign Detail Recorded Client Recorded Date Recorded By Document 05/05/22 09:16 [facility] [id number] 05/05/22 09:16 [facility] 05/05/22 09:16 Wound Care Center Nurse 3 #1 R BREAST -Ulcer Cleansing Rinsed/ Irrigated with Saline -Foul Odor after Cleansing No -Primary Dressing Applied Aquacel AG 4x4 -Other Dressing abd -Aquacel AG 4x4 1 Treatment Response Procedure Tolerated Well Pain Scale: 0-10 Numeric Is Patient Pain Free? Yes - Visit Discharge Discharge Condition Stable Ambulatory Status Ambulatory Transportation Private Auto Notes: atb oint to nipple area Assessment/Plan Assessment/Plan (1) Other complications of skin graft (allograft) (autograft): CODE(S): T86.828 - Other complications of skin graft (allograft) (autograft) (2) Status post bilateral mastectomy: CODE(S): Z90.13 - Acquired absence of bilateral breasts and nipples (3) Status post bilateral breast reconstruction: CODE(S): Z98.890 - Other specified postprocedural states (4) History of bilateral breast implants: CODE(S): Z98.82 - Breast implant status (5) Prophylactic breast removal: CODE(S): Z40.01 - Encounter for prophylactic removal of breast (6) Acquired absence of bilateral breasts and nipples: CODE(S): Z90.13 - Acquired absence of bilateral breasts and nipples (7) Genetic 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: CODE(S): Z15.01 - 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: CODE(S): Z15.89 - Genetic susceptibility to other disease; Z15.01 - Genetic 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; Z15.09 - Genetic susceptibility to other malignant neoplasm (9) Cancer phobia: CODE(S): F40.298 - Other specified phobia (10) Family history of breast cancer: CODE(S): Z80.3 - Family history of malignant neoplasm of breast (11) Disproportion of reconstructed breast: CODE(S): N65.1 - Disproportion of reconstructed breast (12) Acute postoperative anemia due to expected blood loss: CODE(S): D62 - Acute posthemorrhagic anemia (13) Former smoker: CODE(S): Z87.891 - Personal history of nicotine dependence PLAN: Plan Patient evaluated at the wound healing center for hyperbaric oxygen therapy for her compromised nipple skin grafts bilaterally after mastectomy with breast reconstruction. Waiting for insurance approval. Her chest x-ray and EKG were both normal. Removed remaining sutures without difficulty. She has a small incision separation on the right Tzone. Will start Silver dressing daily to the area to help keep it dry.? Continue to keep head elevated and continue lifting restriction. Continue to wear compression bra/surgical bra or ANAI wraps. Continue antibiotic ointment to the nipple grafts daily. At discharge, her Hgb was 8.6.?Her recheck Hgb 11.5 on 04/23/22. ? Continue Iron supplementation. ? Once HBOT is approve will start her treatment. Follow up one week to see me. Call or come in sooner if develop any concerns. ?? 05/06/22 1119 <Electronically signed by Rachel Beard NP BUILDING MAINTENANCE CUSTODIAN-C> Cosigner Signature (if applicable): CC: ~ Signed [facility] Work Phone: [phone] Consult note Author Rachel Beard [facility] April 29, 2022 3:28pm Note Date/Time April 28, 2022 11:46am [facility] [address] [place] [address] Consultation - Wound Care HBO 04/28/22 1141 MR#: [id number] Acct: [id number] Name: IRENE LOPEZ Rep #:[id number] : 1975 46 From: Rachel Cabrera BUILDING MAINTENANCE CUSTODIAN BUILDING MAINTENANCE CUSTODIAN-C PCP: Dr. Amanda Osborne MD Statu s:REG RCR Location: PSN Assessment & Plan Assessment/Plan (1) Other complications of skin graft (allograft) (autograft): (2) Status post bilateral mastectomy: (3) Status post bilateral breast reconstruction: (4) Prophylactic breast removal: (5) Acquired absence of bilateral breasts and nipples: (6) Genetic 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: (7) Monoallelic mutation of DEISY gene: (8) Cancer phobia: (9) Family history of breast cancer: (10) Disproportion of reconstructed breast: (11) Acute postoperative anemia due to expected blood loss: (12) Former smoker: PLAN: Plan Patient evaluated at the wound healing center for hyperbaric oxygen therapy for her compromised nipple skin grafts bilaterally after mastectomy with breast reconstruction. She wound benefit from HBOT to help prevent further compromise at 2 SHARIF for 20 sessions. Will obtain a chest x-ray and EKG. Her tympanic membranes bilaterally are clear with no erythema or effusion. The treatment with HBO has been reviewed with her and she has been educated on the procedure of the treatments. Continue to keep head elevated and continue lifting restriction. Continue to wear compression bra/surgical bra or ANAI wraps. Continue antibiotic ointment to the nipple grafts daily. At discharge, her Hgb was 8.6.?Her recheck Hgb 11.5 on 04/23/22. ? Continue Iron supplementation. ? Removed the majority of the sutures from the vertical incision. Will consider removing the ones in the Tzone at her next visit. ? History of Present Illness Date of Service: 04/28/22 Chief Complaint: Compromised bilateral nipple skin grafts after mastectomy with immediate reconstruction and placement of free nipple graft. History of Wound: 46 year old female who had a recent surgery on 04/11/22 where she underwent Prophylactic mastectomy right breast and Immediate right breast reconstruction with placement prepectoral cohesive gel implant (700 ml) and placement FlexHD acellular dermal matrix graft (23 x 26 cm) and mastopexy and Right nipple reconstruction with placement of free nipple graft and Prophylacticmastectomy left breast and Immediate left breast reconstruction with placement prepectoral cohesive gel implant (700 ml) and placement FlexHD acellular dermal matrix graft (23 x 26 cm) and mastopexy and Left nipple reconstruction with placement of free nipple graft. She was discharged from the hospital on 04/14/22. Pathology of the right breast showed involutional change with mild non- proliferative fibrocystic change. Left breast showed involutional change withmild non-proliferative fibrocystic change and focal benign microcalcifications. She has developed some compromise of the nipple grafts, the right being worse than the left. Nipples show good adherence but the color has darkened. Right nipple with 60 % take and the left nipple with 80% take, both with good adherence and some vascular ingrowth. Her incisions are dry and intact. Progress of Wound: Right and left nipple grafts with compromise. The areas of compromise are dark in color. No drainage. She has and area on the right vertical incision with a small area of epidermolysis that is approximately 1 cm with dry scab in place and is stable with healthy dermis is note. Incisions are dry and intact. [facility] Medical History Acquired absence of bilateral breasts and nipples Alcohol use Allergies Cancer phobia Cancer phobia Disproportion of reconstructed breast Family history of breast cancer Former smoker Former smoker Frequent headaches Gastric reflux Genetic 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 Migraine headache Monoallelic mutation of DEISY gene Pneumonia PONV (postoperative nausea and vomiting) Prophylactic ovary removal Ptosis of both breasts Wears contact lenses Wears glasses Home Medications ibuprofen 800 mg tablet 800 mg PO Q12H PRN PRN Migraine Headache 03/28/22 [History Last Taken Unknown] omeprazole 40 mg capsule,delayed release 40 mg PO DAILY 03/28/22 [History Last Taken Unknown] sumatriptan succinate 100 mg tablet 100 mg PO PRN PRN MIGRAINE 03/28/22 [History Last Taken Unknown] valacyclovir 500 mg tablet 500 mg PO DAILY 03/28/22 [History Last Taken Unknown] L.acidophil,salivari-Bifido bifidum-Strep thermoph 175 mg capsule (Acidophilus Probiotic Blend) 1 cap PO DAILY 14 days #14 caps 04/14/22 [Rx Last Taken Unknown] cefadroxil 500 mg capsule 500 mg PO BID 14 days #28 caps 04/14/22 [Rx Last Taken Unknown] diazepam 5 mg tablet (Valium) 5 mg PO BID PRN muscle spasm 7 days #14 tabs 04/14/22 [Rx Last Taken Unknown] docusate sodium 100 mg capsule (Colace) 100 mg PO DAILY 30 days #30 caps 04/14/22 [Rx Last Taken Unknown] ondansetron 4 mg disintegrating tablet 4 mg PO Q8H PRN nausea and vomiting 5 days #15 tabs 04/14/22 [Rx Last Taken Unknown] oxycodone-acetaminophen 5 mg-325 mg tablet (Percocet) 1 tab PO Q4H PRN pain (scale score 7-10) 7 days #40 tabs 04/14/22 [Rx Last Taken Unknown] polysaccharide iron complex 150 mg iron capsule (Ferrex) 150 mg PO DAILY 30 days#30 caps 04/14/22 [Rx Last Taken Unknown] Allergy/AdvReac Type Severity Reaction Status Date / Time Penicillins [PCN] Allergy Hives, RASH Verified 04/25/22 09:04 Family History (Reviewed 04/29/22 @ 14:51 by Rachel Beard BUILDING MAINTENANCE CUSTODIAN, BUILDING MAINTENANCE CUSTODIAN-C) Grandmother Breast cancer Aunt Breast cancer Father Diabetes Surgical History History of bilateral breast implants History of bilateral oophorectomy History of bladder surgery History of hysterectomy Status post bilateral breast reconstruction Status post bilateral mastectomy Social History (Reviewed 04/29/22 @ 14:51 by Rachel Beard BUILDING MAINTENANCE CUSTODIAN, BUILDING MAINTENANCE CUSTODIAN-C) Smoking Status: Former smoker alcohol intake: current substance use type: does not use additional social history: Does Not Take Aspirin Does Take Ibuprofen As Needed ROS Constitutional Constitutional: Reports headache(s); Denies chills or fever(s) Eyes Eyes: Reports none ENT HEENT: Reports none Cardiovascular Cardiovascular: Denies chest pain, dyspnea or leg edema Respiratory/Chest Respiratory/Chest: Reports none Gastrointestinal Gastrointestinal: Denies abdominal pain, constipation, diarrhea, nausea or vomiting Genitourinary Genitourinary: Reports systems reviewed and no addt'l complaints, except as documented Musculoskeletal Musculoskeletal: Reports systems reviewed and no addt'l complaints, except as documented Integumentary Integumentary: Reports systems reviewed and no addt'l complaints, except as documented Neurologic Neurologic: Reports none Psychiatric Psychiatric: Reports none Endocrine Endocrinology: Reports none Hematologic/Lymphatic Hematologic/Lymphatic: Reports none Physical Exam Physical Exam Const alert, oriented x3 and no apparent distress HEENT normocephalic Face and Sinus: normal facial exam Tympanic Membrane: TM's normal bilaterally Eyes General Eye: normal appearance of both eyes Neck full ROM Resp normal respiratory effort, normal air movement and clear to auscultation bilaterally Effort and Inspection: able to speak in complete sentences Cardio regular rate and regular rhythm GI normal to inspection, nondistended, normoactive bowel sounds, soft to palpation and non-tender Back/Spine normal ROM Extremity full ROM, normal capillary refill and no pedal edema Skin Skin Narrative: Incisions and sutures are dry and intact. She has developed some compromise of the nipple grafts, the right being worse than the left.? Nipples show good adherence but the color has darkened.? Right nipple with 60 % take and the left nipple with 80% take, both with good adherence and some vascular ingrowth. No drainage present. She has an area on the right vertical incision with a small area of epidermolysis that is approximately 1 cm with dry scab in place and is stable with healthy dermis is present. Incisions and sutures are dry and intact. Removed some of the sutures on the vertical incision without difficulty. Neuro oriented x3, CN's II-XII intact bilaterally and moves all extremities Speech: speech normal Psych mental status grossly normal, thought process normal, cooperative and affect normal Nursing Assessment and Debridement Post-Debridement Measurements and Additional Note: Post-Debridement Measurements/Treatment - Nurse 1 - General Ulcer Assessment Start: 04/28/22 08:19 Freq: Status: Active Protocol: HERNANDEZ Activity Type Activity Date Activity User E-sign Co-sign Detail Recorded Client Recorded Date Recorded By Document 04/28/22 08:25 ML [id number] 04/28/22 08:30 ML 04/28/22 08:25 WC - Today's Visit Information Type of service Initial Visit Arrival Mode Ambulatory Transfer Assistance None Patient Identification Verified (Name & Yes ) Patient Requires Transmission-Based No Precautions Safety Precautions NA Vital Signs Temperature (97.8 F-99.1 F) 97.4 F L Temperature Source Temporal Pulse Rate (60-100 beats/min) 71 Pulse Location Monitor Respiratory Rate (12-18 breaths/min) 16 Respiratory rate source Observation Blood Pressure (90/60-120/80 mm Hg) 131/85 H Blood Pressure Mean (mm Hg) 100 Source Monitor Position Sitting Blood Pressure Location Left Arm History Since Last Visit- (Skip if this is Patient's initial visit) Have you changed medications since your No last visit? Any new allergies or adverse reactions No Had a fall/change in ADL's that may No increase risk of falls Signs or symptoms of abuse and/or No neglect since last visit Have you been in the hospital since your No last visit? Has dressing in place as prescribed Yes Has compression in place as prescribed N/A Has offloadiing in place as prescribed N/A Experienced any changes in pain level or No management Left Footwear Regular Shoe Right Footwear Regular Shoe Pain Scale: 0-10 Numeric Is Patient Pain Free? Yes - Nurse 1 - General Ulcer Measurement Start: 04/28/22 08:19 Freq: Status: Active Protocol: Activity Type Activity Date Activity User E-sign Co-sign Detail Recorded Client Recorded Date Recorded By Document 04/28/22 08:25 ML [id number] 04/28/22 08:30 ML 04/28/22 08:25 Wound Center Nurse 1 #2 L BREAST -Current Size (cm) - Length 0.1 -Current Size (cm) - Width 0.1 -Current Size (cm) - Depth 0.1 -Total Square Cm 0.01 -Exudate Amt Small -Exudate Type Sanguineous -Wound Margin Distinct, Outline Attached -Granulation Amt None Present (0 %) -Necrotic Tissue Type Adherent Slough -Texture (Tarah-wound Skin Appearance) Assessed -Moisture (Tarah-wound Skin Appearance) Assessed -Color (Tarah-wound Skin Appearance) Assessed -Temperature (Tarah-wound Skin No Abnormality Appearance) (Pt Warm) -Tenderness on Palpation (Tarah-wound Yes Skin Appearance) -Ulcer Cleansing Soap and Water -Foul Odor after Cleansing No -Anesthetic Used 4% Lidocaine Solution #1 R BREAST -Current Size (cm) - Length 0.1 -Current Size (cm) - Width 0.1 -Current Size (cm) - Depth 0.1 -Total Square Cm 0.01 -Exudate Amt Small -Exudate Type Serosanguineous -Wound Margin Distinct, Outline Attached -Necrosis Amt None Present (0 %) -Texture (Tarah-wound Skin Appearance) Assessed -Moisture (Tarah-wound Skin Appearance) Assessed -Color (Tarah-wound Skin Appearance) Assessed -Temperature (Tarah-wound Skin No Abnormality Appearance) (Pt Warm) -Tenderness on Palpation (Tarah-wound Yes Skin Appearance) -Ulcer Cleansing Soap and Water -Foul Odor after Cleansing No -Anesthetic Used 4% Lidocaine Solution WC - Nurse 2 - General Ulcer CM Notes Start: 04/28/22 08:19 Freq: Status: Active Protocol: Activity Type Activity Date Activity User E-sign Co-sign Detail Recorded Client Recorded Date Recorded By Document 04/28/22 08:45 [id number] 04/28/22 08:47 04/28/22 08:45 Pain Scale: 0-10 Numeric Is Patient Pain Free? Yes Charges/Coding Procedures Integumentary 111xxx-113xx: [id number] Global Visit 04/29/22 1528 <Electronically signed by Rachel Beard NP [employer]> Cosigner Signature (if applicable): CC: ~ Signed [facility] Work Phone: 1(570) 875-465101-30-[address] Barrett [facility] April 14, 2022 11:30am Note Date/Time April 13, 2022 8 :43pm [facility] Medical Records Department [address] [place] [address] Progress Note - Surgery 04/13/222037 MR#: [id number] Acct: [id number] Name: IRENE LOPEZ Rep #:[id number] : 1975 46 From: Zenaida Greer PCP: Dr. Amanda Osborne MD Statu s:ADM ALEX Location: [place] [address] Subjective Subjective Postop #2 Patient having some nausea and vomiting today. Also has a headache. Objective Data Objective Data Vital Signs: Vital Signs Temp Pulse Resp BP Pulse Ox O2 Del Method O2 Flow Rate 98.7 F 71 16 106/57 L 95 Nasal Cannula 2 04/13/22 20:19 04/13/22 20:19 04/13/22 20:19 04/13/22 20:19 04/13/22 20:19 04/13/22 20:19 04/13/22 20:19 Oxygen Flow Rate (L/min) 2 Oxygen Delivery Method Nasal Cannula Weight: 169 lb 12.095 oz Body Mass Index (BMI) 27.3 Intake & Output: Intake and Output for Last 24 Hours 04/11/22 04/12/22 04/13/22 23:59 23:59 23:59 Intake Total 3442 / 3442 1850 / 2110 195 / 195 Output Total 1650 / 2415 1612 / 1642 115 / 115 DrBalance 1792 / 1027 238 / 468 1844 / 1844 Drainage 247 ml yesterday, 115 ml today Lab / Micro Data Attestation: I reviewed the patient's lab results. Result Diagrams: 04/12/22 06:30 04/12/22 06:30 Physical Exam Narrative General - Alert and Oriented. HEENT - PERRL. EOMI. Neck - Supple and nontender. Breasts - Incisions are dry and intact. Breasts are symmetrical. No clinical evidence of hematoma. No vascular compromise noted on the breast skin flaps. Abdomen - Soft and nondistended. Neuro - CN II-XII grossly intact. Psych - Normal mood and affect. Assessment & Plan Assessment/Plan (1) Monoallelic mutation of DEISY gene: (2) Genetic 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: (3) Cancer phobia: (4) Acquired absence of bilateral breasts and nipples: (5) Disproportion of reconstructed breast: (6) Ptosis of both breasts: (7) Acute postoperative anemia due to expected blood loss: (8) Prophylactic breast removal: (9) Family history of breast cancer: (10) Former smoker: (11) History of bilateral oophorectomy: (12) PONV (postoperative nausea and vomiting): PLAN: Plan Patient having postop nausea and vomiting today. Will add Compazine IV along with Zofran IV if necessary. Breasts are symmetrical. Incisions are dry and intact. No clinical evidence of hematoma. No vascular compromise noted on the breast skin flaps. Hgb is 9.4. She has anemia due to expected blood loss. Had 150 ml operative blood loss. Also has IV Fluid dilution with I's/O's positive 3.8 liters. Will recheck a Hgb in the morning. On Iron supplementation. Prealbumin was 18.4. Encourage nutritional supplementation with protein to helpthe healing process. Will keep her one more day to get her PONV under better control with po anti- emetics. She takes Imitrex at home for her headaches. Will order a triptan equivalent. Ambulate with assist. 04/14/22 1130 <Electronically signed by Zenaida Barrett MD> Cosigner Signature (if applicable): CC: ~ Signed [facility] Work Phone: 1(983) 680-747501-29-[address] Barrett [facility] April 13, 2022 9:28pm Note Date/Time April 12, 2022 8 :25pm [facility] Medical Records Department [address] [place] [address] Progress Note - Surgery 04/12/222023 MR#: [id number] Acct: [id number] Name: IRENE LOPEZ Rep #:[id number] : 1975 46 From: Zenaida Greer PCP: Dr. Amanda Osborne MD Statu s:ADM ALEX Location: [place] [address] Subjective Subjective Postop #1 Patient has incisional pain. White catheter was removed. She is voiding without difficulty. Objective Data Objective Data Vital Signs: Vital Signs Temp Pulse Resp BP Pulse Ox O2 Del Method O2 Flow Rate 98.2 F 82 18 126/75 H 95 Nasal Cannula 3 04/12/22 16:35 04/12/22 16:35 04/12/22 16:35 04/12/22 16:35 04/12/22 16:35 04/12/22 16:35 04/12/22 16:35 Oxygen Flow Rate (L/min) 3 Oxygen Delivery Method Nasal Cannula Weight: 169 lb 12.095 oz Body Mass Index (BMI) 27.3 Intake & Output: Intake and Output for Last 24 Hours 04/10/22 04/11/22 04/12/22 23:59 23:59 23:59 Intake Total 3442 / 3442 1800 / 1800 Output Total 1650 / 2415 1582 / 1582 Balance 1792 / 1027 218 / 218 Drainage 130 ml yesterday, 60 ml today. Prealbumin is 18.4. Encourage nutritional supplementation with protein to help the healing process. Lab / Micro Data Attestation: I reviewed the patient's lab results. Result Diagrams: 04/12/22 06:30 04/12/22 06:30 Labs: Laboratory Results - last 24 hr 04/12/22 06:30: WBC 10.0, RBC 2.92 L, Hgb 9.4 L, Hct 28.7 L, MCV 98.3, MCH 32.2 H, MCHC 32.8, RDW Std Deviation 46.1 H, RDW Coeff of Khushi 12.9, Plt Count 158, MPV 10.3 04/12/22 06:30: Sodium 143, Potassium 4.1, Chloride 108 H, Carbon Dioxide 31.0, Anion Gap 4 L, BUN 10, Creatinine 0.75, Estim Creat Clear Calc 85.88, Est GFR (MDRD) Af Amer 106, Est GFR (MDRD) Non-Af 87, BUN/Creatinine Ratio 13.3, [id number] H, Calcium 8.4 L, Prealbumin 18.4 L Physical Exam Narrative General - Alert and Oriented HEENT - PERRL. EOMI. Neck - Supple and nontender. Breasts - Incisions are dry and intact. Breasts are symmetrical. No vascular compromise on the breast skin flaps. No clinical evidence of hematoma. Abdomen - Soft and nondistended. Neuro - CN II-XII grossly intact. Psych - Normal mood and affect. Assessment & Plan Assessment/Plan (1) Monoallelic mutation of DEISY gene: (2) Genetic 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: (3) Cancer phobia: (4) History of bilateral oophorectomy: (5) Acquired absence of bilateral breasts and nipples: (6) Disproportion of reconstructed breast: (7) Prophylactic breast removal: (8) Acute postoperative anemia due to expected blood loss: (9) Ptosis of both breasts: (10) Family history of breast cancer: (11) Former smoker: PLAN: Plan Patient has incisional pain. Breasts are symmetrical. No clinical evidence of hematoma. Incisions are dry and intact. Hgb is 9.4. She has anemia due to expected blood loss. Had 150 ml operative blood loss. Also has IV fluid dilution with I's/O's positive 2 liters. Will recheck a Hgb. Will start Iron supplementation. Prealbumin 18.4. Encourage nutritional supplementation with protein to help thehealing process. White was removed. She is voiding without difficulty. Still needs occasional IV analgesia. Will have her stay another day until she is tolerating po analgesia. Ambulate with assist. 04/13/222127 <Electronically signed by Zenaida Barrett MD> Cosigner Signature (if applicable): CC: ~ Signed [facility] Work Phone: 1(412) 131-799601-28-[address] [facility] 04-11-2022 History and physical note Author Dr. Barrett [facility] April 10, 2022 10:29pm Note Date/Time April 10, 2022 1 0:24pm [facility] Medical Records Department [address] [place] [address] History & Physical Exam 04/10/222208 MR#: [id number] Acct: [id number] Name: IRENE LOPEZ Rep #:[id number] : 1975 46 From: Zenaida Greer PCP: Dr. Amanda Osborne MD [place] [facility] [place] [facility] History and Physical Date of Admission: 04/11/22 HISTORY OF PRESENT ILLNESS 46 year old woman presents for evaluation of her breasts after having genetic testing done in 2019.? The testing was done because of a family history of breast cancer (Grandmother and Aunt).? The genes tested were DEISY, BRCA1, BRCA2, CDH1, CHEK2, PALB2, PTEN, and TP53.? The testing was done by [employer] 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 The conclusion was high risk for female breast cancer and elevated risk for pancreatic cancer.? Before deciding on having any surgery to her breasts, she wanted to due her own due diligence.? Then COVID hit.? Earlier this year she was told she was at high riskfor ovarian cancer due to this mutation and she underwent removal of both ovaries.? She already had a hysterectomy.? Because of this, she is concerned about getting breast cancer and has developed cancerphobia.? She comes in today to further discuss her genetic testing results and to discuss surgical options for treatment.? Her last mammogram was in May,, in [place].? Patient states it was normal.? It showed very dense breast parenchyma bilaterally.? No obvious mass lesion.? Palpable nodule left breast 2 olock position in subcutaneous tissue such as sebaceous cyst.? Benign, no evidence malignancy.? We have received medical approval for her breast reconstruction surgery.? She has decided on proceeding with bilateral prophylactic mastectomy with prepectoral breast implant reconstruction possible placement saline tissue marketing underwriter and acellular dermal matrix graft.? Initially she wanted simple mastectomies which would include the nipple because of the higher risk of developing breast cancer.? After thinking it over, she would like to proceed with subcutaneous mastectomies which would keep the nipples.? Some breast tissueis needed to preserve the blood supply to the nipple.? She would need to get mammograms because of that.? Patient voiced understanding. PAST MEDICAL HISTORY Acquired absence of bilateral breasts and nipples Alcohol use Cancer phobia Disproportion of reconstructed breast Family history of breast cancer Former smoker Frequent headaches Gastric reflux Genetic 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 Migraine headache Monoallelic mutation of DEISY gene Pneumonia Prophylactic ovary removal Ptosis of both breasts Wears contact lenses Wears glasses PAST SURGICAL HISTORY History of bilateral oophorectomy History of bladder surgery History of hysterectomy ALLERGIES Penicillins [PCN] MEDICATIONS ibuprofen omeprazole sumatriptan succinate valacyclovir FAMILY HISTORY Grandmother - Breast cancer Aunt - Breast cancer Father - Diabetes SOCIAL HISTORY Smoking Status:? Former smoker alcohol intake:? current substance use type:? does not use REVIEW OF SYSTEMS General - Denies fever, fatigue, and weight loss. Eyes - Denies cataracts and glaucoma. ENT - Denies nasal congestion and sore throat. Endocrine - Denies excessive thirst and urination.? Has family history of breast cancer (Grandmother and Aunt).? She had genetic testing which showed an abnormal DEISY mutation.? Had hysterectomy and earlier this year, she had bilateral oophorectomy. Skin - Denies suspicious lesions and skin cancer. Musculoskeletal - Denies joint pain, joint stiffness, weakness of muscles and joints, back pain, and arthritis. Neuro - Has headaches. Cardiovascular - Denies chest pain, fatigue, and shortness of breath with exertion. Psych - Denies anxiety and depression. Respiratory - Denies chronic cough and shortness of breath.? Patient is a former smoker. Gastrointestinal - Denies nausea, vomiting, diarrhea.? Has constipation. Hematologic - Denies abnormal bruising and bleeding. Genitourinary - Denies hematuria and urinary frequency. PHYSICAL EXAMINATION General - Alert and Oriented.? Her bra size is 36 D. HEENT - PERRL. EOMI.? Throat is clear. Neck - Supple and nontender.? No cervical adenopathy. Breasts - soft and symmetrical.? No breast masses palpable.? No axillary adenopathy.? She has decreased superior pole fullness bilaterally.? ? Nipple is located at the inframammary fold.? She states the decreased superior pole fullness started after her .? The also decreased her shape as well with decreased projection.? She has pseudoptosis with the breast tissue ptotic but the nipple is not.? The horizontal width of the breasts are 15 cm bilaterally.? The distance from the nipple to the inframammary fold is 8 cm on the left and 7 cm on the right.? She has good skin elasticity.? There are no stretch ferro.? The nipple areolar complex diameter is 5 cm bilaterally. Lungs - Clear to auscultation. Heart - Regular rate and rhythm. Abdomen - Soft and nondistended. Extremities - FROM. No axillary adenopathy.? Radial pulses are palpable. Neuro - CN II-XII grossly intact. Psych - Normal mood and affect. ASSESSMENT 1.? 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 2.? Genetic susceptibility to breast cancer. 3.? Cancer phobia. 4.? Family history of breast cancer. 5.? History of prophylactic bilateral oophorectomy. 6.? Planned acquired absence bilateral breasts and nipples. 7.? Planned disproportion reconstructed breasts. 8.? Planned prophylactic bilateral breast removal. 9.? Pseudoptosis bilateral breasts. 10.? Former smoker. PLAN Genetic testing result reviewed.? It states she is at high risk for developing breast cancer.? High risk is defined as the absolute risk of cancer is approximately 5% or higher and the increase in risk over the general population is approximately 3- fold or higher and there is significant data from multiple studies supporting this cancer risk estimate.? For patients up to age 50 (she is 46), the cancer risk is up to 9% and the cancer risk for the general population is 1.9%.? After her recent prophylactic bilateral oophorectomy, she started to become nervous about the increased risk of developing breast cancer.? This led to her developing cancer phobia. With this degree of high risk severity for developing breast cancer, I recommend prophylactic mastectomy followed by reconstruction.? Prophylactic mastectomy can be either simple or subcutaneous (which includes the nipple).? Because of this high risk, I recommended simple mastectomies.? We can reconstruct her nipples later.? If we leave the nipples there will be more breast tissue preserved to maintain blood supply to the nipple.? Therefore she would still need mammograms and she would still be at higher risk.? Initially she was in agreement to proceed with the simple mastectomies.? After further thought, she has decided to keep the nipples, so would proceed with subcutaneous mastectomies.? She understands that some breast tissue is still present and mammograms would be necessary.? She voiced understanding and wishes to proceed. She is interested in a one stage breast reconstruction if possible. The two stage breast reconstruction is a two stage placement of a saline tissue marketing underwriter (smooth) followed by removal of the marketing underwriter with replacement cohesive gel implant and placement of acellular dermal matrix graft. The timing for the second procedure is about 3 months.? This option is safer because at the time of the implant replacement, the breast skin flaps have already healed so there is much less risk of a wound healing problem that could lead to exposure of the implant. A single stage placement of a cohesive gel implant is also possible which would be done on top of the muscle (prepectoral position) and covered completely by acellular dermal matrix graft.? The benefit is the patient wakes up with a breast.? She would be flat if a tissue marketing underwriter was placed.? For a single stage procedure, we sometimes combine the mastectomy incision into a breast lift incision if there is some ptosis because the nipple is excised with the specimen.? This usually entails a horizontal and vertical incision and the creation of the Tzone.? This is a weak spot that can cause wound healing issues especially if a implant is placed at the same time since in order to have projection, there will be some pressure from the implant on the Tzone area.? One way to minimize this risk is to decide what the best size implant is based on the breast pocket, then go down to the next smallest implant for the final size.? The smaller implant would have less pressure on the Tzone area.? That decision is made in the operating room.? The patient is a D cup and would like to stay as a D cup. ? The mastopexy, if needed, would help to shape the skin around the implant.? However, she is now wishing to keep the nipples with a subcutaneous mastectomy.? Moving the nipple in a breast lift would increase the risk of vascular issues with the nipple.? So during surgery, I will place the biggest sizer that fits the pocket until the maximize size is reached.? If there is good draping of the skin around the implant, then there would be no need for a breast lift as well.? If it appears that there is residual loose skin draping that would benefit from a breast lift, then would proceed with the placement of a saline tissue marketing underwriter.? With the expansion, the nipple may elevate enough that? no breast lift would be necessary when the final cohesive gel implant is placed.? A breast lift mastectomy incision removes some loose skin thus making the skin envelope smaller and leading to a less ptotic, perkier breast.? Before surgery, when the patient states her bra size, a lot of that is excess skin filling the bra.? A breast lift makes the breast firmer and elevates the breast giving it better shape and contour.? This sometimes leads to a smaller bra size but a better looking breast.? So at the time of surgery, if the largest implant placed doesn't give her a D cup when she is sat upright, then I would proceed with placement of a saline tissue marketing underwriter.? This would expand the skin and breast pocket so a larger implant can be placed after the marketing underwriter is removed. She understands that she may or may not wake up with a breast mound.? If a saline tissue marketing underwriter is placed, then additional surgery would be necessary to replace the marketing underwriter with a cohesive gel implant.? The chance of waking up with a breast mound is higher if the nipple is excised with the mastectomy since there would be no worries about the vascularity of the nipple.? The major change in her decision making is the desire to keep the nipples.? We have received medical approval for the bilateral prophylactic mastectomies followed by reconstruction with prepectoral cohesive gel implants or placement of a saline tissue marketing underwriter and subsequent tissue marketing underwriter removal with replacement cohesive gel implant.? It is scheduled for 04/11/22. Surgery would be done under general anesthesia with a surgical observation overnight stay in the hospital. She will have drains in for 10-14 days and be maintained on antibiotics until the drains are removed. Tissue that is removed at surgery will be sent to Pathology for analysis to rule out carcinoma. Her last mammogram was done in [place] in May,.? It showed dense breast parenchyma bilaterally.? No obvious mass lesion.? Palpable nodule left breast 2 oclock position in subcutaneous tissue such as sebaceous cyst.? Benign, no evidence malignancy. I thought she was receiving mammograms every 6 months, but it was every 12 months.? Instead she was having PAP smears every 6 months because of abnormal cells. Patient was informed of the risks and complications of the procedure including alternatives to surgery.? These were discussed with the patient personally.? Patient voices understanding and wishes to proceed. Some of the risks and complications were included in a form from the [employer]. Potential risks and complications included but not inclusive of bleeding, infection seroma, hematoma, bruising, swelling, prolonged need for drains, loss of sensation to skin, partial or complete loss of skin flap and/or nipple graft, wound breakdown, need for wound care, poor scarring, poor aesthetic outcome, intra operative cardiac or neurologic events, DVT, PE, and reaction to anesthesia. After further thought, I had another discussion with the patient a few days ago. The patient's biggest priority is one stage procedure. This priority can be more easily achieved if the nipples are removed. Reshaping the breast over the implant is easier especially using a mastopexy type incision for the mastectomy because there is no worry where the nipple is located after the placement of the implant since the nipples would be removed. The breast tissue would be removed from the undersurface of the nipple, and the nipple can be placed back on the breast in the appropriate position as a free nipple graft. The healed nipple graft would look more real because of the texture difference between the smooth skin and the rougher areolar complex. The patient may be interested in the free nipple graft and will let me know the morning of surgery. And if there is some healing discoloration, then intradermal tattooing can be done to help smooth out the coloration. Assessment & Plan Assessment/Plan (1) Monoallelic mutation of DEISY gene: (2) Genetic 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: (3) Cancer phobia: (4) Family history of breast cancer: (5) Prophylactic ovary removal: (6) Acquired absence of bilateral breasts and nipples: (7) Disproportion of reconstructed breast: (8) Prophylactic breast removal: (9) Ptosis of both breasts: (10) Former smoker: 04/10/222228 <Electronically signed by Zenaida Barrett MD> Cosigner Signature (if applicable): CC: Dr. Zenaida Barrett MD; Dr. Amanda Osborne MD~ Signed [facility] Work Phone: 1(841) 349-592401-01-2023 History of Present illness Narrative Presents for annual exam. She voices no complaints and is doing well. Denies any bowel or bladder problems. Denies any breast problems. Previous hysterectomy. She had bilateral mastectomy with reconstruction in March 2022.[address] Work Phone: 1(187) 845-617712-17-2022 History of Present illness Narrative* Here for routine f/u migraines. She was seen in the ER on 03/01 for sore throat/tongue pain - she was treated with steroids, antibiotics and viscous lidocaine. She was negative for strep, covid, influenza. She had a CT that was negative for infection/abscess in the neck. It did show esophagitis. She is now having cough, sinus congestion. * She is on clindamycin. Overall she states that she is feeling better today than she had been feeling. She has taken OTC omeprazole 20 mg daily and felt that was somewhat helpful. We will start her on40 mg daily and will refer for EGD/GI evaluation. [facility] Work Phone: 1(260) 508-926912-17-2022 History of Present illness Narrative* Here for routine f/u migraines. She was seen in the ER on 03/01 for sore throat/tongue pain - she was treated with steroids, antibiotics and viscous lidocaine. She was negative for strep, covid, influenza. She had a CT that was negative for infection/abscess in the neck. It did show esophagitis. She is now having cough, sinus congestion. * She is on clindamycin. Overall she states that she is feeling better today than she had been feeling. She has taken OTC omeprazole 20 mg daily and felt that was somewhat helpful. We will start her on40 mg daily and will refer for EGD/GI evaluation. [facility] Work Phone: 1(494) 749-576301-01-2022 History of Present illness Narrative* SUE Lopez - 03/16/2021 2:10 PM EST URGENT CARE eNCOUnter CHIEF COMPLAINT Sinus Congestion (FOR A WEEK) HPI Irene Lopez is a 45 y.o. female who presents today for Complaining of cough and sinus congestion for the past week. Patient states she has tried many amiy-tdm-azxtasb cold medications with little relief. Denies fever. Denies shortness of breath or chest pain. REVIEW OF SYSTEMS Review of Systems As documented in HPI. A thorough 12 point review of systems was evaluated including Constitutional and general appearance, Head, Face, Ears, Eyes, Nose, Throat, Cardiovascular, Pulmonary, GI, , Skin, and Psychiatric andwas found to be negative without symptoms or [...] (Temporal) Resp 16 Ht 1.651 m (5' 5) Wt 68.5 kg (151 lb 1.6 oz) [...] PCP. SUE Lopez 03/16/2021 [facility] Instructions* Patient Instructions* SUE Lopez - 03/16/2021 2:10 PM EST [...] a good idea to know your test resultsand keep a list of the medicines you [...] Where can you learn more? Go to http://www.[email or web address]/patiented. Enter D279 in the search box to learn more about 'Cough: Care Instructions.' Interested in seeing a video go to [email or web address]/videolibrary to see all video content. Current as of: September 18, 2020 Content Version: 13. [employer]. Care instructions adapted under license by your healthcare professional. If you have questions about a medical condition or this instruction, always ask your healthcare professional. [employer] disclaims any warranty or liability for your use of this information. Sinusitis: Care Instructions Your Care Instructions Sinusitis is an infection of the lining of the sinus cavities in your head. Sinusitis often followsa cold. It causes pain and pressure in [...] a good idea to know your test resultsand keep a list of the medicines you take. How can you care for yourself at home? Take an xdtl-vby-mdmmiuy pain medicine, such as acetaminophen (Tylenol), ibuprofen (Advil, Motrin),or naproxen (Aleve). Read and follow all instructions on the label. If the doctor prescribed antibiotics, take them as directed. Do not stop taking them just because you feel better. You need to take the full course of antibiotics. Be careful when taking eydk-vnw-kisksvf cold or flu medicines and Tylenol at the same time. Many ofthese medicines have acetaminophen, which is Tylenol. Read the labels to make sure that you are nottaking more than the recommended dose. Too much [...] your nasal passages open and wash out mucusand bacteria. You can buy saline nose drops [...] Where can you learn more? Go to http://www.[email or web address]/patiented. Enter I933 in the search box to learn more about 'Sinusitis: Care Instructions.' Interested in seeing a video go to [email or web address]/[email or web address] to see all video content. Current as of: November 21, 2020 Content Version: 13.1 [employer]. Care instructions adapted under license by your healthcare professional. If you have questions about a medical condition or this instruction, always ask your healthcare professional. [employer] disclaims any warranty or liability for your use of this information. documented in this [facility]02-01-2019 History of Present illness Narrative* Irene Lopez is a pleasant 45- yo female self-referred to the [facility] for surgical consultation for risk reducing bilateral breast mastectomies. She underwent genetic testing in04/2018 secondary to paternal family history of breast cancer and was found to have an DEISY pathologic gene mutation( c.6347+1G>A). She denies breast pain, palpable mass, skin changes or nipple discharge. She has family history of breast cancer in a paternal aunt, paternal grandmother and paternalgreat aunt. * BREAST IMAGIN06/12/2021 Screening mammogram demonstrates heterogeneously dense tissue, BI-RADS Category 1, negative. No breast MRI's performed. * REPRODUCTIVE HEALTH: menarche at , surgical menopause at age 43, s/p OSCAR- BSO for fibroids and menorrhagia with begin pathology, with first at 23, with no hormone exposure such as birthcontrol pills, post menopausal estrogen, or history of breast feeding. * MEDICAL HISTORY: Migraines * FAMILY CANCER HISTORY. Paternal aunt diagnosed with breast cancer in late 50's/early 60's. Paternalgrandmother diagnosed with breast cancer in 80's. Paternal great aunt diagnosed with breast cancer at unknown age. Maternal half-niece with cervical cancer at 19-20. [facility] [address] Work Phone: 1([phone] 452-352302-01-2019 History of Present illness Narrative* Irene Lopez is a pleasant 45- yo female self-referred to the [facility] for surgical consultation for risk reducing bilateral breast mastectomies. She underwent genetic testing in04/2018 secondary to paternal family history of breast cancer and was found to have an DEISY pathologic gene mutation( c.6347+1G>A). She denies breast pain, palpable mass, skin changes or nipple discharge. She has family history of breast cancer in a paternal aunt, paternal grandmother and paternalgreat aunt. * BREAST IMAGIN06/12/2021 Screening mammogram demonstrates heterogeneously dense tissue, BI-RADS Category 1, negative. No breast MRI's performed. Current screening recommendations have been for q6 month mammogram. * REPRODUCTIVE HEALTH: menarche at 11, surgical menopause at age 43, s/p OSCAR-BSO for fibroids and menorrhagia with benign pathology, with first at 22, with no hormone exposure such as birthcontrol pills, post menopausal estrogen, or history of breast feeding. * MEDICAL HISTORY: Migraines * FAMILY CANCER HISTORY. Paternal aunt diagnosed with breast cancer in late 50's/early 60's. Paternalgrandmother diagnosed with breast cancer in 80's. Paternal great aunt diagnosed with breast cancer at unknown age. Maternal half-niece with cervical cancer at 19-20. [facility] [address] Work Phone: [phone] History of Present illness NarrativeIs thatPatient is a 45-year-old who comes in with a complaint of a vulvar lump. About 3 or 4 years ago in the same area she had a boil that grew very slowly over several weeks and eventually came to ahead which was very tender eventually it drained. Since that time that area had been nonproblematicand the boil had not recurred. However for approximately a year she has noted a growth on her rightvulva that has slowly progressed to now about the size of a pea. She reports that it is nonerythematous and nontender but rather it is just an annoyance. She is concerned because she has a family history of colon cancer uterine cancer breast cancer and she is positive for a breast cancer gene. She w ishes to have this lesion removed and sent to pathology to rule out malignancy [employer] Work Phone: chief complaint Narrative - ReportedPatient is here for colp procedure. Vaginal pap showed LGSIL. Patient had OSCAR due to uterine fibroids.[employer] Work Phone: consult note Author Bro Son [facility] January 23, 2023 3:34pm Note Date/Time January 23, 2023 3:34pm [facility] Medical Records Department [address] [place] [address] Counseling Note - Pharmacy 01/23/23 1532 MR#: [id number] Acct: [id number] Name: IRENE LOPEZ Rep #:[id number] : 1975 47 From: Bro Son PCP: Dr. Amanda Osborne MD Statu s:ADM ALEX Y Location: [place] [address] Pharmacy [facility] has performed discharge medication reconciliation and counseling for this patient. The patient's discharge medication list was reviewed for discrepancies and discrepancies were resolved. The patient was counseled on the following discharge medications and changes in medications for homegoing were reviewed. The Reason for Use, instructions for use, and potential side effects were reviewed for all new medications. The patient's questions regarding all of their medications were answered. 1. Docusate 100 mg PO daily PRN constipation 2. Levofloxacin 500 mg PO daily X 14 days 3. Ondansetron 4 mg Q8H PRN N/V 4. Oxycodone/acetaminophen 5/325 Q6H PRN pain 7-10 The patient was able to verbally demonstrate an understanding of their dischargemedications. The patient was counselled on new medications by pharmacy customer care specialist Bj. Medications at Discharge Home Medications ibuprofen 800 mg tablet 800 mg PO Q12H PRN PRN Migraine Headache 03/28/22 omeprazole 40 mg capsule,delayed release 40 mg PO DAILY 03/28/22 sumatriptan succinate 100 mg tablet 100 mg PO PRN PRN MIGRAINE 03/28/22 valacyclovir 500 mg tablet 500 mg PO DAILY 03/28/22 diazepam 5 mg tablet (Valium) 5 mg PO BID PRN spasm #14 tabs 12/25/22 docusate sodium 100 mg capsule 100 mg PO DAILY PRN PRN constipation 30 days #30 caps 01/23/23 levofloxacin 500 mg tablet 500 mg PO DAILY 14 days #14 tabs 01/23/23 ondansetron 4 mg disintegrating tablet 4 mg PO Q8H PRN nausea and vomiting 5 days #10 tabs 01/23/23 oxycodone-acetaminophen 5 mg-325 mg tablet (Percocet) 1 tab PO Q6H PRN pain (scale score 7-10) 7 days #28 tabs 01/23/23 01/23/23 1534 <Electronically signed by Bro gaytan> Date _ Bro Smiley Signature (if applicable): Date CC: ~ Signed [facility] Work Phone: Discharge summary Author Rachel Beard [facility] April 14, 2022 4:54pm Note Date/Time April 14, 2022 4 :40pm [facility] Medical Records Department [address] [place] [address] Instructions for Home/Discharge Instructions 04/14/22 1636 MR#: [id number] Acct: [id number] Name: IRENE LOPEZ Rep #:[id number] : 1975 46 From: Rachel gibson BUILDING MAINTENANCE CUSTODIAN BUILDING MAINTENANCE CUSTODIAN-C PCP: Dr. Amanda Osborne MD Statu s:ADM ALEX Discharge Instructions Diet Discharge Diet: No restrictions Activity Discharge Activity: May Not Drive May resume sexual activity in: 10-14 days Dressing / Incision Call your doctor if your incision/area has: Continuous Slow Oozing, Sudden Increased Bleeding, Increased Pain/ Swelling, Increased Redness, Foul Smelling Discharge and Swelling at the incision site Call your doctor if you observe: Fever of 101 or Higher, Inability to urinate, Inability to have a bowel movement, Shortness of breath, Dizziness, Chest pain, Calf discomfort and Uncontrolled pain Change Dressing in: do not change dressing Remove Dressing in: do not remove dressing Drain: Suction Additional Dressing/Incision Instructions:: Keep track of drainage from drains and bring into office Follow Up Care Please Follow Up With: Zenaida Barrett MD When: Thursday04/15/22 at 4:00 pm at [facility] [phone]. Test Results: Test results from this visit will be discussed in further detail at your follow- up appointment, if applicable. Discharge Plan Admission Admit Date/Time: 04/11/22 17:15 Primary Reason for Your Visit: bilateral prophylactic mastectomy with reconstruction Attending Provider: Zenaida Barrett Primary Care Provider: Amanda Osborne Discharge Orders/Prescriptions Prescriptions: New polysaccharide iron complex [Ferrex 150] 150 mg iron Capsule 150 mg PO DAILY 30 Days Qty: 30 1RF docusate sodium [Colace] 100 mg capsule 100 mg PO DAILY 30 Days Qty: 30 0RF ondansetron 4 mg tablet,disintegrating 4 mg PO Q8H PRN (Reason: nausea and vomiting) 5 Days Qty: 15 0RF oxycodone-acetaminophen [Percocet] 5-325 mg tablet 1 tab PO Q4H PRN (Reason: pain (scale score 7-10)) 7 Days Qty: 40 0RF diazepam [Valium] 5 mg tablet 5 mg PO BID PRN (Reason: muscle spasm) 7 Days Qty: 14 0RF cefadroxil 500 mg capsule 500 mg PO BID 14 Days Qty: 28 0RF L.acidoph,saliva-B.bif-S.therm [Acidophilus Probiotic Blend] 175 mg capsule 1 cap PO DAILY 14 Days Qty: 14 0RF Continued ibuprofen 800 mg tablet 800 mg PO Q12H PRN PRN (Reason: Migraine Headache) Label Comments: TAKE 1 TABLET BY MOUTH THREE TIMES A DAY NEEDED sumatriptan succinate 100 mg tablet 100 mg PO PRN PRN (Reason: MIGRAINE) Label Comments: TAKE 1 TABLET FOR MIGRAINE RELIEF. MAY REPEAT 2 HOURS LATER. MAXIMUM 200MG/DAY. valacyclovir 500 mg tablet 500 mg PO DAILY Label Comments: TAKE 1 TABLET BY MOUTH EVERY DAY omeprazole 40 mg capsule,delayed release(DR/EC) 40 mg PO DAILY Label Comments: TAKE 1 CAPSULE BY MOUTH EVERY DAY Referrals / Follow Up: Amanda Osborne MD [Primary Care Provider] - Disposition Disposition (needs filled in before D/C Order can be placed): Home, Self Care 04/14/22 2230<Electronically signed by Rachel Beard BUILDING MAINTENANCE CUSTODIAN BUILDING MAINTENANCE CUSTODIAN-C>Rachel Beard NP BUILDING MAINTENANCE CUSTODIAN-C CC: Dr. Amanda Osborne MD ~ Signed [facility] Work Phone: Evaluation note* Diagnosis Congestion of nasal sinus- Primary Other diseases of nasal cavity and sinuses Acute maxillary sinusitis, recurrence not specified Cough [facility] Diagnosis Onset Date Resolution Status 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 Disproportion of reconstructed breast acute Prophylactic breast removal acute Cancer phobia chronic Family history of breast cancer chronic Former smoker chronic 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 removal c hronic Ptosis of both breasts chron ic 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 Disproportion of reconstructed breast acute Prophylactic breast removal acute Cancer phobia chronic Family history of breast cancer chronic Former smoker chronic 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 removal c hronic Ptosis of both breasts chron ic 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 Acute postoperative anemia due to expected blood loss acute Disproportion of reconstructed breast acute PONV (postoperative nausea and vomiting) acute Prophylactic breast removal acute Cancer phobia chronic Family history of breast cancer chronic Former smoker chronic 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 removal c hronic Ptosis of both breasts chron ic [facility] Work Phone: Evaluation note* Diagnosis Onset Date Resolution Status 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 Disproportion of reconstructed breast acute Prophylactic breast removal acute Cancer phobia chronic Family history of breast cancer chronic Former smoker chronic 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 removal c hronic Ptosis of both breasts chron ic 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 Disproportion of reconstructed breast acute Prophylactic breast removal acute Cancer phobia chronic Family history of breast cancer chronic Former smoker chronic 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 removal c hronic Ptosis of both breasts chron ic 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 Acute postoperative anemia due to expected blood loss acute Disproportion of reconstructed breast acute Prophylactic breast removal acute Cancer phobia chronic Family history of breast cancer chronic Former smoker chronic 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 removal c hronic Ptosis of both breasts chron ic PONV (postoperative nausea and vomiting) resolved 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 Acute postoperative anemia due to expected blood loss acute Disproportion of reconstructed breast acute Prophylactic breast removal acute Cancer phobia chronic Family history of breast cancer chronic Former smoker chronic 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 ic PONV (postoperative nausea and vomiting) resolved 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 Acute postoperative anemia due to expected blood loss acute Disproportion of reconstructed breast acute Prophylactic breast removal acute Cancer phobia chronic Family history of breast cancer chronic Former smoker chronic 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 ic PONV (postoperative nausea and vomiting) resolved 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 Acute postoperative anemia due to expected blood loss acute Disproportion of reconstructed breast acute Other complications of skin graft (allograft) (autograft) acute Prophylactic breast removal acute Cancer phobia chronic Family history of breast cancer chronic Former smoker chronic 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 ic PONV (postoperative nausea and vomiting) resolved 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 Acute postoperative anemia due to expected blood loss acute Disproportion of reconstructed breast acute Other complications of skin graft (allograft) (autograft) acute Prophylactic breast removal acute Status post bilateral breast reconstruction acute Status post bilateral mastectomy acute Cancer phobia chronic Family history of breast cancer chronic Former smoker chronic 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 [facility] Work Phone: Evaluation note* Diagnosis Onset Date Resolution Status 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 Disproportion of reconstructed breast acute Prophylactic breast removal acute Cancer phobia chronic Family history of breast cancer chronic Former smoker chronic 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 removal c hronic Ptosis of both breasts chron ic 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 Acute postoperative anemia due to expected blood loss acute Disproportion of reconstructed breast acute Prophylactic breast removal acute Cancer phobia chronic Family history of breast cancer chronic Former smoker chronic 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 Prophylactic ovary removal c hronic Ptosis of both breasts chron ic PONV (postoperative nausea and vomiting) resolved 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 Acute postoperative anemia due to expected blood loss acute Disproportion of reconstructed breast acute Prophylactic breast removal acute Cancer phobia chronic Family history of breast cancer chronic Former smoker chronic 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 ic PONV (postoperative nausea and vomiting) resolved 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 Acute postoperative anemia due to expected blood loss acute Disproportion of reconstructed breast acute Prophylactic breast removal acute Cancer phobia chronic Family history of breast cancer chronic Former smoker chronic 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 ic PONV (postoperative nausea and vomiting) resolved 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 Acute postoperative anemia due to expected blood loss acute Disproportion of reconstructed breast acute Other complications of skin graft (allograft) (autograft) acute Prophylactic breast removal acute Cancer phobia chronic Family history of breast cancer chronic Former smoker chronic 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 ic PONV (postoperative nausea and vomiting) resolved 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 Acute postoperative anemia due to expected blood loss acute Disproportion of reconstructed breast acute History of bilateral breast implants acute Other complications of skin graft (allograft) (autograft) acute Prophylactic breast removal acute Status post bilateral breast reconstruction acute Status post bilateral mastectomy acute Cancer phobia chronic Family history of breast cancer chronic Former smoker chronic 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 [facility] Work Phone: Evaluation note* Diagnosis Onset Date Resolution Status 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 Disproportion of reconstructed breast acute Prophylactic breast removal acute Cancer phobia chronic Family history of breast cancer chronic Former smoker chronic 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 removal c hronic Ptosis of both breasts chron ic 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 Acute postoperative anemia due to expected blood loss acute Disproportion of reconstructed breast acute Prophylactic breast removal acute Cancer phobia chronic Family history of breast cancer chronic Former smoker chronic 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 removal c hronic Ptosis of both breasts chron ic PONV (postoperative nausea and vomiting) resolved 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 Acute postoperative anemia due to expected blood loss acute Disproportion of reconstructed breast acute Prophylactic breast removal acute Cancer phobia chronic Family history of breast cancer chronic Former smoker chronic 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 ic PONV (postoperative nausea and vomiting) resolved 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 Acute postoperative anemia due to expected blood loss acute Disproportion of reconstructed breast acute Prophylactic breast removal acute Cancer phobia chronic Family history of breast cancer chronic Former smoker chronic 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 ic PONV (postoperative nausea and vomiting) resolved 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 Acute postoperative anemia due to expected blood loss acute Disproportion of reconstructed breast acute Other complications of skin graft (allograft) (autograft) acute Prophylactic breast removal acute Cancer phobia chronic Family history of breast cancer chronic Former smoker chronic 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 ic PONV (postoperative nausea and vomiting) resolved 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 Acute postoperative anemia due to expected blood loss acute Disproportion of reconstructed breast acute History of bilateral breast implants acute Other complications of skin graft (allograft) (autograft) acute Prophylactic breast removal acute Status post bilateral breast reconstruction acute Status post bilateral mastectomy acute Cancer phobia chronic Family history of breast cancer chronic Former smoker chronic 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 Acute postoperative anemia due to expected blood loss acute Disproportion of reconstructed breast acute 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 Nonhealing surgical wound ac [place] Other complications of skin graft (allograft) (autograft) acute Prophylactic breast removal acute Cancer phobia chronic Family history of breast cancer chronic 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 Acute postoperative anemia due to expected blood loss acute Disproportion of reconstructed breast acute Exposed breast implant acute Infection of breast implant acute 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 Nonhealing surgical wound ac [place] Other complications of skin graft (allograft) (autograft) acute Prophylactic breast removal acute Cancer phobia chronic Family history of breast cancer chronic 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 Acute postoperative anemia due to expected blood loss acute Disproportion of reconstructed breast acute Exposed breast implant acute Infection of breast implant acute 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 Nonhealing surgical wound ac [place] Other complications of skin graft (allograft) (autograft) acute Prophylactic breast removal acute Cancer phobia chronic Family history of breast cancer chronic 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 Acute postoperative anemia due to expected blood loss acute Disproportion of reconstructed breast acute Failed skin graft acute Failure of flap graft acute History of bilateral breast implants acute Nonhealing surgical wound ac [place] Other complications of skin graft (allograft) (autograft) acute Prophylactic breast removal acute Status post bilateral breast reconstruction acute Status post bilateral mastectomy acute Cancer phobia chronic Family history of breast cancer chronic Former smoker chronic 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 Acute postoperative anemia due to expected blood loss acute Disproportion of reconstructed breast acute Exposed breast implant acute Failed skin graft acute Failure of flap graft acute History of bilateral breast implants acute Infection of breast implant acute 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 Nonhealing surgical wound ac [place] Other complications of skin graft (allograft) (autograft) acute Status post bilateral breast reconstruction acute Status post bilateral mastectomy acute Cancer phobia chronic Family history of breast cancer chronic Former smoker chronic 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 removal c hronic Ptosis of both breasts chron [facility] Work Phone: Evaluation note* Diagnosis Onset Date Resolution Status 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 Disproportion of reconstructed breast acute Prophylactic breast removal acute Cancer phobia chronic Family history of breast cancer chronic Former smoker chronic 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 removal c hronic Ptosis of both breasts resol margarita 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 Disproportion of reconstructed breast acute Prophylactic breast removal acute Cancer phobia chronic Family history of breast cancer chronic Former smoker chronic 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 removal c hronic Acute postoperative anemia due to expected blood loss resolved PONV (postoperative nausea and vomiting) resolved Ptosis of both breasts resol margarita 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 Disproportion of reconstructed breast acute Prophylactic breast removal acute Cancer phobia chronic Family history of breast cancer chronic Former smoker chronic 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 Acute postoperative anemia due to expected blood loss resolved PONV (postoperative nausea and vomiting) resolved Ptosis of both breasts resol margarita 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 Disproportion of reconstructed breast acute Prophylactic breast removal acute Cancer phobia chronic Family history of breast cancer chronic Former smoker chronic 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 Acute postoperative anemia due to expected blood loss resolved PONV (postoperative nausea and vomiting) resolved Ptosis of both breasts resol margarita 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 Disproportion of reconstructed breast acute Other complications of skin graft (allograft) (autograft) acute Prophylactic breast removal acute Cancer phobia chronic Family history of breast cancer chronic Former smoker chronic 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 Acute postoperative anemia due to expected blood loss resolved PONV (postoperative nausea and vomiting) resolved Ptosis of both breasts resol margarita 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 Disproportion of reconstructed breast acute History of bilateral breast implants acute Other complications of skin graft (allograft) (autograft) acute Prophylactic breast removal acute Status post bilateral breast reconstruction acute Status post bilateral mastectomy acute Cancer phobia chronic Family history of breast cancer chronic Former smoker chronic 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 Acute postoperative anemia due to expected blood loss resolved 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 Disproportion of reconstructed breast acute 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 Nonhealing surgical wound ac [place] Other complications of skin graft (allograft) (autograft) acute Prophylactic breast removal acute Cancer phobia chronic Family history of breast cancer chronic 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 Acute postoperative anemia due to expected blood loss resolved 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 Disproportion of reconstructed breast acute Exposed breast implant acute Infection of breast implant acute 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 Nonhealing surgical wound ac [place] Other complications of skin graft (allograft) (autograft) acute Prophylactic breast removal acute Cancer phobia chronic Family history of breast cancer chronic 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 Acute postoperative anemia due to expected blood loss resolved 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 Disproportion of reconstructed breast acute Exposed breast implant acute Infection of breast implant acute 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 Nonhealing surgical wound ac [place] Other complications of skin graft (allograft) (autograft) acute Prophylactic breast removal acute Cancer phobia chronic Family history of breast cancer chronic 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 Acute postoperative anemia due to expected blood loss resolved 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 Disproportion of reconstructed breast acute History of bilateral breast implants acute Nonhealing surgical wound ac [place] Other complications of skin graft (allograft) (autograft) acute Prophylactic breast removal acute Status post bilateral breast reconstruction acute Status post bilateral mastectomy acute Cancer phobia chronic Family history of breast cancer chronic Former smoker chronic 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 Monoallelic mutation of DEIYS gene chronic Acute postoperative anemia due to expected blood loss resolved 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 Disproportion of reconstructed breast acute Exposed breast implant acute History of bilateral breast implants acute History of bilateral removal of breast implants acute Infection of breast implant acute 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 Nonhealing surgical wound ac [place] Other complications of skin graft (allograft) (autograft) acute Prophylactic breast removal acute Status post bilateral breast reconstruction acute Status post bilateral mastectomy acute Cancer phobia chronic Family history of breast cancer chronic Former smoker chronic 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 removal c hronic Acute postoperative anemia due to expected blood loss resolved Ptosis of both breasts resol margarita 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 Disproportion of reconstructed breast acute Exposed breast implant acute History of bilateral breast implants acute History of bilateral removal of breast implants acute Infection of breast implant acute 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 Nonhealing surgical wound ac [place] Other complications of skin graft (allograft) (autograft) acute Status post bilateral mastectomy acute Cancer phobia chronic Family history of breast cancer chronic Former smoker chronic 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 [facility] Work Phone: Evaluation note* Diagnosis Onset Date Resolution Status 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 Disproportion of reconstructed breast acute Exposed breast implant acute History of bilateral breast implants acute Infection of breast implant acute 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 Nonhealing surgical wound ac [place] Other complications of skin graft (allograft) (autograft) acute Status post bilateral mastectomy acute Cancer phobia chronic Family history of breast cancer chronic Former smoker chronic 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 History of bilateral removal of breast implants 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 Disproportion of reconstructed breast acute Exposed breast implant acute History of bilateral breast implants acute History of reconstruction of both breasts acute Infection of breast implant acute 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 Nonhealing surgical wound ac [place] Other complications of skin graft (allograft) (autograft) acute Status post bilateral mastectomy acute Cancer phobia chronic Family history of breast cancer chronic Former smoker chronic 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 Disproportion of reconstructed breast acute Exposed breast implant acute Fungal skin infection acute History of bilateral breast implants acute History of reconstruction of both breasts acute Infection of breast implant acute 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 Nonhealing surgical wound ac [place] Other complications of skin graft (allograft) (autograft) acute Postoperative anemia acute Status post bilateral mastectomy acute Cancer phobia chronic Family history of breast cancer chronic Former smoker chronic 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 Disproportion of reconstructed breast acute Exposed breast implant acute Fungal skin infection acute History of bilateral breast implants acute History of reconstruction of both breasts acute Infection of breast implant acute 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 Nonhealing surgical wound ac [place] Other complications of skin graft (allograft) (autograft) acute Postoperative anemia acute Status post bilateral mastectomy acute Cancer phobia chronic Family history of breast cancer chronic Former smoker chronic 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 Disproportion of reconstructed breast acute Exposed breast implant acute 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 Cancer phobia chronic Family history of breast cancer chronic Former smoker chronic 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 History of prophylactic mastectomy of both breasts 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 Status post implant removal from both breasts chronic [facility] Work Phone: Evaluation note* Diagnosis Onset Date Resolution Status 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 Disproportion of reconstructed breast acute Exposed breast implant acute Fungal skin infection acute History of bilateral breast implants acute History of reconstruction of both breasts acute Infection of breast implant acute 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 Nonhealing surgical wound ac [place] Other complications of skin graft (allograft) (autograft) acute Postoperative anemia acute Status post bilateral mastectomy acute Cancer phobia chronic Family history of breast cancer chronic Former smoker chronic 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 Disproportion of reconstructed breast acute Exposed breast implant acute Fungal skin infection acute History of bilateral breast implants acute History of reconstruction of both breasts acute Infection of breast implant acute 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 Nonhealing surgical wound ac [place] Other complications of skin graft (allograft) (autograft) acute Postoperative anemia acute Status post bilateral mastectomy acute Cancer phobia chronic Family history of breast cancer chronic Former smoker chronic 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 Disproportion of reconstructed breast acute Exposed breast implant acute 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 Cancer phobia chronic Family history of breast cancer chronic Former smoker chronic 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 History of prophylactic mastectomy of both breasts 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 Status post implant removal from both breasts chronic 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 Disproportion of reconstructed breast acute 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 Cancer phobia chronic Family history of breast cancer chronic Former smoker chronic 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 of prophylactic mastectomy of both breasts 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 Resistance to other single specified antibiotic chronic Status post implant removal from both breasts chronic 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 Disproportion of reconstructed breast acute 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 Cancer phobia chronic Family history of breast cancer chronic Former smoker chronic 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 of prophylactic mastectomy of both breasts 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 Resistance to other single specified antibiotic chronic Status post implant removal from both breasts chronic 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 Disproportion of reconstructed breast acute 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 Cancer phobia chronic Family history of breast cancer chronic Former smoker chronic 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 of prophylactic mastectomy of both breasts 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 Resistance to other single specified antibiotic chronic Status post implant removal from both breasts chronic 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 Disproportion of reconstructed breast acute 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 Cancer phobia chronic Family history of breast cancer chronic Former smoker chronic 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 of prophylactic mastectomy of both breasts 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 Resistance to other single specified antibiotic chronic Status post implant removal from both breasts chronic [facility] Work Phone: Evaluation note* Diagnosis Onset Date Resolution Status 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 Disproportion of reconstructed breast acute 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 Cancer phobia chronic Family history of breast cancer chronic Former smoker chronic 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 of prophylactic mastectomy of both breasts 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 Resistance to other single specified antibiotic chronic Status post implant removal from both breasts chronic 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 Disproportion of reconstructed breast acute 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 Cancer phobia chronic Family history of breast cancer chronic Former smoker chronic 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 of prophylactic mastectomy of both breasts 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 Resistance to other single specified antibiotic chronic Status post implant removal from both breasts chronic 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 Disproportion of reconstructed breast acute 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 Cancer phobia chronic Family history of breast cancer chronic Former smoker chronic 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 of prophylactic mastectomy of both breasts 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 Resistance to other single specified antibiotic chronic Status post implant removal from both breasts chronic 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 Disproportion of reconstructed breast acute 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 Cancer phobia chronic Family history of breast cancer chronic Former smoker chronic 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 of prophylactic mastectomy of both breasts 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 Resistance to other single specified antibiotic chronic Status post implant removal from both breasts chronic 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 Disproportion of reconstructed breast acute 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 Cancer phobia chronic Family history of breast cancer chronic Former smoker chronic 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 of prophylactic mastectomy of both breasts 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 Resistance to other single specified antibiotic chronic Status post implant removal from both breasts chronic 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 Disproportion of reconstructed breast acute 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 Cancer phobia chronic Family history of breast cancer chronic Former smoker chronic 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 of prophylactic mastectomy of both breasts 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 Resistance to other single specified antibiotic chronic Status post implant removal from both breasts chronic 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 Disproportion of reconstructed breast acute 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 Cancer phobia chronic Family history of breast cancer chronic Former smoker chronic 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 of prophylactic mastectomy of both breasts 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 Resistance to other single specified antibiotic chronic Status post implant removal from both breasts chronic 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 Disproportion of reconstructed breast acute 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 Cancer phobia chronic Family history of breast cancer chronic Former smoker chronic 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 of prophylactic mastectomy of both breasts 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 Resistance to other single specified antibiotic chronic Status post implant removal from both breasts chronic 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 Disproportion of reconstructed breast acute 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 Cancer phobia chronic Family history of breast cancer chronic Former smoker chronic 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 of prophylactic mastectomy of both breasts 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 Resistance to other single specified antibiotic chronic Status post implant removal from both breasts chronic 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 Disproportion of reconstructed breast acute 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 Cancer phobia chronic Family history of breast cancer chronic Former smoker chronic 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 of prophylactic mastectomy of both breasts 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 Resistance to other single specified antibiotic chronic Status post implant removal from both breasts chronic 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 Disproportion of reconstructed breast acute History of reconstruction of both breasts acute Infection of breast implant acute 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 Status post bilateral breast reconstruction acute Status post bilateral mastectomy acute Cancer phobia chronic Family history of breast cancer chronic Former smoker chronic 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 History of bilateral removal of breast implants chronic History of prophylactic mastectomy of both breasts 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 Resistance to other single specified antibiotic chronic [facility] Work Phone: Evaluation note* Diagnosis Vaginal Pap smear Special screening for malignant neoplasms, vagina Vaginal Pap smear with LGSIL Papanicolaou smear of vagina with low grade squamous intraepithelial lesion (LGSIL) documented in this encounter [facility] Work Phone: Evaluation note* Diagnosis Left leg swelling- Primary Esophagitis, unspecified without bleeding Herpes Herpes simplex without mention of complication Migraine without status migrainosus, not intractable, unspecified migraine type documented in this encounter [facility] Work Phone: Evaluation note* Diagnosis Cutaneous abscess of left axilla- Primary documented in this encounter [facility] Work Phone: Evaluation note* Diagnosis History of prophylactic mastectomy of both breasts- Primary Preop examination Unspecified pre-operative examination Migraine without status migrainosus, not intractable, unspecified migraine type Gastroesophageal reflux disease without esophagitis Esophageal reflux Herpes Herpes simplex without mention of complication documented in this encounter [facility] Work Phone: Evaluation note* Diagnosis Vaginal Pap smear Special screening for malignant neoplasms, vagina Encounter for gynecological examination without abnormal finding documented in this encounter [facility] Work Phone: Evaluation note* Diagnosis Preop examination- Primary Unspecified pre-operative examination Gastroesophageal reflux disease, unspecified whether esophagitis present Migraine without status migrainosus, not intractable, unspecified migraine type Herpes Herpes simplex without mention of complication History of prophylactic mastectomy of both breasts documented in this encounter [facility] Work Phone: History of Present illness NarrativeHere for routine f/u migraines. She states that she is doing well, no specific concerns at this time.[facility] Work Phone: History of Present illness NarrativePatient presents for colposcopy due to mild dysplasia noted on recent Pap smear. Patient had previous hysterectomy.[address] Work Phone: Hospital Discharge instructions Additional Instructions [facility] Work [facility]: Reason for referral (narrative)No reason for referral information availableWBellevue Hospital Work Phone: Summary Purpose Family History No [...] female breast: Paternal Grandmother, Paternal Aunt Comments:Aunt [id number] of o nset age; Status:Active Aneurysm: Uncle [...] female breast: Paternal Grandmother, Paternal Aunt Comments:Aunt [id number] of o nset age; Status:Active Unknown Family Member Name Dates Details Family history of migraine h eadaches: Mother, Sister, Grandparent(V17.2, Z82.0) Status:Active Family history of diabetes m ellitus: Father(V18.0, Z83.3) Comments:Diabetes Mellitus T ype 2; Status:Active Family history of hypertensi on: Father(V17.49, Z82.49) Status:Active Aneurysm: Uncle Status:Active Primary malignant neoplasm o f female breast: Paternal Grandmother, Paternal Aunt Comments:Aunt [id number] of o nset age; Status:Active Unknown Family Member Name Dates Details Family history of migraine h eadaches: Mother, Sister, Grandparent(V17.2, Z82.0) Status:Active Family history of diabetes m ellitus: Father(V18.0, Z83.3) Comments:Diabetes Mellitus T ype 2; Status:Active Family history of hypertensi on: Father(V17.49, Z82.49) Status:Active Aneurysm: Uncle Status:Active Primary malignant neoplasm o f female breast: Paternal Grandmother, Paternal Aunt Comments:Aunt p2Vdfalti of o nset age; Status:Active Unknown Family Member Name Dates Details Family history of migraine h eadaches: Mother, Sister, Grandparent(V17.2, Z82.0) Status:Active Family history of diabetes m ellitus: Father(V18.0, Z83.3) Comments:Diabetes Mellitus T ype 2; Status:Active Family history of hypertensi on: Father(V17.49, Z82.49) Status:Active Aneurysm: Uncle Status:Active Primary malignant neoplasm o f female breast: Paternal Grandmother, Paternal Aunt Comments:Aunt [id number] of o nset age; Status:Active Unknown Family Member Name Dates Details Family history of migraine h eadaches: Mother, Sister, Grandparent(V17.2, Z82.0) Status:Active Family history of diabetes m ellitus: Father(V18.0, Z83.3) Comments:Diabetes Mellitus T ype 2; Status:Active Family history of hypertensi on: Father(V17.49, Z82.49) Status:Active Aneurysm: Uncle Status:Active Primary malignant neoplasm o f female breast: Paternal Grandmother, Paternal Aunt Comments:Aunt [id number] of o nset age; Status:Active Unknown Family Member Name Dates Details Family history of migraine h eadaches: Mother, Sister, Grandparent(V17.2, Z82.0) Status:Active Family history of diabetes m ellitus: Father(V18.0, Z83.3) Comments:Diabetes Mellitus T ype 2; Status:Active Family history of hypertensi on: Father(V17.49, Z82.49) Status:Active Aneurysm: Uncle Status:Active Primary malignant neoplasm o f female breast: Paternal Grandmother, Paternal Aunt Comments:Aunt f2Yzqjjof of o nset age; Status:Active Unknown Family Member Name Dates Details Family history of diabetes m ellitus: Father(V18.0, Z83.3) Comments:Diabetes Mellitus T ype 2; Status:Active Family history of migraine h eadaches: Mother, Sister, Grandparent(V17.2, Z82.0) Status:Active Family history of hypertensi on: Father(V17.49, Z82.49) Status:Active Aneurysm: Uncle Status:Active Primary malignant neoplasm o f female breast: Paternal Grandmother, Paternal Aunt Comments:Aunt l3Crbwmyp of o nset age; Status:Active Unknown Family Member Name Dates Details Family history of diabetes m ellitus: Father(V18.0, Z83.3) Comments:Diabetes Mellitus T ype 2; Status:Active Family history of migraine h eadaches: Mother, Sister, Grandparent(V17.2, Z82.0) Status:Active Family history of hypertensi on: Father(V17.49, Z82.49) Status:Active Aneurysm: Uncle Status:Active Primary malignant neoplasm o f female breast: Paternal Grandmother, Paternal Aunt Comments:Aunt [id number] of o nset age; Status:Active Unknown Family Member Name Dates Details Family history of diabetes m ellitus: Father(V18.0, Z83.3) Comments:Diabetes Mellitus T ype 2; Status:Active Family history of migraine h eadaches: Mother, Sister, Grandparent(V17.2, Z82.0) Status:Active Family history of hypertensi on: Father(V17.49, Z82.49) Status:Active Aneurysm: Uncle Status:Active Primary malignant neoplasm o f female breast: Paternal Grandmother, Paternal Aunt Comments:Aunt [id number] of o nset age; Status:Active Relationship Condition Age at Onset Recorded Date/T aissatou grandmother Malignant neoplasm of breast Unknown aunt Malignant neoplasm of breast Unknown father Diabetes mellitus Unknown Unknown Family Member Name Dates Details Family history of migraine h eadaches: Mother, Sister, Grandparent(V17.2, Z82.0) Status:Active Family history of diabetes m ellitus: Father(V18.0, Z83.3) Comments:Diabetes Mellitus T ype 2; Status:Active Family history of hypertensi on: Father(V17.49, Z82.49) Status:Active Aneurysm: Uncle Status:Active Primary malignant neoplasm o f female breast: Paternal Grandmother, Paternal Aunt Comments:Aunt l2Vdhznja of o nset age; Status:Active Unknown Family Member Name Dates Details Family history of migraine h eadaches: Mother, Sister, Grandparent(V17.2, Z82.0) Status:Active Family history of diabetes m ellitus: Father(V18.0, Z83.3) Comments:Diabetes Mellitus T ype 2; Status:Active Family history of hypertensi on: Father(V17.49, Z82.49) Status:Active Aneurysm: Uncle Status:Active Primary malignant neoplasm o f female breast: Paternal Grandmother, Paternal Aunt Comments:Aunt [id number] of o nset age; Status:Active Advance Directives No Advanced Directives Records Found Advance Directive Response Recorded Date/ Time Living Will No March 28 9:12am Power of Breakfast Supervisor No March 28, 2022 9:12am Advance Directive Response Recorded Date/ Time Living Will No May 30, 2022 4:49pm Power of Breakfast Supervisor No May 30 4:49pm Advance Directive Response Recorded Date/ Time Living Will No June 10, 2022 2:59pm Power of Breakfast Supervisor No June 10 2:59pm Advance Directive Response Recorded Date/ Time Living Will No October 03, 2022 3:13pm Power of Breakfast Supervisor No October 03 3:13pm Advance Directive Response Recorded Date/ Time Living Will No January 21 6:24pm Power of Breakfast Supervisor No January 21, 2023 6:24pm Advance Directive Response Recorded Date/ Time Living Will No March 31 9:33pm Do you have a Healthcare Power of Breakfast Supervisor? No March 31, 2024 9:33pm Chief Complaint Med refillsPatient presents today stating she has a boil in her groin area that will pop and then come back. Patient would like to discuss how to get rid of this boil. lmp hysterSelf referred for discussion of risk reducing bilateral mastectomiesSelf referred for discussion of risk reducing bilateral mastectomies ckup, ER f/u, [facility] 03/01/22, states infection to throat, but was not told what kind of infection, states today she has nasal congestion, yellow drainage, cough, x2 teeth extracted 01/29/22.ckup, ER f/u, [facility] 03/01/22, states infection to throat, but was not told what kind of infection, states today she has nasal congestion, yellow drainage, cough, x2 teeth extracted 01/29/22.Patient is here for her yearly exam and pap test. Hysterectomy in 2019. Patient had bilateral mastectomy with reconstruction on 04/11/22. Patient has no concerns at this time. Chief Complaint and Reason for Visit Chief Complaint Consult PREOP BILATERAL MASTECTOMY BILATERAL MASTECTOMY BILATERAL MASTECTOMY BILATERAL MASTECTOMY Reason for Visit Acquired absence of bilateral breasts and nipples Disproportion of reconstructed breast Prophylactic breast removal Cancer phobia Family history of breast cancer Former smoker Genetic 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 History of bilateral oophorectomy Monoallelic mutation of DEISY gene Prophylactic ovary removal 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 Disproportion of reconstructed breast Prophylactic breast removal Cancer phobia Family history of breast cancer Former smoker Genetic 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 History of bilateral oophorectomy Monoallelic mutation of DEISY gene Prophylactic ovary removal 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 Acute postoperative anemia due to expected blood loss Disproportion of reconstructed breast PONV (postoperative nausea and vomiting) Prophylactic breast removal Cancer phobia Family history of breast cancer Former smoker Genetic 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 History of bilateral oophorectomy Monoallelic mutation of DEISY gene Prophylactic ovary removal Ptosis of both breasts Chief Complaint Consult PREOP BILATERAL MASTECTOMY Bilat prophylactic mastectomy with reconstruction BILATERAL MASTECTOMY BILATERAL MASTECTOMY Bilat prophylactic mastectomy with reconstruction POST OP CK POST OP CK E ORDER POST OP CK wound wound PRE WOUND TX Reason for Visit Acquired absence of bilateral breasts and nipples Disproportion of reconstructed breast Prophylactic breast removal Cancer phobia Family history of breast cancer Former smoker Genetic 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 History of bilateral oophorectomy Monoallelic mutation of DEISY gene Prophylactic ovary removal 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 Disproportion of reconstructed breast Prophylactic breast removal Cancer phobia Family history of breast cancer Former smoker Genetic 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 History of bilateral oophorectomy Monoallelic mutation of DEISY gene Prophylactic ovary removal 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 Acute postoperative anemia due to expected blood loss Disproportion of reconstructed breast Prophylactic breast removal Cancer phobia Family history of breast cancer Former smoker Genetic 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 History of bilateral oophorectomy Monoallelic mutation of DEISY gene Prophylactic ovary removal Ptosis of both breasts PONV (postoperative nausea and vomiting) Acquired absence of bilateral breasts and nipples Acute postoperative anemia due to expected blood loss Disproportion of reconstructed breast Prophylactic breast removal Cancer phobia Family history of breast cancer Former smoker Genetic 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 History of bilateral oophorectomy 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 PONV (postoperative nausea and vomiting) Acquired absence of bilateral breasts and nipples Acute postoperative anemia due to expected blood loss Disproportion of reconstructed breast Prophylactic breast removal Cancer phobia Family history of breast cancer Former smoker Genetic 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 History of bilateral oophorectomy 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 PONV (postoperative nausea and vomiting) Acquired absence of bilateral breasts and nipples Acute postoperative anemia due to expected blood loss Disproportion of reconstructed breast Other complications of skin graft (allograft) (autograft) Prophylactic breast removal Cancer phobia Family history of breast cancer Former smoker Genetic 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 History of bilateral oophorectomy 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 PONV (postoperative nausea and vomiting) Acquired absence of bilateral breasts and nipples Acute postoperative anemia due to expected blood loss Disproportion of reconstructed breast Other complications of skin graft (allograft) (autograft) Prophylactic breast removal Status post bilateral breast reconstruction Status post bilateral mastectomy Cancer phobia Family history of breast cancer Former smoker 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 Chief Complaint PREOP BILATERAL MASTECTOMY Bilat prophylactic mastectomy with reconstruction BILATERAL MASTECTOMY BILATERAL MASTECTOMY Bilat prophylactic mastectomy with reconstruction POST OP CK POST OP CK E ORDER POST OP CK wound PRE WOUND TX wound wound wound Reason for Visit Acquired absence of bilateral breasts and nipples Disproportion of reconstructed breast Prophylactic breast removal Cancer phobia Family history of breast cancer Former smoker Genetic 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 History of bilateral oophorectomy Monoallelic mutation of DEISY gene Prophylactic ovary removal 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 Acute postoperative anemia due to expected blood loss Disproportion of reconstructed breast Prophylactic breast removal Cancer phobia Family history of breast cancer Former smoker Genetic 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 History of bilateral oophorectomy Monoallelic mutation of DEISY gene Prophylactic ovary removal Ptosis of both breasts PONV (postoperative nausea and vomiting) Acquired absence of bilateral breasts and nipples Acute postoperative anemia due to expected blood loss Disproportion of reconstructed breast Prophylactic breast removal Cancer phobia Family history of breast cancer Former smoker Genetic 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 History of bilateral oophorectomy 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 PONV (postoperative nausea and vomiting) Acquired absence of bilateral breasts and nipples Acute postoperative anemia due to expected blood loss Disproportion of reconstructed breast Prophylactic breast removal Cancer phobia Family history of breast cancer Former smoker Genetic 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 History of bilateral oophorectomy 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 PONV (postoperative nausea and vomiting) Acquired absence of bilateral breasts and nipples Acute postoperative anemia due to expected blood loss Disproportion of reconstructed breast Other complications of skin graft (allograft) (autograft) Prophylactic breast removal Cancer phobia Family history of breast cancer Former smoker Genetic 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 History of bilateral oophorectomy 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 PONV (postoperative nausea and vomiting) Acquired absence of bilateral breasts and nipples Acute postoperative anemia due to expected blood loss Disproportion of reconstructed breast History of bilateral breast implants Other complications of skin graft (allograft) (autograft) Prophylactic breast removal Status post bilateral breast reconstruction Status post bilateral mastectomy Cancer phobia Family history of breast cancer Former smoker 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 Chief Complaint PREOP BILATERAL MASTECTOMY Bilat prophylactic mastectomy with reconstruction BILATERAL MASTECTOMY BILATERAL MASTECTOMY Bilat prophylactic mastectomy with reconstruction POST OP CK POST OP CK E ORDER POST OP CK wound PRE WOUND TX wound wound wound Post Op wound wound wound Post Op wound Pre op visit wound REMOVAL BREAST IMPLANT CAPSULECTOMY BILATERAL REMOVAL BREAST IMPLANT CAPSULECTOMY BILATERAL Reason for Visit Acquired absence of bilateral breasts and nipples Disproportion of reconstructed breast Prophylactic breast removal Cancer phobia Family history of breast cancer Former smoker Genetic 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 History of bilateral oophorectomy Monoallelic mutation of DEISY gene Prophylactic ovary removal 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 Acute postoperative anemia due to expected blood loss Disproportion of reconstructed breast Prophylactic breast removal Cancer phobia Family history of breast cancer Former smoker Genetic 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 History of bilateral oophorectomy Monoallelic mutation of DEISY gene Prophylactic ovary removal Ptosis of both breasts PONV (postoperative nausea and vomiting) Acquired absence of bilateral breasts and nipples Acute postoperative anemia due to expected blood loss Disproportion of reconstructed breast Prophylactic breast removal Cancer phobia Family history of breast cancer Former smoker Genetic 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 History of bilateral oophorectomy 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 PONV (postoperative nausea and vomiting) Acquired absence of bilateral breasts and nipples Acute postoperative anemia due to expected blood loss Disproportion of reconstructed breast Prophylactic breast removal Cancer phobia Family history of breast cancer Former smoker Genetic 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 History of bilateral oophorectomy 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 PONV (postoperative nausea and vomiting) Acquired absence of bilateral breasts and nipples Acute postoperative anemia due to expected blood loss Disproportion of reconstructed breast Other complications of skin graft (allograft) (autograft) Prophylactic breast removal Cancer phobia Family history of breast cancer Former smoker Genetic 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 History of bilateral oophorectomy 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 PONV (postoperative nausea and vomiting) Acquired absence of bilateral breasts and nipples Acute postoperative anemia due to expected blood loss Disproportion of reconstructed breast History of bilateral breast implants Other complications of skin graft (allograft) (autograft) Prophylactic breast removal Status post bilateral breast reconstruction Status post bilateral mastectomy Cancer phobia Family history of breast cancer Former smoker 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 Acute postoperative anemia due to expected blood loss Disproportion 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 Nonhealing surgical wound Other complications of skin graft (allograft) (autograft) Prophylactic breast removal Cancer phobia Family history of breast cancer 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 Acute postoperative anemia due to expected blood loss Disproportion of reconstructed breast Exposed breast implant Infection of breast implant Methicillin resistant Staphylococcus epidermidis infection Nonhealing surgical wound Other complications of skin graft (allograft) (autograft) Prophylactic breast removal Cancer phobia Family history of breast cancer 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 Acute postoperative anemia due to expected blood loss Disproportion of reconstructed breast Exposed breast implant Infection of breast implant Methicillin resistant Staphylococcus epidermidis infection Nonhealing surgical wound Other complications of skin graft (allograft) (autograft) Prophylactic breast removal Cancer phobia Family history of breast cancer 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 Acute postoperative anemia due to expected blood loss Disproportion of reconstructed breast Failed skin graft Failure of flap graft History of bilateral breast implants Nonhealing surgical wound Other complications of skin graft (allograft) (autograft) Prophylactic breast removal Status post bilateral breast reconstruction Status post bilateral mastectomy Cancer phobia Family history of breast cancer Former smoker Genetic 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 History of bilateral oophorectomy 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 Acute postoperative anemia due to expected blood loss Disproportion of reconstructed breast Exposed breast implant Failed skin graft Failure of flap graft History of bilateral breast implants Infection of breast implant Methicillin resistant Staphylococcus epidermidis infection Nonhealing surgical wound Other complications of skin graft (allograft) (autograft) Status post bilateral breast reconstruction Status post bilateral mastectomy Cancer phobia Family history of breast cancer Former smoker Genetic 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 History of bilateral oophorectomy Monoallelic mutation of DEISY gene Prophylactic ovary removal Ptosis of both breasts Chief Complaint PREOP BILATERAL MASTECTOMY Bilat prophylactic mastectomy with reconstruction BILATERAL MASTECTOMY BILATERAL MASTECTOMY Bilat prophylactic mastectomy with reconstruction POST OP CK POST OP CK E ORDER POST OP CK wound PRE WOUND TX wound wound wound Post Op wound wound wound Post Op wound Pre op visit wound REMOVAL BREAST IMPLANT CAPSULECTOMY BILATERAL REMOVAL BREAST IMPLANT CAPSULECTOMY BILATERAL REMOVAL BREAST IMPLANT CAPSULECTOMY BILATERAL REMOVAL BREAST IMPLANT CAPSULECTOMY BILATERAL REMOVAL BREAST IMPLANT CAPSULECTOMY BILATERAL Post Op Reason for Visit Acquired absence of bilateral breasts and nipples Disproportion of reconstructed breast Prophylactic breast removal Cancer phobia Family history of breast cancer Former smoker Genetic 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 History of bilateral oophorectomy Monoallelic mutation of DEISY gene Prophylactic ovary removal 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 Disproportion of reconstructed breast Prophylactic breast removal Cancer phobia Family history of breast cancer Former smoker Genetic 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 History of bilateral oophorectomy Monoallelic mutation of DEISY gene Prophylactic ovary removal Acute postoperative anemia due to expected blood loss PONV (postoperative nausea and vomiting) 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 Disproportion of reconstructed breast Prophylactic breast removal Cancer phobia Family history of breast cancer Former smoker Genetic 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 History of bilateral oophorectomy Monoallelic mutation of DEISY gene Acute postoperative anemia due to expected blood loss PONV (postoperative nausea and vomiting) 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 Disproportion of reconstructed breast Prophylactic breast removal Cancer phobia Family history of breast cancer Former smoker Genetic 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 History of bilateral oophorectomy Monoallelic mutation of DEISY gene Acute postoperative anemia due to expected blood loss PONV (postoperative nausea and vomiting) 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 Disproportion of reconstructed breast Other complications of skin graft (allograft) (autograft) Prophylactic breast removal Cancer phobia Family history of breast cancer Former smoker Genetic 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 History of bilateral oophorectomy Monoallelic mutation of DEISY gene Acute postoperative anemia due to expected blood loss PONV (postoperative nausea and vomiting) 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 Disproportion of reconstructed breast History of bilateral breast implants Other complications of skin graft (allograft) (autograft) Prophylactic breast removal Status post bilateral breast reconstruction Status post bilateral mastectomy Cancer phobia Family history of breast cancer Former smoker 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 Acute postoperative anemia due to expected blood loss 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 Nonhealing surgical wound Other complications of skin graft (allograft) (autograft) Prophylactic breast removal Cancer phobia Family history of breast cancer 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 Acute postoperative anemia due to expected blood loss Acquired absence of bilateral breasts and nipples Disproportion of reconstructed breast Exposed breast implant Infection of breast implant Methicillin resistant Staphylococcus epidermidis infection Nonhealing surgical wound Other complications of skin graft (allograft) (autograft) Prophylactic breast removal Cancer phobia Family history of breast cancer 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 Acute postoperative anemia due to expected blood loss Acquired absence of bilateral breasts and nipples Disproportion of reconstructed breast Exposed breast implant Infection of breast implant Methicillin resistant Staphylococcus epidermidis infection Nonhealing surgical wound Other complications of skin graft (allograft) (autograft) Prophylactic breast removal Cancer phobia Family history of breast cancer 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 Acute postoperative anemia due to expected blood loss Acquired absence of bilateral breasts and nipples Disproportion of reconstructed breast History of bilateral breast implants Nonhealing surgical wound Other complications of skin graft (allograft) (autograft) Prophylactic breast removal Status post bilateral breast reconstruction Status post bilateral mastectomy Cancer phobia Family history of breast cancer Former smoker Genetic susceptibility to malignant neoplasm of breast History of bilateral oophorectomy Monoallelic mutation of DEISY gene Acute postoperative anemia due to expected blood loss Acquired absence of bilateral breasts and nipples Disproportion of reconstructed breast Exposed breast implant History of bilateral breast implants History of bilateral removal of breast implants Infection of breast implant Methicillin resistant Staphylococcus epidermidis infection Nonhealing surgical wound Other complications of skin graft (allograft) (autograft) Prophylactic breast removal Status post bilateral breast reconstruction Status post bilateral mastectomy Cancer phobia Family history of breast cancer Former smoker Genetic susceptibility to malignant neoplasm of breast History of bilateral oophorectomy Monoallelic mutation of DEISY gene Prophylactic ovary removal Acute postoperative anemia due to expected blood loss 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 Disproportion of reconstructed breast Exposed breast implant History of bilateral breast implants History of bilateral removal of breast implants Infection of breast implant Methicillin resistant Staphylococcus epidermidis infection Nonhealing surgical wound Other complications of skin graft (allograft) (autograft) Status post bilateral mastectomy Cancer phobia Family history of breast cancer Former smoker Genetic susceptibility to malignant neoplasm of breast History of bilateral oophorectomy Monoallelic mutation of DEISY gene Chief Complaint Post Op Post Op Post Op E ORDER Post Op follow up prior to sx BILATERAL BREAST RECONSTRUCTION TISSUE PRINTING TABLE HAND Reason for Visit Acquired absence of bilateral breasts and nipples Disproportion of reconstructed breast Exposed breast implant History of bilateral breast implants Infection of breast implant Methicillin resistant Staphylococcus epidermidis infection Nonhealing surgical wound Other complications of skin graft (allograft) (autograft) Status post bilateral mastectomy Cancer phobia Family history of breast cancer Former smoker Genetic susceptibility to malignant neoplasm of breast History of bilateral oophorectomy History of bilateral removal of breast implants 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 Disproportion of reconstructed breast Exposed breast implant History of bilateral breast implants History of reconstruction of both breasts Infection of breast implant Methicillin resistant Staphylococcus epidermidis infection Nonhealing surgical wound Other complications of skin graft (allograft) (autograft) Status post bilateral mastectomy Cancer phobia Family history of breast cancer Former smoker Genetic susceptibility to malignant neoplasm of breast History of bilateral oophorectomy 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 Disproportion of reconstructed breast Exposed breast implant Fungal skin infection History of bilateral breast implants History of reconstruction of both breasts Infection of breast implant Methicillin resistant Staphylococcus epidermidis infection Nonhealing surgical wound Other complications of skin graft (allograft) (autograft) Postoperative anemia Status post bilateral mastectomy Cancer phobia Family history of breast cancer Former smoker Genetic susceptibility to malignant neoplasm of breast History of bilateral oophorectomy 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 Disproportion of reconstructed breast Exposed breast implant Fungal skin infection History of bilateral breast implants History of reconstruction of both breasts Infection of breast implant Methicillin resistant Staphylococcus epidermidis infection Nonhealing surgical wound Other complications of skin graft (allograft) (autograft) Postoperative anemia Status post bilateral mastectomy Cancer phobia Family history of breast cancer Former smoker Genetic susceptibility to malignant neoplasm of breast History of bilateral oophorectomy 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 Disproportion of reconstructed breast Exposed breast implant Methicillin resistant Staphylococcus epidermidis infection Cancer phobia Family history of breast cancer Former smoker Genetic susceptibility to malignant neoplasm of breast History of bilateral oophorectomy History of prophylactic mastectomy of both breasts Monoallelic mutation of DEISY gene Status post implant removal from both breasts Chief Complaint Post Op E ORDER Post Op follow up prior to sx BILATERAL BREAST RECONSTRUCTION TISSUE PRINTING TABLE HAND BILATERAL BREAST RECONSTRUCTION TISSUE PRINTING TABLE HAND BILATERAL BREAST RECONSTRUCTION TISSUE PRINTING TABLE HAND 1st post op Post Op Post Op E ORDERS Reason for Visit Acquired absence of bilateral breasts and nipples Disproportion of reconstructed breast Exposed breast implant Fungal skin infection History of bilateral breast implants History of reconstruction of both breasts Infection of breast implant Methicillin resistant Staphylococcus epidermidis infection Nonhealing surgical wound Other complications of skin graft (allograft) (autograft) Postoperative anemia Status post bilateral mastectomy Cancer phobia Family history of breast cancer Former smoker Genetic susceptibility to malignant neoplasm of breast History of bilateral oophorectomy 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 Disproportion of reconstructed breast Exposed breast implant Fungal skin infection History of bilateral breast implants History of reconstruction of both breasts Infection of breast implant Methicillin resistant Staphylococcus epidermidis infection Nonhealing surgical wound Other complications of skin graft (allograft) (autograft) Postoperative anemia Status post bilateral mastectomy Cancer phobia Family history of breast cancer Former smoker Genetic susceptibility to malignant neoplasm of breast History of bilateral oophorectomy 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 Disproportion of reconstructed breast Exposed breast implant Methicillin resistant Staphylococcus epidermidis infection Cancer phobia Family history of breast cancer Former smoker Genetic susceptibility to malignant neoplasm of breast History of bilateral oophorectomy History of prophylactic mastectomy of both breasts Monoallelic mutation of DEISY gene Status post implant removal from 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 Cancer phobia Family history of breast cancer Former smoker Genetic susceptibility to malignant neoplasm of breast History of prophylactic mastectomy of both breasts Monoallelic mutation of DEISY gene Resistance to other single specified antibiotic Status post implant removal from 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 Cancer phobia Family history of breast cancer Former smoker Genetic susceptibility to malignant neoplasm of breast History of prophylactic mastectomy of both breasts Monoallelic mutation of DEISY gene Resistance to other single specified antibiotic Status post implant removal from 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 Cancer phobia Family history of breast cancer Former smoker Genetic susceptibility to malignant neoplasm of breast History of prophylactic mastectomy of both breasts Monoallelic mutation of DEISY gene Resistance to other single specified antibiotic Status post implant removal from 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 Cancer phobia Family history of breast cancer Former smoker Genetic susceptibility to malignant neoplasm of breast History of prophylactic mastectomy of both breasts Monoallelic mutation of DEISY gene Resistance to other single specified antibiotic Status post implant removal from both breasts Chief Complaint BILATERAL BREAST REC ONSTRUCTION TISSUE PRINTING TABLE HAND BILATERAL BREAST RECONSTRUCTION TISSUE PRINTING TABLE HAND BILATERAL BREAST RECONSTRUCTION TISSUE PRINTING TABLE HAND 1st post op Post Op Post Op E ORDERS POST OP POST OP POST OP EXPANSION EXPANSION EXPANSION Removal, Breast Implants,Capsulecto Removal, Breast Implants,Capsulecto Removal, Breast Implants,Capsulecto Reason for Visit 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 Cancer phobia Family history of breast cancer Former smoker Genetic susceptibility to malignant neoplasm of breast History of prophylactic mastectomy of both breasts Monoallelic mutation of DEISY gene Resistance to other single specified antibiotic Status post implant removal from 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 Cancer phobia Family history of breast cancer Former smoker Genetic susceptibility to malignant neoplasm of breast History of prophylactic mastectomy of both breasts Monoallelic mutation of DEISY gene Resistance to other single specified antibiotic Status post implant removal from 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 Cancer phobia Family history of breast cancer Former smoker Genetic susceptibility to malignant neoplasm of breast History of prophylactic mastectomy of both breasts Monoallelic mutation of DEISY gene Resistance to other single specified antibiotic Status post implant removal from 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 Cancer phobia Family history of breast cancer Former smoker Genetic susceptibility to malignant neoplasm of breast History of prophylactic mastectomy of both breasts Monoallelic mutation of DEISY gene Resistance to other single specified antibiotic Status post implant removal from 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 Cancer phobia Family history of breast cancer Former smoker Genetic susceptibility to malignant neoplasm of breast History of prophylactic mastectomy of both breasts Monoallelic mutation of DEISY gene Resistance to other single specified antibiotic Status post implant removal from 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 Cancer phobia Family history of breast cancer Former smoker Genetic susceptibility to malignant neoplasm of breast History of prophylactic mastectomy of both breasts Monoallelic mutation of DEISY gene Resistance to other single specified antibiotic Status post implant removal from 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 Cancer phobia Family history of breast cancer Former smoker Genetic susceptibility to malignant neoplasm of breast History of prophylactic mastectomy of both breasts Monoallelic mutation of DEISY gene Resistance to other single specified antibiotic Status post implant removal from 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 Cancer phobia Family history of breast cancer Former smoker Genetic susceptibility to malignant neoplasm of breast History of prophylactic mastectomy of both breasts Monoallelic mutation of DEISY gene Resistance to other single specified antibiotic Status post implant removal from 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 Cancer phobia Family history of breast cancer Former smoker Genetic susceptibility to malignant neoplasm of breast History of prophylactic mastectomy of both breasts Monoallelic mutation of DEISY gene Resistance to other single specified antibiotic Status post implant removal from 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 Cancer phobia Family history of breast cancer Former smoker Genetic susceptibility to malignant neoplasm of breast History of prophylactic mastectomy of both breasts Monoallelic mutation of DEISY gene Resistance to other single specified antibiotic Status post implant removal from 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 Disproportion of reconstructed breast History of reconstruction of both breasts Infection of breast implant Methicillin resistant Staphylococcus epidermidis infection Status post bilateral breast reconstruction Status post bilateral mastectomy Cancer phobia Family history of breast cancer Former smoker Genetic susceptibility to malignant neoplasm of breast History of bilateral oophorectomy History of bilateral removal of breast implants History of prophylactic mastectomy of both breasts Monoallelic mutation of DEISY gene Resistance to other single specified antibiotic Chief Complaint Admit Date pre op March 03, 2024 2:47pm PRE OP March 30, 2024 3 :17pm PREOP March 31, 2024 5 :53am Breast Implant removal and capsulectomy bilateral, March 31, 2024 7:09am Breast Implant removal and capsulectomy bilateral, March 31, 2024 8:00pm Breast Implant removal and capsulectomy bilateral, April 01, 2024 8:30am Breast Implant removal and capsulectomy bilateral, April 02, 2024 6:09am Breast Implant removal and capsulectomy bilateral, April 03, 2024 10:32am POST OP April 07, 2024 1 0:22am FOLLOW UP POST OP April 11, 2024 2 :59pm 1 W F/U April 19, 2024 4 :00pm 1 W F/U April 26, 2024 2:51pm INCISION CHECK May 03, 2024 8:19am 1 W FU May 06, 2024 1:30pm 1 W FU May 10, 2024 3:22pm WOUND May 16, 2024 1:20 pm WOUND May 23, 2024 8:4 6am WOUND June 06, 2024 6:4 6am WOUND June 06, 2024 8:4 5am Reason for Visit Admit Date History of reconstruction of both breast s March 03, 2024 2:47pm Deformity of reconstructed breast Decemb er 2023 2:47pm History of reconstruction of both breast s March 30, 2024 3:17pm Deformity of reconstructed breast Januar y 2024 3:17pm History of reconstruction of both breast s March 31, 2024 8:00pm Deformity of reconstructed breast Januar y 2024 8:00pm History of prophylactic mastectomy of nguyen th breasts March 31, 2024 8:00pm Prophylactic breast removal March 8:00pm History of reconstruction of both breast s April 07, 2024 10:22am History of reconstruction of both breast s April 11, 2024 2:59pm History of reconstruction of both breast s April 19, 2024 4:00pm History of reconstruction of both breast s April 26, 2024 2:51pm Fat necrosis (segmental) of breast Febru [email or web address] 8:19am Seroma May 03, 2024 8:19am Fat necrosis (segmental) of breast Febru 2024 1:30pm Fat necrosis (segmental) of breast Febru 2024 3:22pm History of reconstruction of both breast s May 10, 2024 3:22pm Seroma May 10, 2024 3:22pm History of prophylactic mastectomy of nguyen th breasts May 10, 2024 3:22pm Status post implant removal from both br easts May 10, 2024 3:22pm History of reconstruction of both breast s June 06, 2024 8:45am 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 June 06, 2024 8:45am Chief Complaint Admit Date PRE OP March 30, 2024 3 :17pm PREOP March 31, 2024 5 :53am Breast Implant removal and capsulectomy bilateral, March 31, 2024 7:09am Breast Implant removal and capsulectomy bilateral, March 31, 2024 8:00pm Breast Implant removal and capsulectomy bilateral, April 01, 2024 8:30am Breast Implant removal and capsulectomy bilateral, April 02, 2024 6:09am Breast Implant removal and capsulectomy bilateral, April 03, 2024 10:32am POST OP April 07, 2024 1 0:22am FOLLOW UP POST OP April 11, 2024 2 :59pm 1 W F/U April 19, 2024 4 :00pm 1 W F/U April 26, 2024 2:51pm INCISION CHECK May 03, 2024 8:19am 1 W FU May 06, 2024 1:30pm 1 W FU May 10, 2024 3:22pm WOUND May 16, 2024 1:20 pm WOUND May 23, 2024 8:4 6am WOUND June 06, 2024 6:4 6am WOUND June 06, 2024 8:4 5am WOUND June 20, 2024 8:11 am WOUND June 20, 2024 9:04 am FOLLOW UP July 07, 2024 2:5 9pm 3 W FU July 28, 2024 2:59p m Reason for Visit Admit Date History of reconstruction of both breast s March 30, 2024 3:17pm Deformity of reconstructed breast r y 2024 3:17pm History of reconstruction of both breast s March 31, 2024 8:00pm Deformity of reconstructed breast Januar y 2024 8:00pm History of prophylactic mastectomy of nguyen th breasts March 31, 2024 8:00pm Prophylactic breast removal March 8:00pm History of reconstruction of both breast s April 07, 2024 10:22am History of reconstruction of both breast s April 11, 2024 2:59pm History of reconstruction of both breast s April 19, 2024 4:00pm History of reconstruction of both breast s April 26, 2024 2:51pm Fat necrosis (segmental) of breast Febru [email or web address] 8:19am Seroma May 03, 2024 8:19am Fat necrosis (segmental) of breast Febru 2024 1:30pm Fat necrosis (segmental) of breast Febru 2024 3:22pm History of reconstruction of both breast s May 10, 2024 3:22pm Seroma May 10, 2024 3:22pm History of prophylactic mastectomy of nguyen th breasts May 10, 2024 3:22pm Status post implant removal from both br easts May 10, 2024 3:22pm History of reconstruction of both breast s June 06, 2024 8:45am 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 June 06, 2024 8:45am 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 June 20, 2024 8:11am Status post bilateral breast reconstruct ion July 07, 2024 2:59pm Reason for Referral Specialty Diagnoses / Procedures Referred By Harvey martinez Referred To Contact Cardiology Diagnoses Left leg swelling Procedures Vascular US Lower Extremity Venous Duplex Left Amanda Osborne MD [address] [facility] [place] [address] Referral ID Status Reason Start Date Expiration Date Visits Requested Visits Authorized [id number] Pending Review Perform Procedure 04/17/2023 04/16/2024 1 1 Additional Source Comments INFORMATION SOURCE (unrecogn ized section and content) DATE CREATED AUTHOR 09/04/2017 [facility] DATE CREATED AUTHOR AUTHOR'S ORGANIZ ATION 03/24/2018 [facility] DATE CREATED AUTHOR AUTHOR'S ORGANIZ ATION 12/15/2018 [facility] DATE CREATED AUTHOR AUTHOR'S ORGANIZ ATION 03/11/2022 [facility] DATE CREATED AUTHOR AUTHOR'S ORGANIZ ATION 03/15/2022 [facility] DATE CREATED AUTHOR AUTHOR'S ORGANIZ ATION 05/08/2022 [facility] DATE CREATED AUTHOR AUTHOR'S ORGANIZ ATION 11/05/2022 [facility] DATE CREATED AUTHOR AUTHOR'S ORGANIZ ATION 08/06/2023 [facility] DATE CREATED AUTHOR AUTHOR'S ORGANIZ ATION 03/24/2024 [facility] DATE CREATED AUTHOR AUTHOR'S ORGANIZ ATION 03/27/2024 [facility] DATE CREATED AUTHOR AUTHOR'S ORGANIZ ATION 08/16/[address] [facility] Reason for Visit (unrecogniz ed section and content) Reason Comments Sinus Congestion FOR A WEEK Reason Comments Repeat pap Patient is here for repeat pap. Patient has history of LGSIL. OSCAR in 2019. Reason Comments Abscess Left axillary absces s X 4 days Reason Comments Gynecologic Exam Patient is here for yearly exam and pap test. Patient has no concerns at this time. LMP: OSCAR. Reason Comments PREOP CONSULT Care Teams (unrecognized sec tion and content) It Service Continuity Supervisor Relationship Specialty Start Date End Date Amanda Osborne MD [address] [place] [id number] PCP - General Family Medicine 03/16/21 Team Status: Active Member Role Status Dates Dr. Amanda Osborne MD Primary Care Provider Act rodolfo Team Status: Inactive Member Role Status Dates Dr. Zenaida Barrett MD Attending Provider Active Team Status: Active Member Role Status Dates Dr. Zenaida Barrett MD Attending Provide r, Referring Provider, Other Provider Active Dr. Amanda Osborne MD Primary Care Provider Act rodolfo Team Status: Active Member Role Status Dates Dr. Zenaida Barrett MD Admit Provider, A ttending Provider, Referring Provider, Other Provider Active Dr. Amanda Osborne MD Primary Care Provider Act rodolfo Team Status: Inactive Member Role Status Dates Dr. Zenaida Barrett MD Admit Provider, A ttending Provider, Referring Provider Active Dr. Amanda Osborne MD Primary Care Provider Act rodolfo Team Status: Inactive Member Role Status Dates Dr. Amanda Osborne MD Primary Care Provider, Re ferring Provider Active Dr. Zenaida Barrett MD Attending Provider Active Team Status: Inactive Member Role Status Dates Dr. Amanda Osborne MD Primary Care Provider, Re ferring Provider Active Rachel Beard BUILDING MAINTENANCE CUSTODIAN, BUILDING MAINTENANCE CUSTODIAN-C Attending Provider Active Team Status: Active Member Role Status Dates Dr. Amanda Osborne MD Primary Care Provider Act rodolfo Rachel Elliot Beard BUILDING MAINTENANCE CUSTODIAN, BUILDING MAINTENANCE CUSTODIAN-C Attending Pro vider, Referring Provider, Other Provider Active Team Status: Active Member Role Status Dates Dr. Amanda Osborne MD Primary Care Provider Act rodolfo Dr. Dustin Shore MD Attending Provider Active Rachel Beard BUILDING MAINTENANCE CUSTODIAN, BUILDING MAINTENANCE CUSTODIAN-C Referring Provider Active Team Status: Inactive Member Role Status Dates Dr. Amanda Osborne MD Primary Care Provider Act rodolfo Dr. Zenadia Barrett MD Attending Provider, Referring P rovider Active Team Status: Active Member Role Status Dates Dr. Amanda Osborne MD Primary Care Provider Act rodolfo Rachelcesar Beard BUILDING MAINTENANCE CUSTODIAN, BUILDING MAINTENANCE CUSTODIAN-C Attending Provider, Referri ng Provider Active Team Status: Inactive Member Role Status Dates Dr. Amanda Osborne MD Primary Care Provider Act rodolfo Rachel E Kisha BUILDING MAINTENANCE CUSTODIAN, BUILDING MAINTENANCE CUSTODIAN-C Attending Provider, Referri ng Provider Active Team Status: Active Member Role Status Dates Dr. Amanda Osborne MD Primary Care Provider Act rodolfo Rachel Elliot Beard BUILDING MAINTENANCE CUSTODIAN, BUILDING MAINTENANCE CUSTODIAN-C Referring Provider, Other P rovider Active Dr. Robby Castellon MD Attending Provider Active Team Status: Active Member Role Status Dates Dr. Amanda Osborne MD Primary Care Provider Act rodolfo Rachelrachel Beard BUILDING MAINTENANCE CUSTODIAN, BUILDING MAINTENANCE CUSTODIAN-C Referring Provider, Other P rovider Active Sarah Beth Maldonado BUILDING MAINTENANCE CUSTODIAN, BUILDING MAINTENANCE CUSTODIAN-C Attending Provider Active Team Status: Active Member Role Status Dates Dr. Amanda Osborne MD Primary Care Provider Act rodolfo Dr. Zenaida Barrett MD Attending Provide r, Referring Provider, Other Provider Active Team Status: Active Member Role Status Dates Dr. Amanda Osborne MD Primary Care Provider Act rodolfo Rachel Elliot Beard BUILDING MAINTENANCE CUSTODIAN, BUILDING MAINTENANCE CUSTODIAN-C Referring Provider, Other P rovider Active Soco Tipton BUILDING MAINTENANCE CUSTODIAN, BUILDING MAINTENANCE CUSTODIAN-C Attending Provider Active Team Status: Inactive Member Role Status Dates Dr. Amanda Osborne MD Primary Care Provider Act rodolfo Dr. Zenaida Barrett MD Admit Provider, A ttending Provider, Referring Provider Active Team Status: Active Member Role Status Dates Dr. Amanda Osborne MD Primary Care Provider Act rodolfo Dr. Zenaida Barrett MD Admit Provider, A ttending Provider, Referring Provider, Other Provider Active Team Status: Inactive Member Role Status Dates Dr. Amanda Osborne MD Primary Care Provider Act rodolfo Rachel Beard BUILDING MAINTENANCE CUSTODIAN, BUILDING MAINTENANCE CUSTODIAN-C Attending Provider Active Team Status: Active Member Role Status Dates Dr. Amanda Osborne MD Primary Care Provider Act rodolfo Dr. Zenaida Barrett MD Admit Provider, R eferring Provider, Other Provider Active Rachel Beard BUILDING MAINTENANCE CUSTODIAN, BUILDING MAINTENANCE CUSTODIAN-C Attending Provider Active It Service Continuity Supervisor Relationship Specialty Start Date End Date Amanda Osborne MD [address] [place] [address] PCP - General 12/14/18 Amanda Osborne MD [facility] [place] [address] PCP - [facility] PCP 05/14/22 It Service Continuity Supervisor Relationship Specialty Start Date End Date Amanda Osborne MD [address] [place] [address] PCP - General 12/14/18 Amanda Osborne MD [address] [place] [address] PCP - [facility] PCP 05/14/22 It Service Continuity Supervisor Relationship Specialty Start Date End Date mAanda Osborne MD [facility] [place] [address] PCP - General 12/14/18 Amanda Osborne MD [address] [place] [address] PCP - [facility] PCP 05/14/22 It Service Continuity Supervisor Relationship Specialty Start Date End Date Amanda Osborne MD [address] [id number] PCP - General 12/14/18 Amanda Osborne MD [address] [address] PCP - [facility] PCP 05/14/22 It Service Continuity Supervisor Relationship Specialty Start Date End Date Amanda Osborne MD [address] [address] PCP - General 12/14/18 Amanda Osborne MD [address] [address] PCP - [facility] PCP 05/14/22 It Service Continuity Supervisor Relationship Specialty Start Date End Date Amanda Osborne MD [address] [address] PCP - General 12/14/18 Amanda Osborne MD [address] [address] PCP - [facility] PCP 05/14/22 Team Status: Inactive Member Role Status Dates Dr. Amanda Osborne MD Primary Care Provider Act rodolfo Start: March 03, 2024 End: March 03, 2024 Dr. Amanda Osborne MD Referring Provider Active Start: March 03, 2024 End: March 03, 2024 Dr. Marlon Allen MD Attending Provider Active Start: March 03, 2024 End: March 03, 2024 Team Status: Inactive Member Role Status Dates Dr. Amanda Osborne MD Primary Care Provider Act rodolfo Start: March 30, 2024 End: March 30, 2024 Dr. Amanda Osborne MD Referring Provider Active Start: March 30, 2024 End: March 30, 2024 Dr. Marlon Allen MD Attending Provider Active Start: March 30, 2024 End: March 30, 2024 Team Status: Active Member Role Status Dates Dr. Amanda Osborne MD Primary Care Provider Act rodolfo Start: March 31, 2024 End: March 31, 2024 Dr. Sarah Leyva MD Attending Provider Activ e Start: March 31, 2024 End: March 31, 2024 Dr. Marlon Allen MD Referring Provider Active Start: March 31, 2024 End: March 31, 2024 Team Status: Active Member Role Status Dates Dr. Amanda Osborne MD Primary Care Provider Act rodolfo Start: March 31, 2024 Dr. Marlon Allen MD Admit Provider Active Star t: March 31, 2024 Dr. Marlon Allen MD Attending Provider Active Start: March 31, 2024 Dr. Marlon Allen MD Referring Provider Active Start: March 31, 2024 Dr. Marlon Allen MD Other Provider Active Star t: March 31, 2024 Team Status: Inactive Member Role Status Dates Dr. Amanda Osborne MD Primary Care Provider Act rodolfo Start: March 31, 2024 End: April 03, 2024 Dr. Marlon Allen MD Admit Provider Active Star t: March 31, 2024 End: April 03, 2024 Dr. Marlon Allen MD Attending Provider Active Start: March 31, 2024 End: April 03, 2024 Dr. Marlon Allen MD Referring Provider Active Start: March 31, 2024 End: April 03, 2024 Team Status: Active Member Role Status Dates Dr. Amanda Osborne MD Primary Care Provider Act rodolfo Start: April 01, 2024 Dr. Marlon Allen MD Admit Provider Active Star t: April 01, 2024 Dr. Marlon Allen MD Attending Provider Active Start: April 01, 2024 Dr. Marlon Allen MD Referring Provider Active Start: April 01, 2024 Dr. Marlon Allen MD Other Provider Active Star t: April 01, 2024 Team Status: Active Member Role Status Dates Dr. Amanda Osborne MD Primary Care Provider Act rodolfo Start: April 02, 2024 Dr. Marlon Allen MD Admit Provider Active Star t: April 02, 2024 Dr. Marlon Allen MD Attending Provider Active Start: April 02, 2024 Dr. Marlon Allen MD Referring Provider Active Start: April 02, 2024 Dr. Marlon Allen MD Other Provider Active Star t: April 02, 2024 Team Status: Active Member Role Status Dates Dr. Amanda Osborne MD Primary Care Provider Act rodolfo Start: April 03, 2024 Dr. Marlon Allen MD Admit Provider Active Star t: April 03, 2024 Dr. Marlon Allen MD Attending Provider Active Start: April 03, 2024 Dr. Marlon Allen MD Referring Provider Active Start: April 03, 2024 Dr. Marlon Allen MD Other Provider Active Star t: April 03, 2024 Team Status: Inactive Member Role Status Dates Dr. Amanda Osborne MD Primary Care Provider Act rodolfo Start: April 07, 2024 End: April 07, 2024 Dr. Amanda Osborne MD Referring Provider Active Start: April 07, 2024 End: April 07, 2024 Dr. Marlon Allen MD Attending Provider Active Start: April 07, 2024 End: April 07, 2024 Team Status: Inactive Member Role Status Dates Dr. Amanda Osborne MD Primary Care Provider Act rodolfo Start: April 11, 2024 End: April 11, 2024 Dr. Amanda Osborne MD Referring Provider Active Start: April 11, 2024 End: April 11, 2024 Rachel Beard BUILDING MAINTENANCE CUSTODIAN, BUILDING MAINTENANCE CUSTODIAN-C Attending Provider Active Start: April 11, 2024 End: April 11, 2024 Team Status: Inactive Member Role Status Dates Dr. Amanda Osborne MD Primary Care Provider Act rodolfo Start: April 19, 2024 End: April 19, 2024 Dr. Amanda Osborne MD Referring Provider Active Start: April 19, 2024 End: April 19, 2024 Rachel Beard BUILDING MAINTENANCE CUSTODIAN, BUILDING MAINTENANCE CUSTODIAN-C Attending Provider Active Start: April 19, 2024 End: April 19, 2024 Team Status: Inactive Member Role Status Dates Dr. Amanda Osborne MD Primary Care Provider Act rodolfo Start: April 26, 2024 End: April 26, 2024 Dr. Amanda Osborne MD Referring Provider Active Start: April 26, 2024 End: April 26, 2024 Rachel Beard BUILDING MAINTENANCE CUSTODIAN, BUILDING MAINTENANCE CUSTODIAN-C Attending Provider Active Start: April 26, 2024 End: April 26, 2024 Team Status: Inactive Member Role Status Dates Dr. Amanda Osborne MD Primary Care Provider Act rodolfo Start: May 03, 2024 End: May 03, 2024 Dr. Amanda Osborne MD Referring Provider Active Start: May 03, 2024 End: May 03, 2024 Dr. Marlon Allen MD Attending Provider Active Start: May 03, 2024 End: May 03, 2024 Team Status: Inactive Member Role Status Dates Dr. Amanda Osborne MD Primary Care Provider Act rodolfo Start: May 06, 2024 End: May 06, 2024 Dr. Amanda Osborne MD Referring Provider Active Start: May 06, 2024 End: May 06, 2024 Dr. Marlon Allen MD Attending Provider Active Start: May 06, 2024 End: May 06, 2024 Team Status: Inactive Member Role Status Dates Dr. Amanda Osborne MD Primary Care Provider Act rodolfo Start: May 10, 2024 End: May 10, 2024 Dr. Amanda Osborne MD Referring Provider Active Start: May 10, 2024 End: May 10, 2024 Rachel Beard BUILDING MAINTENANCE CUSTODIAN, BUILDING MAINTENANCE CUSTODIAN-C Attending Provider Active Start: May 10, 2024 End: May 10, 2024 Team Status: Active Member Role Status Dates Dr. Amanda Osborne MD Primary Care Provider Act rodolfo Start: May 16, 2024 Dr. Marlon Allen MD Attending Provider Active Start: May 16, 2024 Dr. Marlon Allen MD Other Provider Active Star t: May 16, 2024 Rachelcesar Beard BUILDING MAINTENANCE CUSTODIAN, BUILDING MAINTENANCE CUSTODIAN-C Referring Provider Active Start: May 16, 2024 Team Status: Active Member Role Status Dates Dr. Amanda Osborne MD Primary Care Provider Act rodolfo Start: May 23, 2024 Dr. Marlon Allen MD Attending Provider Active Start: May 23, 2024 Dr. Marlon Allen MD Other Provider Active Star t: May 23, 2024 Rachelcesar Beard BUILDING MAINTENANCE CUSTODIAN, BUILDING MAINTENANCE CUSTODIAN-C Referring Provider Active Start: May 23, 2024 Team Status: Active Member Role Status Dates Dr. Amanda Osborne MD Primary Care Provider Act rodolfo Start: June 06, 2024 Dr. Marlon Allen MD Attending Provider Active Start: June 06, 2024 Dr. Marlon Allen MD Other Provider Active Star t: June 06, 2024 Rachelcesar Beard BUILDING MAINTENANCE CUSTODIAN, BUILDING MAINTENANCE CUSTODIAN-C Referring Provider Active Start: June 06, 2024 Team Status: Inactive Member Role Status Dates Dr. Amanda Osborne MD Primary Care Provider Act rodolfo Start: June 06, 2024 End: June 13, 2024 Dr. Marlon Allen MD Attending Provider Active Start: June 06, 2024 End: June 13, 2024 Rachel Beard BUILDING MAINTENANCE CUSTODIAN, BUILDING MAINTENANCE CUSTODIAN-C Referring Provider Active Start: June 06, 2024 End: June 13, 2024 Team Status: Inactive Member Role Status Dates Dr. Amanda Osborne MD Primary Care Provider Act rodolfo Start: June 20, 2024 End: July 13, 2024 Dr. Marlon Allen MD Attending Provider Active Start: June 20, 2024 End: July 13, 2024 Rachel Beard BUILDING MAINTENANCE CUSTODIAN, BUILDING MAINTENANCE CUSTODIAN-C Referring Provider Active Start: June 20, 2024 End: July 13, 2024 Team Status: Active Member Role Status Dates Dr. Amanda Osborne MD Primary Care Provider Act rodolfo Start: June 20, 2024 Dr. Marlon Allen MD Attending Provider Active Start: June 20, 2024 Dr. Marlon Allen MD Other Provider Active Star t: June 20, 2024 Rachel Beard BUILDING MAINTENANCE CUSTODIAN, BUILDING MAINTENANCE CUSTODIAN-C Referring Provider Active Start: June 20, 2024 Team Status: Inactive Member Role Status Dates Dr. Amanda Osborne MD Primary Care Provider Act rodolfo Start: July 07, 2024 End: July 07, 2024 Dr. Amanda Osborne MD Referring Provider Active Start: July 07, 2024 End: July 07, 2024 Dr. Marlon lAlen MD Attending Provider Active Start: July 07, 2024 End: July 07, 2024 Team Status: Inactive Member Role Status Dates Dr. Amanda Osborne MD Primary Care Provider Act rodolfo Start: July 28, 2024 End: July 28, 2024 Dr. Amanda Osborne MD Referring Provider Active Start: July 28, 2024 End: July 28, 2024 Dr. Marlon Allen MD Attending Provider Active Start: July 28, 2024 End: July 28, 2024 <item><item> Privacy Markings (unrecogniz ed section and [...] BE BASED ON THE PRIMARY CLINICAL RECORDS. [facility]. provides no warranty or guarantee of the accuracy or completeness of information in this document.
[2024-08-17] MEDS: Lactated Ringers 1,000 ML 15 ML IV ×2 (06:29→12:37)
--- NOTE | 2024-08-17 06:35 | HP.PCM.SX_ITS ---
HPI - General HPI Narrative SANG MAIN is a 48 F who presents for breast reconstruction revision (revision of MAKENNA flap from Mar 2024). Current Encounter (DATE OF SURGERY H&P UPDATE): I saw and examined the patient this morning in pre-operative holding. We discussed risks and benefits of today's surgery and they would like to proceed. NO CHANGE in health history since last seen and evaluated. Ready to proceed with surgery. Of note, patient declining IV in left upper extremity after blown IV in the dorsal left hand (and having persistent intermittent CT symptoms). Bracing has helped, but CT persisting. 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 Genetic susceptibility to malignant neoplasm of breast Cancer phobia Monoallelic mutation of DEISY gene Family history of breast cancer Former smoker Ptosis of both breasts Pneumonia Frequent headaches Allergies Home Medications ?Medication ?Instructions ?Recorded ?Last Taken ?Type ibuprofen 800 mg tablet 800 mg PO Q12H PRN PRN Migra ine 03/28/22 03/24/24 History Headache omeprazole 40 mg capsule,delayed 40 mg PO DAILY gerd 0 03/28/22 08/17/24 History release sumatriptan succinate 100 mg tablet 100 mg PO PRN PRN MIGRAINE 03/28/22 Unknown History valacyclovir 500 mg tablet 500 mg PO DAILY PRN cold so res 03/28/22 03/30/24 06:30 History ondansetron 4 mg disintegrating 4 mg PO Q8H PRN nausea and 04/03/24 Unknown Rx tablet vomiting #10 tabs Allergy/AdvReac Type Severity Reaction Status Date / Time Penicillins (PCN) Allergy Hives, RASH Verified 08/17/24 06:28 Family History Grandmother Breast cancer Aunt Breast cancer Father Diabetes Surgical History History of breast implant removal Hx of breast reconstruction History of prophylactic mastectomy of both breasts Status post implant removal from both breasts History of reconstruction of both breasts Hx of bilateral mastectomy History of placement of ear tubes History of bilateral breast implants Status post bilateral breast reconstruction Status post bilateral mastectomy History of bilateral oophorectomy History of bladder surgery History of hysterectomy Social History Smoking Status: Former smoker alcohol intake: current substance use type: does not use additional social history: Does Not Take Aspirin Does Take Ibuprofen As Needed Vital Signs Vital Signs Vital Signs: 08/17/24 06:29 08/17/24 06:29 Temperature 98.2 F Temperature Source Temporal Pulse Rate 75 Respiratory Rate 17 Respiratory Pattern Normal Blood Pressure 124/65 H Blood Pressure Mean 84 Blood Pressure Source Monitor Blood Pressure Position Semi-Fowlers Blood Pressure Location Right Arm Pulse Ox 95 Oxygen Delivery Method Room Air Weight Weight: 178 lb 9.191 oz Body Mass Index (BMI) 29.7 Physical Exam Narrative Female sap solution manager consultant present for my exam Chest: Incisions and right upper pole breast wound have healed. Skin paddle is warm and well-perfused. Abdomen: Hypertrophic periumbilical scar and hypertrophic central abdominal scar, but all surgical sites have healed. Excess subcutaneous adiposity for fat grafting. No palpable hernias/defects or bulges at this time on my exam today (palpated abdominal wall thoroughly with patient in the supine position). Extremity Extremity Narrative: Left Hand Positive Tinel Positive Durkens Negative Phalen 5+ ABP 5/5 staff cytotechnologist strength Assessment & Plan Assessment/Plan (1) History of reconstruction of both breasts: PLAN: INTERVAL H&P PLAN, DATE OF SURGERY: We will proceed with surgery today. Patient marked in preoperative holding today with female sap solution manager consultant present. We discussed risks of contour abnormalities from the liposuction fat/grafting, as well as risks of fat necrosis. Plan to remove skin paddle and readjust nipple to IMF, and revise scars on breasts. We will also plan for fat grafting, with abdominal donor site and revision of the abdominal scars. I talked to the patient thoroughly about the markings today and today's surgical plans, and she was in agreement. I talked to the patient extensively about the risks of surgery, including bleeding, infection, damage to surrounding structures, poor scaring, surgical si te dehiscence and wound formation, need for wound care, need for repeat operations, failure to obtain the desired result, DVT/PE, and the risks of anesthesia including , including stroke (from low blood pressure/ischemia or clot). The benefits and alternatives of this surgery were also discussed. All of their questions were answered, and they agreed to proceed with surgery.
--- NOTE | 2024-08-17 06:39 | PCM.PRE.AN2 ---
ASA Classification* ASA Classification ASA Classification: 2 (GERD, migraines, hx of complications with previous breast surgeries. Avoid ANY IVs in her hands -- she states she has significant numbness and tingling in her left hand from previous surgery due to IV placement. ) Assessment & Plan Anesthesia* Anesthesia Assessment Anesthesia Assessment: Discussed sedation and/or anesthesia options, risks, benefits, and alternatives with patient/parents/legal guardian/POA. Questions invited. The patient/parents/legal guardian/POA seems to understand and agrees to proceed with anesthesia plan. Reviewed the physical assessment, medical history, allergy history and patient home medications list prior to surgery/procedure/anesthetic and documented any changes. Performed airway and anesthesia risk assessments. Anesthesia Type Anesthesia Type: General History Source History Obtained from:: Patient and Chart Anesthesia Focused Assessment* Temperature: 98.2 F Pulse Rate: 75 Blood Pressure: 124/65 Respiratory Rate: 17 Pulse Ox: 95 Oxygen Delivery Method: Room Air Airway Assessment Mouth opens: >3 cm Mallampati Score: II Teeth Condition: Intact and Missing (missing several teeth on bottom, 1 on top) Neck Range of motion (ROM): Full ROM Focused Labs Anesthesia Preop lab: CBC WBC 13.0 K/mm3 (4.4-11.0) H 04/01/24 04:20 04/01/24 RBC 3.46 M/mm3 (4.2-5.4) L 04/01/24 04:20 04/01/24 Hgb 11.2 g/dL (12.0-15.0) L 04/01/24 04:20 04/01/24 Hct 33.8 % (37-47) L 04/01/24 04:20 04/01/24 Plt Count 188 K/mm3 (150-450) 04/01/24 04:20 04/01/24 CHEMISTRY Potassium 4.2 mmol/L (3.5-5.1) 04/01/24 04:20 04/01/24 Sodium 138 mmol/L (136-145) 04/01/24 04:20 04/01/24 Magnesium 2.2 mg/dL (1.6-2.6) 03/31/24 05:55 03/31/24 BUN 9 mg/dL (7-18) 04/01/24 04:20 04/01/24 Creatinine 0.74 mg/dL (0.55-1.02) 04/01/24 04:20 04/01/24 Glucose 130 mg/dL (74-106) H 04/01/24 04:20 04/01/24 POC Glucose 109 mg/dL (74-106) H 03/31/24 06:09 03/31/24 COAG Pre-Assessment Diagnosis/Proposed Procedure Planned Operative Procedure(s): (B) Revision breast reconstruction including fat grafting, revision abdominal scar Anesthesia History Anesthesia History - timber selector: Anesthesia History - timber selector Hx Hospitalization No 08/03/24 15:06 Any Problems With Anesthesia No 08/03/24 15:06 Cholinesterase deficiency No 08/03/24 15:06 You/Your Family Experience No 08/03/24 15:06 fever (hyperthermia) with Relationship Recent Exposure to Contagious No 08/17/24 06:29 Disease Does patient have nerve No 08/03/24 15:06 stimulator Patient instructed to have device shut off --Does patient have Pacemaker No 08/17/24 06:29 or ICD? When Was Last Pacemaker Check QUESTION #4 FULL TEXT: You/Your Family Experience fever (hyperthermia) with Anesthesia Last Oral Intake Last Oral intake: Last Oral Intake NPO since 05:00 08/17/24 06:29 Meds taken in AM with sips of No 08/17/24 06:29 water? Meds patient instructed to take am of surgery PONV PONV - timber selector: PONV - timber selector Female Yes 08/03/24 15:06 HX of Motion Sickness Yes 08/03/24 15:06 HX of N/V After Surgery No 08/03/24 15:06 Non-Smoker Yes 08/03/24 15:06 Duration of Surgery greater Yes 08/03/24 15:06 than 60 minutes Number of Risk Factors 4 08/03/24 15:06 PONV Score Severe Risk 08/03/24 15:06 Height & Weight Height & Weight: Anesthesia: Height & Weight Height 5 ft 5 in 08/17/24 06:29 Weight: 81 kg 08/17/24 06:29 Body Mass Index (BMI) 29.7 08/17/24 06:29 Respiratory Assessment Respiratory Assessment - timber selector: Respiratory Tract Infection Hx - timber selector Hx Respiratory Tract Infection No 08/03/24 15:06 STOP Sleep Apnea STOP Sleep Apnea - timber selector: STOP Sleep Apnea - timber selector Hx Hypertension No 08/03/24 15:06 Hx Sleep Apnea No 08/03/24 15:06 CPAP BIPAP Do you snore loudly (louder No 08/03/24 15:06 than talking or can be heard Do you often feel tired/ No 08/03/24 15:06 fatigued/ sleepy during daytime? Has anyone observed you stop No 08/03/24 15:06 breathing during sleep? STOP Results Negative 08/03/24 15:06 QUESTION #5 FULL TEXT : Do you snore loudly (louder than talking or can be heard through closed doors)? 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 Specify any problems Hx of Preganancy in last 3 No 08/03/24 15:06 Months Nurse Filling Out Transfusion VCHRISTIN 08/03/24 15:06 & Questions: Date: 08/03/24 08/03/24 15:06 Time: 15:13 08/03/24 15:06 Patient unable to answer at this time (ie. confused, unrespo /Reproduction History /Reproductive History - timber selector: /Reproductive Hx- timber selector Hx Now No 08/03/24 15:06 Gestational Age (in weeks): EDC: Hx Hx Para Hx Section SAB No 08/03/24 15:06 Active Medications Active Medications: Current Medications Generic Name Dose Route Start Last Admin Trade Name Freq PRN Reason Stop Dose Admin Clindamycin Phosphate 900 mg in 50 mls @ 75 mls/hr 08/17/24 07:30 Cleocin IV 08/17/24 08:09 INTRAOP ONE Lactated Ringer's 1,000 mls @ 15 mls/hr 08/17/24 06:15 08/17/24 06:29 IV 15 mls/hr .Q48H DINORAH Administration PFSH Medical History Deformity of reconstructed breast GERD (gastroesophageal reflux disease) Resistance to other single specified antibiotic History of bilateral removal of breast implants Infection of breast implant Exposed breast implant Failed skin graft Failure of flap graft Methicillin resistant Staphylococcus epidermidis infection Nonhealing surgical wound PONV (postoperative nausea and vomiting) Cancer phobia Wears contact lenses Wears glasses Alcohol use Migraine headache Prophylactic ovary removal Prophylactic breast removal 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 Genetic susceptibility to malignant neoplasm of breast Cancer phobia Monoallelic mutation of DEISY gene Family history of breast cancer Former smoker Ptosis of both breasts Pneumonia Frequent headaches Allergies Home Medications ?Medication ?Instructions ?Recorded ?Last Taken ?Type ibuprofen 800 mg tablet 800 mg PO Q12H PRN PRN Migraine 03/28/22 03/24/24 History Headache omeprazole 40 mg capsule,delayed 40 mg PO DAILY gerd 03/28/22 08/17/24 History release sumatriptan succinate 100 mg tablet 100 mg PO PRN PRN MIGRAINE 03/28/22 Unknown History valacyclovir 500 mg tablet 500 mg PO DAILY PRN cold sores 03/28/22 03/30/24 06:30 History ondansetron 4 mg disintegrating 4 mg PO Q8H PRN nausea and 04/03/24 Unknown Rx tablet vomiting #10 tabs Allergy/AdvReac Type Severity Reaction Status Date / Time Penicillins (PCN) Allergy Hives, RASH Verified 08/17/24 06:28 Family History Grandmother Breast cancer Aunt Breast cancer Father Diabetes Surgical History History of breast implant removal Hx of breast reconstruction History of prophylactic mastectomy of both breasts Status post implant removal from both breasts History of reconstruction of both breasts Hx of bilateral mastectomy History of placement of ear tubes History of bilateral breast implants Status post bilateral breast reconstruction Status post bilateral mastectomy History of bilateral oophorectomy History of bladder surgery History of hysterectomy Social History Smoking Status: Former smoker alcohol intake: current substance use type: does not use additional social history: Does Not Take Aspirin Does Take Ibuprofen As Needed Review of Systems (Anesthesia) ROS Narrative System reviewed and no additional complaints, except as documented. Physical Exam Const alert, oriented x3 and average body habitus Resp normal respiratory effort, normal air movement and clear to auscultation bilaterally Cardio regular rate, regular rhythm, no murmurs and diaphoretic
[2024-08-17] MEDS: Clindamycin 900 MG/50 ML BAG 75 MG IV (07:40)
[2024-08-17] MEDS: Triamcinolone Acetonide 40 MG/ML Vial (07:59)
[2024-08-17] MEDS: TAS 0.05% 1000 mls w/ LR OPERA.SITE ×2 (08:35→10:20)
--- NOTE | 2024-08-17 11:20 | PCM.POST.ANE ---
Anesthesia: Postop Eval I Current Vital Signs Temperature: 97.5 F Pulse Rate: 76 Blood Pressure: 103/51 Respiratory Rate: 16 Pulse Ox: 95 Oxygen Delivery Method: Nasal Cannula Oxygen Flow Rate (L/min): 3 Assessment Airway patent: Yes Spontaneous unlabored respirations: Yes Mental status: Awake and Calm nausea: No Vomiting: No Anesthesia Complication: No Fluid Hydration Crystalloid volume administer (ml): 1,700 Total IV fluid infused: 1,700 Progress Note Anesthesia document: Postop Eval 1 completed: Yes
--- NOTE | 2024-08-17 11:51 | POSTOPAN2_ITS ---
Anesthesia Postop Eval I Sum Postop Eval Completion status Anesthesia document: Postop Eval 1 completed: Yes Anesthesia Postop Eval I Summary Anesthesia Postop Eval I Summary: Anesthesia Postop Eval I: Assessment Summary Airway patent Yes 08/17/24 11:22 LINER REROLL [email or web address] Spontaneous unlabored Yes 08/17/24 11:22 LINER REROLL [email or web address].[email or web address] respirations Mental status Awake,Calm 08/17/24 11:22 LINER REROLL [email or web address] nausea No 08/17/24 11:22 LINER REROLL TENDER.GDOTT Vomiting No 08/17/24 11:22 LINER REROLL TENDER.GDOTT Anesthesia Postop Eval I: Fluid Summary Crystalloid volume administer 1,700 08/17/24 11:22 LINER REROLL [email or web address].GDOTT (ml) Colloids volume administered ( ml) Blood Product volume administered (ml) Total IV fluid infused 1,700 08/17/24 11:22 LINER REROLL TENDER.GDOTT Anesthesia Postop Eval I: Summary Notes Anesthesia Complication No 08/17/24 11:22 LINER REROLL [email or web address] Anesthesia Complication Comment: Post-operative progress note Anesthesia: Postop Eval II Evaluation Mental status: Asleep Pain Level: 3 nausea: No Vomiting: No
--- NOTE | 2024-08-17 11:51 | PCM.POSTANE2 ---
Anesthesia Postop Eval I Sum Postop Eval Completion status Anesthesia document: Postop Eval 1 completed: Yes Anesthesia Postop Eval I Summary Anesthesia Postop Eval I Summary: Anesthesia Postop Eval I: Assessment Summary Airway patent Yes 08/17/24 11:22 BUNGY [email or web address] [email or web address].[email or web address] Spontaneous unlabored Yes 08/17/24 11:22 BUNGY JUMP MASTER.[email or web address] respirations Mental status Awake,Calm 08/17/24 11:22 BUNGY JUMP MASTER.GDOTT nausea No 08/17/24 11:22 BUNGY JUMP MASTER.GDOTT Vomiting No 08/17/24 11:22 BUNGY JUMP MASTER.GDOTT Anesthesia Postop Eval I: Fluid Summary Crystalloid volume administer 1,700 08/17/24 11:22 BUNGY JUMP [email or web address].GDOTT (ml) Colloids volume administered ( ml) Blood Product volume administered (ml) Total IV fluid infused 1,700 08/17/24 11:22 BUNGY JUMP MASTER.GDOTT Anesthesia Postop Eval I: Summary Notes Anesthesia Complication No 08/17/24 11:22 BUNGY JUMP MASTER.GDOTT Anesthesia Complication Comment: Post-operative progress note Anesthesia: Postop Eval II Evaluation Mental status: Asleep Pain Level: 3 nausea: No Vomiting: No
[2024-08-17] MEDS: oxyCODONE 5 MG Tablet PO (13:52)
[2024-08-17] MEDS: Acetaminophen 500 MG Tablet 1000 MG PO (13:52)
--- NOTE | 2024-08-17 15:58 | OP.PCM_ITS ---
Operative Report (Standard) Operative Information Date of Procedure: 08/10/24 Pre-Operative Diagnosis: S/p breast reconstruction with bilateral MAKENNA flaps Post-Operative Diagnosis: Same Surgery/Procedure Performed: 1) Bilateral breast reconstruction revision, including removal of skin paddles (CPT: 40163 x 2 with 50 modifier) 2) Fat grafting to the left breast, 80 cc, fat grafting to the right breast, 80 cc (CPT: 49282 and 30460 x 3 units) 3) Excision of hypertrophic abdominal scar, 15 x 1 cm (71290) 4) Intermediate closure of abdominal scar excision site, 15 cm (CPT: 12567) 5) Kenalog injection, 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 Printed Circuit Boards Inspector: Mirza Lanza Tasks completed by escrow assistant: Closing and Retracting Type of Anesthesia: General/Supplemental (1500 cc of tumescent solution (tumescent solution was 1 mg of epinephrine and 50 cc of 1% lidocaine and 1 L of lactated Ringer's solution) ) RN Documented Start/Stop Times: Operation Date: 08/17/24 07:30 Case Time Into Pre-Op 08/17/24 06:06 Out of Pre-Op 08/17/24 07:36 Anesthesia Start 08/17/24 07:37 Into Room 08/17/24 07:37 Procedure Start 08/17/24 07:59 Procedure End 08/17/24 11:03 Anesthesia End 08/17/24 11:15 Out of Room 08/17/24 11:15 Into Recovery 08/17/24 11:18 Into Phase II Recovery 08/17/24 13:09 Out of Recovery 08/17/24 13:09 Out of Phase II 08/17/24 15:15 Procedure Start Time: 07:59 Procedure Stop Time: 11:03 Select all DRAINS/GRAFTS/IMPLANTS that apply: None Estimated Blood Loss: 20 cc Specimen collected: No Description of surgery: Indications: Irene Lopez is a delightful 48-year-old female who underwent bilateral MAKENNA flap reconstruction in March 2024. This was complicated by periumbilical and central abdominal delayed wound healing as well as a right upper pole breast deformity with delayed wound healing. She has since healed and presents today for reconstruction revision. I talked her about the risks, benefits, and alternatives to reconstruction revision. I marked her in preoperative holding and we discussed removal of the MAKENNA flap skin paddles, as well as the various liposuction donor sites for today's fat grafting. I also talked to her about removal of the right upper pole scar from the right upper pole breast wound. Of note, patient had previous complication of nipple necrosis and partial nipple loss during her attempted implant-based reconstruction, and she does not desire any nipple reconstruction at this time and would rather obtain a tattoo. Procedure details: Patient was correctly identified in preoperative holding and taken back to the operating room where she was administered general anesthesia. She was prepped and draped in sterile fashion and all proper timeouts were performed. Care was taken to pad all bony prominences and protect all pressure points and peripheral nerves. A safety strap was added so that she could sit up during surgery for evaluation of the breast. A 15 blade scalpel was used to excise the abdominal skin paddles bilaterally from the lower pole of the breasts, with Bovie electrocautery used to excise the skin paddles full-thickness. In the plane of the MAKENNA flap (keeping the mastectomy flaps up), dissection was carried out several centimeters superiorly on the bilateral breasts so as to undermine the mastectomy flap and advance it into position near the IMF incision. Hemostasis was obtained with Bovie electrocautery and the wounds were irrigated with copious amounts of normal saline. The patient was then sat up and we examined the breasts , and the decision was made to close the mastectomy flaps over the resected skin paddle region without any further manipulation of the breast lower pole incision at this time so as to prevent undue tension. The mastectomy flaps were then stapled into place, and areas of fat deficiency were then further identified on the breasts. Patient was sat back down and the breast was were closed with 3-0 Monocryl deep dermal sutures followed by 3-0 Monocryl running subcuticular sutures. The upper pole scar on the right side was excised full-thickness with a 15 blade scalpel and sutured with 3-0 Monocryl deep dermals followed by running subcuticular 3-0 Monocryl. Attention was then turned to the abdominal scar. 15 blade scalpel was used to excise the hypertrophic central abdominal scar full-thickness to the underlying subcutaneous tissue for a total excision of 15 x 1 cm. Hemostasis was obtained with Bovie electrocautery, and the wounds were irrigated with copious amounts normal saline. The 15 cm wound was then closed with an intermediate closure using 3-0 Monocryl deep dermal sutures followed by running subcuticular 3-0 Monocryl suture. Attention was then turned to harvest of the abdominal fat. Via stab incisions of the lateral abdomen, as well as the medial thigh, and through the lateral aspect of the breast bilateral IMF breast incisions, tumescent solution was injected into the abdomen, flanks, medial thighs, and lateral chest for a total injection of 1.5 L. It was given 20 minutes to take effect. Basket cannula was then used to separate the fat in these locations, followed by a 4 mm Susan cannula used to aspirate the fat in these locations. Fat evening was then performed with the basket cannula to smooth out/prevent any contour irregularities. From the central abdomen and bilateral flanks, 800 cc of Lipo aspirate was obtained (400 from each side). From the medial thighs, 100 cc of Lipo aspirate was obtained bilaterally. From the lateral chest wall along the bra line, 50 cc bilaterally was obtained. A total of 1.1 L of Lipo aspirate was removed. 600 cc of Lipo aspirate was discarded, the other 500 cc of Lipo aspirate was purified on the back table using the Puregraft system, which involves serial washing and purifying of the fat. Using blunt tipped cannulas, the breasts were then injected with the fat through a small stab incision medially and laterally on both breasts. Care was taken not to inject fat within the planes that were already dissected during today's operation. The upper poles of the breast bilaterally where the focus of the fat grafting, except for the right breast where 40 cc of the fat injected was in a flattened area on the right lateral inferior pole. A total of 80 cc of fat was injected into the right breast, and 80 cc of fat was injected into the left breast. Attention was then turned to closure of the liposuction sites which was perf ormed with interrupted 5-0 Prolene suture and Steri-Strips. A total of 1 cc of Kenalog 10 was then injected around the umbilicus and the hypertrophic umbilical scar. Prineo tape was placed over the incisions on the breast and abdomen. Patient tolerated the procedure well. He was awakened and taken to the PACU in stable condition. Surgical Findings: Healthy underlying MAKENNA flaps, no fat necrosis or fluid collections Complications Complications: No
== END 2024-08-17 15:15 | disposition home or self-care (01) ==
LOC: SDC 06:00 → AC 06:01
PROVIDERS: PCP Family Medicine; Referring Provider Surgery Plastic and Reconstructive Surgery; Visit Provider Surgery Plastic and Reconstructive Surgery
PROC: 0H0U0ZZ Alteration of Left Breast, Open Approach (ICD-10-PCS; CPT 19318; principal; 2024-08-17 07:15)
DX: N65.1 Disproportion of reconstructed breast (principal); N65.0 Deformity of reconstructed breast; L91.0 Hypertrophic scar; K21.9 Gastro-esophageal reflux disease without esophagitis; Z87.891 Personal history of nicotine dependence
CPT/HCPCS: 19380; 15771; 15772 ×3; 11406; 12035; 00402; J2405

== ENCOUNTER → 2024-11-21 | Outpatient (CLI) | payer BC, SELFPAY ==
--- NOTE | 2024-11-21 06:38 | CT_ITS ---
PROCEDURE: ABDOMEN WITH IV CONTRAST 11/21/2024 REASON FOR EXAM: RULE OUT UMIBILICAL HERNIA Possible diastasis recti. TECHNIQUE: Procedure Code: CTABDW Modality: CT Procedure: ABDOMEN WITH IV CONTRAST Multiplanar Sagittal and Coronal images were obtained. One or more dose reduction techniques were used (e.g., Automated exposure control, adjustment of the mA and/or kV according to patient size, use of iterative reconstruction technique. CONTRAST: Isovue-300 VOLUME: 100 mL RADIATION DOSE SUMMARY: CTDlvol: 13.88 mGy DLP: 443.65 mGycm COMPARISON: Prior study dated January 04, 2024. FINDINGS: Lung bases: The lung bases are clear. Liver: Diffuse fatty infiltration. Hepatomegaly. Stable 3.2 cm simple cyst in the left lobe of the liver as well as a 1.8 cm cyst in the inferior medial aspect of the right lobe of the liver. Gallbladder: The gallbladder is contracted. Minimal thickening of the gallbladder wall most likely secondary to the contracted state. Spleen: Borderline splenomegaly. Pancreas: Normal size without evidence of mass surrounding inflammation or ductal dilation. Adrenals: Unremarkable Kidneys: Normal renal sizes. No hydronephrosis. Bowel: Unremarkable Lymph nodes: Unremarkable. Vasculature: Unremarkable Peritoneum / Retroperitoneum: Small umbilical hernia containing fat. The neck of the hernia measures 10.9 mm. Bones: Degenerative changes of the spine. CT/Abdomen WITH IV Contrast IMPRESSION: Hepatomegaly and diffuse fatty infiltration of the liver. Stable hepatic cysts . Borderline splenomegaly. Small umbilical hernia containing fat. The neck of the hernia measures 10.9 mm . Reading Location: [facility]
--- OUTSIDE RECORDS SUMMARY | 2024-11-21 06:45 | XMS RPT_ITS | CCD ---
Author Organization [facility] Care Team Providers Care Chaperone Name Role Phone REBEKA HE Unavailable Unavailable AMANDA OSBORNE Unavailable Amanda Carpenter Unavailable [phone] Unavailable Unavailable Amanda Osborne MD Primary Care Provider Amanda Osborne Unavailable Fanny Mckeon Unavailable Unavailable Zenaida Silva Unavailable Sean Malagon Unavailable OSMIN PORTILLO Attending Unavailable AMANDA OSBORNE Primary Care Unavailable SELF, SELF Referring Unavailable AMANDA OSBORNE Primary Care Unavailable SELF, SELF Referring Unavailable MONICA KWAN Attending Unavailable Amanda Osborne Primary Care Flip Silva, Dr. Zenaida Hsu Attending Flip Silva, Dr. Zenaida Hsu Referring Amanda Carpenter Primary Care Fanny Echavarria Attending Unavailable Vesna, Dr. Sean Iyer Attending Unavail able Amanda Osborne Primary Care Dr. Zenaida Shaffer Attending Provider Dr. Zenaida Barrett Referring Provider Dr. Zenaida Barrett Other Provider Dr. Amanda Osborne Primary Care Provider Dr. Zenaida Barrett Admit Provider [phone] Amanda Osborne Referring Provider Kisha SENIOR PHARMACY TECHNICIAN, SENIOR PHARMACY TECHNICIAN-C Rachel E Attending Provider [phone] Kisha SENIOR PHARMACY TECHNICIAN, SENIOR PHARMACY TECHNICIAN-C Rachel E Referring Provider Kisha SENIOR PHARMACY TECHNICIAN, SENIOR PHARMACY TECHNICIAN-C Rachel E Other Provider Dr. Dustin Shore Attending Provider Arnold, Dr. Zenaida Blair Attending Provider [phone] Arnold, Dr. Zenaida Blair Attending Provider [phone] Arnold, Dr. Zenaida Blair Referring Provider [phone] Arnold, Dr. Zenaida Blair Other Provider [phone] Olena, Dr. Patel Primary Care Provider Arnold, Dr. Zenaida Blair Admit Provider [phone] Olena, Dr. Patel Referring Provider [phone] Kisha SENIOR PHARMACY TECHNICIAN, SENIOR PHARMACY TECHNICIAN-C Rachel E Attending Provider Kisha SENIOR PHARMACY TECHNICIAN, SENIOR PHARMACY TECHNICIAN-C Rachel E Referring Provider [phone] Kisha SENIOR PHARMACY TECHNICIAN, SENIOR PHARMACY TECHNICIAN-C Rachel E Other Provider [phone] Dr. Dustin Shore Attending Provider [phone] Dr. Robby Castellon Attending Provider Maldonado SENIOR PHARMACY TECHNICIAN, SENIOR PHARMACY TECHNICIAN-C Sarah Beth Attending Provider Dr. Amanda Osborne Primary Care Provider Dr. Amanda Osborne Referring Provider [phone] Dr. Zenaida Barrett Attending Provider [phone] Kisha SENIOR PHARMACY TECHNICIAN, SENIOR PHARMACY TECHNICIAN-C Rachel E Attending Provider Dr. Amanda Osborne Primary Care Provider Dr. Amanda Osborne Referring Provider Dr. Zenaida Barrett Attending Provider [phone] Dr. Zenaida Barrett Admit Provider [phone] Arnold, Dr. Zenaida Blair Referring Provider [phone] Dr. Zenaida Barrett Other Provider MD AMANDA OSBORNE Attending Monica MD AMANDA Cuevas Referring Monica austinilaMD AMANDA Aguilar Primary Care Monica vailaMD ZENAIDA Maki Attending Unavail able MD ZENAIDA SILVA Referring Unavail able MD AMANDA OSBORNE Primary Care Monica vailable MD ZENAIDA SILVA Attending Unavail able MD AMANDA OSBORNE Primary Care Monica vailable MD ZENAIDA SILVA Attending Unavail able MD AMANDA OSBORNE Primary Care Monica MD AMANDA Cuevas Primary Care Monica vailable Malia, Ms. Irene Raeann Attending Monicavai surjit Osborne, Dr. Patel Primary Care Provider Dr. Zenaida Barrett Admit Provider Dr. Zenaida Barrett Attending Provider Dr. Zenaida Barrett Referring Provider Dr. Zenaida Barrett Other Provider Dr. Amanda Osborne Referring Provider [phone] Kisha SENIOR PHARMACY TECHNICIAN, SENIOR PHARMACY TECHNICIAN-Prashant Zarate Attending Provider [phone] Amanda Osborne MD Primary Care Provider Amanda Osborne MD Unavailable AMANDA OSBORNE Primary Care Unavailab AB Goldberg Attending Unavailable Amanda Osborne MD Primary Care Provider Amanda Osborne MD Unavailable AMANDA OSBORNE Primary Care Unavailab Dr. Amanda Han MD Primary Care Provide r Dr. Amanda Osborne MD Referring Provider Dr. Marlon Allen MD Attending Provider Gordon ROBERTO, Dr. Smith Attending Provider Tiffany ROBERTO, Dr. Mason Referring Provider Tiffany ROBERTO, Dr. Mason Admit Provider Tiffany ROBERTO, Dr. Mason Other Provider Kisha SENIOR PHARMACY TECHNICIAN-C, Rachel E Attending Provider Kisha SENIOR PHARMACY TECHNICIAN-C, Rachel E Referring Provider Olena ROBERTO, Dr. Patel Primary Care Provide r Olena ROBERTO, Dr. Patel Referring Provider Tiffany ROBERTO, Dr. Mason Attending Provider Olena ROBERTO, Dr. Patel Primary Care Provide r Olena ROBERTO, Dr. Patel Referring Provider Kisha SENIOR PHARMACY TECHNICIAN-C, Rachel E Attending Provider Tiffany ROBERTO, Dr. Mason Attending Provider Tiffany ROBERTO, Dr. Mason Other Provider Tiffany ROBRETO, Dr. Mason Referring Provider Olena ROBERTO, Dr. Patel Primary Care Provide r Olena ROBERTO, Dr. Patel Referring Provider Kisha SENIOR PHARMACY TECHNICIAN-C, Rachel E Attending Provider Olena ROBERTO, Dr. Patel Primary Care Provide r Olena ROBERTO, Dr. Patel Referring Provider Kisha SENIOR PHARMACY TECHNICIAN-C, Rachel E Attending Provider Olena ROBERTO, Dr. Patel Primary Care Provide r Olena ROBERTO, Dr. Patel Referring Provider Tiffany ROBERTO, Dr. Mason Attending Provider Olena ROBERTO, Dr. Patel Primary Care Provide r Tiffany ROBERTO, Dr. Mason Attending Provider Kisha SENIOR PHARMACY TECHNICIAN-C, Rachel Zarate Referring Provider Tiffany ROBERTO, Dr. Mason Other Provider Olena ROBERTO, Dr. Patel Referring Provider Olena ROBERTO, Dr. Patel Primary Care Provide r Tiffany ROBERTO, Dr. Mason Attending Provider Tiffany ROBERTO, Dr. Mason Other Provider Tam ROBERTO, Dr. Mario Blair Attending Provider Olena ROBERTO, Amanda Blair Primary Care Provider Olena ROBERTO, Amanda Blair Unavailable AMANDA OSBORNE Attending Unavailab le LONGSDORF, AMANDA A Primary Care Unavailab le LONGSDORF, AMANDA A Attending Unavailab le LONGSDORF, AMANDA A Primary Care Unavailab ZENAIDA Eden Attending Unavailable LONGSDORF, AMANDA A Primary Care Unavailab le LONGSDORF, AMANDA A Attending Unavailab le LONGSDORF, AMANDA A Primary Care Unavailab le Kisha SENIOR PHARMACY TECHNICIAN, Rachel Zarate Attending Unavailabl e Longsdorf, Amanda Primary Care Unavailable Longsdorf, Amanda Referring Unavailable Kisha SENIOR PHARMACY TECHNICIAN, Rachel Zarate Attending Unavailabl e Longsdorf, Amanda Primary Care Unavailable Longsdorf, Amanda Referring Unavailable Siska, Marlon Referring Unavailable Siska Marlon Attending Unavailable Longsdorf, Amanda Primary Care Unavailable Tiffany Marlon Admitting Unavailable Siska Marlon Referring Unavailable Longsdorf, Amanda Primary Care Unavailable Mario Turcios Attending Unavailable SiskaMarlon Attending Unavailable Longsdorf, Amanda Primary Care Unavailable Longsdorf, Amanda Referring Unavailable Longsdorf, Amanda Primary Care Unavailable Siska, Marlon Attending Unavailable Longsdorf, Amanda Referring Unavailable Siska, Marlon Attending Unavailable Longsdorf, Amanda Referring Unavailable Longsdorf, Amanda Primary Care Unavailable Siska, Marlon Referring Unavailable Siska, Marlon Attending Unavailable Siska Marlon Consulting Unavailable Longsdorf, Amanda Primary Care Unavailable Tiffany Marlon Admitting Unavailable Kisha SENIOR PHARMACY TECHNICIAN, Rachel E Attending Unavailabl e Kisha SENIOR PHARMACY TECHNICIAN, Rachel E Referring Unavailabl e Longsdorf, Amanda Primary Care Unavailable Marlon Allen Attending Unavailable Kisha SENIOR PHARMACY TECHNICIAN, Rachel E Referring Unavailabl e Longsdorf, Amanda Primary Care Unavailable Marlon Allen Attending Unavailable Kisha SENIOR PHARMACY TECHNICIAN, Rachel E Referring Unavailabl e Longsdorf, Amanda Primary Care Unavailable Marlon Allen Attending Unavailable Kisha SENIOR PHARMACY TECHNICIAN, Rachel E Referring Unavailabl e Longsdorf, Amanda Primary Care Unavailable Kisha SENIOR PHARMACY TECHNICIAN, Rachel E Attending Unavailabl e Longsdorf, Amanda Referring Unavailable Longsdorf, Amanda Primary Care Unavailable Kisha SENIOR PHARMACY TECHNICIAN, Rachel E Attending Unavailabl e Longsdorf, Amanda Primary Care Unavailable Longsdorf, Amanda Referring Unavailable Marlon Allen Attending Unavailable Longsdorf, Amanda Primary Care Unavailable Longsdorf, Amanda Referring Unavailable Marlon Allen Attending Unavailable Longsdorf, Amanda Primary Care Unavailable Longsdorf, Amanda Referring Unavailable Marlon Allen Attending Unavailable Marlon Allen Referring Unavailable Longsdorf, Amanda Primary Care Unavailable Marlon Allen Consulting Unavailable Tiffany Marlon Referring Unavailable Longsdorf, Amanda Primary Care Unavailable Marlon Allen Attending Unavailable Marlon Allen Admitting Unavailable Marlon Allen Referring Unavailable Longsdorf, Amanda Primary Care Unavailable Marlon Allen Attending Unavailable Marlon Allen Attending Unavailable Tiffany Marlon Referring Unavailable Longsdorf, Amanda Primary Care Unavailable Marlon Allen Attending Unavailable Kisha SENIOR PHARMACY TECHNICIAN, Rachel E Referring Unavailabl e Longsdorf, Amanda Primary Care Unavailable Marlon Allen Consulting Unavailable Marlon Allen Attending Unavailable Longsdorf, Amanda Primary Care Unavailable Longsdorf, Amanda Referring Unavailable Marlon Allen Attending Unavailable Longsdorf, Amanda Primary Care Unavailable Longsdorf, Amanda Referring Unavailable Kisha SENIOR PHARMACY TECHNICIAN, Rachel E Attending Unavailabl e Longsdorf, Amanda Referring Unavailable Longsdorf, Amanda Primary Care Unavailable Marlon Allen Attending Unavailable Longsdorf, Amanda Referring Unavailable Longsdorf, Amanda Primary Care Unavailable Marlon Allen Attending Unavailable Longsdorf, Amanda Primary Care Unavailable Longsdorf, Amanda Referring Unavailable Marlon Allen Referring Unavailable Sarah Leyva Attending Unavailabl e Longsdorf, Amanda Primary Care Unavailable Siska, Marlon Attending Unavailable Kisha SENIOR PHARMACY TECHNICIAN, Rachel E Referring Unavailabl e Longsdorf, Amanda Primary Care Unavailable Siska, Marlon Consulting Unavailable Siska, Marlon Attending Unavailable Kisha SENIOR PHARMACY TECHNICIAN, Rachel E Referring Unavailabl e Longsdorf, Amanda Primary Care Unavailable Siska, Marlon Consulting Unavailable Siska, Marlon Attending Unavailable Kisha SENIOR PHARMACY TECHNICIAN, Rachel E Referring Unavailabl e Siska, Marlon Consulting Unavailable Longsdorf, Amanda Primary Care Unavailable Siska, Marlon Referring Unavailable Siska, Marlon Attending Unavailable Siska, Marlon Consulting Unavailable Longsdorf, Amanda Primary Care Unavailable Siska, Marlon Admitting Unavailable Siska, Marlon Attending Unavailable Longsdorf, Amanda Primary Care Unavailable Longsdorf, Amanda Referring Unavailable Siska, Marlon Attending Unavailable Longsdorf, Amanda Primary Care Unavailable Longsdorf, Amanda Referring Unavailable Siska, Marlon Attending Unavailable Longsdorf, Amanda Primary Care Unavailable Longsdorf, Amanda Referring Unavailable Siska, Marlon Attending Unavailable Longsdorf, Amanda Primary Care Unavailable Longsdorf, Amanda Referring Unavailable Siska, Marlon Attending Unavailable Longsdorf, Amanda Primary Care Unavailable Longsdorf, Amanda Referring Unavailable Allergies Allergy Classification Reported Allergen(s) Allergy Type Date of Onset Reaction(s) Facility Penicillins (antibiotic) (2 sources) Penicillins; Translations: [Penicillins] Drug Allergy [facility] Work Phone: (20 sources) Penicillins; Translations: [Penicillins] Allergy to drug (finding) 2 [facility] (16 sources) Penicillins Allergy to substance 3 [facility] (6 sources) Penicillins Drug Intolerance 2 [facility] Work Phone: (1 source) Penicillins Drug Intolerance 2 [facility] (1 source) Penicillins Drug allergy (disorder) 5 [facility] Repository Medications Current Medications Medication Drug Class(es) Dates Sig (Normalized) Sig (Original) [id number] 200 actuat albuterol 0.09 mg/actuat metered dose [...] days 6 tablet 0 03/16/2021 03/20/2021 Active calcium ascorbate 500 mg oral tablet (1 source) Start: 11-03-2024 take 1 tablet by mouth once daily Ascorbate Calcium (Vitamin C) 500 mg tablet Active 500 mg PO daily November 03, 2024 12:00am calcium carbonate 1250 mg chewable tablet (1 source) Start: 11-03-2024 take 1 tablet by mouth once daily Calcium Carbonate 500 mg calcium (1,250 mg) tablet,chewable Active 500 mg PO daily November 03, 2024 12:00am cefadroxil 500 mg oral capsule (3 sources) Cephalosporin Antibacterial Start: 04-14-2022 take 500 mg by mouth twice daily Cefadroxil Active 500 MG PO TWICE A DAY April 14, 2022 12:00am cholecalciferol 0.025 mg oral capsule (1 source) Vitamin D Start: 11-03-2024 take 1 capsule by mouth once daily Cholecalciferol (Vitamin D3) 25 mcg (1,000 unit) capsule Active 25 ug PO daily November 03, 2024 12:00am erythromycin ethylsuccinate 400 mg oral tablet (2 sources) Macrolide, Macrolide Antimicrobial Start: 06-02-2022 Erythromycin Ethylsuccinate (E.E.S. 400) 400 mg tablet Active 400 MG PO EVERY 6 HOURS 84 June 02, 2022 12:00am fluticasone propionate 0.05 mg/actuat metered dose nasal spray (12 sources) Corticosteroid Start: 09-22-2024 take 2 spray(s) nasal route twice daily fluticasone (Flonase) 50 mcg/actuation nasal spray Indications: Allergic rhinitis, unspecified seasonality, unspecified trigger Administer 2 sprays into each nostril 2 times a day. 48 mL 1 09/22/2024 Active Start: 08-28-2023 take 2 spray(s) nasa l route twice [...] for Migraine Headache March 28, 2022 1:00am Start: 03-02-2022 take 1 tablet by viola [...] of this medication.Take with food or milk. Magnesium (1 source) Start: take 1 tablet by mouth once daily Magnesium 200 mg tablet Active 200 mg PO daily November 03, 2024 12:00am Multivitamin tablet (1 source) Start: Multivitamin tablet Active 1 {tbl} PO EVERY MORNING November 03, 2024 12:00am omeprazole 40 mg delayed release oral capsule (20 sources) Proton Pump Inhibitor Start: take 1 capsule by mouth once daily omeprazole (PriLOSEC) [address] capsule Indications: Gastroesophageal reflux disease, unspecified whether esophagitis present Take 1 capsule (40 mg) by mouth once daily. 90 capsule 3 03/21/2024 Active Start: 03-05-2022 End: 03-21-2024 take 1 capsule by mouth once daily Omeprazole 40 mg capsule,delayed release(DR/EC) Active 40 mg PO DAILY March 28, 2022 1:00am gerd ondansetron 4 mg disintegrating oral tablet (20 sources) Serotonin-3 Receptor Antagonist Start: 04-03-2024 take 1 tablet by mouth every eight hours as needed for nausea and vomiting Ondansetron 4 mg tablet,disintegrating Active 4 mg PO Q8H as needed for nausea and vomiting 10 0 April 03, 2024 1:00am Start: 01-23-2023 End: 01-04-2024 take 1 tablet by mouth every eight hours as needed for nausea and vomiting Ondansetron 4 mg tablet,disintegrating Discontinued 4 mg PO Q8H as needed for nausea and vomiting 10 5 0 January 23, 2023 1:00am January 04, 2024 8:23am Start: 04-14-2022 End: 05-22-2022 take 1 tablet by mouth every eight hours as needed for nausea and vomiting Ondansetron 4 mg tablet,disintegrating Discontinued 4 mg PO Q8H as needed for nausea and vomiting 15 5 0 April 14, 2022 1:00am May 22, 2022 1:56pm [...] Start: 01-04-2021 take 1 tablet by viola twice daily Sulfamethoxazole-Trimethoprim 800-160 MG Oral Tablet [...] for cold sores March 28, 2022 1:00am zinc gluconate 100 mg oral tablet (1 source) Start: 11-03-2024 take 1 tablet by mouth once daily Zinc Gluconate 100 mg tablet Active 100 mg PO daily November 03, 2024 12:00am Completed/Discontinued Medications Medication Drug Class(es) Dates Sig (Normalized) Sig (Original) acetaminophen 325 mg / HYDROcodone bitartrate 5 mg oral tablet (1 source) Opioid Agonist Start: 06-03-2019 End: 06-05-2019 take 1 tablet by mouth every four hours hydrocodone-acetami nophen 5 mg-325 mg oral tablet ; 1 [...] / oxyCODONE hydrochloride 5 mg oral tablet (20 sources) Opioid Agonist Start: 01-23-2023 End: 01-04-2024 Oxycodone-Acetamino phen (Percocet) 5-325 mg tablet Discontinued 1 {tbl} PO EVERY 6 HOURS as needed for pain (scale score 7-10) 28 7 0 January 23, 2023 January 04, 2024 8:23am Other acute postprocedural pain Other acute postprocedural pain Start: 12-25-2022 End: 01-01-2023 Oxycodone-Acetaminophen (Per cocet) 5-325 mg tablet Discontinued 1 {tbl} PO TWICE A DAY as needed for pain (scale score 7-10) 14 7 0 December 25, 2022 December 31, 2022 12:00am January 01, 2023 12:04am Other acute postprocedural pain Other acute postprocedural pain 14 tabs (fourteen) Start: 10-05-2022 take 1 tablet by viola th every six hours Oxycodone-Acetaminophen (Percocet) 5-325 mg tablet Active 1 TABLET PO EVERY 6 HOURS 28 October 05, 2022 28 tabs (twenty-eight) Start: 06-02-2022 take 1 tablet by viola th every four hours Oxycodone-Acetaminophen (Percocet) 5-325 mg tablet Active 1 TABLET PO Q4H 40 7 June 02, 2022 40 tabs (forty) Start: 04-14-2022 take 1 tablet by viola th every four hours Oxycodone-Acetaminophen (Percocet) 5-325 mg tablet Active 1 TABLET PO Q4H 40 7 April 14, 2022 celecoxib 100 mg oral capsule (8 sources) Nonsteroidal Anti-inflammatory Drug Start: 04-03-2024 End: 08-03-2024 take 1 capsule by mouth twice daily Celecoxib (Celebrex) 100 mg capsule Discontinued 100 mg PO TWICE A DAY 10 5 0 April 03, 2024 1:00am August 03, 2024 3:03pm cetirizine hydrochloride 10 mg oral tablet (5 sources) Histamine-1 Receptor Antagonist Start: 03-05-2022 take 1 tablet by mouth once daily Cetirizine HCl - 10 MG Oral Tablet TAKE 1 TABLET DAILY DIRECTED. Quantity: 90 Refills: 3 Ordered: 05-Mar-2022 Amanda Osborne MD Start : 05-Mar-2022 Active clindamycin 150 mg oral capsule (20 sources) Lincosamide Antibacterial Start: 08-17-2024 End: 10-13-2024 take 1 capsule by mouth three times daily Clindamycin Hcl (Cleocin Hcl) 150 mg capsule Discontinued 150 mg PO THREE TIMES A DAY 15 5 0 August 17, 2024 12:00am October 13, 2024 3:40pm Start: 04-03-2024 End: 04-11-2024 take 1 capsule by mouth every eight hours Clindamycin Hcl 300 mg capsule Discontinued 300 mg PO Q8H 21 7 0 April 03, 2024 1:00am April 11, 2024 4:08pm [...] TWICE A DAY as needed for spasm 14 December 25, 2022 12:00am January 04, 2024 8:23am Start: 10-05-2022 End: 01-13-2023 take 1 tablet by mouth four times daily as needed for muscle spasms Diazepam (Valium) 5 mg tablet Discontinued 5 mg PO 4 TIMES DAILY NEEDED as needed for spasms 28 November 24, 2022 4:56pm January 13, 2023 11:38am 28 tabs (twenty-eight) Start: 06-02-2022 take 1 tablet by viola th three times daily Diazepam (Valium) 5 mg tablet Active 5 MG PO THREE TIMES A DAY 30 June 02, 2022 12:00am 30 tabs (thirty) Start: 04-14-2022 take 1 tablet by viola th twice daily Diazepam (Valium) 5 mg tablet Active 5 MG PO TWICE A DAY 14 April 14, 2022 12:00am docusate sodium 100 mg oral capsule (20 sources) Start: 01-23-2023 End: 01-04-2024 take 1 capsule by mouth once daily as needed for constipation Docusate Sodium 100 mg Capsule Discontinued 100 mg PO DAILY NEEDED as needed for constipation 30 30 January 23, 2023 3:18pm January 04, 2024 8:23am Start: 10-05-2022 End: 12-23-2022 take 1 capsule by mouth twice daily Docusate Sodium (Colace) 100 mg capsule Discontinued 100 mg PO TWICE A DAY 60 October 05, 2022 12:00am December 23, 2022 1:14pm Start: 04-14-2022 take 1 capsule by mo [facility] once daily Docusate Sodium (Colace) 100 mg capsule Active 100 MG PO DAILY 30 April 14, 2022 12:00am doxycycline hyclate 100 mg oral capsule (20 sources) Tetracycline-class Drug Start: 05-03-2024 End: 05-10-2024 take 1 capsule by mouth twice daily Doxycycline Hyclate 100 mg capsule Discontinued 100 mg PO TWICE A DAY 14 7 0 May 03, 2024 1:00am May 09, 2024 [...] Discontinued 100 mg PO TWICE A DAY 28 14 1 May 22, 2022 1:00am June 02, 2022 3:38pm fluconazole 200 mg oral tablet (11 sources) Azole Antifungal Start: 07-29-2022 End: 10-23-2022 take 2 tablets by mouth once daily Fluconazole (Diflucan) 200 mg tablet Discontinued 400 mg PO DAILY 56 28 July 29, 2022 12:00am October 23, 2022 10:20am gabapentin 100 mg oral capsule (8 sources) Anti-epileptic Agent Start: 04-03-2024 End: 08-03-2024 take 1 capsule by mouth three times daily Gabapentin (Neurontin) 100 mg capsule Discontinued 100 mg PO THREE TIMES A DAY 15 5 0 April 03, 2024 12:00pm August 03, 2024 3:03pm L.Acidoph,Saliva-B .Bif-S.Therm (Acidophilus Probiotic Blend) 175 mg capsule (16 sources) Start: 10-05-2022 End: 10-23-2022 take 1 capsule by mouth once daily L.Acidoph,Saliva-B. Bif-S.Therm (Acidophilus Probiotic Blend) 175 mg capsule Discontinued 1 NMA PO DAILY 30 0 October 05, 2022 12:00am October 23, 2022 [...] mg capsule Active 1 CAP PO DAILY 14 April 14, 2022 12:00am levoFLOXacin 500 mg oral tablet (20 sources) Quinolone Antimicrobial Start: 01-23-2023 End: 01-05-2024 take 1 tablet by mouth once daily Levofloxacin 500 mg tablet Discontinued 500 mg PO DAILY 14 March 02, 2023 1:00am March 26, 2023 11:19pm Start: 05-12-2022 End: 06-02-2022 take 1 tablet by mouth once daily Levofloxacin 500 mg tablet Discontinued 500 mg PO DAILY 0 May 12, 2022 1:00am June 02, 2022 [...] Substitution Allowed linezolid 600 mg oral tablet (20 sources) Oxazolidinone Antibacterial Start: 10-05-2022 End: 11-13-2022 take 1 tablet by mouth every twelve hours Linezolid 600 mg tablet Discontinued 600 mg PO Q12H 24 12 0 November 01, 2022 9:25pm November 12, 2022 12:00am November 13, 2022 12:04am History of reconstruction of both breasts Other specified postprocedural states oxyCODONE hydrochloride 5 mg oral tablet (15 sources) Opioid Agonist Start: 08-17-2024 End: 10-13-2024 take 1 tablet by mouth every eight hours as needed for pain Oxycodone 5 mg tablet Discontinued 5 mg PO Q8H as needed for pain 20 7 0 August 17, 2024 October 13, 2024 3:40pm History of reconstruction of both breasts Other specified postprocedural states Start: 04-03-2024 End: 05-03-2024 take 1 tablet by mouth every eight hours as needed for pain Oxycodone 5 mg tablet Discontinued 5 mg PO Q8H as needed for pain 20 7 0 April 03, 2024 May 03, 2024 9:42am History of reconstruction of both breasts Other specified postprocedural states Start: 01-02-2019 End: 01-03-2019 take 1 tablet [...] than prescribed may cause serious breathing problems. silver sulfADIAZINE 10 mg/ml topical cream (8 sources) Sulfonamide Antibacterial Start: 04-03-2024 End: 08-03-2024 Silver Sulfadiazine 1 % cream Discontinued 1 NMA TOPICAL TWICE A DAY 50 0 April 03, 2024 1:00am August 03, 2024 3:03pm History of reconstruction of both breasts Other specified postprocedural states apply a 1.5 mm thickness to the umbilicus and to the breast incisions twice daily Problems Active Problems Problem Classification Problem Date Documented Date Episodic/Chronic Acute posthemorrhagic anemia (20 sources) Anemia following acute postoperative blood loss; Translations: [Acute posthemorrhagic anemia] 04-12-2022 Episodic Allergic reactions (17 sources) Allergy status to penicillin; Translations: [Allergic condition] Onset: 03-10-20 22 04-22-2021 Episodic Anxiety disorders (20 sources) Fear of [...] (LGSIL)] 02-24-2023 Episodic Chronic ulcer of skin (20 sources) Chronic ulcer of skin; Translations: [Non-pressure [...] Onset: 03-10-20 Episodic Deficiency and other anemia (11 sources) Anemia; Translations: [Anemia, unspecified] 07-03-2022 Episodic Deficiency and other anemia (4 sources) Anemia, unspecified; Translations: [Anemia, unspecified] 07-01-2022 Episodic Diseases of mouth; excluding dental (2 sources) Glossitis; Translations: [Other diseases of tongue] Onset: 03-02-20 Episodic Disorders of lipid metabolism (1 source) Pure hypercholesterolemia, unspecified; Translations: [Pure hypercholesterolemia, unspecified] Onset: 03-10-20 Chronic Esophageal disorders (6 sources) Gastroesophageal reflux disease without esophagitis; Translations: [...] migrainosus] Onset: 01-05-2004-17-2023 Chronic Headache; including migraine (16 sources) Frequent headache; Translations: [Frequent headaches] 04-22-2021 Episodic Influenza (2 sources) Influenza 03-10-2022 Comment on above: FLU SYMPTOMS, SOB Menopausal disorders (20 sources) Menopausal symptom; Translations: [Symptomatic menopausal or female climacteric states] Chronic Mycoses (15 sources) Dermal mycosis; Translations: [Superficial mycosis, unspecified] 07-03-2022 Episodic Nausea and vomiting (20 sources) Postoperative nausea and vomiting; Translations: [Nausea with vomiting, unspecified] 04-14-2022 Episodic Nonmalignant breast conditions (20 sources) Pain of breast; Translations: [Mastodynia] Onset: 05-03-1905-11-2021 Episodic Comment on above: pseudoptosis excess mastectomy sk in contour deformity lateral aspects both breasts reconstruction planned disproportio n of reconstructed breasts Other aftercare (15 sources) Surgical follow-up; Translations: [Follow-up examination, following surgery, unspecified] Episodic Other aftercare (1 source) Other nursing home (current) drug therapy; Translations: [Other salvage determiner (current) drug therapy] Onset: 03-10-20 Episodic Other connective tissue disease (1 source) Swelling of left lower limb; Translations: [Other specified soft tissue disorders] 04-17-2023 Episodic Other connective tissue disease (3 sources) Diastasis recti; Translations: [Separation of muscle (nontraumatic), other site] 10-13-2024 Episodic Comment on above: After Michelle flap marshall nstruction Other connective tissue disease (1 source) Separation of muscle (nontraumatic), other site; Translations: [Separation of muscle (nontraumatic), other site] Onset: 11-04-19 Episodic Other female genital disorders (14 sources) [...] Onset: 03-10-20 Episodic Other nervous system disorders (6 sources) Carpal tunnel syndrome of left wrist; Translations: [Carpal tunnel syndrome, left upper limb] 08-17-2024 Chronic Other nervous system disorders (18 sources) Acute postoperative pain; Translations: [Other acute postprocedural pain] 04-14-2022 Episodic Other nutritional; endocrine; and metabolic disorders (2 sources) Body mass index 30+ - obesity; Translations: [Obesity, unspecified] Onset: 11-08-19 25 11-07-2024 Chronic Other and delivery including normal (20 sources) Delivery normal; Translations: [Normal delivery] Episodic Comment on above: [id number]; Other upper respiratory disease (1 source) Congestion of nasal sinus; Translations: [Nasal congestion] Episodic Other upper respiratory infections (8 sources) Acute maxillary sinusitis; Translations: [Acute maxillary sinusitis, unspecified] Onset: 03-16-19 Episodic Residual codes; unclassified (15 sources) History of bilateral breast implants; Translations: [...] Comment on above: 06/09/2018; Residual codes; unclassified (20 sources) Genetic mutation; Translations: [Genetic susceptibility to other disease] 01-11-2022 Episodic Residual codes; unclassified (2 sources) Chills (without fever); Translations: [Chills (without fever)] Onset: 03-02-20 Episodic Residual codes; unclassified (20 sources) Prevention status; Translations: [Encounter for prophylactic removal of breast] 01-11-2022 Episodic Comment on above: planned prophylactic bilateral breast removal earlier in the 2021 Residual codes; unclassified (16 sources) Bilateral acquired absence of breast; Translations: [Acquired absence of bilateral breasts and nipples] 01-11-2022 Episodic Comment on above: planned acquired abs ence bilateral breasts and nipples Residual codes; unclassified (16 sources) Procedure related finding; Translations: [Encounter for cosmetic surgery] 01-11-2022 Episodic Residual codes; unclassified (16 sources) Family history of breast cancer; Translations: [Family history of malignant neoplasm of breast] 05-11-2021 Episodic Residual codes; unclassified (16 sources) Genetic susceptibility to cancer; Translations: [Genetic [...] ovary removal] 01-09-2022 Episodic Residual codes; unclassified (20 sources) History of breast reconstruction; Translations: [Other [...] of free nipple graft - . Bilateral MICHELLE flaps Mar 2024. Residual codes; unclassified (17 sources) Other specified postprocedural states; Translations: [Breast replacement] Onset: 09-02-1904-29-2022 Episodic Residual codes; unclassified (20 sources) History of bilateral breast reconstruction; Translations: [Other specified postprocedural states] 06-12-2022 Episodic Comment on above: left breast reconstr uction with removal of saline tissue croze cutter helper with replacement cohesive gel implant (630 ml) and placement of MTF FlexHD acellular dermal matrix graft, (Pliable Shaped Perforated, Large, Thick, 13x22 cm, 2 pieces) and revisionreconstructed left breast with superior capsulotomy and excision excess mastectomy skin contour deformity laterally and revision asymmetric inframammary fold with internal capsular plication and right breast reconstruction with removal of saline tissue croze cutter helper with replacement cohesive gel implant (630 ml) [...] reconstruction with placement of submuscular saline tissue croze cutter helper (650 ml) and placement MTF FlexHD acellular dermal matrix graft (23 x 26 cm). 2. First stage revision left breast reconstruction with placement of submuscular saline tissue croze cutter helper (650 ml) and placement MTF FlexHD acellular [...] - 05/30/22 Residual codes; unclassified (20 sources) History of removal of breast implant; [...] implant removal; Translations: [Breast replacement] 06-02-2022 Episodic Screening and history of mental health [...] Cough, unspecified; Translations: [Cough, unspecified] Onset: 03-16-19 22 Unclassified (1 source) Contact with and (suspected) exposure to COVID-19; Translations: [Contact with and (suspected) exposure to COVID-19] Onset: 03-10-20 Unclassified (2 sources) discuss weight loss Onset: 11-08-19 Unclassified (1 source) Esophagitis, unspecified without bleeding; Translations: [Esophagitis, unspecified without bleeding] Onset: 03-21-19 Past or Other Problems Problem Classification Problem Date Documented Date Episodic/Chronic Complication of device; implant or graft (20 sources) Graft complications; Translations: [Other complications of skin graft (allograft) (autograft)] Onset: 05-04-2024 04-25-2022 Episodic Comment on above: right breast Open wounds of head; neck; and trunk (1 source) Unspecified open wound of right breast, initial encounter; Translations: [Unspecified open wound of right breast, initial encounter] Onset: 07-16-2024 Episodic Other screening for suspected conditions (not mental disorders or infectious disease) (20 sources) Patient encounter status; Translations: [Special screening for malignant neoplasms of vagina] Onset: 06-12-2021 Episodic Other upper respiratory disease (2 sources) Nasal congestion; Translations: [Nasal congestion] Onset: 03-16-2021 Episodic Residual codes; unclassified (20 sources) Acquired absence of bilateral breasts and nipples; Translations: [Acquired absence of breast and nipple] Onset: 05-04-2024 01-09-2022 Episodic Residual codes; unclassified (20 sources) Encounter for prophylactic removal of breast; Translations: [Prophylactic breast removal] Onset: 05-04-2024 01-09-2022 Episodic Residual codes; unclassified (20 sources) History of bilateral prophylactic mastectomy; Translations: [Acquired absence of bilateral breasts and nipples] Onset: 01-05-2024 09-25-2022 Episodic Unclassified (1 source) Acute cough; Translations: [Acute cough] Onset: 03-11-2022 Unclassified (1 source) Cough, unspecified; Translations: [Cough, unspecified] Onset: 03-16-2021 Unclassified (3 sources) Onset: 03-01-2024 03-01-2024 Unclassified (1 source) Esophagitis, unspecified without bleeding; Translations: [Esophagitis, unspecified without bleeding] Onset: 03-21-2024 Viral infection (20 sources) Herpes simplex; Translations: [Herpes simplex without mention of complication] Onset: 03-10-2022 03-10-2022 Episodic Results Test Name Value Interpretation Reference Range Facility Surgery Visit Reporton 11-03 Surgery Visit Report [facility] [address] [place] [address] OFFICE VISIT Date of Service: 11/03/24 MR#: [id number] Acct: [id number] Name: IRENE LOPEZ Rep #: [id number] : 1975 Provider: Dr. Mario mtz MD Age/Sex: 48/F Location: [facility] Status: Signed Intake Vital Signs 10/13/24 15:39 11/03/24 08:27 Height 5 ft 5 in 5 ft 5 in Weight: 181 lb BMI 30.1 BP 115/71 125/78 H Blood Pressure Location Lt brachial Rt brachial Position Sitting Sitting Respiration 18 17 Pulse 86 89 Pulse Source Monitor Temp 98.1 F Temp Source Oral Pulse Oximetry (%) 93 93 Oxygen Delivery Method room air room air Intake Visit Reasons: diastases recti- COMBO W/ RS Chief Complaint: diastases recti combo with RS Is patient in pain?: No Allergies Penicillins (PCN) Allergy (Verified 11/03/24 08:28) Hives, RASH Medications ???Medication ???Instructions ???Recorded ???Confirmed ???Type ibuprofen 800 mg tablet 800 mg PO Q12H PRN PRN Migraine 11/03/24 History Headache omeprazole 40 mg capsule,delayed 40 mg PO DAILY gerd 03/28/2211/03 History release sumatriptan succinate 100 mg tablet 100 mg PO PRN PRN MIGRAINE 03/1611/03/24 History valacyclovir 500 mg tablet 500 mg PO DAILY PRN cold sores 11/03/24 History ondansetron 4 mg disintegrating 4 mg PO Q8H PRN nausea and 5 11/03/24 Rx tablet vomiting #10 tabs ascorbate calcium (vitamin C) 500 500 mg PO QDAY 11/03/24 11/03/24 History mg tablet calcium carbonate 500 mg PO QDAY 11/03/24 11/03/24 H istory cholecalciferol (vitamin D3) 25 25 mcg PO QDAY 11/03/24 11/03/24 H istory mcg (1,000 unit) capsule magnesium 200 mg tablet 200 mg PO QDAY 11/03/24 11/03/24 H istory multivitamin 1 tab PO QAM 11/03/24 11/03/24 His tory zinc gluconate 100 mg tablet 100 mg PO QDAY 11/03/24 11/03/24 H istory PFS Medical History Deformity of reconstructed breast GERD [...] Frequent headaches Allergies Surgical History History of breast implant removal Hx of breast reconstruction History of prophylactic [...] Aspirin Does Take Ibuprofen As Needed HPI HPI HPI: The patient is a 48-year-old female who has a history of breast cancer treated with bilateral mastectomy and reconstruction. Her postoperative course was complicated by infection. She had to have implants removed and then tissue expanders placed and then implants replaced. She was seen by Dr. Allen and plastic surgery here at [place] last year for issues related to the right breast implant. She ultimately underwent bilateral Michelle flap reconstruction. She also had an abdominoplasty performed at that time however it seems that she has developed a rectus diastases since then. I was asked to evaluate the patient and assist with surgery as to be performed by . That surgery is scheduled for November 23. Today's appointment is to discuss surgery further and answer any questions that she may have. She denies any new issues or problems since I originally saw her in his office couple of weeks ago ROS General General: Yes weight change and fatigue; No appetite, colon c (more content not included)... Normal [facility] Plastic Surgery Visit Report on 10-13-2024 Plastic Surgery Visit Report [facility] [address], [address] [place] [address] OFFICE VISIT Date of Service: 10/13/24 MR#: [id number] Acct: [id number] Name: IRENE LOPEZ Rep #: [id number] : 1975 Provider: Dr. Marlon Allen MD Age/Sex: 48/F Location: [facility] Status: Signed Intake Vital Signs 3 08/18/24 16:23 10/13/24 15:39 Height 5 ft 5 in 5 ft 5 in BP 115/71 Blood Pressure Location Lt brachial Position Sitting Respiration 18 Pulse 86 Temp 98.1 F Temp Source Oral Pulse Oximetry (%) 93 Oxygen Delivery Method room air Intake Visit Reasons: 1 M FU Chief Complaint: post op breast reconstruction f/u Is patient in pain?: No Allergies Penicillins (PCN) Allergy (Verified 10/13/24 15:40) Hives, RASH Medications 3 ???Medication ???Instructions ???Recorded ???Confirmed ???Type ibuprofen 800 mg tablet 800 mg PO Q12H PRN PRN Migraine 09/01/24 History Headache omeprazole 40 mg capsule,delayed 40 mg PO DAILY gerd 03/28/2209/01 History release sumatriptan succinate 100 mg tablet 100 mg PO PRN PRN MIGRAINE 03/1609/01/24 History valacyclovir 500 mg tablet 500 mg PO DAILY PRN cold sores 09/01/24 History ondansetron 4 mg disintegrating 4 mg PO Q8H PRN nausea and 5 09/01/24 Rx tablet vomiting #10 tabs Nurse's Note: pt post breast reconstruction, concerned with area around umbilicus Subjective Details: Operative Information Date of Procedure: 08/10/24 Pre-Operative Diagnosis: S/p breast reconstruction with bilateral MICHELLE flaps Post-Operative Diagnosis: Same Surgery/Procedure Performed: 1) Bilateral breast reconstruction revision, including removal of skin paddles (CPT: 69919 x 2 with 50 modifier) 2) Fat grafting to the left breast, 80 cc, fat grafting to the right breast, 80 cc (CPT: 04525 and 75407 x 3 units) 3) Excision of hypertrophic abdominal scar, 15 x 1 cm (40750) 4) Intermediate closure of abdominal scar excision site, 15 cm (CPT: 94664) 5) Kenalog injection, umbilicus hypertrophic scar 19 August 2024: Doing well overall. No fevers chills or drainage. Happy with results thus far. 25 August 2024: Doing well overall. Happy thus far. No fevers/chills or drainage. No hard spots. 01 September 2024: The patient is a 48-year-old female presenting with postoperative follow-up care after plastic surgery. Fat grafting was performed to enhance breast symmetry, and the patient is satisfied with the results, noting no fat necrosis. She experiences itching at the surgical site, which is being managed with topical treatments. The patient has been advised to continue massaging the abdominal area to promote softening, particularly around the belly button, which has shown improvement. She is eager to resume normal activities, including swimming, as the incision sites are healing well. She has silicone scar tape and will start using this. Discussed sunscreen/sun protection. Attestation: Documentation on this patient encounter was supported using ambient scribe technology/ voice AI technology. The patient consented to recording for the purpose of documenting the encounter. Provider reviewed content of the generated note prior to signature. Current encounter, 13 October 2024: Patient happy overall with the results of the breast reconstruction. Since the liposuction, she has noticed however more outpouching in the central portion of her abdomen consistent with a diastases (recurrent diastases). Otherwise she is happy and would like continued fat grafting to her breast as able. Objective Details: Female protection mgr present for my exam Breasts are soft, no signs of fat necrosis. Incisions healed. Abdomen with central diastases approximately 5 cm. No palpable hernias. Lower extremities: No swelling/no calf swelling Coding Level of Care Code Global Post Op Diagnoses History of reconstruction of both breasts Z98.890 Diastasis of rectus abdominis M62.08 [facility] Medical History Deformity of reconstructed breast GERD [...] to malignant neoplasm of breast Cancer phobia Monoallel (more content not included)... Normal [facility] Plastic Surgery Visit Report on 09-01-2024 Plastic Surgery Visit Report [facility] [address], [address] [place] [address] OFFICE VISIT Date of Service: 09/01/24 MR#: [id number] Acct: [id number] Name: IRENE LOPEZ Rep #: [id number] : 1975 Provider: Dr. Marlon Allen MD Age/Sex: 48/F Location: [facility] Status: Signed Intake Vital Signs 08/18/24 16:23 09/01/24 10:00 Height 5 ft 5 in BP 114/72 121/79 H Blood Pressure Location Rt brachial Rt brachial Position Sitting Sitting Respiration 18 18 Pulse 70 Pulse Source Monitor Pulse Oximetry (%) 94 Oxygen Delivery Method room air Intake Visit Reasons: 1 W FU Chief Complaint: post op breast reconstruction f/u Is patient in pain?: No Allergies Penicillins (PCN) Allergy (Verified 09/01/24 09:57) Hives, RASH Medications ???Medication ???Instructions ???Recorded ???Confirmed ???Type ibuprofen 800 mg tablet 800 mg PO Q12H PRN PRN Migraine 09/01/24 History Headache omeprazole 40 mg capsule,delayed 40 mg PO DAILY gerd 03/28/2209/01 History release sumatriptan succinate 100 mg tablet 100 mg PO PRN PRN MIGRAINE 03/1609/01/24 History valacyclovir 500 mg tablet 500 mg PO DAILY PRN cold sores 09/01/24 History ondansetron 4 mg disintegrating 4 mg PO Q8H PRN nausea and 5 09/01/24 Rx tablet vomiting #10 tabs clindamycin HCl 150 mg capsule 150 mg PO TID 5 days #15 caps 07/0809/01/24 Rx (Cleocin HCl) oxycodone 5 mg tablet 5 mg PO Q8H PRN pain 7 days #20 09/01/24 Rx tabs Subjective Details: Operative Information Date of Procedure: 08/10/24 Pre-Operative Diagnosis: S/p breast reconstruction with bilateral MICHELLE flaps Post-Operative Diagnosis: Same Surgery/Procedure Performed: 1) Bilateral breast reconstruction revision, including removal of skin paddles (CPT: 38094 x 2 with 50 modifier) 2) Fat grafting to the left breast, 80 cc, fat grafting to the right breast, 80 cc (CPT: 15630 and 99939 x 3 units) 3) Excision of hypertrophic abdominal scar, 15 x 1 cm (14559) 4) Intermediate closure of abdominal scar excision site, 15 cm (CPT: 86462) 5) Kenalog injection, umbilicus hypertrophic scar 19 August 2024: Doing well overall. No fevers chills or drainage. Happy with results thus far. 25 August 2024: Doing well overall. Happy thus far. No fevers/chills or drainage. No hard spots. Current encounter, 01 September 2024: The patient is a 48-year-old female presenting with postoperative follow-up care after plastic surgery. Fat grafting was performed to enhance breast symmetry, and the patient is satisfied with the results, noting no fat necrosis. She experiences itching at the surgical site, which is being managed with topical treatments. The patient has been advised to continue massaging the abdominal area to promote softening, particularly around the belly button, which has shown improvement. She is eager to resume normal activities, including swimming, as the incision sites are healing well. She has silicone scar tape and will start using this. Discussed sunscreen/sun protection. Attestation: Documentation on this patient encounter was supported using ambient scribe technology/ voice AI technology. The patient consented to recording for the purpose of documenting the encounter. Provider reviewed content of the generated note prior to signature. Objective Details: Female protection mgr present for my exam Breasts are soft, no signs of fat necrosis. Incisions are clean dry and intact with Prineo tape in place (removed today). Appropriate swelling of the abdomen and thighs after liposuction. Bruising has subsided. Incision c/d/i on abdomen. Lower extremities: No swelling/no calf swelling Coding Level of Care Code Global Post Op Diagnoses History of reconstruction of both breasts Z98.890 [facility] Medical History Deformity of reconstructed breast GERD [...] of both breasts Pneumonia Frequent headaches Allergies (more content not included)... Normal [facility] Plastic Surgery Visit Report on 08-25-2024 Plastic Surgery Visit Report [facility] [address], [address] [place] [address] OFFICE VISIT Date of Service: 08/25/24 MR#: [id number] Acct: [id number] Name: IRENE LOPEZ Rep #: [id number] : 1975 Provider: Dr. Marlon Allen MD Age/Sex: 48/F Location: [facility] Status: Signed Intake Vital Signs 08/18/24 16:23 08/25/24 10:23 Height 5 ft 5 in BP 114/72 114/70 Blood Pressure Location Rt brachial Lt brachial Position Sitting Sitting Respiration 18 18 Pulse 70 71 Pulse Source Monitor Monitor Pulse Oximetry (%) 94 91 Oxygen Delivery Method room air room air Intake Visit Reasons: 1 W FU Chief Complaint: post op breast reconstruction f/u Is patient in pain?: No Allergies Penicillins (PCN) Allergy (Verified 08/25/24 10:20) Hives, RASH Medications ???Medication ???Instructions ???Recorded ???Confirmed ???Type ibuprofen 800 mg tablet 800 mg PO Q12H PRN PRN Migraine 08/25/24 History Headache omeprazole 40 mg capsule,delayed 40 mg PO DAILY gerd 03/28/2208/25 History release sumatriptan succinate 100 mg tablet 100 mg PO PRN PRN MIGRAINE 03/1608/25/24 History valacyclovir 500 mg tablet 500 mg PO DAILY PRN cold sores 08/25/24 History ondansetron 4 mg disintegrating 4 mg PO Q8H PRN nausea and 5 08/25/24 Rx tablet vomiting #10 tabs clindamycin HCl 150 mg capsule 150 mg PO TID 5 days #15 caps 07/0808/25/24 Rx (Cleocin HCl) oxycodone 5 mg tablet 5 mg PO Q8H PRN pain 7 days #20 08/25/24 Rx tabs Subjective Details: Operative Information Date of Procedure: 08/10/24 Pre-Operative Diagnosis: S/p breast reconstruction with bilateral MICHELLE flaps Post-Operative Diagnosis: Same Surgery/Procedure Performed: 1) Bilateral breast reconstruction revision, including removal of skin paddles (CPT: 03289 x 2 with 50 modifier) 2) Fat grafting to the left breast, 80 cc, fat grafting to the right breast, 80 cc (CPT: 60383 and 43615 x 3 units) 3) Excision of hypertrophic abdominal scar, 15 x 1 cm (50074) 4) Intermediate closure of abdominal scar excision site, 15 cm (CPT: 58031) 5) Kenalog injection, umbilicus hypertrophic scar 19 August 2024: Doing well overall. No fevers chills or drainage. Happy with results thus far. Current encounter, 25 August 2024: Doing well overall. Happy thus far. No fevers/chills or drainage. No hard spots. Objective Details: Female protection mgr present for my exam Breasts are soft, no signs of fat necrosis. Incisions are clean dry and intact with Prineo tape in place. Appropriate swelling of the abdomen and thighs after liposuction and yellow bruising (healing). Steri-Strips in place with no drainage. Removed and the sutures were removed (prolene) Lower extremities: No swelling/no calf swelling Coding Level of Care Code Global Post Op Diagnoses History of reconstruction of both breasts Z98.890 [facility] Medical History Deformity of reconstructed breast GERD [...] Frequent headaches Allergies Surgical History History of breast implant removal Hx of breast reconstruction History of prophylactic [...] Take Aspirin Does Take Ibuprofen As Needed As (more content not included)... Normal [facility] Plastic Surgery Visit Report on 08-19-2024 Plastic Surgery Visit Report [facility] [address], [address] [place] [address] OFFICE VISIT Date of Service: 08/19/24 MR#: [id number] Acct: [id number] Name: IRENE LOPEZ Rep #: [id number] : 1975 Provider: Dr. Marlon Allen MD Age/Sex: 48/F Location: [facility] Status: Signed Intake Vital Signs 08/17/24 06:29 08/18/24 16:23 Height 5 ft 5 in 5 ft 5 in BP 114/72 Blood Pressure Location Rt brachial Position Sitting Respiration 18 Pulse 70 Pulse Source Monitor Pulse Oximetry (%) 94 Oxygen Delivery Method room air Intake Visit Reasons: POST OP Chief Complaint: post op breast reconstruction f/u Is patient in pain?: Yes Allergies Penicillins (PCN) Allergy (Verified 08/19/24 08:45) Hives, RASH Medications ???Medication ???Instructions ???Recorded ???Confirmed ???Type ibuprofen 800 mg tablet 800 mg PO Q12H PRN PRN Migraine 08/19/24 History Headache omeprazole 40 mg capsule,delayed 40 mg PO DAILY gerd 03/28/2208/19 History release sumatriptan succinate 100 mg tablet 100 mg PO PRN PRN MIGRAINE 03/1608/19/24 History valacyclovir 500 mg tablet 500 mg PO DAILY PRN cold sores 08/19/24 History ondansetron 4 mg disintegrating 4 mg PO Q8H PRN nausea and 5 08/19/24 Rx tablet vomiting #10 tabs clindamycin HCl 150 mg capsule 150 mg PO TID 5 days #15 caps 07/0808/19/24 Rx (Cleocin HCl) oxycodone 5 mg tablet 5 mg PO Q8H PRN pain 7 days #20 08/19/24 Rx tabs Subjective Details: Operative Information Date of Procedure: 08/10/24 Pre-Operative Diagnosis: S/p breast reconstruction with bilateral MICHELLE flaps Post-Operative Diagnosis: Same Surgery/Procedure Performed: 1) Bilateral breast reconstruction revision, including removal of skin paddles (CPT: 11115 x 2 with 50 modifier) 2) Fat grafting to the left breast, 80 cc, fat grafting to the right breast, 80 cc (CPT: 82940 and 46612 x 3 units) 3) Excision of hypertrophic abdominal scar, 15 x 1 cm (93265) 4) Intermediate closure of abdominal scar excision site, 15 cm (CPT: 45683) 5) Kenalog injection, umbilicus hypertrophic scar Current encounter, 19 August 2024: Doing well overall. No fevers chills or drainage. Happy with results thus far. Objective Details: Female protection mgr present for my exam Breasts are soft, no signs of fat necrosis. Incisions are clean dry and intact with Prineo tape in place. Appropriate swelling of the abdomen and thighs after liposuction. Steri-Strips in place with no drainage. Lower extremities: No swelling/no calf swelling Coding Level of Care Code Global Post Op Diagnoses History of reconstruction of both breasts Z98.890 [facility] Medical History Deformity of reconstructed breast GERD [...] Frequent headaches Allergies Surgical History History of breast implant removal Hx of breast reconstruction History of prophylactic [...] reconstruction of both breasts: Status: Acute Plan: Expected course postoperatively Follow-up in 1 week for Prolene suture removal and r (more content not included)... Normal [facility] H AND P Exam - Surgicalon H&P Exam - Surgical [facility] Medical Records Department [address] [place] [address] H P Exam - Surgical 08/17/24 0635 MR#: [id number] Acct: [id number] Name: IRENE LOPEZ Rep #: [id number] : 1975 48 From: Marlon Allen MD PCP: Dr. Amanda Osborne MD Status:[facility] Location: [place] [address] HPI - General HPI Narrative IRENE LOPEZ is a 48 F who presents for breast reconstruction revision (revision of MICHELLE flap from Mar 2024). Current Encounter (DATE OF SURGERY H P UPDATE): I saw and examined the patient this morning in pre- operative holding. We discussed risks and benefits of today's surgery and they would like to proceed. NO CHANGE in health history since last seen and evaluated. Ready to proceed with surgery. Of note, patient declining IV in left upper extremity after blown IV in the dorsal left hand (and having persistent intermittent CT symptoms). Bracing has helped, but CT persisting. [facility] Medical History Deformity of reconstructed breast GERD [...] PO Q12H PRN PRN Migraine 03/24/24 History Headache omeprazole 40 mg capsule,delayed 40 mg PO DAILY gerd 03/28/2208/17 History release sumatriptan succinate 100 mg tablet 100 mg PO PRN PRN MIGRAINE 03/16 06/05 Unknown History valacyclovir 500 mg tablet 500 mg PO DAILY PRN cold sores 03/30/24 06:30 History ondansetron 4 mg disintegrating 4 mg PO Q8H PRN nausea and 5 Unknown Rx tablet vomiting #10 tabs Allergy/AdvReac Type Severity Reaction Status Date / Time Penicillins (PCN) Allergy Hives, RASH Verified 08/17/24 06:28 Family History Grandmother Breast cancer Aunt Breast cancer Father Diabetes Surgical History History of breast implant removal Hx of breast reconstruction History of prophylactic [...] Needed Vital Signs Vital Signs Vital Signs: 08/17/24 06:29 08/17/24 06:29 Temperature 98.2 F Temperature Source Temporal Pulse Rate 75 Respiratory Rate 17 Respiratory Pattern Normal Blood Pressure 124/65 H Blood Pressure Mean 84 Blood Pressure Source Monitor Blood Pressure Position Semi-Fowlers Blood Pressure Location Right Arm Pulse Ox 95 Oxygen Delivery Method Room Air Weight Weight: 178 lb 9.191 oz Body Mass Index (BMI) 29.7 Physical Exam Narrative Female protection mgr present for my exam Chest: Incisions and right upper pole breast wound have healed. Skin paddle is warm and well- perfused. Abdomen: Hypertrophic periumbilical scar and hypertrophic central abdominal scar, but all surgical sites have healed. Excess subcutaneous adiposity for fat grafting. No palpable hernias/defects or bulges at this time on my exam today (palpated abdominal wall thoroughly with patient in the supine position). Extremity Extremity Narrative: Left Hand Positive Tinel Positive Durkens Negative Phalen 5+ ABP 5/5 aboriginal ceremonial celebrant strength Assessment Plan Assessment/Plan (1) History of reconstruction of both breasts: PLAN: INTERVAL H P PLAN, DATE OF SURGERY: We will proceed with surgery today. Patient marked (more content not included)... Normal [facility] MR/POSTOP.ANEon 08-17-2024 MR/POSTOP.[facility] Medical Records Department [address] [place] [address] Anesthesia Postop Eval I 08/17/24 1120 MR#: [id number] Acct: [id number] Name: IRENE LOPEZ Rep #: [id number] : 1975 48 From: Maisha Corea CRNA PCP: Dr. Amanda Osborne MD Status:REG SD Y Race: C Location: [place] [address] Anesthesia: Postop Eval I Current Vital Signs Temperature: 97.5 F Pulse Rate: 76 Blood Pressure: 103/51 Respiratory Rate: 16 Pulse Ox: 95 Oxygen Delivery Method: Nasal Cannula Oxygen Flow Rate (L/min): 3 Assessment Airway patent: Yes Spontaneous unlabored respirations: Yes Mental status: Awake and Calm nausea: No Vomiting: No Anesthesia Complication: No Fluid Hydration Crystalloid volume administer (ml): 1,700 Total IV fluid infused: 1,700 Progress Note Anesthesia document: Postop Eval 1 completed: Yes 08/17/24 112 Date Maisha Corea CRNA Cosigner Signature: Date CC: Signed Normal [facility] MR/[id number] 08-17-2024 MR/POSTOPAN2 [facility] Medical Records Department [address] [place] [address] Anesthesia Postop Eval II 08/17/24 1151 MR#: [id number] Acct: [id number] Name: IRENE LOPEZ Rep #: [id number] : 1975 48 From: Kayla Peres BINDERY CHIEF PCP: Dr. Amanda Osborne MD Status:REG [facility] [place] Race: C Location: [place] [address] Anesthesia Postop Eval I Sum Postop Eval Completion status Anesthesia document: Postop Eval 1 completed: Yes Anesthesia Postop Eval I Summary Anesthesia Postop Eval I Summary: Anesthesia Postop Eval I: Assessment Summary Airway patent Yes 08/17/24 11:22 BINDERY CHIEF.GDOTT Spontaneous unlabored Yes 08/17/24 11:22 BINDERY CHIEF.GDOTT respirations Mental status Awake,Calm 08/17/24 11:22 BINDERY CHIEF.GDOTT nausea No 08/17/24 11:22 BINDERY CHIEF.GDOTT Vomiting No 08/17/24 11:22 BINDERY CHIEF.GDOTT Anesthesia Postop Eval I: Fluid Summary Crystalloid volume administer 1,700 08/17/24 11:22 BINDERY CHIEF.GDOTT (ml) Colloids volume administered ( ml) Blood Product volume administered (ml) Total IV fluid infused 1,700 08/17/24 11:22 BINDERY CHIEF.GDOTT Anesthesia Postop Eval I: Summary Notes Anesthesia Complication No 08/17/24 11:22 BINDERY CHIEF.GDOTT Anesthesia Complication Comment: Post-operative progress note Anesthesia: Postop Eval II Evaluation Mental status: Asleep Pain Level: 3 nausea: No Vomiting: No 08/17/24 1151 Date Kayla Peres BINDERY CHIEF Cosigner Signature: Date CC: Signed Normal [facility] Operative Reporton 5 Operative Report [facility] Medical Records Department [address] [place] [address] Operative Report 08/17/24 1558 MR#: [id number] Acct: [id number] Name: IRENE LOPEZ Rep #: [id number] : 1975 48 From: Marlon Allen MD PCP: Dr. Amanda Osborne MD Status:[facility] [place] [facility] [place] Report (Standard) Operative Information Date of Procedure: 08/10/24 Pre-Operative Diagnosis: S/p breast reconstruction with bilateral MICHELLE flaps Post-Operative Diagnosis: Same Surgery/Procedure Performed: 1) Bilateral breast reconstruction revision, including removal of skin paddles (CPT: 66523 x 2 with 50 modifier) 2) Fat grafting to the left breast, 80 cc, fat grafting to the right breast, 80 cc (CPT: 21978 and 41918 x 3 units) 3) Excision of hypertrophic abdominal scar, 15 x 1 cm (27539) 4) Intermediate closure of abdominal scar excision site, 15 cm (CPT: 23830) 5) Kenalog injection, umbilicus hypertrophic scar community reinvestment act officer: Yes Welder Operator: Mirza Lanza Tasks completed by first dyer: Closing and Retracting Type of Anesthesia: General/Supplemental (1500 cc of tumescent solution (tumescent solution was 1 mg of epinephrine and 50 cc of 1% lidocaine and 1 L of lactated Ringer's solution) ) RN Documented Start/Stop Times: Operation Date: 08/17/24 07:30 Case Time Into Pre-Op 08/17/24 06:06 Out of Pre-Op 08/17/24 07:36 Anesthesia Start 08/17/24 07:37 Into Room 08/17/24 07:37 Procedure Start 08/17/24 07:59 Procedure End 08/17/24 11:03 Anesthesia End 08/17/24 11:15 Out of Room 08/17/24 11:15 Into Recovery 08/17/24 11:18 Into Phase II Recovery 08/17/24 13:09 Out of Recovery 08/17/24 13:09 Out of Phase II 08/17/24 15:15 Procedure Start Time: 07:59 Procedure Stop Time: 11:03 Select all DRAINS/GRAFTS/IMPLANTS that apply: None Estimated Blood Loss: 20 cc Specimen collected: No Description of surgery: Indications: Irene Lopez is a delightful 48-year-old female who underwent bilateral MICHELLE flap reconstruction in March 2024. This was complicated by periumbilical and central abdominal delayed wound healing as well as a right upper pole breast deformity with delayed wound healing. She has since healed and presents today for reconstruction revision. I talked her about the risks, benefits, and alternatives to reconstruction revision. I marked her in preoperative holding and we discussed removal of the MICHELLE flap skin paddles, as well as the various liposuction donor sites for today's fat grafting. I also talked to her about removal of the right upper pole scar from the right upper pole breast wound. Of note, patient had previous complication of nipple necrosis and partial nipple loss during her attempted implant-based reconstruction, and she does not desire any nipple reconstruction at this time and would rather obtain a tattoo. Procedure details: Patient was correctly identified in preoperative holding and taken back to the operating room where she was administered general anesthesia. She was prepped and draped in sterile fashion and all proper timeouts were performed. Care was taken to pad all bony prominences and protect all pressure points and peripheral nerves. A safety strap was added so that she could sit up during surgery for evaluation of the breast. A 15 blade scalpel was used to excise the abdominal skin paddles bilaterally from the lower pole of the breasts, with Bovie electrocautery used to excise the skin paddles full-thickness. In the plane of the MICHELLE flap (keeping the mastectomy flaps up), dissection was carried out several centimeters superiorly on the bilateral breasts so as to undermine the mastectomy flap and advance it into position near the IMF incision. Hemostasis was obtained with Bovie electrocautery and the wounds were irrigated with copious amounts of normal saline. The patient was then sat up and we examined the breasts , and the decision was made to close the mastectomy flaps over the resected skin paddle region without any further manipulation of the breast lower pole incision at this time so as to prevent undue tension. The mastectomy flaps were then stapled into place, and areas of fat deficiency were then further identified on the breasts. Patient was sat back down and the breast was were closed with 3-0 Monocryl deep dermal sutures followed by 3-0 Monocryl running subcuticular sutures. The upper pole scar on the right side was excised full-thickness with a 15 blade scalpel and sutured with 3-0 Monocryl deep dermals followed by running subcuticular 3-0 Monocryl. Attention was then turned to the abdominal scar. 15 blade scalpel was used to excise the hypertrophic central abdominal scar full-thickness to the underlying subcutaneous tissue for a total excision of 15 x 1 cm. Hemostasis was obtained with Bovie electrocautery, and the w (more content not included)... Normal [facility] Plastic Surgery Visit Report on 07-28-2024 Plastic Surgery Visit Report [facility] Plastic Reconstructive Surgery [address], [address] [place], [place] [address] OFFICE VISIT Date of Service: 07/28/24 MR#: [id number] Acct: [id number] Name: IRENE LOPEZ Rep #: [id number] : 1975 Provider: Dr. Marlon Allen MD Age/Sex: 48/F Location: [facility] Status: Signed Intake Vital Signs 05/16/24 10:22 [...] follow up, wound looks great. Subjective Details: BOB Lopez is a 47-year-old female that presents [...] breast reconstruction with removal of saline tissue croze cutter helper with replacement cohesive gel implant (630 ml) [...] including the following: (1) mastectomy with tissue croze cutter helper placement, (2) explantation of the tissue expanders from infection, (3) placement of new tissue expanders, (4)exchange for permanent implants. 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 She is overall healthy. She does not [...] and acellular dermal matrix with capsulectomy (CPT 42148) 2. Removal of left partial submuscular breast implant and acellular dermal matrix with ca (more content not included)... Normal [facility] Plastic Surgery Visit Report on 07-07-2024 Plastic Surgery Visit Report [facility]astic [facility] [address], [address] [place] [address] OFFICE VISIT Date of Service: 07/07/24 MR#: [id number] Acct: [id number] Name: IRENE LOPEZ Rep #: [id number] : 1975 Provider: Dr. Marlon Allen MD Age/Sex: 48/F Location: [facility] Status: Signed Intake Vital Signs 05/16/24 10:22 [...] As Needed HPI FOLLOW UP Details: BOB Lopez is a 47-year-old female that presents [...] breast reconstruction with removal of saline tissue croze cutter helper with replacement cohesive gel implant (630 ml) and placement of MTF FlexHD acellular dermal matrix graft, (Pliable Shaped Perforate (more content not included)... Normal [facility] Wound Ctr History AND Physic damien 05-16-2024 Wound Ctr History & Physical [facility] [address] [place] [address] H P Exam - Wound Care 05/16/24 1320 MR#: [id number] Acct: [id number] Name: IRENE LOPEZ Rep #: [id number] : 1975 48 From: Marlon Allen MD PCP: Dr. Amanda Osborne MD Status:REG RCR Location: History of Present Illness Date of Service: 05/16/24 History of Wound: Patient underwent MICHELLE flaps for bilateral breast reconstruction on 31 [...] Doing well with wound care. [facility] Medical History Deformity of reconstructed breast GERD [...] Layer Expos (more content not included)... Normal [facility] Plastic Surgery Visit Report on 05-10-2024 Plastic Surgery Visit Report [facility]astic [facility] [address] [facility], [address] [place] [address] OFFICE VISIT Date of Service: 05/10/24 MR#: [id number] Acct: [id number] Name: IRENE LOPEZ Rep #: [id number] : 1975 Provider: FLETCHER vázquez Age/Sex: 48/F Location: [facility] Status: Signed I have personally performed a [...] of prophylactic mastectomy of both breasts Z90.13 [facility] Medical History Deformity of reconstructed breast [...] Needed Assessment (more content not included)... Normal [facility] Plastic Surgery Visit Report on 05-06-2024 Plastic Surgery Visit Report [facility]astic [facility] [address], [address] [place] [address] OFFICE VISIT Date of Service: 05/06/24 MR#: [id number] Acct: [id number] Name: IRENE LOPEZ Rep #: [id number] : 1975 Provider: Dr. Marlon Allen MD Age/Sex: 48/F Location: [facility] Status: Signed with Addenda ADDENDUM [...] bracing at night. Objective Details: CHEST: Female protection mgr present for my exam Right upper pole [...] necrosis (segmental) of breast N64.1 [facility] Medical History Deformity of reconstructed breast GERD [...] my roberta (more content not included)... Normal [facility] Plastic Surgery Visit Report on 05-02-2024 Plastic Surgery Visit Report [facility]astic [facility] [address], [address] [place] [address] OFFICE VISIT Date of Service: 05/03/24 MR#: [id number] Acct: [id number] Name: IRENE LOPEZ Rep #: [id number] : 1975 Provider: Dr. Marlon Allen MD Age/Sex: 48/F Location: [facility] Status: Signed with Addenda ADDENDUM by Dr. [...] today in clinic. Objective Details: CHEST: Female protection mgr present for my exam Right upper pole [...] necrosis (segmental) of breast N64.1 [facility] Medical History Deformity of reconstructed breast GERD [...] Social Histo (more content not included)... Normal [facility] Plastic Surgery Visit Report on 04-26-2024 Plastic Surgery Visit Report [facility]astic [facility] Surgery [address] [facility] [facility], [address] [place] [address] OFFICE VISIT Date of Service: 04/26/24 MR#: [id number] Acct: [id number] Name: IRENE LOPEZ Rep #: [id number] : 1975 Provider: FLETCHER vázquez Age/Sex: 48/F Location: [facility] Status: Signed I have personally performed a [...] reconstruction of both breasts Z98.890 [facility] Medical History Deformity of reconstructed breast GERD [...] Breast c (more content not included)... Normal [facility] Plastic Surgery Visit Report on 04-19-2024 Plastic Surgery Visit Report [facility] [address] [place] [address] OFFICE VISIT Date of Service: 04/19/24 MR#: [id number] Acct: [id number] Name: IRENE LOPEZ Rep #: [id number] : 1975 Provider: FLETCHER vázquez Age/Sex: 48/F Location: [facility] Status: Signed Pt seen evaluated w/UDAY. I [...] mg PO TID 5 days #15 caps 01/1 9/25 02/04/25 Rx (Neurontin) ondansetron 4 mg disintegrating 4 [...] reconstruction of both breasts Z98.890 [facility] Medical History Deformity of reconstructed breast GERD (gastroeso (more content not included)... Normal [facility] Plastic Surgery Visit Report on 04-11-2024 Plastic Surgery Visit Report [facility]astic [facility] Surgery [address], [address] [place] [address] OFFICE VISIT Date of Service: 04/11/24 MR#: [id number] Acct: [id number] Name: IRENE LOPEZ Rep #: [id number] : 1975 Provider: FLETCHER vázquez Age/Sex: 48/F [...] in her left hand has impacted her aboriginal ceremonial celebrant strength. Objective Details: Breast incisions dry and [...] reconstruction of both breasts Z98.890 [facility] Medical History (Reviewed 04/12/24 @ 10:06 by Rachel Beard SENIOR PHARMACY TECHNICIAN, SENIOR PHARMACY TECHNICIAN-C) Deformity of reconstructed breast GERD (gastroesophageal reflux [...] Status po (more content not included)... Normal [facility] Plastic Surgery Visit Report on 04-07-2024 Plastic Surgery Visit Report [facility]astic [facility] [address], [address] [place] [address] OFFICE VISIT Date of Service: 04/07/24 MR#: [id number] Acct: [id number] Name: IRENE LOPEZ Rep #: [id number] : 1975 Provider: Dr. Marlon Allen MD Age/Sex: 48/F Location: [facility] Status: Signed with Addenda ADDENDUM [...] well post op day 7 from bilateral MICHELLE. Took one roxicodone last night, but otherwise minimal pain. She is walking. No SOB or lower extremity swelling. Has been compliant with SSD dressings to the breast flap incisions and the umbilicus. Objective Details: CHEST: Female protection mgr present for my exam Flap skin paddles are warm and well perfused. No congestion. Good Doppler signals bilaterally over the paddle. There is some slight reactive erythema/pink skin on the medial aspect of the left flap and on the [place] mastectomy flap skin in the same location, but no signs of congestion and no induration. Breasts are soft bilaterally. Drains SS. Abdomen: Drains SS. Incision c/d/i underneath Prineo. Umbilicus with some dusky skin/eschar forming. Coding Level of Care Code Global Post Op Diagnoses History of reconstruction of both breasts Z98.890 [facility] Medical History Deformity of reconstructed breast GERD [...] reconstructed breast (more content not included)... Normal [facility] Abdomen Single View (Portabl e)on 04-01-2024 Abdomen Single View (Portable) [facility] Imaging Services [address] [place] [id number] Abdomen Single View (Portable) MR#: [id number] Acct: [id number] Name: IRENE LOPEZ Rep #: [id number] : 1975 F 48 From: Stanley lyons MD PCP: Dr. Amanda Osborne MD Status: ADM IN Study: Abdomen Single View (Portable) Date of Exam: 0 04/01/24 Exam# [id number] Ordering Dr: Rachel Beard SENIOR PHARMACY TECHNICIAN SENIOR PHARMACY TECHNICIAN-C [id number] STUDY: X-RAY - ABDOMEN/PELVIS REASON FOR EXAM: [...] Signed: Stanley Sharp MD at 15:55 EST , CC: FLETCHER Beard; Dr. Amanda Osborne MD Glove Machine Operator: Signed Normal [facility] Absolute lymphocyte countOrd ered By: Marlon Allen on 04-01-2024 Lymphocytes Auto (Unsp spec) [#/Vol] 1.75 10*3/uL 0.83-4.51 [facility] Absolute neutrophil countOrd ered By: Marlon Allen on 04-01-2024 Neutrophils (Bld) [#/Vol] 10.0 10*3/uL High 2.0-7.7 [facility] Automated lymphocyte count a s percentage of total leukocytesOrdered By: Marlon Allen on 04-01-2024 Lymphocytes/100 WBC Auto (Unsp spec) 13.5 % Low 19-41 [facility] Basic Metabolic Profile (BMP )on 04-01-2024 BUN/CRE 12.1 RATIO Normal 10-20 [facility] Comment on above: Performed By: #### L 100.0100, L500.2500 ####[facility] [address] [place], [address] CA,Total 8.1 mg/dL Low 8.5-10.1 [facility] Comment on above: Performed By: #### L 100.0100, L500.2500 ####[facility] [address] [place], [address] Chloride [Moles/Vol] 107 mmol/L Normal 98-107 [facility] Comment on above: Performed By: #### L 100.0100, L500.2500 ####[facility] [address] [place], [address] CO2 [Moles/Vol] 26.0 mmol/L Normal 21.0-32.0 [facility] Comment on above: Performed By: #### L 100.0100, L500.2500 ####[facility] [address] [place], [address] Creatinine [Mass/Vol] 0.74 mg/dL Normal 0.55-1.02 [facility] Comment on above: Result Comment: The validity of the calculated GFR GFRAA in patients over 70 years has not been determined. Clinical correlation is essential. Performed By: #### L 100.0100, L500.2500 ####[facility] [address] [place], [address] ECRCL 99.13 ml/min Normal [facility] Comment on above: Performed By: #### L 100.0100, L500.2500 ####[facility] [address] [place], [address] EST GFR - AA 106 mL/min Normal >60 [facility] Comment on above: Result Comment: Afri can Latvian GFR Calc Performed By: #### L 100.0100, L500.2500 ####[facility] [address] [place], [address] GAP 5 Normal 5-15 [facility] Comment on above: Performed By: #### L 100.0100, L500.2500 ####[facility] [address] [place], [address] GFR/1.73 sq M.predicted among non-blacks MDRD (S/P/Bld) [Vol rate/Area] 88 mL/min/{1.73_m2} Normal >60 [facility] Comment on above: Result Comment: Non- GFR Calc Performed By: #### L 100.0100, L500.2500 ####[facility] [address] [place], [address] Glucose [Mass/Vol] 130 mg/dL High 74-106 [facility] Comment on above: Result Comment: Fast ing Glucose result greater than or equal to 126 mg/dL suggests DIABETES MELLITUS per A.D.A. criteria. Performed By: #### L 100.0100, L500.2500 ####[facility] [address] [place], [address] Potassium [Moles/Vol] 4.2 mmol/L Normal 3.5-5.1 [facility] Comment on above: Performed By: #### L 100.0100, L500.2500 ####[facility] [address] [place], [address] Sodium [Moles/Vol] 138 mmol/L Normal 136-145 [facility] Comment on above: Performed By: #### L 100.0100, L500.2500 ####[facility] [address] [place], [address] Urea nitrogen [Mass/Vol] 9 mg/dL Normal 7-18 [facility] Comment on above: Performed By: #### L 100.0100, L500.2500 ####[facility] [address] [place], [address] Basophil percentageOrdered B y: Marlon Allen on 04-01-2024 Basophils/100 WBC (Bld) 0.5 % 0- [facility] Blood urea nitrogen (BUN)/cr eatinine ratioOrdered By: Marlon Allen on 04-01-2024 Urea nitrogen/Creatinine [Mass ratio] 12.1 mg/mg 10- [facility] CBC W/Diff, Automatedon 03-16 Absolute Lymph 1.75 X10 3/uL Normal 0.83-4.51 [facility] Comment on above: Performed By: #### L 100.0100, L500.2500 ####[facility] [address], [address] Absolute Neut 10.0 X10 3/uL High 2.0-7.7 [facility] Comment on above: Performed By: #### L 100.0100, L500.2500 ####[facility] [address] [place], [address] Basophils/100 WBC (Bld) 0.5 % Normal 0-1 [facility] Comment on above: Performed By: #### L 100.0100, L500.2500 ####[facility] [address] [place], [address] Eosinophils/100 WBC (Bld) 0.7 % Normal 0-5 [facility] Comment on above: Performed By: #### L 100.0100, L500.2500 ####[facility] [address] [place], [address] Erythrocyte distribution width (RBC) [Ratio] 12.6 % Normal 11.6-14.6 [facility] Comment on above: Performed By: #### L 100.0100, L500.2500 ####[facility] [address] [place], [address] Hematocrit (Bld) [Volume fraction] 33.8 % Low 37-47 [facility] Comment on above: Performed By: #### L 100.0100, L500.2500 ####[facility] [address] [place], [address] Hemoglobin (Bld) [Mass/Vol] 11.2 g/dL Low 12.0-15.0 [facility] Comment on above: Performed By: #### L 100.0100, L500.2500 ####[facility] [address] [place], [address] IG% 0.600 Normal 0.0-0.9 [facility] Comment on above: Result Comment: IG% - Immature Granulocytes (promyelocytes, myelocytes and metamyelocytes) > 1% indicates that a LEFT SHIFT is Present. Performed By: #### L 100.0100, L500.2500 ####[facility] [address] [place], [address] Lymphocytes/100 WBC (Bld) 13.5 % Low 19-41 [facility] Comment on above: Performed By: #### L 100.0100, L500.2500 ####[facility] [address] [place], [address] MCH (RBC) [Entitic mass] 32.4 pg High 27.0-32.0 [facility] Comment on above: Performed By: #### L 100.0100, L500.2500 ####[facility] [address] [place], [address] MCHC (RBC) [Mass/Vol] 33.1 g/dL Normal 32-36 [facility] Comment on above: Performed By: #### L 100.0100, L500.2500 ####[facility] [address] [place], [address] MCV (RBC) [Entitic vol] 97.7 fL Normal 81-99 [facility] Comment on above: Performed By: #### L 100.0100, L500.2500 ####[facility] [address] [place], [address] Monocytes/100 WBC (Bld) 7.5 % Normal 0-10 [facility] Comment on above: Performed By: #### L 100.0100, L500.2500 ####[facility] [address] [place], [address] Neutrophils/100 WBC (Bld) 77.2 % High 47-70 [facility] Comment on above: Performed By: #### L 100.0100, L500.2500 ####[facility] [address] [place], [address] Nucleated RBC (Bld) [#/Vol] 0 10*3/uL Normal 0-5 [facility] Comment on above: Performed By: #### L 100.0100, L500.2500 ####[facility] [address] [place], [address] Platelet mean volume (Bld) [Entitic vol] 11.1 fL Normal 6.2-12.0 [facility] Comment on above: Performed By: #### L 100.0100, L500.2500 ####[facility] [address] [place], [address] Platelets (Bld) [#/Vol] 188 10*3/uL Normal 150-450 [facility] Comment on above: Performed By: #### L 100.0100, L500.2500 ####[facility] [address] [place], [address] RBC (Bld) [#/Vol] 3.46 10*6/uL Low 4.2-5.4 [facility] Comment on above: Performed By: #### L 100.0100, L500.2500 ####[facility] [address] [place], [address] RDW SD 44.9 fl High 35.1-43.9 [facility] Comment on above: Performed By: #### L 100.0100, L500.2500 ####[facility] [address] [place], [address] WBC (Bld) [#/Vol] 13.0 10*3/uL High 4.4-11.0 [facility] Comment on above: Performed By: #### L 100.0100, L500.2500 ####[facility] [address] [place], [address] Carbon dioxide measurementOr dered By: Marlon Allen on 04-01-2024 CO2 [Moles/Vol] 26.0 mmol/L 21.0-32.0 [facility] Chest 1 View (Portable)on Chest 1 View (Portable) [facility] Imaging Services [address] [place] [address] Chest 1 View (Portable) MR#: [id number] Acct: [id number] Name: IRENE LOPEZ Rep #: [id number] : 1975 F 48 From: Stanley lyons MD PCP: Dr. Amanda Osborne MD Status: ADM IN Study: Chest 1 View (Portable) Date of Exam: 04/01/24 Exam# [id number] Ordering Dr: Rachel Beard NP SENIOR PHARMACY TECHNICIAN-C [id number] STUDY: X-RAY CHEST REASON FOR EXAM: Female, [...] CC: FLETCHER Beard; Dr. Amanda Osborne MD Glove Machine Operator: Signed Normal [facility] Chloride measurementOrdered By: Marlon Allen on 04-01-2024 Chloride [Moles/Vol] 107 mmol/L 98-107 [facility] Eosinophil percentageOrdered By: Marlon Allen on 04-01-2024 Eosinophils/100 WBC (Bld) 0.7 % 0-5 [facility] Erythrocyte distribution wid th ratioOrdered By: Marlon Allen on 04-01-2024 Erythrocyte distribution width (RBC) [Ratio] 12.6 % 11.6-14.6 [facility] Erythrocyte distribution wid th standard deviationOrdered By: Marlon Allen on 04-01-2024 Erythrocyte distribution width (RBC) [Entitic vol] 44.9 fL High 35.1-43.9 [facility] Erythrocyte distribution width (RBC) [Ratio] 44.9 fl High 35.1-43.9 [facility] Estimated glomerular filtrat ion rate (GFR) AmericanOrdered By: Marlon Allen on 04-01-2024 Estimated GFR (MDRD) Amer 106 mL/min >60 [facility] Comment on above: GFR Calc Estimation of creatinine matias aranceOrdered By: Marlon Allen on 04-01-2024 Estimated Creatinine Clearance Calc 99.13 ml/min [facility] Glomerular filtration rate ( GFR) estimationOrdered By: Marlon Allen on 04-01-2024 Estimated GFR (MDRD) Non-Af Amer 88 mL/min >60 [facility] Comment on above: Non- GFR Calc GFR/1.73 sq M.predicted among non-blacks MDRD (S/P/Bld) [Vol rate/Area] 88 mL/min/{1.73_m2} >60 [facility] Comment on above: Non- GFR Calc Glucose measurementOrdered B y: Marlon Allen on 04-01-2024 Glucose [Mass/Vol] 130 mg/dL High 74-106 [facility] Comment on above: Fasting Glucose resu lt greater than or equal to 126 mg/dL suggests DIABETES MELLITUS per A.D.A. criteria. Hematocrit Auto (Bld) [Volum e fraction]Ordered By: Marlon Allen on 04-01-2024 Hematocrit (Bld) [Volume fraction] 33.8 % Low 37-47 [facility] Hemoglobin measurementOrdere d By: Marlon Allen on 04-01-2024 Hemoglobin (Bld) [Mass/Vol] 11.2 g/dL Low 12.0-15.0 [facility] Immature granulocytes/100 WB C Auto (Bld)Ordered By: Marlon Allen on 04-01-2024 Immature granulocytes/100 WBC (Bld) 0.600 % 0.0-0.9 [facility] Comment on above: IG% - Immature Granu locytes (promyelocytes, myelocytes and metamyelocytes) > 1% indicates that a LEFT SHIFT is Present. Lymphocytes Auto (Unsp spec) [#/Vol]Ordered By: Marlon Allen on 04-01-2024 Lymphocytes (Bld) [#/Vol] 1.75 10*3/uL 0.83-4.51 [facility] Lymphocytes/100 WBC Auto (Un sp spec)Ordered By: Marlon Allen on 04-01-2024 Lymphocytes/100 WBC (Bld) 13.5 % Low 19-41 [facility] MCV (mean corpuscular volume ) determinationOrdered By: Marlon Allen on 04-01-2024 MCV (RBC) [Entitic vol] 97.7 fL 81-99 [facility] Mean corpuscular hemoglobin (MCH) determinationOrdered By: Marlon Allen on 04-01-2024 MCH (RBC) [Entitic mass] 32.4 pg High 27.0-32.0 [facility] Mean corpuscular hemoglobin concentration (MCHC) determinationOrdered By: Marlon Allen on 04-01-2024 MCHC (RBC) [Mass/Vol] 33.1 g/dL 32-36 [facility] Mean platelet volume determi nationOrdered By: Marlon Allen on 04-01-2024 Platelet mean volume (Bld) [Entitic vol] 11.1 fL 6.2-12.0 [facility] Monocyte percentageOrdered B y: Marlon Allen on 04-01-2024 Monocytes/100 WBC (Bld) 7.5 % 0-10 [facility] Neutrophil percentageOrdered By: Marlon Allen on 04-01-2024 Neutrophils/100 WBC (Bld) 77.2 % High 47-70 [facility] Nucleated red blood cell per centageOrdered By: Marlon Allen on 04-01-2024 Nucleated RBC/100 WBC (Bld) [Ratio] 0 % 0-5 [facility] Operative Reporton 5 Operative Report [facility] Medical Records Department [address] [place] [address] Operative Report 04/01/24 1020 MR#: [id number] Acct: [id number] Name: IRENE LOPEZ Rep #: [id number] : 1975 48 From: Marlon Allen MD PCP: Dr. Amanda Osborne MD Status:ADM IN Location: ICU ICU03-1 Operative Report (Standard) Operative Information Date of Procedure: 03/31/24 Pre-Operative Diagnosis: History of breast reconstruction with capsular contracture/pain Post-Operative Diagnosis: Same Surgery/Procedure Performed: 1. Removal of right partial submuscular breast implant and acellular dermal matrix with capsulectomy (CPT 64010) 2. Removal of left partial submuscular breast implant and acellular dermal matrix with capsulectomy (CPT 63723 - 48 modifier) 3. Reconstruction of right breast with abdominally-based free tissue transfer via MICHELLE flap with one medial row and one lateral row avionics safety inspector from the left abdomen Couple size 3 mm (CPT: 44985) 4. Reconstruction of left breast with abdominally-based free tissue transfer via MICHELLE flap with two lateral row perforators from the right abdomen Stained Glass Painter size 3 mm (CPT: 28450-03 modifier) 5. Use of fluorescence angiography for assessment of the flaps intra-operatively (using SPY machine), (CPT: 57522) 6. Nerve reconstruction with oxygen allograft and nerve wrap to the third intercostal nerve, left chest, from nerve on the right MICHELLE flap, (CPT: 49536) community reinvestment act officer: Yes Welder Operator: Mirza Lanza Tasks completed by first dyer: Retracting Additional library services assistant?: Yes Additional Center Punch Operator #2: Pamela Berman Tasks completed by library services assistant #2: Retracting Type of Anesthesia: General/Supplemental (20 [...] autologous reconstruction with a deep inferior epigastric avionics safety inspector flap as she reported that she had [...] rib.??? The perichondrium was incised with a [place] elevator and the rib was removed with a rongeur.??? The posterior perich (more content not included)... Normal [facility] Platelet countOrdered By: Margaret Allen on 04-01-2024 Platelets (Bld) [#/Vol] 188 10*3/uL 150-450 [facility] Potassium measurementOrdered By: Marlon Allen on 04-01-2024 Potassium [Moles/Vol] 4.2 mmol/L 3.5-5.1 [facility] RBC Auto (Bld) [#/Vol]Ordere d By: Marlon Allen on 04-01-2024 RBC (Bld) [#/Vol] 3.46 10*6/uL Low 4.2-5.4 [facility] Serum anion gap measurementO rdered By: Marlon Allen on 04-01-2024 Anion gap [Moles/Vol] 5 mmol/L 5-15 [facility] Serum or plasma calcium deneen urement (mass/volume)Ordered By: Marlon Allen on 04-01-2024 Calcium [Mass/Vol] 8.1 mg/dL Low 8.5-10.1 [facility] Serum or plasma creatinine m easurement (mass/volume)Ordered By: Marlon Allen on 04-01-2024 Creatinine [Mass/Vol] 0.74 mg/dL 0.55-1.02 [facility] Comment on above: The validity of the calculated GFR & GFRAA in patients over 70 years has not been determined. Clinical correlation is essential. Serum or plasma urea nitroge n measurement (mass/volume)Ordered By: Marlon Allen on 04-01-2024 Urea nitrogen [Mass/Vol] 9 mg/dL 7-18 [facility] Sodium levelOrdered By: Candelario Allen on 04-01-2024 Sodium [Moles/Vol] 138 mmol/L 136-145 [facility] White blood cell (WBC) count Ordered By: Marlon Allen on 04-01-2024 WBC (Bld) [#/Vol] 13.0 10*3/uL High 4.4-11.0 [facility] 12 Lead EKGon 03-31-2024 12 Lead EKG [facility] Cardiovascular Services [address] [place] [address] 12 Lead EKG 03/31/24 0553 MR#: [id number] Acct: [id number] Name: IRENE LOPEZ Rep #: [id number] : 1975 48 From: Sarah Leyva MD [...] was found Confirmed by GORDON ROBERTO, YAHIR ([id number]), photographic editor TRUDY YATES ([id number]) on 04/11/2024 2:20:42 PM Referred By: Marlon Allen Confirmed By: YAHIR LEYVA MD 04/11/24 1420 Date Sarah Leyva MD CC: Dr. Roberto Guan MD; Dr. Amanda Osborne MD; Dr. Marlon Allen MD Signed Normal [facility] Bedside Glucoseon 03-31-2024 FINGERSTICK GLU 109 mg/dL High 74-106 [facility] Comment on above: Result Comment: MT GEMENT OF PATIENT CARE PER NURSING PROTOCOL Performed By: #### L 501.080 #### [facility] Laboratory [address] [facility] [place], [address] [facility] at [facility] deOrdered By: Marlon Allen on 03-31-2024 Bedside Glucose (Misc Panel) 109 mg/dL High [address] [facility] Comment on above: MANAGEMENT OF PATIEN T CARE PER NURSING PROTOCOL Glucose [Mass/Vol] 109 mg/dL High [address] [facility] Comment on above: MANAGEMENT OF PATIEN T CARE PER NURSING PROTOCOL H AND P Exam - Surgicalon H&P Exam - Surgical [facility] Medical Records Department [address] [place] [address] H P Exam - Surgical 03/31/24 0709 MR#: [id number] Acct: [id number] Name: IRENE LOPEZ Rep #: [id number] : 1975 48 From: Marlon Allen MD PCP: Dr. Amanda Osborne MD Status:ADM IN Location: [address] - General General Date of Admission: 03/31/24 [...] breast reconstruction with removal of saline tissue croze cutter helper with replacement cohesive gel implant (630 ml) [...] including the following: (1) mastectomy with tissue croze cutter helper placement, (2) explantation of the tissue expanders from infection, (3) placement of new tissue expanders, (4)exchange for permanent implants. 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 She is overall healthy. She does not [...] with autologous tissue (continues to want a MICHELLE flap). When I talked to her about implants today (and the option of just doing implant revisions and fat grafting), she said I've already had 4 surgeries and I'm not happy with my implants and my reconstruction, I would like to be at least a little happy after all of these surgeries. I've researched the MICHELLE flap since we've talked and I want [...] CHANGE i (more content not included)... Normal [facility] MR/POSTOP.[facility] 03-31-2024 MR/POSTOP.[facility] Medical Records Department [address] [place] [address] Anesthesia Postop Eval I 03/31/242005 MR#: [id number] Acct: [id number] Name: IRENE LOPEZ Rep #: [id number] : 1975 48 From: Maisha Corea PCP: [...] Eval 1 completed: Yes 03/31/242030 Date Maisha Mohrigner Signature: Date CC: Signed Normal [facility] MR/[id number] 03-31-2024 [facility] Medical Records Department [address] [place] [address] Anesthesia Postop Eval II 03/31/242038 MR#: [id number] Acct: [id number] Name: IRENE LOPEZ Rep #: [id number] : 1975 48 From: Roberto Guan MD PCP: Dr. Amanda Osborne MD Status:ADM IN Y Race: C Location: ICU ICU03- Anesthesia Postop Eval I Sum Postop Eval Completion status Anesthesia document: Postop Eval 1 completed: Yes Anesthesia Postop Eval I Summary Anesthesia Postop Eval I Summary: Anesthesia Postop Eval I: Assessment Summary Airway patent Yes 03/31/24 20:24 BINDERY CHIEF.GDOTT Spontaneous unlabored Yes 03/31/24 20:24 BINDERY CHIEF.GDOTT respirations Mental status Awake,Calm 03/31/24 20:24 BINDERY CHIEF.GDOTT nausea No 03/31/24 20:24 BINDERY CHIEF.GDOTT Vomiting No 03/31/24 20:24 BINDERY CHIEF.GDOTT Anesthesia Postop Eval I: Fluid Summary Crystalloid volume administer 7,280 03/31/24 20:24 BINDERY CHIEF.GDOTT (ml) Colloids volume administered ( ml) Blood Product volume administered (ml) Total IV fluid infused 7,280 03/31/24 20:24 BINDERY CHIEF.GDOTT Anesthesia Postop Eval I: Summary Notes Anesthesia Complication No 03/31/24 20:24 BINDERY CHIEF.GDOTT Anesthesia Complication Comment: Post-operative progress note Patient extubated. 03/31/24 20:31 AALIYAH Spontaneously breathing. Transport to ICU with oxygen and monitors for close monitoring of the perfusion in the flap. Anesthesia: Postop Eval II Evaluation Mental status: Awake and Calm Pain Level: 1 nausea: No Vomiting: No Complications Anesthesia Complication: No 03/31/242039 Date Roberto Smiley Signature: Date CC: Signed Normal [facility] Magnesiumon 03-31-2024 Magnesium [Mass/Vol] 2.2 mg/dL Normal 1.6-2.6 [facility] Comment on above: Performed By: #### L 501.5200 #### [facility] Laboratory [address] [place] [address], [id number] Magnesium measurementOrdered By: Roberto Guan on 03-31-2024 Magnesium [Mass/Vol] 2.2 mg/dL 1.6-2.6 [facility] Surgery Specimen Level Randal 03-31-2024 Surgery Specimen Level IV Patient Age/Sex Location Account Attending Physician IRENE LOPEZ 48/F ICU [id number] Dr. Marlon Allen MD Specimen: [id number] Received: 04/01/24-1018 Status: RYLAND Jones Num: [id number] Spec Type: FOREIGN B Subm Dr: Dr. [...] in aggregate 7.5 x 3.5 x 0.5cm. Brazer Induction sections are submitted in one cassette. B. Received in fixative is one container labeled with the patient's name and designated Left implant. The specimen consists of a ovoid gel implant measuring 17cm in diameter and up to 5cm in depth. Implant appears to be intact. Inscription on the implant says Armour [id number] M+D 630cc. The specimen is for gross identification only. C. Received in fixative is one container labeled with the patient's name and designated Right implant. The specimen consists of a ovoid gel implant measuring 17cm in diameter and up to 5cm in depth. Implant appears to be intact. Inscription on the implant says Armour [id number] M+D 630cc. The specimen is for gross [...] in aggregate 7 x 6 x 1.5cm. Brazer Induction sections are submitted in one cassette. 04/01/2024 TC:5 CPT:91726n1, 43624x9 Patient Age/Sex Location Account Attending Physician IRENE LOPZE 48/F ICU [id number] Dr. Marlon Allen MD Signed (signature on file) Dr. Vasyl Spivey MD 04/04/24 1306 Normal [facility] Comment on above: Performed By: #### P SUIV ####[facility] [address] [facility] [place], [place], [address] Type AND Screenon 03-31-2024 ABO and Rh group Nom (Bld) Blood group O Rh(D) positive Normal [facility] Comment on above: Order Comment: S Performed By: #### B TS ####[facility] [address] [place], [place], [address] Plastic Surgery Visit Report on 03-30-2024 Plastic Surgery Visit Report [facility] Plastic Reconstructive Surgery [address] [facility], [address] [place] [address] OFFICE VISIT Date of Service: 03/30/24 MR#: [id number] Acct: [id number] Name: IRENE LOPEZ Rep #: [id number] : 1975 Provider: Dr. Marlon Allen MD Age/Sex: 48/F Location: [facility] Status: Signed with Addenda ADDENDUM by Dr. Marlon Allen MD on 03/30/24 at 1701 Assessment and Plan (No Qualifiers) Assessment and Plan (1) History of reconstruction of both breasts: Status: Acute Plan: Discussed nipples as well. Patient is planning to get tattoos nursing home (current nipples are scarred, insensate, and flat). [...] 13x22 cm (more content not included)... Normal [facility] Basic metabolic 2000 panelon 03-21-2024 Anion gap [Moles/Vol] 13 mmol/L Normal 10-20 [facility] Comment on above: Performed By: #### 2 4321-2 #### JONAH ANDERSON ([id number]) [facility] ([facility]) [address] [place] [address] Calcium [Mass/Vol] 9.8 mg/dL Normal 8.6-10.3 [facility] Comment on above: Performed By: #### 2 4321-2 #### JONAH ANDERSON ([id number]) [facility] ([facility]) [facility] [place] [address] Chloride [Moles/Vol] 102 mmol/L Normal 98-107 [facility] Comment on above: Performed By: #### 2 4321-2 #### JONAH ANDERSON ([id number]) [facility] ([facility]) [address] [place] [address] CO2 [Moles/Vol] 28 mmol/L Normal 21-32 [facility] Comment on above: Performed By: #### 2 4321-2 #### JONAH ANDERSON ([id number]) [facility] [facility] [address] [place] [address] 32491 Creatinine [Mass/Vol] 0.68 mg/dL Normal 0.50-1.05 [facility] Comment on above: Performed By: #### 2 4321-2 #### JONAH ANDERSON ([id number]) [facility] ([facility]) [address] [place] [address] 66937 GFR/1.73 sq M.predicted MDRD (S/P/Bld) [Vol rate/Area] mL/min/{1.73_m2} Normal >60 [facility] Comment on above: Result Comment: Calc ulations of estimated GFR are performed using the 2020 CKD-EPI Study Refit equation without the race variable for the IDMS-Traceable creatinine methods. https://jasn.asnjournals.org/content/early//ASN.20520 11199 Performed By: #### 2 4321-2 #### JONAH ANDERSON ([id number]) [facility] ([facility]) [address] [place] [address] 95492 Glucose [Mass/Vol] 99 mg/dL Normal 74-99 [facility] Comment on above: Performed By: #### 2 4321-2 #### JONAH ANDERSON ([id number]) [facility] ([facility]) [address] [place] [address] 56208 Potassium [Moles/Vol] 4.4 mmol/L Normal 3.5-5.3 [facility] Comment on above: Performed By: #### 2 4321-2 #### JONAH ANDERSON ([id number]) [facility] ([facility]) [address] [place] [address] 48578 Sodium [Moles/Vol] 139 mmol/L Normal 136-145 [facility] Comment on above: Performed By: #### 2 4321-2 #### JONAH ANDERSON ([id number]) [facility] ([facility]) [address] [place] [address] 96348 Urea nitrogen [Mass/Vol] 15 mg/dL Normal 6-23 [facility] Comment on above: Performed By: #### 2 4321-2 #### JONAH ANDERSON ([id number]) [facility] ([facility]) [address] [place] [address] 26269 CBC W Auto Differential pane l (Bld)on 03-21-2024 Basophils (Bld) [#/Vol] 0.06 x10*3/uL Normal 0.00-0.10 [facility] Comment on above: Performed By: #### 5 7021-8 #### JONAH ANDERSON ([id number]) [facility] ([facility]) [address] [place] [address] 22693 Basophils/100 WBC (Bld) 0.7 % Normal 0.0-2.0 [facility] Comment on above: Performed By: #### 5 7021-8 #### JONAH ANDERSON ([id number]) [facility] ([facility]) [address] [place] [address] 78761 Eosinophils (Bld) [#/Vol] 0.36 x10*3/uL Normal 0.00-0.70 [facility] Comment on above: Performed By: #### 5 7021-8 #### JONAH ANDERSON ([id number]) [facility] ([facility]) [address] [place] [address] 71799 Eosinophils/100 WBC (Bld) 4.1 % Normal 0.0-6.0 [facility] Comment on above: Performed By: #### 5 7021-8 #### JONAH ANDERSON ([id number]) [facility] ([facility]) [address] [place] [address] 43756 Erythrocyte distribution width (RBC) [Ratio] 12.0 % Normal 11.5-14.5 [facility] Comment on above: Performed By: #### 5 7021-8 #### JONAH ANDERSON ([id number]) [facility] ([facility]) [address] [place] [address] 50398 Hematocrit (Bld) [Volume fraction] 39.9 % Normal 36.0-46.0 [facility] Comment on above: Performed By: #### 5 7021-8 #### JONAH ANDERSON ([id number]) [facility] ([facility]) [address] [place] [address] 44530 Hemoglobin (Bld) [Mass/Vol] 13.3 g/dL Normal 12.0-16.0 [facility] Comment on above: Performed By: #### 5 7021-8 #### JONAH ANDERSON ([id number]) [facility] ([facility]) [address] [place] [address] 26901 Immature granulocytes (Bld) [#/Vol] 0.06 x10*3/uL Normal 0.00-0.70 [facility] Comment on above: Performed By: #### 5 7021-8 #### JONAH ANDERSON ([id number]) [facility] ([facility]) [address] [place] [address] 48545 Immature granulocytes/100 WBC (Bld) 0.7 % Normal 0.0-0.9 [facility] Comment on above: Result Comment: Erika ture Granulocyte Count (IG) includes promyelocytes, myelocytes and metamyelocytes but does not include bands. Percent differential counts (%) should be interpreted in the context of the absolute cell counts (cells/UL). Performed By: #### 5 7021-8 #### JONAH ANDERSON ([id number]) [facility] ([facility]) [address] [place] [address] 90081 Lymphocytes (Bld) [#/Vol] 2.06 x10*3/uL Normal 1.20-4.80 [facility] Comment on above: Performed By: #### 5 7021-8 #### JONAH ANDERSON ([id number]) [facility] ([facility]) [address] [place] [address] 09197 Lymphocytes/100 WBC (Bld) 23.3 % Normal 13.0-44.0 [facility] Comment on above: Performed By: #### 5 7021-8 #### JONAH ANDERSON ([id number]) [facility] ([facility]) [address] [place] [address] 74417 MCH (RBC) [Entitic mass] 31.9 pg Normal 26.0-34.0 [facility] Comment on above: Performed By: #### 5 7021-8 #### JONAH ANDERSON ([id number]) [facility] ([facility]) [address] [place] [address] 10637 MCHC (RBC) [Mass/Vol] 33.3 g/dL Normal 32.0-36.0 [facility] Comment on above: Performed By: #### 5 7021-8 #### JONAH ANDERSON ([id number]) [facility] ([facility]) [address] [place] [address] 39722 MCV (RBC) [Entitic vol] 96 fL Normal 80-100 [facility] Comment on above: Performed By: #### 5 7021-8 #### JONAH ANDERSON ([id number]) [facility] ([facility]) [address] [place] [address] 85482 Monocytes (Bld) [#/Vol] 0.70 x10*3/uL Normal 0.10-1.00 [facility] Comment on above: Performed By: #### 5 7021-8 #### JONAH ANDERSON ([id number]) [facility] ([facility]) [address] [place] [address] 64830 Monocytes/100 WBC (Bld) 7.9 % Normal 2.0-10.0 [facility] Comment on above: Performed By: #### 5 7021-8 #### JONAH ANDERSON ([id number]) [facility] ([facility]) [address] [place] [address] 90485 Neutrophils (Bld) [#/Vol] 5.60 x10*3/uL Normal 1.20-7.70 [facility] Comment on above: Result Comment: Perc ent differential counts (%) should be interpreted in the context of the absolute cell counts (cells/uL). Performed By: #### 5 7021-8 #### JONAH ANDERSON ([id number]) [facility] ([facility]) [address] [place] [address] 62929 Neutrophils/100 WBC (Bld) 63.3 % Normal 40.0-80.0 [facility] Comment on above: Performed By: #### 5 7021-8 #### JONAH ANDERSON ([id number]) [facility] ([facility]) [address] [place] [address] 03910 Nucleated RBC/100 WBC (Bld) [Ratio] 0.0 /100 WBCs Normal 0.0-0.0 [facility] Comment on above: Performed By: #### 5 7021-8 #### JONAH ANDERSON ([id number]) [facility] ([facility]) [address] [place] [address] 31337 Platelets (Bld) [#/Vol] 201 x10*3/uL Normal 150-450 [facility] Comment on above: Performed By: #### 5 7021-8 #### JOANH ANDERSON ([id number]) [facility] ([facility]) [address] [place] [address] 71086 RBC (Bld) [#/Vol] 4.17 x10*6/uL Normal 4.00-5.20 [facility] Comment on above: Performed By: #### 5 7021-8 #### JONAH ANDERSON ([id number]) [facility] ([facility]) [address] [place] [address] [place] [address] WBC (Bld) [#/Vol] 8.8 x10*3/uL Normal 4.4-11.3 [facility] Comment on above: Performed By: #### 5 7021-8 #### JONAH ANDERSON ([id number]) [facility] ([facility]) [facility] [place] [address] HbA1c (Bld) [Mass fraction]o n 03-21-2024 Average glucose Estimated from glycated hemoglobin (Bld) [Mass/Vol] 111 mg/dL Normal Not Established [facility] Comment on above: Order Comment: Diagn osis of Diabetes-Adults Non-Diabetic: < or = 5.6% Increased risk for developing diabetes: 5.7-6.4% Diagnostic of diabetes: > or = 6.5% Performed By: #### 4 548-4 #### TREVON Marie ([id number]) [facility] ([facility]) [address] [place] [address] Hemoglobin A1c/Hemoglobin.to goran 03-21-2024 HbA1c (Bld) [Mass fraction] 5.5 % Normal See comment [facility] Comment on above: Order Comment: Diagn osis of Diabetes-Adults Non-Diabetic: < or = 5.6% Increased risk for developing diabetes: 5.7-6.4% Diagnostic of diabetes: > or = 6.5% Performed By: #### 4 548-4 #### TREVON Marie ([id number]) [facility] ([facility]) [address] [place] [address] Plastic Surgery Visit Report on 03-03-2024 Plastic Surgery Visit Report [facility] Plastic Reconstructive Surgery [address], [address] [place] [address] OFFICE VISIT Date of Service: 03/03/24 MR#: [id number] Acct: [id number] Name: IRENE LOPEZ Rep #: [id number] : 1975 Provider: Dr. Marlon Allen MD Age/Sex: 48/F Location: [facility] Status: Signed Intake Vital Signs 12/03/23 16:17 12/19/24 15:02 Height 5 ft 6 in 5 [...] 03/28/22 03/03/24 History Nurse's Note: Breast Preop PFSH Medical History Deformity of reconstructed breast [...] breast reconstruction with removal of saline tissue croze cutter helper with replacement cohesive gel implant (630 ml) and placement of MTF FlexHD acellular dermal matrix graft, (Pliable Shaped Perforated, Large, Thick, 13x22 cm, 2 pieces) and revision reconstructed right breast with superior capsulotomy and excision excess mastectomy skin contour deformity laterally and revision asymmetric inframammary fold with internal capsular plication She has concerns about the (more content not included)... Normal [facility] Cervical AND or Vaginal cyto logy studyon 03-01-2024 Cytology Cervical or vaginal smear or scraping study Pathology report.total SEE COMMENT Gynecologic Cytology Case: [id number] Authorizing Provider: Zenaida Silva MD Collected: 03/01/2024 9512 Ordering Location: [facility] Received: 03/01/2024 1542 Office Building First Screen: JUDY Krueger Rescreen: [...] Slide(s) initially screened by JUDY Krueger at [facility] [address] [facility] [id number] QC review performed by JUDY Amin at [facility] [address] [place] [phone] By the signature on this report, the individual or group listed as making the Final Interpretation/Diagnosis certifies that they have reviewed this case. This specimen has been analyzed by the ParchmentPrep Imaging System ([employer] an automated imaging and review system, which assists the laboratory in evaluating cells on ThinPrep Pap tests. Following automated imaging, selected pierce from every slide were reviewed by a brand communications manager and/or pathologist. Cervical cytology is a screening [...] LAB AP PREVIOUS ABNORMAL HISTORY LSIL Normal [facility] CTA Abd/Pelvis W/WO Contrast on 01-04-2024 CTA Abd/Pelvis W/WO Contrast [facility] [address] [place] [address] CTA Abd/Pelvis W/WO Contrast MR#: [id number] Acct: [id number] Name: IRENE LOPEZ Rep #: [id number] : 1975 F 48 From: [facility] PCP: Dr. Amanda Osborne MD Status: REG CLI Study: CTA Abd/Pelvis W/WO Contrast Date of Exam: Exam# [id number] Ordering Dr: Rachel Beard NP SENIOR PHARMACY TECHNICIAN-C [id number] INDICATION: MICHELLE procedure for Abdominal wall perforators EXAMINATION: CTA [...] CC: FLETCHER Beard; Dr. Amanda Osborne MD Glove Machine Operator: Signed Normal [facility] Plastic Surgery Visit Report on 12-17-2023 Plastic Surgery Visit Report [facility] Plastic Reconstructive Surgery [address], [address] [place] [address] OFFICE VISIT Date of Service: 12/17/23 MR#: [id number] Acct: [id number] Name: IRENE LOPEZ Rep #: [id number] : 1975 Provider: Dr. Marlon Allen MD Age/Sex: 47/F Location: [facility] Status: Signed Intake Vital Signs 12/03/23 16:17 [...] excess mastect (more content not included)... Normal [facility] Plastic Surgery Visit Report on 12-03-2023 Plastic Surgery Visit Report [facility] Surgery [address], [address] [place] [id number] OFFICE VISIT Date of Service: 12/03/23 MR#: [id number] Acct: [id number] Name: IRENE LOPEZ Rep #: [id number] : 1975 Provider: Dr. Marlon Allen MD Age/Sex: 47/F Location: [facility] Status: Signed with Addenda ADDENDUM [...] breast reconstruction with removal of saline tissue croze cutter helper with replacement cohesive gel implant (630 ml) [...] right. She (more content not included)... Normal [facility] Basophil percentageOrdered B y: Rachel Beard on 01-23-2023 Chloride [Moles/Vol] 106 mmol/L 98-107 [facility] Glucose [Mass/Vol] 114 mg/dL 74-106 [facility] Comment on above: Fasting Glucose resu lt from 100 to 125 mg/dL suggests IMPAIRED HOMEOSTASIS per A.D.A. criteria. Potassium [Moles/Vol] 4.1 mmol/L 3.5-5.1 [facility] Sodium [Moles/Vol] 141 mmol/L 136-145 [facility] WBC (Bld) [#/Vol] 9.3 10*3/uL 4.4-11.0 [facility] Blood erythrocytes count (nu mber/volume)Ordered By: Rachel Beard on 01-23-2023 RBC (Bld) [#/Vol] 3.68 10*6/uL 4.2-5.4 [facility] Blood hemoglobin measurement (mass/volume)Ordered By: Rachel Beard on 01-23-2023 Hemoglobin (Bld) [Mass/Vol] 11.5 g/dL 12.0-15.0 [facility] Blood platelet mean volumeOr dered By: Rachel Beard on 01-23-2023 Platelet mean volume (Bld) [Entitic vol] 11.3 fL 6.2-12.0 [facility] Determination of erythrocyte mean corpuscular volume (MCV)Ordered By: Rachel Beard on 01-23-2023 MCV (RBC) [Entitic vol] 100.5 fL 81-99 [facility] Hematocrit Auto (Bld) [Volum e fraction]Ordered By: Rachel Beard on 01-23-2023 Hematocrit (Bld) [Volume fraction] 37.0 % 37-47 [facility] Laboratory - Chemistry and C hemistry - challengeOrdered By: Rachel Beard on 01-23-2023 CO2 [Moles/Vol] 30.0 mmol/L 21.0-32.0 [facility] Urea nitrogen/Creatinine [Mass ratio] 20.0 mg/mg 10-20 [facility] - Hematology and Cell countsOrdered By: Rachel Beard on 01-23-2023 Erythrocyte distribution width (RBC) [Entitic vol] 47.8 fL 35.1-43.9 [facility] Erythrocyte distribution width (RBC) [Ratio] 12.9 % 11.6-14.6 [facility] MCH (RBC) [Entitic mass] 31.3 pg 27.0-32.0 [facility] MCHC Auto (RBC) [Mass/Vol]Or dered By: Rachel Beard on 01-23-2023 MCHC (RBC) [Mass/Vol] 31.1 g/dL 32-36 [facility] No Panel InformationOrdered By: Rachel Beard on 01-23-2023 Estimated Creatinine Clearance Calc 84.94 ml/min [facility] Estimated GFR (MDRD) Amer 105 mL/min >60 [facility] Comment on above: GFR Calc Estimated GFR (MDRD) Non-Af Amer 87 mL/min >60 [facility] Comment on above: Non- GFR Calc Platelets bldOrdered By: Iggy Beard on 01-23-2023 Platelets (Bld) [#/Vol] 189 10*3/uL 150-450 [facility] Serum or plasma calcium deneen urement (mass/volume)Ordered By: Rachel Beard on 01-23-2023 Calcium [Mass/Vol] 8.4 mg/dL 8.5-10.1 [facility] Serum or plasma creatinine m easurement (mass/volume)Ordered By: Rachel Beard on 01-23-2023 Creatinine [Mass/Vol] 0.75 mg/dL 0.55-1.02 [facility] Comment on above: The validity of the calculated GFR & GFRAA in patients over 70 years has not been determined. Clinical correlation is essential. Serum or plasma urea nitroge n measurement (mass/volume)Ordered By: Rachel Beard on 01-23-2023 Urea nitrogen [Mass/Vol] 15 mg/dL 7-18 [facility] Thin prep Papanicolaou smear with manual screeningOrdered By: Rachel Beard on 01-23-2023 Thin prep Papanicolaou smear with manual screening 5 5-15 [facility] Serum or plasma transthyreti n measurement (mass/volume)Ordered By: Zenaida Barrett on 01-22-2023 Prealbumin [Mass/Vol] 20.8 mg/dL 20.0-40.0 [facility] Serum or plasma trough vanco mycin levelOrdered By: Zenaida Barrett on 01-22-2023 Vancomycin trough [Mass/Vol] 8.0 ug/mL 5.0-15.0 [facility] Comment on above: VANCOMYCIN STANDARED DRUG THERAPY TROUGH LEVEL: 5.0 - 15.0 mg/L VANCOMYCIN HIGH INTENSITY THERAPY TROUGH LEVEL: 15.0 - 20.0 mg/L High Intensity therapy recommended for serious lifethreatening infections include:- Zucpdjzxxg-Kqiknndgltkp-Zjrorqnre (Ventilator/Healtcare Associated)-Sepsis PLEASE CONTACT PHARMACY SERVICES (#[id number]) FOR INTERPRETATIONOF RESULTS. Glucose Glucometer (BldC) [M ass/Vol]Ordered By: Zenaida Barrett on 01-21-2023 Glucose [Mass/Vol] 83 mg/dL 74-106 [facility] Comment on above: MANAGEMENT OF PATIEN T CARE PER NURSING PROTOCOL Gram stain for investigation of transfusion reactionOrdered By: Zenaida Barrett on 01-21-2023 Microscopic observation Gram stain Nom (Unsp spec) [facility] - Chemistry and C hemistry - challengeOrdered By: Zenaida Barrett on 01-16-2023 Magnesium [Mass/Vol] 2.3 mg/dL 1.6-2.6 [facility] Basophil percentageOrdered B y: Rachel Beard on 10-23-2022 Bilirubin [Mass/Vol] 0.20 mg/dL 0.20-1.00 [facility] Comment on above: For patients on eltr ombopag therapy, use of Dimension [place] TBIL is not recommended. Chloride [Moles/Vol] 105 mmol/L 98-107 [facility] Glucose [Mass/Vol] 151 mg/dL 74-106 [facility] Comment on above: Fasting Glucose resu lt greater than or equal to 126 mg/dL suggests DIABETES MELLITUS per A.D.A. criteria. Potassium [Moles/Vol] 3.9 mmol/L 3.5-5.1 [facility] Comment on above: Slight Hemolysis, Re sult may be falsely increased. Protein [Mass/Vol] 7.5 g/dL 6.4-8.2 [facility] Sodium [Moles/Vol] 138 mmol/L 136-145 [facility] Laboratory - Chemistry and C hemistry - challengeOrdered By: Rachel Beard on 10-23-2022 ALP [Catalytic activity/Vol] 130 U/L 45-117 [facility] ALT [Catalytic activity/Vol] 21 U/L 13-56 [facility] CO2 [Moles/Vol] 27.0 mmol/L 21.0-32.0 [facility] Globulin (S) [Mass/Vol] 4.0 g/dL 2.2-4.2 [facility] Urea nitrogen/Creatinine [Mass ratio] 28.3 mg/mg 10-20 [facility] No Panel InformationOrdered By: Rachel Beard on 10-23-2022 Estimated GFR (MDRD) Amer 102 mL/min >60 [facility] Comment on above: GFR Calc Estimated GFR (MDRD) Non-Af Amer 84 mL/min >60 [facility] Comment on above: Non- GFR Calc Serum or plasma albumin deneen urement (mass/volume)Ordered By: Rachel Beard on 10-23-2022 Albumin [Mass/Vol] 3.5 g/dL 3.2-5.0 [facility] Serum or plasma albumin/glob ulin mass ratioOrdered By: Rachel Beard on 10-23-2022 Albumin/Globulin [Mass ratio] 0.9 {ratio} 0.9-2.4 [facility] Serum or plasma calcium deneen urement (mass/volume)Ordered By: Rachel Beard on 10-23-2022 Calcium [Mass/Vol] 9.2 mg/dL 8.5-10.1 [facility] Serum or plasma creatinine m easurement (mass/volume)Ordered By: Rachel Beard on 10-23-2022 Creatinine [Mass/Vol] 0.78 mg/dL 0.55-1.02 [facility] Comment on above: The validity of the calculated GFR & GFRAA in patients over 70 years has not been determined. Clinical correlation is essential. Serum or plasma urea nitroge n measurement (mass/volume)Ordered By: Rachel Beard on 10-23-2022 Urea nitrogen [Mass/Vol] 22 mg/dL 7-18 [facility] Thin prep Papanicolaou smear with manual screeningOrdered By: Rachel Beard on 10-23-2022 Thin prep Papanicolaou smear with manual screening 16 U/L 15-37 [facility] Comment on above: Slight Hemolysis, Re sult may be falsely increased. Thin prep Papanicolaou smear with manual screening 6 5-15 [facility] Basophil percentageOrdered B y: Zenaida Barrett on 10-05-2022 Chloride [Moles/Vol] 106 mmol/L 98-107 [facility] Glucose [Mass/Vol] 107 mg/dL 74-106 [facility] Comment on above: Slight Lipemia, Resu lt may be falsely increased.Fasting Glucose result from 100 to 125 mg/dL suggests IMPAIRED HOMEOSTASIS per A.D.A. criteria. Potassium [Moles/Vol] 4.0 mmol/L 3.5-5.1 [facility] Comment on above: Slight Hemolysis, Re sult may be falsely increased.-Slight Lipemia, Result may be falsely increased. Sodium [Moles/Vol] 140 mmol/L 136-145 [facility] WBC (Bld) [#/Vol] 10.7 10*3/uL 4.4-11.0 [facility] Blood erythrocytes count (nu mber/volume)Ordered By: Zenaida Barrett on 10-05-2022 RBC (Bld) [#/Vol] 3.44 10*6/uL 4.2-5.4 [facility] Blood hemoglobin measurement (mass/volume)Ordered By: Zenaida Barrett on 10-05-2022 Hemoglobin (Bld) [Mass/Vol] 11.1 g/dL 12.0-15.0 [facility] Blood platelet mean volumeOr dered By: Zenaida Barrett on 10-05-2022 Platelet mean volume (Bld) [Entitic vol] 11.6 fL 6.2-12.0 [facility] Determination of erythrocyte mean corpuscular volume (MCV)Ordered By: Zenaida Barrett on 10-05-2022 MCV (RBC) [Entitic vol] 98.8 fL 81-99 [facility] Hematocrit Auto (Bld) [Volum e fraction]Ordered By: Zenaida Barrett on 10-05-2022 Hematocrit (Bld) [Volume fraction] 34.0 % 37-47 [facility] - Chemistry and C hemistry - challengeOrdered By: Zenaida Barrett on 10-05-2022 CO2 [Moles/Vol] 29.0 mmol/L 21.0-32.0 [facility] Comment on above: Slight Lipemia, Resu lt may be falsely increased. Urea nitrogen/Creatinine [Mass ratio] 21.0 mg/mg 10-20 [facility] - Hematology and Cell countsOrdered By: Zenaida Barrett on 10-05-2022 Erythrocyte distribution width (RBC) [Entitic vol] 46.0 fL 35.1-43.9 [facility] Erythrocyte distribution width (RBC) [Ratio] 12.9 % 11.6-14.6 [facility] MCH (RBC) [Entitic mass] 32.3 pg 27.0-32.0 [facility] MCHC Auto (RBC) [Mass/Vol]Or dered By: Zenaida Barrett on 10-05-2022 MCHC (RBC) [Mass/Vol] 32.6 g/dL 32-36 [facility] No Panel InformationOrdered By: Zenaida Barrett on 10-05-2022 Estimated Creatinine Clearance Calc 84.75 ml/min [facility] Estimated GFR (MDRD) Amer 104 mL/min >60 [facility] Comment on above: GFR Calc Estimated GFR (MDRD) Non-Af Amer 86 mL/min >60 [facility] [facility] Comment on above: Non- GFR Calc Platelets bldOrdered By: Dominik Barrett on 10-05-2022 Platelets (Bld) [#/Vol] 194 10*3/uL 150-450 [facility] Serum or plasma calcium deneen urement (mass/volume)Ordered By: Zenaida Barrett on 10-05-2022 Calcium [Mass/Vol] 8.4 mg/dL 8.5-10.1 [facility] Comment on above: Slight Lipemia, Resu lt may be falsely increased. Serum or plasma creatinine m easurement (mass/volume)Ordered By: Zenaida Barrett on 10-05-2022 Creatinine [Mass/Vol] 0.76 mg/dL 0.55-1.02 [facility] Comment on above: Slight Lipemia, Resu lt may be falsely increased.The validity of the calculated GFR & GFRAA in patients over 70 years has not been determined. Clinical correlation is essential. Serum or plasma urea nitroge n measurement (mass/volume)Ordered By: Zenaida Barrett on 10-05-2022 Urea nitrogen [Mass/Vol] 16 mg/dL 7-18 [facility] Comment on above: Slight Lipemia, Resu lt may be falsely increased. Thin prep Papanicolaou smear with manual screeningOrdered By: Zenaida Barrett on 10-05-2022 Thin prep Papanicolaou smear with manual screening 5 5-15 [facility] Serum or plasma transthyreti n measurement (mass/volume)Ordered By: Zenaida Barrett on 10-04-2022 Prealbumin [Mass/Vol] 25.3 mg/dL 20.0-40.0 [facility] Vancomycin troughOrdered By: Zenaida Barrett on 10-04-2022 Vancomycin trough [Mass/Vol] 9.6 ug/mL 5.0-15.0 [facility] Comment on above: VANCOMYCIN STANDARED DRUG THERAPY TROUGH LEVEL: 5.0 - 15.0 mg/L VANCOMYCIN HIGH INTENSITY THERAPY TROUGH LEVEL: 15.0 - 20.0 mg/L High Intensity therapy recommended for serious lifethreatening infections include:- Anwuskhiep-Ctetdbjezkgd-Zdksingkf (Ventilator/Healtcare Associated)-Sepsis PLEASE CONTACT PHARMACY SERVICES (#[id number]) FOR INTERPRETATIONOF RESULTS. Glucose Glucometer (BldC) [M ass/Vol]Ordered By: Zenaida Barrett on 10-03-2022 Glucose [Mass/Vol] 83 mg/dL 74-106 [facility] Comment on above: MANAGEMENT OF PATIEN T CARE PER NURSING PROTOCOL Laboratory - Chemistry and C hemistry - challengeOrdered By: Manuel Fuller on 10-03-2022 Magnesium [Mass/Vol] 2.0 mg/dL 1.6-2.6 [facility] Basophil percentageOrdered B y: Rachel Beard on 09-23-2022 Bilirubin [Mass/Vol] 0.40 mg/dL 0.20-1.00 [facility] Comment on above: For patients on eltr ombopag therapy, use of Dimension [place] TBIL is not recommended. Chloride [Moles/Vol] 110 mmol/L 98-107 [facility] Glucose [Mass/Vol] 137 mg/dL 74-106 [facility] Comment on above: Fasting Glucose resu lt greater than or equal to 126 mg/dL suggests DIABETES MELLITUS per A.D.A. criteria. Potassium [Moles/Vol] 3.9 mmol/L 3.5-5.1 [facility] Comment on above: Slight Hemolysis, Re sult may be falsely increased. Protein [Mass/Vol] 7.4 g/dL 6.4-8.2 [facility] Sodium [Moles/Vol] 140 mmol/L 136-145 [facility] WBC (Bld) [#/Vol] 6.6 10*3/uL 4.4-11.0 [facility] Blood erythrocytes count (nu mber/volume)Ordered By: Rachel Beard on 09-23-2022 RBC (Bld) [#/Vol] 4.04 10*6/uL 4.2-5.4 [facility] Blood hemoglobin measurement (mass/volume)Ordered By: Rachel Beard on 09-23-2022 Hemoglobin (Bld) [Mass/Vol] 13.1 g/dL 12.0-15.0 [facility] Blood platelet mean volumeOr dered By: Rachel Beard on 09-23-2022 Platelet mean volume (Bld) [Entitic vol] 11.5 fL 6.2-12.0 [facility] Determination of erythrocyte mean corpuscular volume (MCV)Ordered By: Rachel Beard on 09-23-2022 MCV (RBC) [Entitic vol] 93.3 fL 81-99 [facility] Hematocrit Auto (Bld) [Volum e fraction]Ordered By: Rachel Beard on 09-23-2022 Hematocrit (Bld) [Volume fraction] 37.7 % 37-47 [facility] Laboratory - Chemistry and C hemistry - challengeOrdered By: Rachelrachel Beard on 09-23-2022 ALP [Catalytic activity/Vol] 113 U/L 45-117 [facility] ALT [Catalytic activity/Vol] 21 U/L 13-56 [facility] CO2 [Moles/Vol] 25.0 mmol/L 21.0-32.0 [facility] Globulin (S) [Mass/Vol] 3.7 g/dL 2.2-4.2 [facility] Urea nitrogen/Creatinine [Mass ratio] 22.0 mg/mg 10-20 [facility] Laboratory - Hematology and Cell countsOrdered By: Rachel Beard on 09-23-2022 Erythrocyte distribution width (RBC) [Entitic vol] 43.1 fL 35.1-43.9 [facility] Erythrocyte distribution width (RBC) [Ratio] 12.6 % 11.6-14.6 [facility] MCH (RBC) [Entitic mass] 32.4 pg 27.0-32.0 [facility] MCHC Auto (RBC) [Mass/Vol]Or dered By: Rachel Beard on 09-23-2022 MCHC (RBC) [Mass/Vol] 34.7 g/dL 32-36 [facility] No Panel InformationOrdered By: Rachel Beard on 09-23-2022 Estimated GFR (MDRD) Amer 85 mL/min >60 [facility] Comment on above: GFR Calc Estimated GFR (MDRD) Non-Af Amer 70 mL/min >60 [facility] Comment on above: Non- GFR Calc Platelets bldOrdered By: Iggy Beard on 09-23-2022 Platelets (Bld) [#/Vol] 223 10*3/uL 150-450 [facility] Serum or plasma albumin deneen urement (mass/volume)Ordered By: Rachel Beard on 09-23-2022 Albumin [Mass/Vol] 3.7 g/dL 3.2-5.0 [facility] Serum or plasma albumin/glob ulin mass ratioOrdered By: Rachel Beard on 09-23-2022 Albumin/Globulin [Mass ratio] 1.0 {ratio} 0.9-2.4 [facility] Serum or plasma calcium deneen urement (mass/volume)Ordered By: Rachel Beard on 09-23-2022 Calcium [Mass/Vol] 8.4 mg/dL 8.5-10.1 [facility] Serum or plasma creatinine m easurement (mass/volume)Ordered By: Rachel Beard on 09-23-2022 Creatinine [Mass/Vol] 0.91 mg/dL 0.55-1.02 [facility] Comment on above: The validity of the calculated GFR & GFRAA in patients over 70 years has not been determined. Clinical correlation is essential. Serum or plasma urea nitroge n measurement (mass/volume)Ordered By: Rachel Beard on 09-23-2022 Urea nitrogen [Mass/Vol] 20 mg/dL 7-18 [facility] Thin prep Papanicolaou smear with manual screeningOrdered By: Rachel Beard on 09-23-2022 Thin prep Papanicolaou smear with manual screening 25 U/L 15-37 [facility] Comment on above: Slight Hemolysis, Re sult may be falsely increased. Thin prep Papanicolaou smear with manual screening 5 5-15 [facility] Basophil percentageOrdered B y: Rachel Beard on 07-24-2022 Bilirubin [Mass/Vol] 0.30 mg/dL 0.20-1.00 [facility] Comment on above: For patients on eltr ombopag therapy, use of Dimension [place] TBIL is not recommended. Chloride [Moles/Vol] 107 mmol/L 98-107 [facility] Glucose [Mass/Vol] 103 mg/dL 74-106 [facility] Comment on above: Fasting Glucose resu lt from 100 to 125 mg/dL suggests IMPAIRED HOMEOSTASIS per A.D.A. criteria. Potassium [Moles/Vol] 4.1 mmol/L 3.5-5.1 [facility] Protein [Mass/Vol] 7.3 g/dL 6.4-8.2 [facility] Sodium [Moles/Vol] 140 mmol/L 136-145 [facility] WBC (Bld) [#/Vol] 7.3 10*3/uL 4.4-11.0 [facility] Blood erythrocytes count (nu mber/volume)Ordered By: Rachle Beard on 07-24-2022 RBC (Bld) [#/Vol] 4.01 10*6/uL 4.2-5.4 [facility] Blood hemoglobin measurement (mass/volume)Ordered By: Rachel Beard on 07-24-2022 Hemoglobin (Bld) [Mass/Vol] 12.5 g/dL 12.0-15.0 [facility] Blood platelet mean volumeOr dered By: Rachel Beard on 07-24-2022 Platelet mean volume (Bld) [Entitic vol] 11.0 fL 6.2-12.0 [facility] Determination of erythrocyte mean corpuscular volume (MCV)Ordered By: Rachel Beard on 07-24-2022 MCV (RBC) [Entitic vol] 94.8 fL 81-99 [facility] Hematocrit Auto (Bld) [Volum e fraction]Ordered By: Rachel Beard on 07-24-2022 Hematocrit (Bld) [Volume fraction] 38.0 % 37-47 [facility] Laboratory - Chemistry and C hemistry - challengeOrdered By: Rachel Beard on 07-24-2022 ALP [Catalytic activity/Vol] 114 U/L 45-117 [facility] ALT [Catalytic activity/Vol] 23 U/L 13-56 [facility] CO2 [Moles/Vol] 26.0 mmol/L 21.0-32.0 [facility] Globulin (S) [Mass/Vol] 3.4 g/dL 2.2-4.2 [facility] Urea nitrogen/Creatinine [Mass ratio] 27.4 mg/mg 10-20 [facility] Laboratory - Hematology and Cell countsOrdered By: Rachel Beard on 07-24-2022 Erythrocyte distribution width (RBC) [Entitic vol] 43.9 fL 35.1-43.9 [facility] Erythrocyte distribution width (RBC) [Ratio] 12.7 % 11.6-14.6 [facility] MCH (RBC) [Entitic mass] 31.2 pg 27.0-32.0 [facility] MCHC Auto (RBC) [Mass/Vol]Or dered By: Rachel Beard on 07-24-2022 MCHC (RBC) [Mass/Vol] 32.9 g/dL 32-36 [facility] No Panel InformationOrdered By: Rachel Beard on 07-24-2022 Estimated GFR (MDRD) Amer 109 mL/min >60 [facility] Comment on above: GFR Calc Estimated GFR (MDRD) Non-Af Amer 90 mL/min >60 [facility] Comment on above: Non- GFR Calc Platelets bldOrdered By: Iggy Beard on 07-24-2022 Platelets (Bld) [#/Vol] 218 10*3/uL 150-450 [facility] Serum or plasma albumin deneen urement (mass/volume)Ordered By: Rachel Beard on 07-24-2022 Albumin [Mass/Vol] 3.9 g/dL 3.2-5.0 [facility] Serum or plasma albumin/glob ulin mass ratioOrdered By: Rachel Beard on 07-24-2022 Albumin/Globulin [Mass ratio] 1.1 {ratio} 0.9-2.4 [facility] Serum or plasma calcium deneen urement (mass/volume)Ordered By: Rachel Beard on 07-24-2022 Calcium [Mass/Vol] 9.3 mg/dL 8.5-10.1 [facility] Serum or plasma creatinine m easurement (mass/volume)Ordered By: Rachel Beard on 07-24-2022 Creatinine [Mass/Vol] 0.73 mg/dL 0.55-1.02 [facility] Comment on above: The validity of the calculated GFR & GFRAA in patients over 70 years has not been determined. Clinical correlation is essential. Serum or plasma urea nitroge n measurement (mass/volume)Ordered By: Rachel Beard on 07-24-2022 Urea nitrogen [Mass/Vol] 20 mg/dL 7-18 [facility] Thin prep Papanicolaou smear with manual screeningOrdered By: Rachel Beard on 07-24-2022 Thin prep Papanicolaou smear with manual screening 17 U/L 15-37 [facility] Thin prep Papanicolaou smear with manual screening 7 5-15 [facility] Fungus stainOrdered By: Dr. Barrett on 06-11-2022 Fungus identified Fungus stain Nom (Unsp spec) [facility] Fungus identified Fungus stain Nom (Unsp spec) [facility] Anaerobic cultureOrdered By: Dr. Barrett on 06-02-2022 Bacteria identified Anaer cx Nom (Unsp spec) No anaerobic bacteria isolated. [facility] Basophil percentageOrdered B y: Dr. Barrett on 06-02-2022 WBC (Bld) [#/Vol] 6.1 10*3/uL 4.4-11.0 [facility] Blood erythrocytes count (nu mber/volume)Ordered By: Dr. Barrett on 06-02-2022 RBC (Bld) [#/Vol] 3.35 10*6/uL 4.2-5.4 [facility] Blood hemoglobin measurement (mass/volume)Ordered By: Dr. Barrett on 06-02-2022 Hemoglobin (Bld) [Mass/Vol] 10.4 g/dL 12.0-15.0 [facility] Blood platelet mean volumeOr dered By: Dr. Barrett on 06-02-2022 Platelet mean volume (Bld) [Entitic vol] 10.4 fL 6.2-12.0 [facility] Determination of erythrocyte mean corpuscular volume (MCV)Ordered By: Dr. Barrett on 06-02-2022 MCV (RBC) [Entitic vol] 99.4 fL 81-99 [facility] Hematocrit Auto (Bld) [Volum e fraction]Ordered By: Dr. Barrett on 06-02-2022 Hematocrit (Bld) [Volume fraction] 33.3 % 37-47 [facility] Laboratory - Hematology and Cell countsOrdered By: Dr. Barrett on 06-02-2022 Erythrocyte distribution width (RBC) [Entitic vol] 46.2 fL 35.1-43.9 [facility] Erythrocyte distribution width (RBC) [Ratio] 12.8 % 11.6-14.6 [facility] MCH (RBC) [Entitic mass] 31.0 pg 27.0-32.0 [facility] MCHC Auto (RBC) [Mass/Vol]Or dered By: Dr. Barrett on 06-02-2022 MCHC (RBC) [Mass/Vol] 31.2 g/dL 32-36 [facility] Platelets bldOrdered By: Dr. Barrett on 06-02-2022 Platelets (Bld) [#/Vol] 210 10*3/uL 150-450 [facility] Bacteria identified Cx Nom ( Wound)Ordered By: Dr. Barrett on 06-01-2022 Wound Culture Staphylococcus epidermidis [facility] Basophil percentageOrdered B y: Dr. Barrett on 05-31-2022 Chloride [Moles/Vol] 107 mmol/L 98-107 [facility] Glucose [Mass/Vol] 113 mg/dL 74-106 [facility] Comment on above: Fasting Glucose resu lt from 100 to 125 mg/dL suggests IMPAIRED HOMEOSTASIS per A.D.A. criteria. Potassium [Moles/Vol] 4.3 mmol/L 3.5-5.1 [facility] Sodium [Moles/Vol] 142 mmol/L 136-145 [facility] Gram stain for investigation of transfusion reactionOrdered By: Dr. Barrett on 05-31-2022 Microscopic observation Gram stain Nom (Unsp spec) [facility] Laboratory - Chemistry and C hemistry - challengeOrdered By: Dr. Barrett on 05-31-2022 CO2 [Moles/Vol] 28.0 mmol/L 21.0-32.0 [facility] Urea nitrogen/Creatinine [Mass ratio] 18.9 mg/mg 10-20 [facility] No Panel InformationOrdered By: Dr. Barrett on 05-31-2022 Estimated Creatinine Clearance Calc 93.34 ml/min [facility] Estimated GFR (MDRD) Amer 117 mL/min >60 [facility] Comment on above: GFR Calc Estimated GFR (MDRD) Non-Af Amer 97 mL/min >60 [facility] Comment on above: Non- GFR Calc Serum or plasma calcium deneen urement (mass/volume)Ordered By: Dr. Barrett on 05-31-2022 Calcium [Mass/Vol] 8.7 mg/dL 8.5-10.1 [facility] Serum or plasma creatinine m easurement (mass/volume)Ordered By: Dr. Barrett on 05-31-2022 Creatinine [Mass/Vol] 0.69 mg/dL 0.55-1.02 [facility] Comment on above: The validity of the calculated GFR & GFRAA in patients over 70 years has not been determined. Clinical correlation is essential. Serum or plasma transthyreti n measurement (mass/volume)Ordered By: Dr. Barrett on 05-31-2022 Prealbumin [Mass/Vol] 18.7 mg/dL 20.0-40.0 [facility] Serum or plasma urea nitroge n measurement (mass/volume)Ordered By: Dr. Barrett on 05-31-2022 Urea nitrogen [Mass/Vol] 13 mg/dL 09-30 [facility] Thin prep Papanicolaou smear with manual screeningOrdered By: Dr. Barrett on 05-31-2022 Thin prep Papanicolaou smear with manual screening 7 5- [facility] Vancomycin troughOrdered By: Dr. Barrett on 05-31-2022 Vancomycin trough [Mass/Vol] 9.8 ug/mL 5.0-15.0 [facility] Comment on above: VANCOMYCIN STANDARED DRUG THERAPY TROUGH LEVEL: 5.0 - 15.0 mg/L VANCOMYCIN HIGH INTENSITY THERAPY TROUGH LEVEL: 15.0 - 20.0 mg/L High Intensity therapy recommended for serious lifethreatening infections include:- Lkhqoofceh-Qxrglptkurqn-Kbeqaybhi (Ventilator/Healtcare Associated)-Sepsis PLEASE CONTACT PHARMACY SERVICES (#[id number]) FOR INTERPRETATIONOF RESULTS. Glucose Glucometer (BldC) [M ass/Vol]Ordered By: Dr. Barrett on 05-30-2022 Glucose [Mass/Vol] 88 mg/dL 74-106 [facility] Comment on above: MANAGEMENT OF MOHIT T CARE PER NURSING PROTOCOL Laboratory - Chemistry and C hemistry - challengeOrdered By: Dr. Guan on 05-27-2022 Magnesium [Mass/Vol] 2.2 mg/dL 1.6-2.6 [facility] Anaerobic cultureOrdered By: Rachel Beard on 05-16-2022 Bacteria identified Anaer cx Nom (Unsp spec) No anaerobic bacteria isolated. 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 Vitals Vital Signs Recorded: [id number] 08:45AM [id number] Height5 ft 5 in Awxqhq14.3 kg BMI Nmicrcojpc39.99 kg/m2 BSA Calculated1.84 Tobacco Useb) No PHQ-2 [...] Screening.on 023 Adult depression screening assessment No [employer] Work Phone: Fall risk assessment a) No falls within the last year [employer] Work Phone: Last menstrual period start date Hysterectomy 2019 [employer] Work Phone: Tobacco use status CPHS b) No [employer] Work Phone: Basophil percentageOrdered B y: Dr. Barrett on 04-23-2022 WBC (Bld) [#/Vol] 7.9 10*3/uL 4.4-11.0 [facility] Blood erythrocytes count (nu mber/volume)Ordered By: Dr. Barrett on 04-23-2022 RBC (Bld) [#/Vol] 3.57 10*6/uL 4.2-5.4 [facility] Blood hemoglobin measurement (mass/volume)Ordered By: Dr. Barrett on 04-23-2022 Hemoglobin (Bld) [Mass/Vol] 11.5 g/dL 12.0-15.0 [facility] Blood platelet mean volumeOr dered By: Dr. Barrett on 04-23-2022 Platelet mean volume (Bld) [Entitic vol] 10.4 fL 6.2-12.0 [facility] Determination of erythrocyte mean corpuscular volume (MCV)Ordered By: Dr. Barrett on 04-23-2022 MCV (RBC) [Entitic vol] 97.8 fL 81-99 [facility] Hematocrit Auto (Bld) [Volum e fraction]Ordered By: Dr. Barrett on 04-23-2022 Hematocrit (Bld) [Volume fraction] 34.9 % 37-47 [facility] Laboratory - Hematology and Cell countsOrdered By: Dr. Barrett on 04-23-2022 Erythrocyte distribution width (RBC) [Entitic vol] 46.1 fL 35.1-43.9 [facility] Erythrocyte distribution width (RBC) [Ratio] 12.9 % 11.6-14.6 [facility] MCH (RBC) [Entitic mass] 32.2 pg 27.0-32.0 [facility] MCHC Auto (RBC) [Mass/Vol]Or dered By: Dr. Barrett on 04-23-2022 MCHC (RBC) [Mass/Vol] 33.0 g/dL 32-36 [facility] Platelets bldOrdered By: Dr. Barrett on 04-23-2022 Platelets (Bld) [#/Vol] 279 10*3/uL 150-450 [facility] Basophil percentageOrdered B y: Dr. Barrett on 04-14-2022 Chloride [Moles/Vol] 105 mmol/L 98-107 [facility] Glucose [Mass/Vol] 171 mg/dL 74-106 [facility] Comment on above: Fasting Glucose resu lt greater than or equal to 126 mg/dL suggests DIABETES MELLITUS per A.D.A. criteria. Potassium [Moles/Vol] 4.2 mmol/L 3.5-5.1 [facility] Sodium [Moles/Vol] 141 mmol/L 136-145 [facility] WBC (Bld) [#/Vol] 6.5 10*3/uL 4.4-11.0 [facility] Blood erythrocytes count (nu mber/volume)Ordered By: Dr. Barrett on 04-14-2022 RBC (Bld) [#/Vol] 2.72 10*6/uL 4.2-5.4 [facility] Blood hemoglobin measurement (mass/volume)Ordered By: Dr. Barrett on 04-14-2022 Hemoglobin (Bld) [Mass/Vol] 8.6 g/dL 12.0-15.0 [facility] Blood platelet mean volumeOr dered By: Dr. Barrett on 04-14-2022 Platelet mean volume (Bld) [Entitic vol] 9.9 fL 6.2-12.0 [facility] Determination of erythrocyte mean corpuscular volume (MCV)Ordered By: Dr. Barrett on 04-14-2022 MCV (RBC) [Entitic vol] 101.8 fL 81-99 [facility] Hematocrit Auto (Bld) [Volum e fraction]Ordered By: Dr. Barrett on 04-14-2022 Hematocrit (Bld) [Volume fraction] 27.7 % 37-47 [facility] Laboratory - Chemistry and C hemistry - challengeOrdered By: Dr. Barrett on 04-14-2022 CO2 [Moles/Vol] 33.0 mmol/L 21.0-32.0 [facility] Urea nitrogen/Creatinine [Mass ratio] 19.1 mg/mg 10-20 [facility] Laboratory - Hematology and Cell countsOrdered By: Dr. Barrett on 04-14-2022 Erythrocyte distribution width (RBC) [Entitic vol] 47.0 fL 35.1-43.9 [facility] Erythrocyte distribution width (RBC) [Ratio] 12.6 % 11.6-14.6 [facility] MCH (RBC) [Entitic mass] 31.6 pg 27.0-32.0 [facility] MCHC Auto (RBC) [Mass/Vol]Or dered By: Dr. Barrett on 04-14-2022 MCHC (RBC) [Mass/Vol] 31.0 g/dL 32-36 [facility] Comment on above: Delta: 32.8 on 04/12 No Panel InformationOrdered By: Dr. Barrett on 04-14-2022 Estimated Creatinine Clearance Calc 94.72 ml/min [facility] Estimated GFR (MDRD) Amer 119 mL/min >60 [facility] Comment on above: GFR Calc Estimated GFR (MDRD) Non-Af Amer 98 mL/min >60 [facility] Comment on above: Non- GFR Calc Platelets bldOrdered By: Dr. Barrett on 04-14-2022 Platelets (Bld) [#/Vol] 156 10*3/uL 150-450 [facility] Serum or plasma calcium deneen urement (mass/volume)Ordered By: Dr. Barrett on 04-14-2022 Calcium [Mass/Vol] 8.6 mg/dL 8.5-10.1 [facility] Serum or plasma creatinine m easurement (mass/volume)Ordered By: Dr. Barrett on 04-14-2022 Creatinine [Mass/Vol] 0.68 mg/dL 0.55-1.02 [facility] Comment on above: The validity of the calculated GFR & GFRAA in patients over 70 years has not been determined. Clinical correlation is essential. Serum or plasma urea nitroge n measurement (mass/volume)Ordered By: Dr. Barrett on 04-14-2022 Urea nitrogen [Mass/Vol] 13 mg/dL 7-18 [facility] Thin prep Papanicolaou smear with manual screeningOrdered By: Dr. Barrett on 04-14-2022 Thin prep Papanicolaou smear with manual screening 3 5-15 [facility] Serum or plasma transthyreti n measurement (mass/volume)Ordered By: Dr. Barrett on 04-12-2022 Prealbumin [Mass/Vol] 18.4 mg/dL 20.0-40.0 [facility] Glucose Glucometer (BldC) [M ass/Vol]Ordered By: Dr. Barrett on 04-11-2022 Glucose [Mass/Vol] 105 mg/dL 74-106 [facility] Comment on above: MANAGEMENT OF PATIEN T CARE PER NURSING PROTOCOL Laboratory - Chemistry and C hemistry - challengeOrdered By: Dr. Reece on 04-08-2022 Magnesium [Mass/Vol] 2.2 mg/dL 1.6-2.6 [facility] [facility] Comment on above: Slight Hemolysis, Re sult may be falsely increased. NOVEL CORONAVIRUSon 03-11-20 PERFORMED BY [facility] Normal [facility] Comment on above: Performed By: #### C COVID #### Testing performed at [place] [address] [facility] [place] [address] SARS-CoV-2 (COVID-19) RNA WILEY+probe Ql (Unsp spec) Not detected Normal NOT DETECTED [facility] Comment on above: Result Comment: Nega tive [...] #### C COVID #### Testing performed at [address] [address] NARRATIVE This test was perfor med using isothermal WILEY and has been approved as Emergency Use Authorization (EUA) for the qualitative detection rkCFSN-OrD-2 nucleic acid. Normal [facility] Comment on above: Performed By: #### C COVID #### Testing performed at [address] [address] BLOOD CULTURE, BACTERIALon 1 05-11-2021 BLOOD CULTURE, BACTERIAL Only 1 bottle drawn PATIENT: IRENE LOPEZ LOCATION: [facility]#: [id number] : 71 AGE: SEX: F ORDERED BY: SEAN MALAGON SOURCE: Blood COLLECTED: 03/09/22 23:35 ANTIBIOTICS AT [facility].: RECEIVED : 03/10/22 14:06 SITE: R E S U L T S BLOOD CULTURE, BACTERIAL FINAL 03/14/22 15:42 No Growth at 1 days No Growth at 2 days No Growth at 3 days NO GROWTH at 4 days - FINAL REPORT [facility] Comment on above: Performed By: #### B [facility] #### [facility] [address] [place] [address] BLOOD CULTURE, BACTERIAL Only 1 bottle drawn PATIENT: IRENE LOPEZ LOCATION: [facility]#: [id number] : 71 AGE: SEX: F ORDERED BY: SEAN MALAGON SOURCE: Blood COLLECTED: 03/09/22 23:35 ANTIBIOTICS AT [facility].: RECEIVED : 03/10/22 14:08 SITE: ANTECUBITAL PERIPHERAL R E S U L T S BLOOD CULTURE, BACTERIAL FINAL 03/14/22 15:42 No Growth at 1 days No Growth at 2 days No Growth at 3 days NO GROWTH at 4 days - FINAL REPORT Normal [facility] Comment on above: Performed By: #### B LDC #### [facility] [address] [place] [address] CBC AND DIFFERENTIALon 03-10 % AUTOMATED IMMATURE GRAN 0.9 % Normal 0.0 - 0.9 [facility] Comment on above: Result Comment: Erika ture Granulocyte Count (IG) includes promyelocytes, myelocytes and metamyelocytes but does not include bands. Percent differential counts (%) should be interpreted in the context of the absolute cell counts (cells/L). Performed By: #### T RP #### [place] [id number] DIFFERENTIAL SEE MANUAL DIFF Normal [facility] Comment on above: Performed By: #### T RP #### [place] [id number] Erythrocyte distribution width (RBC) [Ratio] 12.1 % Normal 11.5 - 14.5 [facility] Comment on above: Performed By: #### T RP #### [place] [id number] Hematocrit (Bld) [Volume fraction] 34.9 % Low 36.0 - 46.0 [facility] Comment on above: Performed By: #### T RP #### [address] [address] Hemoglobin (Bld) [Mass/Vol] 11.7 g/dL Low 12.0 - 16.0 [facility] Comment on above: Performed By: #### T RPHS #### [address] [address] MCHC (RBC) [Mass/Vol] 33.5 g/dL Normal 32.0 - 36.0 [facility] Comment on above: Performed By: #### T RPHS #### [address] [address] MCV (RBC) [Entitic vol] 94 fL Normal 80 - 100 [facility] Comment on above: Performed By: #### T RPHS #### [address] [address] Platelets (Bld) [#/Vol] 176 10*3/uL Normal 150 - 450 [facility] Comment on above: Performed By: #### T RP #### [address] [address] RBC 3.71 x10E12/L Low 4.00 - 5.20 [facility] Comment on above: Performed By: #### T RP #### [address] [address] WBC (Bld) [#/Vol] 9.4 10*3/uL Normal 4.4 - 11.3 [facility] Comment on above: Performed By: #### T [facility] #### [place] [id number] COMPREHENSIVE PANELon 2021 Albumin [Mass/Vol] 3.9 g/dL Normal 3.4 - 5.0 [facility] Comment on above: Performed By: #### C MP #### [address] [address] ALP [Catalytic activity/Vol] 98 U/L Normal 33 - 110 [facility] Comment on above: Performed By: #### C MP #### [address] [address] ALT [Catalytic activity/Vol] 33 U/L Normal 7 - 45 [facility] Comment on above: Result Comment: Andria ents treated with Sulfasalazine may generate falsely decreased results for ALT. Performed By: #### C MP #### [address] [address] Anion gap [Moles/Vol] 14 mmol/L Normal 10 - 20 [facility] Comment on above: Performed By: #### C MP #### [address] [address] AST [Catalytic activity/Vol] 55 U/L High 9 - 39 [facility] Comment on above: Performed By: #### C MP #### [address] [address] Bilirubin [Mass/Vol] 0.7 mg/dL Normal 0.0 - 1.2 [facility] Comment on above: Performed By: #### C MP #### [address] [address] Calcium [Mass/Vol] 8.9 mg/dL Normal 8.6 - 10.3 [facility] Comment on above: Performed By: #### C MP #### [address] [address] Chloride [Moles/Vol] 104 mmol/L Normal 98 - 107 [facility] Comment on above: Performed By: #### C MP #### [address] [address] Creatinine [Mass/Vol] 0.86 mg/dL Normal 0.50 - 1.05 [facility] Comment on above: Performed By: #### C MP #### [address] [address] GFR/1.73 sq M.predicted among non-blacks MDRD (S/P/Bld) [Vol rate/Area] 83 mL/min/{1.73_m2} Normal >90 [facility] Comment on above: Result Comment: CALC ULATIONS OF ESTIMATED GFR ARE PERFORMED USING THE 2020 CKD-EPI STUDY REFIT EQUATION WITHOUT THE RACE VARIABLE FOR THE IDMS-TRACEABLE CREATININE METHODS. https://jasn.asnjournals.org/content/early//ASN.00958 77725 Performed By: #### C MP #### [address] [address] Glucose [Mass/Vol] 129 mg/dL High 74 - 99 [facility] Comment on above: Performed By: #### C MP #### [address] [address] HCO3 (Bld) [Moles/Vol] 21 mmol/L Normal 21 - 32 [facility] Comment on above: Performed By: #### C MP #### [address] [address] Potassium [Moles/Vol] 3.1 mmol/L Low 3.5 - 5.3 [facility] Comment on above: Performed By: #### C MP #### [address] [address] Protein [Mass/Vol] 6.8 g/dL Normal 6.4 - 8.2 [facility] Comment on above: Performed By: #### C MP #### [address] [address] Sodium [Moles/Vol] 136 mmol/L Normal 136 - 145 [facility] Comment on above: Performed By: #### C MP #### [address] [address] Urea nitrogen [Mass/Vol] 12 mg/dL Normal 6 - 23 [facility] Comment on above: Performed By: #### C MP #### [address] [address] [address] ANGIO CHEST FOR PEon 12- CT ANGIO CHEST FOR PE Patient Name: IRENE LOPEZ STUDY: CT ANGIO CHEST FOR PE; 03/10/2022 12:34 am INDICATION: Dyspnea/elevated D-dimer . COMPARISON: 06/03/2019. ACCESSION NUMBER(S): [id number] ORDERING CLINICIAN: SEAN MALAGON TECHNIQUE: Helical data [...] Electronically signed by: MARTIN AJ, DO Normal [facility] Covid 19 Resultson 2 SARS-CoV-2 (COVID-19) RNA [...] You may also be contacted by the [facility] to see if any of your [...] or Naproxen (Aleve) can also be used. Vjim-wlp-sdhqsgs cough and cold medicines can be used according to the instructions on the package. Some fwqn-rst-gnlcciz medicines also contain acetaminophen. Make sure you [...] water are not available, use alcohol-based hand kitchen steward. Avoid touching your eyes, nose, and mouth [...] 24 sang (more content not included)... Normal [facility] D-DIMER, VTE EXCLUSIONon D-DIMER, VTE EXCLUSION 2499 ng/mL FEU Abnormal < or = 50 0 [facility] Comment on above: Result Comment: The VTE [...] or PE exclusion.) Performed By: #### T [facility] #### [place] [address] INFLUENZA A/B, COVID 2019 PC R,SYMPTOMATICon 03-10-2022 INFLUENZA A, PCR Not detected Normal Not Detected [facility] Comment on above: Result Comment: Resp iratory virus testing is performed routinely by PCR for Influenza A/B and RSV. Not Detected results do not preclude Influenza A/B or RSV infections since the adequacy of sample collection or low viral burden may impact the clinical sensitivity of this test method. Performed By: #### B MP #### [place] [address] INFLUENZA B, PCR Not detected Normal Not Detected [facility] Comment on above: Result Comment: Resp iratory virus testing is performed routinely by PCR for Influenza A/B and RSV. Not Detected results do not preclude Influenza A/B or RSV infections since the adequacy of sample collection or low viral burden may impact the clinical sensitivity of this test method. Performed By: #### B MP #### [place] [address] SARS-CoV-2 (COVID-19) RNA WILEY+probe Ql (Unsp spec) Not detected Normal Not Detected [facility] Comment on above: Result Comment: . This test has received FDA Emergency Use Authorization (EUA) and has been verified by [facility]. This test is only authorized for the duration of time that circumstances exist to justify the authorization of the emergency use of in vitro diagnostic tests for the detection of SARS-CoV-2 virus and/or diagnosis of COVID-19 infection under section 564(b)(1) of the Act, 21 U.S.C. 360bbb-3(b)(1), unless the authorization is terminated or revoked sooner. [facility] is certified under CLIA-88 as qualified to perform high complexity testing. Testing is performed in the [facility] laboratory located at [address] [place] [address]. SARS-CoV-2/Flu/RSV Multiplex Test: Fact sheet for providers: https://www.fda.gov/media/832825/download Fact sheet for patients: https://www.fda.gov/media/113387/download Performed By: #### B MP #### [place] [address] MANUAL DIFFERENTIALon 2021 % BASOPHIL 0.0 % Normal 0.0 - 2.0 [facility] Comment on above: Performed By: #### M DIFF #### [address] [address] % EOSINOPHIL 1.0 % Normal 0.0 - 6.0 [facility] Comment on above: Performed By: #### M DIFF #### [address] [address] % LYMPH-ATYPICAL 8.0 % Normal 0.0 - 2.0 [facility] Comment on above: Performed By: #### M DIFF #### [address] [address] % LYMPHOCYTE 36.0 % Normal 13.0 - 44.0 [facility] Comment on above: Performed By: #### M DIFF #### [address] [address] % MONOCYTE 4.0 % Normal 2.0 - 10.0 [facility] Comment on above: Performed By: #### M DIFF #### [address] [address] % SEG NEUTROPHIL 51.0 % Normal 40.0 - 80.0 [facility] Comment on above: Result Comment: Perc ent differential counts (%) should be interpreted in the context of the absolute cell counts (cells/L). Performed By: #### M DIFF #### [address] [address] ANC 4.79 x10E9/L Normal 1.20 - 7.70 [facility] Comment on above: Performed By: #### M DIFF #### [address] [address] BASOPHIL 0.00 x10E9/L Normal 0.00 - 0.10 [facility] Comment on above: Performed By: #### M DIFF #### [address] [address] EOSINOPHIL 0.09 x10E9/L Normal 0.00 - 0.70 [facility] Comment on above: Performed By: #### M DIFF #### [address] [address] LYMPH-ATYPICAL 0.75 x10E9/L High 0.00 - 0.50 [facility] Comment on above: Performed By: #### M DIFF #### [address] [address] LYMPHOCYTE 3.38 x10E9/L Normal 1.20 - 4.80 [facility] Comment on above: Performed By: #### M DIFF #### [address] [address] MONOCYTE 0.38 x10E9/L Normal 0.10 - 1.00 [facility] Comment on above: Performed By: #### M DIFF #### [address] [address] SEG NEUTROPHIL 4.79 x10E9/L Normal 1.20 - 7.00 [facility] Comment on above: Performed By: #### M DIFF #### [facility] [address] [place] [address] Provider Note - ED v3on 12- Provider Note - ED v3 Provider Note: [...] Alert and oriented x4, GCS 15 , toaster operator II-XII grossly intact. Sensation and motor function of extremities grossly intact. Psych: Appropriate mood and affect. I have reviewed and confirmed nurses/medics notes for patient past, social and family history. Portions of this note were dictated by speech recognition. An attempt at proof reading was made to minimize errors. Minor errors in pega developer may be present. HISTORY OF PRESENTING ILLNESS [...] Reference Range: STRAW,YELLOW Appearance, Urine CLEAR Specific [place], Urine 1.010 pH, Urine 6.5 Protein, Urine [...] Serum 33 (more content not included)... Normal [facility] RED CELL MORPHOLOGYon 2021 POLYCHROMASIA Mild Normal [facility] Comment on above: Performed By: #### B MP #### [place] [address] RBC morphology finding Nom (Bld) See Below Normal [facility] Comment on above: Performed By: #### B MP #### [place] [address] STOMATOCYTES Few Normal [facility] Comment on above: Performed By: #### B MP #### [place] [address] RSV PCRon 03-10-2022 RSV,PCR Not detected Normal Not Detected [facility] Comment on above: Result Comment: Resp iratory virus testing is performed routinely by PCR for Influenza A/B and RSV. Not Detected results do not preclude Influenza A/B or RSV infections since the adequacy of sample collection or low viral burden may impact the clinical sensitivity of this test method. Performed By: #### R [facility] #### [place] [address] Lab Specimen Source Nasal, Nasopharyngeal Normal [facility] Comment on above: Performed By: #### R [facility] #### [place] [address] Performed By: #### B #### [place] [address] [place] [address] Risk Screen - Adult Emergenc yon 03-10-2022 Risk Screen - Adult Emergency Preferred Language: Preferred Language: Preferred Language for Discussing Health Care (patient/designee)[place] Patient Preferred Pharmacy: Patient Preferred Pharmacy Statement: [...] Learning Preferenceswritten material Cultural Considerationsnone Developmental Considerationsnone Episcopal Considerationsnone Other Learnersnone Learning Assessment (Other Learner): Learning Assessment (Other Learner): Other learner availableno Pressure Injury/TB/Substance: Pressure Injury: Pressure Injury Present on Admissionno Do you have a coughno Smoking Statusformer smoker Alcohol Usedenies Drug Usedenies Drug 2 Usedenies Admission Risk Screen: Significant IndicatorsComplete CAGE: CAGE: Is this an injured patient at a Trauma Center ([facility]/[place]/ [place]): no Electronic Signatures: Gladys Webster (SUPV) (Signed 09-Mar-2022 23:07) Authored: Preferred Language, Patient Preferred Pharmacy, Advanced Directives, Family Violence Adult, Learning Assessment (Patient), Learning Assessment (Other Learner), Pressure Injury/TB/Substance, Pressure Injury, CAGE Last Updated: 09-Mar-2022 23:07 by Gladys Webster (SUPV) Normal [facility] TH CT Angio Chest For PEon 1 05-11-[address] Angio Chest For PE [facility] Work Phone: TROPONIN I, HIGH SENSITIVITY on 03-10-2022 TROPONIN I, HIGH SENSITIVITY 7 ng/L Normal 0 - 13 [facility] Comment on above: Result Comment: . Less [...] performed using a different testing methodology at [facility] than at other [facility]. Direct result comparisons should only be made within the same method. Performed By: #### T [facility] #### [place] [address] [place] [id number] Triage - EDon 03-10-2022 Triage - ED [...] 93% on room air, no respiratory support. 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 CELLS 1 /HPF Normal [facility] Comment on above: Performed By: #### U AMIC #### [address] [address] WBC 3 /HPF Normal 0-5 [facility] Comment on above: Performed By: #### U AMIC #### [address] [address] URINALYSIS WITH CULTURE IF I NDICATEDon 03-10-2022 Appearance (U) CLEAR Normal CLEAR [facility] Comment on above: Performed By: #### B MP #### [address] [address] Bilirubin Ql (U) Negative Normal NEGATIVE [facility] Comment on above: Performed By: #### B MP #### [address] [address] Color (U) STRAW Normal STRAW,YELLOW [facility] Comment on above: Performed By: #### B MP #### [address] [address] Glucose Ql (U) Negative Normal NEGATIVE [facility] Comment on above: Performed By: #### B MP #### [address] [address] Hemoglobin Ql (U) TRACE Abnormal NEGATIVE [facility] Comment on above: Performed By: #### B MP #### [address] [address] Ketones Ql (U) Negative Normal NEGATIVE [facility] Comment on above: Performed By: #### B MP #### [address] [address] Leukocyte esterase Test strip Ql (U) Negative Normal NEGATIVE [facility] Comment on above: Performed By: #### B MP #### [address] [address] Nitrite Ql (U) Negative Normal NEGATIVE [facility] Comment on above: Performed By: #### B MP #### [address] [address] pH (U) 6.5 [pH] Normal 5.0 - 8.0 [facility] Comment on above: Performed By: #### B MP #### [address] [address] Protein Ql (U) Negative Normal NEGATIVE [facility] Comment on above: Performed By: #### B MP #### [address] [address] Specific gravity (U) [Rel density] 1.010 Normal 1.005 - 1.035 [facility] Comment on above: Performed By: #### B MP #### [address] [address] Urobilinogen (U) [Mass/Vol] mg/dL Normal 0.0 - 1.9 [facility] Comment on above: Performed By: #### B MP #### [address] [address] Color (U) STRAW See Below [facility] Work Phone: [phone] Comment on above: Reference Range: STR AW,YELLOW Glucose Ql (U) Negative NEGATIVE [facility] Work Phone: [phone] Ketones Ql (U) Negative NEGATIVE [facility] Work Phone: [phone] Leukocyte esterase Test strip Ql (U) Negative NEGATIVE [facility] Work Phone: [phone] pH (U) 6.5 [pH] 5.0 - 8.0 [facility] Work Phone: [phone] Protein (U) [Mass/Vol] Negative NEGATIVE [facility] Work Phone: [phone] RBC (U) [#/Vol] TRACE Abnormal NEGATIVE [facility] Work Phone: [phone] Specific gravity (U) [Rel density] 1.010 1 See Below [facility] Work Phone: [phone] Comment on above: Reference Range: 1.0 05 - 1.035 URINALYSIS WITH CULTURE IF INDICATED Negative NEGATIVE [facility] Work Phone: [phone] URINALYSIS WITH CULTURE IF INDICATED <2.0 0.0 - 1.9 [facility] Work Phone: [phone] URINALYSIS WITH CULTURE IF INDICATED CLEAR CLEAR [facility] Work Phone: [phone] Urinalysis, Microscopicon Urinalysis, Microscopic 1 {/HPF} [facility] Work Phone: [phone] Urinalysis, Microscopic <1 0-5 [facility] Work Phone: [phone] Urinalysis, Microscopic 3 {/HPF} 0-5 [facility] Work Phone: [phone] Complete Blood Count + Diffe rentialon 03-09-2022 Erythrocyte distribution width (RBC) [Ratio] 12.1 % See Below [facility] Work Phone: [phone] Comment on above: Reference Range: 11. 5 - 14.5 Hematocrit (Bld) [Volume fraction] 34.9 % below low threshold See Below [facility] Work Phone: [phone] Comment on above: Reference Range: 36. 0 - 46.0 Hemoglobin (Bld) [Mass/Vol] 11.7 g/dL below low threshold See Below [facility] Work Phone: [phone] Comment on above: Reference Range: 12. 0 - 16.0 MCHC (RBC) [Mass/Vol] 33.5 g/dL See Below [facility] Work Phone: [phone] Comment on above: Reference Range: 32. 0 - 36.0 MCV (RBC) [Entitic vol] 94 fL 80 - 100 [facility] Work Phone: [phone] Platelets (Bld) [#/Vol] 176 10*3/uL 150 - 450 [facility] Work Phone: [phone] RBC (Bld) [#/Vol] 3.71 {x10E12/L} below low threshold See Below [facility] Work Phone: [phone] Comment on above: Reference Range: 4.0 0 - 5.20 WBC (Bld) [#/Vol] 9.4 10*3/uL 4.4 - 11.3 [facility] Work Phone: [phone] Complete Blood Count + Differential SEE MANUAL DIFF [facility] Work Phone: [phone] Complete Blood Count + Differential 0.9 % 0.0 - 0.9 [facility] Work Phone: [phone] Comment on above: Immature Granulocyte Count (IG) includes promyelocytes, myelocytes and metamyelocytes but does not include bands. Percent differential counts (%) should be interpreted in the context of the absolute cell counts (cells/L). Cult, Bloodon 03-09-2022 Bacteria identified Cx Nom (Bld) [facility] Work Phone: INFLUENZA A/B, COVID 2019 PC R,SYMPTOMATICon 03-09-2022 INFLUENZA A/B, COVID 2019 PCR,SYMPTOMATIC Not detected See Below [facility] Work Phone: Comment on above: Reference Range: Not Detected.This test has received [facility] Emergency Use Authorization (EUA) and has been verified by [facility]. This test is only authorized for the duration of time that circumstances exist to justify the authorization of the emergency use of in vitro diagnostic tests for the detection of SARS-CoV-2 virus and/or diagnosis of COVID-19 infection under section 564(b)(1) of the Act, 21 U.S.C. 360bbb-3(b)(1), unless the authorization is terminated or revoked sooner. [facility] is certified under CLIA-88 as qualified to perform high complexity testing. Testing is performed in the [facility] laboratory located at [address] [place] [address].SARS-CoV-2/Flu/RSV Multiplex Test: Fact sheet for providers: https://www.fda.gov/media/185919/downloadFact sheet for patients: https://www.fda.gov/media/227963/download Reference Range: Not Detected Respiratory virus testing [...] - Chemistry and C hemistry - challengeon 12-25-2022 Albumin BCP dye [Mass/Vol] 3.9 g/dL 3.4 - 5.0 [facility] Work Phone: [phone] ALP [Catalytic activity/Vol] 98 U/L 33 - 110 [facility] Work Phone: [phone] ALT With P-5'-P [Catalytic activity/Vol] 33 U/L 7 - 45 [facility] Work Phone: [phone] Comment on above: Patients treated wit h Sulfasalazine may generate falsely decreased results for ALT. Anion gap [Moles/Vol] 14 mmol/L 10 - 20 [facility] Work Phone: [phone] AST With P-5'-P [Catalytic activity/Vol] 55 U/L above high threshold 9 - 39 [facility] Work Phone: [phone] Bilirubin [Mass/Vol] 0.7 mg/dL 0.0 - 1.2 [facility] Work Phone: [phone] Calcium [Mass/Vol] 8.9 mg/dL 8.6 - 10.3 [facility] Work Phone: [phone] Chloride [Moles/Vol] 104 mmol/L 98 - 107 [facility] Work Phone: [phone] CO2 [Moles/Vol] 21 mmol/L 21 - 32 [facility] Work Phone: [phone] Creatinine [Mass/Vol] 0.86 mg/dL See Below [facility] Work Phone: [phone] Comment on above: Reference Range: 0.5 0 - 1.05 Glucose [Mass/Vol] 129 mg/dL above high threshold 74 - 99 [facility] Work Phone: [phone] Potassium [Moles/Vol] 3.1 mmol/L below low threshold 3.5 - 5.3 [facility] Work Phone: [phone] Protein [Mass/Vol] 6.8 g/dL 6.4 - 8.2 [facility] Work Phone: [phone] Sodium [Moles/Vol] 136 mmol/L 136 - 145 [facility] Work Phone: [phone] Urea nitrogen [Mass/Vol] 12 mg/dL 6 - 23 [facility] [facility] Work Phone: Laboratory - Hematology and Cell countson 03-09-2022 Basophils/100 WBC (Bld) 0.0 % 0.0 - 2.0 [facility] Work Phone: Lymphocytes/100 WBC (Bld) 36.0 % See Below [facility] Work Phone: Comment on above: Reference Range: 13. 0 - 44.0 Monocytes/100 WBC (Bld) 4.0 % 2.0 - 10.0 [facility] Work Phone: Laboratory - Microbiology an d Antimicrobial susceptibilityon 03-09-2022 RSV RNA WILEY+probe Ql (Unsp spec) Not detected See Below [facility] Work Phone: Comment on above: SOURCE: Nasal, Nasop haryngealReference Range: Not Detected Respiratory virus testing is performed routinely by PCR for Influenza A/B and RSV. Not Detected results do not preclude Influenza A/B or RSV infections since the adequacy of sample collection or low viral burden may impact the clinical sensitivity of this test method. No Panel Informationon 03-09 83 {mL/min/1.73m2} >90 [facility] Work Phone: Comment on above: CALCULATIONS OF ASHLEY MATED GFR ARE PERFORMED USING THE 2020 CKD-EPI STUDY REFIT EQUATION WITHOUT THE RACE VARIABLE FOR THE IDMS-TRACEABLE CREATININE METHODS.https://jasn.asnjournals.org/content/early/A SN.2939614324 0.75 {x10E9/L} above high threshold See Below [facility] Work Phone: Comment on above: Reference Range: 0.0 0 - 0.50 0.00 {x10E9/L} See Below [facility] Work Phone: Comment on above: Reference Range: 0.0 0 - 0.10 0.09 {x10E9/L} See Below [facility] Work Phone: Comment on above: Reference Range: 0.0 0 - 0.70 0.38 {x10E9/L} See Below [facility] Work Phone: Comment on above: Reference Range: 0.1 0 - 1.00 3.38 {x10E9/L} See Below [facility] Work Phone: Comment on above: Reference Range: 1.2 0 - 4.80 4.79 {x10E9/L} See Below [facility] Work Phone: Comment on above: Reference Range: 1.2 0 - 7.00 Reference Range: 1.2 0 - 7.70 8.0 % 0.0 - 2.0 [facility] Work Phone: 1.0 % 0.0 - 6.0 [facility] Work Phone: 51.0 % See Below [facility] Work Phone: Comment on above: Reference Range: 40. 0 - 80.0 Percent differential counts (%) should be interpreted in the context of the absolute cell counts (cells/L). Few [facility] Work Phone: Mild [facility] Work Phone: See Below [facility] Work Phone: 2499 {ng/mL_FEU} Abnormal < or = 500 [facility] Work Phone: Comment on above: The VTE [...] sensitivity method 7 ng/L 0 - 13 [facility] Work Phone: Comment on above: .Less than [...] performed using a different testing methodology at [facility] than at other [facility]. Direct result comparisons should only be made within the same method. Office Visiton 03-05-2022 Follow-up visit Diagnoses/Problems Encounter for preventive health examination (V70.0) (Z00.00) Esophagitis (530.10) (K20.90) Abnormal CT scan, esophagus (793.4) (R93.3) Orders Abnormal CT scan, esophagus, Esophagitis Gastroenterology Referral Evaluation and Treatment Evaluate AND Treat Status: Hold For - Scheduling Requested for: [id number] Esophagitis Start: Omeprazole 40 MG Oral Capsule Delayed Release; TAKE 1 CAPSULE Daily Health Maintenance Start: Cetirizine HCl - 10 MG Oral Tablet; TAKE 1 TABLET DAILY DIRECTED Complete Blood Count + Differential; Status:Active; Requested for:[id number]; Start: Fluticasone Propionate 50 MCG/ACT Nasal Suspension (Flonase Allergy Relief); USE 2 SPRAY(S) IN EACH NOSTRIL TWICE DAILY Comprehensive Metabolic Panel; Status:Active; Requested for:54Htm9056; Renew: IBU 800 MG Oral Tablet; TAKE 1 TABLET 3 times daily PRN Lipid Panel; Status:Active; Requested for:13Yyj4589; TSH WITH REFLEX TO FREE T4 IF ABNORMAL; Status:Active; Requested for:10Dph9684; Vitamin B12, Serum; Status:Active; Requested for:81Tqw7748; Herpes simplex virus (HSV) infection Renew: valACYclovir [...] 1 TABLET DAILY. Vitals Vital Signs Recorded: 26Lns2532 11:39AM Heart Rate78 Qahtssnk108, LUE, Sitting Nbogjyehf93, LUE, Sitting Height5 ft 5 in Ufqjys847 lb 2 oz BMI Cfxhadhisg78.64 kg/m2 BSA Calculated1.86 Tobacco Useb) No Falls Screening (Age 18+)a) No falls within the last year O2 Aiymianawg13 Physical Exam General: Alert and oriented, No acute distress. Respiratory: Lungs are clear to auscultation, Respirations are non-labored, Breath sounds (more content not included)... Normal [employer] Tobacco Screening.on 022 Fall risk assessment a) No falls within the last year [facility] Work Phone: Tobacco use status CPHS b) No [facility] Work Phone: Clinical Event [...] RN Post Discharge Registered Nurse Contact # [phone] Electronic Signatures: Kailey Aguilar (RN) (Signed 03-Mar-2022 14:22) Authored: Clinical Event Note Last Updated: 03-Mar-2022 14:22 by Kailey Aguilar (RN) Normal [facility] BASIC METABOLIC PANELon - Anion gap [Moles/Vol] 13 mmol/L Normal 10 - 20 [facility] Comment on above: Performed By: #### B MP #### [address] [address] Calcium [Mass/Vol] 9.4 mg/dL Normal 8.6 - 10.3 [facility] Comment on above: Performed By: #### B MP #### [address] [address] Chloride [Moles/Vol] 101 mmol/L Normal 98 - 107 [facility] Comment on above: Performed By: #### B MP #### [address] [address] Creatinine [Mass/Vol] 0.81 mg/dL Normal 0.50 - 1.05 [facility] Comment on above: Performed By: #### B MP #### [address] [address] GFR/1.73 sq M.predicted among non-blacks MDRD (S/P/Bld) [Vol rate/Area] 89 mL/min/{1.73_m2} Normal >90 [facility] Comment on above: Result Comment: CALC ULATIONS OF ESTIMATED GFR ARE PERFORMED USING THE 2020 CKD-EPI STUDY REFIT EQUATION WITHOUT THE RACE VARIABLE FOR THE IDMS-TRACEABLE CREATININE METHODS. https://jasn.asnjournals.org/content//ASN.88823 30547 Performed By: #### B MP #### [address] [address] Glucose [Mass/Vol] 105 mg/dL High 74 - 99 [facility] Comment on above: Performed By: #### B MP #### [address] [address] HCO3 (Bld) [Moles/Vol] 26 mmol/L Normal 21 - 32 [facility] Comment on above: Performed By: #### B MP #### [address] [address] Potassium [Moles/Vol] 4.0 mmol/L Normal 3.5 - 5.3 [facility] Comment on above: Result Comment: MILD HEMOLYSIS DETECTED. The result may be falsely elevated due to hemolysis or other interferents. Clinical correlation is recommended. Repeat testing may be considered. Performed By: #### B MP #### [address] [address] Sodium [Moles/Vol] 136 mmol/L Normal 136 - 145 [facility] Comment on above: Performed By: #### B MP #### [address] [address] Urea nitrogen [Mass/Vol] 13 mg/dL Normal 6 - 23 [facility] Comment on above: Performed By: #### B MP #### [address] [address] CBCon 03-02-2022 Erythrocyte distribution width (RBC) [Ratio] 12.1 % Normal 11.5 - 14.5 [facility] Comment on above: Performed By: #### B MP #### [address] [address] Hematocrit (Bld) [Volume fraction] 38.4 % Normal 36.0 - 46.0 [facility] Comment on above: Performed By: #### B MP #### [address] [address] Hemoglobin (Bld) [Mass/Vol] 12.9 g/dL Normal 12.0 - 16.0 [facility] Comment on above: Performed By: #### B MP #### [place] [id number] MCHC (RBC) [Mass/Vol] 33.6 g/dL Normal 32.0 - 36.0 [facility] Comment on above: Performed By: #### B MP #### [place] [id number] MCV (RBC) [Entitic vol] 96 fL Normal 80 - 100 [facility] Comment on above: Performed By: #### B MP #### [place] [id number] Platelets (Bld) [#/Vol] 164 10*3/uL Normal 150 - 450 [facility] Comment on above: Performed By: #### B MP #### [place] [id number] RBC 3.99 x10E12/L Low 4.00 - 5.20 [facility] Comment on above: Performed By: #### B MP #### [place] [id number] WBC (Bld) [#/Vol] 7.2 10*3/uL Normal 4.4 - 11.3 [facility] Comment on above: Performed By: #### B MP #### [place] [id number] CORONAVIRUS 2019 BY PCRon SARS-CoV-2 (COVID-19) RNA WILEY+probe Ql (Unsp spec) Not detected Normal Not Detected [facility] Comment on above: Result Comment: . This test has received FDA Emergency Use Authorization (EUA) and has been verified by [facility]. This test is only authorized for the duration of time that circumstances exist to justify the authorization of the emergency use of in vitro diagnostic tests for the detection of SARS-CoV-2 virus and/or diagnosis of COVID-19 infection under section 564(b)(1) of the Act, 21 U.S.C. 360bbb-3(b)(1), unless the authorization is terminated or revoked sooner. [facility] is certified under CLIA-88 as qualified to perform high complexity testing. Testing is performed in the [facility] laboratory located at [address] [place] [address]. SARS-CoV-2/Flu/RSV Multiplex Test: Fact sheet for providers: https://www.fda.gov/media/180572/download Fact sheet for patients: https://www.fda.gov/media/180129/download Performed By: #### C OV19 #### [place] [address] Lab Specimen Source Nasal, Nasopharyngeal Normal [facility] Comment on above: Performed By: #### C OV19 #### [place] [address] CT Neck with Contraston 02-13 CT Neck W contrast IV Normal [facility] Work Phone: Covid 19 Resultson 2 SARS-CoV-2 [...] You may also be contacted by the [facility] of [facility] to see if any of [...] or Naproxen (Aleve) can also be used. Nqly-oii-ytqrazc cough and cold medicines can be used according to the instructions on the package. Some hmzd-doa-kzllzio medicines also contain acetaminophen. Make sure you [...] water are not available, use alcohol-based hand kitchen steward. Avoid touching your eyes, nose, and mouth [...] 24 sang (more content not included)... Normal [facility] GROUP A STREP,PCRon 03-02-20 22 GROUP A STREP,PCR Not detected Normal Not Detected [facility] Comment on above: Result Comment: This test was performed utilizing an FDA-cleared rapid nucleic acid amplification by PCR to qualitatively detect Group A Streptococci from throat swab specimens without the need for culture confirmation of negative results. Performed By: #### B MP #### [place] [address] Lab Specimen Source Throat Normal [facility] Comment on above: Performed By: #### B MP #### [address] [address] HCG, Beta Quantitativeon HCG.beta subunit Qn 2 m[IU]/mL [facility] Work Phone: Comment on above: .Total HCG measureme nt is performed using the Mary Mitch AccessImmunoassay which detects intact HCG and free beta HCG subunit. .This test is not indicated for use as a tumor marker.HCG testing is performed using a different test methodology at [facility] than other [facility]. Direct result comparisonshould only be made within the same method. REF VALUESNON FEMALE <5MALES <5 HCG,BETA-QUANTITATIVEon 02-13 HCG,BETA-QUANTITATIVE 2 mIU/mL Normal [facility] Comment on above: Result Comment: . Total HCG measurement is performed using the Mary [place] Access Immunoassay which detects intact HCG and free beta HCG subunit. . This test is not indicated for use as a tumor marker. HCG testing is performed using a different test methodology at [facility] than other [facility]. Direct result comparison should only be made within the same method. REF VALUES NON FEMALE <5 MALES <5 Performed By: #### B MP #### [address] [address] INFLUENZA A + B PCRon 2021 INFLUENZA A, PCR Not detected Normal Not Detected [facility] Comment on above: Result Comment: Resp iratory virus testing is performed routinely by PCR for Influenza A/B and RSV. Not Detected results do not preclude Influenza A/B or RSV infections since the adequacy of sample collection or low viral burden may impact the clinical sensitivity of this test method. Performed By: #### I NFLP #### [address] [address] INFLUENZA B, PCR Not detected Normal Not Detected [facility] Comment on above: Result Comment: Resp iratory virus testing is performed routinely by PCR for Influenza A/B and RSV. Not Detected results do not preclude Influenza A/B or RSV infections since the adequacy of sample collection or low viral burden may impact the clinical sensitivity of this test method. Performed By: #### I NFLP #### [place] [id number] Lab Specimen Source Nasal, Nasopharyngeal [facility] Comment on above: Performed By: #### I NFLP #### [place] [id number] INFLUENZA A/B, COVID 2019 PC R,SYMPTOMATICon 03-02-2022 INFLUENZA A, PCR Canceled [facility] Comment on above: Order Comment: TEST INFLUENZA [...] method. Performed By: #### B MP #### [place] [address] INFLUENZA B, PCR Canceled [facility] Comment on above: Order Comment: TEST INFLUENZA A/B, COVID 2019 PCR,SYMPTOMATIC WAS CANCELLED, :21 NEEDS FLU ONLY. Result Comment: Resp iratory virus testing is performed routinely by PCR for Influenza A/B and RSV. Not Detected results do not preclude Influenza A/B or RSV infections since the adequacy of sample collection or low viral burden may impact the clinical sensitivity of this test method. Performed By: #### B MP #### [place] [id number] SARS-CoV-2 (COVID-19) RNA WILEY+probe Ql (Unsp spec) Canceled [facility] Comment on above: Order Comment: TEST INFLUENZA A/B, COVID 2019 PCR,SYMPTOMATIC WAS CANCELLED, 200:21 NEEDS FLU ONLY. Result Comment: . This test has received FDA Emergency Use Authorization (EUA) and has been verified by [facility]. This test is only authorized for the duration of time that circumstances exist to justify the authorization of the emergency use of in vitro diagnostic tests for the detection of SARS-CoV-2 virus and/or diagnosis of COVID-19 infection under section 564(b)(1) of the Act, 21 U.S.C. 360bbb-3(b)(1), unless the authorization is terminated or revoked sooner. [facility] is certified under CLIA-88 as qualified to perform high complexity testing. Testing is performed in the [facility] laboratory located at [address] [place] [address]. SARS-CoV-2/Flu/RSV Multiplex Test: Fact sheet for providers: https://www.fda.gov/media/835121/download Fact sheet for patients: https://www.fda.gov/media/669454/download Performed By: #### B MP #### [place] [address] Lab Specimen Source Nasal, Nasopharyngeal Normal [facility] Comment on above: Order Comment: TEST INFLUENZA A/B, COVID 2019 PCR,SYMPTOMATIC WAS CANCELLED, 200:21 NEEDS FLU ONLY. Performed By: #### B MP #### [place] [address] Laboratory - Chemistry and C hemistry - [...] Phone: Creatinine [Mass/Vol] 0.81 mg/dL See Below [facility] Work Phone: Comment on above: Reference Range: 0.5 0 - 1.05 Glucose [Mass/Vol] 105 mg/dL above high threshold 74 - 99 [facility] Work Phone: Potassium [Moles/Vol] 4.0 mmol/L 3.5 - 5.3 [facility] Work Phone: Comment on above: MILD HEMOLYSIS DETEC HOLLY. The result may be falsely elevated due tohemolysis or other interferents. Clinical correlation is recommended.Repeat testing may be considered. Sodium [Moles/Vol] 136 mmol/L 136 - 145 [facility] Work Phone: Urea nitrogen [Mass/Vol] 13 mg/dL 6 - 23 [facility] Work Phone: Laboratory - Hematology and Cell countson 03-02-2022 Erythrocyte distribution width (RBC) [Ratio] 12.1 % See Below [facility] Work Phone: Comment on above: Reference Range: 11. 5 - 14.5 Hematocrit (Bld) [Volume fraction] 38.4 % See Below [facility] Work Phone: Comment on above: Reference Range: 36. 0 - 46.0 Hemoglobin (Bld) [Mass/Vol] 12.9 g/dL See Below [facility] Work Phone: Comment on above: Reference Range: 12. 0 - 16.0 MCHC (RBC) [Mass/Vol] 33.6 g/dL See Below - [facility] Work Phone: Comment on above: Reference Range: 32. 0 - 36.0 MCV (RBC) [Entitic vol] 96 fL 80 - 100 [facility] Work Phone: Platelets (Bld) [#/Vol] 164 10*3/uL 150 - 450 [facility] Work Phone: RBC (Bld) [#/Vol] 3.99 {x10E12/L} below low threshold See Below [facility] [facility] Work Phone: Comment on above: Reference Range: 4.0 0 - 5.20 WBC (Bld) [#/Vol] 7.2 10*3/uL 4.4 - 11.3 [facility] [employer] [facility] [place] Work Phone: NR CT NECK WITH CONTRASTon 1 05-03-[address] NECK WITH CONTRAST Patient Name: IRENE LOPEZ STUDY: CT NECK WITH CONTRAST; 03/02/2022 2:20 am INDICATION: sore throat, fever, rule out abscess . COMPARISON: None. ACCESSION NUMBER(S): [id number] ORDERING CLINICIAN: FANNY MCKEON TECHNIQUE: Axial CT [...] examination. Electronically signed by: MINNIE AVERY MD [facility] No Panel Informationon 03-02 89 {mL/min/1.73m2} >90 -[facility] reena [employer] [facility] Work Phone: Comment on above: CALCULATIONS OF ASHLEY MATED GFR ARE PERFORMED USING THE 2020 CKD-EPI STUDY REFIT EQUATION WITHOUT THE RACE VARIABLE FOR THE IDMS-TRACEABLE CREATININE METHODS.https://jasn.asnjournals.org/content/early//A SN.7245253530 Not detected See Below -[employer] [employer] [facility] [facility] Work Phone: Comment on [...] test method. Provider Note - ED v3on 02-13 Provider Note - ED v3 Provider Note: [...] not preclude Influenza (more content not included)... [facility] Risk Screen - Adult Emergenc yon 03-02-2022 Risk Screen - Adult Emergency Preferred Language: Preferred Language: Preferred Language for Discussing Health Care (patient/designee)[place] Patient Preferred Pharmacy: Patient Preferred Pharmacy Statement: [...] instruction; written material Cultural Considerationsnone Developmental Considerationsnone Episcopal Considerationsnone Learning Assessment (Other Learner): Learning Assessment (Other Learner): Other learner availableno Pressure Injury/TB/Substance: Pressure Injury: Do you have a coughno Smoking Statusformer smoker Alcohol Useoccasionally Drug Usedenies Drug 2 Usedenies Admission Risk Screen: Significant IndicatorsComplete CAGE: CAGE: Is this an injured patient at a Trauma Center ([facility]/[place]/ [place]): no Electronic Signatures: Virgen Doty (RASHID LOVEN) (Signed 01-Mar-2022 23:53) Authored: Preferred Language, Patient Preferred Pharmacy, Advanced Directives, Family Violence Adult, Learning Assessment (Patient), Learning Assessment (Other Learner), Pressure Injury/TB/Substance, Pressure Injury, CAGE Last Updated: 01-Mar-2022 23:53 by Virgen Doty (RASHID LOVEN) [facility] Triage - EDon 03-02-2022 Triage - ED [...] BMI (kg/m2): 32.764 Calculated BSA (m2) 1.82 Mary Esther Coma Scale: Best Eye Response: (E4) spontaneous Best Motor Response: (M6) obeys commands Best Verbal Response: (V5) oriented 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 Patient has homicidal thoughts: no [...] History Reviewedyes Electronic Signatures: Virgen Doty (RASHID RAMIREZ) (Signed 02-Mar-2022 01:27) Authored: Quick Triage, Risk Screens, Pain, Travel History, Chart Review, Scores, Past Medical History Last Updated: 02-Mar-2022 01:27 by Virgen Doty (RASHID RAMIREZ) Normal [facility] Coronavirus 2019 RNA by PCR, Symptomaticon 03-01-2022 Coronavirus 2019 RNA by PCR, Symptomatic Not detected Normal See Below [facility] Work Phone: Comment on above: SOURCE: Nasal, Nasop haryngealReference Range: Not Detected.This test has received [facility] Emergency Use Authorization (EUA) and has been verified by [facility]. This test is only authorized for the duration of time that circumstances exist to justify the authorization of the emergency use of in vitro diagnostic tests for the detection of SARS-CoV-2 virus and/or diagnosis of COVID-19 infection under section 564(b)(1) of the Act, 21 U.S.C. 360bbb-3(b)(1), unless the authorization is terminated or revoked sooner. [facility] is certified under CLIA-88 as qualified to perform high complexity testing. Testing is performed in the [facility] laboratory located at [address] [place] [address].SARS-CoV-2/Flu/RSV Multiplex Test: Fact sheet for providers: https://www.fda.gov/media/849602/downloadFact sheet for patients: https://www.fda.gov/media/415296/download GROUP A STREP, PCRon 022 S. pyogenes Ag Ql (Throat) Not detected See Below [facility] Work Phone: Comment on above: SOURCE: [...] Last menstrual period start date Hysterectomy 2019 [employer] Work Phone: Laboratory - Cytologyon 10-14 Cytology report Cyto stain.thin prep Doc (Cvx/Vag) [employer] Work Phone: PROFILE SHAPER OPERATOR - Office Visiton 10-14 PROFILE SHAPER OPERATOR - Office Visit Diagnoses/Problems Assessed LGSIL Pap smear of vagina (795.13) (R87.622) Orders PAP RECTIFICATION PRINTER, Cytology; Status:In Progress - Specimen/Data Collected,Retrospective Authorization; Done: [id number] Last Menstrual Period (LMP): : Hysterectomy 2019 [...] 1 TABLET DAILY. 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) Orders Breast cancer screening, high risk patient, Dense breast tissue MRI Breast Bilateral with contrast fast screening (SELF PAY); Status:Hold For - Scheduling; Requested for:[id number]; Perform:[facility]; Due:[id number];Ordered; For:Breast cancer screening, high risk patient, Dense breast tissue; Ordered By:Kathleen Gardner; Radiologist to Determine Optimal Study : Y Does the patient have a Cochlear Implant, Pacemaker, Defibrilator, Pacing Wire, Brain Aneurysm Clip, Implanted Nerve or Bone Graft Simulator, Implanted Breast Tissue Sternman, Glucose Monitor, or Neulasta Device? : No [...] November. I have recommended she see our seal skinner in our high risk prevention clinic at [...] pleasant 45- yo female self-referred to the [facility] for surgical consultation for risk [...] 06-12-2021 MG Breast Screening Normal [facility] [employer] Work Phone: LMPon 04-17-2021 Last menstrual period start date 2018 [facility] [employer] Work Phone: Laboratory - Cytologyon 03-16 Cytology report Cyto stain.thin prep Doc (Cvx/Vag) [facility] [employer] Work Phone: Tobacco Screening.on 022 Last menstrual period start date 2018 [facility] [employer] Work Phone: Tobacco use status CPHS b) No [facility] [employer] Work Phone: NOVEL CORONAVIRUSon 03-16-19 PERFORMED BY PAPITO [facility] Comment on above: Performed By: #### C COVID #### [place] [address] SARS-CoV-2 (COVID-19) RNA WILEY+probe Ql (Unsp spec) Not detected Normal NOT DETECTED [facility] Comment on above: Result Comment: Nega tive [...] #### C COVID #### [place] [address] NARRATIVE This test was perfor med using isothermal WILEY and has been approved as Emergency Use Authorization (EUA) for the qualitative detection otSICL-BqG-0 nucleic acid. [facility] Comment on above: Performed By: #### C COVID #### [place] [address] SARS-COV-2 RAPIDon 2 Winch Stripper Cyto stain Nom (Cvx/Vag) [ID] PAPITO [facility] NARRATIVE -1 This test was perfor med using isothermal WILEY and has been approved as Emergency Use Authorization (EUA) for the qualitative detection gvAJYR-LmP-6 nucleic acid. [facility] SARS-CoV-2 (COVID-19) RNA WILEY+probe Ql (Unsp spec) Not detected NOT DETECTED [facility] Comment on above: Negative results do [...] patient is critically ill or clinically deteriorating. [facility] LMPon 01-04-2021 Last menstrual period start date HYSTER [facility] [employer] Work Phone: No Panel Informationon 01-04 [facility] [address] [employer] Work Phone: Coronavirus 2019 RNA by PCR, Symptomaticon 11-14-2020 Date and time of symptom onset [id number] [facility] [facility] Work Phone: Coronavirus 2019 RNA by PCR, Symptomatic Detected Abnormal See Below [facility] [employer] [facility] Work Phone: Comment on [...] make patient management decisions.Fact sheet for providers: https://www.fda.gov/media/097296/downloadFact sheet for patients: https://www.fda.gov/media/454719/downloadThis test has received FDA Emergency Use Authorization (EUA) and has been verified by [facility] ([facility]). This test is only authorized for the duration of time that circumstances exist to justify the authorization of the emergency use of in vitro diagnostic tests for the detection of SARS-CoV-2 virus and/or diagnosis of COVID-19 infection under section 564(b)(1) of the Act, 21 U.S.C. 360bbb-3(b)(1), unless the authorization is terminated or revoked sooner. [facility] is certified under CLIA-88 as qualified to perform high complexity testing. Testing is performed in the [facility] laboratories located at [address] [place] [address].COVID CALLED TO CARRIE ARROYO, 11/15/2020 11:18 Tobacco Screening.on 021 Tobacco use status CP b) No [employer] Work Phone: MA Mamm Screen w/CAD if perf and 3D Bilon 06-10-2018 Bilirubin.direct [Mass/Vol] Exam Date/Time: 06/09/2018 13:30 EDT Reason for Exam: PELVIC PAIN BASELINE SCREENING 3D/PRANAV;Screening Report STUDY: Digital mammography screening with pranav; 06/09/2018 1:30 pm ACCESSION NUMBER(S): [id number] ORDERING CLINICIAN: Laura Phelps INDICATION: Screening. COMPARISON: [...] Category 1-Negative Recommendation: Normal interval follow-up Normal [facility] US Pelvis Non-OB Completeon 06-09-2018 US Pelvis Non-OB Complete Exam Date/Time: 06/09/2018 13:35 EDT Reason for Exam: PELVIC PAIN BASELINE SCREENING 3D/PRANAV;Other (please specify) Report STUDY: US Pelvis Non-OB Complete; US Transvaginal Non-OB; 06/09/2018 1:35 pm INDICATION: Menometrorrhagia COMPARISON: None. ACCESSION NUMBER(S): [id number]; [id number] ORDERING CLINICIAN: Laura Phelps TECHNIQUE: Multiple multiplanar [...] Signed by: Valdo Calero MD Technologist: MATT [facility] US Transvaginal Non-OBon US Transvaginal Non-OB Exam Date/Time: 06/09/2018 13:35 EDT Reason for Exam: PELVIC PAIN;Other (please specify) Report STUDY: US Pelvis Non-OB Complete; US Transvaginal Non-OB; 06/09/2018 1:35 pm INDICATION: Menometrorrhagia COMPARISON: None. ACCESSION NUMBER(S): [id number]; [id number] ORDERING CLINICIAN: Laura Phelps TECHNIQUE: Multiple multiplanar [...] Signed by: Valdo Calero MD Technologist: MATT [facility] IGP W/hpv Rfx [id number] 03-24 Diagnosis: See Ref Lab Report [facility] Comment on above: Performed By: #### 1 [id number] #### [employer] Outs Subsection [address] [place] [address] Lab Miscellaneouson 03-15-20 18 Status See Ref Lab Report [facility] Comment on above: Order Comment: famil y h/o breast cancer, pt linh bring the kit Performed By: #### 1 [id number] #### JM Send Outs Subsection [address] [place] [address] Test Name myriad lab draw [facility] Comment on above: Order Comment: famil y h/o breast cancer, pt linh bring the kit Performed By: #### 1 [id number] #### JM Send Outs Subsection [address] [place] [address] Pathology ([facility])on 03-15-2018 Pathology ([facility]) FINAL GYNECOLOGIC CYTOLOGY [id number] ADEQUACYSatisfactory for Evaluation. Endocervical cells/transformation zone componentpresent.Sample is obscured by blood.Squamous metaplastic cells are identified.GENERAL CATEGORIZATIONNegative for Intraepithelial Lesion or MalignancyCOMMENTSample has been treated with glacial acetic acid for excessive blood, debris,inflammation and/or lubricant.CLINICAL HISTORYLMP: 03/15/2018SPECIMEN(A) SCREENING CERVICAL/ENDOCERVICAL THIN PREP VIALPerformed at [facility], [address] [place] [address] [id number] by: Signed Out by: DAVID PATEL [employer]et [employer] Reported: 03/23/2018 Normal [facility] Healthcare Comment on above: Performed By: #### G YN ####[facility] [address] [place] [address] Vital Signs Date Time Vital Sign Value Performing Clinician Facility 11-07-2024 08:15-0400 Body height 165.1 cm Amanda Osborne MD Work Phone: [facility] 11-07-2024 08:15-0400 Body mass index (BMI) [Ratio] 30.45 kg/m2 Amanda Osborne MD Work Phone: [facility] 11-07-2024 08:15-0400 Body weight 83.01 kg Amanda Osborne MD Work Phone: [facility] 11-07-2024 08:15-0400 Diastolic blood pressure 78 mm[Hg] Amanda Osborne MD Work Phone: [facility] 11-07-2024 08:15-0400 Heart rate 72 /min Amanda Osborne MD Work Phone: [facility] 11-07-2024 08:15-0400 Systolic blood pressure 110 mm[Hg] Amanda Osborne MD Work Phone: [facility] 11-03-2024 08:27-0400 Body height 165.[address] Amanda Osborne MD Work Phone: [facility] 11-03-2024 08:27-0400 Body mass index (BMI) [Ratio] 30.1 kg/m2 Dr. Amanda Osborne MD Work Phone: [facility] 11-03-2024 08:27-0400 Body weight 82.[address] Amanda Osborne MD Work Phone: [facility] 11-03-2024 08:27-0400 Diastolic blood pressure 78 mm[Hg] Dr. Amanda Osborne MD Work Phone: [facility] 11-03-2024 08:27-0400 Heart rate 89 /min Dr. Amanda Osborne MD Work Phone: [facility] 11-03-2024 08:27-0400 Respiratory rate 17 /min Dr. Amanda Osborne MD Work Phone: [facility] 11-03-2024 08:27-0400 SaO2% (BldA) [Mass fraction] 93 % Dr. Amanda Osborne MD Work Phone: 4(587)047-936124 [place] [address] 11-03-2024 08:27-0400 Systolic blood pressure 125 mm[Hg] Dr. Amanda Osborne MD Work Phone: 2(819)991-456937 [place] [address] 10-13-2024 15:39-0400 Body height 165.[address] Amanda Osborne MD Work Phone: 8(811)256-455237 [place] [address] 10-13-2024 15:39-0400 Body temperature 98.1 [degF] Dr. Amanda Osborne MD Work Phone: 9(713)392-021537 [place] [address] 10-13-2024 15:39-0400 Diastolic blood pressure 71 mm[Hg] Dr. Amanda Osborne MD Work Phone: 9(149)472-485337 [place] [address] 10-13-2024 15:39-0400 Heart rate 86 /min Dr. Amanda Osborne MD Work Phone: 9(813)132-182337 [place] [address] 10-13-2024 15:39-0400 Respiratory rate 18 /min Dr. Amanda Osborne MD Work Phone: 8(137)813-232337 [place] [address] 10-13-2024 15:39-0400 SaO2% (BldA) [Mass fraction] 93 % Dr. Amanda Osborne MD Work Phone: 9(572)216-123724 [place] [address] 10-13-2024 15:39-0400 Systolic blood pressure 115 mm[Hg] Dr. Amanda Osborne MD Work Phone: 4(616)183-187124 [place] [address] 09-01-2024 10:00-0400 Diastolic blood pressure 79 mm[Hg] Dr. Amanda Osborne MD Work Phone: 2(587)757-009424 [place] [address] 09-01-2024 10:00-0400 Respiratory rate 18 /min Dr. Amanda Osborne MD Work Phone: 2(266)286-424724 [place] [address] 09-01-2024 10:00-0400 Systolic blood pressure 121 mm[Hg] Dr. Amanda Osborne MD Work Phone: [facility] 08-25-2024 10:23-0400 Diastolic blood pressure 70 mm[Hg] Dr. Amanda Osborne MD Work Phone: 3(710)770-526724 [place] [address] 08-25-2024 10:23-0400 Heart rate 71 /min Dr. Amanda Osborne MD Work Phone: 5(160)291-978324 [place] [address] 08-25-2024 10:23-0400 Respiratory rate 18 /min Dr. Amanda Osborne MD Work Phone: 5(556)192-390124 [place] [address] 08-25-2024 10:23-0400 SaO2% (BldA) [Mass fraction] 91 % Dr. Amanda Osborne MD Work Phone: 3(670)439-865624 [place] [address] 08-25-2024 10:23-0400 Systolic blood pressure 114 mm[Hg] Dr. Amanda Osborne MD Work Phone: 0(796)907-861624 [place] [address] 08-18-2024 16:23-0400 Body height 165.[address] Amanda Osborne MD Work Phone: 7(264)858-210824 [place] [address] 08-18-2024 16:23-0400 Diastolic blood pressure 72 mm[Hg] Dr. Amanda Osborne MD Work Phone: 2(725)392-530424 [place] [address] 08-18-2024 16:23-0400 Heart rate 70 /min Dr. Amanda Osborne MD Work Phone: 8(837)137-695024 [place] [address] 08-18-2024 16:23-0400 Respiratory rate 18 /min Dr. Amanda Osborne MD Work Phone: 8(772)921-266224 [place] [address] 08-18-2024 16:23-0400 SaO2% (BldA) [Mass fraction] 94 % Dr. Amanda Osborne MD Work Phone: 8(911)645-653924 [place] [address] 08-18-2024 16:23-0400 Systolic blood pressure 114 mm[Hg] Dr. Amanda Osborne MD Work Phone: 5(348)127-629037 [place] [address] 08-17-2024 15:10-0400 Body temperature 98.4 [degF] Dr. Amanda Osborne MD Work Phone: 8(875)780-025837 [place] [address] 08-17-2024 15:10-0400 Diastolic blood pressure 61 mm[Hg] Dr. Amanda Osborne MD Work Phone: 0(955)206-690137 [place] [address] 08-17-2024 15:10-0400 Heart rate 80 /min Dr. Amanda Osborne MD Work Phone: 3(078)097-782337 [place] [address] 08-17-2024 15:10-0400 Respiratory rate 16 /min Dr. Amanda Osborne MD Work Phone: 9(232)995-359137 [place] [address] 08-17-2024 15:10-0400 SaO2% (BldA) [Mass fraction] 95 % Dr. Amanda Osborne MD Work Phone: 5(738)043-955537 [place] [address] 08-17-2024 15:10-0400 Systolic blood pressure 104 mm[Hg] Dr. Amanda Osborne MD Work Phone: 8(775)543-862837 [place] [address] 08-17-2024 13:00-0400 Inhaled oxygen flow rate 2 L/min Dr. Amanda Osborne MD Work Phone: 2(127)025-591237 [place] [address] 08-17-2024 06:29-0400 Body height 165.[address] Amanda Osborne MD Work Phone: 9(283)661-724437 [place] [address] 08-17-2024 06:29-0400 Body mass index (BMI) [Ratio] 29.7 kg/m2 Dr. Amanda Osborne MD Work Phone: 2(545)283-833237 [place] [address] 08-17-2024 06:29-0400 Body weight [address] Amanda Osborne MD Work Phone: 1(701)034-043437 [place] [address] 07-28-2024 15:03-0400 Body height 165.[address] Amanda Osborne MD Work Phone: 1(061)874-422437 [place] [address] 07-28-2024 15:03-0400 Body temperature 97.8 [degF] Dr. Amanda Osborne MD Work Phone: 0(666)079-402061 [place] [address] 07-28-2024 15:03-0400 Diastolic blood pressure 69 mm[Hg] Dr. Amanda Osborne MD Work Phone: 1(872)641-719724 [place] [address] 07-28-2024 15:03-0400 Heart rate 96 /min Dr. Amanda Osborne MD Work Phone: 4(091)753-915224 [place] [address] 07-28-2024 15:03-0400 Respiratory rate 18 /min Dr. Amanda Osborne MD Work Phone: 1(548)900-812624 [place] [address] 07-28-2024 15:03-0400 SaO2% (BldA) [Mass fraction] 93 % Dr. Amanda Osborne MD Work Phone: 6(594)637-791624 [place] [address] 07-28-2024 15:03-0400 Systolic blood pressure 105 mm[Hg] Dr. Amanda Osborne MD Work Phone: 3(733)679-795924 [place] [address] 07-07-2024 15:45-0400 Diastolic blood pressure 78 mm[Hg] Dr. Amanda Osborne MD Work Phone: 3(803)920-751424 [place] [address] 07-07-2024 15:45-0400 Heart rate 82 /min Dr. Amanda Osborne MD Work Phone: 4(695)321-689224 [place] [address] 07-07-2024 15:45-0400 Respiratory rate 18 /min Dr. Amanda Osborne MD Work Phone: 3(691)303-296624 [place] [address] 07-07-2024 15:45-0400 SaO2% (BldA) [Mass fraction] 94 % Dr. Amanda Osborne MD Work Phone: 8(728)571-459624 [place] [address] 07-07-2024 15:45-0400 Systolic blood pressure 121 mm[Hg] Dr. Amanda Osborne MD Work Phone: 3(892)737-998524 [place] [address] 06-20-2024 08:31-0400 Body mass index (BMI) [Ratio] 28.6 kg/m2 Dr. Amanda Osborne MD Work Phone: [facility] 06-20-2024 08:31-0400 Body temperature 97 [degF] Dr. Amanda Osborne MD Work Phone: [facility] 06-20-2024 08:31-0400 Diastolic blood pressure 65 mm[Hg] Dr. Amanda Osborne MD Work Phone: 7(177)660-984924 [place] [address] 06-20-2024 08:31-0400 Heart rate 72 /min Dr. Amanda Osborne MD Work Phone: 3(751)715-295824 [place] [address] 06-20-2024 08:31-0400 Respiratory rate 18 /min Dr. Amanda Osborne MD Work Phone: 9(045)812-075424 [place] [address] 06-20-2024 08:31-0400 Systolic blood pressure 134 mm[Hg] Dr. Amanda Osborne MD Work Phone: 0(478)009-218024 [place] [address] 06-14-2024 00:38-0400 Body weight 78.[address] Amanda Osborne MD Work Phone: 8(824)060-077924 [place] [address] 06-06-2024 08:57-0400 Body mass index (BMI) [Ratio] 28.6 kg/m2 Dr. Amanda Osborne MD Work Phone: 9(625)093-617724 [place] [address] 06-06-2024 08:57-0400 Body temperature 97 [degF] Dr. Amanda Osborne MD Work Phone: 3(063)153-608824 [place] [address] 06-06-2024 08:57-0400 Diastolic blood pressure 70 mm[Hg] Dr. Amanda Osborne MD Work Phone: 1(277)848-899224 [place] [address] 06-06-2024 08:57-0400 Heart rate 61 /min Dr. Amanda Osborne MD Work Phone: 3(847)672-768924 [place] [address] 06-06-2024 08:57-0400 Respiratory rate 18 /min Dr. Amanda Osborne MD Work Phone: 0(996)276-868624 [place] [address] 06-06-2024 08:57-0400 Systolic blood pressure 131 mm[Hg] Dr. Amanda Osborne MD Work Phone: 6(397)003-502424 [place] [address] 05-16-2024 10:22-0500 Body height 165.[address] Amanda Osborne MD Work Phone: 8(717)403-822137 [place] [address] 05-16-2024 10:22-0500 Body weight 78.[address] Amanda Osborne MD Work Phone: 4(902)018-662437 [place] [address] 05-10-2024 15:28-0500 Body temperature 98.3 [degF] Dr. Amanda Osborne MD Work Phone: 0(204)725-260537 [place] [address] 05-10-2024 15:28-0500 Diastolic blood pressure 76 mm[Hg] Dr. Amanda Osborne MD Work Phone: 5(980)140-560937 [place] [address] 05-10-2024 15:28-0500 Heart rate 82 /min Dr. Amanda Osborne MD Work Phone: 2(462)702-603237 [place] [address] 05-10-2024 15:28-0500 Respiratory rate 18 /min Dr. Amanda Osborne MD Work Phone: 1(088)436-470537 [place] [address] 05-10-2024 15:28-0500 SaO2% (BldA) [Mass fraction] 97 % Dr. Amanda Osborne MD Work Phone: 5(459)370-679737 [place] [address] 05-10-2024 15:28-0500 Systolic blood pressure 157 mm[Hg] Dr. Amanda Osborne MD Work Phone: 6(814)242-638324 [place] [address] 05-06-2024 14:36-0500 Diastolic blood pressure 82 mm[Hg] Dr. Amanda Osborne MD Work Phone: 7(641)294-574237 [place] [address] 05-06-2024 14:36-0500 Heart rate 100 /min Dr. Amanda Osborne MD Work Phone: 4(167)318-457837 [place] [address] 05-06-2024 14:36-0500 Respiratory rate 18 /min Dr. Amanda Osborne MD Work Phone: [facility] 05-06-2024 14:36-0500 SaO2% (BldA) [Mass fraction] 94 % Dr. Amanda Osborne MD Work Phone: [facility] 05-06-2024 14:36-0500 Systolic blood pressure 148 mm[Hg] Dr. Amanda Osborne MD Work Phone: 6(561)224-246424 [place] [address] 04-26-2024 14:59-0500 Body temperature 98.3 [degF] Dr. Amanda Osborne MD Work Phone: 9(236)844-538124 [place] [address] 04-26-2024 14:59-0500 Diastolic blood pressure 77 mm[Hg] Dr. Amanda Osborne MD Work Phone: 6(402)248-995424 [place] [address] 04-26-2024 14:59-0500 Heart rate 73 /min Dr. Amanda Osborne MD Work Phone: 2(200)089-674824 [place] [address] 04-26-2024 14:59-0500 Respiratory rate 18 /min Dr. Amanda Osborne MD Work Phone: 3(879)401-738524 [place] [address] 04-26-2024 14:59-0500 SaO2% (BldA) [Mass fraction] 94 % Dr. Amanda Osborne MD Work Phone: 0(100)865-436424 [place] [address] 04-26-2024 14:59-0500 Systolic blood pressure 126 mm[Hg] Dr. Amanda Osborne MD Work Phone: 8(905)741-013224 [place] [address] 04-19-2024 16:05-0500 Body temperature 98.5 [degF] Dr. Amanda Osbrone MD Work Phone: 8(125)311-767624 [place] [address] 04-19-2024 16:05-0500 Diastolic blood pressure 78 mm[Hg] Dr. Amanda Osborne MD Work Phone: 0(105)190-779724 [place] [address] 04-19-2024 16:05-0500 Heart rate 86 /min Dr. Amanda Osborne MD Work Phone: 0(851)633-142824 [place] [address] 04-19-2024 16:05-0500 Respiratory rate 18 /min Dr. Amanda Osborne MD Work Phone: 3(534)307-777424 [place] [address] 04-19-2024 16:05-0500 SaO2% (BldA) [Mass fraction] 94 % Dr. Amanda Osborne MD Work Phone: 1(022)333-557737 [place] [address] 04-19-2024 16:05-0500 Systolic blood pressure 144 mm[Hg] Dr. Amanda Osborne MD Work Phone: 1(321)348-088437 [place] [address] 04-11-2024 15:07-0500 Body temperature 98.5 [degF] Dr. Amanda Osborne MD Work Phone: 8(839)022-285337 [place] [address] 04-11-2024 15:07-0500 Diastolic blood pressure 79 mm[Hg] Dr. Amanda Osborne MD Work Phone: 1(125)371-573537 [place] [address] 04-11-2024 15:07-0500 Heart rate 75 /min Dr. Amanda Osborne MD Work Phone: 4(760)616-630037 [place] [address] 04-11-2024 15:07-0500 Respiratory rate 18 /min Dr. Amanda Osborne MD Work Phone: 0(841)261-190637 [place] [address] 04-11-2024 15:07-0500 SaO2% (BldA) [Mass fraction] 91 % Dr. Amanda Osborne MD Work Phone: 9(228)299-313537 [place] [address] 04-11-2024 15:07-0500 Systolic blood pressure 144 mm[Hg] Dr. Amanda Osborne MD Work Phone: 3(434)905-335337 [place] [address] 04-07-2024 11:07-0500 Body temperature 98.1 [degF] Dr. Amanda Osborne MD Work Phone: 8(270)719-948937 [place] [address] 04-07-2024 11:07-0500 Diastolic blood pressure 85 mm[Hg] Dr. Amanda Osborne MD Work Phone: 2(564)969-921937 [place] [address] 04-07-2024 11:07-0500 Heart rate 80 /min Dr. Amanda Osborne MD Work Phone: 6(632)149-422324 [place] [address] 04-07-2024 11:07-0500 Respiratory rate 18 /min Dr. Amanda Osborne MD Work Phone: 3(703)112-280524 [place] [address] 04-07-2024 11:07-0500 SaO2% (BldA) [Mass fraction] 91 % Dr. Amanda Osborne MD Work Phone: 5(951)384-145624 [place] [address] 04-07-2024 11:07-0500 Systolic blood pressure 125 mm[Hg] Dr. Amanda Osborne MD Work Phone: 0(302)638-138937 [place] [address] 04-03-2024 10:10-0500 Body temperature 98.8 [degF] Dr. Amanda Osborne MD Work Phone: 8(513)133-261637 [place] [address] 04-03-2024 10:10-0500 Diastolic blood pressure 73 mm[Hg] Dr. Amanda Osborne MD Work Phone: 5(180)382-389624 [place] [address] 04-03-2024 10:10-0500 Heart rate 80 /min Dr. Amanda Osborne MD Work Phone: 9(615)994-760824 [place] [address] 04-03-2024 10:10-0500 Respiratory rate 18 /min Dr. Amanda Osborne MD Work Phone: 3(680)690-658737 [place] [address] 04-03-2024 10:10-0500 SaO2% (BldA) [Mass fraction] 95 % Dr. Amanda Osborne MD Work Phone: 3(708)814-166824 [place] [address] 04-03-2024 10:10-0500 Systolic blood pressure 126 mm[Hg] Dr. Amanda Osborne MD Work Phone: 4(632)021-805937 [place] [address] 04-03-2024 04:13-0500 Body mass index (BMI) [Ratio] 30.7 kg/m2 Dr. Amanda Osborne MD Work Phone: 8(978)433-122524 [place] [address] 04-03-2024 04:13-0500 Body weight 83.[address] Amanda Osborne MD Work Phone: [facility] 04-03-2024 04:10-0500 Inhaled oxygen flow rate 1 L/min Dr. Amanda Osborne MD Work Phone: [facility] 03-30-2024 15:33-0500 Body mass index (BMI) [Ratio] 29.7 kg/m2 Dr. Amanda Osborne MD Work Phone: 7(784)961-874024 [place] [address] 03-30-2024 15:33-0500 Body temperature 98.9 [degF] Dr. Amanda Osborne MD Work Phone: 7(313)713-287024 [place] [address] 03-30-2024 15:33-0500 Body weight 83.[address] Amanda Osborne MD Work Phone: 2(016)258-638558 [address] 03-30-2024 15:33-0500 Diastolic blood pressure 76 mm[Hg] Dr. Amanda Osborne MD Work Phone: 9(242)161-916424 [place] [address] 03-30-2024 15:33-0500 Heart rate 75 /min Dr. Amanda Osborne MD Work Phone: 6(883)157-086924 [place] [address] 03-30-2024 15:33-0500 Respiratory rate 18 /min Dr. Amanda Osborne MD Work Phone: [facility] 03-30-2024 15:33-0500 SaO2% (BldA) [Mass fraction] 91 % Dr. Amanda Osborne MD Work Phone: [facility] 03-30-2024 15:33-0500 Systolic blood pressure 114 mm[Hg] Dr. Amanda Osborne MD Work Phone: [facility] 03-21-2024 08:23-0500 Body height 165.1 cm Amanda Osborne MD Work Phone: [facility] 03-21-2024 08:23-0500 Body mass index (BMI) [Ratio] 30.79 kg/m2 Amanda Osborne MD Work Phone: [facility] 03-21-2024 08:23-0500 Body weight 83.92 kg Amanda Osborne MD Work Phone: [facility] 03-21-2024 08:23-0500 Diastolic blood pressure 78 mm[Hg] Amanda Osborne MD Work Phone: [facility] 03-21-2024 08:23-0500 Heart rate 98 /min Amanda Osborne MD Work Phone: [facility] 03-21-2024 08:23-0500 SaO2% (BldA) [Mass fraction] 95 % Amanda Osborne MD Work Phone: [facility] 03-21-2024 08:23-0500 Systolic blood pressure 138 mm[Hg] Amanda Osborne MD Work Phone: [facility] 03-03-2024 15:02-0500 Body mass index (BMI) [Ratio] 29.7 kg/m2 Dr. Amanda Osborne MD Work Phone: [facility] 03-03-2024 15:02-0500 Body temperature 98.3 [degF] Dr. Amanda Osborne MD Work Phone: [facility] 03-03-2024 15:02-0500 Body weight 83.[address] Amanda Osborne MD Work Phone: [facility] 03-03-2024 15:02-0500 Diastolic blood pressure 77 mm[Hg] Dr. Amanda Osborne MD Work Phone: [facility] 03-03-2024 15:02-0500 Heart rate 71 /min Dr. Amanda Osborne MD Work Phone: [facility] 03-03-2024 15:02-0500 Respiratory rate 18 /min Dr. Amanda Osborne MD Work Phone: [facility] 03-03-2024 15:02-0500 SaO2% (BldA) [Mass fraction] 91 % Dr. Amanda Osborne MD Work Phone: [facility] 03-03-2024 15:02-0500 Systolic blood pressure 120 mm[Hg] Dr. Amanda Osborne MD Work Phone: [facility] 03-01-2024 15:40-0500 Body height 165.1 cm Zenaida Silva MD Work Phone: [facility] 03-01-2024 15:40-0500 Body mass index (BMI) [Ratio] 30.65 kg/m2 Zenaida Silva MD Work Phone: [facility] 03-01-2024 15:40-0500 Body weight 83.55 kg Zenaida Silva MD Work Phone: [facility] 03-01-2024 15:40-0500 Diastolic blood pressure 76 mm[Hg] Zenaida Silva MD Work Phone: [facility] 03-01-2024 15:40-0500 Systolic blood pressure 132 mm[Hg] Zenaida Silva MD Work Phone: [facility] 01-05-2024 08:31-0400 Body height 165.1 cm Amanda Osborne MD Work Phone: [facility] 01-05-2024 08:31-0400 Body mass index (BMI) [Ratio] 30.6 kg/m2 Amanda Osborne MD Work Phone: [facility] 01-05-2024 08:31-0400 Body weight 83.42 kg Amanda Osborne MD Work Phone: [facility] 01-05-2024 08:31-0400 Diastolic blood pressure 76 mm[Hg] Amanda Osborne MD Work Phone: [facility] 01-05-2024 08:31-0400 Heart rate 65 /min Amanda Osborne MD Work Phone: [facility] 01-05-2024 08:31-0400 SaO2% (BldA) [Mass fraction] 96 % Amanda Osborne MD Work Phone: [facility] 01-05-2024 08:31-0400 Systolic blood pressure 110 mm[Hg] Amanda Osborne MD Work Phone: [facility] 08-04-2023 09:29-0400 Body height 165.1 cm Ab Kamenisasha [employer]INE OPERATOR Work Phone: [facility] 08-04-2023 09:29-0400 Body mass index (BMI) [Ratio] 29.12 kg/m2 Ab Kamenisasha [employer] MACHINE OPERATOR Work Phone: [facility] 08-04-2023 09:29-0400 Body weight 79.38 kg Ab Kamenik [employer] MACHINE OPERATOR Work Phone: [facility] 08-04-2023 09:29-0400 Diastolic blood pressure 74 mm[Hg] Ab Montielenik [employer]ING MACHINE OPERATOR Work Phone: [facility] 08-04-2023 09:29-0400 Heart rate 71 /min Ab Montielenisasha [employer] MACHINE OPERATOR Work Phone: [facility] 08-04-2023 09:29-0400 Respiratory rate 18 /min Ab Montielenisasha [employer]ING MACHINE OPERATOR Work Phone: [facility] 08-04-2023 09:29-0400 SaO2% (BldA) [Mass fraction] 94 % Ab Montielenisasha [employer]ING MACHINE OPERATOR Work Phone: [facility] 08-04-2023 09:29-0400 Systolic blood pressure 134 mm[Hg] Ab Montielenisasha [employer]ING MACHINE OPERATOR Work Phone: [facility] 04-17-2023 15:17-0500 Body height 165.1 cm Amanda Osborne MD Work Phone: [facility] 04-17-2023 15:17-0500 Body mass index (BMI) [Ratio] 29.27 kg/m2 Amanda Osborne MD Work Phone: [facility] 04-17-2023 15:17-0500 Body weight 79.79 kg Amanda Osborne MD Work Phone: [facility] 04-17-2023 15:17-0500 Diastolic blood pressure 76 mm[Hg] Amanda Osborne MD Work Phone: [facility] 04-17-2023 15:17-0500 Heart rate 52 /min Amanda Osborne MD Work Phone: [facility] 04-17-2023 15:17-0500 SaO2% (BldA) [Mass fraction] 98 % Amanda Osborne MD Work Phone: [facility] 04-17-2023 15:17-0500 Systolic blood pressure 110 mm[Hg] Amanda Osborne MD Work Phone: [facility] 02-24-2023 08:43-0500 Body height 165.1 cm Zenaida Silva MD Work Phone: [facility] 02-24-2023 08:43-0500 Body mass index (BMI) [Ratio] 29.82 kg/m2 Zenaida Silva MD Work Phone: [facility] 02-24-2023 08:43-0500 Body weight 81.28 kg Zenaida Silva MD Work Phone: [facility] 02-24-2023 08:43-0500 Diastolic blood pressure 72 mm[Hg] Zenaida Silva MD Work Phone: [facility] 02-24-2023 08:43-0500 Systolic blood pressure 136 mm[Hg] Zenaida Silva MD Work Phone: [facility] 01-23-2023 15:27-0500 Body temperature 97.9 [degF] Dr. Amanda Osborne Work Phone: [facility] 01-23-2023 15:27-0500 Diastolic blood pressure 54 mm[Hg] Dr. Amanda Osborne Work Phone: [facility] 01-23-2023 15:27-0500 Heart rate 80 /min Dr. Amanda Osborne Work Phone: [facility] 01-23-2023 15:27-0500 Respiratory rate 16 /min Dr. Amanda Osborne Work Phone: [facility] 01-23-2023 15:27-0500 SaO2% (BldA) [Mass fraction] 94 % Dr. Amanda Osborne Work Phone: [facility] 01-23-2023 15:27-0500 Systolic blood pressure 120 mm[Hg] Dr. Amanda Osborne Work Phone: [facility] 01-22-2023 01:51-0500 Inhaled oxygen flow rate 2 L/min Dr. Amanda Osborne Work Phone: [facility] 01-21-2023 18:18-0500 Body height 167.[address] Amanda Osborne Work Phone: [facility] 01-21-2023 18:18-0500 Body mass index (BMI) [Ratio] 28.8 kg/m2 Dr. Amanda Osborne Work Phone: [facility] 01-21-2023 18:18-0500 Body weight [address] Amanda Osborne Work Phone: [facility] 01-13-2023 11:38-0400 Body temperature 98.2 [degF] Dr. Amanda Osborne Work Phone: [facility] 01-13-2023 11:38-0400 Heart rate 74 /min Dr. Amanda Osborne Work Phone: [facility] 01-13-2023 11:38-0400 Respiratory rate 16 /min Dr. Amanda Osborne Work Phone: [facility] 01-13-2023 11:38-0400 SaO2% (BldA) [Mass fraction] 96 % Dr. Amanda Osborne Work Phone: [facility] 12-23-2022 13:14-0400 Body temperature 98.6 [degF] Dr. Amanda Osborne Work Phone: [facility] 12-23-2022 13:14-0400 Heart rate 107 /min Dr. Amnada Osborne Work Phone: [facility] 12-23-2022 13:14-0400 Respiratory rate 16 /min Dr. Amanda Osborne Work Phone: 6(842)008-590124 [place] [address] 12-23-2022 13:14-0400 SaO2% (BldA) [Mass fraction] 97 % Dr. Amanda Osborne Work Phone: 6(846)156-698224 [place] [address] 12-10-2022 15:23-0400 Body temperature 98.4 [degF] Dr. Amanda Osborne Work Phone: [facility] 12-10-2022 15:23-0400 Diastolic blood pressure 76 mm[Hg] Dr. Amanda Osborne Work Phone: [facility] 12-10-2022 15:23-0400 Heart rate 76 /min Dr. Amanda Osborne Work Phone: [facility] 12-10-2022 15:23-0400 Respiratory rate 16 /min Dr. Amanda Osborne Work Phone: [facility] 12-10-2022 15:23-0400 SaO2% (BldA) [Mass fraction] 92 % Dr. Amanda Osborne Work Phone: [facility] 12-10-2022 15:23-0400 Systolic blood pressure 130 mm[Hg] Dr. Amanda Osborne Work Phone: [facility] 11-24-2022 16:51-0400 Body temperature 98.7 [degF] Dr. Amanda Osborne Work Phone: [facility] 11-24-2022 16:51-0400 Heart rate 90 /min Dr. Amanad Osborne Work Phone: [facility] 11-24-2022 16:51-0400 Respiratory rate 18 /min Dr. Amanda Osborne Work Phone: [facility] 11-24-2022 16:51-0400 SaO2% (BldA) [Mass fraction] 94 % Dr. Amanda Osborne Work Phone: 9(455)933-670524 [place] [address] 11-13-2022 13:36-0400 Body temperature 98.4 [degF] Dr. Amanda Osborne Work Phone: 1(442)637-326724 [place] [address] 11-13-2022 13:36-0400 Heart rate 84 /min Dr. Amanda Osborne Work Phone: 9(821)579-871824 [place] [address] 11-13-2022 13:36-0400 Respiratory rate 16 /min Dr. Amanda Osborne Work Phone: 1(600)186-596524 [place] [address] 11-13-2022 13:36-0400 SaO2% (BldA) [Mass fraction] 95 % Dr. Amanda Osborne Work Phone: 4(546)736-871924 [place] [address] 10-30-2022 13:28-0400 Body temperature 98.5 [degF] Dr. Amanda Osborne Work Phone: [facility] 10-30-2022 13:28-0400 Heart rate 83 /min Dr. Amanda Osborne Work Phone: 1(161)884-663024 [place] [address] 10-30-2022 13:28-0400 Respiratory rate 16 /min Dr. Amanda Osborne Work Phone: 0(090)071-132424 [place] [address] 10-30-2022 13:28-0400 SaO2% (BldA) [Mass fraction] 95 % Dr. Amanda Osborne Work Phone: 4(100)007-137324 [place] [address] 10-23-2022 10:21-0400 Body height 167.[address] Amanda Osborne Work Phone: 7(559)853-915924 [place] [address] 10-23-2022 10:21-0400 Body temperature 98.1 [degF] Dr. Amanda Osborne Work Phone: 8(162)370-335324 [place] [address] 10-23-2022 10:21-0400 Heart rate 94 /min Dr. Amanda Osborne Work Phone: 6(572)242-132424 [place] [address] 10-23-2022 10:21-0400 Respiratory rate 16 /min Dr. Amanda Osborne Work Phone: 8(819)134-198024 [place] [address] 10-23-2022 10:21-0400 SaO2% (BldA) [Mass fraction] 94 % Dr. Amanda Osborne Work Phone: 5(491)656-277424 [place] [address] 10-16-2022 11:27-0400 Body temperature 98.2 [degF] Dr. Amanda Osborne Work Phone: 4(985)824-131337 [place] [address] 10-16-2022 11:27-0400 Heart rate 60 /min Dr. Amanda Osborne Work Phone: 0(565)357-107724 [place] [address] 10-16-2022 11:27-0400 Respiratory rate 16 /min Dr. Amanda Osborne Work Phone: 2(590)008-814424 [place] [address] 10-16-2022 11:27-0400 SaO2% (BldA) [Mass fraction] 96 % Dr. Amanda Osborne Work Phone: 7(032)261-767124 [place] [address] 10-09-2022 11:51-0400 Body temperature 98.2 [degF] Dr. Amanda Osborne Work Phone: 4(108)494-135324 [place] [address] 10-09-2022 11:51-0400 Heart rate 86 /min Dr. Amanda Osborne Work Phone: 5(865)716-473324 [place] [address] 10-09-2022 11:51-0400 Respiratory rate 16 /min Dr. Amanda Osborne Work Phone: [facility] 10-09-2022 11:51-0400 SaO2% (BldA) [Mass fraction] 92 % Dr. Amanda Osborne Work Phone: [facility] 10-05-2022 10:18-0400 Body temperature 98.2 [degF] Dr. Amanda Osborne Work Phone: [facility] 10-05-2022 10:18-0400 Diastolic blood pressure 55 mm[Hg] Dr. Amanda Osborne Work Phone: [facility] 10-05-2022 10:18-0400 Heart rate 60 /min Dr. Amanda Osborne Work Phone: 4(622)649-503824 [place] [address] 10-05-2022 10:18-0400 Respiratory rate 16 /min Dr. Amanda Osborne Work Phone: [facility] 10-05-2022 10:18-0400 SaO2% (BldA) [Mass fraction] 95 % Dr. Amanda Osborne Work Phone: [facility] 10-05-2022 10:18-0400 Systolic blood pressure 116 mm[Hg] Dr. Amanda Osborne Work Phone: [facility] 10-03-2022 15:13-0400 Body height 167.[address] Amanda Osborne Work Phone: [facility] 10-03-2022 15:13-0400 Body mass index (BMI) [Ratio] 27.8 kg/m2 Dr. Amanda Osborne Work Phone: [facility] 10-03-2022 15:13-0400 Body weight 78.[address] Amanda Osborne Work Phone: [facility] 10-03-2022 13:15-0400 Inhaled oxygen flow rate 4 L/min Dr. Amanda Osborne Work Phone: [facility] 09-23-2022 08:32-0400 Body mass index (BMI) [Ratio] 27.6 kg/m2 Dr. Amanda Osborne Work Phone: [facility] 09-23-2022 08:32-0400 Body temperature 97.7 [degF] Dr. Amanda Osborne Work Phone: [facility] 09-23-2022 08:32-0400 Body weight 77.[address] Amanda Osborne Work Phone: [facility] 09-23-2022 08:32-0400 Diastolic blood pressure 72 mm[Hg] Dr. Amanda Osborne Work Phone: 1(099)027-751624 [place] [address] 09-23-2022 08:32-0400 Heart rate 60 /min Dr. Amanda Osborne Work Phone: 7(975)410-312724 [place] [address] 09-23-2022 08:32-0400 Respiratory rate 16 /min Dr. Amanda Osborne Work Phone: [facility] 09-23-2022 08:32-0400 SaO2% (BldA) [Mass fraction] 96 % Dr. Amanda Osborne Work Phone: [facility] 09-23-2022 08:32-0400 Systolic blood pressure 115 mm[Hg] Dr. Amanda Osborne Work Phone: [facility] 07-29-2022 14:54-0400 Body temperature 98.6 [degF] Dr. Amanda Osborne Work Phone: [facility] 07-29-2022 14:54-0400 Heart rate 87 /min Dr. Amanda Osborne Work Phone: [facility] 07-29-2022 14:54-0400 Respiratory rate 18 /min Dr. Amanda Osborne Work Phone: [facility] 07-29-2022 14:54-0400 SaO2% (BldA) [Mass fraction] 95 % Dr. Amanda Osborne Work Phone: [facility] 07-01-2022 14:51-0400 Body temperature 97.1 [degF] Dr. Amanda Osborne Work Phone: [facility] 07-01-2022 14:51-0400 Heart rate 75 /min Dr. Amanda Osborne Work Phone: [facility] 07-01-2022 14:51-0400 Respiratory rate 17 /min Dr. Amanda Osborne Work Phone: [facility] 07-01-2022 14:51-0400 SaO2% (BldA) [Mass fraction] 93 % Dr. Amanda Osborne Work Phone: [facility] 06-16-2022 15:11-0400 Body temperature 98.4 [degF] Dr. Amanda Osborne Work Phone: [facility] 06-16-2022 15:11-0400 Heart rate 77 /min Dr. Amanda Osborne Work Phone: [facility] 06-16-2022 15:11-0400 Respiratory rate 18 /min Dr. Amanda Osborne Work Phone: [facility] 06-16-2022 15:11-0400 SaO2% (BldA) [Mass fraction] 96 % Dr. Amanda Osborne Work Phone: [facility] 06-10-2022 13:47-0400 Body temperature 98.5 [degF] Dr. Zenaida Barrett Work Phone: [facility] 06-10-2022 13:47-0400 Heart rate 93 /min Dr. Zenaida Barrett Work Phone: [facility] 06-10-2022 13:47-0400 Respiratory rate 18 /min Dr. Zenaida Barrett Work Phone: [facility] 06-10-2022 13:47-0400 SaO2% (BldA) [Mass fraction] 96 % Dr. Zenaida Barrett Work Phone: [facility] 06-02-2022 15:24-0400 Body temperature 98.7 [degF] Dr. Zenaida Barrett Work Phone: [facility] 06-02-2022 15:24-0400 Diastolic blood pressure 68 mm[Hg] Dr. Zenaida Barrett Work Phone: [facility] 06-02-2022 15:24-0400 Heart rate 72 /min Dr. Zenaida Barrett Work Phone: [facility] 06-02-2022 15:24-0400 Respiratory rate 18 /min Dr. Zenaida Barrett Work Phone: [facility] 06-02-2022 15:24-0400 SaO2% (BldA) [Mass fraction] 97 % Dr. Zenaida Barrett Work Phone: [facility] 06-02-2022 15:24-0400 Systolic blood pressure 117 mm[Hg] Dr. Zenaida Barrett Work Phone: [facility] 05-30-2022 16:49-0400 Body height 167.[address] Zenaida Barrett Work Phone: [facility] 05-30-2022 16:49-0400 Body mass index (BMI) [Ratio] 27.3 kg/m2 Dr. Zenaida Barrett Work Phone: [facility] 05-30-2022 16:49-0400 Body weight 76.[address] Zenaida Barrett Work Phone: [facility] 05-30-2022 16:00-0400 Inhaled oxygen flow rate 4 L/min Dr. Zenaida Barrett Work Phone: [facility] 05-27-2022 09:30-0400 Body temperature 97.4 [degF] Dr. Zenaida Barrett Work Phone: [facility] 05-27-2022 09:30-0400 Diastolic blood pressure 64 mm[Hg] Dr. Zenaida Barrett Work Phone: [facility] 05-27-2022 09:30-0400 Heart rate 59 /min Dr. Zenaida Barrett Work Phone: [facility] 05-27-2022 09:30-0400 Respiratory rate 17 /min Dr. Zenaida Barrett Work Phone: [facility] 05-27-2022 09:30-0400 Systolic blood pressure 106 mm[Hg] Dr. Zenaida Barrett Work Phone: [facility] 05-22-2022 11:43-0500 Body temperature 97.8 [degF] Dr. Zenaida Barrett Work Phone: [facility] 05-22-2022 11:43-0500 Heart rate 85 /min Dr. Zenaida Barrett Work Phone: [facility] 05-22-2022 11:43-0500 Respiratory rate 17 /min Dr. Zenaida Barrett Work Phone: [facility] 05-22-2022 11:43-0500 SaO2% (BldA) [Mass fraction] 92 % Dr. Zenaida Barrett Work Phone: [facility] 05-14-2022 08:28-0500 Body temperature 98.1 [degF] Dr. Zenaida Barrett Work Phone: [facility] 05-14-2022 08:28-0500 Heart rate 68 /min Dr. Zenaida Barrett Work Phone: [facility] 05-14-2022 08:28-0500 Respiratory rate 16 /min Dr. Zenaida Barrett Work Phone: [facility] 05-14-2022 08:28-0500 SaO2% (BldA) [Mass fraction] 90 % Dr. Zenaida Barrett Work Phone: [facility] 05-13-2022 10:10-0500 Body temperature 97 [degF] Dr. Zenaida Barrett Work Phone: [facility] 05-13-2022 10:10-0500 Diastolic blood pressure 68 mm[Hg] Dr. Zenaida Barrett Work Phone: [facility] 05-13-2022 10:10-0500 Heart rate 73 /min Dr. Zenaida Barrett Work Phone: [facility] 05-13-2022 10:10-0500 Respiratory rate 16 /min Dr. Zenaida Barrett Work Phone: [facility] 05-13-2022 10:10-0500 Systolic blood pressure 111 mm[Hg] Dr. Zenaida Barrett Work Phone: [facility] 05-07-2022 08:45-0500 Body height 165.1 cm Amanda [employer] Work Phone: [place] [address] [address] Work Phone: 05-07-2022 08:45-0500 Body mass index (BMI) [Ratio] 27.99 kg/m2 Amanda Lidrew Work Phone: [place] [address] [address] Work Phone: 05-07-2022 08:45-0500 Body surface area Derived from formula 1.84 m2 Amanda Blair Olena Work Phone: [place] [address] [address] Work Phone: 05-07-2022 08:45-0500 Body weight 76.3 kg Amanda Lidrew Work Phone: [place] [address] [place] Work Phone: 05-07-2022 08:45-0500 Diastolic blood pressure 66 mm[Hg] Amanda Licathieorf Work Phone: [place] [address] [place] Work Phone: 05-07-2022 08:45-0500 Systolic blood pressure 108 mm[Hg] Amanda Núñezorf Work Phone: [place] [address] [place] Work Phone: 04-28-2022 08:25-0500 Body temperature 97.4 [degF] Dr. Zenaida Barrett Work Phone: [facility] 04-28-2022 08:25-0500 Diastolic blood pressure 85 mm[Hg] Dr. Zenaida Barrett Work Phone: [facility] 04-28-2022 08:25-0500 Heart rate 71 /min Dr. Zenaida Barrett Work Phone: [facility] 04-28-2022 08:25-0500 Respiratory rate 16 /min Dr. Zenaida Barrett Work Phone: [facility] 04-28-2022 08:25-0500 Systolic blood pressure 131 mm[Hg] Dr. Zenaida Barrett Work Phone: [facility] 04-25-2022 09:04-0500 Body height 167.[address] Zenaida Barrett Work Phone: [facility] 04-25-2022 09:04-0500 Body temperature 97.3 [degF] Dr. Zenaida Barrett Work Phone: [facility] 04-25-2022 09:04-0500 Heart rate 66 /min Dr. Zenaida Barrett Work Phone: [facility] 04-25-2022 09:04-0500 Respiratory rate 17 /min Dr. Zenaida Barrett Work Phone: [facility] 04-25-2022 09:04-0500 SaO2% (BldA) [Mass fraction] 96 % Dr. Zenaida Barrett Work Phone: [facility] 04-18-2022 14:00-0500 Body temperature 97.6 [degF] Dr. Zenaida Barrett Work Phone: [facility] 04-18-2022 14:00-0500 Heart rate 65 /min Dr. Zenaida Barrett Work Phone: [facility] 04-18-2022 14:00-0500 Respiratory rate 18 /min Dr. Zenaida Barrett Work Phone: [facility] 04-18-2022 14:00-0500 SaO2% (BldA) [Mass fraction] 96 % Dr. Zenaida Barrett Work Phone: [facility] 04-15-2022 16:20-0500 Body temperature 98.5 [degF] Dr. Zenaida Barrett Work Phone: [facility] 04-15-2022 16:20-0500 Heart rate 77 /min Dr. Zenaida Barrett Work Phone: [facility] 04-15-2022 16:20-0500 Respiratory rate 18 /min Dr. Zenaida Barrett Work Phone: [facility] 04-15-2022 16:20-0500 SaO2% (BldA) [Mass fraction] 93 % Dr. Zenaida Barrett Work Phone: [facility] 04-14-2022 14:06-0500 Body temperature 98.5 [degF] Dr. Zenaida Barrett Work Phone: [facility] 04-14-2022 14:06-0500 Diastolic blood pressure 46 mm[Hg] Dr. Zenaida Barrett Work Phone: [facility] 04-14-2022 14:06-0500 Heart rate 75 /min Dr. Zenaida Barrett Work Phone: [facility] 04-14-2022 14:06-0500 Respiratory rate 18 /min Dr. Zenaida Barrett Work Phone: [facility] 04-14-2022 14:06-0500 SaO2% (BldA) [Mass fraction] 95 % Dr. Zenaida Barrett Work Phone: [facility] 04-14-2022 14:06-0500 Systolic blood pressure 108 mm[Hg] Dr. Zenaida Barrett Work Phone: [facility] 04-13-2022 20:37-0500 Inhaled oxygen flow rate 2 L/min Dr. Zenaida Barrett Work Phone: [facility] 04-11-2022 06:47-0500 Body height 167.[address] Zenaida Barrett Work Phone: [facility] 04-11-2022 06:47-0500 Body mass index (BMI) [Ratio] 27.3 kg/m2 Dr. Zenaida Barrett Work Phone: [facility] 04-11-2022 06:47-0500 Body weight [address] Zenaida Barrett Work Phone: [facility] 04-01-2022 11:16-0500 Body mass index (BMI) [Ratio] 28.1 kg/m2 Dr. Zenaida Barrett Work Phone: [facility] 04-01-2022 11:16-0500 Body temperature 98.3 [degF] Dr. Zenaida Barrett Work Phone: [facility] 04-01-2022 11:16-0500 Body weight 77.[address] Zenaida Barrett Work Phone: [facility] 04-01-2022 11:16-0500 Diastolic blood pressure 76 mm[Hg] Dr. Zenaida Barrett Work Phone: [facility] 04-01-2022 11:16-0500 Heart rate 79 /min Dr. Zenaida Barrett Work Phone: [facility] 04-01-2022 11:16-0500 Respiratory rate 16 /min Dr. Zenaida Barrett Work Phone: [facility] 04-01-2022 11:16-0500 SaO2% (BldA) [Mass fraction] 95 % Dr. Zenaida Barrett Work Phone: [facility] 04-01-2022 11:16-0500 Systolic blood pressure 124 mm[Hg] Dr. Zenaida Barrett Work Phone: [facility] 03-10-2022 04:13-0500 Diastolic blood pressure 69 mm[Hg] Amanda Osborne Other Phone: [facility] 03-10-2022 04:13-0500 Heart rate 79 /min Amanda Osborne Other Phone: [facility] 03-10-2022 04:13-0500 Respiratory rate 18 /min Amanda Osborne Other Phone: [facility] 03-10-2022 04:13-0500 SaO2% (BldA) [Mass fraction] 94 % Amanda Osborne Other Phone: [facility] 03-10-2022 04:13-0500 Systolic blood pressure 110 mm[Hg] Amanda Osborne Other Phone: [facility] 03-05-2022 11:39-0500 Body height 165.1 cm Amanda Osborne Work Phone: [employer] [facility] Work Phone: 03-05-2022 11:39-0500 Body mass index (BMI) [Ratio] 28.64 kg/m2 Amanda Osborne Work Phone: [facility] [employer] [facility] Work Phone: 03-05-2022 11:39-0500 Body surface area Derived from formula 1.86 m2 Amanda Osborne Work Phone: [facility] [employer] [facility] Work Phone: 03-05-2022 11:39-0500 Body weight 78.08 kg Amanda Osborne Work Phone: [employer] [facility] [facility] Work Phone: 03-05-2022 11:39-0500 Diastolic blood pressure 68 mm[Hg] Amanda Osborne Work Phone: [employer] [facility] Work Phone: 03-05-2022 11:39-0500 Heart rate 78 /min Amanda Osborne Work Phone: [employer] [facility] Work Phone: 03-05-2022 11:39-0500 SaO2% (BldA) [Mass fraction] 93 % Amanda Osborne Work Phone: [facility] Work Phone: 03-05-2022 11:39-0500 Systolic blood pressure 100 mm[Hg] Amanda Osborne Work Phone: [facility] Work Phone: 03-02-2022 05:03-0500 Body temperature 99.5 [degF] Amanda Osborne Other Phone: [facility] 03-02-2022 05:03-0500 Diastolic blood pressure 62 mm[Hg] Amanda Osborne Other Phone: [facility] 03-02-2022 05:03-0500 Heart rate 100 /min Amanda Osborne Other Phone: [facility] 03-02-2022 05:03-0500 Respiratory rate 16 /min Amanda Osborne Other Phone: [facility] 03-02-2022 05:03-0500 SaO2% (BldA) [Mass fraction] 93 % Amanda Osborne Other Phone: [facility] 03-02-2022 05:03-0500 Systolic blood pressure 117 mm[Hg] Amanda Osborne Other Phone: [facility] 01-09-2022 16:02-0400 Body mass index (BMI) [Ratio] 28.3 kg/m2 Dr. Zenaida Barrett Work Phone: [facility] 01-09-2022 16:02-0400 Body temperature 98.4 [degF] Dr. Zenaida Barrett Work Phone: [facility] 01-09-2022 16:02-0400 Body weight 78.[address] Zenaida Barrett Work Phone: [facility] 01-09-2022 16:02-0400 Diastolic blood pressure 79 mm[Hg] Dr. Zenaida Barrett Work Phone: [facility] 01-09-2022 16:02-0400 Heart rate 81 /min Dr. Zenaida Barrett Work Phone: [facility] 01-09-2022 16:02-0400 Respiratory rate 16 /min Dr. Zenaida Barrett Work Phone: [facility] 01-09-2022 16:02-0400 SaO2% (BldA) [Mass fraction] 94 % Dr. Zenaida Barrett Work Phone: [facility] 01-09-2022 16:02-0400 Systolic blood pressure 127 mm[Hg] Dr. Zenaida Barrett Work Phone: [facility] 10-29-2021 15:36-0400 Body height 165.1 cm Amanda [employer] Work Phone: [place] [address] [address] Work Phone: 10-29-2021 15:36-0400 Body mass index (BMI) [Ratio] 27.55 kg/m2 Amanda [employer] Work Phone: [place] [address] [address] Work Phone: 10-29-2021 15:36-0400 Body surface area Derived from formula 1.83 m2 Amanda Blair [employer] Work Phone: [place] [address] [address] Work Phone: 10-29-2021 15:36-0400 Body weight 75.1 kg Amanda [employer] Work Phone: [place] [address] [address] Work Phone: 10-29-2021 15:36-0400 Diastolic blood pressure 76 mm[Hg] Amanda [employer] Work Phone: [place] [address] [address] Work Phone: 10-29-2021 15:36-0400 Systolic blood pressure 124 mm[Hg] Amanda Osborne Work Phone: [address] Work Phone: 07-01-2021 12:55-0400 Body height 165.1 cm Amanda Osborne Work Phone: VO-Asghkbr-Iymmpdy [facility] [address] Work Phone: 07-01-2021 12:55-0400 Body temperature 98.2 [degF] Amanda Osborne Work Phone: HA-Yjyhwkp-Dlimxon [facility] [address] Work Phone: 07-01-2021 12:55-0400 Diastolic blood pressure 78 mm[Hg] Amanda Osborne Work Phone: DZ[facility]Mvabeai[facility]Prlcr[facility] [address] Work Phone: 07-01-2021 12:55-0400 Heart rate 66 /min Amanda Osborne Work Phone: SX-Jdvnjya-Cxatdrb [facility] [address] Work Phone: 07-01-2021 12:55-0400 Systolic blood pressure 127 mm[Hg] Amanda Osborne Work Phone: KM[facility]Glttylf[facility]Myvdxqd [address] Work Phone: 04-17-2021 13:16-0500 Body height 165.1 cm Amanda Osborne Work Phone: [address] Work Phone: 04-17-2021 13:16-0500 Body mass index (BMI) [Ratio] 25.31 kg/m2 Amanda Osborne Work Phone: [address] Work Phone: 04-17-2021 13:16-0500 Body surface area Derived from formula 1.76 m2 Amanda [employer] Work Phone: [place] [address] [address] Work Phone: 04-17-2021 13:16-0500 Body temperature 97.7 [degF] Amanda [employer] Work Phone: [place] [address] [address] Work Phone: 04-17-2021 13:16-0500 Body weight 69 kg Amanda [employer] Work Phone: [place] [address] [address] Work Phone: 04-17-2021 13:16-0500 Diastolic blood pressure 64 mm[Hg] Amanda [employer] Work Phone: [place] [address] [address] Work Phone: 04-17-2021 13:16-0500 Systolic blood pressure 110 mm[Hg] Amanda [employer] Work Phone: [place] [address] [address] Work Phone: 04-02-2021 08:44-0500 Body height 165.1 cm Amanda [employer] Work Phone: [place] [address] [address] Work Phone: 04-02-2021 08:44-0500 Body mass index (BMI) [Ratio] 25.17 kg/m2 Amanda [employer] Work Phone: [place] [address] [address] Work Phone: 04-02-2021 08:44-0500 Body surface area Derived from formula 1.76 m2 Amanda [employer] Work Phone: [place] [address] [address] Work Phone: 04-02-2021 08:44-0500 Body temperature 98.2 [degF] Amanda [employer] Work Phone: [place] [address] [address] Work Phone: 04-02-2021 08:44-0500 Body weight 68.59 kg Amanda Osborne Work Phone: [address] Work Phone: 04-02-2021 08:44-0500 Diastolic blood pressure 64 mm[Hg] Amanda Osborne Work Phone: [address] Work Phone: 04-02-2021 08:44-0500 Systolic blood pressure 112 mm[Hg] Amanda Osborne Work Phone: [address] Work Phone: 03-16-2021 14:44-0500 Body height 165.1 cm Monica Kwan PA Work Phone: [facility] 03-16-2021 14:44-0500 Body mass index (BMI) [Ratio] 25.14 kg/m2 Monica Kwan PA Work Phone: [facility] 03-16-2021 14:44-0500 Body temperature 99.3 [degF] Monica Kwan PA Work Phone: [facility] 03-16-2021 14:44-0500 Body weight 68.54 kg Monica Kwan PA Work Phone: [facility] 03-16-2021 14:44-0500 Diastolic blood pressure 70 mm[Hg] Monica Kwan PA Work Phone: [employer] [facility] 03-16-2021 14:44-0500 Heart rate 77 /min Monica [facility]wan PA Work Phone: [facility] 03-16-2021 14:44-0500 Respiratory rate 16 /min Monica Kwan PA Work Phone: [facility] 03-16-2021 14:44-0500 SaO2% (BldA) [Mass fraction] 96 % Monica Kwan PA Work Phone: [facility] 03-16-2021 14:44-0500 Systolic blood pressure 116 mm[Hg] Monica Daniel ROGERS Work Phone: [facility] 01-04-2021 08:38-0400 Body height 165.1 cm Amanda Rossy Longsdorf Work Phone: [place] [address] [address] Work Phone: 01-04-2021 08:38-0400 Body mass index (BMI) [Ratio] 23.96 kg/m2 Amanda A Longsdorf Work Phone: [place] [address] [address] Work Phone: 01-04-2021 08:38-0400 Body surface area Derived from formula 1.72 m2 Amanda Rossy Lisdorf Work Phone: [place] [address] [address] Work Phone: 01-04-2021 08:38-0400 Body temperature 97.3 [degF] Amanda A Longsdorf Work Phone: [place] [address] [address] Work Phone: 01-04-2021 08:38-0400 Body weight 65.32 kg Amanda Lisdorf Work Phone: [place] [address] [address] Work Phone: 01-04-2021 08:38-0400 Diastolic blood pressure 74 mm[Hg] Amanda Rossy Longsdorf Work Phone: [place] [address] [address] Work Phone: 01-04-2021 08:38-0400 Systolic blood pressure 120 mm[Hg] Amanda Rossy Longsdorf Work Phone: [place] [address] [address] Work Phone: 10-30-2020 16:38-0400 Body height 165.1 cm Amanda Rossy Lisdorf Work Phone: [facility] Work Phone: 10-30-2020 16:38-0400 Body mass index (BMI) [Ratio] 24.37 kg/m2 Amanda Osborne Work Phone: [facility] Work Phone: 10-30-2020 16:38-0400 Body surface area Derived from formula 1.73 m2 Amanda Osborne Work Phone: [facility] Work Phone: 10-30-2020 16:38-0400 Body temperature 98.2 [degF] Amanda Osborne Work Phone: [facility] Work Phone: 10-30-2020 16:38-0400 Body weight 66.43 kg Amanda Osborne Work Phone: [facility] Work Phone: 10-30-2020 16:38-0400 Diastolic blood pressure 70 mm[Hg] Amanda Osborne Work Phone: [facility] Work Phone: 10-30-2020 16:38-0400 Heart rate 66 /min Amanda Osborne Work Phone: [facility] Work Phone: 10-30-2020 16:38-0400 SaO2% (BldA) [Mass fraction] 96 % Amanda Osborne Work Phone: [facility] Work Phone: 10-30-2020 16:38-0400 Systolic blood pressure 116 mm[Hg] Amanda Osborne Work Phone: [facility] Work Phone: Encounters Encounter Date Encounter Type Care Provider Facility Start: 11-23-2024 ambulatory [facility] Facility:[facility] Start: 11-21-2024 ambulatory [facility] Facility:[facility] Start: 11-07-2024 End: 11-07-2024 Office outpatient visit 15 minutes Amanda Osborne MD Work Phone: [facility] Comment on above: Obesity (BMI 30-39.9 ) (Primary Dx) Start: 11-07-2024 End: 11-07-[address] [facility] Ambulatory Start: 11-03-2024 End: 11-03-[address] Mario Turcios MD -[facility] Work Phone: Start: 11-03-2024 End: 11-03-[address] Amanda Osborne MD Work Phone: -[facility] Start: 10-13-2024 End: 10-13-[address] Marlon Allen MD -[facility] Work Phone: Start: 10-13-2024 End: 10-13-[address] Amanda Osborne MD Work Phone: [facility] Start: 09-01-2024 End: 09-01-[address] Marlon Allen MD -[facility] Work Phone: Start: 09-01-2024 End: 09-01-[address] Amanda Osborne MD Work Phone: [facility] Work Phone: Start: 08-25-2024 End: 08-25-[address] Marlon Allen MD -[facility] Work Phone: Start: 08-25-2024 End: 08-25-[address] Amanda Osborne MD Work Phone: [facility] Work Phone: Start: 08-19-2024 End: 08-19-[address] Marlon Allen MD -[facility] Work Phone: Start: 08-19-2024 End: 08-19-[address] Amanda Osborne MD Work Phone: [facility] Work Phone: Start: 08-17-2024 Non-patient / Non-visit Dr. Marlon jansen MD -[facility] Start: 08-17-2024 End: 08-17-2024 Admission to same day surgery center Dr. Marlon Allen MD -[facility] Start: 08-17-2024 End: 08-17-[address] Amanda Osborne MD Work Phone: [facility] Work Phone: Start: 07-28-2024 End: 07-28-[address] Marlon Allen MD -[facility] Work Phone: Start: 07-28-2024 End: 07-28-[address] Amanda Obsorne MD Work Phone: [facility] Work Phone: Start: 07-24-2024 ambulatory Marlon Allen Facility:[facility] Start: 07-07-2024 End: 07-07-[address] Marlon Allen MD -[facility] Work Phone: Start: 07-07-2024 End: 07-07-2024 ambulatory Marlon Allen Facility:[facility] Start: 06-20-2024 Non-patient / Non-visit Dr. Marlon jansen MD -[facility] Start: 06-20-2024 End: 07-13-[address] [facility] Work Phone: Start: 06-20-2024 End: 07-13-2024 ambulatory Marlon Allen Facility:[facility] Start: 06-06-2024 End: 06-13-[address] Amanda Osborne MD Work Phone: [facility] Work Phone: Start: 06-06-2024 End: 06-13-[address] [facility] Work Phone: Start: 06-06-2024 ambulatory Marlon Allen [facility] Start: 06-06-2024 Non-patient / Non-visit Dr. Marlon jansen MD -[facility] Start: 05-23-2024 ambulatory Marlon Tiffany Facility:[facility] Start: 05-23-2024 Non-patient / Non-visit Dr. Marlon jansen MD -[facility] Start: 05-16-2024 ambulatory Marlon Tiffany Facility:[facility] Start: 05-16-2024 Non-patient / Non-visit Dr. Marlon jansen MD -[facility] Start: 05-10-2024 End: 05-10-2024 Patient encounter procedure Rachel Beard SENIOR PHARMACY TECHNICIAN-C -[facility] Work Phone: Start: 05-10-2024 End: 05-10-2024 ambulatory Rachel Beard SENIOR PHARMACY TECHNICIAN Facility:[facility] Start: 05-06-2024 End: 05-06-[address] Marlon Allen MD -[facility] Work Phone: Start: 05-06-2024 End: 05-06-2024 ambulatory Marlon Allen Facility:[facility] Start: 05-04-2024 Encounter for other preprocedural examination Marlon Allen [facility] Start: 05-03-2024 End: 05-03-[address] Marlon Allen MD -[facility] Work Phone: Start: 05-03-2024 End: 05-03-2024 ambulatory Marlon Allen Facility:[facility] Start: 04-26-2024 End: 04-26-2024 Patient encounter procedure Rachel Beard SENIOR PHARMACY TECHNICIAN-C -[facility] Work Phone: Start: 04-26-2024 End: 04-26-2024 ambulatory Rachel Beard SENIOR PHARMACY TECHNICIAN Facility:[facility] Start: 04-19-2024 End: 04-19-2024 Patient encounter procedure Rachel E Kisha SENIOR PHARMACY TECHNICIAN-C -[facility] Work Phone: Start: 04-19-2024 End: 04-19-2024 ambulatory Rachel Donnellyndell SENIOR PHARMACY TECHNICIAN Facility:[facility] Start: 04-11-2024 End: 04-11-2024 Patient encounter procedure Rachel Donnellyndell SENIOR PHARMACY TECHNICIAN-C -[facility] Work Phone: Start: 04-11-2024 End: 04-11-2024 ambulatory Rachel E Kisha SENIOR PHARMACY TECHNICIAN Facility:[facility] Start: 04-07-2024 End: 04-07-[address] Marlon Allen MD -[facility] Work Phone: Start: 04-07-2024 End: 04-07-2024 ambulatory Marlon Allen Facility:[facility] Start: 04-03-2024 Non-patient / Non-visit Dr. Marlon jansen MD -[facility] Start: 04-02-2024 Non-patient / Non-visit Dr. Marlon jansen MD [facility] Start: 04-01-2024 Non-patient / Non-visit Dr. Marlon jansen MD -[facility] Start: 03-31-2024 End: 04-03-2024 Evaluation and management of inpatient Dr. Marlon Allen MD -Intensive Care Unit Work Phone: Start: 03-31-2024 Non-patient / Non-visit Dr. Marlon jansen MD -[facility] Start: 03-31-2024 End: 03-31-2024 Non-patient / Non-visit Dr. Sarah Leyva MD -[facility] Work Phone: Start: 03-31-2024 End: 03-31-2024 ambulatory Marlon Allen Facility:[facility] Start: 03-30-2024 End: 03-30-[address] Marlon Allen MD -[facility] Work Phone: Start: 03-30-2024 End: 03-30-2024 ambulatory Marlon Allen Facility:[facility] Start: 03-21-2024 End: 03-21-2024 Encounter for preprocedural laboratory examination AMANDA OSBORNE [facility] Start: 03-21-2024 End: 03-21-2024 Office outpatient visit 25 minutes Amanda Osborne MD Work Phone: [facility] Comment on above: Preop examination (P rimary Dx); Gastroesophageal reflux disease, unspecified whether esophagitis present; Migraine without status migrainosus, not intractable, unspecified migraine type; Herpes; History of prophylactic mastectomy of both breasts Start: 03-21-2024 End: 03-21-2024 Preprocedural examination done Amanda Osborne MD Work Phone: [facility] Work Phone: Start: 03-21-2024 End: 03-21-2024 ambulatory AMANDA LICONATHALIE [facility] Start: 03-03-2024 Encounter for [facility]procedural laboratory [facility] Start: 03-03-2024 End: 03-03-[address] Marlon Allen MD -[facility] Work Phone: Start: 03-03-2024 End: 03-03-2024 [facility] Start: 03-01-2024 End: 03-01-2024 Patient encounter status Zenaida Silva MD Work Phone: [facility] Work Phone: Start: 03-01-2024 End: 03-01-2024 Periodic preventive med est patient 40-64yrs Zenaida Silva MD Work Phone: [facility] Comment on above: Vaginal Pap smear; Encounter for gynecological examination without abnormal finding Start: 03-01-2024 End: 03-01-2024 ambulatory [facility] Start: 03-01-2024 End: 03-01-2024 Encounter for gynecological examination (general) (routine) without abnormal findings [facility] Ambulatory Start: 01-11-2024 ambulatory [facility] Start: 01-05-2024 End: 01-05-[address] [facility] Ambulatory Start: 01-05-2024 End: 01-05-2024 Office outpatient visit 25 minutes Amanda Osborne MD Work Phone: [facility] Comment on above: History of prophylac tic mastectomy of both breasts (Primary Dx); Preop examination; Migraine without status migrainosus, not intractable, unspecified migraine type; Gastroesophageal reflux disease without esophagitis; Herpes Start: 01-05-2024 End: 01-05-2024 Preprocedural examination done Amanda Osborne MD Work Phone: [facility] Work Phone: Start: 01-04-2024 End: 01-04-2024 ambulatory Rachel Beard NP Facility:[facility] Start: 12-17-2023 End: 12-17-2023 ambulatory [facility] Facility:[facility] Start: 12-03-2023 End: 12-03-2023 ambulatory [facility] Facility:[facility] Start: 08-04-2023 End: 08-04-2023 ambulatory AMANDA LICONATHALIE [facility] Start: 08-04-2023 End: 08-04-2023 Patient encounter procedure 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: [facility] Comment on above: Cutaneous abscess of left axilla (Primary Dx) Start: 04-17-2023 End: 04-17-2023 Office outpatient visit 25 minutes Amanda Osborne MD Work Phone: [facility] Comment on above: Left leg swelling (P rimary Dx); Esophagitis, unspecified without bleeding; Herpes; Migraine without status migrainosus, not intractable, unspecified migraine type Start: 02-24-2023 End: 02-24-2023 Office outpatient visit 15 minutes Zenaida Silva MD Work Phone: [facility] Comment on above: Vaginal Pap smear; Vaginal Pap smear with LGSIL Start: 01-23-2023 Non-patient / Non-visit Dr. Jolly Osborne Work Phone: [facility] Start: 01-22-2023 Non-patient / Non-visit Dr. Jolly Osborne Work Phone: [facility] Start: 01-21-2023 End: 01-23-2023 Evaluation and management of inpatient Dr. Amanda Osborne [facility] Work Phone: Start: 01-21-2023 End: 01-23-[address] Amanda Osborne Work Phone: [facility] Work Phone: Start: 01-13-2023 End: 01-13-[address] Amanda Osborne Work Phone: [facility] Work Phone: Start: 12-23-2022 End: 12-23-[address] Amanda Osborne Work Phone: [facility] Work Phone: Start: 12-10-2022 End: 12-10-[address] Amanda Osborne Work Phone: [facility] Work Phone: Start: 11-24-2022 End: 11-24-[address] Amanda Osborne Work Phone: [facility] Work Phone: Start: 11-13-2022 End: 11-13-[address] Amanda Osborne Work Phone: [facility] Work Phone: Start: 11-04-2022 ambulatory MD ZENAIDA SILVA Facility:[id number] Start: 10-30-2022 End: 10-30-[address] Amanda Osborne Work Phone: [facility] Work Phone: Start: 10-23-2022 End: 10-23-[address] Amanda Osborne Work Phone: [facility] Work Phone: Start: 10-23-2022 End: 10-23-[address] Amanda Osborne Work Phone: [facility] Work Phone: Start: 10-16-2022 End: 10-16-[address] Amanda Osborne Work Phone: [facility] Work Phone: Start: 10-09-2022 End: 10-09-[address] Amanda Osborne Work Phone: [facility] Work Phone: Start: 10-05-2022 Non-patient / Non-visit Dr. Jolly Osborne Work Phone: [facility] Start: 10-04-2022 Non-patient / Non-visit Dr. Jolly Osborne Work Phone: [facility] Start: 10-03-2022 End: 10-05-2022 Evaluation and management of inpatient Dr. Amanda Osborne [facility] Work Phone: Start: 10-03-2022 End: 10-05-[address] Amanda Osborne Work Phone: [facility] Work Phone: Start: 09-23-2022 End: 09-23-[address] [facility] Start: 09-23-2022 End: 09-23-[address] Amanda Osborne Work Phone: [facility] Work Phone: Start: 07-29-2022 End: 07-29-[address] Amanda Osborne Work Phone: [facility] Work Phone: Start: 07-24-2022 End: 07-24-[address] Amanda Osborne Work Phone: [facility] Work Phone: Start: 07-01-2022 End: 07-01-[address] Amanda Osborne Work Phone: [facility] Work Phone: Start: 06-16-2022 End: 06-16-[address] Amanda Osborne Work Phone: [facility] Work Phone: Start: 06-10-2022 End: 06-10-[address] Zenaida Barrett Work Phone: [facility] Start: 06-02-2022 Non-patient / Non-visit Dr. Stewart Barrett Work Phone: [facility] Start: 06-01-2022 Non-patient / Non-visit Dr. Stewart Barrett Work Phone: [facility] Start: 05-31-2022 Non-patient / Non-visit Dr. Stewart Barrett Work Phone: [facility] Start: 05-30-2022 End: 06-02-2022 Evaluation and management of inpatient Dr. Zenaida Barrett [facility] Start: 05-30-2022 End: 06-02-[address] Zenaida Barrett Work Phone: [facility] Work Phone: Start: 05-30-2022 Non-patient / Non-visit [facility] Start: 05-27-2022 End: 06-13-[address] Zenaida Barrett Work Phone: [facility] Work Phone: Start: 05-27-2022 End: 06-13-[address] Zenaida Barrett [facility] Start: 05-27-[address] Zenaida Barrett [facility] [place] Start: 05-26-2022 End: 05-26-[address] Zenaida Barrett Work Phone: [facility] Start: 05-26-2022 Non-patient / Non-visit Dr. Stewart Barrett Work Phone: [facility] Start: 05-22-2022 End: 05-22-[address] Zenaida Barrett Work Phone: [facility] Start: 05-22-2022 Non-patient / Non-visit Dr. Stewart Barrett Work Phone: [facility] Start: 05-21-2022 Non-patient / Non-visit Dr. Stewart Barrett Work Phone: [facility] Start: 05-19-2022 Non-patient / Non-visit Dr. Stewart Barrett Work Phone: [facility] Start: 05-16-2022 Chart Update Amanda Blair Jennie cardona Work Phone: [employer] [facility] [employer] Work Phone: Start: 05-14-2022 End: 05-14-[address] Zenaida Barrett Work Phone: [facility] Start: 05-13-2022 End: 05-13-[address] Zenaida Barrett Work Phone: [facility] Work Phone: Start: 05-13-2022 End: 05-13-[address] Zenaida Barrett [facility] Start: 05-12-2022 Non-patient / Non-visit Dr. Stewart Barrett Work Phone: [facility] Start: 05-07-2022 Encounter for gynecological examination (general) (routine) without abnormal findings MD ZENAIDA SILVA [facility] Start: 05-07-2022 Encounter for gynecological examination (general) (routine) without abnormal findings MD ZENAIDA SILVA Facility:[facility] Start: 05-07-2022 Periodic preventive med est patient 40-64yrs Amanda Osborne Work Phone: [place] [address] [address] Work Phone: Start: 05-07-2022 ambulatory MD ZENAIDA SILVA Facility:[facility] Start: 05-05-2022 Non-patient / Non-visit Dr. Stewart Barrett Work Phone: [facility] Start: 04-29-2022 End: 04-29-2022 Non-patient / Non-visit Dr. Zenaida Barrett Work Phone: [facility] Group Start: 04-29-[address] Zenaida Barrett Work Phone: [facility]-Pulmonary Services/Neurology Start: 04-28-2022 Non-patient / Non-visit Dr. Stewart Barrett Work Phone: [facility] Start: 04-25-2022 End: 04-25-[address] Zenaida Barrett Work Phone: [facility] Start: 04-23-2022 End: 04-23-[address] Zenaida Barrett Work Phone: [facility] Work Phone: Start: 04-23-2022 End: 04-23-[address] Zenaida Barrett Work Phone: [facility]-Laboratory Start: 04-18-2022 End: 04-18-[address] Zenaida Barrett Work Phone: [facility] Start: 04-15-2022 End: 04-15-[address] Zenaida Barrett Work Phone: [facility] Start: 04-14-2022 Non-patient / Non-visit Dr. Stewart Barrett Work Phone: [facility] Start: 04-13-2022 Non-patient / Non-visit Dr. Stewart Barrett Work Phone: [facility] Start: 04-12-2022 Non-patient / Non-visit Dr. Stewart Barrett Work Phone: [facility] Start: 04-11-2022 End: 04-14-2022 Evaluation and management of inpatient Dr. Zenaida Barrett Work Phone: [facility]-Medical Surgical 3 Start: 04-11-2022 End: 04-14-[address] Zenaida Barrett Work Phone: [facility] Work Phone: Start: 04-10-2022 Non-patient / Non-visit Dr. Stewart Barrett Work Phone: [facility] Start: 04-01-2022 End: 04-01-[address] Zenaida Barrett Work Phone: [facility] Start: 03-11-2022 ambulatory OSMIN PORTILLO [facility] Start: 03-10-2022 End: 03-10-2022 Emergency department patient visit Sean Malagon [facility] Emergency 15 Start: 03-06-2022 AUDIT Amanda [facility]ona [facility] Work Phone: Start: 03-05-2022 Office outpatient vi sit 15 minutes Amanda Osborne Work [facility]: [facility] Work Phone: Start: 03-05-2022 ambulatory MD AMANDA OSBORNE Facility:[id number] Start: 03-02-2022 End: 03-02-2022 Emergency department patient visit Fanny Mckeon [facility] Emergency 14 Start: 01-09-2022 End: 01-09-[address] Zenaida Barrett Work Phone: [facility] Start: 11-14-2021 ambulatory MD AMANDA OSBORNE Facility:[id number] Start: 11-14-2021 FUV, Provider: Irene Finley, Status: Pen, Time: 1:00 PM Amanda Osborne Work Phone: [employer] [facility] [employer] Work Phone: Start: 11-12-2021 Chart Update Amanda cardona Work Phone: [employer] [facility] [employer] Work Phone: Start: 11-11-2021 Chart Update Amanda cardona Work Phone: [place] [address] [address] Work Phone: Start: 07-01-2021 Office consultation new/estab patient 60 min Amanda Osborne Work Phone: [facility] Work Phone: Start: 07-01-2021 Patient encounter procedure Amanda Osborne Work Phone: [facility] Work Phone: Start: 06-12-2021 Chart Update Amanda cardona Work Phone: [place] [address] [address] Work Phone: Start: 06-12-2021 ambulatory Amanda Carla Olena Facility:[id number] Start: 04-17-2021 Patient encounter procedure Amanda Osborne Work Phone: [place] [address] [address] Work Phone: Start: 04-05-2021 Chart Update Amanda cardona Work Phone: [place] [address] [address] Work Phone: Start: 03-16-2021 ambulatory AMANDAABEL OSBORNE [facility] Start: 03-16-2021 End: 03-16-2021 Office outpatient new 30 minutes Monica ROGERS Work Phone: [facility] Comment on above: Congestion of nasal sinus (Primary Dx); Acute maxillary sinusitis, recurrence not specified; Cough Start: 01-08-2021 Chart Update Amanda cardona Work Phone: [place] [address] [address] Work Phone: Start: 01-04-2021 Patient encounter procedure Amanda Blair Benjamindrew Work Phone: [place] [address] [address] Work Phone: Start: 11-15-2020 AUDIT Amanda cardona Work Phone: [facility] Work Phone: Start: 11-15-2020 Chart Update Amanda cardona Work Phone: [email or web address] [facility] Work Phone: Start: 11-14-2020 Office outpatient vi sit 15 minutes Amanda Osborne Work Phone: [employer] [facility] Work Phone: Start: 11-14-2020 Patient encounter procedure Amanda Osborne Work Phone: [email or web address] [facility] Work Phone: Start: 10-30-2020 Office outpatient vi sit 15 minutes Amanda Osborne Work Phone: [email or web address] [facility] Work Phone: Start: 10-24-2020 AUDIT Amanda cardona Work Phone: [email or web address] [facility] Work Phone: Start: 05-15-2017 [facility] Ambulatory Cancer cervix - screening done Amanda Osborne Work Phone: [email or web address] [facility] Work Phone: Comment on above: 02/06/2020:Negative1 ; WNL; Encounter for gynecological examination (general) (routine) without abnormal findings Amanda Osborne Work Phone: [facility] Work Phone: Comment on above: 02/06/2020:Negative1 ; WNL; 04/02/2021: LGSIL:Nuppimnl92/31/2018; WNL; 10/29/2021: LGSIL: LGSIL02/06/2020:Cuqyhaws86/31/2018; WNL; 05/07/2022; COTEST NE G08: LGSIL01: LGSIL02/06/2020:Ztvgdefp10/31/2018; WNL; Patient encounter status Jorge Alberto bakari Rossy Olena Work Phone: [facility] Work Phone: Procedures Date Procedure Procedure Detail Performing Clinician Start: 08-17-2024 Reduction mammoplasty D gloria Osborne MD Work Phone: Start: 04-01-2024 Plain X-ray abdomen Dr. Amanda Osborne MD Work Phone: Start: 04-01-2024 Plain chest X-ray Dr. Sasha Osborne MD Work Phone: Start: 04-01-[address] Amanda Osborne MD Work Phone: Start: 04-01-2024 Measurement of renal function Dr. Amanda Osborne MD Work Phone: Comment on above: GFR Calc Start: 03-31-2024 Breast reconstructio n with deep inferior epigastric avionics safety inspector skin flap Dr. Amanda Osborne MD Work Phone: Start: 01-21-2023 Investigation of transfusion reaction Dr. Amanda Osborne Work Phone: Start: 01-21-2023 Periprosthetic capsulectomy of breast Dr. Amanda Osborne Work Phone: Start: 10-03-2022 Reconstruction of br east with croze cutter helper or prosthesis Dr. Amanda Osborne Work Phone: Start: 05-30-2022 Periprosthetic capsulectomy of breast Dr. Zenaida Barrett Work Phone: Start: 04-29-2022 Plain chest X-ray Dr. Carmela Barrett Work Phone: Start: 04-11-2022 Insertion of prosthe sis for breast Dr. Zenaida Barrett Work Phone: Start: 03-10-2022 End: 03-10-2022 EKG impression Sean Morfinmer Start: 06-12-2021 Mammography Zenaida kim MD Work Phone: Start: 03-16-2021 SARS-COV-2 RAPID Monicaessie ROGERS Work Phone: Anaerobic microbial culture Dr. Zenaida Barrett Work Phone: Anaerobic microbial culture Dr. Zenaida Barrett Work Phone: Bilateral mastectomy Jorge Alberto Osborne [...] culture, routine Dr. Zenaida Barrett Work Phone: Microbial culture, routine Dr. Zenaida Barrett Work Phone: Tooth extraction Amanda Osborne Work Phone: Total abdominal hysterectomy Amanda Osborne Work Phone: Comment on above: 12/30/2018; Plan of Treatment Date Care Activity Detail Author Start: 03-24-2025 End: 03-24-2025 Patient encounter procedure [facility] Medical Office Building Start: 03-21-2025 Diabetes mellitus screening Diabetes Screening [facility] Start: 03-02-2025 Yearly Adult Physical Yearly Adult Physical [facility] Start: 11-14-2024 Influenza vaccination Influenza Vaccine (#1) [facility] Start: 08-17-2024 Anesthesia reconstruction breast ANESTH SURGERY OF BREAST [facility] Start: 08-17-2024 Exc b9 lesion mrgn xcp sk tg t/a/l >4.0 cm EXC TR-EXT B9+ADA >4.0 CM [facility] Start: 08-17-2024 Grafting of autologous fat by lipo 50 cc or less GRFG AUTOL FAT LIPO 50 CC/< [facility] Start: 08-17-2024 Grafting of autologous fat by lipo ea addl 50 cc GRFG AUTOL FAT LIPO EA ADDL [facility] Start: 08-17-2024 Repair intermediate s/a/t/e 12.6-20.0cm INTMD RPR S/A/T/EXT 12.6-20 [facility] Start: 08-17-2024 Revision reconstructed breast REVJ RECONSTRUCTED BREAST [facility] Start: 08-17-2024 Patient discharge [facility] Start: 04-03-2024 Patient discharge [facility] Start: 04-02-2024 Oxygen therapy [facility] Start: 04-02-2024 End: 04-02-2024 [facility] Start: 04-02-2024 Care planning and problem solving actions [facility] Start: 04-02-2024 Wound care [facility] Start: 04-01-2024 [facility] Start: 04-01-2024 Removal of urinary catheter [facility] Start: 04-01-2024 Wound care [facility] Start: 04-01-2024 Referral to service [facility] Start: 04-01-2024 Referral to occupational therapist [facility] Start: 04-01-2024 End: 04-01-2024 [facility] Start: 03-31-2024 Continuous pulse oximetry [facility] Start: 03-31-2024 Insertion of catheter into peripheral vein [facility] Start: 03-31-2024 Measuring intake and output [facility] Start: 03-31-2024 Providing care according to standard [facility] Start: 03-31-2024 Vital signs measurements [facility] Start: 03-31-2024 [facility] Start: 03-31-2024 Application of intermittent pneumatic compression device [facility] Start: 03-31-2024 Following clinical pathway protocol [facility] Start: 03-31-2024 Admission procedure [facility] Start: 03-31-2024 Maintenance of drainage tube [facility] Start: 03-31-2024 Vascular disease risk assessment [facility] Start: 03-01-2024 End: 03-01-2025 Cytology Cervical or vaginal smear or scraping study [facility] Service Area Work Phone: Comment on above: Expected: 03/01/2024 (Approximate), Expi res: 03/01/2025 Start: 02-08-2024 End: 02-08-2024 Patient encounter procedure 02/08/2024 8:30 AM EST Office Visit [facility] Medical Office Building [facility] [address] [place] [id number] Zenaida Silva MD [address] [place], [place] [address] [facility] Medical Office, [facility] [address] [place] [id number] [facility] Building Start: 01-23-2024 Diabetes mellitus screening Diabetes Screening [facility] Start: 12-29-2023 Pneumococcal vaccination Pneumococcal Vaccine (1 of 1 - PCV) [facility] Start: 12-29-2023 Zoster Vaccines (1 of 2) Zoster Vaccines (1 of 2) [facility] Start: 11-15-2023 COVID-19 Vaccine ( season) COVID-19 Vaccine ( season) [facility] Start: 11-15-2023 Influenza vaccination [facility] Start: 09-02-2023 End: 09-02-2023 Patient encounter procedure 09/02/2023 8:30 AM EDT Office Visit [facility] Medical Office Building [address] [place] [address] Zenaida Silva MD [address] [facility] Medical Office, [address] [address] [facility] Building Start: 04-21-2023 End: 04-21-2023 Patient encounter procedure 04/21/2023 10:00 AM EST Appointment [facility] [address] [place] [address] [facility] Start: 04-17-2023 End: 04-17-2025 Vascular US Lower Extremity Venous Duplex Left Vascular US Lower Extremity Venous Duplex Left Vascular Ultrasound Routine Left leg swelling Expected: 04/17/2023 (Approximate), Expires: 04/17/2025 [facility] Service Area Work Phone: Comment on above: Expected: 04/17/2023 (Approximate), Expi res: 04/17/2025 Start: 03-04-2023 EPV, Provider: Amanda Osborne, Status: Pen, Time: 11:00 AM EPV, Provider: Amanda Osborne, Status: Pen, Time: 11:00 AM [facility] Work Phone: Start: 03-04-2023 End: 03-04-2023 Patient encounter procedure [facility] [place] Start: 02-24-2023 End: 02-25-2024 Cytology Cervical or vaginal smear or scraping study THINPREP PAP TEST Pathology and Cytology Routine Vaginal Pap smear Vaginal Pap smear with LGSIL Expected: 02/24/2023 (Approximate), Expires: 02/25/2024 [facility] Service Area Work Phone: Comment on above: Expected: 02/24/2023 (Approximate), Expi res: 02/25/2024 Start: 01-23-2023 Patient discharge [facility] Start: 01-22-2023 Introduction of urinary catheter [facility] Start: 01-22-2023 Removal of urinary catheter [facility] Start: 01-22-2023 [facility] Start: 01-21-2023 [facility] Start: 01-21-2023 Following clinical pathway protocol [facility] Start: 01-21-2023 Application of intermittent pneumatic compression device [facility] Start: 01-21-2023 Elevation of head of bed [facility] Start: 01-21-2023 Introduction of urinary catheter [facility] Start: 01-21-2023 Ambulation therapy management [facility] Start: 01-21-2023 Application of intermittent pneumatic compression device [facility] Start: 01-21-2023 Incentive spirometry [facility] Start: 01-21-2023 Measuring intake and output [facility] Start: 01-21-2023 Notification of physician [facility] Start: 01-21-2023 Oxygen therapy [facility] Start: 01-21-2023 Patient education [facility] Start: 01-21-2023 Taking patient vital signs [facility] Start: 01-21-2023 Wound care [facility] Start: 01-21-2023 [facility] Start: 01-21-2023 Admission procedure [facility] Start: 01-21-2023 Assessment of risk of venous thromboembolism [facility] Start: 01-21-2023 Anaerobic microbial culture Anaerobic Culture [facility] Start: 01-21-2023 Microbial culture, routine Wound Culture [facility] Start: 11-14-2022 COVID-19 Vaccine ( season) COVID-19 Vaccine ( season) [facility] Start: 11-14-2022 Influenza vaccination Influenza Vaccine (#1) [facility] Start: 11-04-2022 PAPREPEAT, Provider: eZnaida Silva, Status: Pen, Time: 8:30 AM PAPREPEAT, Provider: Zenaida Silva, Status: Pen, Time: 8:30 AM [place] [address] [place] Work Phone: Start: 10-05-2022 Patient discharge [facility] Start: 10-04-2022 Application of intermittent pneumatic compression device [facility] Start: 10-04-2022 Introduction of urinary catheter [facility] Start: 10-03-2022 Admission procedure [facility] Start: 10-03-2022 Following clinical pathway protocol [facility] Start: 10-03-2022 Anesthesia reconstruction breast ANESTH SURGERY OF BREAST [facility] Start: 10-03-2022 Brst rcnstj immt/dlyd w/tiss croze cutter helper sbsq xpnsj TISS XPNDR PLMT BRST RCNSTJ [facility] Start: 10-03-2022 Implnt bio implnt for soft tissue reinforcement ACELLULAR DERM MATRIX IMPLT [facility] Start: 10-03-2022 End: 10-03-2022 [facility] Start: 10-03-2022 Introduction of urinary catheter [facility] Start: 10-03-2022 Elevation of head of bed [facility] Start: 10-03-2022 Wound care [facility] Start: 10-03-2022 Ambulation therapy management [facility] Start: 10-03-2022 Application of intermittent pneumatic compression device [facility] Start: 10-03-2022 Continuous pulse oximetry [facility] Start: 10-03-2022 Measuring intake and output [facility] Start: 10-03-2022 Notification of physician [facility] Start: 10-03-2022 Oxygen therapy [facility] Start: 10-03-2022 Patient education [facility] Start: 10-03-2022 Taking patient vital signs [facility] Start: 10-03-2022 Assessment of risk of venous thromboembolism [facility] Start: 06-12-2022 Screening for malignant neoplasm of breast Mammogram [facility] Start: 06-02-2022 Patient discharge [facility] Start: 05-31-2022 Introduction of urinary catheter [facility] Start: 05-30-2022 Application of intermittent pneumatic compression device [facility] Start: 05-30-2022 End: 05-30-2022 Following clinical pathway protocol [facility] Start: 05-30-2022 Introduction of urinary catheter [facility] Start: 05-30-2022 End: 05-30-2022 [facility] Start: 05-30-2022 Elevation of head of bed [facility] Start: 05-30-2022 Ambulation therapy management [facility] Start: 05-30-2022 Application of intermittent pneumatic compression device [facility] Start: 05-30-2022 Continuous pulse oximetry [facility] Start: 05-30-2022 Measuring intake and output [facility] Start: 05-30-2022 Notification of physician [facility] Start: 05-30-2022 Oxygen therapy [facility] Start: 05-30-2022 Patient education [facility] Start: 05-30-2022 Taking patient vital signs [facility] Start: 05-30-2022 Wound care [facility] Start: 05-30-2022 Admission procedure [facility] Start: 05-30-2022 Assessment of risk of venous thromboembolism [facility] Start: 05-30-2022 Anesthesia reconstruction breast ANESTH SURGERY OF BREAST [facility] Start: 05-30-2022 Periprosthetic capsulectomy breast TARAH-IMPLT CAPSLC BRST COMPL [facility] Start: 05-30-2022 Revision reconstructed breast REVJ RECONSTRUCTED BREAST [facility] Start: 05-30-2022 Secondary closure surg wound/dehsn extsv/complic LATE CLOSURE OF WOUND [facility] Start: 05-30-2022 [facility] Start: 05-12-2022 [facility] Start: 05-07-2022 PAPREPEAT, Provider: Zenaida Silva, Status: Pen, Time: 8:30 AM PAPREPEAT, Provider: Zenaida Silva, Status: Pen, Time: 8:[address] Work Phone: Start: 05-07-2022 Patient encounter procedure [facility] Start: 04-14-2022 Patient discharge [facility] Start: 04-12-2022 Introduction of urinary catheter [facility] Start: 04-11-2022 Following clinical pathway protocol [facility] Start: 04-11-2022 Application of intermittent pneumatic compression device [facility] Start: 04-11-2022 Introduction of urinary catheter [facility] Start: 04-11-2022 End: 04-11-2022 [facility] Start: 04-11-2022 Elevation of head of bed [facility] Start: 04-11-2022 Wound care [facility] Start: 04-11-2022 Ambulation therapy management [facility] Start: 04-11-2022 Application of intermittent pneumatic compression device [facility] Start: 04-11-2022 Continuous pulse oximetry [facility] Start: 04-11-2022 Incentive spirometry [facility] Start: 04-11-2022 Measuring intake and output [facility] Start: 04-11-2022 Notification of physician [facility] Start: 04-11-2022 Oxygen therapy [facility] Start: 04-11-2022 Patient education [facility] Start: 04-11-2022 Taking patient vital signs [facility] Start: 04-11-2022 Admission procedure [facility] Start: 04-11-2022 Assessment of risk of venous thromboembolism [facility] Start: 04-11-2022 Verification routine [facility] Start: 04-11-2022 Anes integ extremities ant trunk & perineum nos ANESTH SKIN EXT/PER/ATRUNK [facility] Start: 04-11-2022 Immt insj brst prosth flwg mastopexy mast/rcnstj INSJ BREAST IMPLT SM D MAST [facility] Start: 04-11-2022 Implnt bio implnt for soft tissue reinforcement ACELLULAR DERM MATRIX IMPLT [facility] Start: 04-11-2022 Mastectomy simple complete MAST SIMPLE COMPLETE [facility] Start: 04-11-2022 Mastopexy SUSPENSION OF BREAST [facility] Start: 04-07-2022 Patient encounter procedure ANNUAL, Provider: Zenaida Silva, Status: Pen, Time: 8:30 AM [facility] Work Phone: Start: 03-05-2022 Patient encounter procedure [facility] Start: 11-14-2021 FUV, Provider: Irene Finley, Status: Pen, Time: 1:00 PM FUV, Provider: Irene Finley, Status: Pen, Time: 1:00 PM [id number] Work Phone: Start: 10-16-2021 PAPREPEAT, Provider: Zenaida Silva, Status: Pen, Time: 3:30 PM PAPREPEAT, Provider: Zenaida Silva, Status: Pen, Time: 3:[address] [facility] [address] Work Phone: Start: 07-12-2021 COVID-19 Vaccine (2 - Booster for Lalo series) COVID-19 Vaccine (2 - Booster for Lalo series) [facility] Start: 02-06-2021 Patient encounter procedure ANNUAL, Provider: Zenaida Silva, Status: Pen, Time: 9:00 AM [facility] Work Phone: Start: 01-14-2021 FUV, Provider: Mayra Kennedy, Status: Pen, Time: 8:30 AM FUV, Provider: Mayra Kennedy, Status: Pen, Time: 8:[address] [facility] [address] Work Phone: Start: 11-14-2020 Influenza vaccination INFLUENZA VACCINE (#1) [facility] Start: 10-30-2020 EPV, Provider: Amanda Osborne, Status: Pen, Time: 4:40 PM EPV, Provider: Amanda Osborne, Status: Pen, Time: 4:40 PM [facility] Work Phone: Start: 2018 Colonoscopy COLORECTAL CANCER SCREENING DISCUSSION [facility] Start: 2013 Fasting lipid profile LIPID SCREENING [facility] Start: 2013 Screening mammography MAMMOGRAM SCREENING DISCUSSION [facility] Start: 12-29-1995 DTaP/Tdap/Td Vaccines (1 - Tdap) DTaP/Tdap/Td Vaccines (1 - Tdap) [facility] Start: 1994 Screening for malignant neoplasm of cervix CERVICAL CANCER SCREENING DISCUSSION [facility] Start: 1992 Hepatitis A Vaccines (1 of 2 - Risk 2-dose series) Hepatitis A Vaccines (1 of 2 - Risk 2-dose series) [facility] Start: 1992 Hepatitis B Vaccines (1 of 3 - 19+ 3-dose series) Hepatitis B Vaccines (1 of 3 - 19+ 3-dose series) [facility] Start: 1992 Third diphtheria, tetanus and acellular pertussis (DTaP) vaccination TDAP (ADULT) [facility] Start: 12-29-1991 Hepatitis C screening Hepatitis C Screening [facility] Start: 12-29-1991 Tetanus vaccination TETANUS [facility] Start: 1988 HIV screening HIV SCREENING DISCUSSION [facility] Start: 1978 COVID-19 VACCINE (1) COVID-19 VACCINE (1) [facility] Start: 1974 MMR Vaccines (1 of 1 - Standard series) MMR Vaccines (1 of 1 - Standard series) [facility] Start: 1973 Hepatitis B Vaccines (1 of 3 - 3-dose series) Hepatitis B Vaccines (1 of 3 - 3-dose series) [facility] Start: 1973 Hepatitis C antibody, confirmatory test HEPATITIS C VIRUS SCREENING [facility] Start: 1973 HIV screening HIV Screening [facility] Start: 1973 Lipid panel Lipid Panel [facility] Start: 1973 Screening for malignant neoplasm of colon [facility] Start: 1973 Yearly Adult Physical Yearly Adult Physical [facility] Anaerobic Culture Anaerobic Culture [facility] Bacteria identified in Unspecified specimen by Anaerobe culture [facility] Basic metabolic 2008 panel with ionized calcium - Serum or Plasma [facility] CBC W Auto Different ial panel - Blood [facility] CT Abdomen W contrast IV [facility] Electrocardiographic procedure [facility] Fungal Culture Fungal Culture [facility] H/O: surgery History of bladd er surgery [facility] Hemoglobin A1c/Hemoglobin.total in Blood [facility] History of tonsillectomy History of tonsillectomy and adenoidectomy [facility] Microbial culture, routine Wound Culture [facility] Patient referral [facility] Work Phone: [facility] Immunizations Immunization Date Immunization Notes Care Provider Fa cility 01-15-2024 influenza virus vaccine, unspecified formulation Amanda Osborne MD Work Phone: [facility] Work Phone: 05-31-2022 influenza, injectabl e, quadrivalent, preservative free Dr. Amanda Osborne Work Phone: [facility] 05-31-2022 influenza, seasonal, injectable Dr. Zenaida Barrett Work Phone: [facility] 05-31-2022 influenza virus vaccine, unspecified formulation Zenaida Silva MD Work Phone: [facility] Work Phone: Payers Date Payer Category Payer Self-pay [id number] 2022 [employer] [facility] [id number] 2021 Unknown 2021 Unknown [employer] [id number] 2021-Present [address] [place] [address] [id number]. [id number] 2021 Unknown [id number] 2021 Unknown [id number] 2017 Unknown [id number] 1973 Unknown [id number] .16.840.1.016728.3.579.2. 983 1973 Unknown [id number] 2.16.840.1.672920.3.579.2. 983 1973 Unknown [id number] 2.16.840.1.069011.3.579.2. 1069 1973 Unknown [id number] 2.16.840.1.070904.3.579.2. 1069 1973 Unknown [id number] 2.16.840.1.389070.3.579.2. 1069 1973 Unknown [id number] 2.16.840.1.060530.3.579.2. 356 1973 Unknown [id number] 2.16.840.1.673790.3.579.2. 356 1973 Unknown [id number] 2.16.840.1.067619.3.579.2. 356 1973 Unknown [id number] 2.16840.1.627242.3.579.2. 356 1973 Unknown [id number] 2.16.840.1.706382.3.579.2. 356 1973 Unknown [id number] .16.840.1.671306.3.579.2. 1243 1973 Unknown [id number] 2.16.840.1.551462.3.579.2. 1245 1973 Unknown [id number] 2.16.840.1.663942.3.579.2. 1244 1973 Unknown [id number] 2.16.840.1.410754.3.579.2. 1244 1973 Unknown [id number] 2.16.840.1.361296.3.579.2. 1244 1973 Unknown [id number] 2.16.840.1.080457.3.579.2. 1244 Unknown [id number] 2.16.840.1.997112.3.579.2. 462 Unknown [id number] 2.16.840.1.649691.3.579.2. 462 Unknown [id number] 2.16.840.1.913210.3.579.2. 462 Unknown [id number] 2.16.840.1.292287.3.579.2. 462 Unknown [id number] 2.16.840.1.208625.3.579.2. 462 Unknown [id number] 2.16.840.1.271359.3.579.2. 462 Unknown [id number] 2.16.840.1.807811.3.579.2. 462 Unknown [id number] 2.840.1.196859.3.579.2. 462 Unknown [id number] 2.840.1.203005.3.579.2. 462 Unknown [id number] 2.840.1.455849.3.579.2. 462 Unknown [id number] 2.840.1.748221.3.579.2. 462 Unknown [id number] 2..840.1.053075.3.579.2. 462 Unknown [id number] 2..840.1.861684.3.579.2. 462 Unknown [id number] 2.16840.1.817227.3.579.2. 462 Unknown [id number] 2.840.1.824913.3.579.2. 462 Unknown [id number] 2.16840.1.432500.3.579.2. 462 Unknown [id number] 2.16.840.1.679397.3.579.2. 462 Unknown [id number] 2.16.840.1.647839.3.579.2. 462 Unknown [id number] 2.16.840.1.656546.3.579.2. 462 Unknown [id number] 2..840.1.540993.3.579.2. 462 Unknown [id number] 2.16.840.1.922148.3.579.2. 462 Unknown [id number] 2.16.840.1.151743.3.579.2. 462 Unknown [id number] 2.16.840.1.661650.3.579.2. 462 Unknown [id number] 2.16.840.1.152216.3.579.2. 462 Unknown [id number] 2.16.840.1.504575.3.579.2. 462 Unknown [id number] 2.16.840.1.956814.3.579.2. 462 Unknown [id number] 2.16.840.1.320977.3.579.2. 462 Unknown [id number] 2.16.840.1.417455.3.579.2. 462 Unknown [id number] 2.840.1.436861.3.579.2. 462 Unknown [id number] 2.840.1.760169.3.579.2. 462 Unknown [id number] 2.840.1.146330.3.579.2. 462 Unknown [id number] 2.16840.1.523546.3.579.2. 462 Unknown [id number] 2.16.840.1.589141.3.579.2. 462 Unknown [id number] 2.16840.1.652296.3.579.2. 462 Unknown [id number] 2.16840.1.176934.3.579.2. 462 Unknown [id number] 2.16840.1.362010.3.579.2. 462 Unknown [id number] 2.16840.1.935137.3.579.2. 462 Unknown [id number] 2.16.840.1.359816.3.579.2. 462 Social History Date Type Detail Facility Start: 02-24-2023 End: 03-01-2024 Sexually active Sexually active [facility] Work Phone: Comment on above: No Living Will; Occationally; Start: 03-16-2021 End: 02-24-2023 Tobacco smoking status NHIS Ex-smoker [facility] Start: 03-16-2021 End: 02-24-2023 Tobacco use and exposure Smokeless tobacco non-user [facility] Start: 03-16-2021 End: 11-07-2024 Alcohol intake Current drinker of alcohol (finding) [facility] Start: 03-16-2021 History SDOH Alcohol Comment SOCIAL [facility] Start: 03-16-2021 Tobacco Comment QUIT 7 YEARS AGO [facility] Start: 1975 Sex Assigned At Not on file A [facility] Start: 04-01-2022 End: 01-13-2023 Tobacco smoking consumption unknown [facility] Start: 1975 Sex Assigned At Female W [facility] History of tobacco use Current smoker [facility] Work Phone: History of tobacco use Cigarette Smoker [facility] Work Phone: Start: 02-24-2023 End: 03-01-2024 Tobacco use panel [facility] Work Phone: Start: 02-24-2023 Alcohol Comment Occasionally [facility] Work Phone: Start: 02-14-2023 End: 03-21-2024 Exposure to SARS-CoV-2 (event) Not sure [facility] Start: 03-26-2023 Gender identity Identifies as female gender (finding) [facility] Work Phone: Start: 03-26-2023 Sexual orientation Heterosexual (fin ding) [facility] Work Phone: Start: 06-14-2024 Sex Female (finding) [facility] Start: 02-07-2022 Sex Female [facility] NEGATED: Highlighted row [facility] NEGATED: Highlighted row Not [facility] Medical Equipment Procedure Code Equipment Code Equipment Origin al Text Equipment Identifier Dates Reconstruction, breast, with tissue croze cutter helper FLEXHD PLIABLE PRE-XL-23X 26CM FDA Start: 10-03-2022 Reconstruction, breast, with tissue croze cutter helper FLEXHD PLIABLE PRE-XL-23X 26CM FDA Start: 10-03-2022 Reconstruction, breast, with tissue croze cutter helper Plant polysaccharide haemostatic agent, bioabsorbable ()[id number] FDA Start: 10-03-2022 Reconstruction, breast, with tissue croze cutter helper Skin-port tissue croze cutter helper ()[id number] FDA Start: 10-03-2022 Reconstruction, breast, with tissue croze cutter helper Skin-port tissue croze cutter helper ()[id number] FDA Start: 10-03-2022 Reconstruction, breast, with tissue croze cutter helper FLEXHD PLIABLE PRE-XL-23X 26CM FDA Start: 10-03-2022 Reconstruction, breast, with tissue croze cutter helper FLEXHD PLIABLE PRE-XL-23X 26CM FDA Start: 10-03-2022 Reconstruction, breast, with tissue croze cutter helper FLEXHD PLIABLE PRE-XL-23X 26CM FDA Start: 10-03-2022 Reconstruction, breast, with tissue croze cutter helper FLEXHD PLIABLE PRE-XL-23X 26CM FDA Start: 10-03-2022 Reconstruction, breast, with tissue croze cutter helper FLEXHD PLIABLE PRE-XL-23X 26CM FDA Start: 10-03-2022 Reconstruction, breast, with tissue croze cutter helper FLEXHD PLIABLE PRE-XL-23X 26CM FDA Start: 10-03-2022 Reconstruction, breast, with tissue croze cutter helper FLEXHD PLIABLE PRE-XL-23X 26CM FDA Start: 10-03-2022 Reconstruction, breast, with tissue croze cutter helper FLEXHD PLIABLE PRE-XL-23X 26CM FDA Start: 10-03-2022 Reconstruction, breast, with tissue croze cutter helper FLEXHD PLIABLE PRE-XL-23X 26CM FDA Start: 10-03-2022 Reconstruction, breast, with tissue croze cutter helper FLEXHD PLIABLE PRE-XL-23X 26CM FDA Start: 10-03-2022 Reconstruction, breast, with tissue croze cutter helper FLEXHD PLIABLE PRE-XL-23X 26CM FDA Start: 10-03-2022 Reconstruction, breast, with tissue croze cutter helper FLEXHD PLIABLE PRE-XL-23X 26CM FDA Start: 10-03-2022 Reconstruction, breast, with tissue croze cutter helper FLEXHD PLIABLE PRE-XL-23X 26CM FDA Start: 10-03-2022 Reconstruction, breast, with tissue croze cutter helper FLEXHD PLIABLE PRE-XL-23X 26CM FDA Start: 10-03-2022 Reconstruction, breast, with tissue croze cutter helper FLEXHD PLIABLE PRE-XL-23X 26CM FDA Start: 10-03-2022 Reconstruction, breast, with tissue croze cutter helper FLEXHD PLIABLE PRE-XL-23X 26CM FDA Start: 10-03-2022 Reconstruction, breast, with tissue croze cutter helper FLEXHD PLIABLE PRE-XL-23X 26CM FDA Start: 10-03-2022 Reconstruction, breast, with tissue croze cutter helper FLEXHD PLIABLE PRE-XL-23X 26CM FDA Start: 10-03-2022 Reconstruction, breast, bilateral, using MICHELLE free flap 3.0MM INVASIVE CARDIOVASCULAR TECHNOLOGIST FDA Start: 03-31-2024 Reconstruction, breast, bilateral, using MICHELLE free flap SUPERFINE MICROCLIPS TITANIUM FDA Start: 03-31-2024 Reconstruction, breast, bilateral, using MICHELLE free flap SUPERFINE MICROCLIPS TITANIUM FDA Start: 03-31-2024 Reconstruction, breast, bilateral, using MICHELLE free flap SUTURE,LIGA CLIP MED LT200 FDA Start: 03-31-2024 Reconstruction, breast, bilateral, using MICHELLE free flap SUTURE,LIGA CLIP MED LT200 FDA Start: 03-31-2024 Reconstruction, breast, bilateral, using MICHELLE free flap SUTURE,LIGA CLIP MED LT200 FDA Start: 03-31-2024 Reconstruction, breast, bilateral, using MICHELLE free flap SUTURE,LIGA CLIP MED LT200 FDA Start: 03-31-2024 Reconstruction, breast, bilateral, using MICHELLE free flap SUTURE,LIGA CLIP MED LT200 FDA Start: 03-31-2024 Reconstruction, breast, bilateral, using MICHELLE free flap SUTURE,LIGA CLIP MED LT200 FDA Start: 03-31-2024 Reconstruction, breast, bilateral, using MICHELLE free flap SUTURE,LIGA CLIP MED LT200 FDA Start: 03-31-2024 Reconstruction, breast, bilateral, using MICHELLE free flap SUTURE,LIGA CLIP MED LT200 FDA Start: 03-31-2024 Reconstruction, breast, bilateral, using MICHELLE free flap 3.0MM INVASIVE CARDIOVASCULAR TECHNOLOGIST FDA Start: 03-31-2024 Reconstruction, breast, bilateral, using MICHELLE free flap SUTURE,LIGA CLIP MED LT200 FDA Start: 03-31-2024 Reconstruction, breast, bilateral, using MICHELLE free flap SUTURE,LIGA CLIP MED LT200 FDA Start: 03-31-2024 Reconstruction, breast, bilateral, using MICHELLE free flap SUTURE,LIGA CLIP MED LT200 FDA Start: 03-31-2024 Reconstruction, breast, bilateral, using MICHELLE free flap SUTURE,LIGA CLIP MED LT200 FDA Start: 03-31-2024 Reconstruction, breast, bilateral, using MICHELLE free flap SUTURE,LIGA CLIP MED LT200 FDA Start: 03-31-2024 Reconstruction, breast, bilateral, using MICHELLE free flap SUTURE,LIGA CLIP MED LT200 FDA Start: 03-31-2024 Reconstruction, breast, bilateral, using MICHELLE free flap SUTURE,LIGA CLIP MED LT200 FDA Start: 03-31-2024 Reconstruction, breast, bilateral, using MICHELLE free flap SUTURE,LIGA CLIP MED LT200 FDA Start: 03-31-2024 Reconstruction, breast, bilateral, using MICHELLE free flap SUTURE,LIGA CLIP MED LT200 FDA Start: 03-31-2024 Reconstruction, breast, bilateral, using MICHELLE free flap SUTURE,LIGA CLIP MED LT200 FDA Start: 03-31-2024 Reconstruction, breast, bilateral, using MICHELLE free flap 3.0MM INVASIVE CARDIOVASCULAR TECHNOLOGIST FDA Start: 03-31-2024 Reconstruction, breast, bilateral, using MICHELLE free flap SUTURE,LIGA CLIP SM LT-100 FDA Start: 03-31-2024 Reconstruction, breast, bilateral, using MICHELLE free flap SUTURE,LIGA CLIP SM LT-100 FDA Start: 03-31-2024 Reconstruction, breast, bilateral, using MICHELLE free flap SUTURE,LIGA CLIP SM LT-100 FDA Start: 03-31-2024 Reconstruction, breast, bilateral, using MICHELLE free flap SUTURE,LIGA CLIP SM LT-100 FDA Start: 03-31-2024 Reconstruction, breast, bilateral, using MICHELLE free flap SUTURE,LIGA CLIP SM LT-100 FDA Start: 03-31-2024 Reconstruction, breast, bilateral, using MICHELLE free flap SUTURE,LIGA CLIP SM LT-100 FDA Start: 03-31-2024 Reconstruction, breast, bilateral, using MICHELLE free flap SUTURE,LIGA CLIP SM LT-100 FDA Start: 03-31-2024 Reconstruction, breast, bilateral, using MICHELLE free flap SUTURE,LIGA CLIP SM LT-100 FDA Start: 03-31-2024 Reconstruction, breast, bilateral, using MICHELLE free flap SUTURE,LIGA CLIP SM LT-100 FDA Start: 03-31-2024 Reconstruction, breast, bilateral, using MICHELLE free flap SUTURE,LIGA CLIP SM LT-100 FDA Start: 03-31-2024 Reconstruction, breast, bilateral, using MICHELLE free flap MICRO CLIP TITANIUM FDA Start: 03-31-2024 Reconstruction, breast, bilateral, using MICHELLE free flap SUTURE,LIGA CLIP SM LT-100 FDA Start: 03-31-2024 Reconstruction, breast, bilateral, using MICHELLE free flap SUTURE,LIGA CLIP SM LT-100 FDA Start: 03-31-2024 Reconstruction, breast, bilateral, using MICHELLE free flap MICRO CLIP TITANIUM FDA Start: 03-31-2024 Reconstruction, breast, bilateral, using MICHELLE free flap MICRO CLIP TITANIUM FDA Start: 03-31-2024 Reconstruction, breast, bilateral, using MICHELLE free flap NERVE CONNECTOR 2MM X 10MM FDA Start: 03-31-2024 Reconstruction, breast, bilateral, using MICHELLE free flap NERVE GRAFT 1-2MM X 70MM FDA Start: 03-31-2024 Reconstruction, breast, bilateral, using MICHELLE free flap SUPERFINE MICROCLIPS TITANIUM FDA Start: 03-31-2024 Reconstruction, breast, bilateral, using MICHELLE free flap 3.0MM INVASIVE CARDIOVASCULAR TECHNOLOGIST FDA Start: 03-31-2024 Reconstruction, breast, bilateral, using MICHELLE free flap SUPERFINE MICROCLIPS TITANIUM FDA Start: 03-31-2024 Reconstruction, breast, bilateral, using MICHELLE free flap SUPERFINE MICROCLIPS TITANIUM FDA Start: 03-31-2024 Reconstruction, breast, bilateral, using MICHELLE free flap SUTURE,LIGA CLIP MED LT200 FDA Start: 03-31-2024 Reconstruction, breast, bilateral, using MICHELLE free flap SUTURE,LIGA CLIP MED LT200 FDA Start: 03-31-2024 Reconstruction, breast, bilateral, using MICHELLE free flap SUTURE,LIGA CLIP MED LT200 FDA Start: 03-31-2024 Reconstruction, breast, bilateral, using MICHELLE free flap SUTURE,LIGA CLIP MED LT200 FDA Start: 03-31-2024 Reconstruction, breast, bilateral, using MICHELLE free flap SUTURE,LIGA CLIP MED LT200 FDA Start: 03-31-2024 Reconstruction, breast, bilateral, using MICHELLE free flap SUTURE,LIGA CLIP MED LT200 FDA Start: 03-31-2024 Reconstruction, breast, bilateral, using MICHELLE free flap SUTURE,LIGA CLIP MED LT200 FDA Start: 03-31-2024 Reconstruction, breast, bilateral, using MICHELLE free flap SUTURE,LIGA CLIP MED LT200 FDA Start: 03-31-2024 Reconstruction, breast, bilateral, using MICHELLE free flap 3.0MM INVASIVE CARDIOVASCULAR TECHNOLOGIST FDA Start: 03-31-2024 Reconstruction, breast, bilateral, using MICHELLE free flap SUTURE,LIGA CLIP MED LT200 FDA Start: 03-31-2024 Reconstruction, breast, bilateral, using MICHELLE free flap SUTURE,LIGA CLIP MED LT200 FDA Start: 03-31-2024 Reconstruction, breast, bilateral, using MICHELLE free flap SUTURE,LIGA CLIP MED LT200 FDA Start: 03-31-2024 Reconstruction, breast, bilateral, using MICHELLE free flap SUTURE,LIGA CLIP MED LT200 FDA Start: 03-31-2024 Reconstruction, breast, bilateral, using MICHELLE free flap SUTURE,LIGA CLIP MED LT200 FDA Start: 03-31-2024 Reconstruction, breast, bilateral, using MICHELLE free flap SUTURE,LIGA CLIP MED LT200 FDA Start: 03-31-2024 Reconstruction, breast, bilateral, using MICHELLE free flap SUTURE,LIGA CLIP MED LT200 FDA Start: 03-31-2024 Reconstruction, breast, bilateral, using MICHELLE free flap SUTURE,LIGA CLIP MED LT200 FDA Start: 03-31-2024 Reconstruction, breast, bilateral, using MICHELLE free flap SUTURE,LIGA CLIP MED LT200 FDA Start: 03-31-2024 Reconstruction, breast, bilateral, using MICHELLE free flap SUTURE,LIGA CLIP MED LT200 FDA Start: 03-31-2024 Reconstruction, breast, bilateral, using MICHELLE free flap 3.0MM INVASIVE CARDIOVASCULAR TECHNOLOGIST FDA Start: 03-31-2024 Reconstruction, breast, bilateral, using MICHELLE free flap SUTURE,LIGA CLIP SM LT-100 FDA Start: 03-31-2024 Reconstruction, breast, bilateral, using MICHELLE free flap SUTURE,LIGA CLIP SM LT-100 FDA Start: 03-31-2024 Reconstruction, breast, bilateral, using MICHELLE free flap SUTURE,LIGA CLIP SM LT-100 FDA Start: 03-31-2024 Reconstruction, breast, bilateral, using MICHELLE free flap SUTURE,LIGA CLIP SM LT-100 FDA Start: 03-31-2024 Reconstruction, breast, bilateral, using MICHELLE free flap SUTURE,LIGA CLIP SM LT-100 FDA Start: 03-31-2024 Reconstruction, breast, bilateral, using MICHELLE free flap SUTURE,LIGA CLIP SM LT-100 FDA Start: 03-31-2024 Reconstruction, breast, bilateral, using MICHELLE free flap SUTURE,LIGA CLIP SM LT-100 FDA Start: 03-31-2024 Reconstruction, breast, bilateral, using MICHELLE free flap SUTURE,LIGA CLIP SM LT-100 FDA Start: 03-31-2024 Reconstruction, breast, bilateral, using MICHELLE free flap SUTURE,LIGA CLIP SM LT-100 FDA Start: 03-31-2024 Reconstruction, breast, bilateral, using MICHELLE free flap SUTURE,LIGA CLIP SM LT-100 FDA Start: 03-31-2024 Reconstruction, breast, bilateral, using MICHELLE free flap MICRO CLIP TITANIUM FDA Start: 03-31-2024 Reconstruction, breast, bilateral, using MICHELLE free flap SUTURE,LIGA CLIP SM LT-100 FDA Start: 03-31-2024 Reconstruction, breast, bilateral, using MICHELLE free flap SUTURE,LIGA CLIP SM LT-100 FDA Start: 03-31-2024 Reconstruction, breast, bilateral, using MICHELLE free flap MICRO CLIP TITANIUM FDA Start: 03-31-2024 Reconstruction, breast, bilateral, using MICHELLE free flap MICRO CLIP TITANIUM FDA Start: 03-31-2024 Reconstruction, breast, bilateral, using MICHELLE free flap NERVE CONNECTOR 2MM X 10MM FDA Start: 03-31-2024 Reconstruction, breast, bilateral, using MICHELLE free flap NERVE GRAFT 1-2MM X 70MM FDA Start: 03-31-2024 Reconstruction, breast, bilateral, using MICHELLE free flap SUPERFINE MICROCLIPS TITANIUM FDA Start: 03-31-2024 Reconstruction, breast, bilateral, using MICHELLE free flap 3.0MM INVASIVE CARDIOVASCULAR TECHNOLOGIST FDA Start: 03-31-2024 Reconstruction, breast, bilateral, using MICHELLE free flap SUPERFINE MICROCLIPS TITANIUM FDA Start: 03-31-2024 Reconstruction, breast, bilateral, using MICHELLE free flap SUPERFINE MICROCLIPS TITANIUM FDA Start: 03-31-2024 Reconstruction, breast, bilateral, using MICHELLE free flap SUTURE,LIGA CLIP MED LT200 FDA Start: 03-31-2024 Reconstruction, breast, bilateral, using MICHELLE free flap SUTURE,LIGA CLIP MED LT200 FDA Start: 03-31-2024 Reconstruction, breast, bilateral, using MICHELLE free flap SUTURE,LIGA CLIP MED LT200 FDA Start: 03-31-2024 Reconstruction, breast, bilateral, using MICHELLE free flap SUTURE,LIGA CLIP MED LT200 FDA Start: 03-31-2024 Reconstruction, breast, bilateral, using MICHELLE free flap SUTURE,LIGA CLIP MED LT200 FDA Start: 03-31-2024 Reconstruction, breast, bilateral, using MICHELLE free flap SUTURE,LIGA CLIP MED LT200 FDA Start: 03-31-2024 Reconstruction, breast, bilateral, using MICHELLE free flap SUTURE,LIGA CLIP MED LT200 FDA Start: 03-31-2024 Reconstruction, breast, bilateral, using MICHELLE free flap SUTURE,LIGA CLIP MED LT200 FDA Start: 03-31-2024 Reconstruction, breast, bilateral, using MICHELLE free flap 3.0MM INVASIVE CARDIOVASCULAR TECHNOLOGIST FDA Start: 03-31-2024 Reconstruction, breast, bilateral, using MICHELLE free flap SUTURE,LIGA CLIP MED LT200 FDA Start: 03-31-2024 Reconstruction, breast, bilateral, using MICHELLE free flap SUTURE,LIGA CLIP MED LT200 FDA Start: 03-31-2024 Reconstruction, breast, bilateral, using MICHELLE free flap SUTURE,LIGA CLIP MED LT200 FDA Start: 03-31-2024 Reconstruction, breast, bilateral, using MICHELLE free flap SUTURE,LIGA CLIP MED LT200 FDA Start: 03-31-2024 Reconstruction, breast, bilateral, using MICHELLE free flap SUTURE,LIGA CLIP MED LT200 FDA Start: 03-31-2024 Reconstruction, breast, bilateral, using MICHELLE free flap SUTURE,LIGA CLIP MED LT200 FDA Start: 03-31-2024 Reconstruction, breast, bilateral, using MICHELLE free flap SUTURE,LIGA CLIP MED LT200 FDA Start: 03-31-2024 Reconstruction, breast, bilateral, using MICHELLE free flap SUTURE,LIGA CLIP MED LT200 FDA Start: 03-31-2024 Reconstruction, breast, bilateral, using MICHELLE free flap SUTURE,LIGA CLIP MED LT200 FDA Start: 03-31-2024 Reconstruction, breast, bilateral, using MICHELLE free flap SUTURE,LIGA CLIP MED LT200 FDA Start: 03-31-2024 Reconstruction, breast, bilateral, using MICHELLE free flap 3.0MM INVASIVE CARDIOVASCULAR TECHNOLOGIST FDA Start: 03-31-2024 Reconstruction, breast, bilateral, using MICHELLE free flap SUTURE,LIGA CLIP SM LT-100 FDA Start: 03-31-2024 Reconstruction, breast, bilateral, using MICHELLE free flap SUTURE,LIGA CLIP SM LT-100 FDA Start: 03-31-2024 Reconstruction, breast, bilateral, using MICHELLE free flap SUTURE,LIGA CLIP SM LT-100 FDA Start: 03-31-2024 Reconstruction, breast, bilateral, using MICHELLE free flap SUTURE,LIGA CLIP SM LT-100 FDA Start: 03-31-2024 Reconstruction, breast, bilateral, using MICHELLE free flap SUTURE,LIGA CLIP SM LT-100 FDA Start: 03-31-2024 Reconstruction, breast, bilateral, using MICHELLE free flap SUTURE,LIGA CLIP SM LT-100 FDA Start: 03-31-2024 Reconstruction, breast, bilateral, using MICHELLE free flap SUTURE,LIGA CLIP SM LT-100 FDA Start: 03-31-2024 Reconstruction, breast, bilateral, using MICHELLE free flap SUTURE,LIGA CLIP SM LT-100 FDA Start: 03-31-2024 Reconstruction, breast, bilateral, using MICHELLE free flap SUTURE,LIGA CLIP SM LT-100 FDA Start: 03-31-2024 Reconstruction, breast, bilateral, using MICHELLE free flap SUTURE,LIGA CLIP SM LT-100 FDA Start: 03-31-2024 Reconstruction, breast, bilateral, using MICHELLE free flap MICRO CLIP TITANIUM FDA Start: 03-31-2024 Reconstruction, breast, bilateral, using MICHELLE free flap SUTURE,LIGA CLIP SM LT-100 FDA Start: 03-31-2024 Reconstruction, breast, bilateral, using MICHELLE free flap SUTURE,LIGA CLIP SM LT-100 FDA Start: 03-31-2024 Reconstruction, breast, bilateral, using MICHELLE free flap MICRO CLIP TITANIUM FDA Start: 03-31-2024 Reconstruction, breast, bilateral, using MICHELLE free flap MICRO CLIP TITANIUM FDA Start: 03-31-2024 Reconstruction, breast, bilateral, using MICHELLE free flap NERVE CONNECTOR 2MM X 10MM FDA Start: 03-31-2024 Reconstruction, breast, bilateral, using MICHELLE free flap NERVE GRAFT 1-2MM X 70MM FDA Start: 03-31-2024 Reconstruction, breast, bilateral, using MICHELLE free flap SUPERFINE MICROCLIPS TITANIUM FDA Start: 03-31-2024 Reconstruction, breast, bilateral, using MICHELLE free flap 3.0MM INVASIVE CARDIOVASCULAR TECHNOLOGIST FDA Start: 03-31-2024 Reconstruction, breast, bilateral, using MICHELLE free flap SUPERFINE MICROCLIPS TITANIUM FDA Start: 03-31-2024 Reconstruction, breast, bilateral, using MICHELLE free flap SUPERFINE MICROCLIPS TITANIUM FDA Start: 03-31-2024 Reconstruction, breast, bilateral, using MICHELLE free flap SUTURE,LIGA CLIP MED LT200 FDA Start: 03-31-2024 Reconstruction, breast, bilateral, using MICHELLE free flap SUTURE,LIGA CLIP MED LT200 FDA Start: 03-31-2024 Reconstruction, breast, bilateral, using MICHELLE free flap SUTURE,LIGA CLIP MED LT200 FDA Start: 03-31-2024 Reconstruction, breast, bilateral, using MICHELLE free flap SUTURE,LIGA CLIP MED LT200 FDA Start: 03-31-2024 Reconstruction, breast, bilateral, using MICHELLE free flap SUTURE,LIGA CLIP MED LT200 FDA Start: 03-31-2024 Reconstruction, breast, bilateral, using MICHELLE free flap SUTURE,LIGA CLIP MED LT200 FDA Start: 03-31-2024 Reconstruction, breast, bilateral, using MICHELLE free flap SUTURE,LIGA CLIP MED LT200 FDA Start: 03-31-2024 Reconstruction, breast, bilateral, using MICHELLE free flap SUTURE,LIGA CLIP MED LT200 FDA Start: 03-31-2024 Reconstruction, breast, bilateral, using MICHELLE free flap 3.0MM INVASIVE CARDIOVASCULAR TECHNOLOGIST FDA Start: 03-31-2024 Reconstruction, breast, bilateral, using MICHELLE free flap SUTURE,LIGA CLIP MED LT200 FDA Start: 03-31-2024 Reconstruction, breast, bilateral, using MICHELLE free flap SUTURE,LIGA CLIP MED LT200 FDA Start: 03-31-2024 Reconstruction, breast, bilateral, using MICHELLE free flap SUTURE,LIGA CLIP MED LT200 FDA Start: 03-31-2024 Reconstruction, breast, bilateral, using MICHELLE free flap SUTURE,LIGA CLIP MED LT200 FDA Start: 03-31-2024 Reconstruction, breast, bilateral, using MICHELLE free flap SUTURE,LIGA CLIP MED LT200 FDA Start: 03-31-2024 Reconstruction, breast, bilateral, using MICHELLE free flap SUTURE,LIGA CLIP MED LT200 FDA Start: 03-31-2024 Reconstruction, breast, bilateral, using MICHELLE free flap SUTURE,LIGA CLIP MED LT200 FDA Start: 03-31-2024 Reconstruction, breast, bilateral, using MICHELLE free flap SUTURE,LIGA CLIP MED LT200 FDA Start: 03-31-2024 Reconstruction, breast, bilateral, using MICHELLE free flap SUTURE,LIGA CLIP MED LT200 FDA Start: 03-31-2024 Reconstruction, breast, bilateral, using MICHELLE free flap SUTURE,LIGA CLIP MED LT200 FDA Start: 03-31-2024 Reconstruction, breast, bilateral, using MICHELLE free flap 3.0MM INVASIVE CARDIOVASCULAR TECHNOLOGIST FDA Start: 03-31-2024 Reconstruction, breast, bilateral, using MICHELLE free flap SUTURE,LIGA CLIP SM LT-100 FDA Start: 03-31-2024 Reconstruction, breast, bilateral, using MICHELLE free flap SUTURE,LIGA CLIP SM LT-100 FDA Start: 03-31-2024 Reconstruction, breast, bilateral, using MICHELLE free flap SUTURE,LIGA CLIP SM LT-100 FDA Start: 03-31-2024 Reconstruction, breast, bilateral, using MICHELLE free flap SUTURE,LIGA CLIP SM LT-100 FDA Start: 03-31-2024 Reconstruction, breast, bilateral, using MICHELLE free flap SUTURE,LIGA CLIP SM LT-100 FDA Start: 03-31-2024 Reconstruction, breast, bilateral, using MICHELLE free flap SUTURE,LIGA CLIP SM LT-100 FDA Start: 03-31-2024 Reconstruction, breast, bilateral, using MICHELLE free flap SUTURE,LIGA CLIP SM LT-100 FDA Start: 03-31-2024 Reconstruction, breast, bilateral, using MICHELLE free flap SUTURE,LIGA CLIP SM LT-100 FDA Start: 03-31-2024 Reconstruction, breast, bilateral, using MICHELLE free flap SUTURE,LIGA CLIP SM LT-100 FDA Start: 03-31-2024 Reconstruction, breast, bilateral, using MICHELLE free flap SUTURE,LIGA CLIP SM LT-100 FDA Start: 03-31-2024 Reconstruction, breast, bilateral, using MICHELLE free flap MICRO CLIP TITANIUM FDA Start: 03-31-2024 Reconstruction, breast, bilateral, using MICHELLE free flap SUTURE,LIGA CLIP SM LT-100 FDA Start: 03-31-2024 Reconstruction, breast, bilateral, using MICHELLE free flap SUTURE,LIGA CLIP SM LT-100 FDA Start: 03-31-2024 Reconstruction, breast, bilateral, using MICHELLE free flap MICRO CLIP TITANIUM FDA Start: 03-31-2024 Reconstruction, breast, bilateral, using MICHELLE free flap MICRO CLIP TITANIUM FDA Start: 03-31-2024 Reconstruction, breast, bilateral, using MICHELLE free flap NERVE CONNECTOR 2MM X 10MM FDA Start: 03-31-2024 Reconstruction, breast, bilateral, using MICHELLE free flap NERVE GRAFT 1-2MM X 70MM FDA Start: 03-31-2024 Reconstruction, breast, bilateral, using MICHELLE free flap SUPERFINE MICROCLIPS TITANIUM FDA Start: 03-31-2024 Reconstruction, breast, bilateral, using MICHELLE free flap 3.0MM INVASIVE CARDIOVASCULAR TECHNOLOGIST FDA Start: 03-31-2024 Reconstruction, breast, bilateral, using MICHELLE free flap SUPERFINE MICROCLIPS TITANIUM FDA Start: 03-31-2024 Reconstruction, breast, bilateral, using MICHELLE free flap SUPERFINE MICROCLIPS TITANIUM FDA Start: 03-31-2024 Reconstruction, breast, bilateral, using MICHELLE free flap SUTURE,LIGA CLIP MED LT200 FDA Start: 03-31-2024 Reconstruction, breast, bilateral, using MICHELLE free flap SUTURE,LIGA CLIP MED LT200 FDA Start: 03-31-2024 Reconstruction, breast, bilateral, using MICHELLE free flap SUTURE,LIGA CLIP MED LT200 FDA Start: 03-31-2024 Reconstruction, breast, bilateral, using MICHELLE free flap SUTURE,LIGA CLIP MED LT200 FDA Start: 03-31-2024 Reconstruction, breast, bilateral, using MICHELLE free flap SUTURE,LIGA CLIP MED LT200 FDA Start: 03-31-2024 Reconstruction, breast, bilateral, using MICHELLE free flap SUTURE,LIGA CLIP MED LT200 FDA Start: 03-31-2024 Reconstruction, breast, bilateral, using MICHELLE free flap SUTURE,LIGA CLIP MED LT200 FDA Start: 03-31-2024 Reconstruction, breast, bilateral, using MICHELLE free flap SUTURE,LIGA CLIP MED LT200 FDA Start: 03-31-2024 Reconstruction, breast, bilateral, using MICHELLE free flap 3.0MM INVASIVE CARDIOVASCULAR TECHNOLOGIST FDA Start: 03-31-2024 Reconstruction, breast, bilateral, using MICHELLE free flap SUTURE,LIGA CLIP MED LT200 FDA Start: 03-31-2024 Reconstruction, breast, bilateral, using MICHELLE free flap SUTURE,LIGA CLIP MED LT200 FDA Start: 03-31-2024 Reconstruction, breast, bilateral, using MICHELLE free flap SUTURE,LIGA CLIP MED LT200 FDA Start: 03-31-2024 Reconstruction, breast, bilateral, using MICHELLE free flap SUTURE,LIGA CLIP MED LT200 FDA Start: 03-31-2024 Reconstruction, breast, bilateral, using MICHELLE free flap SUTURE,LIGA CLIP MED LT200 FDA Start: 03-31-2024 Reconstruction, breast, bilateral, using MICHELLE free flap SUTURE,LIGA CLIP MED LT200 FDA Start: 03-31-2024 Reconstruction, breast, bilateral, using MICHELLE free flap SUTURE,LIGA CLIP MED LT200 FDA Start: 03-31-2024 Reconstruction, breast, bilateral, using MICHELLE free flap SUTURE,LIGA CLIP MED LT200 FDA Start: 03-31-2024 Reconstruction, breast, bilateral, using MICHELLE free flap SUTURE,LIGA CLIP MED LT200 FDA Start: 03-31-2024 Reconstruction, breast, bilateral, using MICHELLE free flap SUTURE,LIGA CLIP MED LT200 FDA Start: 03-31-2024 Reconstruction, breast, bilateral, using MICHELLE free flap 3.0MM INVASIVE CARDIOVASCULAR TECHNOLOGIST FDA Start: 03-31-2024 Reconstruction, breast, bilateral, using MICHELLE free flap SUTURE,LIGA CLIP SM LT-100 FDA Start: 03-31-2024 Reconstruction, breast, bilateral, using MICHELLE free flap SUTURE,LIGA CLIP SM LT-100 FDA Start: 03-31-2024 Reconstruction, breast, bilateral, using MICHELLE free flap SUTURE,LIGA CLIP SM LT-100 FDA Start: 03-31-2024 Reconstruction, breast, bilateral, using MICHELLE free flap SUTURE,LIGA CLIP SM LT-100 FDA Start: 03-31-2024 Reconstruction, breast, bilateral, using MICHELLE free flap SUTURE,LIGA CLIP SM LT-100 FDA Start: 03-31-2024 Reconstruction, breast, bilateral, using MICHELLE free flap SUTURE,LIGA CLIP SM LT-100 FDA Start: 03-31-2024 Reconstruction, breast, bilateral, using MICHELLE free flap SUTURE,LIGA CLIP SM LT-100 FDA Start: 03-31-2024 Reconstruction, breast, bilateral, using MICHELLE free flap SUTURE,LIGA CLIP SM LT-100 FDA Start: 03-31-2024 Reconstruction, breast, bilateral, using MICHELLE free flap SUTURE,LIGA CLIP SM LT-100 FDA Start: 03-31-2024 Reconstruction, breast, bilateral, using MICHELLE free flap SUTURE,LIGA CLIP SM LT-100 FDA Start: 03-31-2024 Reconstruction, breast, bilateral, using MICHELLE free flap MICRO CLIP TITANIUM FDA Start: 03-31-2024 Reconstruction, breast, bilateral, using MICHELLE free flap SUTURE,LIGA CLIP SM LT-100 FDA Start: 03-31-2024 Reconstruction, breast, bilateral, using MICHELLE free flap SUTURE,LIGA CLIP SM LT-100 FDA Start: 03-31-2024 Reconstruction, breast, bilateral, using MICHELLE free flap MICRO CLIP TITANIUM FDA Start: 03-31-2024 Reconstruction, breast, bilateral, using MICHELLE free flap MICRO CLIP TITANIUM FDA Start: 03-31-2024 Reconstruction, breast, bilateral, using MICHELLE free flap NERVE CONNECTOR 2MM X 10MM FDA Start: 03-31-2024 Reconstruction, breast, bilateral, using MICHELLE free flap NERVE GRAFT 1-2MM X 70MM FDA Start: 03-31-2024 Reconstruction, breast, bilateral, using MICHELLE free flap SUPERFINE MICROCLIPS TITANIUM FDA Start: 03-31-2024 Reconstruction, breast, bilateral, using MICHELLE free flap 3.0MM INVASIVE CARDIOVASCULAR TECHNOLOGIST FDA Start: 03-31-2024 Reconstruction, breast, bilateral, using MICHELLE free flap SUPERFINE MICROCLIPS TITANIUM FDA Start: 03-31-2024 Reconstruction, breast, bilateral, using MICHELLE free flap SUPERFINE MICROCLIPS TITANIUM FDA Start: 03-31-2024 Reconstruction, breast, bilateral, using MICHELLE free flap SUTURE,LIGA CLIP MED LT200 FDA Start: 03-31-2024 Reconstruction, breast, bilateral, using MICHELLE free flap SUTURE,LIGA CLIP MED LT200 FDA Start: 03-31-2024 Reconstruction, breast, bilateral, using MICHELLE free flap SUTURE,LIGA CLIP MED LT200 FDA Start: 03-31-2024 Reconstruction, breast, bilateral, using MICHELLE free flap SUTURE,LIGA CLIP MED LT200 FDA Start: 03-31-2024 Reconstruction, breast, bilateral, using MICHELLE free flap SUTURE,LIGA CLIP MED LT200 FDA Start: 03-31-2024 Reconstruction, breast, bilateral, using MICHELLE free flap SUTURE,LIGA CLIP MED LT200 FDA Start: 03-31-2024 Reconstruction, breast, bilateral, using MICHELLE free flap SUTURE,LIGA CLIP MED LT200 FDA Start: 03-31-2024 Reconstruction, breast, bilateral, using MICHELLE free flap SUTURE,LIGA CLIP MED LT200 FDA Start: 03-31-2024 Reconstruction, breast, bilateral, using MICHELLE free flap 3.0MM INVASIVE CARDIOVASCULAR TECHNOLOGIST FDA Start: 03-31-2024 Reconstruction, breast, bilateral, using MICHELLE free flap SUTURE,LIGA CLIP MED LT200 FDA Start: 03-31-2024 Reconstruction, breast, bilateral, using MICHELLE free flap SUTURE,LIGA CLIP MED LT200 FDA Start: 03-31-2024 Reconstruction, breast, bilateral, using MICHELLE free flap SUTURE,LIGA CLIP MED LT200 FDA Start: 03-31-2024 Reconstruction, breast, bilateral, using MICHELLE free flap SUTURE,LIGA CLIP MED LT200 FDA Start: 03-31-2024 Reconstruction, breast, bilateral, using MICHELLE free flap SUTURE,LIGA CLIP MED LT200 FDA Start: 03-31-2024 Reconstruction, breast, bilateral, using MICHELLE free flap SUTURE,LIGA CLIP MED LT200 FDA Start: 03-31-2024 Reconstruction, breast, bilateral, using MICHELLE free flap SUTURE,LIGA CLIP MED LT200 FDA Start: 03-31-2024 Reconstruction, breast, bilateral, using MICHELLE free flap SUTURE,LIGA CLIP MED LT200 FDA Start: 03-31-2024 Reconstruction, breast, bilateral, using MICHELLE free flap SUTURE,LIGA CLIP MED LT200 FDA Start: 03-31-2024 Reconstruction, breast, bilateral, using MICHELLE free flap SUTURE,LIGA CLIP MED LT200 FDA Start: 03-31-2024 Reconstruction, breast, bilateral, using MICHELLE free flap 3.0MM INVASIVE CARDIOVASCULAR TECHNOLOGIST FDA Start: 03-31-2024 Reconstruction, breast, bilateral, using MICHELLE free flap SUTURE,LIGA CLIP SM LT-100 FDA Start: 03-31-2024 Reconstruction, breast, bilateral, using MICHELLE free flap SUTURE,LIGA CLIP SM LT-100 FDA Start: 03-31-2024 Reconstruction, breast, bilateral, using MICHELLE free flap SUTURE,LIGA CLIP SM LT-100 FDA Start: 03-31-2024 Reconstruction, breast, bilateral, using MICHELLE free flap SUTURE,LIGA CLIP SM LT-100 FDA Start: 03-31-2024 Reconstruction, breast, bilateral, using MICHELLE free flap SUTURE,LIGA CLIP SM LT-100 FDA Start: 03-31-2024 Reconstruction, breast, bilateral, using MICHELLE free flap SUTURE,LIGA CLIP SM LT-100 FDA Start: 03-31-2024 Reconstruction, breast, bilateral, using MICHELLE free flap SUTURE,LIGA CLIP SM LT-100 FDA Start: 03-31-2024 Reconstruction, breast, bilateral, using MICHELLE free flap SUTURE,LIGA CLIP SM LT-100 FDA Start: 03-31-2024 Reconstruction, breast, bilateral, using MICHELLE free flap SUTURE,LIGA CLIP SM LT-100 FDA Start: 03-31-2024 Reconstruction, breast, bilateral, using MICHELLE free flap SUTURE,LIGA CLIP SM LT-100 FDA Start: 03-31-2024 Reconstruction, breast, bilateral, using MICHELLE free flap MICRO CLIP TITANIUM FDA Start: 03-31-2024 Reconstruction, breast, bilateral, using MICHELLE free flap SUTURE,LIGA CLIP SM LT-100 FDA Start: 03-31-2024 Reconstruction, breast, bilateral, using MICHELLE free flap SUTURE,LIGA CLIP SM LT-100 FDA Start: 03-31-2024 Reconstruction, breast, bilateral, using MICHELLE free flap MICRO CLIP TITANIUM FDA Start: 03-31-2024 Reconstruction, breast, bilateral, using MICHELLE free flap MICRO CLIP TITANIUM FDA Start: 03-31-2024 Reconstruction, breast, bilateral, using MICHELLE free flap NERVE CONNECTOR 2MM X 10MM FDA Start: 03-31-2024 Reconstruction, breast, bilateral, using MICHELLE free flap NERVE GRAFT 1-2MM X 70MM FDA Start: 03-31-2024 Reconstruction, breast, bilateral, using MICHELLE free flap SUPERFINE MICROCLIPS TITANIUM FDA Start: 03-31-2024 Reconstruction, breast, bilateral, using MICHELLE free flap 3.0MM INVASIVE CARDIOVASCULAR TECHNOLOGIST FDA Start: 03-31-2024 Reconstruction, breast, bilateral, using MICHELLE free flap SUPERFINE MICROCLIPS TITANIUM FDA Start: 03-31-2024 Reconstruction, breast, bilateral, using MICHELLE free flap SUPERFINE MICROCLIPS TITANIUM FDA Start: 03-31-2024 Reconstruction, breast, bilateral, using MICHELLE free flap SUTURE,LIGA CLIP MED LT200 FDA Start: 03-31-2024 Reconstruction, breast, bilateral, using MICHELLE free flap SUTURE,LIGA CLIP MED LT200 FDA Start: 03-31-2024 Reconstruction, breast, bilateral, using MICHELLE free flap SUTURE,LIGA CLIP MED LT200 FDA Start: 03-31-2024 Reconstruction, breast, bilateral, using MICHELLE free flap SUTURE,LIGA CLIP MED LT200 FDA Start: 03-31-2024 Reconstruction, breast, bilateral, using MICHELLE free flap SUTURE,LIGA CLIP MED LT200 FDA Start: 03-31-2024 Reconstruction, breast, bilateral, using MICHELLE free flap SUTURE,LIGA CLIP MED LT200 FDA Start: 03-31-2024 Reconstruction, breast, bilateral, using MICHELLE free flap SUTURE,LIGA CLIP MED LT200 FDA Start: 03-31-2024 Reconstruction, breast, bilateral, using MICHELLE free flap SUTURE,LIGA CLIP MED LT200 FDA Start: 03-31-2024 Reconstruction, breast, bilateral, using MICHELLE free flap 3.0MM INVASIVE CARDIOVASCULAR TECHNOLOGIST FDA Start: 03-31-2024 Reconstruction, breast, bilateral, using MICHELLE free flap SUTURE,LIGA CLIP MED LT200 FDA Start: 03-31-2024 Reconstruction, breast, bilateral, using MICHELLE free flap SUTURE,LIGA CLIP MED LT200 FDA Start: 03-31-2024 Reconstruction, breast, bilateral, using MICHELLE free flap SUTURE,LIGA CLIP MED LT200 FDA Start: 03-31-2024 Reconstruction, breast, bilateral, using MICHELLE free flap SUTURE,LIGA CLIP MED LT200 FDA Start: 03-31-2024 Reconstruction, breast, bilateral, using MICHELLE free flap SUTURE,LIGA CLIP MED LT200 FDA Start: 03-31-2024 Reconstruction, breast, bilateral, using MICHELLE free flap SUTURE,LIGA CLIP MED LT200 FDA Start: 03-31-2024 Reconstruction, breast, bilateral, using MICHELLE free flap SUTURE,LIGA CLIP MED LT200 FDA Start: 03-31-2024 Reconstruction, breast, bilateral, using MICHELLE free flap SUTURE,LIGA CLIP MED LT200 FDA Start: 03-31-2024 Reconstruction, breast, bilateral, using MICHELLE free flap SUTURE,LIGA CLIP MED LT200 FDA Start: 03-31-2024 Reconstruction, breast, bilateral, using MICHELLE free flap SUTURE,LIGA CLIP MED LT200 FDA Start: 03-31-2024 Reconstruction, breast, bilateral, using MICHELLE free flap 3.0MM INVASIVE CARDIOVASCULAR TECHNOLOGIST FDA Start: 03-31-2024 Reconstruction, breast, bilateral, using MICHELLE free flap SUTURE,LIGA CLIP SM LT-100 FDA Start: 03-31-2024 Reconstruction, breast, bilateral, using MICHELLE free flap SUTURE,LIGA CLIP SM LT-100 FDA Start: 03-31-2024 Reconstruction, breast, bilateral, using MICHELLE free flap SUTURE,LIGA CLIP SM LT-100 FDA Start: 03-31-2024 Reconstruction, breast, bilateral, using MICHELLE free flap SUTURE,LIGA CLIP SM LT-100 FDA Start: 03-31-2024 Reconstruction, breast, bilateral, using MICHELLE free flap SUTURE,LIGA CLIP SM LT-100 FDA Start: 03-31-2024 Reconstruction, breast, bilateral, using MICHELLE free flap SUTURE,LIGA CLIP SM LT-100 FDA Start: 03-31-2024 Reconstruction, breast, bilateral, using MICHELLE free flap SUTURE,LIGA CLIP SM LT-100 FDA Start: 03-31-2024 Reconstruction, breast, bilateral, using MICHELLE free flap SUTURE,LIGA CLIP SM LT-100 FDA Start: 03-31-2024 Reconstruction, breast, bilateral, using MICHELLE free flap SUTURE,LIGA CLIP SM LT-100 FDA Start: 03-31-2024 Reconstruction, breast, bilateral, using MICHELLE free flap SUTURE,LIGA CLIP SM LT-100 FDA Start: 03-31-2024 Reconstruction, breast, bilateral, using MICHELLE free flap MICRO CLIP TITANIUM FDA Start: 03-31-2024 Reconstruction, breast, bilateral, using MICHELLE free flap SUTURE,LIGA CLIP SM LT-100 FDA Start: 03-31-2024 Reconstruction, breast, bilateral, using MICHELLE free flap SUTURE,LIGA CLIP SM LT-100 FDA Start: 03-31-2024 Reconstruction, breast, bilateral, using MICHELLE free flap MICRO CLIP TITANIUM FDA Start: 03-31-2024 Reconstruction, breast, bilateral, using MICHELLE free flap MICRO CLIP TITANIUM FDA Start: 03-31-2024 Reconstruction, breast, bilateral, using MICHELLE free flap NERVE CONNECTOR 2MM X 10MM FDA Start: 03-31-2024 Reconstruction, breast, bilateral, using MICHELLE free flap NERVE GRAFT 1-2MM X 70MM FDA Start: 03-31-2024 Reconstruction, breast, bilateral, using MICHELLE free flap SUPERFINE MICROCLIPS TITANIUM FDA Start: 03-31-2024 Reconstruction, breast, bilateral, using MICHELLE free flap 3.0MM INVASIVE CARDIOVASCULAR TECHNOLOGIST FDA Start: 03-31-2024 Reconstruction, breast, bilateral, using MICHELLE free flap SUPERFINE MICROCLIPS TITANIUM FDA Start: 03-31-2024 Reconstruction, breast, bilateral, using MICHELLE free flap SUPERFINE MICROCLIPS TITANIUM FDA Start: 03-31-2024 Reconstruction, breast, bilateral, using MICHELLE free flap SUTURE,LIGA CLIP MED LT200 FDA Start: 03-31-2024 Reconstruction, breast, bilateral, using MICHELLE free flap SUTURE,LIGA CLIP MED LT200 FDA Start: 03-31-2024 Reconstruction, breast, bilateral, using MICHELLE free flap SUTURE,LIGA CLIP MED LT200 FDA Start: 03-31-2024 Reconstruction, breast, bilateral, using MICHELLE free flap SUTURE,LIGA CLIP MED LT200 FDA Start: 03-31-2024 Reconstruction, breast, bilateral, using MICHELLE free flap SUTURE,LIGA CLIP MED LT200 FDA Start: 03-31-2024 Reconstruction, breast, bilateral, using MICHELLE free flap SUTURE,LIGA CLIP MED LT200 FDA Start: 03-31-2024 Reconstruction, breast, bilateral, using MICHELLE free flap SUTURE,LIGA CLIP MED LT200 FDA Start: 03-31-2024 Reconstruction, breast, bilateral, using MICHELLE free flap SUTURE,LIGA CLIP MED LT200 FDA Start: 03-31-2024 Reconstruction, breast, bilateral, using MICHELLE free flap 3.0MM INVASIVE CARDIOVASCULAR TECHNOLOGIST FDA Start: 03-31-2024 Reconstruction, breast, bilateral, using MICHELLE free flap SUTURE,LIGA CLIP MED LT200 FDA Start: 03-31-2024 Reconstruction, breast, bilateral, using MICHELLE free flap SUTURE,LIGA CLIP MED LT200 FDA Start: 03-31-2024 Reconstruction, breast, bilateral, using MICHELLE free flap SUTURE,LIGA CLIP MED LT200 FDA Start: 03-31-2024 Reconstruction, breast, bilateral, using MICHELLE free flap SUTURE,LIGA CLIP MED LT200 FDA Start: 03-31-2024 Reconstruction, breast, bilateral, using MICHELLE free flap SUTURE,LIGA CLIP MED LT200 FDA Start: 03-31-2024 Reconstruction, breast, bilateral, using MICHELLE free flap SUTURE,LIGA CLIP MED LT200 FDA Start: 03-31-2024 Reconstruction, breast, bilateral, using MICHELLE free flap SUTURE,LIGA CLIP MED LT200 FDA Start: 03-31-2024 Reconstruction, breast, bilateral, using MICHELLE free flap SUTURE,LIGA CLIP MED LT200 FDA Start: 03-31-2024 Reconstruction, breast, bilateral, using MICHELLE free flap SUTURE,LIGA CLIP MED LT200 FDA Start: 03-31-2024 Reconstruction, breast, bilateral, using MICHELLE free flap SUTURE,LIGA CLIP MED LT200 FDA Start: 03-31-2024 Reconstruction, breast, bilateral, using MICHELLE free flap 3.0MM INVASIVE CARDIOVASCULAR TECHNOLOGIST FDA Start: 03-31-2024 Reconstruction, breast, bilateral, using MICHELLE free flap SUTURE,LIGA CLIP SM LT-100 FDA Start: 03-31-2024 Reconstruction, breast, bilateral, using MICHELLE free flap SUTURE,LIGA CLIP SM LT-100 FDA Start: 03-31-2024 Reconstruction, breast, bilateral, using MICHELLE free flap SUTURE,LIGA CLIP SM LT-100 FDA Start: 03-31-2024 Reconstruction, breast, bilateral, using MICHELLE free flap SUTURE,LIGA CLIP SM LT-100 FDA Start: 03-31-2024 Reconstruction, breast, bilateral, using MICHELLE free flap SUTURE,LIGA CLIP SM LT-100 FDA Start: 03-31-2024 Reconstruction, breast, bilateral, using MICHELLE free flap SUTURE,LIGA CLIP SM LT-100 FDA Start: 03-31-2024 Reconstruction, breast, bilateral, using MICHELLE free flap SUTURE,LIGA CLIP SM LT-100 FDA Start: 03-31-2024 Reconstruction, breast, bilateral, using MICHELLE free flap SUTURE,LIGA CLIP SM LT-100 FDA Start: 03-31-2024 Reconstruction, breast, bilateral, using MICHELLE free flap SUTURE,LIGA CLIP SM LT-100 FDA Start: 03-31-2024 Reconstruction, breast, bilateral, using MICHELLE free flap SUTURE,LIGA CLIP SM LT-100 FDA Start: 03-31-2024 Reconstruction, breast, bilateral, using MICHELLE free flap MICRO CLIP TITANIUM FDA Start: 03-31-2024 Reconstruction, breast, bilateral, using MICHELLE free flap SUTURE,LIGA CLIP SM LT-100 FDA Start: 03-31-2024 Reconstruction, breast, bilateral, using MICHELLE free flap SUTURE,LIGA CLIP SM LT-100 FDA Start: 03-31-2024 Reconstruction, breast, bilateral, using MICHELLE free flap MICRO CLIP TITANIUM FDA Start: 03-31-2024 Reconstruction, breast, bilateral, using MICHELLE free flap MICRO CLIP TITANIUM FDA Start: 03-31-2024 Reconstruction, breast, bilateral, using MICHELLE free flap NERVE CONNECTOR 2MM X 10MM FDA Start: 03-31-2024 Reconstruction, breast, bilateral, using MICHELLE free flap NERVE GRAFT 1-2MM X 70MM FDA Start: 03-31-2024 Reconstruction, breast, bilateral, using MICHELLE free flap SUPERFINE MICROCLIPS TITANIUM FDA Start: [...] implant, breast Plant polysaccharide haemostatic agent, bioabsorbable ()[id number] FDA Start: 04-11-2022 Insertion, implant, breast Plant polysaccharide haemostatic agent, bioabsorbable ()[id number] FDA Start: 04-11-2022 Insertion, implant, breast [...] implant removal Plant polysaccharide haemostatic agent, bioabsorbable ()[id number] FDA Start: 05-30-2022 Capsulectomy, breast, with implant removal PLIABLE SHAPED PERF LARGE 13 X 22CM FDA Start: 01-21-2023 Capsulectomy, breast, with implant removal Plant polysaccharide haemostatic agent, bioabsorbable ()[id number] FDA Start: 01-21-2023 Capsulectomy, breast, with implant removal PLLABLE SHAPED PERF-LRG- [id number] FDA Start: 01-21-2023 Capsulectomy, breast, with implant removal PLLABLE SHAPED PERF-LRG- [id number] FDA Start: 01-21-2023 Capsulectomy, breast, with implant removal PLLABLE SHAPED [id number] FDA Start: 01-21-2023 Capsulectomy, breast, with implant removal Silicone gel-filled breast implant, smooth-surface ()[id number] FDA Start: 01-21-2023 Capsulectomy, breast, with implant removal Silicone gel-filled breast implant, smooth-surface ()[id number] FDA Start: 01-21-2023 Capsulectomy, breast, with implant removal PLIABLE SHAPED PERF LARGE 13 X 22CM FDA Start: 01-21-2023 Capsulectomy, breast, with implant removal PLIABLE SHAPED [id number] FDA Start: 01-21-2023 Capsulectomy, breast, with implant removal PLLABLE SHAPED PERF-LRG- [id number] FDA Start: 01-21-2023 Capsulectomy, breast, with implant removal PLLABLE SHAPED PERF-LRG- [id number] FDA Start: 01-21-2023 Capsulectomy, breast, with implant removal PLIABLE SHAPED PERF LARGE 13 X 22CM FDA Start: 01-21-2023 Capsulectomy, breast, with implant removal PLIABLE SHAPED [id number] FDA Start: 01-21-2023 Capsulectomy, breast, with implant removal PLLABLE SHAPED PERF-LRG- [id number] FDA Start: 01-21-2023 Capsulectomy, breast, with implant removal PLLABLE SHAPED PERF-LRG- [id number] FDA Start: 01-21-2023 Capsulectomy, breast, with implant removal PLIABLE SHAPED PERF LARGE 13 X 22CM FDA Start: 01-21-2023 Capsulectomy, breast, with implant removal PLIABLE SHAPED [id number] FDA Start: 01-21-2023 Capsulectomy, breast, with implant removal PLLABLE SHAPED PERF-LRG- [id number] FDA Start: 01-21-2023 Capsulectomy, breast, with implant removal PLLABLE SHAPED PERF-LRG- [id number] FDA Start: 01-21-2023 Capsulectomy, breast, with implant removal PLIABLE SHAPED PERF LARGE 13 X 22CM FDA Start: 01-21-2023 Capsulectomy, breast, with implant removal PLIABLE SHAPED [id number] FDA Start: 01-21-2023 Capsulectomy, breast, with implant removal PLLABLE SHAPED PERF-LRG- [id number] FDA Start: 01-21-2023 Capsulectomy, breast, with implant removal PLLABLE SHAPED PERF-LRG- [id number] FDA Start: 01-21-2023 Capsulectomy, breast, with implant removal PLIABLE SHAPED PERF LARGE 13 X 22CM FDA Start: 01-21-2023 Capsulectomy, breast, with implant removal PLIABLE SHAPED [id number] FDA Start: 01-21-2023 Capsulectomy, breast, with implant removal PLLABLE SHAPED PERF-LRG- [id number] FDA Start: 01-21-2023 Capsulectomy, breast, with implant removal PLLABLE SHAPED PERF-LRG- [id number] FDA Start: 01-21-2023 Capsulectomy, breast, with implant removal PLIABLE SHAPED PERF LARGE 13 X 22CM FDA Start: 01-21-2023 Capsulectomy, breast, with implant removal PLIABLE SHAPED [id number] FDA Start: 01-21-2023 Capsulectomy, breast, with implant removal PLLABLE SHAPED PERF-LRG- [id number] FDA Start: 01-21-2023 Capsulectomy, breast, with implant removal PLLABLE SHAPED PERF-LRG- [id number] FDA Start: 01-21-2023 Capsulectomy, breast, with implant removal PLIABLE SHAPED PERF LARGE 13 X 22CM FDA Start: 01-21-2023 Capsulectomy, breast, with implant removal PLIABLE SHAPED [id number] FDA Start: 01-21-2023 Capsulectomy, breast, with implant removal PLLABLE SHAPED PERF-LRG- [id number] FDA Start: 01-21-2023 Capsulectomy, breast, with implant removal PLLABLE SHAPED PERF-LRG- [id number] FDA Start: 01-21-2023 Capsulectomy, breast, with implant removal PLIABLE SHAPED PERF LARGE 13 X 22CM FDA Start: 01-21-2023 Capsulectomy, breast, with implant removal PLIABLE SHAPED [id number] FDA Start: 01-21-2023 Capsulectomy, breast, with implant removal PLLABLE SHAPED PERF-LRG- [id number] FDA Start: 01-21-2023 Capsulectomy, breast, with implant removal PLLABLE SHAPED PERF-LRG- [id number] FDA Start: 01-21-2023 Goals Date Patient Goal Desired Activity /State Functional Status Date Assessment Result Facility 04-03-2024 Functional status Bedside Commode [facility] Work Phone: 04-03-2024 Functional status Activity Abili ty With Assist of 1 [facility] Work Phone: 01-23-2023 Functional status Up ad willy [facility] Work Phone: 10-05-2022 Functional status Ambulates [facility] Work Phone: 06-02-2022 Functional status Ambulates;Up ad willy [facility] Work Phone: 06-01-2022 Functional status Assistive Devices None [facility] Work Phone: 05-30-2022 Functional status Tolerates Activity Fair [facility] Work Phone: 04-14-2022 Functional status Bedrest [facility] Work Phone: Mental Status Date Assessment Result Facility 08-17-2024 Cognitive function Voice/Name [facility] Work Phone: 04-03-2024 Cognitive function Voice/Name [facility] Work Phone: 01-23-2023 Cognitive function Voice/Name [facility] Work Phone: 10-05-2022 Cognitive function Voice/Name [facility] Work Phone: 06-02-2022 Cognitive function Voice/Name [facility] Work Phone: 04-14-2022 Cognitive function Voice/Name [facility] Work Phone: Clinical Notes 01-04-2017 to 11-07-2024 Amanda Osborne MD - 11/07/2024 8:20 AM EDTPatient Instructions Note Date & Type Note Facility 11-07-2024 History of Presen t illness Narrative Subjective Irene Rojas is a 48 y.o. female who presents for discuss weight loss. Here to discuss her weight. She has been working on diet/exercise and is struggling with her weight. She is interested in taking phentermine. Advised that I do not prescribe that medication as it is a controlled substance and has a number of risks with it. Briefly discussed some other medications but she is not interested in those. Objective Visit Vitals BP 110/78 Pulse 72 Physical Exam Vitals reviewed. Constitutional: General: She is not in acute distress. Cardiovascular: Rate and Rhythm: Normal rate. Pulmonary: Effort: Pulmonary effort is normal. No respiratory distress. Skin: General: Skin is warm and dry. Neurological: General: No focal deficit present. Mental Status: She is alert. Mental status is at baseline. Assessment/Plan Problem List Items Addressed This Visit Obesity (BMI 30-39.9) - Primary Amanda Osborne MD documented in this encounter [facility] Work Phone: 11-07-2024 Instructions Amanda Osborne MD - 11/07/2024 8:20 AM EDT Pt stated that she would be changing doctors. documented in this encounter [facility] Work Phone: 11-03-2024 Progress note [facility] 11-03-2024 Progress note Note Date/Time November 03, 2024 9:01am [facility] [address] [place] [address] OFFICE VISIT Date of Service: 11/03/24 MR#: [id number] Acct: [id number] Name: IRENE LOPEZ Rep #: [id number] : 1975 Provider: Dr. Jamil Turcios MD Age/Sex: 48/F Location: [facility] Status: Signed Intake Vital Signs 10/13/24 15:39 11/03/24 08:27 Height 5 ft 5 in 5 ft 5 in Weight: 181 lb BMI 30.1 BP 115/71 125/78 H Blood Pressure Location Lt brachial Rt brachial Position Sitting Sitting Respiration 18 17 Pulse 86 89 Pulse Source Monitor Temp 98.1 F Temp Source Oral Pulse Oximetry (%) 93 93 Oxygen Delivery Method room air room air Intake Visit Reasons: diastases recti- COMBO W/ RS Chief Complaint: diastases recti combo with RS Is patient in pain?: No Allergies Penicillins (PCN) Allergy (Verified 11/03/24 08:28) Hives, RASH Medications ?Medication ?Instructions ?Recorded ?Confirmed ?Type ibuprofen 800 mg tablet 800 mg PO Q12H PRN PRN Migra ine 03/28/22 11/03/24 History Headache omeprazole 40 mg capsule,delayed 40 mg PO DAILY gerd 0 03/28/22 11/03/24 History release sumatriptan succinate 100 mg tablet 100 mg PO PRN PRN MIGRAINE 03/28/22 11/03/24 History valacyclovir 500 mg tablet 500 mg PO DAILY PRN cold so res 03/28/22 11/03/24 History ondansetron 4 mg disintegrating 4 mg PO Q8H PRN nausea and 04/03/24 11/03/24 Rx tablet vomiting #10 tabs ascorbate calcium (vitamin C) 500 500 mg PO QDAY 11/0311/03/24 History mg tablet calcium carbonate 500 mg PO QDAY 11/03/2410/15 History cholecalciferol (vitamin D3) 25 25 mcg PO QDAY 5 11/03/24 History mcg (1,000 unit) capsule magnesium 200 mg tablet 200 mg PO QDAY 11/03/2410/15 History multivitamin 1 tab PO QAM 11/03/24 History zinc gluconate 100 mg tablet 100 mg PO QDAY 11/03/24 0 11/03/24 History PFSH Medical History Deformity of reconstructed [...] Frequent headaches Allergies Surgical History History of breast implant removal Hx of breast reconstruction History of prophylactic [...] Aspirin Does Take Ibuprofen As Needed HPI HPI HPI: The patient is a 48-year-old female who has a history of breast cancer treated with bilateral mastectomy and reconstruction. Her postoperative course was complicated by infection. She had to have implants removed and then tissue expanders placed and then implants replaced. She was seen by Dr. Allen and plastic surgery here at [facility] last year for issues related to the right breast implant. She ultimately underwent bilateral Michelle flap reconstruction. She also had an abdominoplasty performed at that time however it seems that she has developed a rectus diastases since then. I was asked to evaluate the patient and assist with surgery as to be performed by . That surgery isscheduled for November 23. Today's appointment is to discuss surgery further and answer any questions that she may have. She denies any new issues or problems since I originally saw her in his office couple of weeks ago ROS General General: Yes weight change and fatigue; No appetite, colon cancer, breast cancer or weakness HEENT HEENT: No difficulty swallowing, eye injury, eye surgery, swollen glands or hoarseness Endo Endocrine: No thyroid disease, diabetes mellitus, thyroid cancer, Hair loss, heat intolerance or cold intolerance Skin Skin: No rash or changing moles Musc Musculoskeletal: No back problems, arthritis, rheumatoid arthritis, gout or joint pain Cardio Cardiovascular: No murmur, pacemaker, heart disease, atrial fibrillation, high blood pressure, heart attack, heart stent, palpitations, shortness of breath with exertion or chest pain Psych Psychiatric: Yes depression and anxiety; No hearing voices Resp Respiratory: No shortness of breath, No sleep apnea, No cough, No COPD, No asthma, No emphysema and No wheezing Gastro Gastrointestinal: No abdominal pain, No nausea or vomiting, No diarrhea, No constipation, No blood in stool, No acid reflux, No hemorrhoids, No ulcers, No gallbladder problem and No black,tarry stools Steve Hematologic: No blood thinners, No blood disorders, No bleeding, No anemia and No blood clots Neuro Neurologic: No system reviewed and no additional complaints, except as documented, No as per HPI, No abnormal gait, No abnormal hearing, No abnormal movements, No abnormal speech, No behavioral changes, No burning sensations, No confusion, No convulsions, No disequilibrium, No dizziness, No localized weakness, No frequent falls, No headache(s), No lack of coordination, No loss ofvision, No memory loss, No numbness, No other visual disturbances, No radicular pain, No restless legs, No sensory deficit, No syncope, No tingling, No tremor(s), No weakness and No other Exam Const General: cooperative, healthy appearing and comfortable GI Other: Abdomen is soft and nontender. She does have a diastases that is probably 2.5 cm in width and probably 10 cm in length Assessment and Plan Assessment and Plan (1) Diastasis of rectus abdominis: Status: Acute Comment: After Michelle flap reconstruction Plan: The patient is a 48-year-old female scheduled to undergo repeat abdominoplasty and mesh placement on November 23. The surgery is to be performed along with myself and plastic surgery. All questions and concerns were addressed. Coding Level of Care Code Off vis,new,level 3 Diagnoses Diastasis of rectus abdominis M62.08 11/03/24 0901 <Electronically signed by Mario tang MD> Date _ Mario Turcios MD [facility] Signature: Date (if applicable) CC: Dr. Amanda Osborne MD ~ [facility] Work Phone: 1(168) 853-738406-19-2025 Progress [facility] [address], [address] [place] [address] OFFICE VISIT Date of Service: 09/01/24 MR#: [id number] Acct: [id number] Name: IRENE LOPEZ Rep #: [id number] : 1975 Provider: Dr. Candelario Allen MD Age/Sex: 48/F Location: [facility] Status: Signed Intake Vital Signs 08/18/24 16:23 09/01/24 10:00 Height 5 ft 5 in BP 114/72 121/79 H Blood Pressure Location Rt brachial Rt brachial Position Sitting Sitting Respiration 18 18 Pulse 70 Pulse Source Monitor Pulse Oximetry (%) 94 Oxygen Delivery Method room air Intake Visit Reasons: 1 W FU Chief Complaint: post op breast reconstruction f/u Is patient in pain?: No Allergies Penicillins (PCN) Allergy (Verified 09/01/24 09:57) Hives, RASH Medications ?Medication ?Instructions ?Recorded ?Confirmed ?Type ibuprofen 800 mg tablet 800 mg PO Q12H PRN PRN Migra ine 03/28/22 09/01/24 History Headache omeprazole 40 mg capsule,delayed 40 mg PO DAILY gerd 0 03/28/22 09/01/24 History release sumatriptan succinate 100 mg tablet 100 mg PO PRN PRN MIGRAINE 03/28/22 09/01/24 History valacyclovir 500 mg tablet 500 mg PO DAILY PRN cold so res 03/28/22 09/01/24 History ondansetron 4 mg disintegrating 4 mg PO Q8H PRN nausea and 04/03/24 09/01/24 Rx tablet vomiting #10 tabs clindamycin HCl 150 mg capsule 150 mg PO TID 5 days #1 5 caps 08/17/24 09/01/24 Rx (Cleocin HCl) oxycodone 5 mg tablet 5 mg PO Q8H PRN pain 7 days #20 08/17/24 09/01/24 Rx tabs Subjective Details: Operative Information Date of Procedure: 08/10/24 Pre-Operative Diagnosis: S/p breast reconstruction with bilateral MICHELLE flaps Post-Operative Diagnosis: Same Surgery/Procedure Performed: 1) Bilateral breast reconstruction revision, including removal of skinpaddles (CPT: 19045 x 2 with 50 modifier) 2) Fat grafting to the left breast, 80 cc, fat grafting to the right breast, 80 cc (CPT: 17450 and 66681 x 3 units) 3) Excision of hypertrophic abdominal scar, 15 x 1 cm (60658) 4) Intermediate closure of abdominal scar excision site, 15 cm (CPT: 41801) 5) Kenalog injection, umbilicus hypertrophic scar 19 August 2024: Doing well overall. No fevers chills or drainage. Happy with results thus far. 25 August 2024: Doing well overall. Happy thus far. No fevers/chills or drainage. No hard spots. Current encounter, 01 September 2024: The patient is a 48-year-old female presenting with postoperative follow-up careafter plastic surgery. Fat grafting was performed to enhance breast symmetry, and the patient is satisfied with the results, noting no fat necrosis. She experiences itching at the surgical site, which is being managed withtopical treatments. The patient has been advised to continue massaging the abdominal area to promotesoftening, particularly around the belly button, which has shown improvement. She is eager to resume normal activities,including swimming, as the incision sites are healing well. She has silicone scar tape and will start using this. Discussed sunscreen/sun protection. Attestation: Documentation on this patient encounter was supported using ambient scribe technology/ voice AI technology. The patient consented to recording for the purpose of documenting the encounter. Provider reviewed content of the generatednote prior to signature. Objective Details: Female protection mgr present for my exam Breasts are soft, no signs of fat necrosis. Incisions are clean dry and intact with Prineo tape in place (removed today). Appropriate swelling of the abdomen and thighs after liposuction. Bruising has subsided. Incision c/d/i on abdomen. Lower extremities: No swelling/no calf swelling Coding Level of Care Code Global Post Op Diagnoses History of reconstruction of both breasts Z98.890 [facility] Medical History Deformity of reconstructed breast GERD [...] Frequent headaches Allergies Surgical History History of breast implant removal Hx of breast reconstruction History of prophylactic [...] reconstruction of both breasts: Status: Acute Plan: Assessment and Plan The patient is a 48-year-old female with a history of plastic surgery presentingfor postoperative follow-up care. The postoperative swelling is reducing, and the patient is satisfied with the healingprocess, with no signs of complications such as infection or fat necrosis. Scar management is ongoing, with plans for minor touch-ups to enhance cosmetic results. The patient reports itching at the surgical site, which is being managed with topical treatments, and she is advised to continue massaging the umbilical area to aid in softening. The patient is eagerto resume normal activities, includingswimming, as the incision sites are healing well. OK to swim.No heavy lifting for another 2 weeks. 1. Postoperative Care Following Plastic Surgery The patient will continue with postoperative care, including scar management andmonitoring for any signs of complications. She is advised to continue massaging the abdominal area to promote softeningand to use topical treatments for itching at the surgical site. The patient is cleared to resume swimming in chlorinated pools as the incision sites are healing well. Expected course postoperatively Follow-up in 1 month for check up Plan - Continue scar management and monitor for any signs of complications. - Massage the abdominal area daily to promote softening. - Use topical treatments for itching at the surgical site. - You may resume swimming in chlorinated pools as the incision sites are healingwell. 09/01/24 1026 MD> Date _ Marlon Allen MD Cosigner Signature: Date (if applicable) CC: ~ [facility]06-19-2025 Progress note Author Marlon Allen [facility] Note Date/Time September 01, 2024 10:2 6am [facility] [address], [address] [place], [place] [address] OFFICE VISIT Date of Service: 09/01/24 MR#: [id number] Acct: [id number] Name: IRENE LOPEZ Rep #: [id number] : 1975 Provider: Dr. Candelario Allen MD Age/Sex: 48/F Location: [facility] Status: Signed Intake Vital Signs 08/18/24 16:09/01/24 10:00 Height 5 ft 5 in BP 114/72 121/79 H Blood Pressure Location Rt brachial Rt brachial Position Sitting Sitting Respiration 18 18 Pulse 70 Pulse Source Monitor Pulse Oximetry (%) 94 Oxygen Delivery Method room air Intake Visit Reasons: 1 W FU Chief Complaint: post op breast reconstruction f/u Is patient in pain?: No Allergies Penicillins (PCN) Allergy (Verified 09/01/24 09:57) Hives, RASH Medications ?Medication ?Instructions ?Recorded ?Confirmed ?Type ibuprofen 800 mg tablet 800 mg PO Q12H PRN PRN Migra ine 03/28/22 09/01/24 History Headache omeprazole 40 mg capsule,delayed 40 mg PO DAILY gerd 0 03/28/22 09/01/24 History release sumatriptan succinate 100 mg tablet 100 mg PO PRN PRN MIGRAINE 03/28/22 09/01/24 History valacyclovir 500 mg tablet 500 mg PO DAILY PRN cold so res 03/28/22 09/01/24 History ondansetron 4 mg disintegrating 4 mg PO Q8H PRN nausea and 04/03/24 09/01/24 Rx tablet vomiting #10 tabs clindamycin HCl 150 mg capsule 150 mg PO TID 5 days #1 5 caps 08/17/24 09/01/24 Rx (Cleocin HCl) oxycodone 5 mg tablet 5 mg PO Q8H PRN pain 7 days #20 08/17/24 09/01/24 Rx tabs Subjective Details: Operative Information Date of Procedure: 08/10/24 Pre-Operative Diagnosis: S/p breast reconstruction with bilateral MICHELLE flaps Post-Operative Diagnosis: Same Surgery/Procedure Performed: 1) Bilateral breast reconstruction revision, including removal of skin paddles (CPT: 24288 x 2 with 50 modifier) 2) Fat grafting to the left breast, 80 cc, fat grafting to the right breast, 80 cc (CPT: 65041 and 61783 x 3 units) 3) Excision of hypertrophic abdominal scar, 15 x 1 cm (10900) 4) Intermediate closure of abdominal scar excision site, 15 cm (CPT: 85712) 5) Kenalog injection, umbilicus hypertrophic scar 19 August 2024: Doing well overall. No fevers chills or drainage. Happy with results thus far. 25 August 2024: Doing well overall. Happy thus far. No fevers/chills or drainage. No hard spots. Current encounter, 01 September 2024: The patient is a 48-year-old female presenting with postoperative follow-up careafter plastic surgery. Fat grafting was performed to enhance breast symmetry, and the patient is satisfied with the results, noting no fat necrosis. She experiences itching at the surgical site, which is being managed with topical treatments. The patient has been advised to continue massaging the abdominal area to promotesoftening, particularly around the belly button, which has shown improvement. She is eager to resume normal activities, including swimming, as the incision sites are healing well. She has silicone scar tape and will start using this. Discussed sunscreen/sun protection. Attestation: Documentation on this patient encounter was supported using ambient scribe technology/ voice AI technology. The patient consented to recording for the purpose of documenting the encounter. Provider reviewed content of the generatednote prior to signature. Objective Details: Female protection mgr present for my exam Breasts are soft, no signs of fat necrosis. Incisions are clean dry and intact with Prineo tape in place (removed today). Appropriate swelling of the abdomen and thighs after liposuction. Bruising has subsided. Incision c/d/i on abdomen. Lower extremities: No swelling/no calf swelling Coding Level of Care Code Global Post Op Diagnoses History of reconstruction of both breasts Z98.890 [facility] Medical History Deformity of reconstructed breast GERD [...] Frequent headaches Allergies Surgical History History of breast implant removal Hx of breast reconstruction History of prophylactic [...] reconstruction of both breasts: Status: Acute Plan: Assessment and Plan The patient is a 48-year-old female with a history of plastic surgery presentingfor postoperative follow-up care. The postoperative swelling is reducing, and the patient is satisfied with the healing process, with no signs of complications such as infection or fat necrosis. Scar management is ongoing, with plans for minor touch-ups to enhance cosmetic results. The patient reports itching at the surgical site, which is being managed with topical treatments, and she is advised to continue massaging the umbilical area to aid in softening. The patient is eager to resume normal activities, includingswimming, as the incision sites are healing well. OK to swim. No heavy lifting for another 2 weeks. 1. Postoperative Care Following Plastic Surgery The patient will continue with postoperative care, including scar management andmonitoring for any signs of complications. She is advised to continue massaging the abdominal area to promote softening and to use topical treatments for itching at the surgical site. The patient is cleared to resume swimming in chlorinated pools as the incision sites are healing well. Expected course postoperatively Follow-up in 1 month for check up Plan - Continue scar management and monitor for any signs of complications. - Massage the abdominal area daily to promote softening. - Use topical treatments for itching at the surgical site. - You may resume swimming in chlorinated pools as the incision sites are healingwell. 09/01/24 1026 <Electronically signed by Marlon Allen MD> Date _ Marlon Allen MD Cosigner Signature: Date (if applicable) CC: ~ [employer] Work Phone: 1(813) 750-202206-04-2025 Consult note [facility] Medical Records Department [address] [place] [address] Anesthesia Postop Eval II 08/17/24 1151 MR#: [id number] Acct: [id number] Name: IRENE LOPEZ Rep #:[id number] : 1975 48 From: Kayla Peres BINDERY CHIEF PCP: Dr. Amanda Osborne MD Statu s:REG SDC Y Race: C Location: [place] [address] Anesthesia Postop Eval I Sum Postop Eval Completion status Anesthesia document: Postop Eval 1 completed: Yes Anesthesia Postop Eval I Summary Anesthesia Postop Eval I Summary: Anesthesia Postop Eval I: Assessment Summary Airway patent Yes 08/17/24 11:22 BINDERY [email or web address] Spontaneous unlabored Yes 08/17/24 11:22 BINDERY CHIEF.GDOTT respirations Mental status Awake,Calm 08/17/24 11:22 BINDERY [email or web address].GDOTT nausea No 08/17/24 11:22 BINDERY CHIEF.GDOTT Vomiting No 08/17/24 11:22 BINDERY CHIEF.GDOTT Anesthesia Postop Eval I: Fluid Summary Crystalloid volume administer 1,700 08/17/24 11:22 BINDERY CHIEF.GDOTT (ml) Colloids volume administered ( ml) Blood Product volume administered (ml) Total IV fluid infused 1,700 08/17/24 11:22 BINDERY [email or web address].GDOTT Anesthesia Postop Eval I: Summary Notes Anesthesia Complication No 08/17/24 11:22 BINDERY CHIEF.GDOTT Anesthesia Complication Comment: Post-operative progress note Anesthesia: Postop Eval II Evaluation Mental status: Asleep Pain Level: 3 nausea: No Vomiting: No 08/17/24 1151 a BINDERY CHIEF> Date _ Kayla Peres BINDERY CHIEF Cosigner Signature: Date CC: ~ Signed [facility]06-04-2025 Consult note Author Kayla Peres [facility] Note Date/Time August 17, 2024 3:15p m [facility] Medical Records Department [address] [place] [address] Anesthesia Postop Eval II 08/17/24 1151 MR#: [id number] Acct: [id number] Name: IRENE LOPEZ Rep #:[id number] : 1975 48 From: Kayla Peres CRNA PCP: Dr. Amanda Osborne MD Statu s:REG SDC Y Race: C Location: [place] [address] Anesthesia Postop Eval I Sum Postop Eval Completion status Anesthesia document: Postop Eval 1 completed: Yes Anesthesia Postop Eval I Summary Anesthesia Postop Eval I Summary: Anesthesia Postop Eval I: Assessment Summary Airway patent Yes 08/17/24 11:22 BINDERY [email or web address].[email or web address] Spontaneous unlabored Yes 08/17/24 11:22 BINDERY CHIEF.GDOTT respirations Mental status Awake,Calm 08/17/24 11:22 BINDERY CHIEF.GDOTT nausea No 08/17/24 11:22 BINDERY CHIEF.GDOTT Vomiting No 08/17/24 11:22 BINDERY CHIEF.GDOTT Anesthesia Postop Eval I: Fluid Summary Crystalloid volume administer 1,700 08/17/24 11:22 BINDERY CHIEF.GDOTT (ml) Colloids volume administered ( ml) Blood Product volume administered (ml) Total IV fluid infused 1,700 08/17/24 11:22 BINDERY CHIEF.GDOTT Anesthesia Postop Eval I: Summary Notes Anesthesia Complication No 08/17/24 11:22 BINDERY CHIEF.GDOTT Anesthesia Complication Comment: Post-operative progress note Anesthesia: Postop Eval II Evaluation Mental status: Asleep Pain Level: 3 nausea: No Vomiting: No 08/17/24 1151 <Electronically signed by Kayla blair CRNA> Date _ Kayla Boyceca BINDERY CHIEF Cosigner Signature: Date CC: ~ Signed [facility] Work Phone: 1(386) 395-174906-04-2025 Consult note Author Maisha Corea [facility] Note Date/Time August 17, 2024 11:22 am [facility] Medical Records Department [address] [place] [address] Anesthesia Postop Eval I 08/17/24 1120 MR#: [id number] Acct: [id number] Name: IRENE LOPEZ Rep #:[id number] : 1975 48 From: Maisha Cerda RNA PCP: Dr. Amanda Osborne MD Statu s:[facility] Y Race: C Location: [place] [address] Anesthesia: Postop Eval I Current Vital Signs Temperature: 97.5 F Pulse Rate: 76 Blood Pressure: 103/51 Respiratory Rate: 16 Pulse Ox: 95 Oxygen Delivery Method: Nasal Cannula Oxygen Flow Rate (L/min): 3 Assessment Airway patent: Yes Spontaneous unlabored respirations: Yes Mental status: Awake and Calm nausea: No Vomiting: No Anesthesia Complication: No Fluid Hydration Crystalloid volume administer (ml): 1,700 Total IV fluid infused: 1,700 Progress Note Anesthesia document: Postop Eval 1 completed: Yes 08/17/24 112 <Electronically signed by Maisha Corea CRNA> Date _ Maisha Corea BINDERY CHIEF Cosigner Signature: Date CC: ~ Signed [facility] Work Phone: [phone]) 264-326406-04-2025 Consult note [facility] Medical Records Department [address] [place] [address] Anesthesia Postop Eval I 08/17/24 1120 MR#: [id number] Acct: [id number] Name: IRENE LOPEZ Rep #:[id number] : 1975 48 From: Maisha JIMÉNEZ PCP: Dr. Amanda Osborne MD Statu s:REG SDC Y Race: C Location: [place] [address] Anesthesia: Postop Eval I Current Vital Signs Temperature: 97.5 F Pulse Rate: 76 Blood Pressure: 103/51 Respiratory Rate: 16 Pulse Ox: 95 Oxygen Delivery Method: Nasal Cannula Oxygen Flow Rate (L/min): 3 Assessment Airway patent: Yes Spontaneous unlabored respirations: Yes Mental status: Awake and Calm nausea: No Vomiting: No Anesthesia Complication: No Fluid Hydration Crystalloid volume administer (ml): 1,700 Total IV fluid infused: 1,700 Progress Note Anesthesia document: Postop Eval 1 completed: Yes 08/17/24 1122 BINDERY CHIEF> Date _ Maisha Corea BINDERY CHIEF Cosigner Signature: Date CC: ~ Signed [facility]06-04-2025 History and physical note Author Marlon [facility] Note Date/Time August 17, 2024 7:20a m [facility] Medical Records Department [address] [place] [address] H&P Exam - Surgical 08/17/24 0635 MR#: [id number] Acct: [id number] Name: IRENE LOPEZ Rep #:[id number] : 1975 48 From: Marlon Allen MD PCP: Dr. Amanda Osborne MD Statu s:REG SDC Location: [place] [address] HPI - General HPI Narrative IRENE LOPEZ is a 48 F who presents for breast reconstruction revision (revision of MICHELLE flap from Mar 2024). Current Encounter (DATE OF SURGERY H&P UPDATE): I saw and examined the patient this morning in pre-operative holding. We discussed risks and benefits of today's surgery and they would like to proceed. NO CHANGE in health history since last seen and evaluated. Ready to proceed with surgery. Of note, patient declining IV in left upper extremity after blown IV in the dorsal left hand (and having persistent intermittent CT symptoms). Bracing has helped, but CT persisting. [facility] Medical History Deformity of reconstructed breast GERD [...] PRN PRN Migra ine 03/28/22 03/24/24 History Headache omeprazole 40 mg capsule,delayed 40 mg PO DAILY gerd 0 03/28/22 08/17/24 History release sumatriptan succinate 100 mg tablet 100 mg PO PRN PRN MIGRAINE 03/28/22 Unknown History valacyclovir 500 mg tablet 500 mg PO DAILY PRN cold so res 03/28/22 03/30/24 06:30 History ondansetron 4 mg disintegrating 4 mg PO Q8H PRN nausea and 04/03/24 Unknown Rx tablet vomiting #10 tabs Allergy/AdvReac Type Severity Reaction Status Date / Time Penicillins (PCN) Allergy Hives, RASH Verified 08/17/24 06:28 Family History Grandmother Breast cancer Aunt Breast cancer Father Diabetes Surgical History History of breast implant removal Hx of breast reconstruction History of prophylactic [...] Needed Vital Signs Vital Signs Vital Signs: 08/17/24 06:29 08/17/24 06:29 Temperature 98.2 F Temperature Source Temporal Pulse Rate 75 Respiratory Rate 17 Respiratory Pattern Normal Blood Pressure 124/65 H Blood Pressure Mean 84 Blood Pressure Source Monitor Blood Pressure Position Semi-Fowlers Blood Pressure Location Right Arm Pulse Ox 95 Oxygen Delivery Method Room Air Weight Weight: 178 lb 9.191 oz Body Mass Index (BMI) 29.7 Physical Exam Narrative Female protection mgr present for my exam Chest: Incisions and right upper pole breast wound have healed. Skin paddle is warm and well-perfused. Abdomen: Hypertrophic periumbilical scar and hypertrophic central abdominal scar, but all surgical sites have healed. Excess subcutaneous adiposity for fatgrafting. No palpable hernias/defects or bulges at this time on my exam today (palpated abdominal wall thoroughly with patient in the supine position). 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 Patient marked in preoperative holding today with female protection mgr present. We discussed risks of contour abnormalities from the liposuction fat/grafting, as well as risks of fat necrosis. Plan to remove skin paddle and readjust nipple to IMF, and revise scars on breasts. We will also plan for fat grafting, with abdominal donor site and revision of the abdominal scars. I talked to the patient thoroughly about the markings today and today's surgical plans, and she was in agreement. I talked to the patient extensively about the risks of surgery, including bleeding, infection, damage to surrounding structures, poor scaring, surgical site dehiscence and wound formation, need for wound care, need for repeat operations, failure to obtain the desired result, DVT/PE, and the risks of anesthesia including , including stroke (from low blood pressure/ischemia or clot). The benefits and alternatives of this surgery were also discussed. All of their questions were answered, and they agreed to proceed with surgery. 08/17/24 0720 <Electronically signed by Marlon Allen MD> Cosigner Signature (if applicable): CC: Dr. Amanda Osborne MD; Dr. Marlon Allen MD~ Signed [facility] Work Phone: [phone]) [phone] Consult note Author Kenny Davila [facility] Note Date/Time August 17, 2024 6:46a m [facility] Medical Records Department [address] [place] [address] Pre-Anesthesia Evaluation 08/17/24 0639 MR#: [id number] Acct: [id number] Name: IRENE LOPEZ Rep #:[id number] : 1975 48 From: Kenny Davila MD PCP: Dr. Amanda Osborne MD Statu s:REG SDC Y Race: C Location: [place] [address] ASA Classification* ASA Classification ASA Classification: 2 (GERD, migraines, hx of complications with previous breastsurgeries. Avoid ANY IVs in her hands -- she states she has significant numbnessand tingling in her left hand from previous surgery due to IV placement. ) Assessment & Plan Anesthesia* Anesthesia Assessment Anesthesia Assessment: Discussed sedation and/or anesthesia options, risks, benefits, and alternatives with patient/parents/legal guardian/POA. Questions invited. The patient/parents/legal guardian/POA seems to understand and agrees to proceedwith anesthesia plan. Reviewed the physical assessment, medical history, allergy history and patient home medications list prior to surgery/procedure/anesthetic and documented any changes. Performed airway and anesthesia risk assessments. Anesthesia Type Anesthesia Type: General History Source History Obtained from:: Patient and Chart Anesthesia Focused Assessment* Temperature: 98.2 F Pulse Rate: 75 Blood Pressure: 124/65 Respiratory Rate: 17 Pulse Ox: 95 Oxygen Delivery Method: Room Air Airway Assessment Mouth opens: >3 cm Mallampati Score: II Teeth Condition: Intact and Missing (missing several teeth on bottom, 1 on top) Neck Range of motion (ROM): Full ROM Focused Labs Anesthesia Preop lab: CBC WBC 13.0 K/mm3 (4.4-11.0) H 04/01/24 04:20 5 RBC 3.46 M/mm3 (4.2-5.4) L 04/01/24 04:20 04/01/24 Hgb 11.2 g/dL (12.0-15.0) L 04/01/24 04:20 5 Hct 33.8 % (37-47) L 04/01/24 04:20 04/01/24 Plt Count 188 K/mm3 (150-450) 04/01/24 04:20 04/01/24 CHEMISTRY Potassium 4.2 mmol/L (3.5-5.1) 04/01/24 04:20 04/01/24 Sodium 138 mmol/L (136-145) 04/01/24 04:20 04/01/24 Magnesium 2.2 mg/dL (1.6-2.6) 03/31/24 05:55 03/31/24 BUN 9 mg/dL (7-18) 04/01/24 04:20 04/01/24 Creatinine 0.74 mg/dL (0.55-1.02) 04/01/24 04:20 04/01/24 Glucose 130 mg/dL (74-106) H 04/01/24 04:20 04/01/24 POC Glucose 109 mg/dL (74-106) H 03/31/24 06:09 03/31/24 COAG Pre-Assessment Diagnosis/Proposed Procedure Planned Operative Procedure(s): (B) Revision breast reconstruction including fatgrafting, revision abdominal scar Anesthesia History 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 When Was Last Pacemaker Check QUESTION #4 FULL TEXT: You/Your Family Experience fever (hyperthermia) with Anesthesia Last Oral Intake Last Oral intake: Last Oral Intake NPO since 05:00 08/17/24 06:29 Meds taken in AM with sips of No 08/17/24 06:29 water? Meds patient instructed to take am of surgery PONV PONV - biophysics professor: PONV - biophysics professor Female Yes 08/03/24 15:06 HX of Motion Sickness Yes 08/03/24 15:06 HX of N/V After Surgery No 08/03/24 15:06 Non-Smoker Yes 08/03/24 15:06 Duration of Surgery greater Yes 08/03/24 15:06 than 60 minutes Number of Risk Factors 4 08/03/24 15:06 PONV Score Severe Risk 08/03/24 15:06 Height & Weight Height & Weight: Anesthesia: Height & Weight Height 5 ft 5 in 08/17/24 06:29 Weight: 81 kg 08/17/24 06:29 Body Mass Index (BMI) 29.7 08/17/24 06:29 Respiratory Assessment Respiratory Assessment - biophysics professor: Respiratory Tract Infection Hx - biophysics professor Hx Respiratory Tract Infection No 08/03/24 15:06 STOP Sleep Apnea STOP Sleep Apnea - biophysics professor: STOP Sleep Apnea - biophysics professor Hx Hypertension No 08/03/24 15:06 Hx Sleep Apnea No 08/03/24 15:06 CPAP BIPAP Do you snore loudly (louder No 08/03/24 15:06 than talking or can be heard Do you often feel tired/ No 08/03/24 15:06 fatigued/ sleepy during daytime? Has anyone observed you stop No 08/03/24 15:06 breathing during sleep? STOP Results Negative 08/03/24 15:06 QUESTION #5 FULL TEXT : Do you snore loudly (louder than talking or can be heard through closed doors)? 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 Specify any problems Hx of Preganancy in last 3 No 08/03/24 15:06 Months Nurse Filling Out Transfusion VCHRISTIN 08/03/24 15:06 & Questions: Date: 08/03/24 08/03/24 15:06 Time: 15:08/03/24 15:06 Patient unable to answer at this time (ie. confused, unrespo /Reproduction History /Reproductive History - biophysics professor: /Reproductive Hx- biophysics professor Hx Now No 08/03/24 15:06 Gestational Age (in weeks): EDC: Hx Hx Para Hx Section SAB No 08/03/24 15:06 Active Medications Active Medications: Current Medications Generic Name Dose Route Start Last Admin Trade Name Freq PRN Reason Stop Dose Admin Clindamycin Phosphate 900 mg in 50 mls @ 75 mls/hr 08/17/24 07:30 Cleocin IV 08/17/24 08:09 INTRAOP ONE Lactated Ringer's 1,000 mls @ 15 mls/hr 08/17/24 06:15 08/17/24 06:29 IV 15 mls/hr .Q48H DINORAH Administration PFSH Medical History Deformity of reconstructed breast [...] PRN PRN Migra ine 03/28/22 03/24/24 History Headache omeprazole 40 mg capsule,delayed 40 mg PO DAILY gerd 0 03/28/22 08/17/24 History release sumatriptan succinate 100 mg tablet 100 mg PO PRN PRN MIGRAINE 03/28/22 Unknown History valacyclovir 500 mg tablet 500 mg PO DAILY PRN cold so res 03/28/22 03/30/24 06:30 History ondansetron 4 mg disintegrating 4 mg PO Q8H PRN nausea and 04/03/24 Unknown Rx tablet vomiting #10 tabs Allergy/AdvReac Type Severity Reaction Status Date / Time Penicillins (PCN) Allergy Hives, RASH Verified 08/17/24 06:28 Family History Grandmother Breast cancer Aunt Breast cancer Father Diabetes Surgical History History of breast implant removal Hx of breast reconstruction History of prophylactic [...] Take Aspirin Does Take Ibuprofen As Needed Review of Systems (Anesthesia) ROS Narrative System reviewed and no additional complaints, except as documented. Physical Exam Const alert, oriented x3 and average body habitus Resp normal respiratory effort, normal air movement and clear to auscultation bilaterally Cardio regular rate, regular rhythm, no murmurs and diaphoretic 08/17/24 0646 <Electronically signed by Kenyn Davila MD> Date _ Kenny Davila MD Cosigner Signature: Date CC: ~ Signed [facility] Work Phone: 1(120) [phone] History and physical note [facility] Medical Records Department [address] [facility] [place] [address] H&P Exam - Surgical 08/17/24 0635 MR#: [id number] Acct: [id number] Name: IRENE LOPEZ Rep #:[id number] : 1975 48 From: Marlon Allen MD PCP: Dr. Amanda Osborne MD Statu s:[facility] [place] [address] HPI - General HPI Narrative IRENE LOPEZ is a 48 F who presents for breast reconstruction revision (revision of MICHELLE flapfrom Mar 2024). Current Encounter (DATE OF SURGERY H&P UPDATE): I saw and examined the patient this morning in pre-operative holding. We discussed risks and benefits of today's surgery and they would like to proceed. NO CHANGE in health history since last seen and evaluated. Ready to proceed with surgery. Of note, patient declining IV in left upper extremity after blown IV in the dorsal left hand (and having persistent intermittent CT symptoms). Bracing has helped, but CT persisting. [facility] Medical History Deformity of reconstructed breast GERD [...] PRN PRN Migra ine 03/28/22 03/24/24 History Headache omeprazole 40 mg capsule,delayed 40 mg PO DAILY gerd 0 03/28/22 08/17/24 History release sumatriptan succinate 100 mg tablet 100 mg PO PRN PRN MIGRAINE 03/28/22 Unknown History valacyclovir 500 mg tablet 500 mg PO DAILY PRN cold so res 03/28/22 03/30/24 06:30 History ondansetron 4 mg disintegrating 4 mg PO Q8H PRN nausea and 04/03/24 Unknown Rx tablet vomiting #10 tabs Allergy/AdvReac Type Severity Reaction Status Date / Time Penicillins (PCN) Allergy Hives, RASH Verified 08/17/24 06:28 Family History Grandmother Breast cancer Aunt Breast cancer Father Diabetes Surgical History History of breast implant removal Hx of breast reconstruction History of prophylactic [...] Needed Vital Signs Vital Signs Vital Signs: 08/17/24 06:29 08/17/24 06:29 Temperature 98.2 F Temperature Source Temporal Pulse Rate 75 Respiratory Rate 17 Respiratory Pattern Normal Blood Pressure 124/65 H Blood Pressure Mean 84 Blood Pressure Source Monitor Blood Pressure Position Semi-Fowlers Blood Pressure Location Right Arm Pulse Ox 95 Oxygen Delivery Method Room Air Weight Weight: 178 lb 9.191 oz Body Mass Index (BMI) 29.7 Physical Exam Narrative Female protection mgr present for my exam Chest: Incisions and right upper pole breast wound have healed. Skin paddle is warm and well-perfused. Abdomen: Hypertrophic periumbilical scar and hypertrophic central abdominal scar, but all surgical sites have healed. Excess subcutaneous adiposity for fatgrafting. No palpable hernias/defects or bulges at this time on my exam today (palpated abdominal wall thoroughly with patient in the supine position). 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 Patient marked in preoperative holding today with female protection mgr present. We discussed risks of contour abnormalities from the liposuction fat/grafting, as well as risks of fat necrosis. Plan to remove skin paddle and readjust nipple to IMF, and revise scars on breasts. We will also plan for fat grafting, with abdominal donor site and revision of the abdominal scars. I talked to the patient thoroughly about the markings today and today's surgical plans, and she was in agreement. I talked to the patient extensively about the risks of surgery, including bleeding, infection, damage to surrounding structures, poor scaring, surgical site dehiscence and wound formation, need for wound care, need for repeat operations, failure to obtain the desired result, DVT/PE, and the risks of anesthesia including , including stroke (from low blood pressure/ischemia or clot). The benefits and alternatives of this surgery were also discussed. All of their questions were answered, and they agreed to proceed with surgery. 08/17/24 0720 Cosigner Signature (if applicable): CC: Dr. Amanda Osborne MD; Dr. Marlon Allen MD~ Signed [facility]06-04-2025 Consult note [facility] Medical Records Department [address] [place] [address] Pre-Anesthesia Evaluation 08/17/24 0639 MR#: [id number] Acct: [id number] Name: IRENE LOPEZ Rep #:[id number] : 1975 48 From: Kenny Davila MD PCP: Dr. Amanda Osborne MD Statu s:REG SDC Y Race: C Location: [facility] ASA Classification* ASA Classification ASA Classification: 2 (GERD, migraines, hx of complications with previous breastsurgeries. Avoid ANY IVs in her hands -- she states she has significant numbnessand tingling in her left hand from previous surgery due to IV placement. ) Assessment & Plan Anesthesia* Anesthesia Assessment Anesthesia Assessment: Discussed sedation and/or anesthesia options, risks, benefits, and alternatives with patient/parents/legal guardian/POA. Questions invited. The patient/parents/legal guardian/POA seems to understand and agrees to proceedwith anesthesia plan. Reviewed the physical assessment, medical history, allergy history and patient home medications list prior to surgery/procedure/anesthetic and documented any changes. Performed airway and anesthesia risk assessments. Anesthesia Type Anesthesia Type: General History Source History Obtained from:: Patient and Chart Anesthesia Focused Assessment* Temperature: 98.2 F Pulse Rate: 75 Blood Pressure: 124/65 Respiratory Rate: 17 Pulse Ox: 95 Oxygen Delivery Method: Room Air Airway Assessment Mouth opens: >3 cm Mallampati Score: II Teeth Condition: Intact and Missing (missing several teeth on bottom, 1 on top) Neck Range of motion (ROM): Full ROM Focused Labs Anesthesia Preop lab: CBC WBC 13.0 K/mm3 (4.4-11.0) H 04/01/24 04:20 5 RBC 3.46 M/mm3 (4.2-5.4) L 04/01/24 04:20 04/01/24 Hgb 11.2 g/dL (12.0-15.0) L 04/01/24 04:20 5 Hct 33.8 % (37-47) L 04/01/24 04:20 04/01/24 Plt Count 188 K/mm3 (150-450) 04/01/24 04:20 04/01/24 CHEMISTRY Potassium 4.2 mmol/L (3.5-5.1) 04/01/24 04:20 04/01/24 Sodium 138 mmol/L (136-145) 04/01/24 04:20 04/01/24 Magnesium 2.2 mg/dL (1.6-2.6) 03/31/24 05:55 03/31/24 BUN 9 mg/dL (7-18) 04/01/24 04:20 04/01/24 Creatinine 0.74 mg/dL (0.55-1.02) 04/01/24 04:20 04/01/24 Glucose 130 mg/dL (74-106) H 04/01/24 04:20 04/01/24 POC Glucose 109 mg/dL (74-106) H 03/31/24 06:09 03/31/24 COAG Pre-Assessment Diagnosis/Proposed Procedure Planned Operative Procedure(s): (B) Revision breast reconstruction including fatgrafting, revision abdominal scar Anesthesia History 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 When Was Last Pacemaker Check QUESTION #4 FULL TEXT: You/Your Family Experience fever (hyperthermia) with Anesthesia Last Oral Intake Last Oral intake: Last Oral Intake NPO since 05:00 08/17/24 06:29 Meds taken in AM with sips of No 08/17/24 06:29 water? Meds patient instructed to take am of surgery PONV PONV - biophysics professor: PONV - biophysics professor Female Yes 08/03/24 15:06 HX of Motion Sickness Yes 08/03/24 15:06 HX of N/V After Surgery No 08/03/24 15:06 Non-Smoker Yes 08/03/24 15:06 Duration of Surgery greater Yes 08/03/24 15:06 than 60 minutes Number of Risk Factors 4 08/03/24 15:06 PONV Score Severe Risk 08/03/24 15:06 Height & Weight Height & Weight: Anesthesia: Height & Weight Height 5 ft 5 in 08/17/24 06:29 Weight: 81 kg 08/17/24 06:29 Body Mass Index (BMI) 29.7 08/17/24 06:29 Respiratory Assessment Respiratory Assessment - biophysics professor: Respiratory Tract Infection Hx - biophysics professor Hx Respiratory Tract Infection No 08/03/24 15:06 STOP Sleep Apnea STOP Sleep Apnea - biophysics professor: STOP Sleep Apnea - biophysics professor Hx Hypertension No 08/03/24 15:06 Hx Sleep Apnea No 08/03/24 15:06 CPAP BIPAP Do you snore loudly (louder No 08/03/24 15:06 than talking or can be heard Do you often feel tired/ No 08/03/24 15:06 fatigued/ sleepy during daytime? Has anyone observed you stop No 08/03/24 15:06 breathing during sleep? STOP Results Negative 08/03/24 15:06 QUESTION #5 FULL TEXT : Do you snore loudly (louder than talking or can be heard through closeddoors)? 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 Specify any problems Hx of Preganancy in last 3 No 08/03/24 15:06 Months Nurse Filling Out Transfusion VCHRISTIN 08/03/24 15:06 & Questions: Date: 08/03/24 08/03/24 15:06 Time: 15:13 08/03/24 15:06 Patient unable to answer at this time (ie. confused, unrespo /Reproduction History /Reproductive History - biophysics professor: /Reproductive Hx- biophysics professor Hx Now No 08/03/24 15:06 Gestational Age (in weeks): EDC: Hx Hx Para Hx Section SAB No 08/03/24 15:06 Active Medications Active Medications: Current Medications Generic Name Dose Route Start Last Admin Trade Name Freq PRN Reason Stop Dose Admin Clindamycin Phosphate 900 mg in 50 mls @ 75 mls/hr 08/17/24 07:30 Cleocin IV 08/17/24 08:09 INTRAOP ONE Lactated Ringer's 1,000 mls @ 15 mls/hr 08/17/24 06:15 08/17/24 06:29 IV 15 mls/hr .Q48H DINORAH Administration PFSH Medical History Deformity of reconstructed breast [...] PRN PRN Migra ine 03/28/22 03/24/24 History Headache omeprazole 40 mg capsule,delayed 40 mg PO DAILY gerd 0 03/28/22 08/17/24 History release sumatriptan succinate 100 mg tablet 100 mg PO PRN PRN MIGRAINE 03/28/22 Unknown History valacyclovir 500 mg tablet 500 mg PO DAILY PRN cold so res 03/28/22 03/30/24 06:30 History ondansetron 4 mg disintegrating 4 mg PO Q8H PRN nausea and 04/03/24 Unknown Rx tablet vomiting #10 tabs Allergy/AdvReac Type Severity Reaction Status Date / Time Penicillins (PCN) Allergy Hives, RASH Verified 08/17/24 06:28 Family History Grandmother Breast cancer Aunt Breast cancer Father Diabetes Surgical History History of breast implant removal Hx of breast reconstruction History of prophylactic [...] Take Aspirin Does Take Ibuprofen As Needed Review of Systems (Anesthesia) ROS Narrative System reviewed and no additional complaints, except as documented. Physical Exam Const alert, oriented x3 and average body habitus Resp normal respiratory effort, normal air movement and clear to auscultation bilaterally Cardio regular rate, regular rhythm, no murmurs and diaphoretic 08/17/24 0646 > Date _ Kenny Davila MD Cosigner Signature: Date CC: ~ Signed [facility]04-24-2025 Evaluation note* Diagnosis Onset Date Resolution Status Admit Date Status post bilateral breast reconstruction acute July 07, 2024 2:59pm Status post bilateral breast reconstruction acute July 28, 2024 2 :59pm History of reconstruction of both breasts acute August 17, 2024 6 :00am History of reconstruction of both breasts acute August 19, 2024 8 :18am History of reconstruction of both breasts acute August 25, 2024 9:54am History of reconstruction of both breasts acute September 01, 2024 9:51am Diastasis of rectus abdominis acute October 13, 2024 3:26pm History of reconstruction of both breasts acute October 13, 2024 3:26pm Diastasis of rectus abdominis acute November 03, 2024 8:18am [employer] Work Phone: 1(722) 662-255804-07-2025 Evaluation note* Diagnosis Onset Date Resolution Status Admit Date 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 acute June 20 8:11am Status post bilateral breast reconstruction acute July 07, 2024 2:59pm Status post bilateral breast reconstruction acute July 28, 2024 2 :59pm History of reconstruction of both breasts acute August 17, 2024 6 :00am History of reconstruction of both breasts acute August 19, 2024 8 :18am History of reconstruction of both breasts acute August 25, 2024 9:54am History of reconstruction of both breasts acute September 01, 2024 9:51am [facility] Work Phone: 1(410) 819-297303-24-2025 Progress note Author Marlon Allen [facility] Note Date/Time June 06, 2024 9:2 6am [facility] [address] [place] [address] Progress Note - Wound Care 06/06/24 0646 MR#: [id number] Acct: [id number] Name: IRENE LOPEZ Rep #:[id number] : 1975 48 From: Marlon Allen MD PCP: Dr. 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 History of Wound: Patient underwent MICHELLE flaps for bilateral breast reconstruction on 31 [...] Index (BMI) 28.6 Charges/Coding Procedures Integumentary 111xxx-113xx: 07053 Global Visit Physical Exam Narrative Right breast wound healing well, granulating. No drainage. 0.5 x 1.1 cm and 1 cm deep. Re-packed today. Beafy red granulation at the base over the MICHELLE flap Central abdomen Re-epithelialized. Healthy umbilicus. Debridement Note Debridement Note Post-Debridement Measurements and Additional Note: Post-Debridement Measurements/Treatment - Nurse 1 - General Ulcer Assessment Start: 05/16/24 10:22 Freq: Status: Active Protocol: ANGY.LOWEXT Activity Type Activity Date Activity User E-sign Co-sign Detail Recorded Client Recorded Date Recorded By Document 05/16/24 10:[address] [facility] [id number] 05/16/24 10:[address] 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 [id number] 05/16/24 10:[address] [facility] Document 05/23/24 08:52 [id number] 05/23/24 08:57 KW 05/16/24 05/23/24 10:22 08:52 [...] Attached -Granulation Amt Large (67-100%) -Granulation Quality [place] -Necrosis Amt Small (1-33%) -Necrotic Tissue Type [...] Date Recorded By Document 05/16/24 11:02 DS [id number] 05/16/24 11:12 DS Document 05/23/24 09:02 DS [id number] 05/23/24 09:07 DS 05/16/24 05/23/24 11:02 09:02 [...] Patient Pain Free? Yes Yes WC - Nurse 3 - General Ulcer D/C NN Start: 05/16/24 10:22 Freq: Status: Active Protocol: Activity Type Activity Date Activity User E-sign Co-sign Detail Recorded Client Recorded Date Recorded By Document 05/16/24 11:[address] [facility] [id number] 05/16/24 11:22 BM Document 05/23/24 09:[address] [facility] [id number] 05/23/24 09:[address] [facility] 05/16/24 05/23/24 11:20 09:23 Wound Care [...] weeks Patient happy with the plan 06/06/24 0926 <Electronically signed by Marlon Allen MD> Cosigner Signature (if applicable): CC: ~ Signed [facility] Work Phone: 1(437) 197-382703-24-2025 Progress note [facility] [address] [place] [address] Progress Note - Wound Care 06/06/24 0646 MR#: [id number] Acct: [id number] Name: IRENE LOPEZ Rep #:[id number] : 1975 48 From: Marlon Allen MD PCP: Dr. 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 History of Wound: Patient underwent MICHELLE flaps for bilateral breast reconstruction on 31 [...] Index (BMI) 28.6 Charges/Coding Procedures Integumentary 111xxx-113xx: 91847 Global Visit Physical Exam Narrative Right breast wound healing well, granulating. No drainage. 0.5 x 1.1 cm and 1 cm deep. Re-packed today. Beafy red granulation at the base over the MICHELLE flap Central abdomen Re-epithelialized. Healthy umbilicus. Debridement Note Debridement Note Post-Debridement Measurements and Additional Note: Post-Debridement Measurements/Treatment - Nurse 1 - General Ulcer Assessment Start: 05/16/24 10:22 Freq: Status: Active Protocol: ANGY.LOWRADHA Activity Type Activity Date Activity User E-sign Co-sign Detail Recorded Client Recorded Date Recorded By Document 05/16/24 10:[address] [facility] [id number] 05/16/24 10:[address] 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 [id number] 05/16/24 10:[address] [facility] Document 05/23/24 08:52 KW [id number] 05/23/24 08:57 KW 05/16/24 05/23/24 10:22 08:52 [...] Attached -Granulation Amt Large (67-100%) -Granulation Quality [place] -Necrosis Amt Small (1-33%) -Necrotic Tissue Type [...] Date Recorded By Document 05/16/24 11:02 DS [id number] 05/16/24 11:12 DS Document 05/23/24 09:02 DS [id number] 05/23/24 09:07 DS 05/16/24 05/23/24 11:02 09:02 Wound Center Nurse 2 #5 Abd Cluster -Time 11:00 09:02 -Correct Patient Yes Yes -Correct Side, [...] Recorded Date Recorded By Document 05/16/24 11:[address] [facility] [id number] 05/16/24 11:22 BM Document 05/23/24 09:23 BMF [id number] 05/23/24 09:24 BMF 05/16/24 05/23/24 11:20 09:23 Wound Care Center [...] weeks Patient happy with the plan 06/06/24 0926 Cosigner Signature (if applicable): CC: ~ Signed [facility]03-10-2025 Progress note Author Marlon Allen [facility] Note Date/Time May 23, 2024 9:4 8am [facility] [address] [place] [address] Progress Note - Wound Care 05/23/24 0846 MR#: [id number] Acct: [id number] Name: IRENE LOPEZ Rep #:[id number] : 1975 48 From: Marlon Allen MD PCP: Dr. Amanda Osborne MD Statu s:REG RCR Location: WC ADDENDUM by Dr. Marlon Allen MD on [...] nipple graft. History of Wound: Patient underwent MICHELLE flaps for bilateral breast reconstruction on 31 [...] Index (BMI) 28.6 Charges/Coding Procedures Integumentary 111xxx-113xx: 65780 Global Visit Physical Exam Narrative Right breast [...] Recorded Date Recorded By Document 05/16/24 10:[address] [facility] [id number] 05/16/24 10:[address] [facility] 05/16/24 10:22 - Today's Visit Information [...] in Ability to Perform Denies Any Declines Culture/Episcopal/Real Estate Professor Cultural/Episcopal Needs that may affect No Treatment Plan Teaching: Wound Center *Welcome to the Wound Center -Person Taught Patient -Teaching Method Discussion -Response to teaching Verbalize Understanding ANGY - Nurse 1 - General Ulcer Measurement Start: 05/16/24 10:22 Freq: Status: Active Protocol: Activity Type Activity Date Activity User E-sign Co-sign Detail Recorded Client Recorded Date Recorded By Document 05/16/24 10:[address] [facility] [id number] 05/16/24 10:[address] [facility] 05/16/24 10:22 Wound Center Nurse 1 [...] Attached -Granulation Amt Large (67-100%) -Granulation Quality [place] -Necrosis Amt Small (1-33%) -Necrotic Tissue Type [...] Date Recorded By Document 05/16/24 11:02 DS [id number] 05/16/24 11:12 DS 05/16/24 11:02 Wound Center [...] Recorded Date Recorded By Document 05/16/24 11:[address] [facility] [id number] 05/16/24 11:[address] [facility] 05/16/24 11:20 Wound Care Center Nurse [...] Cosigner Signature (if applicable): CC: ~ Signed [facility] Work Phone: 1(209) 636-354603-10-2025 Progress note [facility] [address] [address] Progress Note - Wound Care 05/23/24 0846 MR#: [id number] Acct: [id number] Name: IRENE LOPEZ Rep #:[id number] : 1975 48 From: Marlon Allen MD [...] nipple graft. History of Wound: Patient underwent MICHELLE flaps for bilateral breast reconstruction on 31 [...] Index (BMI) 28.6 Charges/Coding Procedures Integumentary 111xxx-113xx: 11885 Global Visit Physical Exam Narrative Right breast [...] Recorded Date Recorded By Document 05/16/24 10:[address] [facility] [id number] 05/16/24 10:[address] [facility] 05/16/24 10:22 - Today's Visit Information [...] in Ability to Perform Denies Any Declines Culture/Episcopal/Real Estate Professor Cultural/Episcopal Needs that may affect No Treatment Plan Teaching: Wound Center *Welcome to the Wound Center -Person Taught Patient -Teaching Method Discussion -Response to teaching Verbalize Understanding WC - Nurse 1 - General Ulcer Measurement Start: 05/16/24 10:22 Freq: Status: Active Protocol: Activity Type Activity Date Activity User E-sign Co-sign Detail Recorded Client Recorded Date Recorded By Document 05/16/24 10:[address] [facility] [id number] 05/16/24 10:[address] [facility] 05/16/24 10:22 Wound Center Nurse 1 [...] Attached -Granulation Amt Large (67-100%) -Granulation Quality [place] -Necrosis Amt Small (1-33%) -Necrotic Tissue Type [...] Recorded Date Recorded By Document 05/16/24 11:02 WILMER [id number] 05/16/24 11:12 DS 05/16/24 11:02 Wound Center [...] Recorded Date Recorded By Document 05/16/24 11:[address] [facility] [id number] 05/16/24 11:[address] [facility] 05/16/24 11:20 Wound Care Center Nurse [...] Cosigner Signature (if applicable): CC: ~ Signed [facility]03-03-2025 History and physical note Author Marlon Allen [facility] Note Date/Time May 16, 2024 3:40 pm [facility] [address] [place] [address] H&P Exam - Wound Care 05/16/24 1320 MR#: [id number] Acct: [id number] Name: IRENE LOPEZ Rep #:[id number] : 1975 48 From: Marlon Allen MD PCP: Dr. Amanda Osborne MD Statu s:REG RCR Location: History of Present Illness Date of Service: 05/16/24 History of Wound: Patient underwent MICHELLE flaps for bilateral breast reconstruction on 31 [...] Doing well with wound care. [facility] Medical History Deformity of reconstructed breast GERD [...] Recorded Date Recorded By Document 05/16/24 10:[address] [facility] [id number] 05/16/24 10:[address] [facility] 05/16/24 10:22 - Today's Visit Information [...] in Ability to Perform Denies Any Declines Culture/Episcopal/Real Estate Professor Cultural/Episcopal Needs that may affect No Treatment Plan Teaching: Wound Center *Welcome to the Wound Center -Person Taught Patient -Teaching Method Discussion -Response to teaching Verbalize Understanding WC - Nurse 1 - General Ulcer Measurement Start: 05/16/24 10:22 Freq: Status: Active Protocol: Activity Type Activity Date Activity User E-sign Co-sign Detail Recorded Client Recorded Date Recorded By Document 05/16/24 10:[address] [facility] [id number] 05/16/24 10:[address] [facility] 05/16/24 10:22 Wound Center Nurse 1 [...] Attached -Granulation Amt Large (67-100%) -Granulation Quality [place] -Necrosis Amt Small (1-33%) -Necrotic Tissue Type [...] Date Recorded By Document 05/16/24 11:02 DS [id number] 05/16/24 11:12 DS 05/16/24 11:02 Wound Center [...] Recorded Date Recorded By Document 05/16/24 11:[address] [facility] [id number] 05/16/24 11:[address] [facility] 05/16/24 11:20 Wound Care Center Nurse [...] Transportation Private Auto Charges/Coding Procedures Integumentary 111xxx-113xx: 65850 Global Visit Assessment/Plan Assessment/Plan (1) History of reconstruction of both breasts: CODE(S): Z98.890 - Other specified postprocedural states PLAN: Central abdomen with with some break down centrally. Debrided and cleaned today. Umbilicus and right breast healing well. Continue Aquacel Ag dressings twice daily. F/u in 1 week 05/16/24 1640 <Electronically signed by Marlon Allen MD> Cosigner Signature (if applicable): CC: ~ Signed [facility] Work Phone: 1(871) 189-436303-03-2025 History and physical note [facility] [address] [place] [address] H&P Exam - Wound Care 05/16/24 1320 MR#: [id number] Acct: [id number] Name: IRENE LOPEZ Rep #:[id number] : 1975 48 From: Marlon Allen MD PCP: Dr. Amanda Osborne MD Statu s:REG RCR Location: History of Present Illness Date of Service: 05/16/24 History of Wound: Patient underwent MICHELLE flaps for bilateral breast reconstruction on 31 [...] Doing well with wound care. [facility] Medical History Deformity of reconstructed breast GERD [...] Start: 05/16/24 10:22 Freq: Status: Active Protocol: .BESSY Activity Type Activity Date Activity User E-sign Co-sign Detail Recorded Client Recorded Date Recorded By Document 05/16/24 10:[address] [facility] [id number] 05/16/24 10:[address] [facility] 05/16/24 10:22 - Today's Visit Information [...] in Ability to Perform Denies Any Declines Culture/Episcopal/Real Estate Professor Cultural/Episcopal Needs that may affect No Treatment Plan Teaching: Wound Center *Welcome to the Wound Center -Person Taught Patient -Teaching Method Discussion -Response to teaching Verbalize Understanding WC - Nurse 1 - General Ulcer Measurement Start: 05/16/24 10:22 Freq: Status: Active Protocol: Activity Type Activity Date Activity User E-sign Co-sign Detail Recorded Client Recorded Date Recorded By Document 05/16/24 10:[address] [facility] [id number] 05/16/24 10:[address] [facility] 05/16/24 10:22 Wound Center Nurse 1 [...] Attached -Granulation Amt Large (67-100%) -Granulation Quality [place] -Necrosis Amt Small (1-33%) -Necrotic Tissue Type [...] Date Recorded By Document 05/16/24 11:02 DS [id number] 05/16/24 11:12 DS 05/16/24 11:02 Wound Center [...] Recorded Date Recorded By Document 05/16/24 11:[address] [facility] [id number] 05/16/24 11:[address] [facility] 05/16/24 11:20 Wound Care Center Nurse [...] Transportation Private Auto Charges/Coding Procedures Integumentary 111xxx-113xx: 74646 Global Visit Assessment/Plan Assessment/Plan (1) History of reconstruction of both breasts: CODE(S): Z98.890 - Other specified postprocedural states PLAN: Central abdomen with with some break down centrally. Debrided and cleaned today. Umbilicus and right breast healing well. Continue Aquacel Ag dressings twice daily. F/u in 1 week 05/16/24 1640 Cosigner Signature (if applicable): CC: ~ Signed [facility]02-21-2025 Evaluation note* Diagnosis Onset Date Resolution Status Admit Date Fat necrosis (segmental) of breast acute May 06, 025 1:30pm Fat necrosis (segmental) of breast acute May 10, 025 3:22pm History of reconstruction of both breasts acute May 10 025 3:22pm Seroma acute May 10, 2024 [...] breast reconstruction acute July 07, 2024 2:59pm Status post bilateral breast reconstruction acute July 28, 2024 2 :59pm History of reconstruction of both breasts acute August 17, 2024 6 :00am History of reconstruction of both breasts acute August 19, 2024 8 :18am History of reconstruction of both breasts acute August 25, 2024 9:54am History of reconstruction of both breasts acute September 01, 2024 9:51am [facility] Work Phone: 1(411) 810-388902-18-2025 Evaluation note* Diagnosis Onset Date Resolution Status Admit Date Fat necrosis (segmental) of breast acute May 03, 025 8:19am Seroma acute May 03, 2024 [...] breast reconstruction acute July 07, 2024 2:59pm Status post bilateral breast reconstruction acute July 28, 2024 2 :59pm History of reconstruction of both breasts acute August 17, 2024 6 :00am History of reconstruction of both breasts acute August 19, 2024 8 :18am [facility] Work Phone: 1(984) 406-470902-11-2025 Evaluation note* Diagnosis Onset Date Resolution Status [...] breast reconstruction acute July 07, 2024 2:59pm Status post bilateral breast reconstruction acute July 28, 2024 2 :59pm History of reconstruction of both breasts acute August 17, 2024 6 :00am [facility] Work Phone: 1([phone]) 330-824102-04-2025 Evaluation note* Diagnosis Onset Date Resolution Status [...] breast reconstruction acute July 07, 2024 2:59pm Status post bilateral breast reconstruction acute July 28, 2024 2 :59pm History of reconstruction of both breasts acute August 17, 2024 6 :00am [facility] Work Phone: 1([phone]) 924-885101-19-2025 [facility] Medical Records Department [address] [place] [address] Discharge Summary 04/03/24 1032 MR#: [id number] Acct: [id number] Name: IRENE LOPEZ Rep #: [id number] : 1975 48 From: Marlon Allen MD [...] bilateral breast reconstruction using Deep Inferior Epigastric Mortar Carrier (MICHELLE) flaps on 31 Mar 2024. She went [...] her chest/the flaps. 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 during my exam CHEST: Flaps warm [...] Left Upper Extremity Inspection:N (more content not included)...[facility]01-15-2025 Evaluation note* Diagnosis Onset Date Resolution Status [...] prophylactic mastectomy of both breasts chronic Febru 2024 3:22pm Status post implant removal from [...] breast reconstruction acute July 07, 2024 2:59pm [facility] Work Phone: [phone] History of Present illness Narrative* Amanda Osborne [...] Primary [facility] Osborne MD [facility] Work Phone: 1([phone]) 659-307201-06-2025 Instructions* Patient Instructions* Amanda Osborne MD - 03/21/2024 8:20 AM EST She is medically stable for surgery. Follow up here as needed. [facility] Work Phone: 1([phone]) 961-974512-19-2024 Evaluation note* Diagnosis Onset Date Resolution Status Admit Date History of reconstruction of both breasts acute March 03, 024 2:47pm Deformity of reconstructed breast chronic March 03 024 2:47pm History of reconstruction of both breasts acute March 30 3:17pm Deformity of reconstructed breast chronic March 30 3:17pm History of reconstruction of both breasts acute March 31 8:00pm Deformity of reconstructed breast chronic March 31 8:00pm History of prophylactic mastectomy of both breasts chronic Janua ry 2024 8:00pm Prophylactic breast removal inactive March [...] breakdown of skin acute June 06 8:45am [facility] Work Phone: 1([phone]) 762-187512-17-2024 History of Present illness Narrative* Zenaida Silva [...] HISTORY 02/06/2020 Tooth extraction TOTAL ABDOMINAL HYSTERECTOMY 2018 Past med hx and past surg hx [...] 3.2 oz) BMI 30.65 kg/m PHYSICAL EXAMINATION: Glue Drier Operator present for exam: Irene Lacy LPN Well-developed, well nourished, in no [...] visit in 1 year. [facility] Work Phone: 1([phone]) 416-240110-22-2024 History of Present illness Narrative* Judith Osullivan [...] to be having deep inferior epigastric artery avionics safety inspector flap for breast reconstruction after her mastectomy. [...] examination Amanda Osborne MD [facility] Work Phone: [phone]) 836-987210-22-2024 Instructions* Patient Instructions* Amanda Osborne MD - 01/05/2024 8:20 AM EDT She is medically stable for surgery. [facility] Work Phone: [phone]) 814-746605-21-2024 History of Present illness Narrative* KARLY Cruz - 08/04/2023 9:25 AM EDT 47 y.o. [...] Review Audit Reviewed by Geno Esquivel MA (Nurse Rn Bsn) on 08/04/23 at 0927 Medication Order Taking? Sig Documenting Provider Last Dose Status diazePAM (Valium) 5 mg tablet [id number] Yes Take 1 tablet (5 mg) by mouth every 8 hours if needed for muscle spasms. Historical Provider, Taking Active fluticasone (Flonase) 50 mcg/actuation nasal spray [id number] Yes USE 2 SPRAY(S) IN EACH NOSTRIL TWICE DAILY Amanda Osborne MD Taking Active ibuprofen 800 mg tablet [id number] Yes Take 1 tablet (800 mg) by mouth every 8 hours if needed for mild pain (1 - 3). Amanda Osborne MD Taking Active levoFLOXacin (Levaquin) 500 mg tablet [id number] Yes Take 1 tablet (500 mg) by mouth once daily. Historical Provider, Unknown Active omeprazole (PriLOSEC) [address] capsule [id number] Yes Take 1 capsule (40 mg) by mouth once daily. Amanda Osborne MD Taking Active SUMAtriptan (Imitrex) 100 mg tablet [id number] Yes Take 1 tablet (100 mg) by mouth 1 time if needed for migraine (TAKE 1 TABLET EVERY 2 HOURS NEEDED FOR MIGRAINE. DO NOT EXCEED 200 MG). Amanda Martinez MD Taking Active valACYclovir (Valtrex) 500 mg tablet [id number] Yes Take 1 tablet (500 mg) by mouth once daily. Amanda Osborne MD Taking Active Past Medical History: Diagnosis Date Encounter for examination of eyes and vision without abnormal findings Examination of eyes and vision Encounter for full-term uncomplicated delivery ([facility]) Normal vaginal delivery Encounter for gynecological examination [...] Irene's care are: none Ab Puri CNP [facility] [phone] documented in [facility] Work Phone: 1([phone]) 146-975102-02-2024 History of Present illness Narrative* Judith Osullivan [...] tablet Amanda Osborne MD documented in this [facility] Work Phone: 1(732) 232-318102-02-2024 Instructions* Patient Instructions* Amadna Osborne MD - 04/17/2023 3:20 PM EST Will check a doppler of the leg, continue other current medications. Follow up based on results andsymptoms. [facility] Work Phone: [phone] History of Present illness Narrative* Zenaida Silva [...] 6 months for yearly [facility] Work Phone: [phone]) 129-806411-10-2023 Discharge summary Author Rachel Beard [facility] January 23, 2023 2:29pm Note Date/Time January 23, 2023 2:05pm [facility] Medical Records Department [address] [place] [address] Instructions for Home/Discharge Instructions 01/23/23 1317 MR#: [id number] Acct: [id number] Name: IRENE LOPEZ Rep #:[id number] : 1975 47 From: Rachel gibson SENIOR PHARMACY TECHNICIAN SENIOR PHARMACY TECHNICIAN-C PCP: Dr. Amanda Osborne MD Statu s:ADM [...] Follow Up With: Zenaida Barrett MD When: [facility] will call you Thursday to set up your appointment on Thursday. If you have any questions call [phone] Test Results: Test results from this visit [...] Order can be placed): Home, Self Care 01/23/231428<Electronically signed by Rachel Beard SENIOR PHARMACY TECHNICIAN SENIOR PHARMACY TECHNICIAN-C>Rachel Beard NP SENIOR PHARMACY TECHNICIAN-C CC: Dr. Amanda Osborne MD ~ Signed [facility] Work Phone: [phone]) 527-918711-10-2023 Progress note Author Rachel Beard [facility] January 23, 2023 2:49pm Note Date/Time January 23, 2023 2:36pm [facility] Medical Records Department [address] [place] [address] Progress Note - Surgery 01/23/231428 MR#: [id number] Acct: [id number] Name: IRENE LOPEZ Rep #:[id number] : 1975 47 From: Rachel Cabrera SENIOR PHARMACY TECHNICIAN SENIOR PHARMACY TECHNICIAN-C PCP: Dr. Amanda Osboren MD Statu s:ADM ALEX Location: MS3 RH999-4 Subjective Subjective Postop #2 Patient is complaining [...] 3190 975.00 / 975.00 Output Total 1974 / 1974 1665 / 1665 116 / 116 [...] GFR (MDRD) Non-Af 87, BUN/Creatinine Ratio 20.0, [id number] H, Calcium 8.4 L Micro: Microbiology 01/21/23 [...] in our office for follow up. 01/23/23 2934 <Electronically signed by Rachel E Kisha SENIOR PHARMACY TECHNICIAN SENIOR PHARMACY TECHNICIAN-C> Cosigner Signature (if applicable): CC: ~ Signed [facility] Work Phone: 1([phone]) 412-967411-10-2023 Progress note Author Rachel Beard [facility] January 22, 2023 10:24pm Note Date/Time January 22, 2023 1 0:06pm [facility] Medical Records Department [address] [place] [address] Progress Note - Surgery 01/22/23 1220 MR#: [id number] Acct: [id number] Name: IRENE LOPEZ Rep #:[id number] : 1975 47 From: Rachel gibson SENIOR PHARMACY TECHNICIAN SENIOR PHARMACY TECHNICIAN-C PCP: Dr. Amanda Osborne MD Statu s:ADM ALEX Location: [place] [address] Subjective Subjective Postop #1 Patient sitting in [...] GFR (MDRD) Non-Af 85, BUN/Creatinine Ratio 18.2, [id number] H, Calcium 8.7, Prealbumin 20.8 01/22/23 19:22: [...] 01/22/232223 <Electronically signed by Rachel Beard NP SENIOR PHARMACY TECHNICIAN-C> Cosigner Signature (if applicable): CC: ~ Signed [facility] Work Phone: [phone]) 618-407011-08-2023 Consult note Author Meredith Brandt [facility] January 21, 2023 7:59pm Note Date/Time January 21, 2023 7 :59pm [facility] Medical Records Department [address] [place] [address] Pharmacokinetic/Renal -Consult 01/21/231957 MR#: [id number] Acct: [id number] Name: IRENE LOPEZ Rep #:[id number] : 1975 47 From: Meredith Brandt PCP: Dr. Amanda Osborne MD Statu s:ADM ALEX Y Location: [place] [address] Consult Antibiotic Management Pharmacy has been consulted [...] Signature (if applicable): Date CC: ~ Signed [facility] Work Phone: [phone]) 927-941907-23-2023 Discharge summary Author Zenaida Barrett [facility] October 05, 2022 10:48am Note Date/Time October 05, 2022 7:58 am [facility] Medical Records Department [address] [place] [address] Instructions for Home/Discharge Instructions 10/05/22 0757 MR#: [id number] Acct: [id number] Name: IRENE LOPEZ Rep #:[id number] : [...] When: one week ( or Thursday). call [phone] for appt. Test Results: Test results from [...] CC: Dr. Amanda Osborne MD ~ Signed [facility] Work Phone: 1([phone]) 777-293707-23-2023 Consult note Author [facility]ida [facility] October 05, 2022 7:35am Note Date/Time October 03, 2022 5:22 pm [facility] Medical Records Department [address] [place] [address] Pharmacokinetic/Renal -Consult 10/03/22 1721 MR#: [id number] Acct: [id number] Name: IRENE LOPEZ Rep #:[id number] : 1975 46 From: Shira Grissom PCP: Dr. Amanda Osborne MD Statu s:ADM ALEX Y Location: [place] [address] Consult Antibiotic Management Pharmacy has been consulted [...] to monitor and adjust dosing as required. 10/03/22 172 <Electronically signed by Shira Grissom> Date _ Shira Grissom 10/05/22 0735 <Electronically signed by Zenaida Barrett MD> Cosigner Signature (if applicable): Date Zenaida Barrett MD CC: ~ Signed [facility] Work Phone: [phone]) 180-583807-22-2023 Consult note Author Marlon Hightower [facility] October 04, 2022 6:27pm Note Date/Time October 04, 2022 6:27 pm [facility] Medical Records Department [address] [place] [address] Pharmacokinetic/Renal -Consult 10/04/22 1823 MR#: [id number] Acct: [id number] Name: IRENE LOPEZ Rep #:[id number] : 1975 46 From: Marlon Hightower PCP: Dr. Amanda Osborne MD Statu s:ADM ALEX Y Location: [place] [address] Consult Antibiotic Management Pharmacy has been consulted [...] to monitor and adjust dosing as required. 10/04/22 8315 <Electronically signed by Marlon Hightower> Date _ Marlon Hightower Cosigner Signature (if applicable): Date CC: ~ Signed [facility] Work Phone: [phone]) 917-672603-21-2023 Progress note Author Rachel Beard [facility] June 03, 2022 9:23am Note Date/Time May 19, 2022 11:2 4am [facility]aling [facility] [address] [place] [address] Progress Note - Wound Care HBO 05/19/22 1124 MR#: [id number] Acct: [id number] Name: IRENE LOPEZ Rep #:[id number] : 1975 46 From: Rachel gibson NP SENIOR PHARMACY TECHNICIAN-C PCP: Dr. Amanda Osborne MD Statu s:REG RCR Location: ADDENDUM by SENIOR PHARMACY TECHNICIAN-C Rachel Beard on 06/03/22 at 0923 Addendum Addendum: 40112 Modifier 24 06/03/22 0923<Electronically signed by Rachel Beard NP SENIOR PHARMACY TECHNICIAN-C> Cosigner Signature (if applicable): cc: ~* Signed [...] Start: 05/16/22 12:18 Freq: Status: Active Protocol: WC.LOWBRANDYT Activity Type Activity Date Activity User E-sign Co-sign Detail Recorded Client Recorded Date Recorded By Document 05/19/22 08:38 DL [id number] 05/19/22 08:44 DL 05/19/22 08:38 - Today's Visit Information Type of service Follow-up Visit (Physician/SOLE ROUNDING MACHINE OPERATOR ) Arrival Mode Ambulatory Transfer Assistance None [...] Patient Pain Free? Yes WC - Nurse 1 - General Ulcer Measurement Start: 05/16/22 12:18 Freq: Status: Active Protocol: Activity Type Activity Date Activity User E-sign Co-sign Detail Recorded Client Recorded Date Recorded By Document 05/19/22 08:38 DL [id number] 05/19/22 08:44 DL 05/19/22 08:38 Wound Center Nurse 1 #2 L BREAST -Current Size (cm) - Length 9 -Current Size (cm) - Width 2 -Current Size (cm) - Depth 0.1 -Total Square Cm 18 -Exudate Amt Small -Exudate Type Serosanguineous -Wound Margin Distinct, Outline Attached -Granulation Amt Medium (34-66%) -Granulation Quality [place] -Slough/Fibrin Yes -Necrosis Amt Large (67-100%) -Necrotic [...] Charges/Coding Wound Center CF Procedures HBO Supervision: 47490 Hyperbaric Oxygen; supervision (modifier 25) Assessment/Plan Assessment/Plan [...] 1322 <Electronically signed by Rachel Beard NP SENIOR PHARMACY TECHNICIAN-C> Cosigner Signature (if applicable): CC: ~ Signed [facility] Work Phone: 1([phone]) 980-420403-20-[address] Barrett [facility] June 02, 2022 3:52pm Note Date/Time June 02, 2022 2:1 9pm [facility] Medical Records Department [address] [place] [address] Instructions for Home/Discharge Instructions 06/02/22 1418 MR#: [id number] Acct: [id number] Name: IRENE LOPEZ Rep #:[id number] : [...] Zenaida Barrett MD When: one week. call [phone] for appt Test Results: Test results from [...] CC: Dr. Amanda Osborne MD ~ Signed [facility] Work Phone: 1([phone]) 345-239103-18-2023 Consult note Author Giancarlo Omalley [facility] May 31, 2022 8:40pm Note Date/Time May 31, 2022 8:4 0pm [facility] Medical Records Department [address] [place] [address] Pharmacokinetic/Renal -Consult 05/31/222037 MR#: [id number] Acct: [id number] Name: IRENE LOPEZ Rep #:[id number] : 1975 46 From: Giancarlo Omalley PCP: Dr. Amanda Osborne MD Statu s:ADM ALXE Y Location: [place] [address] Consult Pharmacy has been consulted to manage [...] Signature (if applicable): Date CC: ~ Signed [facility] Work Phone: 1([phone]) 852-340003-17-2023 History and physical note Author Dr. Barrett [facility] May 30, 2022 8:26am Note Date/Time May 30, 2022 8:1 1am [facility] Medical Records Department [address] [place] [address] History & Physical Exam 05/30/22 0810 MR#: [id number] Acct: [id number] Name: IRENE LOPEZ Rep #:[id number] : 1975 46 From: Zenaida Greer PCP: Dr. Amanda Osborne MD Statu s:[place] [facility] [place] [address] History and Physical Date of Admission: 05/30/22 [...] and TP53.? The testing was done by [employer] She had a heterozygous DEISY mutation [...] Her last mammogram was in May,, in [place].? Patient states it was normal.? It showed very dense breast parenchyma bilaterally.? No obvious mass lesion.? Palpable nodule left breast 2 olock position in subcutaneous tissue such as sebaceous cyst.? Benign, no evidence malignancy.? We have received medical approval for her breast reconstruction surgery.? She has decided on proceeding with bilateral prophylactic mastectomy with prepectoral breast implant reconstruction possible placement saline tissue croze cutter helper and acellular dermal matrix graft.? Initially she [...] will hold off on placement of an croze cutter helper at this time.? Will debride the wound and proceed with complex secondary wound closure.? After healing has occurred and the infection has been treated, will return to the operating room for placement of a tissue croze cutter helper in a delayed fashion, tentatively 6 months.? If there is no pus after removing the implant, then I would decide about placing a tissue croze cutter helper at that time or just closing the wound and allowing healing to occur and then placing a tissue croze cutter helper in a delayed fashion, tentatively 3 months. [...] were included in a form from the [place] [employer]. Potential risks and [...] two stage placement of a saline tissue croze cutter helper (smooth) followed by removal of the croze cutter helper with replacement cohesive gel implant and placement [...] She would be flat if a tissue croze cutter helper was placed.? For a single stage procedure, [...] with the placement of a saline tissue croze cutter helper.? With the expansion, the nipple may elevate [...] proceed with placement of a saline tissue croze cutter helper.? This would expand the skin and breast pocket so a larger implant can be placed after the croze cutter helper is removed. She understands that she may or may not wake up with a breast mound.? If a saline tissue croze cutter helper is placed, then additional surgery would be necessary to replace the croze cutter helper with a cohesive gel implant.? The chance [...] implants or placement of a saline tissue croze cutter helper and subsequent tissue croze cutter helper removal with replacement cohesive gel implant.? It [...] carcinoma. Her last mammogram was done in [place] in May,.? It showed dense breast parenchyma [...] were included in a form from the [place] [employer]. Potential risks and [...] anemia due to expected blood loss: 05/30/22 0826 <Electronically signed by Zenaida Barrett MD> Cosigner Signature (if applicable): CC: Dr. Zenaida Barrett MD; Dr. Amanda Osborne MD~ Signed [facility] Work Phone: 1(610) 482-998703-14-[address] Alvarez [facility] May 27, 2022 2:07pm Note Date/Time May 27, 2022 2:0 7pm [facility] [address] [place] [address] Progress Note - Wound Care HBO 05/27/22 1403 MR#: [id number] Acct: [id number] Name: IRENE LOPEZ Rep #:[id number] : 1975 46 From: Edd Greer PCP: Dr. Amanda Osborne MD Statu s:PRE [facility] [place] [facility] History of Present Illness Date of Service: [...] medical plan. This note was generated with [employer] dictation software. It may contain incorrectwords, spelling, and punctuation that were not noted in checking the note beforesigning. 05/27/22 7077 <Electronically signed by Edd Alvarez MD> Cosigner Signature (if applicable): CC: ~ Signed [facility] Work Phone: 1([phone]) 475-128003-13-2023 Progress note Author Sarah Beth Maldonado [facility] May 26, 2022 10:12am Note Date/Time May 26, 2022 9:1 9am [facility] [address] [place] [address] Progress Note - Wound Care HBO 05/26/22 0917 MR#: [id number] Acct: [id number] Name: IRENE LOPEZ Rep #:[id number] : 1975 46 From: Sarah Beth elena SENIOR PHARMACY TECHNICIAN SENIOR PHARMACY TECHNICIAN-C PCP: Dr. Amanda Osborne MD Statu s:REG [...] medical plan. This note was generated with [employer] dictation software. It may contain incorrectwords, spelling, and punctuation that were not noted in checking the note beforesigning. 05/26/22 1012 <Electronically signed by Sarah Beth Maldonado NP SENIOR PHARMACY TECHNICIAN-C> Cosigner Signature (if applicable): CC: ~ Signed [facility] Work Phone: 1([phone]) 505-123803-10-2023 Progress note Author Rachel Beard [facility] May 23, 2022 3:57pm Note Date/Time May 19, 2022 11:2 4am [facility] [address] [place] [address] Progress Note - Wound Care 05/19/22 1123 MR#: [id number] Acct: [id number] Name: IRENE LOPEZ Rep #:[id number] : 1975 46 From: Rachel gibson NP SENIOR PHARMACY TECHNICIAN-C PCP: Dr. Amanda Osborne MD Statu s:REG [...] 09:45 05/19/22 09:45 Charges/Coding Procedures Integumentary 111xxx-113xx: 47819 Global Visit Debridement Note Debridement Note Wound [...] Start: 05/16/22 12:18 Freq: Status: Active Protocol: ANGY.DARIANEXMagnus Activity Type Activity Date Activity User E-sign Co-sign Detail Recorded Client Recorded Date Recorded By Document 05/19/22 08:38 DL [id number] 05/19/22 08:44 DL 05/19/22 08:38 - Today's Visit Information Type of service Follow-up Visit (Physician/SOLE ROUNDING MACHINE OPERATOR ) Arrival Mode Ambulatory Transfer Assistance None [...] Patient Pain Free? Yes WC - Nurse 1 - General Ulcer Measurement Start: 05/16/22 12:18 Freq: Status: Active Protocol: Activity Type Activity Date Activity User E-sign Co-sign Detail Recorded Client Recorded Date Recorded By Document 05/19/22 08:38 DL [id number] 05/19/22 08:44 DL 05/19/22 08:38 Wound Center Nurse 1 #2 L BREAST -Current Size (cm) - Length 9 -Current Size (cm) - Width 2 -Current Size (cm) - Depth 0.1 -Total Square Cm 18 -Exudate Amt Small -Exudate Type Serosanguineous -Wound Margin Distinct, Outline Attached -Granulation Amt Medium (34-66%) -Granulation Quality [place] -Slough/Fibrin Yes -Necrosis Amt Large (67-100%) -Necrotic [...] sooner if develop any concerns. ?? 05/23/22 7499 <Electronically signed by Rachel Beard NP SENIOR PHARMACY TECHNICIAN-C> Cosigner Signature (if applicable): CC: ~ Signed [facility] Work Phone: 1(649) 388-586503-09-[address] Castellon [facility] May 22, 2022 12:57pm Note Date/Time May 22, 2022 9:23 am [facility] Wound Healing Center [address] [place] [address] Progress Note - Wound Care HBO 05/22/22920 MR#: [id number] Acct: [id number] Name: IRENE LOPEZ Rep #:[id number] : [...] Measurements and Additional Note: Post-Debridement Measurements/Treatment ANGY Brown Nurse 1 - General Ulcer Assessment Start: 05/16/22 12:18 Freq: Status: Active Protocol: HERNANDEZ Activity Type Activity Date Activity User E-sign Co-sign Detail Recorded Client Recorded Date Recorded By Document 05/19/22 08:38 DL [id number] 05/19/22 08:44 DL 05/19/22 08:38 ANGY Brown Today's Visit Information Type of service Follow-up Visit (Physician/SOLE ROUNDING MACHINE OPERATOR ) Arrival Mode Ambulatory Transfer Assistance None [...] 0-10 Numeric Is Patient Pain Free? Yes Kevin Nurse 1 - General Ulcer Measurement Start: 05/16/22 12:18 Freq: Status: Active Protocol: Activity Type Activity Date Activity User E-sign Co-sign Detail Recorded Client Recorded Date Recorded By Document 05/19/22 08:38 DL [id number] 05/19/22 08:44 DL 05/19/22 08:38 Wound Center Nurse 1 #2 L BREAST -Current Size (cm) - Length 9 -Current Size (cm) - Width 2 -Current Size (cm) - Depth 0.1 -Total Square Cm 18 -Exudate Amt Small -Exudate Type Serosanguineous -Wound Margin Distinct, Outline Attached -Granulation Amt Medium (34-66%) -Granulation Quality [place] -Slough/Fibrin Yes -Necrosis Amt Large (67-100%) -Necrotic [...] Date Recorded By Document 05/19/22 08:50 FÉLIX [id number] 05/19/22 15:45 FÉLIX 05/19/22 08:50 Wound Center [...] Charges/Coding Wound Center CF Procedures HBO Supervision: 88388 Hyperbaric Oxygen; supervision Assessment/Plan Assessment/Plan (1) Other [...] medical plan. This note was generated with Vastariation software. It may contain incorrectwords, spelling, and punctuation that were not noted in checking the note beforesigning. 05/22/22 1257 <Electronically signed by Robby Castellon MD> Cosigner Signature (if applicable): CC: ~ Signed [facility] Work Phone: 1(276) 974-938303-08-2023 Progress note Author Soco Tipton [facility] May 21, 2022 11:49am Note Date/Time May 21, 2022 11:4 9am [facility] [address] [place] [address] Progress Note - Wound Care HBO 05/21/22 1147 MR#: [id number] Acct: [id number] Name: IRENE LOPEZ Rep #:[id number] : 1975 46 From: Soco Tipt[place] NP SENIOR PHARMACY TECHNICIAN-C PCP: Dr. Amanda Osborne MD Statu s:REG [...] Start: 05/16/22 12:18 Freq: Status: Active Protocol: ANGY.LOWBRANDYT Activity Type Activity Date Activity User E-sign Co-sign Detail Recorded Client Recorded Date Recorded By Document 05/19/22 08:38 DL [id number] 05/19/22 08:44 DL 05/19/22 08:38 - Today's Visit Information Type of service Follow-up Visit (Physician/SOLE ROUNDING MACHINE OPERATOR ) Arrival Mode Ambulatory Transfer Assistance None [...] Date Recorded By Document 05/19/22 08:38 DL [id number] 05/19/22 08:44 DL 05/19/22 08:38 Wound Center Nurse 1 #2 L BREAST -Current Size (cm) - Length 9 -Current Size (cm) - Width 2 -Current Size (cm) - Depth 0.1 -Total Square Cm 18 -Exudate Amt Small -Exudate Type Serosanguineous -Wound Margin Distinct, Outline Attached -Granulation Amt Medium (34-66%) -Granulation Quality [place] -Slough/Fibrin Yes -Necrosis Amt Large (67-100%) -Necrotic [...] Date Recorded By Document 05/19/22 08:50 FÉLIX [id number] 05/19/22 15:45 FÉLIX 05/19/22 08:50 Wound Center [...] 1149 <Electronically signed by Soco Tipton NP SENIOR PHARMACY TECHNICIAN-C> Cosigner Signature (if applicable): CC: ~ Signed [facility] Work Phone: 1(686) 396-208903-07-2023 Progress note Author Edd Alvarez [facility] May 20, 2022 2:11pm Note Date/Time May 20, 2022 2:05 pm [facility] Wound Healing Center [address] [place] [address] Progress Note - Wound Care HBO 05/20/22 1402 MR#: [id number] Acct: [id number] Name: IRENE LOPEZ Rep #:[id number] : [...] Date Recorded By Document 05/19/22 08:38 DL [id number] 05/19/22 08:44 DL 05/19/22 08:38 - Today's Visit Information Type of service Follow-up Visit (Physician/SOLE ROUNDING MACHINE OPERATOR ) Arrival Mode Ambulatory Transfer Assistance None [...] Patient Pain Free? Yes WC - Nurse 1 - General Ulcer Measurement Start: 05/16/22 12:18 Freq: Status: Active Protocol: Activity Type Activity Date Activity User E-sign Co-sign Detail Recorded Client Recorded Date Recorded By Document 05/19/22 08:38 DL [id number] 05/19/22 08:44 DL 05/19/22 08:38 Wound Center Nurse 1 #2 L BREAST -Current Size (cm) - Length 9 -Current Size (cm) - Width 2 -Current Size (cm) - Depth 0.1 -Total Square Cm 18 -Exudate Amt Small -Exudate Type Serosanguineous -Wound Margin Distinct, Outline Attached -Granulation Amt Medium (34-66%) -Granulation Quality [place] -Slough/Fibrin Yes -Necrosis Amt Large (67-100%) -Necrotic [...] Date Recorded By Document 05/19/22 08:50 FÉLIX [id number] 05/19/22 15:45 FÉLIX 05/19/22 08:50 Wound Center [...] Cosigner Signature (if applicable): CC: ~ Signed [facility] Work Phone: 1(442) 278-908302-28-2023 History and physical note Author Edd Alvarez [facility] May 13, 2022 3:32pm Note Date/Time May 13, 2022 3:32pm [facility] Wound Healing Center [address] [place] [address] H&P Exam - Wound Care 05/13/22 1525 MR#: [id number] Acct: [id number] Name: IRENE LOPEZ Rep #:[id number] : [...] incisions are dry and intact. [facility] Medical History Acquired absence of bilateral breasts [...] Date Recorded By Document 04/28/22 08:25 ML [id number] 04/28/22 08:30 ML Document 05/05/22 08:37 DL [id number] 05/05/22 08:40 DL Document 05/12/22 08:46 AK [id number] 05/12/22 08:48 AK 04/28/22 05/05/22 05/12/22 08:25 08:37 08:46 WC - Today's Visit Information Type of service Initial Visit Follow-up Visit Follow-up Visit (Physician/SOLE ROUNDING MACHINE OPERATOR (Physician/SOLE ROUNDING MACHINE OPERATOR ) ) Arrival Mode Ambulatory Ambulatory Ambulatory [...] Is Patient Pain Free? Yes Yes No - Nurse 1 - General Ulcer Measurement Start: 04/28/22 08:19 Freq: Status: Active Protocol: Activity Type Activity Date Activity User E-sign Co-sign Detail Recorded Client Recorded Date Recorded By Document 04/28/22 08:25 ML [id number] 04/28/22 08:30 ML Document 05/05/22 08:37 DL [id number] 05/05/22 08:40 DL Document 05/12/22 08:46 AK [id number] 05/12/22 08:48 AK 04/28/22 05/05/22 05/12/22 08:25 [...] Recorded Date Recorded By Document 04/28/22 08:45 [id number] 04/28/22 08:47 Document 05/05/22 08:54 [id number] 05/05/22 09:06 Document 05/12/22 09:04 [id number] 05/12/22 09:07 Edit Result 05/12/22 09:04 (1) [id number] 05/12/22 09:09 (1) #2 L BREAST - [...] => Not Healed - Debridement - Subq, 1st 20sq cm => No #1 R BREAST [...] Recorded Date Recorded By Document 05/05/22 09:[address] [facility] [id number] 05/05/22 09:16 BM Document 05/12/22 09:16 ML [id number] 05/12/22 09:17 ML 05/05/22 05/12/22 09:16 09:16 [...] good condition. Total time: 15 minutes 05/13/22 5112 <Electronically signed by Edd Alvarez MD> Cosigner Signature (if applicable): CC: ~ Signed [facility] Work Phone: 1(147) 831-475702-27-2023 Progress note Author Rachel Beard [facility] May 12, 2022 4:56pm Note Date/Time May 12, 2022 2:41pm [facility] Wound Healing Center [address] [place] [address] Progress Note - Wound Care 05/12/22 1440 MR#: [id number] Acct: [id number] Name: IRENE LOPEZ Rep #:[id number] : 1975 46 From: Rachel Cabrera SENIOR PHARMACY TECHNICIAN SENIOR PHARMACY TECHNICIAN-C PCP: Dr. Amanda Osborne MD Statu s:REG [...] Stain - Final Charges/Coding Procedures Integumentary 111xxx-113xx: 51584 Global Visit Debridement Note Debridement Note No debridement was completed: No debridement was completed today Post-Debridement Measurements and Additional Note: Post-Debridement Measurements/Treatment WC - Nurse 1 - General Ulcer Assessment Start: 04/28/22 08:19 Freq: Status: Active Protocol: HERNANDEZ Activity Type Activity Date Activity User E-sign Co-sign Detail Recorded Client Recorded Date Recorded By Document 04/28/22 08:25 ML [id number] 04/28/22 08:30 ML Document 05/05/22 08:37 DL [id number] 05/05/22 08:40 DL Document 05/12/22 08:46 AK [id number] 05/12/22 08:48 AK 04/28/22 05/05/22 05/12/22 08:25 08:37 08:46 - Today's Visit Information Type of service Initial Visit Follow-up Visit Follow-up Visit (Physician/SOLE ROUNDING MACHINE OPERATOR (Physician/SOLE ROUNDING MACHINE OPERATOR ) ) Arrival Mode Ambulatory Ambulatory Ambulatory [...] Date Recorded By Document 04/28/22 08:25 ML [id number] 04/28/22 08:30 ML Document 05/05/22 08:37 DL [id number] 05/05/22 08:40 DL Document 05/12/22 08:46 AK [id number] 05/12/22 08:48 AK 04/28/22 05/05/22 05/12/22 08:25 [...] Adherent Slough -Structure Exposed N/A N/A -Texture (Traah-wound Skin Appearance) Assessed Scarring No Abnormality, Assessed [...] Recorded Date Recorded By Document 04/28/22 08:45 FÉLIX [id number] 04/28/22 08:47 JF Document 05/05/22 08:54 JF [id number] 05/05/22 09:06 JF Document 05/12/22 09:04 JF [id number] 05/12/22 09:07 JF Edit Result 05/12/22 09:04 JF (1) [id number] 05/12/22 09:09 JF (1) #2 L BREAST [...] => Not Healed - Debridement - Subq, 1st 20sq cm => No #1 R BREAST [...] (cm) => 10.50 - Debridement - Subq, 1st 20sq cm => No 04/28/22 05/05/22 05/12/22 [...] Recorded Date Recorded By Document 05/05/22 09:[address] [facility] [id number] 05/05/22 09:16 BM Document 05/12/22 09:16 ML [id number] 05/12/22 09:17 ML 05/05/22 05/12/22 09:16 09:16 [...] sooner if develop any concerns. ?? 05/12/22 1656 <Electronically signed by Rachel Beard NP SENIOR PHARMACY TECHNICIAN-C> Cosigner Signature (if applicable): CC: ~ Signed [facility] Work Phone: 1(826) 322-391502-22-2023 NoteAccession #: [id number] Date of Procedure: 05/07/2022 Pathologist: [facility], Cytology Date Reported: 05/15/2022 Date Received: 05/07/2022 Submitting Physician: ZENAIDA SILVA MD Attending Physician: ZENAIDA SILVA MD FINAL CYTOLOGICAL INTERPRETATION A. THINPREP PAP VAGINAL: Specimen Adequacy: SATISFACTORY FOR EVALUATION. General Categorization: NEGATIVE FOR INTRAEPITHELIAL LESION OR MALIGNANCY. HIGH RISK HPV TEST RESULT: HPV GENOTYPE 16 NEGATIVE HPV GENOTYPE 18 NEGATIVE HPV GENOTYPE OTHER NEGATIVE Reference Range: Negative QC review performed at [facility], [address] [place] [address] Testing for high-risk (HR) type of human [...] verified by the Molecular Diagnostic Laboratory at [facility]. The lab is certified under the Clinical Laboratory Amendments of 1988 (CLIA 88) as qualified to perform high complexity clinical laboratory testing. This specimen has been analyzed by the ParchmentPrep Imaging System ([employer] an automated imaging and review system, which assists the laboratory in evaluating cells on ThinPrep Pap tests. Following automated imaging, selected pierce from every slide were reviewed by a brand communications manager and/or pathologist. Electronically Signed Out By [facility], Cytology//IK/JMD By the signature on this report, the individual or group listed as making the Final Interpretation/Diagnosis certifies that they have reviewed this case. Diagnostic interpretation performed at [facility] [address] [facility] [place] [address] Educational Note: Cervical cytology is a screening [...] Source of Specimen A: THINPREP PAP VAGINAL [facility] Department of Pathology [address] [place], [place] [address]Overlook Medical CenterComment on above:Performed By: #### C #### [facility] Cytology [address] [place] [address] [id number] Progress note Author Rachel Beard [facility] May 06, 2022 11:19am Note Date/Time May 05, 2022 10:20am [facility] Wound Healing Center [address] [place] [address] Progress Note - Wound Care 05/05/22 1020 MR#: [id number] Acct: [id number] Name: IRENE LOPEZ Rep #:[id number] : 1975 46 From: Rachel gibson SENIOR PHARMACY TECHNICIAN SENIOR PHARMACY TECHNICIAN-C PCP: Dr. Amanda Osborne MD Statu s:REG [...] 08:37 05/05/22 08:37 Charges/Coding Procedures Integumentary 111xxx-113xx: 52674 Global Visit Physical Exam Const alert, oriented [...] Date Recorded By Document 04/28/22 08:25 ML [id number] 04/28/22 08:30 ML Document 05/05/22 08:37 DL [id number] 05/05/22 08:40 DL 04/28/22 05/05/22 08:25 08:37 - Today's Visit Information Type of service Initial Visit Follow-up Visit (Physician/SOLE ROUNDING MACHINE OPERATOR ) Arrival Mode Ambulatory Ambulatory Transfer Assistance [...] Patient Pain Free? Yes Yes WC - Nurse 1 - General Ulcer Measurement Start: 04/28/22 08:19 Freq: Status: Active Protocol: Activity Type Activity Date Activity User E-sign Co-sign Detail Recorded Client Recorded Date Recorded By Document 04/28/22 08:25 ML [id number] 04/28/22 08:30 ML Document 05/05/22 08:37 DL [id number] 05/05/22 08:40 DL 04/28/22 05/05/22 08:25 08:37 [...] Recorded Date Recorded By Document 04/28/22 08:45 [id number] 04/28/22 08:47 Document 05/05/22 08:54 [id number] 05/05/22 09:06 04/28/22 05/05/22 08:45 08:54 Wound [...] Recorded Date Recorded By Document 05/05/22 09:[address] [facility] [id number] 05/05/22 09:[address] [facility] 05/05/22 09:16 Wound Care Center Nurse [...] 1119 <Electronically signed by Rachel Beard NP SENIOR PHARMACY TECHNICIAN-C> Cosigner Signature (if applicable): CC: ~ Signed [facility] Work Phone: 1([phone]) 323-421202-14-2023 Consult note Author Rachel Beard [facility] April 29, 2022 3:28pm Note Date/Time April 28, 2022 11:46am [facility] Wound Healing Center [address] [place] [address] Consultation - Wound Care HBO 04/28/22 1141 MR#: [id number] Acct: [id number] Name: IRENE LOPEZ Rep #:[id number] : 1975 46 From: Rachel gibson SENIOR PHARMACY TECHNICIAN SENIOR PHARMACY TECHNICIAN-C PCP: Dr. Amanda Osborne MD Statu s:REG [...] Incisions are dry and intact. [facility] Medical History (Reviewed 04/29/22 @ 14:51 by Rachel Beard SENIOR PHARMACY TECHNICIAN, SENIOR PHARMACY TECHNICIAN-C) Acquired absence of bilateral breasts and nipples [...] 500 mg tablet 500 mg PO DAILY 01/13/23 [History Last Taken Unknown] L.acidophil,salivari-Bifido bifidum-Strep thermoph [...] Start: 04/28/22 08:19 Freq: Status: Active Protocol: TASNEEMEXMagnus Activity Type Activity Date Activity User E-sign Co-sign Detail Recorded Client Recorded Date Recorded By Document 04/28/22 08:25 ML [id number] 04/28/22 08:30 ML 04/28/22 08:25 - Today's Visit Information Type of service [...] Patient Pain Free? Yes WC - Nurse 1 - General Ulcer Measurement Start: 04/28/22 08:19 Freq: Status: Active Protocol: Activity Type Activity Date Activity User E-sign Co-sign Detail Recorded Client Recorded Date Recorded By Document 04/28/22 08:25 ML [id number] 04/28/22 08:30 ML 04/28/22 08:25 Wound Center [...] Recorded Date Recorded By Document 04/28/22 08:45 [id number] 04/28/22 08:47 04/28/22 08:45 Pain Scale: 0-10 Numeric Is Patient Pain Free? Yes Charges/Coding Procedures Integumentary 111xxx-113xx: 75417 Global Visit 04/29/22 1528 <Electronically signed by Rachel HAYNESC> Cosigner Signature (if applicable): CC: ~ Signed [facility] Work Phone: 1(313) 534-749201-30-[address] Barrett [facility] April 14, 2022 11:30am Note Date/Time April 13, 2022 8 :43pm [facility] Medical Records Department [address] [place] [address] Progress Note - Surgery 04/13/222037 MR#: [id number] Acct: [id number] Name: IRENE LOPEZ Rep #:[id number] : 1975 46 From: Zenaida Greer PCP: Dr. Amanda Osborne MD Statu s:ADM ALEX Location: [place] [address] Subjective Subjective Postop #2 Patient having some [...] / 3442 1850 / 2110 195 / 1958 Output Total 1650 / 2415 1612 / [...] Cosigner Signature (if applicable): CC: ~ Signed [facility] Work Phone: 1(506) 720-222301-29-[address] Barrett [facility] April 13, 2022 9:28pm Note Date/Time April 12, 2022 8 :25pm [facility] Medical Records Department [facility] [place] [address] Progress Note - Surgery 04/12/222023 MR#: [id number] Acct: [id number] Name: IRENE LOPEZ Rep #:[id number] : 1975 46 From: Zenaida Greer PCP: Dr. Amanda Osborne MD Statu s:ADM ALEX Location: [place] [address] Subjective Subjective Postop #1 Patient has incisional [...] GFR (MDRD) Non-Af 87, BUN/Creatinine Ratio 13.3, Luvsnhl067 H, Calcium 8.4 L, Prealbumin 18.4 L [...] Cosigner Signature (if applicable): CC: ~ Signed [facility] Work Phone: [phone]) 846-493401-28-2023 Procedure [facility] 04-11-2022 History and physical note Author Dr. Barrett [facility] April 10, 2022 10:29pm Note Date/Time April 10, 2022 1 0:24pm [facility] Medical Records Department [address] [place] [address] History & Physical Exam 04/10/222208 MR#: [id number] Acct: [id number] Name: IRENE LOPEZ Rep #:[id number] : 1975 46 From: Zenaida Greer PCP: Dr. Amanda Osborne MD Statu s:PRE [facility] [place] [facility] History and Physical Date of Admission: 04/11/22 HISTORY OF PRESENT ILLNESS 46 year old woman presents for evaluation of her breasts after having genetic testing done in 2019.? The testing was done because of a family history of breast cancer (Grandmother and Aunt).? The genes tested were DEISY, BRCA1, BRCA2, CDH1, CHEK2, PALB2, PTEN, and TP53.? The testing was done by [employer] She had a heterozygous DEISY mutation [...] Her last mammogram was in May,, in [place].? Patient states it was normal.? It showed very dense breast parenchyma bilaterally.? No obvious mass lesion.? Palpable nodule left breast 2 olock position in subcutaneous tissue such as sebaceous cyst.? Benign, no evidence malignancy.? We have received medical approval for her breast reconstruction surgery.? She has decided on proceeding with bilateral prophylactic mastectomy with prepectoral breast implant reconstruction possible placement saline tissue croze cutter helper and acellular dermal matrix graft.? Initially she [...] two stage placement of a saline tissue croze cutter helper (smooth) followed by removal of the croze cutter helper with replacement cohesive gel implant and placement [...] She would be flat if a tissue croze cutter helper was placed.? For a single stage procedure, [...] with the placement of a saline tissue croze cutter helper.? With the expansion, the nipple may elevate [...] proceed with placement of a saline tissue croze cutter helper.? This would expand the skin and breast pocket so a larger implant can be placed after the croze cutter helper is removed. She understands that she may or may not wake up with a breast mound.? If a saline tissue croze cutter helper is placed, then additional surgery would be necessary to replace the croze cutter helper with a cohesive gel implant.? The chance [...] implants or placement of a saline tissue croze cutter helper and subsequent tissue croze cutter helper removal with replacement cohesive gel implant.? It [...] carcinoma. Her last mammogram was done in [place] in May,.? It showed dense breast parenchyma [...] were included in a form from the [employer]. Potential risks and [...] Barrett MD; Dr. Amanda Osborne MD~ Signed [facility] Work Phone: 1(229) 119-764001-01-2023 History of Present illness Narrative Presents for annual exam. She voices no complaints and is doing well. Denies any bowel or bladder problems. Denies any breast problems. Previous hysterectomy. She had bilateral mastectomy with reconstruction in March 2022.[address] Work Phone: 1([phone]) 360-483412-17-2022 History of Present illness Narrative* Here for [...] daily and will refer for EGD/GI evaluation. [facility] Work Phone: 1([phone]) 412-572212-17-2022 History of Present illness Narrative* Here for [...] daily and will refer for EGD/GI evaluation. [facility] Work Phone: 1(620) 238-623401-01-2022 History of Present illness Narrative* SUE Lopez - 03/16/2021 2:10 PM EST URGENT CARE eNCOUnter CHIEF COMPLAINT Sinus Congestion (FOR A WEEK) HPI Irene Lopez is a 45 y.o. female who presents today for Complaining of cough and sinus congestion for the past week. Patient states she has tried many kiwz-ueq-yyivonq cold medications with little relief. Denies fever. [...] PCP. SUE Lopez 03/16/2021 [facility] Inst[facility]* Patient Instructions* SUE Lopez - 03/16/2021 [...] Where can you learn more? Go to http://www.[employer].edu/patiented. Enter D279 in the search box to learn more about 'Cough: Care Instructions.' Interested in seeing a video go to https://[employer].edu/videolibrary to see all video content. Current as of: September 18, 2020 Content Version: 13.1 [employer]. Care instructions adapted under license by your healthcare professional. If you have questions about a medical condition or this instruction, always ask your healthcare professional. [employer] disclaims any warranty or liability for your [...] care for yourself at home? Take an ilmi-agt-gtmyurl pain medicine, such as acetaminophen (Tylenol), ibuprofen (Advil, Motrin),or naproxen (Aleve). Read and follow all instructions on the label. If the doctor prescribed antibiotics, take them as directed. Do not stop taking them just because you feel better. You need to take the full course of antibiotics. Be careful when taking munf-tog-rlzsslc cold or flu medicines and Tylenol at [...] Where can you learn more? Go to http://www.[employer].[facility].edu/patiented. Enter I933 in the search box to learn more about 'Sinusitis: Care Instructions.' Interested in seeing a video go to https://[employer].edu/videolibrary to see all video content. Current as of: November 21, 2020 Content Version: 13.1 [employer]. Care instructions adapted under license by your healthcare professional. If you have questions about a medical condition or this instruction, always ask your healthcare professional. [employer] disclaims any warranty or liability for your use of this information. documented in this [facility]02-01-2019 History of Present illness Narrative* Irene Lopez is a pleasant 45- yo female self-referred to the [facility] for surgical consultation for risk reducing [...] Maternal half-niece with cervical cancer at 19-20. [facility] [address] Work Phone: 1(862) 956-383202-01-2019 History of Present illness Narrative* Irene Lopez is a pleasant 45- yo female self-referred to the [facility] for surgical consultation for risk reducing [...] Maternal half-niece with cervical cancer at 19-20. [facility] Work Phone: [phone]) 957-827110-22-2017 History of Present illness NarrativeIs thatPatient is [...] sent to pathology to rule out malignancy [employer] Work Phone: chief complaint Narrative - ReportedPatient is here for colp procedure. Vaginal pap showed LGSIL. Patient had OSCAR due to uterine fibroids.[employer] Work Phone: consult note Author Bro Son [facility] January 23, 2023 3:34pm Note Date/Time January 23, 2023 3:34pm [facility] Medical Records Department [address] [place] [address] Counseling Note - Pharmacy 01/23/23 1532 MR#: [id number] Acct: [id number] Name: IRENE LOPEZ Rep #:[id number] : 1975 47 From: Bro Son PCP: Dr. Amanda Osborne MD Statu s:ADM ALEX Y Location: [place] [address] Pharmacy [facility] Service has performed discharge medication reconciliation [...] was counselled on new medications by pharmacy affairs assistant Bj. Medications at Discharge Home Medications ibuprofen [...] 01/23/23 01/23/23 1534 <Electronically signed by Bro elena> Date _ Bro Son Cosigner Signature (if applicable): Date CC: ~ Signed [facility] Work Phone: Discharge summary Author Rachel Beard [facility] April 14, 2022 4:54pm Note Date/Time April 14, 2022 4 :40pm [facility] Medical Records Department [address] [place] [id number] Instructions for Home/Discharge Instructions 04/14/22 1636 MR#: [id number] Acct: [id number] Name: IRENE LOPEZ Rep #:[id number] : 1975 46 From: Rachel gibson SENIOR PHARMACY TECHNICIAN SENIOR PHARMACY TECHNICIAN-C PCP: Dr. Amanda Osborne MD Statu s:ADM [...] MD When: Thursday04/15/22 at 4:00 pm at [facility] [phone]. Test Results: Test results from this visit [...] can be placed): Home, Self Care 04/14/22 1654<Electronically signed by Rachel Beard SENIOR PHARMACY TECHNICIAN SENIOR PHARMACY TECHNICIAN-C>Rachel Beard NP SENIOR PHARMACY TECHNICIAN-C CC: Dr. 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 [facility] Work Phone: Evaluation note* Diagnosis Onset Date [...] 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 [facility] Work Phone: Evaluation note* Diagnosis Onset Date [...] of bilateral oophorectomy chronic Monoallelic mutation of DESIY gene chronic Ptosis of both breasts chron [...] epidermidis infection acute Nonhealing surgical wound ac [place] Other complications of skin graft (allograft) (autograft) [...] epidermidis infection acute Nonhealing surgical wound ac [place] Other complications of skin graft (allograft) (autograft) [...] epidermidis infection acute Nonhealing surgical wound ac [place] Other complications of skin graft (allograft) (autograft) [...] breast implants acute Nonhealing surgical wound ac [place] Other complications of skin graft (allograft) (autograft) [...] epidermidis infection acute Nonhealing surgical wound ac [place] Other complications of skin graft (allograft) (autograft) acute Status post bilateral breast reconstruction acute Status post bilateral mastectomy acute Cancer phobia chronic Family history of breast cancer chronic Former smoker chronic 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 removal c hronic Ptosis of both breasts chron ic [facility] Work Phone: Evaluation note* Diagnosis Onset Date [...] epidermidis infection acute Nonhealing surgical wound ac [place] Other complications of skin graft (allograft) (autograft) [...] epidermidis infection acute Nonhealing surgical wound ac [place] Other complications of skin graft (allograft) (autograft) [...] epidermidis infection acute Nonhealing surgical wound ac [place] Other complications of skin graft (allograft) (autograft) [...] breast implants acute Nonhealing surgical wound ac [place] Other complications of skin graft (allograft) (autograft) [...] epidermidis infection acute Nonhealing surgical wound ac [place] Other complications of skin graft (allograft) (autograft) [...] epidermidis infection acute Nonhealing surgical wound ac [place] Other complications of skin graft (allograft) (autograft) acute Status post bilateral mastectomy acute Cancer phobia chronic Family history of breast cancer chronic Former smoker chronic 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 [facility] Work Phone: Evaluation note* Diagnosis Onset Date Resolution Status 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 Disproportion of reconstructed breast acute Exposed breast implant acute History of bilateral breast implants acute Infection of breast implant acute 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 Nonhealing surgical wound ac [place] Other complications of skin graft (allograft) (autograft) [...] epidermidis infection acute Nonhealing surgical wound ac [place] Other complications of skin graft (allograft) (autograft) [...] epidermidis infection acute Nonhealing surgical wound ac [place] Other complications of skin graft (allograft) (autograft) [...] epidermidis infection acute Nonhealing surgical wound ac [place] Other complications of skin graft (allograft) (autograft) [...] post implant removal from both breasts chronic [facility] Work Phone: Evaluation note* Diagnosis Onset Date Resolution Status 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 Disproportion of reconstructed breast acute Exposed breast implant acute Fungal skin infection acute History of bilateral breast implants acute History of reconstruction of both breasts acute Infection of breast implant acute 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 Nonhealing surgical wound ac [place] Other complications of skin graft (allograft) (autograft) [...] epidermidis infection acute Nonhealing surgical wound ac [place] Other complications of skin graft (allograft) (autograft) [...] post implant removal from both breasts chronic [facility] Work Phone: Evaluation note* Diagnosis Onset Date Resolution Status 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 Disproportion of reconstructed breast acute 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 Cancer phobia chronic Family history of breast cancer chronic Former smoker chronic 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 of prophylactic mastectomy of both breasts chronic Monoallelic mutation of DIESY gene chronic Resistance to other single specified [...] Resistance to other single specified antibiotic chronic [facility] Work Phone: Evaluation note* Diagnosis Vaginal Pap smear Special screening for malignant neoplasms, vagina Vaginal Pap smear with LGSIL Papanicolaou smear of vagina with low grade squamous intraepithelial lesion (LGSIL) documented in this encounter [facility] Work Phone: Evaluation note* Diagnosis Left leg swelling- Primary Esophagitis, unspecified without bleeding Herpes Herpes simplex without mention of complication Migraine without status migrainosus, not intractable, unspecified migraine type documented in this encounter [facility] Work Phone: Evaluation note* Diagnosis Cutaneous abscess of left axilla- Primary documented in this encounter [facility] Work Phone: Evaluation note* Diagnosis History of prophylactic mastectomy of both breasts- Primary Preop examination Unspecified pre-operative examination Migraine without status migrainosus, not intractable, unspecified migraine type Gastroesophageal reflux disease without esophagitis Esophageal reflux Herpes Herpes simplex without mention of complication documented in this encounter [facility] Work Phone: Evaluation note* Diagnosis Vaginal Pap smear Special screening for malignant neoplasms, vagina Encounter for gynecological examination without abnormal finding documented in this encounter [facility] Work Phone: Evaluation note* Diagnosis Preop examination- Primary Unspecified pre-operative examination Gastroesophageal reflux disease, unspecified whether esophagitis present Migraine without status migrainosus, not intractable, unspecified migraine type Herpes Herpes simplex without mention of complication History of prophylactic mastectomy of both breasts documented in this encounter [facility] Work Phone: Evaluation note* Diagnosis Obesity (BMI 30-39.9)- Primary documented in this encounter [facility] Work Phone: History of Present illness NarrativeHere for routine f/u migraines. She states that she is doing well, no specific concerns at this time.[facility] Work Phone: History of Present illness NarrativePatient presents for colposcopy due to mild dysplasia noted on recent Pap smear. Patient had previous hysterectomy.[address] Work Phone: Hospital Discharge instructions Additional Instructions [facility]?: [facility]: Reason for referral (narrative)No reason for referral information availableWFirelands Regional [facility] Work Phone: Summary Purpose Family History No [...] female breast: Paternal Grandmother, Paternal Aunt Comments:Aunt [id number] of o nset age; Status:Active Aneurysm: Uncle [...] female breast: Paternal Grandmother, Paternal Aunt Comments:Aunt [id number] of o nset age; Status:Active Unknown Family Member Name Dates Details Family history of migraine h eadaches: Mother, Sister, Grandparent(V17.2, Z82.0) Status:Active Family history of diabetes m ellitus: Father(V18.0, Z83.3) Comments:Diabetes Mellitus T ype 2; Status:Active Family history of hypertensi on: Father(V17.49, Z82.49) Status:Active Aneurysm: Uncle Status:Active Primary malignant neoplasm o f female breast: Paternal Grandmother, Paternal Aunt Comments:Aunt [id number] of o nset age; Status:Active Unknown Family Member Name Dates Details Family history of migraine h eadaches: Mother, Sister, Grandparent(V17.2, Z82.0) Status:Active Family history of diabetes m ellitus: Father(V18.0, Z83.3) Comments:Diabetes Mellitus T ype 2; Status:Active Family history of hypertensi on: Father(V17.49, Z82.49) Status:Active Aneurysm: Uncle Status:Active Primary malignant neoplasm o f female breast: Paternal Grandmother, Paternal Aunt Comments:Aunt u3Vkygplw of o nset age; Status:Active Unknown Family Member Name Dates Details Family history of migraine h eadaches: Mother, Sister, Grandparent(V17.2, Z82.0) Status:Active Family history of diabetes m ellitus: Father(V18.0, Z83.3) Comments:Diabetes Mellitus T ype 2; Status:Active Family history of hypertensi on: Father(V17.49, Z82.49) Status:Active Aneurysm: Uncle Status:Active Primary malignant neoplasm o f female breast: Paternal Grandmother, Paternal Aunt Comments:Aunt l0Kmgltrz of o nset age; Status:Active Unknown Family Member Name Dates Details Family history of migraine h eadaches: Mother, Sister, Grandparent(V17.2, Z82.0) Status:Active Family history of diabetes m ellitus: Father(V18.0, Z83.3) Comments:Diabetes Mellitus T ype 2; Status:Active Family history of hypertensi on: Father(V17.49, Z82.49) Status:Active Aneurysm: Uncle Status:Active Primary malignant neoplasm o f female breast: Paternal Grandmother, Paternal Aunt Comments:Aunt n1Nwdwmgp of o nset age; Status:Active Unknown Family Member Name Dates Details Family history of migraine h eadaches: Mother, Sister, Grandparent(V17.2, Z82.0) Status:Active Family history of diabetes m ellitus: Father(V18.0, Z83.3) Comments:Diabetes Mellitus T ype 2; Status:Active Family history of hypertensi on: Father(V17.49, Z82.49) Status:Active Aneurysm: Uncle Status:Active Primary malignant neoplasm o f female breast: Paternal Grandmother, Paternal Aunt Comments:Aunt b3Rnpbwhx of o nset age; Status:Active Unknown Family Member Name Dates Details Family history of diabetes m ellitus: Father(V18.0, Z83.3) Comments:Diabetes Mellitus T ype 2; Status:Active Family history of migraine h eadaches: Mother, Sister, Grandparent(V17.2, Z82.0) Status:Active Family history of hypertensi on: Father(V17.49, Z82.49) Status:Active Aneurysm: Uncle Status:Active Primary malignant neoplasm o f female breast: Paternal Grandmother, Paternal Aunt Comments:Aunt [id number] of o nset age; Status:Active Unknown Family Member Name Dates Details Family history of diabetes m ellitus: Father(V18.0, Z83.3) Comments:Diabetes Mellitus T ype 2; Status:Active Family history of migraine h eadaches: Mother, Sister, Grandparent(V17.2, Z82.0) Status:Active Family history of hypertensi on: Father(V17.49, Z82.49) Status:Active Aneurysm: Uncle Status:Active Primary malignant neoplasm o f female breast: Paternal Grandmother, Paternal Aunt Comments:Aunt j5Pyzjtuw of o nset age; Status:Active Unknown Family Member Name Dates Details Family history of diabetes m ellitus: Father(V18.0, Z83.3) Comments:Diabetes Mellitus T ype 2; Status:Active Family history of migraine h eadaches: Mother, Sister, Grandparent(V17.2, Z82.0) Status:Active Family history of hypertensi on: Father(V17.49, Z82.49) Status:Active Aneurysm: Uncle Status:Active Primary malignant neoplasm o f female breast: Paternal Grandmother, Paternal Aunt Comments:Aunt [id number] of o nset age; Status:Active Relationship Condition [...] female breast: Paternal Grandmother, Paternal Aunt Comments:Aunt x2Ekgcmne of o nset age; Status:Active Unknown Family Member Name Dates Details Family history of migraine h eadaches: Mother, Sister, Grandparent(V17.2, Z82.0) Status:Active Family history of diabetes m ellitus: Father(V18.0, Z83.3) Comments:Diabetes Mellitus T ype 2; Status:Active Family history of hypertensi on: Father(V17.49, Z82.49) Status:Active Aneurysm: Uncle Status:Active Primary malignant neoplasm o f female breast: Paternal Grandmother, Paternal Aunt Comments:Aunt q1Epvvlcq of o nset age; Status:Active Advance Directives No Advanced Directives Records Found Advance Directive Response Recorded Date/ Time Living Will No March 28 9:12am Power of Spinning Lathe Operator Hydraulic No March 28, 2022 9:12am Advance Directive Response Recorded Date/ Time Living Will No May 30, 2022 4:49pm Power of Spinning Lathe Operator Hydraulic No May 30 4:49pm Advance Directive Response Recorded Date/ Time Living Will No June 10, 2022 2:59pm Power of Spinning Lathe Operator Hydraulic No June 10 2:59pm Advance Directive Response Recorded Date/ Time Living Will No October 03, 2022 3:13pm Power of Spinning Lathe Operator Hydraulic No October 03 3:13pm Advance Directive Response Recorded Date/ Time Living Will No January 21 6:24pm Power of Spinning Lathe Operator Hydraulic No January 21, 2023 6:24pm Advance Directive Response Recorded Date/ Time Living Will No March 31 9:33pm Do you have a Healthcare Power of Spinning Lathe Operator Hydraulic? No March 31, 2024 9:33pm Advance Directive Response Recorded Date/ Time Do you have a Healthcare Power of Spinning Lathe Operator Hydraulic? No August 03, 2024 3:06pm Chief Complaint Med refillsPatient presents today stating she has a boil in her groin area that will pop and then come back. Patient would like to discuss how to get rid of this boil. lmp hysterSelf referred for discussion of risk reducing bilateral mastectomiesSelf referred for discussion of risk reducing bilateral mastectomies ckup, ER f/u, [facility] 03/01/22, states infection to throat, but was not told what kind of infection, states today she has nasal congestion, yellow drainage, cough, x2 teeth extracted 01/29/22.ckup, ER f/u, [facility] 03/01/22, states infection to throat, but was [...] prior to sx BILATERAL BREAST RECONSTRUCTION [employer] Reason for Visit Acquired absence of bilateral [...] prior to sx BILATERAL BREAST RECONSTRUCTION [employer] DR[employer] BILATERAL BREAST RECONSTRUCTION [employer] DR[employer] BILATERAL BREAST RECONSTRUCTION [employer] 1st post op Post Op Post Op [...] mastectomy of both breasts Monoallelic mutation of DIESY gene Resistance to other single specified antibiotic [...] Chief Complaint BILATERAL BREAST REC ONSTRUCTION [employer] DR[employer] BILATERAL BREAST RECONSTRUCTION [employer] DR[employer] BILATERAL BREAST RECONSTRUCTION [employer] 1st post op Post Op Post Op [...] 31, 2024 8:00pm Deformity of reconstructed breast Maruar y 2024 8:00pm History of prophylactic mastectomy [...] 2024 2:51pm Fat necrosis (segmental) of breast 2024 8:19am Seroma May 03, 2024 8:19am Fat necrosis (segmental) of breast [facility]2024 1:30pm Fat necrosis (segmental) of breast [facility]2024 3:22pm History of reconstruction of both breast s May 10, 2024 3:22pm Seroma May 10, 2024 3:22pm History of prophylactic mastectomy of nguyen th breasts May 10, 2024 3:22pm Status post implant removal from both easts May 10, 2024 3:22pm History of [...] 30, 2024 3:17pm Deformity of reconstructed breast Maruar y 2024 3:17pm History of reconstruction of [...] 2024 2:51pm Fat necrosis (segmental) of breast 2024 8:19am Seroma May 03, 2024 8:19am Fat necrosis (segmental) of breast 2024 1:30pm Fat necrosis (segmental) of breast 2024 3:22pm History of reconstruction of both [...] breast reconstruct ion July 07, 2024 2:59pm Chief Complaint Admit Date 1 W F/U April 19, 2024 4 [...] W FU July 28, 2024 2:59p m Revision breast reconstruction including fat graft August 17, 2024 6:00am Revision breast reconstruction including fat graft August 17, 2024 6:35am Reason for Visit Admit Date History of reconstruction of both breast s April 19, 2024 4:00pm History of reconstruction of both breast s April 26, 2024 2:51pm Fat necrosis (segmental) of breast 2024 8:19am Seroma May 03, 2024 8:19am Fat necrosis (segmental) of breast 2024 1:30pm Fat necrosis (segmental) of breast 2024 3:22pm History of reconstruction of both [...] breast reconstruct ion July 07, 2024 2:59pm Status post bilateral breast reconstruct ion July 28, 2024 2:59pm History of reconstruction of both breast s August 17, 2024 6:00am Chief Complaint Admit Date 1 W F/U April 26, 2024 2:51pm [...] W FU July 28, 2024 2:59p m Revision breast reconstruction including fat graft August 17, 2024 6:00am Revision breast reconstruction including fat graft August 17, 2024 6:35am POST OP August 19, 2024 8:18a m Reason for Visit Admit Date History of reconstruction of both breast s April 26, 2024 2:51pm Fat necrosis (segmental) of breast 2024 8:19am Seroma May 03, 2024 8:19am Fat necrosis (segmental) of breast 2024 1:30pm Fat necrosis (segmental) of breast 2024 3:22pm History of reconstruction of both breast s May 10, 2024 3:22pm Seroma May 10, 2024 3:22pm History of prophylactic mastectomy of nguyen th breasts May 10, 2024 3:22pm Status post implant removal from both [facility] May 10, 2024 3:22pm History of reconstruction of both breast s June 06, 2024 8:45am 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 June 06, 2024 8:45am 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 June 20, 2024 8:11am Status post bilateral breast reconstruct ion July 07, 2024 2:59pm Status post bilateral breast reconstruct ion July 28, 2024 2:59pm History of reconstruction of both breast s August 17, 2024 6:00am Chief Complaint Admit Date INCISION CHECK May 03, 2024 8:19am 1 [...] W FU July 28, 2024 2:59p m Revision breast reconstruction including fat graft August 17, 2024 6:00am Revision breast reconstruction including fat graft August 17, 2024 6:35am POST OP August 19, 2024 8:18a m 1 W FU August 25, 2024 9:54 am Reason for Visit Admit Date Fat necrosis (segmental) of breast Febru 2024 8:19am Seroma May 03, 2024 8:19am Fat necrosis (segmental) of breast 2024 1:30pm Fat necrosis (segmental) of breast 2024 3:22pm History of reconstruction of both breast s May 10, 2024 3:22pm Seroma May 10, 2024 3:22pm History of prophylactic mastectomy of nguyen th breasts May 10, 2024 3:22pm Status post implant removal from both [facility] May 10, 2024 3:22pm History of reconstruction of both breast s June 06, 2024 8:45am 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 June 06, 2024 8:45am 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 June 20, 2024 8:11am Status post bilateral breast reconstruct ion July 07, 2024 2:59pm Status post bilateral breast reconstruct ion July 28, 2024 2:59pm History of reconstruction of both breast s August 17, 2024 6:00am History of reconstruction of both breast s August 19, 2024 8:18am Chief Complaint Admit Date 1 W FU May 06, 2024 1:30pm [...] W FU July 28, 2024 2:59p m Revision breast reconstruction including fat graft August 17, 2024 6:00am Revision breast reconstruction including fat graft August 17, 2024 6:35am POST OP August 19, 2024 8:18a m 1 W FU August 25, 2024 9:54 am 1 W FU September 01, 2024 9:51 am Reason for Visit Admit Date Fat necrosis (segmental) of breast 2024 1:30pm Fat necrosis (segmental) of breast 2024 3:22pm History of reconstruction of both breast s May 10, 2024 3:22pm Seroma May 10, 2024 3:22pm History of prophylactic mastectomy of nguyen th breasts May 10, 2024 3:22pm Status post implant removal from both [facility] May 10, 2024 3:22pm History of reconstruction of both breast s June 06, 2024 8:45am 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 June 06, 2024 8:45am 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 June 20, 2024 8:11am Status post bilateral breast reconstruct ion July 07, 2024 2:59pm Status post bilateral breast reconstruct ion July 28, 2024 2:59pm History of reconstruction of both breast s August 17, 2024 6:00am History of reconstruction of both breast s August 19, 2024 8:18am History of reconstruction of both breast s August 25, 2024 9:54am History of reconstruction of both breast s September 01, 2024 9:51am Chief Complaint Admit Date WOUND June 20, 2024 8:11 am WOUND June 20, 2024 9:04 am FOLLOW UP July 07, 2024 2:5 9pm 3 W FU July 28, 2024 2:59p m Revision breast reconstruction including fat graft August 17, 2024 6:00am Revision breast reconstruction including fat graft August 17, 2024 6:35am POST OP August 19, 2024 8:18a m 1 W FU August 25, 2024 9:54 am 1 W FU September 01, 2024 9:51 am 1 M FU October 13, 2024 3:26 pm Reason for Visit Admit Date 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 June 20, 2024 8:11am Status post bilateral breast reconstruct ion July 07, 2024 2:59pm Status post bilateral breast reconstruct ion July 28, 2024 2:59pm History of reconstruction of both breast s August 17, 2024 6:00am History of reconstruction of both breast s August 19, 2024 8:18am History of reconstruction of both breast s August 25, 2024 9:54am History of reconstruction of both breast s September 01, 2024 9:51am Chief Complaint Admit Date FOLLOW UP July 07, 2024 2:5 9pm 3 W FU July 28, 2024 2:59p m Revision breast reconstruction including fat graft August 17, 2024 6:00am Revision breast reconstruction including fat graft August 17, 2024 6:35am POST OP August 19, 2024 8:18a m 1 W FU August 25, 2024 9:54 am 1 W FU September 01, 2024 9:51 am 1 M FU October 13, 2024 3:26 pm diastases recti- COMBO W/ RS October 8:18am Reason for Visit Admit Date Status post bilateral breast reconstruct ion July 07, 2024 2:59pm Status post bilateral breast reconstruct ion July 28, 2024 2:59pm History of reconstruction of both breast s August 17, 2024 6:00am History of reconstruction of both breast s August 19, 2024 8:18am History of reconstruction of both breast s August 25, 2024 9:54am History of reconstruction of both breast s September 01, 2024 9:51am Diastasis of rectus abdominis October 13, 2024 3:26pm History of reconstruction of both breast s October 13, 2024 3:26pm Diastasis of rectus abdominis October 8:18am Reason for Referral Specialty Diagnoses / Procedures Referred By Harvey t Referred To Contact Cardiology Diagnoses Left leg swelling Procedures Vascular US Lower Extremity Venous Duplex Left [facility] [place] [address] Referral ID Status Reason Start Date Expiration Date Visits Requested Visits Authorized [id number] Pending Review Perform Procedure 04/17/2023 04/16/2024 1 1 Additional Source Comments INFORMATION SOURCE (unrecogn ized section and content) DATE CREATED AUTHOR 09/04/2017 [facility] DATE CREATED AUTHOR AUTHOR'S ORGANIZ ATION 03/24/2018 [facility] DATE CREATED AUTHOR AUTHOR'S ORGANIZ ATION 12/15/2018 [facility] DATE CREATED AUTHOR AUTHOR'S ORGANIZ ATION 03/11/2022 [facility] DATE CREATED AUTHOR AUTHOR'S ORGANIZ ATION 03/15/2022 [facility] DATE CREATED AUTHOR AUTHOR'S ORGANIZ ATION 05/08/2022 [facility] DATE CREATED AUTHOR AUTHOR'S ORGANIZ ATION 11/05/2022 [facility] DATE CREATED AUTHOR AUTHOR'S ORGANIZ ATION 08/06/2023 [facility] DATE CREATED AUTHOR AUTHOR'S ORGANIZ ATION 03/27/2024 [facility] DATE CREATED AUTHOR AUTHOR'S ORGANIZ ATION 11/08/2024 [facility] DATE CREATED AUTHOR AUTHOR'S ORGANIZ ATION 11/19/2024 [facility] Reason for Visit (unrecogniz ed section [...] time. LMP: OSCAR. Reason Comments PREOP CONSULT Reason Comments discuss weight loss Care Teams (unrecognized sec tion and content) Chaperone Relationship Specialty Start Date End Date Amanda Osborne MD [address] [phone] PCP - General Family Medicine 03/16/21 Team [...] Provider, Re ferring Provider Active Rachel Beard SENIOR PHARMACY TECHNICIAN, SENIOR PHARMACY TECHNICIAN-C Attending Provider Active Team Status: Active Member Role Status Dates Dr. Amanda Osborne MD Primary Care Provider Act rodolfo Rachel Beard SENIOR PHARMACY TECHNICIAN, SENIOR PHARMACY TECHNICIAN-C Attending Pro vider, Referring Provider, Other Provider Active Team Status: Active Member Role Status Dates Dr. Amanda Osborne MD Primary Care Provider Act rodolfo Dr. Dustin Shore MD Attending Provider Active Rachel Beard SENIOR PHARMACY TECHNICIAN, SENIOR PHARMACY TECHNICIAN-C Referring Provider Active Team Status: Inactive Member Role Status Dates Dr. Amanda Osborne MD Primary Care Provider Act rodolfo Dr. Zenaida Barrett MD Attending Provider, Referring P rovider Active Team Status: Active Member Role Status Dates Dr. Amanda Osborne MD Primary Care Provider Act rodolfo Rachel E Kisha SENIOR PHARMACY TECHNICIAN, SENIOR PHARMACY TECHNICIAN-C Attending Provider, Referri ng Provider Active Team Status: Inactive Member Role Status Dates Dr. Amanda Osborne MD Primary Care Provider Act rodolfo Rachel E Kisha SENIOR PHARMACY TECHNICIAN, SENIOR PHARMACY TECHNICIAN-C Attending Provider, Referri ng Provider Active Team Status: Active Member Role Status Dates Dr. Amanda Osborne MD Primary Care Provider Act rodolfo Rachel E Kisha SENIOR PHARMACY TECHNICIAN, SENIOR PHARMACY TECHNICIAN-C Referring Provider, Other P rovider Active Dr. Robby Castellon MD Attending Provider Active Team Status: Active Member Role Status Dates Dr. Amanda Osborne MD Primary Care Provider Act rodolfo Rachel Elliot Beard SENIOR PHARMACY TECHNICIAN, SENIOR PHARMACY TECHNICIAN-C Referring Provider, Other P rovider Active Sarah Beth Maldonado SENIOR PHARMACY TECHNICIAN, SENIOR PHARMACY TECHNICIAN-C Attending Provider Active Team Status: Active Member Role Status Dates Dr. Amanda Osborne MD Primary Care Provider Act rodolfo Dr. Zenaida Barrett MD Attending Provide r, Referring Provider, Other Provider Active Team Status: Active Member Role Status Dates Dr. Amanda Osborne MD Primary Care Provider Act rodolfo Rachel Elliot Beard SENIOR PHARMACY TECHNICIAN, SENIOR PHARMACY TECHNICIAN-C Referring Provider, Other P rovider Active Soco T[place]on SENIOR PHARMACY TECHNICIAN, SENIOR PHARMACY TECHNICIAN-C Attending Provider Active Team Status: Inactive Member [...] Care Provider Act rodolfo Rachel E Kisha SENIOR PHARMACY TECHNICIAN, SENIOR PHARMACY TECHNICIAN-C Attending Provider Active Team Status: Active Member Role Status Dates Dr. Amanda Osborne MD Primary Care Provider Act rodolfo Dr. Zenaida Barrett MD Admit Provider, R eferring Provider, Other Provider Active Rachel Beard SENIOR PHARMACY TECHNICIAN, SENIOR PHARMACY TECHNICIAN-C Attending Provider Active [place] Relationship Specialty Start Date End Date Amanda Osborne MD [address] [facility] [place] [address] PCP - General 12/14/18 Amanda Osborne MD [address] [facility] [place] [address] PCP - [facility] PCP 05/14/22 Chaperone Relationship Specialty Start Date End Date Amanda Osborne MD [address] [place] [address] PCP - General 12/14/18 Amanda Osborne MD [address] [place] [address] PCP - [facility] PCP 05/14/22 Chaperone Relationship Specialty Start Date End Date Amanda Osborne MD [address] [facility] [place] [address] PCP - General 12/14/18 Amanda Osborne MD [address] [facility] [place] [address] PCP - [facility] PCP 05/14/22 Chaperone Relationship Specialty Start Date End Date Amanda Osborne MD [address] [place] [address] PCP - General 12/14/18 Amanda Osborne MD [address] [address] PCP - [facility] PCP 05/14/22 Chaperone Relationship Specialty Start Date End Date Amanda Osborne MD [address] [address] PCP - General 12/14/18 Amanda Osborne MD [address] [address] PCP - [facility] PCP 05/14/22 Chaperone Relationship Specialty Start Date End Date Amanda Osborne MD [address] [address] PCP - General 12/14/18 Amanda Osborne MD [address] [address] PCP - [facility] PCP 05/14/22 Team Status: Inactive Member [...] 2024 End: April 11, 2024 Rachel Beard SENIOR PHARMACY TECHNICIAN, SENIOR PHARMACY TECHNICIAN-C Attending Provider Active Start: April 11, 2024 End: April 11, 2024 Team Status: Inactive Member Role Status Dates Dr. Amanda Osborne MD Primary Care Provider Act rodolfo Start: April 19, 2024 End: April 19, 2024 Dr. Amanda Osborne MD Referring Provider Active Start: April 19, 2024 End: April 19, 2024 Rachel Beard SENIOR PHARMACY TECHNICIAN, SENIOR PHARMACY TECHNICIAN-C Attending Provider Active Start: April 19, 2024 End: April 19, 2024 Team Status: Inactive Member Role Status Dates Dr. Amanda Osborne MD Primary Care Provider Act rodolfo Start: April 26, 2024 End: April 26, 2024 Dr. Amanda Osborne MD Referring Provider Active Start: April 26, 2024 End: April 26, 2024 Rachel Beard SENIOR PHARMACY TECHNICIAN, SENIOR PHARMACY TECHNICIAN-C Attending Provider Active Start: April 26, 2024 [...] 2024 End: May 10, 2024 Rachel Beard SENIOR PHARMACY TECHNICIAN, SENIOR PHARMACY TECHNICIAN-C Attending Provider Active Start: May 10, 2024 End: May 10, 2024 Team Status: Active Member Role Status Dates Dr. Amanda Osborne MD Primary Care Provider Act rodolfo Start: May 16, 2024 Dr. Marlon Allen MD Attending Provider Active Start: May 16, 2024 Dr. Marlon Allen MD Other Provider Active Star t: May 16, 2024 Rachel Beard SENIOR PHARMACY TECHNICIAN, SENIOR PHARMACY TECHNICIAN-C Referring Provider Active Start: May 16, 2024 Team Status: Active Member Role Status Dates Dr. Amanda Osborne MD Primary Care Provider Act rodolfo Start: May 23, 2024 Dr. Marlon Allen MD Attending Provider Active Start: May 23, 2024 Dr. Marlon Allen MD Other Provider Active Star t: May 23, 2024 Rachel Beard SENIOR PHARMACY TECHNICIAN, SENIOR PHARMACY TECHNICIAN-C Referring Provider Active Start: May 23, 2024 Team Status: Active Member Role Status Dates Dr. Amanda Osborne MD Primary Care Provider Act rodolfo Start: June 06, 2024 Dr. Marlon Allen MD Attending Provider Active Start: June 06, 2024 Dr. Marlon Allen MD Other Provider Active Star t: June 06, 2024 Rachel Beard SENIOR PHARMACY TECHNICIAN, SENIOR PHARMACY TECHNICIAN-C Referring Provider Active Start: June 06, 2024 Team Status: Inactive Member Role Status Dates Dr. Amanda Osborne MD Primary Care Provider Act rodolfo Start: June 06, 2024 End: June 13, 2024 Dr. Marlon Allen MD Attending Provider Active Start: June 06, 2024 End: June 13, 2024 Rachel Beard SENIOR PHARMACY TECHNICIAN, SENIOR PHARMACY TECHNICIAN-C Referring Provider Active Start: June 06, 2024 End: June 13, 2024 Team Status: Inactive Member Role Status Dates Dr. Amanda Osborne MD Primary Care Provider Act rodolfo Start: June 20, 2024 End: July 13, 2024 Dr. Marlon Allen MD Attending Provider Active Start: June 20, 2024 End: July 13, 2024 Rachel Beard SENIOR PHARMACY TECHNICIAN, SENIOR PHARMACY TECHNICIAN-C Referring Provider Active Start: June 20, 2024 End: July 13, 2024 Team Status: Active Member Role Status Dates Dr. Amanda Osborne MD Primary Care Provider Act rodolfo Start: June 20, 2024 Dr. Marlon Allen MD Attending Provider Active Start: June 20, 2024 Dr. Marlon Allen MD Other Provider Active Star t: June 20, 2024 Rachel Beard SENIOR PHARMACY TECHNICIAN, SENIOR PHARMACY TECHNICIAN-C Referring Provider Active Start: June 20, 2024 Team Status: Inactive Member Role Status Dates Dr. Amanda Osborne MD Primary Care Provider Act rodolfo Start: July 07, 2024 End: July 07, 2024 Dr. Amanda Osborne MD Referring Provider Active Start: July 07, 2024 End: July 07, 2024 Dr. Marlon Allen MD Attending Provider Active Start: July 07, [...] July 28, 2024 End: July 28, 2024 Team Status: Inactive Member Role Status Dates Dr. Amanda Osborne MD Primary Care Provider Act rodolfo Start: August 17, 2024 End: August 17, 2024 Dr. Marlon Allen MD Attending Provider Active Start: August 17, 2024 End: August 17, 2024 Dr. Marlon Allen MD Referring Provider Active Start: August 17, 2024 End: August 17, 2024 Team Status: Active Member Role Status Dates Dr. Amanda Osborne MD Primary Care Provider Act rodolfo Start: August 17, 2024 Dr. Marlon Allen MD Attending Provider Active Start: August 17, 2024 Dr. Marlon Allen MD Referring Provider Active Start: August 17, 2024 Dr. Marlon Allen MD Other Provider Active Star t: August 17, 2024 Team Status: Inactive Member Role Status Dates Dr. Amanda Osborne MD Primary Care Provider Act rodolfo Start: August 19, 2024 End: August 19, 2024 Dr. Amanda Osborne MD Referring Provider Active Start: August 19, 2024 End: August 19, 2024 Dr. Marlon Allen MD Attending Provider Active Start: August 19, 2024 End: August 19, 2024 Team Status: Inactive Member Role Status Dates Dr. Amanda Osborne MD Primary Care Provider Act rodolfo Start: August 25, 2024 End: August 25, 2024 Dr. Amanda Osborne MD Referring Provider Active Start: August 25, 2024 End: August 25, 2024 Dr. Marlon Allen MD Attending Provider Active Start: August 25, 2024 End: August 25, 2024 Team Status: Inactive Member Role Status Dates Dr. Amanda Osborne MD Primary Care Provider Act rodolfo Start: September 01, 2024 End: September 01, 2024 Dr. Amanda Osborne MD Referring Provider Active Start: September 01, 2024 End: September 01, 2024 Dr. Marlon Allen MD Attending Provider Active Start: September 01, 2024 End: September 01, 2024 Team Status: Active Member Role/Relationship Status Dates Dr. Amanda Osborne MD Primary Care Provider Act rodolfo Team Status: Inactive Member Role/Relationship Status Dates Dr. Amanda Osborne MD Primary Care Provider Act rodolfo Start: June 20, 2024 End: July 13, 2024 Dr. Marlon Allen MD Attending Provider Active Start: June 20, 2024 End: July 13, 2024 Rachel Beard SENIOR PHARMACY TECHNICIAN, SENIOR PHARMACY TECHNICIAN-C Referring Provider Active Start: June 20, 2024 End: July 13, 2024 Team Status: Active Member Role/Relationship Status Dates Dr. Amanda Osborne MD Primary Care Provider Act rodolfo Start: June 20, 2024 Dr. Marlon Allen MD Attending Provider Active Start: June 20, 2024 Dr. Marlon Allen MD Other Provider Active Star t: June 20, 2024 Rachel Beard SENIOR PHARMACY TECHNICIAN, SENIOR PHARMACY TECHNICIAN-C Referring Provider Active Start: June 20, 2024 Team Status: Inactive Member Role/Relationship Status Dates Dr. Amanda Osborne MD Primary Care Provider Act rodolfo Start: July 07, 2024 End: July 07, 2024 Dr. Amanda Osborne MD Referring Provider Active Start: July 07, 2024 End: July 07, 2024 Dr. Marlon Allen MD Attending Provider Active Start: July 07, 2024 End: July 07, 2024 Team Status: Inactive Member Role/Relationship Status Dates Dr. Amanda Osborne MD Primary Care Provider Act rodolfo Start: July 28, 2024 End: July 28, 2024 Dr. Amanda Osborne MD Referring Provider Active Start: July 28, 2024 End: July 28, 2024 Dr. Marlon Allen MD Attending Provider Active Start: July 28, 2024 End: July 28, 2024 Team Status: Inactive Member Role/Relationship Status Dates Dr. Amanda Osborne MD Primary Care Provider Act rodolfo Start: August 17, 2024 End: August 17, 2024 Dr. Marlon Allen MD Attending Provider Active Start: August 17, 2024 End: August 17, 2024 Dr. Marlon Allen MD Referring Provider Active Start: August 17, 2024 End: August 17, 2024 Team Status: Active Member Role/Relationship Status Dates Dr. Amanda Osborne MD Primary Care Provider Act rodolfo Start: August 17, 2024 Dr. Marlon Allen MD Attending Provider Active Start: August 17, 2024 Dr. Marlon Allen MD Referring Provider Active Start: August 17, 2024 Dr. Marlon Aleln MD Other Provider Active Star t: August 17, 2024 Team Status: Inactive Member Role/Relationship Status Dates Dr. Amanda Osborne MD Primary Care Provider Act rodolfo Start: August 19, 2024 End: August 19, 2024 Dr. Amanda Osborne MD Referring Provider Active Start: August 19, 2024 End: August 19, 2024 Dr. Marlon Allen MD Attending Provider Active Start: August 19, 2024 End: August 19, 2024 Team Status: Inactive Member Role/Relationship Status Dates Dr. Amanda Osborne MD Primary Care Provider Act rodolfo Start: August 25, 2024 End: August 25, 2024 Dr. Amanda Osborne MD Referring Provider Active Start: August 25, 2024 End: August 25, 2024 Dr. Marlon Allen MD Attending Provider Active Start: August 25, 2024 End: August 25, 2024 Team Status: Inactive Member Role/Relationship Status Dates Dr. Amanda Osborne MD Primary Care Provider Act rodolfo Start: September 01, 2024 End: September 01, 2024 Dr. Amanda Osborne MD Referring Provider Active Start: September 01, 2024 End: September 01, 2024 Dr. Marlon Allen MD Attending Provider Active Start: September 01, 2024 End: September 01, 2024 Team Status: Inactive Member Role/Relationship Status Dates Dr. Amanda Osborne MD Primary Care Provider Act rodolfo Start: October 13, 2024 End: October 13, 2024 Dr. Amanda Osborne MD Referring Provider Active Start: October 13, 2024 End: October 13, 2024 Dr. Marlon Allen MD Attending Provider Active Start: October 13, 2024 End: October 13, 2024 Team Status: Inactive Member Role/Relationship Status Dates Dr. Amanda Osborne MD Primary Care Provider Act rodolfo Start: July 07, 2024 End: July 07, 2024 Dr. Amanda Osborne MD Referring Provider Active Start: July 07, 2024 End: July 07, 2024 Dr. Marlon Allen MD Attending Provider Active Start: July 07, 2024 End: July 07, 2024 Team Status: Inactive Member Role/Relationship Status Dates Dr. Amanda Osborne MD Primary Care Provider Act rodolfo Start: July 28, 2024 End: July 28, 2024 Dr. Amanda Osborne MD Referring Provider Active Start: July 28, 2024 End: July 28, 2024 Dr. Marlon Allen MD Attending Provider Active Start: July 28, 2024 End: July 28, 2024 Team Status: Inactive Member Role/Relationship Status Dates Dr. Amanda Osborne MD Primary Care Provider Act rodolfo Start: August 17, 2024 End: August 17, 2024 Dr. Marlon Allen MD Attending Provider Active Start: August 17, 2024 End: August 17, 2024 Dr. Marlon Allen MD Referring Provider Active Start: August 17, 2024 End: August 17, 2024 Team Status: Active Member Role/Relationship Status Dates Dr. Amanda Osborne MD Primary Care Provider Act rodolfo Start: August 17, 2024 Dr. Marlon Allen MD Attending Provider Active Start: August 17, 2024 Dr. Marlon Allen MD Referring Provider Active Start: August 17, 2024 Dr. Marlon Allen MD Other Provider Active Star t: August 17, 2024 Team Status: Inactive Member Role/Relationship Status Dates Dr. Amanda Osborne MD Primary Care Provider Act rodolfo Start: August 19, 2024 End: August 19, 2024 Dr. Amanda Osborne MD Referring Provider Active Start: August 19, 2024 End: August 19, 2024 Dr. Marlon Allen MD Attending Provider Active Start: August 19, 2024 End: August 19, 2024 Team Status: Inactive Member Role/Relationship Status Dates Dr. Amanda Osborne MD Primary Care Provider Act rodolfo Start: August 25, 2024 End: August 25, 2024 Dr. Amanda Osborne MD Referring Provider Active Start: August 25, 2024 End: August 25, 2024 Dr. Marlon Allen MD Attending Provider Active Start: August 25, 2024 End: August 25, 2024 Team Status: Inactive Member Role/Relationship Status Dates Dr. Amanda Osborne MD Primary Care Provider Act rodolfo Start: September 01, 2024 End: September 01, 2024 Dr. Amanda Osborne MD Referring Provider Active Start: September 01, 2024 End: September 01, 2024 Dr. Marlon Allen MD Attending Provider Active Start: September 01, 2024 End: September 01, 2024 Team Status: Inactive Member Role/Relationship Status Dates Dr. Amanda Osborne MD Primary Care Provider Act rodolfo Start: October 13, 2024 End: October 13, 2024 Dr. Amanda Osborne MD Referring Provider Active Start: October 13, 2024 End: October 13, 2024 Dr. Marlon Allen MD Attending Provider Active Start: October 13, 2024 End: October 13, 2024 Team Status: Inactive Member Role/Relationship Status Dates Dr. Amanda Osborne MD Primary Care Provider Act rodolfo Start: November 03, 2024 End: November 03, 2024 Dr. Mario Turcios MD Attending Provider Active Start: November 03, 2024 End: November 03, 2024 Dr. Marlon Allen MD Referring Provider Active Start: November 03, 2024 End: November 03, 2024 Chaperone Relationship Specialty Start Date End Date Amanda Osborne MD [address] [place] [address] PCP - General 12/14/18 Amanda Osborne MD [address] [address] PCP - [facility] A[facility] PCP 05/14/22 <item><item> Privacy Markings (unrecogniz ed [...] BE BASED ON THE PRIMARY CLINICAL RECORDS. [facility]. provides no warranty or guarantee of the accuracy or completeness of information in this document.
== END | disposition home or self-care (01) ==
LOC: CT 06:35
PROVIDERS: Referring Provider Surgery Plastic and Reconstructive Surgery; Visit Provider Surgery Plastic and Reconstructive Surgery
DX: K42.9 Umbilical hernia without obstruction or gangrene (principal); K76.0 Fatty (change of) liver, not elsewhere classified; R16.1 Splenomegaly, not elsewhere classified
CPT/HCPCS: 74160; Q9967

== ENCOUNTER 2024-11-23 08:01 | Observation (INO) | payer BC, SELFPAY ==
[2024-11-23] VITALS (17 sets, daily range): BP systolic 110–133; BP diastolic 54–71; PULSE 59–90; RESP 14–17; TEMP 36.1–37.1; O2SAT 87–97; BMI 30.4
--- OUTSIDE RECORDS SUMMARY | 2024-11-23 05:52 | XMS RPT_ITS | CCD ---
Author Organization [facility] CliniSysd Care Team Providers Care Application Packager Name Role Phone REBEKA HE Unavailable Unavailable [...] Primary Care Dr. Zenaida Shaffer Attending Provider [phone] Dr. Zenaida Barrett Referring Provider [phone] Dr. Zenaida Barrett Other Provider Dr. Amanda Osborne Primary Care Provider Dr. Zenaida Barrett Admit Provider Dr. Amanda Osborne Referring Provider Kisha SOCIAL SERVICES COUNSELOR, SRIDEVI-C Rachel E Attending Provider [phone] Kisha SOCIAL SERVICES COUNSELOR, SOCIAL SERVICES COUNSELOR-C Rachel E Referring Provider Kisha SOCIAL SERVICES COUNSELOR, SOCIAL SERVICES COUNSELOR-C Rachel E Other Provider [phone] Dr. Dustin Shore Attending Provider Dr. Zenaida Barrett Attending Provider [phone] Arnold, Dr. Zenaida Blair Attending Provider [phone] Arnold, Dr. Zenaida Blair Referring Provider [phone] Arnold, Dr. Zenaida Blair Other Provider Dr. Amanda Osborne Primary Care Provider Arnold, Dr. Zenaida Blair Admit Provider [phone] [place], Dr. Patel Referring Provider Kisha SOCIAL SERVICES COUNSELOR, SOCIAL SERVICES COUNSELOR-C Rachel E Attending Provider Kisha SOCIAL SERVICES COUNSELOR, SOCIAL SERVICES COUNSELOR-C Rachel E Referring Provider [phone] Kisha SOCIAL SERVICES COUNSELOR, SOCIAL SERVICES COUNSELOR-C Rachel E Other Provider [phone] Dr. Dustin Shore Attending Provider [phone] Dr. Robby Castellon Attending Provider Maldonado SOCIAL SERVICES COUNSELOR, SOCIAL SERVICES COUNSELOR-C Sarah Beth Attending Provider Dr. Amanda Osborne Primary Care Provider Dr. Amanda Osborne Referring Provider Dr. Zenaida Barrett Attending Provider Iksha SOCIAL SERVICES COUNSELOR, SOCIAL SERVICES COUNSELOR-C Rachel E Attending Provider [phone] Dr. Amanda Osborne Primary Care Provider Dr. Amanda Osborne Referring Provider Dr. Zenaida Barrett Attending Provider [phone] Arnold, Dr. Zenaida Blair Admit Provider [phone] Zenaida Barrett Referring Provider [phone] ramos Other Provider MD AMANDA OSBORNE Attending Monica MD AMANDA Cuevas Referring Monica austinilaMD AMANDA Aguilar Primary Care Monica vailable MD ZENAIDA SILVA Attending Unavail able MD ZENAIDA SILVA Referring Unavail able MD AMANDA OSBORNE Primary Care Monica raulble MD ZENAIDA SILVA Attending Unavail able MD AMANDA OSBORNE Primary Care Monica vailable MD ZENAIDA SILVA Attending Unavail able MD AMANDA OSBORNE Primary Care Monica MD AMANDA Cuevas Primary Care Monica vailable Malia, Ms. Irene Raeann Attending Unavai Dr. Amanda Salinas Primary Care Provider Dr. Zenaida Barrett Admit Provider Dr. Zenaida Barrett Attending Provider Dr. Zenaida Barrett Referring Provider Dr. Zenaida Barrett Other Provider Dr. Amanda Osborne Referring Provider Kisha SOCIAL SERVICES COUNSELOR, FLETCHER Zarate Attending Provider [phone] Amanda Osborne MD Primary Care Provider Amanda Osborne MD Unavailable AMANDA OSBORNE Primary Care Unavailab AB Goldberg Attending Unavailable Amanda Osborne MD Primary Care Provider Amanda Osborne MD Unavailable AMANDA OSBORNE Primary Care Unavailab Dr. Amanda Han MD Primary Care Provide r Dr. Amanda Osborne MD Referring Provider Dr. Marlon Allen MD Attending Provider Dr. Sarah Leyva MD Attending Provider Dr. Marlon Allen MD Referring Provider Tiffany ROBERTO, Dr. Mason Admit Provider Tiffany ROBERTO, Dr. Mason Other Provider Kisha SOCIAL SERVICES COUNSELOR-C, Rachel E Attending Provider Kisha SOCIAL SERVICES COUNSELOR-C, Rachel E Referring Provider [place] ROBERTO, Dr. Patel Primary Care Provide r [place] ROBERTO, Dr. Patel Referring Provider Tiffany ROBERTO, Dr. Mason Attending Provider [place] ROBERTO, Dr. Patel Primary Care Provide r [place] ROBERTO, Dr. Patel Referring Provider Kisha SOCIAL SERVICES COUNSELOR-C, Rachel E Attending Provider Tiffany ROBERTO, Dr. Mason Attending Provider Tiffany ROBERTO, Dr. Mason Other Provider Tiffany ROBERTO, Dr. Mason Referring Provider [place] ROBERTO, Dr. Patel Primary Care Provide r [place] ROBERTO, Dr. Patel Referring Provider Kisha SOCIAL SERVICES COUNSELOR-C, Rachel E Attending Provider [place] ROBERTO, Dr. Patel Primary Care Provide r [place] ROBERTO, Dr. Patel Referring Provider Kisha SOCIAL SERVICES COUNSELOR-C, Rachel Elliot Attending Provider [place] ROBERTO, Dr. Patel Primary Care Provide r [place] ROBERTO, Dr. Patel Referring Provider Tiffany ROBERTO, Dr. Mason Attending Provider [place] ROBERTO, Dr. Patel Primary Care Provide r Tiffany ROBERTO, Dr. Mason Attending Provider Kisha SOCIAL SERVICES COUNSELOR-C, Rachel E Referring Provider Dr. Marlon Allen MD Other Provider Dr. Amanda Osborne MD Referring Provider [place] ROBERTO, Dr. Patel Primary Care Provide r Dr. Marlon Allen MD Attending Provider Dr. Marlon Allen MD Other Provider Dr. Mario Turcios MD Attending Provider Amanda Osborne MD Primary Care Provider [place] ROBERTO, Amanda Blair Unavailable AMANDA OSBORNE Attending Unavailab le LONGMEGAN, AMANDA Rossy Primary Care Unavailab le [place], AMANDA Rossy Attending Unavailab le [place], AMANDA A Primary Care Unavailab ZENAIDA Eden Attending Unavailable LONGSDORF, AMANDA A Primary Care Unavailab le LONGMEGAN, AMANDA Blair Attending Unavailab le IDNIA, AMANDA A Primary Care Unavailab lázaro Osborne MD, Dr. Patel Primary Care Provide r Dr. Amanda Osborne MD Referring Provider Dr. Marlon Allen MD Attending Provider DEVYN PERSON Primary Care Provider [phone] Marlon Allen Attending Unavailable Longsdorf, Amanda Primary Care Unavailable Longsdorf, Amanda Referring Unavailable Marlon Allen Attending Unavailable Longsdorf, Amanda Primary Care Unavailable Longsdorf, Amanda Referring Unavailable Marlon Allen Referring Unavailable Marlon Allen Attending Unavailable Longsdorf, Amanda Primary Care Unavailable Marlon Allen Admitting Unavailable Marlon Allen Attending Unavailable Marlon Allen Referring Unavailable Longsdorf, Amanda Primary Care Unavailable Marlon Allen Consulting Unavailable Longsdorf, Amanda Primary Care Unavailable Marlon Allen Attending Unavailable Longsdorf, Amanda Referring Unavailable Longsdorf, Amanda Primary Care Unavailable Marlon Allen Attending Unavailable Longsdorf, Amanda Referring Unavailable Marlon Allen Attending Unavailable Marlon Allen Consulting Unavailable Longsdorf, Amanda Primary Care Unavailable Marlon Allen Admitting Unavailable Marlon Allen Referring Unavailable Marlon Allen Attending Unavailable Kisha SOCIAL SERVICES COUNSELOR, Rachel E Referring Unavailabl e Longsdorf, Amanda Primary Care Unavailable Marlon Allen Attending Unavailable Kisha SOCIAL SERVICES COUNSELOR, Rachel E Referring Unavailabl e Longsdorf, Amanda Primary Care Unavailable Kisha SOCIAL SERVICES COUNSELOR, Rachel E Attending Unavailabl e Kisha SOCIAL SERVICES COUNSELOR, Rachel E Referring Unavailabl e Longsdorf, Amanda Primary Care Unavailable Marlon Allen Attending Unavailable Kisha SOCIAL SERVICES COUNSELOR, Rachel E Referring Unavailabl e Longsdorf, Amanda [...] Amanda Referring Unavailable Marlon Allen Referring Unavailable Longsdorf, Amanda Primary Care Unavailable Mario Turcios Attending Unavailable Marlon Allen Referring Unavailable Longsdorf, Amanda Primary Care Unavailable Marlon Allen Attending Unavailable Marlon Allen Admitting Unavailable Marlon Allen Referring Unavailable Marlon Allen Attending Unavailable AMY LANIER Primary Care Unavailable Marlon Allen Attending Unavailable Marlon Allen Referring Unavailable Longsdorf, Amanda Primary Care Unavailable Longsdorf, Amanda Primary Care Unavailable Kisha SOCIAL SERVICES COUNSELOR, Rachel Zarate Attending Unavailabl e Longsdorf, Amanda Referring Unavailable Marlon Allen Attending Unavailable Longsdorf, Amanda Primary Care Unavailable Longsdorf, Amanda Referring Unavailable Kisha SOCIAL SERVICES COUNSELOR, Rachel E Attending Unavailabl e Longsdorf, Amanda Primary Care Unavailable Longsdorf, Amanda Referring Unavailable Longsdorf, Amanda Referring Unavailable Longsdorf, Amanda Primary Care Unavailable Marlon Allen Attending Unavailable Longsdorf, Amanda Referring Unavailable Longsdorf, Amanda Primary Care Unavailable Marlon Allen Attending Unavailable Marlon Allen Attending Unavailable Longsdorf, Amanda Primary Care Unavailable Longsdorf, Amanda Referring Unavailable Sarah Leyva Attending Unavailabl e Longsdorf, Amanda Primary Care Unavailable Siska, Marlon Referring Unavailable Siska, Marlon Attending Unavailable Kisha SOCIAL SERVICES COUNSELOR, Rachel E Referring Unavailabl e Siska, Marlon Consulting Unavailable Longsdorf, Amanda Primary Care Unavailable Siska, Marlon Attending Unavailable Kisha SOCIAL SERVICES COUNSELOR, Rachel E Referring Unavailabl e Siska, Marlon Consulting Unavailable Longsdorf, Amanda Primary Care Unavailable Siska, Marlon Attending Unavailable Kisha SOCIAL SERVICES COUNSELOR, Rachel E Referring Unavailabl e Siska, Marlon Consulting Unavailable Longsdorf, Amanda Primary Care Unavailable Siska, Marlon Attending Unavailable Kisha SOCIAL SERVICES COUNSELOR, Rachel E Referring Unavailabl e Longsdorf, Amanda Primary Care Unavailable Siska, Marlon Consulting Unavailable Siska, Marlon Referring Unavailable Siska, Marlon Attending Unavailable Siska, Marlon Consulting Unavailable Longsdorf, Amanda Primary Care Unavailable Siska, Marlon Admitting Unavailable Siska, Marlon Attending Unavailable Longsdorf, Amanda Primary Care Unavailable Longsdorf, Amanda Referring Unavailable Kisha SOCIAL SERVICES COUNSELOR, Rachel E Attending Unavailabl e Longsdorf, Amanda Referring Unavailable Longsdorf, Amanda Primary Care Unavailable Kisha SOCIAL SERVICES COUNSELOR, Rachel E Attending Unavailabl e Longsdorf, Amanda Referring Unavailable Longsdorf, Amanda Primary Care Unavailable Siska, Marlon Attending Unavailable Longsdorf, Amanda Primary Care Unavailable Longsdorf, Amanda Referring Unavailable Kisha SOCIAL SERVICES COUNSELOR, Rachel E Attending Unavailabl e Longsdorf, Amanda Referring Unavailable Longsdorf, Amanda Primary Care Unavailable Longsdorf, Amanda Primary Care Unavailable Siska, Marlon Attending Unavailable Longsdorf, Amanda Referring Unavailable Allergies Allergy Classification Reported Allergen(s) Allergy Type Date of Onset Reaction(s) Facility Penicillins (antibiotic) (2 sources) Penicillins; Translations: [Penicillins] Drug Allergy [facility] Work Phone: (20 sources) Penicillins; Translations: [Penicillins] Allergy to drug (finding) 2 [facility] (17 sources) Penicillins Allergy to substance 3 [facility] (6 sources) Penicillins Drug Intolerance 2 [facility] Work Phone: (1 source) Penicillins Drug Intolerance 2 [facility] (1 source) Penicillins Drug allergy (disorder) 5 [facility] Repository Medications Current Medications Medication Drug Class(es) Dates Sig (Normalized) Sig (Original) [id number] actuat albuterol 0.09 mg/actuat metered dose [...] Active calcium ascorbate 500 mg oral tablet (2 sources) Start: 11-03-2024 take 1 tablet by mouth once daily Ascorbate Calcium (Vitamin C) 500 mg tablet Active 500 mg PO daily November 03, 2024 12:00am calcium carbonate 1250 mg chewable tablet (2 sources) Start: 11-03-2024 take 1 tablet by mouth once daily Calcium Carbonate 500 mg calcium (1,250 mg) tablet,chewable Active 500 mg PO daily November 03, 2024 12:00am cefadroxil 500 mg oral capsule (3 sources) Cephalosporin Antibacterial Start: 04-14-2022 take 500 mg by mouth twice daily Cefadroxil Active 500 MG PO TWICE A DAY April 14, 2022 12:00am cholecalciferol 0.025 mg oral capsule (2 sources) Vitamin D Start: 11-03-2024 take 1 capsule [...] this medication.Take with food or milk. Magnesium (2 sources) Start: 2024 take 1 tablet by mouth once daily Magnesium 200 mg tablet Active 200 mg PO daily November 03, 2024 12:00am Multivitamin tablet (2 sources) Start: 2024 Multivitamin tablet Active 1 {tbl} PO EVERY MORNING November 03, 2024 12:00am omeprazole 40 mg delayed release oral capsule (20 sources) Proton Pump Inhibitor Start: 2021 End: 2024 take 1 capsule by mouth once daily omeprazole (PriLOSEC) [address] capsule Indications: Gastroesophageal reflux disease, unspecified whether esophagitis present Take 1 capsule (40 mg) by mouth once daily. 90 capsule 3 03/21/2024 Active ondansetron 4 mg disintegrating oral tablet (20 sources) Serotonin-3 Receptor Antagonist Start: 2024 take 1 tablet by mouth every eight hours as needed for nausea and vomiting Ondansetron 4 mg tablet,disintegrating Active 4 mg PO Q8H as needed for nausea and vomiting 10 April 03, 2024 1:00am Start: 01-23-2023 End: [...] and Serotonin-1d Receptor Agonist Start: 04-17-2023 End: 03-21-2024 take 1 tablet by mouth once SUMAtriptan (Imitrex) 100 mg tablet Indications: Migraine without status migrainosus, not intractable, unspecified migraine type Take 1 tablet (100 mg) by mouth 1 time if needed for migraine (TAKE 1 TABLET EVERY 2 HOURS NEEDED FOR MIGRAINE. DO NOT EXCEED 200 MG). 9 tablet 11 03/21/2024 Active Start: 03-28-2022 Sumatriptan Bean ccinate 100 mg tablet Active 100 mg PO NEEDED as needed for MIGRAINE March 28, 2022 1:00am valACYclovir 500 mg oral tablet (20 sources) Herpesvirus Nucleoside Analog DNA Polymerase Inhibitor, Herpes Simplex Virus Nucleoside Analog DNA Polymerase Inhibitor, Herpes Zoster Virus Nucleoside Analog DNA Polymerase Inhibitor Start: 06-13-2019 End: 03-21-2024 take 1 tablet by mouth once daily valACYclovir (Valtrex) 500 mg tablet Indications: Herpes Take 1 tablet (500 mg) by mouth once daily. 90 tablet 3 03/21/2024 Active zinc gluconate 100 mg oral tablet (2 sources) Start: 11-03-2024 take 1 tablet by mouth [...] 1 TABLET PO EVERY 6 HOURS 28 7 October 05, 2022 28 tabs (twenty-eight) Start: 06-02-2022 take 1 tablet by viola th every four hours Oxycodone-Acetaminophen (Percocet) 5-325 mg tablet Active 1 TABLET PO Q4H 40 June 02, 2022 40 tabs (forty) Start: 04-14-2022 take 1 tablet by viola th every four hours Oxycodone-Acetaminophen (Percocet) 5-325 mg tablet Active 1 TABLET PO Q4H 40 April 14, 2022 celecoxib 100 mg oral capsule (9 sources) Nonsteroidal Anti-inflammatory Drug Start: 04-03-2024 End: [...] Discontinued 300 mg PO Q8H 21 7 April 03, 2024 1:00am April 11, 2024 [...] Start: 06-02-2022 take 1 tablet by viola three times daily Diazepam (Valium) 5 mg tablet Active 5 MG PO THREE TIMES A DAY 30 June 02, 2022 12:00am 30 tabs (thirty) Start: 04-14-2022 take 1 tablet by viola twice daily Diazepam (Valium) 5 mg tablet [...] Start: 04-14-2022 take 1 capsule by mo [facility] once daily Docusate Sodium (Colace) 100 mg capsule Active 100 MG PO DAILY April 14, 2022 12:00am doxycycline hyclate 100 mg oral capsule (20 sources) Tetracycline-class Drug Start: 05-03-2024 End: 05-10-2024 take 1 capsule by mouth twice daily Doxycycline Hyclate 100 mg capsule Discontinued 100 mg PO TWICE A DAY 14 7 May 03, 2024 1:00am May 09, 2024 [...] mg PO TWICE A DAY 28 14 May 22, 2022 1:00am June 02, 2022 3:38pm fluconazole 200 mg oral tablet (12 sources) Azole Antifungal Start: 07-29-2022 End: 10-23-2022 take 2 tablets by mouth once daily Fluconazole (Diflucan) 200 mg tablet Discontinued 400 mg PO DAILY 56 28 July 29, 2022 12:00am October 23, 2022 10:20am gabapentin 100 mg oral capsule (9 sources) Anti-epileptic Agent Start: 04-03-2024 End: 08-03-2024 take 1 capsule by mouth three times daily Gabapentin (Neurontin) 100 mg capsule Discontinued 100 mg PO THREE TIMES A DAY 15 5 April 03, 2024 12:00pm August 03, 2024 3:03pm L.Acidoph,Saliva-B .Bif-S.Therm (Acidophilus Probiotic Blend) 175 mg capsule (17 sources) Start: 10-05-2022 End: 10-23-2022 take 1 [...] Refills: 0 Ordered: 02-Mar-2022 DO Start : 18-Dec-2022 Active Start: 03-02-2022 Lidocaine Visc ous 2% [...] states oxyCODONE hydrochloride 5 mg oral tablet (17 sources) Opioid Agonist Start: 08-17-2024 End: 10-13-2024 [...] problems. silver sulfADIAZINE 10 mg/ml topical cream (9 sources) Sulfonamide Antibacterial Start: 04-03-2024 End: 08-03-2024 [...] [Acute posthemorrhagic anemia] 04-12-2022 Episodic Allergic reactions (18 sources) Allergy status to penicillin; Translations: [Allergic [...] sites limited to breakdown of skin] Onset: 07-19-19 25 05-23-2024 Chronic Complications of surgical procedures or medical care (20 sources) Non-healing surgical wound; Translations: [Other complications of procedures, not elsewhere classified, initial encounter] 05-28-2022 Episodic Comment on above: bilateral breast Tzo ne areas worse on the right Conditions associated with dizziness or vertigo (1 source) Dizziness and giddiness; Translations: [Dizziness and giddiness] Onset: 03-10-20 Episodic Deficiency and other anemia (12 sources) Anemia; Translations: [Anemia, unspecified] 07-03-2022 Episodic [...] migrainosus] Onset: 01-05-2004-17-2023 Chronic Headache; including migraine (17 sources) Frequent headache; Translations: [Frequent headaches] 04-22-2021 Episodic Influenza (2 sources) Influenza 03-10-2022 Comment on above: FLU SYMPTOMS, SOB Menopausal disorders (20 sources) Menopausal symptom; Translations: [Symptomatic menopausal or female climacteric states] Chronic Mycoses (16 sources) Dermal mycosis; Translations: [Superficial mycosis, unspecified] 07-03-2022 Episodic Nausea and vomiting (20 sources) Postoperative nausea and vomiting; Translations: [Nausea with vomiting, unspecified] 04-14-2022 Episodic Nonmalignant breast conditions (20 sources) Pain of breast; Translations: [Mastodynia] Onset: 05-03-19 25 05-11-2021 Episodic Comment on above: pseudoptosis excess mastectomy sk in contour deformity lateral aspects both breasts reconstruction planned disproportio n of reconstructed breasts Other aftercare (15 sources) Surgical follow-up; Translations: [Follow-up examination, following surgery, unspecified] Episodic Other aftercare (1 source) Other correction (current) drug therapy; Translations: [Other correction (current) drug therapy] Onset: 03-10-20 Episodic Other connective tissue disease (1 source) Swelling of left lower limb; Translations: [Other specified soft tissue disorders] 04-17-2023 Episodic Other connective tissue disease (6 sources) Diastasis recti; Translations: [Separation of muscle [...] Onset: 03-10-20 Episodic Other nervous system disorders (7 sources) Carpal tunnel syndrome of left wrist; Translations: [Carpal tunnel syndrome, left upper limb] 08-17-2024 Chronic Other nervous system disorders (19 sources) Acute postoperative pain; Translations: [Other acute postprocedural pain] 04-14-2022 Episodic Other nutritional; endocrine; and metabolic disorders (2 sources) Body mass index 30+ - obesity; Translations: [Obesity, unspecified] Onset: 11-08-19 25 11-07-2024 Chronic Other and delivery including normal (20 sources) Delivery normal; Translations: [Normal delivery] Episodic Comment on above: [id number]; Other upper respiratory disease (1 source) Congestion of nasal sinus; Translations: [Nasal congestion] Episodic Other upper respiratory infections (8 sources) Acute maxillary sinusitis; Translations: [Acute maxillary sinusitis, unspecified] Onset: 03-16-19 Episodic Residual codes; unclassified (16 sources) History of bilateral breast implants; Translations: [...] prophylactic bilateral breast removal earlier in the year 2021 Residual codes; unclassified (17 sources) Bilateral acquired absence of breast; Translations: [Acquired absence of bilateral breasts and nipples] 01-11-2022 Episodic Comment on above: planned acquired abs ence bilateral breasts and nipples Residual codes; unclassified (17 sources) Procedure related finding; Translations: [Encounter for cosmetic surgery] 01-11-2022 Episodic Residual codes; unclassified (17 sources) Family history of breast cancer; Translations: [Family history of malignant neoplasm of breast] 05-11-2021 Episodic Residual codes; unclassified (17 sources) Genetic susceptibility to cancer; Translations: [Genetic [...] reconstr uction with removal of saline tissue roller stainer with replacement cohesive gel implant (630 ml) and placement of MTF FlexHD acellular dermal matrix graft, (Pliable Shaped Perforated, Large, Thick, 13x22 cm, 2 pieces) and revisionreconstructed left breast with superior capsulotomy and excision excess mastectomy skin contour deformity laterally and revision asymmetric inframammary fold with internal capsular plication and right breast reconstruction with removal of saline tissue roller stainer with replacement cohesive gel implant (630 ml) [...] reconstruction with placement of submuscular saline tissue roller stainer (650 ml) and placement MTF FlexHD acellular dermal matrix graft (23 x 26 cm). 2. First stage revision left breast reconstruction with placement of submuscular saline tissue roller stainer (650 ml) and placement MTF FlexHD acellular [...] [Breast replacement] 06-02-2022 Episodic Residual codes; unclassified (20 sources) History [...] Test Name Value Interpretation Reference Range Facility Abdomen WITH IV Contraston 0 11-21-2024 Abdomen WITH IV Contrast [facility] Imaging Services [address] [place] [address] [id number] Abdomen WITH IV Contrast MR#: [id number] Acct: [id number] Name: IRENE LOPEZ Rep #: [id number] : 1975 F 48 From: Stanley lyons MD PCP: DEVYN PERSON Status: REG CLI Study: Abdomen WITH IV Contrast Date of Exam: 5 Exam# [id number] Ordering Dr: Marlon Allen MD PROCEDURE: ABDOMEN WITH IV CONTRAST 11/21/2024 REASON FOR EXAM: RULE OUT UMIBILICAL HERNIA Possible diastasis recti. TECHNIQUE: Procedure Code: CTABDW Modality: CT Procedure: ABDOMEN WITH IV CONTRAST Multiplanar Sagittal and Coronal images were obtained. One or more dose reduction techniques were used (e.g., Automated exposure control, adjustment of the mA and/or kV according to patient size, use of iterative reconstruction technique. CONTRAST: Isovue-300 VOLUME: 100 mL RADIATION DOSE SUMMARY: CTDlvol: 13.88 mGy DLP: 443.65 mGycm COMPARISON: Prior study dated January 04, 2024. FINDINGS: Lung bases: The lung bases are clear. Liver: Diffuse fatty infiltration. Hepatomegaly. Stable 3.2 cm simple cyst in the left lobe of the liver as well as a 1.8 cm cyst in the inferior medial aspect of the right lobe of the liver. Gallbladder: The gallbladder is contracted. Minimal thickening of the gallbladder wall most likely secondary to the contracted state. Spleen: Borderline splenomegaly. Pancreas: Normal size without evidence of mass surrounding inflammation or ductal dilation. Adrenals: Unremarkable Kidneys: Normal renal sizes. No hydronephrosis. Bowel: Unremarkable Lymph nodes: Unremarkable. Vasculature: Unremarkable Peritoneum / Retroperitoneum: Small umbilical hernia containing fat. The neck of the hernia measures 10.9 mm. Bones: Degenerative changes of the spine. CT/Abdomen WITH IV Contrast IMPRESSION: Hepatomegaly and diffuse fatty infiltration of the liver. Stable hepatic cysts. Borderline splenomegaly. Small umbilical hernia containing fat. The neck of the hernia measures 10.9 mm. Reading Location: [id number] CC: DEVYN PERSON; Dr. Marlon Allen MD Payroll Clerk: Signed Normal [facility] Surgery Visit Reporton 11-[address] [facility] [address] [place] [address] OFFICE VISIT Date of Service: 11/03/24 MR#: [id number] Acct: [id number] Name: IRENE LOPEZ Rep #: [id number] : 1975 Provider: Dr. Mario mtz MD Age/Sex: 48/F Location: [facility] Status: Signed Intake Vital Signs 10/13/24 15:39 [...] mg PO QDAY 11/03/24 11/03/24 H istory [facility] Medical History Deformity of reconstructed breast GERD [...] Dr. Allen and plastic surgery here at [place] last year for issues related to the [...] colon c (more content not included)... Normal [facility] Plastic Surgery Visit Report on 10-13-[address] [facility] [id number] [address], [address] [place] [address] OFFICE VISIT Date of Service: 10/13/24 MR#: [id number] Acct: [id number] Name: IRENE LOPEZ Rep #: [id number] : 1975 Provider: Dr. Marlon Allen MD Age/Sex: 48/F Location: [facility] Status: Signed Intake Vital Signs 3 08/18/24 [...] revision, including removal of skin paddles (CPT: 57629 x 2 with 50 modifier) 2) Fat grafting to the left breast, 80 cc, fat grafting to the right breast, 80 cc (CPT: 31993 and 11894 x 3 units) 3) Excision of hypertrophic abdominal scar, 15 x 1 cm (39284) 4) Intermediate closure of abdominal scar excision site, 15 cm (CPT: 85844) 5) Kenalog injection, umbilicus hypertrophic scar 19 [...] her breast as able. 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 Incisions healed. Abdomen with central diastases approximately 5 cm. No palpable hernias. Lower extremities: No swelling/no calf swelling Coding Level of Care Code Global Post Op Diagnoses History of reconstruction of both breasts Z98.890 Diastasis of rectus abdominis M62.08 [facility] Medical History Deformity of reconstructed breast GERD [...] phobia Monoallel (more content not included)... Normal [facility] Plastic Surgery Visit Report on 09-01-2024 [address] Visit Report [facility] [address], [address] [place] [address] OFFICE VISIT Date of Service: 09/01/24 MR#: [id number] Acct: [id number] Name: IRENE LOPEZ Rep #: [id number] : 1975 Provider: Dr. Marlon Allen MD Age/Sex: 48/F [facility] [facility] Status: Signed Intake Vital [...] revision, including removal of skin paddles (CPT: 04479 x 2 with 50 modifier) 2) Fat grafting to the left breast, 80 cc, fat grafting to the right breast, 80 cc (CPT: 21882 and 91570 x 3 units) 3) Excision of hypertrophic abdominal scar, 15 x 1 cm (16826) 4) Intermediate closure of abdominal scar excision site, 15 cm (CPT: 09719) 5) Kenalog injection, umbilicus hypertrophic scar 19 [...] note prior to signature. 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 Incisions are clean dry and intact with Prineo tape in place (removed today). Appropriate swelling of the abdomen and thighs after liposuction. Bruising has subsided. Incision c/d/i on abdomen. Lower extremities: No swelling/no calf swelling Coding Level of Care Code Global Post Op Diagnoses History of reconstruction of both breasts Z98.890 [facility] Medical History Deformity of reconstructed breast GERD [...] headaches Allergies (more content not included)... Normal [facility] Plastic Surgery Visit Report on 08-25-2024 [address] Report [facility] [address] [place] [id number] OFFICE VISIT Date of Service: 08/25/24 MR#: [id number] Acct: [id number] Name: IRENE LOPEZ Rep #: [id number] : 1975 Provider: Dr. Marlon Allen MD Age/Sex: 48/F Location: [facility] Status: Signed Intake Vital Signs 08/18/24 16:23 [...] revision, including removal of skin paddles (CPT: 02053 x 2 with 50 modifier) 2) Fat grafting to the left breast, 80 cc, fat grafting to the right breast, 80 cc (CPT: 93712 and 46377 x 3 units) 3) Excision of hypertrophic abdominal scar, 15 x 1 cm (28605) 4) Intermediate closure of abdominal scar excision site, 15 cm (CPT: 37986) 5) Kenalog injection, umbilicus hypertrophic scar 19 August 2024: Doing well overall. No fevers chills or drainage. Happy with results thus far. Current encounter, 25 August 2024: Doing well overall. Happy thus far. No fevers/chills or drainage. No hard spots. 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 Normal [facility] Plastic Surgery Visit Report on 08-19-[address] Report [facility] [address], [address] [place] [address] OFFICE VISIT Date of Service: 08/19/24 MR#: [id number] Acct: [id number] Name: IRENE LOPEZ Rep #: [id number] : 1975 Provider: Dr. Marlon Allen MD Age/Sex: 48/F Location: [facility] Status: Signed Intake Vital Signs 08/17/24 06:29 [...] revision, including removal of skin paddles (CPT: 33552 x 2 with 50 modifier) 2) Fat grafting to the left breast, 80 cc, fat grafting to the right breast, 80 cc (CPT: 75753 and 69876 x 3 units) 3) Excision of hypertrophic abdominal scar, 15 x 1 cm (49066) 4) Intermediate closure of abdominal scar excision site, 15 cm (CPT: 29491) 5) Kenalog injection, umbilicus hypertrophic scar Current encounter, 19 August 2024: Doing well overall. No fevers chills or drainage. Happy with results thus far. 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 Incisions are clean dry and intact with Prineo tape in place. Appropriate swelling of the abdomen and thighs after liposuction. Steri-Strips in place with no drainage. Lower extremities: No swelling/no calf swelling Coding Level of Care Code Global Post Op Diagnoses History of reconstruction of both breasts Z98.890 [facility] Medical History Deformity of reconstructed breast GERD [...] and r (more content not included)... Normal [facility] H AND P Exam - Surgicalon H&P Exam - [facility] Medical Records Department [address] [place] [address] H P Exam - Surgical 08/17/24 0635 MR#: [id number] Acct: [id number] Name: IRENE LOPEZ Rep #: [id number] : 1975 48 From: Marlon Allen MD PCP: Dr. Amanda Osborne MD Status:[facility] Location: [place] [address] HPI - General HPI Narrative IRENE LOPEZ [...] symptoms). Bracing has helped, but CT persisting. 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 Patient marked (more content not included)... Normal [facility] MR/POSTOP.Leo 08-17-2024 MR/POSTOP.[facility] Medical Records Department [address] [place] [address] Anesthesia Postop Eval I 08/17/24 1120 MR#: [id number] Acct: [id number] Name: IRENE LOPEZ Rep #: [id number] : 1975 48 From: Maisha Corea CRNA PCP: Dr. Amanda Osborne MD Status:REG [facility] Y Race: C Location: [place] [address] Anesthesia: Postop Eval I Current Vital Signs [...] Postop Eval 1 completed: Yes 08/17/24 1122 Date Maisha Corea VETERAN APPEALS REVIEWER Cosigner Signature: Date CC: Signed Normal [facility] MR/NJPFUXHT2os 08-17-2024 /[facility] Medical Records Department [address] [place] [address] Anesthesia Postop Eval II 08/17/24 1151 MR#: [id number] Acct: [id number] Name: IRENE LOPEZ Rep #: [id number] : 1975 48 From: Kayla Peres CRNA PCP: Dr. Amanda Osborne MD Status:[facility] Y Race: C Location: [place] [address] Anesthesia Postop Eval I Sum Postop Eval Completion status Anesthesia document: Postop Eval 1 completed: Yes Anesthesia Postop Eval I Summary Anesthesia Postop Eval I Summary: Anesthesia Postop Eval I: Assessment Summary Airway patent Yes 08/17/24 11:22 VETERAN APPEALS REVIEWER.GDOTT Spontaneous unlabored Yes 08/17/24 11:22 VETERAN APPEALS REVIEWER.GDOTT respirations Mental status Awake,Calm 08/17/24 11:22 VETERAN [employer] REVIEWER.GDOTT nausea No 08/17/24 11:22 VETERAN APPEALS REVIEWER.GDOTT Vomiting No 08/17/24 11:22 VETERAN APPEALS REVIEWER.GDOTT Anesthesia Postop Eval I: Fluid Summary Crystalloid volume administer 1,700 08/17/24 11:22 VETERAN APPEALS REVIEWER.GDOTT (ml) Colloids volume administered ( ml) Blood Product volume administered (ml) Total IV fluid infused 1,700 08/17/24 11:22 VETERAN APPEALS REVIEWER.GDOTT Anesthesia Postop Eval I: Summary Notes Anesthesia Complication No 08/17/24 11:22 VETERAN APPEALS REVIEWER.GDOTT Anesthesia Complication Comment: Post-operative progress note Anesthesia: Postop Eval II Evaluation Mental status: Asleep Pain Level: 3 nausea: No Vomiting: No 08/17/24 1151 Date Kayla Peres VETERAN APPEALS REVIEWER Cosigner Signature: Date CC: Signed Normal [facility] Operative Reporton 5 Operative Report [facility] Medical Records Department [address] [place] [address] Operative Report 08/17/24 1558 MR#: [id number] Acct: [id number] Name: IRENE LOPEZ Rep #: [id number] : 1975 48 From: Marlon Allen MD PCP: Dr. Amanda Osborne MD Status:[facility] Location: [facility] Operative Report (Standard) Operative Information Date of Procedure: 08/10/24 Pre-Operative Diagnosis: S/p breast reconstruction with bilateral MICHELLE flaps Post-Operative Diagnosis: Same Surgery/Procedure Performed: 1) Bilateral breast reconstruction revision, including removal of skin paddles (CPT: 31204 x 2 with 50 modifier) 2) Fat grafting to the left breast, 80 cc, fat grafting to the right breast, 80 cc (CPT: 82368 and 04551 x 3 units) 3) Excision of hypertrophic abdominal scar, 15 x 1 cm (71113) 4) Intermediate closure of abdominal scar excision site, 15 cm (CPT: 37889) 5) Kenalog injection, umbilicus hypertrophic scar farm technician: Yes Full Roll Inspector: Mirza Lanza Tasks completed by starch treating assistant: Closing and Retracting Type of Anesthesia: General/Supplemental [...] the w (more content not included)... Normal [facility] Plastic Surgery Visit Report on 07-28-2024 [address] Visit Report [facility] [address], [address] [place] [address] OFFICE VISIT Date of Service: 07/28/24 MR#: [id number] Acct: [id number] Name: IRENE LOPEZ Rep #: [id number] : 1975 Provider: Dr. Marlon Allen MD Age/Sex: 48/F [place] [facility] Status: Signed Intake Vital Signs 05/16/24 10:22 [...] breast reconstruction with removal of saline tissue roller stainer with replacement cohesive gel implant (630 ml) [...] including the following: (1) mastectomy with tissue roller stainer placement, (2) explantation of the tissue expanders from infection, (3) placement of new tissue expanders, (4)exchange for permanent implants. 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 She is overall healthy. She does not [...] and acellular dermal matrix with capsulectomy (CPT 01798) 2. Removal of left partial submuscular breast implant and acellular dermal matrix with ca (more content not included)... Normal [facility] Plastic Surgery Visit Report on 07-07-2024 [address] Report [facility] [address], [address] [place] [address] OFFICE VISIT Date of Service: 07/07/24 MR#: [id number] Acct: [id number] Name: IRENE LOPEZ Rep #: [id number] : 1975 Provider: Dr. Marlon Allen MD Age/Sex: 48/F Location[place] [facility] Status: Signed Intake Vital Signs 05/16/24 10:22 [...] breast reconstruction with removal of saline tissue roller stainer with replacement cohesive gel implant (630 ml) and placement of MTF FlexHD acellular dermal matrix graft, (Pliable Shaped Perforate (more content not included)... Normal [facility] Wound Ctr History AND Physic damien 05-16-2024 Wound Ctr History & Physical [facility] [address] [place] [address] H P Exam - Wound Care 05/16/24 1320 MR#: [id number] Acct: [id number] Name: IRENE LOPEZ Rep #: [id number] : 1975 48 From: Marlon Allen MD [...] fevers chills. Doing well with wound care. [facility] Medical History Deformity of reconstructed breast GERD [...] Layer Expos (more content not included)... Normal [facility] Plastic Surgery Visit Report on 05-10-2024 [address] Report [facility] [address], [address] [place] [address] OFFICE VISIT Date of Service: 05/10/24 MR#: [id number] Acct: [id number] Name: IRENE LOPEZ Rep #: [id number] : 1975 Provider: FLETCHER vázquez Age/Sex: 48/F Location[place] [facility] Status: Signed I have [...] of prophylactic mastectomy of both breasts Z90.13 [facility] Medical History Deformity of reconstructed breast GERD [...] Needed Assessment (more content not included)... Normal [facility] Plastic Surgery Visit Report on 05-06-2024 [address] Report [facility] [address] [place] [address], [address] [place] [address] OFFICE VISIT Date of Service: 05/06/24 MR#: [id number] Acct: [id number] Name: IRENE LOPEZ Rep #: [id number] : 1975 Provider: Dr. Marlon Allen MD Age/Sex: 48/F Location: [facility] Status: Signed with Addenda ADDENDUM by Dr. [...] bracing at night. 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 No signs of infection. Flap skin paddles are warm and well perfused. No congestion. Good Doppler signals bilaterally over the paddle. Abdomen: Umbilicus scaring in, no further eschar. Necrosis was partial thickness. Healing. 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 Normal [facility] Plastic Surgery Visit Report on 05-02-2024 [address] Report [facility] [address], [address] [place] [address] OFFICE VISIT Date of Service: 05/03/24 MR#: [id number] Acct: [id number] Name: ETELVINAIRENE Rep #: [id number] : 1975 Provider: Dr. Marlon Allen MD [...] today in clinic. 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 Normal [facility] Plastic Surgery Visit Report on 04-26-2024 [address] Report [facility] [address], [address] [place], [place] [address] OFFICE VISIT Date of Service: 04/26/24 MR#: [id number] Acct: [id number] Name: IRENE LOPEZ Rep #: [id number] : 1975 Provider: FLETCHER vázquez Age/Sex: 48/F Location: [facility] Status: Signed I have [...] History of reconstruction of both breasts Z98.890 [facility] Medical History Deformity of reconstructed breast GERD [...] Breast c (more content not included)... Normal [facility] Plastic Surgery Visit Report on 04-19-[address] Report [facility] [address], [address] [place] [address] OFFICE VISIT Date of Service: 04/19/24 MR#: [id number] Acct: [id number] Name: IRENE LOPEZ Rep #: [id number] : 1975 Provider: FLETCHER vázquez Age/Sex: 48/F Location: [facility] Status: Signed Pt seen evaluated w/UDAY. I [...] History of reconstruction of both breasts Z98.890 [facility] Medical History Deformity of reconstructed breast GERD (gastroeso (more content not included)... Normal [facility] Plastic Surgery Visit Report on 04-11-2024 [address] Report [facility] [address], [address] [place] [address] OFFICE VISIT Date of Service: 04/11/24 MR#: [id number] Acct: [id number] Name: IRENE LOPEZ Rep #: [id number] : 1975 Provider: FLETCHER vázquez Age/Sex: 48/F Location: [facility] Status: Signed Pt seen evaluated w/UDAY. 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 Objective Details: Breast incisions dry and [...] History of reconstruction of both breasts Z98.890 [facility] Medical History (Reviewed 04/12/24 @ 10:06 by Rachel Beard SOCIAL SERVICES COUNSELOR, SOCIAL SERVICES COUNSELOR-C) Deformity of reconstructed breast GERD (gastroesophageal reflux [...] (Reviewed 04/12/24 @ 10:06 by Rachel Beard SOCIAL SERVICES COUNSELOR, SOCIAL SERVICES COUNSELOR-C) Hx of breast reconstruction History of prophylactic mastectomy of both breasts Status post implant removal from both breasts History of reconstruction of both breasts Hx of bilateral mastectomy History of placement of ear tubes History of bilateral breast implants Status post bilateral breast reconstruction Status po (more content not included)... Normal [facility] Plastic Surgery Visit Report on 04-07-2024 [address] Report [facility] [address], [address] [place] [address] OFFICE VISIT Date of Service: 04/07/24 MR#: [id number] Acct: [id number] Name: IRENE LOPEZ Rep #: [id number] : 1975 Provider: Dr. Marlon Allen MD Age/Sex: 48/F Location: [facility] Status: Signed with Addenda ADDENDUM by Dr. [...] and the umbilicus. 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 No congestion. Good Doppler signals bilaterally over the paddle. There is some slight reactive erythema/pink skin on the medial aspect of the left flap and on the [place] mastectomy flap skin in the same location, but no signs of congestion and no induration. Breasts are soft bilaterally. Drains SS. Abdomen: Drains SS. Incision c/d/i underneath Prineo. Umbilicus with some dusky skin/eschar forming. Coding Level of Care Code Global Post Op Diagnoses History of reconstruction of both breasts Z98.890 [facility] Medical History Deformity of reconstructed breast GERD [...] reconstructed breast (more content not included)... Normal [facility] Abdomen Single View (Portabl e)on 04-01-2024 Abdomen Single View (Portable) [facility] Imaging Services [address] [place] [id number] Abdomen Single View (Portable) MR#: [id number] Acct: [id number] Name: IRENE LOPEZ Rep #: [id number] : 1975 F 48 From: Stanley lyons MD PCP: Dr. Amanda Osborne MD Status: ADM IN Study: Abdomen Single View (Portable) Date of Exam: 0 04/01/24 Exam# [id number] Ordering Dr: Rachel Beard SOCIAL SERVICES COUNSELOR SOCIAL SERVICES COUNSELOR-C [id number] STUDY: X-RAY - ABDOMEN/PELVIS REASON FOR EXAM: [...] CC: FLETCHER Beard; Dr. Amanda Osborne MD Payroll Clerk: Signed Normal [facility] Absolute lymphocyte countOrd ered By: Marlon Allen on 04-01-2024 Lymphocytes Auto (Unsp spec) [#/Vol] 1.75 10*3/uL 0.83-4.51 [facility] Absolute neutrophil countOrd ered By: [facility] 04-01-2024 Neutrophils (Bld) [#/Vol] 10.0 10*3/uL High 2.0-7.7 [facility] Automated lymphocyte count a s percentage of total leukocytesOrdered By: Marlon Allisonjolly on 04-01-2024 Lymphocytes/100 WBC Auto (Unsp spec) 13.5 % Low 19-41 [facility] Basic Metabolic Profile (BMP )on 04-01-2024 BUN/CRE 12.1 RATIO Normal 10-20 [facility] Comment on above: Performed By: #### L 100.0100, L500.2500 ####[facility] [address] [place], [address] CA,Total 8.1 mg/dL Low 8.5-10.1 [facility] Comment on above: Performed By: #### L 100.0100, L500.2500 ####[facility] [address] [place], [address] Chloride [Moles/Vol] 107 mmol/L Normal 98-107 [facility] Comment on above: Performed By: #### L 100.0100, L500.2500 ####[facility] [address] [place], [address] CO2 [Moles/Vol] 26.0 mmol/L Normal 21.0-32.0 [facility] Comment on above: Performed By: #### L 100.0100, L500.2500 ####[facility] [address] [place], [address] Creatinine [Mass/Vol] 0.74 mg/dL Normal 0.55-1.02 [facility] Comment on above: Result Comment: The validity of the calculated GFR GFRAA in patients over 70 years has not been determined. Clinical correlation is essential. Performed By: #### L 100.0100, L500.2500 ####[facility] [address] [place], [address] ECRCL 99.13 ml/min Normal [facility] Comment on above: Performed By: #### L 100.0100, L500.2500 ####[facility] [address] [place], [address] EST GFR - AA 106 mL/min Normal >60 [facility] Comment on above: Result Comment: Afri can Latvian GFR Calc Performed By: #### L 100.0100, L500.2500 ####[facility] [address] [place], [address] GAP 5 Normal 5-15 [facility] Comment on above: Performed By: #### L 100.0100, L500.2500 ####[facility] [address] [place], [address] GFR/1.73 sq M.predicted among non-blacks MDRD (S/P/Bld) [Vol rate/Area] 88 mL/min/{1.73_m2} Normal >60 [facility] Comment on above: Result Comment: Non- GFR Calc Performed By: #### L 100.0100, L500.2500 ####[facility] [address] [place], [address] Glucose [Mass/Vol] 130 mg/dL High 74-106 [facility] Comment on above: Result Comment: Fast ing Glucose result greater than or equal to 126 mg/dL suggests DIABETES MELLITUS per A.D.A. criteria. Performed By: #### L 100.0100, L500.2500 ####[facility] [address] [place], [address] Potassium [Moles/Vol] 4.2 mmol/L Normal 3.5-5.1 [facility] Comment on above: Performed By: #### L 100.0100, L500.2500 ####[facility] [address] [place], [address] Sodium [Moles/Vol] 138 mmol/L Normal 136-145 [facility] Comment on above: Performed By: #### L 100.0100, L500.2500 ####[facility] [address] [place], [address] Urea nitrogen [Mass/Vol] 9 mg/dL Normal 7-18 [facility] Comment on above: Performed By: #### L 100.0100, L500.2500 ####[facility] [address] [place], [address] Basophil percentageOrdered B y: Marlon Allen on 04-01-2024 Basophils/100 WBC (Bld) 0.5 % 0-1 [facility] Blood urea nitrogen (BUN)/cr eatinine ratioOrdered By: Marlon Allen on 04-01-2024 Urea nitrogen/Creatinine [Mass ratio] 12.1 mg/mg 10-20 [facility] CBC W/Diff, Automatedon 03-16 Absolute Lymph 1.75 X10 3/uL Normal 0.83-4.51 [facility] Comment on above: Performed By: #### L 100.0100, L500.2500 ####[facility] [address] [place], [address] Absolute Neut 10.0 X10 3/uL High 2.0-7.7 [facility] Comment on above: Performed By: #### L 100.0100, L500.2500 ####[facility] [address] [place], [address] Basophils/100 WBC (Bld) 0.5 % Normal 0-1 [facility] Comment on above: Performed By: #### L 100.0100, L500.2500 ####[facility] [address] [place], [address] Eosinophils/100 WBC (Bld) 0.7 % Normal 0-5 [facility] Comment on above: Performed By: #### L 100.0100, L500.2500 ####[facility] [address] [place], [address] Erythrocyte distribution width (RBC) [Ratio] 12.6 % Normal 11.6-14.6 [facility] Comment on above: Performed By: #### L 100.0100, L500.2500 ####[facility] [address] [place], [address] Hematocrit (Bld) [Volume fraction] 33.8 % Low 37-47 [facility] Comment on above: Performed By: #### L 100.0100, L500.2500 ####[facility] [address] [place], [address] Hemoglobin (Bld) [Mass/Vol] 11.2 g/dL Low 12.0-15.0 [facility] Comment on above: Performed By: #### L 100.0100, L500.2500 ####[facility] [address] [place], [address] IG% 0.600 Normal 0.0-0.9 [facility] Comment on above: Result Comment: IG% - Immature Granulocytes (promyelocytes, myelocytes and metamyelocytes) > 1% indicates that a LEFT SHIFT is Present. Performed By: #### L 100.0100, L500.2500 ####[facility] [address] [place], [address] Lymphocytes/100 WBC (Bld) 13.5 % Low 19-41 [facility] Comment on above: Performed By: #### L 100.0100, L500.2500 ####[facility] [address] [place], [address] MCH (RBC) [Entitic mass] 32.4 pg High 27.0-32.0 [facility] Comment on above: Performed By: #### L 100.0100, L500.2500 ####[facility] [address] [place], [address] MCHC (RBC) [Mass/Vol] 33.1 g/dL Normal 32-36 [facility] Comment on above: Performed By: #### L 100.0100, L500.2500 ####[facility] [address] [place], [address] MCV (RBC) [Entitic vol] 97.7 fL Normal 81-99 [facility] Comment on above: Performed By: #### L 100.0100, L500.2500 ####[facility] [address] [place], [address] Monocytes/100 WBC (Bld) 7.5 % Normal 0-10 [facility] Comment on above: Performed By: #### L 100.0100, L500.2500 ####[facility] [address] [place], [address] Neutrophils/100 WBC (Bld) 77.2 % High 47-70 [facility] Comment on above: Performed By: #### L 100.0100, L500.2500 ####[facility] [address] [place], [address] Nucleated RBC (Bld) [#/Vol] 0 10*3/uL Normal 0-5 [facility] Comment on above: Performed By: #### L 100.0100, L500.2500 ####[facility] [address] [place], [address] Platelet mean volume (Bld) [Entitic vol] 11.1 fL Normal 6.2-12.0 [facility] Comment on above: Performed By: #### L 100.0100, L500.2500 ####[facility] [address] [place], [address] Platelets (Bld) [#/Vol] 188 10*3/uL Normal 150-450 [facility] Comment on above: Performed By: #### L 100.0100, L500.2500 ####[facility] [address] [place], [address] RBC (Bld) [#/Vol] 3.46 10*6/uL Low 4.2-5.4 [facility] Comment on above: Performed By: #### L 100.0100, L500.2500 ####[facility] [address] [place], [address] RDW SD 44.9 fl High 35.1-43.9 [facility] Comment on above: Performed By: #### L 100.0100, L500.2500 ####[facility] [address] [place], [address] WBC (Bld) [#/Vol] 13.0 10*3/uL High 4.4-11.0 [facility] Comment on above: Performed By: #### L 100.0100, L500.2500 ####[facility] [address] [place], [address] Carbon dioxide measurementOr dered By: Marlon Allen on 04-01-2024 CO2 [Moles/Vol] 26.0 mmol/L 21.0-32.0 [facility] Chest 1 View (Portable)on Chest 1 View (Portable) [facility] Imaging Services [address] [place], [place] [id number] Chest 1 View (Portable) MR#: [id number] Acct: [id number] Name: IRENE LOPEZ Rep #: [id number] : 1975 F 48 From: Stanley lyons MD PCP: Dr. Amanda Osborne MD Status: ADM IN Study: Chest 1 View (Portable) Date of Exam: 04/01/24 Exam# [id number] Ordering Dr: Rachel Beard NP 304:[id number] STUDY: X-RAY CHEST REASON FOR EXAM: Female, [...] CC: FLETCHER Beard; Dr. Amanda Osborne MD Payroll Clerk: Signed Normal [facility] Chloride measurementOrdered By: Marlon Allen on 04-01-2024 Chloride [Moles/Vol] 107 mmol/L 98-107 [facility] Eosinophil percentageOrdered By: Marlon Allen on 04-01-2024 Eosinophils/100 WBC (Bld) 0.7 % 0-5 [facility] Erythrocyte distribution wid th ratioOrdered By: Marlon Allen on 04-01-2024 Erythrocyte distribution width (RBC) [Ratio] 12.6 % 11.6-14.6 [facility] Erythrocyte distribution wid th standard deviationOrdered By: Marlon Allen on 04-01-2024 Erythrocyte distribution width (RBC) [Entitic vol] 44.9 fL High 35.1-43.9 [facility] Erythrocyte distribution width (RBC) [Ratio] 44.9 fl High 35.1-43.9 [facility] Estimated glomerular filtrat ion rate (GFR) AmericanOrdered By: Marlon Allen on 04-01-2024 Estimated GFR (MDRD) Amer 106 mL/min >60 [facility] Comment on above: GFR Calc Estimation of creatinine matias aranceOrdered By: Marlon Allen on 04-01-2024 Estimated Creatinine Clearance Calc 99.13 ml/min [facility] Glomerular filtration rate ( GFR) estimationOrdered By: Marlon Allen on 04-01-2024 Estimated GFR (MDRD) Non-Af Amer 88 mL/min >60 [facility] Comment on above: Non- GFR Calc GFR/1.73 sq M.predicted among non-blacks MDRD (S/P/Bld) [Vol rate/Area] 88 mL/min/{1.73_m2} >60 [facility] Comment on above: Non- GFR Calc Glucose measurementOrdered B y: Marlon Allen on 04-01-2024 Glucose [Mass/Vol] 130 mg/dL High 74-106 [facility] Comment on above: Fasting Glucose resu lt greater than or equal to 126 mg/dL suggests DIABETES MELLITUS per A.D.A. criteria. Hematocrit Auto (Bld) [Volum e fraction]Ordered By: Marlon Allen on 04-01-2024 Hematocrit (Bld) [Volume fraction] 33.8 % Low 37-47 [facility] Hemoglobin measurementOrdere d By: Marlon Allen on 04-01-2024 Hemoglobin (Bld) [Mass/Vol] 11.2 g/dL Low 12.0-15.0 [facility] Immature granulocytes/100 WB C Auto (Bld)Ordered By: Marlon Allen on 04-01-2024 Immature granulocytes/100 WBC (Bld) 0.600 % 0.0-0.9 [facility] Comment on above: IG% - Immature Granu locytes (promyelocytes, myelocytes and metamyelocytes) > 1% indicates that a LEFT SHIFT is Present. Lymphocytes Auto (Unsp spec) [#/Vol]Ordered By: Marlon Allen on 04-01-2024 Lymphocytes (Bld) [#/Vol] 1.75 10*3/uL 0.83-4.51 [facility] Lymphocytes/100 WBC Auto (Un sp spec)Ordered By: Marlon Allen on 04-01-2024 Lymphocytes/100 WBC (Bld) 13.5 % Low 19-41 [facility] MCV (mean corpuscular volume ) determinationOrdered By: Marlon Allen on 04-01-2024 MCV (RBC) [Entitic vol] 97.7 fL 81-99 [facility] Mean corpuscular hemoglobin (MCH) determinationOrdered By: Marlon Allen on 04-01-2024 MCH (RBC) [Entitic mass] 32.4 pg High 27.0-32.0 [facility] Mean corpuscular hemoglobin concentration (MCHC) determinationOrdered By: Marlon Allen on 04-01-2024 MCHC (RBC) [Mass/Vol] 33.1 g/dL 32-36 [facility] Mean platelet volume determi nationOrdered By: Marlon Allen on 04-01-2024 Platelet mean volume (Bld) [Entitic vol] 11.1 fL 6.2-12.0 [facility] Monocyte percentageOrdered B y: Marlon Allen on 04-01-2024 Monocytes/100 WBC (Bld) 7.5 % 0-10 [facility] Neutrophil percentageOrdered By: Marlon Allen on 04-01-2024 Neutrophils/100 WBC (Bld) 77.2 % High 47-70 [facility] Nucleated red blood cell per centageOrdered By: Marlon Allen on 04-01-2024 Nucleated RBC/100 WBC (Bld) [Ratio] 0 % 0-5 [facility] Operative Reporton 5 Operative Report [facility] Medical Records Department [address] [place] [address] Operative Report 04/01/24 1020 MR#: [id number] Acct: [id number] Name: IRENE LOPEZ Rep #: [id number] : 1975 48 From: Marlon Allen MD PCP: Dr. Amanda Osborne MD Status:ADM IN Location: ICU ICU03-1 Operative Report (Standard) Operative Information Date of Procedure: 03/31/24 Pre-Operative Diagnosis: History of breast reconstruction with capsular contracture/pain Post-Operative Diagnosis: Same Surgery/Procedure Performed: 1. Removal of right partial submuscular breast implant and acellular dermal matrix with capsulectomy (CPT 97691) 2. Removal of left partial submuscular breast implant and acellular dermal matrix with capsulectomy (CPT 73090 - 48 modifier) 3. Reconstruction of right breast with abdominally-based free tissue transfer via MICHELLE flap with one medial row and one lateral row cable installation technician from the left abdomen Couple size 3 mm (CPT: 81578) 4. Reconstruction of left breast with abdominally-based free tissue transfer via MICHELLE flap with two lateral row perforators from the right abdomen [employer]man size 3 mm (CPT: 76176-72 modifier) 5. Use of fluorescence angiography for assessment of the flaps intra-operatively (using SPY machine), (CPT: 79092) 6. Nerve reconstruction with oxygen allograft and nerve wrap to the third intercostal nerve, left chest, from nerve on the right MICHELLE flap, (CPT: 83254) farm technician: Yes Full Roll Inspector: Mirza Lanza Tasks completed by starch treating assistant: Retracting Additional surgical assistant?: Yes Additional Teacher Kindergarten #2: Pamela Berman Tasks completed by surgical assistant #2: Retracting Type of Anesthesia: General/Supplemental [...] autologous reconstruction with a deep inferior epigastric cable installation technician flap as she reported that she had [...] rib.??? The perichondrium was incised with a Lovejoy elevator and the rib was removed with a rongeur.??? The posterior perich (more content not included)... Normal [facility] Platelet countOrdered By: Margaret Allen on 04-01-2024 Platelets (Bld) [#/Vol] 188 10*3/uL 150-450 [facility] Potassium measurementOrdered By: Marlon Allen on 04-01-2024 Potassium [Moles/Vol] 4.2 mmol/L 3.5-5.1 [facility] RBC Auto (Bld) [#/Vol]Ordere d By: Marlon Allen on 04-01-2024 RBC (Bld) [#/Vol] 3.46 10*6/uL Low 4.2-5.4 [facility] Serum anion gap measurementO rdered By: Marlon Allen on 04-01-2024 Anion gap [Moles/Vol] 5 mmol/L 5-15 [facility] Serum or plasma calcium deneen urement (mass/volume)Ordered By: Marlon Allen on 04-01-2024 Calcium [Mass/Vol] 8.1 mg/dL Low 8.5-10.1 [facility] Serum or plasma creatinine m easurement (mass/volume)Ordered By: Marlon Allen on 04-01-2024 Creatinine [Mass/Vol] 0.74 mg/dL 0.55-1.02 [facility] Comment on above: The validity of the calculated GFR & GFRAA in patients over 70 years has not been determined. Clinical correlation is essential. Serum or plasma urea nitroge n measurement (mass/volume)Ordered By: Marlon Allen on 04-01-2024 Urea nitrogen [Mass/Vol] 9 mg/dL 7-18 [facility] Sodium levelOrdered By: Candelario Allen on 04-01-2024 Sodium [Moles/Vol] 138 mmol/L 136-145 [facility] White blood cell (WBC) count Ordered By: Marlon Allen on 04-01-2024 WBC (Bld) [#/Vol] 13.0 10*3/uL High 4.4-11.0 [facility] 12 Lead EKGon 03-31-2024 12 Lead EKG [facility] Cardiovascular Services [address] [place] [address] 12 Lead EKG 03/31/24 0553 MR#: [id number] Acct: [id number] Name: IRENE LOPEZ Rep #: [id number] : 1975 48 From: Sarah Leyva MD [...] No significant change was found Confirmed by VIOLET ROBERTO, YAHIR ([id number]), school photograph editor TRUDY YATES ([id number]) on 04/11/2024 2:20:42 PM Referred By: Marlon Allen Confirmed By: YAHIR LEYVA MD 04/11/24 1420 Date Sarah Leyva MD CC: Dr. Roberto Guan MD; Dr. Amanda Osborne MD; Dr. Marlon Allen MD Signed Normal [facility] Bedside Glucoseon 03-31-2024 FINGERSTICK GLU 109 mg/dL High 74-106 [facility] Comment on above: Result Comment: MT MCKOY OF PATIENT CARE PER NURSING PROTOCOL Performed By: #### L 501.080 #### [facility] Laboratory [address] [place], [address] [facility] at [facility] deOrdered By: Marlon Allen on 03-31-2024 Bedside Glucose ([facility]) 109 mg/dL High 74-106 [facility] Comment on above: MANAGEMENT OF PATIEN T CARE PER NURSING PROTOCOL Glucose [Mass/Vol] 109 mg/dL High 74-106 [facility] Comment on above: MANAGEMENT OF PATIEN T CARE PER NURSING PROTOCOL H AND P Exam - Surgicalon H&P Exam - Surgical [facility] Medical Records Department [address] [place] [address] H P Exam - Surgical 03/31/24 0709 MR#: [id number] Acct: [id number] Name: IRENE LOPEZ Rep #: [id number] : 1975 48 From: Marlon Allen MD PCP: Dr. Amanda Osborne MD Status:ADM IN Location: [place] [address] HPI - General General Date of Admission: [...] breast reconstruction with removal of saline tissue roller stainer with replacement cohesive gel implant (630 ml) [...] including the following: (1) mastectomy with tissue roller stainer placement, (2) explantation of the tissue expanders from infection, (3) placement of new tissue expanders, (4)exchange for permanent implants. 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 She is overall healthy. She does not [...] CHANGE i (more content not included)... Normal [facility] MR/POSTOP.[facility] 03-31-2024 MR/POSTOP.[facility] Medical Records Department [address] [place] [address] Anesthesia Postop Eval I 03/31/242005 MR#: [id number] Acct: [id number] Name: IRENE LOPEZ Rep #: [id number] : 1975 48 From: Maisha Corea PCP: [...] Eval 1 completed: Yes 03/31/242030 Date Maisha Smiley Signature: Date CC: Signed Normal [facility] MR/BVZFHJGQ6qm 03-31-2024 MR/POSTOPAN2 [facility] Medical Records Department [address] [place] [address] Anesthesia Postop Eval II 03/31/242038 MR#: [id number] Acct: [id number] Name: IRENE LOPEZ Rep #: [id number] : 1975 48 From: Roberto Guan MD PCP: Dr. Amanda Osboren MD Status:ADM IN Y Race: C Location: ICU ICU03-1 Anesthesia Postop Eval I Sum Postop Eval Completion status Anesthesia document: Postop Eval 1 completed: Yes Anesthesia Postop Eval I Summary Anesthesia Postop Eval I Summary: Anesthesia Postop Eval I: Assessment Summary Airway patent Yes 03/31/24 20:24 VETERAN APPEALS REVIEWER.GDOTT Spontaneous unlabored Yes 03/31/24 20:24 [employer] REVIEWER.GDOTT respirations Mental status Awake,Calm 03/31/24 20:24 [employer] REVIEWER.GDOTT nausea No 03/31/24 20:24 [employer] REVIEWER.GDOTT Vomiting No 03/31/24 20:24 [employer]ER[employer] APPEALS REVIEWER.GDOTT Anesthesia Postop Eval I: Fluid Summary Crystalloid volume administer 7,280 03/31/24 20:24 VETERAN APPEALS REVIEWER.GDOTT (ml) Colloids volume administered ( ml) Blood Product volume administered (ml) Total IV fluid infused 7,280 03/31/24 20:24 V[employer]ER[employer] APPEALS REVIEWER.GDOTT Anesthesia Postop Eval I: Summary Notes Anesthesia Complication No 03/31/24 20:24 VETER[employer] APPEALS REVIEWER.GDOTT Anesthesia Complication Comment: Post-operative progress note Patient extubated. 03/31/24 20:31 V[employer]ER[employer] APPEALS REVIEWER.GDOTT Spontaneously breathing. Transport to ICU with oxygen and monitors for close monitoring of the perfusion in the flap. Anesthesia: Postop Eval II Evaluation Mental status: Awake and Calm Pain Level: 1 nausea: No Vomiting: No Complications Anesthesia Complication: No 03/31/242039 Date Roberto Guan MD Cosigner Signature: Date CC: Signed Normal [facility] Magnesiumon 03-31-2024 Magnesium [Mass/Vol] 2.2 mg/dL Normal 1.6-2.6 [facility] Comment on above: Performed By: #### L 501.5200 #### [facility] Laboratory [address] [place], [place] [address], [address] Magnesium measurementOrdered By: Roberto Guan on 03-31-2024 Magnesium [Mass/Vol] 2.2 mg/dL 1.6-2.6 [facility] Surgery Specimen Level Randal 03-31-2024 Surgery Specimen Level IV Patient Age/Sex Location Account Attending Physician IRENE LOPEZ 48/F [facility] [id number] Dr. Marlon Allen MD Specimen: [id number] Received: 04/01/24 Status: RYLAND Jones Num: [id number] Spec Type: FOREIGN B Subm Dr: Dr. [...] with focal foreign body giant cell reaction. . 04/04/2024 MICROSCOPIC DESCRIPTION Slides are reviewed. GROSS [...] in aggregate 7.5 x 3.5 x 0.5cm. Business Planning Director sections are submitted in one cassette. B. Received in fixative is one container labeled with the patient's name and designated Left implant. The specimen consists of a ovoid gel implant measuring 17cm in diameter and up to 5cm in depth. Implant appears to be intact. Inscription on the implant says Garretson [id number] M+D 630cc. The specimen is for gross identification only. C. Received in fixative is one container labeled with the patient's name and designated Right implant. The specimen consists of a ovoid gel implant measuring 17cm in diameter and up to 5cm in depth. Implant appears to be intact. Inscription on the implant says Garretson [id number] M+D 630cc. The specimen is for gross [...] in aggregate 7 x 6 x 1.5cm. Business Planning Director sections are submitted in one cassette. SJ 04/01/2024 TC:5 CPT:33799o8, 94494h6 Patient Age/Sex Location Account Attending Physician IRENE LOPEZ 48/F ICU [id number] Dr. Marlon Allen MD Signed (signature on file) Dr. Vasyl Spivey MD 04/04/24 1306 Normal [facility] Comment on above: Performed By: #### P SUIV ####[facility] [address] [facility] [address]. [facility] [address] Type AND Screenon 03-31-2024 ABO and Rh group Nom (Bld) Blood group O Rh(D) positive Normal [facility] Comment on above: Order Comment: S Performed By: #### B TS ####[facility] [address] [facility] [address] [place], [place], [address] Plastic Surgery Visit Report on 03-30-2024 Plastic Surgery Visit Report [facility] [place] [address], [address] [place] [address] OFFICE VISIT Date of Service: 03/30/24 MR#: [id number] Acct: [id number] Name: IRENE LOPEZ Rep #: [id number] : 1975 Provider: Dr. Marlon Allen MD Age/Sex: 48/F Location: [facility] Status: Signed with Addenda ADDENDUM by Dr. Marlon Allen MD on 03/30/24 at 1701 Assessment and Plan (No Qualifiers) Assessment and Plan (1) History of reconstruction of both breasts: Status: Acute Plan: Discussed nipples as well. 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 Normal [facility] Basic metabolic 2000 panelon 03-21-2024 Anion gap [Moles/Vol] 13 mmol/L Normal 10-20 [facility] Comment on above: Performed By: #### 2 4321-2 #### MCKENZIE MONICA ([id number]) [facility] ([facility]) [address] [place] [address] Calcium [Mass/Vol] 9.8 mg/dL Normal 8.6-10.3 [facility] Comment on above: Performed By: #### 2 4321-2 #### JONAH ANDERSON ([id number]) [facility] ([facility]) [address] [place] [address] 15056 Chloride [Moles/Vol] 102 mmol/L Normal 98-107 [facility] Comment on above: Performed By: #### 2 4321-2 #### JONAH ANDERSON ([id number]) [facility] ([facility]) [address] [place] [address] 04465 CO2 [Moles/Vol] 28 mmol/L Normal 21-32 [facility] Comment on above: Performed By: #### 2 4321-2 #### JONAH ANDERSON ([id number]) [facility] ([facility]) [address] [place] [address] 49084 Creatinine [Mass/Vol] 0.68 mg/dL Normal 0.50-1.05 [facility] Comment on above: Performed By: #### 2 4321-2 #### JONAH ANDERSON ([id number]) [facility] ([facility]) [address] [place] [address] 26186 GFR/1.73 sq M.predicted MDRD (S/P/Bld) [Vol rate/Area] mL/min/{1.73_m2} Normal >60 [facility] Comment on above: Result Comment: Calc ulations of estimated GFR are performed using the 2020 CKD-EPI Study Refit equation without the race variable for the IDMS-Traceable creatinine methods. https://jasn.asnjournals.org/content/early//ASN.73140 87009 Performed By: #### 2 4321-2 #### JONAH ANDERSON ([id number]) [facility] ([facility]) [address] [place] [address] 91589 Glucose [Mass/Vol] 99 mg/dL Normal 74-99 [facility] Comment on above: Performed By: #### 2 4321-2 #### JONAH ANDERSON ([id number]) [facility] ([facility]) [address] [place] [address] 81598 Potassium [Moles/Vol] 4.4 mmol/L Normal 3.5-5.3 [facility] Comment on above: Performed By: #### 2 4321-2 #### JONAH ANDERSON ([id number]) [facility] ([facility]) [address] [place] [address] 56111 Sodium [Moles/Vol] 139 mmol/L Normal 136-145 [facility] Comment on above: Performed By: #### 2 4321-2 #### JONAH ANDERSON ([id number]) [facility] ([facility]) [address] [place] [address] 52348 Urea nitrogen [Mass/Vol] 15 mg/dL Normal 6-23 [facility] Comment on above: Performed By: #### 2 4321-2 #### JONAH ANDERSON ([id number]) [facility] ([facility]) [address] [place] [address] 20306 CBC W Auto Differential pane l (Bld)on 03-21-2024 Basophils (Bld) [#/Vol] 0.06 x10*3/uL Normal 0.00-0.10 [facility] Comment on above: Performed By: #### 5 7021-8 #### JONAH ANDERSON ([id number]) [facility] ([facility]) [address] [place] [address] 22530 Basophils/100 WBC (Bld) 0.7 % Normal 0.0-2.0 [facility] Comment on above: Performed By: #### 5 7021-8 #### JONAH ANDERSON ([id number]) [facility] ([facility]) [address] [place] [address] 15153 Eosinophils (Bld) [#/Vol] 0.36 x10*3/uL Normal 0.00-0.70 [facility] Comment on above: Performed By: #### 5 7021-8 #### JONAH ANDERSON ([id number]) [facility] ([facility]) [address] [place] [address] 68948 Eosinophils/100 WBC (Bld) 4.1 % Normal 0.0-6.0 [facility] Comment on above: Performed By: #### 5 7021-8 #### JONAH ANDERSON ([id number]) [facility] ([facility]) [address] [place] [address] Erythrocyte distribution width (RBC) [Ratio] 12.0 % Normal 11.5-14.5 [facility] Comment on above: Performed By: #### 5 7021-8 #### JONAH ANDERSON ([id number]) [facility] ([facility]) [address] [place] [address] Hematocrit (Bld) [Volume fraction] 39.9 % Normal 36.0-46.0 [facility] Comment on above: Performed By: #### 5 7021-8 #### JONAH ANDERSON ([id number]) [facility] ([facility]) [address] [place] [address] Hemoglobin (Bld) [Mass/Vol] 13.3 g/dL Normal 12.0-16.0 [facility] Comment on above: Performed By: #### 5 7021-8 #### JONAH ANDERSON ([id number]) [facility] ([facility]) [address] [place] [address] Immature granulocytes (Bld) [#/Vol] 0.06 x10*3/uL Normal 0.00-0.70 [facility] Comment on above: Performed By: #### 5 7021-8 #### JONAH ANDERSON ([id number]) [facility] ([facility]) [address] [place], [place] [id number] Immature granulocytes/100 WBC (Bld) 0.7 % Normal 0.0-0.9 [facility] Comment on above: Result Comment: Erika ture Granulocyte Count (IG) includes promyelocytes, myelocytes and metamyelocytes but does not include bands. Percent differential counts (%) should be interpreted in the context of the absolute cell counts (cells/UL). Performed By: #### 5 7021-8 #### JONAH ANDERSON ([id number]) [facility] ([facility]) [address] [place] [address] Lymphocytes (Bld) [#/Vol] 2.06 x10*3/uL Normal 1.20-4.80 [facility] Comment on above: Performed By: #### 5 7021-8 #### JONAH ANDERSON ([id number]) [facility] ([facility]) [address] [place] [address] 99803 Lymphocytes/100 WBC (Bld) 23.3 % Normal 13.0-44.0 [facility] Comment on above: Performed By: #### 5 7021-8 #### JONAH ANDERSON ([id number]) [facility] ([facility]) [address] [place] [address] 17029 MCH (RBC) [Entitic mass] 31.9 pg Normal 26.0-34.0 [facility] Comment on above: Performed By: #### 5 7021-8 #### JONAH ANDERSON ([id number]) [facility] ([facility]) [address] [place] [address] 95977 MCHC (RBC) [Mass/Vol] 33.3 g/dL Normal 32.0-36.0 [facility] Comment on above: Performed By: #### 5 7021-8 #### JONAH ANDERSON ([id number]) [facility] ([facility]) [address] [place] [address] 03530 MCV (RBC) [Entitic vol] 96 fL Normal 80-100 [facility] Comment on above: Performed By: #### 5 7021-8 #### JONAH ANDERSON ([id number]) [facility] ([facility]) [address] [place] [address] 83942 Monocytes (Bld) [#/Vol] 0.70 x10*3/uL Normal 0.10-1.00 [facility] Comment on above: Performed By: #### 5 7021-8 #### JONAH ANDERSON ([id number]) [facility] ([facility]) [address] [place] [address] 55760 Monocytes/100 WBC (Bld) 7.9 % Normal 2.0-10.0 [facility] Comment on above: Performed By: #### 5 7021-8 #### JONAH ANDERSON ([id number]) [facility] ([facility]) [address] [place] [address] 46166 Neutrophils (Bld) [#/Vol] 5.60 x10*3/uL Normal 1.20-7.70 [facility] Comment on above: Result Comment: Perc ent differential counts (%) should be interpreted in the context of the absolute cell counts (cells/uL). Performed By: #### 5 7021-8 #### JONAH ANDERSON ([id number]) [facility] ([facility]) [address] [place] [address] 41191 Neutrophils/100 WBC (Bld) 63.3 % Normal 40.0-80.0 [facility] Comment on above: Performed By: #### 5 7021-8 #### JONAH ANDERSON ([id number]) [facility] ([facility]) [address] [place] [address] 74907 Nucleated RBC/100 WBC (Bld) [Ratio] 0.0 /100 WBCs Normal 0.0-0.0 [facility] Comment on above: Performed By: #### 5 7021-8 #### JONAH ANDERSON ([id number]) [facility] ([facility]) [address] [place] [address] 51478 Platelets (Bld) [#/Vol] 201 x10*3/uL Normal 150-450 [facility] Comment on above: Performed By: #### 5 7021-8 #### JONAH ANDERSON ([id number]) [facility] ([facility]) [address] [place] [address] 10821 RBC (Bld) [#/Vol] 4.17 x10*6/uL Normal 4.00-5.20 [facility] Comment on above: Performed By: #### 5 7021-8 #### JONAH ANDERSON ([id number]) [facility] ([facility]) [address] [place] [address] 55952 WBC (Bld) [#/Vol] 8.8 x10*3/uL Normal 4.4-11.3 [facility] Comment on above: Performed By: #### 5 7021-8 #### JONAH ANDERSON ([id number]) [facility] ([facility]) [address] [place] [address] HbA1c (Bld) [Mass fraction]o n 03-21-2024 Average glucose Estimated from glycated hemoglobin (Bld) [Mass/Vol] 111 mg/dL Normal Not Established [facility] Comment on above: Order Comment: Diagn osis of Diabetes-Adults Non-Diabetic: < or = 5.6% Increased risk for developing diabetes: 5.7-6.4% Diagnostic of diabetes: > or = 6.5% Performed By: #### 4 548-4 #### TREVON Marie ([id number]) [facility] ([facility]) [address] [place] [address] Hemoglobin A1c/Hemoglobin.to goran 03-21-2024 HbA1c (Bld) [Mass fraction] 5.5 % Normal See comment [facility] Comment on above: Order Comment: Diagn osis of Diabetes-Adults Non-Diabetic: < or = 5.6% Increased risk for developing diabetes: 5.7-6.4% Diagnostic of diabetes: > or = 6.5% Performed By: #### 4 548-4 #### TREVON Marie ([id number]) [facility] ([facility]) [address] [place] [address] Plastic Surgery Visit Report on 03-03-2024 [address] Surgery Visit Report [facility] [address], [address] [place], [place] [id number] OFFICE VISIT Date of Service: 03/03/24 MR#: [id number] Acct: [id number] Name: IRENE LOPEZ Rep #: [id number] : 1975 Provider: Dr. Marlon Allen MD Age/Sex: 48/F Location: [facility] Status: Signed Intake Vital Signs 12/03/23 16:17 [...] 03/28/22 03/03/24 History Nurse's Note: [facility] History Deformity of reconstructed breast GERD [...] breast reconstruction with removal of saline tissue roller stainer with replacement cohesive gel implant (630 ml) and placement of MTF FlexHD acellular dermal matrix graft, (Pliable Shaped Perforated, Large, Thick, 13x22 cm, 2 pieces) and revision reconstructed right breast with superior capsulotomy and excision excess mastectomy skin contour deformity laterally and revision asymmetric inframammary fold with internal capsular plication She has concerns about the (more content not included)... Normal [facility] Cervical AND or Vaginal cyto logy studyon 03-01-2024 Cytology Cervical or vaginal smear or scraping study Pathology report.total SEE COMMENT Gynecologic Cytology Case: [id number] Authorizing Provider: Zenaida Silva MD Collected: 03/01/2024 9799 Ordering Location: [facility] Received: 03/01/2024 1542 Office Building First [...] Slide(s) initially screened by JUDY Krueger at [facility] [address] [facility] [id number] QC review performed by JUDY Amin at [facility] [address] [place] [phone] By the signature on this report, the individual or group listed as making the Final Interpretation/Diagnosis certifies that they have reviewed this case. This specimen has been analyzed by the [employer] Imaging System ([employer] an automated imaging and review system, which assists the laboratory in evaluating cells on ThinPrep Pap tests. Following automated imaging, selected pierce from every slide were reviewed by a stake driver and/or pathologist. Cervical cytology is a screening [...] LAB AP PREVIOUS ABNORMAL HISTORY LSIL Normal [facility] CTA Abd/Pelvis W/WO Contrast on 01-04-2024 CTA Abd/Pelvis W/WO Contrast [facility] Imaging Services [address] [place], [place] [id number] CTA Abd/Pelvis W/WO Contrast MR#: [id number] Acct: [id number] Name: IRENE LOPEZ Rep #: [id number] : 1975 F 48 From: [facility] PCP: Dr. Amanda Osborne MD Status: REG CL Study: CTA Abd/Pelvis W/WO Contrast Date of Exam: Exam# [id number] Ordering Dr: Rachel Beard NP SOCIAL SERVICES COUNSELOR-C [id number] INDICATION: MICHELLE procedure for Abdominal wall perforators [...] CC: FLETCHER Beard; Dr. Amanda Osborne MD Payroll Clerk: Signed Normal [facility] Plastic Surgery Visit Report on 12-17-2023 Plastic Surgery Visit Report [facility] [address], [address] [place] [address] OFFICE VISIT Date of Service: 12/17/23 MR#: [id number] Acct: [id number] Name: IRENE LOPEZ Rep #: [id number] : 1975 Provider: Dr. Marlon Allen MD Age/Sex: 47/F Location[facility] Status: Signed Intake Vital [...] Nurse's Note: FU to discuss breast reconstruction [facility] Medical History Deformity of reconstructed breast GERD [...] excess mastect (more content not included)... Normal [facility] Plastic Surgery Visit Report on 12-03-2023 [address] Surgery Visit Report [facility] [address], [address] [place] [address] OFFICE VISIT Date of Service: 12/03/23 MR#: [id number] Acct: [id number] Name: IRENE LOPEZ Rep #: [id number] : 1975 Provider: Dr. Marlon Allen MD Age/Sex: 47/F Location: [facility] Status: Signed with Addenda ADDENDUM by Dr. [...] breast reconstruction with removal of saline tissue roller stainer with replacement cohesive gel implant (630 ml) [...] right. She (more content not included)... Normal [facility] Basophil percentageOrdered B y: Rachel Beard on 01-23-2023 Chloride [Moles/Vol] 106 mmol/L 98-107 [facility] Glucose [Mass/Vol] 114 mg/dL 74-106 [facility] Comment on above: Fasting Glucose resu lt from 100 to 125 mg/dL suggests IMPAIRED HOMEOSTASIS per A.D.A. criteria. Potassium [Moles/Vol] 4.1 mmol/L 3.5-5.1 [facility] Sodium [Moles/Vol] 141 mmol/L 136-145 [facility] WBC (Bld) [#/Vol] 9.3 10*3/uL 4.4-11.0 [facility] Blood erythrocytes count (nu mber/volume)Ordered By: Rachel Beard on 01-23-2023 RBC (Bld) [#/Vol] 3.68 10*6/uL 4.2-5.4 [facility] Blood hemoglobin measurement (mass/volume)Ordered By: Rachel Beard on 01-23-2023 Hemoglobin (Bld) [Mass/Vol] 11.5 g/dL 12.0-15.0 [facility] Blood platelet mean volumeOr dered By: Rachel Beard on 01-23-2023 Platelet mean volume (Bld) [Entitic vol] 11.3 fL 6.2-12.0 [facility] Determination of erythrocyte mean corpuscular volume (MCV)Ordered By: Rachel Beard on 01-23-2023 MCV (RBC) [Entitic vol] 100.5 fL 81-99 [facility] Hematocrit Auto (Bld) [Volum e fraction]Ordered By: Rachel Beard on 01-23-2023 Hematocrit (Bld) [Volume fraction] 37.0 % 37-47 [facility] Laboratory - Chemistry and C hemistry - challengeOrdered By: Rachel Beard on 01-23-2023 CO2 [Moles/Vol] 30.0 mmol/L 21.0-32.0 [facility] Urea nitrogen/Creatinine [Mass ratio] 20.0 mg/mg 10-20 [facility] Laboratory - Hematology and Cell countsOrdered By: Rachel Beard on 01-23-2023 Erythrocyte distribution width (RBC) [Entitic vol] 47.8 fL 35.1-43.9 [facility] Erythrocyte distribution width (RBC) [Ratio] 12.9 % 11.6-14.6 [facility] MCH (RBC) [Entitic mass] 31.3 pg 27.0-32.0 [facility] MCHC Auto (RBC) [Mass/Vol]Or dered By: Rachel Beard on 01-23-2023 MCHC (RBC) [Mass/Vol] 31.1 g/dL 32-36 [facility] No Panel InformationOrdered By: Rachel Beard on 01-23-2023 Estimated Creatinine Clearance Calc 84.94 ml/min [facility] Estimated GFR (MDRD) Amer 105 mL/min >60 [facility] Comment on above: GFR Calc Estimated GFR (MDRD) Non-Af Amer 87 mL/min >60 [facility] Comment on above: Non- GFR Calc Platelets bldOrdered By: Iggy Beard on 01-23-2023 Platelets (Bld) [#/Vol] 189 10*3/uL 150-450 [facility] Serum or plasma calcium deneen urement (mass/volume)Ordered By: Rachel Beard on 01-23-2023 Calcium [Mass/Vol] 8.4 mg/dL 8.5-10.1 [facility] Serum or plasma creatinine m easurement (mass/volume)Ordered By: Rachel Beard on 01-23-2023 Creatinine [Mass/Vol] 0.75 mg/dL 0.55-1.02 [facility] Comment on above: The validity of the calculated GFR & GFRAA in patients over 70 years has not been determined. Clinical correlation is essential. Serum or plasma urea nitroge n measurement (mass/volume)Ordered By: Rachel Beard on 01-23-2023 Urea nitrogen [Mass/Vol] 15 mg/dL 7-18 [facility] Thin prep Papanicolaou smear with manual screeningOrdered By: Rachel Beard on 01-23-2023 Thin prep Papanicolaou smear with manual screening 5 5-15 [facility] Serum or plasma transthyreti n measurement (mass/volume)Ordered By: Zenaida Barrett on 01-22-2023 Prealbumin [Mass/Vol] 20.8 mg/dL 20.0-40.0 [facility] Serum or plasma trough vanco mycin levelOrdered By: Zenaida Barrett on 01-22-2023 Vancomycin trough [Mass/Vol] 8.0 ug/mL 5.0-15.0 [facility] Comment on above: VANCOMYCIN STANDARED DRUG THERAPY TROUGH LEVEL: 5.0 - 15.0 mg/L VANCOMYCIN HIGH INTENSITY THERAPY TROUGH LEVEL: 15.0 - 20.0 mg/L High Intensity therapy recommended for serious lifethreatening infections include:- Ycpiwqadrf-Djtgcdzffiju-Fvjumdrbb (Ventilator/Healtcare Associated)-Sepsis PLEASE CONTACT PHARMACY SERVICES (#[id number]) FOR INTERPRETATIONOF RESULTS. Glucose Glucometer (BldC) [M ass/Vol]Ordered By: Zenaida Barrett on 01-21-2023 Glucose [Mass/Vol] 83 mg/dL 74-106 [facility] Comment on above: MANAGEMENT OF PATIEN T CARE PER NURSING PROTOCOL Gram stain for investigation of transfusion reactionOrdered By: Zenaida Barrett on 01-21-2023 Microscopic observation Gram stain Nom (Unsp spec) [facility] Laboratory - Chemistry and C hemistry - challengeOrdered By: Zenaida Barrett on 11-03-2023 Magnesium [Mass/Vol] 2.3 mg/dL 1.6-2.6 [facility] Basophil percentageOrdered B y: Rachel Beard on 10-23-2022 Bilirubin [Mass/Vol] 0.20 mg/dL 0.20-1.00 [facility] Comment on above: For patients on eltr ombopag therapy, use of Dimension Sadler TBIL is not recommended. Chloride [Moles/Vol] 105 mmol/L 98-107 [facility] Glucose [Mass/Vol] 151 mg/dL 74-106 [facility] Comment on above: Fasting Glucose resu lt greater than or equal to 126 mg/dL suggests DIABETES MELLITUS per A.D.A. criteria. Potassium [Moles/Vol] 3.9 mmol/L 3.5-5.1 [facility] Comment on above: Slight Hemolysis, Re sult may be falsely increased. Protein [Mass/Vol] 7.5 g/dL 6.4-8.2 [facility] Sodium [Moles/Vol] 138 mmol/L 136-145 [facility] Laboratory - Chemistry and C hemistry - challengeOrdered By: Rachel Beard on 10-23-2022 ALP [Catalytic activity/Vol] 130 U/L 45-117 [facility] ALT [Catalytic activity/Vol] 21 U/L 13-56 [facility] CO2 [Moles/Vol] 27.0 mmol/L 21.0-32.0 [facility] Globulin (S) [Mass/Vol] 4.0 g/dL 2.2-4.2 [facility] Urea nitrogen/Creatinine [Mass ratio] 28.3 mg/mg 10-20 [facility] No Panel InformationOrdered By: Rachel Beard on 10-23-2022 Estimated GFR (MDRD) Amer 102 mL/min >60 [facility] Comment on above: GFR Calc Estimated GFR (MDRD) Non-Af Amer 84 mL/min >60 [facility] Comment on above: Non- GFR Calc Serum or plasma albumin deneen urement (mass/volume)Ordered By: Rachel Beard on 10-23-2022 Albumin [Mass/Vol] 3.5 g/dL 3.2-5.0 [facility] Serum or plasma albumin/glob ulin mass ratioOrdered By: Rachel Beard on 10-23-2022 Albumin/Globulin [Mass ratio] 0.9 {ratio} 0.9-2.4 [facility] Serum or plasma calcium deneen urement (mass/volume)Ordered By: Rachel Beard on 10-23-2022 Calcium [Mass/Vol] 9.2 mg/dL 8.5-10.1 [facility] Serum or plasma creatinine m easurement (mass/volume)Ordered By: Rachel Beard on 10-23-2022 Creatinine [Mass/Vol] 0.78 mg/dL 0.55-1.02 [facility] Comment on above: The validity of the calculated GFR & GFRAA in patients over 70 years has not been determined. Clinical correlation is essential. Serum or plasma urea nitroge n measurement (mass/volume)Ordered By: Rachel Beard on 10-23-2022 Urea nitrogen [Mass/Vol] 22 mg/dL 7-18 [facility] Thin prep Papanicolaou smear with manual screeningOrdered By: Rachel Beard on 10-23-2022 Thin prep Papanicolaou smear with manual screening 16 U/L 15-37 [facility] Comment on above: Slight Hemolysis, Re sult may be falsely increased. Thin prep Papanicolaou smear with manual screening 6 5-15 [facility] Basophil percentageOrdered B y: Zenaida Barrett on 10-05-2022 Chloride [Moles/Vol] 106 mmol/L 98-107 [facility] Glucose [Mass/Vol] 107 mg/dL 74-106 [facility] Comment on above: Slight Lipemia, Resu lt may be falsely increased.Fasting Glucose result from 100 to 125 mg/dL suggests IMPAIRED HOMEOSTASIS per A.D.A. criteria. Potassium [Moles/Vol] 4.0 mmol/L 3.5-5.1 [facility] Comment on above: Slight Hemolysis, Re sult may be falsely increased.-Slight Lipemia, Result may be falsely increased. Sodium [Moles/Vol] 140 mmol/L 136-145 [facility] WBC (Bld) [#/Vol] 10.7 10*3/uL 4.4-11.0 [facility] Blood erythrocytes count (nu mber/volume)Ordered By: Zenaida Barrett on 10-05-2022 RBC (Bld) [#/Vol] 3.44 10*6/uL 4.2-5.4 [facility] Blood hemoglobin measurement (mass/volume)Ordered By: Zenaida Barrett on 10-05-2022 Hemoglobin (Bld) [Mass/Vol] 11.1 g/dL 12.0-15.0 [facility] Blood platelet mean volumeOr dered By: Zenaida Barrett on 10-05-2022 Platelet mean volume (Bld) [Entitic vol] 11.6 fL 6.2-12.0 [facility] Determination of erythrocyte mean corpuscular volume (MCV)Ordered By: Zenaida Barrett on 10-05-2022 MCV (RBC) [Entitic vol] 98.8 fL 81-99 [facility] Hematocrit Auto (Bld) [Volum e fraction]Ordered By: Zenaida Barrett on 10-05-2022 Hematocrit (Bld) [Volume fraction] 34.0 % 37-47 [facility] Laboratory - Chemistry and C hemistry - challengeOrdered By: Zenaida Barrett on 10-05-2022 CO2 [Moles/Vol] 29.0 mmol/L 21.0-32.0 [facility] Comment on above: Slight Lipemia, Resu lt may be falsely increased. Urea nitrogen/Creatinine [Mass ratio] 21.0 mg/mg 10-20 [facility] Laboratory - Hematology and Cell countsOrdered By: Zenaida Barrett on 10-05-2022 Erythrocyte distribution width (RBC) [Entitic vol] 46.0 fL 35.1-43.9 [facility] [place] Erythrocyte distribution width (RBC) [Ratio] 12.9 % 11.6-14.6 [facility] [place] MCH (RBC) [Entitic mass] 32.3 pg 27.0-32.0 [facility] [place] MCHC Auto (RBC) [Mass/Vol]Or dered By: Zenaida Barrett on 10-05-2022 MCHC (RBC) [Mass/Vol] 32.6 g/dL 32-36 [facility] No Panel InformationOrdered By: Zenaida Barrett on 10-05-2022 Estimated Creatinine Clearance Calc 84.75 ml/min [facility] [place] Estimated GFR (MDRD) Amer 104 mL/min >60 [facility] [place] Comment on above: GFR Calc Estimated GFR (MDRD) Non-Af Amer 86 mL/min >60 [facility] [place] Comment on above: Non- GFR Calc Platelets bldOrdered By: Dominik Barrett on 10-05-2022 Platelets (Bld) [#/Vol] 194 10*3/uL 150-450 [facility] [place] Serum or plasma calcium deneen urement (mass/volume)Ordered By: Zenaida Barrett on 10-05-2022 Calcium [Mass/Vol] 8.4 mg/dL 8.5-10.1 [facility] Comment on above: Slight Lipemia, Resu lt may be falsely increased. Serum or plasma creatinine m easurement (mass/volume)Ordered By: Zenaida Barrett on 10-05-2022 Creatinine [Mass/Vol] 0.76 mg/dL 0.55-1.02 [facility] Comment on above: Slight Lipemia, Resu lt may be falsely increased.The validity of the calculated GFR & GFRAA in patients over 70 years has not been determined. Clinical correlation is essential. Serum or plasma urea nitroge n measurement (mass/volume)Ordered By: Zenaida Barrett on 10-05-2022 Urea nitrogen [Mass/Vol] 16 mg/dL 7-18 [facility] [place] Comment on above: Slight Lipemia, Resu lt may be falsely increased. Thin prep Papanicolaou smear with manual screeningOrdered By: Zenaida Barrett on 10-05-2022 Thin prep Papanicolaou smear with manual screening 5 5-15 [facility] [place] Serum or plasma transthyreti n measurement (mass/volume)Ordered By: Zenaida Barrett on 10-04-2022 Prealbumin [Mass/Vol] 25.3 mg/dL 20.0-40.0 [facility] Vancomycin troughOrdered By: Zenaida Barrett on 10-04-2022 Vancomycin trough [Mass/Vol] 9.6 ug/mL 5.0-15.0 [facility] [place] Comment on above: VANCOMYCIN STANDARED DRUG THERAPY TROUGH LEVEL: 5.0 - 15.0 mg/L VANCOMYCIN HIGH INTENSITY THERAPY TROUGH LEVEL: 15.0 - 20.0 mg/L High Intensity therapy recommended for serious lifethreatening infections include:- Dekeidqrrc-Panpjdgahwed-Xzfhcjczr (Ventilator/Healtcare Associated)-Sepsis PLEASE CONTACT PHARMACY SERVICES (#[id number]) FOR INTERPRETATIONOF RESULTS. Glucose Glucometer (BldC) [M ass/Vol]Ordered By: Zenaida Barrett on 10-03-2022 Glucose [Mass/Vol] 83 mg/dL 74-106 [facility] Comment on above: MANAGEMENT OF PATIEN T CARE PER NURSING PROTOCOL Laboratory - Chemistry and C hemistry - challengeOrdered By: Manuel Fuller on 10-03-2022 Magnesium [Mass/Vol] 2.0 mg/dL 1.6-2.6 [facility] Basophil percentageOrdered B y: Rachel Beard on 09-23-2022 Bilirubin [Mass/Vol] 0.40 mg/dL 0.20-1.00 [facility] Comment on above: For patients on eltr ombopag therapy, use of Dimension Sadler TBIL is not recommended. Chloride [Moles/Vol] 110 mmol/L 98-107 [facility] Glucose [Mass/Vol] 137 mg/dL 74-106 [facility] Comment on above: Fasting Glucose resu lt greater than or equal to 126 mg/dL suggests DIABETES MELLITUS per A.D.A. criteria. Potassium [Moles/Vol] 3.9 mmol/L 3.5-5.1 [facility] Comment on above: Slight Hemolysis, Re sult may be falsely increased. Protein [Mass/Vol] 7.4 g/dL 6.4-8.2 [facility] Sodium [Moles/Vol] 140 mmol/L 136-145 [facility] WBC (Bld) [#/Vol] 6.6 10*3/uL 4.4-11.0 [facility] Blood erythrocytes count (nu mber/volume)Ordered By: Rachel Beard on 09-23-2022 RBC (Bld) [#/Vol] 4.04 10*6/uL 4.2-5.4 [facility] Blood hemoglobin measurement (mass/volume)Ordered By: Rachel Beard on 09-23-2022 Hemoglobin (Bld) [Mass/Vol] 13.1 g/dL 12.0-15.0 [facility] [place] Blood platelet mean volumeOr dered By: Rachel Beard on 09-23-2022 Platelet mean volume (Bld) [Entitic vol] 11.5 fL 6.2-12.0 [facility] [place] Determination of erythrocyte mean corpuscular volume (MCV)Ordered By: Rachel Beard on 09-23-2022 MCV (RBC) [Entitic vol] 93.3 fL 81-99 [facility] [place] Hematocrit Auto (Bld) [Volum e fraction]Ordered By: Rachel Beard on 09-23-2022 Hematocrit (Bld) [Volume fraction] 37.7 % 37-47 [facility] [place] Laboratory - Chemistry and C hemistry - challengeOrdered By: Rachel Beard on 09-23-2022 ALP [Catalytic activity/Vol] 113 U/L 45-117 [facility] [place] ALT [Catalytic activity/Vol] 21 U/L 13-56 [facility] [place] CO2 [Moles/Vol] 25.0 mmol/L 21.0-32.0 [facility] [place] Globulin (S) [Mass/Vol] 3.7 g/dL 2.2-4.2 [facility] [place] Urea nitrogen/Creatinine [Mass ratio] 22.0 mg/mg 10-20 [facility] [place] Laboratory - Hematology and Cell countsOrdered By: Rachel Beard on 09-23-2022 Erythrocyte distribution width (RBC) [Entitic vol] 43.1 fL 35.1-43.9 [facility] [place] Erythrocyte distribution width (RBC) [Ratio] 12.6 % 11.6-14.6 [facility] [place] MCH (RBC) [Entitic mass] 32.4 pg 27.0-32.0 [facility] [place] MCHC Auto (RBC) [Mass/Vol]Or dered By: Rachel Beard on 09-23-2022 MCHC (RBC) [Mass/Vol] 34.7 g/dL 32-36 [facility] No Panel InformationOrdered By: Rachel Beard on 09-23-2022 Estimated GFR (MDRD) Amer 85 mL/min >60 [facility] [place] Comment on above: GFR Calc Estimated GFR (MDRD) Non-Af Amer 70 mL/min >60 [facility] [place] Comment on above: Non- GFR Calc Platelets bldOrdered By: Iggy Beard on 09-23-2022 Platelets (Bld) [#/Vol] 223 10*3/uL 150-450 [facility] [place] Serum or plasma albumin deneen urement (mass/volume)Ordered By: Rachel Beard on 09-23-2022 Albumin [Mass/Vol] 3.7 g/dL 3.2-5.0 [facility] Serum or plasma albumin/glob ulin mass ratioOrdered By: Rachel Beard on 09-23-2022 Albumin/Globulin [Mass ratio] 1.0 {ratio} 0.9-2.4 [facility] [place] Serum or plasma calcium deneen urement (mass/volume)Ordered By: Rachel Beard on 09-23-2022 Calcium [Mass/Vol] 8.4 mg/dL 8.5-10.1 [facility] Serum or plasma creatinine m easurement (mass/volume)Ordered By: Rachel Beard on 09-23-2022 Creatinine [Mass/Vol] 0.91 mg/dL 0.55-1.02 [facility] Comment on above: The validity of the calculated GFR & GFRAA in patients over 70 years has not been determined. Clinical correlation is essential. Serum or plasma urea nitroge n measurement (mass/volume)Ordered By: Rachel Beard on 09-23-2022 Urea nitrogen [Mass/Vol] 20 mg/dL 7-18 [facility] [place] Thin prep Papanicolaou smear with manual screeningOrdered By: Rachel Beard on 09-23-2022 Thin prep Papanicolaou smear with manual screening 25 U/L 15-37 [facility] [place] Comment on above: Slight Hemolysis, Re sult may be falsely increased. Thin prep Papanicolaou smear with manual screening 5 5-15 [facility] [place] Basophil percentageOrdered B y: Rachel Beard on 07-24-2022 Bilirubin [Mass/Vol] 0.30 mg/dL 0.20-1.00 [facility] Comment on above: For patients on eltr ombopag therapy, use of Dimension Sadler TBIL is not recommended. Chloride [Moles/Vol] 107 mmol/L 98-107 [facility] Glucose [Mass/Vol] 103 mg/dL 74-106 [facility] Comment on above: Fasting Glucose resu lt from 100 to 125 mg/dL suggests IMPAIRED HOMEOSTASIS per A.D.A. criteria. Potassium [Moles/Vol] 4.1 mmol/L 3.5-5.1 [facility] Protein [Mass/Vol] 7.3 g/dL 6.4-8.2 [facility] Sodium [Moles/Vol] 140 mmol/L 136-145 [facility] WBC (Bld) [#/Vol] 7.3 10*3/uL 4.4-11.0 [facility] Blood erythrocytes count (nu mber/volume)Ordered By: Rachel Beard on 07-24-2022 RBC (Bld) [#/Vol] 4.01 10*6/uL 4.2-5.4 [facility] Blood hemoglobin measurement (mass/volume)Ordered By: Rachel Beard on 07-24-2022 Hemoglobin (Bld) [Mass/Vol] 12.5 g/dL 12.0-15.0 [facility] [place] Blood platelet mean volumeOr dered By: Rachel Beard on 07-24-2022 Platelet mean volume (Bld) [Entitic vol] 11.0 fL 6.2-12.0 [facility] [place] Determination of erythrocyte mean corpuscular volume (MCV)Ordered By: Rachel Beard on 07-24-2022 MCV (RBC) [Entitic vol] 94.8 fL 81-99 [facility] [place] Hematocrit Auto (Bld) [Volum e fraction]Ordered By: Rachel Beard on 07-24-2022 Hematocrit (Bld) [Volume fraction] 38.0 % 37-47 [facility] [place] Laboratory - Chemistry and C hemistry - challengeOrdered By: Rachel Beard on 07-24-2022 ALP [Catalytic activity/Vol] 114 U/L 45-117 [facility] [place] ALT [Catalytic activity/Vol] 23 U/L 13-56 [facility] [place] CO2 [Moles/Vol] 26.0 mmol/L 21.0-32.0 [facility] [place] Globulin (S) [Mass/Vol] 3.4 g/dL 2.2-4.2 [facility] [place] Urea nitrogen/Creatinine [Mass ratio] 27.4 mg/mg 10-20 [facility] [place] Laboratory - Hematology and Cell countsOrdered By: Rachel Beard on 07-24-2022 Erythrocyte distribution width (RBC) [Entitic vol] 43.9 fL 35.1-43.9 [facility] [place] Erythrocyte distribution width (RBC) [Ratio] 12.7 % 11.6-14.6 [facility] [place] MCH (RBC) [Entitic mass] 31.2 pg 27.0-32.0 [facility] [place] MCHC Auto (RBC) [Mass/Vol]Or dered By: Rachel Beard on 07-24-2022 MCHC (RBC) [Mass/Vol] 32.9 g/dL 32-36 [facility] No Panel InformationOrdered By: Rachel Beard on 07-24-2022 Estimated GFR (MDRD) Amer 109 mL/min >60 [facility] [place] Comment on above: GFR Calc Estimated GFR (MDRD) Non-Af Amer 90 mL/min >60 [facility] [place] Comment on above: Non- GFR Calc Platelets bldOrdered By: Iggy Beard on 07-24-2022 Platelets (Bld) [#/Vol] 218 10*3/uL 150-450 [facility] [place] Serum or plasma albumin deneen urement (mass/volume)Ordered By: Rachel Beard on 07-24-2022 Albumin [Mass/Vol] 3.9 g/dL 3.2-5.0 [facility] Serum or plasma albumin/glob ulin mass ratioOrdered By: Rachel Beard on 07-24-2022 Albumin/Globulin [Mass ratio] 1.1 {ratio} 0.9-2.4 [facility] [place] Serum or plasma calcium deneen urement (mass/volume)Ordered By: Rachel Beard on 07-24-2022 Calcium [Mass/Vol] 9.3 mg/dL 8.5-10.1 [facility] Serum or plasma creatinine m easurement (mass/volume)Ordered By: Rachel Beard on 07-24-2022 Creatinine [Mass/Vol] 0.73 mg/dL 0.55-1.02 [facility] Comment on above: The validity of the calculated GFR & GFRAA in patients over 70 years has not been determined. Clinical correlation is essential. Serum or plasma urea nitroge n measurement (mass/volume)Ordered By: Rachel Beard on 07-24-2022 Urea nitrogen [Mass/Vol] 20 mg/dL 7-18 [facility] [place] Thin prep Papanicolaou smear with manual screeningOrdered By: Rachel Beard on 07-24-2022 Thin prep Papanicolaou smear with manual screening 17 U/L 15-37 [facility] [place] Thin prep Papanicolaou smear with manual screening 7 5-15 [facility] [place] Fungus stainOrdered By: Dr. Barrett on 06-11-2022 Fungus identified Fungus stain Nom (Unsp spec) [facility] [place] Fungus identified Fungus stain Nom (Unsp spec) [facility] [place] Anaerobic cultureOrdered By: Dr. Barrett on 06-02-2022 Bacteria identified Anaer cx Nom (Unsp spec) No anaerobic bacteria isolated. [facility] [place] Basophil percentageOrdered B y: Dr. Barrett on 06-02-2022 WBC (Bld) [#/Vol] 6.1 10*3/uL 4.4-11.0 [facility] Blood erythrocytes count (nu mber/volume)Ordered By: Dr. Barrett on 06-02-2022 RBC (Bld) [#/Vol] 3.35 10*6/uL 4.2-5.4 [facility] Blood hemoglobin measurement (mass/volume)Ordered By: Dr. Barrett on 06-02-2022 Hemoglobin (Bld) [Mass/Vol] 10.4 g/dL 12.0-15.0 [facility] [place] Blood platelet mean volumeOr dered By: Dr. Barrett on 06-02-2022 Platelet mean volume (Bld) [Entitic vol] 10.4 fL 6.2-12.0 [facility] [place] Determination of erythrocyte mean corpuscular volume (MCV)Ordered By: Dr. Barrett on 06-02-2022 MCV (RBC) [Entitic vol] 99.4 fL 81-99 [facility] [place] Hematocrit Auto (Bld) [Volum e fraction]Ordered By: Dr. Barrett on 06-02-2022 Hematocrit (Bld) [Volume fraction] 33.3 % 37-47 [facility] [place] Laboratory - Hematology and Cell countsOrdered By: Dr. Barrett on 06-02-2022 Erythrocyte distribution width (RBC) [Entitic vol] 46.2 fL 35.1-43.9 [facility] [place] Erythrocyte distribution width (RBC) [Ratio] 12.8 % 11.6-14.6 [facility] [place] MCH (RBC) [Entitic mass] 31.0 pg 27.0-32.0 [facility] [place] MCHC Auto (RBC) [Mass/Vol]Or dered By: Dr. Barrett on 06-02-2022 MCHC (RBC) [Mass/Vol] 31.2 g/dL 32-36 [facility] Platelets bldOrdered By: Dr. Barrett on 06-02-2022 Platelets (Bld) [#/Vol] 210 10*3/uL 150-450 [facility] [place] Bacteria identified Cx Nom ( Wound)Ordered By: Dr. Barrett on 06-01-2022 Wound Culture Staphylococcus epidermidis [facility] [place] Basophil percentageOrdered B y: Dr. Barrett on 05-31-2022 Chloride [Moles/Vol] 107 mmol/L 98-107 [facility] Glucose [Mass/Vol] 113 mg/dL 74-106 [facility] Comment on above: Fasting Glucose resu lt from 100 to 125 mg/dL suggests IMPAIRED HOMEOSTASIS per A.D.A. criteria. Potassium [Moles/Vol] 4.3 mmol/L 3.5-5.1 [facility] Sodium [Moles/Vol] 142 mmol/L 136-145 [facility] Gram stain for investigation of transfusion reactionOrdered By: Dr. Barrett on 05-31-2022 Microscopic observation Gram stain Nom (Unsp spec) [facility] [place] Laboratory - Chemistry and C hemistry - challengeOrdered By: Dr. Barrett on 05-31-2022 CO2 [Moles/Vol] 28.0 mmol/L 21.0-32.0 [facility] [place] Urea nitrogen/Creatinine [Mass ratio] 18.9 mg/mg 10-20 [facility] [place] No Panel InformationOrdered By: Dr. Barrett on 05-31-2022 Estimated Creatinine Clearance Calc 93.34 ml/min [facility] [place] Estimated GFR (MDRD) Amer 117 mL/min >60 [facility] [place] Comment on above: GFR Calc Estimated GFR (MDRD) Non-Af Amer 97 mL/min >60 [facility] [place] Comment on above: Non- GFR Calc Serum or plasma calcium deneen urement (mass/volume)Ordered By: Dr. Barrett on 05-31-2022 Calcium [Mass/Vol] 8.7 mg/dL 8.5-10.1 [facility] Serum or plasma creatinine m easurement (mass/volume)Ordered By: Dr. Barrett on 05-31-2022 Creatinine [Mass/Vol] 0.69 mg/dL 0.55-1.02 [facility] Comment on above: The validity of the calculated GFR & GFRAA in patients over 70 years has not been determined. Clinical correlation is essential. Serum or plasma transthyreti n measurement (mass/volume)Ordered By: Dr. Barrett on 05-31-2022 Prealbumin [Mass/Vol] 18.7 mg/dL 20.0-40.0 [facility] Serum or plasma urea nitroge n measurement (mass/volume)Ordered By: Dr. Barrett on 05-31-2022 Urea nitrogen [Mass/Vol] 13 mg/dL 7-18 [facility] [place] Thin prep Papanicolaou smear with manual screeningOrdered By: Dr. Barrett on 05-31-2022 Thin prep Papanicolaou smear with manual screening 7 5-15 [facility] [place] Vancomycin troughOrdered By: Dr. Barrett on 05-31-2022 Vancomycin trough [Mass/Vol] 9.8 ug/mL 5.0-15.0 [facility] [place] Comment on above: VANCOMYCIN STANDARED DRUG THERAPY TROUGH LEVEL: 5.0 - 15.0 mg/L VANCOMYCIN HIGH INTENSITY THERAPY TROUGH LEVEL: 15.0 - 20.0 mg/L High Intensity therapy recommended for serious lifethreatening infections include:- Dstgglqudn-Aykwalewwhxn-Dudwujwmy (Ventilator/Healtcare Associated)-Sepsis PLEASE CONTACT PHARMACY SERVICES (#[id number]) FOR INTERPRETATIONOF RESULTS. Glucose Glucometer (BldC) [M ass/Vol]Ordered By: Dr. Barrett on 05-30-2022 Glucose [Mass/Vol] 88 mg/dL 74-106 [facility] Comment on above: MANAGEMENT OF PATIEN T CARE PER NURSING PROTOCOL Laboratory - Chemistry and C hemistry - challengeOrdered By: Dr. Guan on 05-27-2022 Magnesium [Mass/Vol] 2.2 mg/dL 1.6-2.6 [facility] Anaerobic cultureOrdered By: Rachel Beard on 05-16-2022 Bacteria identified Anaer cx Nom (Unsp spec) No anaerobic bacteria isolated. [facility] [place] Bacteria identified Cx Nom ( Wound)Ordered By: Rachel Beard on 05-14-2022 Wound Culture Staphylococcus epidermidis [facility] [place] Gram stain for investigation of transfusion reactionOrdered By: Rachel Beard on 05-12-2022 Microscopic observation Gram stain Nom (Unsp spec) [facility] [place] Laboratory - Cytologyon 04-17 Cytology report Cyto stain.thin prep Doc (Cvx/Vag) [employer] Work Phone: CONTENT DESIGNER - Office Visiton 04-17 CONTENT DESIGNER - Office Visit Diagnoses/Problems Assessed Vaginal Papanicolaou smear (V76.47) (Z12.72) Pap test, as part of routine gynecological examination (V76.2) (Z01.419) 10/29/2021: LGSIL 04/02/2021: LGSIL 02/06/2020:Negative 03/15/2018; WNL Orders PAP TELEVISION PRODUCTION TECHNICIAN, Cytology; Status:In Progress - Specimen/Data Collected; Done: [id number] Last Menstrual Period (LMP): : Hysterectomy 2019 [...] 1 TABLET DAILY. Vitals Vital Signs Recorded: [id number] 08:45AM [id number] Lyjscddgv43 Height5 ft 5 in Fcwwft63.3 kg BMI Gfozpzyfgd15.99 kg/m2 BSA Calculated1.84 Tobacco Useb) No PHQ-2 [...] Screening.on 023 Adult depression screening assessment No [employer] Work Phone: Fall risk assessment a) No falls within the last year [employer] Phone: Last menstrual period start date Hysterectomy 2019 [email or web address] Work Phone: Tobacco use status CPHS b) No [employer] Work Phone: Basophil percentageOrdered B y: Dr. Barrett on 04-23-2022 WBC (Bld) [#/Vol] 7.9 10*3/uL 4.4-11.0 [facility] Blood erythrocytes count (nu mber/volume)Ordered By: Dr. Barrett on 04-23-2022 RBC (Bld) [#/Vol] 3.57 10*6/uL 4.2-5.4 [facility] Blood hemoglobin measurement (mass/volume)Ordered By: Dr. Barrett on 04-23-2022 Hemoglobin (Bld) [Mass/Vol] 11.5 g/dL 12.0-15.0 [facility] [place] Blood platelet mean volumeOr dered By: Dr. Barrett on 04-23-2022 Platelet mean volume (Bld) [Entitic vol] 10.4 fL 6.2-12.0 [facility] [place] Determination of erythrocyte mean corpuscular volume (MCV)Ordered By: Dr. Barrett on 04-23-2022 MCV (RBC) [Entitic vol] 97.8 fL 81-99 [facility] [place] Hematocrit Auto (Bld) [Volum e fraction]Ordered By: Dr. Barrett on 04-23-2022 Hematocrit (Bld) [Volume fraction] 34.9 % 37-47 [facility] [place] Laboratory - Hematology and Cell countsOrdered By: Dr. Barrett on 04-23-2022 Erythrocyte distribution width (RBC) [Entitic vol] 46.1 fL 35.1-43.9 [facility] [place] Erythrocyte distribution width (RBC) [Ratio] 12.9 % 11.6-14.6 [facility] [place] MCH (RBC) [Entitic mass] 32.2 pg 27.0-32.0 [facility] [place] MCHC Auto (RBC) [Mass/Vol]Or dered By: Dr. Barrett on 04-23-2022 MCHC (RBC) [Mass/Vol] 33.0 g/dL 32-36 [facility] Platelets bldOrdered By: Dr. Barrett on 04-23-2022 Platelets (Bld) [#/Vol] 279 10*3/uL 150-450 [facility] [place] Basophil percentageOrdered B y: Dr. Barrett on 04-14-2022 Chloride [Moles/Vol] 105 mmol/L 98-107 [facility] Glucose [Mass/Vol] 171 mg/dL 74-106 [facility] Comment on above: Fasting Glucose resu lt greater than or equal to 126 mg/dL suggests DIABETES MELLITUS per A.D.A. criteria. Potassium [Moles/Vol] 4.2 mmol/L 3.5-5.1 [facility] Sodium [Moles/Vol] 141 mmol/L 136-145 [facility] WBC (Bld) [#/Vol] 6.5 10*3/uL 4.4-11.0 [facility] Blood erythrocytes count (nu mber/volume)Ordered By: Dr. Barrett on 04-14-2022 RBC (Bld) [#/Vol] 2.72 10*6/uL 4.2-5.4 [facility] Blood hemoglobin measurement (mass/volume)Ordered By: Dr. Barrett on 04-14-2022 Hemoglobin (Bld) [Mass/Vol] 8.6 g/dL 12.0-15.0 [facility] [place] Blood platelet mean volumeOr dered By: Dr. Barrett on 04-14-2022 Platelet mean volume (Bld) [Entitic vol] 9.9 fL 6.2-12.0 [facility] [place] Determination of erythrocyte mean corpuscular volume (MCV)Ordered By: Dr. Barrett on 04-14-2022 MCV (RBC) [Entitic vol] 101.8 fL 81-99 [facility] [place] Hematocrit Auto (Bld) [Volum e fraction]Ordered By: Dr. Barrett on 04-14-2022 Hematocrit (Bld) [Volume fraction] 27.7 % 37-47 [facility] [place] Laboratory - Chemistry and C hemistry - challengeOrdered By: Dr. Barrett on 04-14-2022 CO2 [Moles/Vol] 33.0 mmol/L 21.0-32.0 [facility] [place] Urea nitrogen/Creatinine [Mass ratio] 19.1 mg/mg 10-20 [facility] [place] Laboratory - Hematology and Cell countsOrdered By: Dr. Barrett on 04-14-2022 Erythrocyte distribution width (RBC) [Entitic vol] 47.0 fL 35.1-43.9 [facility] [place] Erythrocyte distribution width (RBC) [Ratio] 12.6 % 11.6-14.6 [facility] [place] MCH (RBC) [Entitic mass] 31.6 pg 27.0-32.0 [facility] [facility] [place] MCHC Auto (RBC) [Mass/Vol]Or dered By: Dr. Barrett on 04-14-2022 MCHC (RBC) [Mass/Vol] 31.0 g/dL 32-36 [facility] Comment on above: Delta: 32.8 on 04/12 No Panel InformationOrdered By: Dr. Barrett on 04-14-2022 Estimated Creatinine Clearance Calc 94.72 ml/min [facility] [place] Estimated GFR (MDRD) Amer 119 mL/min >60 [facility] Comment on above: GFR Calc Estimated GFR (MDRD) Non-Af Amer 98 mL/min >60 [facility] [place] Comment on above: Non- GFR Calc Platelets bldOrdered By: Dr. Barrett on 04-14-2022 Platelets (Bld) [#/Vol] 156 10*3/uL 150-450 [facility] [place] Serum or plasma calcium deneen urement (mass/volume)Ordered By: Dr. Barrett on 04-14-2022 Calcium [Mass/Vol] 8.6 mg/dL 8.5-10.1 [facility] Serum or plasma creatinine m easurement (mass/volume)Ordered By: Dr. Barrett on 04-14-2022 Creatinine [Mass/Vol] 0.68 mg/dL 0.55-1.02 [facility] Comment on above: The validity of the calculated GFR & GFRAA in patients over 70 years has not been determined. Clinical correlation is essential. Serum or plasma urea nitroge n measurement (mass/volume)Ordered By: Dr. Barrett on 04-14-2022 Urea nitrogen [Mass/Vol] 13 mg/dL 7-18 [facility] [place] Thin prep Papanicolaou smear with manual screeningOrdered By: Dr. Barrett on 04-14-2022 Thin prep Papanicolaou smear with manual screening 3 5-15 [facility] [place] Serum or plasma transthyreti n measurement (mass/volume)Ordered By: Dr. Barrett on 04-12-2022 Prealbumin [Mass/Vol] 18.4 mg/dL 20.0-40.0 [facility] Glucose Glucometer (BldC) [M ass/Vol]Ordered By: Dr. Barrett on 04-11-2022 Glucose [Mass/Vol] 105 mg/dL 74-106 [facility] Comment on above: MANAGEMENT OF PATIEN T CARE PER NURSING PROTOCOL Laboratory - Chemistry and C hemistry - challengeOrdered By: Dr. Reece on 04-08-2022 Magnesium [Mass/Vol] 2.2 mg/dL 1.6-2.6 [facility] Comment on above: Slight Hemolysis, Re sult may be falsely increased. NOVEL CORONAVIRUSon 03-11-20 PERFORMED BY [facility] Normal [facility] Comment on above: Performed By: #### C COVID #### Testing performed at [facility] [address] [place] [address] SARS-CoV-2 (COVID-19) RNA WILEY+probe Ql (Unsp spec) Not detected Normal NOT DETECTED [facility] Comment on above: Result Comment: Nega tive [...] #### C COVID #### Testing performed at [address] [address] NARRATIVE This test was perfor med using isothermal WILEY and has been approved as Emergency Use Authorization (EUA) for the qualitative detection [id number] nucleic acid. [facility] Comment on above: Performed By: #### C COVID #### Testing performed at [address] [address] BLOOD CULTURE, BACTERIALon 1 05-11-2021 BLOOD CULTURE, BACTERIAL Only 1 bottle drawn PATIENT: IRENE LOPEZ LOCATION: [facility] BILL#: [id number] : 71 AGE: SEX: F ORDERED BY: SEAN MALAGON SOURCE: Blood COLLECTED: 03/09/22 23:35 ANTIBIOTICS AT [facility].: RECEIVED : 03/10/22 14:06 SITE: R E S U L T S BLOOD CULTURE, BACTERIAL FINAL 03/14/22 15:42 No Growth at 1 days No Growth at 2 days No Growth at 3 days NO GROWTH at 4 days - FINAL REPORT [facility] Comment on above: Performed By: #### B LDC #### [facility] [address] [place] [address] BLOOD CULTURE, BACTERIAL Only 1 bottle drawn PATIENT: IRENE LOPEZ LOCATION: [facility]#: [id number] : 71 AGE: SEX: F ORDERED BY: SEAN MALAGON SOURCE: Blood COLLECTED: 03/09/22 23:35 ANTIBIOTICS AT [facility].: RECEIVED : 03/10/22 14:08 SITE: ANTECUBITAL PERIPHERAL R E S U L T S BLOOD CULTURE, BACTERIAL FINAL 03/14/22 15:42 No Growth at 1 days No Growth at 2 days No Growth at 3 days NO GROWTH at 4 days - FINAL REPORT [facility] Comment on above: Performed By: #### B LDC #### [facility] [address] [place] [id number] CBC AND DIFFERENTIALon 03-10 % AUTOMATED IMMATURE GRAN 0.9 % Normal 0.0 - 0.[address] [facility] Comment on above: Result Comment: Erika ture Granulocyte Count (IG) includes promyelocytes, myelocytes and metamyelocytes but does not include bands. Percent differential counts (%) should be interpreted in the context of the absolute cell counts (cells/L). Performed By: #### T RP #### [place] [id number] DIFFERENTIAL SEE MANUAL DIFF Normal [facility] Comment on above: Performed By: #### T RP #### [place] [id number] Erythrocyte distribution width (RBC) [Ratio] 12.1 % Normal 11.5 - 14.[address] [facility] Comment on above: Performed By: #### T RP #### [place] [id number] Hematocrit (Bld) [Volume fraction] 34.9 % Low 36.0 - 46.[address] [facility] Comment on above: Performed By: #### T RP #### [address] [address] Hemoglobin (Bld) [Mass/Vol] 11.7 g/dL Low 12.0 - 16.[address] [facility] Comment on above: Performed By: #### T RP #### [address] [address] MCHC (RBC) [Mass/Vol] 33.5 g/dL Normal 32.0 - 36.0 [facility] Comment on above: Performed By: #### T RP #### [address] [address] MCV (RBC) [Entitic vol] 94 fL Normal 80 - [address] [facility] Comment on above: Performed By: #### T RPHS #### [address] [address] Platelets (Bld) [#/Vol] 176 10*3/uL Normal 150 - [address] [facility] Comment on above: Performed By: #### T RP #### [address] [address] RBC 3.71 x10E12/L Low 4.00 - 5.[address] [facility] Comment on above: Performed By: #### T RP #### [address] [address] WBC (Bld) [#/Vol] 9.4 10*3/uL Normal 4.4 - 11.3 [facility] Comment on above: Performed By: #### T RP #### [address] [address] COMPREHENSIVE PANELon 2021 Albumin [Mass/Vol] 3.9 g/dL Normal 3.4 - 5.0 [facility] Comment on above: Performed By: #### C MP #### [address] [address] ALP [Catalytic activity/Vol] 98 U/L Normal 33 - [address] [facility] Comment on above: Performed By: #### C MP #### [address] [address] ALT [Catalytic activity/Vol] 33 U/L Normal 7 - [address] [facility] Comment on above: Result Comment: Andria ents treated with Sulfasalazine may generate falsely decreased results for ALT. Performed By: #### C MP #### [address] [address] Anion gap [Moles/Vol] 14 mmol/L Normal 10 - 20 [facility] Comment on above: Performed By: #### C MP #### [address] [address] AST [Catalytic activity/Vol] 55 U/L High 9 - [address] [facility] Comment on above: Performed By: #### C MP #### [address] [address] Bilirubin [Mass/Vol] 0.7 mg/dL Normal 0.0 - 1.2 [facility] Comment on above: Performed By: #### C MP #### [address] [address] Calcium [Mass/Vol] 8.9 mg/dL Normal 8.6 - 10.3 [facility] Comment on above: Performed By: #### C MP #### [address] [address] Chloride [Moles/Vol] 104 mmol/L Normal 98 - 107 [facility] Comment on above: Performed By: #### C MP #### [address] [address] Creatinine [Mass/Vol] 0.86 mg/dL Normal 0.50 - 1.05 [facility] Comment on above: Performed By: #### C MP #### [address] [address] GFR/1.73 sq M.predicted among non-blacks MDRD (S/P/Bld) [Vol rate/Area] 83 mL/min/{1.73_m2} Normal >[address] [facility] Comment on above: Result Comment: CALC ULATIONS OF ESTIMATED GFR ARE PERFORMED USING THE 2020 CKD-EPI STUDY REFIT EQUATION WITHOUT THE RACE VARIABLE FOR THE IDMS-TRACEABLE CREATININE METHODS. https://jasn.asnjournals.org/content//ASN.74613 [address] Performed By: #### C MP #### [address] [address] Glucose [Mass/Vol] 129 mg/dL High 74 - 99 [facility] Comment on above: Performed By: #### C MP #### [address] [address] HCO3 (Bld) [Moles/Vol] 21 mmol/L Normal 21 - 32 [facility] Comment on above: Performed By: #### C MP #### [address] [address] Potassium [Moles/Vol] 3.1 mmol/L Low 3.5 - 5.3 [facility] Comment on above: Performed By: #### C MP #### [address] [address] Protein [Mass/Vol] 6.8 g/dL Normal 6.4 - 8.2 [facility] Comment on above: Performed By: #### C MP #### [address] [address] Sodium [Moles/Vol] 136 mmol/L Normal 136 - 145 [facility] Comment on above: Performed By: #### C MP #### [address] [address] Urea nitrogen [Mass/Vol] 12 mg/dL Normal 6 - [address] [facility] Comment on above: Performed By: #### C MP #### [address] [address] [address] ANGIO CHEST FOR PEon 02-14 CT ANGIO CHEST FOR PE Patient Name: IRENE LOPEZ STUDY: CT ANGIO CHEST FOR PE; 03/10/2022 12:34 am INDICATION: Dyspnea/elevated D-dimer . COMPARISON: 06/03/2019. ACCESSION NUMBER(S): [id number] ORDERING CLINICIAN: SEAN MALAGON TECHNIQUE: Helical data [...] new from 06/03/2019. Electronically signed by: MARTIN AJ DO Normal [facility] Covid 19 Resultson 2 SARS-CoV-2 (COVID-19) RNA [...] You may also be contacted by the [facility] to see if any of your [...] or Naproxen (Aleve) can also be used. Gwwu-hkl-detnlgm cough and cold medicines can be used according to the instructions on the package. Some fzxc-thr-rtlwjkd medicines also contain acetaminophen. Make sure you [...] water are not available, use alcohol-based hand bomb squad commander. Avoid touching your eyes, nose, and mouth [...] 24 sang (more content not included)... Normal [facility] D-DIMER, VTE EXCLUSIONon D-DIMER, VTE EXCLUSION 2499 ng/mL FEU Abnormal < or = [address] [facility] Comment on above: Result Comment: The VTE [...] or PE exclusion.) Performed By: #### T [facility] #### [place] [address] INFLUENZA A/B, COVID 2019 PC R,SYMPTOMATICon 03-10-2022 INFLUENZA A, PCR Not detected Normal Not Detected [facility] Comment on above: Result Comment: Resp iratory virus testing is performed routinely by PCR for Influenza A/B and RSV. Not Detected results do not preclude Influenza A/B or RSV infections since the adequacy of sample collection or low viral burden may impact the clinical sensitivity of this test method. Performed By: #### B MP #### [place] [address] INFLUENZA B, PCR Not detected Normal Not Detected [facility] Comment on above: Result Comment: Resp iratory virus testing is performed routinely by PCR for Influenza A/B and RSV. Not Detected results do not preclude Influenza A/B or RSV infections since the adequacy of sample collection or low viral burden may impact the clinical sensitivity of this test method. Performed By: #### B MP #### [place] [address] SARS-CoV-2 (COVID-19) RNA WILEY+probe Ql (Unsp spec) Not detected Normal Not Detected [facility] Comment on above: Result Comment: . This test has received FDA Emergency Use Authorization (EUA) and has been verified by [facility]. This test is only authorized for the duration of time that circumstances exist to justify the authorization of the emergency use of in vitro diagnostic tests for the detection of SARS-CoV-2 virus and/or diagnosis of COVID-19 infection under section 564(b)(1) of the Act, 21 U.S.C. 360bbb-3(b)(1), unless the authorization is terminated or revoked sooner. [facility] is certified under CLIA-88 as qualified to perform high complexity testing. Testing is performed in the [facility] laboratory located at [address] [place] [address]. SARS-CoV-2/Flu/RSV Multiplex Test: Fact sheet for providers: https://www.fda.gov/media/894037/download Fact sheet for patients: https://www.fda.gov/media/241162/download Performed By: #### B MP #### [address] [address] MANUAL DIFFERENTIALon 2021 % BASOPHIL 0.0 % Normal 0.0 - 2.[address] [facility] Comment on above: Performed By: #### M DIFF #### [address] [address] % EOSINOPHIL 1.0 % Normal 0.0 - 6.[address] [facility] Comment on above: Performed By: #### M DIFF #### [address] [address] % LYMPH-ATYPICAL 8.0 % Normal 0.0 - 2.0 [facility] Comment on above: Performed By: #### M DIFF #### [address] [address] % LYMPHOCYTE 36.0 % Normal 13.0 - 44.[address] [facility] Comment on above: Performed By: #### M DIFF #### [address] [address] % MONOCYTE 4.0 % Normal 2.0 - 10.[address] [facility] Comment on above: Performed By: #### M DIFF #### [address] [address] % SEG NEUTROPHIL 51.0 % Normal 40.0 - 80.[address] [facility] Comment on above: Result Comment: Perc ent differential counts (%) should be interpreted in the context of the absolute cell counts (cells/L). Performed By: #### M DIFF #### [place] [address] ANC 4.79 x10E9/L Normal 1.20 - 7.[address] [facility] Comment on above: Performed By: #### M DIFF #### [place] [address] BASOPHIL 0.00 x10E9/L Normal 0.00 - 0.[address] [facility] Comment on above: Performed By: #### M DIFF #### [place] [address] EOSINOPHIL 0.09 x10E9/L Normal 0.00 - 0.[address] [facility] Comment on above: Performed By: #### M DIFF #### [place] [address] LYMPH-ATYPICAL 0.75 x10E9/L High 0.00 - 0.50 [facility] Comment on above: Performed By: #### M DIFF #### [place] [address] LYMPHOCYTE 3.38 x10E9/L Normal 1.20 - 4.[address] [facility] Comment on above: Performed By: #### M DIFF #### [place] [address] MONOCYTE 0.38 x10E9/L Normal 0.10 - 1.[address] [facility] Comment on above: Performed By: #### M DIFF #### [place] [address] SEG NEUTROPHIL 4.79 x10E9/L Normal 1.20 - 7.[address] [facility] Comment on above: Performed By: #### M DIFF #### [place] [address] Provider Note - ED v3on 12-2 Provider [...] Alert and oriented x4, GCS 15 , herb counselor II-XII grossly intact. Sensation and motor function of extremities grossly intact. Psych: Appropriate mood and affect. I have reviewed and confirmed nurses/medics notes for patient past, social and family history. Portions of this note were dictated by speech recognition. An attempt at proof reading was made to minimize errors. Minor errors in mononitrotoluene operator may be present. HISTORY OF PRESENTING ILLNESS [...] Reference Range: STRAW,YELLOW Appearance, Urine CLEAR Specific [place], Urine 1.010 pH, Urine 6.5 Protein, Urine [...] Serum 33 (more content not included)... Normal [facility] RED CELL MORPHOLOGYon 2021 POLYCHROMASIA Mild Normal [facility] Comment on above: Performed By: #### B MP #### [place] [address] RBC morphology finding Nom (Bld) See Below Normal [facility] Comment on above: Performed By: #### B MP #### [place] [address] STOMATOCYTES Few Normal [facility] Comment on above: Performed By: #### B MP #### [place] [address] RSV PCRon 03-10-2022 RSV,PCR Not detected Normal Not Detected [facility] Comment on above: Result Comment: Resp iratory virus testing is performed routinely by PCR for Influenza A/B and RSV. Not Detected results do not preclude Influenza A/B or RSV infections since the adequacy of sample collection or low viral burden may impact the clinical sensitivity of this test method. Performed By: #### R [facility] #### [place] [address] Lab Specimen Source Nasal, Nasopharyngeal Normal [facility] Comment on above: Performed By: #### R [facility] #### [place] [address] Performed By: #### B MP #### [place] [address] Risk Screen - Adult Emergenc yon 03-10-2022 Risk Screen - Adult Emergency Preferred Language: Preferred Language: Preferred Language for Discussing Health Care (patient/designee)[place] Patient Preferred Pharmacy: Patient Preferred Pharmacy Statement: [...] Learning Preferenceswritten material Cultural Considerationsnone Developmental Considerationsnone Muslim Considerationsnone Other Learnersnone Learning Assessment (Other Learner): Learning Assessment (Other Learner): Other learner availableno Pressure Injury/TB/Substance: Pressure Injury: Pressure Injury Present on Admissionno Do you have a coughno Smoking Statusformer smoker Alcohol Usedenies Drug Usedenies Drug 2 Usedenies Admission Risk Screen: Significant IndicatorsComplete CAGE: CAGE: [place] an [place] at a [place] Center [place] [place]/[place]/[facility]/ [place] no Electronic Signatures: Gladys Webster (SUPV) (Signed 09-Mar-2022 23:07) Authored: Preferred Language, Patient Preferred Pharmacy, Advanced Directives, Family Violence Adult, Learning Assessment (Patient), Learning Assessment (Other Learner), Pressure Injury/TB/Substance, Pressure Injury, CAGE Last Updated: 09-Mar-2022 23:07 by Gladys Webster (SUPV) [facility] CT Angio Chest For PEon 1 05-11-2021 CT Angio Chest For PE [facility] Work Phone: TROPONIN I, HIGH SENSITIVITY on 03-10-2022 TROPONIN I, HIGH SENSITIVITY 7 ng/L Normal 0 - [address] [facility] Comment on above: Result Comment: . Less [...] performed using a different testing methodology at [facility] than at other [facility]. Direct result comparisons should only be made within the same method. Performed By: #### T [facility] #### [facility] [address] [place] [address] Triage - EDon 03-10-2022 Triage - ED [...] 93% on room air, no respiratory support. [place] Coma Scale: Best Eye Response: (E4) spontaneous Best Motor Response: (M6) obeys commands Best Verbal Response: (V5) oriented Mahesh Score: 15 Cough lasting greater than 3 weeks: no Patient immunocompromised related to: N/A Allergies: yes Last menstrual period: unknown CONTENT DESIGNER History: hysterectomy Patient has homicidal thoughts: no [...] Updated: 09-Mar-2022 23:05 by Gladys Webster (SUPV) [facility] UA MICROSCOPICon 03-10-2022 RBC (U) [#/Vol] /uL Normal 0-[address] [facility] Comment on above: Performed By: #### U AMIC #### [place] [address] SQUAMOUS EPITH. CELLS 1 /HPF Normal [facility] Comment on above: Performed By: #### U AMIC #### [place] [address] WBC 3 /HPF Normal 0-[address] [facility] Comment on above: Performed By: #### U AMIC #### [address] [address] URINALYSIS WITH CULTURE IF I NDICATEDon 03-10-2022 Appearance (U) CLEAR Normal CLEAR [facility] Comment on above: Performed By: #### B MP #### [address] [address] Bilirubin Ql (U) Negative Normal NEGATIVE [facility] Comment on above: Performed By: #### B MP #### [address] [address] Color (U) STRAW Normal STRAW,YELLOW [facility] Comment on above: Performed By: #### B MP #### [address] [address] Glucose Ql (U) Negative Normal NEGATIVE [facility] Comment on above: Performed By: #### B MP #### [address] [address] Hemoglobin Ql (U) TRACE Abnormal NEGATIVE [facility] Comment on above: Performed By: #### B MP #### [address] [address] Ketones Ql (U) Negative Normal NEGATIVE [facility] Comment on above: Performed By: #### B MP #### [address] [address] Leukocyte esterase Test strip Ql (U) Negative Normal NEGATIVE [facility] Comment on above: Performed By: #### B MP #### [address] [address] Nitrite Ql (U) Negative Normal NEGATIVE [facility] Comment on above: Performed By: #### B MP #### [address] [address] pH (U) 6.5 [pH] Normal 5.0 - 8.[address] [facility] Comment on above: Performed By: #### B MP #### [address] [address] Protein Ql (U) Negative Normal NEGATIVE [facility] Comment on above: Performed By: #### B MP #### [address] [address] Specific gravity (U) [Rel density] 1.010 Normal 1.005 - 1.[address] [facility] Comment on above: Performed By: #### B MP #### [address] [address] Urobilinogen (U) [Mass/Vol] mg/dL Normal 0.0 - 1.[address] [facility] Comment on above: Performed By: #### B MP #### [address] [address] Color (U) STRAW See Below [facility] Work Phone: [phone] Comment on above: Reference Range: STR AW,YELLOW Glucose Ql (U) Negative NEGATIVE [facility] Work Phone: [phone] Ketones Ql (U) Negative NEGATIVE [facility] Work Phone: [phone] Leukocyte esterase Test strip Ql (U) Negative NEGATIVE [facility] Work Phone: [phone] pH (U) 6.5 [pH] 5.0 - 8.0 [facility] Work Phone: [phone] Protein (U) [Mass/Vol] Negative NEGATIVE [facility] Work Phone: [phone] RBC (U) [#/Vol] TRACE Abnormal NEGATIVE [facility] Work Phone: [phone] Specific gravity (U) [Rel density] 1.010 1 See Below [facility] Work Phone: [phone] Comment on above: Reference Range: 1.0 05 - 1.035 URINALYSIS WITH CULTURE IF INDICATED Negative NEGATIVE [facility] Work Phone: [phone] URINALYSIS WITH CULTURE IF INDICATED <2.0 0.0 - 1.9 [facility] Work Phone: [phone] URINALYSIS WITH CULTURE IF INDICATED CLEAR CLEAR [facility] Work Phone: [phone] Urinalysis, Microscopicon Urinalysis, Microscopic 1 {/HPF} [facility] Work Phone: [phone] Urinalysis, Microscopic <1 0-5 [facility] Work Phone: Urinalysis, Microscopic 3 {/HPF} 0-5 [facility] Work Phone: [phone] Complete Blood Count + Diffe rentialon 03-09-2022 Erythrocyte distribution width (RBC) [Ratio] 12.1 % See Below [facility] Work Phone: [phone] Comment on above: Reference Range: 11. 5 - 14.5 Hematocrit (Bld) [Volume fraction] 34.9 % below low threshold See Below [facility] Work Phone: [phone] Comment on above: Reference Range: 36. 0 - 46.0 Hemoglobin (Bld) [Mass/Vol] 11.7 g/dL below low threshold See Below [facility] Work Phone: [phone] Comment on above: Reference Range: 12. 0 - 16.0 MCHC (RBC) [Mass/Vol] 33.5 g/dL See Below [facility] Work Phone: [phone] Comment on above: Reference Range: 32. 0 - 36.0 MCV (RBC) [Entitic vol] 94 fL 80 - 100 [facility] Work Phone: [phone] Platelets (Bld) [#/Vol] 176 10*3/uL 150 - 450 [facility] Work Phone: [phone] RBC (Bld) [#/Vol] 3.71 {x10E12/L} below low threshold See Below [facility] Work Phone: [phone] Comment on above: Reference Range: 4.0 0 - 5.20 WBC (Bld) [#/Vol] 9.4 10*3/uL 4.4 - 11.3 [facility] Work Phone: [phone] Complete Blood Count + Differential SEE MANUAL DIFF [facility] Work Phone: [phone] Complete Blood Count + Differential 0.9 % 0.0 - 0.9 [facility] Work Phone: Comment on above: Immature Granulocyte Count (IG) includes promyelocytes, myelocytes and metamyelocytes but does not include bands. Percent differential counts (%) should be interpreted in the context of the absolute cell counts (cells/L). Cult, Bloodon 03-09-2022 Bacteria identified Cx Nom (Bld) [facility] Work Phone: INFLUENZA A/B, COVID 2019 PC R,SYMPTOMATICon 03-09-2022 INFLUENZA A/B, COVID 2019 PCR,SYMPTOMATIC Not detected See Below [facility] Work Phone: Comment on above: Reference Range: Not Detected.This test has received [facility] Emergency Use Authorization (EUA) and has been verified by [facility]. This test is only authorized for the duration of time that circumstances exist to justify the authorization of the emergency use of in vitro diagnostic tests for the detection of SARS-CoV-2 virus and/or diagnosis of COVID-19 infection under section 564(b)(1) of the Act, 21 U.S.C. 360bbb-3(b)(1), unless the authorization is terminated or revoked sooner. [facility] is certified under CLIA-88 as qualified to perform high complexity testing. Testing is performed in the [facility] laboratory located at [address] [place] [address].SARS-CoV-2/Flu/RSV Multiplex Test: Fact sheet for providers: https://www.fda.gov/media/466015/downloadFact sheet for patients: https://www.fda.gov/media/909143/download Reference Range: Not Detected Respiratory virus testing [...] dye [Mass/Vol] 3.9 g/dL 3.4 - 5.0 [facility] Work Phone: ALP [Catalytic activity/Vol] 98 U/L 33 - 110 [facility] Work Phone: ALT With P-5'-P [Catalytic activity/Vol] 33 U/L 7 - 45 [facility] Work Phone: Comment on above: Patients treated wit h Sulfasalazine may generate falsely decreased results for ALT. Anion gap [Moles/Vol] 14 mmol/L 10 - 20 [facility] Work Phone: [phone] AST With P-5'-P [Catalytic activity/Vol] 55 U/L above high threshold 9 - 39 [facility] Work Phone: [phone] Bilirubin [Mass/Vol] 0.7 mg/dL 0.0 - 1.2 [facility] Work Phone: [phone] Calcium [Mass/Vol] 8.9 mg/dL 8.6 - 10.3 [facility] Work Phone: [phone] Chloride [Moles/Vol] 104 mmol/L 98 - 107 [facility] Work Phone: [phone] CO2 [Moles/Vol] 21 mmol/L 21 - 32 [facility] Work Phone: [phone] Creatinine [Mass/Vol] 0.86 mg/dL See Below [facility] Work Phone: Comment on above: Reference Range: 0.5 0 - 1.05 Glucose [Mass/Vol] 129 mg/dL above high threshold 74 - 99 [facility] Work Phone: Potassium [Moles/Vol] 3.1 mmol/L below low threshold 3.5 - 5.3 [facility] Work Phone: Protein [Mass/Vol] 6.8 g/dL 6.4 - 8.2 [facility] Work Phone: [phone] Sodium [Moles/Vol] 136 mmol/L 136 - 145 [facility] Work Phone: Urea nitrogen [Mass/Vol] 12 mg/dL 6 - 23 [facility] Work Phone: Laboratory - Hematology and Cell countson 03-09-2021 Basophils/100 WBC (Bld) 0.0 % 0.0 - 2.0 [facility] Work Phone: Lymphocytes/100 WBC (Bld) 36.0 % See Below [facility] Work Phone: Comment on above: Reference Range: 13. 0 - 44.0 Monocytes/100 WBC (Bld) 4.0 % 2.0 - 10.0 [facility] Work Phone: Laboratory - Microbiology an d Antimicrobial susceptibilityon 03-09-2022 RSV RNA WILEY+probe Ql (Unsp spec) Not detected See Below [facility] Work Phone: Comment on above: SOURCE: Nasal, Nasop haryngealReference Range: Not Detected Respiratory virus testing is performed routinely by PCR for Influenza A/B and RSV. Not Detected results do not preclude Influenza A/B or RSV infections since the adequacy of sample collection or low viral burden may impact the clinical sensitivity of this test method. No Panel Informationon 03-09 83 {mL/min/1.73m2} >90 [facility] Work Phone: Comment on above: CALCULATIONS OF ASHLEY MATED GFR ARE PERFORMED USING THE 2020 CKD-EPI STUDY REFIT EQUATION WITHOUT THE RACE VARIABLE FOR THE IDMS-TRACEABLE CREATININE METHODS.https://jasn.asnjournals.org/content/early//A SN.3800321194 0.75 {x10E9/L} above high threshold See Below [facility] Work Phone: Comment on above: Reference Range: 0.0 0 - 0.50 0.00 {x10E9/L} See Below [facility] Work Phone: Comment on above: Reference Range: 0.0 0 - 0.10 0.09 {x10E9/L} See Below [facility] Work Phone: Comment on above: Reference Range: 0.0 0 - 0.70 0.38 {x10E9/L} See Below [facility] Work Phone: Comment on above: Reference Range: 0.1 0 - 1.00 3.38 {x10E9/L} See Below [facility] Work Phone: Comment on above: Reference Range: 1.2 0 - 4.80 4.79 {x10E9/L} See Below [facility] Work Phone: Comment on above: Reference Range: 1.2 0 - 7.00 Reference Range: 1.2 0 - 7.70 8.0 % 0.0 - 2.0 [facility] Work Phone: 1.0 % 0.0 - 6.0 [facility] Work Phone: 51.0 % See Below [facility] Work Phone: Comment on above: Reference Range: 40. 0 - 80.0 Percent differential counts (%) should be interpreted in the context of the absolute cell counts (cells/L). Few [facility] Work Phone: Mild [facility] Work Phone: See Below [facility] Work Phone: [phone] {ng/mL_FEU} Abnormal < or = 500 [facility] Work Phone: Comment on above: The [...] sensitivity method 7 ng/L 0 - 13 [facility] Work Phone: Comment on above: .Less [...] performed using a different testing methodology at [facility] than at other [facility]. Direct result comparisons should only be made within the same method. Office Visiton 03-05-2022 Follow-up visit Diagnoses/Problems Encounter for preventive health examination (V70.0) (Z00.00) Esophagitis (530.10) (K20.90) Abnormal CT scan, esophagus (793.4) (R93.3) Orders Abnormal CT scan, esophagus, Esophagitis Gastroenterology Referral Evaluation and Treatment Evaluate AND Treat Status: Hold For - Scheduling Requested for: [id number] Esophagitis Start: Omeprazole 40 MG Oral Capsule Delayed Release; TAKE 1 CAPSULE Daily Health Maintenance Start: Cetirizine HCl - 10 MG Oral Tablet; TAKE 1 TABLET DAILY DIRECTED Complete Blood Count + Differential; Status:Active; Requested for:[id number]; Start: Fluticasone Propionate 50 MCG/ACT Nasal Suspension (Flonase Allergy Relief); USE 2 SPRAY(S) IN EACH NOSTRIL TWICE DAILY Comprehensive Metabolic Panel; Status:Active; Requested for:[id number]; Renew: IBU 800 MG Oral Tablet; TAKE [...] 1 TABLET DAILY. Vitals Vital Signs Recorded: [id number] 11:39AM Heart Rate78 Uvkaipew342, LUE, Sitting Wehbuzkoz81, LUE, Sitting Height5 ft 5 in Mlixsq708 lb 2 oz BMI Tffyjnfzkl51.64 kg/m2 BSA Calculated1.86 Tobacco Useb) No Falls Screening (Age 18+)a) No falls within the last year O2 Atysdmcssn39 Physical Exam General: Alert and oriented, No acute distress. Respiratory: Lungs are clear to auscultation, Respirations are non-labored, Breath sounds (more content not included)... Normal [employer] Tobacco Screening.on 022 Fall risk assessment a) [...] RN Post Discharge Registered Nurse Contact # [phone] Electronic Signatures: Kailey Aguilar (RN) (Signed 03-Mar-2022 14:22) Authored: Clinical Event Note Last Updated: 03-Mar-2022 14:22 by Kailey Aguilar (RN) Normal [facility] BASIC METABOLIC PANELon 12- Anion gap [Moles/Vol] 13 mmol/L Normal 10 - 20 [facility] Comment on above: Performed By: #### B MP #### [address] [address] Calcium [Mass/Vol] 9.4 mg/dL Normal 8.6 - 10.3 [facility] Comment on above: Performed By: #### B MP #### [address] [address] Chloride [Moles/Vol] 101 mmol/L Normal 98 - 107 [facility] Comment on above: Performed By: #### B MP #### [address] [address] Creatinine [Mass/Vol] 0.81 mg/dL Normal 0.50 - 1.05 [facility] Comment on above: Performed By: #### B MP #### [address] [address] GFR/1.73 sq M.predicted among non-blacks MDRD (S/P/Bld) [Vol rate/Area] 89 mL/min/{1.73_m2} Normal >[address] [facility] Comment on above: Result Comment: CALC ULATIONS OF ESTIMATED GFR ARE PERFORMED USING THE 2020 CKD-EPI STUDY REFIT EQUATION WITHOUT THE RACE VARIABLE FOR THE IDMS-TRACEABLE CREATININE METHODS. https://jasn.asnjournals.org/content//ASN.86418 28972 Performed By: #### B MP #### [address] [address] Glucose [Mass/Vol] 105 mg/dL High 74 - 99 [facility] Comment on above: Performed By: #### B MP #### [address] [address] HCO3 (Bld) [Moles/Vol] 26 mmol/L Normal 21 - 32 [facility] Comment on above: Performed By: #### B MP #### [address] [address] Potassium [Moles/Vol] 4.0 mmol/L Normal 3.5 - 5.3 [facility] Comment on above: Result Comment: MILD HEMOLYSIS DETECTED. The result may be falsely elevated due to hemolysis or other interferents. Clinical correlation is recommended. Repeat testing may be considered. Performed By: #### B MP #### [address] [address] Sodium [Moles/Vol] 136 mmol/L Normal 136 - 145 [facility] Comment on above: Performed By: #### B MP #### [address] [address] Urea nitrogen [Mass/Vol] 13 mg/dL Normal 6 - [address] [facility] Comment on above: Performed By: #### B MP #### [address] [address] CBCon 03-02-2022 Erythrocyte distribution width (RBC) [Ratio] 12.1 % Normal 11.5 - 14.[address] [facility] Comment on above: Performed By: #### B MP #### [address] [address] Hematocrit (Bld) [Volume fraction] 38.4 % Normal 36.0 - 46.[address] [facility] Comment on above: Performed By: #### B MP #### [address] [address] Hemoglobin (Bld) [Mass/Vol] 12.9 g/dL Normal 12.0 - 16.[address] [facility] Comment on above: Performed By: #### B MP #### [address] [address] MCHC (RBC) [Mass/Vol] 33.6 g/dL Normal 32.0 - 36.0 [facility] Comment on above: Performed By: #### B MP #### [address] [address] MCV (RBC) [Entitic vol] 96 fL Normal 80 - [address] [facility] Comment on above: Performed By: #### B MP #### [address] [address] Platelets (Bld) [#/Vol] 164 10*3/uL Normal 150 - [address] [facility] Comment on above: Performed By: #### B MP #### [place] [id number] RBC 3.99 x10E12/L Low 4.00 - 5.[address] [facility] Comment on above: Performed By: #### B MP #### [address] [address] WBC (Bld) [#/Vol] 7.2 10*3/uL Normal 4.4 - 11.3 [facility] Comment on above: Performed By: #### B MP #### [place] [id number] CORONAVIRUS 2019 BY PCRon SARS-CoV-2 (COVID-19) RNA WILEY+probe Ql (Unsp spec) Not detected Normal Not Detected [facility] Comment on above: Result Comment: . This test has received FDA Emergency Use Authorization (EUA) and has been verified by [facility]. This test is only authorized for the duration of time that circumstances exist to justify the authorization of the emergency use of in vitro diagnostic tests for the detection of SARS-CoV-2 virus and/or diagnosis of COVID-19 infection under section 564(b)(1) of the Act, 21 U.S.C. 360bbb-3(b)(1), unless the authorization is terminated or revoked sooner. [facility] is certified under CLIA-88 as qualified to perform high complexity testing. Testing is performed in the [facility] laboratory located at [address] [place] [address]. SARS-CoV-2/Flu/RSV Multiplex Test: Fact sheet for providers: https://www.fda.gov/media/152025/download Fact sheet for patients: https://www.fda.gov/media/600892/download Performed By: #### C OV19 #### [place] [address] Lab Specimen Source Nasal, Nasopharyngeal Normal [facility] Comment on above: Performed By: #### C OV19 #### [place] [address] CT Neck with Contraston 02-13 CT Neck W contrast IV Normal - [employer] [facility] Work Phone: Covid 19 Resultson [...] You may also be contacted by the [facility] to see if any of your [...] or Naproxen (Aleve) can also be used. Fgnn-mnh-pxjrqhr cough and cold medicines can be used according to the instructions on the package. Some ejta-umf-wlftpah medicines also contain acetaminophen. Make sure you [...] water are not available, use alcohol-based hand bomb squad commander. Avoid touching your eyes, nose, and mouth [...] 24 sang (more content not included)... Normal [facility] GROUP A STREP,PCRon 03-02-20 GROUP A STREP,PCR Not detected Normal Not Detected [facility] Comment on above: Result Comment: This test was performed utilizing an FDA-cleared rapid nucleic acid amplification by PCR to qualitatively detect Group A Streptococci from throat swab specimens without the need for culture confirmation of negative results. Performed By: #### B MP #### [place] [address] Lab Specimen Source Throat Normal [facility] Comment on above: Performed By: #### B MP #### [address] [address] HCG, Beta Quantitativeon HCG.beta subunit Qn 2 m[IU]/mL [facility] Work Phone: Comment on above: .Total HCG measureme nt is performed using the [facility] AccessImmunoassay which detects intact HCG and free beta HCG subunit. .This test is not indicated for use as a tumor marker.HCG testing is performed using a different test methodology at [facility] than other [facility]. Direct result comparisonshould only be made within the same method. REF VALUESNON FEMALE <5MALES <5 HCG,BETA-QUANTITATIVEon 02-13 HCG,BETA-QUANTITATIVE 2 mIU/mL Normal [facility] Comment on above: Result Comment: . Total HCG measurement is performed using the [facility] Access Immunoassay which detects intact HCG and free beta HCG subunit. . This test is not indicated for use as a tumor marker. HCG testing is performed using a different test methodology at [facility] than other [facility]. Direct result comparison should only be made within the same method. REF VALUES NON FEMALE <5 MALES <5 Performed By: #### B MP #### [place] [address] INFLUENZA A + B PCRon 2021 INFLUENZA A, PCR Not detected Normal Not Detected [facility] Comment on above: Result Comment: Resp iratory virus testing is performed routinely by PCR for Influenza A/B and RSV. Not Detected results do not preclude Influenza A/B or RSV infections since the adequacy of sample collection or low viral burden may impact the clinical sensitivity of this test method. Performed By: #### I NFLP #### [place] [address] INFLUENZA B, PCR Not detected Normal Not Detected [facility] Comment on above: Result Comment: Resp iratory virus testing is performed routinely by PCR for Influenza A/B and RSV. Not Detected results do not preclude Influenza A/B or RSV infections since the adequacy of sample collection or low viral burden may impact the clinical sensitivity of this test method. Performed By: #### I NFLP #### [place] [address] Lab Specimen Source Nasal, Nasopharyngeal Normal [facility] Comment on above: Performed By: #### I NFLP #### [address] [address] INFLUENZA A/B, COVID 2019 PC R,SYMPTOMATICon 03-02-2022 INFLUENZA A, PCR Canceled [facility] Comment on above: Order Comment: TEST INFLUENZA [...] method. Performed By: #### B MP #### [place] [id number] INFLUENZA B, PCR Canceled [facility] Comment on above: Order Comment: TEST INFLUENZA [...] method. Performed By: #### B MP #### [place] [id number] SARS-CoV-2 (COVID-19) RNA WILEY+probe Ql (Unsp spec) Canceled [facility] Comment on above: Order Comment: TEST INFLUENZA A/B, COVID 2019 PCR,SYMPTOMATIC WAS CANCELLED, 200:21 NEEDS FLU ONLY. Result Comment: . This test has received FDA Emergency Use Authorization (EUA) and has been verified by [facility]. This test is only authorized for the duration of time that circumstances exist to justify the authorization of the emergency use of in vitro diagnostic tests for the detection of SARS-CoV-2 virus and/or diagnosis of COVID-19 infection under section 564(b)(1) of the Act, 21 U.S.C. 360bbb-3(b)(1), unless the authorization is terminated or revoked sooner. [facility] is certified under CLIA-88 as qualified to perform high complexity testing. Testing is performed in the [facility] laboratory located at [address] [place] [address]. SARS-CoV-2/Flu/RSV Multiplex Test: Fact sheet for providers: https://www.fda.gov/media/826940/download Fact sheet for patients: https://www.fda.gov/media/640447/download Performed By: #### B MP #### [place] [address] Lab Specimen Source Nasal, Nasopharyngeal Normal [facility] Comment on above: Order Comment: TEST INFLUENZA A/B, COVID 2019 PCR,SYMPTOMATIC WAS CANCELLED, 200:21 NEEDS FLU ONLY. Performed By: #### B MP #### [place] [address] Laboratory - Chemistry and C hemistry - [...] width (RBC) [Ratio] 12.1 % See Below [facility] Work Phone: Comment on above: Reference Range: 11. 5 - 14.5 Hematocrit (Bld) [Volume fraction] 38.4 % See Below [facility] Work Phone: Comment on above: Reference Range: 36. 0 - 46.0 Hemoglobin (Bld) [Mass/Vol] 12.9 g/dL See Below [facility] Work Phone: Comment on above: Reference Range: 12. 0 - 16.0 MCHC (RBC) [Mass/Vol] 33.6 g/dL See Below [facility] [...] (Bld) [#/Vol] 7.2 10*3/uL 4.4 - 11.3 -[facility] [facility] Work Phone: NR CT NECK WITH CONTRASTon 1 05-03-[address] NECK WITH CONTRAST Patient Name: IRENE LOPEZ STUDY: CT NECK WITH CONTRAST; 03/02/2022 2:20 am INDICATION: sore throat, fever, rule out abscess . COMPARISON: None. ACCESSION NUMBER(S): [id number] ORDERING CLINICIAN: FANNY MCKEON TECHNIQUE: Axial CT [...] examination. Electronically signed by: MINNIE AVERY MD [facility] No Panel Informationon 03-02 89 {mL/min/1.73m2} >90 -[facility] Work Phone: Comment on above: CALCULATIONS OF ASHLEY MATED GFR ARE PERFORMED USING THE 2020 CKD-EPI STUDY REFIT EQUATION WITHOUT THE RACE VARIABLE FOR THE IDMS-TRACEABLE CREATININE METHODS.https://jasn.asnjournals.org/content//A SN.0059968800 Not detected See Below -[employer] [facility] [facility] Work Phone: Comment on [...] test method. Provider Note - ED v3on 12-1 Provider Note - ED v3 Provider Note: [...] preclude Influenza (more content not included)... Normal [facility] Risk Screen - Adult Emergenc yon 03-02-2022 Risk Screen - Adult Emergency Preferred Language: Preferred Language: Preferred Language for Discussing Health Care (patient/designee)[place] Patient Preferred Pharmacy: Patient Preferred Pharmacy Statement: [...] instruction; written material Cultural Considerationsnone Developmental Considerationsnone Muslim Considerationsnone Learning Assessment (Other Learner): Learning Assessment (Other Learner): Other learner availableno Pressure Injury/TB/Substance: Pressure Injury: Do you have a coughno Smoking Statusformer smoker Alcohol Useoccasionally Drug Usedenies Drug 2 Usedenies Admission Risk Screen: Significant IndicatorsComplete CAGE: CAGE: Is this an injured patient at a [place] Center [place] [place]/[place]/ [place]): no Electronic Signatures: Virgen Doty (RASHID LOVEN) (Signed 01-Mar-2022 23:53) Authored: Preferred Language, Patient Preferred Pharmacy, Advanced Directives, Family Violence Adult, Learning Assessment (Patient), Learning Assessment (Other Learner), Pressure Injury/TB/Substance, Pressure Injury, CAGE Last Updated: 01-Mar-2022 23:53 by Virgen Doty (RASHID PRN) [facility] Triage - EDon 03-02-2022 Triage - [...] BMI (kg/m2): 32.764 Calculated BSA (m2) 1.82 Mahesh Coma Scale: Best Eye Response: (E4) spontaneous Best Motor Response: (M6) obeys commands Best Verbal Response: (V5) oriented [place] Score: 15 CONTENT DESIGNER History: hysterectomy Patient has homicidal thoughts: no [...] 01:27 by Virgen Doty (RASHID RAMIREZ) Normal [facility] Coronavirus 2019 RNA by PCR, Symptomaticon 03-01-2022 Coronavirus 2019 RNA by PCR, Symptomatic Not detected Normal See Below [facility] [employer] [facility] Work Phone: Comment on above: SOURCE: Nasal, Nasop haryngealReference Range: Not Detected.This test has received [facility] Emergency Use Authorization (EUA) and has been verified by [facility]. This test is only authorized for the duration of time that circumstances exist to justify the authorization of the emergency use of in vitro diagnostic tests for the detection of SARS-CoV-2 virus and/or diagnosis of COVID-19 infection under section 564(b)(1) of the Act, 21 U.S.C. 360bbb-3(b)(1), unless the authorization is terminated or revoked sooner. [facility] is certified under CLIA-88 as qualified to perform high complexity testing. Testing is performed in the [facility] laboratory located at [address] [place] [address].SARS-CoV-2/Flu/RSV Multiplex Test: Fact sheet for providers: https://www.fda.gov/media/847772/downloadFact sheet for patients: https://www.fda.gov/media/185468/download GROUP A STREP, PCRon 022 S. pyogenes Ag Ql (Throat) Not detected See Below [facility] [employer] [facility] Work Phone: Comment on above: SOURCE: [...] Last menstrual period start date Hysterectomy 2019 [facility] [employer] Work Phone: Laboratory - Cytologyon 10-14 Cytology report Cyto stain.thin prep Doc (Cvx/Vag) [employer] [facility] [employer] Work Phone: CONTENT DESIGNER - Office Visiton 10-14 CONTENT DESIGNER - Office Visit Diagnoses/Problems Assessed LGSIL Pap smear of vagina (235.13) (R82.622) Orders PAP TELEVISION PRODUCTION TECHNICIAN, Cytology; Status:In Progress - Specimen/Data Collected,Retrospective Authorization; Done: [id number] Last Menstrual Period (LMP): : Hysterectomy 2019 [...] DAILY. 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) Orders Breast cancer screening, high risk patient, Dense breast tissue MRI Breast Bilateral with contrast fast screening (SELF PAY); Status:Hold For - Scheduling; Requested for:17Nov2021; Perform:[facility]; Due:[id number];Ordered; For:Breast cancer screening, high risk patient, Dense breast tissue; Ordered By:Kathleen Gardner; Radiologist to Determine Optimal Study : Y Does the patient have a Cochlear Implant, Pacemaker, Defibrilator, Pacing Wire, Brain Aneurysm Clip, Implanted Nerve or Bone Graft Simulator, Implanted Breast Tissue Table Worker, Glucose Monitor, or Neulasta Device? : No [...] November. I have recommended she see our grounds foreman in our high risk prevention clinic at [...] pleasant 45- yo female self-referred to the [facility] for surgical consultation for risk [...] 06-12-2021 MG Breast Screening Normal [facility] [employer] Work Phone: LMPon 04-17-2021 Last menstrual period start date 2018 [facility] [employer] Work Phone: Laboratory - Cytologyon 03-16 Cytology report Cyto stain.thin prep Doc (Cvx/Vag) [employer] [employer] Work Phone: Tobacco Screening.on 022 Last menstrual period start date OSCAR2018 [facility] [employer] Work Phone: Tobacco use status CPHS b) No [employer] [facility] [place] Work Phone: NOVEL CORONAVIRUSon 03-16-19 PERFORMED BY [facility] Comment on above: Performed By: #### C COVID #### Testing performed at [place] [id number] SARS-CoV-2 (COVID-19) RNA WILEY+probe Ql (Unsp spec) Not detected Normal NOT DETECTED [facility] Comment on above: Result Comment: Nega tive [...] #### C COVID #### Testing performed at [address] [place] [address] NARRATIVE This test was perfor med using isothermal WILEY and has been approved as Emergency Use Authorization (EUA) for the qualitative detection qoNAXB-IyI-8 nucleic acid. [facility] Comment on above: Performed By: #### C COVID #### Testing performed at [address] [address] SARS-COV-2 RAPIDon 2 [employer] Cyto stain Nom (Cvx/Vag) [ID] [facility] NARRATIVE -1 This test was perfor med using isothermal WILEY and has been approved as Emergency Use Authorization (EUA) for the qualitative detection fzEPMV-SnM-4 nucleic acid. [facility] SARS-CoV-2 (COVID-19) RNA WILEY+probe Ql (Unsp spec) Not detected NOT DETECTED [facility] Comment on above: Negative results do [...] patient is critically ill or clinically deteriorating. [facility] LMPon 01-04-2021 Last menstrual period start date HYSTER [facility] [employer] Work Phone: No Panel Informationon 01-04 [facility] [employer] Work Phone: Coronavirus 2019 RNA by PCR, Symptomaticon 11-14-2020 Date and time of symptom onset [id number] [facility] [employer] [facility] [employer] Work Phone: Coronavirus 2019 RNA by PCR, Symptomatic Detected Abnormal See Below [facility] [employer] [facility] Work Phone: Comment on [...] make patient management decisions.Fact sheet for providers: https://www.fda.gov/media/202157/downloadFact sheet for patients: https://www.fda.gov/media/726190/downloadThis test has received FDA Emergency Use Authorization (EUA) and has been verified by [facility] ([facility]). This test is only authorized for the duration of time that circumstances exist to justify the authorization of the emergency use of in vitro diagnostic tests for the detection of SARS-CoV-2 virus and/or diagnosis of COVID-19 infection under section 564(b)(1) of the Act, 21 U.S.C. 360bbb-3(b)(1), unless the authorization is terminated or revoked sooner. [facility] is certified under CLIA-88 as qualified to perform high complexity testing. Testing is performed in the [facility] laboratories located at [address] [place] [address].COVID CALLED TO CARRIE ARROYO, 11/15/2020 11:18 Tobacco Screening.on 021 Tobacco use status CPHS b) No [employer] [facility] Work Phone: MA Mamm Screen w/CAD if perf and 3D Bilon 06-10-2018 Bilirubin.direct [Mass/Vol] Exam Date/Time: 06/09/2018 13:30 EDT Reason for Exam: PELVIC PAIN BASELINE SCREENING 3D/PRANAV;Screening Report STUDY: Digital mammography screening with pranav; 06/09/2018 1:30 pm ACCESSION NUMBER(S): [id number] ORDERING CLINICIAN: Laura Phelps INDICATION: Screening. COMPARISON: [...] Category 1-Negative Recommendation: Normal interval follow-up Normal [facility] US Pelvis Non-OB Completeon 06-09-2018 US Pelvis Non-OB Complete Exam Date/Time: 06/09/2018 13:35 EDT Reason for Exam: PELVIC PAIN BASELINE SCREENING 3D/PRANAV;Other (please specify) Report STUDY: US Pelvis Non-OB Complete; US Transvaginal Non-OB; 06/09/2018 1:35 pm INDICATION: Menometrorrhagia COMPARISON: None. ACCESSION NUMBER(S): [id number]; [id number] ORDERING CLINICIAN: Laura Phelps TECHNIQUE: Multiple multiplanar [...] Signed by: Valdo Calero MD Technologist: MATT Diaz [facility] US Transvaginal Non-OBon US Transvaginal Non-OB Exam Date/Time: 06/09/2018 13:35 EDT Reason for Exam: PELVIC PAIN;Other (please specify) Report STUDY: US Pelvis Non-OB Complete; US Transvaginal Non-OB; 06/09/2018 1:35 pm INDICATION: Menometrorrhagia COMPARISON: None. ACCESSION NUMBER(S): [id number]; [id number] ORDERING CLINICIAN: Laura Phelps TECHNIQUE: Multiple multiplanar [...] Signed by: Valdo Calero MD Technologist: MATT Normal [facility] IGP W/hpv Rfx [id number] 03-24 Diagnosis: See Ref Lab Report [facility] Comment on above: Performed By: #### 1 [id number] #### JM Send Outs Subsection [facility] [place] [address] Lab Miscellaneouson 03-15-20 18 Status See Ref Lab Report Normal [facility] Comment on above: Order Comment: famil y h/o breast cancer, pt linh bring the kit Performed By: #### 1 [id number] #### JM Send Outs Subsection [address] [place] [address] Test Name myriad lab draw [facility] Comment on above: Order Comment: famil y h/o breast cancer, pt linh bring the kit Performed By: #### 1 [id number] #### JM Send Outs Subsection [facility] [place] [address] Pathology ([facility])on 03-15-2018 Pathology ([facility]) FINAL GYNECOLOGIC CYTOLOGY [id number] ADEQUACYSatisfactory for Evaluation. 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 Amanda Osborne MD Work Phone: [facility] 11-21-2024 15:28-0400 Body temperature 98.9 [degF] Dr. Amanda Osborne MD Work Phone: [facility] 11-21-2024 15:28-0400 Diastolic blood pressure 77 mm[Hg] Dr. Amanda Osborne MD Work Phone: [facility] 11-21-2024 15:28-0400 Heart rate 91 /min Dr. Amanda Osborne MD Work Phone: [facility] 11-21-2024 15:28-0400 Respiratory rate 18 /min Dr. Amanda Osborne MD Work Phone: [facility] 11-21-2024 15:28-0400 SaO2% (BldA) [Mass fraction] 93 % Dr. Amanda Osborne MD Work Phone: [facility] 11-21-2024 15:28-0400 Systolic blood pressure 124 mm[Hg] Dr. Amanda Osborne MD Work Phone: [facility] 11-07-2024 08:15-0400 Body height 165.1 cm Amanda Osborne MD Work Phone: [facility] 11-07-2024 08:15-0400 Body mass index (BMI) [Ratio] 30.45 kg/m2 Amanda Osborne MD Work Phone: [facility] 11-07-2024 08:15-0400 Body weight 83.01 kg Amanda Osborne MD Work Phone: [facility] 11-07-2024 08:15-0400 Diastolic blood pressure 78 mm[Hg] Amanda Osborne MD Work Phone: [facility] 11-07-2024 08:15-0400 Heart rate 72 /min Amanda Osborne MD Work Phone: [facility] 11-07-2024 08:15-0400 Systolic blood pressure 110 mm[Hg] Amanda Osborne MD Work Phone: [facility] 11-03-2024 08:27-0400 Body height 165.[address] Amanda Osborne MD Work Phone: 3(814)684-232156 [place] [address] 11-03-2024 08:27-0400 Body mass index (BMI) [Ratio] 30.1 kg/m2 Dr. Amanda Osborne MD Work Phone: 3(225)695-169256 [place] [address] 11-03-2024 08:27-0400 Body weight 82.[address] Amanda Osborne MD Work Phone: 8(141)456-709906 [place] [address] 11-03-2024 08:27-0400 Diastolic blood pressure 78 mm[Hg] Dr. Amanda Osborne MD Work Phone: 5(361)802-333906 [place] [address] 11-03-2024 08:27-0400 Heart rate 89 /min Dr. Amanda Osborne MD Work Phone: 9(139)293-756606 [place] [address] 11-03-2024 08:27-0400 Respiratory rate 17 /min Dr. Amanda Osborne MD Work Phone: 6(656)792-003106 [place] [address] 11-03-2024 08:27-0400 SaO2% (BldA) [Mass fraction] 93 % Dr. Amanda Osborne MD Work Phone: 9(935)347-587106 [place] [address] 11-03-2024 08:27-0400 Systolic blood pressure 125 mm[Hg] Dr. Amanda Osborne MD Work Phone: 0(258)014-920456 [place] [address] 10-13-2024 15:39-0400 Body height 165.[address] Amanda Osborne MD Work Phone: 5(338)111-345506 [place] [address] 10-13-2024 15:39-0400 Body temperature 98.1 [degF] Dr. Amanda Osborne MD Work Phone: 3(242)623-164856 [place] [address] 10-13-2024 15:39-0400 Diastolic blood pressure 71 mm[Hg] Dr. Amanda Osborne MD Work Phone: 7(654)963-866656 [place] [address] 10-13-2024 15:39-0400 Heart rate 86 /min Dr. Amanda Osborne MD Work Phone: [facility] 10-13-2024 15:39-0400 Respiratory rate 18 /min Dr. Amanda Osborne MD Work Phone: [facility] 10-13-2024 15:39-0400 SaO2% (BldA) [Mass fraction] 93 % Dr. Amanda Osborne MD Work Phone: [facility] 10-13-2024 15:39-0400 Systolic blood pressure 115 mm[Hg] Dr. Amanda Osborne MD Work Phone: 6(935)023-687356 [place] [address] 09-01-2024 10:00-0400 Diastolic blood pressure 79 mm[Hg] Dr. Amanda Osborne MD Work Phone: 5(557)997-087556 [place] [address] 09-01-2024 10:00-0400 Respiratory rate 18 /min Dr. Amanda Osborne MD Work Phone: 8(102)526-720156 [place] [address] 09-01-2024 10:00-0400 Systolic blood pressure 121 mm[Hg] Dr. Amanda Osborne MD Work Phone: 9(322)373-547456 [place] [address] 08-25-2024 10:23-0400 Diastolic blood pressure 70 mm[Hg] Dr. Amanda Osborne MD Work Phone: 1(182)153-450656 [place] [address] 08-25-2024 10:23-0400 Heart rate 71 /min Dr. Amanda Osborne MD Work Phone: [facility] 08-25-2024 10:23-0400 Respiratory rate 18 /min Dr. Amanda Osborne MD Work Phone: [facility] 08-25-2024 10:23-0400 SaO2% (BldA) [Mass fraction] 91 % Dr. Amanda Osborne MD Work Phone: [facility] 08-25-2024 10:23-0400 Systolic blood pressure 114 mm[Hg] Dr. Amanda Osborne MD Work Phone: 6(406)484-825356 [place] [address] 08-18-2024 16:23-0400 Body height 165.[address] Amanda Osborne MD Work Phone: 6(631)952-172156 [place] [address] 08-18-2024 16:23-0400 Diastolic blood pressure 72 mm[Hg] Dr. Amanda Osborne MD Work Phone: 7(370)698-554706 [place] [address] 08-18-2024 16:23-0400 Heart rate 70 /min Dr. Amanda Osborne MD Work Phone: 0(552)318-547006 [place] [address] 08-18-2024 16:23-0400 Respiratory rate 18 /min Dr. Amanda Osborne MD Work Phone: 9(596)077-967406 [place] [address] 08-18-2024 16:23-0400 SaO2% (BldA) [Mass fraction] 94 % Dr. Amanda Osborne MD Work Phone: 2(932)996-788206 [place] [address] 08-18-2024 16:23-0400 Systolic blood pressure 114 mm[Hg] Dr. Amanda Osborne MD Work Phone: 1(966)176-355206 [place] [address] 08-17-2024 15:10-0400 Body temperature 98.4 [degF] Dr. Amanda Osborne MD Work Phone: 3(431)207-292206 [place] [address] 08-17-2024 15:10-0400 Diastolic blood pressure 61 mm[Hg] Dr. Amanda Osborne MD Work Phone: 8(343)349-994306 [place] [address] 08-17-2024 15:10-0400 Heart rate 80 /min Dr. Amanda Osborne MD Work Phone: 9(567)833-101806 [place] [address] 08-17-2024 15:10-0400 Respiratory rate 16 /min Dr. Amanda Osborne MD Work Phone: 3(968)543-300706 [place] [address] 08-17-2024 15:10-0400 SaO2% (BldA) [Mass fraction] 95 % Dr. Amanda Osborne MD Work Phone: 1(708)595-277706 [place] [address] 08-17-2024 15:10-0400 Systolic blood pressure 104 mm[Hg] Dr. Amanda Osborne MD Work Phone: [facility] 08-17-2024 13:00-0400 Inhaled oxygen flow rate 2 L/min Dr. Amanda Osborne MD Work Phone: [facility] 08-17-2024 06:29-0400 Body height 165.[address] Amanda Osborne MD Work Phone: [facility] 08-17-2024 06:29-0400 Body mass index (BMI) [Ratio] 29.7 kg/m2 Dr. Amanda Osborne MD Work Phone: 3(705)189-970256 [place] [address] 08-17-2024 06:29-0400 Body weight [address] Amanda Osborne MD Work Phone: [facility] 07-28-2024 15:03-0400 Body height 165.[address] Amanda Osborne MD Work Phone: [facility] 07-28-2024 15:03-0400 Body temperature 97.8 [degF] Dr. Amanda Osborne MD Work Phone: [facility] 07-28-2024 15:03-0400 Diastolic blood pressure 69 mm[Hg] Dr. Amanda Osborne MD Work Phone: [facility] 07-28-2024 15:03-0400 Heart rate 96 /min Dr. Amanda Osborne MD Work Phone: [facility] 07-28-2024 15:03-0400 Respiratory rate 18 /min Dr. Amanda Osborne MD Work Phone: [facility] 07-28-2024 15:03-0400 SaO2% (BldA) [Mass fraction] 93 % Dr. Amanda Osborne MD Work Phone: [facility] 07-28-2024 15:03-0400 Systolic blood pressure 105 mm[Hg] Dr. Amanda Osborne MD Work Phone: [facility] 07-07-2024 15:45-0400 Diastolic blood pressure 78 mm[Hg] Dr. Amanda Osborne MD Work Phone: 5(678)193-422256 [place] [address] 07-07-2024 15:45-0400 Heart rate 82 /min Dr. Amanda Osborne MD Work Phone: 2(569)808-145756 [place] [address] 07-07-2024 15:45-0400 Respiratory rate 18 /min Dr. Amanda Osborne MD Work Phone: 4(521)980-312856 [place] [address] 07-07-2024 15:45-0400 SaO2% (BldA) [Mass fraction] 94 % Dr. Amanda Osborne MD Work Phone: 9(073)006-647256 [place] [address] 07-07-2024 15:45-0400 Systolic blood pressure 121 mm[Hg] Dr. Amanda Osborne MD Work Phone: 9(466)008-443456 [place] [address] 06-20-2024 08:31-0400 Body mass index (BMI) [Ratio] 28.6 kg/m2 Dr. Amanda Osborne MD Work Phone: 8(341)478-303556 [place] [address] 06-20-2024 08:31-0400 Body temperature 97 [degF] Dr. Amanda Osborne MD Work Phone: 3(559)497-718656 [place] [address] 06-20-2024 08:31-0400 Diastolic blood pressure 65 mm[Hg] Dr. Amanda Osborne MD Work Phone: 9(575)642-402556 [place] [address] 06-20-2024 08:31-0400 Heart rate 72 /min Dr. Amanda Osborne MD Work Phone: 9(590)791-049856 [place] [address] 06-20-2024 08:31-0400 Respiratory rate 18 /min Dr. Amanda Osborne MD Work Phone: 9(068)340-070756 [place] [address] 06-20-2024 08:31-0400 Systolic blood pressure 134 mm[Hg] Dr. Amanda Osborne MD Work Phone: 2(874)653-814056 [place] [address] 06-14-2024 00:38-0400 Body weight 78.[address] Amanda Osborne MD Work Phone: [facility] 06-06-2024 08:57-0400 Body mass index (BMI) [Ratio] 28.6 kg/m2 Dr. Amanda Osborne MD Work Phone: [facility] 06-06-2024 08:57-0400 Body temperature 97 [degF] Dr. Amanda Osborne MD Work Phone: 6(587)745-361256 [place] [address] 06-06-2024 08:57-0400 Diastolic blood pressure 70 mm[Hg] Dr. Amanda Osborne MD Work Phone: 1(151)152-327256 [place] [address] 06-06-2024 08:57-0400 Heart rate 61 /min Dr. Amanda Osborne MD Work Phone: 0(025)689-193356 [place] [address] 06-06-2024 08:57-0400 Respiratory rate 18 /min Dr. Amanda Osborne MD Work Phone: 3(432)902-862656 [place] [address] 06-06-2024 08:57-0400 Systolic blood pressure 131 mm[Hg] Dr. Amanda Osborne MD Work Phone: [facility] 05-16-2024 10:22-0500 Body height 165.[address] Amanda Osborne MD Work Phone: 2(694)371-638556 [place] [address] 05-16-2024 10:22-0500 Body weight 78.[address] Amanda Osborne MD Work Phone: 1(055)988-197156 [place] [address] 05-10-2024 15:28-0500 Body temperature 98.3 [degF] Dr. Amanda Osborne MD Work Phone: 7(711)363-290156 [place] [address] 05-10-2024 15:28-0500 Diastolic blood pressure 76 mm[Hg] Dr. Amanda Osborne MD Work Phone: [facility] 05-10-2024 15:28-0500 Heart rate 82 /min Dr. Amanda Osborne MD Work Phone: [facility] 05-10-2024 15:28-0500 Respiratory rate 18 /min Dr. Amanda Osborne MD Work Phone: 9(383)126-988056 [place] [address] 05-10-2024 15:28-0500 SaO2% (BldA) [Mass fraction] 97 % Dr. Amanda Osborne MD Work Phone: 0(245)182-512356 [place] [address] 05-10-2024 15:28-0500 Systolic blood pressure 157 mm[Hg] Dr. Amanda Osborne MD Work Phone: 7(188)247-752556 [place] [address] 05-06-2024 14:36-0500 Diastolic blood pressure 82 mm[Hg] Dr. Amanda Osborne MD Work Phone: 3(534)872-804556 [place] [address] 05-06-2024 14:36-0500 Heart rate 100 /min Dr. Amanda Osborne MD Work Phone: 4(542)847-818756 [place] [address] 05-06-2024 14:36-0500 Respiratory rate 18 /min Dr. Amanda Osborne MD Work Phone: 0(471)153-755556 [place] [address] 05-06-2024 14:36-0500 SaO2% (BldA) [Mass fraction] 94 % Dr. Amanda Osborne MD Work Phone: 1(817)938-650956 [place] [address] 05-06-2024 14:36-0500 Systolic blood pressure 148 mm[Hg] Dr. Amanda Osborne MD Work Phone: 5(868)702-194856 [place] [address] 04-26-2024 14:59-0500 Body temperature 98.3 [degF] Dr. Amanda Osborne MD Work Phone: 7(254)594-550956 [place] [address] 04-26-2024 14:59-0500 Diastolic blood pressure 77 mm[Hg] Dr. Amanda Osborne MD Work Phone: 7(817)699-606056 [place] [address] 04-26-2024 14:59-0500 Heart rate 73 /min Dr. Amanda Osborne MD Work Phone: 2(899)181-980656 [place] [address] 04-26-2024 14:59-0500 Respiratory rate 18 /min Dr. Amanda Osborne MD Work Phone: 5(424)065-699056 [place] [address] 04-26-2024 14:59-0500 SaO2% (BldA) [Mass fraction] 94 % Dr. Amanda Osborne MD Work Phone: 1(663)554-041256 [place] [address] 04-26-2024 14:59-0500 Systolic blood pressure 126 mm[Hg] Dr. Amanda Osborne MD Work Phone: 5(873)725-138356 [place] [address] 04-19-2024 16:05-0500 Body temperature 98.5 [degF] Dr. Amanda Osborne MD Work Phone: 7(720)179-649406 [place] [address] 04-19-2024 16:05-0500 Diastolic blood pressure 78 mm[Hg] Dr. Amanda Osborne MD Work Phone: 8(832)329-736306 [place] [address] 04-19-2024 16:05-0500 Heart rate 86 /min Dr. Amanda Osborne MD Work Phone: 0(800)413-393356 [place] [address] 04-19-2024 16:05-0500 Respiratory rate 18 /min Dr. Amanda Osborne MD Work Phone: 5(689)789-175306 [place] [address] 04-19-2024 16:05-0500 SaO2% (BldA) [Mass fraction] 94 % Dr. Amanda Osborne MD Work Phone: 7(296)052-051856 [place] [address] 04-19-2024 16:05-0500 Systolic blood pressure 144 mm[Hg] Dr. Amanda Osborne MD Work Phone: 7(478)030-079556 [place] [address] 04-11-2024 15:07-0500 Body temperature 98.5 [degF] Dr. Amanda Osborne MD Work Phone: 4(112)619-600856 [place] [address] 04-11-2024 15:07-0500 Diastolic blood pressure 79 mm[Hg] Dr. Amanda Osborne MD Work Phone: 3(066)378-454656 [place] [address] 04-11-2024 15:07-0500 Heart rate 75 /min Dr. Amanda Osborne MD Work Phone: 9(214)051-268156 [place] [address] 04-11-2024 15:07-0500 Respiratory rate 18 /min Dr. Amanda Osborne MD Work Phone: 5(648)902-642056 [place] [address] 04-11-2024 15:07-0500 SaO2% (BldA) [Mass fraction] 91 % Dr. Amanda Osborne MD Work Phone: 8(771)881-393856 [place] [address] 04-11-2024 15:07-0500 Systolic blood pressure 144 mm[Hg] Dr. Amanda Osborne MD Work Phone: 7(787)097-299806 [place] [address] 04-07-2024 11:07-0500 Body temperature 98.1 [degF] Dr. Amanda Osborne MD Work Phone: 3(805)389-586106 [place] [address] 04-07-2024 11:07-0500 Diastolic blood pressure 85 mm[Hg] Dr. Amanda Osborne MD Work Phone: 5(687)496-060206 [place] [address] 04-07-2024 11:07-0500 Heart rate 80 /min Dr. Amanda Osborne MD Work Phone: 8(602)358-113706 [place] [address] 04-07-2024 11:07-0500 Respiratory rate 18 /min Dr. Amanda Osborne MD Work Phone: 7(217)244-303706 [place] [address] 04-07-2024 11:07-0500 SaO2% (BldA) [Mass fraction] 91 % Dr. Amanda Osborne MD Work Phone: 9(065)347-565856 [place] [address] 04-07-2024 11:07-0500 Systolic blood pressure 125 mm[Hg] Dr. Amanda Osborne MD Work Phone: 9(285)688-297206 [place] [address] 04-03-2024 10:10-0500 Body temperature 98.8 [degF] Dr. Amanda Osborne MD Work Phone: 9(649)888-197906 [place] [address] 04-03-2024 10:10-0500 Diastolic blood pressure 73 mm[Hg] Dr. Amanda Osborne MD Work Phone: 9(561)503-799356 [place] [address] 04-03-2024 10:10-0500 Heart rate 80 /min Dr. Amanda Osborne MD Work Phone: 4(427)043-697806 [place] [address] 04-03-2024 10:10-0500 Respiratory rate 18 /min Dr. Amanda Osborne MD Work Phone: 3(831)054-451406 [place] [address] 04-03-2024 10:10-0500 SaO2% (BldA) [Mass fraction] 95 % Dr. Amanda Osborne MD Work Phone: 6(192)109-722206 [place] [address] 04-03-2024 10:10-0500 Systolic blood pressure 126 mm[Hg] Dr. Amadna Osborne MD Work Phone: 4(375)919-431906 [place] [address] 04-03-2024 04:13-0500 Body mass index (BMI) [Ratio] 30.7 kg/m2 Dr. Amanda Osborne MD Work Phone: 2(567)414-660806 [place] [address] 04-03-2024 04:13-0500 Body weight 83.[address] Amanda Osborne MD Work Phone: 5(963)080-588706 [place] [address] 04-03-2024 04:10-0500 Inhaled oxygen flow rate 1 L/min Dr. Amanda Osborne MD Work Phone: 2(276)193-183806 [place] [address] 03-30-2024 15:33-0500 Body mass index (BMI) [Ratio] 29.7 kg/m2 Dr. Amanda Osborne MD Work Phone: 7(793)903-235106 [place] [address] 03-30-2024 15:33-0500 Body temperature 98.9 [degF] Dr. Amanda Osborne MD Work Phone: 9(127)812-438706 [place] [address] 03-30-2024 15:33-0500 Body weight 83.[address] Amanda Osborne MD Work Phone: 0(139)614-918406 [place] [address] 03-30-2024 15:33-0500 Diastolic blood pressure 76 mm[Hg] Dr. Amanda Osborne MD Work Phone: 6(927)230-157806 [place] [address] 03-30-2024 15:33-0500 Heart rate 75 /min Dr. Amanda Osborne MD Work Phone: [facility] 03-30-2024 15:33-0500 Respiratory rate 18 /min Dr. Amanda Osborne MD Work Phone: [facility] 03-30-2024 15:33-0500 SaO2% (BldA) [Mass fraction] 91 % Dr. Amanda Osborne MD Work Phone: [facility] 03-30-2024 15:33-0500 Systolic blood pressure 114 mm[Hg] Dr. Amanda Osborne MD Work Phone: [facility] 03-21-2024 08:23-0500 Body height 165.1 cm Amanda Osborne MD Work Phone: [facility] 03-21-2024 08:23-0500 Body mass index (BMI) [Ratio] 30.79 kg/m2 Amanda Osborne MD Work Phone: [facility] 03-21-2024 08:23-0500 Body weight 83.92 kg Amanda Osborne MD Work Phone: [facility] 03-21-2024 08:23-0500 Diastolic blood pressure 78 mm[Hg] Amanda Osborne MD Work Phone: [facility] 03-21-2024 08:23-0500 Heart rate 98 /min Amanda Osborne MD Work Phone: [facility] 03-21-2024 08:23-0500 SaO2% (BldA) [Mass fraction] 95 % Amanda Osborne MD Work Phone: [facility] 03-21-2024 08:23-0500 Systolic blood pressure 138 mm[Hg] Amanda Osborne MD Work Phone: [facility] 03-03-2024 15:02-0500 Body mass index (BMI) [Ratio] 29.7 kg/m2 Dr. Amanda Osborne MD Work Phone: [facility] [place] 03-03-2024 15:02-0500 Body temperature 98.3 [degF] Dr. Amanda Osborne MD Work Phone: [facility] [place] 03-03-2024 15:02-0500 Body weight 83.[address] Amanda Osborne MD Work Phone: [facility] [place] 03-03-2024 15:02-0500 Diastolic blood pressure 77 mm[Hg] Dr. Amanda Osborne MD Work Phone: [facility] [place] 03-03-2024 15:02-0500 Heart rate 71 /min Dr. Amanda Osborne MD Work Phone: [facility] [place] 03-03-2024 15:02-0500 Respiratory rate 18 /min Dr. Amanda Osborne MD Work Phone: [facility] [place] 03-03-2024 15:02-0500 SaO2% (BldA) [Mass fraction] 91 % Dr. Amanda Osborne MD Work Phone: [facility] [place] 03-03-2024 15:02-0500 Systolic blood pressure 120 mm[Hg] Dr. Amanda Osborne MD Work Phone: [facility] [place] 03-01-2024 15:40-0500 Body height 165.1 cm Zenaida Silva MD Work Phone: [facility] 03-01-2024 15:40-0500 Body mass index (BMI) [Ratio] 30.65 kg/m2 Zenaida Silva MD Work Phone: [facility] 03-01-2024 15:40-0500 Body weight 83.55 kg Zenaida Silva MD Work Phone: [facility] 03-01-2024 15:40-0500 Diastolic blood pressure 76 mm[Hg] Zenaida Silva MD Work Phone: [facility] 03-01-2024 15:40-0500 Systolic blood pressure 132 mm[Hg] Zenaida Silva MD Work Phone: [facility] 01-05-2024 08:31-0400 Body height 165.1 cm Amanda Osborne MD Work Phone: [facility] 01-05-2024 08:31-0400 Body mass index (BMI) [Ratio] 30.6 kg/m2 Amanda Osborne MD Work Phone: [facility] 01-05-2024 08:31-0400 Body weight 83.42 kg Amanda Osborne MD Work Phone: [facility] 01-05-2024 08:31-0400 Diastolic blood pressure 76 mm[Hg] Amanda Osborne MD Work Phone: [facility] 01-05-2024 08:31-0400 Heart rate 65 /min Amanda Osborne MD Work Phone: [facility] 01-05-2024 08:31-0400 SaO2% (BldA) [Mass fraction] 96 % Amanda Osborne MD Work Phone: [facility] 01-05-2024 08:31-0400 Systolic blood pressure 110 mm[Hg] Amanda Osborne MD Work Phone: [facility] 08-04-2023 09:29-0400 Body height 165.1 cm Ab Puri APRN-MATERIALS BUYER Work Phone: [facility] 08-04-2023 09:29-0400 Body mass index (BMI) [Ratio] 29.12 kg/m2 Ab Puri APRN-MATERIALS BUYER Work Phone: [facility] 08-04-2023 09:29-0400 Body weight 79.38 kg Ab Puri APRN-MATERIALS BUYER Work Phone: [facility] 08-04-2023 09:29-0400 Diastolic blood pressure 74 mm[Hg] Ab Puri RADIO TIME SALESPERSON-MATERIALS BUYER Work Phone: [facility] 08-04-2023 09:29-0400 Heart rate 71 /min Ab Puri [employer] SALESPERSON[employer] BU[employer]ER Work Phone: [facility] 08-04-2023 09:29-0400 Respiratory rate 18 /min Ab Puri [employer] TIME SALESPERSON-[employer] BU[employer]ER Work Phone: [facility] 08-04-2023 09:29-0400 SaO2% (BldA) [Mass fraction] 94 % Ab Puri [employer]IO TIME SALESPERSON-[employer] BU[employer]ER Work Phone: [facility] 08-04-2023 09:29-0400 Systolic blood pressure 134 mm[Hg] Ab Puri [employer]IO TIME SALESPERSON-[employer] BU[employer]ER Work Phone: [facility] 04-17-2023 15:17-0500 Body height 165.1 cm Amanda Osborne MD Work Phone: [facility] 04-17-2023 15:17-0500 Body mass index (BMI) [Ratio] 29.27 kg/m2 Amanda Osborne MD Work Phone: [facility] 04-17-2023 15:17-0500 Body weight 79.79 kg Amanda Osborne MD Work Phone: [facility] 04-17-2023 15:17-0500 Diastolic blood pressure 76 mm[Hg] Amanda Osborne MD Work Phone: [facility] 04-17-2023 15:17-0500 Heart rate 52 /min Amanda Osborne MD Work Phone: [facility] 04-17-2023 15:17-0500 SaO2% (BldA) [Mass fraction] 98 % Amanda Osborne MD Work Phone: [facility] 04-17-2023 15:17-0500 Systolic blood pressure 110 mm[Hg] Amanda Osborne MD Work Phone: [facility] 02-24-2023 08:43-0500 Body height 165.1 cm Zenaida Silva MD Work Phone: [facility] 02-24-2023 08:43-0500 Body mass index (BMI) [Ratio] 29.82 kg/m2 Zenaida Silva MD Work Phone: [facility] 02-24-2023 08:43-0500 Body weight 81.28 kg Zenaida Silva MD Work Phone: [facility] 02-24-2023 08:43-0500 Diastolic blood pressure 72 mm[Hg] Zenaida Silva MD Work Phone: [facility] 02-24-2023 08:43-0500 Systolic blood pressure 136 mm[Hg] Zenaida Silva MD Work Phone: [facility] 01-23-2023 15:27-0500 Body temperature 97.9 [degF] Dr. Amanda Osborne Work Phone: [facility] [place] 01-23-2023 15:27-0500 Diastolic blood pressure 54 mm[Hg] Dr. Amanda Osborne Work Phone: [facility] [place] 01-23-2023 15:27-0500 Heart rate 80 /min Dr. Amanda Osborne Work Phone: [facility] [place] 01-23-2023 15:27-0500 Respiratory rate 16 /min Dr. Amanda Osborne Work Phone: [facility] [place] 01-23-2023 15:27-0500 SaO2% (BldA) [Mass fraction] 94 % Dr. Amanda Osborne Work Phone: [facility] [place] 01-23-2023 15:27-0500 Systolic blood pressure 120 mm[Hg] Dr. Amanda Osborne Work Phone: [facility] [place] 01-22-2023 01:51-0500 Inhaled oxygen flow rate 2 L/min Dr. Amanda Osborne Work Phone: [facility] [place] 01-21-2023 18:18-0500 Body height 167.[address] Amanda Osborne Work Phone: [facility] [place] 01-21-2023 18:18-0500 Body mass index (BMI) [Ratio] 28.8 kg/m2 Dr. Amanda Osborne Work Phone: [facility] [place] 01-21-2023 18:18-0500 Body weight [address] Amanda Osborne Work Phone: 7(628)610-118156 [place] [address] 01-13-2023 11:38-0400 Body temperature 98.2 [degF] Dr. Amanda Osborne Work Phone: 8(788)094-971456 [place] [address] 01-13-2023 11:38-0400 Heart rate 74 /min Dr. Amanda sOborne Work Phone: 2(676)926-147056 [place] [address] 01-13-2023 11:38-0400 Respiratory rate 16 /min Dr. Amanda Osborne Work Phone: [facility] [place] 01-13-2023 11:38-0400 SaO2% (BldA) [Mass fraction] 96 % Dr. Amanda Osborne Work Phone: [facility] [place] 12-23-2022 13:14-0400 Body temperature 98.6 [degF] Dr. Amanda Osborne Work Phone: 2(108)304-187256 [place] [address] 12-23-2022 13:14-0400 Heart rate 107 /min Dr. Amanda Osborne Work Phone: [facility] [place] 12-23-2022 13:14-0400 Respiratory rate 16 /min Dr. Amanda Osborne Work Phone: [facility] [place] 12-23-2022 13:14-0400 SaO2% (BldA) [Mass fraction] 97 % Dr. Amanda Osborne Work Phone: 1(695)155-568356 [place] [address] 12-10-2022 15:23-0400 Body temperature 98.4 [degF] Dr. Amanda Osborne Work Phone: [facility] [place] 12-10-2022 15:23-0400 Diastolic blood pressure 76 mm[Hg] Dr. Amanda Osborne Work Phone: [facility] [place] 12-10-2022 15:23-0400 Heart rate 76 /min Dr. Amanda Osborne Work Phone: 2(736)825-436956 [place] [address] 12-10-2022 15:23-0400 Respiratory rate 16 /min Dr. Amanda Osborne Work Phone: 9(782)863-155256 [place] [address] 12-10-2022 15:23-0400 SaO2% (BldA) [Mass fraction] 92 % Dr. Amanda Osborne Work Phone: 9(093)797-816356 [place] [address] 12-10-2022 15:23-0400 Systolic blood pressure 130 mm[Hg] Dr. Amanda Osborne Work Phone: 4(347)729-801556 [place] [address] 11-24-2022 16:51-0400 Body temperature 98.7 [degF] Dr. Amanda Osborne Work Phone: 9(557)037-662856 [place] [address] 11-24-2022 16:51-0400 Heart rate 90 /min Dr. Amanda Osborne Work Phone: 0(554)209-289356 [place] [address] 11-24-2022 16:51-0400 Respiratory rate 18 /min Dr. Amanda Osborne Work Phone: 5(117)187-356656 [place] [address] 11-24-2022 16:51-0400 SaO2% (BldA) [Mass fraction] 94 % Dr. Amanda Osborne Work Phone: 6(139)935-481056 [place] [address] 11-13-2022 13:36-0400 Body temperature 98.4 [degF] Dr. Amanda Osborne Work Phone: 5(321)185-025956 [place] [address] 11-13-2022 13:36-0400 Heart rate 84 /min Dr. Amanda Osborne Work Phone: 9(857)330-870656 [place] [address] 11-13-2022 13:36-0400 Respiratory rate 16 /min Dr. Amanda Osborne Work Phone: [facility] [place] 11-13-2022 13:36-0400 SaO2% (BldA) [Mass fraction] 95 % Dr. Amanda Osborne Work Phone: [facility] [place] 10-30-2022 13:28-0400 Body temperature 98.5 [degF] Dr. Amanda Osborne Work Phone: 7(452)664-056156 [place] [address] 10-30-2022 13:28-0400 Heart rate 83 /min Dr. Amanda Osborne Work Phone: 3(717)904-124956 [place] [address] 10-30-2022 13:28-0400 Respiratory rate 16 /min Dr. Amanda Osborne Work Phone: 1(628)927-076256 [place] [address] 10-30-2022 13:28-0400 SaO2% (BldA) [Mass fraction] 95 % Dr. Amanda Osborne Work Phone: 8(594)580-548156 [place] [address] 10-23-2022 10:21-0400 Body height 167.[address] Amanda Osborne Work Phone: 7(193)829-889056 [place] [address] 10-23-2022 10:21-0400 Body temperature 98.1 [degF] Dr. Amanda Osborne Work Phone: 1(554)227-124856 [place] [address] 10-23-2022 10:21-0400 Heart rate 94 /min Dr. Amanda Osborne Work Phone: [facility] [place] 10-23-2022 10:21-0400 Respiratory rate 16 /min Dr. Amanda Osborne Work Phone: 1(216)534-496956 [place] [address] 10-23-2022 10:21-0400 SaO2% (BldA) [Mass fraction] 94 % Dr. Amanda Osborne Work Phone: [facility] [place] 10-16-2022 11:27-0400 Body temperature 98.2 [degF] Dr. Amanda Osborne Work Phone: [facility] [place] 10-16-2022 11:27-0400 Heart rate 60 /min Dr. Amanda Osborne Work Phone: 0(757)471-705004 [place] [address] 10-16-2022 11:27-0400 Respiratory rate 16 /min Dr. Amanda Osborne Work Phone: [facility] [place] 10-16-2022 11:27-0400 SaO2% (BldA) [Mass fraction] 96 % Dr. Amanda Osborne Work Phone: 6(749)064-109256 [place] [address] 10-09-2022 11:51-0400 Body temperature 98.2 [degF] Dr. Amanda Osborne Work Phone: 8(584)938-344656 [place] [address] 10-09-2022 11:51-0400 Heart rate 86 /min Dr. Amanda Osborne Work Phone: 7(840)815-811456 [place] [address] 10-09-2022 11:51-0400 Respiratory rate 16 /min Dr. Amanda Osborne Work Phone: 6(628)903-884056 [place] [address] 10-09-2022 11:51-0400 SaO2% (BldA) [Mass fraction] 92 % Dr. Amanda Osborne Work Phone: 9(024)217-722856 [place] [address] 10-05-2022 10:18-0400 Body temperature 98.2 [degF] Dr. Amanda Osborne Work Phone: 5(623)766-096156 [place] [address] 10-05-2022 10:18-0400 Diastolic blood pressure 55 mm[Hg] Dr. Amanda Osborne Work Phone: 1(189)361-840956 [place] [address] 10-05-2022 10:18-0400 Heart rate 60 /min Dr. Amanda Osborne Work Phone: 7(556)061-971956 [place] [address] 10-05-2022 10:18-0400 Respiratory rate 16 /min Dr. Amanda Osborne Work Phone: [facility] [place] 10-05-2022 10:18-0400 SaO2% (BldA) [Mass fraction] 95 % Dr. Amanda Osborne Work Phone: [facility] [place] 10-05-2022 10:18-0400 Systolic blood pressure 116 mm[Hg] Dr. Amanda Osborne Work Phone: [facility] [place] 10-03-2022 15:13-0400 Body height 167.[address] Amanda Osborne Work Phone: 9(227)950-153756 [place] [address] 10-03-2022 15:13-0400 Body mass index (BMI) [Ratio] 27.8 kg/m2 Dr. Amanda Osborne Work Phone: [facility] [place] 10-03-2022 15:13-0400 Body weight 78.[address] Amanda Osborne Work Phone: [facility] [place] 10-03-2022 13:15-0400 Inhaled oxygen flow rate 4 L/min Dr. Amanda Osborne Work Phone: [facility] [place] 09-23-2022 08:32-0400 Body mass index (BMI) [Ratio] 27.6 kg/m2 Dr. Amanda Osborne Work Phone: [facility] [place] 09-23-2022 08:32-0400 Body temperature 97.7 [degF] Dr. Amanda Osborne Work Phone: [facility] [place] 09-23-2022 08:32-0400 Body weight 77.[address] Amanda Osborne Work Phone: [facility] [place] 09-23-2022 08:32-0400 Diastolic blood pressure 72 mm[Hg] Dr. Amanda Osborne Work Phone: [facility] [place] 09-23-2022 08:32-0400 Heart rate 60 /min Dr. Amanda Osborne Work Phone: [facility] [place] 09-23-2022 08:32-0400 Respiratory rate 16 /min Dr. Amanda Osborne Work Phone: [facility] [place] 09-23-2022 08:32-0400 SaO2% (BldA) [Mass fraction] 96 % Dr. Amanda Osborne Work Phone: [facility] [place] 09-23-2022 08:32-0400 Systolic blood pressure 115 mm[Hg] Dr. Amanda Osborne Work Phone: [facility] [place] 07-29-2022 14:54-0400 Body temperature 98.6 [degF] Dr. Amanda Osborne Work Phone: [facility] [place] 07-29-2022 14:54-0400 Heart rate 87 /min Dr. Amanda Osborne Work Phone: [facility] [place] 07-29-2022 14:54-0400 Respiratory rate 18 /min Dr. Amanda Osborne Work Phone: [facility] [place] 07-29-2022 14:54-0400 SaO2% (BldA) [Mass fraction] 95 % Dr. Amanda Osborne Work Phone: [facility] [place] 07-01-2022 14:51-0400 Body temperature 97.1 [degF] Dr. Amanda Osborne Work Phone: [facility] [place] 07-01-2022 14:51-0400 Heart rate 75 /min Dr. Amanda Osborne Work Phone: [facility] [place] 07-01-2022 14:51-0400 Respiratory rate 17 /min Dr. Amanda Osborne Work Phone: [facility] [place] 07-01-2022 14:51-0400 SaO2% (BldA) [Mass fraction] 93 % Dr. Amanda Osborne Work Phone: [facility] [place] 06-16-2022 15:11-0400 Body temperature 98.4 [degF] Dr. Amanda Osborne Work Phone: [facility] [place] 04-03-2023 15:11-0400 Heart rate 77 /min Dr. Amanda Osborne Work Phone: [facility] [place] 06-16-2022 15:11-0400 Respiratory rate 18 /min Dr. Amanda Osborne Work Phone: [facility] [place] 06-16-2022 15:11-0400 SaO2% (BldA) [Mass fraction] 96 % Dr. Amanda Osborne Work Phone: [facility] [place] 06-10-2022 13:47-0400 Body temperature 98.5 [degF] Dr. Zenaida Barrett Work Phone: [facility] [place] 06-10-2022 13:47-0400 Heart rate 93 /min Dr. Zenaida Barrett Work Phone: [facility] [place] 06-10-2022 13:47-0400 Respiratory rate 18 /min Dr. Zenaida Barrett Work Phone: [facility] [place] 06-10-2022 13:47-0400 SaO2% (BldA) [Mass fraction] 96 % Dr. Zenaida Barrett Work Phone: [facility] [place] 06-02-2022 15:24-0400 Body temperature 98.7 [degF] Dr. Zenaida Barrett Work Phone: [facility] [place] 06-02-2022 15:24-0400 Diastolic blood pressure 68 mm[Hg] Dr. Zenaida Barrett Work Phone: [facility] [place] 06-02-2022 15:24-0400 Heart rate 72 /min Dr. Zenaida Barrett Work Phone: [facility] [place] 06-02-2022 15:24-0400 Respiratory rate 18 /min Dr. Zenaida Barrett Work Phone: [facility] [place] 06-02-2022 15:24-0400 SaO2% (BldA) [Mass fraction] 97 % Dr. Zenaida Barrett Work Phone: [facility] [place] 06-02-2022 15:24-0400 Systolic blood pressure 117 mm[Hg] Dr. Zenaida Barrett Work Phone: [facility] [place] 05-30-2022 16:49-0400 Body height 167.[address] Zenaida Barrett Work Phone: [facility] [place] 05-30-2022 16:49-0400 Body mass index (BMI) [Ratio] 27.3 kg/m2 Dr. Zenaida Barrett Work Phone: [facility] [place] 05-30-2022 16:49-0400 Body weight 76.[address] Zenaida Barrett Work Phone: [facility] [place] 05-30-2022 16:00-0400 Inhaled oxygen flow rate 4 L/min Dr. Zenaida Barrett Work Phone: [facility] [place] 05-27-2022 09:30-0400 Body temperature 97.4 [degF] Dr. Zenaida Barrett Work Phone: [facility] [place] 05-27-2022 09:30-0400 Diastolic blood pressure 64 mm[Hg] Dr. Zenaida Barrett Work Phone: [facility] [place] 05-27-2022 09:30-0400 Heart rate 59 /min Dr. Zenaida Barrett Work Phone: [facility] [place] 05-27-2022 09:30-0400 Respiratory rate 17 /min Dr. Zenaida Barrett Work Phone: [facility] [place] 05-27-2022 09:30-0400 Systolic blood pressure 106 mm[Hg] Dr. Zenaida Barrett Work Phone: [facility] [place] 05-22-2022 11:43-0500 Body temperature 97.8 [degF] Dr. Zenaida Barrett Work Phone: [facility] [place] 05-22-2022 11:43-0500 Heart rate 85 /min Dr. Zenaida Barrett Work Phone: [facility] [place] 05-22-2022 11:43-0500 Respiratory rate 17 /min Dr. Zenaida Barrett Work Phone: [facility] [place] 05-22-2022 11:43-0500 SaO2% (BldA) [Mass fraction] 92 % Dr. Zenaida Barrett Work Phone: [facility] [place] 05-14-2022 08:28-0500 Body temperature 98.1 [degF] Dr. Zenaida Barrett Work Phone: [facility] [place] 05-14-2022 08:28-0500 Heart rate 68 /min Dr. Zenaida Barrett Work Phone: [facility] [place] 05-14-2022 08:28-0500 Respiratory rate 16 /min Dr. Zenaida Barrett Work Phone: [facility] [place] 05-14-2022 08:28-0500 SaO2% (BldA) [Mass fraction] 90 % Dr. Zenaida Barrett Work Phone: [facility] [place] 05-13-2022 10:10-0500 Body temperature 97 [degF] Dr. Zenaida Barrett Work Phone: [facility] [place] 05-13-2022 10:10-0500 Diastolic blood pressure 68 mm[Hg] Dr. Zenaida Barrett Work Phone: [facility] [place] 05-13-2022 10:10-0500 Heart rate 73 /min Dr. Zenaida Barrett Work Phone: [facility] [place] 05-13-2022 10:10-0500 Respiratory rate 16 /min Dr. Zenaida Barrett Work Phone: [facility] [place] 05-13-2022 10:10-0500 Systolic blood pressure 111 mm[Hg] Dr. Zenaida Barrett Work Phone: [facility] [place] 05-07-2022 08:45-0500 Body height 165.1 cm Amanda Osborne Work Phone: [facility] [employer] Work Phone: 05-07-2022 08:45-0500 Body mass index (BMI) [Ratio] 27.99 kg/m2 Amanda Osborne Work Phone: [facility] [employer] Work Phone: 05-07-2022 08:45-0500 Body surface area Derived from formula 1.84 m2 Amanda Osborne Work Phone: [place] [address] [employer] Work Phone: 05-07-2022 08:45-0500 Body weight 76.3 kg Amanda Osborne Work Phone: [place] [address] [employer] Work Phone: 05-07-2022 08:45-0500 Diastolic blood pressure 66 mm[Hg] Amanda Osborne Work Phone: [place] [address] [employer] Work Phone: 05-07-2022 08:45-0500 Systolic blood pressure 108 mm[Hg] Amanda Osborne Work Phone: [place] [address] [employer] Work Phone: 04-28-2022 08:25-0500 Body temperature 97.4 [degF] Dr. Zenaida Barrett Work Phone: [facility] [place] 04-28-2022 08:25-0500 Diastolic blood pressure 85 mm[Hg] Dr. Zenaida Barrett Work Phone: [facility] [place] 04-28-2022 08:25-0500 Heart rate 71 /min Dr. Zenaida Barrett Work Phone: [facility] [place] 04-28-2022 08:25-0500 Respiratory rate 16 /min Dr. Zenaida Barrett Work Phone: [facility] [place] 04-28-2022 08:25-0500 Systolic blood pressure 131 mm[Hg] Dr. Zenaida Barrett Work Phone: [facility] [place] 04-25-2022 09:04-0500 Body height 167.[address] Zenaida Barrett Work Phone: [facility] [place] 04-25-2022 09:04-0500 Body temperature 97.3 [degF] Dr. Zenaida Barrett Work Phone: [facility] [place] 04-25-2022 09:04-0500 Heart rate 66 /min Dr. Zenaida Barrett Work Phone: [facility] [place] 04-25-2022 09:04-0500 Respiratory rate 17 /min Dr. Zenaida Barrett Work Phone: [facility] [place] 04-25-2022 09:04-0500 SaO2% (BldA) [Mass fraction] 96 % Dr. Zenaida Barrett Work Phone: [facility] [place] 04-18-2022 14:00-0500 Body temperature 97.6 [degF] Dr. Zenaida Barrett Work Phone: [facility] [place] 04-18-2022 14:00-0500 Heart rate 65 /min Dr. Zenaida Barrett Work Phone: [facility] [place] 04-18-2022 14:00-0500 Respiratory rate 18 /min Dr. Zenaida Barrett Work Phone: [facility] [place] 04-18-2022 14:00-0500 SaO2% (BldA) [Mass fraction] 96 % Dr. Zenaida Barrett Work Phone: [facility] [place] 04-15-2022 16:20-0500 Body temperature 98.5 [degF] Dr. Zenaida Barrett Work Phone: [facility] [place] 04-15-2022 16:20-0500 Heart rate 77 /min Dr. Zenaida Barrett Work Phone: [facility] [place] 04-15-2022 16:20-0500 Respiratory rate 18 /min Dr. Zenaida Barrett Work Phone: [facility] [facility] [place] 04-15-2022 16:20-0500 SaO2% (BldA) [Mass fraction] 93 % Dr. Zenaida Barrett Work Phone: [facility] [place] 04-14-2022 14:06-0500 Body temperature 98.5 [degF] Dr. Zenaida Barrett Work Phone: [facility] [place] 04-14-2022 14:06-0500 Diastolic blood pressure 46 mm[Hg] Dr. Zenaida Barrett Work Phone: [facility] [place] 04-14-2022 14:06-0500 Heart rate 75 /min Dr. Zenaida Barrett Work Phone: [facility] [place] 04-14-2022 14:06-0500 Respiratory rate 18 /min Dr. Zenaida Barrett Work Phone: [facility] [place] 04-14-2022 14:06-0500 SaO2% (BldA) [Mass fraction] 95 % Dr. Zenaida Barrett Work Phone: [facility] [place] 04-14-2022 14:06-0500 Systolic blood pressure 108 mm[Hg] Dr. Zenaida Barrett Work Phone: [facility] [place] 04-13-2022 20:37-0500 Inhaled oxygen flow rate 2 L/min Dr. Zenaida Barrett Work Phone: [facility] [place] 04-11-2022 06:47-0500 Body height 167.[address] Zenaida Barrett Work Phone: [facility] [place] 04-11-2022 06:47-0500 Body mass index (BMI) [Ratio] 27.3 kg/m2 Dr. Zenaida Barrett Work Phone: [facility] [place] 04-11-2022 06:47-0500 Body weight [address] Zenaida Barrett Work Phone: [facility] [place] 04-01-2022 11:16-0500 Body mass index (BMI) [Ratio] 28.1 kg/m2 Dr. Zenaida Barrett Work Phone: [facility] [place] 04-01-2022 11:16-0500 Body temperature 98.3 [degF] Dr. Zenaida Barrett Work Phone: [facility] [place] 04-01-2022 11:16-0500 Body weight 77.[address] Zenaida Barrett Work Phone: [facility] [place] 04-01-2022 11:16-0500 Diastolic blood pressure 76 mm[Hg] Dr. Zenaida Barrett Work Phone: [facility] [place] 04-01-2022 11:16-0500 Heart rate 79 /min Dr. Zenaida Barrett Work Phone: [facility] [place] 04-01-2022 11:16-0500 Respiratory rate 16 /min Dr. Zenaida Barrett Work Phone: [facility] [place] 04-01-2022 11:16-0500 SaO2% (BldA) [Mass fraction] 95 % Dr. Zenaida Barrett Work Phone: [facility] [place] 04-01-2022 11:16-0500 Systolic blood pressure 124 mm[Hg] Dr. Zenaida Barrett Work Phone: [facility] [place] 03-10-2022 04:13-0500 Diastolic blood pressure 69 mm[Hg] Amanda Osborne Other Phone: [facility] 03-10-2022 04:13-0500 Heart rate 79 /min Amanda Osborne Other Phone: [facility] 03-10-2022 04:13-0500 Respiratory rate 18 /min Amanda Osborne Other Phone: [facility] 03-10-2022 04:13-0500 SaO2% (BldA) [Mass fraction] 94 % Amanda Osborne Other Phone: [facility] 03-10-2022 04:13-0500 Systolic blood pressure 110 mm[Hg] Amanda Osborne Other Phone: [facility] 03-05-2022 11:39-0500 Body height 165.1 cm Amanda Osborne Work Phone: [facility] Work Phone: 03-05-2022 11:39-0500 Body mass index (BMI) [Ratio] 28.64 kg/m2 Amanda Osborne Work Phone: [facility] Work Phone: 03-05-2022 11:39-0500 Body surface area Derived from formula 1.86 m2 Amanda Osborne Work Phone: [facility] Work Phone: 03-05-2022 11:39-0500 Body weight 78.08 kg Amanda Osborne Work Phone: [facility] Work Phone: 03-05-2022 11:39-0500 Diastolic blood pressure 68 mm[Hg] Amanda Osborne Work Phone: [facility] Work Phone: 03-05-2022 11:39-0500 Heart rate 78 /min Amanda Osborne Work Phone: [facility] Work Phone: 03-05-2022 11:39-0500 SaO2% (BldA) [Mass fraction] 93 % Amanda Osborne Work Phone: [facility] Work Phone: 03-05-2022 11:39-0500 Systolic blood pressure 100 mm[Hg] Amanda Osborne Work Phone: [facility] Work Phone: 03-02-2022 05:03-0500 Body temperature 99.5 [degF] Amanda Osborne Other Phone: [facility] 03-02-2022 05:03-0500 Diastolic blood pressure 62 mm[Hg] Amanda Osborne Other Phone: [facility] 03-02-2022 05:03-0500 Heart rate 100 /min Amanda Osborne Other Phone: [facility] 03-02-2022 05:03-0500 Respiratory rate 16 /min Amanda Limegan Other Phone: [facility] 03-02-2022 05:03-0500 SaO2% (BldA) [Mass fraction] 93 % Amanda Limegan Other Phone: [facility] 03-02-2022 05:03-0500 Systolic blood pressure 117 mm[Hg] Amanda Osborne Other Phone: [facility] 01-09-2022 16:02-0400 Body mass index (BMI) [Ratio] 28.3 kg/m2 Dr. Zenaida Barrett Work Phone: [facility] [place] 01-09-2022 16:02-0400 Body temperature 98.4 [degF] Dr. Zenaida Barrett Work Phone: [facility] [place] 01-09-2022 16:02-0400 Body weight 78.[address] Zenaida Barrett Work Phone: [facility] [place] 01-09-2022 16:02-0400 Diastolic blood pressure 79 mm[Hg] Dr. Zenaida Barrett Work Phone: [facility] [place] 01-09-2022 16:02-0400 Heart rate 81 /min Dr. Zenaida Barrett Work Phone: [facility] [place] 01-09-2022 16:02-0400 Respiratory rate 16 /min Dr. Zenaida Barrett Work Phone: [facility] [place] 01-09-2022 16:02-0400 SaO2% (BldA) [Mass fraction] 94 % Dr. Zenaida Barrett Work Phone: [facility] [place] 01-09-2022 16:02-0400 Systolic blood pressure 127 mm[Hg] Dr. Zenaida Barrett Work Phone: [facility] [place] 10-29-2021 15:36-0400 Body height 165.1 cm Amanda Osborne Work Phone: [address] Work Phone: 10-29-2021 15:36-0400 Body mass index (BMI) [Ratio] 27.55 kg/m2 Amanda Osborne Work Phone: [address] Work Phone: 10-29-2021 15:36-0400 Body surface area Derived from formula 1.83 m2 Amanda Osborne Work Phone: [address] Work Phone: 10-29-2021 15:36-0400 Body weight 75.1 kg Amanda Osborne Work Phone: [address] Work Phone: 10-29-2021 15:36-0400 Diastolic blood pressure 76 mm[Hg] Amanda Osborne Work Phone: [address] Work Phone: 10-29-2021 15:36-0400 Systolic blood pressure 124 mm[Hg] Amanda Osborne Work Phone: [address] Work Phone: 07-01-2021 12:55-0400 Body height 165.1 cm Amanda Osborne Work Phone: [facility] Work Phone: 07-01-2021 12:55-0400 Body temperature 98.2 [degF] Amanda Osborne Work Phone: [facility] Work Phone: 07-01-2021 12:55-0400 Diastolic blood pressure 78 mm[Hg] Amanda Osborne Work Phone: [facility] Work Phone: 07-01-2021 12:55-0400 Heart rate 66 /min Amanda Osborne Work Phone: [facility] Work Phone: 07-01-2021 12:55-0400 Systolic blood pressure 127 mm[Hg] Amanda Osborne Work Phone: [facility] [address] Work Phone: 04-17-2021 13:16-0500 Body height 165.1 cm Amanda Núñezorf Work Phone: [place] [address] [employer] Work Phone: 04-17-2021 13:16-0500 Body mass index (BMI) [Ratio] 25.31 kg/m2 Amanda Osborne Work Phone: [place] [address] [address] Work Phone: 04-17-2021 13:16-0500 Body surface area Derived from formula 1.76 m2 Amanda Osborne Work Phone: [place] [address] [address] Work Phone: 04-17-2021 13:16-0500 Body temperature 97.7 [degF] Amanda Osborne Work Phone: [place] [address] [address] Work Phone: 04-17-2021 13:16-0500 Body weight 69 kg Amanda Osborne Work Phone: [place] [address] [address] Work Phone: 04-17-2021 13:16-0500 Diastolic blood pressure 64 mm[Hg] Amanda Núñezorf Work Phone: [place] [address] [address] Work Phone: 04-17-2021 13:16-0500 Systolic blood pressure 110 mm[Hg] Amanda Lisdorf Work Phone: [address] Work Phone: 04-02-2021 08:44-0500 Body height 165.1 cm Amanda Osborne Work Phone: [address] Work Phone: 04-02-2021 08:44-0500 Body mass index (BMI) [Ratio] 25.17 kg/m2 Amanda Osborne Work Phone: [address] Work Phone: 04-02-2021 08:44-0500 Body surface area Derived from formula 1.76 m2 Amanda Osborne Work Phone: [address] Work Phone: 04-02-2021 08:44-0500 Body temperature 98.2 [degF] Amanda Osborne Work Phone: [address] Work Phone: 04-02-2021 08:44-0500 Body weight 68.59 kg Amanda Osborne Work Phone: [address] Work Phone: 04-02-2021 08:44-0500 Diastolic blood pressure 64 mm[Hg] Amanda Osborne Work Phone: [address] Work Phone: 04-02-2021 08:44-0500 Systolic blood pressure 112 mm[Hg] Amanda Osborne Work Phone: [address] Work Phone: 03-16-2021 14:44-0500 Body height 165.1 cm Monica ROGERS Work Phone: [facility] 03-16-2021 14:44-0500 Body mass index (BMI) [Ratio] 25.14 kg/m2 Monica Bullardner PA Work Phone: [facility] 03-16-2021 14:44-0500 Body temperature 99.3 [degF] Monica Bullardner PA Work Phone: [facility] 03-16-2021 14:44-0500 Body weight 68.54 kg Monica Bullardner PA Work Phone: [facility] 03-16-2021 14:44-0500 Diastolic blood pressure 70 mm[Hg] Monica Bullardner PA Work Phone: [facility] 03-16-2021 14:44-0500 Heart rate 77 /min Monica Kwan PA Work Phone: [facility] 03-16-2021 14:44-0500 Respiratory rate 16 /min Monica Bullardner PA Work Phone: [facility] 03-16-2021 14:44-0500 SaO2% (BldA) [Mass fraction] 96 % Monica Bullardner PA Work Phone: [facility] 03-16-2021 14:44-0500 Systolic blood pressure 116 mm[Hg] Monica Bullardner PA Work Phone: [facility] 01-04-2021 08:38-0400 Body height 165.1 cm Amanda [place] Work Phone: [place] [address] [employer] Work Phone: 01-04-2021 08:38-0400 Body mass index (BMI) [Ratio] 23.96 kg/m2 Amanda Osborne [facility]: [facility] Work Phone: 01-04-2021 08:38-0400 Body surface area Derived from formula 1.72 m2 Amanda A [place] Work Phone: [place] [address] [employer] Work Phone: 01-04-2021 08:38-0400 Body temperature 97.3 [degF] Amanda Osborne Work Phone: [address] Work Phone: 01-04-2021 08:38-0400 Body weight 65.32 kg Amanda Osborne Work Phone: [address] Work Phone: 01-04-2021 08:38-0400 Diastolic blood pressure 74 mm[Hg] Amanda Osborne Work Phone: [address] Work Phone: 01-04-2021 08:38-0400 Systolic blood pressure 120 mm[Hg] Amanda Osborne Work Phone: [address] Work Phone: 10-30-2020 16:38-0400 Body height 165.1 cm Amanda Osborne Work Phone: [facility] [employer] [facility] Work Phone: 10-30-2020 16:38-0400 Body mass index (BMI) [Ratio] 24.37 kg/m2 Amanda Osborne Work Phone: [facility] [employer] [facility] Work Phone: 10-30-2020 16:38-0400 Body surface area Derived from formula 1.73 m2 Amanda Osborne Work Phone: [facility] Work Phone: 10-30-2020 16:38-0400 Body temperature 98.2 [degF] Amanda Osborne Work Phone: [facility] Work Phone: 10-30-2020 16:38-0400 Body weight 66.43 kg Amanda NúñezFishbowl Work Phone: [facility] Work Phone: 10-30-2020 16:38-0400 Diastolic blood pressure 70 mm[Hg] Amanda Blair [place] Work Phone: [facility] Work Phone: 10-30-2020 16:38-0400 Heart rate 66 /min Amanda Blair [place] Work Phone: [facility] Work Phone: 10-30-2020 16:38-0400 SaO2% (BldA) [Mass fraction] 96 % Amanda Rossy Osborne Work Phone: [facility] Work Phone: 10-30-2020 16:38-0400 Systolic blood pressure 116 mm[Hg] Amanda Osborne Work Phone: [facility] Work Phone: Encounters Encounter Date Encounter Type Care Provider Facility Start: 11-23-2024 ambulatory Marlon Allen Facility:[facility] Start: 11-21-2024 End: 11-21-[address] Marlon Allen MD -[facility] Work Phone: Start: 11-21-2024 End: 11-21-[address] Amanda Osborne MD Work Phone: -[facility] Start: 11-21-[address] Marlon Allen MD -Cat Scan [facility] Work Phone: Start: 11-21-2024 ambulatory Marlon Allen Facility:[facility] Start: 11-07-2024 End: 11-07-2024 Office outpatient visit 15 minutes Amanda Osborne MD Work Phone: [facility] Comment on above: Obesity (BMI 30-39.9 ) (Primary Dx) Start: 11-07-2024 End: 11-07-[address] [facility] Start: 11-03-2024 End: 11-03-[address] Mario Turcios MD -[facility] Work Phone: Start: 11-03-2024 End: 11-03-[address] Amanda Osborne MD Work Phone: -[facility] Start: 10-13-2024 End: 10-13-[address] Marlon Allen MD -[facility] Work Phone: Start: 10-13-2024 End: 10-13-[address] Amanda Osborne MD Work Phone: -[facility] Start: 09-01-2024 End: 09-01-[address] Marlon Allen MD -[facility] Work Phone: Start: 09-01-2024 End: 09-01-[address] Amanda Osborne MD Work Phone: [facility] Work Phone: Start: 08-25-2024 End: 08-25-[address] Marlon Allen MD -[facility] Work Phone: Start: 08-25-2024 End: 08-25-[address] Amanda Osborne MD Work Phone: [facility] Work Phone: Start: 08-19-2024 End: 08-19-[address] Marlon Allen MD -[facility] Work Phone: Start: 08-19-2024 End: 08-19-[address] Amanda Osborne MD Work Phone: [facility] Work Phone: Start: 08-17-2024 Non-patient / Non-visit Dr. Marlon jansen MD -[facility] Start: 08-17-2024 End: 08-17-2024 Admission to same day surgery center Dr. Marlon Allen MD -[facility] Start: 08-17-2024 End: 08-17-[address] Amanda Osborne MD Work Phone: [facility] [place] Work Phone: Start: 07-28-2024 End: 07-28-[address] Marlon Allen MD -[facility] Work Phone: Start: 07-28-2024 End: 07-28-[address] Amanda Osborne MD Work Phone: [facility] Work Phone: Start: [facility] Start: 07-07-2024 End: 07-07-[address] Marlon Allen MD -[facility] Work Phone: Start: 07-07-2024 End: 07-07-2024 ambulatory Marlon Allen Facility:[facility] Start: 06-20-2024 Non-patient / Non-visit Dr. Marlon jansen MD -[facility] Start: 06-20-2024 End: 07-13-[address] [facility] Work Phone: Start: 06-20-2024 End: 07-13-2024 ambulatory Marlon [facility] Facility:[facility] [place] Start: 06-06-2024 End: 06-13-[address] Amanda Osborne MD Work Phone: [facility] [place] Work Phone: Start: 06-06-2024 End: 06-13-[address] [facility] Work Phone: Start: 06-06-2024 ambulatory Marlon Allen [facility] Start: 06-06-2024 Non-patient / Non-visit Dr. Marlon jansen MD -[facility] Start: 05-23-2024 ambulatory Marlon Allen [facility] Start: 05-23-2024 Non-patient / Non-visit [facility]. Marlon jansen MD [facility] Start: 05-16-2024 ambulatory Marlon Allen [facility] Start: 05-16-2024 Non-patient / Non-visit [facility]. Marlon jansen MD [facility] Start: 05-10-2024 End: 05-10-2024 Patient encounter procedure Rachel Beard SOCIAL SERVICES COUNSELOR-C -[facility] Work Phone: Start: 05-10-2024 End: 05-10-2024 ambulatory Rachel Beard SOCIAL SERVICES COUNSELOR Facility:[facility] Start: 05-06-2024 End: 05-06-[address] Marlon Allen MD -[facility] Work Phone: Start: 05-06-2024 End: 05-06-2024 ambulatory Amanda Osborne Facility:[facility] Start: 05-04-2024 Encounter for other preprocedural examination [facility] Start: 05-03-2024 End: 05-03-[address] Marlon Allen MD -[facility] Work Phone: Start: 05-03-2024 End: 05-03-2024 [facility] [place] Start: 04-26-2024 End: 04-26-2024 Patient encounter procedure Rachel Beard SOCIAL SERVICES COUNSELOR-C -[facility] Work Phone: Start: 04-26-2024 End: 04-26-2024 ambulatory Rachelcesar Beard SOCIAL SERVICES COUNSELOR Facility:[facility] Start: 04-19-2024 End: 04-19-2024 Patient encounter procedure Rachel Beard SOCIAL SERVICES COUNSELOR-C -[facility] Work Phone: Start: 04-19-2024 End: 04-19-2024 ambulatory Rachelcesar Beard SOCIAL SERVICES COUNSELOR Facility:[facility] Start: 04-11-2024 End: 04-11-2024 Patient encounter procedure Rachel Beard SOCIAL SERVICES COUNSELOR-C -[facility] Work Phone: Start: 04-11-2024 End: 04-11-2024 ambulatory Rachel Beard SRIDEVI Facility:[facility] Start: 04-07-2024 End: 04-07-[address] Marlon Allen MD -[facility] Work Phone: Start: 04-07-2024 End: 04-07-2024 ambulatory Marlon Allen Facility:[facility] Start: 04-03-2024 Non-patient / Non-visit Dr. Marlon jansen MD -[facility] Start: 04-02-2024 Non-patient / Non-visit Dr. Marlon jansen MD -[facility] Start: 04-01-2024 Non-patient / Non-visit Dr. Marlon jansen MD -[facility] Start: 03-31-2024 End: 04-03-2024 Evaluation and management of inpatient Dr. Marlon Allen MD -Intensive Care Unit Work Phone: Start: 03-31-2024 Non-patient / Non-visit Dr. Marlon jansen MD -[facility] Start: 03-31-2024 End: 03-31-2024 Non-patient / Non-visit Dr. Sarah Leyva MD -[facility] Work Phone: Start: 03-31-2024 End: 03-31-2024 ambulatory Marlon Allen Facility:[facility] Start: 03-30-2024 End: 03-30-[address] Marlon Allen MD -[facility] Work Phone: Start: 03-30-2024 End: 03-30-2024 ambulatory Marlon Allen Facility:[facility] Start: 03-21-2024 End: 03-21-2024 Encounter for preprocedural laboratory examination AMANDA OSBORNE [facility] Start: 03-21-2024 End: 03-21-2024 Office outpatient visit 25 minutes Amanda Osborne MD Work Phone: [facility] Comment on above: Preop examination (P rimary Dx); Gastroesophageal reflux disease, unspecified whether esophagitis present; Migraine without status migrainosus, not intractable, unspecified migraine type; Herpes; History of prophylactic mastectomy of both breasts Start: 03-21-2024 End: 03-21-2024 Preprocedural examination done Amanda Osborne MD Work Phone: [facility] Work Phone: Start: 03-21-2024 End: 03-21-2024 ambulatory AMANDA LIMACUATE [facility] Start: 03-03-2024 Encounter for preprocedural laboratory examination Marlon Allen [facility] Start: 03-03-2024 End: 03-03-[address] Marlon Allen MD -[facility] Work Phone: Start: 03-03-2024 End: 03-03-2024 ambulatory [facility] Facility:[facility] Start: 03-01-2024 End: 03-01-2024 Patient encounter status Zenaida Silva MD Work Phone: [facility] Work Phone: Start: 03-01-2024 End: 03-01-2024 Periodic preventive med est patient 40-64yrs Zenaida Silva MD Work Phone: [facility] Comment on above: Vaginal Pap smear; Encounter for gynecological examination without abnormal finding Start: 03-01-2024 End: 03-01-2024 ambulatory [facility] Start: 03-01-2024 End: 03-01-2024 Encounter for gynecological examination (general) (routine) without abnormal findings [facility] Start: 01-11-2024 ambulatory [facility] Start: 01-05-2024 End: 01-05-[address] [facility] Start: 01-05-2024 End: 01-05-2024 Office outpatient visit 25 minutes Amanda Osborne MD Work Phone: [facility] Comment on above: History of prophylac tic mastectomy of both breasts (Primary Dx); Preop examination; Migraine without status migrainosus, not intractable, unspecified migraine type; Gastroesophageal reflux disease without esophagitis; Herpes Start: 01-05-2024 End: 01-05-2024 Preprocedural examination done Amanda Osborne MD Work Phone: [facility] Work Phone: Start: 01-04-2024 End: 01-04-2024 ambulatory Rachel Beard NP Facility:[facility] [place] Start: 12-17-2023 End: 12-17-2023 ambulatory Marlon Allisonjolly Facility:[facility] Start: 12-03-2023 End: 12-03-2023 ambulatory Amanda Osborne Facility:[facility] Start: 08-04-2023 End: 08-04-2023 ambulatory AMANDA OSBORNE [facility] Start: 08-04-2023 End: 08-04-2023 Patient encounter procedure Ab Puri [employer] SALESPERSON[employer]ER Work Phone: [facility] Comment on above: Cutaneous abscess of left axilla (Primary Dx) Start: 04-17-2023 End: 04-17-2023 Office outpatient visit 25 minutes Amanda Osborne MD Work Phone: [facility] Comment on above: Left leg swelling (P rimary Dx); Esophagitis, unspecified without bleeding; Herpes; Migraine without status migrainosus, not intractable, unspecified migraine type Start: 02-24-2023 End: 02-24-2023 Office outpatient visit 15 minutes Zenaida Silva MD Work Phone: [facility] Comment on above: Vaginal Pap smear; Vaginal Pap smear with LGSIL Start: 01-23-2023 Non-patient / Non-visit Dr. Jolly Osborne Work Phone: [facility] Start: 01-22-2023 Non-patient / Non-visit Dr. Jolly Osborne Work Phone: [facility] Start: 01-21-2023 End: 01-23-2023 Evaluation and management of inpatient Dr. Amanda Osborne Work Phone: [facility] [place] Work Phone: Start: 01-21-2023 End: 01-23-[address] Amanda Osborne Work Phone: [facility] [place] Work Phone: Start: 01-13-2023 End: 01-13-[address] Amanda Osborne Work Phone: [facility] Work Phone: Start: 12-23-2022 End: 12-23-[address] Amanda Osborne Work Phone: [facility] Work Phone: Start: 12-10-2022 End: 12-10-[address] Amanda Osborne Work Phone: [facility] Work Phone: Start: 11-24-2022 End: 11-24-[address] Amanda Osborne Work Phone: [facility] Work Phone: Start: 11-13-2022 End: 11-13-[address] Amanda Osborne Work Phone: [facility] Work Phone: Start: 11-04-2022 ambulatory MD ZENAIDA SALINAS [facility] Facility:[id number] Start: 10-30-2022 End: 10-30-[address] Amanda Osborne Work Phone: [facility] Work Phone: Start: 10-23-2022 End: 10-23-[address] Amanda Osborne Work Phone: [facility] Work Phone: Start: 10-23-2022 End: 10-23-[address] Amanda Osborne Work Phone: [facility] Work Phone: Start: 10-16-2022 End: 10-16-[address] Amanda Osborne Work Phone: [facility] Work Phone: Start: 10-09-2022 End: 10-09-[address] Amanda Osborne Work Phone: [facility] Work Phone: Start: 10-05-2022 Non-patient / Non-visit Dr. Jolly Osborne Work Phone: [facility] Start: 10-04-2022 Non-patient / Non-visit Dr. Jolly Osborne Work Phone: [facility] Start: 10-03-2022 End: 10-05-2022 Evaluation and management of inpatient Dr. Amanda Osborne Work Phone: [facility] 3 Work Phone: Start: 10-03-2022 End: 10-05-[address] Amanda Osborne Work Phone: [facility] Work Phone: Start: 09-23-2022 End: 09-23-[address] Amanda Osborne Work Phone: [facility]-Laboratory Work Phone: Start: 09-23-2022 End: 09-23-[address] Amanda Osborne Work Phone: [facility] Work Phone: Start: 07-29-2022 End: 07-29-[address] Amanda Osborne Work Phone: [facility] Work Phone: Start: 07-24-2022 End: 07-24-[address] Amanda Osborne Work Phone: [facility] Work Phone: Start: 07-01-2022 End: 07-01-[address] Amanda Osborne Work Phone: [facility] Work Phone: Start: 06-16-2022 End: 06-16-[address] Amanda Osborne Work Phone: [facility] Work Phone: Start: 06-10-2022 End: 06-10-[address] Zenaida Barrett Work Phone: [facility] Start: 06-02-2022 Non-patient / Non-visit Dr. Stewart Barrett Work Phone: [facility] Start: 06-01-2022 Non-patient / Non-visit Dr. Stewart Barrett Work Phone: [facility] Start: 05-31-2022 Non-patient / Non-visit Dr. Stewart Barrett Work Phone: [facility] Start: 05-30-2022 End: 06-02-2022 Evaluation and management of inpatient Dr. Zenaida Barrett Work Phone: [facility] 3 Start: 05-30-2022 End: 06-02-[address] Zenaida Barrett Work Phone: [facility] Work Phone: Start: 05-30-2022 Non-patient / Non-visit Dr. Stewart Barrett Work Phone: [facility] Start: 05-27-2022 End: 06-13-[address] Zenaida Barrett Work Phone: [facility] Work Phone: Start: 05-27-2022 End: 06-13-[address] [facility]ena[facility] Start: 05-27-[address] Zenaida Barrett Work Phone: [facility] Start: 05-26-2022 End: 05-26-[address] Zenaida Barrett Work Phone: [facility] Start: 05-26-2022 Non-patient / Non-visit Dr. Stewart Barrett Work Phone: [facility] Start: 05-22-2022 End: 05-22-[address] Zenaida Barrett Work Phone: [facility] Start: 05-22-2022 Non-patient / Non-visit Dr. Stewart Barrett Work Phone: [facility] Start: 05-21-2022 Non-patient / Non-visit Dr. Stewart Barrett Work Phone: [facility] Start: 05-19-2022 Non-patient / Non-visit Dr. Stewart Barrett Work Phone: [facility] Start: 05-16-2022 Chart Update Amanda cardona Work Phone: [address] Work Phone: Start: 05-14-2022 End: 05-14-[address] Zenaida Barrett Work Phone: [facility] Start: 05-13-2022 End: 05-13-[address] Zenaida Barrett Work Phone: [facility] Work Phone: Start: 05-13-2022 End: 05-13-[address] Zenaida Barrett [facility] Start: 05-12-2022 Non-patient / Non-visit Dr. Stewart Barrett Work Phone: [facility] Start: 05-07-2022 Encounter for gynecological examination (general) (routine) without abnormal findings MD ZENAIDA SILVA [facility] Start: 05-07-2022 Encounter for gynecological examination (general) (routine) without abnormal findings MD ZENAIDA SILVA Facility:[facility] Start: 05-07-2022 Periodic preventive med est patient 40-64yrs Amanda Rossy Osborne Work Phone: [address] Work Phone: Start: 05-07-2022 ambulatory MD ZENAIDA SILVA Facility:[facility] Start: 05-05-2022 Non-patient / Non-visit Dr. Stewart Barrett Work Phone: [facility] Start: 04-29-2022 End: 04-29-2022 Non-patient / Non-visit Dr. Zenaida Barrett Work Phone: [facility] Start: 04-29-[address] Zenaida Barrett Work Phone: [facility] Services/Neurology Start: 04-28-2022 Non-patient / Non-visit Dr. Stewart Barrett Work Phone: [facility] Start: 04-25-2022 End: 04-25-[address] Zenaida Barrett Work Phone: [facility] Start: 04-23-2022 End: 04-23-[address] Zenaida Barrett Work Phone: [facility] Work Phone: Start: 04-23-2022 End: 04-23-[address] Zenaida Barrett Work Phone: [facility] Start: 04-18-2022 End: 04-18-[address] Zenaida Barrett Work Phone: [facility] Start: 04-15-2022 End: 04-15-[address] Zenaida Barrett Work Phone: [facility] Start: 04-14-2022 Non-patient / Non-visit Dr. Stewart Barrett Work Phone: [facility] Start: 04-13-2022 Non-patient / Non-visit Dr. Stewart Barrett Work Phone: [facility] Start: 04-12-2022 Non-patient / Non-visit Dr. Stewart Barrett Work Phone: [facility] Start: 04-11-2022 End: 04-14-2022 Evaluation and management of inpatient Dr. Zenaida Barrett Work Phone: [facility] 3 Start: 04-11-2022 End: 04-14-[address] Zenaida Barrett Work Phone: [facility] Work Phone: Start: 04-10-2022 Non-patient / Non-visit Dr. Stewart Barrett Work Phone: [facility] Start: 04-01-2022 End: 04-01-[address] Zenaida Barrett Work Phone: [facility] Start: 03-11-2022 ambulatory OSMIN PORTILLO [facility] Start: 03-10-2022 End: 03-10-2022 Emergency department patient visit Sean Malagon [facility] Emergency 15 Start: 03-06-2022 AUDIT Amanda valladaresbrijesh Work Phone: [facility] Work Phone: Start: 03-05-2022 Office outpatient vi sit 15 minutes Amanda Osborne Work Phone: [facility] Work Phone: Start: 03-05-2022 ambulatory MD AMANDA OSBORNE Facility:[id number] Start: 03-02-2022 End: 03-02-2022 Emergency department patient visit Fanny Mckeon [facility] Emergency 14 Start: 01-09-2022 End: 01-09-[address] Zenaida Barrett Work Phone: [facility] Start: 11-14-2021 [id number] Start: 11-14-2021 FUV, Provider: Irene Finley, Status: Pen, Time: 1:00 PM Amanda Osborne Work Phone: [facility] Work Phone: Start: 11-12-2021 Chart Update Amanda Schneider dulce Work Phone: [facility] Work Phone: Start: 11-11-2021 Chart Update Amanda Schneider yeseniabrijesh Work Phone: [facility] Work Phone: Start: 07-01-2021 Office consultation new/estab patient 60 min Amanda Osborne Work Phone: [facility] Work Phone: Start: 07-01-2021 Patient encounter procedure Amanda Osborne Work Phone: [facility] Work Phone: Start: 06-12-2021 Chart Update Amanda cardona Work Phone: [place] [address] [address] Work Phone: Start: 06-12-2021 ambulatory Amandaviola Aguirre [place] Facility:[id number] Start: 04-17-2021 Patient encounter procedure Amanda Blair Wiltoncuate Work Phone: [address] Work Phone: Start: 04-05-2021 Chart Update Amanda cardona Work Phone: [address] Work Phone: Start: 03-16-2021 ambulatory AMANDA OSBORNE [facility] Start: 03-16-2021 End: 03-16-2021 Office outpatient new 30 minutes Monica ROGERS Work Phone: [facility] Comment on above: Congestion of nasal sinus (Primary Dx); Acute maxillary sinusitis, recurrence not specified; Cough Start: 01-08-2021 Chart Update Amanda Blair Jennie dulce Work Phone: [address] Work Phone: Start: 01-04-2021 Patient encounter procedure Amanda Blair Wiltoncuate Work Phone: [address] Work Phone: Start: 11-15-2020 AUDIT Amanda Blair Jennie yeseniadobrijesh Work Phone: [facility] Work Phone: Start: 11-15-2020 Chart Update Amanda A Jennie dulce Work Phone: [facility] Work Phone: Start: 11-14-2020 Office outpatient vi sit 15 minutes Amanda Osborne Work Phone: [employer] [facility] Work Phone: Start: 11-14-2020 Patient encounter procedure Amanda Osborne Work Phone: [employer] [facility] Work Phone: Start: 10-30-2020 Office outpatient vi sit 15 minutes Amanda Osborne Work Phone: [facility] Work Phone: Start: 10-24-2020 AUDIT Amanda cardona Work Phone: [employer] [facility] Work Phone: Start: 05-15-2017 [facility] Ambulatory Cancer cervix - screening done Amanda Osborne Work Phone: [employer] [facility] Work Phone: Comment on above: 02/06/2020:Negative1 ; WNL; Encounter for gynecological examination (general) (routine) without abnormal findings Amanda Osborne Work Phone: [address] Work Phone: Comment on above: 02/06/2020:Negative1 ; WNL; 04/02/2021: LGSIL:Dggtdklw66/31/2018; WNL; 10/29/2021: LGSIL01: LGSIL02/06/2020:Ydfbpqwi86/31/2018; WNL; 05/07/2022; COTEST NE G010/29/2021: LGSIL01: LGSIL02/06/2020:Mtrfhjlz22/31/2018; WNL; Patient encounter status Jorge Alberto Osborne Work Phone: [employer] [facility] Work Phone: Procedures Date Procedure Procedure Detail Performing Clinician Start: 11-21-2024 CT of abdomen with contrast Dr. Amanda Osborne MD Work Phone: Start: 08-17-2024 Reduction mammoplasty Zoey Osborne MD Work Phone: Start: 04-01-2024 Plain X-ray abdomen Dr. Amanda Osborne MD Work Phone: Start: 04-01-2024 Plain chest X-ray Dr. Sasha Osborne MD Work Phone: Start: 04-01-[address] Amanda Osborne MD Work Phone: Start: 04-01-2024 Measurement of renal function Dr. Amanda Osborne MD Work Phone: Comment on above: GFR Calc Start: 03-31-2024 Breast reconstructio n with deep inferior epigastric cable installation technician skin flap Dr. Amanda Osborne MD Work Phone: Start: 01-21-2023 Investigation of transfusion reaction Dr. Amanda Osborne Work Phone: Start: 01-21-2023 Per[address] capsulectomy of breast Dr. Amanda Osborne Work Phone: Start: 10-03-2022 Reconstruction of br east with roller stainer or prosthesis Dr. Amanda Osborne Work Phone: [...] 03-16-2021 SARS-COV-2 RAPID Monica ROGERS Work Phone: Anaerobic microbial culture Dr. Zenaida Barrett Work Phone: Anaerobic microbial culture Dr. Zenaida Barrett Work Phone: Bilateral mastectomy Jorge Alberto villegas Rossy Osborne Work Phone: Comment on above: 04/11/2022: [...] Osborne Work Phone: Total abdominal hysterectomy Amanda Rossy Osborne Work Phone: Comment on above: 12/30/2018; Plan of Treatment Date Care Activity Detail Author Start: 03-24-2025 End: 03-24-2025 Patient encounter procedure [facility] Start: 03-21-2025 Diabetes mellitus screening Diabetes Screening [facility] Start: 03-02-2025 Yearly Adult Physical Yearly Adult Physical [facility] Start: 11-14-2024 Influenza vaccination Influenza Vaccine (#1) [facility] Start: 08-17-2024 Anesthesia reconstruction breast ANESTH SURGERY OF BREAST [facility] Start: 08-17-2024 Exc b9 lesion mrgn xcp sk tg t/a/l >4.0 cm EXC TR-EXT B9+ADA >4.0 CM [facility] Start: 08-17-2024 Grafting of autologous fat by lipo 50 cc or less GRFG AUTOL FAT LIPO 50 CC/< [facility] Start: 08-17-2024 Grafting of autologous fat by lipo ea addl 50 cc [facility] AUTOL FAT LIPO EA ADDL [facility] Start: 08-17-2024 Repair intermediate s/a/t/e 12.6-20.0cm INTMD RPR S/A/T/EXT 12.6-20 [facility] Start: 08-17-2024 Revision reconstructed breast REVJ RECONSTRUCTED BREAST [facility] Start: 08-17-2024 Patient discharge [facility] Start: 04-03-2024 Patient discharge [facility] Start: 04-02-2024 Oxygen therapy [facility] Start: 04-02-2024 End: 04-02-2024 [facility] Start: 04-02-2024 Care planning and problem solving actions [facility] Start: 04-02-2024 Wound care [facility] Start: 04-01-2024 [facility] Start: 04-01-2024 Removal of urinary catheter [facility] Start: 04-01-2024 Wound care [facility] Start: 04-01-2024 Referral to service [facility] Start: 04-01-2024 Referral to occupational therapist [facility] Start: 04-01-2024 End: 04-01-2024 [facility] Start: 03-31-2024 Continuous pulse oximetry [facility] Start: 03-31-2024 Insertion of catheter into peripheral vein [facility] Start: 03-31-2024 Measuring intake and output [facility] Start: 03-31-2024 Providing care according to standard [facility] Start: 03-31-2024 Vital signs measurements [facility] Start: 03-31-2024 [facility] Start: 03-31-2024 Application of intermittent pneumatic compression device [facility] Start: 03-31-2024 Following clinical pathway protocol [facility] Start: 03-31-2024 Admission procedure [facility] Start: 03-31-2024 Maintenance of drainage tube [facility] Start: 03-31-2024 Vascular disease risk assessment [facility] Start: 03-01-2024 End: 03-01-2025 Cytology Cervical or vaginal smear or scraping study [facility] Service Area Work Phone: Comment on above: Expected: 03/01/2024 (Approximate), Expi res: 03/01/2025 Start: 02-08-2024 End: 02-08-2024 Patient encounter procedure 02/08/2024 8:30 AM EST Office Visit [facility] [address] [place] [address] Zenaida Silva MD [address] [facility], [address] [place] [address] [facility] Start: 01-23-2024 Diabetes mellitus screening Diabetes Screening [facility] Start: 12-29-2023 Pneumococcal vaccination Pneumococcal Vaccine (1 of 1 - PCV) [facility] Start: 12-29-2023 Zoster Vaccines (1 of 2) Zoster Vaccines (1 of 2) [facility] Start: 11-15-2023 COVID-19 Vaccine ( season) COVID-19 Vaccine ( - season) [facility] Start: 11-15-2023 Influenza vaccination [facility] Start: 09-02-2023 End: 09-02-2023 Patient encounter procedure 09/02/2023 8:30 AM EDT Office Visit [facility] [address] [place] [address] Zenaida Silva MD [facility] [address] [facility], [address] [place] [address] [facility] Start: 04-21-2023 End: 04-21-2023 Patient encounter procedure 04/21/2023 10:[address] [facility] [address] [address] [facility] Start: 04-17-2023 End: 04-17-2025 Vascular US Lower Extremity Venous Duplex Left Vascular US Lower Extremity Venous Duplex Left Vascular Ultrasound Routine Left leg swelling Expected: 04/17/2023 (Approximate), Expires: 04/17/2025 [facility] Service Area Work Phone: Comment on above: Expected: 04/17/2023 (Approximate), Expi res: 04/17/2025 Start: 03-04-2023 EPV, Provider: Amanda Osborne, Status: Pen, Time: 11:00 AM EPV, Provider: Amanda Osborne, Status: Pen, Time: 11:00 AM [facility] Work Phone: Start: 03-04-2023 End: 03-04-2023 Patient encounter procedure [facility] Start: 02-24-2023 End: 02-25-2024 Cytology Cervical or vaginal smear or scraping study THINPREP PAP TEST Pathology and Cytology Routine Vaginal Pap smear Vaginal Pap smear with LGSIL Expected: 02/24/2023 (Approximate), Expires: 02/25/2024 [facility] Service Area Work Phone: Comment on above: Expected: 02/24/2023 (Approximate), Expi res: 02/25/2024 Start: 01-23-2023 Patient discharge [facility] Start: 01-22-2023 Introduction of urinary catheter [facility] Start: 01-22-2023 Removal of urinary catheter [facility] Start: 01-22-2023 [facility] Start: 01-21-2023 [facility] Start: 01-21-2023 Following clinical pathway protocol [facility] Start: 01-21-2023 Application of intermittent pneumatic compression device [facility] Start: 01-21-2023 Elevation of head of bed [facility] Start: 01-21-2023 Introduction of urinary catheter [facility] Start: 01-21-2023 Ambulation therapy management [facility] Start: 01-21-2023 Application of intermittent pneumatic compression device [facility] Start: 01-21-2023 Incentive spirometry [facility] Start: 01-21-2023 Measuring intake and output [facility] Start: 01-21-2023 Notification of physician [facility] Start: 01-21-2023 Oxygen therapy [facility] Start: 01-21-2023 Patient education [facility] Start: 01-21-2023 Taking patient vital signs [facility] Start: 01-21-2023 Wound care [facility] Start: 01-21-2023 [facility] Start: 01-21-2023 Admission procedure [facility] Start: 01-21-2023 Assessment of risk of venous thromboembolism [facility] Start: 01-21-2023 Anaerobic microbial culture Anaerobic Culture [facility] Start: 01-21-2023 Microbial culture, routine Wound Culture [facility] Start: 11-14-2022 COVID-19 Vaccine ( season) COVID-19 Vaccine ( season) [facility] Start: 11-14-2022 Influenza vaccination Influenza Vaccine (#1) [facility] Start: 11-04-2022 PAPREPEAT, Provider: Zenaida Silva, Status: Pen, Time: 8:30 AM PAPREPEAT, Provider: Zenaida Silva, Status: Pen, Time: 8:[address] Work Phone: Start: 10-05-2022 Patient discharge [facility] Start: 10-04-2022 Application of intermittent pneumatic compression device [facility] Start: 10-04-2022 Introduction of urinary catheter [facility] Start: 10-03-2022 Admission procedure [facility] Start: 10-03-2022 Following clinical pathway protocol [facility] Start: 10-03-2022 Anesthesia reconstruction breast ANESTH SURGERY OF BREAST [facility] Start: 10-03-2022 Brst nstj immt/dlyd w/tiss roller stainer sbsq xpnsj TISS XPNDR PLMT BRST NSTJ [facility] Start: 10-03-2022 Implnt bio implnt for soft tissue reinforcement ACELLULAR DERM MATRIX IMPLT [facility] Start: 10-03-2022 End: 10-03-2022 [facility] Start: 10-03-2022 Introduction of urinary catheter [facility] Start: 10-03-2022 Elevation of head of bed [facility] Start: 10-03-2022 Wound care [facility] Start: 10-03-2022 Ambulation therapy management [facility] Start: 10-03-2022 Application of intermittent pneumatic compression device [facility] Start: 10-03-2022 Continuous pulse oximetry [facility] Start: 10-03-2022 Measuring intake and output [facility] Start: 10-03-2022 Notification of physician [facility] Start: 10-03-2022 Oxygen therapy [facility] Start: 10-03-2022 Patient education [facility] Start: 10-03-2022 Taking patient vital signs [facility] Start: 10-03-2022 Assessment of risk of venous thromboembolism [facility] Start: 06-12-2022 Screening for malignant neoplasm of breast Mammogram [facility] Start: 06-02-2022 Patient discharge [facility] Start: 05-31-2022 Introduction of urinary catheter [facility] Start: 05-30-2022 Application of intermittent pneumatic compression device [facility] Start: 05-30-2022 End: 05-30-2022 Following clinical pathway protocol [facility] Start: 05-30-2022 Introduction of urinary catheter [facility] Start: 05-30-2022 End: 05-30-2022 [facility] Start: 05-30-2022 Elevation of head of bed [facility] Start: 05-30-2022 Ambulation therapy management [facility] Start: 05-30-2022 Application of intermittent pneumatic compression device [facility] Start: 05-30-2022 Continuous pulse oximetry [facility] Start: 05-30-2022 Measuring intake and output [facility] Start: 05-30-2022 Notification of physician [facility] Start: 05-30-2022 Oxygen therapy [facility] Start: 05-30-2022 Patient education [facility] Start: 05-30-2022 Taking patient vital signs [facility] Start: 05-30-2022 Wound care [facility] Start: 05-30-2022 Admission procedure [facility] Start: 05-30-2022 Assessment of risk of venous thromboembolism [facility] Start: 05-30-2022 Anesthesia reconstruction breast ANESTH SURGERY OF BREAST [facility] Start: 05-30-2022 Periprosthetic capsulectomy breast TARAH-IMPLT CAPSLC BRST COMPL [facility] Start: 05-30-2022 Revision reconstructed breast REVJ RECONSTRUCTED BREAST [facility] Start: 05-30-2022 Secondary closure surg wound/dehsn extsv/complic LATE CLOSURE OF WOUND [facility] Start: 05-30-2022 [facility] Start: 05-12-2022 [facility] Start: 05-07-2022 PAPREPEAT, Provider: Zenaida Silva, Status: Pen, Time: 8:30 AM PAPREPEAT, Provider: Zenaida Silva, Status: Pen, Time: 8:[address] Work Phone: Start: 05-07-2022 Patient encounter procedure [facility] Start: 04-14-2022 Patient discharge [facility] Start: 04-12-2022 Introduction of urinary catheter [facility] Start: 04-11-2022 Following clinical pathway protocol [facility] Start: 04-11-2022 Application of intermittent pneumatic compression device [facility] Start: 04-11-2022 Introduction of urinary catheter [facility] Start: 04-11-2022 End: 04-11-2022 [facility] Start: 04-11-2022 Elevation of head of bed [facility] Start: 04-11-2022 Wound care [facility] Start: 04-11-2022 Ambulation therapy management [facility] Start: 04-11-2022 Application of intermittent pneumatic compression device [facility] Start: 04-11-2022 Continuous pulse oximetry [facility] Start: 04-11-2022 Incentive spirometry [facility] Start: 04-11-2022 Measuring intake and output [facility] Start: 04-11-2022 Notification of physician [facility] Start: 04-11-2022 Oxygen therapy [facility] Start: 04-11-2022 Patient education [facility] Start: 04-11-2022 Taking patient vital signs [facility] Start: 04-11-2022 Admission procedure [facility] Start: 04-11-2022 Assessment of risk of venous thromboembolism [facility] Start: 04-11-2022 Verification routine [facility] Start: 04-11-2022 Anes integ extremities ant trunk & perineum nos ANESTH SKIN EXT/PER/ATRUNK [facility] Start: 04-11-2022 Immt insj brst prosth flwg mastopexy mast/rcnstj INSJ BREAST IMPLT SM D MAST [facility] Start: 04-11-2022 Implnt bio implnt for soft tissue reinforcement ACELLULAR DERM MATRIX IMPLT [facility] Start: 04-11-2022 Mastectomy simple complete MAST SIMPLE COMPLETE [facility] Start: 04-11-2022 Mastopexy SUSPENSION OF BREAST [facility] Start: 04-07-2022 Patient encounter procedure ANNUAL, Provider: Zenaida Silva, Status: Pen, Time: 8:30 AM [employer] Work Phone: Start: 03-05-2022 Patient encounter procedure [facility] Start: 11-14-2021 FUV, Provider: Irene Finley, Status: Pen, Time: 1:00 PM FUV, Provider: Irene Finley, Status: Pen, Time: 1:00 PM [facility] Work Phone: Start: 10-16-2021 PAPREPEAT, Provider: Zenaida Silva, Status: Pen, Time: 3:30 PM PAPREPEAT, Provider: Zenaida Silva, Status: Pen, Time: 3:30 PM [facility] Work Phone: Start: 07-12-2021 COVID-19 Vaccine (2 - Booster for Lalo series) COVID-19 Vaccine (2 - Booster for Lalo series) [facility] Start: 02-06-2021 Patient encounter procedure ANNUAL, Provider: Zenaida Silva, Status: Pen, Time: 9:00 AM [facility] Work Phone: Start: 01-14-2021 FUV, Provider: Mayra Kennedy, Status: Pen, Time: 8:30 AM FUV, Provider: Mayra Kennedy, Status: Pen, Time: 8:30 AM [place] [address] [employer] Phone: Start: 11-14-2020 Influenza vaccination INFLUENZA VACCINE (#1) [facility] Start: 10-30-2020 EPV, Provider: Amanda Osborne, Status: Pen, Time: 4:40 PM EPV, Provider: Amanda Osborne, Status: Pen, Time: 4:40 PM [facility] Work Phone: Start: 2018 Colonoscopy COLORECTAL CANCER SCREENING DISCUSSION [facility] Start: 2013 Fasting lipid profile LIPID SCREENING [facility] Start: 2013 Screening mammography MAMMOGRAM SCREENING DISCUSSION [facility] Start: 12-29-1995 DTaP/Tdap/Td Vaccines (1 - Tdap) DTaP/Tdap/Td Vaccines (1 - Tdap) [facility] Start: 1994 Screening for malignant neoplasm of cervix CERVICAL CANCER SCREENING DISCUSSION [facility] Start: 1992 Hepatitis A Vaccines (1 of 2 - Risk 2-dose series) Hepatitis A Vaccines (1 of 2 - Risk 2-dose series) [facility] Start: 1992 Hepatitis B Vaccines (1 of 3 - 19+ 3-dose series) Hepatitis B Vaccines (1 of 3 - 19+ 3-dose series) [facility] Start: 1992 Third diphtheria, tetanus and acellular pertussis (DTaP) vaccination TDAP (ADULT) [facility] Start: 12-29-1991 Hepatitis C screening Hepatitis C Screening [facility] Start: 12-29-1991 Tetanus vaccination TETANUS [facility] Start: 1988 HIV screening HIV SCREENING DISCUSSION [facility] Start: 1978 COVID-19 VACCINE (1) COVID-19 VACCINE (1) [facility] Start: 1974 MMR Vaccines (1 of 1 - Standard series) MMR Vaccines (1 of 1 - Standard series) [facility] Start: 1973 Hepatitis B Vaccines (1 of 3 - 3-dose series) Hepatitis B Vaccines (1 of 3 - 3-dose series) [facility] Start: 1973 Hepatitis C antibody, confirmatory test HEPATITIS C VIRUS SCREENING [facility] Start: 1973 HIV screening HIV Screening [facility] Start: 1973 Lipid panel Lipid Panel [facility] Start: 1973 Screening for malignant neoplasm of colon [facility] Start: 1973 Yearly Adult Physical Yearly Adult Physical [facility] Anaerobic Culture Anaerobic Culture [facility] Bacteria identified in Unspecified specimen by Anaerobe culture [facility] Basic metabolic 2008 panel with ionized calcium - Serum or Plasma [facility] CBC W Auto Different ial panel - Blood [facility] CT Abdomen W contrast IV [facility] Electrocardiographic procedure [facility] Fungal Culture Fungal Culture [facility] H/O: surgery History of bladd er surgery [facility] Hemoglobin A1c/Hemoglobin.total in Blood [facility] History of tonsillectomy History of tonsillectomy and adenoidectomy [facility] Microbial culture, routine Wound Culture [facility] Patient referral [facility] Work Phone: [facility] Immunizations Immunization Date Immunization Notes Care Provider Fa cility 01-15-2024 influenza virus vaccine, unspecified formulation Amanda Osborne MD Work Phone: [facility] Work Phone: 05-31-2022 influenza, injectabl e, quadrivalent, preservative free Dr. Amanda Osborne Work Phone: [facility] 03-18-2023 influenza, seasonal, injectable Dr. Zenaida Barrett Work Phone: [facility] 05-31-2022 influenza virus vaccine, unspecified formulation Zenaida Silva MD Work Phone: [facility] Work Phone: Payers Date Payer Category Payer Self-pay [id number] 2022 [employer] Blue [employer] Managed Care [facility] [id number] 2021 Unknown 2021 Unknown [place] [employer] ADITIONAL [id number] 2021-Present [address] [place] [address] [id number] [id number]. [id number] 2021 Unknown [id number] 2021 Unknown [id number] 2017 Unknown [id number] 1973 Unknown [id number] 2.16.840.1.300534.3.579.2. 983 1973 Unknown [id number] 2.16.840.1.789406.3.579.2. 983 1973 Unknown [id number] 2.16.840.1.839010.3.579.2. 1069 1973 Unknown [id number] 2.16.840.1.753020.3.579.2. 1069 1973 Unknown [id number] 2.16.840.1.041623.3.579.2. 1069 1973 Unknown [id number] 2.16.840.1.558316.3.579.2. 356 1973 Unknown [id number] 2.16.840.1.289168.3.579.2. 356 1973 Unknown [id number] 2..840.1.965869.3.579.2. 356 1973 Unknown [id number] 2.16.840.1.635368.3.579.2. 356 1973 Unknown [id number] 2..840.1.498653.3.579.2. 356 1973 Unknown [id number] 2.840.1.357534.3.579.2. 1243 1973 Unknown [id number] 2.840.1.447525.3.579.2. 1245 1973 Unknown [id number] 2.16.840.1.691713.3.579.2. 1244 1973 Unknown [id number] 2..840.1.741725.3.579.2. 1244 1973 Unknown [id number] 2..840.1.049523.3.579.2. 1244 1973 Unknown [id number] .16.840.1.084860.3.579.2. 1244 Unknown [id number] 2.16.840.1.183193.3.579.2. 462 Unknown [id number] 2.16.840.1.886558.3.579.2. 462 Unknown [id number] 2.16.840.1.096581.3.579.2. 462 Unknown [id number] 2.16.840.1.490209.3.579.2. 462 Unknown [id number] 2.16.840.1.201916.3.579.2. 462 Unknown [id number] 2.16.840.1.854941.3.579.2. 462 Unknown [id number] 2.16.840.1.944889.3.579.2. 462 Unknown [id number] 2.16.840.1.179054.3.579.2. 462 Unknown [id number] 2..840.1.233109.3.579.2. 462 Unknown [id number] 2.840.1.280812.3.579.2. 462 Unknown [id number] 2.840.1.922289.3.579.2. 462 Unknown [id number] 2.840.1.832269.3.579.2. 462 Unknown [id number] 2.840.1.395548.3.579.2. 462 Unknown [id number] 2.840.1.096735.3.579.2. 462 Unknown [id number] 2.840.1.286703.3.579.2. 462 Unknown [id number] 2.840.1.186922.3.579.2. 462 Unknown [id number] 2.840.1.593168.3.579.2. 462 Unknown [id number] 2.840.1.076515.3.579.2. 462 Unknown [id number] 2.840.1.278075.3.579.2. 462 Unknown [id number] 2..840.1.798760.3.579.2. 462 Unknown [id number] 2.16.840.1.926747.3.579.2. 462 Unknown [id number] 2.16.840.1.466118.3.579.2. 462 Unknown [id number] 2.840.1.276485.3.579.2. 462 Unknown [id number] 2.16.840.1.624103.3.579.2. 462 Unknown [id number] 2.16.840.1.141112.3.579.2. 462 Unknown [id number] 2.16.840.1.420111.3.579.2. 462 Unknown [id number] 2.16.840.1.731913.3.579.2. 462 Unknown [id number] 2.16.840.1.457437.3.579.2. 462 Unknown [id number] 2.16.840.1.395440.3.579.2. 462 Unknown [id number] 2.16.840.1.365235.3.579.2. 462 Unknown [id number] 2.16.840.1.009674.3.579.2. 462 Unknown [id number] 2.16.840.1.922810.3.579.2. 462 Unknown [id number] 2.16.840.1.376807.3.579.2. 462 Unknown [id number] 2.16.840.1.294515.3.579.2. 462 Unknown [id number] 2.16.840.1.023335.3.579.2. 462 Unknown [id number] 2.16.840.1.473535.3.579.2. 462 Unknown [id number] 2.16.840.1.417965.3.579.2. 462 Unknown [id number] 2.16.840.1.259881.3.579.2. 462 Unknown [id number] 2.16.840.1.154889.3.579.2. 462 Social History Date Type Detail Facility Start: 02-24-2023 End: 03-01-2024 Sexually active Sexually active [facility] Work Phone: Comment on above: No Living Will; Occationally; Start: 03-16-2021 End: 11-09-2024 Tobacco smoking status NHIS Ex-smoker [facility] Start: 03-16-2021 End: 02-24-2023 Tobacco use and exposure Smokeless tobacco non-user [facility] Start: 03-16-2021 End: 11-07-2024 Alcohol intake Current drinker of alcohol (finding) [facility] Start: 03-16-2021 History SDOH Alcohol Comment SOCIAL [facility] Start: 03-16-2021 Tobacco Comment QUIT 7 YEARS AGO [facility] Start: 1975 Sex Assigned At Not on file A [facility] Start: 04-01-2022 End: 01-13-2023 Tobacco smoking consumption unknown [facility] Start: 1975 Sex Assigned At Female [facility] History of tobacco use Current smoker [facility] Work Phone: History of tobacco use Cigarette Smoker [facility] Work Phone: Start: 02-24-2023 End: 03-01-2024 Tobacco use panel [facility] Work Phone: Start: 02-24-2023 Alcohol Comment Occasionally [facility] Work Phone: Start: 02-14-2023 End: 03-21-2024 Exposure to SARS-CoV-2 (event) Not sure [facility] Start: 03-26-2023 Gender identity Identifies as female gender (finding) [facility] Work Phone: Start: 03-26-2023 Sexual orientation Heterosexual (fin ding) [facility] Work Phone: Start: 06-14-2024 Sex Female (finding) [facility] Start: 02-07-2022 Sex Female [facility] NEGATED: Highlighted row [facility] NEGATED: Highlighted row Not [facility] Medical Equipment Procedure Code Equipment Code Equipment Origin al Text Equipment Identifier Dates Reconstruction, breast, with tissue roller stainer FLEXHD PLIABLE PRE-XL-23X 26CM FDA Start: 10-03-2022 Reconstruction, breast, with tissue roller stainer FLEXHD PLIABLE PRE-XL-23X 26CM FDA Start: 10-03-2022 Reconstruction, breast, with tissue roller stainer Plant polysaccharide haemostatic agent, bioabsorbable [id number] FDA Start: 10-03-2022 Reconstruction, breast, with tissue roller stainer Skin-port tissue roller stainer [id number] FDA Start: 10-03-2022 Reconstruction, breast, with tissue roller stainer Skin-port tissue roller stainer [id number] FDA Start: 10-03-2022 Reconstruction, breast, with tissue roller stainer FLEXHD PLIABLE PRE-XL-23X 26CM FDA Start: 10-03-2022 Reconstruction, breast, with tissue roller stainer FLEXHD PLIABLE PRE-XL-23X 26CM FDA Start: 10-03-2022 Reconstruction, breast, with tissue roller stainer FLEXHD PLIABLE PRE-XL-23X 26CM FDA Start: 10-03-2022 Reconstruction, breast, with tissue roller stainer FLEXHD PLIABLE PRE-XL-23X 26CM FDA Start: 10-03-2022 Reconstruction, breast, with tissue roller stainer FLEXHD PLIABLE PRE-XL-23X 26CM FDA Start: 10-03-2022 Reconstruction, breast, with tissue roller stainer FLEXHD PLIABLE PRE-XL-23X 26CM FDA Start: 10-03-2022 Reconstruction, breast, with tissue roller stainer FLEXHD PLIABLE PRE-XL-23X 26CM FDA Start: 10-03-2022 Reconstruction, breast, with tissue roller stainer FLEXHD PLIABLE PRE-XL-23X 26CM FDA Start: 10-03-2022 Reconstruction, breast, with tissue roller stainer FLEXHD PLIABLE PRE-XL-23X 26CM FDA Start: 10-03-2022 Reconstruction, breast, with tissue roller stainer FLEXHD PLIABLE PRE-XL-23X 26CM FDA Start: 10-03-2022 Reconstruction, breast, with tissue roller stainer FLEXHD PLIABLE PRE-XL-23X 26CM FDA Start: 10-03-2022 Reconstruction, breast, with tissue roller stainer FLEXHD PLIABLE PRE-XL-23X 26CM FDA Start: 10-03-2022 Reconstruction, breast, with tissue roller stainer FLEXHD PLIABLE PRE-XL-23X 26CM FDA Start: 10-03-2022 Reconstruction, breast, with tissue roller stainer FLEXHD PLIABLE PRE-XL-23X 26CM FDA Start: 10-03-2022 Reconstruction, breast, with tissue roller stainer FLEXHD PLIABLE PRE-XL-23X 26CM FDA Start: 10-03-2022 Reconstruction, breast, with tissue roller stainer FLEXHD PLIABLE PRE-XL-23X 26CM FDA Start: 10-03-2022 Reconstruction, breast, with tissue roller stainer FLEXHD PLIABLE PRE-XL-23X 26CM FDA Start: 10-03-2022 Reconstruction, breast, with tissue roller stainer FLEXHD PLIABLE PRE-XL-23X 26CM FDA Start: 10-03-2022 Reconstruction, breast, with tissue roller stainer FLEXHD PLIABLE PRE-XL-23X 26CM FDA Start: 10-03-2022 Reconstruction, breast, with tissue roller stainer FLEXHD PLIABLE PRE-XL-23X 26CM FDA Start: 10-03-2022 Reconstruction, breast, bilateral, using MICHELLE free flap 3.0MM CREDIT RISK ANALYTICS MANAGER FDA Start: 03-31-2024 Reconstruction, breast, bilateral, using [...] breast, bilateral, using MICHELLE free flap 3.0MM CREDIT RISK ANALYTICS MANAGER FDA Start: 03-31-2024 Reconstruction, breast, bilateral, using [...] breast, bilateral, using MICHELLE free flap 3.0MM CREDIT RISK ANALYTICS MANAGER FDA Start: 03-31-2024 Reconstruction, breast, bilateral, using [...] breast, bilateral, using MICHELLE free flap 3.0MM CREDIT RISK ANALYTICS MANAGER FDA Start: 03-31-2024 Reconstruction, breast, bilateral, using [...] breast, bilateral, using MICHELLE free flap 3.0MM CREDIT RISK ANALYTICS MANAGER FDA Start: 03-31-2024 Reconstruction, breast, bilateral, using [...] breast, bilateral, using MICHELLE free flap 3.0MM CREDIT RISK ANALYTICS MANAGER FDA Start: 03-31-2024 Reconstruction, breast, bilateral, using [...] breast, bilateral, using MICHELLE free flap 3.0MM CREDIT RISK ANALYTICS MANAGER FDA Start: 03-31-2024 Reconstruction, breast, bilateral, using [...] breast, bilateral, using MICHELLE free flap 3.0MM CREDIT RISK ANALYTICS MANAGER FDA Start: 03-31-2024 Reconstruction, breast, bilateral, using [...] breast, bilateral, using MICHELLE free flap 3.0MM CREDIT RISK ANALYTICS MANAGER FDA Start: 03-31-2024 Reconstruction, breast, bilateral, using [...] breast, bilateral, using MICHELLE free flap 3.0MM CREDIT RISK ANALYTICS MANAGER FDA Start: 03-31-2024 Reconstruction, breast, bilateral, using [...] breast, bilateral, using MICHELLE free flap 3.0MM CREDIT RISK ANALYTICS MANAGER FDA Start: 03-31-2024 Reconstruction, breast, bilateral, using [...] breast, bilateral, using MICHELLE free flap 3.0MM CREDIT RISK ANALYTICS MANAGER FDA Start: 03-31-2024 Reconstruction, breast, bilateral, using [...] breast, bilateral, using MICHELLE free flap 3.0MM CREDIT RISK ANALYTICS MANAGER FDA Start: 03-31-2024 Reconstruction, breast, bilateral, using [...] breast, bilateral, using MICHELLE free flap 3.0MM CREDIT RISK ANALYTICS MANAGER FDA Start: 03-31-2024 Reconstruction, breast, bilateral, using [...] breast, bilateral, using MICHELLE free flap 3.0MM CREDIT RISK ANALYTICS MANAGER FDA Start: 03-31-2024 Reconstruction, breast, bilateral, using [...] breast, bilateral, using MICHELLE free flap 3.0MM CREDIT RISK ANALYTICS MANAGER FDA Start: 03-31-2024 Reconstruction, breast, bilateral, using [...] breast, bilateral, using MICHELLE free flap 3.0MM CREDIT RISK ANALYTICS MANAGER FDA Start: 03-31-2024 Reconstruction, breast, bilateral, using [...] breast, bilateral, using MICHELLE free flap 3.0MM CREDIT RISK ANALYTICS MANAGER FDA Start: 03-31-2024 Reconstruction, breast, bilateral, using [...] breast, bilateral, using MICHELLE free flap 3.0MM CREDIT RISK ANALYTICS MANAGER FDA Start: 03-31-2024 Reconstruction, breast, bilateral, using [...] breast, bilateral, using MICHELLE free flap 3.0MM CREDIT RISK ANALYTICS MANAGER FDA Start: 03-31-2024 Reconstruction, breast, bilateral, using [...] breast, bilateral, using MICHELLE free flap 3.0MM CREDIT RISK ANALYTICS MANAGER FDA Start: 03-31-2024 Reconstruction, breast, bilateral, using [...] breast, bilateral, using MICHELLE free flap 3.0MM CREDIT RISK ANALYTICS MANAGER FDA Start: 03-31-2024 Reconstruction, breast, bilateral, using [...] breast, bilateral, using MICHELLE free flap 3.0MM CREDIT RISK ANALYTICS MANAGER FDA Start: 03-31-2024 Reconstruction, breast, bilateral, using [...] breast, bilateral, using MICHELLE free flap 3.0MM CREDIT RISK ANALYTICS MANAGER FDA Start: 03-31-2024 Reconstruction, breast, bilateral, using [...] FDA Start: 03-31-2024 Reconstruction, breast, bilateral, using MCIHELLE free flap SUTURE,LIGA CLIP SM [id number] FDA [...] breast, bilateral, using MICHELLE free flap 3.0MM CREDIT RISK ANALYTICS MANAGER FDA Start: 03-31-2024 Reconstruction, breast, bilateral, using [...] breast, bilateral, using MICHELLE free flap 3.0MM CREDIT RISK ANALYTICS MANAGER FDA Start: 03-31-2024 Reconstruction, breast, bilateral, using [...] breast, bilateral, using MICHELLE free flap 3.0MM CREDIT RISK ANALYTICS MANAGER FDA Start: 03-31-2024 Reconstruction, breast, bilateral, using [...] implant, breast Plant polysaccharide haemostatic agent, bioabsorbable [id number] FDA Start: 04-11-2022 Insertion, implant, breast Plant polysaccharide haemostatic agent, bioabsorbable [id number] FDA Start: 04-11-2022 Insertion, implant, breast [id number],[id number] [...] implant removal Plant polysaccharide haemostatic agent, bioabsorbable ()[id number] FDA Start: 05-30-2022 Capsulectomy, breast, with implant removal PLIABLE SHAPED PERF LARGE 13 X 22CM FDA Start: 01-21-2023 Capsulectomy, breast, with implant removal Plant polysaccharide haemostatic agent, bioabsorbable ()[id number] FDA Start: 01-21-2023 Capsulectomy, breast, with implant removal PLLABLE SHAPED PERF-LRG- [id number] FDA Start: 01-21-2023 Capsulectomy, breast, with implant removal PLLABLE SHAPED PERF-LRG- [id number] FDA Start: 01-21-2023 Capsulectomy, breast, with implant removal PLLABLE SHAPED [id number] FDA Start: 01-21-2023 Capsulectomy, breast, with implant removal Silicone gel-filled breast implant, smooth-surface [id number] FDA Start: 01-21-2023 Capsulectomy, breast, with implant removal Silicone gel-filled breast implant, smooth-surface [id number] FDA Start: 01-21-2023 Capsulectomy, breast, with implant removal PLIABLE SHAPED PERF LARGE 13 X 22CM FDA Start: 01-21-2023 Capsulectomy, breast, with implant removal PLIABLE SHAPED [id number] FDA Start: 01-21-2023 Capsulectomy, breast, with implant removal PLLABLE SHAPED PERF-[id number]- [id number] FDA Start: 01-21-2023 Capsulectomy, breast, with implant removal PLLABLE SHAPED PERF-LRG- [id number] FDA Start: 01-21-2023 Capsulectomy, breast, with implant removal PLIABLE SHAPED PERF LARGE 13 X 22CM FDA Start: 01-21-2023 Capsulectomy, breast, with implant removal PLIABLE SHAPED [id number] FDA Start: 01-21-2023 Capsulectomy, breast, with implant removal PLLABLE SHAPED PERF-LRG- [id number] FDA Start: 01-21-2023 Capsulectomy, breast, with implant removal PLLABLE SHAPED PERF-LRG- [id number] FDA Start: 01-21-2023 Capsulectomy, breast, with implant removal PLIABLE SHAPED PERF LARGE 13 X 22CM FDA Start: 01-21-2023 Capsulectomy, breast, with implant removal PLIABLE SHAPED [id number] FDA Start: 01-21-2023 Capsulectomy, breast, with implant removal PLLABLE SHAPED PERF-LRG- [id number] FDA Start: 01-21-2023 Capsulectomy, breast, with implant removal PLLABLE SHAPED PERF-LRG- [id number] FDA Start: 01-21-2023 Capsulectomy, breast, with implant removal PLIABLE SHAPED PERF LARGE 13 X 22CM FDA Start: 01-21-2023 Capsulectomy, breast, with implant removal PLIABLE SHAPED [id number] FDA Start: 01-21-2023 Capsulectomy, breast, with implant removal PLLABLE SHAPED PERF-LRG- [id number] FDA Start: 01-21-2023 Capsulectomy, breast, with implant removal PLLABLE SHAPED PERF-LRG- [id number] FDA Start: 01-21-2023 Capsulectomy, breast, with implant removal PLIABLE SHAPED PERF LARGE 13 X 22CM FDA Start: 01-21-2023 Capsulectomy, breast, with implant removal PLIABLE SHAPED [id number] FDA Start: 01-21-2023 Capsulectomy, breast, with implant removal PLLABLE SHAPED PERF-LRG- [id number] FDA Start: 01-21-2023 Capsulectomy, breast, with implant removal PLLABLE SHAPED PERF-LRG- [id number] FDA Start: 01-21-2023 Capsulectomy, breast, with implant removal PLIABLE SHAPED PERF LARGE 13 X 22CM FDA Start: 01-21-2023 Capsulectomy, breast, with implant removal PLIABLE SHAPED [id number] FDA Start: 01-21-2023 Capsulectomy, breast, with implant removal PLLABLE SHAPED PERF-LRG- [id number] FDA Start: 01-21-2023 Capsulectomy, breast, with implant removal PLLABLE SHAPED PERF-LRG- [id number] FDA Start: 01-21-2023 Capsulectomy, breast, with implant removal PLIABLE SHAPED PERF LARGE 13 X 22CM FDA Start: 01-21-2023 Capsulectomy, breast, with implant removal PLIABLE SHAPED [id number] FDA Start: 01-21-2023 Capsulectomy, breast, with implant removal PLLABLE SHAPED PERF-LRG- [id number] FDA Start: 01-21-2023 Capsulectomy, breast, with implant removal PLLABLE SHAPED PERF-LRG- [id number] FDA Start: 01-21-2023 Capsulectomy, breast, with implant removal PLIABLE SHAPED PERF LARGE 13 X 22CM FDA Start: 01-21-2023 Capsulectomy, breast, with implant removal PLIABLE SHAPED [id number] FDA Start: 01-21-2023 Capsulectomy, breast, with implant removal PLLABLE SHAPED PERF-LRG- [id number] FDA Start: 01-21-2023 Capsulectomy, breast, with implant removal PLLABLE SHAPED PERF-LRG- [id number] FDA Start: 01-21-2023 Capsulectomy, breast, with implant removal PLIABLE SHAPED PERF LARGE 13 X 22CM FDA Start: 01-21-2023 Capsulectomy, breast, with implant removal PLIABLE SHAPED [id number] FDA Start: 01-21-2023 Capsulectomy, breast, with implant removal PLLABLE SHAPED PERF-LRG- [id number] FDA Start: 01-21-2023 Capsulectomy, breast, with implant removal PLLABLE SHAPED PERF-LRG- [id number] FDA Start: 01-21-2023 Goals Date Patient Goal Desired Activity /State Functional Status Date Assessment Result Facility 04-03-2024 Functional status Bedside [facility] Work Phone: 04-03-2024 Functional status Activity Abili ty With Assist of 1 [facility] Work Phone: 01-23-2023 Functional status Up ad willy [facility] Work Phone: 10-05-2022 Functional status Ambulates [facility] Work Phone: 06-02-2022 Functional status Ambulates;Up ad willy [facility] Work Phone: 06-01-2022 Functional status Assistive Devices None [facility] Work Phone: 05-30-2022 Functional status Tolerates Activity Fair [facility] Work Phone: 04-14-2022 Functional status Bedrest [facility] Work Phone: Mental Status Date Assessment Result Facility 08-17-2024 Cognitive function Voice/Name [facility] Work Phone: 04-03-2024 Cognitive function Voice/Name [facility] Work Phone: 01-23-2023 Cognitive function Voice/Name [facility] Work Phone: 10-05-2022 Cognitive function Voice/Name [facility] Work Phone: 06-02-2022 Cognitive function Voice/Name [facility] Work Phone: 04-14-2022 Cognitive function Voice/Name [facility] Work Phone: Clinical Notes 01-04-2017 to [...] Amanda Osborne MD documented in this encounter [facility] Work Phone: 11-07-2024 Instructions Amanda Osborne MD - 11/07/2024 8:20 AM EDT Pt stated that she would be changing doctors. documented in this encounter [facility] Work Phone: 11-03-2024 Progress note [facility] 11-03-2024 Progress note Note Date/Time November 03, 2024 9:01am [facility] [address] [place] [address]. [address] [place] [address] OFFICE VISIT Date of Service: 11/03/24 MR#: [id number] Acct: [id number] Name: IRENE LOPEZ Rep #: [id number] : 1975 Provider: Dr. Jamil Turcios MD Age/Sex: 48/F Location: [facility] Status: Signed Intake Vital Signs 10/13/24 15:39 [...] Dr. Allen and plastic surgery here at [facility] last year for issues related to the [...] tang MD> Date _ Mario Turcios MD Cosigner Signature: Date (if applicable) CC: Dr. Amanda Osborne MD ~ [facility] Work Phone: 1(237) 600-546006-19-2025 [facility] [address], [address] [place] [address] OFFICE VISIT Date of Service: 09/01/24 MR#: [id number] Acct: [id number] Name: IRENE LOPEZ Rep #: [id number] : 1975 Provider: Dr. Candelario Allen MD Age/Sex: 48/F Location: [facility] Status: Signed Intake Vital [...] reconstruction revision, including removal of skinpaddles (CPT: 95168 x 2 with 50 modifier) 2) Fat grafting to the left breast, 80 cc, fat grafting to the right breast, 80 cc (CPT: 19516 and 46874 x 3 units) 3) Excision of hypertrophic abdominal scar, 15 x 1 cm (70514) 4) Intermediate closure of abdominal scar excision site, 15 cm (CPT: 67756) 5) Kenalog injection, umbilicus hypertrophic scar 19 [...] generatednote prior to signature. 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 Incisions are clean dry and intact with Prineo tape in place (removed today). Appropriate swelling of the abdomen and thighs after liposuction. Bruising has subsided. Incision c/d/i on abdomen. Lower extremities: No swelling/no calf swelling Coding Level of Care Code Global Post Op Diagnoses History of reconstruction of both breasts Z98.890 [facility] Medical History Deformity of reconstructed breast GERD [...] Cosigner Signature: Date (if applicable) CC: ~ [facility]06-19-2025 Progress note Author Marlon Allen [facility] Note Date/Time September 01, 2024 10:2 6am [facility] [address], [address] [place] [address] OFFICE VISIT Date of Service: 09/01/24 MR#: [id number] Acct: [id number] Name: IRENE LOPEZ Rep #: [id number] : 1975 Provider: Dr. Palomino rt MD Tiffany Age/Sex: 48/F Location: [facility] Status: Signed Intake Vital Signs 08/18/24 16:23 [...] revision, including removal of skin paddles (CPT: 16551 x 2 with 50 modifier) 2) Fat grafting to the left breast, 80 cc, fat grafting to the right breast, 80 cc (CPT: 81468 and 99469 x 3 units) 3) Excision of hypertrophic abdominal scar, 15 x 1 cm (84285) 4) Intermediate closure of abdominal scar excision site, 15 cm (CPT: 16247) 5) Kenalog injection, umbilicus hypertrophic scar 19 [...] generatednote prior to signature. 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 Incisions are clean dry and intact with Prineo tape in place (removed today). Appropriate swelling of the abdomen and thighs after liposuction. Bruising has subsided. Incision c/d/i on abdomen. Lower extremities: No swelling/no calf swelling Coding Level of Care Code Global Post Op Diagnoses History of reconstruction of both breasts Z98.890 [facility] Medical History Deformity of reconstructed breast GERD [...] Cosigner Signature: Date (if applicable) CC: ~ [facility] Work Phone: 1(956) 586-497206-04-2025 Consult note [facility] Medical Records Department [address] [place] [address] Anesthesia Postop Eval II 08/17/24 1151 MR#: [id number] Acct: [id number] Name: ETELVINAIRENE Rep #:[id number] : 1975 48 From: Kayla Peres VETERAN APPEALS REVIEWER PCP: Dr. Amanda Osborne MD Statu s:REG SDC Y Race: C Location: [address] Anesthesia Postop Eval I Sum Postop Eval Completion status Anesthesia document: Postop Eval 1 completed: Yes Anesthesia Postop Eval I Summary Anesthesia Postop Eval I Summary: Anesthesia Postop Eval I: Assessment Summary Airway patent Yes 08/17/24 11:22 VETERAN APPEALS REVIEWER.GDOTT Spontaneous unlabored Yes 08/17/24 11:22 VETERAN APPEALS REVIEWER.GDOTT respirations Mental status Awake,Calm 08/17/24 11:22 VETERAN APPEALS REVIEWER.GDOTT nausea No 08/17/24 11:22 VETERAN APPEALS REVIEWER.GDOTT Vomiting No 08/17/24 11:22 VETERAN APPEALS REVIEWER.GDOTT Anesthesia Postop Eval I: Fluid Summary Crystalloid volume administer 1,700 08/17/24 11:22 VETERAN APPEALS REVIEWER.GDOTT (ml) Colloids volume administered ( ml) Blood Product volume administered (ml) Total IV fluid infused 1,700 08/17/24 11:22 VETERAN APPEALS REVIEWER.GDOTT Anesthesia Postop Eval I: Summary Notes Anesthesia Complication No 08/17/24 11:22 VETERAN APPEALS REVIEWER.GDOTT Anesthesia Complication Comment: Post-operative progress note Anesthesia: Postop Eval II Evaluation Mental status: Asleep Pain Level: 3 nausea: No Vomiting: No 08/17/24 1151 a VETERAN APPEALS REVIEWER> Date _ Kayla Peres VETERAN APPEALS REVIEWER Cosigner Signature: Date CC: ~ Signed [facility]06-04-2025 Consult note Author Kayla Peres [facility] Note Date/Time August 17, 2024 3:15p [facility] Medical Records Department [address] [place] [address] Anesthesia Postop Eval II 08/17/24 1151 MR#: [id number] Acct: [id number] Name: IRENE LOPEZ Rep #:[id number] : 1975 48 From: Kayla Peres CRNA PCP: Dr. Amanda Osborne MD Statu s:REG SDC Y Race: C Location: [place] [address]- Anesthesia Postop Eval I Sum Postop Eval Completion status Anesthesia document: Postop Eval 1 completed: Yes Anesthesia Postop Eval I Summary Anesthesia Postop Eval I Summary: Anesthesia Postop Eval I: Assessment Summary Airway patent Yes 08/17/24 11:22 VETERAN APPEALS REVIEWER.GDOTT Spontaneous unlabored Yes 08/17/24 11:22 VETERAN APPEALS REVIEWER.GDOTT respirations Mental status Awake,Calm 08/17/24 11:22 VETERAN APPEALS REVIEWER.GDOTT nausea No 08/17/24 11:22 VETERAN APPEALS REVIEWER.GDOTT Vomiting No 08/17/24 11:22 VETERAN APPEALS REVIEWER.GDOTT Anesthesia Postop Eval I: Fluid Summary Crystalloid volume administer 1,700 08/17/24 11:22 VETERAN APPEALS REVIEWER.GDOTT (ml) Colloids volume administered ( ml) Blood Product volume administered (ml) Total IV fluid infused 1,700 08/17/24 11:22 VETERAN APPEALS REVIEWER.GDOTT Anesthesia Postop Eval I: Summary Notes Anesthesia Complication No 08/17/24 11:22 VETERAN APPEALS REVIEWER.GDOTT Anesthesia Complication Comment: Post-operative progress note Anesthesia: Postop Eval II Evaluation Mental status: Asleep Pain Level: 3 nausea: No Vomiting: No 08/17/24 1151 <Electronically signed by Kayla blair CRNA> Date _ Kayla Peres CRNA Cosigner Signature: Date CC: ~ Signed [facility] Work Phone: 1(894) 670-496106-04-2025 Consult note Author Maisha Corea [facility] Note Date/Time August 17, 2024 11:22 am [facility] Medical Records Department [address] [place] [address] Anesthesia Postop Eval I 08/17/24 1120 MR#: [id number] Acct: [id number] Name: IRENE LOPEZ Rep #:[id number] : 1975 48 From: Maisha Cerda RNA PCP: Dr. Amanda Osborne MD Statu s:REG [facility] Y Race: C Location: [place] [address] Anesthesia: Postop Eval I Current Vital Signs [...] Postop Eval 1 completed: Yes 08/17/24 1122 <Electronically signed by Maisha Corea CRNA> Date _ Maisha Corea CRNA Cosigner Signature: Date CC: ~ Signed [facility] Work Phone: 1([phone]) [phone] Consult note [facility] Medical Records Department [address] [place] [address] Anesthesia Postop Eval I 08/17/24 1120 MR#: [id number] Acct: [id number] Name: IRENE LOPEZ Rep #:[id number] : 1975 48 From: Maisha Cerda RNA PCP: Dr. Amanda Osborne MD Statu s:REG [facility] Y Race: C Location: [place] [address] Anesthesia: Postop Eval I Current Vital Signs [...] Postop Eval 1 completed: Yes 08/17/24 1122 VETERAN APPEALS REVIEWER> Date _ Maisha Dotterer VETERAN APPEALS REVIEWER Cosigner Signature: Date CC: ~ Signed [facility]06-04-2025 History and physical note Author Marlon Allen [facility] Note Date/Time August 17, 2024 7:20a m [facility] Medical Records Department [address] [place] [address] H&P Exam - Surgical 08/17/24 0635 MR#: [id number] Acct: [id number] Name: IRENE LOPEZ Rep #:[id number] : 1975 48 From: Marlon Allen MD PCP: Dr. Amanda Osborne MD Statu s:REG [facility] Location: [place] [address] HPI - General HPI Narrative IRENE LOPEZ [...] symptoms). Bracing has helped, but CT persisting. 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 Patient marked in preoperative holding today with female software reliability engineer present. We discussed risks of contour abnormalities [...] Osborne MD; Dr. Marlon Allen MD~ Signed [facility] Work Phone: [phone] 138-788406-04-2025 Consult note Author Kenny Davila [facility] Note Date/Time August 17, 2024 6:46a m [facility] Medical Records Department [address] [place] [address] Pre-Anesthesia Evaluation 08/17/24 0639 MR#: [id number] Acct: [id number] Name: IRENE LOPEZ Rep #:[id number] : 1975 48 From: Kenny Davila MD PCP: Dr. Amanda Osborne MD Statu s:REG SDC Y Race: C Location: [place] [address] ASA Classification* ASA Classification ASA Classification: 2 [...] Hgb 11.2 g/dL (12.0-15.0) L 04/01/24 04:20 01/17/2 5 Hct 33.8 % (37-47) L 04/01/24 [...] abdominal scar Anesthesia History Anesthesia History - retail link analyst: Anesthesia History - retail link analyst Hx Hospitalization No 08/03/24 15:06 Any Problems [...] take am of surgery PONV PONV - retail link analyst: PONV - retail link analyst Female Yes 08/03/24 15:06 HX of Motion [...] 08/17/24 06:29 Respiratory Assessment Respiratory Assessment - retail link analyst: Respiratory Tract Infection Hx - retail link analyst Hx Respiratory Tract Infection No 08/03/24 15:06 STOP Sleep Apnea STOP Sleep Apnea - retail link analyst: STOP Sleep Apnea - retail link analyst Hx Hypertension No 08/03/24 15:06 Hx Sleep [...] Tobacco Use History Tobacco Use History - retail link analyst: Tobacco Use History - retail link analyst Tobacco Use Smoking Status Former smoker 08/03/24 15:06 Hx Tobacco Use No 08/03/24 15:06 Years Smoking Packs Smoked per Day Smoking Cessation Date was No - quit smoking greater 08/03/24 15:06 within the last 15 years than 15 years ago Hx Smoking Cessation Date 03/16/12 08/03/24 15:06 Hx Smoking Cessation No 08/03/24 15:06 Counseling Hematologic Medial History Hematologic Hx - retail link analyst: Hematologic Medical Hx - territory sales executive Hx of Blood Transfusion No 08/03/24 15:06 [...] confused, unrespo /Reproduction History /Reproductive History - retail link analyst: /Reproductive Hx- retail link analyst Hx Now No 08/03/24 15:06 Gestational Age [...] and diaphoretic 08/17/24 0646 <Electronically signed by Kenny Davila MD> Date _ Kenny Davila MD Cosigner Signature: Date CC: ~ Signed [facility] Work Phone: 1([phone]) 410-549406-04-2025 History and physical note [facility] Medical Records Department [facility] [place] [address] H&P Exam - Surgical 08/17/24 0635 MR#: [id number] Acct: [id number] Name: IRENE LOPEZ Rep #:[id number] : 1975 48 From: Marlon Allen MD PCP: Dr. Amanda Osborne MD Statu s:REG [facility] Location: [place] [address] HPI - General HPI Narrative IRENE LOPEZ [...] symptoms). Bracing has helped, but CT persisting. 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 Patient marked in preoperative holding today with female software reliability engineer present. We discussed risks of contour abnormalities [...] Osborne MD; Dr. Marlon Allen MD~ Signed [facility]06-04-2025 Consult note [facility] Medical Records Department [address] [place] [address] Pre-Anesthesia Evaluation 08/17/24 0639 MR#: [id number] Acct: [id number] Name: IRENE LOPEZ Rep #:[id number] : 1975 48 From: Kenny Davila MD PCP: Dr. Amanda Osborne MD Statu s:REG SD Y Race: C Location: [place] [address] ASA Classification* ASA Classification ASA Classification: 2 [...] abdominal scar Anesthesia History Anesthesia History - retail link analyst: Anesthesia History - retail link analyst Hx Hospitalization No 08/03/24 15:06 Any Problems [...] take am of surgery PONV PONV - retail link analyst: PONV - retail link analyst Female Yes 08/03/24 15:06 HX of Motion [...] 08/17/24 06:29 Respiratory Assessment Respiratory Assessment - retail link analyst: Respiratory Tract Infection Hx - retail link analyst Hx Respiratory Tract Infection No 08/03/24 15:06 STOP Sleep Apnea STOP Sleep Apnea - retail link analyst: STOP Sleep Apnea - retail link analyst Hx Hypertension No 08/03/24 15:06 Hx Sleep [...] Tobacco Use History Tobacco Use History - retail link analyst: Tobacco Use History - retail link analyst Tobacco Use Smoking Status Former smoker 08/03/24 15:06 Hx Tobacco Use No 08/03/24 15:06 Years Smoking Packs Smoked per Day Smoking Cessation Date was No - quit smoking greater 08/03/24 15:06 within the last 15 years than 15 years ago Hx Smoking Cessation Date 03/16/12 08/03/24 15:06 Hx Smoking Cessation No 08/03/24 15:06 Counseling Hematologic Medial History Hematologic Hx - retail link analyst: Hematologic Medical Hx - territory sales executive Hx of Blood Transfusion No 08/03/24 15:06 [...] confused, unrespo /Reproduction History /Reproductive History - retail link analyst: /Reproductive Hx- retail link analyst Hx Now No 08/03/24 15:06 Gestational Age [...] rhythm, no murmurs and diaphoretic 08/17/24 0646 MD> Date _ Kenny Smiley Signature: Date CC: ~ Signed [facility]05-15-2025 Evaluation note* Diagnosis Onset Date Resolution Status [...] rectus abdominis acute November 03, 2024 8:18am [facility] Work Phone: 1(900) 777-453704-24-2025 Evaluation note* Diagnosis Onset Date Resolution Status [...] rectus abdominis acute November 03, 2024 8:18am [facility] Work Phone: 1([phone]) [phone] Evaluation note* Diagnosis Onset Date Resolution Status [...] both breasts acute September 01, 2024 9:51am [facility] Work Phone: 1([phone]) 896-627803-24-2025 Progress note Author Marlon Allen [facility] Note Date/Time June 06, 2024 9:2 6am [facility] [address] [place] [address] Progress Note - Wound Care 06/06/24 0646 MR#: [id number] Acct: [id number] Name: IRENE LOPEZ Rep #:[id number] : 1975 48 From: Marlon Allen MD [...] Index (BMI) 28.6 Charges/Coding Procedures Integumentary 111xxx-113xx: 55940 Global Visit Physical Exam Narrative Right breast [...] Recorded Date Recorded By Document 05/16/24 10:22 [facility] [id number] 05/16/24 10:35 [facility] Document 05/23/24 08:52 [id number] 05/23/24 08:57 KW 05/16/24 05/23/24 10:22 08:52 - Today's Visit Information Type of service Initial Visit Follow-up Visit (Physician/MATERIALS BUYER ) Arrival Mode Ambulatory Ambulatory Transfer Assistance [...] in Ability to Perform Denies Any Declines Culture/Muslim/[place] Cultural/Muslim Needs that may affect No Treatment Plan Teaching: Wound Center *Welcome to the Wound Center -Person Taught Patient -Teaching Method Discussion -Response to teaching Verbalize Understanding WC - Nurse 1 - General Ulcer Measurement Start: 05/16/24 10:22 Freq: Status: Active Protocol: Activity Type Activity Date Activity User E-sign Co-sign Detail Recorded Client Recorded Date Recorded By Document 05/16/24 10:22 [facility] [id number] 05/16/24 10:35 [facility] Document 05/23/24 08:52 [id number] 05/23/24 08:57 KW 05/16/24 05/23/24 10:22 08:52 [...] Attached -Granulation Amt Large (67-100%) -Granulation Quality Malott -Necrosis Amt Small (1-33%) -Necrotic Tissue Type [...] Date Recorded By Document 05/16/24 11:02 DS [id number] 05/16/24 11:12 DS Document 05/23/24 09:02 DS [id number] 05/23/24 09:07 DS 05/16/24 05/23/24 11:02 09:02 [...] Recorded Date Recorded By Document 05/16/24 11:20 [facility] [id number] 05/16/24 11:22 [facility] Document 05/23/24 09:23 [facility] [id number] 05/23/24 09:24 [facility] 05/16/24 05/23/24 11:20 09:23 Wound Care [...] Cosigner Signature (if applicable): CC: ~ Signed [facility] Work Phone: 1(479) 442-271303-24-2025 Progress note [facility] [address] [place] [address] Progress Note - Wound Care 06/06/24 0646 MR#: [id number] Acct: [id number] Name: IRENE LOPEZ Rep #:[id number] : 1975 48 From: Marlon Allen MD [...] Index (BMI) 28.6 Charges/Coding Procedures Integumentary 111xxx-113xx: 99561 Global Visit Physical Exam Narrative Right breast wound healing well, granulating. No drainage. 0.5 x 1.1 cm and 1 cm deep. Re-packed today. Beafy red granulation at the base over the MICHELLE flap Central abdomen Re-epithelialized. Healthy umbilicus. Debridement Note Debridement Note Post-Debridement Measurements and Additional Note: Post-Debridement Measurements/Treatment - Nurse 1 - General Ulcer Assessment Start: 05/16/24 10:22 Freq: Status: Active Protocol: ANGY.BESSY Activity Type Activity Date Activity User E-sign Co-sign Detail Recorded Client Recorded Date Recorded By Document 05/16/24 10:22 [facility] [id number] 05/16/24 10:35 [facility] Document 05/23/24 08:52 [id number] 05/23/24 08:57 KW 05/16/24 05/23/24 10:22 08:52 - Today's Visit Information Type of service Initial Visit Follow-up Visit (Physician/MATERIALS BUYER ) Arrival Mode Ambulatory Ambulatory Transfer Assistance [...] in Ability to Perform Denies Any Declines Culture/Muslim/Cook [place] Cultural/Muslim Needs that may affect No Treatment Plan Teaching: Wound Center *Welcome to the Wound Center -Person Taught Patient -Teaching Method Discussion -Response to teaching Verbalize Understanding WC - Nurse 1 - General Ulcer Measurement Start: 05/16/24 10:22 Freq: Status: Active Protocol: Activity Type Activity Date Activity User E-sign Co-sign Detail Recorded Client Recorded Date Recorded By Document 05/16/24 10:22 [facility] [id number] 05/16/24 10:35 [facility] Document 05/23/24 08:52 KW [id number] 05/23/24 08:57 KW 05/16/24 05/23/24 10:22 08:52 [...] Attached -Granulation Amt Large (67-100%) -Granulation Quality Malott -Necrosis Amt Small (1-33%) -Necrotic Tissue Type [...] Date Recorded By Document 05/16/24 11:02 DS [id number] 05/16/24 11:12 DS Document 05/23/24 09:02 DS [id number] 05/23/24 09:07 DS 05/16/24 05/23/24 11:02 09:02 [...] Recorded Date Recorded By Document 05/16/24 11:20 [facility] [id number] 05/16/24 11:22 [facility] Document 05/23/24 09:23 [facility] [id number] 05/23/24 09:24 [facility] 05/16/24 05/23/24 11:20 09:23 Wound Care [...] Cosigner Signature (if applicable): CC: ~ Signed [facility]03-10-2025 Progress note Author Marlon Allen [facility] Note Date/Time May 23, 2024 9:4 8am [facility] [address] [place] [address] Progress Note - Wound Care 05/23/24 0846 MR#: [id number] Acct: [id number] Name: IRENE LOPEZ Rep #:[id number] : 1975 48 From: Marlon Allen MD [...] Index (BMI) 28.6 Charges/Coding Procedures Integumentary 111xxx-113xx: 71166 Global Visit Physical Exam Narrative Right breast [...] Recorded Date Recorded By Document 05/16/24 10:22 [facility] [id number] 05/16/24 10:35 [facility] 05/16/24 10:22 WC - Today's Visit Information Type of [...] in Ability to Perform Denies Any Declines Culture/Muslim/Cook [place] Cultural/Muslim Needs that may affect No Treatment Plan Teaching: Wound Center *Welcome to the Wound Center -Person Taught Patient -Teaching Method Discussion -Response to teaching Verbalize Understanding ANGY - Nurse 1 - General Ulcer Measurement Start: 05/16/24 10:22 Freq: Status: Active Protocol: Activity Type Activity Date Activity User E-sign Co-sign Detail Recorded Client Recorded Date Recorded By Document 05/16/24 10:22 [facility] [id number] 05/16/24 10:35 [facility] 05/16/24 10:22 Wound Center Nurse 1 [...] Attached -Granulation Amt Large (67-100%) -Granulation Quality Malott -Necrosis Amt Small (1-33%) -Necrotic Tissue Type [...] Date Recorded By Document 05/16/24 11:02 DS [id number] 05/16/24 11:12 DS 05/16/24 11:02 Wound Center [...] Recorded Date Recorded By Document 05/16/24 11:20 [facility] [id number] 05/16/24 11:22 [facility] 05/16/24 11:20 Wound Care Center Nurse [...] Patient happy with the plan 05/23/24 0922 <Electronically signed by Marlon Allen MD> Cosigner Signature (if applicable): CC: ~ Signed [facility] Work Phone: [phone]) 520-888503-10-2025 Progress note [facility] [address] [place] [address] Progress Note - Wound Care 05/23/24 0846 MR#: [id number] Acct: [id number] Name: IRENE LOPEZ Rep #:[id number] : 1975 48 From: Marlon Allen MD [...] Index (BMI) 28.6 Charges/Coding Procedures Integumentary 111xxx-113xx: 11655 Global Visit Physical Exam Narrative Right breast [...] Recorded Date Recorded By Document 05/16/24 10:22 [facility] [id number] 05/16/24 10:35 [facility] 05/16/24 10:22 - Today's Visit Information [...] in Ability to Perform Denies Any Declines Culture/Muslim/Cook [place] Cultural/Muslim Needs that may affect No Treatment Plan Teaching: Wound Center *Welcome to the Wound Center -Person Taught Patient -Teaching Method Discussion -Response to teaching Verbalize Understanding WC - Nurse 1 - General Ulcer Measurement Start: 05/16/24 10:22 Freq: Status: Active Protocol: Activity Type Activity Date Activity User E-sign Co-sign Detail Recorded Client Recorded Date Recorded By Document 05/16/24 10:22 [facility] [id number] 05/16/24 10:35 [facility] 05/16/24 10:22 Wound Center Nurse 1 [...] Attached -Granulation Amt Large (67-100%) -Granulation Quality Malott -Necrosis Amt Small (1-33%) -Necrotic Tissue Type [...] Date Recorded By Document 05/16/24 11:02 DS [id number] 05/16/24 11:12 DS 05/16/24 11:02 Wound Center [...] Recorded Date Recorded By Document 05/16/24 11:20 [facility] [id number] 05/16/24 11:22 [facility] 05/16/24 11:20 Wound Care Center Nurse [...] Cosigner Signature (if applicable): CC: ~ Signed [facility]03-03-2025 History and physical note Author Marlon Allne [facility] Note Date/Time May 16, 2024 3:40 pm [facility] [address] [place] [address] H&P Exam - Wound Care 05/16/24 1320 MR#: [id number] Acct: [id number] Name: IRENE LOPEZ Rep #:[id number] : 1975 48 From: Marlon Allen MD [...] fevers chills. Doing well with wound care. [facility] Medical History Deformity of reconstructed breast GERD [...] Recorded Date Recorded By Document 05/16/24 10:22 [facility] [id number] 05/16/24 10:35 [facility] 05/16/24 10:22 - Today's Visit Information [...] in Ability to Perform Denies Any Declines Culture/Muslim/Cook [place] Cultural/Muslim Needs that may affect No Treatment Plan Teaching: Wound Center *Welcome to the Wound Center -Person Taught Patient -Teaching Method Discussion -Response to teaching Verbalize Understanding WC - Nurse 1 - General Ulcer Measurement Start: 05/16/24 10:22 Freq: Status: Active Protocol: Activity Type Activity Date Activity User E-sign Co-sign Detail Recorded Client Recorded Date Recorded By Document 05/16/24 10:22 [facility] [id number] 05/16/24 10:35 [facility] 05/16/24 10:22 Wound Center Nurse 1 [...] Attached -Granulation Amt Large (67-100%) -Granulation Quality Malott -Necrosis Amt Small (1-33%) -Necrotic Tissue Type [...] Date Recorded By Document 05/16/24 11:02 DS [id number] 05/16/24 11:12 DS 05/16/24 11:02 Wound Center [...] Recorded Date Recorded By Document 05/16/24 11:20 [facility] [id number] 05/16/24 11:22 [facility] 05/16/24 11:20 Wound Care Center Nurse [...] Transportation Private Auto Charges/Coding Procedures Integumentary 111xxx-113xx: 77442 Global Visit Assessment/Plan Assessment/Plan (1) History of reconstruction of both breasts: CODE(S): Z98.890 - Other specified postprocedural states PLAN: Central abdomen with with some break down centrally. Debrided and cleaned today. Umbilicus and right breast healing well. Continue Aquacel Ag dressings twice daily. F/u in 1 week 05/16/24 1640 <Electronically signed by Marlon Allen MD> Cosigner Signature (if applicable): CC: ~ Signed [facility] Work Phone: 1([phone]) 321-455503-03-2025 History and physical note [facility] [address] [place] [address] H&P Exam - Wound Care 05/16/24 1320 MR#: [id number] Acct: [id number] Name: IRENE LOPEZ Rep #:[id number] : 1975 48 From: Marlon Allen MD [...] fevers chills. Doing well with wound care. [facility] Medical History Deformity of reconstructed breast GERD [...] Start: 05/16/24 10:22 Freq: Status: Active Protocol: .LOWBRANDYT Activity Type Activity Date Activity User E-sign Co-sign Detail Recorded Client Recorded Date Recorded By Document 05/16/24 10:22 [facility] [id number] 05/16/24 10:35 [facility] 05/16/24 10:22 - Today's Visit Information [...] in Ability to Perform Denies Any Declines Culture/Muslim/Cook [place] Cultural/Muslim Needs that may affect No Treatment Plan Teaching: Wound Center *Welcome to the Wound Center -Person Taught Patient -Teaching Method Discussion -Response to teaching Verbalize Understanding WC - Nurse 1 - General Ulcer Measurement Start: 05/16/24 10:22 Freq: Status: Active Protocol: Activity Type Activity Date Activity User E-sign Co-sign Detail Recorded Client Recorded Date Recorded By Document 05/16/24 10:22 [facility] [id number] 05/16/24 10:35 [facility] 05/16/24 10:22 Wound Center Nurse 1 [...] Attached -Granulation Amt Large (67-100%) -Granulation Quality Malott -Necrosis Amt Small (1-33%) -Necrotic Tissue Type [...] Date Recorded By Document 05/16/24 11:02 DS [id number] 05/16/24 11:12 DS 05/16/24 11:02 Wound Center [...] Recorded Date Recorded By Document 05/16/24 11:20 [facility] [id number] 05/16/24 11:22 [facility] 05/16/24 11:20 Wound Care Center Nurse [...] Transportation Private Auto Charges/Coding Procedures Integumentary 111xxx-113xx: 25140 Global Visit Assessment/Plan Assessment/Plan (1) History of reconstruction of both breasts: CODE(S): Z98.890 - Other specified postprocedural states PLAN: Central abdomen with with some break down centrally. Debrided and cleaned today. Umbilicus and right breast healing well. Continue Aquacel Ag dressings twice daily. F/u in 1 week 05/16/24 1640 Cosigner Signature (if applicable): CC: ~ Signed [facility]02-21-2025 Evaluation note* Diagnosis Onset Date Resolution Status Admit Date Fat necrosis (segmental) of breast acute May 06, 2 025 1:30pm Fat necrosis (segmental) of breast acute May 10 025 3:22pm History of reconstruction of both [...] both breasts acute September 01, 2024 9:51am [place] [employer] Work Phone: 1(778) 753-884302-18-2025 Evaluation note* Diagnosis Onset Date Resolution Status [...] breasts acute August 19, 2024 8 :18am [facility] Work Phone: [phone]) [phone] Evaluation note* Diagnosis Onset Date Resolution Status [...] breasts acute August 17, 2024 6 :00am [facility] Work Phone: [phone] Evaluation note* Diagnosis Onset Date Resolution Status [...] breasts acute August 17, 2024 6 :00am [facility] Work Phone: [phone] 121-265601-19-2025 [facility] Medical Records Department [address] [place] [address] Discharge Summary 04/03/24 1032 MR#: [id number] Acct: [id number] Name: IRENE LOPEZ Rep #: [id number] : 1975 48 From: Marlon Allen MD [...] bilateral breast reconstruction using Deep Inferior Epigastric Tenterer (MICHELLE) flaps on 31 Mar 2024. She [...] her chest/the flaps. 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 Work Phone: [phone] 702-399801-06-2025 Instructions* Patient Instructions* Amanda Osborne MD - 03/21/2024 8:20 AM EST She is medically stable for surgery. Follow up here as needed. [facility] Work Phone: [phone]) [phone] Evaluation note* Diagnosis Onset Date Resolution Status Admit Date History of reconstruction of both breasts acute March 03, 2 024 2:47pm Deformity of reconstructed breast chronic March 03 2 024 2:47pm History of reconstruction of both [...] breakdown of skin acute June 06 8:45am [facility] Work Phone: [phone] 569-248812-17-2024 History of Present illness Narrative* Zenaida Silva [...] 3.2 oz) BMI 30.65 kg/m PHYSICAL EXAMINATION: Bioinformatics Engineer present for exam: Irene Lacy LPN [employer], [...] visit in 1 year. 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 [...] examination Amanda Osborne MD [facility] Work Phone: [phone]) 601-801010-22-2024 Instructions* Patient Instructions* Amanda Osborne MD - 01/05/2024 8:20 AM EDT She is medically stable for surgery. [facility] Work Phone: [phone]) 290-810405-21-2024 History of Present illness Narrative* Ab Puri [...] Review Audit Reviewed by Geno Esquivel MA (Curriculum Development Specialist) on 08/04/23 at 0927 Medication Order Taking? Sig Documenting Provider Last Dose Status diazePAM (Valium) 5 mg tablet [id number] Yes Take 1 tablet (5 mg) by mouth every 8 hours if needed for muscle spasms. Historical Provider, Taking Active fluticasone (Flonase) 50 mcg/actuation nasal spray [id number] Yes USE 2 SPRAY(S) IN EACH NOSTRIL TWICE DAILY Amanda Osborne MD Taking Active ibuprofen 800 mg tablet [id number] Yes Take 1 tablet (800 mg) by mouth every 8 hours if needed for mild pain (1 - 3). Amanda Osborne MD Taking Active levoFLOXacin (Levaquin) 500 mg tablet [id number] Yes Take 1 tablet (500 mg) by mouth once daily. Historical Provider, Unknown Active omeprazole (PriLOSEC) [address] capsule [id number] Yes Take 1 capsule (40 mg) by mouth once daily. Amanda Osborne MD Taking Active SUMAtriptan (Imitrex) 100 mg tablet [id number] Yes Take 1 tablet (100 mg) by mouth 1 time if needed for migraine (TAKE 1 TABLET EVERY 2 HOURS NEEDED FOR MIGRAINE. DO NOT EXCEED 200 MG). Amanda Martinez MD Taking Active valACYclovir (Valtrex) 500 mg tablet [id number] Yes Take 1 tablet (500 mg) by mouth once daily. Amanda Osborne MD Taking Active Past Medical History: Diagnosis Date Encounter for examination of eyes and vision without abnormal findings Examination of eyes and vision Encounter for full-term uncomplicated delivery ([facility]) Normal vaginal delivery Encounter for gynecological examination [...] Irene's care are: none Ab Puri CNP [facility] [phone] documented [facility] Work Phone: 1([phone]) [phone] History of Present illness Narrative* Judith Osullivan [...] tablet Amanda Osborne MD [facility] Work Phone: [phone] Instructions* Patient Instructions* Amanda Osborne MD - 04/17/2023 3:20 PM EST Will check a doppler of the leg, continue other current medications. Follow up based on results andsymptoms. documented in this [facility] Work Phone: [phone]) 471-954712-12-2023 History of Present illness Narrative* Zenaida Silva [...] 6 months for yearly documented in this [facility] Work Phone: [phone] Discharge summary Author Rachel Beard [facility] January 23, 2023 2:29pm Note Date/Time January 23, 2023 2:05pm [facility] Medical Records Department [address] [place] [address] Instructions for Home/Discharge Instructions 01/23/23 1317 MR#: [id number] Acct: [id number] Name: IRENE LOPEZ Rep #:[id number] : 1975 47 From: Rachel gibson SOCIAL SERVICES COUNSELOR SOCIAL SERVICES COUNSELOR-C PCP: Dr. Amanda Osborne MD Statu s:ADM [...] Follow Up With: Zenaida Barrett MD When: [facility] will call you Thursday to set up your appointment on Thursday. If you have any questions call [phone] Test Results: Test results from this visit [...] Self Care 01/23/231428<Electronically signed by Rachel Beard NP SOCIAL SERVICES COUNSELOR-C>Rachel Beard NP SOCIAL SERVICES COUNSELOR-C CC: Dr. Amanda Osborne MD ~ Signed [facility] Work Phone: [phone] Progress note Author Rachel Beard [facility] January 23, 2023 2:49pm Note Date/Time January 23, 2023 2:36pm [facility] Medical Records Department [address] [place] [address] Progress Note - Surgery 01/23/231428 MR#: [id number] Acct: [id number] Name: ETELVINAIRENE RAMIREZN Rep #:[id number] : 1975 47 From: Rachel gibson SOCIAL SERVICES COUNSELOR SOCIAL SERVICES COUNSELOR-C PCP: Dr. Amanda Osborne MD Statu s:ADM ALEX Location: MS3 [id number] Subjective Subjective Postop #2 Patient is complaining [...] GFR (MDRD) Non-Af 87, BUN/Creatinine Ratio 20.0, Lcwtecu962 H, Calcium 8.4 L Micro: Microbiology 01/21/23 [...] 01/23/23 1449 <Electronically signed by Rachel Beard NP SOCIAL SERVICES COUNSELOR-C> Cosigner Signature (if applicable): CC: ~ Signed [facility] Work Phone: [phone]) [phone] Progress note Author Rachel Beard [facility] January 22, 2023 10:24pm Note Date/Time January 22, 2023 1 0:06pm [facility] Medical Records Department [address] [place] [address] Progress Note - Surgery 01/22/23 1220 MR#: [id number] Acct: [id number] Name: IRENE LOPEZ Rep #:[id number] : 1975 47 From: Rachel gibson SOCIAL SERVICES COUNSELOR SOCIAL SERVICES COUNSELOR-C PCP: Dr. Amanda Osborne MD Statu s:ADM ALEX Location: [place] [address] Subjective Subjective Postop #1 Patient sitting in [...] Output Total 1974 1665 / 1665 Balance 1965 / 1964 -350 / -350 Lab / [...] GFR (MDRD) Non-Af 85, BUN/Creatinine Ratio 18.2, Emmeptl150 H, Calcium 8.7, Prealbumin 20.8 01/22/23 19:22: [...] 01/22/232223 <Electronically signed by Rachel Beard NP SOCIAL SERVICES COUNSELOR-C> Cosigner Signature (if applicable): CC: ~ Signed [facility] Work Phone: [phone] Consult note Author Meredith Brandt [facility] January 21, 2023 7:59pm Note Date/Time January 21, 2023 7 :59pm [facility] Medical Records Department [address] [place] [address] Pharmacokinetic/Renal -Consult 01/21/231957 MR#: [id number] Acct: [id number] Name: IRENE LOPEZ Rep #:[id number] : 1975 47 From: Meredith Brandt PCP: Dr. Amanda Osborne MD Statu s:ADM ALEX Y Location: [place] [address] Consult Antibiotic Management Pharmacy has been consulted [...] Signature (if applicable): Date CC: ~ Signed [facility] Work Phone: [phone] Discharge summary Author Zenaida Barrett [facility] October 05, 2022 10:48am Note Date/Time October 05, 2022 7:58 am [facility] Medical Records Department [address] [place] [address] Instructions for Home/Discharge Instructions 10/05/22 0757 MR#: [id number] Acct: [id number] Name: IRENE LOPEZ Rep #:[id number] : [...] When: one week ( or Thursday). call [phone] for appt. Test Results: Test results from [...] CC: Dr. Amanda Osborne MD ~ Signed [facility] Work Phone: [phone] Consult note Author Zenaida [facility] Campusr[facility] October 05, 2022 7:35am Note Date/Time October 03, 2022 5:22 pm [facility] Medical Records Department [address] [place] [address] Pharmacokinetic/Renal -Consult 10/03/22 1721 MR#: [id number] Acct: [id number] Name: IRENE LOPEZ Rep #:[id number] : 1975 46 From: Shira Grissom PCP: Dr. Amanda Osborne MD Statu s:ADM ALEX Y Location: [place] [address] Consult Antibiotic Management Pharmacy has been consulted [...] monitor and adjust dosing as required. 10/03/22 1722 <Electronically signed by Shira Grissom> Date _ Shira Grissom 10/05/22 0735 <Electronically signed by Zenaida Barrett MD> Cosigner Signature (if applicable): Date Zenaida Barrett MD CC: ~ Signed [facility] Work Phone: [phone] Consult note Author Marlon Hightower [facility] October 04, 2022 6:27pm Note Date/Time October 04, 2022 6:27 pm [facility] Medical Records Department [address] [place] [address] Pharmacokinetic/Renal -Consult 10/04/221822 MR#: [id number] Acct: [id number] Name: ETELVINAIRENE KUHN Cynthia Rep #:[id number] : 1975 46 From: Marlon Hightower PCP: Dr. Amanda Osborne MD Statu s:ADM ALEX Y Location: [place]3 [id number] Consult Antibiotic Management Pharmacy has been consulted [...] monitor and adjust dosing as required. 10/04/22 075 <Electronically signed by Marlon Hightower> Date _ Marlon Hightower Cosigner Signature (if applicable): Date CC: ~ Signed [facility] Work Phone: [phone]) [phone] Progress note Author Rachel Beard [facility] June 03, 2022 9:23am Note Date/Time May 19, 2022 11:2 4am [facility] [address] [place] [address] Progress Note - Wound Care HBO 05/19/22 1124 MR#: [id number] Acct: [id number] Name: IRENE LOPEZ Rep #:[id number] : 1975 46 From: Rachel gibson NP, NP-C PCP: Dr. Amanda Osborne MD Statu s:REG RCR Location: WC ADDENDUM by IVYC Rachel Beard on 06/03/22 at 0923 Addendum Addendum: [id number] Modifier 24 06/03/22 0923<Electronically signed by Rachel BYNUM> Cosigner Signature (if applicable): cc: ~* Signed [...] Date Recorded By Document 05/19/22 08:38 DL [id number] 05/19/22 08:44 DL 05/19/22 08:38 - Today's Visit Information Type of service Follow-up Visit (Physician/MATERIALS BUYER ) Arrival Mode Ambulatory Transfer Assistance None [...] Date Recorded By Document 05/19/22 08:38 DL [id number] 05/19/22 08:44 DL 05/19/22 08:38 Wound Center Nurse 1 #2 L BREAST -Current Size (cm) - Length 9 -Current Size (cm) - Width 2 -Current Size (cm) - Depth 0.1 -Total Square Cm 18 -Exudate Amt Small -Exudate Type Serosanguineous -Wound Margin Distinct, Outline Attached -Granulation Amt Medium (34-66%) -Granulation Quality Malott -Slough/Fibrin Yes -Necrosis Amt Large (67-100%) -Necrotic [...] Charges/Coding Wound Center CF Procedures HBO Supervision: 66002 Hyperbaric Oxygen; supervision (modifier 25) Assessment/Plan Assessment/Plan [...] 1322 <Electronically signed by Rachel Beard NP SOCIAL SERVICES COUNSELOR-C> Cosigner Signature (if applicable): CC: ~ Signed [facility] Work Phone: [phone]) 581-602903-20-[address] Barrett [facility] June 02, 2022 3:52pm Note Date/Time June 02, 2022 2:1 9pm [facility] Medical Records Department [address] [place] [address] Instructions for Home/Discharge Instructions 06/02/22 1418 MR#: [id number] Acct: [id number] Name: IRENE LOPEZ Rep #:[id number] : [...] Zenaida Barrett MD When: one week. call [phone] for appt Test Results: Test results from [...] CC: Dr. Amanda Osborne MD ~ Signed [facility] Work Phone: [phone]) 888-385503-18-2023 Consult note Author Giancarlo Omalley [facility] May 31, 2022 8:40pm Note Date/Time May 31, 2022 8:4 0pm [facility] Medical Records Department [address] [place] [address] Pharmacokinetic/Renal -Consult 05/31/222037 MR#: [id number] Acct: [id number] Name: IRENE LOPEZ Rep #:[id number] : 1975 46 From: Giancarlo Omalley PCP: Dr. Amanda Osborne MD Statu s:ADM ALEX Y Location: [place] [address] Consult Pharmacy has been consulted to manage [...] Signature (if applicable): Date CC: ~ Signed [facility] Work Phone: [phone] History and physical note Author Dr. Barrett [facility] May 30, 2022 8:26am Note Date/Time May 30, 2022 8:1 1am [facility] Medical Records Department [address] [place] [address] History & Physical Exam 05/30/22 0810 MR#: [id number] Acct: [id number] Name: IRENE LOPEZ Rep #:[id number] : 1975 46 From: Zenaida Greer PCP: Dr. Amanda Osborne MD Statu s:REG [facility] Location: [place] [address] History and Physical Date of Admission: 05/30/22 [...] and TP53.? The testing was done by [employer] She had a heterozygous DEISY mutation [...] Her last mammogram was in May,, in [place].? Patient states it was normal.? It showed very dense breast parenchyma bilaterally.? No obvious mass lesion.? Palpable nodule left breast 2 olock position in subcutaneous tissue such as sebaceous cyst.? Benign, no evidence malignancy.? We have received medical approval for her breast reconstruction surgery.? She has decided on proceeding with bilateral prophylactic mastectomy with prepectoral breast implant reconstruction possible placement saline tissue roller stainer and acellular dermal matrix graft.? Initially she [...] will hold off on placement of an roller stainer at this time.? Will debride the wound and proceed with complex secondary wound closure.? After healing has occurred and the infection has been treated, will return to the operating room for placement of a tissue roller stainer in a delayed fashion, tentatively 6 months.? If there is no pus after removing the implant, then I would decide about placing a tissue roller stainer at that time or just closing the wound and allowing healing to occur and then placing a tissue roller stainer in a delayed fashion, tentatively 3 months. [...] two stage placement of a saline tissue roller stainer (smooth) followed by removal of the roller stainer with replacement cohesive gel implant and placement [...] She would be flat if a tissue roller stainer was placed.? For a single stage procedure, [...] with the placement of a saline tissue roller stainer.? With the expansion, the nipple may elevate [...] proceed with placement of a saline tissue roller stainer.? This would expand the skin and breast pocket so a larger implant can be placed after the roller stainer is removed. She understands that she may or may not wake up with a breast mound.? If a saline tissue roller stainer is placed, then additional surgery would be necessary to replace the roller stainer with a cohesive gel implant.? The chance [...] implants or placement of a saline tissue roller stainer and subsequent tissue roller stainer removal with replacement cohesive gel implant.? It [...] carcinoma. Her last mammogram was done in [place] in May,.? It showed dense breast parenchyma [...] Barrett MD; Dr. Amanda Osborne MD~ Signed [facility] Work Phone: [phone] Alvarez [facility] May 27, 2022 2:07pm Note Date/Time May 27, 2022 2:0 7pm [facility] [address] [place] [address] Progress Note - Wound Care HBO 05/27/22 1403 MR#: [id number] Acct: [id number] Name: IRENE LOPEZ Rep #:[id number] : 1975 46 From: Edd Greer PCP: Dr. Amanda Osborne MD Statu s:PRE [facility] Location: [facility] History of Present Illness Date of Service: [...] medical plan. This note was generated with [employer]Cloud[employer] software. It may contain incorrectwords, spelling, and punctuation that were not noted in checking the note beforesigning. 05/27/22 1407 <Electronically signed by Edd Alvarez MD> Cosigner Signature (if applicable): CC: ~ Signed [facility] Work Phone: [phone] Progress note Author Sarah Beth Maldonado [facility] May 26, 2022 10:12am Note Date/Time May 26, 2022 9:1 9am [facility] [address] [facility] [place] [address] Progress Note - Wound Care HBO 05/26/22 0917 MR#: [id number] Acct: [id number] Name: IRENE LOPEZ Rep #:[id number] : 1975 46 From: Sarah Beth elena NP SOCIAL SERVICES COUNSELOR-C PCP: Dr. Amanda Osborne MD Statu s:REG [...] medical plan. This note was generated with [employer] software. It may contain incorrectwords, spelling, and punctuation that were not noted in checking the note beforesigning. 05/26/22 1012 <Electronically signed by Sarah Beth Maldonado NP SOCIAL SERVICES COUNSELOR-C> Cosigner Signature (if applicable): CC: ~ Signed [facility] Work Phone: [phone] Progress note Author Rachel Beard [facility] May 23, 2022 3:57pm Note Date/Time May 19, 2022 11:2 4am [facility] [address] [place] [address] Progress Note - Wound Care 05/19/22 1123 MR#: [id number] Acct: [id number] Name: IRENE LOPEZ Rep #:[id number] : 1975 46 From: Rachel gibson NP SOCIAL SERVICES COUNSELOR-C PCP: Dr. Amanda Osborne MD Statu s:REG [...] 09:45 05/19/22 09:45 Charges/Coding Procedures Integumentary 111xxx-113xx: 67441 Global Visit Debridement Note Debridement Note Wound [...] Date Recorded By Document 05/19/22 08:38 DL [id number] 05/19/22 08:44 DL 05/19/22 08:38 - Today's Visit Information Type of service Follow-up Visit (Physician/MATERIALS BUYER ) Arrival Mode Ambulatory Transfer Assistance None [...] Date Recorded By Document 05/19/22 08:38 DL [id number] 05/19/22 08:44 DL 05/19/22 08:38 Wound Center Nurse 1 #2 L BREAST -Current Size (cm) - Length 9 -Current Size (cm) - Width 2 -Current Size (cm) - Depth 0.1 -Total Square Cm 18 -Exudate Amt Small -Exudate Type Serosanguineous -Wound Margin Distinct, Outline Attached -Granulation Amt Medium (34-66%) -Granulation Quality Malott -Slough/Fibrin Yes -Necrosis Amt Large (67-100%) -Necrotic [...] sooner if develop any concerns. ?? 05/23/22 2315 <Electronically signed by Rachel HAYNESC> Cosigner Signature (if applicable): CC: ~ Signed [facility] Work Phone: [phone] Castellon [facility] May 22, 2022 12:57pm Note Date/Time May 22, 2022 9:23 am [facility] [address] [place] [address] Progress Note - Wound Care HBO 05/22/22920 MR#: [id number] Acct: [id number] Name: IRENE LOPEZ Rep #:[id number] : [...] Date Recorded By Document 05/19/22 08:38 DL [id number] 05/19/22 08:44 DL 05/19/22 08:38 WC - Today's Visit Information Type of service Follow-up Visit (Physician/MATERIALS BUYER ) Arrival Mode Ambulatory Transfer Assistance None [...] Date Recorded By Document 05/19/22 08:38 DL [id number] 05/19/22 08:44 DL 05/19/22 08:38 Wound Center Nurse 1 #2 L BREAST -Current Size (cm) - Length 9 -Current Size (cm) - Width 2 -Current Size (cm) - Depth 0.1 -Total Square Cm 18 -Exudate Amt Small -Exudate Type Serosanguineous -Wound Margin Distinct, Outline Attached -Granulation Amt Medium (34-66%) -Granulation Quality Malott -Slough/Fibrin Yes -Necrosis Amt Large (67-100%) -Necrotic [...] Date Recorded By Document 05/19/22 08:50 FÉLIX [id number] 05/19/22 15:45 JF 05/19/22 08:50 Wound Center Nurse 2 #2 [...] Charges/Coding Wound Center CF Procedures HBO Supervision: 01154 Hyperbaric Oxygen; supervision Assessment/Plan Assessment/Plan (1) Other [...] medical plan. This note was generated with [employer] software. It may contain incorrectwords, spelling, and punctuation that were not noted in checking the note beforesigning. 05/22/22 1257 <Electronically signed by Robby Castellon MD> Cosigner Signature (if applicable): CC: ~ Signed [facility] Work Phone: [phone] Progress note Author Soco Tipton [facility] May 21, 2022 11:49am Note Date/Time May 21, 2022 11:4 9am [facility] [address] [place] [address] Progress Note - Wound Care HBO 05/21/22 1147 MR#: [id number] Acct: [id number] Name: IRENE LOPEZ Rep #:[id number] : 1975 46 From: Soco Tipton NP SOCIAL SERVICES COUNSELOR-C PCP: Dr. Amanda Osborne MD Statu s:REG [...] Start: 05/16/22 12:18 Freq: Status: Active Protocol: TASNEEMEXT Activity Type Activity Date Activity User E-sign Co-sign Detail Recorded Client Recorded Date Recorded By Document 05/19/22 08:38 DL [id number] 05/19/22 08:44 DL 05/19/22 08:38 - Today's Visit Information Type of service Follow-up Visit (Physician/MATERIALS BUYER ) Arrival Mode Ambulatory Transfer Assistance None [...] Date Recorded By Document 05/19/22 08:38 DL [id number] 05/19/22 08:44 DL 05/19/22 08:38 Wound Center Nurse 1 #2 L BREAST -Current Size (cm) - Length 9 -Current Size (cm) - Width 2 -Current Size (cm) - Depth 0.1 -Total Square Cm 18 -Exudate Amt Small -Exudate Type Serosanguineous -Wound Margin Distinct, Outline Attached -Granulation Amt Medium (34-66%) -Granulation Quality Malott -Slough/Fibrin Yes -Necrosis Amt Large (67-100%) -Necrotic [...] Date Recorded By Document 05/19/22 08:50 FÉLIX [id number] 05/19/22 15:45 FÉLIX 05/19/22 08:50 Wound Center [...] 1149 <Electronically signed by Soco Tipton NP SOCIAL SERVICES COUNSELOR-C> Cosigner Signature (if applicable): CC: ~ Signed [facility] Work Phone: [phone] Progress note Author Edd Alvarez [facility] May 20, 2022 2:11pm Note Date/Time May 20, 2022 2:05 pm [facility] [address] [place] [address] Progress Note - Wound Care HBO 05/20/22 1402 MR#: [id number] Acct: [id number] Name: IRENE LOPEZ Rep #:[id number] : [...] Date Recorded By Document 05/19/22 08:38 DL [id number] 05/19/22 08:44 DL 05/19/22 08:38 - Today's Visit Information Type of service Follow-up Visit (Physician/MATERIALS BUYER ) Arrival Mode Ambulatory Transfer Assistance None [...] Date Recorded By Document 05/19/22 08:38 DL [id number] 05/19/22 08:44 DL 05/19/22 08:38 Wound Center Nurse 1 #2 L BREAST -Current Size (cm) - Length 9 -Current Size (cm) - Width 2 -Current Size (cm) - Depth 0.1 -Total Square Cm 18 -Exudate Amt Small -Exudate Type Serosanguineous -Wound Margin Distinct, Outline Attached -Granulation Amt Medium (34-66%) -Granulation Quality Malott -Slough/Fibrin Yes -Necrosis Amt Large (67-100%) -Necrotic [...] Date Recorded By Document 05/19/22 08:50 FÉLIX [id number] 05/19/22 15:45 FÉLIX 05/19/22 08:50 Wound Center [...] Cosigner Signature (if applicable): CC: ~ Signed [facility] Work Phone: [phone] History and physical note Author Edd Alvarez [facility] May 13, 2022 3:32pm Note Date/Time May 13, 2022 3:32pm [facility] [address] [place] [address] H&P Exam - Wound Care 05/13/22 1525 MR#: [id number] Acct: [id number] Name: IRENE LOPEZ Rep #:[id number] : [...] ingrowth. Her incisions are dry and intact. [facility] Medical History Acquired absence of bilateral breasts [...] Date Recorded By Document 04/28/22 08:25 ML [id number] 04/28/22 08:30 ML Document 05/05/22 08:37 DL [id number] 05/05/22 08:40 DL Document 05/12/22 08:46 AK [id number] 05/12/22 08:48 AK 04/28/22 05/05/22 05/12/22 08:25 08:37 08:46 WC - Today's Visit Information Type of service Initial Visit Follow-up Visit Follow-up Visit (Physician/MATERIALS BUYER (Physician/MATERIALS BUYER ) ) Arrival Mode Ambulatory Ambulatory Ambulatory [...] Date Recorded By Document 04/28/22 08:25 ML [id number] 04/28/22 08:30 ML Document 05/05/22 08:37 DL [id number] 05/05/22 08:40 DL Document 05/12/22 08:46 AK [id number] 05/12/22 08:48 AK 04/28/22 05/05/22 05/12/22 08:25 [...] Recorded Date Recorded By Document 04/28/22 08:45 [id number] 04/28/22 08:47 Document 05/05/22 08:54 [id number] 05/05/22 09:06 Document 05/12/22 09:04 [id number] 05/12/22 09:07 Edit Result 05/12/22 09:04 (1) [id number] 05/12/22 09:09 (1) #2 L BREAST - [...] Tolerated Well -Offloading No -Debridement - Subq, 20sq cm Yes No Pain Scale: 0-10 Numeric Is Patient Pain Free? Yes Yes Yes - Nurse 3 - General Ulcer D/C NN Start: 04/28/22 08:19 Freq: Status: Active Protocol: Activity Type Activity Date Activity User E-sign Co-sign Detail Recorded Client Recorded Date Recorded By Document 05/05/22 09:16 [facility] [id number] 05/05/22 09:16 BMF Document 05/12/22 09:16 ML [id number] 05/12/22 09:17 ML 05/05/22 05/12/22 09:16 09:16 [...] Cosigner Signature (if applicable): CC: ~ Signed [facility] Work Phone: [phone] 196-576202-27-2023 Progress note Author Rachel Beard [facility] May 12, 2022 4:56pm Note Date/Time May 12, 2022 2:41pm [facility] [address] [place] [address] Progress Note - Wound Care 05/12/22 1440 MR#: [id number] Acct: [id number] Name: IRENE LOPEZ Rep #:[id number] : 1975 46 From: Rachel gibson SOCIAL SERVICES COUNSELOR SOCIAL SERVICES COUNSELOR-C PCP: Dr. Amanda Osborne MD Statu s:REG [...] Stain - Final Charges/Coding Procedures Integumentary 111xxx-113xx: 05928 Global Visit Debridement Note Debridement Note No debridement was completed: No debridement was completed today Post-Debridement Measurements and Additional Note: Post-Debridement Measurements/Treatment - Nurse 1 - General Ulcer Assessment Start: 04/28/22 08:19 Freq: Status: Active Protocol: ANGY.BESSY Activity Type Activity Date Activity User E-sign Co-sign Detail Recorded Client Recorded Date Recorded By Document 04/28/22 08:25 ML [id number] 04/28/22 08:30 ML Document 05/05/22 08:37 DL [id number] 05/05/22 08:40 DL Document 05/12/22 08:46 AK [id number] 05/12/22 08:48 AK 04/28/22 05/05/22 05/12/22 08:25 08:37 08:46 - Today's Visit Information Type of service Initial Visit Follow-up Visit Follow-up Visit (Physician/MATERIALS BUYER (Physician/MATERIALS BUYER ) ) Arrival Mode Ambulatory Ambulatory Ambulatory [...] Date Recorded By Document 04/28/22 08:25 ML [id number] 04/28/22 08:30 ML Document 05/05/22 08:37 DL [id number] 05/05/22 08:40 DL Document 05/12/22 08:46 AK [id number] 05/12/22 08:48 AK 04/28/22 05/05/22 05/12/22 08:25 [...] Recorded Date Recorded By Document 04/28/22 08:45 [id number] 04/28/22 08:47 JF Document 05/05/22 08:54 JF [id number] 05/05/22 09:06 JF Document 05/12/22 09:04 JF [id number] 05/12/22 09:07 JF Edit Result 05/12/22 09:04 JF (1) [id number] 05/12/22 09:09 JF (1) #2 L BREAST [...] Recorded Date Recorded By Document 05/05/22 09:16 [facility] [id number] 05/05/22 09:16 [facility] Document 05/12/22 09:16 ML [id number] 05/12/22 09:17 ML 05/05/22 05/12/22 09:16 09:16 [...] in sooner if develop any concerns. ?? 05/12/226 <Electronically signed by Rachel Beard NP, NP-C> Cosigner Signature (if applicable): CC: ~ Signed [facility] Work Phone: 1([phone]) [phone] NoteAccession #: [id number] Date of Procedure: 05/07/2022 Pathologist: [facility], Cytology Date Reported: 05/15/2022 Date Received: 05/07/2022 Submitting Physician: ZENAIDA SILVA MD Attending Physician: ZENAIDA SILVA MD FINAL CYTOLOGICAL INTERPRETATION A. THINPREP PAP VAGINAL: Specimen Adequacy: SATISFACTORY FOR EVALUATION. General Categorization: NEGATIVE FOR INTRAEPITHELIAL LESION OR MALIGNANCY. HIGH RISK HPV TEST RESULT: HPV GENOTYPE 16 NEGATIVE HPV GENOTYPE 18 NEGATIVE HPV GENOTYPE OTHER NEGATIVE Reference Range: Negative QC review performed at [facility], [address] [place] [address] Testing for high-risk (HR) type of human [...] patient?s Pap test results. Please refer to ASC current guidelines for the use of HPV DNA testing, result interpretation, and patient management. The performance of this test was verified by the Molecular Diagnostic Laboratory at [facility]. The lab is certified under the Clinical Laboratory Amendments of 1988 (CLIA 88) as qualified to perform high complexity clinical laboratory testing. This specimen has been analyzed by the [employer] ([employer] an automated imaging and review system, which assists the laboratory in evaluating cells on ThinPrep Pap tests. Following automated imaging, selected pierce from every slide were reviewed by a stake driver and/or pathologist. Electronically Signed Out By [facility], Cytology//IK/JMD By the signature on this report, the individual or group listed as making the Final Interpretation/Diagnosis certifies that they have reviewed this case. Diagnostic interpretation performed at [facility] [address] [place] [address] Educational Note: Cervical cytology is a screening [...] Source of Specimen A: THINPREP PAP VAGINAL [facility] Department of Pathology [id number] [place], [place] [address] CenterComment on above:Performed By: #### C #### [facility] Cytology [address] [place] [address] [id number] Progress note Author Rachel Beard [facility] May 06, 2022 11:19am Note Date/Time May 05, 2022 10:20am [facility] [address] [place] [address] Progress Note - Wound Care 05/05/22 1020 MR#: [id number] Acct: [id number] Name: IRENE LOPEZ Rep #:[id number] : 1975 46 From: Rachel Cabrera SOCIAL SERVICES COUNSELOR SOCIAL SERVICES COUNSELOR-C PCP: Dr. Amanda Osborne MD Statu s:REG [...] 08:37 05/05/22 08:37 Charges/Coding Procedures Integumentary 111xxx-113xx: 85663 Global Visit Physical Exam Const alert, oriented [...] Date Recorded By Document 04/28/22 08:25 ML [id number] 04/28/22 08:30 ML Document 05/05/22 08:37 DL [id number] 05/05/22 08:40 DL 04/28/22 05/05/22 08:25 08:37 - Today's Visit Information Type of service Initial Visit Follow-up Visit (Physician/MATERIALS BUYER ) Arrival Mode Ambulatory Ambulatory Transfer Assistance [...] Date Recorded By Document 04/28/22 08:25 ML [id number] 04/28/22 08:30 ML Document 05/05/22 08:37 DL [id number] 05/05/22 08:40 DL 04/28/22 05/05/22 08:25 08:37 [...] Date Recorded By Document 04/28/22 08:45 FÉLIX [id number] 04/28/22 08:47 JF Document 05/05/22 08:54 FÉLIX [id number] 05/05/22 09:06 FÉLIX 04/28/22 05/05/22 08:45 08:54 Wound Center Nurse [...] Recorded Date Recorded By Document 05/05/22 09:16 [facility] [id number] 05/05/22 09:16 [facility] 05/05/22 09:16 Wound Care Center Nurse [...] Continue to wear compression bra/surgical bra or AANI wraps. Continue antibiotic ointment to the nipple grafts daily. At discharge, her Hgb was 8.6.?Her recheck Hgb 11.5 on 04/23/22. ? Continue Iron supplementation. ? Once HBOT is approve will start her treatment. Follow up one week to see me. Call or come in sooner if develop any concerns. ?? 05/06/22 9325 <Electronically signed by Rachel Beard NP SOCIAL SERVICES COUNSELOR-C> Cosigner Signature (if applicable): CC: ~ Signed [facility] Work Phone: [phone]) [phone] Consult note Author Rachel Beard [facility] April 29, 2022 3:28pm Note Date/Time April 28, 2022 11:46am [facility] [address] [place] [address] Consultation - Wound Care HBO 04/28/22 1141 MR#: [id number] Acct: [id number] Name: IRENE LOPEZ Rep #:[id number] : 1975 46 From: Rachel Cabrera SOCIAL SERVICES COUNSELOR SOCIAL SERVICES COUNSELOR-C PCP: Dr. Amanda Osborne MD Statu s:REG [...] is note. Incisions are dry and intact. [facility] Medical History (Reviewed 04/29/22 @ 14:51 by Rachel Beard SOCIAL SERVICES COUNSELOR, SOCIAL SERVICES COUNSELOR-C) Acquired absence of bilateral breasts and nipples [...] Start: 04/28/22 08:19 Freq: Status: Active Protocol: ANGY.DARIANEXT Activity Type Activity Date Activity User E-sign Co-sign Detail Recorded Client Recorded Date Recorded By Document 04/28/22 08:25 ML [id number] 04/28/22 08:30 ML 04/28/22 08:25 WC - [...] Date Recorded By Document 04/28/22 08:25 ML [id number] 04/28/22 08:30 ML 04/28/22 08:25 Wound Center [...] Recorded Date Recorded By Document 04/28/22 08:45 [id number] 04/28/22 08:47 JF 04/28/22 08:45 Pain Scale: 0-10 Numeric Is Patient Pain Free? Yes Charges/Coding Procedures Integumentary 111xxx-113xx: 77987 Global Visit 04/29/22 1528 <Electronically signed by Rachel BYNUM> Cosigner Signature (if applicable): CC: ~ Signed [facility] Work Phone: [phone]) 278-134401-30-[address] Barrett [facility] April 14, 2022 11:30am Note Date/Time April 13, 2022 8 :43pm [facility] Medical Records Department [address] [place] [address] Progress Note - Surgery 04/13/222037 MR#: [id number] Acct: [id number] Name: IRENE LPOEZ Rep #:[id number] : 1975 46 From: Zenaida Greer PCP: Dr. Amanda Osborne MD Statu s:ADM ALEX Location: [facility]3 [id number] Subjective Subjective Postop #2 Patient having some [...] Total 3442 / 3442 1850 / 2110 1959 / 1959 Output Total 1650 / 2415 1612 / [...] Cosigner Signature (if applicable): CC: ~ Signed [facility] Work Phone: [phone]) 630-281401-29-[address] Barrett [facility] April 13, 2022 9:28pm Note Date/Time April 12, 2022 8 :25pm [facility] [facility] Medical Records Department [address] [place] [address] Progress Note - Surgery 04/12/222023 MR#: [id number] Acct: [id number] Name: IRENE LOPEZ Rep #:[id number] : 1975 46 From: Zenaida Greer PCP: Dr. Amanda Osborne MD Statu s:ADM ALEX Location: [place] [address] Subjective Subjective Postop #1 Patient has incisional [...] GFR (MDRD) Non-Af 87, BUN/Creatinine Ratio 13.3, Mikhsts217 H, Calcium 8.4 L, Prealbumin 18.4 L [...] Cosigner Signature (if applicable): CC: ~ Signed [facility] Work Phone: 1(802) 862-221601-28-2023 Procedure [facility] 04-11-2022 History and physical note Author Dr. Barrett [facility] April 10, 2022 10:29pm Note Date/Time April 10, 2022 1 0:24pm [facility] Medical Records Department [address] [place] [address] History & Physical Exam 04/10/222208 MR#: [id number] Acct: [id number] Name: IRENE LOPEZ Rep #:[id number] : 1975 46 From: Zenaida Greer PCP: Dr. Amanda Osborne MD Statu s:PRE [facility] Location: [facility] History and Physical Date of Admission: 04/11/22 HISTORY OF PRESENT ILLNESS 46 year old woman presents for evaluation of her breasts after having genetic testing done in 2019.? The testing was done because of a family history of breast cancer (Grandmother and Aunt).? The genes tested were DEISY, BRCA1, BRCA2, CDH1, CHEK2, PALB2, PTEN, and TP53.? The testing was done by [employer] She had a heterozygous DEISY mutation [...] Her last mammogram was in May,, in [place].? Patient states it was normal.? It showed very dense breast parenchyma bilaterally.? No obvious mass lesion.? Palpable nodule left breast 2 olock position in subcutaneous tissue such as sebaceous cyst.? Benign, no evidence malignancy.? We have received medical approval for her breast reconstruction surgery.? She has decided on proceeding with bilateral prophylactic mastectomy with prepectoral breast implant reconstruction possible placement saline tissue roller stainer and acellular dermal matrix graft.? Initially she [...] two stage placement of a saline tissue roller stainer (smooth) followed by removal of the roller stainer with replacement cohesive gel implant and placement [...] She would be flat if a tissue roller stainer was placed.? For a single stage procedure, [...] with the placement of a saline tissue roller stainer.? With the expansion, the nipple may elevate [...] proceed with placement of a saline tissue roller stainer.? This would expand the skin and breast pocket so a larger implant can be placed after the roller stainer is removed. She understands that she may or may not wake up with a breast mound.? If a saline tissue roller stainer is placed, then additional surgery would be necessary to replace the roller stainer with a cohesive gel implant.? The chance [...] implants or placement of a saline tissue roller stainer and subsequent tissue roller stainer removal with replacement cohesive gel implant.? It [...] carcinoma. Her last mammogram was done in [place] in May,.? It showed dense breast parenchyma [...] Barrett MD; Dr. Amanda Osborne MD~ Signed [facility] Work Phone: 1(777) 993-207201-01-2023 History of Present illness Narrative Presents for annual exam. She voices no complaints and is doing well. Denies any bowel or bladder problems. Denies any breast problems. Previous hysterectomy. She had bilateral mastectomy with reconstruction in March 2022.[address] Work Phone: 1(379) 159-324012-17-2022 History of Present illness Narrative* Here for [...] daily and will refer for EGD/GI evaluation. [facility] Work Phone: 1(603) 996-135112-17-2022 History of Present illness Narrative* Here for [...] daily and will refer for EGD/GI evaluation. [facility] Work Phone: 1(276) 203-483201-01-2022 History of Present illness Narrative* SUE Lopez - 03/16/2021 2:10 PM EST URGENT CARE eNCOUnter CHIEF COMPLAINT Sinus Congestion (FOR A WEEK) HPI Irene Lopez is a 45 y.o. female who presents today for Complaining of cough and sinus congestion for the past week. Patient states she has tried many zguo-dto-nsyskfd cold medications with little relief. Denies fever. [...] PCP. SUE Lopez 03/16/2021 [facility] Instructions* Patient Instructions* SUE Lopez - [...] Where can you learn more? Go to http://www.[email or web address]/patiented. Enter D279 in the search box to learn more about 'Cough: Care Instructions.' Interested in seeing a video go to [email or web address]/videolibrary to see all video content. Current as of: September 18, 2020 Content Version: 13.1 [employer]. Care instructions adapted under license by your healthcare professional. If you have questions about a medical condition or this instruction, always ask your healthcare professional. [employer] disclaims any warranty or liability for your [...] care for yourself at home? Take an kqbw-gyr-gaapqll pain medicine, such as acetaminophen (Tylenol), ibuprofen (Advil, Motrin),or naproxen (Aleve). Read and follow all instructions on the label. If the doctor prescribed antibiotics, take them as directed. Do not stop taking them just because you feel better. You need to take the full course of antibiotics. Be careful when taking hkfz-bhx-btcnmau cold or flu medicines and Tylenol at [...] Where can you learn more? Go to http://www.[employer]xnermedical.osu.edu/patiented. Enter I933 in the search box to learn more about 'Sinusitis: Care Instructions.' Interested in seeing a video go to [email or web address]/videolibrary to see all video content. Current as of: November 21, 2020 Content Version: 13.1 [employer]. Care instructions adapted under license by your healthcare professional. If you have questions about a medical condition or this instruction, always ask your healthcare professional. [employer] disclaims any warranty or liability for your use of this information. documented in this [facility]02-01-2019 History of Present illness Narrative* Irene Lopez is a pleasant 45- yo female self-referred to the [facility] for surgical consultation for risk reducing bilateral [...] Maternal half-niece with cervical cancer at 19-20. [facility] [address] Work Phone: [phone]) 191-629902-01-2019 History of Present illness Narrative* Irene Lopez is a pleasant 45- yo female self-referred to the [facility] for surgical consultation for risk reducing bilateral [...] Maternal half-niece with cervical cancer at 19-20. [facility] Work Phone: 1([phone] 165-223710-22-2017 History of Present illness NarrativeIs thatPatient is [...] sent to pathology to rule out malignancy [address] Work Phone: chilb complaint Narrative - ReportedPatient is here for colp procedure. Vaginal pap showed LGSIL. Patient had OSCAR due to uterine fibroids.[address] Work Phone: consult note Author Bro Son [facility] January 23, 2023 3:34pm Note Date/Time January 23, 2023 3:34pm [facility] Medical Records Department [address] [place] [address] Counseling Note - Pharmacy 01/23/23 1532 MR#: [id number] Acct: [id number] Name: IRENE LOPEZ Rep #:[id number] : 1975 47 From: Bro Son PCP: Dr. Amanda Osborne MD Statu s:ADM ALEX Y Location: [place] [address] Pharmacy [facility] has performed discharge medication [...] was counselled on new medications by pharmacy informatics manager Bj. Medications at Discharge Home Medications ibuprofen [...] PRN PRN constipation 30 days #30 caps 11/10/23 levofloxacin 500 mg tablet 500 mg PO [...] Signature (if applicable): Date CC: ~ Signed [facility] Work Phone: Discharge summary Author Rachel Beard [facility] April 14, 2022 4:54pm Note Date/Time April 14, 2022 4 :40pm [facility] Medical Records Department [address] [place] [address] Instructions for Home/Discharge Instructions 04/14/22 1636 MR#: [id number] Acct: [id number] Name: IRENE LOPEZ Cynthia Rep #:[id number] : 1975 46 From: Rachel Cabrera SOCIAL SERVICES COUNSELOR SOCIAL SERVICES COUNSELOR-C PCP: Dr. Amanda Osborne MD Statu s:ADM [...] MD When: Thursday04/15/22 at 4:00 pm at [facility] [phone]. Test Results: Test results from this visit [...] can be placed): Home, Self Care 04/14/22 0150<Electronically signed by Rachel Beard SOCIAL SERVICES COUNSELOR SOCIAL SERVICES COUNSELOR-C>Rachel Beard NP SOCIAL SERVICES COUNSELOR-C CC: Dr. Amanda Osborne MD ~ Signed [facility] Work Phone: Evaluation note* Diagnosis Congestion of nasal sinus- Primary Other diseases of nasal cavity and sinuses Acute maxillary sinusitis, recurrence not specified Cough [facility] Diagnosis Onset Date Resolution Status Acquired [...] hronic Ptosis of both breasts chron ic [facility] Work Phone: Evaluation note* Diagnosis Onset Date [...] 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 [facility] Work Phone: Evaluation note* Diagnosis Onset Date [...] 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 [facility] Work Phone: Evaluation note* Diagnosis Onset Date [...] epidermidis infection acute Nonhealing surgical wound ac [place] Other complications of skin graft (allograft) (autograft) [...] epidermidis infection acute Nonhealing surgical wound ac [place] Other complications of skin graft (allograft) (autograft) [...] epidermidis infection acute Nonhealing surgical wound ac [place] Other complications of skin graft (allograft) (autograft) [...] breast implants acute Nonhealing surgical wound ac [place] Other complications of skin graft (allograft) (autograft) [...] epidermidis infection acute Nonhealing surgical wound ac [place] Other complications of skin graft (allograft) (autograft) acute Status post bilateral breast reconstruction acute Status post bilateral mastectomy acute Cancer phobia chronic Family history of breast cancer chronic Former smoker chronic 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 removal c hronic Ptosis of both breasts chron ic [facility] Work Phone: Evaluation note* Diagnosis Onset Date [...] epidermidis infection acute Nonhealing surgical wound ac [place] Other complications of skin graft (allograft) (autograft) [...] epidermidis infection acute Nonhealing surgical wound ac [place] Other complications of skin graft (allograft) (autograft) [...] epidermidis infection acute Nonhealing surgical wound ac [place] Other complications of skin graft (allograft) (autograft) [...] breast implants acute Nonhealing surgical wound ac [place] Other complications of skin graft (allograft) (autograft) [...] epidermidis infection acute Nonhealing surgical wound ac [place] Other complications of skin graft (allograft) (autograft) [...] epidermidis infection acute Nonhealing surgical wound ac [place] Other complications of skin graft (allograft) (autograft) acute Status post bilateral mastectomy acute Cancer phobia chronic Family history of breast cancer chronic Former smoker chronic 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 [facility] Work Phone: Evaluation note* Diagnosis Onset Date Resolution Status 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 Disproportion of reconstructed breast acute Exposed breast implant acute History of bilateral breast implants acute Infection of breast implant acute 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 Nonhealing surgical wound ac [place] Other complications of skin graft (allograft) (autograft) [...] epidermidis infection acute Nonhealing surgical wound ac [place] Other complications of skin graft (allograft) (autograft) [...] epidermidis infection acute Nonhealing surgical wound ac [place] Other complications of skin graft (allograft) (autograft) [...] epidermidis infection acute Nonhealing surgical wound ac [place] Other complications of skin graft (allograft) (autograft) [...] post implant removal from both breasts chronic [facility] Work Phone: Evaluation note* Diagnosis Onset Date Resolution Status 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 Disproportion of reconstructed breast acute Exposed breast implant acute Fungal skin infection acute History of bilateral breast implants acute History of reconstruction of both breasts acute Infection of breast implant acute 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 Nonhealing surgical wound ac [place] Other complications of skin graft (allograft) (autograft) [...] epidermidis infection acute Nonhealing surgical wound ac [place] Other complications of skin graft (allograft) (autograft) [...] post implant removal from both breasts chronic [facility] Work Phone: Evaluation note* Diagnosis Onset Date [...] Resistance to other single specified antibiotic chronic [facility] Work Phone: Evaluation note* Diagnosis Vaginal Pap smear Special screening for malignant neoplasms, vagina Vaginal Pap smear with LGSIL Papanicolaou smear of vagina with low grade squamous intraepithelial lesion (LGSIL) documented in this encounter [facility] Work Phone: Evaluation note* Diagnosis Left leg swelling- Primary Esophagitis, unspecified without bleeding Herpes Herpes simplex without mention of complication Migraine without status migrainosus, not intractable, unspecified migraine type documented in this encounter [facility] Work Phone: Evaluation note* Diagnosis Cutaneous abscess of left axilla- Primary documented in this encounter [facility] Work Phone: Evaluation note* Diagnosis History of prophylactic mastectomy of both breasts- Primary Preop examination Unspecified pre-operative examination Migraine without status migrainosus, not intractable, unspecified migraine type Gastroesophageal reflux disease without esophagitis Esophageal reflux Herpes Herpes simplex without mention of complication documented in this encounter [facility] Work Phone: Evaluation note* Diagnosis Vaginal Pap smear Special screening for malignant neoplasms, vagina Encounter for gynecological examination without abnormal finding documented in this encounter [facility] Work Phone: Evaluation note* Diagnosis Preop examination- Primary Unspecified pre-operative examination Gastroesophageal reflux disease, unspecified whether esophagitis present Migraine without status migrainosus, not intractable, unspecified migraine type Herpes Herpes simplex without mention of complication History of prophylactic mastectomy of both breasts documented in this encounter [facility] Work Phone: Evaluation note* Diagnosis Obesity (BMI 30-39.9)- Primary documented in this encounter [facility] Work Phone: History of Present illness NarrativeHere for routine f/u migraines. She states that she is doing well, no specific concerns at this time.[facility] Work Phone: History of Present illness NarrativePatient presents for colposcopy due to mild dysplasia noted on recent Pap smear. Patient had previous hysterectomy.[address] Work Phone: Hospital Discharge instructions Additional Instructions [facility]?: [facility] Work Phone: Reason for referral (narrative)No reason for referral information availableWSt. Elizabeth Hospital Work Phone: Summary Purpose Family History [...] female breast: Paternal Grandmother, Paternal Aunt Comments:Aunt m2Uybrpuw of o nset age; Status:Active Aneurysm: Uncle [...] female breast: Paternal Grandmother, Paternal Aunt Comments:Aunt a5Qtpaqwn of o nset age; Status:Active Unknown Family Member Name Dates Details Family history of migraine h eadaches: Mother, Sister, Grandparent(V17.2, Z82.0) Status:Active Family history of diabetes m ellitus: Father(V18.0, Z83.3) Comments:Diabetes Mellitus T ype 2; Status:Active Family history of hypertensi on: Father(V17.49, Z82.49) Status:Active Aneurysm: Uncle Status:Active Primary malignant neoplasm o f female breast: Paternal Grandmother, Paternal Aunt Comments:Aunt z9Esguxax of o nset age; Status:Active Unknown Family Member Name Dates Details Family history of migraine h eadaches: Mother, Sister, Grandparent(V17.2, Z82.0) Status:Active Family history of diabetes m ellitus: Father(V18.0, Z83.3) Comments:Diabetes Mellitus T ype 2; Status:Active Family history of hypertensi on: Father(V17.49, Z82.49) Status:Active Aneurysm: Uncle Status:Active Primary malignant neoplasm o f female breast: Paternal Grandmother, Paternal Aunt Comments:Aunt w9Fnzisqc of o nset age; Status:Active Unknown Family Member Name Dates Details Family history of migraine h eadaches: Mother, Sister, Grandparent(V17.2, Z82.0) Status:Active Family history of diabetes m ellitus: Father(V18.0, Z83.3) Comments:Diabetes Mellitus T ype 2; Status:Active Family history of hypertensi on: Father(V17.49, Z82.49) Status:Active Aneurysm: Uncle Status:Active Primary malignant neoplasm o f female breast: Paternal Grandmother, Paternal Aunt Comments:Aunt q0Dwkxlwf of o nset age; Status:Active Unknown Family Member Name Dates Details Family history of migraine h eadaches: Mother, Sister, Grandparent(V17.2, Z82.0) Status:Active Family history of diabetes m ellitus: Father(V18.0, Z83.3) Comments:Diabetes Mellitus T ype 2; Status:Active Family history of hypertensi on: Father(V17.49, Z82.49) Status:Active Aneurysm: Uncle Status:Active Primary malignant neoplasm o f female breast: Paternal Grandmother, Paternal Aunt Comments:Aunt s3Ilfkjtb of o nset age; Status:Active Unknown Family Member Name Dates Details Family history of migraine h eadaches: Mother, Sister, Grandparent(V17.2, Z82.0) Status:Active Family history of diabetes m ellitus: Father(V18.0, Z83.3) Comments:Diabetes Mellitus T ype 2; Status:Active Family history of hypertensi on: Father(V17.49, Z82.49) Status:Active Aneurysm: Uncle Status:Active Primary malignant neoplasm o f female breast: Paternal Grandmother, Paternal Aunt Comments:Aunt h9Upknlmv of o nset age; Status:Active Unknown Family Member Name Dates Details Family history of diabetes m ellitus: Father(V18.0, Z83.3) Comments:Diabetes Mellitus T ype 2; Status:Active Family history of migraine h eadaches: Mother, Sister, Grandparent(V17.2, Z82.0) Status:Active Family history of hypertensi on: Father(V17.49, Z82.49) Status:Active Aneurysm: Uncle Status:Active Primary malignant neoplasm o f female breast: Paternal Grandmother, Paternal Aunt Comments:Aunt m2Mubxwfy of o nset age; Status:Active Unknown Family Member Name Dates Details Family history of diabetes m ellitus: Father(V18.0, Z83.3) Comments:Diabetes Mellitus T ype 2; Status:Active Family history of migraine h eadaches: Mother, Sister, Grandparent(V17.2, Z82.0) Status:Active Family history of hypertensi on: Father(V17.49, Z82.49) Status:Active Aneurysm: Uncle Status:Active Primary malignant neoplasm o f female breast: Paternal Grandmother, Paternal Aunt Comments:Aunt k0Gqstxak of o nset age; Status:Active Unknown Family Member Name Dates Details Family history of diabetes m ellitus: Father(V18.0, Z83.3) Comments:Diabetes Mellitus T ype 2; Status:Active Family history of migraine h eadaches: Mother, Sister, Grandparent(V17.2, Z82.0) Status:Active Family history of hypertensi on: Father(V17.49, Z82.49) Status:Active Aneurysm: Uncle Status:Active Primary malignant neoplasm o f female breast: Paternal Grandmother, Paternal Aunt Comments:Aunt y3Gsksohq of o nset age; Status:Active Relationship Condition [...] female breast: Paternal Grandmother, Paternal Aunt Comments:Aunt y3Giboewa of o nset age; Status:Active Unknown Family Member Name Dates Details Family history of migraine h eadaches: Mother, Sister, Grandparent(V17.2, Z82.0) Status:Active Family history of diabetes m ellitus: Father(V18.0, Z83.3) Comments:Diabetes Mellitus T ype 2; Status:Active Family history of hypertensi on: Father(V17.49, Z82.49) Status:Active Aneurysm: Uncle Status:Active Primary malignant neoplasm o f female breast: Paternal Grandmother, Paternal Aunt Comments:Aunt k5Tdzmlfv of o nset age; Status:Active Advance Directives No Advanced Directives Records Found Advance Directive Response Recorded Date/ Time Living Will No March 28 9:12am Power of Packing Line Worker No March 28, 2022 9:12am Advance Directive Response Recorded Date/ Time Living Will No May 30, 2022 4:49pm Power of Packing Line Worker No May 30 4:49pm Advance Directive Response Recorded Date/ Time Living Will No June 10, 2022 2:59pm Power of Packing Line Worker No June 10 2:59pm Advance Directive Response Recorded Date/ Time Living Will No October 03, 2022 3:13pm Power of Packing Line Worker No October 03 3:13pm Advance Directive Response Recorded Date/ Time Living Will No January 21 6:24pm Power of Packing Line Worker No January 21, 2023 6:24pm Advance Directive Response Recorded Date/ Time Living Will No March 31 9:33pm Do you have a Healthcare Power of Packing Line Worker? No March 31, 2024 9:33pm Advance Directive Response Recorded Date/ Time Do you have a Healthcare Power of Packing Line Worker? No August 03, 2024 3:06pm Chief Complaint Med refillsPatient presents today stating she has a boil in her groin area that will pop and then come back. Patient would like to discuss how to get rid of this boil. lmp hysterSelf referred for discussion of risk reducing bilateral mastectomiesSelf referred for discussion of risk reducing bilateral mastectomies ckup, ER f/u, [facility] 03/01/22, states infection to throat, but was not told what kind of infection, states today she has nasal congestion, yellow drainage, cough, x2 teeth extracted 01/29/22.ckup, ER f/u, [facility] 03/01/22, states infection to throat, [...] prior to sx BILATERAL BREAST RECONSTRUCTION TISSUE FUEL OIL CLERK Reason for Visit Acquired absence of bilateral [...] prior to sx BILATERAL BREAST RECONSTRUCTION TISSUE FUEL OIL CLERK BILATERAL BREAST RECONSTRUCTION TISSUE FUEL OIL CLERK BILATERAL BREAST RECONSTRUCTION TISSUE FUEL OIL CLERK 1st post op Post Op Post Op [...] Chief Complaint BILATERAL BREAST REC ONSTRUCTION TISSUE FUEL OIL CLERK BILATERAL BREAST RECONSTRUCTION TISSUE FUEL OIL CLERK BILATERAL BREAST RECONSTRUCTION TISSUE FUEL OIL CLERK 1st post op Post Op Post Op [...] 8:19am Fat necrosis (segmental) of breast Febru tiana2024 1:30pm Fat necrosis (segmental) of breast 2024 [...] 2024 1:30pm Fat necrosis (segmental) of breast [facility]2024 3:22pm History of reconstruction of both breast [...] 3:22pm Status post implant removal from both [facility] May 10, 2024 3:22pm History of reconstruction [...] Date Fat necrosis (segmental) of breast 2024 8:19am Seroma May 03, 2024 8:19am Fat necrosis (segmental) of breast 2024 1:30pm Fat necrosis (segmental) of breast 2024 3:22pm History of reconstruction of both breast s May 10, 2024 3:22pm Seroma May 10, 2024 3:22pm History of prophylactic mastectomy of nguyen th breasts May 10, 2024 3:22pm Status post implant removal from both [facility] May 10, 2024 3:22pm History of reconstruction [...] 3:22pm Status post implant removal from both [facility] May 10, 2024 3:22pm History of reconstruction [...] 3:26pm Diastasis of rectus abdominis October 8:18am Chief Complaint Admit Date 3 W FU July 28, 2024 2:59p [...] diastases recti- COMBO W/ RS October 8:18am RULE OUT UMIBILICAL HERNIA November 6:32am 1 M FU November 21, 2024 3:24pm Reason for Visit Admit Date Status post [...] Venous Duplex Left Amanda Osborne MD [address] [facility] [place] [place] [address] Referral ID Status Reason Start Date Expiration Date Visits Requested Visits Authorized [id number] Pending Review Perform Procedure 04/17/2023 04/16/2024 1 1 Additional Source Comments INFORMATION SOURCE (unrecogn ized section and content) DATE CREATED AUTHOR 09/04/2017 [facility] DATE CREATED AUTHOR AUTHOR'S ORGANIZ ATION 03/24/2018 [facility] DATE CREATED AUTHOR AUTHOR'S ORGANIZ ATION 12/15/2018 [facility] DATE CREATED AUTHOR AUTHOR'S ORGANIZ ATION 03/11/2022 [facility] DATE CREATED AUTHOR AUTHOR'S ORGANIZ ATION 03/15/2022 [facility] DATE CREATED AUTHOR AUTHOR'S ORGANIZ ATION 05/08/2022 [facility] DATE CREATED AUTHOR AUTHOR'S ORGANIZ ATION 11/05/2022 [facility] DATE CREATED AUTHOR AUTHOR'S ORGANIZ ATION 08/06/2023 [facility] DATE CREATED AUTHOR AUTHOR'S ORGANIZ ATION 03/27/2024 [facility] DATE CREATED AUTHOR AUTHOR'S ORGANIZ ATION 11/08/2024 [facility] DATE CREATED AUTHOR AUTHOR'S ORGANIZ ATION 11/22/2024 [facility] Reason for Visit (unrecogniz ed section [...] Care Teams (unrecognized sec tion and content) Application Packager Relationship Specialty Start Date End Date Amanda Osborne MD [address] [place] [address] PCP - General Family Medicine 03/16/21 Team [...] Provider, Re ferring Provider Active Rachel Beard SOCIAL SERVICES COUNSELOR, SOCIAL SERVICES COUNSELOR-C Attending Provider Active Team Status: Active Member Role Status Dates Dr. Amanda Osborne MD Primary Care Provider Act rodolfo Rachelcesar Beard SOCIAL SERVICES COUNSELOR, SOCIAL SERVICES COUNSELOR-C Attending Pro vider, Referring Provider, Other Provider Active Team Status: Active Member Role Status Dates Dr. Amanda Osborne MD Primary Care Provider Act rodolfo Dr. Dustin Shore MD Attending Provider Active Rachel Beard SOCIAL SERVICES COUNSELOR, SOCIAL SERVICES COUNSELOR-C Referring Provider Active Team Status: Inactive Member Role Status Dates Dr. Amanda Osborne MD Primary Care Provider Act rodolfo Dr. Zenaida Barrett MD Attending Provider, Referring P rovider Active Team Status: Active Member Role Status Dates Dr. Amanda Osborne MD Primary Care Provider Act rodolfo Rachelcesar Beard SOCIAL SERVICES COUNSELOR, SOCIAL SERVICES COUNSELOR-C Attending Provider, Referri ng Provider Active Team Status: Inactive Member Role Status Dates Dr. Amanda Osborne MD Primary Care Provider Act rodolfo Rachelcesar Beard SOCIAL SERVICES COUNSELOR, SOCIAL SERVICES COUNSELOR-C Attending Provider, Referri ng Provider Active Team Status: Active Member Role Status Dates Dr. Amanda Osborne MD Primary Care Provider Act rodolfo Rachelrachel Beard SOCIAL SERVICES COUNSELOR, SOCIAL SERVICES COUNSELOR-C Referring Provider, Other P rovider Active Dr. Robby Castellon MD Attending Provider Active Team Status: Active Member Role Status Dates Dr. Amanda Osborne MD Primary Care Provider Act rodolfo Rachel Beard SOCIAL SERVICES COUNSELOR, SOCIAL SERVICES COUNSELOR-C Referring Provider, Other P rovider Active Sarah Beth Maldonado SOCIAL SERVICES COUNSELOR, SOCIAL SERVICES COUNSELOR-C Attending Provider Active Team Status: Active Member Role Status Dates Dr. Amanda Osborne MD Primary Care Provider Act rodolfo Dr. Zenaida Barrett MD Attending Provide r, Referring Provider, Other Provider Active Team Status: Active Member Role Status Dates Dr. Amanda Osborne MD Primary Care Provider Act rodolfo Rachelcesar Beard SOCIAL SERVICES COUNSELOR, SOCIAL SERVICES COUNSELOR-C Referring Provider, Other P rovider Active Soco T[place] SOCIAL SERVICES COUNSELOR, SOCIAL SERVICES COUNSELOR-C Attending Provider Active Team Status: Inactive Member [...] Primary Care Provider Act rodolfo Rachelcesar Beard SOCIAL SERVICES COUNSELOR, SOCIAL SERVICES COUNSELOR-C Attending Provider Active Team Status: Active Member Role Status Dates Dr. Amanda Osborne MD Primary Care Provider Act rodolfo Dr. Zenaida Barrett MD Admit Provider, R eferring Provider, Other Provider Active Rachel Beard SOCIAL SERVICES COUNSELOR, SOCIAL SERVICES COUNSELOR-C Attending Provider Active Application Packager Relationship Specialty Start Date End Date Amanda Osborne MD [facility] [place] [address] PCP - General 12/14/18 Amanda Osborne MD [address] [place] [address] PCP - [facility] PCP 05/14/22 Application Packager Relationship Specialty Start Date End Date Amanda Osborne MD [address] [facility] [place] [address] PCP - General 12/14/18 Amanda Osborne MD [address] [facility] [place] [address] PCP - [facility] PCP 05/14/22 Application Packager Relationship Specialty Start Date End Date Amanda Osborne MD [address] [place] [id number] PCP - General 12/14/18 Amanda Osborne MD [address] [place] [id number] PCP - [facility] PCP 05/14/22 Application Packager Relationship Specialty Start Date End Date Amanda Osborne MD [address] [place] [id number] PCP - General 12/14/18 Amanda Osborne MD [address] [address] PCP - [facility] PCP 05/14/22 Application Packager Relationship Specialty Start Date End Date Amanda Osborne MD [address] [address] PCP - General 12/14/18 Amanda Osborne MD [address] [place] [id number] PCP - [facility] PCP 05/14/22 Application Packager Relationship Specialty Start Date End Date Amanda Osborne MD [address] [address] PCP - General 12/14/18 Amanda Osborne MD [address] [address] PCP - [facility] PCP 05/14/22 Team Status: Inactive Member [...] Amanda Osborne MD Primary Care Provider Act roodlfo Start: March 31, 2024 Dr. Marlon Allen [...] 2024 End: April 11, 2024 Rachel Beard SOCIAL SERVICES COUNSELOR, SOCIAL SERVICES COUNSELOR-C Attending Provider Active Start: April 11, 2024 End: April 11, 2024 Team Status: Inactive Member Role Status Dates Dr. Amanda Osborne MD Primary Care Provider Act rodolfo Start: April 19, 2024 End: April 19, 2024 Dr. Amanda Osborne MD Referring Provider Active Start: April 19, 2024 End: April 19, 2024 Rachel Beard SOCIAL SERVICES COUNSELOR, SOCIAL SERVICES COUNSELOR-C Attending Provider Active Start: April 19, 2024 End: April 19, 2024 Team Status: Inactive Member Role Status Dates Dr. Amanda Osborne MD Primary Care Provider Act rodolfo Start: April 26, 2024 End: April 26, 2024 Dr. Amanda Osborne MD Referring Provider Active Start: April 26, 2024 End: April 26, 2024 Rachel Beard SOCIAL SERVICES COUNSELOR, SOCIAL SERVICES COUNSELOR-C Attending Provider Active Start: April 26, 2024 [...] 06, 2024 End: May 06, 2024 Dr. Malron Allen MD Attending Provider Active Start: May 06, 2024 End: May 06, 2024 Team Status: Inactive Member Role Status Dates Dr. Amanda Osborne MD Primary Care Provider Act rodolfo Start: May 10, 2024 End: May 10, 2024 Dr. Amanda Osborne MD Referring Provider Active Start: May 10, 2024 End: May 10, 2024 Rachel Beard SOCIAL SERVICES COUNSELOR, SOCIAL SERVICES COUNSELOR-C Attending Provider Active Start: May 10, 2024 End: May 10, 2024 Team Status: Active Member Role Status Dates Dr. Amanda Osborne MD Primary Care Provider Act rodolfo Start: May 16, 2024 Dr. Marlon Allen MD Attending Provider Active Start: May 16, 2024 Dr. Marlon Allen MD Other Provider Active Star t: May 16, 2024 Rachelcesar Beard SOCIAL SERVICES COUNSELOR, SOCIAL SERVICES COUNSELOR-C Referring Provider Active Start: May 16, 2024 Team Status: Active Member Role Status Dates Dr. Amanda Osborne MD Primary Care Provider Act rodolfo Start: May 23, 2024 Dr. Marlon Allen MD Attending Provider Active Start: May 23, 2024 Dr. Marlon Allen MD Other Provider Active Star t: May 23, 2024 Rachel Beard SOCIAL SERVICES COUNSELOR, SOCIAL SERVICES COUNSELOR-C Referring Provider Active Start: May 23, 2024 Team Status: Active Member Role Status Dates Dr. Amanda Osborne MD Primary Care Provider Act rodolfo Start: June 06, 2024 Dr. Marlon Allen MD Attending Provider Active Start: June 06, 2024 Dr. Marlon Allen MD Other Provider Active Star t: June 06, 2024 Rachelcesar Beard SOCIAL SERVICES COUNSELOR, SOCIAL SERVICES COUNSELOR-C Referring Provider Active Start: June 06, 2024 Team Status: Inactive Member Role Status Dates Dr. Amanda Osborne MD Primary Care Provider Act rodolfo Start: June 06, 2024 End: June 13, 2024 Dr. Marlon Allen MD Attending Provider Active Start: June 06, 2024 End: June 13, 2024 Rachel Beard SOCIAL SERVICES COUNSELOR, SOCIAL SERVICES COUNSELOR-C Referring Provider Active Start: June 06, 2024 End: June 13, 2024 Team Status: Inactive Member Role Status Dates Dr. Amanda Osborne MD Primary Care Provider Act rodolfo Start: June 20, 2024 End: July 13, 2024 Dr. Marlon Allen MD Attending Provider Active Start: June 20, 2024 End: July 13, 2024 Rachel Beard SOCIAL SERVICES COUNSELOR, SOCIAL SERVICES COUNSELOR-C Referring Provider Active Start: June 20, 2024 End: July 13, 2024 Team Status: Active Member Role Status Dates Dr. Amanda Osborne MD Primary Care Provider Act rodolfo Start: June 20, 2024 Dr. Marlon Allen MD Attending Provider Active Start: June 20, 2024 Dr. Marlon Allen MD Other Provider Active Star t: June 20, 2024 Rachel Beard SOCIAL SERVICES COUNSELOR, SOCIAL SERVICES COUNSELOR-C Referring Provider Active Start: June 20, 2024 [...] 2024 End: July 13, 2024 Rachel Beard SOCIAL SERVICES COUNSELOR, SOCIAL SERVICES COUNSELOR-C Referring Provider Active Start: June 20, 2024 End: July 13, 2024 Team Status: Active Member Role/Relationship Status Dates Dr. Amanda Osborne MD Primary Care Provider Act rodolfo Start: June 20, 2024 Dr. Marlon Allen MD Attending Provider Active Start: June 20, 2024 Dr. Marlon Allen MD Other Provider Active Star t: June 20, 2024 Rachel Beard SOCIAL SERVICES COUNSELOR, SOCIAL SERVICES COUNSELOR-C Referring Provider Active Start: June 20, 2024 [...] Inactive Member Role/Relationship Status Dates Dr. Amanda Obsorne MD Primary Care Provider Act rodolfo Start: [...] Act rodolfo Start: August 17, 2024 Dr. Marlno Allen MD Attending Provider Active Start: August [...] November 03, 2024 End: November 03, 2024 Application Packager Relationship Specialty Start Date End Date Amanda Osborne MD [address] [address] PCP - General 12/14/18 Amanda Osborne MD [address] [address] PCP - [facility] PCP 05/14/22 Team Status: Inactive Member Role/Relationship Status Dates Dr. Amanda Osborne MD Primary Care Provider Act rodolfo Start: July 28, 2024 End: July 28, 2024 Dr. Amanda Osborne MD Referring Provider Active Start: July 28, 2024 End: July 28, 2024 Dr. Marlon Allen MD Attending Provider Active Start: July 28, 2024 End: July 28, 2024 Team Status: Inactive Member Role/Relationship Status Dates Dr. Amanda Obsorne MD Primary Care Provider Act rodolfo Start: [...] November 03, 2024 End: November 03, 2024 Team Status: Active Member Role/Relationship Status Dates Dr. Marlon Allen MD Attending Provider Active Start: November 21, 2024 Dr. Marlon Allen MD Referring Provider Active Start: November 21, 2024 RAZA SHEPARD Primary Care Provider Active Sta rt: November 21, 2024 Team Status: Inactive Member Role/Relationship Status Dates Dr. Amanda Osborne MD Primary Care Provider Act rodolfo Start: November 21, 2024 End: November 21, 2024 Dr. Amanda Osborne MD Referring Provider Active Start: November 21, 2024 End: November 21, 2024 Dr. Marlon Allen MD Attending Provider Active Start: November 21, 2024 End: November 21, 2024 <item><item> Privacy Markings (unrecogniz ed section [...] BE BASED ON THE PRIMARY CLINICAL RECORDS. [facility]. provides no warranty or guarantee of the accuracy or completeness of information in this document.
[2024-11-23] MEDS: Lactated Ringers 1,000 ML 15 ML IV (06:26)
--- NOTE | 2024-11-23 06:49 | PCM.PRE.AN2 ---
ASA Classification* ASA Classification ASA Classification: 2 Assessment & Plan Anesthesia* Anesthesia Assessment Anesthesia Assessment: Discussed sedation and/or anesthesia options, risks, benefits, and alternatives with patient/parents/legal guardian/POA. Questions invited. The patient/parents/legal guardian/POA seems to understand and agrees to proceed with anesthesia plan. Reviewed the physical assessment, medical history, allergy history and patient home medications list prior to surgery/procedure/anesthetic and documented any changes. Performed airway and anesthesia risk assessments. Anesthesia Type Anesthesia Type: General History Source History Obtained from:: Patient and Chart Anesthesia Focused Assessment* Temperature: 98 F Pulse Rate: 70 Blood Pressure: 133/67 Respiratory Rate: 16 Pulse Ox: 94 Oxygen Delivery Method: Room Air Airway Assessment Mouth opens: >3 cm Mallampati Score: II Teeth Condition: Intact Neck Range of motion (ROM): Full ROM Labs Anesthesia Preop lab: CBC WBC 13.0 K/mm3 (4.4-11.0) H 04/01/24 04:20 04/01/24 RBC 3.46 M/mm3 (4.2-5.4) L 04/01/24 04:20 04/01/24 Hgb 11.2 g/dL (12.0-15.0) L 04/01/24 04:20 04/01/24 Hct 33.8 % (37-47) L 04/01/24 04:20 04/01/24 Plt Count 188 K/mm3 (150-450) 04/01/24 04:20 04/01/24 CHEMISTRY Potassium 4.2 mmol/L (3.5-5.1) 04/01/24 04:20 04/01/24 Sodium 138 mmol/L (136-145) 04/01/24 04:20 04/01/24 Magnesium 2.2 mg/dL (1.6-2.6) 03/31/24 05:55 03/31/24 BUN 9 mg/dL (7-18) 04/01/24 04:20 04/01/24 Creatinine 0.74 mg/dL (0.55-1.02) 04/01/24 04:20 04/01/24 Glucose 130 mg/dL (74-106) H 04/01/24 04:20 04/01/24 POC Glucose 109 mg/dL (74-106) H 03/31/24 06:09 03/31/24 COAG Pre-Assessment Diagnosis/Proposed Procedure Planned Operative Procedure(s): (B) Diathesis repair, fat grafting, POSSIBLE MESH PLACEMENT Anesthesia History 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 When Was Last Pacemaker Check QUESTION #4 FULL TEXT: You/Your Family Experience fever (hyperthermia) with Anesthesia Last Oral Intake Last Oral intake: Last Oral Intake NPO since 20:00 11/23/24 06:20 Meds taken in AM with sips of Yes 11/23/24 06:20 water? Meds patient instructed to omeprazole, see chart 11/23/24 06:20 take am of surgery PONV PONV - merchandise coordinator: PONV - merchandise coordinator Female Yes 11/09/24 10:17 HX of Motion Sickness Yes 11/09/24 10:17 HX of N/V After Surgery No 11/09/24 10:17 Non-Smoker Yes 11/09/24 10:17 Duration of Surgery greater Yes 11/09/24 10:17 than 60 minutes Number of Risk Factors 4 11/09/24 10:17 PONV Score Severe Risk 11/09/24 10:17 Height & Weight Height & Weight: Anesthesia: Height & Weight Height 5 ft 5 in 11/23/24 06:20 Weight: 83 kg 11/23/24 06:20 Body Mass Index (BMI) 30.4 11/23/24 06:20 Respiratory Assessment Respiratory Assessment - merchandise coordinator: Respiratory Tract Infection Hx - merchandise coordinator Hx Respiratory Tract Infection No 11/09/24 10:17 STOP Sleep Apnea STOP Sleep Apnea - merchandise coordinator: STOP Sleep Apnea - merchandise coordinator Hx Hypertension No 11/09/24 10:17 Hx Sleep Apnea No 11/09/24 10:17 CPAP BIPAP Do you snore loudly (louder No 11/09/24 10:17 than talking or can be heard Do you often feel tired/ No 11/09/24 10:17 fatigued/ sleepy during daytime? Has anyone observed you stop No 11/09/24 10:17 breathing during sleep? STOP Results Negative 11/09/24 10:17 QUESTION #5 FULL TEXT : Do you snore loudly (louder than talking or can be heard through closed doors)? 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 Specify any problems Hx of Preganancy in last 3 No 11/09/24 10:17 Months Nurse Filling Out Transfusion VCHRISTIN 11/09/24 10:17 & Questions: Date: 11/09/24 11/09/24 10:17 Time: 10:18 11/09/24 10:17 Patient unable to answer at this time (ie. confused, unrespo /Reproduction History /Reproductive History - merchandise coordinator: /Reproductive Hx- merchandise coordinator Hx Now No 11/09/24 10:17 Gestational Age (in weeks): EDC: Hx Hx Para Hx Section SAB No 11/09/24 10:17 Active Medications Active Medications: Current Medications Generic Name Dose Route Start Last Admin Trade Name Freq PRN Reason Stop Dose Admin Clindamycin Phosphate 900 mg in 50 mls @ 75 mls/hr 11/23/24 07:30 Cleocin IV 11/23/24 08:09 INTRAOP ONE Lactated Ringer's 1,000 mls @ 15 mls/hr 11/23/24 06:00 11/23/24 06:26 IV 15 mls/hr .Q48H DINORAH Administration PFSH Medical History Deformity of reconstructed breast GERD (gastroesophageal reflux disease) Resistance to other single specified antibiotic History of bilateral removal of breast implants Infection of breast implant Exposed breast implant Failed skin graft Failure of flap graft Methicillin resistant Staphylococcus epidermidis infection Nonhealing surgical wound PONV (postoperative nausea and vomiting) Cancer phobia Wears contact lenses Wears glasses Alcohol use Migraine headache Prophylactic ovary removal Prophylactic breast removal 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 Genetic susceptibility to malignant neoplasm of breast Cancer phobia Monoallelic mutation of DEISY gene Family history of breast cancer Former smoker Ptosis of both breasts Pneumonia Frequent headaches Allergies Home Medications ?Medication ?Instructions ?Recorded ?Last Taken ?Type ibuprofen 800 mg tablet 800 mg PO Q12H PRN PRN Migraine 03/28/22 03/24/24 History Headache omeprazole 40 mg capsule,delayed 40 mg PO DAILY gerd 03/28/22 11/23/24 History release sumatriptan succinate 100 mg tablet 100 mg PO PRN PRN MIGRAINE 03/28/22 Unknown History valacyclovir 500 mg tablet 500 mg PO DAILY cold sores 03/28/22 11/22/24 History ondansetron 4 mg disintegrating 4 mg PO Q8H PRN nausea and 04/03/24 Unknown Rx tablet vomiting #10 tabs ascorbate calcium (vitamin C) 500 500 mg PO QDAY 11/03/24 11/22/24 History mg tablet calcium carbonate 500 mg PO QDAY 11/03/24 11/22/24 History cholecalciferol (vitamin D3) 25 25 mcg PO QDAY 11/03/24 11/22/24 History mcg (1,000 unit) capsule magnesium 200 mg tablet 200 mg PO QDAY 11/03/24 11/22/24 History multivitamin 1 tab PO QAM 11/03/24 11/22/24 History zinc gluconate 100 mg tablet 100 mg PO QDAY 11/03/24 11/22/24 History Allergy/AdvReac Type Severity Reaction Status Date / Time Penicillins (PCN) Allergy Hives, RASH Verified 11/23/24 06:18 Family History Grandmother Breast cancer Aunt Breast cancer Father Diabetes Surgical History History of reconstruction of both breasts History of breast implant removal Hx of breast reconstruction History of prophylactic mastectomy of both breasts Status post implant removal from both breasts History of reconstruction of both breasts Hx of bilateral mastectomy History of placement of ear tubes History of bilateral breast implants Status post bilateral breast reconstruction Status post bilateral mastectomy History of bilateral oophorectomy History of bladder surgery History of hysterectomy Social History Smoking Status: Former smoker alcohol intake: current substance use type: does not use additional social history: Does Not Take Aspirin Does Take Ibuprofen As Needed Review of Systems (Anesthesia) ROS Narrative System reviewed and no additional complaints, except as documented.
--- NOTE | 2024-11-23 07:21 | PCM.HP.STD ---
HPI - General HPI Narrative SANG MAIN, is a 48 F who underwent bilateral mastectomies and implant-base reconstruction for positive gene mutation (prophylactic) with Dr. Barrett in January 2023. Her postop was complicated by pain and contracture, worse on the right side than the left. In Mar, 2024 she underwent bilateral breast implant removal and capsulectomy bilateral with Dr. Arias. Jul, 2024 Pre-Operative Diagnosis: S/p breast reconstruction with bilateral MAKENNA flaps Post-Operative Diagnosis: Same Surgery/Procedure Performed: 1) Bilateral breast reconstruction revision, including removal of skin paddles (CPT: 31362 x 2 with 50 modifier) 2) Fat grafting to the left breast, 80 cc, fat grafting to the right breast, 80 cc (CPT: 80197 and 97334 x 3 units) 3) Excision of hypertrophic abdominal scar, 15 x 1 cm (53359) 4) Intermediate closure of abdominal scar excision site, 15 cm (CPT: 34160) 5) Kenalog injection, umbilicus hypertrophic scar She was followed for closely and was healing well however CT abdomen was ordered to assess for possible diastasis recti. Imaging showed small periumbilical hernia (fat-containing 1 cm). General surgery will be present during the procedure in case this needs any repair specifically (discussed with Dr. Turcios). Dr. Allen discussed surgical plan including risks, benefits, and alternatives and she wished to proceed. 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 Genetic susceptibility to malignant neoplasm of breast Cancer phobia Monoallelic mutation of DEISY gene Family history of breast cancer Former smoker Ptosis of both breasts Pneumonia Frequent headaches Allergies Home Medications ?Medication ?Instructions ?Recorded ?Last Taken ?Type ibuprofen 800 mg tablet 800 mg PO Q12H PRN PRN Migraine 03/28/22 03/24/24 History Headache omeprazole 40 mg capsule,delayed 40 mg PO DAILY gerd 03/28/22 11/23/24 History release sumatriptan succinate 100 mg tablet 100 mg PO PRN PRN MIGRAINE 03/28/22 Unknown History valacyclovir 500 mg tablet 500 mg PO DAILY cold sores 03/28/22 11/22/24 History ondansetron 4 mg disintegrating 4 mg PO Q8H PRN nausea and 04/03/24 Unknown Rx tablet vomiting #10 tabs ascorbate calcium (vitamin C) 500 500 mg PO QDAY 11/03/24 11/22/24 History mg tablet calcium carbonate 500 mg PO QDAY 11/03/24 11/22/24 History cholecalciferol (vitamin D3) 25 25 mcg PO QDAY 11/03/24 11/22/24 History mcg (1,000 unit) capsule magnesium 200 mg tablet 200 mg PO QDAY 11/03/24 11/22/24 History multivitamin 1 tab PO QAM 11/03/24 11/22/24 History zinc gluconate 100 mg tablet 100 mg PO QDAY 11/03/24 11/22/24 History Allergy/AdvReac Type Severity Reaction Status Date / Time Penicillins (PCN) Allergy Hives, RASH Verified 11/23/24 06:18 Family History Grandmother Breast cancer Aunt Breast cancer Father Diabetes Surgical History History of reconstruction of both breasts History of breast implant removal Hx of breast reconstruction History of prophylactic mastectomy of both breasts Status post implant removal from both breasts History of reconstruction of both breasts Hx of bilateral mastectomy History of placement of ear tubes History of bilateral breast implants Status post bilateral breast reconstruction Status post bilateral mastectomy History of bilateral oophorectomy History of bladder surgery History of hysterectomy Social History Smoking Status: Former smoker alcohol intake: current substance use type: does not use additional social history: Does Not Take Aspirin Does Take Ibuprofen As Needed Vital Signs Vital Signs Vital Signs: 11/23/24 06:20 11/23/24 06:20 11/23/24 06:51 Temperature 98 F 98 F Temperature Source Temporal Pulse Rate 70 70 Respiratory Rate 16 16 Respiratory Pattern Normal Blood Pressure 133/67 H 133/67 H Blood Pressure Mean 89 Blood Pressure Source Monitor Blood Pressure Position Semi-Fowlers Blood Pressure Location Left Arm Pulse Ox 94 94 Oxygen Delivery Method Room Air Room Air Weight Weight: 182 lb 15.739 oz Body Mass Index (BMI) 30.4 Physical Exam Narrative Also see Dr. Allen;s exam from 11/21 Alert and oriented, comfortable in no acute distress No respiratory distress or respiratory effort Skin is warm and dry, moves all extremities spontaneously and smoothly Assessment & Plan Assessment/Plan (1) Diastasis of rectus abdominis: PLAN: Plan Admit for inpatient care and routine posoperative care.
[2024-11-23] MEDS: Midazolam 2 MG/2 ML Syringe IV (07:30)
--- NOTE | 2024-11-23 07:30 | SCAR_PTH ---
PATIENT: SANG MAIN LOC: MS3 U#:[id number] AGE/SX: 48/F ROOM: [facility] [place], [place] RE11/23/[address]: Dr. Marlon Allen MD : 1975 BED: 1 DIS: 11/25/2024 SPEC #: [id number] RECD: 11/23/24 14:44 STATUS: RYLAND REMark Anthony #: [id number] SHIRA: 11/23/24 07:[address]: Marlon Allen DEPT: SURGICAL PATHOLOGY RECD BY: Ab Melendez ENTERED: 11/24/24 08:09 SP TYPE: Scar OTHR DR: Dr. Amanda Hyatt MD Tissues: A - CICATRIX/SCAR Procedures: Surgery Specimen Level II HEADER OPERATION: Diathesis repair, fat grafting, mesh placement PRE-OP DIAGNOSIS: Diastasis of rectus abdominis TISSUE SUBMITTED: A- Bilateral breast scars *tag on right scar* MICROSCOPIC DIAGNOSIS A. Skin, bilateral breast, scars, excision: - Scar, focal seborrheic keratosis (left). - Scar, focal foreign body granuloma (right). MICROSCOPIC DESCRIPTION Slides are reviewed. GROSS DESCRIPTION A. Received in formalin labeled with the patient's name and date of . Designated as bilateral breast scars are 2 bagley, elongated elliptical portions of skin, with a suture designated as right scar, measuring 13.6 x 1.2 cm (left) and 15.5 x 0.9 cm (right). There is a 0.4 x 0.3 cm hyperpigmented, slightly raised possible lesion on the epidermal surface of the left portion of skin. Custody Assistant sections are submitted in 2 cassettes as follows:A1: Left skin, including possible lesionA2: Right skin DE 11/23/2024 CPT:[id number]
[2024-11-23] MEDS: Lidocaine 1% (5 ml sdv) 5 ML Vial IV (07:36)
[2024-11-23] MEDS: Bupiv/Epi 0.25% 30 ML Vial (08:00)
[2024-11-23] MEDS: Lidocaine 1% /Epi 1:100 (20ml) 20 ML Vial (08:00)
[2024-11-23] MEDS: TAS 0.05% 1000 mls w/ LR OPERA.SITE (08:00)
[2024-11-23] MEDS: fentaNYL 100 MCG/2 ML Ampul 200 MCG IV (08:19)
[2024-11-23] MEDS: Lactated Ringers 2,000 ML 2000 ML IV (09:15)
--- NOTE | 2024-11-23 11:55 | PCM.POST.ANE ---
Anesthesia: Postop Eval I Current Vital Signs Temperature: 97.7 F Pulse Rate: 90 Blood Pressure: 111/56 Respiratory Rate: 16 Pulse Ox: 93 Oxygen Delivery Method: Nasal Cannula Oxygen Flow Rate (L/min): 4 Assessment Airway patent: Yes Spontaneous unlabored respirations: Yes Mental status: Asleep nausea: No Vomiting: No Anesthesia Complication: No Fluid Hydration Crystalloid volume administer (ml): 1,900 Total IV fluid infused: 1,900 Progress Note Anesthesia document: Postop Eval 1 completed: Yes
--- NOTE | 2024-11-23 13:04 | POSTOPAN2_ITS ---
Anesthesia Postop Eval I Sum Postop Eval Completion status Anesthesia document: Postop Eval 1 completed: Yes Anesthesia Postop Eval I Summary Anesthesia Postop Eval I Summary: Anesthesia Postop Eval I: Assessment Summary Airway patent Yes 11/23/24 11:56 [email or web address] Spontaneous unlabored Yes 11/23/24 11:56 [email or web address] respirations Mental status Asleep 11/23/24 11:56 [email or web address] nausea No 11/23/24 11:56 [email or web address] Vomiting No 11/23/24 11:56 [email or web address] Anesthesia Postop Eval I: Fluid Summary Crystalloid volume administer 1,900 11/23/24 11:56 [email or web address] (ml) Colloids volume administered ( ml) Blood Product volume administered (ml) Total IV fluid infused 1,900 11/23/24 11:56 [email or web address] Anesthesia Postop Eval I: Summary Notes Anesthesia Complication No 11/23/24 11:56 [email or web address] Anesthesia Complication Comment: Post-operative progress note Anesthesia: Postop Eval II Evaluation Mental status: Awake and Calm Pain Level: 1 nausea: No Vomiting: No Complications Anesthesia Complication: No
--- NOTE | 2024-11-23 13:04 | PCM.POSTANE2 ---
Anesthesia Postop Eval I Sum Postop Eval Completion status Anesthesia document: Postop Eval 1 completed: Yes Anesthesia Postop Eval I Summary Anesthesia Postop Eval I Summary: Anesthesia Postop Eval I: Assessment Summary Airway patent Yes 11/23/24 11:56 [email or web address] Spontaneous unlabored Yes 11/23/24 11:56 [email or web address] respirations Mental status Asleep 11/23/24 11:56 [email or web address] nausea No 11/23/24 11:56 [email or web address] Vomiting No 11/23/24 11:56 [email or web address] Anesthesia Postop Eval I: Fluid Summary Crystalloid volume administer 1,900 11/23/24 11:56 [email or web address] (ml) Colloids volume administered ( ml) Blood Product volume administered (ml) Total IV fluid infused 1,900 11/23/24 11:56 [email or web address] Anesthesia Postop Eval I: Summary Notes Anesthesia Complication No 11/23/24 11:56 [email or web address] Anesthesia Complication Comment: Post-operative progress note Anesthesia: Postop Eval II Evaluation Mental status: Awake and Calm Pain Level: 1 nausea: No Vomiting: No Complications Anesthesia Complication: No
--- NOTE | 2024-11-23 14:26 | OP.PCM_ITS ---
Operative Report (Standard) Operative Information Date of Procedure: 11/23/24 Pre-Operative Diagnosis: 1) Diastasis Recti 2) S/p MAKENNA flap breast reconstruction Post-Operative Diagnosis: Same Surgery/Procedure Performed: 1) repair of diastases recti (interrupted 0- Ethibond sutures followed by Phasix resorbable mesh onlay) 2) Fat grafting to the bilateral breasts with inferior breast scar revision uc architect: Yes Life Cycle Assessment Analyst: Pamela Berman Tasks completed by care team assistant: Closing Type of Anesthesia: General/Supplemental (800 cc of tumescent solution (solution of 950 cc of LR, 50 cc of 1% lidocaine, and 1 mg of epinephrine) (for liposuction) and 20 cc of 0.25% Marcaine (along incisions)) RN Documented Start/Stop Times: Operation Date: 11/23/24 07:30 Case Time Into Pre-Op 11/23/24 05:55 Anesthesia Start 11/23/24 07:30 Into Room 11/23/24 07:30 Out of Pre-Op 11/23/24 07:30 Procedure Start 11/23/24 07:53 Procedure End 11/23/24 11:36 Anesthesia End 11/23/24 11:46 Out of Room 11/23/24 11:46 Into Recovery 11/23/24 11:48 Out of Recovery 11/23/24 13:44 Procedure Start Time: 07:53 Procedure Stop Time: 11:36 Select all DRAINS/GRAFTS/IMPLANTS that apply: Drains (Abdominal drain) Drain details: 19 Micronesian Anjel drain Estimated Blood Loss: 50 cc Specimen collected: Yes Description of specimen(s) removed: Right and left breast skin Description of surgery: Indications: Patient is a delightful 48-year-old female status post MAKENNA flap bilateral breast reconstruction. She has a recurrence of her diastases at the donor site, which was previously repaired with PDS suture. Presents today for breast reconstruction revision with fat grafting bilaterally, as well as improvement of the inferior breast scar, as well as repair of the rectus diastases. She understands the risks, benefits, and alternatives to the repair. Procedure details: Patient was correct identified and marked in preoperative holding. She was taken back to the operating room where she was administered general anesthesia and prepped and draped in sterile fashion. All proper timeouts were performed. The above-noted tumescent solution was injected through stab incisions on the abdomen and in the medial thighs bilaterally. 15 blade scalpel was used to make an incision along the previous abdominal donor site incision and around the umbilicus. Bovie electrocautery was used to dissect down to the abdominal wall and a standard abdominoplasty flap was elevated to the level of the xiphoid. Dr. Turcios (general surgery) was present for assistance with the umbilicus where there was concern for an umbilical hernia, but this was not seen by myself or Dr. Turcios Clinically during the case, and therefore no repair was performed. Next the diastases was marked with a marking pen and repaired using double layer horizontal mattress interrupted 0 Ethibond sutures above and below the umbilicus. A phasix absorbable mesh was then used as an onlay around the umbilicus and on the anterior abdominal wall underneath the abdominoplasty flap (8 x 10 inch onlay mesh trimmed to fit) and sutured into place with 3-0 Monocryl STRATAFIX and 3-0 Vicryl to reinforce our diastases repair. Attention was then turned to liposuction. 500 cc of Lipo aspirate was obtained from the flanks bilaterally and the medial thighs using the safe technique with separation using a basket cannula followed by aspiration with a 4 mm Susan cannula and fat evening using the basket cannula again. The medial thigh sites were closed with 3-0 Monocryl interrupted sutures. The fat was filtered using the Tiny Prints system. The inferior horizontal IMF breast incisions were lowered using a 15 blade scalpel to de-epithelialized and inferiorly based flap of tissue measuring approximately 2 x 15 cm bilaterally, which was then sutured to the chest wall using a 3-0 PDS for interrupted sutures. The right breast was then fat grafted with 90 cc of fat in the left breast with 30 cc of fat to fill an existing contour irregularities and areas requiring more fullness including the upper pole. The superior breast incision site was then sutured to the inferior breast incision site beneath the area of existing de-epithelialized skin that had been advanced down to the chest wall. We set the patient up and had an acceptable inferior breast contour and therefore closed these incisions with 3-0 Monocryl deep dermal sutures followed by 3-0 Monocryl running subcuticular sutures and Prineo tape. The abdomen was then closed with 2-0 Vicryl interrupted sutures in the Carlyn's fascia followed by 3-0 Monocryl deep dermal sutures and 3-0 Monocryl running subcuticular sutures. The closure was performed over 119 Micronesian Anjel drain. The patient tolerated the procedure well. Prineo tape was applied over the incisions. She was awakened and taken to the PACU in stable condition in both the breast and abdominal binder. Surgical assistants: Dr. Tam MD (present since concern for umbilical hernia) SUE Mott (assisted with retracting and closure) Surgical Findings: Diastases recti of approximately 6 cm which was repaired Liposuction * 500 cc of Lipo aspirate obtained * 90 cc fat grafted into the right breast, 30 cc in the left breast Complications Complications: No
[2024-11-23] MEDS: Clindamycin 900 MG/50 ML BAG 75 MG IV ×3 (14:27→23:30)
[2024-11-23] MEDS: HYDROmorphone 0.5 MG/0.5 ML SYRINGE IV (15:23)
[2024-11-23] MEDS: 0.9% Saline Lock 10 ML Syringe IV ×2 (15:24→16:57)
--- NOTE | 2024-11-23 21:36 | NURSING ---
Pt walked to nurses station and returned back to bed. Pt void
[2024-11-24 02:02] VITALS: BP 123/60; PULSE 80; RESP 16; TEMP 36.8; O2SAT 94
[2024-11-24 06:13] VITALS: BP 114/62; PULSE 82; RESP 16; TEMP 36.8; O2SAT 95
[2024-11-24] MEDS: Clindamycin 900 MG/50 ML BAG 75 MG IV ×3 (06:15→17:53)
[2024-11-24 08:14] VITALS: BP 111/55; PULSE 75; RESP 18; TEMP 36.7; O2SAT 94
[2024-11-24] MEDS: Zinc Sulfate 50 mg zinc (220 mg) ORAL capsule 100 MG PO (08:24)
[2024-11-24] MEDS: Cholecalciferol (VIT D3) 25 MCG TABLET (1,000 UNITS) PO (08:24)
[2024-11-24] MEDS: Calcium (Elemental) 500 MG Tablet PO (08:25)
--- NOTE | 2024-11-24 10:53 | PCM.PN.SRG ---
Subjective Subjective Patient seen this morning with Dr. Allen at bedside. She was sitting up in her chair. She notes expected postoperative pain especially her abdominal wall. She has not passed gas yet. She reports decreased appetite but denies nausea, vomiting, deep abdominal pain, diarrhea. No plastics concerns overnight. Objective Data Objective Data Vital Signs: Vital Signs Temp Pulse Resp BP Pulse Ox O2 Del Method O2 Flow Rate 98.1 F 75 18 111/55 L 94 Room Air 2 11/24/24 08:14 11/24/24 08:14 11/24/24 08:14 11/24/24 08:14 11/24/24 08:14 11/24/24 08:14 11/23/24 15:55 Oxygen Flow Rate (L/min) 2 Oxygen Delivery Method Room Air Weight: 182 lb 15.739 oz Body Mass Index (BMI) 30.4 Intake & Output: Intake and Output for Last 24 Hours 11/22/24 11/23/24 11/24/24 23:59 23:59 23:59 Intake Total 220 / 220 100 / 100 Output Total 475 / 475 Balance -255 / -255 90 / 90 Physical Exam Narrative Afebrile/VSS. Sitting in room chair in no acute distress. Overlying dressings removed without significant saturation Expected postoperative swelling of abdomen and bilateral breast. No rigid abdomen noted. Umbillicus is pink, well perfused. Ambulated back to bed without assistance RODOLFO drain output 85cc overnight. Assessment & Plan Assessment/Plan (1) Diastasis of rectus abdominis: (2) S/P breast reconstruction: PLAN: Plan POD #1 Diastasis recti repair, bilateral MAKENNA flap breast reconstruction - Continue IV clindamycin for surgical prophylaxis - Pain control: per MAY. Optimize nonnarcotics - Drain output: 85ml, keep in place. - Encouraged fluids, ambulation, to promote BM - OK to have abdominal binder while in bed. Should have it on when ambulating or out of bed. - Asked RN to have materials bring larger size of bra - DVT ppx: SCD's, SQ Lovenox to start today - Will plan on keeping her tonight for pain control, advance bowel meds and reassess for possible DC tomorrow. Charges/Coding Procedures Integumentary [id number]: [id number] Global Visit
[2024-11-24] MEDS: Polyethylene Glycol 3350 17 GM PACKET PO (11:34)
--- NOTE | 2024-11-24 12:52 | CASEMGMT ---
RN CM to pt room, pt visitor states pt is sleeping and requested RN CM to check back.
[2024-11-24 14:15] VITALS: BP 122/67; PULSE 94; RESP 18; TEMP 36.6; O2SAT 96
[2024-11-24] MEDS: 0.9% Saline Lock 10 ML Syringe IV (15:05)
[2024-11-24 19:39] VITALS: BP 124/63; PULSE 88; RESP 16; TEMP 36.6; O2SAT 94
[2024-11-24 22:53] VITALS: BP 119/60; PULSE 81; RESP 16; TEMP 36.8; O2SAT 94
[2024-11-25 05:47] VITALS: BP 104/59; PULSE 61; RESP 16; TEMP 36.8; O2SAT 92
[2024-11-25] MEDS: Zinc Sulfate 50 mg zinc (220 mg) ORAL capsule 100 MG PO (08:21)
[2024-11-25] MEDS: Cholecalciferol (VIT D3) 25 MCG TABLET (1,000 UNITS) PO (08:21)
[2024-11-25] MEDS: Polyethylene Glycol 3350 17 GM PACKET PO (08:22)
[2024-11-25] MEDS: Calcium (Elemental) 500 MG Tablet PO (08:22)
[2024-11-25 08:31] VITALS: BP 115/67; PULSE 77; RESP 16; TEMP 36.8; O2SAT 95
--- NOTE | 2024-11-25 09:48 | DS.PCM_ITS ---
Providers Date of Admission: 11/23/24 Date of Discharge: 11/25/24 Primary Care Physician: Dr. Amanda Hyatt MD Reason For Visit: Diathesis repair, fat grafting Diagnosis Discharge Diagnosis (1) Diastasis of rectus abdominis: Status: Acute Code(s): M62.08 - Separation of muscle (nontraumatic), other site (2) S/P breast reconstruction: Status: Acute Code(s): Z98.890 - Other specified postprocedural states Plan POD #2 Diastasis recti repair, bilateral MAKENNA flap breast reconstruction - Pain well controlled on oral regimen, will discharge home today. - Will prescribe oral Clindamycin for surgical prophylaxis, and oral oxycodone as needed for pain. - Drain: will discharge home with drain. Record output twice daily and bring paper to follow up - Encouraged fluids, ambulation, to promote BM - OK to have abdominal binder while in bed. Should have it on when ambulating or out of bed. - Wear loose fitting but supportive bra and monitor for abrasions. - See patient instructions for detailed patient instructions Medications at Discharge Home Medications ibuprofen 800 mg tablet 800 mg PO Q12H PRN PRN Migraine Headache 03/28/22 omeprazole 40 mg capsule,delayed release 40 mg PO DAILY gerd 03/28/22 sumatriptan succinate 100 mg tablet 100 mg PO PRN PRN MIGRAINE 03/28/22 valacyclovir 500 mg tablet 500 mg PO DAILY cold sores 03/28/22 ondansetron 4 mg disintegrating tablet 4 mg PO Q8H PRN nausea and vomiting #10 tabs 04/03/24 ascorbate calcium (vitamin C) 500 mg tablet 500 mg PO QDAY 11/03/24 calcium carbonate 500 mg PO QDAY 11/03/24 cholecalciferol (vitamin D3) 25 mcg (1,000 unit) capsule 25 mcg PO QDAY 11/03/24 magnesium 200 mg tablet 200 mg PO QDAY 11/03/24 multivitamin 1 tab PO QAM 11/03/24 zinc gluconate 100 mg tablet 100 mg PO QDAY 11/03/24 clindamycin HCl 300 mg capsule (Cleocin HCl) 300 mg PO TID 5 days #15 caps 11/25/24 oxycodone 5 mg tablet 5 mg PO Q8H PRN pain 5 days #20 tabs 11/25/24 Hospital Course Operations - (1) repair of diastases recti (interrupted 0-Ethibond sutures followed by Phasix resorbable mesh onlay) 2) Fat grafting to the bilateral breasts with inferior breast scar revision) Summary of Care Provided Hospital Course: Patient underwent above-mentioned surgery with surgical drain placement on 11/23/[address] Allen without apparent intraoperative complications. She was transferred to PACU and awoke from anesthesia without issues. Patient was kept overnight for observation. She was on IV clindamycin for surgical prophylaxis. On postop day 1 her pain was not well-controlled that she was kept overnight. Incentive spirometer was ordered and encouraged use and subcutaneous Lovenox was ordered however patient declined administration. She continued mechanical DVT prophylaxis with SCDs. She was counseled on risks of forming blood clots during her postop period. Today she is postop day 2 she was seen with Dr[address] Allen and wound RN at bedside. She is sitting up in bed states her pain is much better, she has been ambulating in her room frequently. She has not passed gas but denies abdominal pain, nausea, vomiting. Her bowel meds were advanced yesterday. She feels comfortable managing it at home and states it usually takes her several days before she has a bowel movement after surgeries. Physical Exam Narrative Afebrile/VSS. Sitting up in her bed in no acute distress. Examined with Dr. Allen and wound RN. Bilateral breast, abdominal, umbillcus and liposuction sights are clean, dry, intact Drain output 30ml overnight. Leave in place Lower extremities without edema, erythema, nontender to touch SCD's in place. Weight / BMI Weight Weight: 182 lb 15.739 oz Body Mass Index (BMI) 30.4 D/C Instructions DC O2, CPAP, BIPAP Needs Home O2 Discharge instructions: No Please Follow Up With: Jesse Harmon PA When: 12/01/24 Meaningful Use Info Meaningful Use Meaningful Use Diagnoses (Choose all that apply): None applicable Discharge Plan Admission Admit Date/Time: 11/23/24 08:01 Primary Reason for Your Visit: Yusuf breast revision with fat grafting, diastasis recti repair with mesh Attending Provider: Marlon Allen Primary Care Provider: Amanda Hyatt Instructions Additional Instructions / Restrictions: Operations Performed: 1) repair of diastases recti (interrupted 0-Ethibond fairchild/tures followed by Phasix resorbable mesh onlay) / 2) Fat grafting to the bilateral breasts with inferior breast scar revision on 11/23/[address] Allen Instructions for My Care at Home or Healthcare Facility The following instructions will help you know what to expect in the days following surgery. These are general instructions. Your surgeon and therapist may give you special instructions, which vary to some degree based on your specific procedure -- follow those as directed. Do not, however, hesitate to call if you have any questions or concerns. Splint Care/Dressing Care/Wound Care * Dressings - You may have a dressing over the operative site. * If the dressing feels too tight after you get home, it is ok to gently pull on the dressing to stretch it out/loosen it. * Avoid smoking or other tobacco products. Smoking tobacco impairs wound healing and increases the risks of post-operative complications. * Tape over your incisions (if present) will fall off on its own - Wear slightly loose fitting bra and monitor for any abrasions or pressure from the bra - Record output from drain twice daily ? Activities * For the first 4 weeks after surgery, try to balance your activity, allowing time for rest. * Avoid lifting, pushing, or pulling anything over 5 pounds. * Do not drive or operate heavy machinery within 24 hrs of surgery or while taking narcotic pain medication.? * Encourage walking sligtly hunched forward. Try walking every hour during wake hours. Pain Control/Medications * If you received an anesthetic block, your hand or arm may be numb for several hours. You will be discharged to home with medications, including an oral pain medication (analgesic). Rest and elevation are still one of the most important factors for pain control. Take your pain medication as needed, but do not wait for the pain to become out of control. * For severe pain, you may take prescription pain medication as directed, but please note that this may also contain Tylenol (e.g. Percocet). Do not take more than 4000mg of Tylenol (acetaminophen) from all sources daily.? * Pain medication may cause some lethargy, nausea, and or constipation. You should not drive/operate dangerous machinery while taking these medications. If these or other symptoms become significantly problematic, please your surgeon's office. * If prescribed oral antibiotics (Keflex, Clindamycin, or others), please take prescription for full duration as instructed. You should not have any pills remaining once completed (refills are written for your convenience should the course need to be extended, but generally they are not required). * Increase fluid intake, take constipation meds daily until bowel meds return to normal. Seek medical attention if you develop nausea, vomiting, abdominal pain. Diet (what I can eat): Resume normal diet as before Follow up * We will follow up in the Plastics office on 12/01 Follow-up appointment reminders:? (A list of any scheduled appointments is at the end of this document)? At your earliest convenience, please call [phone] to confirm/schedule a follow-up appointment with [ ] in clinic. When to call your surgeon: * If any signs of surgical site infection develop: redness, pus, pain, increased swelling or foul odor at the incision site, fever, cold and clammy skin, or confusion. * Consistent temperature above 101?F (38.3?C). * The affected area gets swollen or much more painful. * You have excessive bleeding from surgical site (soaking through). If you experience difficulty breathing and/or shortness of breath, seek immediate medical attention. If experiencing any of the above complications or if you have any questions, call [phone] Discharge Orders/Prescriptions Prescriptions: New oxycodone 5 mg tablet 5 mg PO Q8H PRN (Reason: pain) 5 Days Qty: 20 0RF clindamycin HCl [Cleocin HCl] 300 mg capsule 300 mg PO TID 5 Days Qty: 15 0RF No Action cholecalciferol (vitamin D3) 25 mcg (1,000 unit) capsule 25 mcg PO QDAY ascorbate calcium (vitamin C) 500 mg tablet 500 mg PO QDAY multivitamin Tablet 1 tab PO QAM calcium carbonate 500 mg calcium (1,250 mg) tablet,chewable 500 mg PO QDAY zinc gluconate 100 mg tablet 100 mg PO QDAY magnesium 200 mg tablet 200 mg PO QDAY ibuprofen 800 mg tablet 800 mg PO Q12H PRN PRN (Reason: Migraine Headache) Patient Comments: TAKE 1 TABLET BY MOUTH THREE TIMES A DAY NEEDED sumatriptan succinate 100 mg tablet 100 mg PO PRN PRN (Reason: MIGRAINE) Patient Comments: TAKE 1 TABLET FOR MIGRAINE RELIEF. MAY REPEAT 2 HOURS LATER. MAXIMUM 200MG/DAY. valacyclovir 500 mg tablet 500 mg PO DAILY Patient Comments: TAKE 1 TABLET BY MOUTH EVERY DAY omeprazole 40 mg capsule,delayed release(DR/EC) 40 mg PO DAILY Patient Comments: TAKE 1 CAPSULE BY MOUTH EVERY DAY ondansetron 4 mg tablet,disintegrating 4 mg PO Q8H PRN (Reason: nausea and vomiting) Qty: 10 0RF Referrals / Follow Up: Amanda Hyatt MD [Primary Care Provider] - Jesse Harmon PA [Med Staff - [facility]] - 12/01/24 Disposition Disposition (needs filled in before D/C Order can be placed): Home, Self Care Charges/Coding Procedures Integumentary [id number]: [id number] Global Visit
--- NOTE | 2024-11-25 10:15 | CASEMGMT ---
RASHID CM into pt room, pt sitting up in bed in no distress. Pt states she has had drains in the past and is comfortable caring for them at home. Pt denies any homegoing needs.
--- NOTE | 2024-11-25 11:13 | PHA.DC.COU.R ---
Pharmacy [facility] has performed discharge medication counseling for this patient. The patient was counseled on the following discharge medications and changes in medications for homegoing review. - Oxycodone 5 mg tablet, clindamycin 300 mg capsule The Reason for Use, instructions for use, and potential side effects were reviewed for all new medications. The patient's questions regarding all of their medications were answered. The patient was able to verbally demonstrate an understanding of their discharge medications. Medications at Discharge Home Medications ibuprofen 800 mg tablet 800 mg PO Q12H PRN PRN Migraine Headache 03/28/22 omeprazole 40 mg capsule,delayed release 40 mg PO DAILY gerd 03/28/22 sumatriptan succinate 100 mg tablet 100 mg PO PRN PRN MIGRAINE 03/28/22 valacyclovir 500 mg tablet 500 mg PO DAILY cold sores 03/28/22 ondansetron 4 mg disintegrating tablet 4 mg PO Q8H PRN nausea and vomiting #10 tabs 04/03/24 ascorbate calcium (vitamin C) 500 mg tablet 500 mg PO QDAY 11/03/24 calcium carbonate 500 mg PO QDAY 11/03/24 cholecalciferol (vitamin D3) 25 mcg (1,000 unit) capsule 25 mcg PO QDAY 11/03/24 magnesium 200 mg tablet 200 mg PO QDAY 11/03/24 multivitamin 1 tab PO QAM 11/03/24 zinc gluconate 100 mg tablet 100 mg PO QDAY 11/03/24 clindamycin HCl 300 mg capsule (Cleocin HCl) 300 mg PO TID 5 days #15 caps 11/25/24 oxycodone 5 mg tablet 5 mg PO Q8H PRN pain 5 days #20 tabs 11/25/24
== END 2024-11-25 13:16 | disposition home or self-care (01) ==
LOC: AC 12:56 → SDC 12:57 → MS3 12:57
PROVIDERS: Admitting Provider Surgery Plastic and Reconstructive Surgery; PCP Family Medicine; Referring Provider Surgery Plastic and Reconstructive Surgery; Visit Provider Surgery Plastic and Reconstructive Surgery
PROC: 0JB80ZZ Excision of Abdomen Subcutaneous Tissue and Fascia, Open Approach (ICD-10-PCS; CPT 15830; principal; 2024-11-23 07:15)
DX: M62.08 Separation of muscle (nontraumatic), other site (principal); Z87.891 Personal history of nicotine dependence; K21.9 Gastro-esophageal reflux disease without esophagitis; N65.0 Deformity of reconstructed breast; F45.29 Other hypochondriacal disorders; Z79.899 Other long term (current) drug therapy
CPT/HCPCS: 22999; 15772; 15771; 00400; 88302; 88304; 94668; 96365; 96366; 96375; 96376; 99221; A4216; G0378; J2405